=== PATIENT | male | born 1950 | race Caucasian/White ===

== ENCOUNTER 2019-11-02 14:58 | Emergency (ER) | payer MEDICARE, OTHER ==
[~2019-11-02] VITALS: Ht 195.6 cm; Wt 90.7 kg
[2019-11-02 15:04] VITALS: BP 128/80
--- NOTE | 2019-11-02 15:04 | NUR ---
ED Nurse Note: pt brought in LOS am[facility] from [facility] for j tube malfunction. PT also has a G tube, but G tube is patient.
--- NOTE | 2019-11-02 15:22 | NUR ---
ED Nurse Note: ermd at bedside assessing j tube and g tube at this time.
--- NOTE | 2019-11-02 15:46 | NUR ---
ED Nurse Note: g tube placed by ERMD at bedside.
--- NOTE | 2019-11-02 15:49 | Emergency Room Report ---
History of Present Illness General Chief Complaint: Malfunctioning Gastric Tube Source: Patient Present Illness HPI Patient presents with reports of malfunctioning feeding tube upon evaluation and the patient's J-tube does not function appropriately And is not able to be flushed patient himself is on tracheostomy however he is not Ventilator dependent however the patient is nonverbal History of present illness does remain limited there was no reports of vomiting or diarrhea no reports of any fevers Patient relies on the feeding tube for medications and feeding Allergies: Coded Allergies: No Known Allergies (Unverified , 11/02/19) COVID-19 Screening Contact w/high risk pt: No Recent Travel to affected area: No Experienced COVID-19 symptoms?: No COVID-19 symptoms experienced: Cough Patient History Limited by: medical condition Past Medical History: see triage record Reviewed Nursing Documentation: PMH: Agreed; PSxH: Agreed Nursing Documentation-PMH Past Medical History: No History, Except For Hx Hypertension: Yes - a flutter History Of Psychiatric Problem: Yes - anxiety Hx Seizures: Yes Review of Systems All Other Systems: limited - Other than the ones mentioned in the history of present illness all others are reviewed however they do stay limited due to the patient's mental status Physical Exam Vital Signs Date Time Temp Pulse Resp B/P (MAP) Pulse Ox O2 Delivery O2 Flow Rate FiO2 11/02/19 14:58 97.2 89 18 130/80 (97) 97 T-piece 5.0 Sp02 EP Interpretation: reviewed, normal General Appearance: no apparent distress Head: normocephalic, atraumatic Eyes: bilateral eye PERRL ENT: EOM grossly intact Neck: supple, other - Tracheostomy in place no crepitus Respiratory: lungs clear, no respiratory distress, no retraction Cardiovascular #1: regular rate, rhythm Gastrointestinal: non tender, soft, other - JG tube in place Musculoskeletal: other - Chronically debilitated moves upper extremity minimally Neurologic: responsive - Sickle stimuli patient has eyes open Skin: other - No obvious erythema around the feeding tube site Lymphatic: no adenopathy Medical Decision Making Diagnostic Impression: Primary Impression: Malfunction of gastrostomy tube Additional Impression: g tube placement ER Course The JG tube was evaluated the jejunal aspect does not appear to flush The tube does not show any signs of erythema or decay Case was discussed with the patient's Primary physician who is accepting of a new G-tube being placed For the patient to be able to have appropriate care at nursing facility At this time there are no outpatient OR cases being performed And no inpatient capacity at inpatient hospital status with full capacity and significant covid-19 admissions Therefore in the usual manner balloon was deflated from the existing catheter Feeding tube removed area cleansed and prepped A 22 Yemeni G-tube was placed through the stoma without any resistance Balloon inflated and a imaging is obtained for positioning confirmation Patient tolerated procedure well and is transferred back to nursing facility Other X-Ray Diagnostic Results Other X-Ray Diagnostic Results : X-Ray ordered: kub # of Views/Limited Vs Complete: 1 View Indication: Other - tube placement EP Interpretation: Yes Interpretation: no soft tissue swelling, nonspecific bowel gas, other - No signs of extravasation Impression: Other - No signs of extravasation Electronically Signed by: Marline Woodson DO Last Vital Signs Date Time Temp Pulse Resp B/P (MAP) Pulse Ox O2 Delivery O2 Flow Rate FiO2 11/02/19 15:04 97.5 84 18 128/80 98 T-piece 5.0 Status: improved Disposition: SNF Condition: Improved Referrals: Nikita Devlin MD (PCP) Patient Instructions: Gastrostomy Tube Home Guide, Adult Additional Instructions: Please contact primary physician for further orders upon arrival Marline Woodson DO Nov 02, 2019 15:49
--- NOTE | 2019-11-02 16:03 | NUR ---
ED Nurse Note: g tube placement confirmation x ray taken at bedside.
--- NOTE | 2019-11-02 16:55 | Diagnostic Imaging Report ---
Indication: Status post gastrostomy placement Technique: Supine view of the abdomen after injection of water-soluble contrast into gastrostomy Comparison: none Findings: Contrast opacifies the stomach. No contrast extravasation is demonstrated. The bowel gas pattern is unremarkable. An inferior vena cava filter is also noted Impression: Satisfactory position of gastrostomy tube Inferior vena cava filter incidentally noted
[2019-11-02 17:13] VITALS: BP 132/72
--- NOTE | 2019-11-02 17:13 | NUR ---
ED Nurse Note: pt in bed awake, alert, no acute distress is noted. VSS as docuented. pt is currently waiting for transportation to go back to [facility].
--- NOTE | 2019-11-02 18:27 | NUR ---
ED Nurse Note: Pt on bed, awake and alert on stable condition. NAD.
--- NOTE | 2019-11-02 18:50 | NUR ---
ER DISCHARGE NOTE: pt was piced up by [facility] ambulance. pt was then transported to [facility] via [facility] in stable condition. Report given to ambulance personnel.
[2019-11-02 18:52] VITALS: BP 128/76
== END 2019-11-02 18:50 ==
LOC: EDBD 14:58 → EMR 15:22
DX: K94.23 Gastrostomy malfunction (principal); R05 Cough; G40.909 Epilepsy, unspecified, not intractable, without status epilepticus; F41.9 Anxiety disorder, unspecified
CPT/HCPCS: 74018; 99283

== ENCOUNTER 2020-07-13 23:43 | Inpatient (IN) | payer MEDICARE, OTHER ==
[~2020-07-13] VITALS: Ht 162.6 cm; Wt 77.6 kg
--- NOTE | 2020-07-13 23:45 | NUR ---
ED Nurse Note: brought in by ambulance fernandod ra 42 from home c/o respiratory distress. presents with trach shiley 4 uncuffed. per ems, unable to suction trach. rhonchi noted. patient recently dc from snf to home 2 days ago; diagnosed with pna. changed into gown; attached to monitor. pt obtunded; opens eyes spontaneously; unable to track movements; unresponsive to pain. tachycardic 140s; temp 99.3 febrile. rt at bedside; suctioned secretions; spo2 94%. all safety measures met.
--- NOTE | 2020-07-13 23:59 | Emergency Room Report ---
History of Present Illness General Chief Complaint: Dyspnea/Respdistress Source: Medical Record, EMS Present Illness HPI This is a 69-year-old male who has a history of CVA. He is contracted with tracheostomy and a feeding tube. He presents with chief complaint respiratory distress. Patient was recently in a assisted and was taken out by his 2 days ago. According to EMS, she called 911 because he had a hard time suctioning him and his oxygenation was dropping. Unable to get any other history from this patient because of his condition and nonverbal status. No reported fever chills but no reported nausea vomiting or diarrhea. Allergies: Coded Allergies: No Known Allergies (Unverified , 11/02/19) COVID-19 Screening Contact w/high risk pt: No Recent Travel to affected area: No Experienced COVID-19 symptoms?: Yes COVID-19 symptoms experienced: Cough COVID-19 Testing performed DREDGEMASTER: No Patient History Past Medical History: see triage record, old chart reviewed, HTN, AFib, CVA/TIA Past Surgical History: other Pertinent Family History: none Social History: Denies: smoking Immunizations: other Reviewed Nursing Documentation: PMH: Agreed; PSxH: Agreed Nursing Documentation-PMH Hx Hypertension: Yes - a flutter Hx Gastrointestinal Problems: Yes - gerd Hx Seizures: Yes Review of Systems Respiratory: Reports: shortness of breath All Other Systems: limited - Secondary to nonverbal status and medical condition Physical Exam Vital Signs Date Time Temp Pulse Resp B/P (MAP) Pulse Ox O2 Delivery O2 Flow Rate FiO2 07/13/20 23:47 99.3 140 30 140/90 (107) 93 Trach Collar Vitals with hypoxia Sp02 EP Interpretation: reviewed, abnormal General Appearance: alert, mild distress, Chronically Ill Head: normocephalic, atraumatic Eyes: bilateral eye PERRL, bilateral eye EOMI ENT: hearing grossly normal, normal pharynx Neck: no meningismus, tracheotomy - Copious amount of secretion at trach site Respiratory: chest non-tender, rhonchi Cardiovascular #1: regular rate, rhythm, no murmur Gastrointestinal: normal bowel sounds, non tender, no mass, no organomegaly, no bruit, non-distended Musculoskeletal: other - Contracted Neurologic: other Psychiatric: other Medical Decision Making Diagnostic Impression: Primary Impression: HCAP (healthcare-associated pneumonia) Additional Impressions: Acute respiratory failure with hypoxia Pleural effusion, left UTI (urinary tract infection) Qualified Codes: N30.00 - Acute cystitis without hematuria Anemia Qualified Codes: D64.9 - Anemia, unspecified ER Course This patient presents with acute respiratory failure with hypoxia. Chest x-ray show left lower lobe infiltrate and effusion. Covid is negative. Antibiotics given. Will admit for further work-up. I contacted Dr. Devlin for admission. EKG Diagnostic Results Troponin ordered: Yes Rate: tachycardiac Rhythm: NSR ST Segments: other - NSST changes Rhythm Strip Diag. Results Rate: 100 Rhythm: NSR, no PVC's, no ectopy Chest X-Ray Diagnostic Results Chest X-Ray Diagnostic Results : Chest X-Ray Ordered: Yes # of Views/Limited/Complete: 1 View Indication: Shortness of Breath EP Interpretation: Yes Interpretation: no pneumothorax, other - RLL infiltrate and effusion Impression: Other - LLL infiltrate Electronically Signed by: Dylan Farooq MD Last Vital Signs Date Time Temp Pulse Resp B/P (MAP) Pulse Ox O2 Delivery O2 Flow Rate FiO2 07/13/20 23:47 99.3 140 30 140/90 (107) 93 Trach Collar Status: improved Disposition: ADMITTED INPATIENT Condition: Serious Dylan Farooq MD Jul 13, 2020 23:59
[2020-07-14] VITALS (9 sets, daily range): BP systolic 103–140; BP diastolic 50–90
[2020-07-14] MEDS ORDERED: Albuterol ud Inhalation HHN PRN
--- NOTE | 2020-07-14 | NUR ---
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 valles inserted per ermd. blood, initial lactic, blood cultures, urine, mrsa vre cre covid swab collected; sent down to lab. gt present; flushed and patent. skin alterations noted to sacral and bilateral lower legs; wound photo taken and uploaded.
[2020-07-14] MEDS ORDERED: Cefepime HCl 1 GM in D5W 55 ML IVPB ONE (00:15)
[2020-07-14 00:28] LABS: BASOPHILS % (AUTO) 0.7 % (0.0-2.0); EOSINOPHILS % (AUTO) 3.7 % (0.0-3.0); HEMATOCRIT 24.2 % (42.0-52.0); LYMPHOCYTES % (AUTO) 20.6 % (20.0-45.0); MEAN CORPUSCULAR VOLUME 81 FL (80-99); MONOCYTES % (AUTO) 6.8 % (1.0-10.0); NEUTROPHILS % (AUTO) 68.2 % (45.0-75.0); PLATELET COUNT 464 K/UL (150-450); RED BLOOD COUNT 2.98 M/UL (4.70-6.10); RED CELL DISTRIBUTION WIDTH 20.3 % (11.6-14.8); WHITE BLOOD COUNT 7.5 K/UL (4.8-10.8)
[2020-07-14] MEDS ORDERED: CHILDREN'S160 MG/56 GT ×2 (00:35→00:36)
[2020-07-14] MEDS ORDERED: URECHOLINE25 MG GT (00:38)
[2020-07-14] MEDS ORDERED: ATORVASTATIN CA80 MG GT (00:39)
[2020-07-14] MEDS ORDERED: BISACODYL5 MG GT (00:39)
[2020-07-14] MEDS ORDERED: ERTAPENEM1 GM IJ (00:40)
[2020-07-14 00:49] LABS: ANION GAP 3 mmol/L (5-15); BLOOD UREA NITROGEN 23 mg/dL (7-18); CALCIUM 8.6 MG/DL (8.5-10.1); CARBON DIOXIDE 33 MMOL/L (21-32); CHLORIDE 115 MMOL/L (98-107); CREATININE 1.1 MG/DL (0.55-1.30); POTASSIUM 4.3 MMOL/L (3.5-5.1); SODIUM 151 MMOL/L (136-145)
[2020-07-14 00:54] LABS: APPEARANCE,URINE SLIGHTLY CLOUDY; BILIRUBIN, URINE NEGATIVE (NEGATIVE); GLUCOSE, URINE (UA) NEGATIVE (NEGATIVE); KETONES,URINE NEGATIVE (NEGATIVE); LEUKOCYTE ESTERASE ,URINE 3+ (NEGATIVE); NITRITE,URINE NEGATIVE (NEGATIVE); PH,URINE 7 (4.5-8.0); PROTEIN,URINE 2+ (NEGATIVE); UROBILINOGEN,URINE NORMAL MG/DL (0.0-1.0)
--- NOTE | 2020-07-14 00:54 | Diagnostic Imaging Report ---
EXAM: XR Chest, 1 View CLINICAL HISTORY: SOB TECHNIQUE: Frontal view of the chest. COMPARISON: No relevant prior studies available. FINDINGS: Lungs: Hazy left lung attenuation could be due to consolidation, pulmonary edema; correlate with presentation. Retrocardiac atelectasis without or with consolidation. Pleural space: Small-moderate left pleural effusion with passive atelectasis. No pneumothorax. Heart: Unremarkable. No cardiomegaly. Mediastinum: Unremarkable. Bones/joints: No acute abnormality Tubes, lines and devices: Tracheostomy. Right upper extremity PICC tip in the mid SVC. IMPRESSION: 1. Tracheostomy. 2. Right upper extremity PICC tip in the mid SVC. 3. Small-moderate left pleural effusion with passive atelectasis. 4. Hazy left lung attenuation could be due to consolidation, pulmonary edema; correlate with presentation. 5. Retrocardiac atelectasis without or with consolidation. 6. Recommend CT chest with IV contrast to further characterize these findings.
[2020-07-14 00:55] LABS: INR 1.2 (0.9-1.1)
[2020-07-14 01:01] LABS: COLOR,URINE YELLOW
[2020-07-14 01:04] LABS: ALANINE AMINOTRANSFERASE 22 U/L (12-78); ALBUMIN 1.3 G/DL (3.4-5.0); ALBUMIN/GLOBULIN RATIO 0.2 (1.0-2.7); ALKALINE PHOSPHATASE 120 U/L (46-116); ASPARTATE AMINO TRANSFERASE 22 U/L (15-37); BILIRUBIN,TOTAL 0.2 MG/DL (0.2-1.0); CKMB 3.5 NG/ML (0.0-3.6); CREATINE KINASE 252 U/L (26-308); FERRITIN 601 NG/ML (8-388); LACTATE DEHYDROGENASE 122 U/L (81-234)
[2020-07-14] MEDS ORDERED: FAMOTIDINE20 MG GT (01:09)
[2020-07-14] MEDS ORDERED: FERROUS SU220 MG/53 GT (01:11)
[2020-07-14] MEDS ORDERED: ATROPINE SU1 MG/1 M1 SL (01:13)
[2020-07-14] MEDS ORDERED: FLEET ENEMA133 ML RECTAL (01:13)
[2020-07-14] MEDS ORDERED: MILK OF MA2400 MG/10 GT (01:18)
[2020-07-14] MEDS ORDERED: ACIDOPHILUS1 EAC6 GT (01:18)
[2020-07-14] MEDS ORDERED: METOPROLOL TART25 MG GT (01:18)
[2020-07-14] MEDS ORDERED: LEVETIRACETAM500 MG GT (01:18)
[2020-07-14] MEDS ORDERED: PROCHLORPERAZINE5 MG GT (01:21)
[2020-07-14] MEDS ORDERED: TERAZOSIN HCL1 MG GT (01:22)
[2020-07-14] MEDS ORDERED: POLYETHYLENE GL17 GM GT (01:22)
[2020-07-14] MEDS ORDERED: VITAMIN D325 MC1 GT (01:24)
[2020-07-14] MEDS ORDERED: ASCORBIC ACID500 MG GT (01:24)
[2020-07-14] MEDS ORDERED: ZINC SULFATE220 M1 GT (01:25)
[2020-07-14] MEDS ORDERED: Acetaminophen 650mg/20.3ml ONE (01:31)
[2020-07-14] MEDS ORDERED: Acetaminophen 650mg/20.3ml GT ONE (01:45)
[2020-07-14] MEDS ORDERED: Acetaminophen 650 MG SUPP RECTAL PRN ×2 (03:45→13:30)
--- NOTE | 2020-07-14 04:00 | NUR ---
ED Nurse Note: am labs collected; sent down to lab.
[2020-07-14 04:57] LABS: HEMATOCRIT 21.8 % (42.0-52.0); HEMOGLOBIN 7.1 G/DL (14.2-18.0); MEAN CORPUSCULAR VOLUME 81 FL (80-99); PLATELET COUNT 349 K/UL (150-450); RED BLOOD COUNT 2.68 M/UL (4.70-6.10); RED CELL DISTRIBUTION WIDTH 21.3 % (11.6-14.8); WHITE BLOOD COUNT 6.6 K/UL (4.8-10.8)
[2020-07-14 05:10] LABS: ANION GAP 1 mmol/L (5-15); BLOOD UREA NITROGEN 22 mg/dL (7-18); CALCIUM 7.9 MG/DL (8.5-10.1); CARBON DIOXIDE 33 MMOL/L (21-32); CHLORIDE 117 MMOL/L (98-107); CREATININE 1.1 MG/DL (0.55-1.30); POTASSIUM 4.1 MMOL/L (3.5-5.1); SODIUM 151 MMOL/L (136-145)
--- NOTE | 2020-07-14 07:01 | NUR ---
HAND-OFF: Report given to maryjane mcdowell. endorsed pending admission .
--- NOTE | 2020-07-14 07:02 | NUR ---
ED Nurse Note: Received report from Chirag Ramirez RN. Patient resting with eyes close, VSS at this time, all pictures for preassure unlcers were downloaded in to the computer.
--- NOTE | 2020-07-14 09:40 | NUR ---
ED Nurse Note: patient was transfered to room 01
--- NOTE | 2020-07-14 12:57 | History & Physical ---
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 Chief complaint was complaint respiratory distress, had difficulty suctioning patient. No reported fever chills but no reported nausea vomiting or diarrhea. Unable to get any other history - nonverbal status. Admitted with Pneumonia and small left pleural effusion, Covid 19 negative. 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 Past Surgical History: Craniotomy, Tracheostomy, G tube Pertinent Family History: NC Social History: NC All Other Systems: limited Objective Physical Exam Vital Signs Noted Date Time Temp Pulse Resp B/P (MAP) Pulse Ox O2 Delivery O2 Flow Rate FiO2 07/13/20 23:47 99.3 140 30 140/90 (107) 93 Trach Collar General Appearance: alert, mild distress, Chronically Ill Head: normocephalic, atraumatic Eyes: bilateral eye PERRL, bilateral eye EOMI ENT: hearing grossly normal, normal pharynx Neck: no meningismus, tracheotomy - Copious amount of secretion at trach site Respiratory: chest non-tender, rhonchi Cardiovascular: regular rate, rhythm, HS1, HS2 normal,no murmur Gastrointestinal: normal bowel sounds, non tender, no mass, no organomegaly, no bruit, non-distended Musculoskeletal: other - Contracted Neurologic: no focal signs noted,no seizures Medical Decision Making Impression: Healthcare-associated pneumonia Acute respiratory failure with hypoxia Tracheostomy status Pleural effusion, left-recurrent Urinary tract infection Anemia S/p previous Craniotomy, RCA occlusion, 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
--- NOTE | 2020-07-14 13:07 | NUR ---
ED Nurse Note: Patient resting with eyes close, VSS at this time, NAD noted
--- NOTE | 2020-07-14 15:00 | Consultation ---
DATE OF CONSULTATION: 07/14/2020 INFECTIOUS DISEASE CONSULTATION REFERRING PHYSICIAN: Dylan Augustine MD REASON FOR CONSULTATION: Pneumonia. HISTORY OF PRESENTING ILLNESS: This is a 69-year-old gentleman with history of hypertension, atrial fibrillation, CVA, who comes in with respiratory distress. He was found to have a pneumonia. His COVID-19 test is negative and an infectious disease consultation has been obtained for antibiotics. PAST MEDICAL HISTORY: 1. History of hypertension. 2. Atrial fibrillation. 3. CVA. 4. TIA. 5. GERD. SOCIAL HISTORY: Unknown. FAMILY HISTORY: Unknown. REVIEW OF SYSTEMS: Unable to obtain currently. MEDICATIONS: As an inpatient, he is on Tylenol and albuterol. ALLERGIES: No known drug allergies. PHYSICAL EXAMINATION: VITAL SIGNS: Temperature of 98.9, T-max of 99.3, pulse of 107, respiratory rate 28, blood pressure 105/51, O2 saturation of 99% on FiO2 of 40%. Examination deferred due to possibility of COVID-19. LABORATORY DATA: White count 6.6, hemoglobin 7.7, hematocrit 21.8, MCV 81, platelet count 349. Sodium 151, potassium 4.1, chloride 117, bicarb 33, BUN 22, creatinine 1.1, glucose 122, calcium 7.9. Total bilirubin 0.2, AST 22, ALT 22, alkaline phosphatase 120, LDH 122. CK 252, CK-MB 3.5. Troponin 0.052. C-reactive protein 17.5. Beta-natriuretic peptide 2727. Total protein 7.2, albumin 1.3. Lipase of 115. UA showing evl-gvxzaxcp-wp-count white cells. COVID-19 rapid test is negative. Chest x-ray showing small moderate left-sided pleural effusion with passive atelectasis with consolidation, retrocardiac atelectasis. ASSESSMENT: This is a 69-year-old gentleman with history of hypertension, atrial fibrillation, CVA, who comes in with respiratory distress and is found to have: 1. Possible aspiration pneumonia. His COVID-19 test is negative. 2. Urinary tract infection. 3. Hypertension. 4. Atrial fibrillation. PLAN: 1. Continue cefepime. 2. We will follow up cultures and adjust antibiotics accordingly. I would like to thank Dr. Dylan Augustine for this consultation. Kristie Reina M.D. DR: CORBY JOB#: [id number] CC: Dylan Augustine M.D.; [address] [place], [place] [address]; [place] [address]
--- NOTE | 2020-07-14 15:04 | NUR ---
PATIENTS DAUGHTER ANDREAS CALLED WANTED TO BE CALLED WHEN PATIENT GOES TO THE FLOOR TL#
[2020-07-14] MEDS: D5 1/2NS 1,000 ML IV SCH (17:29)
--- NOTE | 2020-07-14 19:18 | NUR ---
HAND-OFF: Report given to SELIN Grace.
--- NOTE | 2020-07-14 19:19 | NUR ---
ED Nurse Note: Patient awake on bed. RT at bedside for routine rounds. No signs of SOB/ noted
[2020-07-14] MEDS: Albuterol/Ipratropium 3ml neb HHN SCH (19:36)
[2020-07-14] MEDS: Atorvastatin 80mg tab ORAL SCH (21:08)
[2020-07-14] MEDS: Cefepime HCl 1 GM in D5W 55 ML IVPB SCH (21:09)
[2020-07-14] MEDS: Heparin 5000 units/ml inj SUBQ SCH (21:11)
[2020-07-14] MEDS: Amiodarone 200mg tab GT SCH (21:33)
[2020-07-14] MEDS: Doxycycline Hyclate 100 MG in D5W 110 ML IV SCH (21:47)
--- NOTE | 2020-07-14 23:10 | NUR ---
ED Nurse Note: Patient transferred to [facility]
[2020-07-15] MEDS: Albuterol/Ipratropium 3ml neb HHN SCH ×4 (00:49→20:14)
--- NOTE | 2020-07-15 02:36 | NUR ---
ED Nurse Note: Patient asleep on bed. No s/sx resp distress noted
[2020-07-15 02:37] VITALS: BP 124/68
[2020-07-15 05:49] VITALS: BP 131/72
--- NOTE | 2020-07-15 05:49 | NUR ---
ED Nurse Note: Admit labs sent
[2020-07-15 06:01] LABS: BASOPHILS % (AUTO) 0.8 % (0.0-2.0); EOSINOPHILS % (AUTO) 4.1 % (0.0-3.0); HEMATOCRIT 27.2 % (42.0-52.0); HEMOGLOBIN 8.4 G/DL (14.2-18.0); LYMPHOCYTES % (AUTO) 16.7 % (20.0-45.0); MEAN CORPUSCULAR VOLUME 85 FL (80-99); MONOCYTES % (AUTO) 6.6 % (1.0-10.0); NEUTROPHILS % (AUTO) 71.8 % (45.0-75.0); PLATELET COUNT 298 K/UL (150-450); RED BLOOD COUNT 3.19 M/UL (4.70-6.10); RED CELL DISTRIBUTION WIDTH 20.1 % (11.6-14.8); WHITE BLOOD COUNT 5.2 K/UL (4.8-10.8)
[2020-07-15 06:35] LABS: ALANINE AMINOTRANSFERASE 16 U/L (12-78); ALBUMIN 1.1 G/DL (3.4-5.0); ALBUMIN/GLOBULIN RATIO 0.2 (1.0-2.7); ALKALINE PHOSPHATASE 80 U/L (46-116); ANION GAP 3 mmol/L (5-15); ASPARTATE AMINO TRANSFERASE 14 U/L (15-37); BILIRUBIN,DIRECT 0.1 MG/DL (0.0-0.3); BILIRUBIN,TOTAL 0.3 MG/DL (0.2-1.0); BLOOD UREA NITROGEN 19 mg/dL (7-18); CARBON DIOXIDE 31 MMOL/L (21-32); CHLORIDE 117 MMOL/L (98-107); CREATININE 0.9 MG/DL (0.55-1.30); PHOSPHORUS 3.4 MG/DL (2.5-4.9); POTASSIUM 3.8 MMOL/L (3.5-5.1); SODIUM 151 MMOL/L (136-145)
--- NOTE | 2020-07-15 06:47 | NUR ---
Note yun in EDM - 07/15/20 at 0648 by [email or web address] ED Nurse Note: Patient transferred to bed 8. Breakfast served.
--- NOTE | 2020-07-15 07:05 | NUR ---
ED Nurse Note: received report from july briggs.
[2020-07-15 07:06] VITALS: BP 132/67
[2020-07-15] MEDS: Heparin 5000 units/ml inj SUBQ SCH (08:20)
[2020-07-15] MEDS: Doxycycline Hyclate 100 MG in D5W 110 ML IV SCH ×2 (08:21→23:12)
[2020-07-15] MEDS: Amiodarone 200mg tab GT SCH ×2 (08:21→21:42)
[2020-07-15] MEDS: Cefepime HCl 1 GM in D5W 55 ML IVPB SCH ×2 (08:22→21:44)
[2020-07-15] MEDS: Carvedilol 6.25mg Tab ORAL SCH ×2 (08:22→21:00)
[2020-07-15 09:28] VITALS: BP 110/56
--- NOTE | 2020-07-15 10:18 | NUR ---
ED Nurse Note: report given to july wilcox on tele unit.
--- NOTE | 2020-07-15 10:20 | NUR ---
ED Nurse Note: patient admitted to tele unit for HCAP. report given to july wilcox. vss at time of discharge, nad noted, on o2 via t-piece 10l with o2 sat at 100%. d51/2 ns running at 50ml/hr.
--- NOTE | 2020-07-15 12:27 | Infectious Diseases Prog Note ---
Assessment/Plan Assessment/Plan A: 1. Possible aspiration pneumonia. COVID19 test is negative. 2. Urinary tract infection. 3. Hypertension. 4. Atrial fibrillation. 5. anemia 6. S/p tracheostomy 7. s/p GT 8. Left pleural effusion PLAN: 1. Continue cefepime & Doxycycline 2. We will follow up cultures . Subjective ROS Limited/Unobtainable: Yes Constitutional: Denies: fever Allergies: Coded Allergies: No Known Allergies (Unverified , 11/02/19) Objective Last 24 Hour Vital Signs Date Time Temp Pulse Resp B/P (MAP) Pulse Ox O2 Delivery O2 Flow Rate FiO2 07/15/20 11:36 95 18 98 T-Piece 8.0 35 07/15/20 11:35 98 T-Piece 8.0 35 07/15/20 10:19 98.9 90 19 110/56 100 10.0 60 07/15/20 09:28 98.9 90 19 110/56 100 10.0 60 07/15/20 08:38 109 15 100 07/15/20 08:37 105 18 100 Cool Aerosol 10.0 60 07/15/20 08:22 102 124/62 07/15/20 08:11 105 18 Trach Collar 10.0 60 07/15/20 07:06 98.9 101 19 132/67 100 T-piece 10.0 35 07/15/20 05:49 98.9 104 20 131/72 100 10.0 35 07/15/20 02:37 98.9 105 20 124/68 100 10.0 35 07/15/20 00:48 84 18 100 T-Piece 10.0 35 81 17 100 07/15/20 00:47 100 T-Piece 10.0 35 07/14/20 23:20 98.9 101 21 131/70 100 10.0 35 07/14/20 19:47 98.9 110 20 129/66 100 10.0 35 07/14/20 19:36 89 20 100 T-Piece 10.0 35 88 22 100 07/14/20 17:10 98.9 102 28 126/65 99 10.0 40 07/14/20 13:07 98.9 100 28 121/61 99 10.0 40 07/14/20 13:00 100 Cool Aerosol 10.0 40 Height (Feet): 5 Height (Inches): 5.00 Weight (Pounds): 150 HEENT: status post trach Respiratory/Chest: lungs clear, other - on T bar Cardiovascular: normal rate, other - PICC line Abdomen: soft, non tender, other - GT feeding Extremities: no edema Skin: ulcers Neurologic/Psychiatric: aphasia, other - opens eyes Microbiology Date/Time Source Procedure Growth Status 07/14/20 00:00 Rectum Received 07/14/20 00:00 Blood Blood Culture - Preliminary NO GROWTH AFTER 24 HOURS Resulted 07/14/20 00:00 Blood Blood Culture - Preliminary NO GROWTH AFTER 24 HOURS Resulted 07/13/20 23:59 Nasopharynx SARS-CoV-2 RdRp Gene Assay - Final Complete 07/13/20 23:45 Urine,Clean Catch Urine Culture - Preliminary NO GROWTH Resulted Laboratory Tests Test 07/15/20 05:30 White Blood Count 5.2 K/UL (4.8-10.8) Red Blood Count 3.19 M/UL (4.70-6.10) L Hemoglobin 8.4 G/DL (14.2-18.0) L Hematocrit 27.2 % (42.0-52.0) L Mean Corpuscular Volume 85 FL (80-99) Mean Corpuscular Hemoglobin 26.4 PG (27.0-31.0) L Mean Corpuscular Hemoglobin Concent 30.9 G/DL (32.0-36.0) L Red Cell Distribution Width 20.1 % (11.6-14.8) H Platelet Count 298 K/UL (150-450) Mean Platelet Volume 5.8 FL (6.5-10.1) L Neutrophils (%) (Auto) 71.8 % (45.0-75.0) Lymphocytes (%) (Auto) 16.7 % (20.0-45.0) L Monocytes (%) (Auto) 6.6 % (1.0-10.0) Eosinophils (%) (Auto) 4.1 % (0.0-3.0) H Basophils (%) (Auto) 0.8 % (0.0-2.0) Sodium Level 151 MMOL/L (136-145) H Potassium Level 3.8 MMOL/L (3.5-5.1) Chloride Level 117 MMOL/L (98-107) H Carbon Dioxide Level 31 MMOL/L (21-32) Anion Gap 3 mmol/L (5-15) L Blood Urea Nitrogen 19 mg/dL (7-18) H Creatinine 0.9 MG/DL (0.55-1.30) Estimat Glomerular Filtration Rate > 60 mL/min (>60) Glucose Level 98 MG/DL (74-106) Calcium Level 8.0 MG/DL (8.5-10.1) L Phosphorus Level 3.4 MG/DL (2.5-4.9) Total Bilirubin 0.3 MG/DL (0.2-1.0) Direct Bilirubin 0.1 MG/DL (0.0-0.3) Aspartate Amino Transf (AST/SGOT) 14 U/L (15-37) L Alanine Aminotransferase (ALT/SGPT) 16 U/L (12-78) Alkaline Phosphatase 80 U/L (46-116) Troponin I 0.032 ng/mL (0.000-0.056) Total Protein 6.2 G/DL (6.4-8.2) L Albumin 1.1 G/DL (3.4-5.0) L Globulin 5.1 g/dL Albumin/Globulin Ratio 0.2 (1.0-2.7) L Thyroid Stimulating Hormone (TSH) 3.318 uiU/mL (0.358-3.740) Current Medications Medications (Trade) Dose Ordered Sig/Clive Route PRN Reason Start Time Stop Time Status Last Admin Dose Admin Acetaminophen (Tylenol) 650 mg Q4H PRN RECTAL Temp >100.5 07/14/20 13:30 08/13/20 13:29 Albuterol Sulfate (Proventil) 2.5 mg Q15MIN PRN HHN Shortness of Breath 07/14/20 00:00 07/14/20 00:03 Albuterol/ Ipratropium (Albuterol/ Ipratropium) 3 ml Q6HRT HHN 07/14/20 19:00 07/19/20 18:59 07/15/20 08:07 Amiodarone HCl (Cordarone) 200 mg Q12HR GT 07/14/20 21:00 10/12/20 20:59 07/15/20 08:21 Atorvastatin Calcium (Lipitor) 80 mg QHS ORAL 07/14/20 21:00 10/12/20 20:59 07/14/20 21:08 Carvedilol (Coreg) 6.25 mg EVERY 12 HOURS ORAL 07/15/20 09:00 08/14/20 08:59 07/15/20 08:22 Cefepime HCl 1 gm/ Dextrose 55 ml @ 110 mls/hr Q12HR IVPB 07/14/20 21:00 07/21/20 20:59 07/15/20 08:22 Dextrose/Sodium Chloride 1,000 ml @ 50 mls/hr Q20H IV 07/14/20 17:30 08/13/20 17:29 07/14/20 17:29 Doxycycline Hyclate 100 mg/ Dextrose 110 ml @ 110 mls/hr Q12HR IV 07/15/20 21:00 07/22/20 20:59 Famotidine (Pepcid I.v.) 20 mg Q12HR IVP 07/14/20 21:00 08/13/20 20:59 07/15/20 08:21 Finasteride (Proscar) 5 mg DAILY ORAL 07/15/20 09:00 10/13/20 08:59 07/15/20 08:21 Heparin Sodium (Porcine) (Heparin 5000 units/ml) 5,000 units EVERY 12 HOURS SUBQ 07/14/20 21:00 08/28/20 20:59 07/15/20 08:20 Levetiracetam (Keppra) 1,000 mg Q12HR ORAL 07/14/20 21:00 08/13/20 20:59 07/15/20 08:21 Steve Nelson MD Jul 15, 2020 12:27
[2020-07-15] MEDS: D5 1/2NS 1,000 ML IV SCH (13:30)
[2020-07-15] MEDS ORDERED: DULCOLAX10 MG RC (14:58)
[2020-07-15] MEDS ORDERED: ELIQUIS5 MG ORAL (14:58)
[2020-07-15] MEDS ORDERED: LEVETIRACE500 MG/51 GT (14:58)
[2020-07-15] MEDS ORDERED: VITAMIN C500 MG/11 PO (14:58)
[2020-07-15] MEDS ORDERED: ACIDOPHILUS1 EAC4 GT (14:58)
[2020-07-15] MEDS ORDERED: ATROPINE SULFAT15 ML SL (14:58)
[2020-07-15] MEDS ORDERED: COMPAZINE10 MG GT (14:58)
[2020-07-15] MEDS ORDERED: PROSCAR5 MG ORAL (14:58)
[2020-07-15 16:00] VITALS: BP 124/63
--- NOTE | 2020-07-15 17:53 | Consultation ---
History of Present Illness General Date patient seen: Jul 14, 2020 Chief Complaint: Dyspnea/Respdistress Reason for Consultation: ams Present Illness HPI Pt well nown to me, was being monitored at home for seizures. called my office that pt become SOB. history of CVA. He is contracted with tracheostomy and a feeding tube. He presents with chief complaint respiratory distress. Patient was recently in a group home and was taken out by his 2 days ago. According to EMS, she called 911 because he had a hard time suctioning him and his oxygenation was dropping. Unable to get any other history from this patient because of his co ndition and nonverbal status. No reported fever chills but no reported nausea vomiting or diarrhea. Allergies: Coded Allergies: No Known Allergies (Unverified , 11/02/19) Medication History Scheduled Acetaminophen Children's* (Tylenol Children's *), 20 ML GT Q4H, (Reported) Apixaban (Eliquis*), 5 MG ORAL BID, (Reported) Atorvastatin Calcium* (Lipitor*), 80 MG GT BEDTIME, (Reported) Bethanechol Chl (Bethanechol Chloride), 50 MG GT FOUR TIMES A DAY, (Reported) Cholecalciferol (Vitamin D3) (Vitamin D3*), 2,000 UNIT GT DAILY, (Reported) Famotidine* (Pepcid 20mg tablet*), 40 MG GT DAILY, (Reported) Finasteride* (Proscar*), 5 MG ORAL DAILY, (Reported) Levetiracetam (Levetiracetam), 10 ML GT BID, (Reported) Magnesium Hydroxide* (Milk Of Magnesia*), 30 ML GT DAILY, (Reported) Metoprolol Tartrate* (Metoprolol Tartrate*), 12.5 MG GT EVERY 12 HOURS, (Reported) Na Phos,M-B/Na Phos,Di-Ba* (Fleet Enema*), 133 ML RECTAL DAILY, (Reported) Terazosin Hcl* (Hytrin*), 2 MG GT BEDTIME, (Reported) Vit C/Ascorbate Ca/Ascorb Sod (Vitamin C 500 Mg/15 Ml Liquid), 500 MG PO DAILY, (Reported) Zinc Sulfate (Zinc Sulfate*), 220 MG GT DAILY, (Reported) Scheduled PRN Bisacodyl (Dulcolax), 10 MG RC DAILY PRN for CONSTIPATION, (Reported) Polyethylene Glycol 3350* (Polyethylene Glycol 3350*), 17 GM GT BEDTIME PRN for Constipation, (Reported) Prochlorperazine (Compazine*), 10 MG GT Q6H PRN for N/V, (Reported) Miscellaneous Medications Atropine Sulfate (Atropine Sulfate), 2 DROP SL, (Reported) Ferrous Sulfate (Ferrous Sulfate), 7.5 ML GT, (Reported) Lactobacillus Acidophilus (Acidophilus), 1 EACH GT, (Reported) Discontinued Medications Acetaminophen Children's* (Tylenol Children's *), 20 ML GT Q4H, (Reported) Discontinued Reason: Therapy completed Ascorbic Acid* (Ascorbic Acid*), 500 MG GT DAILY, (Reported) Discontinued Reason: Prescription changed Atropine Sulfate (Atropine Sulfate), 1 MG SL, (Reported) Discontinued Reason: Prescription changed Bisacodyl* (Dulcolax*), 10 MG GT DAILY, (Reported) Discontinued Reason: Prescription changed Ertapenem Sodium (Ertapenem), 1 GM IJ, (Reported) Discontinued Reason: Therapy completed Levetiracetam* (Levetiracetam*), 10 ML GT TWICE A DAY, (Reported) Discontinued Reason: Prescription changed Prochlorperazine Maleate* (Compazine*), 10 MG GT Q6H, (Reported) Discontinued Reason: Prescription changed Patient History Healthcare decision maker Resuscitation status Advanced Directive on File Physical Exam General Appearance: lethargic Lines, tubes and drains: peripheral HEENT: atraumatic Neck: supple Abdomen: soft Skin Exam: normal pigmentation Musculoskeletal: no effusion Last 24 Hour Vital Signs Date Time Temp Pulse Resp B/P (MAP) Pulse Ox O2 Delivery O2 Flow Rate FiO2 07/15/20 16:00 98.3 85 22 124/63 (83) 98 07/15/20 16:00 104 07/15/20 15:13 T-piece 10.0 07/15/20 13:47 96 18 98 T-Piece 8.0 35 95 17 96 07/15/20 11:36 95 18 98 T-Piece 8.0 35 07/15/20 11:35 98 T-Piece 8.0 35 07/15/20 10:19 98.9 90 19 110/56 100 10.0 60 07/15/20 09:28 98.9 90 19 110/56 100 10.0 60 07/15/20 08:38 109 15 100 07/15/20 08:37 105 18 100 Cool Aerosol 10.0 60 07/15/20 08:22 102 124/62 07/15/20 08:11 105 18 Trach Collar 10.0 60 07/15/20 07:06 98.9 101 19 132/67 100 T-piece 10.0 35 07/15/20 05:49 98.9 104 20 131/72 100 10.0 35 07/15/20 02:37 98.9 105 20 124/68 100 10.0 35 07/15/20 00:48 84 18 100 T-Piece 10.0 35 81 17 100 07/15/20 00:47 100 T-Piece 10.0 35 07/14/20 23:20 98.9 101 21 131/70 100 10.0 35 07/14/20 19:47 98.9 110 20 129/66 100 10.0 35 07/14/20 19:36 89 20 100 T-Piece 10.0 35 88 22 100 Intake and Output 07/14/20 07/15/20 19:00 07:00 Intake Total 700 ml Output Total 950 ml Balance -250 ml Intake Free Water 100 ml IV Total 600 ml Output Urine Total 950 ml Laboratory Tests Test 07/15/20 05:30 White Blood Count 5.2 K/UL (4.8-10.8) Red Blood Count 3.19 M/UL (4.70-6.10) L Hemoglobin 8.4 G/DL (14.2-18.0) L Hematocrit 27.2 % (42.0-52.0) L Mean Corpuscular Volume 85 FL (80-99) Mean Corpuscular Hemoglobin 26.4 PG (27.0-31.0) L Mean Corpuscular Hemoglobin Concent 30.9 G/DL (32.0-36.0) L Red Cell Distribution Width 20.1 % (11.6-14.8) H Platelet Count 298 K/UL (150-450) Mean Platelet Volume 5.8 FL (6.5-10.1) L Neutrophils (%) (Auto) 71.8 % (45.0-75.0) Lymphocytes (%) (Auto) 16.7 % (20.0-45.0) L Monocytes (%) (Auto) 6.6 % (1.0-10.0) Eosinophils (%) (Auto) 4.1 % (0.0-3.0) H Basophils (%) (Auto) 0.8 % (0.0-2.0) Sodium Level 151 MMOL/L (136-145) H Potassium Level 3.8 MMOL/L (3.5-5.1) Chloride Level 117 MMOL/L (98-107) H Carbon Dioxide Level 31 MMOL/L (21-32) Anion Gap 3 mmol/L (5-15) L Blood Urea Nitrogen 19 mg/dL (7-18) H Creatinine 0.9 MG/DL (0.55-1.30) Estimat Glomerular Filtration Rate > 60 mL/min (>60) Glucose Level 98 MG/DL (74-106) Calcium Level 8.0 MG/DL (8.5-10.1) L Phosphorus Level 3.4 MG/DL (2.5-4.9) Total Bilirubin 0.3 MG/DL (0.2-1.0) Direct Bilirubin 0.1 MG/DL (0.0-0.3) Aspartate Amino Transf (AST/SGOT) 14 U/L (15-37) L Alanine Aminotransferase (ALT/SGPT) 16 U/L (12-78) Alkaline Phosphatase 80 U/L (46-116) Troponin I 0.032 ng/mL (0.000-0.056) Total Protein 6.2 G/DL (6.4-8.2) L Albumin 1.1 G/DL (3.4-5.0) L Globulin 5.1 g/dL Albumin/Globulin Ratio 0.2 (1.0-2.7) L Thyroid Stimulating Hormone (TSH) 3.318 uiU/mL (0.358-3.740) Height (Feet): 5 Height (Inches): 5.00 Weight (Pounds): 150 Medications Current Medications Medications (Trade) Dose Ordered Sig/Clive Route PRN Reason Start Time Stop Time Status Last Admin Dose Admin Acetaminophen (Tylenol) 650 mg Q4H PRN RECTAL Temp >100.5 07/14/20 13:30 08/13/20 13:29 Albuterol/ Ipratropium (Albuterol/ Ipratropium) 3 ml Q6HRT HHN 12/28/20 19:00 07/19/20 18:59 07/15/20 13:00 Amiodarone HCl (Cordarone) 200 mg Q12HR GT 07/14/20 21:00 10/12/20 20:59 07/15/20 08:21 Atorvastatin Calcium (Lipitor) 80 mg QHS ORAL 07/14/20 21:00 10/12/20 20:59 07/14/20 21:08 Carvedilol (Coreg) 6.25 mg EVERY 12 HOURS ORAL 07/15/20 09:00 08/14/20 08:59 07/15/20 08:22 Cefepime HCl 1 gm/ Dextrose 55 ml @ 110 mls/hr Q12HR IVPB 07/14/20 21:00 07/21/20 20:59 07/15/20 08:22 Dextrose/Sodium Chloride 1,000 ml @ 50 mls/hr Q20H IV 07/14/20 17:30 08/13/20 17:29 07/14/20 17:29 Doxycycline Hyclate 100 mg/ Dextrose 110 ml @ 110 mls/hr Q12HR IV 07/15/20 21:00 07/22/20 20:59 Famotidine (Pepcid I.v.) 20 mg Q12HR IVP 07/14/20 21:00 08/13/20 20:59 07/15/20 08:21 Finasteride (Proscar) 5 mg DAILY ORAL 07/15/20 09:00 10/13/20 08:59 07/15/20 08:21 Heparin Sodium (Porcine) (Heparin 5000 units/ml) 5,000 units EVERY 12 HOURS SUBQ 07/14/20 21:00 08/28/20 20:59 07/15/20 08:20 Levetiracetam (Keppra) 1,000 mg Q12HR ORAL 07/14/20 21:00 08/13/20 20:59 07/15/20 08:21 Objective Narrative Head: normocophalic Neck: no rigidity EENT: benign Neurologic Exam Objective lethargic, pupils reactive not following withdraws to pain Assessment/Plan Problem List: (1) Malfunction of gastrostomy tube ICD Codes: K94.23 - Gastrostomy malfunction SNOMED: 845877950 (2) Anemia ICD Codes: D64.9 - Anemia, unspecified SNOMED: 198192682, 428135342 Qualifiers: Qualified Codes: D64.9 - Anemia, unspecified (3) Pleural effusion, left ICD Codes: J90 - Pleural effusion, not elsewhere classified SNOMED: 61087821, 343844847 (4) Acute respiratory failure with hypoxia ICD Codes: J96.01 - Acute respiratory failure with hypoxia SNOMED: 19954545, 862286994 (5) HCAP (healthcare-associated pneumonia) ICD Codes: J18.9 - Pneumonia, unspecified organism SNOMED: 875700377, 323977479 (6) UTI (urinary tract infection) ICD Codes: N39.0 - Urinary tract infection, site not specified SNOMED: 00049624, 260225146 Qualifiers: Qualified Codes: N30.00 - Acute cystitis without hematuria Assessment/Plan: (1) Malfunction of gastrostomy tube (2) Anemia (3) Pleural effusion, left (4) Acute respiratory failure with hypoxia (5) HCAP (healthcare-associated pneumonia) (6) UTI (urinary tract infection) Recurrent sepsis Possible aspiration Encephalopathy, acute on chronic rule out seizures map > 65 ro covid cont atb fu cultures no need for AED now Gerson Singh MD Jul 15, 2020 17:53
--- NOTE | 2020-07-15 18:12 | Pulmonology Progress Note ---
Subjective ROS Limited/Unobtainable: Yes Constitutional: Denies: fever Allergies: Coded Allergies: No Known Allergies (Unverified , 11/02/19) Objective Last 24 Hour Vital Signs Date Time Temp Pulse Resp B/P (MAP) Pulse Ox O2 Delivery O2 Flow Rate FiO2 07/15/20 16:00 98.3 85 22 124/63 (83) 98 07/15/20 16:00 104 07/15/20 15:13 T-piece 10.0 07/15/20 13:47 96 18 98 T-Piece 8.0 35 95 17 96 07/15/20 11:36 95 18 98 T-Piece 8.0 35 07/15/20 11:35 98 T-Piece 8.0 35 07/15/20 10:19 98.9 90 19 110/56 100 10.0 60 07/15/20 09:28 98.9 90 19 110/56 100 10.0 60 07/15/20 08:38 109 15 100 07/15/20 08:37 105 18 100 Cool Aerosol 10.0 60 07/15/20 08:22 102 124/62 07/15/20 08:11 105 18 Trach Collar 10.0 60 07/15/20 07:06 98.9 101 19 132/67 100 T-piece 10.0 35 07/15/20 05:49 98.9 104 20 131/72 100 10.0 35 07/15/20 02:37 98.9 105 20 124/68 100 10.0 35 07/15/20 00:48 84 18 100 T-Piece 10.0 35 81 17 100 07/15/20 00:47 100 T-Piece 10.0 35 07/14/20 23:20 98.9 101 21 131/70 100 10.0 35 07/14/20 19:47 98.9 110 20 129/66 100 10.0 35 07/14/20 19:36 89 20 100 T-Piece 10.0 35 88 22 100 Intake and Output 07/14/20 07/15/20 19:00 07:00 Intake Total 700 ml Output Total 950 ml Balance -250 ml Intake Free Water 100 ml IV Total 600 ml Output Urine Total 950 ml Microbiology Date/Time Source Procedure Growth Status 07/14/20 00:00 Rectum Received 07/14/20 00:00 Blood Blood Culture - Preliminary Resulted 07/14/20 00:00 Blood Blood Culture - Preliminary Resulted 07/13/20 23:59 Nasopharynx SARS-CoV-2 RdRp Gene Assay - Final Complete 07/13/20 23:45 Urine,Clean Catch Urine Culture - Preliminary NO GROWTH Resulted Laboratory Tests 07/15/20 05:30: White Blood Count 5.2, Red Blood Count 3.19L, Hemoglobin 8.4L, Hematocrit 27.2L, Mean Corpuscular Volume 85, Mean Corpuscular Hemoglobin 26.4L, Mean Corpuscular Hemoglobin Concent 30.9L, Red Cell Distribution Width 20.1H, Platelet Count 298, Mean Platelet Volume 5.8L, Neutrophils (%) (Auto) 71.8, Lymphocytes (%) (Auto) 16.7L, Monocytes (%) (Auto) 6.6, Eosinophils (%) (Auto) 4.1H, Basophils (%) (Auto) 0.8, Sodium Level 151H, Potassium Level 3.8, Chloride Level 117H, Carbon Dioxide Level 31, Anion Gap 3L, Blood Urea Nitrogen 19H, Creatinine 0.9, Estimat Glomerular Filtration Rate > 60, Glucose Level 98, Calcium Level 8.0L, Phosphorus Level 3.4, Total Bilirubin 0.3, Direct Bilirubin 0.1, Aspartate Amino Transf (AST/SGOT) 14L, Alanine Aminotransferase (ALT/SGPT) 16, Alkaline Phosphatase 80, Troponin I 0.032, Total Protein 6.2L, Albumin 1.1L, Globulin 5.1, Albumin/Globulin Ratio 0.2L, Thyroid Stimulating Hormone (TSH) 3.318 Current Medications Medications (Trade) Dose Ordered Sig/Clive Route PRN Reason Start Time Stop Time Status Last Admin Dose Admin Acetaminophen (Tylenol) 650 mg Q4H PRN RECTAL Temp >100.5 07/14/20 13:30 08/13/20 13:29 Albuterol/ Ipratropium (Albuterol/ Ipratropium) 3 ml Q6HRT HHN 07/14/20 19:00 07/19/20 18:59 07/15/20 13:00 Amiodarone HCl (Cordarone) 200 mg Q12HR GT 07/14/20 21:00 10/12/20 20:59 07/15/20 08:21 Atorvastatin Calcium (Lipitor) 80 mg QHS ORAL 07/14/20 21:00 10/12/20 20:59 07/14/20 21:08 Carvedilol (Coreg) 6.25 mg EVERY 12 HOURS ORAL 07/15/20 09:00 08/14/20 08:59 07/15/20 08:22 Cefepime HCl 1 gm/ Dextrose 55 ml @ 110 mls/hr Q12HR IVPB 07/14/20 21:00 07/21/20 20:59 07/15/20 08:22 Dextrose/Sodium Chloride 1,000 ml @ 75 mls/hr [id number] IV 07/14/20 17:30 08/13/20 17:29 07/14/20 17:29 Doxycycline Hyclate 100 mg/ Dextrose 110 ml @ 110 mls/hr Q12HR IV 07/15/20 21:00 07/22/20 20:59 Famotidine (Pepcid I.v.) 20 mg Q12HR IVP 07/14/20 21:00 08/13/20 20:59 07/15/20 08:21 Finasteride (Proscar) 5 mg DAILY ORAL 07/15/20 09:00 10/13/20 08:59 07/15/20 08:21 Heparin Sodium (Porcine) (Heparin 5000 units/ml) 5,000 units EVERY 12 HOURS SUBQ 07/14/20 21:00 08/28/20 20:59 07/15/20 08:20 Levetiracetam (Keppra) 1,000 mg Q12HR ORAL 07/14/20 21:00 08/13/20 20:59 07/15/20 08:21 Assessment/Plan Assessment/Plan Pulmonary Progress Note Subjective HPI: Patient is a 69 year old man, Tracheostomy status, s/p previous Craniotomy, RCA occlusion, CLINICAL EDITOR shunt, has Seizure history, GERD, GJ tube, h/o Hypertension, Atrial fibrillation,previous anemia, previous DVT and Pulmonary Embolism, recurrent left Pleural effusion. Chief complaint was complaint respiratory distr ess, had difficulty suctioning patient. No reported fever chills but no reported nausea vomiting or diarrhea. Nonverbal status. Admitted with Pneumonia and small left pleural effusion, Covid 19 negative. Allergies: No Known Allergies Medications: Noted Past Medical History: Tracheostomy status, s/p previous Craniotomy, RCA occlusion, CLINICAL EDITOR shunt, has Seizure history, GERD, GJ tube, h/o Hypertension, Atrial fibrillation,previous anemia, previous DVT and Pulmonary Embolism, recurrent left Pleural effusion. Past Surgical History: Craniotomy, Tracheostomy, G tube Pertinent Family History: NC Social History: NC All Other Systems: limited Objective Physical Exam Vital Signs Noted General Appearance: alert, mild distress, Chronically Ill Head: normocephalic, atraumatic Eyes: bilateral eye PERRL, bilateral eye EOMI ENT: hearing grossly normal, normal pharynx Neck: no meningismus, tracheotomy - Copious amount of secretion at trach site Respiratory: chest non-tender, rhonchi Cardiovascular: regular rate, rhythm, HS1, HS2 normal,no murmur Gastrointestinal: normal bowel sounds, non tender, no mass, no organomegaly, no bruit, non-distended Musculoskeletal: other - Contracted Neurologic: no focal signs noted,no seizures Medical Decision Making Impression: Healthcare-associated pneumonia Acute respiratory failure with hypoxia Tracheostomy status Pleural effusion, left-recurrent Urinary tract infection Anemia S/p previous Craniotomy, RCA occlusion, CLINICAL EDITOR shunt Seizure history GERD, dysphagia s/p GJ tube h/o Hypertension h/o Atrial fibrillation Previous DVT and Pulmonary Embolism, Plan IV Antibiotics IVF PRN J tube feeds O2 PRN HHN ID Consultation Neurology following Cardiology Consultation 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
[2020-07-15] MEDS: Eliquis 5mg tablet GT SCH (18:31)
--- NOTE | 2020-07-15 19:30 | NUR ---
NURSE NOTES: Received report from SELIN Junior; pt awake, non-verbal; noted asleep in room, opens eyes spontaneously; on tracheostomy 10L FiO2 35%, in no acute distress; MRSA, VRE, CRE swabs still pending; NPO on GT feeding Jevity 1.2 with goal of 60cc/hr; currently @ 40cc/hr; tolerating well without residual; with Right upper arm PICC line single lumen; with dressing intact and aptent infusing D51/2 ns @ 50CC/HR; WITH MULTIPLE SKIN PRESSURE ULCERS; WITH DRESSING INTACT; on turning and repositioning q 2 hrs; aspiration and seizure precautions with both upper side rails padded; no episode of seizures at this time; also with f/c 16 fr PLACED ON 07/14, INTACT AND PATENT DRAINING CKLEAR YELLOW URINE; will continue to monitor.
--- NOTE | 2020-07-15 19:31 | NUR ---
NURSE HAND-OFF REPORT: Important Events on Shift:[New admission, ] Patient Status: [Full code] Diet: [Jevity 1.2 @ 40cc/hr] Pending Orders: [] Pending Results/Labs:[] Pending MD notification:[] Latest Vital Signs: Temperature 98.3 , Pulse 104 , B/P 124 /63 , Respiratory Rate 22 , O2 SAT 98 , Trach Collar, O2 Flow Rate 10.0 . Vital Sign Comment: [] EKG Rhythm: Sinus Tachycardia Rhythm change?: N MD Notified?: - MD Response: Latest Ramirez Fall Score: 50 Fall Risk: High Risk Safety Measures: Call light , Bed Alarm Zone 2, Side Rails Side Rails x3, Bed position Low and Locked. Fall Precautions: Yellow Socks Yellow Gown Patient Fall Education Report given to [SELIN Squires].
--- NOTE | 2020-07-15 19:32 | NUR ---
NURSE NOTES: Patient came with Brain wave monitor from [facility]. Dr. Lang called and asked for patient to be disconnected and to give monitor to Yemi durability technician. Yemi came and picked up monitor.
[2020-07-15 20:00] VITALS: BP 107/60
[2020-07-15] MEDS: Atorvastatin 80mg tab ORAL SCH (21:42)
--- NOTE | 2020-07-15 23:37 | Cardiology Progress Note ---
Subjective DATE OF SERVICE: Jul 15, 2020 Withdrawn and poorly responsive Monitor: Sinus arrhythmia with PAC's and paroxysms of AFib. Troponins now normalized. Objective Last 24 Hour Vital Signs Date Time Temp Pulse Resp B/P (MAP) Pulse Ox O2 Delivery O2 Flow Rate FiO2 07/15/20 21:00 107 107/60 07/15/20 20:14 100 T-Piece 8.0 35 07/15/20 20:14 89 18 100 T-Piece 8.0 35 88 18 100 07/15/20 16:00 98.3 85 22 124/63 (83) 98 07/15/20 16:00 104 07/15/20 15:13 T-piece 10.0 07/15/20 13:47 96 18 98 T-Piece 8.0 35 95 17 96 07/15/20 11:36 95 18 98 T-Piece 8.0 35 07/15/20 11:35 98 T-Piece 8.0 35 07/15/20 10:19 98.9 90 19 110/56 100 10.0 60 07/15/20 09:28 98.9 90 19 110/56 100 10.0 60 07/15/20 08:38 109 15 100 07/15/20 08:37 105 18 100 Cool Aerosol 10.0 60 07/15/20 08:22 102 124/62 07/15/20 08:11 105 18 Trach Collar 10.0 60 07/15/20 07:06 98.9 101 19 132/67 100 T-piece 10.0 35 07/15/20 05:49 98.9 104 20 131/72 100 10.0 35 07/15/20 02:37 98.9 105 20 124/68 100 10.0 35 07/15/20 00:48 84 18 100 T-Piece 10.0 35 81 17 100 07/15/20 00:47 100 T-Piece 10.0 35 ROS: unchanged from 07/14/20 HEENT: Thick Trach secretions RHYTHM: NSR, ST, PACs, Afib LUNGS: bilateral rhonchi CARDIAC: normal S1 and S2, rapid rate, arrhythmia ABDOMEN: normal bowel sounds, soft, G-Tube intact EXTREMITIES: normal range of motion, non-tender, trace edema, other - withdrawn Laboratory Tests Test 07/15/20 05:30 White Blood Count 5.2 K/UL (4.8-10.8) Red Blood Count 3.19 M/UL (4.70-6.10) L Hemoglobin 8.4 G/DL (14.2-18.0) L Hematocrit 27.2 % (42.0-52.0) L Mean Corpuscular Volume 85 FL (80-99) Mean Corpuscular Hemoglobin 26.4 PG (27.0-31.0) L Mean Corpuscular Hemoglobin Concent 30.9 G/DL (32.0-36.0) L Red Cell Distribution Width 20.1 % (11.6-14.8) H Platelet Count 298 K/UL (150-450) Mean Platelet Volume 5.8 FL (6.5-10.1) L Neutrophils (%) (Auto) 71.8 % (45.0-75.0) Lymphocytes (%) (Auto) 16.7 % (20.0-45.0) L Monocytes (%) (Auto) 6.6 % (1.0-10.0) Eosinophils (%) (Auto) 4.1 % (0.0-3.0) H Basophils (%) (Auto) 0.8 % (0.0-2.0) Sodium Level 151 MMOL/L (136-145) H Potassium Level 3.8 MMOL/L (3.5-5.1) Chloride Level 117 MMOL/L (98-107) H Carbon Dioxide Level 31 MMOL/L (21-32) Anion Gap 3 mmol/L (5-15) L Blood Urea Nitrogen 19 mg/dL (7-18) H Creatinine 0.9 MG/DL (0.55-1.30) Estimat Glomerular Filtration Rate > 60 mL/min (>60) Glucose Level 98 MG/DL (74-106) Calcium Level 8.0 MG/DL (8.5-10.1) L Phosphorus Level 3.4 MG/DL (2.5-4.9) Total Bilirubin 0.3 MG/DL (0.2-1.0) Direct Bilirubin 0.1 MG/DL (0.0-0.3) Aspartate Amino Transf (AST/SGOT) 14 U/L (15-37) L Alanine Aminotransferase (ALT/SGPT) 16 U/L (12-78) Alkaline Phosphatase 80 U/L (46-116) Troponin I 0.032 ng/mL (0.000-0.056) Total Protein 6.2 G/DL (6.4-8.2) L Albumin 1.1 G/DL (3.4-5.0) L Globulin 5.1 g/dL Albumin/Globulin Ratio 0.2 (1.0-2.7) L Thyroid Stimulating Hormone (TSH) 3.318 uiU/mL (0.358-3.740) Microbiology Date/Time Source Procedure Growth Status 07/14/20 00:00 Rectum Received 07/14/20 00:00 Blood Blood Culture - Preliminary Resulted 07/14/20 00:00 Blood Blood Culture - Preliminary Resulted 07/13/20 23:59 Nasopharynx SARS-CoV-2 RdRp Gene Assay - Final Complete 07/13/20 23:45 Urine,Clean Catch Urine Culture - Preliminary NO GROWTH Resulted Assessment/Plan Assessment/Plan Healthcare associated PNA Paroxysmal atrial fibrillation Paroxysmal atrial ectopy 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 Dyslipidemia on high dose statinDehydration/hypernatremia Severe protein-caorie malnutrition Abx Resp support Cardiac monitoring Continue full anticoagulation Check lipid panel; reassess statin dose Amiodarone at loading dose; check TSH. Dylan Mak MD Jul 15, 2020 23:37
[2020-07-16] VITALS: BP 107/61
[2020-07-16] MEDS: Albuterol/Ipratropium 3ml neb HHN SCH ×4 (01:28→19:40)
[2020-07-16 04:00] VITALS: BP 122/62
--- NOTE | 2020-07-16 05:04 | Cardiology Progress Note ---
Subjective DATE OF SERVICE: Jul 16, 2020 Withdrawn but alert with spontaneous eye movements. Monitor: Sinus arrhythmia with PAC's and paroxysms of AFib. Troponins now normalized Objective Last 24 Hour Vital Signs Date Time Temp Pulse Resp B/P (MAP) Pulse Ox O2 Delivery O2 Flow Rate FiO2 07/16/20 01:28 100 T-Piece 8.0 35 07/16/20 01:28 95 18 100 T-Piece 8.0 35 97 18 100 07/16/20 00:00 99.0 110 22 107/61 (76) 93 07/16/20 00:00 104 07/15/20 21:00 107 107/60 07/15/20 21:00 Trach Collar 10.0 07/15/20 20:14 100 T-Piece 8.0 35 07/15/20 20:14 89 18 100 T-Piece 8.0 35 88 18 100 07/15/20 20:00 107 07/15/20 20:00 98.7 107 20 107/60 (76) 97 07/15/20 16:00 98.3 85 22 124/63 (83) 98 07/15/20 16:00 104 07/15/20 15:13 T-piece 10.0 07/15/20 13:47 96 18 98 T-Piece 8.0 35 95 17 96 07/15/20 11:36 95 18 98 T-Piece 8.0 35 07/15/20 11:35 98 T-Piece 8.0 35 07/15/20 10:19 98.9 90 19 110/56 100 10.0 60 07/15/20 09:28 98.9 90 19 110/56 100 10.0 60 07/15/20 08:38 109 15 100 07/15/20 08:37 105 18 100 Cool Aerosol 10.0 60 07/15/20 08:22 102 124/62 07/15/20 08:11 105 18 Trach Collar 10.0 60 07/15/20 07:06 98.9 101 19 132/67 100 T-piece 10.0 35 07/15/20 05:49 98.9 104 20 131/72 100 10.0 35 ROS: unchanged from 07/14/20 HEENT: Thick Trach secretions RHYTHM: NSR, ST, PACs, Afib LUNGS: bilateral rhonchi CARDIAC: normal S1 and S2, rapid rate, arrhythmia ABDOMEN: normal bowel sounds, soft, G-Tube intact EXTREMITIES: normal range of motion, non-tender, trace edema, other - withdrawn Laboratory Tests Test 07/15/20 05:30 White Blood Count 5.2 K/UL (4.8-10.8) Red Blood Count 3.19 M/UL (4.70-6.10) L Hemoglobin 8.4 G/DL (14.2-18.0) L Hematocrit 27.2 % (42.0-52.0) L Mean Corpuscular Volume 85 FL (80-99) Mean Corpuscular Hemoglobin 26.4 PG (27.0-31.0) L Mean Corpuscular Hemoglobin Concent 30.9 G/DL (32.0-36.0) L Red Cell Distribution Width 20.1 % (11.6-14.8) H Platelet Count 298 K/UL (150-450) Mean Platelet Volume 5.8 FL (6.5-10.1) L Neutrophils (%) (Auto) 71.8 % (45.0-75.0) Lymphocytes (%) (Auto) 16.7 % (20.0-45.0) L Monocytes (%) (Auto) 6.6 % (1.0-10.0) Eosinophils (%) (Auto) 4.1 % (0.0-3.0) H Basophils (%) (Auto) 0.8 % (0.0-2.0) Sodium Level 151 MMOL/L (136-145) H Potassium Level 3.8 MMOL/L (3.5-5.1) Chloride Level 117 MMOL/L (98-107) H Carbon Dioxide Level 31 MMOL/L (21-32) Anion Gap 3 mmol/L (5-15) L Blood Urea Nitrogen 19 mg/dL (7-18) H Creatinine 0.9 MG/DL (0.55-1.30) Estimat Glomerular Filtration Rate > 60 mL/min (>60) Glucose Level 98 MG/DL (74-106) Calcium Level 8.0 MG/DL (8.5-10.1) L Phosphorus Level 3.4 MG/DL (2.5-4.9) Total Bilirubin 0.3 MG/DL (0.2-1.0) Direct Bilirubin 0.1 MG/DL (0.0-0.3) Aspartate Amino Transf (AST/SGOT) 14 U/L (15-37) L Alanine Aminotransferase (ALT/SGPT) 16 U/L (12-78) Alkaline Phosphatase 80 U/L (46-116) Troponin I 0.032 ng/mL (0.000-0.056) Total Protein 6.2 G/DL (6.4-8.2) L Albumin 1.1 G/DL (3.4-5.0) L Globulin 5.1 g/dL Albumin/Globulin Ratio 0.2 (1.0-2.7) L Thyroid Stimulating Hormone (TSH) 3.318 uiU/mL (0.358-3.740) Microbiology Date/Time Source Procedure Growth Status 07/14/20 00:00 Rectum Received 07/14/20 00:00 Blood Blood Culture - Preliminary Resulted 07/14/20 00:00 Blood Blood Culture - Preliminary Resulted 07/13/20 23:59 Nasopharynx SARS-CoV-2 RdRp Gene Assay - Final Complete 07/13/20 23:45 Urine,Clean Catch Urine Culture - Preliminary NO GROWTH Resulted Assessment/Plan Assessment/Plan Healthcare associated PNA Paroxysmal atrial fibrillation Paroxysmal atrial ectopy Hx ICB with craniotomy and 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 Dyslipidemia on high dose statinDehydration/hypernatremia Severe protein-caorie malnutrition Abx Resp support Cardiac monitoring Continue full anticoagulation Await lipid panel; reassess statin dose Amiodarone at loading dose; check TSH. Dylan Mak MD Jul 16, 2020 05:04
[2020-07-16] MEDS: D5 1/2NS 1,000 ML IV SCH ×2 (05:12→18:20)
--- NOTE | 2020-07-16 07:15 | NUR ---
NURSE HAND-OFF REPORT: Important Events on Shift: Multiple pressure ulcer sites, dressing changed, Jevity 1.2 @ goal rate 60cc/hr Patient Status: AOX0, nonverbal Diet: NPO, Jevity 1.2 @ 60cc/hr Pending Orders: N Pending Results/Labs: AM labs Pending MD notification: N Latest Vital Signs: Temperature 98.6 , Pulse 99 , B/P 122 /62 , Respiratory Rate 20 , O2 SAT 100 , Trach Collar, O2 Flow Rate 8.0 . Vital Sign Comment: stable EKG Rhythm: Sinus Rhythm Rhythm change?: N MD Notified?: - MD Response: Latest Ramirez Fall Score: 50 Fall Risk: High Risk Safety Measures: Call light Within Reach, Bed Alarm Zone 1, Side Rails Side Rails x3, Bed position Low and Locked. Fall Precautions: Yellow Socks Yellow Gown Patient Fall Education Report given to SELIN Koch.
--- NOTE | 2020-07-16 07:59 | Consultation ---
DATE OF CONSULTATION: 07/14/2020 CARDIOLOGY CONSULTATION CONSULTING PHYSICIAN: Dylan Mak MD REQUESTING PHYSICIAN: Nikita Devlin MD REASON FOR CONSULTATION: Elevated troponin level and atrial arrhythmias. 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 He has a tracheostomy as well. He presented to the emergency room with congestion and severe increasing secretions. COVID-19 swab was negative. The patient was noted to have signs of an acute healthcare-associated pneumonia. Cardiology consultation is requested to address his elevated troponin level and irregular heartbeats. PAST MEDICAL HISTORY: Respiratory failure, tracheostomy, history of craniotomy, chronic encephalopathy, history of CVA, history of DVT and pulmonary embolus on chronic anticoagulation, seizure disorder, gastroesophageal reflux disease, GJ tube for dysphagia, history of hypertension, paroxysmal atrial fibrillation, and anemia. ALLERGIES: None. MEDICATIONS: Reviewed. SOCIAL HISTORY: Not obtainable at this time. REVIEW OF SYSTEMS: Cannot be obtained. Twenty minutes' time was spent reviewing available records, prior hospitalizations, and [facility] chart. PHYSICAL EXAMINATION: VITAL SIGNS: Temperature 99.3, blood pressure 140/90, heart rate 140, respiratory rate 30, oxygen saturation is 93% on trach collar. GENERAL: Ill-appearing, noncommunicative. NECK: Thick trach secretions. LUNGS: Bilateral rhonchi. CARDIAC: Regular rhythm. Rapid rate. Normal S1, S2 with ectopic beats. No murmur appreciated. ABDOMEN: Soft. GJ tube intact. EXTREMITIES: With contractures and trace edema. LABORATORY DATA: EKG, sinus tachycardia, atrial ectopy, nonspecific ST-T wave changes. Chest x-ray with bilateral infiltrates. Labs, white count 6.6, hemoglobin 7.1. Sodium 151, potassium 4.1, bicarb 33, BUN 22, creatinine 1.1. Initial troponin level was 0.052 with natriuretic peptide of 2700. IMPRESSION: Healthcare-associated pneumonia, history of DVT and pulmonary embolus on full anticoagulation, no signs of acute myocardial infarction, chronic diastolic congestive heart failure, chronic encephalopathy, paroxysmal atrial fibrillation on amiodarone, paroxysmal atrial ectopy, respiratory failure with trach, dehydration, hypernatremia, and hypovolemia. PLAN: Panculture. Empiric antimicrobials. Respiratory hygiene. Hypotonic IV fluids. Monitor and replace potassium and magnesium as needed. Continue full anticoagulation. Continue amiodarone at loading dose. We will need to review from old records when it was started and adjust dose accordingly. Consideration for calcium-ezekiel will be made for additional arrhythmia suppression if needed. We will follow. Dylan Mak M.D. DR: Nando JOB#: [id number] CC:
[2020-07-16 08:00] VITALS: BP 116/80
[2020-07-16 08:02] LABS: BASOPHILS % (AUTO) 0.7 % (0.0-2.0); HEMATOCRIT 25.1 % (42.0-52.0); MEAN CORPUSCULAR VOLUME 82 FL (80-99); MONOCYTES % (AUTO) 5.5 % (1.0-10.0); NEUTROPHILS % (AUTO) 67.8 % (45.0-75.0); PLATELET COUNT 397 K/UL (150-450); RED BLOOD COUNT 3.07 M/UL (4.70-6.10); RED CELL DISTRIBUTION WIDTH 20.2 % (11.6-14.8); WHITE BLOOD COUNT 7.1 K/UL (4.8-10.8)
[2020-07-16 08:15] LABS: ANION GAP 6 mmol/L (5-15); BLOOD UREA NITROGEN 20 mg/dL (7-18); CALCIUM 8.5 MG/DL (8.5-10.1); CARBON DIOXIDE 28 MMOL/L (21-32); CHLORIDE 114 MMOL/L (98-107); CREATININE 1.1 MG/DL (0.55-1.30); POTASSIUM 4.1 MMOL/L (3.5-5.1); SODIUM 148 MMOL/L (136-145)
--- NOTE | 2020-07-16 08:17 | NUR ---
NURSE NOTES: Received report from SELIN Squires. Patient in semi-Barba's position, trach collar in place 10 liters at 35%, eyes open, non-verbal, bed in lowest position, side rails up x 2, padded side rails, wheels locked, call light within reach, in no apparent distress.
[2020-07-16 08:33] LABS: CREATINE KINASE 110 U/L (26-308)
[2020-07-16 08:43] LABS: CHOLESTEROL 78 MG/DL (< 200); HDL CHOLESTEROL 32 MG/DL (40-60); TRIGLYCERIDES 62 MG/DL (30-150)
--- NOTE | 2020-07-16 08:50 | Neurology Progress Note ---
Interim History Interim History ROS Limited/Unobtainable: Yes Interim History remains with oxygen gaze preference to left contracted eeg pending Objective Physical Exam Last Vital Signs Date Time Temp Pulse Resp B/P (MAP) Pulse Ox O2 Delivery O2 Flow Rate FiO2 07/16/20 07:41 100 T-Piece 8.0 35 07/16/20 07:41 92 18 92 18 07/16/20 04:00 98.6 122/62 (82) Laboratory Tests Test 07/16/20 07:53 White Blood Count 7.1 K/UL (4.8-10.8) Red Blood Count 3.07 M/UL (4.70-6.10) L Hemoglobin 8.0 G/DL (14.2-18.0) L Hematocrit 25.1 % (42.0-52.0) L Mean Corpuscular Volume 82 FL (80-99) Mean Corpuscular Hemoglobin 25.9 PG (27.0-31.0) L Mean Corpuscular Hemoglobin Concent 31.6 G/DL (32.0-36.0) L Red Cell Distribution Width 20.2 % (11.6-14.8) H Platelet Count 397 K/UL (150-450) Mean Platelet Volume 5.9 FL (6.5-10.1) L Neutrophils (%) (Auto) 67.8 % (45.0-75.0) Lymphocytes (%) (Auto) 21.0 % (20.0-45.0) Monocytes (%) (Auto) 5.5 % (1.0-10.0) Eosinophils (%) (Auto) 5.0 % (0.0-3.0) H Basophils (%) (Auto) 0.7 % (0.0-2.0) Sodium Level 148 MMOL/L (136-145) H Potassium Level 4.1 MMOL/L (3.5-5.1) Chloride Level 114 MMOL/L (98-107) H Carbon Dioxide Level 28 MMOL/L (21-32) Anion Gap 6 mmol/L (5-15) Blood Urea Nitrogen 20 mg/dL (7-18) H Creatinine 1.1 MG/DL (0.55-1.30) Estimat Glomerular Filtration Rate > 60 mL/min (>60) Glucose Level 130 MG/DL (74-106) H Calcium Level 8.5 MG/DL (8.5-10.1) Magnesium Level 2.0 MG/DL (1.8-2.4) Total Creatine Kinase 110 U/L (26-308) Pro-B-Type Natriuretic Peptide 2721 pg/mL (0-125) H Triglycerides Level 62 MG/DL (30-150) Cholesterol Level 78 MG/DL (< 200) LDL Cholesterol 36 mg/dL (<100) HDL Cholesterol 32 MG/DL (40-60) L Cholesterol/HDL Ratio 2.4 (3.3-4.4) L Thyroid Stimulating Hormone (TSH) 4.621 uiU/mL (0.358-3.740) Head: normocophalic Neck: no rigidity EENT: benign Neurologic Exam Objective lethargic, pupils reactive not following withdraws to pain Impression/Recommendations Problems: (1) Malfunction of gastrostomy tube (2) Anemia (3) Pleural effusion, left (4) Acute respiratory failure with hypoxia (5) HCAP (healthcare-associated pneumonia) (6) UTI (urinary tract infection) Diagnostic Impression Recurrent sepsis Possible aspiration Encephalopathy, acute on chronic rule out seizures map > 65 ro covid cont atb fu cultures no need for AED now Gerson Singh MD Jul 16, 2020 08:50
[2020-07-16] MEDS: Doxycycline Hyclate 100 MG in D5W 110 ML IV SCH (09:27)
[2020-07-16] MEDS: Cefepime HCl 1 GM in D5W 55 ML IVPB SCH ×2 (09:28→21:49)
[2020-07-16] MEDS: Amiodarone 200mg tab GT SCH ×2 (09:29→21:00)
[2020-07-16] MEDS: Eliquis 5mg tablet GT SCH ×2 (09:29→18:20)
[2020-07-16] MEDS: Carvedilol 6.25mg Tab ORAL SCH ×2 (09:29→21:00)
--- NOTE | 2020-07-16 10:45 | NUR ---
RD ASSESSMENT & RECOMMENDATIONS SEE CARE ACTIVITY FOR COMPLETE ASSESSMENT DAILY ESTIMATED NEEDS: Needs based on Wounds, pulmonary/ 74.5kg 25-30 kcals/kg 9600-0083 total kcals 1.5-2 g protein/kg 111-149 g total protein 25-30 mL/kg 6768-8949 total fluid mLs NUTRITION DIAGNOSIS: * Swallowing difficulty R/T dysphagia, h/o craniotomy, respiratory failure as evidenced by pt on T-collar, GJ tube dependent. * Increased kcal/prot/micronutrients needs R/T wound healing as evidenced by pt admitted w/ multiple advanced wounds at sacrum, BL heels, Lt leg, pending evaluation. CURRENT TF:Jevity 1.2 @ 60ml/hr x 24 hrs ENTERAL NUTRITION RECOMMENDATIONS: Jevity 1.2 @ 65ml/hr x 24 hrs + Prosource 1pkt TID to provide 1560ml, 1872kcal, 86g+ 33g prot, 1259ml free water * Increase goal rate to 65ml/hr x 24 hrs to better meet est needs * Add Prosource 1pkt TID to meet increased protein needs (33g additional protein) * HOB over 30 degrees/ water flush 150ml q 6hrs without IVF ADDITIONAL RECOMMENDATIONS: * Calibrated bedscale wt * Wound Care: add Vit C 500mg BID, ZnSO4 220mg QD x 10 days Stevie BID * Monitor BGs, need for carb controlled TF * Monitor lytes, replete as needed
--- NOTE | 2020-07-16 11:26 | Infectious Diseases Prog Note ---
Assessment/Plan Assessment/Plan antibiotics : cefepime, doxycycline A 1. aspiration pneumonia. COVID19 test is negative. 2. gram positive line sepsis 3. Hypertension. 4. Atrial fibrillation. 5. anemia 6. respiratory failure S/p tracheostomy 7. Left pleural effusion P 1. continue cefepime 2. start iv vancomycin 3. d/c doxycycline 4. will follow up cultures Subjective ROS Limited/Unobtainable: Yes Allergies: Coded Allergies: No Known Allergies (Unverified , 11/02/19) Objective Last 24 Hour Vital Signs Date Time Temp Pulse Resp B/P (MAP) Pulse Ox O2 Delivery O2 Flow Rate FiO2 07/16/20 09:29 112 116/80 07/16/20 08:00 107 07/16/20 08:00 97.8 112 20 116/80 (92) 95 07/16/20 07:41 100 T-Piece 8.0 35 07/16/20 07:41 92 18 100 T-Piece 8.0 35 92 18 99 07/16/20 04:00 99 07/16/20 04:00 98.6 100 20 122/62 (82) 98 07/16/20 01:28 100 T-Piece 8.0 35 07/16/20 01:28 95 18 100 T-Piece 8.0 35 97 18 100 07/16/20 00:00 99.0 110 22 107/61 (76) 93 07/16/20 00:00 104 07/15/20 21:00 107 107/60 07/15/20 21:00 Trach Collar 10.0 07/15/20 20:14 100 T-Piece 8.0 35 07/15/20 20:14 89 18 100 T-Piece 8.0 35 88 18 100 07/15/20 20:00 107 07/15/20 20:00 98.7 107 20 107/60 (76) 97 07/15/20 16:00 98.3 85 22 124/63 (83) 98 07/15/20 16:00 104 07/15/20 15:13 T-piece 10.0 07/15/20 13:47 96 18 98 T-Piece 8.0 35 95 17 96 07/15/20 11:36 95 18 98 T-Piece 8.0 35 07/15/20 11:35 98 T-Piece 8.0 35 Height (Feet): 5 Height (Inches): 5.00 Weight (Pounds): 150 HEENT: status post trach Respiratory/Chest: lungs clear Cardiovascular: normal rate, regular rhythm, no gallop/murmur Abdomen: soft, non tender, other - GT Extremities: no edema Microbiology Date/Time Source Procedure Growth Status 07/14/20 00:00 Rectum - Final NO CARBAPENEM-RESISTANT ENTEROBACTERI... Complete 07/14/20 00:00 Rectum Received 07/14/20 00:00 Blood Blood Culture - Preliminary Resulted 07/14/20 00:00 Blood Blood Culture - Preliminary Resulted 07/13/20 23:59 Nasopharynx SARS-CoV-2 RdRp Gene Assay - Final Complete 07/13/20 23:45 Urine,Clean Catch Urine Culture - Preliminary NO GROWTH Resulted Laboratory Tests Test 07/16/20 07:53 White Blood Count 7.1 K/UL (4.8-10.8) Red Blood Count 3.07 M/UL (4.70-6.10) L Hemoglobin 8.0 G/DL (14.2-18.0) L Hematocrit 25.1 % (42.0-52.0) L Mean Corpuscular Volume 82 FL (80-99) Mean Corpuscular Hemoglobin 25.9 PG (27.0-31.0) L Mean Corpuscular Hemoglobin Concent 31.6 G/DL (32.0-36.0) L Red Cell Distribution Width 20.2 % (11.6-14.8) H Platelet Count 397 K/UL (150-450) Mean Platelet Volume 5.9 FL (6.5-10.1) L Neutrophils (%) (Auto) 67.8 % (45.0-75.0) Lymphocytes (%) (Auto) 21.0 % (20.0-45.0) Monocytes (%) (Auto) 5.5 % (1.0-10.0) Eosinophils (%) (Auto) 5.0 % (0.0-3.0) H Basophils (%) (Auto) 0.7 % (0.0-2.0) Sodium Level 148 MMOL/L (136-145) H Potassium Level 4.1 MMOL/L (3.5-5.1) Chloride Level 114 MMOL/L (98-107) H Carbon Dioxide Level 28 MMOL/L (21-32) Anion Gap 6 mmol/L (5-15) Blood Urea Nitrogen 20 mg/dL (7-18) H Creatinine 1.1 MG/DL (0.55-1.30) Estimat Glomerular Filtration Rate > 60 mL/min (>60) Glucose Level 130 MG/DL (74-106) H Calcium Level 8.5 MG/DL (8.5-10.1) Magnesium Level 2.0 MG/DL (1.8-2.4) Total Creatine Kinase 110 U/L (26-308) Pro-B-Type Natriuretic Peptide 2721 pg/mL (0-125) H Triglycerides Level 62 MG/DL (30-150) Cholesterol Level 78 MG/DL (< 200) LDL Cholesterol 36 mg/dL (<100) HDL Cholesterol 32 MG/DL (40-60) L Cholesterol/HDL Ratio 2.4 (3.3-4.4) L Thyroid Stimulating Hormone (TSH) 4.621 uiU/mL (0.358-3.740) Current Medications Medications (Trade) Dose Ordered Sig/Clive Route PRN Reason Start Time Stop Time Status Last Admin Dose Admin Acetaminophen (Tylenol) 650 mg Q4H PRN RECTAL Temp >100.5 07/14/20 13:30 08/13/20 13:29 Albuterol/ Ipratropium (Albuterol/ Ipratropium) 3 ml Q6HRT HHN 07/14/20 19:00 07/19/20 18:59 07/16/20 07:40 Amiodarone HCl (Cordarone) 200 mg Q12HR GT 07/14/20 21:00 10/12/20 20:59 07/16/20 09:29 Apixaban (Eliquis) 5 mg BID GT 07/15/20 18:15 10/13/20 18:14 07/16/20 09:29 Atorvastatin Calcium (Lipitor) 80 mg QHS ORAL 07/14/20 21:00 10/12/20 20:59 07/15/20 21:42 Carvedilol (Coreg) 6.25 mg EVERY 12 HOURS ORAL 07/15/20 09:00 08/14/20 08:59 07/16/20 09:29 Cefepime HCl 1 gm/ Dextrose 55 ml @ 110 mls/hr Q12HR IVPB 07/14/20 21:00 07/21/20 20:59 07/16/20 09:28 Dextrose/Sodium Chloride 1,000 ml @ 75 mls/hr [id number] IV 07/14/20 17:30 08/13/20 17:29 07/16/20 05:12 Doxycycline Hyclate 100 mg/ Dextrose 110 ml @ 110 mls/hr Q12HR IV 07/15/20 21:00 07/22/20 20:59 07/16/20 09:27 Famotidine (Pepcid I.v.) 20 mg Q12HR IVP 07/14/20 21:00 08/13/20 20:59 07/16/20 09:29 Finasteride (Proscar) 5 mg DAILY ORAL 07/15/20 09:00 10/13/20 08:59 07/16/20 09:29 Levetiracetam (Keppra) 1,000 mg Q12HR ORAL 07/14/20 21:00 08/13/20 20:59 07/16/20 09:29 Sodium Hypochlorite (Dakin's Half Strength) 1 applic DAILY TOPIC 07/16/20 11:15 08/15/20 11:14 Kristie Jensen MD Jul 16, 2020 11:26
[2020-07-16 12:00] VITALS: BP 114/69
[2020-07-16] MEDS: Dakin's 0.25% (Half Strength) 16oz TOPIC SCH (13:00)
--- NOTE | 2020-07-16 15:49 | NUR ---
CASE MANAGEMENT:REVIEW BIBA FROM HOME CC: SOB PMH: TRACH/GTUBE DEPENDENT SI: PNA. ANEMIA. UTI 99.3 140 30 140/90 93% ON TRACH COLLAR 10L/40% FIO2 H/H-8.0/24.2 NA+151 GLUCOSE+125 BNP+2727 D-DIMER+338 IS: ALBUTEROL HHN Q15MIN IV CEFEPIME IV LEVAQUIN URINE AND BLOOD CX CXR : TO TELEMETRY
[2020-07-16 16:00] VITALS: BP 103/66
[2020-07-16] MEDS: Vancomycin 750 MG in NS 275 ML IVPB SCH (16:31)
--- NOTE | 2020-07-16 17:29 | NUR ---
NURSE NOTES:WOUND CARE NOTES:Pt presented on admission with PV shunt,Tracheostomy, Contractures and multiple Pressure Injuries.Skin assessed under tracheal collar. Skin is erythematous but without any open wounds. GT site is red and excoriated.Scattered senile purpuras bilat upper extremities. Full thickness Sacral Pressure Injury(L)11.8cm x (W)8cm. Base of wound is 75% mixed necrosis and slough,20% antonio. Bone is palpable at base. Edges are macerated. Mild odor noted. Small amt brown exudate noted. Periwound is indurated and maroon with additional erythema and scattered Partial thickness shearing. Full Thickness Pressure Injury L trochanteric with undermined borders.(L)5cm x (W)7cm x (D)2.6cm, undermining clockwise 11-2 by 4.2cm @11o'clock. Base of wound is 75%% mixed necrosis and slough,25% antonio. Wound has appearance of two wounds secondary necrotic bridge.In addition, periwound at clockwise 10-2o'clock the base is necrotic and fluctuant with marginal erythema. Small amt malodorous haemopurulent exudate noted. Full thickness Pressure Injury L Ischium(L)3.5cm x (W)2.0cm. Base of wound is 80% slough,20% antonio. Surrounding necrotic borders that are fluctuant.Small amt sanguineous exudate. Mild odor noted. Full thickness Pressure Injury lateral L Tibia to L lateral Malleolus(L)24.5cm x (W)3.5cm. Base of wound is antonio with scattered necrosis and slough, tendon exposure. Semi-detached borders that indurated and macerated with an area of soft necrosis at proximal borders of wound. Small amt haemopurulent exudate noted. No odor noted. Full thickness Pressure Injury L Heel(L)10.3cm x (W)7.5cm. Base of wound is 60% necrotic,10% slough,30% antonio. Bone is palpable. Borders are indurated with a portion of borders rolled giving heel a shaved appearance. Moderate amt haemopurulent exudate. Mild odor noted.Periwound is purpuric and fluctuant. Full thickness Pressure Injury medial/lateral L foot(L)3.5cm x (W)3.5cm x (D)0.3cm. Base of wound is antonio. Borders and periwound are purpuric and fluctuant.Small amt sanguineous exudate noted. Unstageable Pressure Injury Distal/Lateral L foot(L)2.7cm x (W)4.3cm. Base of wound is 80% soft necrosis,20% antonio. Edges are adherent to base of wound. Periwound is purpuric and fluctuant. Full thickness Pressure Injury R heel Plantar(L)8.5cm x (W)9cm. Base of pressure with scattered necrosis and slough,otherwise base of wound is antonio. Edges are macerated with surrounding necrosis. Small amt seropurulent exudate noted.Mild odor noted. Stable dry eschar dorsal R foot1.5cm x (W)1cm. Edges are adherent to base of wound. No erythema,induration or fluctuance periwound. Stable dry eschar distal/lateral R foot (L)0.8cm x (W)0.8cm. NO erythema,induration or fluctuance periwound. R foot is edematous. Tx.Plan: Cleanse Sacral wound with Dakin's Kristel 0.25%. Apply Dakin's moistened kerlix to wound. Apply Triad periwound. Cover with Optifoam drsg. Change Daily and prn. Cleanse L trochanteric Wound with Dakin's Kristel 0.25%. Loosely pack with Dakin's moistened Kerlix, Apply Moisture Barrier Periwound. Cover with Optifoam drsg Daily and prn. Cleanse R Ischial wound with Dakin's Kristel 0.25%. Apply Dakin's moistened gauze to wound. Apply Moisture Barrier Paste periwound. Cover with Optifoam drsg Daily and prn. Cleanse wounds Lateral R lower extremity, R Heel and Lateral R foot with Dakin's Kristel 0.25%. Place Dakin's Moistened gauze to wounds. Apply Triad Paste along edges of wound. Cover wounds with ABD Pads. Wrap with Kerlix from Base of toes. Cleanse wound R heel with Dakin's Kristel 0.25%. Apply Dakin's moistened Gauze to wound. Apply Triad Periwound. Cover with ABD PAd and wrap with Kerlix. Swab dry Eschar dorsal and Lateral aspect of R foot .Cover with Abd Pads and Wrap with Kerlix Daily and prn. Wash GT site with Soap and water. Apply Triad Paste Daily and prn(Leave Open to Air) Reposition at least every 2hours or as tolerated. Place Pillow Between Knees. Off-Load Heels with Pillow. APM/TERRIE Mattress overlay.
--- NOTE | 2020-07-16 17:32 | Consultation ---
History of Present Illness General Reason for Hospitalization: Dyspnea/Respdistress Present Illness HPI 69-year-old male who has a history of CVA that is contracted with tracheostomy and a feeding tube who presents to [facility] with chief complaint respiratory distress. Patient was recently in a half-way and was taken out by his 2 days ago. According to EMS, she called 911 because he had a hard time suctioning him and his oxygenation was dropping. Unable to get any other history from this patient because of his condition and nonverbal status. No reported fever chills but no reported nausea vomiting or diarrhea. on admission noted to have abnormal labs, respiratory decline, and decubitus ulcers. surgery called to evaluate and assist with care Allergies: Coded Allergies: No Known Allergies (Unverified , 11/02/19) COVID-19 Screening Contact w/high risk pt: No Recent Travel to affected area: No Experienced COVID-19 symptoms?: Yes Coronavirus symptoms experienc: Shortness of Breath Medication History Scheduled Acetaminophen Children's* (Tylenol Children's *), 20 ML GT Q4H, (Reported) Apixaban (Eliquis*), 5 MG ORAL BID, (Reported) Atorvastatin Calcium* (Lipitor*), 80 MG GT BEDTIME, (Reported) Bethanechol Chl (Bethanechol Chloride), 50 MG GT FOUR TIMES A DAY, (Reported) Cholecalciferol (Vitamin D3) (Vitamin D3*), 2,000 UNIT GT DAILY, (Reported) Famotidine* (Pepcid 20mg tablet*), 40 MG GT DAILY, (Reported) Finasteride* (Proscar*), 5 MG ORAL DAILY, (Reported) Levetiracetam (Levetiracetam), 10 ML GT BID, (Reported) Magnesium Hydroxide* (Milk Of Magnesia*), 30 ML GT DAILY, (Reported) Metoprolol Tartrate* (Metoprolol Tartrate*), 12.5 MG GT EVERY 12 HOURS, (Reported) Na Phos,M-B/Na Phos,Di-Ba* (Fleet Enema*), 133 ML RECTAL DAILY, (Reported) Terazosin Hcl* (Hytrin*), 2 MG GT BEDTIME, (Reported) Vit C/Ascorbate Ca/Ascorb Sod (Vitamin C 500 Mg/15 Ml Liquid), 500 MG PO DAILY, (Reported) Zinc Sulfate (Zinc Sulfate*), 220 MG GT DAILY, (Reported) Scheduled PRN Bisacodyl (Dulcolax), 10 MG RC DAILY PRN for CONSTIPATION, (Reported) Polyethylene Glycol 3350* (Polyethylene Glycol 3350*), 17 GM GT BEDTIME PRN for Constipation, (Reported) Prochlorperazine (Compazine*), 10 MG GT Q6H PRN for N/V, (Reported) Miscellaneous Medications Atropine Sulfate (Atropine Sulfate), 2 DROP SL, (Reported) Ferrous Sulfate (Ferrous Sulfate), 7.5 ML GT, (Reported) Lactobacillus Acidophilus (Acidophilus), 1 EACH GT, (Reported) Discontinued Medications Acetaminophen Children's* (Tylenol Children's *), 20 ML GT Q4H, (Reported) Discontinued Reason: Therapy completed Ascorbic Acid* (Ascorbic Acid*), 500 MG GT DAILY, (Reported) Discontinued Reason: Prescription changed Atropine Sulfate (Atropine Sulfate), 1 MG SL, (Reported) Discontinued Reason: Prescription changed Bisacodyl* (Dulcolax*), 10 MG GT DAILY, (Reported) Discontinued Reason: Prescription changed Ertapenem Sodium (Ertapenem), 1 GM IJ, (Reported) Discontinued Reason: Therapy completed Levetiracetam* (Levetiracetam*), 10 ML GT TWICE A DAY, (Reported) Discontinued Reason: Prescription changed Prochlorperazine Maleate* (Compazine*), 10 MG GT Q6H, (Reported) Discontinued Reason: Prescription changed Patient History Limited by: age, medical condition History Provided By: Patient, Medical Record, PMD Healthcare decision maker Resuscitation status Advanced Directive on File Past Medical/Surgical History Past Medical/Surgical History: (1) Anemia (2) UTI (urinary tract infection) (3) Pleural effusion, left (4) Malfunction of gastrostomy tube (5) Acute respiratory failure with hypoxia (6) HCAP (healthcare-associated pneumonia) Review of Systems Review of Symptoms General ROS: no weight loss or fever Psychological ROS: no depression or mood changes, no memory loss Ophthalmic ROS: no visual changes or eye irritation ENT ROS: no nasal congestion, hearing loss, dizziness Allergy and Immunology ROS: no allergic symptoms or urticaria Hematological and Lymphatic ROS: no swollen glands, unusual bleeding or bruising Endocrine ROS: no polyuria, polydipsia, weight changes, temperature intolerance Respiratory ROS: no cough, shortness of breath, or wheezing Cardiovascular ROS: no chest pain or dyspnea on exertion Gastrointestinal ROS: denies abdominal pain, bright red blood in stool. Musculoskeletal ROS: no myalgias or arthralgias Neurological ROS: no TIA or stroke symptoms Dermatological ROS: no new or changing skin lesions, rashes or pruritis Physical Exam Physical Exam General appearance: alert, cooperative, no distress, appears stated age Head: Normocephalic, without obvious abnormality, atraumatic Eyes: conjunctivae/corneas clear. PERRL, EOM's intact. Fundi benign Throat: Lips, mucosa, and tongue normal. Teeth and gums normal Neck: supple, symmetrical, trachea midline, no adenopathy, thyroid: not enlarged, symmetric, no tenderness/mass/nodules, no carotid bruit and no JVD trach Lungs: clear to auscultation bilaterally Heart: regular rate and rhythm, S1, S2 normal, no murmur, click, rub or gallop Abdomen: soft, non-tender. Bowel sounds normal. No masses, no organomegaly peg Extremities: extremities normal, atraumatic, no cyanosis or edema Pulses: 2+ and symmetric Skin: Skin see below Neurologic: Grossly normal Last 24 Hour Vital Signs Date Time Temp Pulse Resp B/P (MAP) Pulse Ox O2 Delivery O2 Flow Rate FiO2 07/16/20 13:55 94 18 100 T-Piece 8.0 35 95 18 100 07/16/20 13:55 100 T-Piece 8.0 35 07/16/20 12:00 93 07/16/20 12:00 99.6 96 20 114/69 (84) 100 07/16/20 09:29 112 116/80 07/16/20 09:00 Trach Collar 10.0 07/16/20 08:00 107 07/16/20 08:00 97.8 112 20 116/80 (92) 95 07/16/20 07:41 100 T-Piece 8.0 35 07/16/20 07:41 92 18 100 T-Piece 8.0 35 92 18 99 07/16/20 04:00 99 07/16/20 04:00 98.6 100 20 122/62 (82) 98 07/16/20 01:28 100 T-Piece 8.0 35 07/16/20 01:28 95 18 100 T-Piece 8.0 35 97 18 100 07/16/20 00:00 99.0 110 22 107/61 (76) 93 07/16/20 00:00 104 07/15/20 21:00 107 107/60 07/15/20 21:00 Trach Collar 10.0 07/15/20 20:14 100 T-Piece 8.0 35 07/15/20 20:14 89 18 100 T-Piece 8.0 35 88 18 100 07/15/20 20:00 107 07/15/20 20:00 98.7 107 20 107/60 (76) 97 Intake and Output 07/15/20 07/16/20 18:59 06:59 Intake Total 35 ml 60 ml Output Total 200 ml 900 ml Balance -165 ml -840 ml Tube Feeding 35 ml 60 ml Output Urine Total 200 ml 900 ml Laboratory Tests Test 07/16/20 07:53 White Blood Count 7.1 K/UL (4.8-10.8) Red Blood Count 3.07 M/UL (4.70-6.10) L Hemoglobin 8.0 G/DL (14.2-18.0) L Hematocrit 25.1 % (42.0-52.0) L Mean Corpuscular Volume 82 FL (80-99) Mean Corpuscular Hemoglobin 25.9 PG (27.0-31.0) L Mean Corpuscular Hemoglobin Concent 31.6 G/DL (32.0-36.0) L Red Cell Distribution Width 20.2 % (11.6-14.8) H Platelet Count 397 K/UL (150-450) Mean Platelet Volume 5.9 FL (6.5-10.1) L Neutrophils (%) (Auto) 67.8 % (45.0-75.0) Lymphocytes (%) (Auto) 21.0 % (20.0-45.0) Monocytes (%) (Auto) 5.5 % (1.0-10.0) Eosinophils (%) (Auto) 5.0 % (0.0-3.0) H Basophils (%) (Auto) 0.7 % (0.0-2.0) Sodium Level 148 MMOL/L (136-145) H Potassium Level 4.1 MMOL/L (3.5-5.1) Chloride Level 114 MMOL/L (98-107) H Carbon Dioxide Level 28 MMOL/L (21-32) Anion Gap 6 mmol/L (5-15) Blood Urea Nitrogen 20 mg/dL (7-18) H Creatinine 1.1 MG/DL (0.55-1.30) Estimat Glomerular Filtration Rate > 60 mL/min (>60) Glucose Level 130 MG/DL (74-106) H Calcium Level 8.5 MG/DL (8.5-10.1) Magnesium Level 2.0 MG/DL (1.8-2.4) Total Creatine Kinase 110 U/L (26-308) Pro-B-Type Natriuretic Peptide 2721 pg/mL (0-125) H Triglycerides Level 62 MG/DL (30-150) Cholesterol Level 78 MG/DL (< 200) LDL Cholesterol 36 mg/dL (<100) HDL Cholesterol 32 MG/DL (40-60) L Cholesterol/HDL Ratio 2.4 (3.3-4.4) L Thyroid Stimulating Hormone (TSH) 4.621 uiU/mL (0.358-3.740) Height (Feet): 5 Height (Inches): 5.00 Weight (Pounds): 150 Medications Current Medications Medications (Trade) Dose Ordered Sig/Clive Route PRN Reason Start Time Stop Time Status Last Admin Dose Admin Acetaminophen (Tylenol) 650 mg Q4H PRN RECTAL Temp >100.5 07/14/20 13:30 08/13/20 13:29 Albuterol/ Ipratropium (Albuterol/ Ipratropium) 3 ml Q6HRT HHN 07/14/20 19:00 07/19/20 18:59 07/16/20 13:55 Amiodarone HCl (Cordarone) 200 mg Q12HR GT 07/14/20 21:00 10/12/20 20:59 07/16/20 09:29 Apixaban (Eliquis) 5 mg BID GT 07/15/20 18:15 10/13/20 18:14 07/16/20 09:29 Atorvastatin Calcium (Lipitor) 80 mg QHS ORAL 07/14/20 21:00 10/12/20 20:59 07/15/20 21:42 Carvedilol (Coreg) 6.25 mg EVERY 12 HOURS ORAL 07/15/20 09:00 08/14/20 08:59 07/16/20 09:29 Cefepime HCl 1 gm/ Dextrose 55 ml @ 110 mls/hr Q12HR IVPB 07/14/20 21:00 07/21/20 20:59 07/16/20 09:28 Dextrose/Sodium Chloride 1,000 ml @ 75 mls/hr [id number] IV 07/14/20 17:30 08/13/20 17:29 07/16/20 05:12 Famotidine (Pepcid) 20 mg Q12HR GT 07/16/20 21:00 10/14/20 20:59 Finasteride (Proscar) 5 mg DAILY ORAL 07/15/20 09:00 10/13/20 08:59 07/16/20 09:29 Levetiracetam (Keppra) 1,000 mg Q12HR ORAL 07/14/20 21:00 08/13/20 20:59 07/16/20 09:29 Sodium Hypochlorite (Dakin's Half Strength) 1 applic DAILY TOPIC 07/16/20 13:00 08/15/20 12:59 07/16/20 13:00 Vancomycin HCl (Vanco pharmacy to dose) 1 ea DAILY PRN MISC Per rx protocol 07/16/20 11:30 08/15/20 11:29 Vancomycin HCl 750 mg/Sodium Chloride 275 ml @ 183.333 mls/hr Q12HR@0200,1400 IVPB 07/16/20 14:00 07/21/20 13:59 07/16/20 16:31 Assessment/Plan Problem List: (1) Decubitus skin ulcer Assessment & Plan: 69M presented on admission with Left leg Stage 4, Bilateral heel stage 4, Sacrum stage 4. care plan initiated. trach and peg care nutritional optimization dressings as directed will follow with recs ICD Codes: L89.90 - Pressure ulcer of unspecified site, unspecified stage SNOMED: 956558387 (2) Anemia ICD Codes: D64.9 - Anemia, unspecified SNOMED: 373017641, 385445592 Qualifiers: Qualified Codes: D64.9 - Anemia, unspecified (3) UTI (urinary tract infection) ICD Codes: N39.0 - Urinary tract infection, site not specified SNOMED: 98897098, 487331538 Qualifiers: Qualified Codes: N30.00 - Acute cystitis without hematuria (4) Pleural effusion, left Assessment & Plan: Lungs: Hazy left lung attenuation could be due to consolidation, pulmonary edema; correlate with presentation. Retrocardiac atelectasis without or with consolidation. Pleural space: Small-moderate left pleural effusion with passive atelectasis. No pneumothorax. Heart: Unremarkable. No cardiomegaly. Mediastinum: Unremarkable. Bones/joints: No acute abnormality Tubes, lines and devices: Tracheostomy. Right upper extremity PICC tip in the mid SVC. IMPRESSION: 1. Tracheostomy. 2. Right upper extremity PICC tip in the mid SVC. 3. Small-moderate left pleural effusion with passive atelectasis. 4. Hazy left lung attenuation could be due to consolidation, pulmonary edema; correlate with presentation. 5. Retrocardiac atelectasis without or with consolidation. 6. Recommend CT chest with IV contrast to further characterize these findings. ICD Codes: J90 - Pleural effusion, not elsewhere classified SNOMED: 48607174, 405241246 (5) Malfunction of gastrostomy tube Assessment & Plan: DAILY ESTIMATED NEEDS: Needs based on Wounds, pulmonary/ 74.5kg 25-30 kcals/kg 9948-1652 total kcals 1.5-2 g protein/kg 111-149 g total protein 25-30 mL/kg 2483-2296 total fluid mLs NUTRITION DIAGNOSIS: * Swallowing difficulty R/T dysphagia, h/o craniotomy, respiratory failure as evidenced by pt on T-collar, GJ tube dependent. * Increased kcal/prot/micronutrients needs R/T wound healing as evidenced by pt admitted w/ multiple advanced wounds at sacrum, BL heels, Lt leg, pending evaluation. CURRENT TF:Jevity 1.2 @ 60ml/hr x 24 hrs ENTERAL NUTRITION RECOMMENDATIONS: Jevity 1.2 @ 65ml/hr x 24 hrs + Prosource 1pkt TID to provide 1560ml, 1872kcal, 86g+ 33g prot, 1259ml free water * Increase goal rate to 65ml/hr x 24 hrs to better meet est needs * Add Prosource 1pkt TID to meet increased protein needs (33g additional protein) * HOB over 30 degrees/ water flush 150ml q 6hrs without IVF ADDITIONAL RECOMMENDATIONS: * Calibrated bedscale wt * Wound Care: add Vit C 500mg BID, ZnSO4 220mg QD x 10 days Stevie BID * Monitor BGs, need for carb controlled TF * Monitor lytes, replete as needed ICD Codes: K94.23 - Gastrostomy malfunction SNOMED: 166003578 (6) Acute respiratory failure with hypoxia ICD Codes: J96.01 - Acute respiratory failure with hypoxia SNOMED: 76410343, 363545430 (7) HCAP (healthcare-associated pneumonia) ICD Codes: J18.9 - Pneumonia, unspecified organism SNOMED: 572313395, 988003513 Deny Westfall Jul 16, 2020 17:32
--- NOTE | 2020-07-16 18:17 | Pulmonology Progress Note ---
Subjective ROS Limited/Unobtainable: Yes Constitutional: Denies: fever Allergies: Coded Allergies: No Known Allergies (Unverified , 11/02/19) Objective Last 24 Hour Vital Signs Date Time Temp Pulse Resp B/P (MAP) Pulse Ox O2 Delivery O2 Flow Rate FiO2 07/16/20 13:55 94 18 100 T-Piece 8.0 35 95 18 100 07/16/20 13:55 100 T-Piece 8.0 35 07/16/20 12:00 93 07/16/20 12:00 99.6 96 20 114/69 (84) 100 07/16/20 09:29 112 116/80 07/16/20 09:00 Trach Collar 10.0 07/16/20 08:00 107 07/16/20 08:00 97.8 112 20 116/80 (92) 95 07/16/20 07:41 100 T-Piece 8.0 35 07/16/20 07:41 92 18 100 T-Piece 8.0 35 92 18 99 07/16/20 04:00 99 07/16/20 04:00 98.6 100 20 122/62 (82) 98 07/16/20 01:28 100 T-Piece 8.0 35 07/16/20 01:28 95 18 100 T-Piece 8.0 35 97 18 100 07/16/20 00:00 99.0 110 22 107/61 (76) 93 07/16/20 00:00 104 07/15/20 21:00 107 107/60 07/15/20 21:00 Trach Collar 10.0 07/15/20 20:14 100 T-Piece 8.0 35 07/15/20 20:14 89 18 100 T-Piece 8.0 35 88 18 100 07/15/20 20:00 107 07/15/20 20:00 98.7 107 20 107/60 (76) 97 Intake and Output 07/15/20 07/16/20 19:00 07:00 Intake Total 35 ml 60 ml Output Total 200 ml 900 ml Balance -165 ml -840 ml Tube Feeding 35 ml 60 ml Output Urine Total 200 ml 900 ml Microbiology Date/Time Source Procedure Growth Status 07/14/20 00:00 Rectum - Final NO CARBAPENEM-RESISTANT ENTEROBACTERI... Complete 07/14/20 00:00 Rectum VRE Culture - Final Enterococcus Faecium - Vre Complete 07/14/20 00:00 Blood Blood Culture - Preliminary Resulted 07/14/20 00:00 Blood Blood Culture - Preliminary Resulted 07/13/20 23:59 Nasopharynx SARS-CoV-2 RdRp Gene Assay - Final Complete 07/13/20 23:45 Urine,Clean Catch Urine Culture - Preliminary NO GROWTH Resulted Laboratory Tests 07/16/20 07:53: White Blood Count 7.1, Red Blood Count 3.07L, Hemoglobin 8.0L, Hematocrit 25.1L, Mean Corpuscular Volume 82, Mean Corpuscular Hemoglobin 25.9L, Mean Corpuscular Hemoglobin Concent 31.6L, Red Cell Distribution Width 20.2H, Platelet Count 397, Mean Platelet Volume 5.9L, Neutrophils (%) (Auto) 67.8, Lymphocytes (%) (Auto) 21.0, Monocytes (%) (Auto) 5.5, Eosinophils (%) (Auto) 5.0H, Basophils (%) (Auto) 0.7, Sodium Level 148H, Potassium Level 4.1, Chloride Level 114H, Carbon Dioxide Level 28, Anion Gap 6, Blood Urea Nitrogen 20H, Creatinine 1.1, Estimat Glomerular Filtration Rate > 60, Glucose Level 130H, Calcium Level 8.5, Magnesium Level 2.0, Total Creatine Kinase 110, Pro-B-Type Natriuretic Peptide 2721H, Triglycerides Level 62, Cholesterol Level 78, LDL Cholesterol 36, HDL C holesterol 32L, Cholesterol/HDL Ratio 2.4L, Thyroid Stimulating Hormone (TSH) 4.621H Current Medications Medications (Trade) Dose Ordered Sig/Clive Route PRN Reason Start Time Stop Time Status Last Admin Dose Admin Acetaminophen (Tylenol) 650 mg Q4H PRN RECTAL Temp >100.5 07/14/20 13:30 08/13/20 13:29 Albuterol/ Ipratropium (Albuterol/ Ipratropium) 3 ml Q6HRT HHN 07/14/20 19:00 07/19/20 18:59 07/16/20 13:55 Amiodarone HCl (Cordarone) 200 mg Q12HR GT 07/14/20 21:00 10/12/20 20:59 07/16/20 09:29 Apixaban (Eliquis) 5 mg BID GT 07/15/20 18:15 10/13/20 18:14 07/16/20 09:29 Ascorbic Acid (Vitamin C) 250 mg TWICE A DAY GT 07/16/20 18:00 08/15/20 17:59 Atorvastatin Calcium (Lipitor) 80 mg QHS ORAL 07/14/20 21:00 10/12/20 20:59 07/15/20 21:42 Carvedilol (Coreg) 6.25 mg EVERY 12 HOURS ORAL 07/15/20 09:00 08/14/20 08:59 07/16/20 09:29 Cefepime HCl 1 gm/ Dextrose 55 ml @ 110 mls/hr Q12HR IVPB 07/14/20 21:00 07/21/20 20:59 07/16/20 09:28 Dextrose/Sodium Chloride 1,000 ml @ 75 mls/hr [id number] IV 07/14/20 17:30 08/13/20 17:29 07/16/20 05:12 Famotidine (Pepcid) 20 mg Q12HR GT 07/16/20 21:00 10/14/20 20:59 Finasteride (Proscar) 5 mg DAILY ORAL 07/15/20 09:00 10/13/20 08:59 07/16/20 09:29 Levetiracetam (Keppra) 1,000 mg Q12HR ORAL 07/14/20 21:00 08/13/20 20:59 07/16/20 09:29 Multivitamins (Multivitamins) 1 tab DAILY GT 07/17/20 09:00 08/16/20 08:59 Sodium Hypochlorite (Dakin's Half Strength) 1 applic DAILY TOPIC 07/16/20 13:00 08/15/20 12:59 07/16/20 13:00 Vancomycin HCl (Vanco pharmacy to dose) 1 ea DAILY PRN MISC Per rx protocol 07/16/20 11:30 08/15/20 11:29 Vancomycin HCl 750 mg/Sodium Chloride 275 ml @ 183.333 mls/hr Q12HR@0200,1400 IVPB 07/16/20 14:00 07/21/20 13:59 07/16/20 16:31 Zinc Sulfate (Zinc Sulfate) 220 mg DAILY GT 07/17/20 09:00 07/27/20 08:59 Assessment/Plan Assessment/Plan Pulmonary Progress Note Subjective HPI: Patient is a 69 year old man, Tracheostomy status, s/p previous Craniotomy, RCA occlusion, SPINNER HYDRAULIC shunt, has Seizure history, GERD, GJ tube, h/o Hypertension, Atrial fibrillation,previous anemia, previous DVT and Pulmonary Embolism, recurrent left Pleural effusion. Chief complaint was complaint respiratory distress, had difficulty suctioning patient. No reported fever chills but no reported nausea vomiting or diarrhea. Nonverbal status. Admitted with Pneumonia and small left pleural effusion, Covid 19 negative. Allergies: No Known Allergies Medications: Noted Past Medical History: Tracheostomy status, s/p previous Craniotomy, RCA occlusion, SPINNER HYDRAULIC shunt, has Seizure history, GERD, GJ tube, h/o Hypertension, Atrial fibrillation,previous anemia, previous DVT and Pulmonary Embolism, recurrent left Pleural effusion. Past Surgical History: Craniotomy, Tracheostomy, G tube Pertinent Family History: NC Social History: NC All Other Systems: limited Objective Physical Exam Vital Signs Noted General Appearance: alert, mild distress, Chronically Ill Head: normocephalic, atraumatic Eyes: bilateral eye PERRL, bilateral eye EOMI ENT: hearing grossly normal, normal pharynx Neck: no meningismus, tracheotomy - Copious amount of secretion at trach site Respiratory: chest non-tender, rhonchi Cardiovascular: regular rate, rhythm, HS1, HS2 normal,no murmur Gastrointestinal: normal bowel sounds, non tender, no mass, no organomegaly, no bruit, non-distended Musculoskeletal: other - Contracted,decubitus LE ulcers Neurologic: no focal signs noted,no seizures Medical Decision Making Impression: Healthcare-associated pneumonia Acute respiratory failure with hypoxia Tracheostomy status Pleural effusion, left-recurrent Decubitus ulcers Urinary tract infection Anemia S/p previous Craniotomy, RCA occlusion, SPINNER HYDRAULIC shunt Seizure history GERD, dysphagia s/p GJ tube h/o Hypertension h/o Atrial fibrillation Previous DVT and Pulmonary Embolism, Plan IV Antibiotics IVF PRN J tube feeds O2 PRN HHN Wound care nurse Surgery consultation ID Consultation Neurology following Cardiology Consultation [employer] Medications Monitor labs PPX Laboratory:noted EKG: Rate: tachycardiac Rhythm: NSR ST Segments: other - NSST changes Chest X-Ray: no pneumothorax, other - RLL infiltrate,small L effusion, LLL infiltrate Dylan Augustine MD Jul 16, 2020 18:17
[2020-07-16] MEDS: Ascorbic Acid 500mg tab GT SCH (18:20)
--- NOTE | 2020-07-16 19:29 | NUR ---
NURSE HAND-OFF REPORT: Important Events on Shift: Patient tolerating G-tube feeding. Patient Status: Stable, Full Code Diet: Jevity 1.2@60 cc/hour. Pending Orders: N/A Pending Results/Labs:am labs. Pending MD notification:N/A Latest Vital Signs: Temperature 100.1 , Pulse 94 , B/P 103 /66 , Respiratory Rate 20 , O2 SAT 99 , Trach Collar, O2 Flow Rate 8.0 . Vital Sign Comment: N/A EKG Rhythm: Sinus Rhythm Rhythm change?: N MD Notified?: - MD Response: Latest Ramirez Fall Score: 50 Fall Risk: High Risk Safety Measures: Call light Within Reach, Bed Alarm Zone 1, Side Rails Side Rails x3, Bed position Low and Locked. Fall Precautions: Yellow Socks Yellow Gown Patient Fall Education Report given to Tavia Ramos RN.
--- NOTE | 2020-07-16 19:30 | NUR ---
NURSE NOTES: Received report from August RN; pt non-verbal AOX0, on Trach collar piece @ 10L FiO2 35%, in no acute distress; noted asleep; On GT feeding Jevity 1.2 ton @ 60cc/hr infusing and pt tolerating well; HOB elevated >30 degrees as aspiration precaution; Also remains with PICC line on R upper arm single lumen intact with dressing and infusing D5 1/2 ns @ 75cc/hr, with multiple pressure injuries; dressing on affected sites noted dry and intact also with rectal tube and pressure relieving mattress in place for wound mgmt; will continue to monitor.
[2020-07-16 20:00] VITALS: BP 95/65
[2020-07-16] MEDS: Atorvastatin 80mg tab ORAL SCH (21:49)
[2020-07-17] VITALS (7 sets, daily range): BP systolic 106–135; BP diastolic 55–83
[2020-07-17] MEDS: Albuterol/Ipratropium 3ml neb HHN SCH ×4 (01:01→19:29)
[2020-07-17] MEDS: Vancomycin 750 MG in NS 275 ML IVPB SCH ×2 (02:19→14:04)
--- NOTE | 2020-07-17 07:10 | NUR ---
NURSE HAND-OFF REPORT: Important Events on Shift: EEG done at bedside, result in chart Patient Status: AOX0, non-verbal Diet: Jevity 1.2 ton @ 60cc/hr Pending Orders: N Pending Results/Labs: am labs Pending MD notification: N Latest Vital Signs: Temperature 99.1 , Pulse 100 , B/P 114 /55 , Respiratory Rate 20 , O2 SAT 95 , Trach Collar, O2 Flow Rate 8.0 . Vital Sign Comment: stable EKG Rhythm: Sinus Rhythm Rhythm change?: N MD Notified?: - MD Response: Latest Ramirez Fall Score: 50 Fall Risk: High Risk Safety Measures: Call light Within Reach, Bed Alarm Zone 1, Side Rails Side Rails x3, Bed position Low and Locked. Fall Precautions: Yellow Socks Yellow Gown Patient Fall Education Report given to SELIN Kohc.
--- NOTE | 2020-07-17 07:30 | NUR ---
NURSE NOTES: Received report from Tavia Ramos RN. Patient awake, eyes open, HOB at 45 degrees, G-tube in place, [place] catheter in place, rectal tube in place, soft care mattress in place, side rails up X 3, bed in lowest position, call light within reach, trach in place, in no apparent distress.
[2020-07-17 07:59] LABS: HEMATOCRIT 25.9 % (42.0-52.0); HEMOGLOBIN 7.4 G/DL (14.2-18.0); MEAN CORPUSCULAR VOLUME 90 FL (80-99); PLATELET COUNT 314 K/UL (150-450); RED BLOOD COUNT 2.87 M/UL (4.70-6.10); RED CELL DISTRIBUTION WIDTH 19.3 % (11.6-14.8); WHITE BLOOD COUNT 6.1 K/UL (4.8-10.8)
[2020-07-17 08:03] LABS: ANION GAP 5 mmol/L (5-15); BLOOD UREA NITROGEN 20 mg/dL (7-18); CALCIUM 8.2 MG/DL (8.5-10.1); CARBON DIOXIDE 28 MMOL/L (21-32); CHLORIDE 114 MMOL/L (98-107); CREATININE 1.1 MG/DL (0.55-1.30); POTASSIUM 4.2 MMOL/L (3.5-5.1); SODIUM 147 MMOL/L (136-145)
[2020-07-17] MEDS: Ascorbic Acid 500mg tab GT SCH ×2 (08:28→17:58)
[2020-07-17] MEDS: Carvedilol 6.25mg Tab ORAL SCH ×2 (08:29→21:27)
[2020-07-17] MEDS: Zinc Sulfate 220mg GT SCH (08:29)
[2020-07-17] MEDS: Eliquis 5mg tablet GT SCH ×2 (08:30→17:58)
[2020-07-17] MEDS: Amiodarone 200mg tab GT SCH ×2 (08:30→21:26)
[2020-07-17] MEDS: D5 1/2NS 1,000 ML IV SCH ×2 (08:31→21:29)
[2020-07-17] MEDS: Cefepime HCl 1 GM in D5W 55 ML IVPB SCH ×2 (08:45→21:27)
--- NOTE | 2020-07-17 10:00 | Electroencephalogram ---
DATE OF PROCEDURE: 07/16/2020 EEG REPORT HISTORY: This EEG was performed on a 69-year-old gentleman with a history of multiple medical problems including cerebrovascular disease with a prior stroke, respiratory failure, urinary tract infection and sepsis. The patient also carries a prior history of seizures. The purpose of this EEG was to evaluate the patient for the degree and type of cerebral dysfunction and to exclude ongoing ictal or interictal phenomena. TECHNICAL NOTE: This EEG was performed on a [employer] Acquisition Unit with electrodes placed on the scalp according to the International 10-20 system. [id number] and [id number] montages were used. The EEG was technically satisfactory and was performed while the patient was in a poorly responsive state. OBSERVATIONS: In the poorly responsive state, the background activity consisted of 5-6 Hz theta and 1.5-2 Hz delta activity. Throughout the tracing, left greater than right frontotemporal polymorphic delta activity was also seen. In addition, interspersed triphasic waveforms with an anterior to posterior gradient were also noted. No epileptiform discharges were seen. IMPRESSION: This is an abnormal EEG characterized by: 1. Slowing of the background in the 5-6 Hz theta and 1.5-2 Hz delta range. 2. The presence of left greater than right frontotemporal polymorphic delta activity. 3. The presence of triphasic waveforms with an anterior to posterior gradient. COMMENT: This study is consistent with: 1. An encephalopathy of a moderately severe degree. 2. Left greater than right frontotemporal focal dysfunction. 3. A toxic metabolic component to the encephalopathy as evidenced by the triphasic waveforms. Clinical correlation is recommended. Eligio Emdonds M.D., M.S.P.H. Clinical Neurophysiologist DR: PASQUALE JOB#: [id number] JULIANE
--- NOTE | 2020-07-17 11:28 | Pulmonology Progress Note ---
Subjective ROS Limited/Unobtainable: Yes Constitutional: Denies: fever Allergies: Coded Allergies: No Known Allergies (Unverified , 11/02/19) Subjective CARE NOTED nonverbal on oxygen Objective Last 24 Hour Vital Signs Date Time Temp Pulse Resp B/P (MAP) Pulse Ox O2 Delivery O2 Flow Rate FiO2 07/17/20 08:29 102 132/83 07/17/20 08:00 99.3 102 20 132/83 (99) 95 07/17/20 07:26 95 T-Piece 8.0 35 07/17/20 07:25 98 18 97 T-Piece 8.0 35 96 18 95 07/17/20 06:00 99.1 100 20 114/55 (74) 95 07/17/20 04:00 100 07/17/20 04:00 99.1 100 20 114/55 (74) 95 07/17/20 01:01 102 18 97 T-Piece 8.0 35 100 18 95 07/17/20 01:01 95 T-Piece 8.0 35 07/17/20 00:00 97 07/17/20 00:00 99.6 107 20 106/55 (72) 96 07/16/20 21:00 106 95/65 07/16/20 21:00 Trach Collar 10.0 07/16/20 20:00 99.8 106 20 95/65 (75) 94 07/16/20 20:00 100 07/16/20 19:47 94 T-Piece 8.0 35 07/16/20 19:41 108 18 97 T-Piece 8.0 35 102 18 94 07/16/20 16:00 100.1 102 20 103/66 (78) 99 07/16/20 16:00 94 07/16/20 13:55 94 18 100 T-Piece 8.0 35 95 18 100 07/16/20 13:55 100 T-Piece 8.0 35 07/16/20 12:00 93 07/16/20 12:00 99.6 96 20 114/69 (84) 100 Intake and Output 07/16/20 07/17/20 19:00 07:00 Intake Total 1890 ml 60 ml Output Total 500 ml 1700 ml Balance 1390 ml -1640 ml IV Total 1230 ml Tube Feeding 660 ml 60 ml Output Urine Total 500 ml 1700 ml # Voids 1 # Bowel Movements 1 Objective WDWN NAD chronically ill moderate breath sounds bilaterally without rhonchi or wheeze [id number] NABS nontender GT no CCE nonfocal poorly responsive Laboratory Tests 07/17/20 06:50: White Blood Count 6.1, Red Blood Count 2.87L, Hemoglobin 7.4L, Hematocrit 25.9L, Mean Corpuscular Volume 90#, Mean Corpuscular Hemoglobin 25.9L, Mean Corpuscular Hemoglobin Concent 28.7L, Red Cell Distribution Width 19.3H, Platelet Count 314, Mean Platelet Volume 5.8L, Neutrophils (%) (Auto) , Lymphocytes (%) (Auto) , Monocytes (%) (Auto) , Eosinophils (%) (Auto) , Basophils (%) (Auto) , Differential Total Cells Counted 100, Neutrophils % (Manual) 72, Lymphocytes % (Manual) 14L, Monocytes % (Manual) 5, Eosinophils % (Manual) 9H, Basophils % (Manual) 0, Band Neutrophils 0, Platelet Estimate Adequate, Platelet Morphology Normal, Hypochromasia 1+, Anisocytosis 2+, Ovalocytes Occasional, Sodium Level 147H, Potassium Level 4.2, Chloride Level 114H, Carbon Dioxide Level 28, Anion Gap 5, Blood Urea Nitrogen 20H, Creatinine 1.1, Estimat Glomerular Filtration Rate > 60, Glucose Level 144H, Calcium Level 8.2L Current Medications Medications (Trade) Dose Ordered Sig/Clive Route PRN Reason Start Time Stop Time Status Last Admin Dose Admin Acetaminophen (Tylenol) 650 mg Q4H PRN RECTAL Temp >100.5 07/14/20 13:30 08/13/20 13:29 Albuterol/ Ipratropium (Albuterol/ Ipratropium) 3 ml Q6HRT N 07/14/20 19:00 07/19/20 18:59 07/17/20 07:25 Amiodarone HCl (Cordarone) 200 mg Q12HR GT 07/14/20 21:00 10/12/20 20:59 07/17/20 08:30 Apixaban (Eliquis) 5 mg BID GT 07/15/20 18:15 10/13/20 18:14 07/17/20 08:30 Ascorbic Acid (Vitamin C) 250 mg TWICE A DAY GT 07/16/20 18:00 08/15/20 17:59 07/17/20 08:28 Atorvastatin Calcium (Lipitor) 80 mg QHS ORAL 07/14/20 21:00 10/12/20 20:59 07/16/20 21:49 Carvedilol (Coreg) 6.25 mg EVERY 12 HOURS ORAL 07/15/20 09:00 08/14/20 08:59 07/17/20 08:29 Cefepime HCl 1 gm/ Dextrose 55 ml @ 110 mls/hr Q12HR IVPB 07/14/20 21:00 07/21/20 20:59 07/17/20 08:45 Chlorhexidine Gluconate (Jennifer-Hex 2%) 1 applic DAILY@2000 TOPIC 07/17/20 20:00 10/15/20 19:59 Dextrose/Sodium Chloride 1,000 ml @ 75 mls/hr [id number] IV 07/14/20 17:30 08/13/20 17:29 07/17/20 08:31 Famotidine (Pepcid) 20 mg Q12HR GT 07/16/20 21:00 10/14/20 20:59 07/17/20 08:29 Finasteride (Proscar) 5 mg DAILY ORAL 07/15/20 09:00 10/13/20 08:59 07/17/20 08:29 Levetiracetam (Keppra) 1,000 mg Q12HR ORAL 07/14/20 21:00 08/13/20 20:59 07/17/20 08:29 Multivitamins (Multivitamins) 1 tab DAILY GT 07/17/20 09:00 08/16/20 08:59 07/17/20 08:28 Sodium Hypochlorite (Dakin's Half Strength) 1 applic DAILY TOPIC 07/16/20 13:00 08/15/20 12:59 07/16/20 13:00 Vancomycin HCl (Vanco pharmacy to dose) 1 ea DAILY PRN MISC Per rx protocol 07/16/20 11:30 08/15/20 11:29 Vancomycin HCl 750 mg/Sodium Chloride 275 ml @ 183.333 mls/hr Q12HR@0200,1400 IVPB 07/16/20 14:00 07/21/20 13:59 07/17/20 02:19 Zinc Sulfate (Zinc Sulfate) 220 mg DAILY GT 07/17/20 09:00 07/27/20 08:59 07/17/20 08:29 Assessment/Plan Assessment/Plan Impression: Healthcare-associated pneumonia Acute respiratory failure with hypoxia Tracheostomy status Pleural effusion, left-recurrent Decubitus ulcers Urinary tract infection Anemia S/p previous Craniotomy, RCA occlusion, [employer]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
[2020-07-17] MEDS: Dakin's 0.25% (Half Strength) 16oz TOPIC SCH (11:30)
--- NOTE | 2020-07-17 13:53 | Surgery Progress Note ---
Surgery Progress Note Subjective Additional Comments no acute events labs noted exam stable no n/v Objective Last 24 Hour Vital Signs Date Time Temp Pulse Resp B/P (MAP) Pulse Ox O2 Delivery O2 Flow Rate FiO2 07/17/20 08:29 102 132/83 07/17/20 08:00 99.3 102 20 132/83 (99) 95 07/17/20 08:00 104 07/17/20 07:26 95 T-Piece 8.0 35 07/17/20 07:25 98 18 97 T-Piece 8.0 35 96 18 95 07/17/20 06:00 99.1 100 20 114/55 (74) 95 07/17/20 04:00 100 07/17/20 04:00 99.1 100 20 114/55 (74) 95 07/17/20 01:01 102 18 97 T-Piece 8.0 35 100 18 95 07/17/20 01:01 95 T-Piece 8.0 35 07/17/20 00:00 97 07/17/20 00:00 99.6 107 20 106/55 (72) 96 07/16/20 21:00 106 95/65 07/16/20 21:00 Trach Collar 10.0 07/16/20 20:00 99.8 106 20 95/65 (75) 94 07/16/20 20:00 100 07/16/20 19:47 94 T-Piece 8.0 35 07/16/20 19:41 108 18 97 T-Piece 8.0 35 102 18 94 07/16/20 16:00 100.1 102 20 103/66 (78) 99 07/16/20 16:00 94 07/16/20 13:55 94 18 100 T-Piece 8.0 35 95 18 100 07/16/20 13:55 100 T-Piece 8.0 35 I&O Intake and Output 07/16/20 07/17/20 19:00 07:00 Intake Total 1890 ml 60 ml Output Total 500 ml 1700 ml Balance 1390 ml -1640 ml IV Total 1230 ml Tube Feeding 660 ml 60 ml Output Urine Total 500 ml 1700 ml # Voids 1 # Bowel Movements 1 Dressing: saturated Cardiovascular: RSR Respiratory: decreased breath sounds Abdomen: soft, non-tender, present bowel sounds, non-distended Extremities: no tenderness, no cyanosis Laboratory Tests Test 07/17/20 06:50 White Blood Count 6.1 K/UL (4.8-10.8) Red Blood Count 2.87 M/UL (4.70-6.10) L Hemoglobin 7.4 G/DL (14.2-18.0) L Hematocrit 25.9 % (42.0-52.0) L Mean Corpuscular Volume 90 FL (80-99) # Mean Corpuscular Hemoglobin 25.9 PG (27.0-31.0) L Mean Corpuscular Hemoglobin Concent 28.7 G/DL (32.0-36.0) L Red Cell Distribution Width 19.3 % (11.6-14.8) H Platelet Count 314 K/UL (150-450) Mean Platelet Volume 5.8 FL (6.5-10.1) L Neutrophils (%) (Auto) % (45.0-75.0) Lymphocytes (%) (Auto) % (20.0-45.0) Monocytes (%) (Auto) % (1.0-10.0) Eosinophils (%) (Auto) % (0.0-3.0) Basophils (%) (Auto) % (0.0-2.0) Differential Total Cells Counted 100 Neutrophils % (Manual) 72 % (45-75) Lymphocytes % (Manual) 14 % (20-45) L Monocytes % (Manual) 5 % (1-10) Eosinophils % (Manual) 9 % (0-3) H Basophils % (Manual) 0 % (0-2) Band Neutrophils 0 % (0-8) Platelet Estimate Adequate Platelet Morphology Normal Hypochromasia 1+ Anisocytosis 2+ Ovalocytes Occasional Sodium Level 147 MMOL/L (136-145) H Potassium Level 4.2 MMOL/L (3.5-5.1) Chloride Level 114 MMOL/L (98-107) H Carbon Dioxide Level 28 MMOL/L (21-32) Anion Gap 5 mmol/L (5-15) Blood Urea Nitrogen 20 mg/dL (7-18) H Creatinine 1.1 MG/DL (0.55-1.30) Estimat Glomerular Filtration Rate > 60 mL/min (>60) Glucose Level 144 MG/DL (74-106) H Calcium Level 8.2 MG/DL (8.5-10.1) L Plan Problems: (1) Decubitus skin ulcer Assessment & Plan: Pt presented on admission with PV shunt,Tracheostomy, Contractures and multiple Pressure Injuries.Skin assessed under tracheal collar. Skin is erythematous but without any open wounds. GT site is red and excoriated.Scattered senile purpuras bilat upper extremities. Full thickness Sacral Pressure Injury(L)11.8cm x (W)8cm. Base of wound is 75% mixed necrosis and slough,20% antonio. Bone is palpable at base. Edges are macerated. Mild odor noted. Small amt brown exudate noted. Periwound is boni rated and maroon with additional erythema and scattered Partial thickness shearing. Full Thickness Pressure Injury L trochanteric with undermined borders.(L)5cm x (W)7cm x (D)2.6cm, undermining clockwise 11-2 by 4.2cm @11o'clock. Base of wound is 75%% mixed necrosis and slough,25% antonio. Wound has appearance of two wounds secondary necrotic bridge.In addition, periwound at clockwise 10-2o'clock the base is necrotic and fluctuant with marginal erythema. Small amt malodorous haemopurulent exudate noted. Full thickness Pressure Injury L Ischium(L)3.5cm x (W)2.0cm. Base of wound is 80% slough,20% antonio. Surrounding necrotic borders that are fluctuant.Small amt sanguineous exudate. Mild odor noted. Full thickness Pressure Injury lateral L Tibia to L lateral Malleolus(L)24.5cm x (W)3.5cm. Base of wound is antonio with scattered necrosis and slough, tendon exposure. Semi-detached borders that indurated and macerated with an area of soft necrosis at proximal borders of wound. Small amt haemopurulent exudate noted. No odor noted. Full thickness Pressure Injury L Heel(L)10.3cm x (W)7.5cm. Base of wound is 60% necrotic,10% slough,30% antonio. Bone is palpable. Borders are indurated with a portion of borders rolled giving heel a shaved appearance. Moderate amt haemopurulent exudate. Mild odor noted.Periwound is purpuric and fluctuant. Full thickness Pressure Injury medial/lateral L foot(L)3.5cm x (W)3.5cm x (D)0.3cm. Base of wound is antonio. Borders and periwound are purpuric and fluctuant.Small amt sanguineous exudate noted. Unstageable Pressure Injury Distal/Lateral L foot(L)2.7cm x (W)4.3cm. Base of wound is 80% soft necrosis,20% antonio. Edges are adherent to base of wound. Periwound is purpuric and fluctuant. Full thickness Pressure Injury R heel Plantar(L)8.5cm x (W)9cm. Base of pressure with scattered necrosis and slough,otherwise base of wound is antonio. Edges are macerated with surrounding necrosis. Small amt seropurulent exudate noted.Mild odor noted. Stable dry eschar dorsal R foot1.5cm x (W)1cm. Edges are adherent to base of wound. No erythema,induration or fluctuance periwound. Stable dry eschar distal/lateral R foot (L)0.8cm x (W)0.8cm. NO erythema,induration or fluctuance periwound. R foot is edematous. Tx.Plan: Cleanse Sacral wound with Dakin's Kristel 0.25%. Apply Dakin's moistened kerlix to wound. Apply Triad periwound. Cover with Optifoam drsg. Change Daily and prn. Cleanse L trochanteric Wound with Dakin's Kristel 0.25%. Loosely pack with Dakin's moistened Kerlix, Apply Moisture Barrier Periwound. Cover with Optifoam drsg Daily and prn. Cleanse R Ischial wound with Dakin's Kirstel 0.25%. Apply Dakin's moistened gauze to wound. Apply Moisture Barrier Paste periwound. Cover with Optifoam drsg Daily and prn. Cleanse wounds Lateral R lower extremity, R Heel and Lateral R foot with Dakin's Kristel 0.25%. Place Dakin's Moistened gauze to wounds. Apply Triad Paste along edges of wound. Cover wounds with ABD Pads. Wrap with Kerlix from Base of toes. Cleanse wound R heel with Dakin's Kristel 0.25%. Apply Dakin's moistened Gauze to wound. Apply Triad Periwound. Cover with ABD PAd and wrap with Kerlix. Swab dry Eschar dorsal and Lateral aspect of R foot .Cover with Abd Pads and Wrap with Kerlix Daily and prn. Wash GT site with Soap and water. Apply Triad Paste Daily and prn (Leave Open to Air) Reposition at least every 2hours or as tolerated. Place Pillow Between Knees. Off-Load Heels with Pillow. APM/TERRIE Mattress overlay. (2) Anemia (3) UTI (urinary tract infection) (4) Pleural effusion, left Assessment & Plan: Lungs: Hazy left lung attenuation could be due to consolidation, pulmonary edema; correlate with presentation. Retrocardiac atelectasis without or with consolidation. Pleural space: Small-moderate left pleural effusion with passive atelectasis. No pneumothorax. Heart: Unremarkable. No cardiomegaly. Mediastinum: Unremarkable. Bones/joints: No acute abnormality Tubes, lines and devices: Tracheostomy. Right upper extremity PICC tip in the mid SVC. IMPRESSION: 1. Tracheostomy. 2. Right upper extremity PICC tip in the mid SVC. 3. Small-moderate left pleural effusion with passive atelectasis. 4. Hazy left lung attenuation could be due to consolidation, pulmonary edema; correlate with presentation. 5. Retrocardiac atelectasis without or with consolidation. 6. Recommend CT chest with IV contrast to further characterize these findings. (5) Malfunction of gastrostomy tube Assessment & Plan: DAILY ESTIMATED NEEDS: Needs based on Wounds, pulmonary/ 74.5kg 25-30 kcals/kg 6705-0254 total kcals 1.5-2 g protein/kg 111-149 g total protein 25-30 mL/kg 0354-7777 total fluid mLs NUTRITION DIAGNOSIS: * Swallowing difficulty R/T dysphagia, h/o craniotomy, respiratory failure as evidenced by pt on T-collar, GJ tube dependent. * Increased kcal/prot/micronutrients needs R/T wound healing as evidenced by pt admitted w/ multiple advanced wounds at sacrum, BL heels, Lt leg, pending evaluation. CURRENT TF:Jevity 1.2 @ 60ml/hr x 24 hrs ENTERAL NUTRITION RECOMMENDATIONS: Jevity 1.2 @ 65ml/hr x 24 hrs + Prosource 1pkt TID to provide 1560ml, 1872kcal, 86g+ 33g prot, 1259ml free water * Increase goal rate to 65ml/hr x 24 hrs to better meet est needs * Add Prosource 1pkt TID to meet increased protein needs (33g additional protein) * HOB over 30 degrees/ water flush 150ml q 6hrs without IVF ADDITIONAL RECOMMENDATIONS: * Calibrated bedscale wt * Wound Care: add Vit C 500mg BID, ZnSO4 220mg QD x 10 days Stevie BID * Monitor BGs, need for carb controlled TF * Monitor lytes, replete as needed (6) Acute respiratory failure with hypoxia (7) HCAP (healthcare-associated pneumonia) Deny Westfall Jul 17, 2020 13:53
--- NOTE | 2020-07-17 15:45 | General Progress Note ---
Subjective ROS Limited/Unobtainable: No Constitutional: Reports: malaise, weakness HEENT: Reports: no symptoms Cardiovascular: Reports: no symptoms Respiratory: Reports: shortness of breath Gastrointestinal/Abdominal: Reports: no symptoms Genitourinary: Reports: no symptoms Neurologic/Psychiatric: Reports: no symptoms Endocrine: Reports: no symptoms Hematologic/Lymphatic: Reports: no symptoms Allergies: Coded Allergies: No Known Allergies (Unverified , 11/02/19) All Systems: reviewed and negative except above Subjective no events. admitted with pna and sepsis. on the vent. confused. Objective Last 24 Hour Vital Signs Date Time Temp Pulse Resp B/P (MAP) Pulse Ox O2 Delivery O2 Flow Rate FiO2 07/17/20 13:10 99 18 100 T-Piece 8.0 35 98 18 98 07/17/20 13:10 98 T-Piece 8.0 35 07/17/20 12:00 92 07/17/20 08:29 102 132/83 07/17/20 08:00 99.3 102 20 132/83 (99) 95 07/17/20 08:00 104 07/17/20 07:26 95 T-Piece 8.0 35 07/17/20 07:25 98 18 97 T-Piece 8.0 35 96 18 95 07/17/20 06:00 99.1 100 20 114/55 (74) 95 07/17/20 04:00 100 07/17/20 04:00 99.1 100 20 114/55 (74) 95 07/17/20 01:01 102 18 97 T-Piece 8.0 35 100 18 95 07/17/20 01:01 95 T-Piece 8.0 35 07/17/20 00:00 97 07/17/20 00:00 99.6 107 20 106/55 (72) 96 07/16/20 21:00 106 95/65 07/16/20 21:00 Trach Collar 10.0 07/16/20 20:00 99.8 106 20 95/65 (75) 94 07/16/20 20:00 100 07/16/20 19:47 94 T-Piece 8.0 35 07/16/20 19:41 108 18 97 T-Piece 8.0 35 102 18 94 07/16/20 16:00 100.1 102 20 103/66 (78) 99 07/16/20 16:00 94 Intake and Output 07/16/20 07/17/20 18:59 06:59 Intake Total 1950 ml 60 ml Output Total 500 ml 1700 ml Balance 1450 ml -1640 ml IV Total 1230 ml Tube Feeding 720 ml 60 ml Output Urine Total 500 ml 1700 ml # Voids 1 # Bowel Movements 1 Laboratory Tests 07/17/20 06:50: White Blood Count 6.1, Red Blood Count 2.87L, Hemoglobin 7.4L, Hematocrit 25.9L, Mean Corpuscular Volume 90#, Mean Corpuscular Hemoglobin 25.9L, Mean Corpuscular Hemoglobin Concent 28.7L, Red Cell Distribution Width 19.3H, Platelet Count 314, Mean Platelet Volume 5.8L, Neutrophils (%) (Auto) , Lymphocytes (%) (Auto) , Monocytes (%) (Auto) , Eosinophils (%) (Auto) , Basophils (%) (Auto) , Differential Total Cells Counted 100, Neutrophils % (Manual) 72, Lymphocytes % (Manual) 14L, Monocytes % (Manual) 5, Eosinophils % (Manual) 9H, Basophils % (Manual) 0, Band Neutrophils 0, Platelet Estimate Adequate, Platelet Morphology Normal, Hypochromasia 1+, Anisocytosis 2+, Ovalocytes Occasional, Sodium Level 147H, Potassium Level 4.2, Chloride Level 114H, Carbon Dioxide Level 28, Anion Gap 5, Blood Urea Nitrogen 20H, Creatinine 1.1, Estimat Glomerular Filtration Rate > 60, Glucose Level 144H, Calcium Level 8.2L Height (Feet): 5 Height (Inches): 5.00 Weight (Pounds): 150 General Appearance: WD/WN, alert Neck: supple Cardiovascular: regular rhythm Respiratory/Chest: chest wall non-tender, lungs clear, normal breath sounds, no respiratory distress, no accessory muscle use Abdomen: normal bowel sounds, non tender, soft, no organomegaly, no mass Edema: no edema noted Arm (L), no edema noted Arm (R) Neurologic: alert Assessment/Plan Problem List: (1) Anemia ICD Codes: D64.9 - Anemia, unspecified SNOMED: 867747164, 570584330 Qualifiers: Qualified Codes: D64.9 - Anemia, unspecified (2) Pleural effusion, left ICD Codes: J90 - Pleural effusion, not elsewhere classified SNOMED: 73123022, 557166169 (3) Malfunction of gastrostomy tube ICD Codes: K94.23 - Gastrostomy malfunction SNOMED: 867763187 (4) Acute respiratory failure with hypoxia ICD Codes: J96.01 - Acute respiratory failure with hypoxia SNOMED: 63093209, 533210833 (5) HCAP (healthcare-associated pneumonia) ICD Codes: J18.9 - Pneumonia, unspecified organism SNOMED: 496905862, 078070770 Status: stable, progressing Assessment/Plan: iv abx follow up cultures monitor cxr vent support resp rx tube feeds skin care turn q2 dvt/stress ulcer prophylaxis Angel Jaramillo MD Jul 17, 2020 15:45
--- NOTE | 2020-07-17 16:09 | Infectious Diseases Prog Note ---
Assessment/Plan Assessment/Plan A: 1. Possible aspiration pneumonia. COVID19 test is negative. 2. Urinary tract infection. 3. Hypertension. 4. Atrial fibrillation. 5. anemia 6. S/p tracheostomy 7. s/p GT 8. Left pleural effusion 9. Bacteremia with Staph epidermidis 10. ? PICC line infection PLAN: 1. Continue cefepime & Vancomycin 2. Consider PICC line change Subjective ROS Limited/Unobtainable: Yes Allergies: Coded Allergies: No Known Allergies (Unverified , 11/02/19) Objective Last 24 Hour Vital Signs Date Time Temp Pulse Resp B/P (MAP) Pulse Ox O2 Delivery O2 Flow Rate FiO2 07/17/20 13:10 99 18 100 T-Piece 8.0 35 98 18 98 07/17/20 13:10 98 T-Piece 8.0 35 07/17/20 12:00 92 07/17/20 08:29 102 132/83 07/17/20 08:00 99.3 102 20 132/83 (99) 95 07/17/20 08:00 104 07/17/20 07:26 95 T-Piece 8.0 35 07/17/20 07:25 98 18 97 T-Piece 8.0 35 96 18 95 07/17/20 06:00 99.1 100 20 114/55 (74) 95 07/17/20 04:00 100 07/17/20 04:00 99.1 100 20 114/55 (74) 95 07/17/20 01:01 102 18 97 T-Piece 8.0 35 100 18 95 07/17/20 01:01 95 T-Piece 8.0 35 07/17/20 00:00 97 07/17/20 00:00 99.6 107 20 106/55 (72) 96 07/16/20 21:00 106 95/65 07/16/20 21:00 Trach Collar 10.0 07/16/20 20:00 99.8 106 20 95/65 (75) 94 07/16/20 20:00 100 07/16/20 19:47 94 T-Piece 8.0 35 07/16/20 19:41 108 18 97 T-Piece 8.0 35 102 18 94 Height (Feet): 5 Height (Inches): 5.00 Weight (Pounds): 150 HEENT: mucous membranes moist, status post trach Respiratory/Chest: lungs clear, other - on T bar Cardiovascular: normal rate, other - R arm PICC line Abdomen: soft, non tender, other - GT feeding Extremities: no edema Skin: ulcers Laboratory Tests Test 07/17/20 06:50 White Blood Count 6.1 K/UL (4.8-10.8) Red Blood Count 2.87 M/UL (4.70-6.10) L Hemoglobin 7.4 G/DL (14.2-18.0) L Hematocrit 25.9 % (42.0-52.0) L Mean Corpuscular Volume 90 FL (80-99) # Mean Corpuscular Hemoglobin 25.9 PG (27.0-31.0) L Mean Corpuscular Hemoglobin Concent 28.7 G/DL (32.0-36.0) L Red Cell Distribution Width 19.3 % (11.6-14.8) H Platelet Count 314 K/UL (150-450) Mean Platelet Volume 5.8 FL (6.5-10.1) L Neutrophils (%) (Auto) % (45.0-75.0) Lymphocytes (%) (Auto) % (20.0-45.0) Monocytes (%) (Auto) % (1.0-10.0) Eosinophils (%) (Auto) % (0.0-3.0) Basophils (%) (Auto) % (0.0-2.0) Differential Total Cells Counted 100 Neutrophils % (Manual) 72 % (45-75) Lymphocytes % (Manual) 14 % (20-45) L Monocytes % (Manual) 5 % (1-10) Eosinophils % (Manual) 9 % (0-3) H Basophils % (Manual) 0 % (0-2) Band Neutrophils 0 % (0-8) Platelet Estimate Adequate Platelet Morphology Normal Hypochromasia 1+ Anisocytosis 2+ Ovalocytes Occasional Sodium Level 147 MMOL/L (136-145) H Potassium Level 4.2 MMOL/L (3.5-5.1) Chloride Level 114 MMOL/L (98-107) H Carbon Dioxide Level 28 MMOL/L (21-32) Anion Gap 5 mmol/L (5-15) Blood Urea Nitrogen 20 mg/dL (7-18) H Creatinine 1.1 MG/DL (0.55-1.30) Estimat Glomerular Filtration Rate > 60 mL/min (>60) Glucose Level 144 MG/DL (74-106) H Calcium Level 8.2 MG/DL (8.5-10.1) L Current Medications Medications (Trade) Dose Ordered Sig/Clive Route PRN Reason Start Time Stop Time Status Last Admin Dose Admin Acetaminophen (Tylenol) 650 mg Q4H PRN RECTAL Temp >100.5 07/14/20 13:30 08/13/20 13:29 Albuterol/ Ipratropium (Albuterol/ Ipratropium) 3 ml Q6HRT HHN 07/14/20 19:00 07/19/20 18:59 07/17/20 13:00 Amiodarone HCl (Cordarone) 200 mg Q12HR GT 07/14/20 21:00 10/12/20 20:59 07/17/20 08:30 Apixaban (Eliquis) 5 mg BID GT 07/15/20 18:15 10/13/20 18:14 07/17/20 08:30 Ascorbic Acid (Vitamin C) 250 mg TWICE A DAY GT 07/16/20 18:00 08/15/20 17:59 07/17/20 08:28 Atorvastatin Calcium (Lipitor) 80 mg QHS ORAL 07/14/20 21:00 10/12/20 20:59 07/16/20 21:49 Carvedilol (Coreg) 6.25 mg EVERY 12 HOURS ORAL 07/15/20 09:00 08/14/20 08:59 07/17/20 08:29 Cefepime HCl 1 gm/ Dextrose 55 ml @ 110 mls/hr Q12HR IVPB 07/14/20 21:00 07/21/20 20:59 07/17/20 08:45 Chlorhexidine Gluconate (Jennifer-Hex 2%) 1 applic DAILY@2000 TOPIC 07/17/20 20:00 10/15/20 19:59 Dextrose/Sodium Chloride 1,000 ml @ 75 mls/hr [id number] IV 07/14/20 17:30 08/13/20 17:29 07/17/20 08:31 Famotidine (Pepcid) 20 mg Q12HR GT 07/16/20 21:00 10/14/20 20:59 07/17/20 08:29 Finasteride (Proscar) 5 mg DAILY ORAL 07/15/20 09:00 10/13/20 08:59 07/17/20 08:29 Levetiracetam (Keppra) 1,000 mg Q12HR ORAL 07/14/20 21:00 08/13/20 20:59 07/17/20 08:29 Multivitamins (Multivitamins) 1 tab DAILY GT 07/17/20 09:00 08/16/20 08:59 07/17/20 08:28 Sodium Hypochlorite (Dakin's Half Strength) 1 applic DAILY TOPIC 07/16/20 13:00 08/15/20 12:59 07/17/20 11:30 Vancomycin HCl (Vanco pharmacy to dose) 1 ea DAILY PRN MISC Per rx protocol 07/16/20 11:30 08/15/20 11:29 Vancomycin HCl 750 mg/Sodium Chloride 275 ml @ 183.333 mls/hr Q12HR@0200,1400 IVPB 07/16/20 14:00 07/21/20 13:59 07/17/20 14:04 Zinc Sulfate (Zinc Sulfate) 220 mg DAILY GT 07/17/20 09:00 07/27/20 08:59 07/17/20 08:29 Steve Nelson MD Jul 17, 2020 16:09
--- NOTE | 2020-07-17 16:59 | Consultation ---
DATE OF CONSULTATION: 07/17/2020 NEPHROLOGY CONSULTATION CONSULTING PHYSICIAN: Benjamin Quintero MD. ATTENDING PHYSICIAN: Nikita Devlin MD. REASON FOR CONSULTATION: Elevated BUN and creatinine. HISTORY OF PRESENT ILLNESS: This is a 69-year-old male admitted with non-COVID pneumonia. I am asked to see the patient for elevation of BUN and creatinine. PAST MEDICAL HISTORY: 1. Ventilator-dependent respiratory failure, status post tracheostomy. 2. Status post craniotomy. 3. Ischemic heart disease, status post RCA occlusion. 4. Status post ventricular peritoneal shunt. 5. Seizure disorder. 6. Gastroesophageal reflux disease. 7. Status post gastrojejunostomy tube. 8. Hypertensive cardiovascular disease. 9. Atrial fibrillation. 10. History of DVT. 11. History of pulmonary embolism. MEDICATIONS: IV cefepime, IV fluids D5 half NS, IV vancomycin, Tylenol as needed, amiodarone, Eliquis, vitamin C, atorvastatin, Coreg, DuoNeb inhalation, famotidine, Proscar, Keppra via G tube, multivitamins, and zinc sulfate. ALLERGIES: No known drug allergies. FAMILY HISTORY: Unable to obtain due to mental status. SOCIAL HISTORY: Unable to obtain due to mental status. REVIEW OF SYSTEMS: Unable to obtain due to mental status. PHYSICAL EXAMINATION: GENERAL: This is an elderly male, who is in no acute distress. VITAL SIGNS: Blood pressure 100/50, pulse 90 and irregular, respirations 18, and temperature 99.3, axillary. HEENT: The head is normocephalic and atraumatic. Pupils are equal, round, and reactive to light. NECK: He has a tracheostomy and he is currently on T tube. LUNGS: Bilateral rhonchi. HEART: Irregularly irregular. ABDOMEN: Soft and nontender. He has a G-tube. Bowel sounds were diminished. EXTREMITIES: The ankles are bilaterally dressed. No clubbing or cyanosis. NEUROLOGIC: The patient is obtunded. There were no gross focal findings. LABORATORY DATA: CBC, white count 6100, hematocrit 25.9, and platelet count 314,000. Chemistry, sodium 147, potassium 4.2, BUN 20, and creatinine 1.1. ASSESSMENT AND PLAN: 1. Volume depletion, resolving. 2. Hypernatremia, resolving. 3. Ventilator-dependent respiratory failure, status post tracheostomy. 4. Status post craniotomy. 5. Ischemic heart disease, status post RCA occlusion. 6. Status post ventricular peritoneal shunt. 7. Seizure disorder. 8. Gastroesophageal reflux disease. 9. Status post gastrojejunostomy tube. 10. Hypertensive cardiovascular disease. 11. Atrial fibrillation. 12. History of DVT. 13. History of pulmonary embolism. Thank you, Dr. Devlin, for letting me participate in the care of this complex patient. Benjamin Quintero M.D. DR: TABITHA JOB#: [id number] CC: JULIANE
--- NOTE | 2020-07-17 19:47 | NUR ---
NURSE HAND-OFF REPORT: Important Events on Shift: Patient is tolerating G-tube feeding well. Dr. Steve Nelson plan of care is to continue Vanco and cefepin, consider PICC change. Monitor labs. Patient Status: Alert and oriented x zero. Diet: Jevity 1.2@60cc/hour, no residual, tolerating weel. Pending Orders: am labs Pending Results/Labs:Vanco trough at 0100 on 07/18/20, CBC CMP at 0440 on 07/18/20. Pending MD notification:N/A Latest Vital Signs: Temperature 100.0 , Pulse 99 , B/P 131 /72 , Respiratory Rate 20 , O2 SAT 100 , Trach Collar, O2 Flow Rate 8.0 . Vital Sign Comment: N/A EKG Rhythm: Sinus Rhythm Rhythm change?: N MD Notified?: - MD Response: Latest Ramirez Fall Score: 50 Fall Risk: High Risk Safety Measures: Call light Within Reach, Bed Alarm Zone 1, Side Rails Side Rails x3, Bed position Low and Locked. Fall Precautions: Yellow Socks Yellow Gown Patient Fall Education Report given to Brant Chauhan RN.
--- NOTE | 2020-07-17 20:21 | Neurology Progress Note ---
Interim History Interim History ROS Limited/Unobtainable: Yes Interim History remains somnolent, opening eyes to voice Objective Physical Exam Last Vital Signs Date Time Temp Pulse Resp B/P (MAP) Pulse Ox O2 Delivery O2 Flow Rate FiO2 07/17/20 19:35 100 T-Piece 8.0 35 07/17/20 19:35 112 18 107 18 07/17/20 16:00 100.0 131/72 (91) Laboratory Tests Test 07/17/20 06:50 White Blood Count 6.1 K/UL (4.8-10.8) Red Blood Count 2.87 M/UL (4.70-6.10) L Hemoglobin 7.4 G/DL (14.2-18.0) L Hematocrit 25.9 % (42.0-52.0) L Mean Corpuscular Volume 90 FL (80-99) # Mean Corpuscular Hemoglobin 25.9 PG (27.0-31.0) L Mean Corpuscular Hemoglobin Concent 28.7 G/DL (32.0-36.0) L Red Cell Distribution Width 19.3 % (11.6-14.8) H Platelet Count 314 K/UL (150-450) Mean Platelet Volume 5.8 FL (6.5-10.1) L Neutrophils (%) (Auto) % (45.0-75.0) Lymphocytes (%) (Auto) % (20.0-45.0) Monocytes (%) (Auto) % (1.0-10.0) Eosinophils (%) (Auto) % (0.0-3.0) Basophils (%) (Auto) % (0.0-2.0) Differential Total Cells Counted 100 Neutrophils % (Manual) 72 % (45-75) Lymphocytes % (Manual) 14 % (20-45) L Monocytes % (Manual) 5 % (1-10) Eosinophils % (Manual) 9 % (0-3) H Basophils % (Manual) 0 % (0-2) Band Neutrophils 0 % (0-8) Platelet Estimate Adequate Platelet Morphology Normal Hypochromasia 1+ Anisocytosis 2+ Ovalocytes Occasional Sodium Level 147 MMOL/L (136-145) H Potassium Level 4.2 MMOL/L (3.5-5.1) Chloride Level 114 MMOL/L (98-107) H Carbon Dioxide Level 28 MMOL/L (21-32) Anion Gap 5 mmol/L (5-15) Blood Urea Nitrogen 20 mg/dL (7-18) H Creatinine 1.1 MG/DL (0.55-1.30) Estimat Glomerular Filtration Rate > 60 mL/min (>60) Glucose Level 144 MG/DL (74-106) H Calcium Level 8.2 MG/DL (8.5-10.1) L Head: normocophalic Neck: no rigidity EENT: benign Neurologic Exam Objective lethargic, pupils reactive not following withdraws to pain Impression/Recommendations Problems: (1) Malfunction of gastrostomy tube (2) Anemia (3) Pleural effusion, left (4) Acute respiratory failure with hypoxia (5) HCAP (healthcare-associated pneumonia) (6) UTI (urinary tract infection) Status: stable, progressing Diagnostic Impression Recurrent sepsis Possible aspiration Encephalopathy, acute on chronic rule out seizures map > 65 ro covid cont atb fu cultures no need for AED now Gerson Singh MD Jul 17, 2020 20:21
[2020-07-17] MEDS: Atorvastatin 80mg tab ORAL SCH (21:25)
[2020-07-17] MEDS: Dyna-Hex 2% Top Sol 2oz TOPIC SCH (21:25)
--- NOTE | 2020-07-17 23:34 | NUR ---
NURSE NOTES: Pt received from SELIN Koch. Pt is resting comfortably in bed and shows no signs of pain. Pt is A/Ox0 and nonverbal; pt is bedbound and requires turning q2hr. Pt is on cardiac monitoring SR and asymptomatic. Pt has Trach collar running 10LPM 35%SPO2 and sating well; breathing is unlabored. Pt has KIZZY PICC line running D51/2NS 75 ml/hr. Bed is locked and in lowest position with call light within reach. Will continue to monitor.
[2020-07-18] VITALS: BP 115/62
[2020-07-18] MEDS: Vancomycin 750 MG in NS 275 ML IVPB SCH ×2 (02:00→14:46)
[2020-07-18] MEDS: Albuterol/Ipratropium 3ml neb HHN SCH ×4 (02:02→19:38)
[2020-07-18 04:00] VITALS: BP 116/55
[2020-07-18 04:46] LABS: HEMATOCRIT 19.1 % (42.0-52.0); MEAN CORPUSCULAR VOLUME 85 FL (80-99); PLATELET COUNT 269 K/UL (150-450); RED BLOOD COUNT 2.24 M/UL (4.70-6.10); RED CELL DISTRIBUTION WIDTH 20.2 % (11.6-14.8); WHITE BLOOD COUNT 6.3 K/UL (4.8-10.8)
[2020-07-18 05:04] LABS: HEMOGLOBIN 5.9 G/DL (14.2-18.0)
[2020-07-18 05:07] LABS: ALANINE AMINOTRANSFERASE 16 U/L (12-78); ALBUMIN 0.9 G/DL (3.4-5.0); ALBUMIN/GLOBULIN RATIO 0.2 (1.0-2.7); ALKALINE PHOSPHATASE 91 U/L (46-116); ASPARTATE AMINO TRANSFERASE 16 U/L (15-37); BILIRUBIN,TOTAL 0.3 MG/DL (0.2-1.0); BLOOD UREA NITROGEN 21 mg/dL (7-18); CALCIUM 7.8 MG/DL (8.5-10.1); CARBON DIOXIDE 29 MMOL/L (21-32)
--- NOTE | 2020-07-18 05:20 | NUR ---
NURSE NOTES: Received critical lab value alert of Hemoglobin 5.9. Notified Dr. Devlin and Dr. Augustine over phone message and awaiting reply for further orders. Pt has peripheral pulses x4 and saturating well on room air. Will continue to monitor.
--- NOTE | 2020-07-18 06:36 | NUR ---
NURSE HAND-OFF REPORT: Important Events on Shift:Pt has critical value Hgb 5.9; notified MD Dr Devlin and received order for 2 units PRBC Patient Status: Low hemoglobin with peripheral pulsesx4 Diet: Jevity 60ml/hr Pending Orders: 2 units PRBCs Pending Results/Labs:Hgb 5.9 Pending MD notification: Latest Vital Signs: Temperature 99.8 , Pulse 100 , B/P 116 /55 , Respiratory Rate 20 , O2 SAT 95 , Trach Collar, O2 Flow Rate 8.0 . Vital Sign Comment: VSS EKG Rhythm: Sinus Tachycardia Rhythm change?: N MD Notified?: - MD Response: Latest Ramirez Fall Score: 50 Fall Risk: High Risk Safety Measures: Call light Within Reach, Bed Alarm Zone 1, Side Rails Side Rails x3, Bed position Low and Locked. Fall Precautions: Yellow Socks Yellow Gown Patient Fall Education Report given to SELIN Koch.
[2020-07-18 08:00] VITALS: BP 104/59
--- NOTE | 2020-07-18 08:01 | NUR ---
NURSE NOTES: Received report from Brant Chauhan RN. Patient sitting HOB at 45 degrees, sleeping, respirations at 18 breaths per minute, trach in place, [place] Cather in place, SCD's in place, Soft care mattress in place, bed in lowest position, wheels locked, side rails up x 2, padded side rails, in no apparent distress.
[2020-07-18 09:00] LABS: CHLORIDE 112 MMOL/L (98-107); SODIUM 145 MMOL/L (136-145)
[2020-07-18] MEDS: Carvedilol 6.25mg Tab ORAL SCH ×2 (09:00→20:49)
[2020-07-18] MEDS: Ascorbic Acid 500mg tab GT SCH ×2 (09:13→18:16)
[2020-07-18] MEDS: Amiodarone 200mg tab GT SCH ×2 (09:13→20:49)
[2020-07-18] MEDS: Eliquis 5mg tablet GT SCH (09:14)
[2020-07-18] MEDS: Zinc Sulfate 220mg GT SCH (09:14)
[2020-07-18] MEDS: Cefepime HCl 1 GM in D5W 55 ML IVPB SCH ×2 (09:14→20:50)
[2020-07-18] MEDS: D5 1/2NS 1,000 ML IV SCH ×2 (09:36→22:54)
[2020-07-18] MEDS: Dakin's 0.25% (Half Strength) 16oz TOPIC SCH (09:42)
--- NOTE | 2020-07-18 10:45 | Pulmonology Progress Note ---
Subjective ROS Limited/Unobtainable: Yes Constitutional: Denies: fever Allergies: Coded Allergies: No Known Allergies (Unverified , 11/02/19) All Systems: reviewed and negative except above Subjective CARE NOTED nonverbal on oxygen noted fevers to 104 anemic Objective Last 24 Hour Vital Signs Date Time Temp Pulse Resp B/P (MAP) Pulse Ox O2 Delivery O2 Flow Rate FiO2 07/18/20 09:00 96 104/59 07/18/20 08:45 100 T-Piece 8.0 35 07/18/20 08:45 96 18 95 T-Piece 8.0 35 85 20 100 07/18/20 08:00 95 07/18/20 08:00 101.7 93 20 104/59 (74) 96 07/18/20 04:00 99.8 98 20 116/55 (75) 95 07/18/20 04:00 100 07/18/20 02:05 110 18 100 T-Piece 8.0 35 105 18 98 07/18/20 02:04 99 T-Piece 8.0 35 07/18/20 00:00 99.5 96 24 115/62 (79) 96 07/18/20 00:00 98 07/17/20 21:27 110 135/65 07/17/20 21:00 Trach Collar 10.0 07/17/20 20:00 99.8 110 28 135/65 (88) 96 07/17/20 20:00 106 07/17/20 19:35 100 T-Piece 8.0 35 07/17/20 19:35 112 18 100 T-Piece 8.0 35 107 18 98 07/17/20 16:00 99 07/17/20 16:00 100.0 97 20 131/72 (91) 94 07/17/20 13:10 99 18 100 T-Piece 8.0 35 98 18 98 07/17/20 13:10 98 T-Piece 8.0 35 07/17/20 12:00 92 07/17/20 12:00 99.5 92 20 131/72 (91) 94 Intake and Output 07/17/20 07/18/20 19:00 07:00 Intake Total 1890 ml 60 ml Output Total 1300 ml 800 ml Balance 590 ml -740 ml IV Total 1230 ml Tube Feeding 660 ml 60 ml Output Urine Total 1300 ml 800 ml Objective WDWN NAD chronically ill moderate breath sounds bilaterally without rhonchi or wheeze [id number] NABS nontender GT no CCE nonfocal poorly responsive Laboratory Tests 07/18/20 00:50: Vancomycin Level Trough 17.3H 07/18/20 04:00: White Blood Count 6.3, Red Blood Count 2.24L, Hemoglobin 5.9*L, Hematocrit 19.1L , Mean Corpuscular Volume 85, Mean Corpuscular Hemoglobin 26.2L, Mean Corpuscular Hemoglobin Concent 30.6L, Red Cell Distribution Width 20.2H, Platelet Count 269, Mean Platelet Volume 5.9L, Neutrophils (%) (Auto) , Lymphocytes (%) (Auto) , Monocytes (%) (Auto) , Eosinophils (%) (Auto) , Basophils (%) (Auto) , Neutrophils % (Manual) [Pending], Lymphocytes % (Manual) [Pending], Platelet Estimate [Pending], Platelet Morphology [Pending], Sodium Level 145, Potassium Level 4.0, Chloride Level 112H, Carbon Dioxide Level 29, Blood Urea Nitrogen 21H, Creatinine 1.0, Estimat Glomerular Filtration Rate > 60, Glucose Level 139H, Calcium Level 7.8L, Total Bilirubin 0.3, Aspartate Amino Transf (AST/SGOT) 16, Alanine Aminotransferase (ALT/SGPT) 16, Alkaline Phosphatase 91, Total Protein 5.6L, Albumin 0.9L, Globulin 4.7, Albumin/Globulin Ratio 0.2L Current Medications Medications (Trade) Dose Ordered Sig/Clive Route PRN Reason Start Time Stop Time Status Last Admin Dose Admin Acetaminophen (Tylenol) 650 mg Q4H PRN GT Temp >100.5 07/18/20 09:30 08/17/20 09:29 Acetaminophen (Tylenol) 650 mg Q4H PRN RECTAL Temp >100.5 07/14/20 13:30 08/13/20 13:29 Albuterol/ Ipratropium (Albuterol/ Ipratropium) 3 ml Q6HRT HHN 07/14/20 19:00 07/19/20 18:59 07/18/20 08:45 Amiodarone HCl (Cordarone) 200 mg Q12HR GT 07/14/20 21:00 10/12/20 20:59 07/18/20 09:13 Apixaban (Eliquis) 5 mg BID GT 07/15/20 18:15 10/13/20 18:14 07/18/20 09:14 Ascorbic Acid (Vitamin C) 250 mg TWICE A DAY GT 07/16/20 18:00 08/15/20 17:59 07/18/20 09:13 Atorvastatin Calcium (Lipitor) 80 mg QHS ORAL 07/14/20 21:00 10/12/20 20:59 07/17/20 21:25 Carvedilol (Coreg) 6.25 mg EVERY 12 HOURS ORAL 07/15/20 09:00 08/14/20 08:59 07/17/20 21:27 Cefepime HCl 1 gm/ Dextrose 55 ml @ 110 mls/hr Q12HR IVPB 07/14/20 21:00 07/21/20 20:59 07/18/20 09:14 Chlorhexidine Gluconate (Jennifer-Hex 2%) 1 applic DAILY@2000 TOPIC 07/17/20 20:00 10/15/20 19:59 07/17/20 21:25 Dextrose/Sodium Chloride 1,000 ml @ 75 mls/hr [id number] IV 07/14/20 17:30 08/13/20 17:29 07/18/20 09:36 Famotidine (Pepcid) 20 mg Q12HR GT 07/16/20 21:00 10/14/20 20:59 07/18/20 09:13 Finasteride (Proscar) 5 mg DAILY ORAL 07/15/20 09:00 10/13/20 08:59 07/18/20 09:14 Levetiracetam (Keppra) 1,000 mg Q12HR ORAL 07/14/20 21:00 08/13/20 20:59 07/18/20 09:13 Multivitamins (Multivitamins) 1 tab DAILY GT 07/17/20 09:00 08/16/20 08:59 07/18/20 09:21 Sodium Hypochlorite (Dakin's Half Strength) 1 applic DAILY TOPIC 07/16/20 13:00 08/15/20 12:59 07/18/20 09:42 Vancomycin HCl (Vanco pharmacy to dose) 1 ea DAILY PRN MISC Per rx protocol 07/16/20 11:30 08/15/20 11:29 Vancomycin HCl 750 mg/Sodium Chloride 275 ml @ 183.333 mls/hr Q12HR@0200,1400 IVPB 07/16/20 14:00 07/21/20 13:59 07/18/20 02:00 Zinc Sulfate (Zinc Sulfate) 220 mg DAILY GT 07/17/20 09:00 07/27/20 08:59 07/18/20 09:14 Assessment/Plan Assessment/Plan Impression: Healthcare-associated pneumonia Acute respiratory failure with hypoxia Tracheostomy status Pleural effusion, left-recurrent Decubitus ulcers Urinary tract infection Anemia S/p previous Craniotomy, RCA occlusion, [employer] shunt Seizure history GERD, dysphagia s/p GJ tube h/o Hypertension h/o Atrial fibrillation Previous DVT and Pulmonary Embolism, Plan IV Antibiotics monitor for change transfuse ID to comment on ongoing fevers J tube feeds as tolerated O2 - needs noted 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
[2020-07-18 12:00] VITALS: BP 116/58
--- NOTE | 2020-07-18 12:17 | General Progress Note ---
Subjective ROS Limited/Unobtainable: No Constitutional: Reports: fever HEENT: Reports: no symptoms Cardiovascular: Reports: no symptoms Respiratory: Reports: shortness of breath, sputum Gastrointestinal/Abdominal: Reports: difficulty swallowing Genitourinary: Reports: no symptoms Neurologic/Psychiatric: Reports: no symptoms Endocrine: Reports: no symptoms Hematologic/Lymphatic: Reports: anemia Allergies: Coded Allergies: No Known Allergies (Unverified , 11/02/19) All Systems: reviewed and negative except above Subjective poorly responsive. on trach collar. no bleeding. decreased h/h. +fevers. cultures noted. Objective Last 24 Hour Vital Signs Date Time Temp Pulse Resp B/P (MAP) Pulse Ox O2 Delivery O2 Flow Rate FiO2 07/18/20 09:00 96 104/59 07/18/20 08:45 100 T-Piece 8.0 35 07/18/20 08:45 96 18 95 T-Piece 8.0 35 85 20 100 07/18/20 08:00 95 07/18/20 08:00 101.7 93 20 104/59 (74) 96 07/18/20 04:00 99.8 98 20 116/55 (75) 95 07/18/20 04:00 100 07/18/20 02:05 110 18 100 T-Piece 8.0 35 105 18 98 07/18/20 02:04 99 T-Piece 8.0 35 07/18/20 00:00 99.5 96 24 115/62 (79) 96 07/18/20 00:00 98 07/17/20 21:27 110 135/65 07/17/20 21:00 Trach Collar 10.0 07/17/20 20:00 99.8 110 28 135/65 (88) 96 07/17/20 20:00 106 07/17/20 19:35 100 T-Piece 8.0 35 07/17/20 19:35 112 18 100 T-Piece 8.0 35 107 18 98 07/17/20 16:00 99 07/17/20 16:00 100.0 97 20 131/72 (91) 94 07/17/20 13:10 99 18 100 T-Piece 8.0 35 98 18 98 07/17/20 13:10 98 T-Piece 8.0 35 Intake and Output 07/17/20 07/18/20 19:00 07:00 Intake Total 1890 ml 60 ml Output Total 1300 ml 800 ml Balance 590 ml -740 ml IV Total 1230 ml Tube Feeding 660 ml 60 ml Output Urine Total 1300 ml 800 ml Laboratory Tests 07/18/20 00:50: Vancomycin Level Trough 17.3H 07/18/20 04:00: White Blood Count 6.3, Red Blood Count 2.24L, Hemoglobin 5.9*L, Hematocrit 19.1L , Mean Corpuscular Volume 85, Mean Corpuscular Hemoglobin 26.2L, Mean Corpuscular Hemoglobin Concent 30.6L, Red Cell Distribution Width 20.2H, Platelet Count 269, Mean Platelet Volume 5.9L, Neutrophils (%) (Auto) , Lymphocytes (%) (Auto) , Monocytes (%) (Auto) , Eosinophils (%) (Auto) , Basophils (%) (Auto) , Differential Total Cells Counted 100, Neutrophils % (Manual) 81H, Lymphocytes % (Manual) 11L, Monocytes % (Manual) 7, Eosinophils % (Manual) 1, Basophils % (Manual) 0, Band Neutrophils 0, Platelet Estimate Adequate, Platelet Morphology Normal, Hypochromasia 1+, Anisocytosis 3+, Ovalocytes Occasional, Sodium Level 145, Potassium Level 4.0, Chloride Level 112H, Carbon Dioxide Level 29, Blood Urea Nitrogen 21H, Creatinine 1.0, Estimat Glomerular Filtration Rate > 60, Glucose Level 139H, Calcium Level 7.8L, Total Bilirubin 0.3, Aspartate Amino Transf (AST/SGOT) 16, Alanine Aminotransferase (ALT/SGPT) 16, Alkaline Phosphatase 91, Total Protein 5.6L, Albumin 0.9L, Globulin 4.7, Albumin/Globulin Ratio 0.2L Height (Feet): 5 Height (Inches): 5.00 Weight (Pounds): 150 General Appearance: WD/WN, confused EENT: normal ENT inspection Neck: normal alignment Cardiovascular: normal rate, regular rhythm Respiratory/Chest: rhonchi - bilaterally Abdomen: normal bowel sounds, non tender, soft, no organomegaly Edema: no edema noted Leg (L), no edema noted Leg (R) Neurologic: disoriented, aphasia Skin: normal pigmentation Assessment/Plan Problem List: (1) Anemia ICD Codes: D64.9 - Anemia, unspecified SNOMED: 278882936, 870167532 Qualifiers: Qualified Codes: D64.9 - Anemia, unspecified (2) Pleural effusion, left ICD Codes: J90 - Pleural effusion, not elsewhere classified SNOMED: 48646143, 516486087 (3) Malfunction of gastrostomy tube ICD Codes: K94.23 - Gastrostomy malfunction SNOMED: 047225427 (4) Acute respiratory failure with hypoxia ICD Codes: J96.01 - Acute respiratory failure with hypoxia SNOMED: 63370285, 760766377 (5) HCAP (healthcare-associated pneumonia) ICD Codes: J18.9 - Pneumonia, unspecified organism SNOMED: 879351731, 006537393 Status: stable, progressing Assessment/Plan: iv abx follow up cultures monitor cxr trach care transfuse monitor for bleeding resp rx tube feeds skin care turn q2 dvt/stress ulcer prophylaxis Angel Jaramillo MD Jul 18, 2020 12:17
--- NOTE | 2020-07-18 13:11 | NUR ---
CASE MANAGEMENT: REVIEW 07/18/2020 SI: PNA. ANEMIA. UTI VS: T 101.7 HR 93 RR 20 B/P 104/59 SATS 96% ON 10L/TPIECE FIO2 35 LABS: HGB 5.9 HCT 19.1 CL 112 BUN 21 GLU 139 CA 7.8 IS: D5NS @ 75 mL/HR COREG PO Q12H ELIQUIS GT BID PROSCAR PO QD CEFEPIME IV Q12H AMIODARONE GT Q12H KEPPRA PO Q12H VANCO IV Q12H LIPITOR PO QHS : TO TELEMETRY
--- NOTE | 2020-07-18 13:18 | Surgery Progress Note ---
Surgery Progress Note Subjective Additional Comments anemia h/h low 2 prbc today no n/v otherwise comfortable Objective Last 24 Hour Vital Signs Date Time Temp Pulse Resp B/P (MAP) Pulse Ox O2 Delivery O2 Flow Rate FiO2 07/18/20 12:00 99.9 103 18 116/58 (77) 96 07/18/20 09:00 96 104/59 07/18/20 09:00 Trach Collar 10.0 07/18/20 08:45 100 T-Piece 8.0 35 07/18/20 08:45 96 18 95 T-Piece 8.0 35 85 20 100 07/18/20 08:00 95 07/18/20 08:00 101.7 93 20 104/59 (74) 96 07/18/20 04:00 99.8 98 20 116/55 (75) 95 07/18/20 04:00 100 07/18/20 02:05 110 18 100 T-Piece 8.0 35 105 18 98 07/18/20 02:04 99 T-Piece 8.0 35 07/18/20 00:00 99.5 96 24 115/62 (79) 96 07/18/20 00:00 98 07/17/20 21:27 110 135/65 07/17/20 21:00 Trach Collar 10.0 07/17/20 20:00 99.8 110 28 135/65 (88) 96 07/17/20 20:00 106 07/17/20 19:35 100 T-Piece 8.0 35 07/17/20 19:35 112 18 100 T-Piece 8.0 35 107 18 98 07/17/20 16:00 99 07/17/20 16:00 100.0 97 20 131/72 (91) 94 I&O Intake and Output 07/17/20 07/18/20 19:00 07:00 Intake Total 1890 ml 60 ml Output Total 1300 ml 800 ml Balance 590 ml -740 ml IV Total 1230 ml Tube Feeding 660 ml 60 ml Output Urine Total 1300 ml 800 ml Dressing: saturated Wound: other Cardiovascular: RSR Respiratory: decreased breath sounds Abdomen: soft, non-tender, present bowel sounds, non-distended Extremities: no edema, no tenderness, no cyanosis, pulses, other Laboratory Tests Test 07/18/20 00:50 07/18/20 04:00 Vancomycin Level Trough 17.3 ug/mL (5.0-12.0) H White Blood Count 6.3 K/UL (4.8-10.8) Red Blood Count 2.24 M/UL (4.70-6.10) L Hemoglobin 5.9 G/DL (14.2-18.0) *L Hematocrit 19.1 % (42.0-52.0) L Mean Corpuscular Volume 85 FL (80-99) Mean Corpuscular Hemoglobin 26.2 PG (27.0-31.0) L Mean Corpuscular Hemoglobin Concent 30.6 G/DL (32.0-36.0) L Red Cell Distribution Width 20.2 % (11.6-14.8) H Platelet Count 269 K/UL (150-450) Mean Platelet Volume 5.9 FL (6.5-10.1) L Neutrophils (%) (Auto) % (45.0-75.0) Lymphocytes (%) (Auto) % (20.0-45.0) Monocytes (%) (Auto) % (1.0-10.0) Eosinophils (%) (Auto) % (0.0-3.0) Basophils (%) (Auto) % (0.0-2.0) Differential Total Cells Counted 100 Neutrophils % (Manual) 81 % (45-75) H Lymphocytes % (Manual) 11 % (20-45) L Monocytes % (Manual) 7 % (1-10) Eosinophils % (Manual) 1 % (0-3) Basophils % (Manual) 0 % (0-2) Band Neutrophils 0 % (0-8) Platelet Estimate Adequate Platelet Morphology Normal Hypochromasia 1+ Anisocytosis 3+ Ovalocytes Occasional Sodium Level 145 MMOL/L (136-145) Potassium Level 4.0 MMOL/L (3.5-5.1) Chloride Level 112 MMOL/L (98-107) H Carbon Dioxide Level 29 MMOL/L (21-32) Blood Urea Nitrogen 21 mg/dL (7-18) H Creatinine 1.0 MG/DL (0.55-1.30) Estimat Glomerular Filtration Rate > 60 mL/min (>60) Glucose Level 139 MG/DL (74-106) H Calcium Level 7.8 MG/DL (8.5-10.1) L Total Bilirubin 0.3 MG/DL (0.2-1.0) Aspartate Amino Transf (AST/SGOT) 16 U/L (15-37) Alanine Aminotransferase (ALT/SGPT) 16 U/L (12-78) Alkaline Phosphatase 91 U/L (46-116) Total Protein 5.6 G/DL (6.4-8.2) L Albumin 0.9 G/DL (3.4-5.0) L Globulin 4.7 g/dL Albumin/Globulin Ratio 0.2 (1.0-2.7) L Plan Problems: (1) Decubitus skin ulcer Assessment & Plan: Pt presented on admission with PV shunt,Tracheostomy, Contractures and multiple Pressure Injuries.Skin assessed under tracheal collar. Skin is erythematous but without any open wounds. GT site is red and excoriated.Scattered senile purpuras bilat upper extremities. Full thickness Sacral Pressure Injury(L)11.8cm x (W)8cm. Base of wound is 75% mixed necrosis and slough,20% antonio. Bone is palpable at base. Edges are macerated. Mild odor noted. Small amt brown exudate noted. Periwound is indurated and maroon with additional erythema and scattered Partial thickness shearing. Full Thickness Pressure Injury L trochanteric with undermined borders.(L)5cm x (W)7cm x (D)2.6cm, undermining clockwise 11-2 by 4.2cm @11o'clock. Base of wound is 75%% mixed necrosis and slough,25% antonio. Wound has appearance of two wounds secondary necrotic bridge.In addition, periwound at clockwise 10-2o'clock the base is necrotic and fluctuant with marginal erythema. Small amt malodorous haemopurulent exudate noted. Full thickness Pressure Injury L Ischium(L)3.5cm x (W)2.0cm. Base of wound is 80% slough,20% antonio. Surrounding necrotic borders that are fluctuant.Small amt sanguineous exudate. Mild odor noted. Full thickness Pressure Injury lateral L Tibia to L lateral Malleolus(L)24.5cm x (W)3.5cm. Base of wound is antonio with scattered necrosis and slough, tendon exposure. Semi-detached borders that indurated and macerated with an area of soft necrosis at proximal borders of wound. Small amt haemopurulent exudate noted. No odor noted. Full thickness Pressure Injury L Heel(L)10.3cm x (W)7.5cm. Base of wound is 60% necrotic,10% slough,30% antonio. Bone is palpable. Borders are indurated with a portion of borders rolled giving heel a shaved appearance. Moderate amt haemopurulent exudate. Mild odor noted.Periwound is purpuric and fluctuant. Full thickness Pressure Injury medial/lateral L foot(L)3.5cm x (W)3.5cm x (D)0.3cm. Base of wound is antonio. Borders and periwound are purpuric and fluctuant.Small amt sanguineous exudate noted. Unstageable Pressure Injury Distal/Lateral L foot(L)2.7cm x (W)4.3cm. Base of wound is 80% soft necrosis,20% antonio. Edges are adherent to base of wound. Periwound is purpuric and fluctuant. Full thickness Pressure Injury R heel Plantar(L)8.5cm x (W)9cm. Base of pressure with scattered necrosis and slough,otherwise base of wound is antonio. Edges are macerated with surrounding necrosis. Small amt seropurulent exudate noted.Mild odor noted. Stable dry eschar dorsal R foot1.5cm x (W)1cm. Edges are adherent to base of wo und. No erythema,induration or fluctuance periwound. Stable dry eschar distal/lateral R foot (L)0.8cm x (W)0.8cm. NO erythema,in duration or fluctuance periwound. R foot is edematous. Tx.Plan: Cleanse Sacral wound with Dakin's Kristel 0.25%. Apply Dakin's moistened kerlix to wound. Apply Triad periwound. Cover with Optifoam drsg. Change Daily and prn. Cleanse L trochanteric Wound with Dakin's Kristel 0.25%. Loosely pack with Dakin's moistened Kerlix, Apply Moisture Barrier Periwound. Cover with Optifoam drsg Daily and prn. Cleanse R Ischial wound with Dakin's Kristel 0.25%. Apply Dakin's moiste patrick gauze to wound. Apply Moisture Barrier Paste periwound. Cover with Optifoam drsg Daily and prn. Cleanse wounds Lateral R lower extremity, R Heel and Lateral R foot with Dakin's Kristel 0.25%. Place Dakin's Moistened gauze to wounds. Apply Triad Paste along edges of wound. Cover wounds with ABD Pads. Wrap with Kerlix from Base of toes. Cleanse wound R heel with Dakin's Kristel 0.25%. Apply Dakin's moistened Gauze to wound. Apply Triad Periwound. Cover with ABD PAd and wrap with Kerlix. Swab dry Eschar dorsal and Lateral aspect of R foot .Cover with Abd Pads and Wrap with Kerlix Daily and prn. Wash GT site with Soap and water. Apply Triad Paste Daily and prn(Leave Open to Air) Reposition at least every 2hours or as tolerated. Place Pillow Between Knees. Off-Load Heels with Pillow. APM/TERRIE Mattress overlay. (2) Anemia Assessment & Plan: trend h/h prbc prn (3) UTI (urinary tract infection) (4) Pleural effusion, left Assessment & Plan: Lungs: Hazy left lung attenuation could be due to consolidation, pulmonary edema; correlate with presentation. Retrocardiac atelectasis without or with consolidation. Pleural space: Small-moderate left pleural effusion with passive atelectasis. No pneumothorax. Heart: Unremarkable. No cardiomegaly. Mediastinum: Unremarkable. Bones/joints: No acute abnormality Tubes, lines and devices: Tracheostomy. Right upper extremity PICC tip in the mid SVC. IMPRESSION: 1. Tracheostomy. 2. Right upper extremity PICC tip in the mid SVC. 3. Small-moderate left pleural effusion with passive atelectasis. 4. Hazy left lung attenuation could be due to consolidation, pulmonary edema; correlate with presentation. 5. Retrocardiac atelectasis without or with consolidation. 6. Recommend CT chest with IV contrast to further characterize these findings. (5) Malfunction of gastrostomy tube Assessment & Plan: DAILY ESTIMATED NEEDS: Needs based on Wounds, pulmonary/ 74.5kg 25-30 kcals/kg 0419-9406 total kcals 1.5-2 g protein/kg 111-149 g total protein 25-30 mL/kg 2685-6125 total fluid mLs NUTRITION DIAGNOSIS: * Swallowing difficulty R/T dysphagia, h/o craniotomy, respiratory failure as evidenced by pt on T-collar, GJ tube dependent. * Increased kcal/prot/micronutrients needs R/T wound healing as evidenced by pt admitted w/ multiple advanced wounds at sacrum, BL heels, Lt leg, pending evaluation. CURRENT TF:Jevity 1.2 @ 60ml/hr x 24 hrs ENTERAL NUTRITION RECOMMENDATIONS: Jevity 1.2 @ 65ml/hr x 24 hrs + Prosource 1pkt TID to provide 1560ml, 1872kcal, 86g+ 33g prot, 1259ml free water * Increase goal rate to 65ml/hr x 24 hrs to better meet est needs * Add Prosource 1pkt TID to meet increased protein needs (33g additional protein) * HOB over 30 degrees/ water flush 150ml q 6hrs without IVF ADDITIONAL RECOMMENDATIONS: * Calibrated bedscale wt * Wound Care: add Vit C 500mg BID, ZnSO4 220mg QD x 10 days Stevie BID * Monitor BGs, need for carb controlled TF * Monitor lytes, replete as needed (6) Acute respiratory failure with hypoxia (7) HCAP (healthcare-associated pneumonia) Deny Westfall Jul 18, 2020 13:18
--- NOTE | 2020-07-18 13:20 | Nephrology Progress Note ---
Assessment/Plan Plan Low Hb -transfuse KESHIA -resolving Subjective Subjective Obtunded Objective Objective Last 24 Hour Vital Signs Date Time Temp Pulse Resp B/P (MAP) Pulse Ox O2 Delivery O2 Flow Rate FiO2 07/18/20 12:00 99.9 103 18 116/58 (77) 96 07/18/20 09:00 96 104/59 07/18/20 09:00 Trach Collar 10.0 07/18/20 08:45 100 T-Piece 8.0 35 07/18/20 08:45 96 18 95 T-Piece 8.0 35 85 20 100 07/18/20 08:00 95 07/18/20 08:00 101.7 93 20 104/59 (74) 96 07/18/20 04:00 99.8 98 20 116/55 (75) 95 07/18/20 04:00 100 07/18/20 02:05 110 18 100 T-Piece 8.0 35 105 18 98 07/18/20 02:04 99 T-Piece 8.0 35 07/18/20 00:00 99.5 96 24 115/62 (79) 96 07/18/20 00:00 98 07/17/20 21:27 110 135/65 07/17/20 21:00 Trach Collar 10.0 07/17/20 20:00 99.8 110 28 135/65 (88) 96 07/17/20 20:00 106 07/17/20 19:35 100 T-Piece 8.0 35 07/17/20 19:35 112 18 100 T-Piece 8.0 35 107 18 98 07/17/20 16:00 99 07/17/20 16:00 100.0 97 20 131/72 (91) 94 Intake and Output 07/17/20 07/18/20 19:00 07:00 Intake Total 1890 ml 60 ml Output Total 1300 ml 800 ml Balance 590 ml -740 ml IV Total 1230 ml Tube Feeding 660 ml 60 ml Output Urine Total 1300 ml 800 ml Laboratory Tests 07/18/20 00:50: Vancomycin Level Trough 17.3H 07/18/20 04:00: White Blood Count 6.3, Red Blood Count 2.24L, Hemoglobin 5.9*L, Hematocrit 19.1L , Mean Corpuscular Volume 85, Mean Corpuscular Hemoglobin 26.2L, Mean Corpuscula r Hemoglobin Concent 30.6L, Red Cell Distribution Width 20.2H, Platelet Count 269, Mean Platelet Volume 5.9L, Neutrophils (%) (Auto) , Lymphocytes (%) (Auto) , Monocytes (%) (Auto) , Eosinophils (%) (Auto) , Basophils (%) (Auto) , Differential Total Cells Counted 100, Neutrophils % (Manual) 81H, Lymphocytes % (Manual) 11L, Monocytes % (Manual) 7, Eosinophils % (Manual) 1, Basophils % (Manual) 0, Band Neutrophils 0, Platelet Estimate Adequate, Platelet Morphology Normal, Hypochromasia 1+, Anisocytosis 3+, Ovalocytes Occasional, Sodium Level 145, Potassium Level 4.0, Chloride Level 112H, Carbon Dioxide Level 29, Blood Urea Nitrogen 21H, Creatinine 1.0, Estimat Glomerular Filtration Rate > 60, Glucose Level 139H, Calcium Level 7.8L, Total Bilirubin 0.3, Aspartate Amino Transf (AST/SGOT) 16, Alanine Aminotransferase (ALT/SGPT) 16, Alkaline Phosphatase 91, Total Protein 5.6L, Albumin 0.9L, Globulin 4.7, Albumin/Globulin Ratio 0.2L Height (Feet): 5 Height (Inches): 5.00 Weight (Pounds): 150 Objective Trach clean CV RR Lungs B ronchi Abd SNT. BS + E contractures. Benjamin Quintero MD Jul 18, 2020 13:20
[2020-07-18] MEDS ORDERED: D5 1/2NS 1000ml IV ONE (15:54)
[2020-07-18] MEDS ORDERED: Tubing IV Secondary IV ONE (15:54)
[2020-07-18 16:00] VITALS: BP 129/81
--- NOTE | 2020-07-18 16:47 | Infectious Diseases Prog Note ---
Assessment/Plan Assessment/Plan antibiotics : vancomycin iv, cefepime A 1. aspiration pneumonia. COVID19 test is negative. 2. coag neg staph line sepsis 3. Hypertension. 4. Atrial fibrillation. 5. anemia 6. respiratory failure S/p tracheostomy 7. Left pleural effusion P 1. continue cefepime 5 more days 2. continue iv vancomycin 7 more days 3. consider line removal 4. will follow up cultures Subjective ROS Limited/Unobtainable: Yes Allergies: Coded Allergies: No Known Allergies (Unverified , 11/02/19) Objective Last 24 Hour Vital Signs Date Time Temp Pulse Resp B/P (MAP) Pulse Ox O2 Delivery O2 Flow Rate FiO2 07/18/20 13:49 99 T-Piece 8.0 35 07/18/20 13:49 97 18 99 T-Piece 8.0 35 89 18 95 07/18/20 12:00 98 07/18/20 12:00 99.9 103 18 116/58 (77) 96 07/18/20 09:00 96 104/59 07/18/20 09:00 Trach Collar 10.0 07/18/20 08:45 100 T-Piece 8.0 35 07/18/20 08:45 96 18 95 T-Piece 8.0 35 85 20 100 07/18/20 08:00 95 07/18/20 08:00 101.7 93 20 104/59 (74) 96 07/18/20 04:00 99.8 98 20 116/55 (75) 95 07/18/20 04:00 100 07/18/20 02:05 110 18 100 T-Piece 8.0 35 105 18 98 07/18/20 02:04 99 T-Piece 8.0 35 07/18/20 00:00 99.5 96 24 115/62 (79) 96 07/18/20 00:00 98 07/17/20 21:27 110 135/65 07/17/20 21:00 Trach Collar 10.0 07/17/20 20:00 99.8 110 28 135/65 (88) 96 07/17/20 20:00 106 07/17/20 19:35 100 T-Piece 8.0 35 07/17/20 19:35 112 18 100 T-Piece 8.0 35 107 18 98 Height (Feet): 5 Height (Inches): 5.00 Weight (Pounds): 150 HEENT: status post trach Respiratory/Chest: lungs clear Cardiovascular: normal rate, regular rhythm, no gallop/murmur Abdomen: soft, non tender, other - GT Extremities: no edema, other - right arm PICC Laboratory Tests Test 07/18/20 00:50 07/18/20 04:00 Vancomycin Level Trough 17.3 ug/mL (5.0-12.0) H White Blood Count 6.3 K/UL (4.8-10.8) Red Blood Count 2.24 M/UL (4.70-6.10) L Hemoglobin 5.9 G/DL (14.2-18.0) *L Hematocrit 19.1 % (42.0-52.0) L Mean Corpuscular Volume 85 FL (80-99) Mean Corpuscular Hemoglobin 26.2 PG (27.0-31.0) L Mean Corpuscular Hemoglobin Concent 30.6 G/DL (32.0-36.0) L Red Cell Distribution Width 20.2 % (11.6-14.8) H Platelet Count 269 K/UL (150-450) Mean Platelet Volume 5.9 FL (6.5-10.1) L Neutrophils (%) (Auto) % (45.0-75.0) Lymphocytes (%) (Auto) % (20.0-45.0) Monocytes (%) (Auto) % (1.0-10.0) Eosinophils (%) (Auto) % (0.0-3.0) Basophils (%) (Auto) % (0.0-2.0) Differential Total Cells Counted 100 Neutrophils % (Manual) 81 % (45-75) H Lymphocytes % (Manual) 11 % (20-45) L Monocytes % (Manual) 7 % (1-10) Eosinophils % (Manual) 1 % (0-3) Basophils % (Manual) 0 % (0-2) Band Neutrophils 0 % (0-8) Platelet Estimate Adequate Platelet Morphology Normal Hypochromasia 1+ Anisocytosis 3+ Ovalocytes Occasional Sodium Level 145 MMOL/L (136-145) Potassium Level 4.0 MMOL/L (3.5-5.1) Chloride Level 112 MMOL/L (98-107) H Carbon Dioxide Level 29 MMOL/L (21-32) Blood Urea Nitrogen 21 mg/dL (7-18) H Creatinine 1.0 MG/DL (0.55-1.30) Estimat Glomerular Filtration Rate > 60 mL/min (>60) Glucose Level 139 MG/DL (74-106) H Calcium Level 7.8 MG/DL (8.5-10.1) L Total Bilirubin 0.3 MG/DL (0.2-1.0) Aspartate Amino Transf (AST/SGOT) 16 U/L (15-37) Alanine Aminotransferase (ALT/SGPT) 16 U/L (12-78) Alkaline Phosphatase 91 U/L (46-116) Total Protein 5.6 G/DL (6.4-8.2) L Albumin 0.9 G/DL (3.4-5.0) L Globulin 4.7 g/dL Albumin/Globulin Ratio 0.2 (1.0-2.7) L Current Medications Medications (Trade) Dose Ordered Sig/Clive Route PRN Reason Start Time Stop Time Status Last Admin Dose Admin Acetaminophen (Tylenol) 650 mg Q4H PRN GT Temp >100.5 07/18/20 09:30 08/17/20 09:29 Acetaminophen (Tylenol) 650 mg Q4H PRN RECTAL Temp >100.5 07/14/20 13:30 08/13/20 13:29 Albuterol/ Ipratropium (Albuterol/ Ipratropium) 3 ml Q6HRT HHN 07/14/20 19:00 07/19/20 18:59 07/18/20 13:49 Amiodarone HCl (Cordarone) 200 mg Q12HR GT 07/14/20 21:00 10/12/20 20:59 07/18/20 09:13 Ascorbic Acid (Vitamin C) 250 mg TWICE A DAY GT 07/16/20 18:00 08/15/20 17:59 07/18/20 09:13 Atorvastatin Calcium (Lipitor) 80 mg QHS ORAL 07/14/20 21:00 10/12/20 20:59 07/17/20 21:25 Carvedilol (Coreg) 6.25 mg EVERY 12 HOURS ORAL 07/15/20 09:00 08/14/20 08:59 07/17/20 21:27 Cefepime HCl 1 gm/ Dextrose 55 ml @ 110 mls/hr Q12HR IVPB 07/14/20 21:00 07/21/20 20:59 07/18/20 09:14 Chlorhexidine Gluconate (Jennifer-Hex 2%) 1 applic DAILY@2000 TOPIC 07/17/20 20:00 10/15/20 19:59 07/17/20 21:25 Dextrose/Sodium Chloride 1,000 ml @ 75 mls/hr [id number] IV 07/14/20 17:30 08/13/20 17:29 07/18/20 09:36 Famotidine (Pepcid) 20 mg Q12HR GT 07/16/20 21:00 10/14/20 20:59 07/18/20 09:13 Finasteride (Proscar) 5 mg DAILY ORAL 07/15/20 09:00 10/13/20 08:59 07/18/20 09:14 Levetiracetam (Keppra) 1,000 mg Q12HR ORAL 07/14/20 21:00 08/13/20 20:59 07/18/20 09:13 Multivitamins (Multivitamins) 1 tab DAILY GT 07/17/20 09:00 08/16/20 08:59 07/18/20 09:21 Sodium Hypochlorite (Dakin's Half Strength) 1 applic DAILY TOPIC 07/16/20 13:00 08/15/20 12:59 07/18/20 09:42 Vancomycin HCl (Vanco pharmacy to dose) 1 ea DAILY PRN MISC Per rx protocol 07/16/20 11:30 08/15/20 11:29 Vancomycin HCl 750 mg/Sodium Chloride 275 ml @ 183.333 mls/hr Q12HR@0200,1400 IVPB 07/16/20 14:00 07/21/20 13:59 07/18/20 14:46 Zinc Sulfate (Zinc Sulfate) 220 mg DAILY GT 07/17/20 09:00 07/27/20 08:59 07/18/20 09:14 Kristie Reina MD Jul 18, 2020 16:47
[2020-07-18] MEDS: Acetaminophen 650mg/20.3ml GT PRN (18:16)
--- NOTE | 2020-07-18 19:42 | NUR ---
NURSE NOTES: Pt. received from SELIN Koch. PT. nonverbal at baseline, eye closed, breathing even and unlabored on trach collar 10L, no indication of respiratory distress, no indications of pain. Right upper arm PICC dressing CDI with D5 1/2 NS at 75cc running. Rectal tube noted, draining well. [place] intact and draining well. Bed low and locked, side rails x3 up, bed alarm active, and call light in reach.
--- NOTE | 2020-07-18 19:45 | NUR ---
NURSE HAND-OFF REPORT: Important Events on Shift: 2 units of PRBC's given. Eliquis held due to possible bleed per Dr. Tinsley. Telephone consent signed for Peripherally inserted central catheter in case PICC replacement needed, in front of chart. Patient Status: No acute distress Diet: Jevity 1.2@60cc/hour. Pending Orders: CBC, CMP, PT/T. Pending Results/Labs:am labs. Pending MD notification: N/A Latest Vital Signs: Temperature 99.8 , Pulse 101 , B/P 129 /81 , Respiratory Rate 20 , O2 SAT 100 , Trach Collar, O2 Flow Rate 8.0 . Vital Sign Comment: N/A EKG Rhythm: Sinus Tachycardia Rhythm change?: N MD Notified?: - MD Response: Latest Ramirez Fall Score: 50 Fall Risk: High Risk Safety Measures: Call light Within Reach, Bed Alarm Zone 1, Side Rails Side Rails x3, Bed position Low and Locked. Fall Precautions: Yellow Socks Yellow Gown Patient Fall Education Report given to Matthew Mcclendon RN.
[2020-07-18 20:00] VITALS: BP 124/61
--- NOTE | 2020-07-18 20:14 | Neurology Progress Note ---
Interim History Interim History ROS Limited/Unobtainable: Yes Interim History fevers earlier, more somnolent today Objective Physical Exam Last Vital Signs Date Time Temp Pulse Resp B/P (MAP) Pulse Ox O2 Delivery O2 Flow Rate FiO2 07/18/20 19:38 97 18 99 T-Piece 8.0 35 94 18 100 07/18/20 16:00 99.6 129/81 (97) Laboratory Tests Test 07/18/20 00:50 07/18/20 04:00 Vancomycin Level Trough 17.3 ug/mL (5.0-12.0) H White Blood Count 6.3 K/UL (4.8-10.8) Red Blood Count 2.24 M/UL (4.70-6.10) L Hemoglobin 5.9 G/DL (14.2-18.0) *L Hematocrit 19.1 % (42.0-52.0) L Mean Corpuscular Volume 85 FL (80-99) Mean Corpuscular Hemoglobin 26.2 PG (27.0-31.0) L Mean Corpuscular Hemoglobin Concent 30.6 G/DL (32.0-36.0) L Red Cell Distribution Width 20.2 % (11.6-14.8) H Platelet Count 269 K/UL (150-450) Mean Platelet Volume 5.9 FL (6.5-10.1) L Neutrophils (%) (Auto) % (45.0-75.0) Lymphocytes (%) (Auto) % (20.0-45.0) Monocytes (%) (Auto) % (1.0-10.0) Eosinophils (%) (Auto) % (0.0-3.0) Basophils (%) (Auto) % (0.0-2.0) Differential Total Cells Counted 100 Neutrophils % (Manual) 81 % (45-75) H Lymphocytes % (Manual) 11 % (20-45) L Monocytes % (Manual) 7 % (1-10) Eosinophils % (Manual) 1 % (0-3) Basophils % (Manual) 0 % (0-2) Band Neutrophils 0 % (0-8) Platelet Estimate Adequate Platelet Morphology Normal Hypochromasia 1+ Anisocytosis 3+ Ovalocytes Occasional Sodium Level 145 MMOL/L (136-145) Potassium Level 4.0 MMOL/L (3.5-5.1) Chloride Level 112 MMOL/L (98-107) H Carbon Dioxide Level 29 MMOL/L (21-32) Blood Urea Nitrogen 21 mg/dL (7-18) H Creatinine 1.0 MG/DL (0.55-1.30) Estimat Glomerular Filtration Rate > 60 mL/min (>60) Glucose Level 139 MG/DL (74-106) H Calcium Level 7.8 MG/DL (8.5-10.1) L Total Bilirubin 0.3 MG/DL (0.2-1.0) Aspartate Amino Transf (AST/SGOT) 16 U/L (15-37) Alanine Aminotransferase (ALT/SGPT) 16 U/L (12-78) Alkaline Phosphatase 91 U/L (46-116) Total Protein 5.6 G/DL (6.4-8.2) L Albumin 0.9 G/DL (3.4-5.0) L Globulin 4.7 g/dL Albumin/Globulin Ratio 0.2 (1.0-2.7) L Head: normocophalic Neck: no rigidity EENT: benign Neurologic Exam Objective lethargic, pupils reactive not following withdraws to pain Impression/Recommendations Problems: (1) Malfunction of gastrostomy tube (2) Anemia (3) Pleural effusion, left (4) Acute respiratory failure with hypoxia (5) HCAP (healthcare-associated pneumonia) (6) UTI (urinary tract infection) Status: stable, progressing Diagnostic Impression Recurrent sepsis Possible aspiration Encephalopathy, acute on chronic rule out seizures map > 65 ro covid cont atb fu cultures no need for AED now Gerson Singh MD Jul 18, 2020 20:14
[2020-07-18] MEDS: Dyna-Hex 2% Top Sol 2oz TOPIC SCH (20:48)
[2020-07-18] MEDS: Atorvastatin 80mg tab ORAL SCH (20:49)
[2020-07-19] VITALS: BP_SYST 100; BP_SYST 124; BP_DIAS 45; BP_DIAS 61
[2020-07-19] MEDS: Albuterol/Ipratropium 3ml neb HHN SCH ×3 (01:00→13:00)
--- NOTE | 2020-07-19 01:19 | NUR ---
NURSE NOTES: Pt. with episode of afib, now converted to sinus rhythm. Pt. not in distress, breathing via trach collar on 10L, satting 94%. BP 111/61. Sinus rhythm 88 bpm. Pt. with history of afib. Message left for Dr. Mak to notify and request orders. Charge nurse aware.
[2020-07-19] MEDS: Vancomycin 750 MG in NS 275 ML IVPB SCH ×2 (03:10→14:24)
[2020-07-19 04:00] VITALS: BP 108/59
[2020-07-19 05:57] LABS: BASOPHILS % (AUTO) 0.7 % (0.0-2.0); EOSINOPHILS % (AUTO) 6.9 % (0.0-3.0); HEMATOCRIT 27.3 % (42.0-52.0); HEMOGLOBIN 8.7 G/DL (14.2-18.0); LYMPHOCYTES % (AUTO) 13.1 % (20.0-45.0); MEAN CORPUSCULAR VOLUME 87 FL (80-99); MONOCYTES % (AUTO) 6.4 % (1.0-10.0); PLATELET COUNT 260 K/UL (150-450); RED BLOOD COUNT 3.12 M/UL (4.70-6.10); RED CELL DISTRIBUTION WIDTH 17.8 % (11.6-14.8)
[2020-07-19 06:01] LABS: INR 1.2 (0.9-1.1)
[2020-07-19 06:21] LABS: ALANINE AMINOTRANSFERASE 17 U/L (12-78); ALBUMIN/GLOBULIN RATIO 0.2 (1.0-2.7); ALKALINE PHOSPHATASE 111 U/L (46-116); ANION GAP 2 mmol/L (5-15); ASPARTATE AMINO TRANSFERASE 22 U/L (15-37); BILIRUBIN,TOTAL 0.4 MG/DL (0.2-1.0); BLOOD UREA NITROGEN 25 mg/dL (7-18); CALCIUM 8.4 MG/DL (8.5-10.1); CARBON DIOXIDE 30 MMOL/L (21-32); CHLORIDE 111 MMOL/L (98-107); POTASSIUM 4.4 MMOL/L (3.5-5.1); SODIUM 143 MMOL/L (136-145)
--- NOTE | 2020-07-19 07:18 | NUR ---
NURSE HAND-OFF REPORT: Important Events on Shift:[pt. 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 Vital Sign Comment: stable EKG Rhythm: Sinus Tachycardia Rhythm change?: Y Notified?: N -Dr. Aubree VALDEZ Response: Message left await call Latest Ramirez Fall Score: 50 Fall Risk: High Risk Safety Measures: Call light Within Reach, Bed Alarm Zone 1, Side Rails Side Rails x3, Bed position Low and Locked. Fall Precautions: Yellow Socks Yellow Gown Patient Fall Education Report given to SELIN Mancilla.
--- NOTE | 2020-07-19 07:20 | NUR ---
NURSE NOTES: Received patient in bed. Awake, nonverbal, aphasic. On T-piece with collar. GT flushed and running feeding as ordered. PICC in Right UA, infusing IVF as ordered. Bed low and locked, side rails up x2, call light within reach - unable to return demonstration.
[2020-07-19 08:00] VITALS: BP 154/82
[2020-07-19] MEDS: Ascorbic Acid 500mg tab GT SCH ×2 (08:23→17:37)
[2020-07-19] MEDS: Amiodarone 200mg tab GT SCH ×2 (08:23→20:52)
[2020-07-19] MEDS: Zinc Sulfate 220mg GT SCH (08:23)
[2020-07-19] MEDS: Cefepime HCl 1 GM in D5W 55 ML IVPB SCH ×2 (08:24→20:52)
[2020-07-19] MEDS: Dakin's 0.25% (Half Strength) 16oz TOPIC SCH (08:24)
[2020-07-19] MEDS: Carvedilol 6.25mg Tab ORAL SCH ×2 (08:27→20:51)
--- NOTE | 2020-07-19 08:45 | NUR ---
CASE MANAGEMENT: REVIEW 07/19/2020 SI: PNA. ANEMIA. UTI VS: T 98.4 HR 105 RR 24 B/P 108/59 SATS 93% ON 8L/TPIECE LABS: CL 111 BUN 25 GLU 134 CA 8.4 IS: D5NS @ 75 mL/HR COREG PO Q12H ELIQUIS GT BID PROSCAR PO QD CEFEPIME IV Q12H AMIODARONE GT Q12H KEPPRA PO Q12H VANCO IV Q12H LIPITOR PO QHS : TO TELEMETRY
--- NOTE | 2020-07-19 11:52 | General Progress Note ---
Subjective ROS Limited/Unobtainable: No Constitutional: Reports: malaise, weakness HEENT: Reports: no symptoms Cardiovascular: Reports: no symptoms Respiratory: Reports: cough, shortness of breath Gastrointestinal/Abdominal: Reports: difficulty swallowing Genitourinary: Reports: no symptoms Neurologic/Psychiatric: Reports: pre-existing deficit Endocrine: Reports: no symptoms Hematologic/Lymphatic: Reports: anemia Allergies: Coded Allergies: No Known Allergies (Unverified , 11/02/19) All Systems: reviewed and negative except above Subjective There have been no significant overnight events. Hemoglobin is improved after transfusion. Remains on trach collar. Poorly responsive. No reports of bleeding. Cultures reviewed. Remains on IV antibiotic therapy. Objective Last 24 Hour Vital Signs Date Time Temp Pulse Resp B/P (MAP) Pulse Ox O2 Delivery O2 Flow Rate FiO2 07/19/20 09:00 Trach Collar 10.0 07/19/20 08:27 99 141/71 07/19/20 08:00 98.7 107 26 154/82 (106) 92 07/19/20 08:00 96 07/19/20 04:00 98.4 105 24 108/59 (75) 93 07/19/20 04:00 105 07/19/20 00:24 100 T-Piece 8.0 35 07/19/20 00:00 98.1 85 22 100/45 (63) 95 07/19/20 00:00 88 07/18/20 21:00 Trach Collar 10.0 07/18/20 20:49 105 124/61 07/18/20 20:00 100.4 105 22 124/61 (82) 96 07/18/20 20:00 101 07/18/20 19:38 97 18 99 T-Piece 8.0 35 94 18 100 07/18/20 19:37 100 T-Piece 8.0 35 07/18/20 16:00 101 07/18/20 16:00 99.6 100 20 129/81 (97) 96 07/18/20 15:46 97.6 07/18/20 13:49 99 T-Piece 8.0 35 07/18/20 13:49 97 18 99 T-Piece 8.0 35 89 18 95 07/18/20 12:00 98 07/18/20 12:00 99.9 103 18 116/58 (77) 96 Intake and Output 07/18/20 07/19/20 19:00 07:00 Intake Total 2390 ml 660 ml Output Total 1000 ml 1300 ml Balance 1390 ml -640 ml IV Total 1230 ml Tube Feeding 660 ml 660 ml Blood Product 500 ml Output Urine Total 1000 ml 1300 ml # Voids 1 Laboratory Tests 07/19/20 04:00: White Blood Count 7.0, Red Blood Count 3.12L, Hemoglobin 8.7#L, Hematocrit 27.3#L, Mean Corpuscular Volume 87, Mean Corpuscular Hemoglobin 27.8, Mean Corpuscular Hemoglobin Concent 31.9L, Red Cell Distribution Width 17.8H, Platelet Count 260, Mean Platelet Volume 6.3L, Neutrophils (%) (Auto) 73.0, Lymphocytes (%) (Auto) 13.1L, Monocytes (%) (Auto) 6.4, Eosinophils (%) (Auto) 6.9H, Basophils (%) (Auto) 0.7, Prothrombin Time 13.4H, Prothromb Time International Ratio 1.2H, Activated Partial Thromboplast Time 30, Sodium Level 143, Potassium Level 4.4, Chloride Level 111H, Carbon Dioxide Level 30, Anion Gap 2L, Blood Urea Nitrogen 25H, Creatinine 1.0, Estimat Glomerular Filtration Rate > 60, Glucose Level 134H, Calcium Level 8.4L, Total Bilirubin 0.4, Aspartate Amino Transf (AST/SGOT) 22, Alanine Aminotransferase (ALT/SGPT) 17, Alkaline Phosphatase 111, Total Protein 6.0L, Albumin 1.0L, Globulin 5.0, Albumin/Globulin Ratio 0.2L Height (Feet): 5 Height (Inches): 5.00 Weight (Pounds): 150 Objective General Appearance: WD/WN, confused EENT: normal ENT inspection Neck: normal alignment Cardiovascular: normal rate, regular rhythm Respiratory/Chest: rhonchi - bilaterally Abdomen: normal bowel sounds, non tender, soft, no organomegaly Edema: no edema noted Leg (L), no edema noted Leg (R) Neurologic: disoriented, aphasia Skin: normal pigmentation Assessment/Plan Problem List: (1) Anemia ICD Codes: D64.9 - Anemia, unspecified SNOMED: 098341336, 164577637 Qualifiers: Qualified Codes: D64.9 - Anemia, unspecified (2) Pleural effusion, left ICD Codes: J90 - Pleural effusion, not elsewhere classified SNOMED: 46259790, 179340926 (3) Malfunction of gastrostomy tube ICD Codes: K94.23 - Gastrostomy malfunction SNOMED: 910211604 (4) Acute respiratory failure with hypoxia ICD Codes: J96.01 - Acute respiratory failure with hypoxia SNOMED: 62559326, 072042430 (5) HCAP (healthcare-associated pneumonia) ICD Codes: J18.9 - Pneumonia, unspecified organism SNOMED: 360598910, 793180715 Status: stable, progressing Assessment/Plan: Continue IV antibiotic therapy per ID recommendations. Follow-up cultures Continue suctioning breathing treatments Continue tube feeds Monitor H&H. Transfuse as needed DVT and stress ulcer prophylaxis Monitor on telemetry for recurrent atrial fibrillation. We will discuss with cards any additional treatment. Angel Jaramillo MD Jul 19, 2020 11:52
[2020-07-19 12:00] VITALS: BP 134/73
--- NOTE | 2020-07-19 12:11 | Nephrology Progress Note ---
Assessment/Plan Plan Low Hb -s/p transfusion. GI w/u. Leo dc'ed KESHIA -resolving Subjective Subjective Obtunded Objective Objective Last 24 Hour Vital Signs Date Time Temp Pulse Resp B/P (MAP) Pulse Ox O2 Delivery O2 Flow Rate FiO2 07/19/20 09:00 Trach Collar 10.0 07/19/20 08:27 99 141/71 07/19/20 08:00 98.7 107 26 154/82 (106) 92 07/19/20 08:00 96 07/19/20 04:00 98.4 105 24 108/59 (75) 93 07/19/20 04:00 105 07/19/20 00:24 100 T-Piece 8.0 35 07/19/20 00:00 98.1 85 22 100/45 (63) 95 07/19/20 00:00 88 07/18/20 21:00 Trach Collar 10.0 07/18/20 20:49 105 124/61 07/18/20 20:00 100.4 105 22 124/61 (82) 96 07/18/20 20:00 101 07/18/20 19:38 97 18 99 T-Piece 8.0 35 94 18 100 07/18/20 19:37 100 T-Piece 8.0 35 07/18/20 16:00 101 07/18/20 16:00 99.6 100 20 129/81 (97) 96 07/18/20 15:46 97.6 07/18/20 13:49 99 T-Piece 8.0 35 07/18/20 13:49 97 18 99 T-Piece 8.0 35 89 18 95 Intake and Output0 07/18/20 07/19/20 19:00 07:00 Intake Total 2390 ml 660 ml Output Total 1000 ml 1300 ml Balance 1390 ml -640 ml IV Total 1230 ml Tube Feeding 660 ml 660 ml Blood Product 500 ml Output Urine Total 1000 ml 1300 ml # Voids 1 Laboratory Tests 07/19/20 04:00: White Blood Count 7.0, Red Blood Count 3.12L, Hemoglobin 8.7#L, Hematocrit 27.3#L, Mean Corpuscular Volume 87, Mean Corpuscular Hemoglobin 27.8, Mean Corpuscular Hemoglobin Concent 31.9L, Red Cell Distribution Width 17.8H, Platelet Count 260, Mean Platelet Volume 6.3L, Neutrophils (%) (Auto) 73.0, Lymphocytes (%) (Auto) 13.1L, Monocytes (%) (Auto) 6.4, Eosinophils (%) (Auto) 6.9H, Basophils (%) (Auto) 0.7, Prothrombin Time 13.4H, Prothromb Time International Ratio 1.2H, Activated Partial Thromboplast Time 30, Sodium Level 143, Potassium Level 4.4, Chloride Level 111H, Carbon Dioxide Level 30, Anion Gap 2L, Blood Urea Nitrogen 25H, Creatinine 1.0, Estimat Glomerular Filtration Rate > 60, Glucose Level 134H, Calcium Level 8.4L, Total Bilirubin 0.4, Aspartate Amino Transf (AST/SGOT) 22, Alanine Aminotransferase (ALT/SGPT) 17, Alkaline Phosphatase 111, Total Protein 6.0L, Albumin 1.0L, Globulin 5.0, Albumin/Globulin Ratio 0.2L Height (Feet): 5 Height (Inches): 5.00 Weight (Pounds): 150 Objective Trach clean CV RR Lungs B ronchi Abd SNT. BS + E contractures. Benjamin Quintero MD Jul 19, 2020 12:11
[2020-07-19] MEDS: D5 1/2NS 1,000 ML IV SCH (12:14)
--- NOTE | 2020-07-19 12:57 | Infectious Diseases Prog Note ---
Assessment/Plan Assessment/Plan A: 1. Possible aspiration pneumonia. COVID19 test is negative. 2. Urinary tract infection. 3. Hypertension. 4. Atrial fibrillation. 5. anemia 6. S/p tracheostomy 7. s/p GT 8. Left pleural effusion 9. Bacteremia with Staph epidermidis 10. ? PICC line infection PLAN: 1. Continue cefepime X 4 days 2. Continue Vancomycin X 6 days 3. Consider PICC line change Subjective ROS Limited/Unobtainable: Yes Allergies: Coded Allergies: No Known Allergies (Unverified , 11/02/19) Objective Last 24 Hour Vital Signs Date Time Temp Pulse Resp B/P (MAP) Pulse Ox O2 Delivery O2 Flow Rate FiO2 07/19/20 12:00 93 07/19/20 09:00 Trach Collar 10.0 07/19/20 08:27 99 141/71 07/19/20 08:00 98.7 107 26 154/82 (106) 92 07/19/20 08:00 96 07/19/20 04:00 98.4 105 24 108/59 (75) 93 07/19/20 04:00 105 07/19/20 00:24 100 T-Piece 8.0 35 07/19/20 00:00 98.1 85 22 100/45 (63) 95 07/19/20 00:00 88 07/18/20 21:00 Trach Collar 10.0 07/18/20 20:49 105 124/61 07/18/20 20:00 100.4 105 22 124/61 (82) 96 07/18/20 20:00 101 07/18/20 19:38 97 18 99 T-Piece 8.0 35 94 18 100 07/18/20 19:37 100 T-Piece 8.0 35 07/18/20 16:00 101 07/18/20 16:00 99.6 100 20 129/81 (97) 96 07/18/20 15:46 97.6 07/18/20 13:49 99 T-Piece 8.0 35 07/18/20 13:49 97 18 99 T-Piece 8.0 35 89 18 95 Height (Feet): 5 Height (Inches): 5.00 Weight (Pounds): 150 HEENT: status post trach Respiratory/Chest: lungs clear, other - on Tbar Cardiovascular: normal rate, other - R arm PICC line Abdomen: soft, non tender, other - GT & rectal tube Extremities: no edema Neurologic/Psychiatric: aphasia Laboratory Tests Test 07/19/20 04:00 White Blood Count 7.0 K/UL (4.8-10.8) Red Blood Count 3.12 M/UL (4.70-6.10) L Hemoglobin 8.7 G/DL (14.2-18.0) #L Hematocrit 27.3 % (42.0-52.0) #L Mean Corpuscular Volume 87 FL (80-99) Mean Corpuscular Hemoglobin 27.8 PG (27.0-31.0) Mean Corpuscular Hemoglobin Concent 31.9 G/DL (32.0-36.0) L Red Cell Distribution Width 17.8 % (11.6-14.8) H Platelet Count 260 K/UL (150-450) Mean Platelet Volume 6.3 FL (6.5-10.1) L Neutrophils (%) (Auto) 73.0 % (45.0-75.0) Lymphocytes (%) (Auto) 13.1 % (20.0-45.0) L Monocytes (%) (Auto) 6.4 % (1.0-10.0) Eosinophils (%) (Auto) 6.9 % (0.0-3.0) H Basophils (%) (Auto) 0.7 % (0.0-2.0) Prothrombin Time 13.4 SEC (9.30-11.50) H Prothromb Time International Ratio 1.2 (0.9-1.1) H Activated Partial Thromboplast Time 30 SEC (23-33) Sodium Level 143 MMOL/L (136-145) Potassium Level 4.4 MMOL/L (3.5-5.1) Chloride Level 111 MMOL/L (98-107) H Carbon Dioxide Level 30 MMOL/L (21-32) Anion Gap 2 mmol/L (5-15) L Blood Urea Nitrogen 25 mg/dL (7-18) H Creatinine 1.0 MG/DL (0.55-1.30) Estimat Glomerular Filtration Rate > 60 mL/min (>60) Glucose Level 134 MG/DL (74-106) H Calcium Level 8.4 MG/DL (8.5-10.1) L Total Bilirubin 0.4 MG/DL (0.2-1.0) Aspartate Amino Transf (AST/SGOT) 22 U/L (15-37) Alanine Aminotransferase (ALT/SGPT) 17 U/L (12-78) Alkaline Phosphatase 111 U/L (46-116) Total Protein 6.0 G/DL (6.4-8.2) L Albumin 1.0 G/DL (3.4-5.0) L Globulin 5.0 g/dL Albumin/Globulin Ratio 0.2 (1.0-2.7) L Current Medications Medications (Trade) Dose Ordered Sig/Clive Route PRN Reason Start Time Stop Time Status Last Admin Dose Admin Acetaminophen (Tylenol) 650 mg Q4H PRN GT Temp >100.5 07/18/20 09:30 08/17/20 09:29 07/18/20 18:16 Acetaminophen (Tylenol) 650 mg Q4H PRN RECTAL Temp >100.5 07/14/20 13:30 08/13/20 13:29 Albuterol/ Ipratropium (Albuterol/ Ipratropium) 3 ml Q6HRT HHN 07/14/20 19:00 07/19/20 18:59 07/19/20 07:45 Amiodarone HCl (Cordarone) 200 mg Q12HR GT 07/14/20 21:00 10/12/20 20:59 07/19/20 08:23 Ascorbic Acid (Vitamin C) 250 mg TWICE A DAY GT 07/16/20 18:00 08/15/20 17:59 07/19/20 08:23 Atorvastatin Calcium (Lipitor) 80 mg QHS ORAL 07/14/20 21:00 10/12/20 20:59 07/18/20 20:49 Carvedilol (Coreg) 6.25 mg EVERY 12 HOURS ORAL 07/15/20 09:00 08/14/20 08:59 07/19/20 08:27 Cefepime HCl 1 gm/ Dextrose 55 ml @ 110 mls/hr Q12HR IVPB 07/14/20 21:00 07/21/20 20:59 07/19/20 08:24 Chlorhexidine Gluconate (Jennifer-Hex 2%) 1 applic DAILY@2000 TOPIC 07/17/20 20:00 10/15/20 19:59 07/18/20 20:48 Dextrose/Sodium Chloride 1,000 ml @ 75 mls/hr [id number] IV 07/14/20 17:30 08/13/20 17:29 07/19/20 12:14 Famotidine (Pepcid) 20 mg Q12HR GT 07/16/20 21:00 10/14/20 20:59 07/19/20 08:23 Finasteride (Proscar) 5 mg DAILY ORAL 07/15/20 09:00 10/13/20 08:59 07/19/20 08:23 Levetiracetam (Keppra) 1,000 mg Q12HR ORAL 07/14/20 21:00 08/13/20 20:59 07/19/20 08:23 Multivitamins (Multivitamins) 1 tab DAILY GT 07/17/20 09:00 08/16/20 08:59 07/19/20 08:23 Sodium Hypochlorite (Dakin's Half Strength) 1 applic DAILY TOPIC 07/16/20 13:00 08/15/20 12:59 07/19/20 08:24 Vancomycin HCl ([facility] pharmacy to dose) 1 ea DAILY PRN MISC Per rx protocol 07/16/20 11:30 08/15/20 11:29 Vancomycin HCl 750 mg/Sodium Chloride 275 ml @ 183.333 mls/hr Q12HR@0200,1400 IVPB 07/16/20 14:00 07/21/20 13:59 07/19/20 03:10 Zinc Sulfate (Zinc Sulfate) 220 mg DAILY GT 07/17/20 09:00 07/27/20 08:59 07/19/20 08:23 Steve Nelson MD Jul 19, 2020 12:57
--- NOTE | 2020-07-19 14:22 | Pulmonology Progress Note ---
Subjective ROS Limited/Unobtainable: Yes Constitutional: Denies: fever Allergies: Coded Allergies: No Known Allergies (Unverified , 11/02/19) All Systems: reviewed and negative except above Subjective CARE NOTED nonverbal on oxygen noted fevers anemic Objective Last 24 Hour Vital Signs Date Time Temp Pulse Resp B/P (MAP) Pulse Ox O2 Delivery O2 Flow Rate FiO2 07/19/20 12:00 98.9 98 24 134/73 (93) 96 07/19/20 12:00 93 07/19/20 09:00 Trach Collar 10.0 07/19/20 08:27 99 141/71 07/19/20 08:00 98.7 107 26 154/82 (106) 92 07/19/20 08:00 96 07/19/20 04:00 98.4 105 24 108/59 (75) 93 07/19/20 04:00 105 07/19/20 00:24 100 T-Piece 8.0 35 07/19/20 00:00 98.1 85 22 100/45 (63) 95 07/19/20 00:00 88 07/18/20 21:00 Trach Collar 10.0 07/18/20 20:49 105 124/61 07/18/20 20:00 100.4 105 22 124/61 (82) 96 07/18/20 20:00 101 07/18/20 19:38 97 18 99 T-Piece 8.0 35 94 18 100 07/18/20 19:37 100 T-Piece 8.0 35 07/18/20 16:00 101 07/18/20 16:00 99.6 100 20 129/81 (97) 96 07/18/20 15:46 97.6 Intake and Output 07/18/20 07/19/20 19:00 07:00 Intake Total 2390 ml 660 ml Output Total 1000 ml 1300 ml Balance 1390 ml -640 ml IV Total 1230 ml Tube Feeding 660 ml 660 ml Blood Product 500 ml Output Urine Total 1000 ml 1300 ml # Voids 1 Objective WDWN NAD chronically ill moderate breath sounds bilaterally without rhonchi or wheeze [id number] NABS nontender GT no CCE nonfocal poorly responsive Laboratory Tests 07/19/20 04:00: White Blood Count 7.0, Red Blood Count 3.12L, Hemoglobin 8.7#L, Hematocrit 27.3#L, Mean Corpuscular Volume 87, Mean Corpuscular Hemoglobin 27.8, Mean Corpuscular Hemoglobin Concent 31.9L, Red Cell Distribution Width 17.8H, Platelet Count 260, Mean Platelet Volume 6.3L, Neutrophils (%) (Auto) 73.0, Lymphocytes (%) (Auto) 13.1L, Monocytes (%) (Auto) 6.4, Eosinophils (%) (Auto) 6.9H, Basophils (%) (Auto) 0.7, Prothrombin Time 13.4H, Prothromb Time International Ratio 1.2H, Activated Partial Thromboplast Time 30, Sodium Level 143, Potassium Level 4.4, Chloride Level 111H, Carbon Dioxide Level 30, Anion Gap 2L, Blood Urea Nitrogen 25H, Creatinine 1.0, Estimat Glomerular Filtration Rate > 60, Glucose Level 134H, Calcium Level 8.4L, Total Bilirubin 0.4, Aspartate Amino Transf (AST/SGOT) 22, Alanine Aminotransferase (ALT/SGPT) 17, Alkaline Phosphatase 111, Total Protein 6.0L, Albumin 1.0L, Globulin 5.0, Albumin/Globulin Ratio 0.2L Current Medications Medications (Trade) Dose Ordered Sig/Clive Route PRN Reason Start Time Stop Time Status Last Admin Dose Admin Acetaminophen (Tylenol) 650 mg Q4H PRN GT Temp >100.5 07/18/20 09:30 08/17/20 09:29 07/18/20 18:16 Acetaminophen (Tylenol) 650 mg Q4H PRN RECTAL Temp >100.5 07/14/20 13:30 08/13/20 13:29 Albuterol/ Ipratropium (Albuterol/ Ipratropium) 3 ml Q6HRT HHN 07/14/20 19:00 07/19/20 18:59 07/19/20 07:45 Amiodarone HCl (Cordarone) 200 mg Q12HR GT 07/14/20 21:00 10/12/20 20:59 07/19/20 08:23 Ascorbic Acid (Vitamin C) 250 mg TWICE A DAY GT 07/16/20 18:00 08/15/20 17:59 07/19/20 08:23 Atorvastatin Calcium (Lipitor) 80 mg QHS ORAL 07/14/20 21:00 10/12/20 20:59 07/18/20 20:49 Carvedilol (Coreg) 6.25 mg EVERY 12 HOURS ORAL 07/15/20 09:00 08/14/20 08:59 07/19/20 08:27 Cefepime HCl 1 gm/ Dextrose 55 ml @ 110 mls/hr Q12HR IVPB 07/14/20 21:00 07/21/20 20:59 07/19/20 08:24 Chlorhexidine Gluconate (Jennifer-Hex 2%) 1 applic DAILY@1999 TOPIC 07/17/20 20:00 10/15/20 19:59 07/18/20 20:48 Dextrose/Sodium Chloride 1,000 ml @ 75 mls/hr [id number] IV 07/14/20 17:30 08/13/20 17:29 07/19/20 12:14 Famotidine (Pepcid) 20 mg Q12HR GT 07/16/20 21:00 10/14/20 20:59 07/19/20 08:23 Finasteride (Proscar) 5 mg DAILY ORAL 07/15/20 09:00 10/13/20 08:59 07/19/20 08:23 Levetiracetam (Keppra) 1,000 mg Q12HR ORAL 07/14/20 21:00 08/13/20 20:59 07/19/20 08:23 Multivitamins (Multivitamins) 1 tab DAILY GT 07/17/20 09:00 08/16/20 08:59 07/19/20 08:23 Sodium Hypochlorite (Dakin's Half Strength) 1 applic DAILY TOPIC 07/16/20 13:00 08/15/20 12:59 07/19/20 08:24 Vancomycin HCl ([facility] pharmacy to dose) 1 ea DAILY PRN MISC Per rx protocol 07/16/20 11:30 08/15/20 11:29 Vancomycin HCl 750 mg/Sodium Chloride 275 ml @ 183.333 mls/hr Q12HR@0200,1400 IVPB 07/16/20 14:00 07/21/20 13:59 07/19/20 03:10 Zinc Sulfate (Zinc Sulfate) 220 mg DAILY GT 07/17/20 09:00 07/27/20 08:59 07/19/20 08:23 Assessment/Plan Assessment/Plan Impression: Healthcare-associated pneumonia Acute respiratory failure with hypoxia Tracheostomy status Pleural effusion, left-recurrent Decubitus ulcers Urinary tract infection Anemia S/p previous Craniotomy, RCA occlusion, TILE SETTER shunt Seizure history GERD, dysphagia s/p GJ tube h/o Hypertension h/o Atrial fibrillation Previous DVT and Pulmonary Embolism, Plan IV Antibiotics monitor for change transfused ID to comment on ongoing fevers J tube feeds as tolerated O2 - needs noted HHN 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
--- NOTE | 2020-07-19 15:46 | Surgery Progress Note ---
Surgery Progress Note Subjective Additional Comments no active bleeding noted h/h better with prbc no n/v Objective Last 24 Hour Vital Signs Date Time Temp Pulse Resp B/P (MAP) Pulse Ox O2 Delivery O2 Flow Rate FiO2 07/19/20 12:00 98.9 98 24 134/73 (93) 96 07/19/20 12:00 93 07/19/20 09:00 Trach Collar 10.0 07/19/20 08:27 99 141/71 07/19/20 08:00 98.7 107 26 154/82 (106) 92 07/19/20 08:00 96 07/19/20 04:00 98.4 105 24 108/59 (75) 93 07/19/20 04:00 105 07/19/20 00:24 100 T-Piece 8.0 35 07/19/20 00:00 98.1 85 22 100/45 (63) 95 07/19/20 00:00 88 07/18/20 21:00 Trach Collar 10.0 07/18/20 20:49 105 124/61 07/18/20 20:00 100.4 105 22 124/61 (82) 96 07/18/20 20:00 101 07/18/20 19:38 97 18 99 T-Piece 8.0 35 94 18 100 07/18/20 19:37 100 T-Piece 8.0 35 07/18/20 16:00 101 07/18/20 16:00 99.6 100 20 129/81 (97) 96 07/18/20 15:46 97.6 I&O Intake and Output 07/18/20 07/19/20 19:00 07:00 Intake Total 2390 ml 660 ml Output Total 1000 ml 1300 ml Balance 1390 ml -640 ml IV Total 1230 ml Tube Feeding 660 ml 660 ml Blood Product 500 ml Output Urine Total 1000 ml 1300 ml # Voids 1 Dressing: saturated Cardiovascular: RSR Respiratory: decreased breath sounds Abdomen: soft, non-tender, present bowel sounds, non-distended Extremities: no tenderness, no cyanosis Laboratory Tests Test 07/19/20 04:00 White Blood Count 7.0 K/UL (4.8-10.8) Red Blood Count 3.12 M/UL (4.70-6.10) L Hemoglobin 8.7 G/DL (14.2-18.0) #L Hematocrit 27.3 % (42.0-52.0) #L Mean Corpuscular Volume 87 FL (80-99) Mean Corpuscular Hemoglobin 27.8 PG (27.0-31.0) Mean Corpuscular Hemoglobin Concent 31.9 G/DL (32.0-36.0) L Red Cell Distribution Width 17.8 % (11.6-14.8) H Platelet Count 260 K/UL (150-450) Mean Platelet Volume 6.3 FL (6.5-10.1) L Neutrophils (%) (Auto) 73.0 % (45.0-75.0) Lymphocytes (%) (Auto) 13.1 % (20.0-45.0) L Monocytes (%) (Auto) 6.4 % (1.0-10.0) Eosinophils (%) (Auto) 6.9 % (0.0-3.0) H Basophils (%) (Auto) 0.7 % (0.0-2.0) Prothrombin Time 13.4 SEC (9.30-11.50) H Prothromb Time International Ratio 1.2 (0.9-1.1) H Activated Partial Thromboplast Time 30 SEC (23-33) Sodium Level 143 MMOL/L (136-145) Potassium Level 4.4 MMOL/L (3.5-5.1) Chloride Level 111 MMOL/L (98-107) H Carbon Dioxide Level 30 MMOL/L (21-32) Anion Gap 2 mmol/L (5-15) L Blood Urea Nitrogen 25 mg/dL (7-18) H Creatinine 1.0 MG/DL (0.55-1.30) Estimat Glomerular Filtration Rate > 60 mL/min (>60) Glucose Level 134 MG/DL (74-106) H Calcium Level 8.4 MG/DL (8.5-10.1) L Total Bilirubin 0.4 MG/DL (0.2-1.0) Aspartate Amino Transf (AST/SGOT) 22 U/L (15-37) Alanine Aminotransferase (ALT/SGPT) 17 U/L (12-78) Alkaline Phosphatase 111 U/L (46-116) Total Protein 6.0 G/DL (6.4-8.2) L Albumin 1.0 G/DL (3.4-5.0) L Globulin 5.0 g/dL Albumin/Globulin Ratio 0.2 (1.0-2.7) L Plan Problems: (1) Decubitus skin ulcer Assessment & Plan: Pt presented on admission with PV shunt,Tracheostomy, Contractures and multiple Pressure Injuries.Skin assessed under tracheal collar. Skin is erythematous but without any open wounds. GT site is red and excoriated.Scattered senile purpuras bilat upper extremities. Full thickness Sacral Pressure Injury(L)11.8cm x (W)8cm. Base of wound is 75% mixed necrosis and slough,20% antonio. Bone is palpable at base. Edges are macerated. Mild odor noted. Small amt brown exudate noted. Periwound is indurated and maroon with additional erythema and scattered Partial thickness shearing. Full Thickness Pressure Injury L trochanteric with undermined borders.(L)5cm x (W)7cm x (D)2.6cm, undermining clockwise 11-2 by 4.2cm @11o'clock. Base of wound is 75%% mixed necrosis and slough,25% antnoio. Wound has appearance of two wounds secondary necrotic bridge.In addition, periwound at clockwise 10-2o'clock the base is necrotic and fluctuant with marginal erythema. Small amt malodorous murillo emopurulent exudate noted. Full thickness Pressure Injury L Ischium(L)3.5cm x (W)2.0cm. Base of wound is 80% slough,20% antonio. Surrounding necrotic borders that are fluctuant.Small amt sanguineous exudate. Mild odor noted. Full thickness Pressure Injury lateral L Tibia to L lateral Malleolus(L)24.5cm x (W)3.5cm. Base of wound is antonio with scattered necrosis and slough, tendon exp osure. Semi-detached borders that indurated and macerated with an area of soft necrosis at proximal borders of wound. Small amt haemopurulent exudate noted. No odor noted. Full thickness Pressure Injury L Heel(L)10.3cm x (W)7.5cm. Base of wound is 60% necrotic,10% slough,30% antonio. Bone is palpable. Borders are indurated with a portion of borders rolled giving heel a shaved appearance. Moderate amt haemopurulent exudate. Mild odor noted.Periwound is purpuric and fluctuant. Full thickness Pressure Injury medial/lateral L foot(L)3.5cm x (W)3.5cm x (D)0.3cm. Base of wound is antonio. Borders and periwound are purpuric and fluctuant.Small amt sanguineous exudate noted. Unstageable Pressure Injury Distal/Lateral L foot(L)2.7cm x (W)4.3cm. Base of wound is 80% soft necrosis,20% antonio. Edges are adherent to base of wound. Periwound is purpuric and fluctuant. Full thickness Pressure Injury R heel Plantar(L)8.5cm x (W)9cm. Base of pressure with scattered necrosis and slough,otherwise base of wound is antonio. Edges are macerated with surrounding necrosis. Small amt seropurulent exudate noted.Mild odor noted. Stable dry eschar dorsal R foot1.5cm x (W)1cm. Edges are adherent to base of wound. No erythema,induration or fluctuance periwound. Stable dry eschar distal/lateral R foot (L)0.8cm x (W)0.8cm. NO erythema,induration or fluctuance periwound. R foot is edematous. Tx.Plan: Cleanse Sacral wound with Dakin's Kristel 0.25%. Apply Dakin's moistened kerlix to wound. Apply Triad periwound. Cover with Optifoam drsg. Change Daily and prn. Cleanse L trochanteric Wound with Dakin's Kristel 0.25%. Loosely pack with Dakin's moistened Kerlix, Apply Moisture Barrier Periwound. Cover with Optifoam drsg Daily and prn. Cleanse R Ischial wound with Dakin's Kristel 0.25%. Apply Dakin's moistened gauze to wound. Apply Moisture Barrier Paste periwound. Cover with Optifoam drsg Daily and prn. Cleanse wounds Lateral R lower extremity, R Heel and Lateral R foot with Dakin's Kristel 0.25%. Place Dakin's Moistened gauze to wounds. Apply Triad Paste along edges of wound. Cover wounds with ABD Pads. Wrap with Kerlix from Base of toes. Cleanse wound R heel with Dakin's Kristel 0.25%. Apply Dakin's moistened Gauze to wound. Apply Triad Periwound. Cover with ABD PAd and wrap with Kerlix. Swab dry Eschar dorsal and Lateral aspect of R foot .Cover with Abd Pads and Wrap with Kerlix Daily and prn. Wash GT site with Soap and water. Apply Triad Paste Daily and prn(Leave Open to Air) Reposition at least every 2hours or as tolerated. Place Pillow Between Knees. Off-Load Heels with Pillow. APM/TERRIE Mattress overlay. (2) Anemia Assessment & Plan: trend h/h prbc prn (3) UTI (urinary tract infection) (4) Pleural effusion, left Assessment & Plan: Lungs: Hazy left lung attenuation could be due to consoli dation, pulmonary edema; correlate with presentation. Retrocardiac atelectasis without or with consolidation. Pleural space: Small-moderate left pleural effusion with passive atelectasis. No pneumothorax. Heart: Unremarkable. No cardiomegaly. Mediastinum: Unremarkable. Bones/joints: No acute abnormality Tubes, lines and devices: Tracheostomy. Right upper extremity PICC tip in the mid SVC. IMPRESSION: 1. Tracheostomy. 2. Right upper extremity PICC tip in the mid SVC. 3. Small-moderate left pleural effusion with passive atelectasis. 4. Hazy left lung attenuation could be due to consolidation, pulmonary edema; correlate with presentation. 5. Retrocardiac atelectasis without or with consolidation. 6. Recommend CT chest with IV contrast to further characterize these findings. (5) Malfunction of gastrostomy tube Assessment & Plan: DAILY ESTIMATED NEEDS: Needs based on Wounds, pulmonary/ 74.5kg 25-30 kcals/kg 3387-5304 total kcals 1.5-2 g protein/kg 111-149 g total protein 25-30 mL/kg 7018-0327 total fluid mLs NUTRITION DIAGNOSIS: * Swallowing difficulty R/T dysphagia, h/o craniotomy, respiratory failure as evidenced by pt on T-collar, GJ tube dependent. * Increased kcal/prot/micronutrients needs R/T wound healing as evidenced by pt admitted w/ multiple advanced wounds at sacrum, BL heels, Lt leg, pending evaluation. CURRENT TF:Jevity 1.2 @ 60ml/hr x 24 hrs ENTERAL NUTRITION RECOMMENDATIONS: Jevity 1.2 @ 65ml/hr x 24 hrs + Prosource 1pkt TID to provide 1560ml, 1872kcal, 86g+ 33g prot, 1259ml free water * Increase goal rate to 65ml/hr x 24 hrs to better meet est needs * Add Prosource 1pkt TID to meet increased protein needs (33g additional protein) * HOB over 30 degrees/ water flush 150ml q 6hrs without IVF ADDITIONAL RECOMMENDATIONS: * Calibrated bedscale wt * Wound Care: add Vit C 500mg BID, ZnSO4 220mg QD x 10 days Stevie BID * Monitor BGs, need for carb controlled TF * Monitor lytes, replete as needed (6) Acute respiratory failure with hypoxia (7) HCAP (healthcare-associated pneumonia) Deny Westfall Jul 19, 2020 15:46
[2020-07-19 16:00] VITALS: BP 132/71
--- NOTE | 2020-07-19 19:12 | NUR ---
NURSE HAND-OFF REPORT: Important Events on Shift:[wound care, suctioning] Patient Status: [FULL CODE/stable] Diet: [jevity 1.2 at 60 cc/hr] Pending Orders: [] Pending Results/Labs:[] Pending MD notification:[] Latest Vital Signs: Temperature 98.6 , Pulse 104 , B/P 132 /71 , Respiratory Rate 24 , O2 SAT 96 , Trach Collar, O2 Flow Rate 8.0 . Vital Sign Comment: [] EKG Rhythm: Sinus Rhythm Rhythm change?: N Notified?: N -Dr. Aubree VALDEZ Response: Message left await call Latest Ramirez Fall Score: 50 Fall Risk: High Risk Safety Measures: Call light Within Reach, Bed Alarm Zone 1, Side Rails Side Rails x3, Bed position Low and Locked. Fall Precautions: Yellow Socks Yellow Gown Patient Fall Education Report given to [Calletor RN].
--- NOTE | 2020-07-19 19:16 | NUR ---
NURSE NOTES: Patient received from Laurent SMALLWOOD. Patient A&Ox0 aphasic nonverbal. Right upper PICC Line patent and intact running D5 1/2NS @ 75mls/hr. No s/s of pain and distress. Patient on T-piece 10L @35% FiO2. Gtube patent and intact running Jevity 1.2 @ 60cc/hr continuous. [place] 16F draining well to gravity, patent and intact. Rectal tube in place. Bed in lowest position and locked. Bed alarm on. Seizure, fall and aspiration precautions in place.
[2020-07-19 20:00] VITALS: BP 156/82
--- NOTE | 2020-07-19 20:30 | Neurology Progress Note ---
Interim History Interim History ROS Limited/Unobtainable: Yes Interim History somnolent, open eyes, no new deficits, no seizures Objective Physical Exam Last Vital Signs Date Time Temp Pulse Resp B/P (MAP) Pulse Ox O2 Delivery O2 Flow Rate FiO2 07/19/20 19:28 96 T-Piece 8.0 35 07/19/20 19:24 100 18 101 18 07/19/20 16:00 98.6 132/71 (91) Laboratory Tests Test 07/19/20 04:00 White Blood Count 7.0 K/UL (4.8-10.8) Red Blood Count 3.12 M/UL (4.70-6.10) L Hemoglobin 8.7 G/DL (14.2-18.0) #L Hematocrit 27.3 % (42.0-52.0) #L Mean Corpuscular Volume 87 FL (80-99) Mean Corpuscular Hemoglobin 27.8 PG (27.0-31.0) Mean Corpuscular Hemoglobin Concent 31.9 G/DL (32.0-36.0) L Red Cell Distribution Width 17.8 % (11.6-14.8) H Platelet Count 260 K/UL (150-450) Mean Platelet Volume 6.3 FL (6.5-10.1) L Neutrophils (%) (Auto) 73.0 % (45.0-75.0) Lymphocytes (%) (Auto) 13.1 % (20.0-45.0) L Monocytes (%) (Auto) 6.4 % (1.0-10.0) Eosinophils (%) (Auto) 6.9 % (0.0-3.0) H Basophils (%) (Auto) 0.7 % (0.0-2.0) Prothrombin Time 13.4 SEC (9.30-11.50) H Prothromb Time International Ratio 1.2 (0.9-1.1) H Activated Partial Thromboplast Time 30 SEC (23-33) Sodium Level 143 MMOL/L (136-145) Potassium Level 4.4 MMOL/L (3.5-5.1) Chloride Level 111 MMOL/L (98-107) H Carbon Dioxide Level 30 MMOL/L (21-32) Anion Gap 2 mmol/L (5-15) L Blood Urea Nitrogen 25 mg/dL (7-18) H Creatinine 1.0 MG/DL (0.55-1.30) Estimat Glomerular Filtration Rate > 60 mL/min (>60) Glucose Level 134 MG/DL (74-106) H Calcium Level 8.4 MG/DL (8.5-10.1) L Total Bilirubin 0.4 MG/DL (0.2-1.0) Aspartate Amino Transf (AST/SGOT) 22 U/L (15-37) Alanine Aminotransferase (ALT/SGPT) 17 U/L (12-78) Alkaline Phosphatase 111 U/L (46-116) Total Protein 6.0 G/DL (6.4-8.2) L Albumin 1.0 G/DL (3.4-5.0) L Globulin 5.0 g/dL Albumin/Globulin Ratio 0.2 (1.0-2.7) L Head: normocophalic Neck: no rigidity EENT: benign Neurologic Exam Objective lethargic, pupils reactive not following withdraws to pain Impression/Recommendations Problems: (1) Malfunction of gastrostomy tube (2) Anemia (3) Pleural effusion, left (4) Acute respiratory failure with hypoxia (5) HCAP (healthcare-associated pneumonia) (6) UTI (urinary tract infection) Status: stable, progressing Diagnostic Impression Recurrent sepsis Possible aspiration Encephalopathy, acute on chronic rule out seizures map > 65 ro covid cont atb fu cultures no need for AED now Gerson Singh MD Jul 19, 2020 20:30
[2020-07-19] MEDS: Dyna-Hex 2% Top Sol 2oz TOPIC SCH (20:52)
[2020-07-19] MEDS: Atorvastatin 80mg tab ORAL SCH (20:52)
--- NOTE | 2020-07-19 20:53 | General Progress Note ---
Subjective Allergies: Coded Allergies: No Known Allergies (Unverified , 11/02/19) Objective Last 24 Hour Vital Signs Date Time Temp Pulse Resp B/P (MAP) Pulse Ox O2 Delivery O2 Flow Rate FiO2 07/19/20 19:28 96 T-Piece 8.0 35 07/19/20 19:24 100 18 100 T-Piece 8.0 35 101 18 96 07/19/20 16:00 99 07/19/20 16:00 98.6 104 24 132/71 (91) 96 07/19/20 13:00 100 T-Piece 8.0 35 07/19/20 12:00 98.9 98 24 134/73 (93) 96 07/19/20 12:00 93 07/19/20 09:00 Trach Collar 10.0 07/19/20 08:27 99 141/71 07/19/20 08:00 98.7 107 26 154/82 (106) 92 07/19/20 08:00 96 07/19/20 07:55 100 T-Piece 8.0 35 07/19/20 07:55 92 18 100 T-Piece 8.0 35 90 18 99 07/19/20 04:00 98.4 105 24 108/59 (75) 93 07/19/20 04:00 105 07/19/20 00:24 100 T-Piece 8.0 35 07/19/20 00:00 98.1 85 22 100/45 (63) 95 07/19/20 00:00 88 07/18/20 21:00 Trach Collar 10.0 07/18/20 20:49 105 124/61 Intake and Output 07/18/20 07/19/20 19:00 07:00 Intake Total 2390 ml 895 ml Output Total 1000 ml 1300 ml Balance 1390 ml -405 ml Intake Free Water 100 ml IV Total 1230 ml 75 ml Tube Feeding 660 ml 720 ml Blood Product 500 ml Output Urine Total 1000 ml 1300 ml # Voids 1 Laboratory Tests 07/19/20 04:00: White Blood Count 7.0, Red Blood Count 3.12L, Hemoglobin 8.7#L, Hematocrit 27.3#L, Mean Corpuscular Volume 87, Mean Corpuscular Hemoglobin 27.8, Mean Corpuscular Hemoglobin Concent 31.9L, Red Cell Distribution Width 17.8H, Platelet Count 260, Mean Platelet Volume 6.3L, Neutrophils (%) (Auto) 73.0, Lymphocytes (%) (Auto) 13.1L, Monocytes (%) (Auto) 6.4, Eosinophils (%) (Auto) 6.9H, Basophils (%) (Auto) 0.7, Prothrombin Time 13.4H, Prothromb Time International Ratio 1.2H, Activated Partial Thromboplast Time 30, Sodium Level 143, Potassium Level 4.4, Chloride Level 111H, Carbon Dioxide Level 30, Anion Gap 2L, Blood Urea Nitrogen 25H, Creatinine 1.0, Estimat Glomerular Filtration Rate > 60, Glucose Level 134H, Calcium Level 8.4L, Total Bilirubin 0.4, Aspartate Amino Transf (AST/SGOT) 22, Alanine Aminotransferase (ALT/SGPT) 17, Alkaline Phosphatase 111, Total Protein 6.0L, Albumin 1.0L, Globulin 5.0, Albumin/Globulin Ratio 0.2L Height (Feet): 5 Height (Inches): 5.00 Weight (Pounds): 150 Assessment/Plan Status: stable, progressing Assessment/Plan: GI CONSULT ATSP for UGIB Assessment - UGIB - resolved off of Eliquis - Anemia - h/o PUD - resp failure, s/p trach - dysphagia, s/p PEG - atrial fibrillation - h/o DVT Recommendations - hold anticoagulation - Continue TF - H2B BID - EGD Tuesday - d/w family Thank you Akiko Swartz MD Jul 19, 2020 20:53
--- NOTE | 2020-07-19 22:00 | NUR ---
NURSE NOTES: Patient is hard to suction, can't get suction all the way through. called RT to suction, Rt did lavage and suctioned patient still nothing much coming out. patient saturating at 98% but still congested, spoke to charge nurse. held fluids and feeding for now will resume in an hour. Will notify MD in AM.
[2020-07-20] VITALS: BP 119/75
--- NOTE | 2020-07-20 02:14 | Consultation ---
DATE OF CONSULTATION: 07/19/2020 GASTROLOGY CONSULTATION CHIEF COMPLAINT: I was asked to see this patient by Dr. Nikita Devlin for evaluation of gastrointestinal bleeding. HISTORY OF PRESENT ILLNESS: The patient is a 69-year-old unfortunate man with multiple medical problems including respiratory failure requiring tracheostomy, who is admitted to the hospital due to respiratory distress. The patient was COVID negative on admission. He is unable to provide any history and most of the information is only available from the chart. The patient has had a tracheostomy and a craniotomy, ventriculoperitoneal shunt and host of other medical problems, which are outlined below. He is on long-term anticoagulation with Eliquis due to his history of deep vein thrombosis and pulmonary embolism as well as atrial fibrillation. However, yesterday, he was noted to have melena and drop in hematocrit requiring a blood transfusion and therefore the Eliquis was held. Since then, his stools have become light brown. The patient's family states that he has had a history of peptic ulcer disease about a year ago. He had endoscopy and colonoscopy about a year ago at that time, which was notable for the ulceration. PAST MEDICAL HISTORY: Respiratory failure status post tracheostomy, status post craniotomy, right cerebral artery occlusion, ventriculoperitoneal shunt, seizure history, gastroesophageal reflux disease, status post gastrostomy tube and jejunostomy tube placement, history of hypertension, atrial fibrillation, previous anemia, previous deep vein thrombosis and pulmonary embolism, recurrent left pleural effusions, and status post gastrostomy tube placement. FAMILY HISTORY: Noncontributory. SOCIAL HISTORY: The patient has a and a niece who look after his affairs. The niece has [id number]. REVIEW OF SYSTEMS: Otherwise unobtainable. PHYSICAL EXAMINATION: GENERAL: Debilitated man seen in his room. HEENT: The patient's eyes were open, but he does not follow commands. NECK: Showed a tracheostomy with the G-tube. CHEST: Reveals scattered rhonchi. CARDIOVASCULAR: Revealed a regular rate. ABDOMEN: Soft with gastrostomy tube. EXTREMITIES: Revealed no edema. LABORATORY DATA: Noted. ASSESSMENT: This patient presents with gastrointestinal bleeding which appears to be upper as the stools were black and the bleeding has stopped since anticoagulation did help. The patient should undergo endoscopy in the next day or 2 to determine the source of bleeding and to determine the safety of resuming anticoagulation. Given the patient's history of ulcer disease and his overall poor health and long-term suppression regimen with either proton pump inhibitor or H2 ezekiel will be advisable. RECOMMENDATIONS: 1. Continue tube feeding. 2. IV fluids. 3. Acid blockade. 4. Hold anticoagulation. 5. Endoscopy. Thank you for asking me to participate in the care of this patient. Akiko Rai M.D. DR: CORRY JOB#: [id number] CC:
[2020-07-20] MEDS: D5 1/2NS 1,000 ML IV SCH ×2 (03:34→14:36)
[2020-07-20] MEDS: Vancomycin 750 MG in NS 275 ML IVPB SCH ×2 (03:34→14:19)
[2020-07-20 04:00] VITALS: BP 124/75
[2020-07-20 08:00] VITALS: BP 139/69
--- NOTE | 2020-07-20 08:14 | NUR ---
NURSE HAND-OFF REPORT: Important Events on Shift:[Unable to pass the whole suction catheter ithrough] Patient Status: [FC, A&o x0 aphasic] Diet: [Jevity 1.2 ] Pending Orders: [] Pending Results/Labs:[] Pending MD notification:[] Latest Vital Signs: Temperature 97.4 , Pulse 87 , B/P 124 /75 , Respiratory Rate 20 , O2 SAT 100 , Trach Collar, O2 Flow Rate 10.0 . Vital Sign Comment: [] EKG Rhythm: Sinus Rhythm Rhythm change?: N Notified?: N -Dr. Aubree VALDEZ Response: Message left await call Latest Ramirez Fall Score: 50 Fall Risk: High Risk Safety Measures: Call light Within Reach, Bed Alarm Zone 1, Side Rails Side Rails x3, Bed position Low and Locked. Fall Precautions: Yellow Socks Yellow Gown Patient Fall Education Report given to [Hali RN].
--- NOTE | 2020-07-20 08:15 | NUR ---
NURSE NOTES: Received patient in bed asleep, responds with grunting when being arounsed by shaking. With trache to O2 at 10L, no acute distress. PICC line intact and patent, no s/sx of infection. FC intact, draining yellow colored urine. Wound dressings intact. Gtube intact, feeding ongoing, no s/sx of aspiration. HOB elevated. Bed locked in low position. Call light within reach. Will continue plan of care.
[2020-07-20] MEDS: Dakin's 0.25% (Half Strength) 16oz TOPIC SCH (09:00)
--- NOTE | 2020-07-20 09:22 | Pulmonology Progress Note ---
Subjective ROS Limited/Unobtainable: Yes Constitutional: Denies: fever Allergies: Coded Allergies: No Known Allergies (Unverified , 11/02/19) All Systems: reviewed and negative except above Subjective CARE NOTED nonverbal on oxygen issues with suctioning anemic Objective Last 24 Hour Vital Signs Date Time Temp Pulse Resp B/P (MAP) Pulse Ox O2 Delivery O2 Flow Rate FiO2 07/20/20 04:00 97.4 80 20 124/75 (91) 100 07/20/20 04:00 87 07/20/20 00:00 97 07/20/20 00:00 98.0 86 20 119/75 (90) 100 07/19/20 21:00 Trach Collar 10.0 07/19/20 20:51 106 156/82 07/19/20 20:00 98.3 106 22 156/82 (106) 100 07/19/20 20:00 102 07/19/20 19:28 96 T-Piece 8.0 35 07/19/20 19:24 100 18 100 T-Piece 8.0 35 101 18 96 07/19/20 16:00 99 07/19/20 16:00 98.6 104 24 132/71 (91) 96 07/19/20 13:00 100 T-Piece 8.0 35 07/19/20 12:00 98.9 98 24 134/73 (93) 96 07/19/20 12:00 93 Intake and Output 07/19/20 07/20/20 19:00 07:00 Intake Total 1635 ml Output Total 1000 ml 1000 ml Balance 635 ml -1000 ml Intake Free Water 300 ml IV Total 675 ml Tube Feeding 660 ml Output Urine Total 700 ml 1000 ml Stool Total 300 ml # Voids 1 Objective WDWN NAD chronically ill moderate breath sounds bilaterally without rhonchi or wheeze [id number] NABS nontender GT no CCE nonfocal poorly responsive Laboratory Tests 07/20/20 08:27: Arterial Blood pH 7.459H, Arterial Blood Partial Pressure CO2 35.5, Arterial Blood Partial Pressure O2 , Arterial Blood HCO3 24.6, Arterial Blood Oxygen Saturation 91.9L, Arterial Blood Base Excess 1.0, Conner Test Positive Current Medications Medications (Trade) Dose Ordered Sig/Clive Route PRN Reason Start Time Stop Time Status Last Admin Dose Admin Acetaminophen (Tylenol) 650 mg Q4H PRN GT Temp >100.5 07/18/20 09:30 08/17/20 09:29 07/18/20 18:16 Acetaminophen (Tylenol) 650 mg Q4H PRN RECTAL Temp >100.5 07/14/20 13:30 08/13/20 13:29 Amiodarone HCl (Cordarone) 200 mg Q12HR GT 07/14/20 21:00 10/12/20 20:59 07/19/20 20:52 Ascorbic Acid (Vitamin C) 250 mg TWICE A DAY GT 07/16/20 18:00 08/15/20 17:59 07/19/20 17:37 Atorvastatin Calcium (Lipitor) 80 mg QHS ORAL 07/14/20 21:00 10/12/20 20:59 07/19/20 20:52 Carvedilol (Coreg) 6.25 mg EVERY 12 HOURS ORAL 07/15/20 09:00 08/14/20 08:59 07/19/20 20:51 Cefepime HCl 1 gm/ Dextrose 55 ml @ 110 mls/hr Q12HR IVPB 07/14/20 21:00 07/21/20 20:59 07/19/20 20:52 Chlorhexidine Gluconate (Jennifer-Hex 2%) 1 applic DAILY@2000 TOPIC 07/17/20 20:00 10/15/20 19:59 07/19/20 20:52 Dextrose/Sodium Chloride 1,000 ml @ 75 mls/hr [id number] IV 07/14/20 17:30 08/13/20 17:29 07/20/20 03:34 Famotidine (Pepcid) 20 mg Q12HR GT 07/16/20 21:00 10/14/20 20:59 07/19/20 20:51 Finasteride (Proscar) 5 mg DAILY ORAL 07/15/20 09:00 10/13/20 08:59 07/19/20 08:23 Levetiracetam (Keppra) 1,000 mg Q12HR ORAL 07/14/20 21:00 08/13/20 20:59 07/19/20 20:51 Multivitamins (Multivitamins) 1 tab DAILY GT 07/17/20 09:00 08/16/20 08:59 07/19/20 08:23 Sodium Hypochlorite (Dakin's Half Strength) 1 applic DAILY TOPIC 07/16/20 13:00 08/15/20 12:59 07/19/20 08:24 Vancomycin HCl (Vanco pharmacy to dose) 1 ea DAILY PRN MISC Per rx protocol 07/16/20 11:30 08/15/20 11:29 Vancomycin HCl 750 mg/Sodium Chloride 275 ml @ 183.333 mls/hr Q12HR@0200,1400 IVPB 07/16/20 14:00 07/21/20 13:59 07/20/20 03:34 Zinc Sulfate (Zinc Sulfate) 220 mg DAILY GT 07/17/20 09:00 07/27/20 08:59 07/19/20 08:23 Assessment/Plan Assessment/Plan Impression: Healthcare-associated pneumonia Acute respiratory failure with hypoxia Tracheostomy status Pleural effusion, left-recurrent Decubitus ulcers Urinary tract infection Anemia S/p previous Craniotomy, RCA occlusion, [employer]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
--- NOTE | 2020-07-20 10:08 | Diagnostic Imaging Report ---
EXAM: XR Chest, 1 View CLINICAL HISTORY: SOB TECHNIQUE: Frontal view of the chest. COMPARISON: Chest radiograph July 13, 2020. FINDINGS/IMPRESSION: Stable tracheostomy tube and right upper extremity PICC line. Complete opacification of the left hemithorax, consistent with large pleural effusion. This has increased from July 13, 2020. The right lung is clear. No pneumothorax. Cardiomegaly.
[2020-07-20] MEDS: Zinc Sulfate 220mg GT SCH (10:28)
[2020-07-20] MEDS: Ascorbic Acid 500mg tab GT SCH ×2 (10:28→18:31)
[2020-07-20] MEDS: Amiodarone 200mg tab GT SCH ×2 (10:28→20:58)
[2020-07-20] MEDS: Carvedilol 6.25mg Tab ORAL SCH ×2 (10:29→20:57)
[2020-07-20] MEDS: Cefepime HCl 1 GM in D5W 55 ML IVPB SCH ×2 (10:33→20:58)
--- NOTE | 2020-07-20 10:50 | General Progress Note ---
Subjective ROS Limited/Unobtainable: No Constitutional: Reports: malaise, weakness HEENT: Reports: no symptoms Cardiovascular: Reports: no symptoms Respiratory: Reports: cough, shortness of breath, sputum Gastrointestinal/Abdominal: Reports: difficulty swallowing Genitourinary: Reports: no symptoms Neurologic/Psychiatric: Reports: pre-existing deficit Endocrine: Reports: no symptoms Hematologic/Lymphatic: Reports: anemia Allergies: Coded Allergies: No Known Allergies (Unverified , 11/02/19) All Systems: reviewed and negative except above Subjective No significant overnight events. Remains on trach collar. Poorly responsive. No reports of bleeding. Cultures reviewed. On IV antibiotic therapy. Objective Last 24 Hour Vital Signs Date Time Temp Pulse Resp B/P (MAP) Pulse Ox O2 Delivery O2 Flow Rate FiO2 07/20/20 10:29 112 139/69 07/20/20 08:00 97.5 112 24 139/69 (92) 99 07/20/20 04:00 97.4 80 20 124/75 (91) 100 07/20/20 04:00 87 07/20/20 00:00 97 07/20/20 00:00 98.0 86 20 119/75 (90) 100 07/19/20 21:00 Trach Collar 10.0 07/19/20 20:51 106 156/82 07/19/20 20:00 98.3 106 22 156/82 (106) 100 07/19/20 20:00 102 07/19/20 19:28 96 T-Piece 8.0 35 07/19/20 19:24 100 18 100 T-Piece 8.0 35 101 18 96 07/19/20 16:00 99 07/19/20 16:00 98.6 104 24 132/71 (91) 96 07/19/20 13:00 100 T-Piece 8.0 35 07/19/20 12:00 98.9 98 24 134/73 (93) 96 07/19/20 12:00 93 Intake and Output 07/19/20 07/20/20 19:00 07:00 Intake Total 1635 ml Output Total 1000 ml 1000 ml Balance 635 ml -1000 ml Intake Free Water 300 ml IV Total 675 ml Tube Feeding 660 ml Output Urine Total 700 ml 1000 ml Stool Total 300 ml # Voids 1 Laboratory Tests 07/20/20 08:27: Arterial Blood pH 7.459H, Arterial Blood Partial Pressure CO2 35.5, Arterial Blood Partial Pressure O2 , Arterial Blood HCO3 24.6, Arterial Blood Oxygen Saturation 91.9L, Arterial Blood Base Excess 1.0, Conner Test Positive Height (Feet): 5 Height (Inches): 5.00 Weight (Pounds): 150 Objective General Appearance: WD/WN, confused EENT: normal ENT inspection Neck: normal alignment Cardiovascular: normal rate, regular rhythm Respiratory/Chest: rhonchi - bilaterally Abdomen: normal bowel sounds, non tender, soft, no organomegaly Edema: no edema noted Leg (L), no edema noted Leg (R) Neurologic: disoriented, aphasia Skin: normal pigmentation Assessment/Plan Problem List: (1) Anemia ICD Codes: D64.9 - Anemia, unspecified SNOMED: 229752473, 209015118 Qualifiers: Qualified Codes: D64.9 - Anemia, unspecified (2) Pleural effusion, left ICD Codes: J90 - Pleural effusion, not elsewhere classified SNOMED: 62549227, 436912227 (3) Malfunction of gastrostomy tube ICD Codes: K94.23 - Gastrostomy malfunction SNOMED: 403669243 (4) Acute respiratory failure with hypoxia ICD Codes: J96.01 - Acute respiratory failure with hypoxia SNOMED: 81253826, 200591109 (5) HCAP (healthcare-associated pneumonia) ICD Codes: J18.9 - Pneumonia, unspecified organism SNOMED: 325569494, 397455217 Status: stable, progressing Assessment/Plan: Continue IV antibiotic therapy per ID recommendations. Follow-up cultures Continue suctioning breathing treatments Continue tube feeds Monitor H&H. Transfuse as needed DVT and stress ulcer prophylaxis Monitor on telemetry for recurrent atrial fibrillation. We will discuss with cards any additional treatment. Angel Jaramillo MD Jul 20, 2020 10:50
[2020-07-20 12:00] VITALS: BP 108/62
[2020-07-20 13:04] LABS: BASOPHILS % (AUTO) 0.6 % (0.0-2.0); HEMATOCRIT 28.3 % (42.0-52.0); HEMOGLOBIN 8.9 G/DL (14.2-18.0); LYMPHOCYTES % (AUTO) 12.4 % (20.0-45.0); MEAN CORPUSCULAR VOLUME 87 FL (80-99); MONOCYTES % (AUTO) 8.1 % (1.0-10.0); PLATELET COUNT 251 K/UL (150-450); RED BLOOD COUNT 3.25 M/UL (4.70-6.10); RED CELL DISTRIBUTION WIDTH 18.5 % (11.6-14.8); WHITE BLOOD COUNT 6.6 K/UL (4.8-10.8)
--- NOTE | 2020-07-20 13:21 | Surgery Progress Note ---
Surgery Progress Note Subjective Additional Comments afebrile, HD stable, labs stable comfortable no complaints Objective Last 24 Hour Vital Signs Date Time Temp Pulse Resp B/P (MAP) Pulse Ox O2 Delivery O2 Flow Rate FiO2 07/20/20 10:29 112 139/69 07/20/20 08:00 97.5 112 24 139/69 (92) 99 07/20/20 04:00 97.4 80 20 124/75 (91) 100 07/20/20 04:00 87 07/20/20 00:00 97 07/20/20 00:00 98.0 86 20 119/75 (90) 100 07/19/20 21:00 Trach Collar 10.0 07/19/20 20:51 106 156/82 07/19/20 20:00 98.3 106 22 156/82 (106) 100 07/19/20 20:00 102 07/19/20 19:28 96 T-Piece 8.0 35 07/19/20 19:24 100 18 100 T-Piece 8.0 35 101 18 96 07/19/20 16:00 99 07/19/20 16:00 98.6 104 24 132/71 (91) 96 I&O Intake and Output 07/19/20 07/20/20 18:59 06:59 Intake Total 1870 ml Output Total 1000 ml 1000 ml Balance 870 ml -1000 ml Intake Free Water 400 ml IV Total 750 ml Tube Feeding 720 ml Output Urine Total 700 ml 1000 ml Stool Total 300 ml # Voids 1 Dressing: saturated Cardiovascular: RSR Respiratory: decreased breath sounds Abdomen: non-tender, present bowel sounds, non-distended Extremities: no tenderness, no cyanosis Laboratory Tests Test 07/20/20 08:27 07/20/20 12:25 Arterial Blood pH 7.459 (7.350-7.450) Arterial Blood Partial Pressure CO2 35.5 mmHg (35.0-45.0) Arterial Blood Partial Pressure O2 mmHg (75.0-100.0) Arterial Blood HCO3 24.6 mmol/L (22.0-26.0) Arterial Blood Oxygen Saturation 91.9 % (95-100) L Arterial Blood Base Excess 1.0 (-2-2) Conner Test Positive White Blood Count 6.6 K/UL (4.8-10.8) Red Blood Count 3.25 M/UL (4.70-6.10) L Hemoglobin 8.9 G/DL (14.2-18.0) L Hematocrit 28.3 % (42.0-52.0) L Mean Corpuscular Volume 87 FL (80-99) Mean Corpuscular Hemoglobin 27.5 PG (27.0-31.0) Mean Corpuscular Hemoglobin Concent 31.6 G/DL (32.0-36.0) L Red Cell Distribution Width 18.5 % (11.6-14.8) H Platelet Count 251 K/UL (150-450) Mean Platelet Volume 6.1 FL (6.5-10.1) L Neutrophils (%) (Auto) 75.0 % (45.0-75.0) Lymphocytes (%) (Auto) 12.4 % (20.0-45.0) L Monocytes (%) (Auto) 8.1 % (1.0-10.0) Eosinophils (%) (Auto) 4.0 % (0.0-3.0) H Basophils (%) (Auto) 0.6 % (0.0-2.0) Sodium Level Pending Potassium Level Pending Chloride Level Pending Carbon Dioxide Level Pending Blood Urea Nitrogen Pending Creatinine Pending Estimat Glomerular Filtration Rate Pending Glucose Level Pending Calcium Level Pending Plan Problems: (1) Decubitus skin ulcer Assessment & Plan: Pt presented on admission with PV shunt,Tracheostomy, Contractures and multiple Pressure Injuries.Skin assessed under tracheal collar. Skin is erythematous but without any open wounds. GT site is red and excoriated.Scattered senile purpuras bilat upper extremities. Full thickness Sacral Pressure Injury(L)11.8cm x (W)8cm. Base of wound is 75% mixed necrosis and slough,20% antonio. Bone is palpable at base. Edges are macerated. Mild odor noted. Small amt brown exudate noted. Periwound is indurated and maroon with additional erythema and scattered Partial thickness shearing. Full Thickness Pressure Injury L trochanteric with undermined borders.(L)5cm x (W)7cm x (D)2.6cm, undermining clockwise 11-2 by 4.2cm @11o'clock. Base of wound is 75%% mixed necrosis and slough,25% antonio. Wound has appearance of two wounds secondary necrotic bridge.In addition, periwound at clockwise 10-2o'clock the base is necrotic and fluctuant with marginal erythema. Small amt malodorous haemopurulent exudate noted. Full thickness Pressure Injury L Ischium(L)3.5cm x (W)2.0cm. Base of wound is 80% slough,20% antonio. Surrounding necrotic borders that are fluctuant.Small amt sanguineous exudate. Mild odor noted. Full thickness Pressure Injury lateral L Tibia to L lateral Malleolus(L)24.5cm x (W)3.5cm. Base of wound is antonio with scattered necrosis and slough, tendon exposure. Semi-detached borders that indurated and macerated with an area of soft necrosis at proximal borders of wound. Small amt haemopurulent exudate noted. No odor noted. Full thickness Pressure Injury L Heel(L)10.3cm x (W)7.5cm. Base of wound is 60% necrotic,10% slough,30% antonio. Bone is palpable. Borders are indurated with a portion of borders rolled giving heel a shaved appearance. Moderate amt haemopu rulent exudate. Mild odor noted.Periwound is purpuric and fluctuant. Full thickness Pressure Injury medial/lateral L foot(L)3.5cm x (W)3.5cm x (D)0.3cm. Base of wound is antonio. Borders and periwound are purpuric and fluctuant.Small amt sanguineous exudate noted. Unstageable Pressure Injury Distal/Lateral L foot(L)2.7cm x (W)4.3cm. Base of wound is 80% soft necrosis,20% antonio. Edges are adherent to base of wound. Periwound is purpuric and fluctuant. Full thickness Pressure Injury R heel Plantar(L)8.5cm x (W)9cm. Base of pressure with scattered necrosis and slough,otherwise base of wound is antonio. Edges are macerated with surrounding necrosis. Small amt seropurulent exudate noted.Mild odor noted. Stable dry eschar dorsal R foot1.5cm x (W)1cm. Edges are adherent to base of wound. No erythema,induration or fluctuance periwound. Stable dry eschar distal/lateral R foot (L)0.8cm x (W)0.8cm. NO erythema,induration or fluctuance periwound. R foot is edematous. Tx.Plan: Cleanse Sacral wound with Dakin's Kristel 0.25%. Apply Dakin's moistened kerlix to wound. Apply Triad periwound. Cover with Optifoam drsg. Change Daily and prn. Cleanse L trochanteric Wound with Dakin's Kristel 0.25%. Loosely pack with Dakin's moistened Kerlix, Apply Moisture Barrier Periwound. Cover with Optifoam drsg Daily and prn. Cleanse R Ischial wound with Dakin's Kristel 0.25%. Apply Dakin's moistened gauze to wound. Apply Moisture Barrier Paste periwound. Cover with Optifoam drsg Daily and prn. Cleanse wounds Lateral R lower extremity, R Heel and Lateral R foot with Dakin's Kristel 0.25%. Place Dakin's Moistened gauze to wounds. Apply Triad Paste along edges of wound. Cover wounds with ABD Pads. Wrap with Kerlix from Base of toes. Cleanse wound R heel with Dakin's Kristel 0.25%. Apply Dakin's moistened Gauze to wound. Apply Triad Periwound. Cover with ABD PAd and wrap with Kerlix. Swab dry Eschar dorsal and Lateral aspect of R foot .Cover with Abd Pads and Wrap with Kerlix Daily and prn. Wash GT site with Soap and water. Apply Triad Paste Daily and prn(Leave Open to Air) Reposition at least every 2hours or as tolerated. Place Pillow Between Knees. Off-Load Heels with Pillow. APM/TERRIE Mattress overlay. (2) Anemia Assessment & Plan: trend h/h prbc prn (3) UTI (urinary tract infection) (4) Pleural effusion, left Assessment & Plan: Lungs: Hazy left lung attenuation could be due to consolidation, pulmonary edema; correlate with presentation. Retrocardiac atelectasis without or with consolidation. Pleural space: Small-moderate left pleural effusion with passive atelectasis. No pneumothorax. Heart: Unremarkable. No cardiomegaly. Mediastinum: Unremarkable. Bones/joints: No acute abnormality Tubes, lines and devices: Tracheostomy. Right upper extremity PICC tip in the mid SVC. IMPRESSION: 1. Tracheostomy. 2. Right upper extremity PICC tip in the mid SVC. 3. Small-moderate left pleural effusion with passive atelectasis. 4. Hazy left lung attenuation could be due to consolidation, pulmonary edema; correlate with presentation. 5. Retrocardiac atelectasis without or with consolidation. 6. Recommend CT chest with IV contrast to further characterize these findings. (5) Malfunction of gastrostomy tube Assessment & Plan: DAILY ESTIMATED NEEDS: Needs based on Wounds, pulmonary/ 74.5kg 25-30 kcals/kg 4584-3784 total kcals 1.5-2 g protein/kg 111-149 g total protein 25-30 mL/kg 5740-5526 total fluid mLs NUTRITION DIAGNOSIS: * Swallowing difficulty R/T dysphagia, h/o craniotomy, respiratory failure as evidenced by pt on T-collar, GJ tube dependent. * Increased kcal/prot/micronutrients needs R/T wound healing as evidenced by pt admitted w/ multiple advanced wounds at sacrum, BL heels, Lt leg, pending evaluation. CURRENT TF:Jevity 1.2 @ 60ml/hr x 24 hrs ENTERAL NUTRITION RECOMMENDATIONS: Jevity 1.2 @ 65ml/hr x 24 hrs + Prosource 1pkt TID to provide 1560ml, 1872kcal, 86g+ 33g prot, 1259ml free water * Increase goal rate to 65ml/hr x 24 hrs to better meet est needs * Add Prosource 1pkt TID to meet increased protein needs (33g additional protein) * HOB over 30 degrees/ water flush 150ml q 6hrs without IVF ADDITIONAL RECOMMENDATIONS: * Calibrated bedscale wt * Wound Care: add Vit C 500mg BID, ZnSO4 220mg QD x 10 days Stevie BID * Monitor BGs, need for carb controlled TF * Monitor lytes, replete as needed (6) Acute respiratory failure with hypoxia (7) HCAP (healthcare-associated pneumonia) Deny Westfall Jul 20, 2020 13:21
[2020-07-20 13:23] LABS: ANION GAP 6 mmol/L (5-15); BLOOD UREA NITROGEN 26 mg/dL (7-18); CALCIUM 8.5 MG/DL (8.5-10.1); CARBON DIOXIDE 28 MMOL/L (21-32); CHLORIDE 108 MMOL/L (98-107); CREATININE 1.1 MG/DL (0.55-1.30); POTASSIUM 4.7 MMOL/L (3.5-5.1); SODIUM 142 MMOL/L (136-145)
--- NOTE | 2020-07-20 15:07 | General Progress Note ---
Subjective Allergies: Coded Allergies: No Known Allergies (Unverified , 11/02/19) Subjective Above noted no further bleeding overnight off of anticoagulation tolerating PO Objective Last 24 Hour Vital Signs Date Time Temp Pulse Resp B/P (MAP) Pulse Ox O2 Delivery O2 Flow Rate FiO2 07/20/20 12:00 92 07/20/20 10:29 112 139/69 07/20/20 08:00 97.5 112 24 139/69 (92) 99 07/20/20 08:00 103 07/20/20 04:00 97.4 80 20 124/75 (91) 100 07/20/20 04:00 87 07/20/20 00:00 97 07/20/20 00:00 98.0 86 20 119/75 (90) 100 07/19/20 21:00 Trach Collar 10.0 07/19/20 20:51 106 156/82 07/19/20 20:00 98.3 106 22 156/82 (106) 100 07/19/20 20:00 102 07/19/20 19:28 96 T-Piece 8.0 35 07/19/20 19:24 100 18 100 T-Piece 8.0 35 101 18 96 07/19/20 16:00 99 07/19/20 16:00 98.6 104 24 132/71 (91) 96 Intake and Output 07/19/20 07/20/20 19:00 07:00 Intake Total 1635 ml Output Total 1000 ml 1000 ml Balance 635 ml -1000 ml Intake Free Water 300 ml IV Total 675 ml Tube Feeding 660 ml Output Urine Total 700 ml 1000 ml Stool Total 300 ml # Voids 1 Laboratory Tests 07/20/20 08:27: Arterial Blood pH 7.459H, Arterial Blood Partial Pressure CO2 35.5, Arterial Blood Partial Pressure O2 , Arterial Blood HCO3 24.6, Arterial Blood Oxygen Saturation 91.9L, Arterial Blood Base Excess 1.0, Conner Test Positive 07/20/20 12:25: White Blood Count 6.6, Red Blood Count 3.25L, Hemoglobin 8.9L, Hematocrit 28.3L, Mean Corpuscular Volume 87, Mean Corpuscular Hemoglobin 27.5, Mean Corpuscular Hemoglobin Concent 31.6L, Red Cell Distribution Width 18.5H, Platelet Count 251, Mean Platelet Volume 6.1L, Neutrophils (%) (Auto) 75.0, Lymphocytes (%) (Auto) 12.4L, Monocytes (%) (Auto) 8.1, Eosinophils (%) (Auto) 4.0H, Basophils (%) (Auto) 0.6, Sodium Level 142, Potassium Level 4.7, Chloride Level 108H, Carbon Dioxide Level 28, Anion Gap 6, Blood Urea Nitrogen 26H, Creatinine 1.1, Estimat Glomerular Filtration Rate > 60, Glucose Level 138H, Calcium Level 8.5 Height (Feet): 5 Height (Inches): 5.00 Weight (Pounds): 150 Objective Eldely WM NCAT (+) trach , T tube Coarse BS RRR abd soft (+) GT ext ne edema Assessment/Plan Status: stable, progressing Assessment/Plan: Assessment - UGIB - resolved off of Eliquis - Anemia - h/o PUD - resp failure, s/p trach - dysphagia, s/p PEG - atrial fibrillation - h/o DVT Recommendations - hold anticoagulation - Continue TF - H2B BID - EGD Tuesday - d/w family Akiko Rai MD Jul 20, 2020 15:07
--- NOTE | 2020-07-20 15:50 | NUR ---
NURSE NOTES: Unable to get consent for EGD at this time, family not picking up RN's calls. Mailbox full. Will attempt later. Addendum: 07/20/20 at 1619 by Hali Dougherty RN NURSE NOTES: Consent for EGD obtained and secured in chart.
[2020-07-20 16:00] VITALS: BP 130/75
--- NOTE | 2020-07-20 16:37 | NUR ---
NURSE NOTES: RT Marin notified this afternoon that suction tubing collapsed and unable to suction, said will fix tubing. RN Marin also aware that trache suction unable to go all the way in, SELIN Funes to check.
--- NOTE | 2020-07-20 19:43 | NUR ---
NURSE HAND-OFF REPORT: Important Events on Shift: Patient Status: obtunded Diet: jevity 1.2 x 60cc/hr; NPO post midnight for EGD Pending Orders: Pending Results/Labs: Pending MD notification: Latest Vital Signs: Temperature 100.0 , Pulse 102 , B/P 130 /75 , Respiratory Rate 26 , O2 SAT 98 , Trach Collar, O2 Flow Rate 10.0 . Vital Sign Comment: EKG Rhythm: Sinus Rhythm Rhythm change?: N Notified?: N -Dr. Aubree VALDEZ Response: Message left await call Latest Ramirez Fall Score: 50 Fall Risk: High Risk Safety Measures: Call light Within Reach, Bed Alarm Zone 1, Side Rails Side Rails x3, Bed position Low and Locked. Fall Precautions: Yellow Socks Yellow Gown Patient Fall Education Report given to Azam SMALLWOOD.
--- NOTE | 2020-07-20 19:55 | NUR ---
NURSE NOTES: Received patient from SELIN Lal. AOx0, aphasic. On 10l oxygen, 35% FiO2, per trach collar, saturating well. With KIZZY PICC, IVF running at a prescribed rate. With rectal tube, patent and draining to gravity. GT feeding patent and draining, flushed. Noted to have an EGD procedure tomorrow; NPO after midnight. Bed in lowest position, brakes engaged and bed alarm on. Call light placed within reach. Will continue to monitor.
[2020-07-20 20:00] VITALS: BP 123/70
[2020-07-20] MEDS: Dyna-Hex 2% Top Sol 2oz TOPIC SCH (20:56)
[2020-07-20] MEDS: Atorvastatin 80mg tab ORAL SCH (20:57)
--- NOTE | 2020-07-20 23:20 | Neurology Progress Note ---
Interim History Interim History ROS Limited/Unobtainable: No Interim History non verbal, eyes open, no new deficits Objective Physical Exam Last Vital Signs Date Time Temp Pulse Resp B/P (MAP) Pulse Ox O2 Delivery O2 Flow Rate FiO2 07/20/20 21:00 Trach Collar 10.0 07/20/20 20:57 102 123/70 07/20/20 20:00 98.4 18 98 07/20/20 19:20 40 Laboratory Tests Test 07/20/20 08:27 07/20/20 12:25 Arterial Blood pH 7.459 (7.350-7.450) Arterial Blood Partial Pressure CO2 35.5 mmHg (35.0-45.0) Arterial Blood Partial Pressure O2 mmHg (75.0-100.0) Arterial Blood HCO3 24.6 mmol/L (22.0-26.0) Arterial Blood Oxygen Saturation 91.9 % (95-100) L Arterial Blood Base Excess 1.0 (-2-2) Conner Test Positive White Blood Count 6.6 K/UL (4.8-10.8) Red Blood Count 3.25 M/UL (4.70-6.10) L Hemoglobin 8.9 G/DL (14.2-18.0) L Hematocrit 28.3 % (42.0-52.0) L Mean Corpuscular Volume 87 FL (80-99) Mean Corpuscular Hemoglobin 27.5 PG (27.0-31.0) Mean Corpuscular Hemoglobin Concent 31.6 G/DL (32.0-36.0) L Red Cell Distribution Width 18.5 % (11.6-14.8) H Platelet Count 251 K/UL (150-450) Mean Platelet Volume 6.1 FL (6.5-10.1) L Neutrophils (%) (Auto) 75.0 % (45.0-75.0) Lymphocytes (%) (Auto) 12.4 % (20.0-45.0) L Monocytes (%) (Auto) 8.1 % (1.0-10.0) Eosinophils (%) (Auto) 4.0 % (0.0-3.0) H Basophils (%) (Auto) 0.6 % (0.0-2.0) Sodium Level 142 MMOL/L (136-145) Potassium Level 4.7 MMOL/L (3.5-5.1) Chloride Level 108 MMOL/L (98-107) H Carbon Dioxide Level 28 MMOL/L (21-32) Anion Gap 6 mmol/L (5-15) Blood Urea Nitrogen 26 mg/dL (7-18) H Creatinine 1.1 MG/DL (0.55-1.30) Estimat Glomerular Filtration Rate > 60 mL/min (>60) Glucose Level 138 MG/DL (74-106) H Calcium Level 8.5 MG/DL (8.5-10.1) Head: normocophalic Neck: no rigidity EENT: benign Neurologic Exam Objective lethargic, pupils reactive not following withdraws to pain Impression/Recommendations Problems: (1) Malfunction of gastrostomy tube (2) Anemia (3) Pleural effusion, left (4) Acute respiratory failure with hypoxia (5) HCAP (healthcare-associated pneumonia) (6) UTI (urinary tract infection) Status: stable, progressing Diagnostic Impression Recurrent sepsis Possible aspiration Encephalopathy, acute on chronic rule out seizures map > 65 ro covid cont atb fu cultures no need for AED now Gerson Singh MD Jul 20, 2020 23:20
[2020-07-21] VITALS (9 sets, daily range): BP systolic 113–137; BP diastolic 62–81
[2020-07-21] MEDS: Vancomycin 750 MG in NS 275 ML IVPB SCH ×2 (02:23→13:56)
--- NOTE | 2020-07-21 03:29 | NUR ---
NURSE NOTES: pt asleep. IVF running at a prescribed rate. tube feeding stopped for procedure this AM. Will continue to monitor. GI checklist accomplished.
[2020-07-21] MEDS: D5 1/2NS 1,000 ML IV SCH ×2 (04:22→17:27)
[2020-07-21] MEDS ORDERED: Atropine Inj 1mg/10ml Syr IVP PRN (07:15)
[2020-07-21] MEDS ORDERED: fentaNYL 100 mcg/2 mL IV PRN (07:15)
[2020-07-21] MEDS ORDERED: Midazolam 2mg/2ml Inj IVP PRN (07:15)
[2020-07-21] MEDS ORDERED: DiphenhydrAMINE 50mg/ml Inj IVP PRN (07:15)
--- NOTE | 2020-07-21 07:16 | Anethesia Preoperative Eval ---
Anesthesia Pre-op PMH/ROS General Date of Evaluation: Jul 21, 2020 Time of Evaluation: 07:10 Anesthesiologist: romy ASA Score: ASA 4 Mallampati Score Class I : Soft palate, uvula, fauces, pillars visible Class II: Soft palate, uvula, fauces visible Class III: Soft palate, base of uvula visible Class IV: Only hard plate visible Mallampati Classification: Class II Surgeon: scot Surgical Procedure: egd Anesthesia History: none Social History: smoking - nonsmoker Family History: no anesthesia problems Allergies: Coded Allergies: No Known Allergies (Unverified , 11/02/19) Medications: see eMAR Patient NPO?: Yes Past Medical History Cardiovascular: Reports: HTN, arrhythmia Pulmonary: Reports: other - pneumonia, pleural effusion, acute respiratory failure w/ hypoxia Gastrointestinal/Genitourinary: Reports: other - uti, g-tube malfunction, Neurologic/Psychiatric: Reports: CVA, other - seizure disorder Hematology/Immune: Reports: anemia, DVT Musculoskeletal/Integumentary: Reports: other - decubitus skin ulcer Anesthesia Pre-op Phys. Exam Physician Exam Last Vital Signs Date Time Temp Pulse Resp B/P (MAP) Pulse Ox O2 Delivery O2 Flow Rate FiO2 07/21/20 04:00 97.9 92 20 113/65 (81) 99 07/21/20 00:00 T-Piece 10.0 40 Constitutional: NAD Neurologic: other - obtunded Cardiovascular: other - irreg Respiratory: other - t-piece Gastrointestinal: other - g-tube Airway Exam Mallampati Score: Class II MO: limited Neck: tracheostomy TMD: 2fb ROM: limited Teeth: missing Anesthesia Pre-op A/P Labs Microbiology Date/Time Source Procedure Growth Status 07/14/20 00:00 Rectum - Final NO CARBAPENEM-RESISTANT ENTEROBACTERI... Complete 07/14/20 00:00 Nasal Nares MRSA Culture - Final NO METHICILLIN RESISTANT STAPH AUREUS... Complete 07/14/20 00:00 Blood Blood Culture - Final Staphylococcus Epidermidis Complete 07/13/20 23:45 Urine,Clean Catch Urine Culture - Final NO GROWTH AFTER 48 HOURS Complete Hematology Test 07/20/20 12:25 White Blood Count 6.6 K/UL (4.8-10.8) Red Blood Count 3.25 M/UL (4.70-6.10) L Hemoglobin 8.9 G/DL (14.2-18.0) L Hematocrit 28.3 % (42.0-52.0) L Mean Corpuscular Volume 87 FL (80-99) Mean Corpuscular Hemoglobin 27.5 PG (27.0-31.0) Mean Corpuscular Hemoglobin Concent 31.6 G/DL (32.0-36.0) L Red Cell Distribution Width 18.5 % (11.6-14.8) H Platelet Count 251 K/UL (150-450) Mean Platelet Volume 6.1 FL (6.5-10.1) L Neutrophils (%) (Auto) 75.0 % (45.0-75.0) Lymphocytes (%) (Auto) 12.4 % (20.0-45.0) L Monocytes (%) (Auto) 8.1 % (1.0-10.0) Eosinophils (%) (Auto) 4.0 % (0.0-3.0) H Basophils (%) (Auto) 0.6 % (0.0-2.0) Chemistry Test 07/20/20 12:25 Sodium Level 142 MMOL/L (136-145) Potassium Level 4.7 MMOL/L (3.5-5.1) Chloride Level 108 MMOL/L (98-107) H Carbon Dioxide Level 28 MMOL/L (21-32) Anion Gap 6 mmol/L (5-15) Blood Urea Nitrogen 26 mg/dL (7-18) H Creatinine 1.1 MG/DL (0.55-1.30) Estimat Glomerular Filtration Rate > 60 mL/min (>60) Glucose Level 138 MG/DL (74-106) H Calcium Level 8.5 MG/DL (8.5-10.1) Risk Assessment & Plan Assessment: asa4 Plan: mac Status Change Before Surgery: No Pre-Antibiotics Drug: Siena Pate MD Jul 21, 2020 07:16
--- NOTE | 2020-07-21 07:24 | NUR ---
NURSE HAND-OFF REPORT: Important Events on Shift:[Patient on NPO for EGD today.] Patient Status: [Full code] Diet: [Jevity 1.2 @60ml/hr] Pending Orders: [] Pending Results/Labs:[] Pending MD notification:[] Latest Vital Signs: Temperature 97.9 , Pulse 92 , B/P 113 /65 , Respiratory Rate 20 , O2 SAT 99 , Trach Collar, O2 Flow Rate 10.0 . Vital Sign Comment: [] EKG Rhythm: Sinus Rhythm Rhythm change?: N Notified?: N -Dr. Aubree VALDEZ Response: Message left await call Latest Ramirez Fall Score: 50 Fall Risk: High Risk Safety Measures: Call light Within Reach, Bed Alarm Zone 1, Side Rails Side Rails x3, Bed position Low and Locked. Fall Precautions: Yellow Socks Yellow Gown Patient Fall Education Report given to [SELIN Mancilla].
[2020-07-21] MEDS ORDERED: Lidocaine 1% MPF 10mg/ml 5ml ONE (07:50)
[2020-07-21] MEDS ORDERED: NS 275ml ONE ×2 (07:50→14:44)
[2020-07-21] MEDS ORDERED: NS 500ML IVPB ONE (08:10)
--- NOTE | 2020-07-21 08:15 | General Progress Note ---
Subjective Allergies: Coded Allergies: No Known Allergies (Unverified , 11/02/19) Subjective Above noted no further bleeding overnight NPO for EGD Objective Last 24 Hour Vital Signs Date Time Temp Pulse Resp B/P (MAP) Pulse Ox O2 Delivery O2 Flow Rate FiO2 07/21/20 04:00 97.9 92 20 113/65 (81) 99 07/21/20 04:00 89 07/21/20 00:00 96 T-Piece 10.0 40 07/21/20 00:00 89 07/21/20 00:00 98.1 94 20 116/62 (80) 100 07/20/20 21:00 Trach Collar 10.0 07/20/20 20:57 102 123/70 07/20/20 20:00 99 07/20/20 20:00 98.4 102 18 123/70 (87) 98 07/20/20 19:20 93 T-Piece 10.0 40 07/20/20 16:00 100.0 102 26 130/75 (93) 98 07/20/20 16:00 100 07/20/20 13:15 98 T-Piece 10.0 40 07/20/20 12:00 97.5 98 26 108/62 (77) 100 07/20/20 12:00 92 07/20/20 10:29 112 139/69 07/20/20 09:00 Trach Collar 10.0 Intake and Output 07/20/20 07/21/20 19:00 07:00 Intake Total 405 ml 600 ml Output Total 1000 ml 900 ml Balance -595 ml -300 ml IV Total 405 ml 600 ml Output Urine Total 1000 ml 900 ml # Voids 1 Laboratory Tests 07/20/20 08:27: Arterial Blood pH 7.459H, Arterial Blood Partial Pressure CO2 35.5, Arterial Blood Partial Pressure O2 , Arterial Blood HCO3 24.6, Arterial Blood Oxygen Saturation 91.9L, Arterial Blood Base Excess 1.0, Conner Test Positive 07/20/20 12:25: White Blood Count 6.6, Red Blood Count 3.25L, Hemoglobin 8.9L, Hematocrit 28.3L, Mean Corpuscular Volume 87, Mean Corpuscular Hemoglobin 27.5, Mean Corpuscular Hemoglobin Concent 31.6L, Red Cell Distribution Width 18.5H, Platelet Count 251, Mean Platelet Volume 6.1L, Neutrophils (%) (Auto) 75.0, Lymphocytes (%) (Auto) 12.4L, Monocytes (%) (Auto) 8.1, Eosinophils (%) (Auto) 4.0H, Basophils (%) (Auto) 0.6, Sodium Level 142, Potassium Level 4.7, Chloride Level 108H, Carbon Dioxide Level 28, Anion Gap 6, Blood Urea Nitrogen 26H, Creatinine 1.1, Estimat Glomerular Filtration Rate > 60, Glucose Level 138H, Calcium Level 8.5 Height (Feet): 5 Height (Inches): 4.00 Weight (Pounds): 171 Objective Eldely WM NCAT (+) trach , T tube Coarse BS RRR abd soft (+) GT ext no edema Assessment/Plan Status: stable, progressing Assessment/Plan: Assessment - UGIB - resolved off of Eliquis - Anemia - h/o PUD - resp failure, s/p trach - dysphagia, s/p PEG - atrial fibrillation - h/o DVT Recommendations - hold anticoagulation - H2B BID - EGD today POST PROCEDURE ADDENDUM EGD: - mild duodenitis - 7-8 mm pre-pyloric polypoid nodule with slight erosion at base - biopsied - GT in appropriate position - no large ulcer or active bleeding - OK to resume anticoagulation this PM - would continue H2B indefinitely Akiko Rai MD Jul 21, 2020 08:15
--- NOTE | 2020-07-21 08:16 | Pre-Procedure Note/Attestation ---
Pre-Procedure Note/Attestation Complete Prior to Procedure Planned Procedure: not applicable Procedure Narrative: egd Indications for Procedure Pre-Operative Diagnosis: ugib Attestation I attest that I discussed the nature of the procedure; its benefits; risks and complications; and alternatives (and the risks and benefits of such alternatives), prior to the procedure, with the patient (or the patient's legal credit representative). I attest that, if there was a reasonable possibility of needing a blood transfusion, the patient (or the patient's legal credit representative) was given the [facility] standardized written summary, pursuant to the Carlos Hernán Blood Safety Act ([place] Health and Safety Code # 1645, as amended). I attest that I re-evaluated the patient just prior to the surgery and that there has been no change in the patient's H&P, except as documented below: Akiko Rai MD Jul 21, 2020 08:15
--- NOTE | 2020-07-21 08:32 | Endoscopy Procedure Note ---
Endoscopy Procedure Note General Indication for Procedure: UGIB Procedures Performed: EGD Operative Findings/Diagnosis: duodenitis, gastric nodule with erosion Specimen: yes Pt Tolerated Procedure Well: Yes Estimated Blood Loss: none Anesthesia Anesthesiologist: saulo rolon Anesthesia: MAC Medications Medication Given: see anesthesia record Inserted Devices Implant(s) used?: No GI Core Measures 50 yrs or older w/o bx or poly: Not Applicable 10yrs. F/U recommended: Not Applicable If not recommended, why?: Akiko Rai MD Jul 21, 2020 08:32
--- NOTE | 2020-07-21 08:34 | Brief Operative Note ---
Immediate Post Operative Note Operative Note Chief Complaint: gib Pre-op Diagnosis: ugib Procedure: egd Post-op Diagnosis: duodenitis, antrum nodule Surgeon: scot Anesthesiologist: Garry Zaman Anesthesia: MAC Specimen: yes Complications: none Condition: stable Fluids: per anesthesia Estimated Blood Loss: none Drains: none Implant(s) used?: No Akiko Rai MD Jul 21, 2020 08:34
--- NOTE | 2020-07-21 08:41 | Endoscopy Procedure Note ---
Endoscopy Procedure Note General Indication for Procedure: ugib Procedures Performed: EGD Operative Findings/Diagnosis: duodenitis, antrum polyp Specimen: yes Pt Tolerated Procedure Well: Yes Estimated Blood Loss: none Anesthesia Anesthesiologist: Garry Zaman Anesthesia: MAC Medications Medication Given: see anesthesia record Inserted Devices Implant(s) used?: No GI Core Measures 50 yrs or older w/o bx or poly: Not Applicable 10yrs. F/U recommended: Not Applicable If not recommended, why?: Akiko Rai MD Jul 21, 2020 08:41
--- NOTE | 2020-07-21 08:43 | Brief Operative Note ---
Immediate Post Operative Note Operative Note Chief Complaint: UGIB Pre-op Diagnosis: ugib Procedure: egd Post-op Diagnosis: duodenitis, antrum nodule Post-op Diagnosis: same as pre-op Surgeon: scot Anesthesiologist: Garry Zaman Anesthesia: MAC Specimen: yes Complications: none Condition: stable Fluids: See anesthesia Estimated Blood Loss: none Drains: none Implant(s) used?: No Akiko Rai MD Jul 21, 2020 08:43
--- NOTE | 2020-07-21 08:52 | Immediate Post-Op Evaluation ---
Immediate Post-Op Evalulation Immediate Post-Op Evalulation Procedure: egd w/bx Date of Evaluation: Jul 21, 2020 Time of Evaluation: 08:49 IV Fluids: 200ml 0.9ns Blood Products: none Estimated Blood Loss: negligible Blood Pressure Systolic: 126 Blood Pressure Diastolic: 73 Pulse Rate: 99 Respiratory Rate: 20 O2 Sat by Pulse Oximetry: 99 Temperature (Fahrenheit): 97.7 Pain Score (1-10): 0 Nausea: No Vomiting: No Complications none Patient Status: awake, reacts, patent Hydration Status: adequate Drug: Siena Pate MD Jul 21, 2020 08:52
--- NOTE | 2020-07-21 08:54 | 48 Hour Post Anesthesia Eval ---
Post Anesthesia Evaluation Procedure: egd w/bx Date of Evaluation: Jul 21, 2020 Time of Evaluation: 08:51 Blood Pressure Systolic: 120 0: 71 Pulse Rate: 99 Respiratory Rate: 20 Temperature (Fahrenheit): 97.7 O2 Sat by Pulse Oximetry: 99 Airway: patent Nausea: No Vomiting: No Pain Intensity: 0 Hydration Status: adequate Cardiopulmonary Status: stable Mental Status/LOC: patient returned to baseline Post-Anesthesia Complications: none Follow-up care needed: N/A Siena Gomez MD Jul 21, 2020 08:54
[2020-07-21] MEDS: Amiodarone 200mg tab GT SCH ×2 (09:29→20:40)
[2020-07-21] MEDS: Zinc Sulfate 220mg GT SCH (09:29)
[2020-07-21] MEDS: Carvedilol 6.25mg Tab ORAL SCH ×2 (09:30→20:40)
[2020-07-21] MEDS: Ascorbic Acid 500mg tab GT SCH ×2 (09:30→17:28)
[2020-07-21] MEDS: Cefepime HCl 1 GM in D5W 55 ML IVPB SCH (09:30)
[2020-07-21] MEDS: Dakin's 0.25% (Half Strength) 16oz TOPIC SCH (09:34)
--- NOTE | 2020-07-21 10:00 | Procedure Note ---
DATE OF PROCEDURE: 07/21/2020 PROCEDURE: Upper gastrointestinal endoscopy with biopsy. SURGEON: Akiko Rai MD. ANESTHESIOLOGIST: Siena March MD PRE-ENDOSCOPIC DIAGNOSIS: Upper gastrointestinal bleeding. POST-ENDOSCOPIC DIAGNOSES: 1. Mild nonerosive duodenitis. 2. A 7 to 8 mm somewhat pedunculated polypoid nodule in the prepyloric region and antrum, status post biopsy. 3. Gastrostomy tube in good position. 4. No active bleeding or high risk ulcer seen. DESCRIPTION OF PROCEDURE: The procedure, its risks, indications, alternatives, and possible complications were explained to the patient's family and informed consent was obtained. A diagnostic upper endoscope was introduced through oropharynx and advanced to the duodenum. The endoscope was then gradually withdrawn and mucosa examined carefully. Examination of the upper gastrointestinal mucosa revealed above findings. Biopsy of prepyloric nodule was sent to pathology for review. Retroflex view of the stomach revealed no lesions. Endoscope was removed and patient was sent to recovery in good condition. COMPLICATIONS: None. RECOMMENDATIONS: 1. Followup biopsy results. 2. Resume anticoagulation. 3. Long-term acid suppression. Akiko Rai M.D. DR: Annalisa JOB#: [id number] CC:
--- NOTE | 2020-07-21 13:06 | Surgery Progress Note ---
Surgery Progress Note Subjective Additional Comments h/h stable trach repositioned no n/v effusion stable Objective Last 24 Hour Vital Signs Date Time Temp Pulse Resp B/P (MAP) Pulse Ox O2 Delivery O2 Flow Rate FiO2 07/21/20 09:30 94 117/70 07/21/20 09:00 97.4 98 26 137/74 97 Trach Collar 5 07/21/20 09:00 Trach Collar 10.0 07/21/20 08:54 99 20 99 07/21/20 08:52 99 20 99 07/21/20 08:50 99 28 131/81 96 Trach Collar 5 07/21/20 08:45 98 25 130/70 96 Trach Collar 5 07/21/20 08:37 97.7 99 20 125/74 97 Trach Collar 5 07/21/20 08:00 94 07/21/20 07:58 97 T-Piece 10.0 40 07/21/20 04:00 97.9 92 20 113/65 (81) 99 07/21/20 04:00 89 07/21/20 00:00 96 T-Piece 10.0 40 07/21/20 00:00 89 07/21/20 00:00 98.1 94 20 116/62 (80) 100 07/20/20 21:00 Trach Collar 10.0 07/20/20 20:57 102 123/70 07/20/20 20:00 99 07/20/20 20:00 98.4 102 18 123/70 (87) 98 07/20/20 19:20 93 T-Piece 10.0 40 07/20/20 16:00 100.0 102 26 130/75 (93) 98 07/20/20 16:00 100 07/20/20 13:15 98 T-Piece 10.0 40 I&O Intake and Output 07/20/20 07/21/20 19:00 07:00 Intake Total 405 ml 600 ml Output Total 1000 ml 900 ml Balance -595 ml -300 ml IV Total 405 ml 600 ml Output Urine Total 1000 ml 900 ml # Voids 1 Dressing: saturated Cardiovascular: RSR Respiratory: decreased breath sounds Abdomen: soft, non-tender, present bowel sounds Extremities: no tenderness, no cyanosis Plan Problems: (1) Decubitus skin ulcer Assessment & Plan: Pt presented on admission with PV shunt,Tracheostomy, Contractures and multiple Pressure Injuries.Skin assessed under tracheal collar. Skin is erythematous but without any open wounds. GT site is red and excoriated.Scattered senile purpuras bilat upper extremities. Full thickness Sacral Pressure Injury(L)11.8cm x (W)8cm. Base of wound is 75% mixed necrosis and slough,20% antonio. Bone is palpable at base. Edges are macerated. Mild odor noted. Small amt brown exudate noted. Periwound is indurated and maroon with additional erythema and scattered Partial thickness shearing. Full Thickness Pressure Injury L trochanteric with undermined borders.(L)5cm x (W)7cm x (D)2.6cm, undermining clockwise 11-2 by 4.2cm @11o'clock. Base of wound is 75%% mixed necrosis and slough,25% antonio. Wound has appearance of two wounds secondary necrotic bridge.In addition, periwound at clockwise 10-2o'clock the base is necrotic and fluctuant with marginal erythema. Small amt malodorous haemopurulent exudate noted. Full thickness Pressure Injury L Ischium(L)3.5cm x (W)2.0cm. Base of wound is 80% slough,20% antonio. Surrounding necrotic borders that are fluctuant.Small amt sanguineous exudate. Mild odor noted. Full thickness Pressure Injury lateral L Tibia to L lateral Malleolus(L)24.5cm x (W)3.5cm. Base of wound is antonio with scattered necrosis and slough, tendon exposure. Semi-detached borders that indurated and macerated with an area of soft necrosis at proximal borders of wound. Small amt haemopurulent exudate noted. No odor noted. Full thickness Pressure Injury L Heel(L)10.3cm x (W)7.5cm. Base of wound is 60% necrotic,10% slough,30% antonio. Bone is palpable. Borders are indurated with a portion of borders rolled giving heel a shaved appearance. Moderate amt haemopurulent exudate. Mild odor noted.Periwound is purpuric and fluctuant. Full thickness Pressure Injury medial/lateral L foot(L)3.5cm x (W)3.5cm x (D)0.3cm. Base of wound is antonio. Borders and periwound are purpuric and fluctuant.Small amt sanguineous exudate noted. Unstageable Pressure Injury Distal/Lateral L foot(L)2.7cm x (W)4.3cm. Base of wound is 80% soft necrosis,20% antonio. Edges are adherent to base of wound. Periwound is purpuric and fluctuant. Full thickness Pressure Injury R heel Plantar(L)8.5cm x (W)9cm. Base of pressure with scattered necrosis and slough,otherwise base of wound is antonio. Edges are macerated with surrounding necrosis. Small amt seropurulent exudate noted.Mild odor noted. Stable dry eschar dorsal R foot1.5cm x (W)1cm. Edges are adherent to base of wound. No erythema,induration or fluctuance periwound. Stable dry eschar distal/lateral R foot (L)0.8cm x (W)0.8cm. NO erythema,induration or fluctuance periwound. R foot is edematous. Tx.Plan: Cleanse Sacral wound with Dakin's Kristel 0.25%. Apply Dakin's moistened kerlix to wound. Apply Triad periwound. Cover with Optifoam drsg. Change Daily and prn. Cleanse L trochanteric Wound with Dakin's Kristel 0.25%. Loosely pack with Dakin's moistened Kerlix, Apply Moisture Barrier Periwound. Cover with Optifoam drsg Daily and prn. Cleanse R Ischial wound with Dakin's Kristel 0.25%. Apply Dakin's moistened gauze to wound. Apply Moisture Barrier Paste periwound. Cover with Optifoam drsg Daily and prn. Cleanse wounds Lateral R lower extremity, R Heel and Lateral R foot with Dakin's Kristel 0.25%. Place Dakin's Moistened gauze to wounds. Apply Triad Paste along edges of wound. Cover wounds with ABD Pads. Wrap with Kerlix from Base of toes. Cleanse wound R heel with Dakin's Kristel 0.25%. Apply Dakin's moistened Gauze to wound. Apply Triad Periwound. Cover with ABD PAd and wrap with Kerlix. Swab dry Eschar dorsal and Lateral aspect of R foot .Cover with Abd Pads and Wrap with Kerlix Daily and prn. Wash GT site with Soap and water. Apply Triad Paste Daily and prn(Leave Open to Air) Reposition at least every 2hours or as tolerated. Place Pillow Between Knees. Off-Load Heels with Pillow. APM/TERRIE Mattress overlay. (2) Anemia Assessment & Plan: trend h/h prbc prn (3) UTI (urinary tract infection) (4) Pleural effusion, left Assessment & Plan: Lungs: Hazy left lung attenuation could be due to consolidation, pulmonary edema; correlate with presentation. Retrocardiac atelectasis without or with consolidation. Pleural space: Small-moderate left pleural effusion with passive atelectasis. No pneumothorax. Heart: Unremarkable. No cardiomegaly. Mediastinum: Unremarkable. Bones/joints: No acute abnormality Tubes, lines and devices: Tracheostomy. Right upper extremity PICC tip in the mid SVC. IMPRESSION: 1. Tracheostomy. 2. Right upper extremity PICC tip in the mid SVC. 3. Small-moderate left pleural effusion with passive atelectasis. 4. Hazy left lung attenuation could be due to consolidation, pulmonary edema; correlate with presentation. 5. Retrocardiac atelectasis without or with consolidation. 6. Recommend CT chest with IV contrast to further characterize these findings. (5) Malfunction of gastrostomy tube Assessment & Plan: DAILY ESTIMATED NEEDS: Needs based on Wounds, pulmonary/ 74.5kg 25-30 kcals/kg 9894-2968 total kcals 1.5-2 g protein/kg 111-149 g total protein 25-30 mL/kg 8900-6681 total fluid mLs NUTRITION DIAGNOSIS: * Swallowing difficulty R/T dysphagia, h/o craniotomy, respiratory failure as evidenced by pt on T-collar, GJ tube dependent. * Increased kcal/prot/micronutrients needs R/T wound healing as evidenced by pt admitted w/ multiple advanced wounds at sacrum, BL heels, Lt leg, pending evaluation. CURRENT TF:Jevity 1.2 @ 60ml/hr x 24 hrs ENTERAL NUTRITION RECOMMENDATIONS: Jevity 1.2 @ 65ml/hr x 24 hrs + Prosource 1pkt TID to provide 1560ml, 1872kcal, 86g+ 33g prot, 1259ml free water * Increase goal rate to 65ml/hr x 24 hrs to better meet est needs * Add Prosource 1pkt TID to meet increased protein needs (33g additional protein) * HOB over 30 degrees/ water flush 150ml q 6hrs without IVF ADDITIONAL RECOMMENDATIONS: * Calibrated bedscale wt * Wound Care: add Vit C 500mg BID, ZnSO4 220mg QD x 10 days Stevie BID * Monitor BGs, need for carb controlled TF * Monitor lytes, replete as needed (6) Acute respiratory failure with hypoxia (7) HCAP (healthcare-associated pneumonia) Deny Westfall Jul 21, 2020 13:06
--- NOTE | 2020-07-21 13:08 | NUR ---
RD ASSESSMENT & RECOMMENDATIONS SEE CARE ACTIVITY FOR COMPLETE ASSESSMENT DAILY ESTIMATED NEEDS: Needs based on Wounds, pulmonary/ 74.5kg 25-30 kcals/kg 1382-1428 total kcals 1.5-2 g protein/kg 111-149 g total protein 25-30 mL/kg 5390-5718 total fluid mLs NUTRITION DIAGNOSIS: * Swallowing difficulty R/T dysphagia, h/o craniotomy, respiratory failure as evidenced by pt on T-collar, GJ tube dependent. * Increased kcal/prot/micronutrients needs R/T wound healing as evidenced by pt admitted w/ multiple advanced wounds at sacrum, BL heels, Lt leg, refer to full wound care eval. CURRENT TF:Jevity 1.2 @ 60ml/hr x 24 hrs-> now Glucerna 1.2 ENTERAL NUTRITION RECOMMENDATIONS: Jevity 1.2 @ 65ml/hr x 24 hrs + Prosource 1pkt TID to provide 1560ml, 1872kcal, 86g+ 33g prot, 1259ml free water * Increase goal rate to 65ml/hr x 24 hrs to better meet est needs * Add Prosource 1pkt TID to meet increased protein needs * HOB over 30 degrees/ water flush 150ml q 6hrs without IVF ADDITIONAL RECOMMENDATIONS: * Calibrated bedscale wt * Wound Care: add Vit C 500mg BID, ZnSO4 220mg QD x 10 days Stevie BID * Monitor BGs, need for carb controlled TF * Monitor lytes, replete as needed
--- NOTE | 2020-07-21 14:01 | General Progress Note ---
Subjective ROS Limited/Unobtainable: No Constitutional: Reports: malaise, weakness HEENT: Reports: no symptoms Cardiovascular: Reports: no symptoms Respiratory: Reports: cough, shortness of breath, sputum Gastrointestinal/Abdominal: Reports: difficulty swallowing Genitourinary: Reports: no symptoms Neurologic/Psychiatric: Reports: no symptoms Endocrine: Reports: no symptoms Hematologic/Lymphatic: Reports: anemia Allergies: Coded Allergies: No Known Allergies (Unverified , 11/02/19) All Systems: reviewed and negative except above Subjective No significant overnight events. Remains on trach collar. Poorly responsive. No reports of bleeding. Cultures reviewed. On IV antibiotic therapy. NPO for egd. Objective Last 24 Hour Vital Signs Date Time Temp Pulse Resp B/P (MAP) Pulse Ox O2 Delivery O2 Flow Rate FiO2 07/21/20 09:30 94 117/70 07/21/20 09:00 97.4 98 26 137/74 97 Trach Collar 5 07/21/20 09:00 Trach Collar 10.0 07/21/20 08:54 99 20 99 07/21/20 08:52 99 20 99 07/21/20 08:50 99 28 131/81 96 Trach Collar 5 07/21/20 08:45 98 25 130/70 96 Trach Collar 5 07/21/20 08:37 97.7 99 20 125/74 97 Trach Collar 5 07/21/20 08:00 94 07/21/20 07:58 97 T-Piece 10.0 40 07/21/20 04:00 97.9 92 20 113/65 (81) 99 07/21/20 04:00 89 07/21/20 00:00 96 T-Piece 10.0 40 07/21/20 00:00 89 07/21/20 00:00 98.1 94 20 116/62 (80) 100 07/20/20 21:00 Trach Collar 10.0 07/20/20 20:57 102 123/70 07/20/20 20:00 99 07/20/20 20:00 98.4 102 18 123/70 (87) 98 07/20/20 19:20 93 T-Piece 10.0 40 07/20/20 16:00 100.0 102 26 130/75 (93) 98 07/20/20 16:00 100 Intake and Output 1/3/21 1/4/21 19:00 07:00 Intake Total 405 ml 600 ml Output Total 1000 ml 900 ml Balance -595 ml -300 ml IV Total 405 ml 600 ml Output Urine Total 1000 ml 900 ml # Voids 1 Height (Feet): 5 Height (Inches): 4.00 Weight (Pounds): 171 Objective General Appearance: WD/WN, confused EENT: normal ENT inspection Neck: normal alignment Cardiovascular: normal rate, regular rhythm Respiratory/Chest: rhonchi - bilaterally Abdomen: normal bowel sounds, non tender, soft, no organomegaly Edema: no edema noted Leg (L), no edema noted Leg (R) Neurologic: disoriented, aphasia Skin: normal pigmentation Assessment/Plan Problem List: (1) Anemia ICD Codes: D64.9 - Anemia, unspecified SNOMED: 516028884, 858467009 Qualifiers: Qualified Codes: D64.9 - Anemia, unspecified (2) Pleural effusion, left ICD Codes: J90 - Pleural effusion, not elsewhere classified SNOMED: 82292136, 980986665 (3) Malfunction of gastrostomy tube ICD Codes: K94.23 - Gastrostomy malfunction SNOMED: 134774328 (4) Acute respiratory failure with hypoxia ICD Codes: J96.01 - Acute respiratory failure with hypoxia SNOMED: 51850823, 807547648 (5) HCAP (healthcare-associated pneumonia) ICD Codes: J18.9 - Pneumonia, unspecified organism SNOMED: 299196812, 054512249 Status: stable, progressing Assessment/Plan: Continue IV antibiotic therapy per ID recommendations. Follow-up cultures Continue suctioning breathing treatments Continue tube feeds Monitor H&H. Transfuse as needed EGD DVT and stress ulcer prophylaxis Monitor on telemetry for recurrent atrial fibrillation. We will discuss with cards any additional treatment. Angel Jaramillo MD Jul 21, 2020 14:01
[2020-07-21] MEDS ORDERED: D5 1/2NS 1000ml IV ONE (14:44)
--- NOTE | 2020-07-21 14:46 | NUR ---
CASE MANAGEMENT:REVIEW 07/21/20 SI: PNA. UTI. BACTEREMIA. UGIB 97.4 98 26 137/74 97% ON 10L VIA TRACH COLLAR IS: IV VANCOMYCIN Q12 IV CEFEPIME Q12 IVF@75/HR ZINC GT QD PEPCID GT Q12 COREG PO Q12 AMIODARONE GT Q12 KEPPRA PO Q12 : TELEMETRY STATUS DCP: FROM HOME PLAN: EGD TODAY
--- NOTE | 2020-07-21 16:15 | Infectious Diseases Prog Note ---
Assessment/Plan Assessment/Plan antibiotics : vancomycin iv, cefepime A 1. aspiration pneumonia. COVID19 test is negative. 2. coag neg staph line sepsis 3. Hypertension. 4. Atrial fibrillation. 5. anemia 6. respiratory failure S/p tracheostomy 7. Left pleural effusion P 1. continue cefepime 2 more days 2. continue iv vancomycin 4 more days 3. consider line removal 4. will follow up cultures Subjective ROS Limited/Unobtainable: Yes Allergies: Coded Allergies: No Known Allergies (Unverified , 11/02/19) Objective Last 24 Hour Vital Signs Date Time Temp Pulse Resp B/P (MAP) Pulse Ox O2 Delivery O2 Flow Rate FiO2 07/21/20 14:39 96 T-Piece 10.0 40 07/21/20 12:00 94 07/21/20 12:00 99.0 97 22 129/78 (95) 96 07/21/20 09:30 94 117/70 07/21/20 09:00 97.4 98 26 137/74 97 Trach Collar 5 07/21/20 09:00 Trach Collar 10.0 07/21/20 08:54 99 20 99 07/21/20 08:52 99 20 99 07/21/20 08:50 99 28 131/81 96 Trach Collar 5 07/21/20 08:45 98 25 130/70 96 Trach Collar 5 07/21/20 08:37 97.7 99 20 125/74 97 Trach Collar 5 07/21/20 08:00 94 07/21/20 07:58 97 T-Piece 10.0 40 07/21/20 04:00 97.9 92 20 113/65 (81) 99 07/21/20 04:00 89 07/21/20 00:00 96 T-Piece 10.0 40 07/21/20 00:00 89 07/21/20 00:00 98.1 94 20 116/62 (80) 100 07/20/20 21:00 Trach Collar 10.0 07/20/20 20:57 102 123/70 07/20/20 20:00 99 07/20/20 20:00 98.4 102 18 123/70 (87) 98 07/20/20 19:20 93 T-Piece 10.0 40 Height (Feet): 5 Height (Inches): 4.00 Weight (Pounds): 171 HEENT: status post trach Respiratory/Chest: lungs clear Cardiovascular: normal rate, regular rhythm, no gallop/murmur Abdomen: soft, non tender, other - GT Extremities: no edema Laboratory Tests Test 07/21/20 14:18 Vancomycin Level Trough 41.6 ug/mL (5.0-12.0) H Current Medications Medications (Trade) Dose Ordered Sig/Clive Route PRN Reason Start Time Stop Time Status Last Admin Dose Admin Acetaminophen (Tylenol) 650 mg Q4H PRN GT Temp >100.5 07/18/20 09:30 08/17/20 09:29 07/18/20 18:16 Acetaminophen (Tylenol) 650 mg Q4H PRN RECTAL Temp >100.5 07/14/20 13:30 08/13/20 13:29 Amiodarone HCl (Cordarone) 200 mg Q12HR GT 07/14/20 21:00 10/12/20 20:59 07/21/20 09:29 Ascorbic Acid (Vitamin C) 250 mg TWICE A DAY GT 07/16/20 18:00 08/15/20 17:59 07/21/20 09:30 Atorvastatin Calcium (Lipitor) 80 mg QHS ORAL 07/14/20 21:00 10/12/20 20:59 07/20/20 20:57 Carvedilol (Coreg) 6.25 mg EVERY 12 HOURS ORAL 07/15/20 09:00 08/14/20 08:59 07/21/20 09:30 Cefepime HCl 1 gm/ Dextrose 55 ml @ 110 mls/hr Q12HR IVPB 07/14/20 21:00 07/21/20 20:59 07/21/20 09:30 Chlorhexidine Gluconate (Jennifer-Hex 2%) 1 applic DAILY@2000 TOPIC 07/17/20 20:00 10/15/20 19:59 07/20/20 20:56 Dextrose/Sodium Chloride 1,000 ml @ 75 mls/hr [id number] IV 07/14/20 17:30 08/13/20 17:29 07/21/20 04:22 Famotidine (Pepcid) 20 mg Q12HR GT 07/16/20 21:00 10/14/20 20:59 07/21/20 09:29 Finasteride (Proscar) 5 mg DAILY ORAL 07/15/20 09:00 10/13/20 08:59 07/21/20 09:29 Levetiracetam (Keppra) 1,000 mg Q12HR ORAL 07/14/20 21:00 08/13/20 20:59 07/21/20 09:29 Multivitamins (Multivitamins) 1 tab DAILY GT 07/17/20 09:00 08/16/20 08:59 07/21/20 09:29 Sodium Hypochlorite (Dakin's Half Strength) 1 applic DAILY TOPIC 07/16/20 13:00 08/15/20 12:59 07/21/20 09:34 Vancomycin HCl (Vanco pharmacy to dose) 1 ea DAILY PRN MISC Per rx protocol 07/16/20 11:30 08/15/20 11:29 Vancomycin HCl 750 mg/Sodium Chloride 275 ml @ 183.333 mls/hr Q12HR@0200,1400 IVPB 07/16/20 14:00 07/23/20 23:59 07/21/20 13:56 Zinc Sulfate (Zinc Sulfate) 220 mg DAILY GT 07/17/20 09:00 07/27/20 08:59 07/21/20 09:29 Kristie Reina MD Jul 21, 2020 16:12
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
--- NOTE | 2020-07-21 19:17 | NUR ---
NURSE HAND-OFF REPORT: Important Events on Shift:[EGD with biopsy, wound care] Patient Status: [FULL CODE/stable] Diet: [jevity 1.2 ] Pending Orders: [] Pending Results/Labs:[] Pending MD notification:[] Latest Vital Signs: Temperature 99.4 , Pulse 95 , B/P 115 /69 , Respiratory Rate 20 , O2 SAT 95 , Trach Collar, O2 Flow Rate 10.0 . Vital Sign Comment: [] EKG Rhythm: Sinus Rhythm Rhythm change?: N MD Notified?: N -Dr. Aubree VALDEZ Response: Message left await call Latest Ramirez Fall Score: 50 Fall Risk: High Risk Safety Measures: Call light Within Reach, Bed Alarm Zone 1, Side Rails Side Rails x2, Bed position Low and Locked. Fall Precautions: Yellow Socks Yellow Gown Patient Fall Education Report given to [Hakan RN].
--- NOTE | 2020-07-21 19:38 | NUR ---
NURSE NOTES: Pt. received from SELIN Mancilla. Pt. aphasic, eyes open, breathing even and unlabored via trach collar 10L, RT at bedside, no indications of respiratory distress, no indications of pain. PICC right upper arm intact, with D5 1/2 NS at 75cc. [place] intact and draining well. Rectal tube intact, draining well. Gtube running glucerna 1.2 at 60cc running. Bed low and locked, side rails x3 up, upper rails padded, head of bed elevated, bed alarm active, and call light in reach.
[2020-07-21] MEDS: Dyna-Hex 2% Top Sol 2oz TOPIC SCH (20:40)
[2020-07-21] MEDS: Atorvastatin 80mg tab ORAL SCH (20:40)
--- NOTE | 2020-07-21 22:59 | Neurology Progress Note ---
Interim History Interim History ROS Limited/Unobtainable: Yes Interim History remains lethargic, quadriparetic Objective Physical Exam Last Vital Signs Date Time Temp Pulse Resp B/P (MAP) Pulse Ox O2 Delivery O2 Flow Rate FiO2 07/21/20 20:40 104 120/72 07/21/20 20:00 98.9 20 94 07/21/20 19:02 T-Piece 10.0 40 Laboratory Tests Test 07/21/20 14:18 Vancomycin Level Trough 41.6 ug/mL (5.0-12.0) H Head: normocophalic Neck: no rigidity EENT: benign Neurologic Exam Objective lethargic, pupils reactive not following withdraws to pain Impression/Recommendations Problems: (1) Malfunction of gastrostomy tube (2) Anemia (3) Pleural effusion, left (4) Acute respiratory failure with hypoxia (5) HCAP (healthcare-associated pneumonia) (6) UTI (urinary tract infection) Status: stable, progressing Diagnostic Impression Recurrent sepsis Possible aspiration Encephalopathy, acute on chronic rule out seizures map > 65 ro covid cont atb fu cultures no need for AED now Gerson Singh MD Jul 21, 2020 22:59
--- NOTE | 2020-07-21 23:55 | General Progress Note ---
Subjective Allergies: Coded Allergies: No Known Allergies (Unverified , 11/02/19) Subjective Above noted no further bleeding overnight NPO for EGD Objective Last 24 Hour Vital Signs Date Time Temp Pulse Resp B/P (MAP) Pulse Ox O2 Delivery O2 Flow Rate FiO2 07/21/20 21:00 Trach Collar 10.0 07/21/20 20:40 104 120/72 07/21/20 20:00 98.9 100 20 120/72 (88) 94 07/21/20 20:00 100 07/21/20 19:02 97 T-Piece 10.0 40 07/21/20 16:00 99.4 106 20 115/69 (84) 95 07/21/20 16:00 95 07/21/20 14:39 96 T-Piece 10.0 40 07/21/20 12:00 94 07/21/20 12:00 99.0 97 22 129/78 (95) 96 07/21/20 09:30 94 117/70 07/21/20 09:00 97.4 98 26 137/74 97 Trach Collar 5 07/21/20 09:00 Trach Collar 10.0 07/21/20 08:54 99 20 99 07/21/20 08:52 99 20 99 07/21/20 08:50 99 28 131/81 96 Trach Collar 5 07/21/20 08:45 98 25 130/70 96 Trach Collar 5 07/21/20 08:37 97.7 99 20 125/74 97 Trach Collar 5 07/21/20 08:00 94 07/21/20 07:58 97 T-Piece 10.0 40 07/21/20 04:00 97.9 92 20 113/65 (81) 99 07/21/20 04:00 89 07/21/20 00:00 96 T-Piece 10.0 40 07/21/20 00:00 89 07/21/20 00:00 98.1 94 20 116/62 (80) 100 Intake and Output 07/20/20 07/21/20 19:00 07:00 Intake Total 405 ml 675 ml Output Total 1000 ml 900 ml Balance -595 ml -225 ml IV Total 405 ml 675 ml Output Urine Total 1000 ml 900 ml # Voids 1 Laboratory Tests 07/21/20 14:18: Vancomycin Level Trough 41.6H Height (Feet): 5 Height (Inches): 4.00 Weight (Pounds): 171 Objective Eldely WM NCAT (+) trach , T tube Coarse BS RRR abd soft (+) GT ext no edema Assessment/Plan Status: stable, progressing Assessment/Plan: Assessment - UGIB - resolved off of Eliquis - Anemia - h/o PUD - resp failure, s/p trach - dysphagia, s/p PEG - atrial fibrillation - h/o DVT Recommendations - hold anticoagulation - H2B BID - EGD today POST PROCEDURE ADDENDUM EGD: - mild duodenitis - 7-8 mm pre-pyloric polypoid nodule with slight erosion at base - biopsied - GT in appropriate position - no large ulcer or active bleeding - OK to resume anticoagulation this PM - would continue H2B indefinitely Akiko Rai MD Jul 21, 2020 23:55
[2020-07-22] VITALS: BP 116/64
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
[2020-07-22 04:00] VITALS: BP 109/60
[2020-07-22 05:38] LABS: BASOPHILS % (AUTO) 0.6 % (0.0-2.0); EOSINOPHILS % (AUTO) 3.8 % (0.0-3.0); HEMATOCRIT 28.4 % (42.0-52.0); HEMOGLOBIN 8.3 G/DL (14.2-18.0); MEAN CORPUSCULAR VOLUME 88 FL (80-99); MONOCYTES % (AUTO) 7.8 % (1.0-10.0); NEUTROPHILS % (AUTO) 75.8 % (45.0-75.0); PLATELET COUNT 293 K/UL (150-450); RED BLOOD COUNT 3.23 M/UL (4.70-6.10); RED CELL DISTRIBUTION WIDTH 18.5 % (11.6-14.8); WHITE BLOOD COUNT 8.1 K/UL (4.8-10.8)
[2020-07-22 05:44] LABS: INR 1.1 (0.9-1.1)
[2020-07-22] MEDS: Acetaminophen 650mg/20.3ml GT PRN ×2 (05:48→20:40)
[2020-07-22 05:53] LABS: ALANINE AMINOTRANSFERASE 28 U/L (12-78); ALBUMIN 0.9 G/DL (3.4-5.0); ALBUMIN/GLOBULIN RATIO 0.2 (1.0-2.7); ALKALINE PHOSPHATASE 118 U/L (46-116); ANION GAP 7 mmol/L (5-15); ASPARTATE AMINO TRANSFERASE 31 U/L (15-37); BILIRUBIN,TOTAL 0.4 MG/DL (0.2-1.0); BLOOD UREA NITROGEN 29 mg/dL (7-18); CALCIUM 8.5 MG/DL (8.5-10.1); CARBON DIOXIDE 26 MMOL/L (21-32); CHLORIDE 109 MMOL/L (98-107); CREATININE 1.1 MG/DL (0.55-1.30); POTASSIUM 4.5 MMOL/L (3.5-5.1); SODIUM 141 MMOL/L (136-145)
[2020-07-22] MEDS: D5 1/2NS 1,000 ML IV SCH ×2 (07:32→20:37)
--- NOTE | 2020-07-22 07:54 | NUR ---
NURSE HAND-OFF REPORT: Important Events on Shift:[PICC dressing changed, right leg and sacral dressings changed, pt. with temperature 101.1 controlled with tylenol] Patient Status: stable Diet: glucerna 1.2 Pending Orders: na Pending Results/Labs:na Pending notification:na Latest Vital Signs: Temperature 98.8 , Pulse 102 , B/P 109 /60 , Respiratory Rate 20 , O2 SAT 95 , Trach Collar, O2 Flow Rate 8.0 . Vital Sign Comment: stable EKG Rhythm: Sinus Rhythm Rhythm change?: N Notified?: N -Dr. Aubree VALDEZ Response: Message left await call Latest Ramirez Fall Score: 50 Fall Risk: High Risk Safety Measures: Call light Within Reach, Bed Alarm Zone 1, Side Rails Side Rails x2, Bed position Low and Locked. Fall Precautions: Yellow Socks Yellow Gown Patient Fall Education Report given to SELIN Junior.
[2020-07-22 08:00] VITALS: BP 130/67
--- NOTE | 2020-07-22 08:19 | Pulmonology Progress Note ---
Subjective ROS Limited/Unobtainable: Yes Constitutional: Denies: fever Allergies: Coded Allergies: No Known Allergies (Unverified , 11/02/19) All Systems: reviewed and negative except above Subjective CARE NOTED nonverbal on oxygen fevers noted issues with suctioning overall stable anemic Objective Last 24 Hour Vital Signs Date Time Temp Pulse Resp B/P (MAP) Pulse Ox O2 Delivery O2 Flow Rate FiO2 07/22/20 06:45 95 T-Piece 8.0 35 07/22/20 06:18 98.8 07/22/20 04:00 101.1 102 20 109/60 (76) 96 07/22/20 04:00 90 07/22/20 00:00 99.2 92 18 116/64 (81) 95 07/22/20 00:00 92 07/21/20 21:00 Trach Collar 10.0 07/21/20 20:40 104 120/72 07/21/20 20:00 98.9 100 20 120/72 (88) 94 07/21/20 20:00 100 07/21/20 19:02 97 T-Piece 10.0 40 07/21/20 16:00 99.4 106 20 115/69 (84) 95 07/21/20 16:00 95 07/21/20 14:39 96 T-Piece 10.0 40 07/21/20 12:00 94 07/21/20 12:00 99.0 97 22 129/78 (95) 96 07/21/20 09:30 94 117/70 07/21/20 09:00 97.4 98 26 137/74 97 Trach Collar 5 07/21/20 09:00 Trach Collar 10.0 07/21/20 08:54 99 20 99 07/21/20 08:52 99 20 99 07/21/20 08:50 99 28 131/81 96 Trach Collar 5 07/21/20 08:45 98 25 130/70 96 Trach Collar 5 07/21/20 08:37 97.7 99 20 125/74 97 Trach Collar 5 Intake and Output 07/21/20 07/22/20 19:00 07:00 Intake Total 900 ml 825 ml Output Total 750 ml 1900 ml Balance 150 ml -1075 ml IV Total 900 ml 225 ml Tube Feeding 600 ml Output Urine Total 750 ml 900 ml Stool Total 1000 ml Estimated Blood Loss 0 ml Objective WDWN NAD chronically ill moderate breath sounds bilaterally without rhonchi or wheeze [id number] NABS nontender GT no CCE nonfocal poorly responsive Laboratory Tests 07/21/20 14:18: Vancomycin Level Trough 41.6H 07/22/20 00:57: Vancomycin Level Trough 33.8H 07/22/20 04:15: White Blood Count 8.1, Red Blood Count 3.23L, Hemoglobin 8.3L, Hematocrit 28.4L, Mean Corpuscular Volume 88, Mean Corpuscular Hemoglobin 25.8L, Mean Corpuscular Hemoglobin Concent 29.3L, Red Cell Distribution Width 18.5H, Platelet Count 293, Mean Platelet Volume 5.9L, Neutrophils (%) (Auto) 75.8H, Lymphocytes (%) (Auto) 12.0L, Monocytes (%) (Auto) 7.8, Eosinophils (%) (Auto) 3.8H, Basophils (%) (Auto) 0.6, Prothrombin Time 12.4H, Prothromb Time International Ratio 1.1, Activated Partial Thromboplast Time 30, Sodium Level 141, Potassium Level 4.5, Chloride Level 109H, Carbon Dioxide Level 26, Anion Gap 7, Blood Urea Nitrogen 29H, Creatinine 1.1, Estimat Glomerular Filtration Rate > 60, Glucose Level 117H , Calcium Level 8.5, Magnesium Level 1.8, Total Bilirubin 0.4, Aspartate Amino Transf (AST/SGOT) 31, Alanine Aminotransferase (ALT/SGPT) 28, Alkaline Phosphatase 118H, Pro-B-Type Natriuretic Peptide 4844H, Total Protein 6.2L, Albumin 0.9L, Globulin 5.3, Albumin/Globulin Ratio 0.2L Current Medications Medications (Trade) Dose Ordered Sig/Clive Route PRN Reason Start Time Stop Time Status Last Admin Dose Admin Acetaminophen (Tylenol) 650 mg Q4H PRN GT Temp >100.5 07/18/20 09:30 08/17/20 09:29 07/22/20 05:48 Acetaminophen (Tylenol) 650 mg Q4H PRN RECTAL Temp >100.5 07/14/20 13:30 08/13/20 13:29 Amiodarone HCl (Cordarone) 200 mg Q12HR GT 07/14/20 21:00 10/12/20 20:59 07/21/20 20:40 Ascorbic Acid (Vitamin C) 250 mg TWICE A DAY GT 07/16/20 18:00 08/15/20 17:59 07/21/20 17:28 Atorvastatin Calcium (Lipitor) 80 mg QHS ORAL 07/14/20 21:00 10/12/20 20:59 07/21/20 20:40 Carvedilol (Coreg) 6.25 mg EVERY 12 HOURS ORAL 07/15/20 09:00 08/14/20 08:59 07/21/20 20:40 Chlorhexidine Gluconate (Jennifer-Hex 2%) 1 applic DAILY@1999 TOPIC 07/17/20 20:00 10/15/20 19:59 07/21/20 20:40 Dextrose/Sodium Chloride 1,000 ml @ 75 mls/hr [id number] IV 07/14/20 17:30 08/13/20 17:29 07/22/20 07:32 Famotidine (Pepcid) 20 mg Q12HR GT 07/16/20 21:00 10/14/20 20:59 07/21/20 20:40 Finasteride (Proscar) 5 mg DAILY ORAL 07/15/20 09:00 10/13/20 08:59 07/21/20 09:29 Levetiracetam (Keppra) 1,000 mg Q12HR ORAL 07/14/20 21:00 08/13/20 20:59 07/21/20 20:40 Multivitamins (Multivitamins) 1 tab DAILY GT 07/17/20 09:00 08/16/20 08:59 07/21/20 09:29 Sodium Hypochlorite (Dakin's Half Strength) 1 applic DAILY TOPIC 07/16/20 13:00 08/15/20 12:59 07/21/20 09:34 Vancomycin HCl (Vanco pharmacy to dose) 1 ea DAILY PRN MISC Per rx protocol 07/16/20 11:30 08/15/20 11:29 Zinc Sulfate (Zinc Sulfate) 220 mg DAILY GT 07/17/20 09:00 07/27/20 08:59 07/21/20 09:29 Assessment/Plan Assessment/Plan Impression: Healthcare-associated pneumonia Acute respiratory failure with hypoxia Tracheostomy status Pleural effusion, left-recurrent Decubitus ulcers Urinary tract infection Anemia S/p previous Craniotomy, RCA occlusion, BOOM OPERATOR shunt Seizure history GERD, dysphagia s/p GJ tube h/o Hypertension h/o Atrial fibrillation Previous DVT and Pulmonary Embolism, Plan CXR and ABG IV Antibiotics IV hydration monitor for change ID follow up J tube feeds as tolerated per gi O2 - needs noted 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
[2020-07-22] MEDS: Amiodarone 200mg tab GT SCH ×2 (09:46→20:38)
[2020-07-22] MEDS: Ascorbic Acid 500mg tab GT SCH ×2 (09:46→17:58)
[2020-07-22] MEDS: Zinc Sulfate 220mg GT SCH (09:46)
[2020-07-22] MEDS: Carvedilol 6.25mg Tab ORAL SCH ×2 (09:47→20:38)
[2020-07-22 12:00] VITALS: BP 131/67
[2020-07-22] MEDS: Dakin's 0.25% (Half Strength) 16oz TOPIC SCH (12:30)
--- NOTE | 2020-07-22 12:38 | NUR ---
RADIOLOGY DEPT., CHEST X-RAY DONE.-P.DYE
--- NOTE | 2020-07-22 14:31 | Diagnostic Imaging Report ---
Indication: Cough Technique: One view of the chest Comparison: 07/20/2020 Findings: With the opacified left hemithorax is again demonstrated. There is some hazy infiltrate in the right midlung, right lung and pleural space otherwise clear. Right arm PICC, tracheostomy remain. Impression: Persistent complete opacification of the left hemithorax. This may indicate complete left lung atelectasis, left pleural effusion, combination of both
--- NOTE | 2020-07-22 14:53 | Surgery Progress Note ---
Surgery Progress Note Subjective Additional Comments h/h stable no n/v comfortable appearing trach okay Objective Last 24 Hour Vital Signs Date Time Temp Pulse Resp B/P (MAP) Pulse Ox O2 Delivery O2 Flow Rate FiO2 07/22/20 13:11 97 T-Piece 8.0 35 07/22/20 12:00 84 07/22/20 12:00 96.6 98 20 131/67 (88) 98 07/22/20 09:47 67 130/67 07/22/20 09:00 Trach Collar 10.0 07/22/20 08:00 98.1 104 20 130/67 (88) 98 07/22/20 08:00 104 07/22/20 06:45 95 T-Piece 8.0 35 07/22/20 06:18 98.8 07/22/20 04:00 101.1 102 20 109/60 (76) 96 07/22/20 04:00 90 07/22/20 00:00 99.2 92 18 116/64 (81) 95 07/22/20 00:00 92 07/21/20 21:00 Trach Collar 10.0 07/21/20 20:40 104 120/72 07/21/20 20:00 98.9 100 20 120/72 (88) 94 07/21/20 20:00 100 07/21/20 19:02 97 T-Piece 10.0 40 07/21/20 16:00 99.4 106 20 115/69 (84) 95 07/21/20 16:00 95 I&O Intake and Output 07/21/20 07/22/20 19:00 07:00 Intake Total 900 ml 825 ml Output Total 750 ml 1900 ml Balance 150 ml -1075 ml IV Total 900 ml 225 ml Tube Feeding 600 ml Output Urine Total 750 ml 900 ml Stool Total 1000 ml Estimated Blood Loss 0 ml Dressing: saturated Cardiovascular: RSR Respiratory: decreased breath sounds Abdomen: soft, non-tender, present bowel sounds Extremities: no tenderness, no cyanosis Laboratory Tests Test 07/22/20 00:57 07/22/20 04:15 Vancomycin Level Trough 33.8 ug/mL (5.0-12.0) H White Blood Count 8.1 K/UL (4.8-10.8) Red Blood Count 3.23 M/UL (4.70-6.10) L Hemoglobin 8.3 G/DL (14.2-18.0) L Hematocrit 28.4 % (42.0-52.0) L Mean Corpuscular Volume 88 FL (80-99) Mean Corpuscular Hemoglobin 25.8 PG (27.0-31.0) L Mean Corpuscular Hemoglobin Concent 29.3 G/DL (32.0-36.0) L Red Cell Distribution Width 18.5 % (11.6-14.8) H Platelet Count 293 K/UL (150-450) Mean Platelet Volume 5.9 FL (6.5-10.1) L Neutrophils (%) (Auto) 75.8 % (45.0-75.0) H Lymphocytes (%) (Auto) 12.0 % (20.0-45.0) L Monocytes (%) (Auto) 7.8 % (1.0-10.0) Eosinophils (%) (Auto) 3.8 % (0.0-3.0) H Basophils (%) (Auto) 0.6 % (0.0-2.0) Prothrombin Time 12.4 SEC (9.30-11.50) H Prothromb Time International Ratio 1.1 (0.9-1.1) Activated Partial Thromboplast Time 30 SEC (23-33) Sodium Level 141 MMOL/L (136-145) Potassium Level 4.5 MMOL/L (3.5-5.1) Chloride Level 109 MMOL/L (98-107) H Carbon Dioxide Level 26 MMOL/L (21-32) Anion Gap 7 mmol/L (5-15) Blood Urea Nitrogen 29 mg/dL (7-18) H Creatinine 1.1 MG/DL (0.55-1.30) Estimat Glomerular Filtration Rate > 60 mL/min (>60) Glucose Level 117 MG/DL (74-106) H Calcium Level 8.5 MG/DL (8.5-10.1) Magnesium Level 1.8 MG/DL (1.8-2.4) Total Bilirubin 0.4 MG/DL (0.2-1.0) Aspartate Amino Transf (AST/SGOT) 31 U/L (15-37) Alanine Aminotransferase (ALT/SGPT) 28 U/L (12-78) Alkaline Phosphatase 118 U/L (46-116) H Pro-B-Type Natriuretic Peptide 4844 pg/mL (0-125) H Total Protein 6.2 G/DL (6.4-8.2) L Albumin 0.9 G/DL (3.4-5.0) L Globulin 5.3 g/dL Albumin/Globulin Ratio 0.2 (1.0-2.7) L Plan Problems: (1) Decubitus skin ulcer Assessment & Plan: Pt presented on admission with PV shunt,Tracheostomy, Contractures and multiple Pressure Injuries.Skin assessed under tracheal collar. Skin is erythematous but without any open wounds. GT site is red and excoriated.Scattered senile purpuras bilat upper extremities. Full thickness Sacral Pressure Injury(L)11.8cm x (W)8cm. Base of wound is 75% mixed necrosis and slough,20% antonio. Bone is palpable at base. Edges are macerated. Mild odor noted. Small amt brown exudate noted. Periwound is indurated and maroon with additional erythema and scattered Partial thickness shearing. Full Thickness Pressure Injury L trochanteric with undermined borders.(L)5cm x (W)7cm x (D)2.6cm, undermining clockwise 11-2 by 4.2cm @11o'clock. Base of wound is 75%% mixed necrosis and slough,25% antonio. Wound has appearance of two wounds secondary necrotic bridge.In addition, periwound at clockwise 10-2o'clock the base is necrotic and fluctuant with marginal erythema. Small amt malodorous haemopurulent exudate noted. Full thickness Pressure Injury L Ischium(L)3.5cm x (W)2.0cm. Base of wound is 80% slough,20% antonio. Surrounding necrotic borders that are fluctuant.Small amt sanguineous exudate. Mild odor noted. Full thickness Pressure Injury lateral L Tibia to L lateral Malleolus(L)24.5cm x (W)3.5cm. Base of wound is antonio with scattered necrosis and slough, tendon exposure. Semi-detached borders that indurated and macerated with an area of soft necrosis at proximal borders of wound. Small amt haemopurulent exudate noted. No odor noted. Full thickness Pressure Injury L Heel(L)10.3cm x (W)7.5cm. Base of wound is 60% necrotic,10% slough,30% antonio. Bone is palpable. Borders are indurated with a portion of borders rolled giving heel a shaved appearance. Moderate amt haemopurulent exudate. Mild odor noted.Periwound is purpuric and fluctuant. Full thickness Pressure Injury medial/lateral L foot(L)3.5cm x (W)3.5cm x (D)0.3cm. Base of wound is antonio. Borders and periwound are purpuric and fluctuant.Small amt sanguineous exudate noted. Unstageable Pressure Injury Distal/Lateral L foot(L)2.7cm x (W)4.3cm. Base of wound is 80% soft necrosis,20% antonio. Edges are adherent to base of wound. Periwound is purpuric and fluctuant. Full thickness Pressure Injury R heel Plantar(L)8.5cm x (W)9cm. Base of pressure with scattered necrosis and slough,otherwise base of wound is antonio. Edges are macerated with surrounding necrosis. Small amt seropurulent exudate noted.Mild odor noted. Stable dry eschar dorsal R foot1.5cm x (W)1cm. Edges are adherent to base of wound. No erythema,induration or fluctuance periwound. Stable dry eschar distal/lateral R foot (L)0.8cm x (W)0.8cm. NO erythema,induration or fluctuance periwound. R foot is edematous. Tx.Plan: Cleanse Sacral wound with Dakin's Kristel 0.25%. Apply Dakin's moistened kerlix to wound. Apply Triad periwound. Cover with Optifoam drsg. Change Daily and prn. Cleanse L trochanteric Wound with Dakin's Kristel 0.25%. Loosely pack with Dakin's moistened Kerlix, Apply Moisture Barrier Periwound. Cover with Optifoam drsg Daily and prn. Cleanse R Ischial wound with Dakin's Kristel 0.25%. Apply Dakin's moistened gauze to wound. Apply Moisture Barrier Paste periwound. Cover with Optifoam drsg Daily and prn. Cleanse wounds Lateral R lower extremity, R Heel and Lateral R foot with Dakin's Kristel 0.25%. Place Dakin's Moistened gauze to wounds. Apply Triad Paste along edges of wound. Cover wounds with ABD Pads. Wrap with Kerlix from Base of toes. Cleanse wound R heel with Dakin's Kristel 0.25%. Apply Dakin's moistened Gauze to wound. Apply Triad Periwound. Cover with ABD PAd and wrap with Kerlix. Swab dry Eschar dorsal and Lateral aspect of R foot .Cover with Abd Pads and Wrap with Kerlix Daily and prn. Wash GT site with Soap and water. Apply Triad Paste Daily and prn(Leave Open to Air) Reposition at least every 2hours or as tolerated. Place Pillow Between Knees. Off-Load Heels with Pillow. APM/TERRIE Mattress overlay. (2) Anemia Assessment & Plan: trend h/h prbc prn (3) UTI (urinary tract infection) (4) Pleural effusion, left Assessment & Plan: Lungs: Hazy left lung attenuation could be due to consolidation, pulmonary edema; correlate with presentation. Retrocardiac atelectasis without or with consolidation. Pleural space: Small-moderate left pleural effusion with passive atelectasis. No pneumothorax. Heart: Unremarkable. No cardiomegaly. Mediastinum: Unremarkable. Bones/joints: No acute abnormality Tubes, lines and devices: Tracheostomy. Right upper extremity PICC tip in the mid SVC. IMPRESSION: 1. Tracheostomy. 2. Right upper extremity PICC tip in the mid SVC. 3. Small-moderate left pleural effusion with passive atelectasis. 4. Hazy left lung attenuation could be due to consolidation, pulmonary edema; correlate with presentation. 5. Retrocardiac atelectasis without or with consolidation. 6. Recommend CT chest with IV contrast to further characterize these findings. (5) Malfunction of gastrostomy tube Assessment & Plan: DAILY ESTIMATED NEEDS: Needs based on Wounds, pulmonary/ 74.5kg 25-30 kcals/kg 2924-0430 total kcals 1.5-2 g protein/kg 111-149 g total protein 25-30 mL/kg 3789-8138 total fluid mLs NUTRITION DIAGNOSIS: * Swallowing difficulty R/T dysphagia, h/o craniotomy, respiratory failure as evidenced by pt on T-collar, GJ tube dependent. * Increased kcal/prot/micronutrients needs R/T wound healing as evidenced by pt admitted w/ multiple advanced wounds at sacrum, BL heels, Lt leg, pending evaluation. CURRENT TF:Jevity 1.2 @ 60ml/hr x 24 hrs ENTERAL NUTRITION RECOMMENDATIONS: Jevity 1.2 @ 65ml/hr x 24 hrs + Prosource 1pkt TID to provide 1560ml, 1872kcal, 86g+ 33g prot, 1259ml free water * Increase goal rate to 65ml/hr x 24 hrs to better meet est needs * Add Prosource 1pkt TID to meet increased protein needs (33g additional protein) * HOB over 30 degrees/ water flush 150ml q 6hrs without IVF ADDITIONAL RECOMMENDATIONS: * Calibrated bedscale wt * Wound Care: add Vit C 500mg BID, ZnSO4 220mg QD x 10 days Stevie BID * Monitor BGs, need for carb controlled TF * Monitor lytes, replete as needed (6) Acute respiratory failure with hypoxia (7) HCAP (healthcare-associated pneumonia) Deny Westfall Jul 22, 2020 14:53
--- NOTE | 2020-07-22 15:45 | General Progress Note ---
Subjective ROS Limited/Unobtainable: No Constitutional: Reports: malaise, weakness HEENT: Reports: no symptoms Cardiovascular: Reports: no symptoms Respiratory: Reports: shortness of breath Gastrointestinal/Abdominal: Reports: no symptoms Genitourinary: Reports: no symptoms Neurologic/Psychiatric: Reports: pre-existing deficit Endocrine: Reports: no symptoms Hematologic/Lymphatic: Reports: anemia Allergies: Coded Allergies: No Known Allergies (Unverified , 11/02/19) All Systems: reviewed and negative except above Subjective No significant overnight events. Remains on trach collar. Poorly responsive. No reports of bleeding. Cultures reviewed. On IV antibiotic therapy. cxr with left sided opacification Objective Last 24 Hour Vital Signs Date Time Temp Pulse Resp B/P (MAP) Pulse Ox O2 Delivery O2 Flow Rate FiO2 07/22/20 13:11 97 T-Piece 8.0 35 07/22/20 12:00 84 07/22/20 12:00 96.6 98 20 131/67 (88) 98 07/22/20 09:47 67 130/67 07/22/20 09:00 Trach Collar 10.0 07/22/20 08:00 98.1 104 20 130/67 (88) 98 07/22/20 08:00 104 07/22/20 06:45 95 T-Piece 8.0 35 07/22/20 06:18 98.8 07/22/20 04:00 101.1 102 20 109/60 (76) 96 07/22/20 04:00 90 07/22/20 00:00 99.2 92 18 116/64 (81) 95 07/22/20 00:00 92 07/21/20 21:00 Trach Collar 10.0 07/21/20 20:40 104 120/72 07/21/20 20:00 98.9 100 20 120/72 (88) 94 07/21/20 20:00 100 07/21/20 19:02 97 T-Piece 10.0 40 07/21/20 16:00 99.4 106 20 115/69 (84) 95 07/21/20 16:00 95 Intake and Output 07/21/20 07/22/20 19:00 07:00 Intake Total 900 ml 825 ml Output Total 750 ml 1900 ml Balance 150 ml -1075 ml IV Total 900 ml 225 ml Tube Feeding 600 ml Output Urine Total 750 ml 900 ml Stool Total 1000 ml Estimated Blood Loss 0 ml Laboratory Tests 07/22/20 00:57: Vancomycin Level Trough 33.8H 07/22/20 04:15: White Blood Count 8.1, Red Blood Count 3.23L, Hemoglobin 8.3L, Hematocrit 28.4L, Mean Corpuscular Volume 88, Mean Corpuscular Hemoglobin 25.8L, Mean Corpuscular Hemoglobin Concent 29.3L, Red Cell Distribution Width 18.5H, Platelet Count 293, Mean Platelet Volume 5.9L, Neutrophils (%) (Auto) 75.8H, Lymphocytes (%) (Auto) 12.0L, Monocytes (%) (Auto) 7.8, Eosinophils (%) (Auto) 3.8H, Basophils (%) (Auto) 0.6, Prothrombin Time 12.4H, Prothromb Time International Ratio 1.1, Activated Partial Thromboplast Time 30, Sodium Level 141, Potassium Level 4.5, Chloride Level 109H, Carbon Dioxide Level 26, Anion Gap 7, Blood Urea Nitrogen 29H, Creatinine 1.1, Estimat Glomerular Filtration Rate > 60, Glucose Level 117H , Calcium Level 8.5, Magnesium Level 1.8, Total Bilirubin 0.4, Aspartate Amino Transf (AST/SGOT) 31, Alanine Aminotransferase (ALT/SGPT) 28, Alkaline Phosphatase 118H, Pro-B-Type Natriuretic Peptide 4844H, Total Protein 6.2L, Albumin 0.9L, Globulin 5.3, Albumin/Globulin Ratio 0.2L Height (Feet): 5 Height (Inches): 4.00 Weight (Pounds): 171 Objective General Appearance: WD/WN, confused EENT: normal ENT inspection Neck: normal alignment Cardiovascular: normal rate, regular rhythm Respiratory/Chest: rhonchi - bilaterally Abdomen: normal bowel sounds, non tender, soft, no organomegaly Edema: no edema noted Leg (L), no edema noted Leg (R) Neurologic: disoriented, aphasia Skin: normal pigmentation Assessment/Plan Problem List: (1) Anemia ICD Codes: D64.9 - Anemia, unspecified SNOMED: 307927920, 726937654 Qualifiers: Qualified Codes: D64.9 - Anemia, unspecified (2) Pleural effusion, left ICD Codes: J90 - Pleural effusion, not elsewhere classified SNOMED: 28525848, 519980034 (3) Malfunction of gastrostomy tube ICD Codes: K94.23 - Gastrostomy malfunction SNOMED: 103627177 (4) Acute respiratory failure with hypoxia ICD Codes: J96.01 - Acute respiratory failure with hypoxia SNOMED: 11592162, 154214357 (5) HCAP (healthcare-associated pneumonia) ICD Codes: J18.9 - Pneumonia, unspecified organism SNOMED: 536813361, 218398329 Status: stable, progressing Assessment/Plan: Continue IV antibiotic therapy per ID recommendations. Follow-up cultures Continue suctioning breathing treatments Continue tube feeds chest PT ?thoracentesis Monitor H&H. Transfuse as needed EGD DVT and stress ulcer prophylaxis Monitor on telemetry for recurrent atrial fibrillation. We will discuss with cards any additional treatment. Angel Jaramillo MD Jul 22, 2020 15:45
[2020-07-22 16:00] VITALS: BP 135/87
--- NOTE | 2020-07-22 18:21 | General Progress Note ---
Subjective Allergies: Coded Allergies: No Known Allergies (Unverified , 11/02/19) Subjective Above noted no further bleeding overnight stools medium brown Objective Last 24 Hour Vital Signs Date Time Temp Pulse Resp B/P (MAP) Pulse Ox O2 Delivery O2 Flow Rate FiO2 07/22/20 13:11 97 T-Piece 8.0 35 07/22/20 12:00 84 07/22/20 12:00 96.6 98 20 131/67 (88) 98 07/22/20 09:47 67 130/67 07/22/20 09:00 Trach Collar 10.0 07/22/20 08:00 98.1 104 20 130/67 (88) 98 07/22/20 08:00 104 07/22/20 06:45 95 T-Piece 8.0 35 07/22/20 06:18 98.8 07/22/20 04:00 101.1 102 20 109/60 (76) 96 07/22/20 04:00 90 07/22/20 00:00 99.2 92 18 116/64 (81) 95 07/22/20 00:00 92 07/21/20 21:00 Trach Collar 10.0 07/21/20 20:40 104 120/72 07/21/20 20:00 98.9 100 20 120/72 (88) 94 07/21/20 20:00 100 07/21/20 19:02 97 T-Piece 10.0 40 Intake and Output 07/21/20 07/22/20 19:00 07:00 Intake Total 900 ml 825 ml Output Total 750 ml 1900 ml Balance 150 ml -1075 ml IV Total 900 ml 225 ml Tube Feeding 600 ml Output Urine Total 750 ml 900 ml Stool Total 1000 ml Estimated Blood Loss 0 ml Laboratory Tests 07/22/20 00:57: Vancomycin Level Trough 33.8H 07/22/20 04:15: White Blood Count 8.1, Red Blood Count 3.23L, Hemoglobin 8.3L, Hematocrit 28.4L, Mean Corpuscular Volume 88, Mean Corpuscular Hemoglobin 25.8L, Mean Corpuscular Hemoglobin Concent 29.3L, Red Cell Distribution Width 18.5H, Platelet Count 293, Mean Platelet Volume 5.9L, Neutrophils (%) (Auto) 75.8H, Lymphocytes (%) (Auto) 12.0L, Monocytes (%) (Auto) 7.8, Eosinophils (%) (Auto) 3.8H, Basophils (%) (Auto) 0.6, Prothrombin Time 12.4H, Prothromb Time International Ratio 1.1, Activated Partial Thromboplast Time 30, Sodium Level 141, Potassium Level 4.5, Chloride Level 109H, Carbon Dioxide Level 26, Anion Gap 7, Blood Urea Nitrogen 29H, Creatinine 1.1, Estimat Glomerular Filtration Rate > 60, Glucose Level 117H , Calcium Level 8.5, Magnesium Level 1.8, Total Bilirubin 0.4, Aspartate Amino Transf (AST/SGOT) 31, Alanine Aminotransferase (ALT/SGPT) 28, Alkaline Phosphatase 118H, Pro-B-Type Natriuretic Peptide 4844H, Total Protein 6.2L, Albumin 0.9L, Globulin 5.3, Albumin/Globulin Ratio 0.2L 07/22/20 17:55: Random Vancomycin Level [Pending] Height (Feet): 5 Height (Inches): 4.00 Weight (Pounds): 171 Objective Eldely WM NCAT (+) trach , T tube Coarse BS RRR abd soft (+) GT ext no edema Assessment/Plan Status: stable, progressing Assessment/Plan: Assessment - UGIB - resolved - Anemia - h/o PUD - resp failure, s/p trach - dysphagia, s/p PEG - atrial fibrillation - h/o DVT - EGD: - mild duodenitis - 7-8 mm pre-pyloric polypoid nodule with slight erosion at base - biopsied - GT in appropriate position - no large ulcer or active bleeding Recommendations - resume anticoagulation - H2B BID indefinitely - TF - follow H&H - If recurrent bleeding --> colonoscopy Akiko Rai MD Jul 22, 2020 18:21
--- NOTE | 2020-07-22 18:59 | NUR ---
NURSE HAND-OFF REPORT: Important Events on Shift:[Wound care was done. ] Patient Status: [full code] Diet: [Glucerna 1.2] Pending Orders: [] Pending Results/Labs:[] Pending MD notification:[] Latest Vital Signs: Temperature 98.9 , Pulse 93 , B/P 135 /87 , Respiratory Rate 20 , O2 SAT 98 , Trach Collar, O2 Flow Rate 8.0 . Vital Sign Comment: [] EKG Rhythm: Sinus Rhythm Rhythm change?: N Notified?: N -Dr. Aubree VALDEZ Response: Message left await call Latest Ramirez Fall Score: 50 Fall Risk: High Risk Safety Measures: Call light Within Reach, Bed Alarm Zone 1, Side Rails Side Rails x2, Bed position Low and Locked. Fall Precautions: Yellow Socks Yellow Gown Patient Fall Education Report given to SELIN Castro[].
--- NOTE | 2020-07-22 19:07 | Diagnostic Imaging Report ---
Indication: Abnormal chest radiograph, shortness of breath Technique: Grayscale and duplex images of the bilateral hemithoraces Comparison: Reference made to chest radiograph of earlier the same day Findings: There is a massive left pleural effusion, corresponding to findings seen on prior chest radiograph. No pleural fluid seen on the right. Impression: Massive left pleural effusion
--- NOTE | 2020-07-22 19:08 | NUR ---
NURSE NOTES: Pt. received from SELIN Junior. Pt. nonverbal, awake, breathing even and unlabored via trach collar 10L, RT at bedside, no indications of respiratory distress, no indications of pain. PICC right upper arm intact, with D5 1/2 NS at 75cc. [place] intact, yellow urine draining well. Rectal tube intact, draining. Gtube running glucerna 1.2 at 60cc running. Bed low and locked, side rails x3 up, upper rails padded, head of bed elevated, bed alarm active, and call light in reach.
[2020-07-22 20:00] VITALS: BP 129/80
[2020-07-22] MEDS: Dyna-Hex 2% Top Sol 2oz TOPIC SCH (20:37)
[2020-07-22] MEDS: Atorvastatin 80mg tab ORAL SCH (20:37)
--- NOTE | 2020-07-22 21:44 | Neurology Progress Note ---
Interim History Interim History ROS Limited/Unobtainable: No Interim History remains in resp distress no seizures Objective Physical Exam Last Vital Signs Date Time Temp Pulse Resp B/P (MAP) Pulse Ox O2 Delivery O2 Flow Rate FiO2 07/22/20 20:38 103 129/80 07/22/20 19:47 96 T-Piece 8.0 35 07/22/20 16:00 98.9 20 Laboratory Tests Test 07/22/20 00:57 07/22/20 04:15 07/22/20 17:55 Vancomycin Level Trough 33.8 ug/mL (5.0-12.0) H White Blood Count 8.1 K/UL (4.8-10.8) Red Blood Count 3.23 M/UL (4.70-6.10) L Hemoglobin 8.3 G/DL (14.2-18.0) L Hematocrit 28.4 % (42.0-52.0) L Mean Corpuscular Volume 88 FL (80-99) Mean Corpuscular Hemoglobin 25.8 PG (27.0-31.0) L Mean Corpuscular Hemoglobin Concent 29.3 G/DL (32.0-36.0) L Red Cell Distribution Width 18.5 % (11.6-14.8) H Platelet Count 293 K/UL (150-450) Mean Platelet Volume 5.9 FL (6.5-10.1) L Neutrophils (%) (Auto) 75.8 % (45.0-75.0) H Lymphocytes (%) (Auto) 12.0 % (20.0-45.0) L Monocytes (%) (Auto) 7.8 % (1.0-10.0) Eosinophils (%) (Auto) 3.8 % (0.0-3.0) H Basophils (%) (Auto) 0.6 % (0.0-2.0) Prothrombin Time 12.4 SEC (9.30-11.50) H Prothromb Time International Ratio 1.1 (0.9-1.1) Activated Partial Thromboplast Time 30 SEC (23-33) Sodium Level 141 MMOL/L (136-145) Potassium Level 4.5 MMOL/L (3.5-5.1) Chloride Level 109 MMOL/L (98-107) H Carbon Dioxide Level 26 MMOL/L (21-32) Anion Gap 7 mmol/L (5-15) Blood Urea Nitrogen 29 mg/dL (7-18) H Creatinine 1.1 MG/DL (0.55-1.30) Estimat Glomerular Filtration Rate > 60 mL/min (>60) Glucose Level 117 MG/DL (74-106) H Calcium Level 8.5 MG/DL (8.5-10.1) Magnesium Level 1.8 MG/DL (1.8-2.4) Total Bilirubin 0.4 MG/DL (0.2-1.0) Aspartate Amino Transf (AST/SGOT) 31 U/L (15-37) Alanine Aminotransferase (ALT/SGPT) 28 U/L (12-78) Alkaline Phosphatase 118 U/L (46-116) H Pro-B-Type Natriuretic Peptide 4844 pg/mL (0-125) H Total Protein 6.2 G/DL (6.4-8.2) L Albumin 0.9 G/DL (3.4-5.0) L Globulin 5.3 g/dL Albumin/Globulin Ratio 0.2 (1.0-2.7) L Random Vancomycin Level 23.9 ug/mL Head: normocophalic Neck: no rigidity EENT: benign Neurologic Exam Objective lethargic, pupils reactive not following withdraws to pain Impression/Recommendations Problems: (1) Malfunction of gastrostomy tube (2) Anemia (3) Pleural effusion, left (4) Acute respiratory failure with hypoxia (5) HCAP (healthcare-associated pneumonia) (6) UTI (urinary tract infection) Status: stable, progressing Diagnostic Impression Recurrent sepsis Possible aspiration Encephalopathy, acute on chronic rule out seizures map > 65 ro covid cont atb fu cultures no need for AED now Gerson Singh MD Jul 22, 2020 21:43
[2020-07-23] VITALS: BP 110/75
--- NOTE | 2020-07-23 01:08 | Cardiology Progress Note ---
Subjective DATE OF SERVICE: Jul 22, 2020 Withdrawn but alert with spontaneous eye movements. Monitor: Sinus arrhythmia with PAC's and paroxysms of AFib. Troponins now normalized Objective Last 24 Hour Vital Signs Date Time Temp Pulse Resp B/P (MAP) Pulse Ox O2 Delivery O2 Flow Rate FiO2 07/22/20 21:10 99.4 07/22/20 21:00 Trach Collar 10.0 07/22/20 20:38 103 129/80 07/22/20 20:00 95 07/22/20 20:00 100.6 95 22 129/80 (96) 96 07/22/20 19:47 96 T-Piece 8.0 35 07/22/20 16:00 98.9 87 20 135/87 (103) 98 07/22/20 16:00 93 07/22/20 13:11 97 T-Piece 8.0 35 07/22/20 12:00 84 07/22/20 12:00 96.6 98 20 131/67 (88) 98 07/22/20 09:47 67 130/67 07/22/20 09:00 Trach Collar 10.0 07/22/20 08:00 98.1 104 20 130/67 (88) 98 07/22/20 08:00 104 07/22/20 06:45 95 T-Piece 8.0 35 07/22/20 06:18 98.8 07/22/20 04:00 101.1 102 20 109/60 (76) 96 07/22/20 04:00 90 ROS: unchanged from 07/14/20 HEENT: Thick Trach secretions RHYTHM: NSR, ST, PACs, Afib LUNGS: bilateral rhonchi CARDIAC: normal S1 and S2, rapid rate, arrhythmia ABDOMEN: normal bowel sounds, soft, G-Tube intact EXTREMITIES: normal range of motion, non-tender, trace edema, other - withdrawn Laboratory Tests Test 07/22/20 04:15 07/22/20 17:55 White Blood Count 8.1 K/UL (4.8-10.8) Red Blood Count 3.23 M/UL (4.70-6.10) L Hemoglobin 8.3 G/DL (14.2-18.0) L Hematocrit 28.4 % (42.0-52.0) L Mean Corpuscular Volume 88 FL (80-99) Mean Corpuscular Hemoglobin 25.8 PG (27.0-31.0) L Mean Corpuscular Hemoglobin Concent 29.3 G/DL (32.0-36.0) L Red Cell Distribution Width 18.5 % (11.6-14.8) H Platelet Count 293 K/UL (150-450) Mean Platelet Volume 5.9 FL (6.5-10.1) L Neutrophils (%) (Auto) 75.8 % (45.0-75.0) H Lymphocytes (%) (Auto) 12.0 % (20.0-45.0) L Monocytes (%) (Auto) 7.8 % (1.0-10.0) Eosinophils (%) (Auto) 3.8 % (0.0-3.0) H Basophils (%) (Auto) 0.6 % (0.0-2.0) Prothrombin Time 12.4 SEC (9.30-11.50) H Prothromb Time International Ratio 1.1 (0.9-1.1) Activated Partial Thromboplast Time 30 SEC (23-33) Sodium Level 141 MMOL/L (136-145) Potassium Level 4.5 MMOL/L (3.5-5.1) Chloride Level 109 MMOL/L (98-107) H Carbon Dioxide Level 26 MMOL/L (21-32) Anion Gap 7 mmol/L (5-15) Blood Urea Nitrogen 29 mg/dL (7-18) H Creatinine 1.1 MG/DL (0.55-1.30) Estimat Glomerular Filtration Rate > 60 mL/min (>60) Glucose Level 117 MG/DL (74-106) H Calcium Level 8.5 MG/DL (8.5-10.1) Magnesium Level 1.8 MG/DL (1.8-2.4) Total Bilirubin 0.4 MG/DL (0.2-1.0) Aspartate Amino Transf (AST/SGOT) 31 U/L (15-37) Alanine Aminotransferase (ALT/SGPT) 28 U/L (12-78) Alkaline Phosphatase 118 U/L (46-116) H Pro-B-Type Natriuretic Peptide 4844 pg/mL (0-125) H Total Protein 6.2 G/DL (6.4-8.2) L Albumin 0.9 G/DL (3.4-5.0) L Globulin 5.3 g/dL Albumin/Globulin Ratio 0.2 (1.0-2.7) L Random Vancomycin Level 23.9 ug/mL Assessment/Plan Assessment/Plan Healthcare associated PNA Paroxysmal atrial fibrillation Paroxysmal atrial ectopy Hx ICB with craniotomy and [employer]ILRO[employer] MECH[employer]IC shunt Ac/chronic encephalopathy Seizure disorder Troponin leak; no signs of acute CO Trach status Dysphagia with GJ-Tube 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 Dyslipidemia on high dose statin - now dose adjusted Dehydration/hypernatremia Severe protein-calorie malnutrition Left pleural effusion Abx Resp support Cardiac monitoring Continue full anticoagulation Statin dose adjusted Amiodarone at loading dose. Consider thorocentesis Dylan Mak MD Jul 23, 2020 01:08
--- NOTE | 2020-07-23 02:15 | Cardiology Report ---
APPROVED REPORT EKG Measurement Heart [id number] <Conclusion> Sinus tachycardia with premature atrial complexes in a pattern of bigeminy Otherwise normal ECG
[2020-07-23 04:00] VITALS: BP 127/68
--- NOTE | 2020-07-23 05:23 | NUR ---
NURSE NOTES: Sacral dressing changed, bilateral leg dressing CDI. No gastric residuals noted at this time.
--- NOTE | 2020-07-23 07:18 | NUR ---
NURSE HAND-OFF REPORT: Important Events on Shift:[low grade fever treated with tylenol, suction via trach collar, left ischium dressing cahnged] Patient Status: stable Diet: glucerna 1.2 at 60 Pending Orders: na Pending Results/Labs:na Pending MD notification:need anticoagulants Latest Vital Signs: Temperature 98.6 , Pulse 93 , B/P 127 /68 , Respiratory Rate 22 , O2 SAT 97 , Trach Collar, O2 Flow Rate 10.0 . Vital Sign Comment: stable EKG Rhythm: Sinus Rhythm Rhythm change?: N Notified?: N -Dr. Aubree VALDEZ Response: Message left await call Latest Ramirez Fall Score: 50 Fall Risk: High Risk Safety Measures: Call light Within Reach, Bed Alarm Zone 1, Side Rails Side Rails x2, Bed position Low and Locked. Fall Precautions: Yellow Socks Yellow Gown Patient Fall Education Report given to SELIN Lal.
[2020-07-23 07:50] LABS: HEMATOCRIT 24.9 % (42.0-52.0); HEMOGLOBIN 7.7 G/DL (14.2-18.0); MEAN CORPUSCULAR VOLUME 89 FL (80-99); PLATELET COUNT 283 K/UL (150-450); RED CELL DISTRIBUTION WIDTH 18.1 % (11.6-14.8); WHITE BLOOD COUNT 7.7 K/UL (4.8-10.8)
--- NOTE | 2020-07-23 07:52 | NUR ---
NURSE NOTES: Received patient in bed asleep. Trach intact, no SOB or acute distress. PICC line intact and patent. FC intact, draining yellow colored urine. Wound dressings intact. Gtube intact, feeding ongoing. HOB elevated. Bed locked in low position. Call light within reach. Will continue plan of care.
[2020-07-23 08:00] VITALS: BP 134/67
[2020-07-23 08:01] LABS: ALANINE AMINOTRANSFERASE 23 U/L (12-78); ALBUMIN 0.9 G/DL (3.4-5.0); ALBUMIN/GLOBULIN RATIO 0.2 (1.0-2.7); ALKALINE PHOSPHATASE 134 U/L (46-116); ANION GAP 4 mmol/L (5-15); ASPARTATE AMINO TRANSFERASE 22 U/L (15-37); BILIRUBIN,TOTAL 0.2 MG/DL (0.2-1.0); BLOOD UREA NITROGEN 28 mg/dL (7-18); CALCIUM 8.7 MG/DL (8.5-10.1); CARBON DIOXIDE 29 MMOL/L (21-32); CHLORIDE 108 MMOL/L (98-107); CREATININE 1.1 MG/DL (0.55-1.30); POTASSIUM 4.2 MMOL/L (3.5-5.1); SODIUM 141 MMOL/L (136-145)
[2020-07-23] MEDS: Carvedilol 6.25mg Tab ORAL SCH ×2 (09:12→22:27)
[2020-07-23] MEDS: Ascorbic Acid 500mg tab GT SCH ×2 (09:12→18:03)
[2020-07-23] MEDS: Zinc Sulfate 220mg GT SCH (09:13)
[2020-07-23] MEDS: Dakin's 0.25% (Half Strength) 16oz TOPIC SCH (09:13)
[2020-07-23] MEDS: Amiodarone 200mg tab GT SCH ×2 (09:13→22:22)
[2020-07-23] MEDS: D5 1/2NS 1,000 ML IV SCH (09:32)
--- NOTE | 2020-07-23 10:33 | General Progress Note ---
Subjective ROS Limited/Unobtainable: No Constitutional: Reports: malaise, weakness HEENT: Reports: no symptoms Cardiovascular: Reports: no symptoms Respiratory: Reports: cough, sputum Gastrointestinal/Abdominal: Reports: difficulty swallowing Genitourinary: Reports: no symptoms Neurologic/Psychiatric: Reports: pre-existing deficit Endocrine: Reports: no symptoms Hematologic/Lymphatic: Reports: anemia Allergies: Coded Allergies: No Known Allergies (Unverified , 11/02/19) All Systems: reviewed and negative except above Subjective no change. resting. poorly responsive. on iv abx. cxr with left sided white out. US chest with large pleural effusion. Objective Last 24 Hour Vital Signs Date Time Temp Pulse Resp B/P (MAP) Pulse Ox O2 Delivery O2 Flow Rate FiO2 07/23/20 09:12 104 134/67 07/23/20 09:00 Trach Collar 10.0 07/23/20 08:00 99.2 104 24 134/67 (89) 96 07/23/20 08:00 90 07/23/20 04:00 98.6 93 22 127/68 (87) 97 07/23/20 04:00 93 07/23/20 00:00 91 07/23/20 00:00 97.5 91 22 110/75 (87) 95 07/22/20 21:10 99.4 07/22/20 21:00 Trach Collar 10.0 07/22/20 20:38 103 129/80 07/22/20 20:00 95 07/22/20 20:00 100.6 95 22 129/80 (96) 96 07/22/20 19:47 96 T-Piece 8.0 35 07/22/20 16:00 98.9 87 20 135/87 (103) 98 07/22/20 16:00 93 07/22/20 13:11 97 T-Piece 8.0 35 07/22/20 12:00 84 07/22/20 12:00 96.6 98 20 131/67 (88) 98 Intake and Output 07/22/20 07/23/20 18:59 06:59 Intake Total 1585 ml Output Total 1200 ml 600 ml Balance -1200 ml 985 ml Intake Free Water 100 ml IV Total 825 ml Tube Feeding 660 ml Output Urine Total 1200 ml 600 ml # Voids 3 Laboratory Tests 07/22/20 17:55: Random Vancomycin Level 23.9 07/23/20 04:22: Random Vancomycin Level 23.2, White Blood Count 7.7, Red Blood Count 2.80L, Hemoglobin 7.7L, Hematocrit 24.9L, Mean Corpuscular Volume 89, Mean Corpuscular Hemoglobin 27.6, Mean Corpuscular Hemoglobin Concent 31.0L, Red Cell Distribution Width 18.1H, Platelet Count 283, Mean Platelet Volume 5.9L, Neutrophils (%) (Auto) , Lymphocytes (%) (Auto) , Monocytes (%) (Auto) , Eosinophils (%) (Auto) , Basophils (%) (Auto) , Neutrophils % (Manual) [Pending], Lymphocytes % (Manual) [Pending], Platelet Estimate [Pending], Platelet Morphology [Pending], Sodium Level 141, Potassium Level 4.2, Chloride Level 108H, Carbon Dioxide Level 29, Anion Gap 4L, Blood Urea Nitrogen 28H, Creatinine 1.1, Estimat Glomerular Filtration Rate > 60, Glucose Level 100, Calcium Level 8.7, Total Bilirubin 0.2, Aspartate Amino Transf (AST/SGOT) 22, Alanine Aminotransferase (ALT/SGPT) 23, Alkaline Phosphatase 134H, Total Protein 6.0L, Albumin 0.9L, Globulin 5.1, Albumin/Globulin Ratio 0.2L Height (Feet): 5 Height (Inches): 4.00 Weight (Pounds): 171 Objective General Appearance: WD/WN, confused EENT: normal ENT inspection Neck: normal alignment Cardiovascular: normal rate, regular rhythm Respiratory/Chest: rhonchi - bilaterally Abdomen: normal bowel sounds, non tender, soft, no organomegaly Edema: no edema noted Leg (L), no edema noted Leg (R) Neurologic: disoriented, aphasia Skin: normal pigmentation Assessment/Plan Problem List: (1) Anemia ICD Codes: D64.9 - Anemia, unspecified SNOMED: 767656115, 225603065 Qualifiers: Qualified Codes: D64.9 - Anemia, unspecified (2) Pleural effusion, left ICD Codes: J90 - Pleural effusion, not elsewhere classified SNOMED: 28637380, 506909063 (3) Malfunction of gastrostomy tube ICD Codes: K94.23 - Gastrostomy malfunction SNOMED: 281200502 (4) Acute respiratory failure with hypoxia ICD Codes: J96.01 - Acute respiratory failure with hypoxia SNOMED: 60111411, 839275038 (5) HCAP (healthcare-associated pneumonia) ICD Codes: J18.9 - Pneumonia, unspecified organism SNOMED: 575148673, 963227761 Status: stable, progressing Assessment/Plan: Continue IV antibiotic therapy per ID recommendations. Follow-up cultures Continue suctioning breathing treatments Continue tube feeds chest PT ?thoracentesis- defer to pulm Monitor H&H. Transfuse as needed EGD DVT and stress ulcer prophylaxis Monitor on telemetry for recurrent atrial fibrillation. We will discuss with cards any additional treatment. Angel Jaramillo MD Jul 23, 2020 10:33
--- NOTE | 2020-07-23 11:33 | NUR ---
NURSE NOTES: H &H 7.7 and 24.9, Dr Devlin made aware, left message, awaiting orders.
[2020-07-23 12:00] VITALS: BP_SYST 106; BP_SYST 108; BP_DIAS 53; BP_DIAS 61
--- NOTE | 2020-07-23 12:03 | Pulmonology Progress Note ---
Subjective ROS Limited/Unobtainable: Yes Constitutional: Denies: fever Allergies: Coded Allergies: No Known Allergies (Unverified , 11/02/19) All Systems: reviewed and negative except above Subjective CARE NOTED nonverbal on oxygen issues with suctioning overall stable anemia noted and needs transfusion Objective Last 24 Hour Vital Signs Date Time Temp Pulse Resp B/P (MAP) Pulse Ox O2 Delivery O2 Flow Rate FiO2 07/23/20 09:12 104 134/67 07/23/20 09:00 Trach Collar 10.0 07/23/20 08:00 99.2 104 24 134/67 (89) 96 07/23/20 08:00 90 07/23/20 04:00 98.6 93 22 127/68 (87) 97 07/23/20 04:00 93 07/23/20 00:00 91 07/23/20 00:00 97.5 91 22 110/75 (87) 95 07/22/20 21:10 99.4 07/22/20 21:00 Trach Collar 10.0 07/22/20 20:38 103 129/80 07/22/20 20:00 95 07/22/20 20:00 100.6 95 22 129/80 (96) 96 07/22/20 19:47 96 T-Piece 8.0 35 07/22/20 16:00 98.9 87 20 135/87 (103) 98 07/22/20 16:00 93 07/22/20 13:11 97 T-Piece 8.0 35 Intake and Output 07/22/20 07/23/20 19:00 07:00 Intake Total 75 ml 1510 ml Output Total 1200 ml 600 ml Balance -1125 ml 910 ml Intake Free Water 100 ml IV Total 75 ml 750 ml Tube Feeding 660 ml Output Urine Total 1200 ml 600 ml # Voids 3 Objective WDWN NAD chronically ill moderate breath sounds bilaterally without rhonchi or wheeze [id number] NABS nontender GT no CCE nonfocal poorly responsive Laboratory Tests 07/22/20 17:55: Random Vancomycin Level 23.9 07/23/20 04:22: Random Vancomycin Level 23.2, White Blood Count 7.7, Red Blood Count 2.80L, Hemoglobin 7.7L, Hematocrit 24.9L, Mean Corpuscular Volume 89, Mean Corpuscular Hemoglobin 27.6, Mean Corpuscular Hemoglobin Concent 31.0L, Red Cell Distribution Width 18.1H, Platelet Count 283, Mean Platelet Volume 5.9L, Neutrophils (%) (Auto) , Lymphocytes (%) (Auto) , Monocytes (%) (Auto) , Eosinophils (%) (Auto) , Basophils (%) (Auto) , Differential Total Cells Counted 100, Neutrophils % (Manual) 76H, Lymphocytes % (Manual) 16L, Monocytes % (Manual) 4, Eosinophils % (Manual) 4H, Basophils % (Manual) 0, Band Neutrophils 0, Platelet Estimate Adequate, Platelet Morphology Normal, Hypochromasia 1+, Anisocytosis 1+, Sodium Level 141, Potassium Level 4.2, Chloride Level 108H, Carbon Dioxide Level 29, Anion Gap 4L, Blood Urea Nitrogen 28H, Creatinine 1.1, Estimat Glomerular Filtration Rate > 60, Glucose Level 100, Calcium Level 8.7, Total Bilirubin 0.2, Aspartate Amino Transf (AST/SGOT) 22, Alanine Aminotransferase (ALT/SGPT) 23, Alkaline Phosphatase 134H, Total Protein 6.0L, Albumin 0.9L, Globulin 5.1, Albumin/Globulin Ratio 0.2L Current Medications Medications (Trade) Dose Ordered Sig/Clive Route PRN Reason Start Time Stop Time Status Last Admin Dose Admin Acetaminophen (Tylenol) 650 mg Q4H PRN GT Temp >100.5 07/18/20 09:30 08/17/20 09:29 07/22/20 20:40 Acetaminophen (Tylenol) 650 mg Q4H PRN RECTAL Temp >100.5 07/14/20 13:30 08/13/20 13:29 Amiodarone HCl (Cordarone) 200 mg Q12HR GT 07/14/20 21:00 10/12/20 20:59 07/23/20 09:13 Ascorbic Acid (Vitamin C) 250 mg TWICE A DAY GT 07/16/20 18:00 08/15/20 17:59 07/23/20 09:12 Atorvastatin Calcium (Lipitor) 80 mg QHS ORAL 07/14/20 21:00 10/12/20 20:59 07/22/20 20:37 Carvedilol (Coreg) 6.25 mg EVERY 12 HOURS ORAL 07/15/20 09:00 08/14/20 08:59 07/23/20 09:12 Chlorhexidine Gluconate (Jennifer-Hex 2%) 1 applic DAILY@1999 TOPIC 07/17/20 20:00 10/15/20 19:59 07/22/20 20:37 Dextrose/Sodium Chloride 1,000 ml @ 75 mls/hr [id number] IV 07/14/20 17:30 08/13/20 17:29 07/23/20 09:32 Famotidine (Pepcid) 20 mg Q12HR GT 07/16/20 21:00 10/14/20 20:59 07/23/20 09:13 Finasteride (Proscar) 5 mg DAILY ORAL 07/15/20 09:00 10/13/20 08:59 07/23/20 09:13 Levetiracetam (Keppra) 1,000 mg Q12HR ORAL 07/14/20 21:00 08/13/20 20:59 07/23/20 09:13 Multivitamins (Multivitamins) 1 tab DAILY GT 07/17/20 09:00 08/16/20 08:59 07/23/20 09:13 Sodium Hypochlorite (Dakin's Half Strength) 1 applic DAILY TOPIC 07/16/20 13:00 08/15/20 12:59 07/23/20 09:13 Vancomycin HCl ([facility] pharmacy to dose) 1 ea DAILY PRN MISC Per rx protocol 07/16/20 11:30 08/15/20 11:29 Zinc Sulfate (Zinc Sulfate) 220 mg DAILY GT 07/17/20 09:00 07/27/20 08:59 07/23/20 09:13 Assessment/Plan Assessment/Plan Impression: Healthcare-associated pneumonia Acute respiratory failure with hypoxia Tracheostomy status Pleural effusion, left-recurrent Decubitus ulcers Urinary tract infection Anemia S/p previous Craniotomy, RCA occlusion, [employer] shunt Seizure history GERD, dysphagia s/p GJ tube h/o Hypertension h/o Atrial fibrillation Previous DVT and Pulmonary Embolism, Plan IV Antibiotics repeat transfusion monitor for change ID follow up J tube feeds as tolerated per gi O2 - needs noted nebs as needed 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
--- NOTE | 2020-07-23 12:40 | Surgery Progress Note ---
Surgery Progress Note Subjective Additional Comments Patient seen and examined bedside. No acute events. Resting comfortably. Labs noted. Exam stable. No complaints at this time. Imaging reviewed micro revi ewed afebrile hemodynamic stable Objective Last 24 Hour Vital Signs Date Time Temp Pulse Resp B/P (MAP) Pulse Ox O2 Delivery O2 Flow Rate FiO2 07/23/20 09:12 104 134/67 07/23/20 09:00 Trach Collar 10.0 07/23/20 08:00 99.2 104 24 134/67 (89) 96 07/23/20 08:00 90 07/23/20 04:00 98.6 93 22 127/68 (87) 97 07/23/20 04:00 93 07/23/20 00:00 91 07/23/20 00:00 97.5 91 22 110/75 (87) 95 07/22/20 21:10 99.4 07/22/20 21:00 Trach Collar 10.0 07/22/20 20:38 103 129/80 07/22/20 20:00 95 07/22/20 20:00 100.6 95 22 129/80 (96) 96 07/22/20 19:47 96 T-Piece 8.0 35 07/22/20 16:00 98.9 87 20 135/87 (103) 98 07/22/20 16:00 93 07/22/20 13:11 97 T-Piece 8.0 35 I&O Intake and Output 07/22/20 07/23/20 19:00 07:00 Intake Total 75 ml 1510 ml Output Total 1200 ml 600 ml Balance -1125 ml 910 ml Intake Free Water 100 ml IV Total 75 ml 750 ml Tube Feeding 660 ml Output Urine Total 1200 ml 600 ml # Voids 3 Dressing: saturated Cardiovascular: RSR Respiratory: decreased breath sounds, other Abdomen: soft, non-tender, present bowel sounds Extremities: no edema, no tenderness, no cyanosis Laboratory Tests Test 07/22/20 17:55 07/23/20 04:22 Random Vancomycin Level 23.9 ug/mL 23.2 ug/mL White Blood Count 7.7 K/UL (4.8-10.8) Red Blood Count 2.80 M/UL (4.70-6.10) L Hemoglobin 7.7 G/DL (14.2-18.0) L Hematocrit 24.9 % (42.0-52.0) L Mean Corpuscular Volume 89 FL (80-99) Mean Corpuscular Hemoglobin 27.6 PG (27.0-31.0) Mean Corpuscular Hemoglobin Concent 31.0 G/DL (32.0-36.0) L Red Cell Distribution Width 18.1 % (11.6-14.8) H Platelet Count 283 K/UL (150-450) Mean Platelet Volume 5.9 FL (6.5-10.1) L Neutrophils (%) (Auto) % (45.0-75.0) Lymphocytes (%) (Auto) % (20.0-45.0) Monocytes (%) (Auto) % (1.0-10.0) Eosinophils (%) (Auto) % (0.0-3.0) Basophils (%) (Auto) % (0.0-2.0) Differential Total Cells Counted 100 Neutrophils % (Manual) 76 % (45-75) H Lymphocytes % (Manual) 16 % (20-45) L Monocytes % (Manual) 4 % (1-10) Eosinophils % (Manual) 4 % (0-3) H Basophils % (Manual) 0 % (0-2) Band Neutrophils 0 % (0-8) Platelet Estimate Adequate Platelet Morphology Normal Hypochromasia 1+ Anisocytosis 1+ Sodium Level 141 MMOL/L (136-145) Potassium Level 4.2 MMOL/L (3.5-5.1) Chloride Level 108 MMOL/L (98-107) H Carbon Dioxide Level 29 MMOL/L (21-32) Anion Gap 4 mmol/L (5-15) L Blood Urea Nitrogen 28 mg/dL (7-18) H Creatinine 1.1 MG/DL (0.55-1.30) Estimat Glomerular Filtration Rate > 60 mL/min (>60) Glucose Level 100 MG/DL (74-106) Calcium Level 8.7 MG/DL (8.5-10.1) Total Bilirubin 0.2 MG/DL (0.2-1.0) Aspartate Amino Transf (AST/SGOT) 22 U/L (15-37) Alanine Aminotransferase (ALT/SGPT) 23 U/L (12-78) Alkaline Phosphatase 134 U/L (46-116) H Total Protein 6.0 G/DL (6.4-8.2) L Albumin 0.9 G/DL (3.4-5.0) L Globulin 5.1 g/dL Albumin/Globulin Ratio 0.2 (1.0-2.7) L Plan Problems: (1) Decubitus skin ulcer Assessment & Plan: Pt presented on admission with PV shunt,Tracheostomy, Contractures and multiple Pressure Injuries.Skin assessed under tracheal collar. Skin is erythematous but without any open wounds. GT site is red and excoriated.Scattered senile purpuras bilat upper extremities. Full thickness Sacral Pressure Injury(L)11.8cm x (W)8cm. Base of wound is 75% mixed necrosis and slough,20% antonio. Bone is palpable at base. Edges are macerated. Mild odor noted. Small amt brown exudate noted. Periwound is indurated and maroon with additional erythema and scattered Partial thickness shearing. Full Thickness Pressure Injury L trochanteric with undermined borders.(L)5cm x (W)7cm x (D)2.6cm, undermining clockwise 11-2 by 4.2cm @11o'clock. Base of wound is 75%% mixed necrosis and slough,25% antonio. Wound has appearance of two wounds secondary necrotic bridge.In addition, periwound at clockwise 10-2o'clock the base is necrotic and fluctuant with marginal erythema. Small amt malodorous haemopurulent exudate noted. Full thickness Pressure Injury L Ischium(L)3.5cm x (W)2.0cm. Base of wound is 80% slough,20% antonio. Surrounding necrotic borders that are fluctuant.Small amt sanguineous exudate. Mild odor noted. Full thickness Pressure Injury lateral L Tibia to L lateral Malleolus(L)24.5cm x (W)3.5cm. Base of wound is antonio with scattered necrosis and slough, tendon exposure. Semi-detached borders that indurated and macerated with an area of soft necrosis at proximal borders of wound. Small amt haemopurulent exudate noted. No odor noted. Full thickness Pressure Injury L Heel(L)10.3cm x (W)7.5cm. Base of wound is 60% necrotic,10% slough,30% antonio. Bone is palpable. Borders are indurated with a portion of borders rolled giving heel a shaved appearance. Moderate amt haemopurulent exudate. Mild odor noted.Periwound is purpuric and fluctuant. Full thickness Pressure Injury medial/lateral L foot(L)3.5cm x (W)3.5cm x (D)0.3cm. Base of wound is antonio. Borders and periwound are purpuric and fluctuant.Small amt sanguineous exudate noted. Unstageable Pressure Injury Distal/Lateral L foot(L)2.7cm x (W)4.3cm. Base of wound is 80% soft necrosis,20% antonio. Edges are adherent to base of wound. Periwound is purpuric and fluctuant. Full thickness Pressure Injury R heel Plantar(L)8.5cm x (W)9cm. Base of pressure with scattered necrosis and slough,otherwise base of wound is antonio. Edges are macerated with surrounding necrosis. Small amt seropurulent exudate noted.Mild odor noted. Stable dry eschar dorsal R foot1.5cm x (W)1cm. Edges are adherent to base of wound. No erythema,induration or fluctuance periwound. Stable dry eschar distal/lateral R foot (L)0.8cm x (W)0.8cm. NO erythema,induration or fluctuance periwound. R foot is edematous. Tx.Plan: Cleanse Sacral wound with Dakin's Kristel 0.25%. Apply Dakin's moistened k erlix to wound. Apply Triad periwound. Cover with Optifoam drsg. Change Daily and prn. Cleanse L trochanteric Wound with Dakin's Kristel 0.25%. Loosely pack with Dakin's moistened Kerlix, Apply Moisture Barrier Periwound. Cover with Optifoam drsg Daily and prn. Cleanse R Ischial wound with Dakin's Kristel 0.25%. Apply Dakin's moistened gauze to wound. Apply Moisture Barrier Paste periwound. Cover with Optifoam drsg Daily and prn. Cleanse wounds Lateral R lower extremity, R Heel and Lateral R foot with Dakin's Kristel 0.25%. Place Dakin's Moistened gauze to wounds. Apply Triad Paste along edges of wound. Cover wounds with ABD Pads. Wrap with Kerlix from Base of toes. Cleanse wound R heel with Dakin's Kristel 0.25%. Apply Dakin's moistened Gauze to wound. Apply Triad Periwound. Cover with ABD PAd and wrap with Kerlix. Swab dry Eschar dorsal and Lateral aspect of R foot .Cover with Abd Pads and Wrap with Kerlix Daily and prn. Wash GT site with Soap and water. Apply Triad Paste Daily and prn(Leave Open to Air) Reposition at least every 2hours or as tolerated. Place Pillow Between Knees. Off-Load Heels with Pillow. APM/TERRIE Mattress overlay. (2) Anemia Assessment & Plan: trend h/h prbc prn (3) UTI (urinary tract infection) (4) Pleural effusion, left Assessment & Plan: Lungs: Hazy left lung attenuation could be due to consolidation, pulmonary edema; correlate with presentation. Retrocardiac atelectasis without or with consolidation. Pleural space: Small-moderate left pleural effusion with passive atelectasis. No pneumothorax. Heart: Unremarkable. No cardiomegaly. Mediastinum: Unremarkable. Bones/joints: No acute abnormality Tubes, lines and devices: Tracheostomy. Right upper extremity PICC tip in the mid SVC. IMPRESSION: 1. Tracheostomy. 2. Right upper extremity PICC tip in the mid SVC. 3. Small-moderate left pleural effusion with passive atelectasis. 4. Hazy left lung attenuation could be due to consolidation, pulmonary edema; correlate with presentation. 5. Retrocardiac atelectasis without or with consolidation. 6. Recommend CT chest with IV contrast to further characterize these findings. (5) Malfunction of gastrostomy tube Assessment & Plan: DAILY ESTIMATED NEEDS: Needs based on Wounds, pulmonary/ 74.5kg 25-30 kcals/kg 8673-4800 total kcals 1.5-2 g protein/kg 111-149 g total protein 25-30 mL/kg 1764-9217 total fluid mLs NUTRITION DIAGNOSIS: * Swallowing difficulty R/T dysphagia, h/o craniotomy, respiratory failure as evidenced by pt on T-collar, GJ tube dependent. * Increased kcal/prot/micronutrients needs R/T wound healing as evidenced by pt admitted w/ multiple advanced wounds at sacrum, BL heels, Lt leg, pending evaluation. CURRENT TF:Jevity 1.2 @ 60ml/hr x 24 hrs ENTERAL NUTRITION RECOMMENDATIONS: Jevity 1.2 @ 65ml/hr x 24 hrs + Prosource 1pkt TID to provide 1560ml, 1872kcal, 86g+ 33g prot, 1259ml free water * Increase goal rate to 65ml/hr x 24 hrs to better meet est needs * Add Prosource 1pkt TID to meet increased protein needs (33g additional protein) * HOB over 30 degrees/ water flush 150ml q 6hrs without IVF ADDITIONAL RECOMMENDATIONS: * Calibrated bedscale wt * Wound Care: add Vit C 500mg BID, ZnSO4 220mg QD x 10 days Stevie BID * Monitor BGs, need for carb controlled TF * Monitor lytes, replete as needed (6) Acute respiratory failure with hypoxia (7) HCAP (healthcare-associated pneumonia) Dney Westfall Jul 23, 2020 12:40
[2020-07-23] MEDS: Acetaminophen 650mg/20.3ml GT PRN (15:14)
--- NOTE | 2020-07-23 15:55 | NUR ---
NURSE NOTES: 1 unit PRBC transfusion started, monitoring for adverse reactions.
[2020-07-23 16:00] VITALS: BP 108/53
--- NOTE | 2020-07-23 16:00 | NUR ---
CASE MANAGEMENT:REVIEW 07/23/20 SI: PNA. UTI. BACTEREMIA. UGIB 99.2 104 24 134/67 97% ON 8L/35% VIA TRACH COLLAR H/H-7.7/24.9 IS: IVF@75/HR COREG GT Q12 KEPPRA GT Q12 AMIODARONE GT Q12 ZINC GT QD : TELEMETRY STATUS DCP: FROM HOME PLAN: TRANSFUSE PRBC'S PLAN: EGD TODAY
--- NOTE | 2020-07-23 16:28 | Infectious Diseases Prog Note ---
Assessment/Plan Assessment/Plan antibiotics : vancomycin iv, cefepime A 1. aspiration pneumonia. COVID19 test is negative. 2. coag neg staph line sepsis 3. Hypertension. 4. Atrial fibrillation. 5. anemia 6. respiratory failure S/p tracheostomy 7. Left pleural effusion P 1. d/c cefepime 2. continue iv vancomycin 2 more days 3. will follow up cultures Subjective ROS Limited/Unobtainable: Yes Allergies: Coded Allergies: No Known Allergies (Unverified , 11/02/19) Objective Last 24 Hour Vital Signs Date Time Temp Pulse Resp B/P (MAP) Pulse Ox O2 Delivery O2 Flow Rate FiO2 07/23/20 12:30 96 T-Piece 8.0 35 07/23/20 12:00 89 07/23/20 12:00 99.1 93 24 106/61 (76) 99 07/23/20 09:12 104 134/67 07/23/20 09:00 Trach Collar 10.0 07/23/20 08:40 97 T-Piece 8.0 35 07/23/20 08:00 99.2 104 24 134/67 (89) 96 07/23/20 08:00 90 07/23/20 04:00 98.6 93 22 127/68 (87) 97 07/23/20 04:00 93 07/23/20 00:00 91 07/23/20 00:00 97.5 91 22 110/75 (87) 95 07/22/20 21:10 99.4 07/22/20 21:00 Trach Collar 10.0 07/22/20 20:38 103 129/80 07/22/20 20:00 95 07/22/20 20:00 100.6 95 22 129/80 (96) 96 07/22/20 19:47 96 T-Piece 8.0 35 Height (Feet): 5 Height (Inches): 4.00 Weight (Pounds): 171 HEENT: status post trach Respiratory/Chest: rhonchi - bilaterally Cardiovascular: normal rate, regular rhythm, no gallop/murmur Abdomen: soft, non tender, other - GT Extremities: no edema Laboratory Tests Test 07/22/20 17:55 07/23/20 04:22 Random Vancomycin Level 23.9 ug/mL 23.2 ug/mL White Blood Count 7.7 K/UL (4.8-10.8) Red Blood Count 2.80 M/UL (4.70-6.10) L Hemoglobin 7.7 G/DL (14.2-18.0) L Hematocrit 24.9 % (42.0-52.0) L Mean Corpuscular Volume 89 FL (80-99) Mean Corpuscular Hemoglobin 27.6 PG (27.0-31.0) Mean Corpuscular Hemoglobin Concent 31.0 G/DL (32.0-36.0) L Red Cell Distribution Width 18.1 % (11.6-14.8) H Platelet Count 283 K/UL (150-450) Mean Platelet Volume 5.9 FL (6.5-10.1) L Neutrophils (%) (Auto) % (45.0-75.0) Lymphocytes (%) (Auto) % (20.0-45.0) Monocytes (%) (Auto) % (1.0-10.0) Eosinophils (%) (Auto) % (0.0-3.0) Basophils (%) (Auto) % (0.0-2.0) Differential Total Cells Counted 100 Neutrophils % (Manual) 76 % (45-75) H Lymphocytes % (Manual) 16 % (20-45) L Monocytes % (Manual) 4 % (1-10) Eosinophils % (Manual) 4 % (0-3) H Basophils % (Manual) 0 % (0-2) Band Neutrophils 0 % (0-8) Platelet Estimate Adequate Platelet Morphology Normal Hypochromasia 1+ Anisocytosis 1+ Sodium Level 141 MMOL/L (136-145) Potassium Level 4.2 MMOL/L (3.5-5.1) Chloride Level 108 MMOL/L (98-107) H Carbon Dioxide Level 29 MMOL/L (21-32) Anion Gap 4 mmol/L (5-15) L Blood Urea Nitrogen 28 mg/dL (7-18) H Creatinine 1.1 MG/DL (0.55-1.30) Estimat Glomerular Filtration Rate > 60 mL/min (>60) Glucose Level 100 MG/DL (74-106) Calcium Level 8.7 MG/DL (8.5-10.1) Total Bilirubin 0.2 MG/DL (0.2-1.0) Aspartate Amino Transf (AST/SGOT) 22 U/L (15-37) Alanine Aminotransferase (ALT/SGPT) 23 U/L (12-78) Alkaline Phosphatase 134 U/L (46-116) H Total Protein 6.0 G/DL (6.4-8.2) L Albumin 0.9 G/DL (3.4-5.0) L Globulin 5.1 g/dL Albumin/Globulin Ratio 0.2 (1.0-2.7) L Current Medications Medications (Trade) Dose Ordered Sig/Clive Route PRN Reason Start Time Stop Time Status Last Admin Dose Admin Acetaminophen (Tylenol) 650 mg Q4H PRN GT Temp >100.5 07/18/20 09:30 08/17/20 09:29 07/23/20 15:14 Acetaminophen (Tylenol) 650 mg Q4H PRN RECTAL Temp >100.5 07/14/20 13:30 08/13/20 13:29 Amiodarone HCl (Cordarone) 200 mg Q12HR GT 07/14/20 21:00 10/12/20 20:59 07/23/20 09:13 Ascorbic Acid (Vitamin C) 250 mg TWICE A DAY GT 07/16/20 18:00 08/15/20 17:59 07/23/20 09:12 Atorvastatin Calcium (Lipitor) 80 mg QHS ORAL 07/14/20 21:00 10/12/20 20:59 07/22/20 20:37 Carvedilol (Coreg) 6.25 mg EVERY 12 HOURS ORAL 07/15/20 09:00 08/14/20 08:59 07/23/20 09:12 Chlorhexidine Gluconate (Jennifer-Hex 2%) 1 applic DAILY@1999 TOPIC 07/17/20 20:00 10/15/20 19:59 07/22/20 20:37 Dextrose/Sodium Chloride 1,000 ml @ 75 mls/hr [id number] IV 07/14/20 17:30 08/13/20 17:29 07/23/20 09:32 Famotidine (Pepcid) 20 mg Q12HR GT 07/16/20 21:00 10/14/20 20:59 07/23/20 09:13 Finasteride (Proscar) 5 mg DAILY ORAL 07/15/20 09:00 10/13/20 08:59 07/23/20 09:13 Levetiracetam (Keppra) 1,000 mg Q12HR ORAL 07/14/20 21:00 08/13/20 20:59 07/23/20 09:13 Multivitamins (Multivitamins) 1 tab DAILY GT 07/17/20 09:00 08/16/20 08:59 07/23/20 09:13 Sodium Hypochlorite (Dakin's Half Strength) 1 applic DAILY TOPIC 07/16/20 13:00 08/15/20 12:59 07/23/20 09:13 Vancomycin HCl ([facility] pharmacy to dose) 1 ea DAILY PRN MISC Per rx protocol 07/16/20 11:30 08/15/20 11:29 Zinc Sulfate (Zinc Sulfate) 220 mg DAILY GT 07/17/20 09:00 07/27/20 08:59 07/23/20 09:13 Kristie Reina MD Jul 23, 2020 16:28
--- NOTE | 2020-07-23 18:45 | NUR ---
NURSE NOTES: BT ended. VS: 98F, 90 ID, 111/65 BP.
--- NOTE | 2020-07-23 19:53 | NUR ---
NURSE HAND-OFF REPORT: Important Events on Shift:post 1 unit PRBC Patient Status: obtunded Diet: glucerna 1.2 x 60 cc/hr Pending Orders: Pending Results/Labs: Pending MD notification: Latest Vital Signs: Temperature 99.4 , Pulse 89 , B/P 108 /53 , Respiratory Rate 20 , O2 SAT 100 , Trach Collar, O2 Flow Rate 8.0 . Vital Sign Comment: EKG Rhythm: Sinus Rhythm Rhythm change?: N Notified?: N -Dr. Aubree VALDEZ Response: Message left await call Latest Ramirez Fall Score: 50 Fall Risk: High Risk Safety Measures: Call light Within Reach, Bed Alarm Zone 1, Side Rails Side Rails x2, Bed position Low and Locked. Fall Precautions: Yellow Socks Yellow Gown Patient Fall Education Report given to Ronit SMALLWOOD.
--- NOTE | 2020-07-23 19:53 | NUR ---
NURSE HAND-OFF REPORT: Important Events on Shift: Post 1 Patient Status: [] Diet: [] Pending Orders: [] Pending Results/Labs:[] Pending MD notification:[] Latest Vital Signs: Temperature 99.4 , Pulse 89 , B/P 108 /53 , Respiratory Rate 20 , O2 SAT 100 , Trach Collar, O2 Flow Rate 8.0 . Vital Sign Comment: [] EKG Rhythm: Sinus Rhythm Rhythm change?: N MD Notified?: N -Dr. Aubree VALDEZ Response: Message left await call Latest Ramirez Fall Score: 50 Fall Risk: High Risk Safety Measures: Call light Within Reach, Bed Alarm Zone 1, Side Rails Side Rails x2, Bed position Low and Locked. Fall Precautions: Yellow Socks Yellow Gown Patient Fall Education Report given to [].
[2020-07-23 20:00] VITALS: BP_SYST 113; BP_SYST 96; BP_DIAS 63; BP_DIAS 64
--- NOTE | 2020-07-23 20:16 | NUR ---
NURSE NOTES: Report received from SELIN Lal. Patient alert oriented x0 responsive to tactile stimuli. HOB elevated for aspiration precaution. On GTube feeding Glucerna 1.2 60ml continuous. Call light in reach. Bed at lowest position locked with side rails up. Will continue with plan of care.
--- NOTE | 2020-07-23 21:49 | General Progress Note ---
Subjective Allergies: Coded Allergies: No Known Allergies (Unverified , 11/02/19) Subjective Above noted no further bleeding overnight stools brown Objective Last 24 Hour Vital Signs Date Time Temp Pulse Resp B/P (MAP) Pulse Ox O2 Delivery O2 Flow Rate FiO2 07/23/20 16:00 96 07/23/20 16:00 99.4 89 20 108/53 (71) 100 07/23/20 15:44 99.4 07/23/20 12:30 96 T-Piece 8.0 35 07/23/20 12:00 89 07/23/20 12:00 99.1 93 24 106/61 (76) 99 07/23/20 12:00 99.4 89 20 108/53 (71) 100 07/23/20 09:12 104 134/67 07/23/20 09:00 Trach Collar 10.0 07/23/20 08:40 97 T-Piece 8.0 35 07/23/20 08:00 99.2 104 24 134/67 (89) 96 07/23/20 08:00 90 07/23/20 04:00 98.6 93 22 127/68 (87) 97 07/23/20 04:00 93 07/23/20 00:00 91 07/23/20 00:00 97.5 91 22 110/75 (87) 95 Intake and Output 07/22/20 07/23/20 19:00 07:00 Intake Total 75 ml 1510 ml Output Total 1200 ml 600 ml Balance -1125 ml 910 ml Intake Free Water 100 ml IV Total 75 ml 750 ml Tube Feeding 660 ml Output Urine Total 1200 ml 600 ml # Voids 3 Laboratory Tests 07/23/20 04:22: White Blood Count 7.7, Red Blood Count 2.80L, Hemoglobin 7.7L, Hematocrit 24.9L, Mean Corpuscular Volume 89, Mean Corpuscular Hemoglobin 27.6, Mean Corpuscular Hemoglobin Concent 31.0L, Red Cell Distribution Width 18.1H, Platelet Count 283, Mean Platelet Volume 5.9L, Neutrophils (%) (Auto) , Lymphocytes (%) (Auto) , Monocytes (%) (Auto) , Eosinophils (%) (Auto) , Basophils (%) (Auto) , Differential Total Cells Counted 100, Neutrophils % (Manual) 76H, Lymphocytes % (Manual) 16L, Monocytes % (Manual) 4, Eosinophils % (Manual) 4H, Basophils % (Manual) 0, Band Neutrophils 0, Platelet Estimate Adequate, Platelet Morphology Normal, Hypochromasia 1+, Anisocytosis 1+, Sodium Level 141, Potassium Level 4.2, Chloride Level 108H, Carbon Dioxide Level 29, Anion Gap 4L, Blood Urea Nitrogen 28H, Creatinine 1.1, Estimat Glomerular Filtration Rate > 60, Glucose Level 100, Calcium Level 8.7, Total Bilirubin 0.2, Aspartate Amino Transf (AST/SGOT) 22, Alanine Aminotransferase (ALT/SGPT) 23, Alkaline Phosphatase 134H , Total Protein 6.0L, Albumin 0.9L, Globulin 5.1, Albumin/Globulin Ratio 0.2L, Random Vancomycin Level 23.2 Height (Feet): 5 Height (Inches): 4.00 Weight (Pounds): 171 Objective Eldely WM NCAT (+) trach , T tube Coarse BS RRR abd soft (+) GT ext no edema Assessment/Plan Status: stable, progressing Assessment/Plan: Assessment - UGIB - resolved - Anemia, s/p transfusion - h/o PUD - resp failure, s/p trach - dysphagia, s/p PEG - atrial fibrillation - h/o DVT - EGD: - mild duodenitis - 7-8 mm pre-pyloric polypoid nodule with slight erosion at base - biopsied - GT in appropriate position - no large ulcer or active bleeding Recommendations - resume anticoagulation - H2B BID indefinitely - TF - follow H&H - If recurrent bleeding --> colonoscopy Akiko Rai MD Jul 23, 2020 21:49
[2020-07-23] MEDS: Dyna-Hex 2% Top Sol 2oz TOPIC SCH (22:22)
[2020-07-23] MEDS: Atorvastatin 80mg tab ORAL SCH (22:28)
--- NOTE | 2020-07-23 23:18 | Neurology Progress Note ---
Interim History Interim History ROS Limited/Unobtainable: Yes Interim History remains in resp distress Objective Physical Exam Last Vital Signs Date Time Temp Pulse Resp B/P (MAP) Pulse Ox O2 Delivery O2 Flow Rate FiO2 07/23/20 22:27 65 122/78 07/23/20 19:36 98 T-Piece 8.0 35 07/23/20 16:00 99.4 20 Laboratory Tests Test 07/23/20 04:22 White Blood Count 7.7 K/UL (4.8-10.8) Red Blood Count 2.80 M/UL (4.70-6.10) L Hemoglobin 7.7 G/DL (14.2-18.0) L Hematocrit 24.9 % (42.0-52.0) L Mean Corpuscular Volume 89 FL (80-99) Mean Corpuscular Hemoglobin 27.6 PG (27.0-31.0) Mean Corpuscular Hemoglobin Concent 31.0 G/DL (32.0-36.0) L Red Cell Distribution Width 18.1 % (11.6-14.8) H Platelet Count 283 K/UL (150-450) Mean Platelet Volume 5.9 FL (6.5-10.1) L Neutrophils (%) (Auto) % (45.0-75.0) Lymphocytes (%) (Auto) % (20.0-45.0) Monocytes (%) (Auto) % (1.0-10.0) Eosinophils (%) (Auto) % (0.0-3.0) Basophils (%) (Auto) % (0.0-2.0) Differential Total Cells Counted 100 Neutrophils % (Manual) 76 % (45-75) H Lymphocytes % (Manual) 16 % (20-45) L Monocytes % (Manual) 4 % (1-10) Eosinophils % (Manual) 4 % (0-3) H Basophils % (Manual) 0 % (0-2) Band Neutrophils 0 % (0-8) Platelet Estimate Adequate Platelet Morphology Normal Hypochromasia 1+ Anisocytosis 1+ Sodium Level 141 MMOL/L (136-145) Potassium Level 4.2 MMOL/L (3.5-5.1) Chloride Level 108 MMOL/L (98-107) H Carbon Dioxide Level 29 MMOL/L (21-32) Anion Gap 4 mmol/L (5-15) L Blood Urea Nitrogen 28 mg/dL (7-18) H Creatinine 1.1 MG/DL (0.55-1.30) Estimat Glomerular Filtration Rate > 60 mL/min (>60) Glucose Level 100 MG/DL (74-106) Calcium Level 8.7 MG/DL (8.5-10.1) Total Bilirubin 0.2 MG/DL (0.2-1.0) Aspartate Amino Transf (AST/SGOT) 22 U/L (15-37) Alanine Aminotransferase (ALT/SGPT) 23 U/L (12-78) Alkaline Phosphatase 134 U/L (46-116) H Total Protein 6.0 G/DL (6.4-8.2) L Albumin 0.9 G/DL (3.4-5.0) L Globulin 5.1 g/dL Albumin/Globulin Ratio 0.2 (1.0-2.7) L Random Vancomycin Level 23.2 ug/mL Head: normocophalic Neck: no rigidity EENT: benign Neurologic Exam Objective lethargic, pupils reactive not following withdraws to pain Impression/Recommendations Problems: (1) Malfunction of gastrostomy tube (2) Anemia (3) Pleural effusion, left (4) Acute respiratory failure with hypoxia (5) HCAP (healthcare-associated pneumonia) (6) UTI (urinary tract infection) Status: stable, progressing Diagnostic Impression Recurrent sepsis Possible aspiration Encephalopathy, acute on chronic rule out seizures map > 65 ro covid cont atb fu cultures no need for AED now Gerson Singh MD Jul 23, 2020 23:18
[2020-07-24] VITALS: BP 128/69
[2020-07-24] MEDS: D5 1/2NS 1,000 ML IV SCH ×2 (00:35→12:28)
--- NOTE | 2020-07-24 01:22 | Cardiology Progress Note ---
Subjective DATE OF SERVICE: Jul 23, 2020 Withdrawn but alert with spontaneous eye movements. Monitor: Sinus arrhythmia with PAC's and paroxysms of AFib. Troponins now normalized Objective Last 24 Hour Vital Signs Date Time Temp Pulse Resp B/P (MAP) Pulse Ox O2 Delivery O2 Flow Rate FiO2 07/23/20 22:27 65 122/78 07/23/20 19:36 98 T-Piece 8.0 35 07/23/20 16:00 96 07/23/20 16:00 99.4 89 20 108/53 (71) 100 07/23/20 15:44 99.4 07/23/20 12:30 96 T-Piece 8.0 35 07/23/20 12:00 89 07/23/20 12:00 99.1 93 24 106/61 (76) 99 07/23/20 12:00 99.4 89 20 108/53 (71) 100 07/23/20 09:12 104 134/67 07/23/20 09:00 Trach Collar 10.0 07/23/20 08:40 97 T-Piece 8.0 35 07/23/20 08:00 99.2 104 24 134/67 (89) 96 07/23/20 08:00 90 07/23/20 04:00 98.6 93 22 127/68 (87) 97 07/23/20 04:00 93 ROS: unchanged from 07/14/20 HEENT: Thick Trach secretions RHYTHM: NSR, ST, PACs, Afib LUNGS: bilateral rhonchi CARDIAC: normal S1 and S2, rapid rate, arrhythmia ABDOMEN: normal bowel sounds, soft, G-Tube intact EXTREMITIES: normal range of motion, non-tender, trace edema, other - withdrawn Laboratory Tests Test 07/23/20 04:22 White Blood Count 7.7 K/UL (4.8-10.8) Red Blood Count 2.80 M/UL (4.70-6.10) L Hemoglobin 7.7 G/DL (14.2-18.0) L Hematocrit 24.9 % (42.0-52.0) L Mean Corpuscular Volume 89 FL (80-99) Mean Corpuscular Hemoglobin 27.6 PG (27.0-31.0) Mean Corpuscular Hemoglobin Concent 31.0 G/DL (32.0-36.0) L Red Cell Distribution Width 18.1 % (11.6-14.8) H Platelet Count 283 K/UL (150-450) Mean Platelet Volume 5.9 FL (6.5-10.1) L Neutrophils (%) (Auto) % (45.0-75.0) Lymphocytes (%) (Auto) % (20.0-45.0) Monocytes (%) (Auto) % (1.0-10.0) Eosinophils (%) (Auto) % (0.0-3.0) Basophils (%) (Auto) % (0.0-2.0) Differential Total Cells Counted 100 Neutrophils % (Manual) 76 % (45-75) H Lymphocytes % (Manual) 16 % (20-45) L Monocytes % (Manual) 4 % (1-10) Eosinophils % (Manual) 4 % (0-3) H Basophils % (Manual) 0 % (0-2) Band Neutrophils 0 % (0-8) Platelet Estimate Adequate Platelet Morphology Normal Hypochromasia 1+ Anisocytosis 1+ Sodium Level 141 MMOL/L (136-145) Potassium Level 4.2 MMOL/L (3.5-5.1) Chloride Level 108 MMOL/L (98-107) H Carbon Dioxide Level 29 MMOL/L (21-32) Anion Gap 4 mmol/L (5-15) L Blood Urea Nitrogen 28 mg/dL (7-18) H Creatinine 1.1 MG/DL (0.55-1.30) Estimat Glomerular Filtration Rate > 60 mL/min (>60) Glucose Level 100 MG/DL (74-106) Calcium Level 8.7 MG/DL (8.5-10.1) Total Bilirubin 0.2 MG/DL (0.2-1.0) Aspartate Amino Transf (AST/SGOT) 22 U/L (15-37) Alanine Aminotransferase (ALT/SGPT) 23 U/L (12-78) Alkaline Phosphatase 134 U/L (46-116) H Total Protein 6.0 G/DL (6.4-8.2) L Albumin 0.9 G/DL (3.4-5.0) L Globulin 5.1 g/dL Albumin/Globulin Ratio 0.2 (1.0-2.7) L Random Vancomycin Level 23.2 ug/mL Assessment/Plan Assessment/Plan Healthcare associated PNA Paroxysmal atrial fibrillation Paroxysmal atrial ectopy Hx 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 Dyslipidemia on high dose statin - dose adjusted Dehydration/hypernatremia Severe protein-calorie malnutrition Left pleural effusion Abx Resp support Cardiac monitoring Continue full anticoagulation Low dose statin Amiodarone at loading dose. Consider thorocentesis Dylan Mak MD Jul 24, 2020 01:22
[2020-07-24 04:00] VITALS: BP 114/65
[2020-07-24 07:15] LABS: BASOPHILS % (AUTO) 0.9 % (0.0-2.0); EOSINOPHILS % (AUTO) 4.4 % (0.0-3.0); HEMATOCRIT 27.7 % (42.0-52.0); HEMOGLOBIN 9.1 G/DL (14.2-18.0); LYMPHOCYTES % (AUTO) 11.5 % (20.0-45.0); MEAN CORPUSCULAR VOLUME 88 FL (80-99); MONOCYTES % (AUTO) 7.7 % (1.0-10.0); NEUTROPHILS % (AUTO) 75.4 % (45.0-75.0); PLATELET COUNT 274 K/UL (150-450); RED BLOOD COUNT 3.15 M/UL (4.70-6.10); RED CELL DISTRIBUTION WIDTH 17.9 % (11.6-14.8); WHITE BLOOD COUNT 7.7 K/UL (4.8-10.8)
[2020-07-24 07:34] LABS: ALANINE AMINOTRANSFERASE 23 U/L (12-78); ALBUMIN 0.9 G/DL (3.4-5.0); ALBUMIN/GLOBULIN RATIO 0.2 (1.0-2.7); ALKALINE PHOSPHATASE 167 U/L (46-116); ANION GAP 4 mmol/L (5-15); ASPARTATE AMINO TRANSFERASE 26 U/L (15-37); BILIRUBIN,TOTAL 0.3 MG/DL (0.2-1.0); BLOOD UREA NITROGEN 32 mg/dL (7-18); CALCIUM 8.6 MG/DL (8.5-10.1); CARBON DIOXIDE 28 MMOL/L (21-32); CHLORIDE 108 MMOL/L (98-107); CREATININE 1.1 MG/DL (0.55-1.30); POTASSIUM 4.5 MMOL/L (3.5-5.1); SODIUM 140 MMOL/L (136-145)
--- NOTE | 2020-07-24 07:59 | NUR ---
NURSE NOTES: Received report from Ronit Mo RN. Patient sitting HOB at 45 degrees, A&Ox0 (baseline), soft care mattress in place, [place] catheter in place, rectal tube in place, side rails up x 3, bed in lowest position, wheels locked, trach in place, oxygen at 10 L, G-tube in place running Glucerna 1.2@60cc/hour, side rails padded, in no apparent distress.
[2020-07-24 08:00] VITALS: BP 135/68
--- NOTE | 2020-07-24 08:23 | Pulmonology Progress Note ---
Subjective ROS Limited/Unobtainable: Yes Constitutional: Denies: fever Allergies: Coded Allergies: No Known Allergies (Unverified , 11/02/19) All Systems: reviewed and negative except above Subjective CARE NOTED nonverbal on oxygen no distress Objective Last 24 Hour Vital Signs Date Time Temp Pulse Resp B/P (MAP) Pulse Ox O2 Delivery O2 Flow Rate FiO2 07/24/20 07:10 95 T-Piece 8.0 35 07/24/20 04:00 90 07/24/20 04:00 98.7 93 16 114/65 (81) 95 07/24/20 01:31 97 T-Piece 8.0 35 07/24/20 00:00 86 07/24/20 00:00 98.0 88 22 128/69 (88) 98 07/23/20 22:27 65 122/78 07/23/20 21:00 Trach Collar 10.0 07/23/20 20:00 97.9 86 20 113/63 (80) 94 07/23/20 20:00 81 07/23/20 19:36 98 T-Piece 8.0 35 07/23/20 16:00 96 07/23/20 16:00 99.4 89 20 108/53 (71) 100 07/23/20 15:44 99.4 07/23/20 12:30 96 T-Piece 8.0 35 07/23/20 12:00 89 07/23/20 12:00 99.1 93 24 106/61 (76) 99 07/23/20 12:00 99.4 89 20 108/53 (71) 100 07/23/20 09:12 104 134/67 07/23/20 09:00 Trach Collar 10.0 07/23/20 08:40 97 T-Piece 8.0 35 Intake and Output 07/23/20 07/24/20 19:00 07:00 Output Total 2400 ml Balance -2400 ml Output Urine Total 1500 ml Stool Total 900 ml # Voids 1 1 # Bowel Movements 1 Objective WDWN NAD chronically ill moderate breath sounds bilaterally without rhonchi or wheeze [id number] NABS nontender GT no CCE nonfocal poorly responsive Laboratory Tests 07/24/20 05:00: White Blood Count 7.7, Red Blood Count 3.15L, Hemoglobin 9.1L, Hematocrit 27.7L, Mean Corpuscular Volume 88, Mean Corpuscular Hemoglobin 28.8, Mean Corpuscular Hemoglobin Concent 32.8, Red Cell Distribution Width 17.9H, Platelet Count 274, Mean Platelet Volume 5.8L, Neutrophils (%) (Auto) 75.4H, Lymphocytes (%) (Auto) 11.5L, Monocytes (%) (Auto) 7.7, Eosinophils (%) (Auto) 4.4H, Basophils (%) (Auto) 0.9, Sodium Level 140, Potassium Level 4.5, Chloride Level 108H, Carbon Dioxide Level 28, Anion Gap 4L, Blood Urea Nitrogen 32H, Creatinine 1.1, Estimat Glomerular Filtration Rate > 60, Glucose Level 105, Calcium Level 8.6, Total Bilirubin 0.3, Aspartate Amino Transf (AST/SGOT) 26, Alanine Aminotransferase (ALT/SGPT) 23, Alkaline Phosphatase 167H, Total Protein 6.2L, Albumin 0.9L, Antonia bulin 5.3, Albumin/Globulin Ratio 0.2L Current Medications Medications (Trade) Dose Ordered Sig/Clive Route PRN Reason Start Time Stop Time Status Last Admin Dose Admin Acetaminophen (Tylenol) 650 mg Q4H PRN GT Temp >100.5 07/18/20 09:30 08/17/20 09:29 07/23/20 15:14 Acetaminophen (Tylenol) 650 mg Q4H PRN RECTAL Temp >100.5 07/14/20 13:30 08/13/20 13:29 Amiodarone HCl (Cordarone) 200 mg Q12HR GT 07/14/20 21:00 10/12/20 20:59 07/23/20 22:22 Ascorbic Acid (Vitamin C) 250 mg TWICE A DAY GT 07/16/20 18:00 08/15/20 17:59 07/23/20 18:03 Atorvastatin Calcium (Lipitor) 80 mg QHS ORAL 07/14/20 21:00 10/12/20 20:59 07/23/20 22:28 Carvedilol (Coreg) 6.25 mg EVERY 12 HOURS ORAL 07/15/20 09:00 08/14/20 08:59 07/23/20 22:27 Chlorhexidine Gluconate (Jennifer-Hex 2%) 1 applic DAILY@1999 TOPIC 07/17/20 20:00 10/15/20 19:59 07/23/20 22:22 Dextrose/Sodium Chloride 1,000 ml @ 75 mls/hr [id number] IV 07/14/20 17:30 08/13/20 17:29 07/24/20 00:35 Famotidine (Pepcid) 20 mg Q12HR GT 07/16/20 21:00 10/14/20 20:59 07/23/20 22:28 Finasteride (Proscar) 5 mg DAILY ORAL 07/15/20 09:00 10/13/20 08:59 07/23/20 09:13 Levetiracetam (Keppra) 1,000 mg Q12HR ORAL 07/14/20 21:00 08/13/20 20:59 07/23/20 22:28 Multivitamins (Multivitamins) 1 tab DAILY GT 07/17/20 09:00 08/16/20 08:59 07/23/20 09:13 Sodium Hypochlorite (Dakin's Half Strength) 1 applic DAILY TOPIC 07/16/20 13:00 08/15/20 12:59 07/23/20 09:13 Vancomycin HCl ([facility] pharmacy to dose) 1 ea DAILY PRN MISC Per rx protocol 07/16/20 11:30 08/15/20 11:29 Zinc Sulfate (Zinc Sulfate) 220 mg DAILY GT 07/17/20 09:00 07/27/20 08:59 07/23/20 09:13 Assessment/Plan Assessment/Plan Impression: Healthcare-associated pneumonia Acute respiratory failure with hypoxia Tracheostomy status Pleural effusion, left-recurrent Decubitus ulcers Urinary tract infection Anemia S/p previous Craniotomy, 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 impression, plan, and exam edited and reviewed in detail care discussed with Nikita Arreola MD Jul 24, 2020 08:23
--- NOTE | 2020-07-24 09:02 | Neurology Progress Note ---
Interim History Interim History ROS Limited/Unobtainable: Yes Interim History remains lethargic, no seizures Objective Physical Exam Last Vital Signs Date Time Temp Pulse Resp B/P (MAP) Pulse Ox O2 Delivery O2 Flow Rate FiO2 07/24/20 07:10 95 T-Piece 8.0 35 07/24/20 04:00 90 07/24/20 04:00 98.7 16 114/65 (81) Laboratory Tests Test 07/24/20 05:00 White Blood Count 7.7 K/UL (4.8-10.8) Red Blood Count 3.15 M/UL (4.70-6.10) L Hemoglobin 9.1 G/DL (14.2-18.0) L Hematocrit 27.7 % (42.0-52.0) L Mean Corpuscular Volume 88 FL (80-99) Mean Corpuscular Hemoglobin 28.8 PG (27.0-31.0) Mean Corpuscular Hemoglobin Concent 32.8 G/DL (32.0-36.0) Red Cell Distribution Width 17.9 % (11.6-14.8) H Platelet Count 274 K/UL (150-450) Mean Platelet Volume 5.8 FL (6.5-10.1) L Neutrophils (%) (Auto) 75.4 % (45.0-75.0) H Lymphocytes (%) (Auto) 11.5 % (20.0-45.0) L Monocytes (%) (Auto) 7.7 % (1.0-10.0) Eosinophils (%) (Auto) 4.4 % (0.0-3.0) H Basophils (%) (Auto) 0.9 % (0.0-2.0) Sodium Level 140 MMOL/L (136-145) Potassium Level 4.5 MMOL/L (3.5-5.1) Chloride Level 108 MMOL/L (98-107) H Carbon Dioxide Level 28 MMOL/L (21-32) Anion Gap 4 mmol/L (5-15) L Blood Urea Nitrogen 32 mg/dL (7-18) H Creatinine 1.1 MG/DL (0.55-1.30) Estimat Glomerular Filtration Rate > 60 mL/min (>60) Glucose Level 105 MG/DL (74-106) Calcium Level 8.6 MG/DL (8.5-10.1) Total Bilirubin 0.3 MG/DL (0.2-1.0) Aspartate Amino Transf (AST/SGOT) 26 U/L (15-37) Alanine Aminotransferase (ALT/SGPT) 23 U/L (12-78) Alkaline Phosphatase 167 U/L (46-116) H Total Protein 6.2 G/DL (6.4-8.2) L Albumin 0.9 G/DL (3.4-5.0) L Globulin 5.3 g/dL Albumin/Globulin Ratio 0.2 (1.0-2.7) L Head: normocophalic Neck: no rigidity EENT: benign Neurologic Exam Objective lethargic, pupils reactive not following withdraws to pain Impression/Recommendations Problems: (1) Malfunction of gastrostomy tube (2) Anemia (3) Pleural effusion, left (4) Acute respiratory failure with hypoxia (5) HCAP (healthcare-associated pneumonia) (6) UTI (urinary tract infection) Status: stable, progressing Diagnostic Impression Recurrent sepsis Possible aspiration Encephalopathy, acute on chronic rule out seizures map > 65 ro covid cont atb fu cultures no need for AED now Gerson Singh MD Jul 24, 2020 09:02
--- NOTE | 2020-07-24 09:22 | NUR ---
RD ASSESSMENT & RECOMMENDATIONS SEE CARE ACTIVITY FOR COMPLETE ASSESSMENT DAILY ESTIMATED NEEDS: Needs based on Wounds, pulmonary/ 74.5kg 25-30 kcals/kg 3192-1596 total kcals 1.5-2 g protein/kg 111-149 g total protein 25-30 mL/kg 2249-5737 total fluid mLs NUTRITION DIAGNOSIS: * Swallowing difficulty R/T dysphagia, h/o craniotomy, respiratory failure as evidenced by pt on T-collar, GJ tube dependent. * Increased kcal/prot/micronutrients needs R/T wound healing as evidenced by pt admitted w/ multiple advanced wounds at sacrum, BL heels, Lt leg, pending evaluation. CURRENT TF:Jevity 1.2 @ 60ml/hr x 24 hrs-> now Glucerna 1.2 ENTERAL NUTRITION RECOMMENDATIONS: Jevity 1.2 @ 65ml/hr x 24 hrs + Prosource 1pkt TID to provide 1560ml, 1872kcal, 86g+ 33g prot, 1259ml free water * Increase goal rate to 65ml/hr x 24 hrs to better meet est needs * Add Prosource 1pkt TID to meet increased protein needs * HOB over 30 degrees/ water flush 150ml q 6hrs without IVF ADDITIONAL RECOMMENDATIONS: * Calibrated bedscale wt * Wound Care: add Vit C 500mg BID, ZnSO4 220mg QD x 10 days Stevie BID * Monitor BGs, need for carb controlled TF * Monitor lytes, replete as needed
[2020-07-24] MEDS: Zinc Sulfate 220mg GT SCH (09:57)
[2020-07-24] MEDS: Carvedilol 6.25mg Tab ORAL SCH ×2 (09:57→20:22)
[2020-07-24] MEDS: Ascorbic Acid 500mg tab GT SCH ×2 (09:57→18:50)
[2020-07-24] MEDS: Amiodarone 200mg tab GT SCH ×2 (09:58→18:49)
[2020-07-24] MEDS: Dakin's 0.25% (Half Strength) 16oz TOPIC SCH (09:58)
[2020-07-24] MEDS: Acetaminophen 650mg/20.3ml GT PRN (10:12)
--- NOTE | 2020-07-24 11:27 | Infectious Diseases Prog Note ---
Assessment/Plan Assessment/Plan A: 1. Possible aspiration pneumonia. COVID19 test is negative. 2. Urinary tract infection. 3. Hypertension. 4. Atrial fibrillation. 5. anemia 6. S/p tracheostomy 7. s/p GT 8. Left pleural effusion 9. Bacteremia with Staph epidermidis 10. ? PICC line infection 11. Left pleural effusion PLAN: 1. Continue Vancomycin X 1 day 3. Consider thoracentesis Subjective ROS Limited/Unobtainable: Yes Constitutional: Reports: fever, other - T=100.8 Allergies: Coded Allergies: No Known Allergies (Unverified , 11/02/19) Objective Last 24 Hour Vital Signs Date Time Temp Pulse Resp B/P (MAP) Pulse Ox O2 Delivery O2 Flow Rate FiO2 07/24/20 09:57 96 135/68 07/24/20 09:00 Trach Collar 10.0 07/24/20 08:00 96 07/24/20 08:00 100.8 96 20 135/68 (90) 95 07/24/20 07:10 95 T-Piece 8.0 35 07/24/20 04:00 90 07/24/20 04:00 98.7 93 16 114/65 (81) 95 07/24/20 01:31 97 T-Piece 8.0 35 07/24/20 00:00 86 07/24/20 00:00 98.0 88 22 128/69 (88) 98 07/23/20 22:27 65 122/78 07/23/20 21:00 Trach Collar 10.0 07/23/20 20:00 97.9 86 20 113/63 (80) 94 07/23/20 20:00 81 07/23/20 19:36 98 T-Piece 8.0 35 07/23/20 16:00 96 07/23/20 16:00 99.4 89 20 108/53 (71) 100 07/23/20 15:44 99.4 07/23/20 12:30 96 T-Piece 8.0 35 07/23/20 12:00 89 07/23/20 12:00 99.1 93 24 106/61 (76) 99 07/23/20 12:00 99.4 89 20 108/53 (71) 100 Height (Feet): 5 Height (Inches): 4.00 Weight (Pounds): 171 HEENT: status post trach Respiratory/Chest: rhonchi - bilaterally, other - on T bar Cardiovascular: normal rate Abdomen: soft, non tender, other - GT feeding Extremities: other - contracted legs Skin: ulcers, other - multiple pressure ulcers Neurologic/Psychiatric: aphasia Laboratory Tests Test 07/24/20 05:00 White Blood Count 7.7 K/UL (4.8-10.8) Red Blood Count 3.15 M/UL (4.70-6.10) L Hemoglobin 9.1 G/DL (14.2-18.0) L Hematocrit 27.7 % (42.0-52.0) L Mean Corpuscular Volume 88 FL (80-99) Mean Corpuscular Hemoglobin 28.8 PG (27.0-31.0) Mean Corpuscular Hemoglobin Concent 32.8 G/DL (32.0-36.0) Red Cell Distribution Width 17.9 % (11.6-14.8) H Platelet Count 274 K/UL (150-450) Mean Platelet Volume 5.8 FL (6.5-10.1) L Neutrophils (%) (Auto) 75.4 % (45.0-75.0) H Lymphocytes (%) (Auto) 11.5 % (20.0-45.0) L Monocytes (%) (Auto) 7.7 % (1.0-10.0) Eosinophils (%) (Auto) 4.4 % (0.0-3.0) H Basophils (%) (Auto) 0.9 % (0.0-2.0) Sodium Level 140 MMOL/L (136-145) Potassium Level 4.5 MMOL/L (3.5-5.1) Chloride Level 108 MMOL/L (98-107) H Carbon Dioxide Level 28 MMOL/L (21-32) Anion Gap 4 mmol/L (5-15) L Blood Urea Nitrogen 32 mg/dL (7-18) H Creatinine 1.1 MG/DL (0.55-1.30) Estimat Glomerular Filtration Rate > 60 mL/min (>60) Glucose Level 105 MG/DL (74-106) Calcium Level 8.6 MG/DL (8.5-10.1) Total Bilirubin 0.3 MG/DL (0.2-1.0) Aspartate Amino Transf (AST/SGOT) 26 U/L (15-37) Alanine Aminotransferase (ALT/SGPT) 23 U/L (12-78) Alkaline Phosphatase 167 U/L (46-116) H Total Protein 6.2 G/DL (6.4-8.2) L Albumin 0.9 G/DL (3.4-5.0) L Globulin 5.3 g/dL Albumin/Globulin Ratio 0.2 (1.0-2.7) L Current Medications Medications (Trade) Dose Ordered Sig/Clive Route PRN Reason Start Time Stop Time Status Last Admin Dose Admin Acetaminophen (Tylenol) 650 mg Q4H PRN GT Temp >100.5 07/18/20 09:30 08/17/20 09:29 07/24/20 10:12 Acetaminophen (Tylenol) 650 mg Q4H PRN RECTAL Temp >100.5 07/14/20 13:30 08/13/20 13:29 Amiodarone HCl (Cordarone) 200 mg Q12HR GT 07/14/20 21:00 10/12/20 20:59 07/24/20 09:58 Ascorbic Acid (Vitamin C) 250 mg TWICE A DAY GT 07/16/20 18:00 08/15/20 17:59 07/24/20 09:57 Atorvastatin Calcium (Lipitor) 80 mg QHS ORAL 07/14/20 21:00 10/12/20 20:59 07/23/20 22:28 Carvedilol (Coreg) 6.25 mg EVERY 12 HOURS ORAL 07/15/20 09:00 08/14/20 08:59 07/24/20 09:57 Chlorhexidine Gluconate (Jennifer-Hex 2%) 1 applic DAILY@1999 TOPIC 07/17/20 20:00 10/15/20 19:59 07/23/20 22:22 Dextrose/Sodium Chloride 1,000 ml @ 75 mls/hr [id number] IV 07/14/20 17:30 08/13/20 17:29 07/24/20 00:35 Famotidine (Pepcid) 20 mg Q12HR GT 07/16/20 21:00 10/14/20 20:59 07/24/20 09:57 Finasteride (Proscar) 5 mg DAILY ORAL 07/15/20 09:00 10/13/20 08:59 07/24/20 09:58 Levetiracetam (Keppra) 1,000 mg Q12HR ORAL 07/14/20 21:00 08/13/20 20:59 07/24/20 09:58 Multivitamins (Multivitamins) 1 tab DAILY GT 07/17/20 09:00 08/16/20 08:59 07/24/20 09:57 Sodium Hypochlorite (Dakin's Half Strength) 1 applic DAILY TOPIC 07/16/20 13:00 08/15/20 12:59 07/24/20 09:58 Vancomycin HCl ([facility] pharmacy to dose) 1 ea DAILY PRN MISC Per rx protocol 07/16/20 11:30 08/15/20 11:29 Zinc Sulfate (Zinc Sulfate) 220 mg DAILY GT 07/17/20 09:00 07/27/20 08:59 07/24/20 09:57 Steve Nelson MD Jul 24, 2020 11:26
--- NOTE | 2020-07-24 11:29 | Cardiology Progress Note ---
Subjective DATE OF SERVICE: Jul 24, 2020 Withdrawn but alert with spontaneous eye movements. Monitor: Sinus arrhythmia with PAC's and paroxysms of AFib. Troponins now normalized CXR with large left pleural eff'n Objective Last 24 Hour Vital Signs Date Time Temp Pulse Resp B/P (MAP) Pulse Ox O2 Delivery O2 Flow Rate FiO2 07/24/20 09:57 96 135/68 07/24/20 09:00 Trach Collar 10.0 07/24/20 08:00 96 07/24/20 08:00 100.8 96 20 135/68 (90) 95 07/24/20 07:10 95 T-Piece 8.0 35 07/24/20 04:00 90 07/24/20 04:00 98.7 93 16 114/65 (81) 95 07/24/20 01:31 97 T-Piece 8.0 35 07/24/20 00:00 86 07/24/20 00:00 98.0 88 22 128/69 (88) 98 07/23/20 22:27 65 122/78 07/23/20 21:00 Trach Collar 10.0 07/23/20 20:00 97.9 86 20 113/63 (80) 94 07/23/20 20:00 81 07/23/20 19:36 98 T-Piece 8.0 35 07/23/20 16:00 96 07/23/20 16:00 99.4 89 20 108/53 (71) 100 07/23/20 15:44 99.4 07/23/20 12:30 96 T-Piece 8.0 35 07/23/20 12:00 89 07/23/20 12:00 99.1 93 24 106/61 (76) 99 07/23/20 12:00 99.4 89 20 108/53 (71) 100 ROS: unchanged from 07/14/20 HEENT: Thick Trach secretions RHYTHM: NSR, ST, PACs, Afib LUNGS: bilateral rhonchi, other - decreased BS left base CARDIAC: normal S1 and S2, rapid rate, arrhythmia ABDOMEN: normal bowel sounds, soft, G-Tube intact EXTREMITIES: normal range of motion, non-tender, trace edema, other - withdrawn Laboratory Tests Test 07/24/20 05:00 White Blood Count 7.7 K/UL (4.8-10.8) Red Blood Count 3.15 M/UL (4.70-6.10) L Hemoglobin 9.1 G/DL (14.2-18.0) L Hematocrit 27.7 % (42.0-52.0) L Mean Corpuscular Volume 88 FL (80-99) Mean Corpuscular Hemoglobin 28.8 PG (27.0-31.0) Mean Corpuscular Hemoglobin Concent 32.8 G/DL (32.0-36.0) Red Cell Distribution Width 17.9 % (11.6-14.8) H Platelet Count 274 K/UL (150-450) Mean Platelet Volume 5.8 FL (6.5-10.1) L Neutrophils (%) (Auto) 75.4 % (45.0-75.0) H Lymphocytes (%) (Auto) 11.5 % (20.0-45.0) L Monocytes (%) (Auto) 7.7 % (1.0-10.0) Eosinophils (%) (Auto) 4.4 % (0.0-3.0) H Basophils (%) (Auto) 0.9 % (0.0-2.0) Sodium Level 140 MMOL/L (136-145) Potassium Level 4.5 MMOL/L (3.5-5.1) Chloride Level 108 MMOL/L (98-107) H Carbon Dioxide Level 28 MMOL/L (21-32) Anion Gap 4 mmol/L (5-15) L Blood Urea Nitrogen 32 mg/dL (7-18) H Creatinine 1.1 MG/DL (0.55-1.30) Estimat Glomerular Filtration Rate > 60 mL/min (>60) Glucose Level 105 MG/DL (74-106) Calcium Level 8.6 MG/DL (8.5-10.1) Total Bilirubin 0.3 MG/DL (0.2-1.0) Aspartate Amino Transf (AST/SGOT) 26 U/L (15-37) Alanine Aminotransferase (ALT/SGPT) 23 U/L (12-78) Alkaline Phosphatase 167 U/L (46-116) H Total Protein 6.2 G/DL (6.4-8.2) L Albumin 0.9 G/DL (3.4-5.0) L Globulin 5.3 g/dL Albumin/Globulin Ratio 0.2 (1.0-2.7) L Assessment/Plan Assessment/Plan Healthcare associated PNA Paroxysmal atrial fibrillation Paroxysmal atrial ectopy 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 Dyslipidemia on high dose statin - now dose adjusted Dehydration/hypernatremia Severe protein-calorie malnutrition Left pleural effusion Abx Resp support Cardiac monitoring Continue full anticoagulation Statin dose adjusted Amiodarone at decreased to maint dose. Consider thorocentesis Dylan Mak MD Jul 24, 2020 11:29
--- NOTE | 2020-07-24 11:56 | Surgery Progress Note ---
Surgery Progress Note Subjective Symptoms: improved, tolerating diet, passing flatus, BM, pain decreased Objective Last 24 Hour Vital Signs Date Time Temp Pulse Resp B/P (MAP) Pulse Ox O2 Delivery O2 Flow Rate FiO2 07/24/20 09:57 96 135/68 07/24/20 09:00 Trach Collar 10.0 07/24/20 08:00 96 07/24/20 08:00 100.8 96 20 135/68 (90) 95 07/24/20 07:10 95 T-Piece 8.0 35 07/24/20 04:00 90 07/24/20 04:00 98.7 93 16 114/65 (81) 95 07/24/20 01:31 97 T-Piece 8.0 35 07/24/20 00:00 86 07/24/20 00:00 98.0 88 22 128/69 (88) 98 07/23/20 22:27 65 122/78 07/23/20 21:00 Trach Collar 10.0 07/23/20 20:00 97.9 86 20 113/63 (80) 94 07/23/20 20:00 81 07/23/20 19:36 98 T-Piece 8.0 35 07/23/20 16:00 96 07/23/20 16:00 99.4 89 20 108/53 (71) 100 07/23/20 15:44 99.4 07/23/20 12:30 96 T-Piece 8.0 35 07/23/20 12:00 89 07/23/20 12:00 99.1 93 24 106/61 (76) 99 07/23/20 12:00 99.4 89 20 108/53 (71) 100 I&O Intake and Output 07/23/20 07/24/20 19:00 07:00 Output Total 2400 ml Balance -2400 ml Output Urine Total 1500 ml Stool Total 900 ml # Voids 1 1 # Bowel Movements 1 Dressing: saturated Cardiovascular: RSR Respiratory: decreased breath sounds Abdomen: soft, non-tender, present bowel sounds, non-distended Extremities: no edema, no tenderness, no cyanosis Laboratory Tests Test 07/24/20 05:00 White Blood Count 7.7 K/UL (4.8-10.8) Red Blood Count 3.15 M/UL (4.70-6.10) L Hemoglobin 9.1 G/DL (14.2-18.0) L Hematocrit 27.7 % (42.0-52.0) L Mean Corpuscular Volume 88 FL (80-99) Mean Corpuscular Hemoglobin 28.8 PG (27.0-31.0) Mean Corpuscular Hemoglobin Concent 32.8 G/DL (32.0-36.0) Red Cell Distribution Width 17.9 % (11.6-14.8) H Platelet Count 274 K/UL (150-450) Mean Platelet Volume 5.8 FL (6.5-10.1) L Neutrophils (%) (Auto) 75.4 % (45.0-75.0) H Lymphocytes (%) (Auto) 11.5 % (20.0-45.0) L Monocytes (%) (Auto) 7.7 % (1.0-10.0) Eosinophils (%) (Auto) 4.4 % (0.0-3.0) H Basophils (%) (Auto) 0.9 % (0.0-2.0) Sodium Level 140 MMOL/L (136-145) Potassium Level 4.5 MMOL/L (3.5-5.1) Chloride Level 108 MMOL/L (98-107) H Carbon Dioxide Level 28 MMOL/L (21-32) Anion Gap 4 mmol/L (5-15) L Blood Urea Nitrogen 32 mg/dL (7-18) H Creatinine 1.1 MG/DL (0.55-1.30) Estimat Glomerular Filtration Rate > 60 mL/min (>60) Glucose Level 105 MG/DL (74-106) Calcium Level 8.6 MG/DL (8.5-10.1) Total Bilirubin 0.3 MG/DL (0.2-1.0) Aspartate Amino Transf (AST/SGOT) 26 U/L (15-37) Alanine Aminotransferase (ALT/SGPT) 23 U/L (12-78) Alkaline Phosphatase 167 U/L (46-116) H Total Protein 6.2 G/DL (6.4-8.2) L Albumin 0.9 G/DL (3.4-5.0) L Globulin 5.3 g/dL Albumin/Globulin Ratio 0.2 (1.0-2.7) L Plan Problems: (1) Decubitus skin ulcer Assessment & Plan: Pt presented on admission with PV shunt,Tracheostomy, Contractures and multiple Pressure Injuries.Skin assessed under tracheal collar. Skin is erythematous but without any open wounds. GT site is red and excoriated.Scattered senile purpuras bilat upper extremities. Full thickness Sacral Pressure Injury(L)11.8cm x (W)8cm. Base of wound is 75% mixed necrosis and slough,20% antonio. Bone is palpable at base. Edges are macerated. Mild odor noted. Small amt brown exudate noted. Periwound is indurated and maroon with additional erythema and scattered Partial thickness shearing. Full Thickness Pressure Injury L trochanteric with undermined borders.(L)5cm x (W)7cm x (D)2.6cm, undermining clockwise 11-2 by 4.2cm @11o'clock. Base of wound is 75%% mixed necrosis and slough,25% antonio. Wound has appearance of two wounds secondary necrotic bridge.In addition, periwound at clockwise 10-2o'clock the base is necrotic and fluctuant with marginal erythema. Small amt malodorous haemopurulent exudate noted. Full thickness Pressure Injury L Ischium(L)3.5cm x (W)2.0cm. Base of wound is 80% slough,20% antonio. Surrounding necrotic borders that are fluctuant.Small amt sanguineous exudate. Mild odor noted. Full thickness Pressure Injury lateral L Tibia to L lateral Malleolus(L)24.5cm x (W)3.5cm. Base of wound is antonio with scattered necrosis and slough, tendon exposure. Semi-detached borders that indurated and macerated with an area of soft necrosis at proximal borders of wound. Small amt haemopurulent exudate noted. No odor noted. Full thickness Pressure Injury L Heel(L)10.3cm x (W)7.5cm. Base of wound is 60% necrotic,10% slough,30% antonio. Bone is palpable. Borders are indurated with a portion of borders rolled giving heel a shaved appearance. Moderate amt haemopurulent exudate. Mild odor noted.Periwound is purpuric and fluctuant. Full thickness Pressure Injury medial/lateral L foot(L)3.5cm x (W)3.5cm x (D) 0.3cm. Base of wound is antonio. Borders and periwound are purpuric and fluctuant.Small amt sanguineous exudate noted. Unstageable Pressure Injury Distal/Lateral L foot(L)2.7cm x (W)4.3cm. Base of wound is 80% soft necrosis,20% antonio. Edges are adherent to base of wound. Periwound is purpuric and fluctuant. Full thickness Pressure Injury R heel Plantar(L)8.5cm x (W)9cm. Base of pressure with scattered necrosis and slough,otherwise base of wound is antonio. Edges are macerated with surrounding necrosis. Small amt seropurulent exudate noted.Mild odor noted. Stable dry eschar dorsal R foot1.5cm x (W)1cm. Edges are adherent to base of wound. No erythema,induration or fluctuance periwound. Stable dry eschar distal/lateral R foot (L)0.8cm x (W)0.8cm. NO erythema,indur ation or fluctuance periwound. R foot is edematous. Tx.Plan: Cleanse Sacral wound with Dakin's Kristel 0.25%. Apply Dakin's moistened kerlix to wound. Apply Triad periwound. Cover with Optifoam drsg. Change Daily and prn. Cleanse L trochanteric Wound with Dakin's Kristel 0.25%. Loosely pack with Dakin's moistened Kerlix, Apply Moisture Barrier Periwound. Cover with Optifoam drsg Daily and prn. Cleanse R Ischial wound with Dakin's Kristel 0.25%. Apply Dakin's moistened gauze to wound. Apply Moisture Barrier Paste periwound. Cover with Optifoam drsg Daily and prn. Cleanse wounds Lateral R lower extremity, R Heel and Lateral R foot with Dakin's Kristel 0.25%. Place Dakin's Moistened gauze to wounds. Apply Triad Paste along edges of wound. Cover wounds with ABD Pads. Wrap with Kerlix from Base of toes. Cleanse wound R heel with Dakin's Kristel 0.25%. Apply Dakin's moistened Gauze to wound. Apply Triad Periwound. Cover with ABD PAd and wrap with Kerlix. Swab dry Eschar dorsal and Lateral aspect of R foot .Cover with Abd Pads and Wrap with Kerlix Daily and prn. Wash GT site with Soap and water. Apply Triad Paste Daily and prn(Leave Open to Air) Reposition at least every 2hours or as tolerated. Place Pillow Between Knees. Off-Load Heels with Pillow. APM/TERRIE Mattress overlay. (2) Anemia Assessment & Plan: trend h/h prbc prn (3) UTI (urinary tract infection) (4) Pleural effusion, left Assessment & Plan: Lungs: Hazy left lung attenuation could be due to consolidation, pulmonary edema; correlate with presentation. Retrocardiac atelectasis without or with consolidation. Pleural space: Small-moderate left pleural effusion with passive atelectasis. No pneumothorax. Heart: Unremarkable. No cardiomegaly. Mediastinum: Unremarkable. Bones/joints: No acute abnormality Tubes, lines and devices: Tracheostomy. Right upper extremity PICC tip in the mid SVC. IMPRESSION: 1. Tracheostomy. 2. Right upper extremity PICC tip in the mid SVC. 3. Small-moderate left pleural effusion with passive atelectasis. 4. Hazy left lung attenuation could be due to consolidation, pulmonary edema; correlate with presentation. 5. Retrocardiac atelectasis without or with consolidation. 6. Recommend CT chest with IV contrast to further characterize these findings. (5) Malfunction of gastrostomy tube Assessment & Plan: DAILY ESTIMATED NEEDS: Needs based on Wounds, pulmonary/ 74.5kg 25-30 kcals/kg 2432-2015 total kcals 1.5-2 g protein/kg 111-149 g total protein 25-30 mL/kg 6073-0223 total fluid mLs NUTRITION DIAGNOSIS: * Swallowing difficulty R/T dysphagia, h/o craniotomy, respiratory failure as evidenced by pt on T-collar, GJ tube dependent. * Increased kcal/prot/micronutrients needs R/T wound healing as evidenced by pt admitted w/ multiple advanced wounds at sacrum, BL heels, Lt leg, pending evaluation. CURRENT TF:Jevity 1.2 @ 60ml/hr x 24 hrs-> now Glucerna 1.2 ENTERAL NUTRITION RECOMMENDATIONS: Jevity 1.2 @ 65ml/hr x 24 hrs + Prosource 1pkt TID to provide 1560ml, 1872kcal, 86g+ 33g prot, 1259ml free water * Increase goal rate to 65ml/hr x 24 hrs to better meet est needs * Add Prosource 1pkt TID to meet increased protein needs * HOB over 30 degrees/ water flush 150ml q 6hrs without IVF ADDITIONAL RECOMMENDATIONS: * Calibrated bedscale wt * Wound Care: add Vit C 500mg BID, ZnSO4 220mg QD x 10 days Stevie BID * Monitor BGs, need for carb controlled TF * Monitor lytes, replete as needed (6) Acute respiratory failure with hypoxia (7) HCAP (healthcare-associated pneumonia) Deny Westfall Jul 24, 2020 11:56
[2020-07-24 12:00] VITALS: BP 119/59
--- NOTE | 2020-07-24 13:18 | General Progress Note ---
Subjective ROS Limited/Unobtainable: No Constitutional: Reports: fever, malaise, weakness HEENT: Reports: no symptoms Cardiovascular: Reports: no symptoms Respiratory: Reports: cough Gastrointestinal/Abdominal: Reports: no symptoms Genitourinary: Reports: no symptoms Neurologic/Psychiatric: Reports: pre-existing deficit Endocrine: Reports: no symptoms Hematologic/Lymphatic: Reports: no symptoms Allergies: Coded Allergies: No Known Allergies (Unverified , 11/02/19) All Systems: reviewed and negative except above Subjective no change. resting. poorly responsive. on iv abx. cxr with left sided white out. US chest with large pleural effusion. low grade fevers. on abx Objective Last 24 Hour Vital Signs Date Time Temp Pulse Resp B/P (MAP) Pulse Ox O2 Delivery O2 Flow Rate FiO2 07/24/20 13:16 97 T-Piece 8.0 35 07/24/20 12:00 100.6 94 18 119/59 (79) 97 07/24/20 12:00 90 07/24/20 10:42 97.5 07/24/20 09:57 96 135/68 07/24/20 09:00 Trach Collar 10.0 07/24/20 08:00 96 07/24/20 08:00 100.8 96 20 135/68 (90) 95 07/24/20 07:10 95 T-Piece 8.0 35 07/24/20 04:00 90 07/24/20 04:00 98.7 93 16 114/65 (81) 95 07/24/20 01:31 97 T-Piece 8.0 35 07/24/20 00:00 86 07/24/20 00:00 98.0 88 22 128/69 (88) 98 07/23/20 22:27 65 122/78 07/23/20 21:00 Trach Collar 10.0 07/23/20 20:00 97.9 86 20 113/63 (80) 94 07/23/20 20:00 81 07/23/20 19:36 98 T-Piece 8.0 35 07/23/20 16:00 96 07/23/20 16:00 99.4 89 20 108/53 (71) 100 07/23/20 15:44 99.4 Intake and Output 07/23/20 07/24/20 19:00 07:00 Intake Total 135 ml Output Total 2400 ml Balance -2265 ml IV Total 75 ml Tube Feeding 60 ml Output Urine Total 1500 ml Stool Total 900 ml # Voids 1 1 # Bowel Movements 1 Laboratory Tests 07/24/20 05:00: White Blood Count 7.7, Red Blood Count 3.15L, Hemoglobin 9.1L, Hematocrit 27.7L, Mean Corpuscular Volume 88, Mean Corpuscular Hemoglobin 28.8, Mean Corpuscular Hemoglobin Concent 32.8, Red Cell Distribution Width 17.9H, Platelet Count 274, Mean Platelet Volume 5.8L, Neutrophils (%) (Auto) 75.4H, Lymphocytes (%) (Auto) 11.5L, Monocytes (%) (Auto) 7.7, Eosinophils (%) (Auto) 4.4H, Basophils (%) (Auto) 0.9, Sodium Level 140, Potassium Level 4.5, Chloride Level 108H, Carbon Dioxide Level 28, Anion Gap 4L, Blood Urea Nitrogen 32H, Creatinine 1.1, Estimat Glomerular Filtration Rate > 60, Glucose Level 105, Calcium Level 8.6, Total Bilirubin 0.3, Aspartate Amino Transf (AST/SGOT) 26, Alanine Aminotransferase (ALT/SGPT) 23, Alkaline Phosphatase 167H, Total Protein 6.2L, Albumin 0.9L, Globulin 5.3, Albumin/Globulin Ratio 0.2L Height (Feet): 5 Height (Inches): 4.00 Weight (Pounds): 171 Objective General Appearance: WD/WN, confused EENT: normal ENT inspection Neck: normal alignment Cardiovascular: normal rate, regular rhythm Respiratory/Chest: rhonchi - bilaterally Abdomen: normal bowel sounds, non tender, soft, no organomegaly Edema: no edema noted Leg (L), no edema noted Leg (R) Neurologic: disoriented, aphasia Skin: normal pigmentation Assessment/Plan Problem List: (1) Anemia ICD Codes: D64.9 - Anemia, unspecified SNOMED: 878256805, 923445846 Qualifiers: Qualified Codes: D64.9 - Anemia, unspecified (2) Pleural effusion, left ICD Codes: J90 - Pleural effusion, not elsewhere classified SNOMED: 21369497, 300063223 (3) Malfunction of gastrostomy tube ICD Codes: K94.23 - Gastrostomy malfunction SNOMED: 247988056 (4) Acute respiratory failure with hypoxia ICD Codes: J96.01 - Acute respiratory failure with hypoxia SNOMED: 13604834, 816849330 (5) HCAP (healthcare-associated pneumonia) ICD Codes: J18.9 - Pneumonia, unspecified organism SNOMED: 596403925, [id number] Status: stable, progressing Assessment/Plan: Continue IV antibiotic per Follow-up cultures Continue suctioning breathing treatments Continue tube feeds chest PT ?thoracentesis- defer to pulm monitor for fever Monitor H&H. DVT and stress ulcer prophylaxis Monitor on telemetry for recurrent atrial fibrillation. Angel Jaramillo MD Jul 24, 2020 13:18
[2020-07-24 16:00] VITALS: BP 111/57
--- NOTE | 2020-07-24 16:13 | NUR ---
NURSE NOTES: Reported to Dr. Dylan Mak patient is in atrial fibrillation, heart rate 88-95. Received orders for 200mg. amiodarone g-tube, bid and one dose of 200mg. amiodarone, now.
[2020-07-24] MEDS ORDERED: Amiodarone 200mg tab GT SCH (16:17)
--- NOTE | 2020-07-24 18:54 | NUR ---
NURSE NOTES: Left message on voicemail of Dr. Dylan Mak reporting blood [id number]=848/97, [id number], patient is afebrile.
--- NOTE | 2020-07-24 19:19 | General Progress Note ---
Subjective Allergies: Coded Allergies: No Known Allergies (Unverified , 11/02/19) Subjective Above noted no further bleeding stools brown tolerating TF Objective Last 24 Hour Vital Signs Date Time Temp Pulse Resp B/P (MAP) Pulse Ox O2 Delivery O2 Flow Rate FiO2 07/24/20 16:00 98.1 88 20 111/57 (75) 96 07/24/20 16:00 96 07/24/20 13:16 97 T-Piece 8.0 35 07/24/20 12:00 100.6 94 18 119/59 (79) 97 07/24/20 12:00 90 07/24/20 10:42 97.5 07/24/20 09:57 96 135/68 07/24/20 09:00 Trach Collar 10.0 07/24/20 08:00 96 07/24/20 08:00 100.8 96 20 135/68 (90) 95 07/24/20 07:10 95 T-Piece 8.0 35 07/24/20 04:00 90 07/24/20 04:00 98.7 93 16 114/65 (81) 95 07/24/20 01:31 97 T-Piece 8.0 35 07/24/20 00:00 86 07/24/20 00:00 98.0 88 22 128/69 (88) 98 07/23/20 22:27 65 122/78 07/23/20 21:00 Trach Collar 10.0 07/23/20 20:00 97.9 86 20 113/63 (80) 94 07/23/20 20:00 81 07/23/20 19:36 98 T-Piece 8.0 35 Intake and Output 07/23/20 07/24/20 19:00 07:00 Intake Total 135 ml Output Total 2400 ml Balance -2265 ml IV Total 75 ml Tube Feeding 60 ml Output Urine Total 1500 ml Stool Total 900 ml # Voids 1 1 # Bowel Movements 1 Laboratory Tests 07/24/20 05:00: White Blood Count 7.7, Red Blood Count 3.15L, Hemoglobin 9.1L, Hematocrit 27.7L, Mean Corpuscular Volume 88, Mean Corpuscular Hemoglobin 28.8, Mean Corpuscular Hemoglobin Concent 32.8, Red Cell Distribution Width 17.9H, Platelet Count 274, Mean Platelet Volume 5.8L, Neutrophils (%) (Auto) 75.4H, Lymphocytes (%) (Auto) 11.5L, Monocytes (%) (Auto) 7.7, Eosinophils (%) (Auto) 4.4H, Basophils (%) (Auto) 0.9, Sodium Level 140, Potassium Level 4.5, Chloride Level 108H, Carbon Dioxide Level 28, Anion Gap 4L, Blood Urea Nitrogen 32H, Creatinine 1.1, Estimat Glomerular Filtration Rate > 60, Glucose Level 105, Calcium Level 8.6, Total Bilirubin 0.3, Aspartate Amino Transf (AST/SGOT) 26, Alanine Aminotransferase (ALT/SGPT) 23, Alkaline Phosphatase 167H, Total Protein 6.2L, Albumin 0.9L, Globulin 5.3, Albumin/Globulin Ratio 0.2L 07/24/20 18:15: Random Vancomycin Level 14.1 Height (Feet): 5 Height (Inches): 4.00 Weight (Pounds): 171 Objective Eldely WM NCAT (+) trach , T tube Coarse BS RRR abd soft (+) GT ext no edema Assessment/Plan Status: stable, progressing Assessment/Plan: Assessment - UGIB - resolved - Anemia, s/p transfusion - h/o PUD - resp failure, s/p trach - dysphagia, s/p PEG - atrial fibrillation - h/o DVT - EGD: - mild duodenitis - 7-8 mm pre-pyloric polypoid nodule with slight erosion at base - biopsied - GT in appropriate position - no large ulcer or active bleeding Recommendations - OK for anticoagulation - H2B BID indefinitely - TF - follow H&H - If recurrent bleeding --> colonoscopy Akiko Rai MD Jul 24, 2020 19:19
--- NOTE | 2020-07-24 19:38 | NUR ---
NURSE HAND-OFF REPORT: Important Events on Shift: Patient was sinus rhythm, then afib. Increased amiodarone to 200 mg. bid and a one time now dose of 200 mg. Amiodarone at 1600. Left message on voicemail of Dr. Dylan Mak reporting blood [id number], [id number]. Jewel Tien will provide 2100 Coreg dose now. Patient Status: In no apparent distress. Eyes are opening. Diet: Glucerna 1.2@60cc/hour. Pending Orders: am labs. Pending Results/Labs:am labs, CMP, Mg, ProBNP. Pending MD notification:N/A Latest Vital Signs: Temperature 97.7 , Pulse 116 , B/P 183/97 , Respiratory Rate 20 , O2 SAT 96 , Trach Collar, O2 Flow Rate 8.0 . Vital Sign Comment: Brant Tien will provide Coreg 2100 dose now. EKG Rhythm: Atrial Fibrillation Rhythm change?: Y Notified?: Y -Dr. Dylan Mak MD Response: Amiodarone 200 mg. G-tube bid, and one now dose provided at 1600 07/24/20. Latest Ramirez Fall Score: 50 Fall Risk: High Risk Safety Measures: Call light Within Reach, Bed Alarm Zone 1, Side Rails Side Rails x2, Bed position Low and Locked. Fall Precautions: Yellow Socks Yellow Gown Patient Fall Education Report given to Jewel Chauhan RN.
[2020-07-24 20:00] VITALS: BP 157/84
[2020-07-24] MEDS: Dyna-Hex 2% Top Sol 2oz TOPIC SCH (20:20)
[2020-07-24] MEDS ORDERED: Vancomycin 500mg/D5W 100ml IVPB SCH ×2 (21:00)
[2020-07-24] MEDS ORDERED: HydrALAZINE 25mg tab GT PRN (23:30)
[2020-07-25] VITALS: BP 131/72
[2020-07-25] MEDS: D5 1/2NS 1,000 ML IV SCH ×2 (01:43→15:09)
[2020-07-25 04:00] VITALS: BP 137/78
[2020-07-25 04:51] LABS: BASOPHILS % (AUTO) 0.5 % (0.0-2.0); EOSINOPHILS % (AUTO) 2.9 % (0.0-3.0); HEMATOCRIT 26.5 % (42.0-52.0); HEMOGLOBIN 8.7 G/DL (14.2-18.0); LYMPHOCYTES % (AUTO) 14.1 % (20.0-45.0); MEAN CORPUSCULAR VOLUME 88 FL (80-99); NEUTROPHILS % (AUTO) 75.5 % (45.0-75.0); PLATELET COUNT 301 K/UL (150-450); RED BLOOD COUNT 3.02 M/UL (4.70-6.10); RED CELL DISTRIBUTION WIDTH 17.9 % (11.6-14.8); WHITE BLOOD COUNT 6.9 K/UL (4.8-10.8)
[2020-07-25 05:25] LABS: ALANINE AMINOTRANSFERASE 24 U/L (12-78); ALBUMIN 0.9 G/DL (3.4-5.0); ALBUMIN/GLOBULIN RATIO 0.2 (1.0-2.7); ALKALINE PHOSPHATASE 161 U/L (46-116); ANION GAP 1 mmol/L (5-15); ASPARTATE AMINO TRANSFERASE 23 U/L (15-37); BILIRUBIN,TOTAL 0.2 MG/DL (0.2-1.0); BLOOD UREA NITROGEN 31 mg/dL (7-18); CALCIUM 8.3 MG/DL (8.5-10.1); CARBON DIOXIDE 31 MMOL/L (21-32); CHLORIDE 109 MMOL/L (98-107); CREATININE 1.1 MG/DL (0.55-1.30); POTASSIUM 4.4 MMOL/L (3.5-5.1); SODIUM 141 MMOL/L (136-145)
--- NOTE | 2020-07-25 06:54 | NUR ---
NURSE HAND-OFF REPORT: Important Events on Shift:Pt continued scheduled medications. Pt kept on 80%FiO2. Patient Status: Stable Diet: Glu 1.2 69 ml/hr Pending Orders: Pending Results/Labs:AM Labs Pending notification: Latest Vital Signs: Temperature 98.7 , Pulse 95 , B/P 137 /78 , Respiratory Rate 24 , O2 SAT 91 , Trach Collar, O2 Flow Rate 8.0 . Vital Sign Comment: VSS EKG Rhythm: Sinus Rhythm Rhythm change?: N Notified?: N -Dr. Aubree VALDEZ Response: Message left await call Latest Ramirez Fall Score: 50 Fall Risk: High Risk Safety Measures: Call light Within Reach, Bed Alarm Zone 1, Side Rails Side Rails x2, Bed position Low and Locked. Fall Precautions: Yellow Socks Yellow Gown Patient Fall Education Report given to SELIN Landaverde.
--- NOTE | 2020-07-25 07:15 | NUR ---
NURSE NOTES: Received patient report from SELIN Guo. Patient is AOxO. Patient with Trach @10L FiO2 80%. Breathing is even and unlabored with no signs of respiratory distress. No pain or discomfort noted at this time. Pt has GT Glucerna 1.2 60ml/hr no residual and flushing well. Pt has rectal tube draining well to gravity. Pt has valles catheter 16 fr patent and draining well to gravity. Pt has KIZZY PICC Line running D51/2NS 75ml/hr, patent and intact. Bed in lowest position, locked with side rails x2 up. Call light within reach.
[2020-07-25 08:00] VITALS: BP 119/83
[2020-07-25] MEDS: Ascorbic Acid 500mg tab GT SCH ×2 (08:33→18:04)
[2020-07-25] MEDS: Amiodarone 200mg tab GT SCH ×2 (08:33→18:04)
[2020-07-25] MEDS: Carvedilol 6.25mg Tab ORAL SCH ×2 (08:33→20:19)
[2020-07-25] MEDS: Zinc Sulfate 220mg GT SCH (08:33)
[2020-07-25] MEDS: Dakin's 0.25% (Half Strength) 16oz TOPIC SCH (08:34)
--- NOTE | 2020-07-25 08:45 | Pulmonology Progress Note ---
Subjective ROS Limited/Unobtainable: Yes Allergies: Coded Allergies: No Known Allergies (Unverified , 11/02/19) All Systems: reviewed and negative except above Subjective CARE NOTED nonverbal on oxygen no distress Objective Last 24 Hour Vital Signs Date Time Temp Pulse Resp B/P (MAP) Pulse Ox O2 Delivery O2 Flow Rate FiO2 07/25/20 08:33 93 135/80 07/25/20 04:00 98.7 99 24 137/78 (97) 91 07/25/20 04:00 95 07/25/20 01:24 96 T-Piece 8.0 35 07/25/20 00:00 94 07/25/20 00:00 99.3 95 24 131/72 (91) 94 07/24/20 21:00 Trach Collar 10.0 07/24/20 20:22 110 154/90 07/24/20 20:00 96 07/24/20 20:00 98.7 116 28 157/84 (108) 91 07/24/20 19:00 95 T-Piece 8.0 35 07/24/20 16:00 98.1 88 20 111/57 (75) 96 07/24/20 16:00 96 07/24/20 13:16 97 T-Piece 8.0 35 07/24/20 12:00 100.6 94 18 119/59 (79) 97 07/24/20 12:00 90 07/24/20 10:42 97.5 07/24/20 09:57 96 135/68 07/24/20 09:00 Trach Collar 10.0 Intake and Output 07/24/20 07/25/20 19:00 07:00 Intake Total 1485 ml Output Total 1200 ml 1700 ml Balance 285 ml -1700 ml IV Total 825 ml Tube Feeding 660 ml Output Urine Total 1200 ml 1400 ml Stool Total 300 ml # Voids 1 # Bowel Movements 1 Objective WDWN NAD awake chronically ill moderate breath sounds bilaterally without rhonchi or wheeze [id number] NABS nontender GT no CCE nonfocal weak wounds noted Laboratory Tests 07/24/20 18:15: Random Vancomycin Level 14.1 07/25/20 04:00: White Blood Count 6.9, Red Blood Count 3.02L, Hemoglobin 8.7L, Hematocrit 26.5L, Mean Corpuscular Volume 88, Mean Corpuscular Hemoglobin 29.0, Mean Corpuscular Hemoglobin Concent 33.0, Red Cell Distribution Width 17.9H, Platelet Count 301, Mean Platelet Volume 6.1L, Neutrophils (%) (Auto) 75.5H, Lymphocytes (%) (Auto) 14.1L, Monocytes (%) (Auto) 7.0, Eosinophils (%) (Auto) 2.9, Basophils (%) (Auto) 0.5, Sodium Level 141, Potassium Level 4.4, Chloride Level 109H, Carbon Dioxide Level 31, Anion Gap 1L, Blood Urea Nitrogen 31H, Creatinine 1.1, Estimat Glomerular Filtration Rate > 60, Glucose Level 115H, Calcium Level 8.3L, Magnesium Level 1.8, Total Bilirubin 0.2, Aspartate Amino Transf (AST/SGOT) 23, Alanine Aminotransferase (ALT/SGPT) 24, Alkaline Phosphatase 161H, Pro-B-Type Natriuretic Peptide 7308H, Total Protein 6.2L, Albumin 0.9L, Globulin 5.3, Albumin/Globulin Ratio 0.2L Current Medications Medications (Trade) Dose Ordered Sig/Clive Route PRN Reason Start Time Stop Time Status Last Admin Dose Admin Acetaminophen (Tylenol) 650 mg Q4H PRN GT Temp >100.5 07/18/20 09:30 08/17/20 09:29 07/24/20 10:12 Acetaminophen (Tylenol) 650 mg Q4H PRN RECTAL Temp >100.5 07/14/20 13:30 08/13/20 13:29 Amiodarone HCl (Cordarone) 200 mg BID GT 07/24/20 18:00 10/23/20 08:59 07/25/20 08:33 Ascorbic Acid (Vitamin C) 250 mg TWICE A DAY GT 07/16/20 18:00 08/15/20 17:59 07/25/20 08:33 Atorvastatin Calcium (Lipitor) 10 mg BEDTIME ORAL 07/24/20 21:00 10/22/20 20:59 07/24/20 20:20 Carvedilol (Coreg) 6.25 mg EVERY 12 HOURS ORAL 07/15/20 09:00 08/14/20 08:59 07/25/20 08:33 Chlorhexidine Gluconate (Jennifer-Hex 2%) 1 applic DAILY@1999 TOPIC 07/17/20 20:00 10/15/20 19:59 1/7/21 20:20 Dextrose/Sodium Chloride 1,000 ml @ 75 mls/hr [id number] IV 07/14/20 17:30 08/13/20 17:29 07/25/20 01:43 Famotidine (Pepcid) 20 mg Q12HR GT 07/16/20 21:00 10/14/20 20:59 07/25/20 08:33 Finasteride (Proscar) 5 mg DAILY ORAL 07/15/20 09:00 10/13/20 08:59 07/25/20 08:34 Hydralazine HCl (Apresoline) 25 mg Q6H PRN GT SBP above 150 07/24/20 23:30 10/22/20 23:29 Levetiracetam (Keppra) 1,000 mg Q12HR ORAL 07/14/20 21:00 08/13/20 20:59 07/25/20 08:33 Multivitamins (Multivitamins) 1 tab DAILY GT 07/17/20 09:00 08/16/20 08:59 07/25/20 08:33 Sodium Hypochlorite (Dakin's Half Strength) 1 applic DAILY TOPIC 07/16/20 13:00 08/15/20 12:59 07/25/20 08:34 Vancomycin HCl ([facility] pharmacy to dose) 1 ea DAILY PRN MISC Per rx protocol 07/16/20 11:30 08/15/20 11:29 Zinc Sulfate (Zinc Sulfate) 220 mg DAILY GT 07/17/20 09:00 07/27/20 08:59 07/25/20 08:33 Assessment/Plan Assessment/Plan Impression: Healthcare-associated pneumonia Acute respiratory failure with hypoxia Tracheostomy status Pleural effusion, left-recurrent Decubitus ulcers Urinary tract infection Anemia S/p previous Craniotomy, RCA occlusion, [employer] shunt Seizure history GERD, dysphagia s/p GJ tube h/o Hypertension h/o Atrial fibrillation Previous DVT and Pulmonary Embolism, Plan ID clearance monitor monitor for change J tube feeds O2 - needs noted nebs as needed 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
[2020-07-25] MEDS ORDERED: Amiodarone 200mg tab GT SCH (09:00)
--- NOTE | 2020-07-25 11:00 | Surgery Progress Note ---
Surgery Progress Note Subjective Additional Comments Patient seen and examined bedside. No acute events. Resting comfortably. Labs reviewed micro reviewed imaging reviewed. Afebrile hemodynamically stable at this time Objective Last 24 Hour Vital Signs Date Time Temp Pulse Resp B/P (MAP) Pulse Ox O2 Delivery O2 Flow Rate FiO2 07/25/20 09:00 Trach Collar 10.0 07/25/20 09:00 101 07/25/20 08:33 93 135/80 07/25/20 08:00 98.8 95 18 119/83 (95) 91 07/25/20 07:25 90 T-Piece 8.0 35 07/25/20 04:00 98.7 99 24 137/78 (97) 91 07/25/20 04:00 95 07/25/20 01:24 96 T-Piece 8.0 35 07/25/20 00:00 94 07/25/20 00:00 99.3 95 24 131/72 (91) 94 07/24/20 21:00 Trach Collar 10.0 07/24/20 20:22 110 154/90 07/24/20 20:00 96 07/24/20 20:00 98.7 116 28 157/84 (108) 91 07/24/20 19:00 95 T-Piece 8.0 35 07/24/20 16:00 98.1 88 20 111/57 (75) 96 07/24/20 16:00 96 07/24/20 13:16 97 T-Piece 8.0 35 07/24/20 12:00 100.6 94 18 119/59 (79) 97 07/24/20 12:00 90 I&O Intake and Output 07/24/20 07/25/20 19:00 07:00 Intake Total 1485 ml Output Total 1200 ml 1700 ml Balance 285 ml -1700 ml IV Total 825 ml Tube Feeding 660 ml Output Urine Total 1200 ml 1400 ml Stool Total 300 ml # Voids 1 # Bowel Movements 1 Dressing: saturated Cardiovascular: RSR Respiratory: decreased breath sounds Abdomen: soft, present bowel sounds, non-distended Extremities: edema, no tenderness, no cyanosis Laboratory Tests Test 07/24/20 18:15 07/25/20 04:00 Random Vancomycin Level 14.1 ug/mL White Blood Count 6.9 K/UL (4.8-10.8) Red Blood Count 3.02 M/UL (4.70-6.10) L Hemoglobin 8.7 G/DL (14.2-18.0) L Hematocrit 26.5 % (42.0-52.0) L Mean Corpuscular Volume 88 FL (80-99) Mean Corpuscular Hemoglobin 29.0 PG (27.0-31.0) Mean Corpuscular Hemoglobin Concent 33.0 G/DL (32.0-36.0) Red Cell Distribution Width 17.9 % (11.6-14.8) H Platelet Count 301 K/UL (150-450) Mean Platelet Volume 6.1 FL (6.5-10.1) L Neutrophils (%) (Auto) 75.5 % (45.0-75.0) H Lymphocytes (%) (Auto) 14.1 % (20.0-45.0) L Monocytes (%) (Auto) 7.0 % (1.0-10.0) Eosinophils (%) (Auto) 2.9 % (0.0-3.0) Basophils (%) (Auto) 0.5 % (0.0-2.0) Sodium Level 141 MMOL/L (136-145) Potassium Level 4.4 MMOL/L (3.5-5.1) Chloride Level 109 MMOL/L (98-107) H Carbon Dioxide Level 31 MMOL/L (21-32) Anion Gap 1 mmol/L (5-15) L Blood Urea Nitrogen 31 mg/dL (7-18) H Creatinine 1.1 MG/DL (0.55-1.30) Estimat Glomerular Filtration Rate > 60 mL/min (>60) Glucose Level 115 MG/DL (74-106) H Calcium Level 8.3 MG/DL (8.5-10.1) L Magnesium Level 1.8 MG/DL (1.8-2.4) Total Bilirubin 0.2 MG/DL (0.2-1.0) Aspartate Amino Transf (AST/SGOT) 23 U/L (15-37) Alanine Aminotransferase (ALT/SGPT) 24 U/L (12-78) Alkaline Phosphatase 161 U/L (46-116) H Pro-B-Type Natriuretic Peptide 7308 pg/mL (0-125) H Total Protein 6.2 G/DL (6.4-8.2) L Albumin 0.9 G/DL (3.4-5.0) L Globulin 5.3 g/dL Albumin/Globulin Ratio 0.2 (1.0-2.7) L Plan Problems: (1) Decubitus skin ulcer Assessment & Plan: Pt presented on admission with PV shunt,Tracheostomy, Contractures and multiple Pressure Injuries.Skin assessed under tracheal collar. Skin is erythematous but without any open wounds. GT site is red and excoriated.Scattered senile purpuras bilat upper extremities. Full thickness Sacral Pressure Injury(L)11.8cm x (W)8cm. Base of wound is 75% mixed necrosis and slough,20% antonio. Bone is palpable at base. Edges are macerated. Mild odor noted. Small amt brown exudate noted. Periwound is indurated and maroon with additional erythema and scattered Partial thickness shearing. Full Thickness Pressure Injury L trochanteric with undermined borders.(L)5cm x (W)7cm x (D)2.6cm, undermining clockwise 11-2 by 4.2cm @11o'clock. Base of wound is 75%% mixed necrosis and slough,25% antonio. Wound has appearance of two wounds secondary necrotic bridge.In addition, periwound at clockwise 10-2o'clock the base is necrotic and fluctuant with marginal erythema. Small amt malodorous haemopurulent exudate noted. Full thickness Pressure Injury L Ischium(L)3.5cm x (W)2.0cm. Base of wound is 80% slough,20% antonio. Surrounding necrotic borders that are fluctuant.Small amt sanguineous exudate. Mild odor noted. Full thickness Pressure Injury lateral L Tibia to L lateral Malleolus(L)24.5cm x (W)3.5cm. Base of wound is antonio with scattered necrosis and slough, tendon exposure. Semi-detached borders that indurated and macerated with an area of soft necrosis at proximal borders of wound. Small amt haemopurulent exudate noted. No odor noted. Full thickness Pressure Injury L Heel(L)10.3cm x (W)7.5cm. Base of wound is 60% necrotic,10% slough,30% antonio. Bone is palpable. Borders are indurated with a portion of borders rolled giving heel a shaved appearance. Moderate amt haemopurulent exudate. Mild odor noted.Periwound is purpuric and fluctuant. Full thickness Pressure Injury medial/lateral L foot(L)3.5cm x (W)3.5cm x (D)0.3cm. Base of wound is antonio. Borders and periwound are purpuric and fluctuant.Small amt sanguineous exudate noted. Unstageable Pressure Injury Distal/Lateral L foot(L)2.7cm x (W)4.3cm. Base of wound is 80% soft necrosis,20% antonio. Edges are adherent to base of wound. Periwound is purpuric and fluctuant. Full thickness Pressure Injury R heel Plantar(L)8.5cm x (W)9cm. Base of pressure with scattered necrosis and slough,otherwise base of wound is natonio. Edges are macerated with surrounding necrosis. Small amt seropurulent exudate noted.Mild odor noted. Stable dry eschar dorsal R foot1.5cm x (W)1cm. Edges are adherent to base of wound. No erythema,induration or fluctuance periwound. Stable dry eschar distal/lateral R foot (L)0.8cm x (W)0.8cm. NO erythema,induration or fluctuance periwound. R foot is edematous. Tx.Plan: Cleanse Sacral wound with Dakin's Kristel 0.25%. Apply Dakin's moistened kerlix to wound. Apply Triad periwound. Cover with Optifoam drsg. Change Daily and prn. Cleanse L trochanteric Wound with Dakin's Kristel 0.25%. Loosely pack with Dakin's moistened Kerlix, Apply Moisture Barrier Periwound. Cover with Optifoam drsg Daily and prn. Cleanse R Ischial wound with Dakin's Kristel 0.25%. Apply Dakin's moistened gauze to wound. Apply Moisture Barrier Paste periwound. Cover with Optifoam drsg Daily and prn. Cleanse wounds Lateral R lower extremity, R Heel and Lateral R foot with Dakin's Kristel 0.25%. Place Dakin's Moistened gauze to wounds. Apply Triad Paste along edges of wound. Cover wounds with ABD Pads. Wrap with Kerlix from Base of toes. Cleanse wound R heel with Dakin's Kristel 0.25%. Apply Dakin's moistened Gauze to wound. Apply Triad Periwound. Cover with ABD PAd and wrap with Kerlix. Swab dry Eschar dorsal and Lateral aspect of R foot .Cover with Abd Pads and Wrap with Kerlix Daily and prn. Wash GT site with Soap and water. Apply Triad Paste Daily and prn(Leave Open to Air) Reposition at least every 2hours or as tolerated. Place Pillow Between Knees. Off-Load Heels with Pillow. APM/TERRIE Mattress overlay. (2) Anemia Assessment & Plan: trend h/h prbc prn (3) UTI (urinary tract infection) (4) Pleural effusion, left Assessment & Plan: Lungs: Hazy left lung attenuation could be due to consolidation, pulmonary edema; correlate with presentation. Retrocardiac atelectasis without or with consolidation. Pleural space: Small-moderate left pleural effusion with passive atelectasis. No pneumothorax. Heart: Unremarkable. No cardiomegaly. Mediastinum: Unremarkable. Bones/joints: No acute abnormality Tubes, lines and devices: Tracheostomy. Right upper extremity PICC tip in the mid SVC. IMPRESSION: 1. Tracheostomy. 2. Right upper extremity PICC tip in the mid SVC. 3. Small-moderate left pleural effusion with passive atelectasis. 4. Hazy left lung attenuation could be due to consolidation, pulmonary edema; correlate with presentation. 5. Retrocardiac atelectasis without or with consolidation. 6. Recommend CT chest with IV contrast to further characterize these findings. (5) Malfunction of gastrostomy tube Assessment & Plan: DAILY ESTIMATED NEEDS: Needs based on Wounds, pulmonary/ 74.5kg 25-30 kcals/kg 6804-9120 total kcals 1.5-2 g protein/kg 111-149 g total protein 25-30 mL/kg 8496-1124 total fluid mLs NUTRITION DIAGNOSIS: * Swallowing difficulty R/T dysphagia, h/o craniotomy, respiratory failure as evidenced by pt on T-collar, GJ tube dependent. * Increased kcal/prot/micronutrients needs R/T wound healing as evidenced by pt admitted w/ multiple advanced wounds at sacrum, BL heels, Lt leg, pending evaluation. CURRENT TF:Jevity 1.2 @ 60ml/hr x 24 hrs-> now Glucerna 1.2 ENTERAL NUTRITION RECOMMENDATIONS: Jevity 1.2 @ 65ml/hr x 24 hrs + Prosource 1pkt TID to provide 1560ml, 1872kcal, 86g+ 33g prot, 1259ml free water * Increase goal rate to 65ml/hr x 24 hrs to better meet est needs * Add Prosource 1pkt TID to meet increased protein needs * HOB over 30 degrees/ water flush 150ml q 6hrs without IVF ADDITIONAL RECOMMENDATIONS: * Calibrated bedscale wt * Wound Care: add Vit C 500mg BID, ZnSO4 220mg QD x 10 days Stevie BID * Monitor BGs, need for carb controlled TF * Monitor lytes, replete as needed (6) Acute respiratory failure with hypoxia (7) HCAP (healthcare-associated pneumonia) Deny Westfall Jul 25, 2020 11:00
--- NOTE | 2020-07-25 11:42 | Infectious Diseases Prog Note ---
Assessment/Plan Assessment/Plan antibiotics : vancomycin iv A 1. aspiration pneumonia. COVID19 test is negative. 2. coag neg staph line sepsis 3. Hypertension. 4. Atrial fibrillation. 5. anemia 6. respiratory failure S/p tracheostomy 7. Left pleural effusion P 1. d/c iv vancomycin 2. will follow up cultures Subjective ROS Limited/Unobtainable: Yes Allergies: Coded Allergies: No Known Allergies (Unverified , 11/02/19) Objective Last 24 Hour Vital Signs Date Time Temp Pulse Resp B/P (MAP) Pulse Ox O2 Delivery O2 Flow Rate FiO2 07/25/20 09:00 Trach Collar 10.0 07/25/20 09:00 101 07/25/20 08:33 93 135/80 07/25/20 08:00 98.8 95 18 119/83 (95) 91 07/25/20 07:25 90 T-Piece 8.0 35 07/25/20 04:00 98.7 99 24 137/78 (97) 91 07/25/20 04:00 95 07/25/20 01:24 96 T-Piece 8.0 35 07/25/20 00:00 94 07/25/20 00:00 99.3 95 24 131/72 (91) 94 07/24/20 21:00 Trach Collar 10.0 07/24/20 20:22 110 154/90 07/24/20 20:00 96 07/24/20 20:00 98.7 116 28 157/84 (108) 91 07/24/20 19:00 95 T-Piece 8.0 35 07/24/20 16:00 98.1 88 20 111/57 (75) 96 07/24/20 16:00 96 07/24/20 13:16 97 T-Piece 8.0 35 07/24/20 12:00 100.6 94 18 119/59 (79) 97 07/24/20 12:00 90 Height (Feet): 5 Height (Inches): 4.00 Weight (Pounds): 171 HEENT: status post trach Respiratory/Chest: lungs clear Cardiovascular: normal rate, regular rhythm, no gallop/murmur Abdomen: soft, non tender, other - GT Extremities: no edema Laboratory Tests Test 07/24/20 18:15 07/25/20 04:00 Random Vancomycin Level 14.1 ug/mL White Blood Count 6.9 K/UL (4.8-10.8) Red Blood Count 3.02 M/UL (4.70-6.10) L Hemoglobin 8.7 G/DL (14.2-18.0) L Hematocrit 26.5 % (42.0-52.0) L Mean Corpuscular Volume 88 FL (80-99) Mean Corpuscular Hemoglobin 29.0 PG (27.0-31.0) Mean Corpuscular Hemoglobin Concent 33.0 G/DL (32.0-36.0) Red Cell Distribution Width 17.9 % (11.6-14.8) H Platelet Count 301 K/UL (150-450) Mean Platelet Volume 6.1 FL (6.5-10.1) L Neutrophils (%) (Auto) 75.5 % (45.0-75.0) H Lymphocytes (%) (Auto) 14.1 % (20.0-45.0) L Monocytes (%) (Auto) 7.0 % (1.0-10.0) Eosinophils (%) (Auto) 2.9 % (0.0-3.0) Basophils (%) (Auto) 0.5 % (0.0-2.0) Sodium Level 141 MMOL/L (136-145) Potassium Level 4.4 MMOL/L (3.5-5.1) Chloride Level 109 MMOL/L (98-107) H Carbon Dioxide Level 31 MMOL/L (21-32) Anion Gap 1 mmol/L (5-15) L Blood Urea Nitrogen 31 mg/dL (7-18) H Creatinine 1.1 MG/DL (0.55-1.30) Estimat Glomerular Filtration Rate > 60 mL/min (>60) Glucose Level 115 MG/DL (74-106) H Calcium Level 8.3 MG/DL (8.5-10.1) L Magnesium Level 1.8 MG/DL (1.8-2.4) Total Bilirubin 0.2 MG/DL (0.2-1.0) Aspartate Amino Transf (AST/SGOT) 23 U/L (15-37) Alanine Aminotransferase (ALT/SGPT) 24 U/L (12-78) Alkaline Phosphatase 161 U/L (46-116) H Pro-B-Type Natriuretic Peptide 7308 pg/mL (0-125) H Total Protein 6.2 G/DL (6.4-8.2) L Albumin 0.9 G/DL (3.4-5.0) L Globulin 5.3 g/dL Albumin/Globulin Ratio 0.2 (1.0-2.7) L Current Medications Medications (Trade) Dose Ordered Sig/Clive Route PRN Reason Start Time Stop Time Status Last Admin Dose Admin Acetaminophen (Tylenol) 650 mg Q4H PRN GT Temp >100.5 07/18/20 09:30 08/17/20 09:29 07/24/20 10:12 Acetaminophen (Tylenol) 650 mg Q4H PRN RECTAL Temp >100.5 07/14/20 13:30 08/13/20 13:29 Amiodarone HCl (Cordarone) 200 mg BID GT 07/24/20 18:00 10/23/20 08:59 07/25/20 08:33 Ascorbic Acid (Vitamin C) 250 mg TWICE A DAY GT 07/16/20 18:00 08/15/20 17:59 07/25/20 08:33 Atorvastatin Calcium (Lipitor) 10 mg BEDTIME ORAL 07/24/20 21:00 10/22/20 20:59 07/24/20 20:20 Carvedilol (Coreg) 6.25 mg EVERY 12 HOURS ORAL 07/15/20 09:00 08/14/20 08:59 07/25/20 08:33 Chlorhexidine Gluconate (Jennifer-Hex 2%) 1 applic DAILY@2000 TOPIC 07/17/20 20:00 10/15/20 19:59 07/24/20 20:20 Dextrose/Sodium Chloride 1,000 ml @ 75 mls/hr [id number] IV 07/14/20 17:30 08/13/20 17:29 07/25/20 01:43 Famotidine (Pepcid) 20 mg Q12HR GT 07/16/20 21:00 10/14/20 20:59 07/25/20 08:33 Finasteride (Proscar) 5 mg DAILY ORAL 07/15/20 09:00 10/13/20 08:59 07/25/20 08:34 Hydralazine HCl (Apresoline) 25 mg Q6H PRN GT SBP above 150 07/24/20 23:30 10/22/20 23:29 Levetiracetam (Keppra) 1,000 mg Q12HR ORAL 07/14/20 21:00 08/13/20 20:59 07/25/20 08:33 Multivitamins (Multivitamins) 1 tab DAILY GT 07/17/20 09:00 08/16/20 08:59 07/25/20 08:33 Sodium Hypochlorite (Dakin's Half Strength) 1 applic DAILY TOPIC 07/16/20 13:00 08/15/20 12:59 07/25/20 08:34 Vancomycin HCl ([facility] pharmacy to dose) 1 ea DAILY PRN MISC Per rx protocol 07/16/20 11:30 08/15/20 11:29 Zinc Sulfate (Zinc Sulfate) 220 mg DAILY GT 07/17/20 09:00 07/27/20 08:59 07/25/20 08:33 Kristie Reina MD Jul 25, 2020 11:42
[2020-07-25 12:00] VITALS: BP 150/85
[2020-07-25 16:00] VITALS: BP 151/84
--- NOTE | 2020-07-25 16:11 | NUR ---
CASE MANAGEMENT:REVIEW 07/25/20 SI: PNA. UTI. BACTEREMIA. UGIB 98.2 101 22 150/85 92% ON 10L/35% VIA TRACH COLLAR H/H-8.7/26.5 BUN+31 BNP+7308 IS: IVF@75/HR COREG GT Q12 KEPPRA GT Q12 AMIODARONE GT Q12 ZINC GT QD : TELEMETRY STATUS DCP: FROM HOME
--- NOTE | 2020-07-25 16:14 | NUR ---
DISCHARGE PLAN PATIENT'S DOES NOT SPEAK [place] FLUENTLY. SPOKE WITH COUSIN REBEKA T: [phone] PLAN IS FOR PATIENT TO RETURN HOME UPON DISCHARGE [facility] T: [phone] SUPPLIES BED AND MATTRESS [facility] T: [phone] PROVIDES FEEDING SUPPLIES
--- NOTE | 2020-07-25 18:24 | General Progress Note ---
Subjective ROS Limited/Unobtainable: Yes Constitutional: Reports: malaise, weakness HEENT: Reports: no symptoms Cardiovascular: Reports: no symptoms Respiratory: Reports: cough, shortness of breath, sputum Gastrointestinal/Abdominal: Reports: difficulty swallowing Genitourinary: Reports: no symptoms Neurologic/Psychiatric: Reports: pre-existing deficit, seizure Endocrine: Reports: no symptoms Hematologic/Lymphatic: Reports: no symptoms Allergies: Coded Allergies: No Known Allergies (Unverified , 11/02/19) All Systems: reviewed and negative except above Subjective no change. resting. poorly responsive. off abx. cxr with left sided white out. cxr reviewed. Objective Last 24 Hour Vital Signs Date Time Temp Pulse Resp B/P (MAP) Pulse Ox O2 Delivery O2 Flow Rate FiO2 07/25/20 16:00 98.6 99 24 151/84 (106) 92 07/25/20 16:00 104 07/25/20 13:55 90 T-Piece 10.0 60 07/25/20 12:00 92 07/25/20 12:00 98.1 96 22 150/85 (106) 92 07/25/20 09:00 Trach Collar 10.0 07/25/20 09:00 101 07/25/20 08:33 93 135/80 07/25/20 08:00 98.8 95 18 119/83 (95) 91 07/25/20 07:25 90 T-Piece 8.0 35 07/25/20 04:00 98.7 99 24 137/78 (97) 91 07/25/20 04:00 95 07/25/20 01:24 96 T-Piece 8.0 35 07/25/20 00:00 94 07/25/20 00:00 99.3 95 24 131/72 (91) 94 07/24/20 21:00 Trach Collar 10.0 07/24/20 20:22 110 154/90 07/24/20 20:00 96 07/24/20 20:00 98.7 116 28 157/84 (108) 91 07/24/20 19:00 95 T-Piece 8.0 35 Intake and Output 07/24/20 07/25/20 19:00 07:00 Intake Total 1485 ml Output Total 1200 ml 1700 ml Balance 285 ml -1700 ml IV Total 825 ml Tube Feeding 660 ml Output Urine Total 1200 ml 1400 ml Stool Total 300 ml # Voids 1 # Bowel Movements 1 Laboratory Tests 07/25/20 04:00: White Blood Count 6.9, Red Blood Count 3.02L, Hemoglobin 8.7L, Hematocrit 26.5L, Mean Corpuscular Volume 88, Mean Corpuscular Hemoglobin 29.0, Mean Corpuscular Hemoglobin Concent 33.0, Red Cell Distribution Width 17.9H, Platelet Count 301, Mean Platelet Volume 6.1L, Neutrophils (%) (Auto) 75.5H, Lymphocytes (%) (Auto) 14.1L, Monocytes (%) (Auto) 7.0, Eosinophils (%) (Auto) 2.9, Basophils (%) (Auto) 0.5, Sodium Level 141, Potassium Level 4.4, Chloride Level 109H, Carbon Dioxide Level 31, Anion Gap 1L, Blood Urea Nitrogen 31H, Creatinine 1.1, Estimat Glomerular Filtration Rate > 60, Glucose Level 115H, Calcium Level 8.3L, Magnesium Level 1.8, Total Bilirubin 0.2, Aspartate Amino Transf (AST/SGOT) 23, Alanine Aminotransferase (ALT/SGPT) 24, Alkaline Phosphatase 161H, Pro-B-Type Natriuretic Peptide 7308H, Total Protein 6.2L, Albumin 0.9L, Globulin 5.3, Albumin/Globulin Ratio 0.2L Height (Feet): 5 Height (Inches): 4.00 Weight (Pounds): 171 Objective General Appearance: WD/WN, confused EENT: normal ENT inspection Neck: normal alignment Cardiovascular: normal rate, regular rhythm Respiratory/Chest: rhonchi - bilaterally Abdomen: normal bowel sounds, non tender, soft, no organomegaly Edema: no edema noted Leg (L), no edema noted Leg (R) Neurologic: disoriented, aphasia Skin: normal pigmentation Assessment/Plan Problem List: (1) Anemia ICD Codes: D64.9 - Anemia, unspecified SNOMED: 446598654, 443961016 Qualifiers: Qualified Codes: D64.9 - Anemia, unspecified (2) Pleural effusion, left ICD Codes: J90 - Pleural effusion, not elsewhere classified SNOMED: 02094018, 021726364 (3) Malfunction of gastrostomy tube ICD Codes: K94.23 - Gastrostomy malfunction SNOMED: 515425237 (4) Acute respiratory failure with hypoxia ICD Codes: J96.01 - Acute respiratory failure with hypoxia SNOMED: 61034563, 998689543 (5) HCAP (healthcare-associated pneumonia) ICD Codes: J18.9 - Pneumonia, unspecified organism SNOMED: 184536719, 091192240 Status: stable, progressing Assessment/Plan: monitor off abx trach care resp rx Continue suctioning as needed Continue tube feeds chest PT monitor for fever Monitor H&H. DVT and stress ulcer prophylaxis Monitor on telemetry for recurrent atrial fibrillation. dc planning Angel Jaramillo MD Jul 25, 2020 18:24
--- NOTE | 2020-07-25 19:23 | NUR ---
NURSE HAND-OFF REPORT: Important Events on Shift:NA Patient Status: Stable Diet: Gtube Glucerna 1.2 Pending Orders: NA Pending Results/Labs:NA Pending notification:NA Latest Vital Signs: Temperature 98.6 , Pulse 99 , B/P 151 /84 , Respiratory Rate 24 , O2 SAT 92 , Trach Collar, O2 Flow Rate 10.0 . Vital Sign Comment: Stable EKG Rhythm: Sinus Tachycardia Rhythm change?: N MD Notified?: N -Dr. Aubree VALDEZ Response: Message left await call Latest Ramirez Fall Score: 50 Fall Risk: High Risk Safety Measures: Call light Within Reach, Bed Alarm Zone 1, Side Rails Side Rails x2, Bed position Low and Locked. Fall Precautions: Yellow Socks Yellow Gown Patient Fall Education Report given to SELIN Guo.
--- NOTE | 2020-07-25 19:25 | NUR ---
NURSE NOTES: Pt received from SELIN Landaverde. Pt is resting comfortably in bed and denies any pain. Pt has cardiac monitoring Afib afebrile and hypertensive; MD notified and made aware. Pt has Trach 10LPM breathing unlabored and asymptomatic. Pt has GT Glucerna 1.2 60ml/hr no residual and flushing well. Pt has rectal tube draining well to gravity. Pt has valles catheter 16 fr patent and draining well to gravity. Pt has KIZZY PICC Line running D51/2NS 75ml/hr patent with skin dry and intact. Bed is locked and in lowest position with call light within reach. Will continue to monitor.
[2020-07-25 20:00] VITALS: BP 177/100
[2020-07-25] MEDS: Dyna-Hex 2% Top Sol 2oz TOPIC SCH (20:17)
--- NOTE | 2020-07-25 21:08 | General Progress Note ---
Subjective Allergies: Coded Allergies: No Known Allergies (Unverified , 11/02/19) Subjective Above noted no further bleeding stools brown tolerating TF Objective Last 24 Hour Vital Signs Date Time Temp Pulse Resp B/P (MAP) Pulse Ox O2 Delivery O2 Flow Rate FiO2 07/25/20 20:19 94 171/94 07/25/20 19:50 91 T-Piece 10.0 60 07/25/20 16:00 98.6 99 24 151/84 (106) 92 07/25/20 16:00 104 07/25/20 13:55 90 T-Piece 10.0 60 07/25/20 12:00 92 07/25/20 12:00 98.1 96 22 150/85 (106) 92 07/25/20 09:00 Trach Collar 10.0 07/25/20 09:00 101 07/25/20 08:33 93 135/80 07/25/20 08:00 98.8 95 18 119/83 (95) 91 07/25/20 07:25 90 T-Piece 8.0 35 07/25/20 04:00 98.7 99 24 137/78 (97) 91 07/25/20 04:00 95 07/25/20 01:24 96 T-Piece 8.0 35 07/25/20 00:00 94 07/25/20 00:00 99.3 95 24 131/72 (91) 94 Intake and Output 07/24/20 07/25/20 19:00 07:00 Intake Total 1485 ml Output Total 1200 ml 1700 ml Balance 285 ml -1700 ml IV Total 825 ml Tube Feeding 660 ml Output Urine Total 1200 ml 1400 ml Stool Total 300 ml # Voids 1 # Bowel Movements 1 Laboratory Tests 07/25/20 04:00: White Blood Count 6.9, Red Blood Count 3.02L, Hemoglobin 8.7L, Hematocrit 26.5L, Mean Corpuscular Volume 88, Mean Corpuscular Hemoglobin 29.0, Mean Corpuscular Hemoglobin Concent 33.0, Red Cell Distribution Width 17.9H, Platelet Count 301, Mean Platelet Volume 6.1L, Neutrophils (%) (Auto) 75.5H, Lymphocytes (%) (Auto) 14.1L, Monocytes (%) (Auto) 7.0, Eosinophils (%) (Auto) 2.9, Basophils (%) (Auto) 0.5, Sodium Level 141, Potassium Level 4.4, Chloride Level 109H, Carbon Dioxide Level 31, Anion Gap 1L, Blood Urea Nitrogen 31H, Creatinine 1.1, Estimat Glomerular Filtration Rate > 60, Glucose Level 115H, Calcium Level 8.3L, Magnesium Level 1.8, Total Bilirubin 0.2, Aspartate Amino Transf (AST/SGOT) 23, Alanine Aminotransferase (ALT/SGPT) 24, Alkaline Phosphatase 161H, Pro-B-Type Natriuretic Peptide 7308H, Total Protein 6.2L, Albumin 0.9L, Globulin 5.3, Albumin/Globulin Ratio 0.2L 07/25/20 18:50: Random Vancomycin Level 14.0 Height (Feet): 5 Height (Inches): 4.00 Weight (Pounds): 171 Objective Eldely WM NCAT (+) trach , T tube Coarse BS RRR abd soft (+) GT ext no edema Assessment/Plan Status: stable, progressing Assessment/Plan: Assessment - UGIB - resolved - Anemia, s/p transfusion - h/o PUD - resp failure, s/p trach - dysphagia, s/p PEG - atrial fibrillation - h/o DVT - EGD: - mild duodenitis - 7-8 mm pre-pyloric polypoid nodule with slight erosion at base - biopsied - GT in appropriate position - no large ulcer or active bleeding Recommendations - OK for anticoagulation - H2B BID indefinitely - TF - follow H&H - If recurrent bleeding --> colonoscopy Akiko Rai MD Jul 25, 2020 21:08
--- NOTE | 2020-07-25 22:06 | Cardiology Progress Note ---
Subjective DATE OF SERVICE: Jul 25, 2020 Withdrawn but alert with spontaneous eye movements. Monitor: Sinus arrhythmia with PAC's and paroxysms of AFib/flutter. Troponins now normalized CXR with large left pleural eff'n Objective Last 24 Hour Vital Signs Date Time Temp Pulse Resp B/P (MAP) Pulse Ox O2 Delivery O2 Flow Rate FiO2 07/25/20 20:19 94 171/94 07/25/20 19:50 91 T-Piece 10.0 60 07/25/20 16:00 98.6 99 24 151/84 (106) 92 07/25/20 16:00 104 07/25/20 13:55 90 T-Piece 10.0 60 07/25/20 12:00 92 07/25/20 12:00 98.1 96 22 150/85 (106) 92 07/25/20 09:00 Trach Collar 10.0 07/25/20 09:00 101 07/25/20 08:33 93 135/80 07/25/20 08:00 98.8 95 18 119/83 (95) 91 07/25/20 07:25 90 T-Piece 8.0 35 07/25/20 04:00 98.7 99 24 137/78 (97) 91 07/25/20 04:00 95 07/25/20 01:24 96 T-Piece 8.0 35 07/25/20 00:00 94 07/25/20 00:00 99.3 95 24 131/72 (91) 94 ROS: unchanged from 07/14/20 HEENT: Thick Trach secretions RHYTHM: NSR, ST, PACs, Afib LUNGS: bilateral rhonchi, other - decreased BS left base CARDIAC: normal S1 and S2, rapid rate, arrhythmia ABDOMEN: normal bowel sounds, soft, G-Tube intact EXTREMITIES: normal range of motion, non-tender, trace edema, other - withdrawn Laboratory Tests Test 07/25/20 04:00 07/25/20 18:50 White Blood Count 6.9 K/UL (4.8-10.8) Red Blood Count 3.02 M/UL (4.70-6.10) L Hemoglobin 8.7 G/DL (14.2-18.0) L Hematocrit 26.5 % (42.0-52.0) L Mean Corpuscular Volume 88 FL (80-99) Mean Corpuscular Hemoglobin 29.0 PG (27.0-31.0) Mean Corpuscular Hemoglobin Concent 33.0 G/DL (32.0-36.0) Red Cell Distribution Width 17.9 % (11.6-14.8) H Platelet Count 301 K/UL (150-450) Mean Platelet Volume 6.1 FL (6.5-10.1) L Neutrophils (%) (Auto) 75.5 % (45.0-75.0) H Lymphocytes (%) (Auto) 14.1 % (20.0-45.0) L Monocytes (%) (Auto) 7.0 % (1.0-10.0) Eosinophils (%) (Auto) 2.9 % (0.0-3.0) Basophils (%) (Auto) 0.5 % (0.0-2.0) Sodium Level 141 MMOL/L (136-145) Potassium Level 4.4 MMOL/L (3.5-5.1) Chloride Level 109 MMOL/L (98-107) H Carbon Dioxide Level 31 MMOL/L (21-32) Anion Gap 1 mmol/L (5-15) L Blood Urea Nitrogen 31 mg/dL (7-18) H Creatinine 1.1 MG/DL (0.55-1.30) Estimat Glomerular Filtration Rate > 60 mL/min (>60) Glucose Level 115 MG/DL (74-106) H Calcium Level 8.3 MG/DL (8.5-10.1) L Magnesium Level 1.8 MG/DL (1.8-2.4) Total Bilirubin 0.2 MG/DL (0.2-1.0) Aspartate Amino Transf (AST/SGOT) 23 U/L (15-37) Alanine Aminotransferase (ALT/SGPT) 24 U/L (12-78) Alkaline Phosphatase 161 U/L (46-116) H Pro-B-Type Natriuretic Peptide 7308 pg/mL (0-125) H Total Protein 6.2 G/DL (6.4-8.2) L Albumin 0.9 G/DL (3.4-5.0) L Globulin 5.3 g/dL Albumin/Globulin Ratio 0.2 (1.0-2.7) L Random Vancomycin Level 14.0 ug/mL Assessment/Plan Assessment/Plan Healthcare associated PNA Paroxysmal atrial fibrillation/flutter Paroxysmal atrial ectopy 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 Dyslipidemia on high dose statin - now dose adjusted Dehydration/hypernatremia Severe protein-calorie malnutrition Possible left pleural effusion Add'l beta blockade added. Abx Resp support Cardiac monitoring Continue full anticoagulation Statin dose adjusted Amiodarone at loading dose again. Dylan Mak MD Jul 25, 2020 22:06
[2020-07-25] MEDS: Metoprolol Tartrate 50mg tab ORAL SCH (22:30)
[2020-07-26] VITALS: BP 160/91
[2020-07-26 04:00] VITALS: BP 159/96
[2020-07-26] MEDS: D5 1/2NS 1,000 ML IV SCH ×2 (04:23→17:43)
[2020-07-26 06:08] LABS: BASOPHILS % (AUTO) 0.5 % (0.0-2.0); EOSINOPHILS % (AUTO) 2.9 % (0.0-3.0); HEMATOCRIT 29.7 % (42.0-52.0); HEMOGLOBIN 9.5 G/DL (14.2-18.0); LYMPHOCYTES % (AUTO) 12.4 % (20.0-45.0); MEAN CORPUSCULAR VOLUME 89 FL (80-99); MONOCYTES % (AUTO) 6.4 % (1.0-10.0); NEUTROPHILS % (AUTO) 77.8 % (45.0-75.0); PLATELET COUNT 348 K/UL (150-450); RED BLOOD COUNT 3.34 M/UL (4.70-6.10); RED CELL DISTRIBUTION WIDTH 17.9 % (11.6-14.8); WHITE BLOOD COUNT 8.7 K/UL (4.8-10.8)
[2020-07-26 06:29] LABS: ALANINE AMINOTRANSFERASE 24 U/L (12-78); ALBUMIN 0.9 G/DL (3.4-5.0); ALBUMIN/GLOBULIN RATIO 0.2 (1.0-2.7); ALKALINE PHOSPHATASE 164 U/L (46-116); ANION GAP 3 mmol/L (5-15); ASPARTATE AMINO TRANSFERASE 18 U/L (15-37); BILIRUBIN,TOTAL 0.2 MG/DL (0.2-1.0); BLOOD UREA NITROGEN 30 mg/dL (7-18); CALCIUM 8.5 MG/DL (8.5-10.1); CARBON DIOXIDE 31 MMOL/L (21-32); CHLORIDE 110 MMOL/L (98-107); CREATININE 1.1 MG/DL (0.55-1.30); POTASSIUM 4.7 MMOL/L (3.5-5.1); SODIUM 144 MMOL/L (136-145)
--- NOTE | 2020-07-26 06:57 | General Progress Note ---
Subjective ROS Limited/Unobtainable: No Allergies: Coded Allergies: No Known Allergies (Unverified , 11/02/19) Objective Last 24 Hour Vital Signs Date Time Temp Pulse Resp B/P (MAP) Pulse Ox O2 Delivery O2 Flow Rate FiO2 07/26/20 05:22 159/96 07/26/20 04:00 98.9 109 24 159/96 (117) 92 07/26/20 04:00 105 07/26/20 01:14 94 T-Piece 10.0 60 07/26/20 00:00 99.3 90 22 160/91 (114) 95 07/26/20 00:00 92 07/25/20 22:30 102 157/94 07/25/20 21:00 Trach Collar 10.0 07/25/20 20:19 94 171/94 07/25/20 20:00 99.7 111 24 177/100 (125) 91 07/25/20 20:00 111 07/25/20 19:50 91 T-Piece 10.0 60 07/25/20 16:00 98.6 99 24 151/84 (106) 92 07/25/20 16:00 104 07/25/20 13:55 90 T-Piece 10.0 60 07/25/20 12:00 92 07/25/20 12:00 98.1 96 22 150/85 (106) 92 07/25/20 09:00 Trach Collar 10.0 07/25/20 09:00 101 07/25/20 08:33 93 135/80 07/25/20 08:00 98.8 95 18 119/83 (95) 91 07/25/20 07:25 90 T-Piece 8.0 35 Intake and Output 07/25/20 07/26/20 19:00 07:00 Output Total 1300 ml 1500 ml Balance -1300 ml -1500 ml Output Urine Total 1300 ml 1500 ml Laboratory Tests 07/25/20 18:50: Random Vancomycin Level 14.0 07/26/20 05:00: White Blood Count 8.7, Red Blood Count 3.34L, Hemoglobin 9.5L, Hematocrit 29.7L, Mean Corpuscular Volume 89, Mean Corpuscular Hemoglobin 28.3, Mean Corpuscular Hemoglobin Concent 31.8L, Red Cell Distribution Width 17.9H, Platelet Count 348, Mean Platelet Volume 5.5L, Neutrophils (%) (Auto) 77.8H, Lymphocytes (%) (Auto) 12.4L, Monocytes (%) (Auto) 6.4, Eosinophils (%) (Auto) 2.9, Basophils (%) (Auto) 0.5, Sodium Level 144, Potassium Level 4.7, Chloride Level 110H, Carbon Dioxide Level 31, Anion Gap 3L, Blood Urea Nitrogen 30H, Creatinine 1.1, Estimat Glomerular Filtration Rate > 60, Glucose Level 117H, Calcium Level 8.5, Total Bilirubin 0.2, Aspartate Amino Transf (AST/SGOT) 18, Alanine Aminotransferase (ALT/SGPT) 24, Alkaline Phosphatase 164H, Total Protein 6.6, Albumin 0.9L, Globulin 5.7, Albumin/Globulin Ratio 0.2L Height (Feet): 5 Height (Inches): 4.00 Weight (Pounds): 171 General Appearance: lethargic EENT: normal ENT inspection Neck: supple Cardiovascular: normal rate Respiratory/Chest: decreased breath sounds Abdomen: hypoactive bowel sounds Extremities: non-tender Assessment/Plan Status: stable, progressing Assessment/Plan: Assessment - UGIB - resolved - Anemia, s/p transfusion - h/o PUD - resp failure, s/p trach - dysphagia, s/p PEG - atrial fibrillation - h/o DVT - EGD: - mild duodenitis - 7-8 mm pre-pyloric polypoid nodule with slight erosion at base - biopsied - GT in appropriate position - no large ulcer or active bleeding Recommendations - OK for anticoagulation - H2B BID indefinitely - TF - follow H&H>>>stable - If recurrent bleeding --> colonoscopy Kevin Garcias MD Jul 26, 2020 06:57
[2020-07-26 08:00] VITALS: BP 163/85
--- NOTE | 2020-07-26 08:22 | NUR ---
NURSE NOTES: pt is in bed and asleep. pt is on monitoring and evaluation advisor and Trach 10L O2, showing no signs of cardiac or respiratory distress. GT tube feeding is running, bed is locked and in lowest position, call light is within reach.
[2020-07-26] MEDS: Amiodarone 200mg tab GT SCH ×2 (10:08→18:19)
[2020-07-26] MEDS: Zinc Sulfate 220mg GT SCH (10:09)
[2020-07-26] MEDS: Ascorbic Acid 500mg tab GT SCH ×2 (10:09→18:19)
[2020-07-26] MEDS: Metoprolol Tartrate 50mg tab ORAL SCH ×2 (10:10→20:39)
[2020-07-26] MEDS: Dakin's 0.25% (Half Strength) 16oz TOPIC SCH (10:29)
--- NOTE | 2020-07-26 11:54 | General Progress Note ---
Subjective ROS Limited/Unobtainable: No Constitutional: Reports: malaise, weakness HEENT: Reports: no symptoms Cardiovascular: Reports: no symptoms Respiratory: Reports: cough, shortness of breath Gastrointestinal/Abdominal: Reports: difficulty swallowing Genitourinary: Reports: no symptoms Neurologic/Psychiatric: Reports: pre-existing deficit, seizure Endocrine: Reports: no symptoms Hematologic/Lymphatic: Reports: anemia Allergies: Coded Allergies: No Known Allergies (Unverified , 11/02/19) All Systems: reviewed and negative except above Subjective status quo. no significant changes. remains on t-bar. tolerating tube feeds. no reports or bleedinh. h/h trending up. poorly responsive at baseline Objective Last 24 Hour Vital Signs Date Time Temp Pulse Resp B/P (MAP) Pulse Ox O2 Delivery O2 Flow Rate FiO2 07/26/20 10:10 112 163/85 07/26/20 07:53 93 T-Piece 10.0 60 07/26/20 05:22 159/96 07/26/20 04:00 98.9 109 24 159/96 (117) 92 07/26/20 04:00 105 07/26/20 01:14 94 T-Piece 10.0 60 07/26/20 00:00 99.3 90 22 160/91 (114) 95 07/26/20 00:00 92 07/25/20 22:30 102 157/94 07/25/20 21:00 Trach Collar 10.0 07/25/20 20:19 94 171/94 07/25/20 20:00 99.7 111 24 177/100 (125) 91 07/25/20 20:00 111 07/25/20 19:50 91 T-Piece 10.0 60 07/25/20 16:00 98.6 99 24 151/84 (106) 92 07/25/20 16:00 104 07/25/20 13:55 90 T-Piece 10.0 60 07/25/20 12:00 92 07/25/20 12:00 98.1 96 22 150/85 (106) 92 Intake and Output 07/25/20 07/26/20 19:00 07:00 Output Total 1300 ml 1500 ml Balance -1300 ml -1500 ml Output Urine Total 1300 ml 1500 ml Laboratory Tests 07/25/20 18:50: Random Vancomycin Level 14.0 07/26/20 05:00: White Blood Count 8.7, Red Blood Count 3.34L, Hemoglobin 9.5L, Hematocrit 29.7L, Mean Corpuscular Volume 89, Mean Corpuscular Hemoglobin 28.3, Mean Corpuscular Hemoglobin Concent 31.8L, Red Cell Distribution Width 17.9H, Platelet Count 348, Mean Platelet Volume 5.5L, Neutrophils (%) (Auto) 77.8H, Lymphocytes (%) (Auto) 12.4L, Monocytes (%) (Auto) 6.4, Eosinophils (%) (Auto) 2.9, Basophils (%) (Auto) 0.5, Sodium Level 144, Potassium Level 4.7, Chloride Level 110H, Carbon Dioxide Level 31, Anion Gap 3L, Blood Urea Nitrogen 30H, Creatinine 1.1, Estimat Glomerular Filtration Rate > 60, Glucose Level 117H, Calcium Level 8.5, Total Bilirubin 0.2, Aspartate Amino Transf (AST/SGOT) 18, Alanine Aminotransferase (ALT/SGPT) 24, Alkaline Phosphatase 164H, Total Protein 6.6, Albumin 0.9L, Globulin 5.7, Albumin/Globulin Ratio 0.2L Height (Feet): 5 Height (Inches): 4.00 Weight (Pounds): 171 Objective General Appearance: WD/WN, confused EENT: normal ENT inspection Neck: normal alignment Cardiovascular: normal rate, regular rhythm Respiratory/Chest: rhonchi - bilaterally Abdomen: normal bowel sounds, non tender, soft, no organomegaly Edema: no edema noted Leg (L), no edema noted Leg (R) Neurologic: disoriented, aphasia Skin: normal pigmentation Assessment/Plan Problem List: (1) Anemia ICD Codes: D64.9 - Anemia, unspecified SNOMED: 988951442, 996207973 Qualifiers: Qualified Codes: D64.9 - Anemia, unspecified (2) Pleural effusion, left ICD Codes: J90 - Pleural effusion, not elsewhere classified SNOMED: 04270020, 254619164 (3) Malfunction of gastrostomy tube ICD Codes: K94.23 - Gastrostomy malfunction SNOMED: 010465109 (4) Acute respiratory failure with hypoxia ICD Codes: J96.01 - Acute respiratory failure with hypoxia SNOMED: 70163467, 839898380 (5) HCAP (healthcare-associated pneumonia) ICD Codes: J18.9 - Pneumonia, unspecified organism SNOMED: 113438131, 952000924 Status: stable, progressing Assessment/Plan: monitor off abx trach care resp rx Continue suctioning as needed Continue tube feeds chest PT monitor for fever Monitor H&H. DVT and stress ulcer prophylaxis Monitor on telemetry for recurrent atrial fibrillation. rate control per cards dc planning Angel Jaramillo MD Jul 26, 2020 11:54
[2020-07-26 12:00] VITALS: BP 137/81
--- NOTE | 2020-07-26 12:02 | Surgery Progress Note ---
Surgery Progress Note Subjective Symptoms: improved, tolerating diet, passing flatus Objective Last 24 Hour Vital Signs Date Time Temp Pulse Resp B/P (MAP) Pulse Ox O2 Delivery O2 Flow Rate FiO2 07/26/20 10:10 112 163/85 07/26/20 07:53 93 T-Piece 10.0 60 07/26/20 05:22 159/96 07/26/20 04:00 98.9 109 24 159/96 (117) 92 07/26/20 04:00 105 07/26/20 01:14 94 T-Piece 10.0 60 07/26/20 00:00 99.3 90 22 160/91 (114) 95 07/26/20 00:00 92 07/25/20 22:30 102 157/94 07/25/20 21:00 Trach Collar 10.0 07/25/20 20:19 94 171/94 07/25/20 20:00 99.7 111 24 177/100 (125) 91 07/25/20 20:00 111 07/25/20 19:50 91 T-Piece 10.0 60 07/25/20 16:00 98.6 99 24 151/84 (106) 92 07/25/20 16:00 104 07/25/20 13:55 90 T-Piece 10.0 60 I&O Intake and Output 07/25/20 07/26/20 19:00 07:00 Output Total 1300 ml 1500 ml Balance -1300 ml -1500 ml Output Urine Total 1300 ml 1500 ml Dressing: saturated Cardiovascular: RSR Respiratory: decreased breath sounds Abdomen: non-tender, present bowel sounds, non-distended Extremities: no tenderness, no cyanosis Laboratory Tests Test 07/25/20 18:50 07/26/20 05:00 Random Vancomycin Level 14.0 ug/mL White Blood Count 8.7 K/UL (4.8-10.8) Red Blood Count 3.34 M/UL (4.70-6.10) L Hemoglobin 9.5 G/DL (14.2-18.0) L Hematocrit 29.7 % (42.0-52.0) L Mean Corpuscular Volume 89 FL (80-99) Mean Corpuscular Hemoglobin 28.3 PG (27.0-31.0) Mean Corpuscular Hemoglobin Concent 31.8 G/DL (32.0-36.0) L Red Cell Distribution Width 17.9 % (11.6-14.8) H Platelet Count 348 K/UL (150-450) Mean Platelet Volume 5.5 FL (6.5-10.1) L Neutrophils (%) (Auto) 77.8 % (45.0-75.0) H Lymphocytes (%) (Auto) 12.4 % (20.0-45.0) L Monocytes (%) (Auto) 6.4 % (1.0-10.0) Eosinophils (%) (Auto) 2.9 % (0.0-3.0) Basophils (%) (Auto) 0.5 % (0.0-2.0) Sodium Level 144 MMOL/L (136-145) Potassium Level 4.7 MMOL/L (3.5-5.1) Chloride Level 110 MMOL/L (98-107) H Carbon Dioxide Level 31 MMOL/L (21-32) Anion Gap 3 mmol/L (5-15) L Blood Urea Nitrogen 30 mg/dL (7-18) H Creatinine 1.1 MG/DL (0.55-1.30) Estimat Glomerular Filtration Rate > 60 mL/min (>60) Glucose Level 117 MG/DL (74-106) H Calcium Level 8.5 MG/DL (8.5-10.1) Total Bilirubin 0.2 MG/DL (0.2-1.0) Aspartate Amino Transf (AST/SGOT) 18 U/L (15-37) Alanine Aminotransferase (ALT/SGPT) 24 U/L (12-78) Alkaline Phosphatase 164 U/L (46-116) H Total Protein 6.6 G/DL (6.4-8.2) Albumin 0.9 G/DL (3.4-5.0) L Globulin 5.7 g/dL Albumin/Globulin Ratio 0.2 (1.0-2.7) L Plan Problems: (1) Decubitus skin ulcer Assessment & Plan: Pt presented on admission with PV shunt,Tracheostomy, Contractures and multiple Pressure Injuries.Skin assessed under tracheal collar. Skin is erythematous but without any open wounds. GT site is red and excoriated.Scattered senile purpuras bilat upper extremities. Full thickness Sacral Pressure Injury(L)11.8cm x (W)8cm. Base of wound is 75% mixed necrosis and slough,20% antonio. Bone is palpable at base. Edges are macerated. Mild odor noted. Small amt brown exudate noted. Periwound is indurated and maroon with additional erythema and scattered Partial thickness shearing. Full Thickness Pressure Injury L trochanteric with undermined borders.(L)5cm x (W)7cm x (D)2.6cm, undermining clockwise 11-2 by 4.2cm @11o'clock. Base of wound is 75%% mixed necrosis and slough,25% antonio. Wound has appearance of two wounds secondary necrotic bridge.In addition, periwound at clockwise 10-2o'clock the base is necrotic and fluctuant with marginal erythema. Small amt malodorous haemopurulent exudate noted. Full thickness Pressure Injury L Ischium(L)3.5cm x (W)2.0cm. Base of wound is 80% slough,20% antonio. Surrounding necrotic borders that are fluctuant.Small amt sanguineous exudate. Mild odor noted. Full thickness Pressure Injury lateral L Tibia to L lateral Malleolus(L)24.5cm x (W)3.5cm. Base of wound is antonio with scattered necrosis and slough, tendon exposure. Semi-detached borders that indurated and macerated with an area of soft necrosis at proximal borders of wound. Small amt haemopurulent exudate noted. No odor noted. Full thickness Pressure Injury L Heel(L)10.3cm x (W)7.5cm. Base of wound is 60% necrotic,10% slough,30% antonio. Bone is palpable. Borders are indurated with a portion of borders rolled giving heel a shaved appearance. Moderate amt haemopurulent exudate. Mild odor noted.Periwound is purpuric and fluctuant. Full thickness Pressure Injury medial/lateral L foot(L)3.5cm x (W)3.5cm x (D)0.3 cm. Base of wound is antonio. Borders and periwound are purpuric and fluctuant.Small amt sanguineous exudate noted. Unstageable Pressure Injury Distal/Lateral L foot(L)2.7cm x (W)4.3cm. Base of wound is 80% soft necrosis,20% antonio. Edges are adherent to base of wound. Periwound is purpuric and fluctuant. Full thickness Pressure Injury R heel Plantar(L)8.5cm x (W)9cm. Base of pressure with scattered necrosis and slough,otherwise base of wound is antonio. Edges are macerated with surrounding necrosis. Small amt seropurulent exudate noted.Mild odor noted. Stable dry eschar dorsal R foot1.5cm x (W)1cm. Edges are adherent to base of wound. No erythema,induration or fluctuance periwound. Stable dry eschar distal/lateral R foot (L)0.8cm x (W)0.8cm. NO erythema,induration or fluctuance periwound. R foot is edematous. Tx.Plan: Cleanse Sacral wound with Dakin's Kristel 0.25%. Apply Dakin's moistened kerlix to wound. Apply Triad periwound. Cover with Optifoam drsg. Change Daily and prn. Cleanse L trochanteric Wound with Dakin's Kristel 0.25%. Loosely pack with Dakin's moistened Kerlix, Apply Moisture Barrier Periwound. Cover with Optifoam drsg Daily and prn. Cleanse R Ischial wound with Dakin's Kristel 0.25%. Apply Dakin's moistened gauze to wound. Apply Moisture Barrier Paste periwound. Cover with Optifoam drsg Daily and prn. Cleanse wounds Lateral R lower extremity, R Heel and Lateral R foot with Dakin's Kristel 0.25%. Place Dakin's Moistened gauze to wounds. Apply Triad Paste along edges of wound. Cover wounds with ABD Pads. Wrap with Kerlix from Base of toes. Cleanse wound R heel with Dakin's Kristel 0.25%. Apply Dakin's moistened Gauze to wound. Apply Triad Periwound. Cover with ABD PAd and wrap with Kerlix. Swab dry Eschar dorsal and Lateral aspect of R foot .Cover with Abd Pads and Wrap with Kerlix Daily and prn. Wash GT site with Soap and water. Apply Triad Paste Daily and prn(Leave Open to Air) Reposition at least every 2hours or as tolerated. Place Pillow Between Knees. Off-Load Heels with Pillow. APM/TERRIE Mattress overlay. (2) Anemia Assessment & Plan: trend h/h prbc prn (3) UTI (urinary tract infection) (4) Pleural effusion, left Assessment & Plan: Lungs: Hazy left lung attenuation could be due to consolidation, pulmonary edema; correlate with presentation. Retrocardiac atelectasis without or with consolidation. Pleural space: Small-moderate left pleural effusion with passive atelectasis. No pneumothorax. Heart: Unremarkable. No cardiomegaly. Mediastinum: Unremarkable. Bones/joints: No acute abnormality Tubes, lines and devices: Tracheostomy. Right upper extremity PICC tip in the mid SVC. IMPRESSION: 1. Tracheostomy. 2. Right upper extremity PICC tip in the mid SVC. 3. Small-moderate left pleural effusion with passive atelectasis. 4. Hazy left lung attenuation could be due to consolidation, pulmonary edema; correlate with presentation. 5. Retrocardiac atelectasis without or with consolidation. 6. Recommend CT chest with IV contrast to further characterize these findings. (5) Malfunction of gastrostomy tube Assessment & Plan: DAILY ESTIMATED NEEDS: Needs based on Wounds, pulmonary/ 74.5kg 25-30 kcals/kg 5156-9151 total kcals 1.5-2 g protein/kg 111-149 g total protein 25-30 mL/kg 0812-5550 total fluid mLs NUTRITION DIAGNOSIS: * Swallowing difficulty R/T dysphagia, h/o craniotomy, respiratory failure as evidenced by pt on T-collar, GJ tube dependent. * Increased kcal/prot/micronutrients needs R/T wound healing as evidenced by pt admitted w/ multiple advanced wounds at sacrum, BL heels, Lt leg, pending evaluation. CURRENT TF:Jevity 1.2 @ 60ml/hr x 24 hrs-> now Glucerna 1.2 ENTERAL NUTRITION RECOMMENDATIONS: Jevity 1.2 @ 65ml/hr x 24 hrs + Prosource 1pkt TID to provide 1560ml, 1872kcal, 86g+ 33g prot, 1259ml free water * Increase goal rate to 65ml/hr x 24 hrs to better meet est needs * Add Prosource 1pkt TID to meet increased protein needs * HOB over 30 degrees/ water flush 150ml q 6hrs without IVF ADDITIONAL RECOMMENDATIONS: * Calibrated bedscale wt * Wound Care: add Vit C 500mg BID, ZnSO4 220mg QD x 10 days Stevie BID * Monitor BGs, need for carb controlled TF * Monitor lytes, replete as needed (6) Acute respiratory failure with hypoxia (7) HCAP (healthcare-associated pneumonia) Deny Westfall Jul 26, 2020 12:02
--- NOTE | 2020-07-26 12:43 | Infectious Diseases Prog Note ---
Assessment/Plan Assessment/Plan A: 1. Possible aspiration pneumonia. COVID19 test is negative. 2. Urinary tract infection. 3. Hypertension. 4. Atrial fibrillation. 5. anemia 6. S/p tracheostomy 7. s/p GT 8. Left pleural effusion 9. Bacteremia with Staph epidermidis 10. ? PICC line infection 11. Left pleural effusion PLAN: 1. Observe off antibiotic 2. Consider thoracentesis 3. Remove PICC line before discharge Subjective ROS Limited/Unobtainable: Yes Allergies: Coded Allergies: No Known Allergies (Unverified , 11/02/19) Objective Last 24 Hour Vital Signs Date Time Temp Pulse Resp B/P (MAP) Pulse Ox O2 Delivery O2 Flow Rate FiO2 07/26/20 10:10 112 163/85 07/26/20 07:53 93 T-Piece 10.0 60 07/26/20 05:22 159/96 07/26/20 04:00 98.9 109 24 159/96 (117) 92 07/26/20 04:00 105 07/26/20 01:14 94 T-Piece 10.0 60 07/26/20 00:00 99.3 90 22 160/91 (114) 95 07/26/20 00:00 92 07/25/20 22:30 102 157/94 07/25/20 21:00 Trach Collar 10.0 07/25/20 20:19 94 171/94 07/25/20 20:00 99.7 111 24 177/100 (125) 91 07/25/20 20:00 111 07/25/20 19:50 91 T-Piece 10.0 60 07/25/20 16:00 98.6 99 24 151/84 (106) 92 07/25/20 16:00 104 07/25/20 13:55 90 T-Piece 10.0 60 Height (Feet): 5 Height (Inches): 4.00 Weight (Pounds): 171 HEENT: status post trach Respiratory/Chest: other - coarse sounds on T bar Cardiovascular: tachycardia, other - R arm PICC line Abdomen: soft, non tender, other - GT feeding Extremities: other - R arm edema Neurologic/Psychiatric: unresponsiveness, aphasia Laboratory Tests Test 07/25/20 18:50 07/26/20 05:00 Random Vancomycin Level 14.0 ug/mL White Blood Count 8.7 K/UL (4.8-10.8) Red Blood Count 3.34 M/UL (4.70-6.10) L Hemoglobin 9.5 G/DL (14.2-18.0) L Hematocrit 29.7 % (42.0-52.0) L Mean Corpuscular Volume 89 FL (80-99) Mean Corpuscular Hemoglobin 28.3 PG (27.0-31.0) Mean Corpuscular Hemoglobin Concent 31.8 G/DL (32.0-36.0) L Red Cell Distribution Width 17.9 % (11.6-14.8) H Platelet Count 348 K/UL (150-450) Mean Platelet Volume 5.5 FL (6.5-10.1) L Neutrophils (%) (Auto) 77.8 % (45.0-75.0) H Lymphocytes (%) (Auto) 12.4 % (20.0-45.0) L Monocytes (%) (Auto) 6.4 % (1.0-10.0) Eosinophils (%) (Auto) 2.9 % (0.0-3.0) Basophils (%) (Auto) 0.5 % (0.0-2.0) Sodium Level 144 MMOL/L (136-145) Potassium Level 4.7 MMOL/L (3.5-5.1) Chloride Level 110 MMOL/L (98-107) H Carbon Dioxide Level 31 MMOL/L (21-32) Anion Gap 3 mmol/L (5-15) L Blood Urea Nitrogen 30 mg/dL (7-18) H Creatinine 1.1 MG/DL (0.55-1.30) Estimat Glomerular Filtration Rate > 60 mL/min (>60) Glucose Level 117 MG/DL (74-106) H Calcium Level 8.5 MG/DL (8.5-10.1) Total Bilirubin 0.2 MG/DL (0.2-1.0) Aspartate Amino Transf (AST/SGOT) 18 U/L (15-37) Alanine Aminotransferase (ALT/SGPT) 24 U/L (12-78) Alkaline Phosphatase 164 U/L (46-116) H Total Protein 6.6 G/DL (6.4-8.2) Albumin 0.9 G/DL (3.4-5.0) L Globulin 5.7 g/dL Albumin/Globulin Ratio 0.2 (1.0-2.7) L Current Medications Medications (Trade) Dose Ordered Sig/Clvie Route PRN Reason Start Time Stop Time Status Last Admin Dose Admin Acetaminophen (Tylenol) 650 mg Q4H PRN GT Temp >100.5 07/18/20 09:30 08/17/20 09:29 07/24/20 10:12 Acetaminophen (Tylenol) 650 mg Q4H PRN RECTAL Temp >100.5 07/14/20 13:30 08/13/20 13:29 Amiodarone HCl (Cordarone) 200 mg BID GT 07/24/20 18:00 10/23/20 08:59 07/26/20 10:08 Ascorbic Acid (Vitamin C) 250 mg TWICE A DAY GT 07/16/20 18:00 08/15/20 17:59 07/26/20 10:09 Atorvastatin Calcium (Lipitor) 10 mg BEDTIME ORAL 07/24/20 21:00 10/22/20 20:59 07/25/20 20:18 Chlorhexidine Gluconate (Jennifer-Hex 2%) 1 applic DAILY@2000 TOPIC 07/17/20 20:00 10/15/20 19:59 07/25/20 20:17 Dextrose/Sodium Chloride 1,000 ml @ 75 mls/hr [id number] IV 07/14/20 17:30 08/13/20 17:29 07/26/20 04:23 Famotidine (Pepcid) 20 mg Q12HR GT 07/16/20 21:00 10/14/20 20:59 07/26/20 10:09 Finasteride (Proscar) 5 mg DAILY ORAL 07/15/20 09:00 10/13/20 08:59 07/26/20 10:10 Hydralazine HCl (Apresoline) 25 mg Q6H PRN GT SBP above 150 07/24/20 23:30 10/22/20 23:29 07/26/20 05:22 Levetiracetam (Keppra) 1,000 mg Q12HR ORAL 07/14/20 21:00 08/13/20 20:59 07/26/20 10:09 Metoprolol Tartrate (Lopressor) 50 mg Q12HR ORAL 07/25/20 22:15 4/8/21 22:14 07/26/20 10:10 Multivitamins (Multivitamins) 1 tab DAILY GT 07/17/20 09:00 08/16/20 08:59 07/26/20 10:09 Sodium Hypochlorite (Dakin's Half Strength) 1 applic DAILY TOPIC 07/16/20 13:00 08/15/20 12:59 07/26/20 10:29 Zinc Sulfate (Zinc Sulfate) 220 mg DAILY GT 07/17/20 09:00 07/27/20 08:59 07/26/20 10:09 Steve Nelson MD Jul 26, 2020 12:43
--- NOTE | 2020-07-26 12:47 | Pulmonology Progress Note ---
Subjective ROS Limited/Unobtainable: Yes Allergies: Coded Allergies: No Known Allergies (Unverified , 11/02/19) All Systems: reviewed and negative except above Objective Last 24 Hour Vital Signs Date Time Temp Pulse Resp B/P (MAP) Pulse Ox O2 Delivery O2 Flow Rate FiO2 07/26/20 10:10 112 163/85 07/26/20 07:53 93 T-Piece 10.0 60 07/26/20 05:22 159/96 07/26/20 04:00 98.9 109 24 159/96 (117) 92 07/26/20 04:00 105 07/26/20 01:14 94 T-Piece 10.0 60 07/26/20 00:00 99.3 90 22 160/91 (114) 95 07/26/20 00:00 92 07/25/20 22:30 102 157/94 07/25/20 21:00 Trach Collar 10.0 07/25/20 20:19 94 171/94 07/25/20 20:00 99.7 111 24 177/100 (125) 91 07/25/20 20:00 111 07/25/20 19:50 91 T-Piece 10.0 60 07/25/20 16:00 98.6 99 24 151/84 (106) 92 07/25/20 16:00 104 07/25/20 13:55 90 T-Piece 10.0 60 Intake and Output 07/25/20 07/26/20 19:00 07:00 Output Total 1300 ml 1500 ml Balance -1300 ml -1500 ml Output Urine Total 1300 ml 1500 ml Laboratory Tests 07/25/20 18:50: Random Vancomycin Level 14.0 07/26/20 05:00: White Blood Count 8.7, Red Blood Count 3.34L, Hemoglobin 9.5L, Hematocrit 29.7L, Mean Corpuscular Volume 89, Mean Corpuscular Hemoglobin 28.3, Mean Corpuscular Hemoglobin Concent 31.8L, Red Cell Distribution Width 17.9H, Platelet Count 348, Mean Platelet Volume 5.5L, Neutrophils (%) (Auto) 77.8H, Lymphocytes (%) (Auto) 12.4L, Monocytes (%) (Auto) 6.4, Eosinophils (%) (Auto) 2.9, Basophils (%) (Auto) 0.5, Sodium Level 144, Potassium Level 4.7, Chloride Level 110H, Carbon Dioxide Level 31, Anion Gap 3L, Blood Urea Nitrogen 30H, Creatinine 1.1, Estimat Glomerular Filtration Rate > 60, Glucose Level 117H, Calcium Level 8.5, Total Bilirubin 0.2, Aspartate Amino Transf (AST/SGOT) 18, Alanine Aminotransferase (ALT/SGPT) 24, Alkaline Phosphatase 164H, Total Protein 6.6, Albumin 0.9L, Globulin 5.7, Albumin/Globulin Ratio 0.2L Current Medications Medications (Trade) Dose Ordered Sig/Clive Route PRN Reason Start Time Stop Time Status Last Admin Dose Admin Acetaminophen (Tylenol) 650 mg Q4H PRN GT Temp >100.5 07/18/20 09:30 08/17/20 09:29 07/24/20 10:12 Acetaminophen (Tylenol) 650 mg Q4H PRN RECTAL Temp >100.5 07/14/20 13:30 08/13/20 13:29 Amiodarone HCl (Cordarone) 200 mg BID GT 07/24/20 18:00 10/23/20 08:59 07/26/20 10:08 Ascorbic Acid (Vitamin C) 250 mg TWICE A DAY GT 07/16/20 18:00 08/15/20 17:59 07/26/20 10:09 Atorvastatin Calcium (Lipitor) 10 mg BEDTIME ORAL 07/24/20 21:00 10/22/20 20:59 07/25/20 20:18 Chlorhexidine Gluconate (Jennifer-Hex 2%) 1 applic DAILY@2000 TOPIC 07/17/20 20:00 10/15/20 19:59 07/25/20 20:17 Dextrose/Sodium Chloride 1,000 ml @ 75 mls/hr [id number] IV 07/14/20 17:30 08/13/20 17:29 07/26/20 04:23 Famotidine (Pepcid) 20 mg Q12HR GT 07/16/20 21:00 10/14/20 20:59 07/26/20 10:09 Finasteride (Proscar) 5 mg DAILY ORAL 07/15/20 09:00 10/13/20 08:59 07/26/20 10:10 Hydralazine HCl (Apresoline) 25 mg Q6H PRN GT SBP above 150 07/24/20 23:30 10/22/20 23:29 07/26/20 05:22 Levetiracetam (Keppra) 1,000 mg Q12HR ORAL 07/14/20 21:00 08/13/20 20:59 07/26/20 10:09 Metoprolol Tartrate (Lopressor) 50 mg Q12HR ORAL 07/25/20 22:15 10/23/20 22:14 07/26/20 10:10 Multivitamins (Multivitamins) 1 tab DAILY GT 07/17/20 09:00 08/16/20 08:59 07/26/20 10:09 Sodium Hypochlorite (Dakin's Half Strength) 1 applic DAILY TOPIC 07/16/20 13:00 08/15/20 12:59 07/26/20 10:29 Zinc Sulfate (Zinc Sulfate) 220 mg DAILY GT 07/17/20 09:00 07/27/20 08:59 07/26/20 10:09 Assessment/Plan Assessment/Plan Pulmonary Progress Note Subjective HPI: Patient is a 69 year old man, Tracheostomy status, s/p previous Craniotomy, RCA occlusion, [employer] shunt, has Seizure history, GERD, GJ tube, h/o Hypertension, Atrial fibrillation,previous anemia, previous DVT and Pulmonary Embolism, recurrent left Pleural effusion. Chief complaint was complaint respiratory distress, had difficulty suctioning patient. No reported fever chills but no reported nausea vomiting or diarrhea. Nonverbal status. On AB/ID,[id number] 60% FIO2 Admitted with Pneumonia and small left pleural effusion, Covid 19 negative. Allergies: No Known Allergies Medications: Noted Past Medical History: Tracheostomy status, s/p previous Craniotomy, RCA occlusion, [employer] shunt, has Seizure history, GERD, GJ tube, h/o Hypertension, Atrial fibrillation,previous anemia, previous DVT and Pulmonary Embolism, recurrent left Pleural effusion. Past Surgical History: Craniotomy, Tracheostomy, G tube Pertinent Family History: NC Social History: NC All Other Systems: limited Objective Physical Exam Vital Signs Noted General Appearance: alert, mild distress, Chronically Ill Head: normocephalic, atraumatic Eyes: bilateral eye PERRL, bilateral eye EOMI ENT: hearing grossly normal, normal pharynx Neck: no meningismus, tracheotomy - Copious amount of secretion at trach site Respiratory: chest non-tender, rhonchi Cardiovascular: regular rate, rhythm, HS1, HS2 normal,no murmur Gastrointestinal: normal bowel sounds, non tender, no mass, no organomegaly, no bruit, non-distended Musculoskeletal: other - Contracted,decubitus LE ulcers Neurologic: no focal signs noted,no seizures Medical Decision Making Impression: Healthcare-associated pneumonia Acute respiratory failure with hypoxia Tracheostomy status Pleural effusion, left-recurrent Decubitus ulcers Urinary tract infection Anemia S/p previous Craniotomy, RCA occlusion, [employer] shunt Seizure history GERD, dysphagia s/p GJ tube h/o Hypertension h/o Atrial fibrillation Previous DVT and Pulmonary Embolism, Plan IV Antibiotics/ID J tube feeds O2 vis TC HHN Wound care nurse Surgery consultation ID Consultation Neurology following Cardiology Consultation KEY HOLDER Medications Monitor labs PPX Laboratory:noted EKG: Rate: tachycardiac Rhythm: NSR ST Segments: other - NSST changes Chest X-Ray: no pneumothorax, other - RLL infiltrate,small L effusion, LLL infiltrate Dylan Augustine MD Jul 26, 2020 12:47
--- NOTE | 2020-07-26 13:44 | NUR ---
NURSE NOTES:WOUND CARE FOLLOW-UP NOTES:Pt presented on admission with Multiple Pressure Injuries.Loose dry scab noted to L earlobe(L)1cm x (W)1.5cm. no erythema or fluctuance periwound. Peristomal Gt site previously documented as excoriated is resolving.Peristomal site is more pink with less erythema noted. Full Thickness Sacral Pressure Injury (L)8.5cm x (W)8cm. Wound is smaller in size. Base of wound is 95% necrotic,5% antonio.Bone is palpable at base of wound Edges are macerated. Wound is malodorous. Periwound is indurated and maroon in colour. Partial thickness wounds previously documented have resolved. Full Thickness Pressure Injury L trochanteric with overlapping necrotic Bridge giving wound appearance of two wounds (L)4.5cm x (W)7 x (D)2.6cm,Undermining clockwise 9-3 by 3.5cm@12o'clock. Base of wound is 75% necrotic,25% antonio.Bone is palpable at base. Small amt malodorous brown exudate.Marginal erythema along borders and periwound. Full Thickness Pressure Injury L Ischium(L)3cm x(W) 2cm. Base of wound is 75% dyeedf07% antonio . BOne is palpable at base of wound.Soft necrosis along borders and periwound. Full thickness Pressure Injury Lateral L tibia to Lateral Malleolus(L)25cm x (W)3.5cmx (D)1cm.Scattered areas of necrosis within base of wound. Tendon exposure noted . Semidetached borders that indurated and macerated. Mild odor noted.Smal amt seropurulent exudate. Full Thickness Pressure Injury L Heel(L)8.5cmcm x(W)8cm.Base of wound is 60%mixed necrosis and slough. 40% antonio. Borders are indurated,(+) Epibole along portion of edges. Heel has shaved appearance.Mild odor noted. Full Thickness Pressure Injury Medial/Lateral L foot(L)3cm x (W)1.8cmBase of wound is 50% necrotic,50% mixed slough and erythema. Mild odor noted. Small amt seropurulent exudate noted. Periwound is maroon and fluctuant. Unstageable Pressure Injury Distal/Lateral L foot (L)2cm x (W)3.7cm. Edges are adherent to base of wound. No erythema or fluctuance periwound. Unstageable Pressure Injury Medial L malleolus(L)1cm x (W)0.8cm. Base of wound is 80% necrotic,20% antonio. Marginal erythema along borders.NO odor or exudate noted. Full Thickness Pressure Injury R heel and plantar.(L)12cm x (W)12cm. Base of wound is 75% necrotic,25% antonio.Wound is malodorous. Mixed necrosis with maceration along borders. Periwound is maroon and fluctuant. Stable dry eschar dorsal R foot (L)0.5cm x (W)1cm. Stable dry eschar distal/lateral R foot(L)0.6cm x (W)0.8cm. Wound Tx orders are effectivwe and continued as ordered. All wound prevention protocols continued as care-planned.
[2020-07-26 16:00] VITALS: BP 133/77
[2020-07-26] MEDS: Acetaminophen 650mg/20.3ml GT PRN (16:56)
--- NOTE | 2020-07-26 18:09 | Cardiology Progress Note ---
Subjective DATE OF SERVICE: Jul 26, 2020 Withdrawn but alert with spontaneous eye movements. Monitor: Sinus arrhythmia with PAC's. No new paroxysms of AFib/flutter. Troponins now normalized CXR with large left pleural eff'n Objective Last 24 Hour Vital Signs Date Time Temp Pulse Resp B/P (MAP) Pulse Ox O2 Delivery O2 Flow Rate FiO2 07/26/20 17:26 100.4 07/26/20 16:00 99.4 107 21 133/77 (95) 94 07/26/20 13:23 94 T-Piece 10.0 60 07/26/20 12:00 98.8 99 19 137/81 (99) 93 07/26/20 10:10 112 163/85 07/26/20 08:00 98.4 112 20 163/85 (111) 91 07/26/20 07:53 93 T-Piece 10.0 60 07/26/20 05:22 159/96 07/26/20 04:00 98.9 109 24 159/96 (117) 92 07/26/20 04:00 105 07/26/20 01:14 94 T-Piece 10.0 60 07/26/20 00:00 99.3 90 22 160/91 (114) 95 07/26/20 00:00 92 07/25/20 22:30 102 157/94 07/25/20 21:00 Trach Collar 10.0 07/25/20 20:19 94 171/94 07/25/20 20:00 99.7 111 24 177/100 (125) 91 07/25/20 20:00 111 07/25/20 19:50 91 T-Piece 10.0 60 ROS: unchanged from 07/14/20 HEENT: Thick Trach secretions RHYTHM: NSR, ST, PACs, Afib LUNGS: bilateral rhonchi, other - decreased BS left base CARDIAC: normal S1 and S2, rapid rate, arrhythmia ABDOMEN: normal bowel sounds, soft, G-Tube intact EXTREMITIES: normal range of motion, non-tender, trace edema, other - withdrawn Laboratory Tests Test 07/25/20 18:50 07/26/20 05:00 Random Vancomycin Level 14.0 ug/mL White Blood Count 8.7 K/UL (4.8-10.8) Red Blood Count 3.34 M/UL (4.70-6.10) L Hemoglobin 9.5 G/DL (14.2-18.0) L Hematocrit 29.7 % (42.0-52.0) L Mean Corpuscular Volume 89 FL (80-99) Mean Corpuscular Hemoglobin 28.3 PG (27.0-31.0) Mean Corpuscular Hemoglobin Concent 31.8 G/DL (32.0-36.0) L Red Cell Distribution Width 17.9 % (11.6-14.8) H Platelet Count 348 K/UL (150-450) Mean Platelet Volume 5.5 FL (6.5-10.1) L Neutrophils (%) (Auto) 77.8 % (45.0-75.0) H Lymphocytes (%) (Auto) 12.4 % (20.0-45.0) L Monocytes (%) (Auto) 6.4 % (1.0-10.0) Eosinophils (%) (Auto) 2.9 % (0.0-3.0) Basophils (%) (Auto) 0.5 % (0.0-2.0) Sodium Level 144 MMOL/L (136-145) Potassium Level 4.7 MMOL/L (3.5-5.1) Chloride Level 110 MMOL/L (98-107) H Carbon Dioxide Level 31 MMOL/L (21-32) Anion Gap 3 mmol/L (5-15) L Blood Urea Nitrogen 30 mg/dL (7-18) H Creatinine 1.1 MG/DL (0.55-1.30) Estimat Glomerular Filtration Rate > 60 mL/min (>60) Glucose Level 117 MG/DL (74-106) H Calcium Level 8.5 MG/DL (8.5-10.1) Total Bilirubin 0.2 MG/DL (0.2-1.0) Aspartate Amino Transf (AST/SGOT) 18 U/L (15-37) Alanine Aminotransferase (ALT/SGPT) 24 U/L (12-78) Alkaline Phosphatase 164 U/L (46-116) H Total Protein 6.6 G/DL (6.4-8.2) Albumin 0.9 G/DL (3.4-5.0) L Globulin 5.7 g/dL Albumin/Globulin Ratio 0.2 (1.0-2.7) L Assessment/Plan Assessment/Plan Healthcare associated PNA Paroxysmal atrial fibrillation/flutter Paroxysmal atrial ectopy Hx ICB with craniotomy and SAP [employer]EL[employer] shunt Ac/chronic encephalopathy Seizure disorder Troponin leak; no signs of acute PR Trach status Dysphagia with GJ-Tube 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 Dyslipidemia on high dose statin - now dose adjusted Dehydration/hypernatremia Severe protein-calorie malnutrition Possible left pleural effusion Add'l beta blockade added. Abx Resp support Cardiac monitoring Continue full anticoagulation Statin dose adjusted Amiodarone at loading dose again. Dylan Mak MD Jul 26, 2020 18:09
--- NOTE | 2020-07-26 19:39 | NUR ---
NURSE NOTES: Pt. received from SELIN Nieto. Pt. nonverbal, sleeping, breathing even and unlabored via trach collar RT, no indications of respiratory distress, no indications of pain. PICC right upper arm intact, with D5 1/2 NS at 75cc. [place] with yellow urine draining well. Rectal tube intact, draining. Gtube with glucerna 1.2 at 60cc running. Bed low and locked, side rails x3 up, upper rails padded, head of bed elevated, bed alarm active, and call light in reach. Endorsed pt with low grade fever, will follow up.
--- NOTE | 2020-07-26 19:44 | NUR ---
NURSE HAND-OFF REPORT: Important Events on Shift:[] pt had a low grade fever of 100.4. cool measures placed and PRN acetaminophen. Patient Status: [] full code Diet: [] GT glucerna 1.2 Pending Orders: [] Pending Results/Labs:[] Pending MD notification:[] Latest Vital Signs: Temperature 100.4 , Pulse 106 , B/P 133 /77 , Respiratory Rate 21 , O2 SAT 94 , Trach Collar, O2 Flow Rate 10.0 . Vital Sign Comment: [] EKG Rhythm: Sinus Tachycardia Rhythm change?: N Notified?: N -Dr. Aubree VALDEZ Response: Message left await call Latest Ramirez Fall Score: 50 Fall Risk: High Risk Safety Measures: Call light Within Reach, Bed Alarm Zone 1, Side Rails Side Rails x2, Bed position Low and Locked. Fall Precautions: Yellow Socks Yellow Gown Patient Fall Education Report given to [].Matthew SMALLWOOD
[2020-07-26 20:00] VITALS: BP 123/68
[2020-07-26] MEDS: Dyna-Hex 2% Top Sol 2oz TOPIC SCH (20:38)
--- NOTE | 2020-07-26 23:43 | NUR ---
NURSE NOTES: Wound dressings changed and wound pictures taken.
[2020-07-27] VITALS: BP 125/87
[2020-07-27 04:00] VITALS: BP 126/70
[2020-07-27] MEDS: D5 1/2NS 1,000 ML IV SCH (06:00)
--- NOTE | 2020-07-27 06:26 | General Progress Note ---
Subjective ROS Limited/Unobtainable: No Allergies: Coded Allergies: No Known Allergies (Unverified , 11/02/19) Objective Last 24 Hour Vital Signs Date Time Temp Pulse Resp B/P (MAP) Pulse Ox O2 Delivery O2 Flow Rate FiO2 07/27/20 04:00 98.4 98 20 126/70 (88) 97 07/27/20 04:00 98 07/27/20 00:50 95 T-Piece 10.0 60 07/27/20 00:00 98.6 96 20 125/87 (100) 98 07/27/20 00:00 96 07/26/20 21:00 Trach Collar 10.0 07/26/20 20:39 105 123/68 07/26/20 20:00 99.9 105 22 123/68 (86) 90 07/26/20 20:00 104 07/26/20 19:38 94 T-Piece 10.0 60 07/26/20 17:26 100.4 07/26/20 16:00 99.4 107 21 133/77 (95) 94 07/26/20 16:00 106 07/26/20 13:23 94 T-Piece 10.0 60 07/26/20 12:00 98.8 99 19 137/81 (99) 93 07/26/20 12:00 99 07/26/20 10:10 112 163/85 07/26/20 09:00 Trach Collar 10.0 07/26/20 08:00 106 07/26/20 08:00 98.4 112 20 163/85 (111) 91 07/26/20 07:53 93 T-Piece 10.0 60 Intake and Output 07/26/20 07/27/20 19:00 07:00 Intake Total 660 ml 750 ml Output Total 1100 ml 750 ml Balance -440 ml 0 ml IV Total 750 ml Tube Feeding 660 ml Output Urine Total 1100 ml 750 ml # Voids 1 Height (Feet): 5 Height (Inches): 4.00 Weight (Pounds): 171 General Appearance: no apparent distress EENT: normal ENT inspection Neck: supple Cardiovascular: normal rate Respiratory/Chest: decreased breath sounds Abdomen: normal bowel sounds, non tender, soft Extremities: non-tender Assessment/Plan Status: stable, progressing Assessment/Plan: Assessment - UGIB - resolved - Anemia, s/p transfusion - h/o PUD - resp failure, s/p trach - dysphagia, s/p PEG - atrial fibrillation - h/o DVT - EGD: - mild duodenitis - 7-8 mm pre-pyloric polypoid nodule with slight erosion at base - biopsied - GT in appropriate position - no large ulcer or active bleeding Recommendations - OK for anticoagulation - H2B BID indefinitely - TF - follow H&H>>>stable - If recurrent bleeding --> colonoscopy Kevin Garcias MD Jul 27, 2020 06:26
--- NOTE | 2020-07-27 07:10 | NUR ---
NURSE HAND-OFF REPORT: Important Events on Shift:[wound care provided, wound pictures taken. satting well on trach collar. tolerating gtube feedings] Patient Status: stable Diet: glucerna 1.2 Pending Orders: na Pending Results/Labs:na Pending MD notification:follow up with primary for anticoagulants Latest Vital Signs: Temperature 98.4 , Pulse 98 , B/P 126 /70 , Respiratory Rate 20 , O2 SAT 97 , Trach Collar, O2 Flow Rate 10.0 . Vital Sign Comment: stable EKG Rhythm: Sinus Rhythm Rhythm change?: N Notified?: N -Dr. Aubree VALDEZ Response: Message left await call Latest Ramirez Fall Score: 50 Fall Risk: High Risk Safety Measures: Call light Within Reach, Bed Alarm Zone 1, Side Rails Side Rails x2, Bed position Low and Locked. Fall Precautions: Yellow Socks Yellow Gown Patient Fall Education Report given to SELIN Nieto.
--- NOTE | 2020-07-27 07:37 | NUR ---
NURSE NOTES: pt is in bed and asleep. GT tube is running, no residual noted. IV is patent running fluids, no signs of phlebitis or infiltration. Pt is on trach oxygen, 10 L. pt is on ekg monitor, showing no signs of cardiac distress. folet catheter and rectal tube is draining.
[2020-07-27 08:00] VITALS: BP 146/87
[2020-07-27] MEDS: Amiodarone 200mg tab GT SCH ×2 (10:10→17:46)
[2020-07-27] MEDS: Ascorbic Acid 500mg tab GT SCH ×2 (10:11→17:46)
[2020-07-27] MEDS: Zinc Sulfate 220mg GT SCH (10:12)
[2020-07-27] MEDS: Metoprolol Tartrate 50mg tab ORAL SCH ×2 (10:13→20:39)
[2020-07-27] MEDS: Dakin's 0.25% (Half Strength) 16oz TOPIC SCH (10:16)
[2020-07-27 12:00] VITALS: BP 140/93
--- NOTE | 2020-07-27 12:14 | General Progress Note ---
Subjective ROS Limited/Unobtainable: No Constitutional: Reports: malaise, weakness HEENT: Reports: no symptoms Cardiovascular: Reports: no symptoms Respiratory: Reports: shortness of breath, sputum Gastrointestinal/Abdominal: Reports: difficulty swallowing Genitourinary: Reports: no symptoms Neurologic/Psychiatric: Reports: paresthesia, pre-existing deficit Endocrine: Reports: no symptoms Hematologic/Lymphatic: Reports: no symptoms Allergies: Coded Allergies: No Known Allergies (Unverified , 11/02/19) All Systems: reviewed and negative except above Subjective status quo. no significant change. remains on t-bar. tolerating tube feeds. no vomiting. +bowel movements. no reports or bleeding. h/h trending up. poorly responsive at baseline Objective Last 24 Hour Vital Signs Date Time Temp Pulse Resp B/P (MAP) Pulse Ox O2 Delivery O2 Flow Rate FiO2 07/27/20 10:13 67 146/87 07/27/20 08:00 98 07/27/20 08:00 98.6 67 20 146/87 (106) 97 07/27/20 07:52 96 T-Piece 10.0 60 07/27/20 04:00 98.4 98 20 126/70 (88) 97 07/27/20 04:00 98 07/27/20 00:50 95 T-Piece 10.0 60 07/27/20 00:00 98.6 96 20 125/87 (100) 98 07/27/20 00:00 96 07/26/20 21:00 Trach Collar 10.0 07/26/20 20:39 105 123/68 07/26/20 20:00 99.9 105 22 123/68 (86) 90 07/26/20 20:00 104 07/26/20 19:38 94 T-Piece 10.0 60 07/26/20 17:26 100.4 07/26/20 16:00 99.4 107 21 133/77 (95) 94 07/26/20 16:00 106 07/26/20 13:23 94 T-Piece 10.0 60 Intake and Output 07/26/20 07/27/20 19:00 07:00 Intake Total 660 ml 1510 ml Output Total 1100 ml 750 ml Balance -440 ml 760 ml Intake Free Water 100 ml IV Total 750 ml Tube Feeding 660 ml 660 ml Output Urine Total 1100 ml 750 ml # Voids 1 Height (Feet): 5 Height (Inches): 4.00 Weight (Pounds): 171 Objective General Appearance: WD/WN, confused EENT: normal ENT inspection Neck: normal alignment Cardiovascular: normal rate, regular rhythm Respiratory/Chest: rhonchi - bilaterally Abdomen: normal bowel sounds, non tender, soft, no organomegaly Edema: no edema noted Leg (L), no edema noted Leg (R) Neurologic: disoriented, aphasia Skin: normal pigmentation Assessment/Plan Problem List: (1) Anemia ICD Codes: D64.9 - Anemia, unspecified SNOMED: 446565520, 180091357 Qualifiers: Qualified Codes: D64.9 - Anemia, unspecified (2) Pleural effusion, left ICD Codes: J90 - Pleural effusion, not elsewhere classified SNOMED: 35429172, 755977485 (3) Malfunction of gastrostomy tube ICD Codes: K94.23 - Gastrostomy malfunction SNOMED: 168001407 (4) Acute respiratory failure with hypoxia ICD Codes: J96.01 - Acute respiratory failure with hypoxia SNOMED: 33010108, 134599764 (5) HCAP (healthcare-associated pneumonia) ICD Codes: J18.9 - Pneumonia, unspecified organism SNOMED: 030296838, 264623536 Status: stable, progressing Assessment/Plan: monitor off abx trach care resp rx Continue suctioning as needed Continue tube feeds chest PT monitor for fever Monitor H&H. DVT and stress ulcer prophylaxis Monitor on telemetry for recurrent atrial fibrillation. rate control per cards dc ivf resume eliquis monitor for bleeding dc planning Angel Jaramillo MD Jul 27, 2020 12:14
--- NOTE | 2020-07-27 13:42 | Surgery Progress Note ---
Surgery Progress Note Subjective Additional Comments pt is in bed and asleep. GT tube is running, no residual noted. Pt is on trach oxygen, 10 L Objective Last 24 Hour Vital Signs Date Time Temp Pulse Resp B/P (MAP) Pulse Ox O2 Delivery O2 Flow Rate FiO2 07/27/20 10:13 67 146/87 07/27/20 08:00 98 07/27/20 08:00 98.6 67 20 146/87 (106) 97 07/27/20 07:52 96 T-Piece 10.0 60 07/27/20 04:00 98.4 98 20 126/70 (88) 97 07/27/20 04:00 98 07/27/20 00:50 95 T-Piece 10.0 60 07/27/20 00:00 98.6 96 20 125/87 (100) 98 07/27/20 00:00 96 07/26/20 21:00 Trach Collar 10.0 07/26/20 20:39 105 123/68 07/26/20 20:00 99.9 105 22 123/68 (86) 90 07/26/20 20:00 104 07/26/20 19:38 94 T-Piece 10.0 60 07/26/20 17:26 100.4 07/26/20 16:00 99.4 107 21 133/77 (95) 94 07/26/20 16:00 106 I&O Intake and Output 07/26/20 07/27/20 19:00 07:00 Intake Total 660 ml 1510 ml Output Total 1100 ml 750 ml Balance -440 ml 760 ml Intake Free Water 100 ml IV Total 750 ml Tube Feeding 660 ml 660 ml Output Urine Total 1100 ml 750 ml # Voids 1 Dressing: saturated Cardiovascular: RSR Respiratory: decreased breath sounds Abdomen: soft, non-tender, present bowel sounds Extremities: no edema, no tenderness, no cyanosis Plan Problems: (1) Decubitus skin ulcer Assessment & Plan: Pt presented on admission with PV shunt,Tracheostomy, Contractures and multiple Pressure Injuries.Skin assessed under tracheal collar. Skin is erythematous but without any open wounds. GT site is red and excoriated.Scattered senile purpuras bilat upper extremities. Full thickness Sacral Pressure Injury(L)11.8cm x (W)8cm. Base of wound is 75% mixed necrosis and slough,20% antonio. Bone is palpable at base. Edges are macerated. Mild odor noted. Small amt brown exudate noted. Periwound is indur ated and maroon with additional erythema and scattered Partial thickness shearing. Full Thickness Pressure Injury L trochanteric with undermined borders.(L)5cm x (W)7cm x (D)2.6cm, undermining clockwise 11-2 by 4.2cm @11o'clock. Base of wound is 75%% mixed necrosis and slough,25% antonio. Wound has appearance of two wounds secondary necrotic bridge.In addition, periwound at clockwise 10-2o'clock the base is necrotic and fluctuant with marginal erythema. Small amt malodorous haemopurulent exudate noted. Full thickness Pressure Injury L Ischium(L)3.5cm x (W)2.0cm. Base of wound is 80% slough,20% antonio. Surrounding necrotic borders that are fluctuant.Small amt sanguineous exudate. Mild odor noted. Full thickness Pressure Injury lateral L Tibia to L lateral Malleolus(L)24.5cm x (W)3.5cm. Base of wound is antonio with scattered necrosis and slough, tendon exposure. Semi-detached borders that indurated and macerated with an area of soft necrosis at proximal borders of wound. Small amt haemopurulent exudate noted. No odor noted. Full thickness Pressure Injury L Heel(L)10.3cm x (W)7.5cm. Base of wound is 60% necrotic,10% slough,30% antonio. Bone is palpable. Borders are indurated with a portion of borders rolled giving heel a shaved appearance. Moderate amt haemopurulent exudate. Mild odor noted.Periwound is purpuric and fluctuant. Full thickness Pressure Injury medial/lateral L foot(L)3.5cm x (W)3.5cm x (D)0.3cm. Base of wound is antonio. Borders and periwound are purpuric and fluctuant.Small amt sanguineous exudate noted. Unstageable Pressure Injury Distal/Lateral L foot(L)2.7cm x (W)4.3cm. Base of wound is 80% soft necrosis,20% antonio. Edges are adherent to base of wound. Periwound is purpuric and fluctuant. Full thickness Pressure Injury R heel Plantar(L)8.5cm x (W)9cm. Base of pressure with scattered necrosis and slough,otherwise base of wound is antonio. Edges are macerated with surrounding necrosis. Small amt seropurulent exudate noted.Mild odor noted. Stable dry eschar dorsal R foot1.5cm x (W)1cm. Edges are adherent to base of wound. No erythema,induration or fluctuance periwound. Stable dry eschar distal/lateral R foot (L)0.8cm x (W)0.8cm. NO e rythema,induration or fluctuance periwound. R foot is edematous. Tx.Plan: Cleanse Sacral wound with Dakin's Kristel 0.25%. Apply Dakin's moistened kerlix to wound. Apply Triad periwound. Cover with Optifoam drsg. Change Daily and prn. Cleanse L trochanteric Wound with Dakin's Kristel 0.25%. Loosely pack with Dakin's moistened Kerlix, Apply Moisture Barrier Periwound. Cover with Optifoam drsg Daily and prn. Cleanse R Ischial wound with Dakin's Kristel 0.25%. Apply Dakin's moistened gauze to wound. Apply Moisture Barrier Paste periwound. Cover with Optifoam drsg Daily and prn. Cleanse wounds Lateral R lower extremity, R Heel and Lateral R foot with Dakin's Kristel 0.25%. Place Dakin's Moistened gauze to wounds. Apply Triad Paste along edges of wound. Cover wounds with ABD Pads. Wrap with Kerlix from Base of toes. Cleanse wound R heel with Dakin's Kristel 0.25%. Apply Dakin's moistened Gauze to wound. Apply Triad Periwound. Cover with ABD PAd and wrap with Kerlix. Swab dry Eschar dorsal and Lateral aspect of R foot .Cover with Abd Pads and Wrap with Kerlix Daily and prn. Wash GT site with Soap and water. Apply Triad Paste Daily and prn( Leave Open to Air) Reposition at least every 2hours or as tolerated. Place Pillow Between Knees. Off-Load Heels with Pillow. APM/TERRIE Mattress overlay. (2) Anemia Assessment & Plan: trend h/h prbc prn (3) UTI (urinary tract infection) (4) Pleural effusion, left Assessment & Plan: Lungs: Hazy left lung attenuation could be due to consolidation, pulmonary edema; correlate with presentation. Retrocardiac atelectasis without or with consolidation. Pleural space: Small-moderate left pleural effusion with passive atelectasis. No pneumothorax. Heart: Unremarkable. No cardiomegaly. Mediastinum: Unremarkable. Bones/joints: No acute abnormality Tubes, lines and devices: Tracheostomy. Right upper extremity PICC tip in the mid SVC. IMPRESSION: 1. Tracheostomy. 2. Right upper extremity PICC tip in the mid SVC. 3. Small-moderate left pleural effusion with passive atelectasis. 4. Hazy left lung attenuation could be due to consolidation, pulmonary edema; correlate with presentation. 5. Retrocardiac atelectasis without or with consolidation. 6. Recommend CT chest with IV contrast to further characterize these findings. (5) Malfunction of gastrostomy tube Assessment & Plan: DAILY ESTIMATED NEEDS: Needs based on Wounds, pulmonary/ 74.5kg 25-30 kcals/kg 7173-0134 total kcals 1.5-2 g protein/kg 111-149 g total protein 25-30 mL/kg 0236-0960 total fluid mLs NUTRITION DIAGNOSIS: * Swallowing difficulty R/T dysphagia, h/o craniotomy, respiratory failure as evidenced by pt on T-collar, GJ tube dependent. * Increased kcal/prot/micronutrients needs R/T wound healing as evidenced by pt admitted w/ multiple advanced wounds at sacrum, BL heels, Lt leg, pending evaluation. CURRENT TF:Jevity 1.2 @ 60ml/hr x 24 hrs-> now Glucerna 1.2 ENTERAL NUTRITION RECOMMENDATIONS: Jevity 1.2 @ 65ml/hr x 24 hrs + Prosource 1pkt TID to provide 1560ml, 1872kcal, 86g+ 33g prot, 1259ml free water * Increase goal rate to 65ml/hr x 24 hrs to better meet est needs * Add Prosource 1pkt TID to meet increased protein needs * HOB over 30 degrees/ water flush 150ml q 6hrs without IVF ADDITIONAL RECOMMENDATIONS: * Calibrated bedscale wt * Wound Care: add Vit C 500mg BID, ZnSO4 220mg QD x 10 days Stevie BID * Monitor BGs, need for carb controlled TF * Monitor lytes, replete as needed (6) Acute respiratory failure with hypoxia (7) HCAP (healthcare-associated pneumonia) eDny Westfall Jul 27, 2020 13:42
[2020-07-27 16:00] VITALS: BP 141/61
--- NOTE | 2020-07-27 16:17 | Pulmonology Progress Note ---
Subjective ROS Limited/Unobtainable: Yes Allergies: Coded Allergies: No Known Allergies (Unverified , 11/02/19) All Systems: reviewed and negative except above Objective Last 24 Hour Vital Signs Date Time Temp Pulse Resp B/P (MAP) Pulse Ox O2 Delivery O2 Flow Rate FiO2 07/27/20 13:54 95 T-Piece 10.0 60 07/27/20 12:00 88 07/27/20 10:13 67 146/87 07/27/20 08:00 98 07/27/20 08:00 98.6 67 20 146/87 (106) 97 07/27/20 07:52 96 T-Piece 10.0 60 07/27/20 04:00 98.4 98 20 126/70 (88) 97 07/27/20 04:00 98 07/27/20 00:50 95 T-Piece 10.0 60 07/27/20 00:00 98.6 96 20 125/87 (100) 98 07/27/20 00:00 96 07/26/20 21:00 Trach Collar 10.0 07/26/20 20:39 105 123/68 07/26/20 20:00 99.9 105 22 123/68 (86) 90 07/26/20 20:00 104 07/26/20 19:38 94 T-Piece 10.0 60 07/26/20 17:26 100.4 Intake and Output 07/26/20 07/27/20 19:00 07:00 Intake Total 660 ml 1510 ml Output Total 1100 ml 750 ml Balance -440 ml 760 ml Intake Free Water 100 ml IV Total 750 ml Tube Feeding 660 ml 660 ml Output Urine Total 1100 ml 750 ml # Voids 1 Current Medications Medications (Trade) Dose Ordered Sig/Clive Route PRN Reason Start Time Stop Time Status Last Admin Dose Admin Acetaminophen (Tylenol) 650 mg Q4H PRN GT Temp >100.5 07/18/20 09:30 08/17/20 09:29 07/26/20 16:56 Acetaminophen (Tylenol) 650 mg Q4H PRN RECTAL Temp >100.5 07/14/20 13:30 08/13/20 13:29 Amiodarone HCl (Cordarone) 200 mg BID GT 07/24/20 18:00 10/23/20 08:59 07/27/20 10:10 Apixaban (Eliquis) 2.5 mg BID ORAL 07/27/20 18:00 10/25/20 17:59 Ascorbic Acid (Vitamin C) 250 mg TWICE A DAY GT 07/16/20 18:00 08/15/20 17:59 07/27/20 10:11 Atorvastatin Calcium (Lipitor) 10 mg BEDTIME ORAL 07/24/20 21:00 10/22/20 20:59 07/26/20 20:38 Chlorhexidine Gluconate (Jennifer-Hex 2%) 1 applic DAILY@1999 TOPIC 07/17/20 20:00 10/15/20 19:59 07/26/20 20:38 Famotidine (Pepcid) 20 mg Q12HR GT 07/16/20 21:00 10/14/20 20:59 07/27/20 10:15 Finasteride (Proscar) 5 mg DAILY ORAL 07/15/20 09:00 10/13/20 08:59 07/27/20 10:12 Hydralazine HCl (Apresoline) 25 mg Q6H PRN GT SBP above 150 07/24/20 23:30 10/22/20 23:29 07/26/20 05:22 Levetiracetam (Keppra) 1,000 mg Q12HR ORAL 07/14/20 21:00 08/13/20 20:59 07/27/20 10:12 Metoprolol Tartrate (Lopressor) 50 mg Q12HR ORAL 07/25/20 22:15 10/23/20 22:14 07/27/20 10:13 Multivitamins (Multivitamins) 1 tab DAILY GT 07/17/20 09:00 08/16/20 08:59 07/27/20 10:14 Sodium Hypochlorite (Dakin's Half Strength) 1 applic DAILY TOPIC 07/16/20 13:00 08/15/20 12:59 07/27/20 10:16 Zinc Sulfate (Zinc Sulfate) 220 mg DAILY GT 07/27/20 09:00 10/25/20 08:59 07/27/20 10:12 Assessment/Plan Assessment/Plan Pulmonary Progress Note Subjective HPI: Patient is a 69 year old man, Tracheostomy status, s/p previous Craniotomy, RCA occlusion, LENS CEMENTER shunt, has Seizure history, GERD, GJ tube, h/o Hypertension, Atrial fibrillation,previous anemia, previous DVT and Pulmonary Embolism, recurrent left Pleural effusion. Chief complaint was complaint respiratory distress, had difficulty suctioning patient. No reported fever chills but no reported nausea vomiting or diarrhea. Nonverbal status. On AB/ID,stable O2on 60% FIO2 TC Admitted with Pneumonia and small left pleural effusion, Covid 19 negative. Allergies: No Known Allergies Medications: Noted Past Medical History: Tracheostomy status, s/p previous Craniotomy, RCA occlusion, LENS CEMENTER shunt, has Seizure history, GERD, GJ tube, h/o Hypertension, Atrial fibrillation,previous anemia, previous DVT and Pulmonary Embolism, recurrent left Pleural effusion. Past Surgical History: Craniotomy, Tracheostomy, G tube Pertinent Family History: NC Social History: NC All Other Systems: limited Objective Physical Exam Vital Signs Noted General Appearance: alert, mild distress, Chronically Ill Head: normocephalic, atraumatic Eyes: bilateral eye PERRL, bilateral eye EOMI ENT: hearing grossly normal, normal pharynx Neck: no meningismus, tracheotomy - Copious amount of secretion at trach site Respiratory: chest non-tender, occasional rhonchi Cardiovascular: regular rate, rhythm, HS1, HS2 normal,no murmur Gastrointestinal: normal bowel sounds, non tender, no mass, no organomegaly, no bruit, non-distended Musculoskeletal: other - Contracted,decubitus LE ulcers Neurologic: no focal signs noted,no seizures Medical Decision Making Impression: Healthcare-associated pneumonia Acute respiratory failure with hypoxia Tracheostomy status Pleural effusion, left-recurrent Decubitus ulcers Urinary tract infection Anemia S/p previous Craniotomy, RCA occlusion, LENS CEMENTER shunt Seizure history GERD, dysphagia s/p GJ tube h/o Hypertension h/o Atrial fibrillation Previous DVT and Pulmonary Embolism, Plan IV Antibiotics/ID J tube feeds O2 vis TC HHN Rate control Wound care nurse Surgery consultation ID Consultation Neurology following Cardiology following [facility] Medications Monitor labs PPX Laboratory:noted EKG: Rate: tachycardiac Rhythm: NSR ST Segments: other - NSST changes Chest X-Ray: no pneumothorax, other - RLL infiltrate,small L effusion, LLL infiltrate Dylan Augustine MD Jul 27, 2020 16:17
[2020-07-27] MEDS: Eliquis 2.5mg tablet ORAL SCH (17:46)
--- NOTE | 2020-07-27 19:14 | NUR ---
NURSE NOTES: Pt. received from SELIN Nieto. Pt. asleep, breathing even and unlabored on trach collar at 10L O2, no indications of respiratory distress, no indications of pain. PICC right upper arm dressing CDI, saline locked. [place] intact and patent, draining yellow urine well. Rectal tube intact and collecting well. Gtube with glucerna 1.2 running well. Bed low and locked, side rails x3 up, bed alarm active, and call light in reach.
--- NOTE | 2020-07-27 19:39 | NUR ---
NURSE HAND-OFF REPORT: Important Events on Shift:[] pt is on eliquis Patient Status: [] full code Diet: [] GT gluecerna 1.2 Pending Orders: [] Pending Results/Labs:[] Pending MD notification:[] Latest Vital Signs: Temperature 98.8 , Pulse 96 , B/P 141 /61 , Respiratory Rate 20 , O2 SAT 97 , Trach Collar, O2 Flow Rate 10.0 . Vital Sign Comment: [] EKG Rhythm: Sinus Rhythm Rhythm change?: N Notified?: N -Dr. Aubree VALDEZ Response: Message left await call Latest Ramirez Fall Score: 50 Fall Risk: High Risk Safety Measures: Call light Within Reach, Bed Alarm Zone 1, Side Rails Side Rails x2, Bed position Low and Locked. Fall Precautions: Yellow Socks Yellow Gown Patient Fall Education Report given to []. Matthew SMALLWOOD
[2020-07-27 20:00] VITALS: BP 145/76
[2020-07-27] MEDS: Dyna-Hex 2% Top Sol 2oz TOPIC SCH (20:38)
[2020-07-28] VITALS: BP 116/82
--- NOTE | 2020-07-28 00:45 | Cardiology Progress Note ---
Subjective DATE OF SERVICE: Jul 27, 2020 Withdrawn but alert with spontaneous eye movements. BP parameters increasing. Monitor: Sinus arrhythmia with PAC's. No new paroxysms of AFib/flutter. Troponins now normalized CXR with large left pleural eff'n Objective Last 24 Hour Vital Signs Date Time Temp Pulse Resp B/P (MAP) Pulse Ox O2 Delivery O2 Flow Rate FiO2 07/27/20 21:00 Trach Collar 10.0 07/27/20 20:39 100 145/76 07/27/20 20:00 98.9 104 20 145/76 (99) 98 07/27/20 20:00 104 07/27/20 19:45 97 T-Piece 10.0 60 07/27/20 16:00 98.8 80 20 141/61 (87) 97 07/27/20 16:00 96 07/27/20 13:54 95 T-Piece 10.0 60 07/27/20 12:00 96.7 71 19 140/93 (109) 96 07/27/20 12:00 88 07/27/20 10:13 67 146/87 07/27/20 09:00 Trach Collar 10.0 07/27/20 08:00 98 07/27/20 08:00 98.6 67 20 146/87 (106) 97 07/27/20 07:52 96 T-Piece 10.0 60 07/27/20 04:00 98.4 98 20 126/70 (88) 97 07/27/20 04:00 98 07/27/20 00:50 95 T-Piece 10.0 60 ROS: unchanged from 07/14/20 HEENT: Thick Trach secretions RHYTHM: NSR, ST, PACs, Afib LUNGS: bilateral rhonchi, other - decreased BS left base CARDIAC: normal S1 and S2, rapid rate, arrhythmia ABDOMEN: normal bowel sounds, soft, G-Tube intact EXTREMITIES: normal range of motion, non-tender, trace edema, other - withdrawn Assessment/Plan Assessment/Plan Healthcare associated PNA Paroxysmal atrial fibrillation/flutter Paroxysmal atrial ectopy 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 Dyslipidemia on high dose statin - now dose adjusted Dehydration/hypernatremia Severe protein-calorie malnutrition Possible left pleural effusion Titrate beta blockade dose. Abx Resp support Cardiac monitoring Continue full anticoagulation Statin dose adjusted Amiodarone at loading dose again. Dylan Mak MD Jul 28, 2020 00:45
[2020-07-28 04:00] VITALS: BP 131/76
--- NOTE | 2020-07-28 06:49 | NUR ---
NURSE HAND-OFF REPORT: Important Events on Shift:[sacral dressings changed, satting well on trach collar, suctioning performed PRN] Patient Status: sleeping Diet: glucerna 1.2 Pending Orders: na Pending Results/Labs:na Pending notification:na Latest Vital Signs: Temperature 99.1 , Pulse 98 , B/P 131 /76 , Respiratory Rate 20 , O2 SAT 97 , Trach Collar, O2 Flow Rate 10.0 . Vital Sign Comment: stable EKG Rhythm: Sinus Rhythm Rhythm change?: N Notified?: N -Dr. Aubree VALDEZ Response: Message left await call Latest Ramirez Fall Score: 50 Fall Risk: High Risk Safety Measures: Call light Within Reach, Bed Alarm Zone 1, Side Rails Side Rails x2, Bed position Low and Locked. Fall Precautions: Yellow Socks Yellow Gown Patient Fall Education Report given to .
--- NOTE | 2020-07-28 07:20 | NUR ---
HAND-OFF: Report given to SELIN Nieto.
--- NOTE | 2020-07-28 07:51 | NUR ---
NURSE NOTES: pt is on trach 10L 60% FiO2, pt is aslee Addendum: 07/28/20 at 0754 by Gerson Renee RN pt is on trach 10L 60% FiO2, pt is asleep, GT tube is running 60 ml/hr, pt is on tobacco classer. no signs of respiratory or cardiac distress noted. valles catheter and rectal tube draining. PICC is patent, no signs of phlebitis, swelling.
[2020-07-28 08:00] VITALS: BP 146/77
--- NOTE | 2020-07-28 08:28 | Pulmonology Progress Note ---
Subjective ROS Limited/Unobtainable: Yes Allergies: Coded Allergies: No Known Allergies (Unverified , 11/02/19) All Systems: reviewed and negative except above Subjective CARE NOTED nonverbal on oxygen no distress trach collar Objective Last 24 Hour Vital Signs Date Time Temp Pulse Resp B/P (MAP) Pulse Ox O2 Delivery O2 Flow Rate FiO2 07/28/20 04:00 95 07/28/20 04:00 99.1 98 20 131/76 (94) 97 07/28/20 01:00 98 T-Piece 10.0 60 07/28/20 00:00 99.8 93 20 116/82 (93) 96 07/28/20 00:00 93 07/27/20 21:00 Trach Collar 10.0 07/27/20 20:39 100 145/76 07/27/20 20:00 98.9 104 20 145/76 (99) 98 07/27/20 20:00 104 07/27/20 19:45 97 T-Piece 10.0 60 07/27/20 16:00 98.8 80 20 141/61 (87) 97 07/27/20 16:00 96 07/27/20 13:54 95 T-Piece 10.0 60 07/27/20 12:00 96.7 71 19 140/93 (109) 96 07/27/20 12:00 88 07/27/20 10:13 67 146/87 07/27/20 09:00 Trach Collar 10.0 Intake and Output 07/27/20 07/28/20 19:00 07:00 Intake Total 660 ml 810 ml Output Total 1100 ml 800 ml Balance -440 ml 10 ml Intake Free Water 150 ml Tube Feeding 660 ml 660 ml Output Urine Total 1100 ml 800 ml Objective WDWN NAD awake chronically ill moderate breath sounds bilaterally without rhonchi or wheeze [id number] NABS nontender GT no CCE nonfocal weak wounds noted Current Medications Medications (Trade) Dose Ordered Sig/Clive Route PRN Reason Start Time Stop Time Status Last Admin Dose Admin Acetaminophen (Tylenol) 650 mg Q4H PRN GT Temp >100.5 07/18/20 09:30 08/17/20 09:29 07/26/20 16:56 Acetaminophen (Tylenol) 650 mg Q4H PRN RECTAL Temp >100.5 07/14/20 13:30 08/13/20 13:29 Amiodarone HCl (Cordarone) 200 mg BID GT 07/24/20 18:00 10/23/20 08:59 07/27/20 17:46 Apixaban (Eliquis) 2.5 mg BID ORAL 07/27/20 18:00 10/25/20 17:59 07/27/20 17:46 Ascorbic Acid (Vitamin C) 250 mg TWICE A DAY GT 07/16/20 18:00 08/15/20 17:59 07/27/20 17:46 Atorvastatin Calcium (Lipitor) 10 mg BEDTIME ORAL 07/24/20 21:00 10/22/20 20:59 07/27/20 20:38 Chlorhexidine Gluconate (Jennifer-Hex 2%) 1 applic DAILY@1999 TOPIC 07/17/20 20:00 10/15/20 19:59 07/27/20 20:38 Famotidine (Pepcid) 20 mg Q12HR GT 07/16/20 21:00 10/14/20 20:59 07/27/20 20:38 Finasteride (Proscar) 5 mg DAILY ORAL 07/15/20 09:00 10/13/20 08:59 07/27/20 10:12 Hydralazine HCl (Apresoline) 25 mg Q6H PRN GT SBP above 150 07/24/20 23:30 10/22/20 23:29 07/26/20 05:22 Levetiracetam (Keppra) 1,000 mg Q12HR ORAL 07/14/20 21:00 08/13/20 20:59 07/27/20 20:38 Metoprolol Tartrate (Lopressor) 50 mg Q12HR ORAL 07/25/20 22:15 10/23/20 22:14 07/27/20 20:39 Multivitamins (Multivitamins) 1 tab DAILY GT 07/17/20 09:00 08/16/20 08:59 07/27/20 10:14 Sodium Hypochlorite (Dakin's Half Strength) 1 applic DAILY TOPIC 07/16/20 13:00 08/15/20 12:59 07/27/20 10:16 Zinc Sulfate (Zinc Sulfate) 220 mg DAILY GT 07/27/20 09:00 10/25/20 08:59 07/27/20 10:12 Assessment/Plan Assessment/Plan Impression: Healthcare-associated pneumonia Acute respiratory failure with hypoxia Tracheostomy status Pleural effusion, left-recurrent Decubitus ulcers Urinary tract infection Anemia S/p previous Craniotomy, RCA occlusion, 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
[2020-07-28] MEDS: Amiodarone 200mg tab GT SCH ×2 (08:53→18:16)
[2020-07-28] MEDS: Metoprolol Tartrate 50mg tab ORAL SCH ×2 (08:53→20:57)
[2020-07-28] MEDS: Ascorbic Acid 500mg tab GT SCH ×2 (08:54→18:16)
[2020-07-28] MEDS: Eliquis 2.5mg tablet ORAL SCH ×2 (08:54→18:16)
[2020-07-28] MEDS: Zinc Sulfate 220mg GT SCH (08:54)
[2020-07-28] MEDS: Dakin's 0.25% (Half Strength) 16oz TOPIC SCH (09:10)
--- NOTE | 2020-07-28 11:32 | Infectious Diseases Prog Note ---
Assessment/Plan Assessment/Plan antibiotics : none A 1. aspiration pneumonia. COVID19 test is negative. 2. coag neg staph line sepsis s/p rx 3. Hypertension. 4. Atrial fibrillation. 5. anemia 6. respiratory failure S/p tracheostomy 7. Left pleural effusion P 1. observe off antibiotics 2. will follow up cultures Subjective ROS Limited/Unobtainable: Yes Allergies: Coded Allergies: No Known Allergies (Unverified , 11/02/19) Objective Last 24 Hour Vital Signs Date Time Temp Pulse Resp B/P (MAP) Pulse Ox O2 Delivery O2 Flow Rate FiO2 07/28/20 08:53 104 146/77 07/28/20 04:00 95 07/28/20 04:00 99.1 98 20 131/76 (94) 97 07/28/20 01:00 98 T-Piece 10.0 60 07/28/20 00:00 99.8 93 20 116/82 (93) 96 07/28/20 00:00 93 07/27/20 21:00 Trach Collar 10.0 07/27/20 20:39 100 145/76 07/27/20 20:00 98.9 104 20 145/76 (99) 98 07/27/20 20:00 104 07/27/20 19:45 97 T-Piece 10.0 60 07/27/20 16:00 98.8 80 20 141/61 (87) 97 07/27/20 16:00 96 07/27/20 13:54 95 T-Piece 10.0 60 07/27/20 12:00 96.7 71 19 140/93 (109) 96 07/27/20 12:00 88 Height (Feet): 5 Height (Inches): 4.00 Weight (Pounds): 171 HEENT: status post trach Respiratory/Chest: lungs clear Cardiovascular: normal rate, regular rhythm, no gallop/murmur Abdomen: soft, non tender, other - GT Extremities: no edema Current Medications Medications (Trade) Dose Ordered Sig/Clive Route PRN Reason Start Time Stop Time Status Last Admin Dose Admin Acetaminophen (Tylenol) 650 mg Q4H PRN GT Temp >100.5 07/18/20 09:30 08/17/20 09:29 07/26/20 16:56 Acetaminophen (Tylenol) 650 mg Q4H PRN RECTAL Temp >100.5 07/14/20 13:30 08/13/20 13:29 Amiodarone HCl (Cordarone) 200 mg BID GT 07/24/20 18:00 10/23/20 08:59 07/28/20 08:53 Apixaban (Eliquis) 2.5 mg BID ORAL 07/27/20 18:00 10/25/20 17:59 07/28/20 08:54 Ascorbic Acid (Vitamin C) 250 mg TWICE A DAY GT 07/16/20 18:00 08/15/20 17:59 07/28/20 08:54 Atorvastatin Calcium (Lipitor) 10 mg BEDTIME ORAL 07/24/20 21:00 10/22/20 20:59 07/27/20 20:38 Chlorhexidine Gluconate (Jennifer-Hex 2%) 1 applic DAILY@1999 TOPIC 07/17/20 20:00 10/15/20 19:59 07/27/20 20:38 Famotidine (Pepcid) 20 mg Q12HR GT 07/16/20 21:00 10/14/20 20:59 07/28/20 08:54 Finasteride (Proscar) 5 mg DAILY ORAL 07/15/20 09:00 10/13/20 08:59 07/28/20 08:54 Hydralazine HCl (Apresoline) 25 mg Q6H PRN GT SBP above 150 07/24/20 23:30 10/22/20 23:29 07/26/20 05:22 Levetiracetam (Keppra) 1,000 mg Q12HR ORAL 07/14/20 21:00 08/13/20 20:59 07/28/20 08:54 Metoprolol Tartrate (Lopressor) 50 mg Q12HR ORAL 07/25/20 22:15 10/23/20 22:14 07/28/20 08:53 Multivitamins (Multivitamins) 1 tab DAILY GT 07/17/20 09:00 08/16/20 08:59 07/28/20 08:54 Sodium Hypochlorite (Dakin's Half Strength) 1 applic DAILY TOPIC 07/16/20 13:00 08/15/20 12:59 07/28/20 09:10 Zinc Sulfate (Zinc Sulfate) 220 mg DAILY GT 07/27/20 09:00 10/25/20 08:59 07/28/20 08:54 Kristie Reina MD Jul 28, 2020 11:31
[2020-07-28 12:00] VITALS: BP 135/72
[2020-07-28 12:11] LABS: BASOPHILS % (AUTO) 0.4 % (0.0-2.0); EOSINOPHILS % (AUTO) 4.3 % (0.0-3.0); HEMATOCRIT 28.2 % (42.0-52.0); HEMOGLOBIN 8.6 G/DL (14.2-18.0); LYMPHOCYTES % (AUTO) 13.5 % (20.0-45.0); MEAN CORPUSCULAR VOLUME 93 FL (80-99); NEUTROPHILS % (AUTO) 74.8 % (45.0-75.0); PLATELET COUNT 346 K/UL (150-450); RED BLOOD COUNT 3.04 M/UL (4.70-6.10); RED CELL DISTRIBUTION WIDTH 17.4 % (11.6-14.8); WHITE BLOOD COUNT 8.2 K/UL (4.8-10.8)
[2020-07-28 12:14] LABS: ANION GAP 3 mmol/L (5-15); BLOOD UREA NITROGEN 33 mg/dL (7-18); CALCIUM 8.3 MG/DL (8.5-10.1); CARBON DIOXIDE 32 MMOL/L (21-32); CHLORIDE 111 MMOL/L (98-107); POTASSIUM 5.2 MMOL/L (3.5-5.1); SODIUM 146 MMOL/L (136-145)
--- NOTE | 2020-07-28 12:44 | NUR ---
RD ASSESSMENT & RECOMMENDATIONS SEE CARE ACTIVITY FOR COMPLETE ASSESSMENT DAILY ESTIMATED NEEDS: Needs based on Wounds, pulmonary/ 74.5kg 25-30 kcals/kg 2516-5936 total kcals 1.5-2 g protein/kg 111-149 g total protein 25-30 mL/kg 0705-3310 total fluid mLs NUTRITION DIAGNOSIS: * Swallowing difficulty R/T dysphagia, h/o craniotomy, respiratory failure as evidenced by pt on T-collar, GJ tube dependent. * Increased kcal/prot/micronutrients needs R/T wound healing as evidenced by pt admitted w/ multiple advanced wounds including full thickness wound x 7 and unstageable wounds x 2, refer to WC eval. CURRENT TF:Jevity 1.2 @ 60ml/hr x 24 hrs-> now Glucerna 1.2 ENTERAL NUTRITION RECOMMENDATIONS: Glucerna 1.2 @ 65ml/hr x 24 hrs + Prosource 1pkt TID to provide 1560ml, 1872kcal, 94g+ 33g prot, 1259ml free water * Increase goal rate to 65ml/hr x 24 hrs to better meet est needs * Add Prosource 1pkt TID to meet increased protein needs * HOB over 30 degrees/ water flush 150ml q 6hrs without IVF ADDITIONAL RECOMMENDATIONS: * Calibrated bedscale wt * Wound Care: Con't Vit C 500mg BID, ZnSO4 220mg QD x 10 days add Stevie BID * Monitor BGs, need for carb controlled TF -> now on Glucerna 1.2 * Monitor lytes, replete as needed
[2020-07-28] MEDS ORDERED: D5 1/2NS 1000ml IV ONE (13:41)
--- NOTE | 2020-07-28 13:43 | NUR ---
CASE MANAGEMENT:REVIEW SI;PNA. UTI. BACTEREMIA. UGIB. 99.2 104 20 146/77 96% 10L TRACH COLLAR FIO2 60% H/H 8.6/28.2 NA 146 K+ 5.2 BUN 33 IS;ELIQUIS PO BID LOPRESSOR GT Q12 AMIODARONE GT BID PEPCID GT Q12 KEPPRA GT Q12 TELE STATUS DCP;FROM HOME PLAN; TAPER O2 DC PLAN HOME WITH HOME HEALTH
[2020-07-28 16:00] VITALS: BP 132/69
--- NOTE | 2020-07-28 18:53 | General Progress Note ---
Subjective ROS Limited/Unobtainable: No Constitutional: Reports: malaise, weakness Allergies: Coded Allergies: No Known Allergies (Unverified , 11/02/19) All Systems: reviewed and negative except above Subjective status quo. no significant change. remains on t-bar. tolerating tube feeds. no vomiting. +bowel movements. no reports or bleeding. Na and K slightly higher today Objective Last 24 Hour Vital Signs Date Time Temp Pulse Resp B/P (MAP) Pulse Ox O2 Delivery O2 Flow Rate FiO2 07/28/20 16:00 91 07/28/20 16:00 98.4 97 24 132/69 (90) 97 07/28/20 13:55 96 T-Piece 10.0 60 07/28/20 12:00 98.2 98 28 135/72 (93) 96 07/28/20 12:00 90 07/28/20 09:00 Trach Collar 10.0 07/28/20 08:53 104 146/77 07/28/20 08:20 98 T-Piece 10.0 60 07/28/20 08:00 96.6 104 30 146/77 (100) 96 07/28/20 08:00 102 07/28/20 04:00 95 07/28/20 04:00 99.1 98 20 131/76 (94) 97 07/28/20 01:00 98 T-Piece 10.0 60 07/28/20 00:00 99.8 93 20 116/82 (93) 96 07/28/20 00:00 93 07/27/20 21:00 Trach Collar 10.0 07/27/20 20:39 100 145/76 07/27/20 20:00 98.9 104 20 145/76 (99) 98 07/27/20 20:00 104 07/27/20 19:45 97 T-Piece 10.0 60 Intake and Output 07/27/20 07/28/20 19:00 07:00 Intake Total 660 ml 810 ml Output Total 1100 ml 800 ml Balance -440 ml 10 ml Intake Free Water 150 ml Tube Feeding 660 ml 660 ml Output Urine Total 1100 ml 800 ml Laboratory Tests 07/28/20 11:35: White Blood Count 8.2, Red Blood Count 3.04L, Hemoglobin 8.6L, Hematocrit 28.2L, Mean Corpuscular Volume 93, Mean Corpuscular Hemoglobin 28.3, Mean Corpuscular Hemoglobin Concent 30.6L, Red Cell Distribution Width 17.4H, Platelet Count 346, Mean Platelet Volume 5.4L, Neutrophils (%) (Auto) 74.8, Lymphocytes (%) (Auto) 13.5L, Monocytes (%) (Auto) 7.0, Eosinophils (%) (Auto) 4.3H, Basophils (%) ( Auto) 0.4, Sodium Level 146H, Potassium Level 5.2H, Chloride Level 111H, Carbon Dioxide Level 32, Anion Gap 3L, Blood Urea Nitrogen 33H, Creatinine 1.0, Estimat Glomerular Filtration Rate > 60, Glucose Level 112H, Calcium Level 8.3L Height (Feet): 5 Height (Inches): 4.00 Weight (Pounds): 171 Objective General Appearance: WD/WN, confused EENT: normal ENT inspection Neck: normal alignment Cardiovascular: normal rate, regular rhythm Respiratory/Chest: rhonchi - bilaterally Abdomen: normal bowel sounds, non tender, soft, no organomegaly Edema: no edema noted Leg (L), no edema noted Leg (R) Neurologic: disoriented, aphasia Skin: normal pigmentation Assessment/Plan Problem List: (1) Anemia ICD Codes: D64.9 - Anemia, unspecified SNOMED: 817375841, 903883517 Qualifiers: Qualified Codes: D64.9 - Anemia, unspecified (2) Pleural effusion, left ICD Codes: J90 - Pleural effusion, not elsewhere classified SNOMED: 58226393, 845576913 (3) Malfunction of gastrostomy tube ICD Codes: K94.23 - Gastrostomy malfunction SNOMED: 587175950 (4) Acute respiratory failure with hypoxia ICD Codes: J96.01 - Acute respiratory failure with hypoxia SNOMED: 33875494, 801343404 (5) HCAP (healthcare-associated pneumonia) ICD Codes: J18.9 - Pneumonia, unspecified organism SNOMED: 445043034, 426876743 Status: stable, progressing Assessment/Plan: monitor off abx trach care resp rx Continue suctioning as needed Continue tube feeds chest PT monitor for fever Monitor H&H. DVT and stress ulcer prophylaxis Monitor on telemetry for recurrent atrial fibrillation. rate control per cards dc ivf resume eliquis monitor for bleeding repeat lytes/k tomorrow dc planning Angel Jaramillo MD Jul 28, 2020 18:53
--- NOTE | 2020-07-28 18:56 | Surgery Progress Note ---
Surgery Progress Note Subjective Additional Comments comfortable appearing no n/v no acute events Objective Last 24 Hour Vital Signs Date Time Temp Pulse Resp B/P (MAP) Pulse Ox O2 Delivery O2 Flow Rate FiO2 07/28/20 16:00 91 07/28/20 16:00 98.4 97 24 132/69 (90) 97 07/28/20 13:55 96 T-Piece 10.0 60 07/28/20 12:00 98.2 98 28 135/72 (93) 96 07/28/20 12:00 90 07/28/20 09:00 Trach Collar 10.0 07/28/20 08:53 104 146/77 07/28/20 08:20 98 T-Piece 10.0 60 07/28/20 08:00 96.6 104 30 146/77 (100) 96 07/28/20 08:00 102 07/28/20 04:00 95 07/28/20 04:00 99.1 98 20 131/76 (94) 97 07/28/20 01:00 98 T-Piece 10.0 60 07/28/20 00:00 99.8 93 20 116/82 (93) 96 07/28/20 00:00 93 07/27/20 21:00 Trach Collar 10.0 07/27/20 20:39 100 145/76 07/27/20 20:00 98.9 104 20 145/76 (99) 98 07/27/20 20:00 104 07/27/20 19:45 97 T-Piece 10.0 60 I&O Intake and Output 07/27/20 07/28/20 19:00 07:00 Intake Total 660 ml 810 ml Output Total 1100 ml 800 ml Balance -440 ml 10 ml Intake Free Water 150 ml Tube Feeding 660 ml 660 ml Output Urine Total 1100 ml 800 ml Dressing: saturated Cardiovascular: RSR Respiratory: decreased breath sounds Abdomen: soft, non-tender, present bowel sounds, non-distended Extremities: no edema, no tenderness, no cyanosis Laboratory Tests Test 07/28/20 11:35 White Blood Count 8.2 K/UL (4.8-10.8) Red Blood Count 3.04 M/UL (4.70-6.10) L Hemoglobin 8.6 G/DL (14.2-18.0) L Hematocrit 28.2 % (42.0-52.0) L Mean Corpuscular Volume 93 FL (80-99) Mean Corpuscular Hemoglobin 28.3 PG (27.0-31.0) Mean Corpuscular Hemoglobin Concent 30.6 G/DL (32.0-36.0) L Red Cell Distribution Width 17.4 % (11.6-14.8) H Platelet Count 346 K/UL (150-450) Mean Platelet Volume 5.4 FL (6.5-10.1) L Neutrophils (%) (Auto) 74.8 % (45.0-75.0) Lymphocytes (%) (Auto) 13.5 % (20.0-45.0) L Monocytes (%) (Auto) 7.0 % (1.0-10.0) Eosinophils (%) (Auto) 4.3 % (0.0-3.0) H Basophils (%) (Auto) 0.4 % (0.0-2.0) Sodium Level 146 MMOL/L (136-145) H Potassium Level 5.2 MMOL/L (3.5-5.1) H Chloride Level 111 MMOL/L (98-107) H Carbon Dioxide Level 32 MMOL/L (21-32) Anion Gap 3 mmol/L (5-15) L Blood Urea Nitrogen 33 mg/dL (7-18) H Creatinine 1.0 MG/DL (0.55-1.30) Estimat Glomerular Filtration Rate > 60 mL/min (>60) Glucose Level 112 MG/DL (74-106) H Calcium Level 8.3 MG/DL (8.5-10.1) L Plan Problems: (1) Decubitus skin ulcer Assessment & Plan: Pt presented on admission with PV shunt,Tracheostomy, Con tractures and multiple Pressure Injuries.Skin assessed under tracheal collar. Skin is erythematous but without any open wounds. GT site is red and excoriated.Scattered senile purpuras bilat upper extremities. Full thickness Sacral Pressure Injury(L)11.8cm x (W)8cm. Base of wound is 75% mixed necrosis and slough,20% antonio. Bone is palpable at base. Edges are macerated. Mild odor noted. Small amt brown exudate noted. Periwound is indurated and maroon with additional erythema and scattered Partial thickness sh earing. Full Thickness Pressure Injury L trochanteric with undermined borders.(L)5cm x (W)7cm x (D)2.6cm, undermining clockwise 11-2 by 4.2cm @11o'clock. Base of wound is 75%% mixed necrosis and slough,25% antonio. Wound has appearance of two wounds secondary necrotic bridge.In addition, periwound at clockwise 10-2o'clock the base is necrotic and fluctuant with marginal erythema. Small amt malodorous haemopurulent exudate noted. Full thickness Pressure Injury L Ischium(L)3.5cm x (W)2.0cm. Base of wound is 8 0% slough,20% antonio. Surrounding necrotic borders that are fluctuant.Small amt sanguineous exudate. Mild odor noted. Full thickness Pressure Injury lateral L Tibia to L lateral Malleolus(L)24.5cm x (W)3.5cm. Base of wound is antonio with scattered necrosis and slough, tendon exposure. Semi-detached borders that indurated and macerated with an area of soft necrosis at proximal borders of wound. Small amt haemopurulent exudate noted. No odor noted. Full thickness Pressure Injury L Heel(L)10.3cm x (W)7.5cm. Base of wound is 60% necrotic,10% slough,30% antonio. Bone is palpable. Borders are indurated with a portion of borders rolled giving heel a shaved appearance. Moderate amt haemopurulent exudate. Mild odor noted.Periwound is purpuric and fluctuant. Full thickness Pressure Injury medial/lateral L foot(L)3.5cm x (W)3.5cm x (D)0.3cm. Base of wound is antonio. Borders and periwound are purpuric and fluctuant.Small amt sanguineous exudate noted. Unstageable Pressure Injury Distal/Lateral L foot(L)2.7cm x (W)4.3cm. Base of wound is 80% soft necrosis,20% antonio. Edges are adherent to base of wound. Periwound is purpuric and fluctuant. Full thickness Pressure Injury R heel Plantar(L)8.5cm x (W)9cm. Base of pressure with scattered necrosis and slough,otherwise base of wound is antonio. Edges are macerated with surrounding necrosis. Small amt seropurulent exudate noted.Mild odor noted. Stable dry eschar dorsal R foot1.5cm x (W)1cm. Edges are adherent to base of wound. No erythema,induration or fluctuance periwound. Stable dry eschar distal/lateral R foot (L)0.8cm x (W)0.8cm. NO erythema,induration or fluctuance periwound. R foot is edematous. Tx.Plan: Cleanse Sacral wound with Dakin's Kristel 0.25%. Apply Dakin's moistened kerlix to wound. Apply Triad periwound. Cover with Optifoam drsg. Change Daily and prn. Cleanse L trochanteric Wound with Dakin's Kristel 0.25%. Loosely pack with Dakin's moistened Kerlix, Apply Moisture Barrier Periwound. Cover with Optifoam drsg Daily and prn. Cleanse R Ischial wound with Dakin's Kristel 0.25%. Apply Dakin's moistened gauze to wound. Apply Moisture Barrier Paste periwound. Cover with Optifoam drsg Daily and prn. Cleanse wounds Lateral R lower extremity, R Heel and Lateral R foot with Dakin's Kristel 0.25%. Place Dakin's Moistened gauze to wounds. Apply Triad Paste along edges of wound. Cover wounds with ABD Pads. Wrap with Kerlix from Base of toes. Cleanse wound R heel with Dakin's Kristel 0.25%. Apply Dakin's moistened Gauze to wound. Apply Triad Periwound. Cover with ABD PAd and wrap with Kerlix. Swab dry Eschar dorsal and Lateral aspect of R foot .Cover with Abd Pads and Wrap with Kerlix Daily and prn. Wash GT site with Soap and water. Apply Triad Paste Daily and prn(Leave Open to Air) Reposition at least every 2hours or as tolerated. Place Pillow Between Knees. Off-Load Heels with Pillow. APM/TERRIE Mattress overlay. (2) Anemia Assessment & Plan: trend h/h prbc prn (3) UTI (urinary tract infection) (4) Pleural effusion, left Assessment & Plan: Lungs: Hazy left lung attenuation could be due to consolidation, pulmonary edema; correlate with presentation. Retrocardiac atelectasis without or with consolidation. Pleural space: Small-moderate left pleural effusion with passive atelectasis. No pneumothorax. Heart: Unremarkable. No cardiomegaly. Mediastinum: Unremarkable. Bones/joints: No acute abnormality Tubes, lines and devices: Tracheostomy. Right upper extremity PICC tip in the mid SVC. IMPRESSION: 1. Tracheostomy. 2. Right upper extremity PICC tip in the mid SVC. 3. Small-moderate left pleural effusion with passive atelectasis. 4. Hazy left lung attenuation could be due to consolidation, pulmonary edema; correlate with presentation. 5. Retrocardiac atelectasis without or with consolidation. 6. Recommend CT chest with IV contrast to further characterize these findings. (5) Malfunction of gastrostomy tube Assessment & Plan: DAILY ESTIMATED NEEDS: Needs based on Wounds, pulmonary/ 74.5kg 25-30 kcals/kg 5315-6831 total kcals 1.5-2 g protein/kg 111-149 g total protein 25-30 mL/kg 2452-9804 total fluid mLs NUTRITION DIAGNOSIS: * Swallowing difficulty R/T dysphagia, h/o craniotomy, respiratory failure as evidenced by pt on T-collar, GJ tube dependent. * Increased kcal/prot/micronutrients needs R/T wound healing as evidenced by pt admitted w/ multiple advanced wounds including full thickness wound x 7 and unstageable wounds x 2, refer to eval. CURRENT TF:Jevity 1.2 @ 60ml/hr x 24 hrs-> now Glucerna 1.2 ENTERAL NUTRITION RECOMMENDATIONS: Glucerna 1.2 @ 65ml/hr x 24 hrs + Prosource 1pkt TID to provide 1560ml, 1872kca l, 94g+ 33g prot, 1259ml free water * Increase goal rate to 65ml/hr x 24 hrs to better meet est needs * Add Prosource 1pkt TID to meet increased protein needs * HOB over 30 degrees/ water flush 150ml q 6hrs without IVF ADDITIONAL RECOMMENDATIONS: * Calibrated bedscale wt * Wound Care: Con't Vit C 500mg BID, ZnSO4 220mg QD x 10 days add Stevie BID * Monitor BGs, need for carb controlled TF -> now on Glucerna 1.2 * Monitor lytes, replete as needed (6) Acute respiratory failure with hypoxia (7) HCAP (healthcare-associated pneumonia) Deny Westfall Jul 28, 2020 18:56
[2020-07-28 20:00] VITALS: BP 154/80
--- NOTE | 2020-07-28 20:05 | NUR ---
NURSE HAND-OFF REPORT: Important Events on Shift:[] n/a Patient Status: [] Diet: [] Pending Orders: [] Pending Results/Labs:[] Pending MD notification:[] Latest Vital Signs: Temperature 98.4 , Pulse 91 , B/P 132 /69 , Respiratory Rate 24 , O2 SAT 97 , Trach Collar, O2 Flow Rate 10.0 . Vital Sign Comment: [] EKG Rhythm: Sinus Rhythm Rhythm change?: N MD Notified?: N -Dr. Aubree VALDEZ Response: Message left await call Latest Ramirez Fall Score: 50 Fall Risk: High Risk Safety Measures: Call light Within Reach, Bed Alarm Zone 1, Side Rails Side Rails x2, Bed position Low and Locked. Fall Precautions: Yellow Socks Yellow Gown Patient Fall Education Report given to [].Aditya SMALLWOOD
--- NOTE | 2020-07-28 20:06 | NUR ---
NURSE NOTES: Pt received from SELIN Nieto. Pt is resting comfortably in bed and denies any pain. Pt has cardiac monitoring Afib afebrile and hypertensive; MD notified and made aware. Pt has Trach 10LPM breathing unlabored and asymptomatic. Pt has GT Glucerna 1.2 60ml/hr no residual and flushing well. Pt has rectal tube draining well to gravity. Pt has valles catheter 16 fr patent and draining well to gravity. Pt has KIZZY PICC Line SL patent with skin dry and intact. Bed is locked and in lowest position with call light within reach. Will continue to monitor.
[2020-07-28] MEDS: Dyna-Hex 2% Top Sol 2oz TOPIC SCH (20:57)
--- NOTE | 2020-07-28 21:29 | General Progress Note ---
Subjective Allergies: Coded Allergies: No Known Allergies (Unverified , 11/02/19) Subjective Above noted no further bleeding stools brown tolerating TF Objective Last 24 Hour Vital Signs Date Time Temp Pulse Resp B/P (MAP) Pulse Ox O2 Delivery O2 Flow Rate FiO2 07/28/20 20:57 88 133/88 07/28/20 16:00 91 07/28/20 16:00 98.4 97 24 132/69 (90) 97 07/28/20 13:55 96 T-Piece 10.0 60 07/28/20 12:00 98.2 98 28 135/72 (93) 96 07/28/20 12:00 90 07/28/20 09:00 Trach Collar 10.0 07/28/20 08:53 104 146/77 07/28/20 08:20 98 T-Piece 10.0 60 07/28/20 08:00 96.6 104 30 146/77 (100) 96 07/28/20 08:00 102 07/28/20 04:00 95 07/28/20 04:00 99.1 98 20 131/76 (94) 97 07/28/20 01:00 98 T-Piece 10.0 60 07/28/20 00:00 99.8 93 20 116/82 (93) 96 07/28/20 00:00 93 Intake and Output 07/27/20 07/28/20 19:00 07:00 Intake Total 660 ml 810 ml Output Total 1100 ml 800 ml Balance -440 ml 10 ml Intake Free Water 150 ml Tube Feeding 660 ml 660 ml Output Urine Total 1100 ml 800 ml Laboratory Tests 07/28/20 11:35: White Blood Count 8.2, Red Blood Count 3.04L, Hemoglobin 8.6L, Hematocrit 28.2L, Mean Corpuscular Volume 93, Mean Corpuscular Hemoglobin 28.3, Mean Corpuscular Hemoglobin Concent 30.6L, Red Cell Distribution Width 17.4H, Platelet Count 346, Mean Platelet Volume 5.4L, Neutrophils (%) (Auto) 74.8, Lymphocytes (%) (Auto) 13.5L, Monocytes (%) (Auto) 7.0, Eosinophils (%) (Auto) 4.3H, Basophils (%) (Auto) 0.4, Sodium Level 146H, Potassium Level 5.2H, Chloride Level 111H, Carbon Dioxide Level 32, Anion Gap 3L, Blood Urea Nitrogen 33H, Creatinine 1.0, Estimat Glomerular Filtration Rate > 60, Glucose Level 112H, Calcium Level 8.3L Height (Feet): 5 Height (Inches): 4.00 Weight (Pounds): 171 Objective Eldely WM NCAT (+) trach , T tube Coarse BS RRR abd soft (+) GT ext no edema Assessment/Plan Status: stable, progressing Assessment/Plan: Assessment - UGIB - resolved - Anemia, s/p transfusion - h/o PUD - resp failure, s/p trach - dysphagia, s/p PEG - atrial fibrillation - h/o DVT - EGD: - mild duodenitis - 7-8 mm pre-pyloric polypoid nodule with slight erosion at base - biopsied - GT in appropriate position - no large ulcer or active bleeding Recommendations - OK for anticoagulation - H2B BID indefinitely - TF - follow H&H - If recurrent bleeding --> colonoscopy Akiko Rai MD Jul 28, 2020 21:29
--- NOTE | 2020-07-28 22:06 | Cardiology Progress Note ---
Subjective DATE OF SERVICE: Jul 28, 2020 Withdrawn but alert with spontaneous eye movements. BP parameters stabilized. Monitor: Sinus arrhythmia with PAC's. No new paroxysms of AFib/flutter. Troponins now normalized Objective Last 24 Hour Vital Signs Date Time Temp Pulse Resp B/P (MAP) Pulse Ox O2 Delivery O2 Flow Rate FiO2 07/28/20 21:05 97 T-Piece 10.0 60 07/28/20 20:57 88 133/88 07/28/20 16:00 91 07/28/20 16:00 98.4 97 24 132/69 (90) 97 07/28/20 13:55 96 T-Piece 10.0 60 07/28/20 12:00 98.2 98 28 135/72 (93) 96 07/28/20 12:00 90 07/28/20 09:00 Trach Collar 10.0 07/28/20 08:53 104 146/77 07/28/20 08:20 98 T-Piece 10.0 60 07/28/20 08:00 96.6 104 30 146/77 (100) 96 07/28/20 08:00 102 07/28/20 04:00 95 07/28/20 04:00 99.1 98 20 131/76 (94) 97 07/28/20 01:00 98 T-Piece 10.0 60 07/28/20 00:00 99.8 93 20 116/82 (93) 96 07/28/20 00:00 93 ROS: unchanged from 07/14/20 HEENT: Thick Trach secretions RHYTHM: NSR, ST, PACs, Afib LUNGS: bilateral rhonchi, other - decreased BS left base CARDIAC: normal S1 and S2, rapid rate, arrhythmia ABDOMEN: normal bowel sounds, soft, G-Tube intact EXTREMITIES: normal range of motion, non-tender, trace edema, other - withdrawn Laboratory Tests Test 07/28/20 11:35 White Blood Count 8.2 K/UL (4.8-10.8) Red Blood Count 3.04 M/UL (4.70-6.10) L Hemoglobin 8.6 G/DL (14.2-18.0) L Hematocrit 28.2 % (42.0-52.0) L Mean Corpuscular Volume 93 FL (80-99) Mean Corpuscular Hemoglobin 28.3 PG (27.0-31.0) Mean Corpuscular Hemoglobin Concent 30.6 G/DL (32.0-36.0) L Red Cell Distribution Width 17.4 % (11.6-14.8) H Platelet Count 346 K/UL (150-450) Mean Platelet Volume 5.4 FL (6.5-10.1) L Neutrophils (%) (Auto) 74.8 % (45.0-75.0) Lymphocytes (%) (Auto) 13.5 % (20.0-45.0) L Monocytes (%) (Auto) 7.0 % (1.0-10.0) Eosinophils (%) (Auto) 4.3 % (0.0-3.0) H Basophils (%) (Auto) 0.4 % (0.0-2.0) Sodium Level 146 MMOL/L (136-145) H Potassium Level 5.2 MMOL/L (3.5-5.1) H Chloride Level 111 MMOL/L (98-107) H Carbon Dioxide Level 32 MMOL/L (21-32) Anion Gap 3 mmol/L (5-15) L Blood Urea Nitrogen 33 mg/dL (7-18) H Creatinine 1.0 MG/DL (0.55-1.30) Estimat Glomerular Filtration Rate > 60 mL/min (>60) Glucose Level 112 MG/DL (74-106) H Calcium Level 8.3 MG/DL (8.5-10.1) L Assessment/Plan Assessment/Plan Healthcare associated PNA Paroxysmal atrial fibrillation/flutter Paroxysmal atrial ectopy 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 Dyslipidemia on high dose statin - now dose adjusted Dehydration/hypernatremia Severe protein-calorie malnutrition Titrate beta blockade dose. Abx Resp support Cardiac monitoring Continue full anticoagulation Statin dose adjusted Amiodarone at loading dose for now Dylan Mak MD Jul 28, 2020 22:06
[2020-07-29] VITALS: BP 137/73
[2020-07-29 04:00] VITALS: BP 130/62
[2020-07-29 05:30] LABS: BASOPHILS % (AUTO) 0.6 % (0.0-2.0); EOSINOPHILS % (AUTO) 4.2 % (0.0-3.0); HEMATOCRIT 27.9 % (42.0-52.0); HEMOGLOBIN 9.1 G/DL (14.2-18.0); LYMPHOCYTES % (AUTO) 16.1 % (20.0-45.0); MEAN CORPUSCULAR VOLUME 88 FL (80-99); MONOCYTES % (AUTO) 7.2 % (1.0-10.0); NEUTROPHILS % (AUTO) 71.9 % (45.0-75.0); PLATELET COUNT 381 K/UL (150-450); RED BLOOD COUNT 3.16 M/UL (4.70-6.10); RED CELL DISTRIBUTION WIDTH 18.1 % (11.6-14.8); WHITE BLOOD COUNT 8.2 K/UL (4.8-10.8)
[2020-07-29 06:05] LABS: ALANINE AMINOTRANSFERASE 21 U/L (12-78); ALBUMIN/GLOBULIN RATIO 0.2 (1.0-2.7); ALKALINE PHOSPHATASE 140 U/L (46-116); ANION GAP 0 mmol/L (5-15); ASPARTATE AMINO TRANSFERASE 19 U/L (15-37); BILIRUBIN,TOTAL 0.3 MG/DL (0.2-1.0); BLOOD UREA NITROGEN 33 mg/dL (7-18); CALCIUM 7.9 MG/DL (8.5-10.1); CARBON DIOXIDE 35 MMOL/L (21-32); CHLORIDE 111 MMOL/L (98-107); POTASSIUM 5.2 MMOL/L (3.5-5.1); SODIUM 146 MMOL/L (136-145)
--- NOTE | 2020-07-29 06:38 | NUR ---
NURSE HAND-OFF REPORT: Important Events on Shift:Pt continued scheduled medications. Pt kept on 60%FiO2. Patient Status: Stable Diet: Glu 1.2 60 ml/hr Pending Orders: Pending Results/Labs:AM Labs Pending notification: Latest Vital Signs: Temperature 98.7 , Pulse 95 , B/P 137 /78 , Respiratory Rate 24 , O2 SAT 91 , Trach Collar, O2 Flow Rate 10.0 . Vital Sign Comment: VSS EKG Rhythm: Sinus Rhythm Rhythm change?: N Notified?: N -Dr. Aubree VALDEZ Response: Message left await call Latest Ramirez Fall Score: 50 Fall Risk: High Risk Safety Measures: Call light Within Reach, Bed Alarm Zone 1, Side Rails Side Rails x2, Bed position Low and Locked. Fall Precautions: Yellow Socks Yellow Gown Patient Fall Education Report given to SELIN Noonan.
--- NOTE | 2020-07-29 07:52 | NUR ---
NURSE NOTES: Received report from Brant/RN. Pt in bed, sleeping, in semi fowlers position. Pt has trach collar on 10L 60% FiO2, no distress or SOB noted. PICC line on right UA single lumen, patent and clean. Bed in the lowest position and locked, call light within reach, encouraged to use when needed. Side rails up X3. Will continue plan of care.
[2020-07-29 08:41] VITALS: BP 133/66
[2020-07-29] MEDS: Ascorbic Acid 500mg tab GT SCH ×2 (08:57→17:37)
[2020-07-29] MEDS: Zinc Sulfate 220mg GT SCH (08:57)
[2020-07-29] MEDS: Dakin's 0.25% (Half Strength) 16oz TOPIC SCH (08:58)
[2020-07-29] MEDS: Metoprolol Tartrate 50mg tab ORAL SCH ×2 (08:58→20:05)
[2020-07-29] MEDS: Amiodarone 200mg tab GT SCH ×2 (08:58→17:37)
[2020-07-29] MEDS: Eliquis 2.5mg tablet ORAL SCH ×2 (08:58→17:37)
--- NOTE | 2020-07-29 09:51 | Cardiology Progress Note ---
Subjective DATE OF SERVICE: Jul 29, 2020 Withdrawn but alert with spontaneous eye movements. BP parameters stabilized. Monitor: Sinus arrhythmia with PAC's. No new paroxysms of AFib/flutter. Troponins now normalized Na levels increasing. Objective Last 24 Hour Vital Signs Date Time Temp Pulse Resp B/P (MAP) Pulse Ox O2 Delivery O2 Flow Rate FiO2 07/29/20 08:58 94 133/66 07/29/20 08:41 96.8 94 20 133/66 (88) 98 07/29/20 06:48 96 T-Piece 10.0 60 07/29/20 04:00 97.9 61 24 130/62 (84) 99 07/29/20 03:27 94 07/29/20 00:58 98 T-Piece 10.0 60 07/29/20 00:00 98.2 96 28 137/73 (94) 95 07/29/20 00:00 91 07/28/20 21:05 97 T-Piece 10.0 60 07/28/20 21:00 Trach Collar 10.0 07/28/20 20:57 88 133/88 07/28/20 20:00 99.1 112 22 154/80 (104) 94 07/28/20 20:00 101 07/28/20 16:00 91 07/28/20 16:00 98.4 97 24 132/69 (90) 97 07/28/20 13:55 96 T-Piece 10.0 60 07/28/20 12:00 98.2 98 28 135/72 (93) 96 07/28/20 12:00 90 ROS: unchanged from 07/14/20 HEENT: Thick Trach secretions RHYTHM: NSR, ST, PACs, Afib LUNGS: bilateral rhonchi, other - decreased BS left base CARDIAC: normal S1 and S2, rapid rate, arrhythmia ABDOMEN: normal bowel sounds, soft, G-Tube intact EXTREMITIES: normal range of motion, non-tender, trace edema, other - withdrawn Laboratory Tests Test 07/28/20 11:35 07/29/20 04:00 White Blood Count 8.2 K/UL (4.8-10.8) 8.2 K/UL (4.8-10.8) Red Blood Count 3.04 M/UL (4.70-6.10) L 3.16 M/UL (4.70-6.10) L Hemoglobin 8.6 G/DL (14.2-18.0) L 9.1 G/DL (14.2-18.0) L Hematocrit 28.2 % (42.0-52.0) L 27.9 % (42.0-52.0) L Mean Corpuscular Volume 93 FL (80-99) 88 FL (80-99) Mean Corpuscular Hemoglobin 28.3 PG (27.0-31.0) 28.7 PG (27.0-31.0) Mean Corpuscular Hemoglobin Concent 30.6 G/DL (32.0-36.0) L 32.4 G/DL (32.0-36.0) Red Cell Distribution Width 17.4 % (11.6-14.8) H 18.1 % (11.6-14.8) H Platelet Count 346 K/UL (150-450) 381 K/UL (150-450) Mean Platelet Volume 5.4 FL (6.5-10.1) L 5.4 FL (6.5-10.1) L Neutrophils (%) (Auto) 74.8 % (45.0-75.0) 71.9 % (45.0-75.0) Lymphocytes (%) (Auto) 13.5 % (20.0-45.0) L 16.1 % (20.0-45.0) L Monocytes (%) (Auto) 7.0 % (1.0-10.0) 7.2 % (1.0-10.0) Eosinophils (%) (Auto) 4.3 % (0.0-3.0) H 4.2 % (0.0-3.0) H Basophils (%) (Auto) 0.4 % (0.0-2.0) 0.6 % (0.0-2.0) Sodium Level 146 MMOL/L (136-145) H 146 MMOL/L (136-145) H Potassium Level 5.2 MMOL/L (3.5-5.1) H 5.2 MMOL/L (3.5-5.1) H Chloride Level 111 MMOL/L (98-107) H 111 MMOL/L (98-107) H Carbon Dioxide Level 32 MMOL/L (21-32) 35 MMOL/L (21-32) H Anion Gap 3 mmol/L (5-15) L 0 mmol/L (5-15) L Blood Urea Nitrogen 33 mg/dL (7-18) H 33 mg/dL (7-18) H Creatinine 1.0 MG/DL (0.55-1.30) 1.0 MG/DL (0.55-1.30) Estimat Glomerular Filtration Rate > 60 mL/min (>60) > 60 mL/min (>60) Glucose Level 112 MG/DL (74-106) H 98 MG/DL (74-106) Calcium Level 8.3 MG/DL (8.5-10.1) L 7.9 MG/DL (8.5-10.1) L Total Bilirubin 0.3 MG/DL (0.2-1.0) Aspartate Amino Transf (AST/SGOT) 19 U/L (15-37) Alanine Aminotransferase (ALT/SGPT) 21 U/L (12-78) Alkaline Phosphatase 140 U/L (46-116) H Total Protein 6.9 G/DL (6.4-8.2) Albumin 1.0 G/DL (3.4-5.0) L Globulin 5.9 g/dL Albumin/Globulin Ratio 0.2 (1.0-2.7) L Assessment/Plan Assessment/Plan Healthcare associated PNA Paroxysmal atrial fibrillation/flutter Paroxysmal atrial ectopy 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 Dyslipidemia on high dose statin - now dose adjusted Dehydration/hypernatremia Severe protein-calorie malnutrition Titrate beta blockade dose. Abx Resp support Cardiac monitoring Continue full anticoagulation Statin dose adjusted Amiodarone at maintenance dose now Free water replacement ordered. Dylan Mka MD Jul 29, 2020 09:51
[2020-07-29 12:00] VITALS: BP 126/69
[2020-07-29] MEDS: Acetaminophen 650mg/20.3ml GT PRN (15:35)
--- NOTE | 2020-07-29 15:58 | General Progress Note ---
Subjective ROS Limited/Unobtainable: Yes Constitutional: Reports: no symptoms HEENT: Reports: no symptoms Cardiovascular: Reports: no symptoms Respiratory: Reports: shortness of breath, sputum Gastrointestinal/Abdominal: Reports: difficulty swallowing Genitourinary: Reports: no symptoms Neurologic/Psychiatric: Reports: pre-existing deficit, seizure Endocrine: Reports: no symptoms Hematologic/Lymphatic: Reports: anemia Allergies: Coded Allergies: No Known Allergies (Unverified , 11/02/19) All Systems: reviewed and negative except above Subjective no events. on t-bar. Na trending up. no fevers or chills. nonverbal. does not follow commands.confused Objective Last 24 Hour Vital Signs Date Time Temp Pulse Resp B/P (MAP) Pulse Ox O2 Delivery O2 Flow Rate FiO2 07/29/20 13:00 97 T-Piece 10.0 60 07/29/20 12:00 99.9 90 20 126/69 (88) 97 07/29/20 12:00 100 07/29/20 09:00 Trach Collar 10.0 07/29/20 08:58 94 133/66 07/29/20 08:41 96.8 94 20 133/66 (88) 98 07/29/20 08:00 98 07/29/20 06:48 96 T-Piece 10.0 60 07/29/20 04:00 97.9 61 24 130/62 (84) 99 07/29/20 03:27 94 07/29/20 00:58 98 T-Piece 10.0 60 07/29/20 00:00 98.2 96 28 137/73 (94) 95 07/29/20 00:00 91 07/28/20 21:05 97 T-Piece 10.0 60 07/28/20 21:00 Trach Collar 10.0 07/28/20 20:57 88 133/88 07/28/20 20:00 99.1 112 22 154/80 (104) 94 07/28/20 20:00 101 07/28/20 16:00 91 07/28/20 16:00 98.4 97 24 132/69 (90) 97 Intake and Output 07/28/20 07/29/20 19:00 07:00 Output Total 1125 ml 1200 ml Balance -1125 ml -1200 ml Output Urine Total 1125 ml 1200 ml Laboratory Tests 07/29/20 04:00: White Blood Count 8.2, Red Blood Count 3.16L, Hemoglobin 9.1L, Hematocrit 27.9L, Mean Corpuscular Volume 88, Mean Corpuscular Hemoglobin 28.7, Mean Corpuscular Hemoglobin Concent 32.4, Red Cell Distribution Width 18.1H, Platelet Count 381, Mean Platelet Volume 5.4L, Neutrophils (%) (Auto) 71.9, Lymphocytes (%) (Auto) 16.1L, Monocytes (%) (Auto) 7.2, Eosinophils (%) (Auto) 4.2H, Basophils (%) (Auto) 0.6, Sodium Level 146H, Potassium Level 5.2H, Chloride Level 111H, Carbon Dioxide Level 35H, Anion Gap 0L, Blood Urea Nitrogen 33H, Creatinine 1.0, Estimat Glomerular Filtration Rate > 60, Glucose Level 98, Calcium Level 7.9L, Total Bilirubin 0.3, Aspartate Amino Transf (AST/SGOT) 19, Alanine Aminotransferase (ALT/SGPT) 21, Alkaline Phosphatase 140H, Total Protein 6.9, Albumin 1.0L, Globulin 5.9, Albumin/Globulin Ratio 0.2L Height (Feet): 5 Height (Inches): 4.00 Weight (Pounds): 171 Objective General Appearance: WD/WN, confused EENT: normal ENT inspection Neck: normal alignment Cardiovascular: normal rate, regular rhythm Respiratory/Chest: rhonchi - bilaterally Abdomen: normal bowel sounds, non tender, soft, no organomegaly Edema: no edema noted Leg (L), no edema noted Leg (R) Neurologic: disoriented, aphasia Skin: normal pigmentation Assessment/Plan Problem List: (1) Anemia ICD Codes: D64.9 - Anemia, unspecified SNOMED: 057678634, 890889852 Qualifiers: Qualified Codes: D64.9 - Anemia, unspecified (2) Pleural effusion, left ICD Codes: J90 - Pleural effusion, not elsewhere classified SNOMED: 72554712, 427619242 (3) Malfunction of gastrostomy tube ICD Codes: K94.23 - Gastrostomy malfunction SNOMED: 708174585 (4) Acute respiratory failure with hypoxia ICD Codes: J96.01 - Acute respiratory failure with hypoxia SNOMED: 35707515, 813252419 (5) HCAP (healthcare-associated pneumonia) ICD Codes: J18.9 - Pneumonia, unspecified organism SNOMED: 509076939, 099291726 Status: stable, progressing Assessment/Plan: monitor off abx trach care resp rx Continue suctioning as needed Continue tube feeds chest PT monitor for fever Monitor H&H. DVT and stress ulcer prophylaxis Monitor on telemetry for recurrent atrial fibrillation. rate control per cards eliquis monitor for bleeding repeat lytes/k tomorrow dc planning Angel Jaramillo MD Jul 29, 2020 15:58
[2020-07-29 16:00] VITALS: BP 149/72
--- NOTE | 2020-07-29 16:50 | Pulmonology Progress Note ---
Subjective ROS Limited/Unobtainable: Yes Allergies: Coded Allergies: No Known Allergies (Unverified , 11/02/19) All Systems: reviewed and negative except above Subjective CARE NOTED nonverbal on oxygen no distress trach collar Objective Last 24 Hour Vital Signs Date Time Temp Pulse Resp B/P (MAP) Pulse Ox O2 Delivery O2 Flow Rate FiO2 07/29/20 16:05 100.4 07/29/20 13:00 97 T-Piece 10.0 60 07/29/20 12:00 99.9 90 20 126/69 (88) 97 07/29/20 12:00 100 07/29/20 09:00 Trach Collar 10.0 07/29/20 08:58 94 133/66 07/29/20 08:41 96.8 94 20 133/66 (88) 98 07/29/20 08:00 98 07/29/20 06:48 96 T-Piece 10.0 60 07/29/20 04:00 97.9 61 24 130/62 (84) 99 07/29/20 03:27 94 07/29/20 00:58 98 T-Piece 10.0 60 07/29/20 00:00 98.2 96 28 137/73 (94) 95 07/29/20 00:00 91 07/28/20 21:05 97 T-Piece 10.0 60 07/28/20 21:00 Trach Collar 10.0 07/28/20 20:57 88 133/88 07/28/20 20:00 99.1 112 22 154/80 (104) 94 07/28/20 20:00 101 Intake and Output 07/28/20 07/29/20 19:00 07:00 Output Total 1125 ml 1200 ml Balance -1125 ml -1200 ml Output Urine Total 1125 ml 1200 ml Objective WDWN NAD awake chronically ill moderate breath sounds bilaterally without rhonchi or wheeze [id number] NABS nontender GT no CCE nonfocal weak wounds noted Laboratory Tests 07/29/20 04:00: White Blood Count 8.2, Red Blood Count 3.16L, Hemoglobin 9.1L, Hematocrit 27.9L, Mean Corpuscular Volume 88, Mean Corpuscular Hemoglobin 28.7, Mean Corpuscular Hemoglobin Concent 32.4, Red Cell Distribution Width 18.1H, Platelet Count 381, Mean Platelet Volume 5.4L, Neutrophils (%) (Auto) 71.9, Lymphocytes (%) (Auto) 16.1L, Monocytes (%) (Auto) 7.2, Eosinophils (%) (Auto) 4.2H, Basophils (%) (Auto) 0.6, Sodium Level 146H, Potassium Level 5.2H, Chloride Level 111H, Carbon Dioxide Level 35H, Anion Gap 0L, Blood Urea Nitrogen 33H, Creatinine 1.0, Estimat Glomerular Filtration Rate > 60, Glucose Level 98, Calcium Level 7.9L, Total Bilirubin 0.3, Aspartate Amino Transf (AST/SGOT) 19, Alanine Aminotransferase (ALT/SGPT) 21, Alkaline Phosphatase 140H, Total Protein 6.9, Albumin 1.0L, Globulin 5.9, Albumin/Globulin Ratio 0.2L Current Medications Medications (Trade) Dose Ordered Sig/Clive Route PRN Reason Start Time Stop Time Status Last Admin Dose Admin Acetaminophen (Tylenol) 650 mg Q4H PRN GT Temp >100.5 07/18/20 09:30 08/17/20 09:29 07/29/20 15:35 Acetaminophen (Tylenol) 650 mg Q4H PRN RECTAL Temp >100.5 07/14/20 13:30 08/13/20 13:29 Amiodarone HCl (Cordarone) 200 mg BID GT 07/24/20 18:00 10/23/20 08:59 07/29/20 08:58 Apixaban (Eliquis) 2.5 mg BID ORAL 07/27/20 18:00 10/25/20 17:59 07/29/20 08:58 Ascorbic Acid (Vitamin C) 250 mg TWICE A DAY GT 07/16/20 18:00 08/15/20 17:59 07/29/20 08:57 Atorvastatin Calcium (Lipitor) 10 mg BEDTIME ORAL 07/24/20 21:00 10/22/20 20:59 07/28/20 20:57 Chlorhexidine Gluconate (Jennifer-Hex 2%) 1 applic DAILY@1999 TOPIC 07/17/20 20:00 10/15/20 19:59 07/28/20 20:57 Famotidine (Pepcid) 20 mg Q12HR GT 07/16/20 21:00 10/14/20 20:59 07/29/20 08:57 Finasteride (Proscar) 5 mg DAILY ORAL 07/15/20 09:00 10/13/20 08:59 07/29/20 08:57 Hydralazine HCl (Apresoline) 25 mg Q6H PRN GT SBP above 150 07/24/20 23:30 10/22/20 23:29 07/26/20 05:22 Levetiracetam (Keppra) 1,000 mg Q12HR ORAL 07/14/20 21:00 08/13/20 20:59 07/29/20 08:57 Metoprolol Tartrate (Lopressor) 50 mg Q12HR ORAL 07/25/20 22:15 10/23/20 22:14 07/29/20 08:58 Multivitamins (Multivitamins) 1 tab DAILY GT 07/17/20 09:00 08/16/20 08:59 07/29/20 08:58 Sodium Hypochlorite (Dakin's Half Strength) 1 applic DAILY TOPIC 07/16/20 13:00 08/15/20 12:59 07/29/20 08:58 Zinc Sulfate (Zinc Sulfate) 220 mg DAILY GT 07/27/20 09:00 10/25/20 08:59 07/29/20 08:57 Assessment/Plan Assessment/Plan Impression: Healthcare-associated pneumonia Acute respiratory failure with hypoxia Tracheostomy status Pleural effusion, left-recurrent Decubitus ulcers Urinary tract infection Anemia S/p previous Craniotomy, RCA occlusion, [employer] shunt Seizure history GERD, dysphagia s/p GJ tube h/o Hypertension h/o Atrial fibrillation Previous DVT and Pulmonary Embolism, Plan ID noted/ low grade fevers events reviewed monitor HH monitor for change J tube feeds O2 - taper; still high nebs as needed 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
--- NOTE | 2020-07-29 18:09 | General Progress Note ---
Subjective Allergies: Coded Allergies: No Known Allergies (Unverified , 11/02/19) Subjective Above noted no further bleeding stools brown tolerating TF Objective Last 24 Hour Vital Signs Date Time Temp Pulse Resp B/P (MAP) Pulse Ox O2 Delivery O2 Flow Rate FiO2 07/29/20 17:53 97.9 98 07/29/20 16:05 100.4 07/29/20 16:00 100.5 118 24 149/72 (97) 96 07/29/20 16:00 118 07/29/20 13:00 97 T-Piece 10.0 60 07/29/20 12:00 99.9 90 20 126/69 (88) 97 07/29/20 12:00 100 07/29/20 09:00 Trach Collar 10.0 07/29/20 08:58 94 133/66 07/29/20 08:41 96.8 94 20 133/66 (88) 98 07/29/20 08:00 98 07/29/20 06:48 96 T-Piece 10.0 60 07/29/20 04:00 97.9 61 24 130/62 (84) 99 07/29/20 03:27 94 07/29/20 00:58 98 T-Piece 10.0 60 07/29/20 00:00 98.2 96 28 137/73 (94) 95 07/29/20 00:00 91 07/28/20 21:05 97 T-Piece 10.0 60 07/28/20 21:00 Trach Collar 10.0 07/28/20 20:57 88 133/88 07/28/20 20:00 99.1 112 22 154/80 (104) 94 07/28/20 20:00 101 Intake and Output 07/28/20 07/29/20 19:00 07:00 Output Total 1125 ml 1200 ml Balance -1125 ml -1200 ml Output Urine Total 1125 ml 1200 ml Laboratory Tests 07/29/20 04:00: White Blood Count 8.2, Red Blood Count 3.16L, Hemoglobin 9.1L, Hematocrit 27.9L, Mean Corpuscular Volume 88, Mean Corpuscular Hemoglobin 28.7, Mean Corpuscular Hemoglobin Concent 32.4, Red Cell Distribution Width 18.1H, Platelet Count 381, Mean Platelet Volume 5.4L, Neutrophils (%) (Auto) 71.9, Lymphocytes (%) (Auto) 16.1L, Monocytes (%) (Auto) 7.2, Eosinophils (%) (Auto) 4.2H, Basophils (%) (Auto) 0.6, Sodium Level 146H, Potassium Level 5.2H, Chloride Level 111H, Carbon Dioxide Level 35H, Anion Gap 0L, Blood Urea Nitrogen 33H, Creatinine 1.0, Estimat Glomerular Filtration Rate > 60, Glucose Level 98, Calcium Level 7.9L, Total Bilirubin 0.3, Aspartate Amino Transf (AST/SGOT) 19, Alanine Aminotransferase (ALT/SGPT) 21, Alkaline Phosphatase 140H, Total Protein 6.9, Albumin 1.0L, Globulin 5.9, Albumin/Globulin Ratio 0.2L Height (Feet): 5 Height (Inches): 4.00 Weight (Pounds): 171 Objective Eldely WM NCAT (+) trach , T tube Coarse BS RRR abd soft (+) GT ext no edema Assessment/Plan Status: stable, progressing Assessment/Plan: Assessment - UGIB - resolved - Anemia, s/p transfusion - h/o PUD - resp failure, s/p trach - dysphagia, s/p PEG - atrial fibrillation - h/o DVT - EGD: - mild duodenitis - 7-8 mm pre-pyloric polypoid nodule with slight erosion at base - biopsied - GT in appropriate position - no large ulcer or active bleeding Recommendations - anticoagulation - H2B BID indefinitely - TF - follow H&H - If recurrent bleeding --> colonoscopy Akiko Rai MD Jul 29, 2020 18:09
--- NOTE | 2020-07-29 19:04 | NUR ---
NURSE HAND-OFF REPORT: Important Events on Shift:Pt had fever 100.5 today, Tylenol given and cooling measures done. Patient Status: stable Diet: Glucerna 1.2 @ 60ml/hr Pending Orders: Pending Results/Labs: Pending MD notification: Latest Vital Signs: Temperature 97.9 , Pulse 98 , B/P 149 /72 , Respiratory Rate 24 , O2 SAT 96 , Trach Collar, O2 Flow Rate 10.0 . Vital Sign Comment: Stable EKG Rhythm: Sinus Rhythm Rhythm change?: N Notified?: N -Dr. Aubree VALDEZ Response: Message left await call Latest Ramirez Fall Score: 50 Fall Risk: High Risk Safety Measures: Call light Within Reach, Bed Alarm Zone 1, Side Rails Side Rails x2, Bed position Low and Locked. Fall Precautions: Yellow Socks Yellow Gown Patient Fall Education Report given to Brant/RN.
--- NOTE | 2020-07-29 19:36 | NUR ---
NURSE NOTES: Pt received from SELIN Noonan. Pt is resting comfortably in bed and shows no sign of pain. Pt has cardiac monitoring Afib afebrile and hypertensive; MD notified and made aware. Pt has Trach 10LPM breathing unlabored and asymptomatic. Pt has GT Glucerna 1.2 60ml/hr no residual and flushing well. Pt has rectal tube draining well to gravity. Pt has [place] catheter 16 fr patent and draining well to gravity. Pt has KIZZY PICC Line SL patent with skin dry and intact. Wound dressings are dry and intact. Bed is locked and in lowest position with call light within reach. Will continue to monitor.
[2020-07-29 20:00] VITALS: BP 129/60
[2020-07-29] MEDS: Dyna-Hex 2% Top Sol 2oz TOPIC SCH (20:04)
--- NOTE | 2020-07-29 20:49 | Surgery Progress Note ---
Surgery Progress Note Subjective Additional Comments no acute events Objective Last 24 Hour Vital Signs Date Time Temp Pulse Resp B/P (MAP) Pulse Ox O2 Delivery O2 Flow Rate FiO2 07/29/20 20:05 88 134/76 07/29/20 17:53 97.9 98 07/29/20 16:05 100.4 07/29/20 16:00 100.5 118 24 149/72 (97) 96 07/29/20 16:00 118 07/29/20 13:00 97 T-Piece 10.0 60 07/29/20 12:00 99.9 90 20 126/69 (88) 97 07/29/20 12:00 100 07/29/20 09:00 Trach Collar 10.0 07/29/20 08:58 94 133/66 07/29/20 08:41 96.8 94 20 133/66 (88) 98 07/29/20 08:00 98 07/29/20 06:48 96 T-Piece 10.0 60 07/29/20 04:00 97.9 61 24 130/62 (84) 99 07/29/20 03:27 94 07/29/20 00:58 98 T-Piece 10.0 60 07/29/20 00:00 98.2 96 28 137/73 (94) 95 07/29/20 00:00 91 07/28/20 21:05 97 T-Piece 10.0 60 07/28/20 21:00 Trach Collar 10.0 07/28/20 20:57 88 133/88 I&O Intake and Output 07/28/20 07/29/20 19:00 07:00 Output Total 1125 ml 1200 ml Balance -1125 ml -1200 ml Output Urine Total 1125 ml 1200 ml Dressing: saturated Cardiovascular: RSR Respiratory: decreased breath sounds Abdomen: soft, non-tender, present bowel sounds Extremities: no edema, no tenderness, no cyanosis Laboratory Tests Test 07/29/20 04:00 White Blood Count 8.2 K/UL (4.8-10.8) Red Blood Count 3.16 M/UL (4.70-6.10) L Hemoglobin 9.1 G/DL (14.2-18.0) L Hematocrit 27.9 % (42.0-52.0) L Mean Corpuscular Volume 88 FL (80-99) Mean Corpuscular Hemoglobin 28.7 PG (27.0-31.0) Mean Corpuscular Hemoglobin Concent 32.4 G/DL (32.0-36.0) Red Cell Distribution Width 18.1 % (11.6-14.8) H Platelet Count 381 K/UL (150-450) Mean Platelet Volume 5.4 FL (6.5-10.1) L Neutrophils (%) (Auto) 71.9 % (45.0-75.0) Lymphocytes (%) (Auto) 16.1 % (20.0-45.0) L Monocytes (%) (Auto) 7.2 % (1.0-10.0) Eosinophils (%) (Auto) 4.2 % (0.0-3.0) H Basophils (%) (Auto) 0.6 % (0.0-2.0) Sodium Level 146 MMOL/L (136-145) H Potassium Level 5.2 MMOL/L (3.5-5.1) H Chloride Level 111 MMOL/L (98-107) H Carbon Dioxide Level 35 MMOL/L (21-32) H Anion Gap 0 mmol/L (5-15) L Blood Urea Nitrogen 33 mg/dL (7-18) H Creatinine 1.0 MG/DL (0.55-1.30) Estimat Glomerular Filtration Rate > 60 mL/min (>60) Glucose Level 98 MG/DL (74-106) Calcium Level 7.9 MG/DL (8.5-10.1) L Total Bilirubin 0.3 MG/DL (0.2-1.0) Aspartate Amino Transf (AST/SGOT) 19 U/L (15-37) Alanine Aminotransferase (ALT/SGPT) 21 U/L (12-78) Alkaline Phosphatase 140 U/L (46-116) H Total Protein 6.9 G/DL (6.4-8.2) Albumin 1.0 G/DL (3.4-5.0) L Globulin 5.9 g/dL Albumin/Globulin Ratio 0.2 (1.0-2.7) L Plan Problems: (1) Decubitus skin ulcer Assessment & Plan: Pt presented on admission with PV shunt,Tracheostomy, Contractures and multiple Pressure Injuries.Skin assessed under tracheal collar. Skin is erythematous but without any open wounds. GT site is red and excoriated.Scattered senile purpuras bilat upper extremities. Full thickness Sacral Pressure Injury(L)11.8cm x (W)8cm. Base of wound is 75% mixed necrosis and slough,20% antonio. Bone is palpable at base. Edges are macerated. Mild odor noted. Small amt brown exudate noted. Periwound is indurated and maroon with additional erythema and scattered Partial thickness shearing. Full Thickness Pressure Injury L trochanteric with undermined borders.(L)5cm x (W)7cm x (D)2.6cm, undermining clockwise 11-2 by 4.2cm @11o'clock. Base of wound is 75%% mixed necrosis and slough,25% antonio. Wound has appearance of two wounds secondary necrotic bridge.In addition, periwound at clockwise 10-2o'clock the base is necrotic and fluctuant with marginal erythema. Small amt malodorous haemopurulent exudate noted. Full thickness Pressure Injury L Ischium(L)3.5cm x (W)2.0cm. Base of wound is 80% slough,20% antonio. Surrounding necrotic borders that are fluctuant.Small amt sanguineous exudate. Mild odor noted. Full thickness Pressure Injury lateral L Tibia to L lateral Malleolus(L)24.5cm x (W)3.5cm. Base of wound is antonio with scattered necrosis and slough, tendon exposure. Semi-detached borders that indurated and macerated with an area of soft necrosis at proximal borders of wound. Small amt haemopurulent exudate n oted. No odor noted. Full thickness Pressure Injury L Heel(L)10.3cm x (W)7.5cm. Base of wound is 60% necrotic,10% slough,30% antonio. Bone is palpable. Borders are indurated with a portion of borders rolled giving heel a shaved appearance. Moderate amt haem opurulent exudate. Mild odor noted.Periwound is purpuric and fluctuant. Full thickness Pressure Injury medial/lateral L foot(L)3.5cm x (W)3.5cm x (D)0.3cm. Base of wound is antonio. Borders and periwound are purpuric and fluctuant.Small amt sanguineous exudate noted. Unstageable Pressure Injury Distal/Lateral L foot(L)2.7cm x (W)4.3cm. Base of wound is 80% soft necrosis,20% antonio. Edges are adherent to base of wound. Periwound is purpuric and fluctuant. Full thickness Pressure Injury R heel Plantar(L)8.5cm x (W)9cm. Base of pressure with scattered necrosis and slough,otherwise base of wound is antonio. Edges are macerated with surrounding necrosis. Small amt seropurulent exudate noted.Mild odor noted. Stable dry eschar dorsal R foot1.5cm x (W)1cm. Edges are adherent to base of wound. No erythema,induration or fluctuance periwound. Stable dry eschar distal/lateral R foot (L)0.8cm x (W)0.8cm. NO erythema,induration or fluctuance periwound. R foot is edematous. Tx.Plan: Cleanse Sacral wound with Dakin's Kristel 0.25%. Apply Dakin's moistened kerlix to wound. Apply Triad periwound. Cover with Optifoam drsg. Change Daily and prn. Cleanse L trochanteric Wound with Dakin's Kristel 0.25%. Loosely pack with Dakin's moistened Kerlix, Apply Moisture Barrier Periwound. Cover with Optifoam drsg Daily and prn. Cleanse R Ischial wound with Dakin's Kristel 0.25%. Apply Dakin's moistened gauze to wound. Apply Moisture Barrier Paste periwound. Cover with Optifoam drsg Daily and prn. Cleanse wounds Lateral R lower extremity, R Heel and Lateral R foot with Dakin's Kristel 0.25%. Place Dakin's Moistened gauze to wounds. Apply Triad Paste along edges of wound. Cover wounds with ABD Pads. Wrap with Kerlix from Base of toes. Cleanse wound R heel with Dakin's Kristel 0.25%. Apply Dakin's moistened Gauze to wound. Apply Triad Periwound. Cover with ABD PAd and wrap with Kerlix. Swab dry Eschar dorsal and Lateral aspect of R foot .Cover with Abd Pads and Wrap with Kerlix Daily and prn. Wash GT site with Soap and water. Apply Triad Paste Daily and prn(Leave Open to Air) Reposition at least every 2hours or as tolerated. Place Pillow Between Knees. Off-Load Heels with Pillow. APM/TERRIE Mattress overlay. (2) Anemia Assessment & Plan: trend h/h prbc prn (3) UTI (urinary tract infection) (4) Pleural effusion, left Assessment & Plan: Lungs: Hazy left lung attenuation could be due to consolidation, pulmonary edema; correlate with presentation. Retrocardiac atelectasis without or with consolidation. Pleural space: Small-moderate left pleural effusion with passive atelectasis. No pneumothorax. Heart: Unremarkable. No cardiomegaly. Mediastinum: Unremarkable. Bones/joints: No acute abnormality Tubes, lines and devices: Tracheostomy. Right upper extremity PICC tip in the mid SVC. IMPRESSION: 1. Tracheostomy. 2. Right upper extremity PICC tip in the mid SVC. 3. Small-moderate left pleural effusion with passive atelectasis. 4. Hazy left lung attenuation could be due to consolidation, pulmonary edema; correlate with presentation. 5. Retrocardiac atelectasis without or with consolidation. 6. Recommend CT chest with IV contrast to further characterize these findings. (5) Malfunction of gastrostomy tube Assessment & Plan: DAILY ESTIMATED NEEDS: Needs based on Wounds, pulmonary/ 74.5kg 25-30 kcals/kg 3618-5475 total kcals 1.5-2 g protein/kg 111-149 g total protein 25-30 mL/kg 7113-3907 total fluid mLs NUTRITION DIAGNOSIS: * Swallowing difficulty R/T dysphagia, h/o craniotomy, respiratory failure as evidenced by pt on T-collar, GJ tube dependent. * Increased kcal/prot/micronutrients needs R/T wound healing as evidenced by pt admitted w/ multiple advanced wounds including full thickness wound x 7 and unstageable wounds x 2, refer to WC evarsenio. CURRENT TF:Jevity 1.2 @ 60ml/hr x 24 hrs-> now Glucerna 1.2 ENTERAL NUTRITION RECOMMENDATIONS: Glucerna 1.2 @ 65ml/hr x 24 hrs + Prosource 1pkt TID to provide 1560ml, 1872kcal, 94g+ 33g prot, 1259ml free water * Increase goal rate to 65ml/hr x 24 hrs to better meet est needs * Add Prosource 1pkt TID to meet increased protein needs * HOB over 30 degrees/ water flush 150ml q 6hrs without IVF ADDITIONAL RECOMMENDATIONS: * Calibrated bedscale wt * Wound Care: Con't Vit C 500mg BID, ZnSO4 220mg QD x 10 days add Stevie BID * Monitor BGs, need for carb controlled TF -> now on Glucerna 1.2 * Monitor lytes, replete as needed (6) Acute respiratory failure with hypoxia (7) HCAP (healthcare-associated pneumonia) Deny Westfall Jul 29, 2020 20:49
[2020-07-30] VITALS: BP 146/75
--- NOTE | 2020-07-30 01:49 | Cardiology Progress Note ---
Subjective DATE OF SERVICE: Jul 30, 2020 Withdrawn but alert with spontaneous eye movements. BP parameters stabilized. Monitor: Sinus arrhythmia with PAC's. No new paroxysms of AFib/flutter. Troponins now normalized Na levels increasing. Objective Last 24 Hour Vital Signs Date Time Temp Pulse Resp B/P (MAP) Pulse Ox O2 Delivery O2 Flow Rate FiO2 07/29/20 20:05 88 134/76 07/29/20 19:00 97 T-Piece 10.0 60 07/29/20 17:53 97.9 98 07/29/20 16:05 100.4 07/29/20 16:00 100.5 118 24 149/72 (97) 96 07/29/20 16:00 118 07/29/20 13:00 97 T-Piece 10.0 60 07/29/20 12:00 99.9 90 20 126/69 (88) 97 07/29/20 12:00 100 07/29/20 09:00 Trach Collar 10.0 07/29/20 08:58 94 133/66 07/29/20 08:41 96.8 94 20 133/66 (88) 98 07/29/20 08:00 98 07/29/20 06:48 96 T-Piece 10.0 60 07/29/20 04:00 97.9 61 24 130/62 (84) 99 07/29/20 03:27 94 ROS: unchanged from 07/14/20 HEENT: Thick Trach secretions RHYTHM: NSR, ST, PACs, Afib LUNGS: bilateral rhonchi, other - decreased BS left base CARDIAC: normal S1 and S2, rapid rate, arrhythmia ABDOMEN: normal bowel sounds, soft, G-Tube intact EXTREMITIES: normal range of motion, non-tender, trace edema, other - withdrawn Laboratory Tests Test 07/29/20 04:00 White Blood Count 8.2 K/UL (4.8-10.8) Red Blood Count 3.16 M/UL (4.70-6.10) L Hemoglobin 9.1 G/DL (14.2-18.0) L Hematocrit 27.9 % (42.0-52.0) L Mean Corpuscular Volume 88 FL (80-99) Mean Corpuscular Hemoglobin 28.7 PG (27.0-31.0) Mean Corpuscular Hemoglobin Concent 32.4 G/DL (32.0-36.0) Red Cell Distribution Width 18.1 % (11.6-14.8) H Platelet Count 381 K/UL (150-450) Mean Platelet Volume 5.4 FL (6.5-10.1) L Neutrophils (%) (Auto) 71.9 % (45.0-75.0) Lymphocytes (%) (Auto) 16.1 % (20.0-45.0) L Monocytes (%) (Auto) 7.2 % (1.0-10.0) Eosinophils (%) (Auto) 4.2 % (0.0-3.0) H Basophils (%) (Auto) 0.6 % (0.0-2.0) Sodium Level 146 MMOL/L (136-145) H Potassium Level 5.2 MMOL/L (3.5-5.1) H Chloride Level 111 MMOL/L (98-107) H Carbon Dioxide Level 35 MMOL/L (21-32) H Anion Gap 0 mmol/L (5-15) L Blood Urea Nitrogen 33 mg/dL (7-18) H Creatinine 1.0 MG/DL (0.55-1.30) Estimat Glomerular Filtration Rate > 60 mL/min (>60) Glucose Level 98 MG/DL (74-106) Calcium Level 7.9 MG/DL (8.5-10.1) L Total Bilirubin 0.3 MG/DL (0.2-1.0) Aspartate Amino Transf (AST/SGOT) 19 U/L (15-37) Alanine Aminotransferase (ALT/SGPT) 21 U/L (12-78) Alkaline Phosphatase 140 U/L (46-116) H Total Protein 6.9 G/DL (6.4-8.2) Albumin 1.0 G/DL (3.4-5.0) L Globulin 5.9 g/dL Albumin/Globulin Ratio 0.2 (1.0-2.7) L Assessment/Plan Assessment/Plan Healthcare associated PNA Paroxysmal atrial fibrillation/flutter Paroxysmal atrial ectopy 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 Dyslipidemia on high dose statin - now dose adjusted Dehydration/hypernatremia Severe protein-calorie malnutrition Titrate beta blockade dose. Abx Resp support Cardiac monitoring Continue full anticoagulation Statin dose adjusted Amiodarone at maintenance dose now Free water replacement ordered; await follow up lab studies. Dylan Mak MD Jul 30, 2020 01:48
[2020-07-30 04:00] VITALS: BP 133/68
[2020-07-30 05:59] LABS: BASOPHILS % (AUTO) 0.5 % (0.0-2.0); HEMATOCRIT 27.1 % (42.0-52.0); HEMOGLOBIN 8.4 G/DL (14.2-18.0); LYMPHOCYTES % (AUTO) 16.8 % (20.0-45.0); MEAN CORPUSCULAR VOLUME 90 FL (80-99); MONOCYTES % (AUTO) 9.5 % (1.0-10.0); NEUTROPHILS % (AUTO) 70.2 % (45.0-75.0); PLATELET COUNT 382 K/UL (150-450); RED BLOOD COUNT 3.03 M/UL (4.70-6.10); WHITE BLOOD COUNT 7.8 K/UL (4.8-10.8)
[2020-07-30 06:37] LABS: ALANINE AMINOTRANSFERASE 22 U/L (12-78); ALBUMIN 0.9 G/DL (3.4-5.0); ALBUMIN/GLOBULIN RATIO 0.2 (1.0-2.7); ALKALINE PHOSPHATASE 137 U/L (46-116); ANION GAP 2 mmol/L (5-15); ASPARTATE AMINO TRANSFERASE 20 U/L (15-37); BILIRUBIN,TOTAL 0.2 MG/DL (0.2-1.0); BLOOD UREA NITROGEN 35 mg/dL (7-18); CALCIUM 8.5 MG/DL (8.5-10.1); CARBON DIOXIDE 35 MMOL/L (21-32); CHLORIDE 112 MMOL/L (98-107); POTASSIUM 4.9 MMOL/L (3.5-5.1); SODIUM 149 MMOL/L (136-145)
--- NOTE | 2020-07-30 07:37 | NUR ---
NURSE NOTES: Received report from Brant/RN. Pt in bed, sleeping, in semi fowlers position. Pt has trach collar on 10L 60% FiO2, no distress or SOB noted. PICC line on right UA single lumen, running D5 W @ 100ml/hr. Bed in the lowest position and locked, call light within reach, encouraged to use when needed. Side rails up X3. Will continue plan of care.
[2020-07-30 08:00] VITALS: BP 123/80
[2020-07-30] MEDS: Ascorbic Acid 500mg tab GT SCH ×2 (09:01→17:34)
[2020-07-30] MEDS: Eliquis 2.5mg tablet ORAL SCH ×2 (09:01→17:34)
[2020-07-30] MEDS: Zinc Sulfate 220mg GT SCH (09:01)
[2020-07-30] MEDS: Metoprolol Tartrate 50mg tab ORAL SCH ×2 (09:01→21:42)
[2020-07-30] MEDS: Dakin's 0.25% (Half Strength) 16oz TOPIC SCH (09:02)
--- NOTE | 2020-07-30 10:02 | Infectious Diseases Prog Note ---
Assessment/Plan Assessment/Plan antibiotics : none A 1. aspiration pneumonia. COVID19 test is negative. 2. coag neg staph line sepsis s/p rx 3. Hypertension. 4. Atrial fibrillation. 5. anemia 6. respiratory failure S/p tracheostomy 7. Left pleural effusion P 1. observe off antibiotics 2. will follow up cultures Subjective ROS Limited/Unobtainable: Yes Allergies: Coded Allergies: No Known Allergies (Unverified , 11/02/19) Objective Last 24 Hour Vital Signs Date Time Temp Pulse Resp B/P (MAP) Pulse Ox O2 Delivery O2 Flow Rate FiO2 07/30/20 09:01 96 123/80 07/30/20 08:00 96.7 96 20 123/80 (94) 95 07/30/20 07:10 95 T-Piece 10.0 60 07/30/20 04:00 93 07/30/20 04:00 98.5 93 24 133/68 (89) 94 07/30/20 01:00 98 T-Piece 10.0 60 07/30/20 00:00 99.5 107 20 146/75 (98) 97 07/30/20 00:00 106 07/29/20 21:00 Trach Collar 10.0 07/29/20 20:05 88 134/76 07/29/20 20:00 98.2 95 24 129/60 (83) 94 07/29/20 20:00 95 07/29/20 19:00 97 T-Piece 10.0 60 07/29/20 17:53 97.9 98 07/29/20 16:05 100.4 07/29/20 16:00 100.5 118 24 149/72 (97) 96 07/29/20 16:00 118 07/29/20 13:00 97 T-Piece 10.0 60 07/29/20 12:00 99.9 90 20 126/69 (88) 97 07/29/20 12:00 100 Height (Feet): 5 Height (Inches): 4.00 Weight (Pounds): 171 HEENT: status post trach Respiratory/Chest: lungs clear Cardiovascular: normal rate, regular rhythm, no gallop/murmur Abdomen: soft, non tender, other - GT Extremities: no edema Laboratory Tests Test 07/30/20 04:20 White Blood Count 7.8 K/UL (4.8-10.8) Red Blood Count 3.03 M/UL (4.70-6.10) L Hemoglobin 8.4 G/DL (14.2-18.0) L Hematocrit 27.1 % (42.0-52.0) L Mean Corpuscular Volume 90 FL (80-99) Mean Corpuscular Hemoglobin 27.6 PG (27.0-31.0) Mean Corpuscular Hemoglobin Concent 30.8 G/DL (32.0-36.0) L Red Cell Distribution Width 17.0 % (11.6-14.8) H Platelet Count 382 K/UL (150-450) Mean Platelet Volume 5.6 FL (6.5-10.1) L Neutrophils (%) (Auto) 70.2 % (45.0-75.0) Lymphocytes (%) (Auto) 16.8 % (20.0-45.0) L Monocytes (%) (Auto) 9.5 % (1.0-10.0) Eosinophils (%) (Auto) 3.0 % (0.0-3.0) Basophils (%) (Auto) 0.5 % (0.0-2.0) Sodium Level 149 MMOL/L (136-145) H Potassium Level 4.9 MMOL/L (3.5-5.1) Chloride Level 112 MMOL/L (98-107) H Carbon Dioxide Level 35 MMOL/L (21-32) H Anion Gap 2 mmol/L (5-15) L Blood Urea Nitrogen 35 mg/dL (7-18) H Creatinine 1.0 MG/DL (0.55-1.30) Estimat Glomerular Filtration Rate > 60 mL/min (>60) Glucose Level 116 MG/DL (74-106) H Calcium Level 8.5 MG/DL (8.5-10.1) Total Bilirubin 0.2 MG/DL (0.2-1.0) Aspartate Amino Transf (AST/SGOT) 20 U/L (15-37) Alanine Aminotransferase (ALT/SGPT) 22 U/L (12-78) Alkaline Phosphatase 137 U/L (46-116) H Total Protein 6.8 G/DL (6.4-8.2) Albumin 0.9 G/DL (3.4-5.0) L Globulin 5.9 g/dL Albumin/Globulin Ratio 0.2 (1.0-2.7) L Current Medications Medications (Trade) Dose Ordered Sig/Clive Route PRN Reason Start Time Stop Time Status Last Admin Dose Admin Acetaminophen (Tylenol) 650 mg Q4H PRN GT Temp >100.5 07/18/20 09:30 08/17/20 09:29 07/29/20 15:35 Acetaminophen (Tylenol) 650 mg Q4H PRN RECTAL Temp >100.5 07/14/20 13:30 08/13/20 13:29 Amiodarone HCl (Cordarone) 200 mg DAILY@1800 GT 07/30/20 18:00 10/28/20 17:59 Apixaban (Eliquis) 2.5 mg BID ORAL 07/27/20 18:00 10/25/20 17:59 07/30/20 09:01 Ascorbic Acid (Vitamin C) 250 mg TWICE A DAY GT 07/16/20 18:00 08/15/20 17:59 07/30/20 09:01 Atorvastatin Calcium (Lipitor) 10 mg BEDTIME ORAL 07/24/20 21:00 10/22/20 20:59 07/29/20 20:05 Chlorhexidine Gluconate (Jennifer-Hex 2%) 1 applic DAILY@2000 TOPIC 07/17/20 20:00 10/15/20 19:59 07/29/20 20:04 Famotidine (Pepcid) 20 mg Q12HR GT 07/16/20 21:00 10/14/20 20:59 07/30/20 09:01 Finasteride (Proscar) 5 mg DAILY ORAL 07/15/20 09:00 10/13/20 08:59 07/30/20 09:00 Hydralazine HCl (Apresoline) 25 mg Q6H PRN GT SBP above 150 07/24/20 23:30 10/22/20 23:29 07/26/20 05:22 Levetiracetam (Keppra) 1,000 mg Q12HR ORAL 07/14/20 21:00 08/13/20 20:59 07/30/20 09:01 Metoprolol Tartrate (Lopressor) 50 mg Q12HR ORAL 07/25/20 22:15 10/23/20 22:14 07/30/20 09:01 Multivitamins (Multivitamins) 1 tab DAILY GT 07/17/20 09:00 08/16/20 08:59 07/30/20 09:01 Sodium Hypochlorite (Dakin's Half Strength) 1 applic DAILY TOPIC 07/16/20 13:00 08/15/20 12:59 07/30/20 09:02 Zinc Sulfate (Zinc Sulfate) 220 mg DAILY GT 07/27/20 09:00 10/25/20 08:59 07/30/20 09:01 Kristie Reina MD Jul 30, 2020 10:01
--- NOTE | 2020-07-30 10:22 | Pulmonology Progress Note ---
Subjective ROS Limited/Unobtainable: Yes Allergies: Coded Allergies: No Known Allergies (Unverified , 11/02/19) All Systems: reviewed and negative except above Subjective CARE NOTED nonverbal on oxygen no distress trach collar Objective Last 24 Hour Vital Signs Date Time Temp Pulse Resp B/P (MAP) Pulse Ox O2 Delivery O2 Flow Rate FiO2 07/30/20 09:01 96 123/80 07/30/20 08:00 96.7 96 20 123/80 (94) 95 07/30/20 07:10 95 T-Piece 10.0 60 07/30/20 04:00 93 07/30/20 04:00 98.5 93 24 133/68 (89) 94 07/30/20 01:00 98 T-Piece 10.0 60 07/30/20 00:00 99.5 107 20 146/75 (98) 97 07/30/20 00:00 106 07/29/20 21:00 Trach Collar 10.0 07/29/20 20:05 88 134/76 07/29/20 20:00 98.2 95 24 129/60 (83) 94 07/29/20 20:00 95 07/29/20 19:00 97 T-Piece 10.0 60 07/29/20 17:53 97.9 98 07/29/20 16:05 100.4 07/29/20 16:00 100.5 118 24 149/72 (97) 96 07/29/20 16:00 118 07/29/20 13:00 97 T-Piece 10.0 60 07/29/20 12:00 99.9 90 20 126/69 (88) 97 07/29/20 12:00 100 Intake and Output 07/29/20 07/30/20 19:00 07:00 Output Total 800 ml 1100 ml Balance -800 ml -1100 ml Output Urine Total 800 ml 1100 ml # Voids 1 Objective WDWN NAD awake chronically ill moderate breath sounds bilaterally without rhonchi or wheeze [id number] NABS nontender GT no CCE nonfocal weak wounds noted Laboratory Tests 07/30/20 04:20: White Blood Count 7.8, Red Blood Count 3.03L, Hemoglobin 8.4L, Hematocrit 27.1L, Mean Corpuscular Volume 90, Mean Corpuscular Hemoglobin 27.6, Mean Corpuscular Hemoglobin Concent 30.8L, Red Cell Distribution Width 17.0H, Platelet Count 382, Mean Platelet Volume 5.6L, Neutrophils (%) (Auto) 70.2, Lymphocytes (%) (Auto) 16.8L, Monocytes (%) (Auto) 9.5, Eosinophils (%) (Auto) 3.0, Basophils (%) (Auto) 0.5, Sodium Level 149H, Potassium Level 4.9, Chloride Level 112H, Carbon Dioxide Level 35H, Anion Gap 2L, Blood Urea Nitrogen 35H, Creatinine 1.0, Estimat Glomerular Filtration Rate > 60, Glucose Level 116H, Calcium Level 8.5, Total Bilirubin 0.2, Aspartate Amino Transf (AST/SGOT) 20, Alanine Aminotransferase (ALT/SGPT) 22, Alkaline Phosphatase 137H, Total Protein 6.8, Albumin 0.9L, Globulin 5.9, Albumin/Globulin Ratio 0.2L Current Medications Medications (Trade) Dose Ordered Sig/Clive Route PRN Reason Start Time Stop Time Status Last Admin Dose Admin Acetaminophen (Tylenol) 650 mg Q4H PRN GT Temp >100.5 07/18/20 09:30 08/17/20 09:29 07/29/20 15:35 Acetaminophen (Tylenol) 650 mg Q4H PRN RECTAL Temp >100.5 07/14/20 13:30 08/13/20 13:29 Amiodarone HCl (Cordarone) 200 mg DAILY@1800 GT 07/30/20 18:00 10/28/20 17:59 Apixaban (Eliquis) 2.5 mg BID ORAL 07/27/20 18:00 10/25/20 17:59 07/30/20 09:01 Ascorbic Acid (Vitamin C) 250 mg TWICE A DAY GT 07/16/20 18:00 08/15/20 17:59 07/30/20 09:01 Atorvastatin Calcium (Lipitor) 10 mg BEDTIME ORAL 07/24/20 21:00 10/22/20 20:59 07/29/20 20:05 Chlorhexidine Gluconate (Jennifer-Hex 2%) 1 applic DAILY@2000 TOPIC 07/17/20 20:00 10/15/20 19:59 07/29/20 20:04 Famotidine (Pepcid) 20 mg Q12HR GT 07/16/20 21:00 10/14/20 20:59 07/30/20 09:01 Finasteride (Proscar) 5 mg DAILY ORAL 07/15/20 09:00 10/13/20 08:59 07/30/20 09:00 Hydralazine HCl (Apresoline) 25 mg Q6H PRN GT SBP above 150 07/24/20 23:30 10/22/20 23:29 07/26/20 05:22 Levetiracetam (Keppra) 1,000 mg Q12HR ORAL 07/14/20 21:00 08/13/20 20:59 07/30/20 09:01 Metoprolol Tartrate (Lopressor) 50 mg Q12HR ORAL 07/25/20 22:15 10/23/20 22:14 07/30/20 09:01 Multivitamins (Multivitamins) 1 tab DAILY GT 07/17/20 09:00 08/16/20 08:59 07/30/20 09:01 Sodium Hypochlorite (Dakin's Half Strength) 1 applic DAILY TOPIC 07/16/20 13:00 08/15/20 12:59 07/30/20 09:02 Zinc Sulfate (Zinc Sulfate) 220 mg DAILY GT 07/27/20 09:00 10/25/20 08:59 07/30/20 09:01 Assessment/Plan Assessment/Plan Impression: Healthcare-associated pneumonia Acute respiratory failure with hypoxia Tracheostomy status Pleural effusion, left-recurrent Decubitus ulcers Urinary tract infection Anemia S/p previous Craniotomy, RCA occlusion, CONFIGURATION DEVELOPER shunt Seizure history GERD, dysphagia s/p GJ tube h/o Hypertension h/o Atrial fibrillation Previous DVT and Pulmonary Embolism, Plan ID noted/ monitor for change events reviewed monitor HH for change J tube feeds O2 - taper; still high nebs as needed 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
--- NOTE | 2020-07-30 11:46 | NUR ---
CASE MANAGEMENT:REVIEW 07/30/20 SI: PNA. UTI. BACTEREMIA. UGIB 96.7 103 20 123/80 95% ON 10L/60% VIA TRACH COLLAR H/H-8.4/27.1 BUN+35 IS: IVF@75/HR COREG GT Q12 KEPPRA GT Q12 AMIODARONE GT Q12 ZINC GT QD : TELEMETRY STATUS DCP: FROM HOME PLAN: WEAN OXYGEN TO LEVEL OF APPROPRIATENESS FOR HOME
[2020-07-30 12:00] VITALS: BP 146/84
--- NOTE | 2020-07-30 15:41 | General Progress Note ---
Subjective ROS Limited/Unobtainable: No Constitutional: Reports: malaise, weakness HEENT: Reports: no symptoms Cardiovascular: Reports: no symptoms Respiratory: Reports: cough Gastrointestinal/Abdominal: Reports: no symptoms Genitourinary: Reports: no symptoms Neurologic/Psychiatric: Reports: pre-existing deficit Endocrine: Reports: no symptoms Hematologic/Lymphatic: Reports: anemia Allergies: Coded Allergies: No Known Allergies (Unverified , 11/02/19) All Systems: reviewed and negative except above Subjective no events. on t-bar. Na trending up. no fevers or chills. nonverbal. does not follow commands.confused labs reviewed- Na level trending up Objective Last 24 Hour Vital Signs Date Time Temp Pulse Resp B/P (MAP) Pulse Ox O2 Delivery O2 Flow Rate FiO2 07/30/20 12:00 97.7 105 20 146/84 (104) 90 07/30/20 12:00 109 07/30/20 09:01 96 123/80 07/30/20 09:00 Trach Collar 10.0 07/30/20 08:00 103 07/30/20 08:00 96.7 96 20 123/80 (94) 95 07/30/20 07:10 95 T-Piece 10.0 60 07/30/20 04:00 93 07/30/20 04:00 98.5 93 24 133/68 (89) 94 07/30/20 01:00 98 T-Piece 10.0 60 07/30/20 00:00 99.5 107 20 146/75 (98) 97 07/30/20 00:00 106 07/29/20 21:00 Trach Collar 10.0 07/29/20 20:05 88 134/76 07/29/20 20:00 98.2 95 24 129/60 (83) 94 07/29/20 20:00 95 07/29/20 19:00 97 T-Piece 10.0 60 07/29/20 17:53 97.9 98 07/29/20 16:05 100.4 07/29/20 16:00 100.5 118 24 149/72 (97) 96 07/29/20 16:00 118 Intake and Output 07/29/20 07/30/20 19:00 07:00 Output Total 800 ml 1100 ml Balance -800 ml -1100 ml Output Urine Total 800 ml 1100 ml # Voids 1 Laboratory Tests 07/30/20 04:20: White Blood Count 7.8, Red Blood Count 3.03L, Hemoglobin 8.4L, Hematocrit 27.1L, Mean Corpuscular Volume 90, Mean Corpuscular Hemoglobin 27.6, Mean Corpuscular Hemoglobin Concent 30.8L, Red Cell Distribution Width 17.0H, Platelet Count 382, Mean Platelet Volume 5.6L, Neutrophils (%) (Auto) 70.2, Lymphocytes (%) (Auto) 16.8L, Monocytes (%) (Auto) 9.5, Eosinophils (%) (Auto) 3.0, Basophils (%) (Auto) 0.5, Sodium Level 149H, Potassium Level 4.9, Chloride Level 112H, Carbon Dioxide Level 35H, Anion Gap 2L, Blood Urea Nitrogen 35H, Creatinine 1.0, Estimat Glomerular Filtration Rate > 60, Glucose Level 116H, Calcium Level 8.5, Total Bilirubin 0.2, Aspartate Amino Transf (AST/SGOT) 20, Alanine Aminotransferase (ALT/SGPT) 22, Alkaline Phosphatase 137H, Total Protein 6.8, Albumin 0.9L, Globulin 5.9, Albumin/Globulin Ratio 0.2L Height (Feet): 5 Height (Inches): 4.00 Weight (Pounds): 171 Objective General Appearance: WD/WN, confused EENT: normal ENT inspection Neck: normal alignment Cardiovascular: normal rate, regular rhythm Respiratory/Chest: rhonchi - bilaterally Abdomen: normal bowel sounds, non tender, soft, no organomegaly Edema: no edema noted Leg (L), no edema noted Leg (R) Neurologic: disoriented, aphasia Skin: normal pigmentation Assessment/Plan Problem List: (1) Anemia ICD Codes: D64.9 - Anemia, unspecified SNOMED: 996381333, [id number] Qualifiers: Qualified Codes: D64.9 - Anemia, unspecified (2) Pleural effusion, left ICD Codes: J90 - Pleural effusion, not elsewhere classified SNOMED: 86878383, 361096865 (3) Malfunction of gastrostomy tube ICD Codes: K94.23 - Gastrostomy malfunction SNOMED: 107550870 (4) Acute respiratory failure with hypoxia ICD Codes: J96.01 - Acute respiratory failure with hypoxia SNOMED: 13850720, 279515494 (5) HCAP (healthcare-associated pneumonia) ICD Codes: J18.9 - Pneumonia, unspecified organism SNOMED: 537081128, 110470203 Status: stable, progressing Assessment/Plan: monitor off abx trach care resp rx Continue suctioning as needed Continue tube feeds chest PT monitor for fever Monitor H&H. DVT and stress ulcer prophylaxis Monitor on telemetry for recurrent atrial fibrillation. rate control per cards eliquis monitor for bleeding increase water flushes dc planning Angel Jaramillo MD Jul 30, 2020 15:41
[2020-07-30] MEDS: Acetaminophen 650mg/20.3ml GT PRN (15:58)
[2020-07-30 16:00] VITALS: BP 123/68
--- NOTE | 2020-07-30 16:50 | Surgery Progress Note ---
Surgery Progress Note Subjective Additional Comments no acute events ill appearing Objective Last 24 Hour Vital Signs Date Time Temp Pulse Resp B/P (MAP) Pulse Ox O2 Delivery O2 Flow Rate FiO2 07/30/20 13:00 92 T-Piece 10.0 60 07/30/20 12:00 97.7 105 20 146/84 (104) 90 07/30/20 12:00 109 07/30/20 09:01 96 123/80 07/30/20 09:00 Trach Collar 10.0 07/30/20 08:00 103 07/30/20 08:00 96.7 96 20 123/80 (94) 95 07/30/20 07:10 95 T-Piece 10.0 60 07/30/20 04:00 93 07/30/20 04:00 98.5 93 24 133/68 (89) 94 07/30/20 01:00 98 T-Piece 10.0 60 07/30/20 00:00 99.5 107 20 146/75 (98) 97 07/30/20 00:00 106 07/29/20 21:00 Trach Collar 10.0 07/29/20 20:05 88 134/76 07/29/20 20:00 98.2 95 24 129/60 (83) 94 07/29/20 20:00 95 07/29/20 19:00 97 T-Piece 10.0 60 07/29/20 17:53 97.9 98 I&O Intake and Output 07/29/20 07/30/20 19:00 07:00 Output Total 800 ml 1100 ml Balance -800 ml -1100 ml Output Urine Total 800 ml 1100 ml # Voids 1 Dressing: saturated Cardiovascular: RSR Respiratory: decreased breath sounds Abdomen: flat, non-tender, present bowel sounds, non-distended Extremities: no edema, no tenderness, no cyanosis Laboratory Tests Test 07/30/20 04:20 White Blood Count 7.8 K/UL (4.8-10.8) Red Blood Count 3.03 M/UL (4.70-6.10) L Hemoglobin 8.4 G/DL (14.2-18.0) L Hematocrit 27.1 % (42.0-52.0) L Mean Corpuscular Volume 90 FL (80-99) Mean Corpuscular Hemoglobin 27.6 PG (27.0-31.0) Mean Corpuscular Hemoglobin Concent 30.8 G/DL (32.0-36.0) L Red Cell Distribution Width 17.0 % (11.6-14.8) H Platelet Count 382 K/UL (150-450) Mean Platelet Volume 5.6 FL (6.5-10.1) L Neutrophils (%) (Auto) 70.2 % (45.0-75.0) Lymphocytes (%) (Auto) 16.8 % (20.0-45.0) L Monocytes (%) (Auto) 9.5 % (1.0-10.0) Eosinophils (%) (Auto) 3.0 % (0.0-3.0) Basophils (%) (Auto) 0.5 % (0.0-2.0) Sodium Level 149 MMOL/L (136-145) H Potassium Level 4.9 MMOL/L (3.5-5.1) Chloride Level 112 MMOL/L (98-107) H Carbon Dioxide Level 35 MMOL/L (21-32) H Anion Gap 2 mmol/L (5-15) L Blood Urea Nitrogen 35 mg/dL (7-18) H Creatinine 1.0 MG/DL (0.55-1.30) Estimat Glomerular Filtration Rate > 60 mL/min (>60) Glucose Level 116 MG/DL (74-106) H Calcium Level 8.5 MG/DL (8.5-10.1) Total Bilirubin 0.2 MG/DL (0.2-1.0) Aspartate Amino Transf (AST/SGOT) 20 U/L (15-37) Alanine Aminotransferase (ALT/SGPT) 22 U/L (12-78) Alkaline Phosphatase 137 U/L (46-116) H Total Protein 6.8 G/DL (6.4-8.2) Albumin 0.9 G/DL (3.4-5.0) L Globulin 5.9 g/dL Albumin/Globulin Ratio 0.2 (1.0-2.7) L Plan Problems: (1) Decubitus skin ulcer Assessment & Plan: Pt presented on admission with PV shunt,Tracheostomy, Contractures and multiple Pressure Injuries.Skin assessed under tracheal collar. Skin is erythematous but without any open wounds. GT site is red and excoriated.Scattered senile purpuras bilat upper extremities. Full thickness Sacral Pressure Injury(L)11.8cm x (W)8cm. Base of wound is 75% mixed necrosis and slough,20% antonio. Bone is palpable at base. Edges are macerated. Mild odor noted. Small amt brown exudate noted. Periwound is indurated and maroon with additional erythema and scattered Partial thickness shearing. Full Thickness Pressure Injury L trochanteric with undermined borders.(L)5cm x (W)7cm x (D)2.6cm, undermining clockwise 11-2 by 4.2cm @11o'clock. Base of wound is 75%% mixed necrosis and slough,25% antonio. Wound has appearance of two wounds secondary necrotic bridge.In addition, periwound at clockwise 10-2o'clock the base is necrotic and fluctuant with marginal erythema. Small amt malodorous haemopurulent exudate noted. Full thickness Pressure Injury L Ischium(L)3.5cm x (W)2.0cm. Base of wound is 80% slough,20% antonio. Surrounding necrotic borders that are fluctuant.Small amt sanguineous exudate. Mild odor noted. Full thickness Pressure Injury lateral L Tibia to L lateral Malleolus(L)24.5cm x (W)3.5cm. Base of wound is antonio with scattered necrosis and slough, tendon exposure. Semi-detached borders that indurated and macerated with an area of soft necrosis at proximal borders of wound. Small amt haemopurulent exudate noted. No odor noted. Full thickness Pressure Injury L Heel(L)10.3cm x (W)7.5cm. Base of wound is 60% necrotic,10% slough,30% antonio. Bone is palpable. Borders are indurated with a portion of borders rolled giving heel a shaved appearance. Moderate amt haemopurulent exudate. Mild odor noted.Periwound is purpuric and fluctuant. Full thickness Pressure Injury medial/lateral L foot(L)3.5cm x (W)3.5cm x (D)0 .3cm. Base of wound is antonio. Borders and periwound are purpuric and fluctuant.Small amt sanguineous exudate noted. Unstageable Pressure Injury Distal/Lateral L foot(L)2.7cm x (W)4.3cm. Base of wound is 80% soft necrosis,20% antonio. Edges are adherent to base of wound. Periwound is purpuric and fluctuant. Full thickness Pressure Injury R heel Plantar(L)8.5cm x (W)9cm. Base of pressure with scattered necrosis and slough,otherwise base of wound is antonio. Edges are macerated with surrounding necrosis. Small amt seropurulent exudate noted.Mild odor noted. Stable dry eschar dorsal R foot1.5cm x (W)1cm. Edges are adherent to base of wound. No erythema,induration or fluctuance periwound. Stable dry eschar distal/lateral R foot (L)0.8cm x (W)0.8cm. NO erythema,indura tion or fluctuance periwound. R foot is edematous. Tx.Plan: Cleanse Sacral wound with Dakin's Kristel 0.25%. Apply Dakin's moistened kerlix to wound. Apply Triad periwound. Cover with Optifoam drsg. Change Daily and prn. Cleanse L trochanteric Wound with Dakin's Kristel 0.25%. Loosely pack with Dakin's moistened Kerlix, Apply Moisture Barrier Periwound. Cover with Optifoam drsg Daily and prn. Cleanse R Ischial wound with Dakin's Kristel 0.25%. Apply Dakin's moistened gauze to wound. Apply Moisture Barrier Paste periwound. Cover with Optifoam drsg Daily and prn. Cleanse wounds Lateral R lower extremity, R Heel and Lateral R foot with Dakin's Kristel 0.25%. Place Dakin's Moistened gauze to wounds. Apply Triad Paste along edges of wound. Cover wounds with ABD Pads. Wrap with Kerlix from Base of toes. Cleanse wound R heel with Dakin's Kritsel 0.25%. Apply Dakin's moistened Gauze to wound. Apply Triad Periwound. Cover with ABD PAd and wrap with Kerlix. Swab dry Eschar dorsal and Lateral aspect of R foot .Cover with Abd Pads and Wrap with Kerlix Daily and prn. Wash GT site with Soap and water. Apply Triad Paste Daily and prn(Leave Open to Air) Reposition at least every 2hours or as tolerated. Place Pillow Between Knees. Off-Load Heels with Pillow. APM/TERRIE Mattress overlay. (2) Anemia Assessment & Plan: trend h/h prbc prn (3) UTI (urinary tract infection) (4) Pleural effusion, left Assessment & Plan: Lungs: Hazy left lung attenuation could be due to consolidation, pulmonary edema; correlate with presentation. Retrocardiac atelectasis without or with consolidation. Pleural space: Small-moderate left pleural effusion with passive atelectasis. No pneumothorax. Heart: Unremarkable. No cardiomegaly. Mediastinum: Unremarkable. Bones/joints: No acute abnormality Tubes, lines and devices: Tracheostomy. Right upper extremity PICC tip in the mid SVC. IMPRESSION: 1. Tracheostomy. 2. Right upper extremity PICC tip in the mid SVC. 3. Small-moderate left pleural effusion with passive atelectasis. 4. Hazy left lung attenuation could be due to consolidation, pulmonary edema; correlate with presentation. 5. Retrocardiac atelectasis without or with consolidation. 6. Recommend CT chest with IV contrast to further characterize these findings. (5) Malfunction of gastrostomy tube Assessment & Plan: DAILY ESTIMATED NEEDS: Needs based on Wounds, pulmonary/ 74.5kg 25-30 kcals/kg 4094-7167 total kcals 1.5-2 g protein/kg 111-149 g total protein 25-30 mL/kg 2789-1858 total fluid mLs NUTRITION DIAGNOSIS: * Swallowing difficulty R/T dysphagia, h/o craniotomy, respiratory failure as evidenced by pt on T-collar, GJ tube dependent. * Increased kcal/prot/micronutrients needs R/T wound healing as evidenced by pt admitted w/ multiple advanced wounds including full thickness wound x 7 and unstageable wounds x 2, refer to WC eval. CURRENT TF:Jevity 1.2 @ 60ml/hr x 24 hrs-> now Glucerna 1.2 ENTERAL NUTRITION RECOMMENDATIONS: Glucerna 1.2 @ 65ml/hr x 24 hrs + Prosource 1pkt TID to provide 1560ml, 1872kcal, 94g+ 33g prot, 1259ml free water * Increase goal rate to 65ml/hr x 24 hrs to better meet est needs * Add Prosource 1pkt TID to meet increased protein needs * HOB over 30 degrees/ water flush 150ml q 6hrs without IVF ADDITIONAL RECOMMENDATIONS: * Calibrated bedscale wt * Wound Care: Con't Vit C 500mg BID, ZnSO4 220mg QD x 10 days add Stevie BID * Monitor BGs, need for carb controlled TF -> now on Glucerna 1.2 * Monitor lytes, replete as needed (6) Acute respiratory failure with hypoxia (7) HCAP (healthcare-associated pneumonia) Deny Westfall Jul 30, 2020 16:50
[2020-07-30] MEDS: Amiodarone 200mg tab GT SCH (17:34)
--- NOTE | 2020-07-30 19:41 | NUR ---
NURSE HAND-OFF REPORT: Important Events on Shift:Pt had fever 101.7, Tylenol given and cooling measures taken. Latest temperature 98.1 Patient Status: Stable Diet: Glucerna 1.2 @ 60 ml/hr Pending Orders: Pending Results/Labs: Pending MD notification: Latest Vital Signs: Temperature 98.1 , Pulse 128 , B/P 123 /68 , Respiratory Rate 24 , O2 SAT 95 , Trach Collar, O2 Flow Rate 10.0 . Vital Sign Comment: Stable EKG Rhythm: Sinus Tachycardia Rhythm change?: N Notified?: N -Dr. Aubree VALDEZ Response: Message left await call Latest Ramirez Fall Score: 50 Fall Risk: High Risk Safety Measures: Call light Within Reach, Bed Alarm Zone 1, Side Rails Side Rails x2, Bed position Low and Locked. Fall Precautions: Yellow Socks Yellow Gown Patient Fall Education Report given to Matthew/RN.
--- NOTE | 2020-07-30 19:41 | NUR ---
NURSE NOTES: Pt. received from SELIN Noonan. Pt. asleep, breathing even and unlabored via trach collar at 10L, no indications of respiratory distress, no indications of pain. PICC KIZZY intact and patent, will change dressing tonight. Wound dressings CDI. [place] intact and draining yellow urine well. Rectal tube intact. Gtube running glucerna 1.2 at 60cc. Bed low and locked, side rails x3 up, bed alarm active, and call light in reach.
[2020-07-30 20:00] VITALS: BP 127/71
[2020-07-30] MEDS: Dyna-Hex 2% Top Sol 2oz TOPIC SCH (20:12)
--- NOTE | 2020-07-30 20:45 | NUR ---
NURSE NOTES: PICC dressing changed, dressing dated.
--- NOTE | 2020-07-30 20:46 | General Progress Note ---
Subjective Allergies: Coded Allergies: No Known Allergies (Unverified , 11/02/19) Subjective Above noted non communicative stools brown tolerating TF Objective Last 24 Hour Vital Signs Date Time Temp Pulse Resp B/P (MAP) Pulse Ox O2 Delivery O2 Flow Rate FiO2 07/30/20 19:53 92 T-Piece 10.0 40 07/30/20 17:30 98.1 07/30/20 16:28 98.1 07/30/20 16:00 128 07/30/20 16:00 101.7 116 24 123/68 (86) 95 07/30/20 13:00 92 T-Piece 10.0 60 07/30/20 12:00 97.7 105 20 146/84 (104) 90 07/30/20 12:00 109 07/30/20 09:01 96 123/80 07/30/20 09:00 Trach Collar 10.0 07/30/20 08:00 103 07/30/20 08:00 96.7 96 20 123/80 (94) 95 07/30/20 07:10 95 T-Piece 10.0 60 07/30/20 04:00 93 07/30/20 04:00 98.5 93 24 133/68 (89) 94 07/30/20 01:00 98 T-Piece 10.0 60 07/30/20 00:00 99.5 107 20 146/75 (98) 97 07/30/20 00:00 106 07/29/20 21:00 Trach Collar 10.0 Intake and Output 07/29/20 07/30/20 19:00 07:00 Output Total 800 ml 1100 ml Balance -800 ml -1100 ml Output Urine Total 800 ml 1100 ml # Voids 1 Laboratory Tests 07/30/20 04:20: White Blood Count 7.8, Red Blood Count 3.03L, Hemoglobin 8.4L, Hematocrit 27.1L, Mean Corpuscular Volume 90, Mean Corpuscular Hemoglobin 27.6, Mean Corpuscular Hemoglobin Concent 30.8L, Red Cell Distribution Width 17.0H, Platelet Count 382, Mean Platelet Volume 5.6L, Neutrophils (%) (Auto) 70.2, Lymphocytes (%) (Auto) 16.8L, Monocytes (%) (Auto) 9.5, Eosinophils (%) (Auto) 3.0, Basophils (%) (Auto) 0.5, Sodium Level 149H, Potassium Level 4.9, Chloride Level 112H, Carbon Dioxide Level 35H, Anion Gap 2L, Blood Urea Nitrogen 35H, Creatinine 1.0, Estimat Glomerular Filtration Rate > 60, Glucose Level 116H, Calcium Level 8.5, Total Bilirubin 0.2, Aspartate Amino Transf (AST/SGOT) 20, Alanine Aminotransferase (ALT/SGPT) 22, Alkaline Phosphatase 137H, Total Protein 6.8, Albumin 0.9L, Globulin 5.9, Albumin/Globulin Ratio 0.2L Height (Feet): 5 Height (Inches): 4.00 Weight (Pounds): 171 Objective Eldely WM NCAT (+) trach , T tube Coarse BS RRR abd soft (+) GT ext no edema Assessment/Plan Status: stable, progressing Assessment/Plan: Assessment - UGIB - resolved - Anemia, s/p transfusion - h/o PUD - resp failure, s/p trach - dysphagia, s/p PEG - atrial fibrillation - h/o DVT - hypernatremia Recommendations - anticoagulation - H2B BID indefinitely - TF -- increase free water - follow H&H - If recurrent bleeding --> colonoscopy Akiko Rai MD Jul 30, 2020 20:46
[2020-07-31] VITALS: BP 136/74
[2020-07-31 04:00] VITALS: BP 129/71
--- NOTE | 2020-07-31 05:00 | NUR ---
NURSE NOTES: Sacral and left buttocks wound dressings changed. Dressings were saturated, bleeding. Will notify Dr. Jaramillo.
[2020-07-31 06:35] LABS: ANION GAP 2 mmol/L (5-15); BLOOD UREA NITROGEN 35 mg/dL (7-18); CALCIUM 8.7 MG/DL (8.5-10.1); CARBON DIOXIDE 35 MMOL/L (21-32); CHLORIDE 110 MMOL/L (98-107); CREATININE 1.1 MG/DL (0.55-1.30); POTASSIUM 4.7 MMOL/L (3.5-5.1); SODIUM 147 MMOL/L (136-145)
--- NOTE | 2020-07-31 07:09 | NUR ---
NURSE HAND-OFF REPORT: Important Events on Shift:[pt. afebrile overnight, sacral wound dressings saturated overnight and changed as ordered, PICC dressing changed 07/30, suctioning performed PRN and pt. tolerated well, feedings given as ordered and flushed with water as ordered] Patient Status: stable, at baseline Diet: glucerna 1.2 at 60cc, flush with 100cc q4 hr Pending Orders: na Pending Results/Labs:na Pending MD notification: notified Dr. Jaramillo of saturated wound dressings and temperature yesterday day shift Latest Vital Signs: Temperature 98.4 , Pulse 95 , B/P 129 /71 , Respiratory Rate 24 , O2 SAT 98 , Trach Collar, O2 Flow Rate 10.0 . Vital Sign Comment: stable EKG Rhythm: Sinus Rhythm Rhythm change?: N Notified?: MD Response: Latest Ramirez Fall Score: 50 Fall Risk: High Risk Safety Measures: Call light Within Reach, Bed Alarm Zone 1, Side Rails Side Rails x2, Bed position Low and Locked. Fall Precautions: Yellow Socks Yellow Gown Patient Fall Education Report given to .
--- NOTE | 2020-07-31 07:42 | NUR ---
HAND-OFF: Report given to SELIN Nieto.
[2020-07-31 08:00] VITALS: BP 137/87
--- NOTE | 2020-07-31 08:17 | NUR ---
NURSE NOTES: pt is in bed and asleep. PICC is patent, no signs of phlebitis noted. dressing was changed 07/30, GT is running at 60 ml, no residual noted. rectal tube and valles draining. pt is on Trach 10L 60% FiO2. no signs of respiratory or cardiac distress noted. bed is locked and in lowest position, call light is within reach.
[2020-07-31] MEDS: Zinc Sulfate 220mg GT SCH (10:03)
[2020-07-31] MEDS: Metoprolol Tartrate 50mg tab ORAL SCH ×2 (10:03→20:29)
[2020-07-31] MEDS: Ascorbic Acid 500mg tab GT SCH ×2 (10:04→17:58)
[2020-07-31] MEDS: Dakin's 0.25% (Half Strength) 16oz TOPIC SCH (10:04)
--- NOTE | 2020-07-31 11:36 | General Progress Note ---
Subjective ROS Limited/Unobtainable: No Constitutional: Reports: malaise, weakness HEENT: Reports: no symptoms Cardiovascular: Reports: no symptoms Respiratory: Reports: cough, shortness of breath Gastrointestinal/Abdominal: Reports: difficulty swallowing Genitourinary: Reports: no symptoms Neurologic/Psychiatric: Reports: pre-existing deficit Endocrine: Reports: no symptoms Hematologic/Lymphatic: Reports: anemia Allergies: Coded Allergies: No Known Allergies (Unverified , 11/02/19) All Systems: reviewed and negative except above Subjective bleeding from wounds. recently re-started on eliquis. on t-bar. Na trending up. no fevers or chills. nonverbal. does not follow commands.confused labs reviewed- Na level trending up Objective Last 24 Hour Vital Signs Date Time Temp Pulse Resp B/P (MAP) Pulse Ox O2 Delivery O2 Flow Rate FiO2 07/31/20 10:03 97 137/87 07/31/20 07:45 92 T-Piece 10.0 40 07/31/20 04:00 95 07/31/20 04:00 98.4 97 24 129/71 (90) 98 07/31/20 01:00 92 T-Piece 10.0 40 07/31/20 00:00 97.7 89 26 136/74 (94) 98 07/31/20 00:00 89 07/30/20 21:42 95 138/75 07/30/20 21:00 Trach Collar 10.0 07/30/20 20:00 98.1 96 24 127/71 (89) 93 07/30/20 20:00 95 07/30/20 19:53 92 T-Piece 10.0 40 07/30/20 17:30 98.1 07/30/20 16:28 98.1 07/30/20 16:00 128 07/30/20 16:00 101.7 116 24 123/68 (86) 95 07/30/20 13:00 92 T-Piece 10.0 60 07/30/20 12:00 97.7 105 20 146/84 (104) 90 07/30/20 12:00 109 Intake and Output 07/30/20 07/31/20 19:00 07:00 Intake Total 960 ml Output Total 200 ml 1100 ml Balance -200 ml -140 ml Intake Free Water 300 ml Tube Feeding 660 ml Output Urine Total 200 ml 900 ml Stool Total 200 ml # Voids 1 1 # Bowel Movements 1 Laboratory Tests 07/31/20 03:15: Sodium Level 147H, Potassium Level 4.7, Chloride Level 110H, Carbon Dioxide Level 35H, Anion Gap 2L, Blood Urea Nitrogen 35H, Creatinine 1.1, Estimat Glomerular Filtration Rate > 60, Glucose Level 104, Calcium Level 8.7 Height (Feet): 5 Height (Inches): 4.00 Weight (Pounds): 171 Objective General Appearance: WD/WN, confused EENT: normal ENT inspection Neck: normal alignment Cardiovascular: normal rate, regular rhythm Respiratory/Chest: rhonchi - bilaterally Abdomen: normal bowel sounds, non tender, soft, no organomegaly Edema: no edema noted Leg (L), no edema noted Leg (R) Neurologic: disoriented, aphasia Skin: normal pigmentation Assessment/Plan Problem List: (1) Anemia ICD Codes: D64.9 - Anemia, unspecified SNOMED: 483299198, 492227452 Qualifiers: Qualified Codes: D64.9 - Anemia, unspecified (2) Pleural effusion, left ICD Codes: J90 - Pleural effusion, not elsewhere classified SNOMED: 96042185, 108939128 (3) Malfunction of gastrostomy tube ICD Codes: K94.23 - Gastrostomy malfunction SNOMED: 473093020 (4) Acute respiratory failure with hypoxia ICD Codes: J96.01 - Acute respiratory failure with hypoxia SNOMED: 24710667, 685667051 (5) HCAP (healthcare-associated pneumonia) ICD Codes: J18.9 - Pneumonia, unspecified organism SNOMED: 240371304, 996791228 Status: stable, progressing Assessment/Plan: monitor off abx trach care resp rx Continue suctioning as needed Continue tube feeds chest PT monitor for fever DVT and stress ulcer prophylaxis Monitor on telemetry for recurrent atrial fibrillation. rate control per cards dc eliquis due to bleeding from wounds monitor for bleeding increase water flushes dc planning Angel Jaramillo MD Jul 31, 2020 11:36
[2020-07-31 12:00] VITALS: BP 117/62
--- NOTE | 2020-07-31 12:20 | Surgery Progress Note ---
Surgery Progress Note Subjective Additional Comments labs improving looks more comfortable today no n/v tolerating on t piece Objective Last 24 Hour Vital Signs Date Time Temp Pulse Resp B/P (MAP) Pulse Ox O2 Delivery O2 Flow Rate FiO2 07/31/20 10:03 97 137/87 07/31/20 07:45 92 T-Piece 10.0 40 07/31/20 04:00 95 07/31/20 04:00 98.4 97 24 129/71 (90) 98 07/31/20 01:00 92 T-Piece 10.0 40 07/31/20 00:00 97.7 89 26 136/74 (94) 98 07/31/20 00:00 89 07/30/20 21:42 95 138/75 07/30/20 21:00 Trach Collar 10.0 07/30/20 20:00 98.1 96 24 127/71 (89) 93 07/30/20 20:00 95 07/30/20 19:53 92 T-Piece 10.0 40 07/30/20 17:30 98.1 07/30/20 16:28 98.1 07/30/20 16:00 128 07/30/20 16:00 101.7 116 24 123/68 (86) 95 07/30/20 13:00 92 T-Piece 10.0 60 I&O Intake and Output 07/30/20 07/31/20 19:00 07:00 Intake Total 960 ml Output Total 200 ml 1100 ml Balance -200 ml -140 ml Intake Free Water 300 ml Tube Feeding 660 ml Output Urine Total 200 ml 900 ml Stool Total 200 ml # Voids 1 1 # Bowel Movements 1 Dressing: saturated Cardiovascular: RSR Respiratory: decreased breath sounds Abdomen: soft, non-tender, present bowel sounds Extremities: no tenderness, no cyanosis Laboratory Tests Test 07/31/20 03:15 Sodium Level 147 MMOL/L (136-145) H Potassium Level 4.7 MMOL/L (3.5-5.1) Chloride Level 110 MMOL/L (98-107) H Carbon Dioxide Level 35 MMOL/L (21-32) H Anion Gap 2 mmol/L (5-15) L Blood Urea Nitrogen 35 mg/dL (7-18) H Creatinine 1.1 MG/DL (0.55-1.30) Estimat Glomerular Filtration Rate > 60 mL/min (>60) Glucose Level 104 MG/DL (74-106) Calcium Level 8.7 MG/DL (8.5-10.1) Plan Problems: (1) Decubitus skin ulcer Assessment & Plan: Pt presented on admission with PV shunt,Tracheostomy, Contractures and multiple Pressure Injuries.Skin assessed under tracheal collar. Skin is erythematous but without any open wounds. GT site is red and excoriated.Scattered senile purpuras bilat upper extremities. Full thickness Sacral Pressure Injury(L)11.8cm x (W)8cm. Base of wound is 75% mixed necrosis and slough,20% antonio. Bone is palpable at base. Edges are macerated. Mild odor noted. Small amt brown exudate noted. Periwound is indurated and maroon with additional erythema and scattered Partial thickness shearing. Full Thickness Pressure Injury L trochanteric with undermined borders.(L)5cm x (W)7cm x (D)2.6cm, undermining clockwise 11-2 by 4.2cm @11o'clock. Base of wound is 75%% mixed necrosis and slough,25% antonio. Wound has appearance of two wounds secondary necrotic bridge.In addition, periwound at clockwise 10-2o'clock the base is necrotic and fluctuant with marginal erythema. Small amt malodorous haemopurulent exudate noted. Full thickness Pressure Injury L Ischium(L)3.5cm x (W)2.0cm. Base of wound is 80% slough,20% antonio. Surrounding necrotic borders that are fluctuant.Small amt sanguineous exudate. Mild odor noted. Full thickness Pressure Injury lateral L Tibia to L lateral Malleolus(L)24.5cm x (W)3.5cm. Base of wound is antonio with scattered necrosis and slough, tendon exposure. Semi-detached borders that indurated and macerated with an area of soft necrosis at proximal borders of wound. Small amt haemopurulent exudate noted. No odor noted. Full thickness Pressure Injury L Heel(L)10.3cm x (W)7.5cm. Base of wound is 60% necrotic,10% slough,30% antonio. Bone is palpable. Borders are indurated with a portion of borders rolled giving heel a shaved appearance. Moderate amt haemopurulent exudate. Mild odor noted.Periwound is purpuric and fluctuant. Full thickness Pressure Injury medial/lateral L foot(L)3.5cm x (W)3.5cm x (D)0.3cm. Base of wound is antonio. Borders and periwound are purpuric and fluctuant.Small amt sanguineous exudate noted. Unstageable Pressure Injury Distal/Lateral L foot(L)2.7cm x (W)4.3cm. Base of wound is 80% soft necrosis,20% antonio. Edges are adherent to base of wound. Periwound is purpuric and fluctuant. Full thickness Pressure Injury R heel Plantar(L)8.5cm x (W)9cm. Base of pressure with scattered necrosis and slough,otherwise base of wound is antonio. Edges are macerated with surrounding necrosis. Small amt seropurulent exudate noted.Mild odor noted. Stable dry eschar dorsal R foot1.5cm x (W)1cm. Edges are adherent to base of wound. No erythema,induration or fluctuance periwound. Stable dry eschar distal/lateral R foot (L)0.8cm x (W)0.8cm. NO erythema,induration or fluctuance periwound. R foot is edematous. Tx.Plan: Cleanse Sacral wound with Dakin's Kristel 0.25%. Apply Dakin's moistened kerlix to wound. Apply Triad periwound. Cover with Optifoam drsg. Change Daily and prn. Cleanse L trochanteric Wound with Dakin's Kristel 0.25%. Loosely pack with Dakin's moistened Kerlix, Apply Moisture Barrier Periwound. Cover with Optifoam drsg Daily and prn. Cleanse R Ischial wound with Dakin's Kristel 0.25%. Apply Dakin's moistened gauze to wound. Apply Moisture Barrier Paste periwound. Cover with Optifoam drsg Daily and prn. Cleanse wounds Lateral R lower extremity, R Heel and Lateral R foot with Dakin's Kristel 0.25%. Place Dakin's Moistened gauze to wounds. Apply Triad Paste along edges of wound. Cover wounds with ABD Pads. Wrap with Kerlix from Base of toes. Cleanse wound R heel with Dakin's Kristel 0.25%. Apply Dakin's moistened Gauze to wound. Apply Triad Periwound. Cover with ABD PAd and wrap with Kerlix. Swab dry Eschar dorsal and Lateral aspect of R foot .Cover with Abd Pads and Wrap with Kerlix Daily and prn. Wash GT site with Soap and water. Apply Triad Paste Daily and prn(Leave Open to Air) Reposition at least every 2hours or as tolerated. Place Pillow Between Knees. Off-Load Heels with Pillow. APM/TERRIE Mattress overlay. (2) Anemia Assessment & Plan: trend h/h prbc prn (3) UTI (urinary tract infection) (4) Pleural effusion, left Assessment & Plan: Lungs: Hazy left lung attenuation could be due to consolidation, pulmonary edema; correlate with presentation. Retrocardiac atelectasis without or with consolidation. Pleural space: Small-moderate left pleural effusion with passive atelectasis. No pneumothorax. Heart: Unremarkable. No cardiomegaly. Mediastinum: Unremarkable. Bones/joints: No acute abnormality Tubes, lines and devices: Tracheostomy. Right upper extremity PICC tip in the mid SVC. IMPRESSION: 1. Tracheostomy. 2. Right upper extremity PICC tip in the mid SVC. 3. Small-moderate left pleural effusion with passive atelectasis. 4. Hazy left lung attenuation could be due to consolidation, pulmonary edema; correlate with presentation. 5. Retrocardiac atelectasis without or with consolidation. 6. Recommend CT chest with IV contrast to further characterize these findings. (5) Malfunction of gastrostomy tube Assessment & Plan: DAILY ESTIMATED NEEDS: Needs based on Wounds, pulmonary/ 74.5kg 25-30 kcals/kg 7855-3573 total kcals 1.5-2 g protein/kg 111-149 g total protein 25-30 mL/kg 1960-2528 total fluid mLs NUTRITION DIAGNOSIS: * Swallowing difficulty R/T dysphagia, h/o craniotomy, respiratory failure as evidenced by pt on T-collar, GJ tube dependent. * Increased kcal/prot/micronutrients needs R/T wound healing as evidenced by pt admitted w/ multiple advanced wounds including full thickness wound x 7 and unstageable wounds x 2, refer to WC eval. CURRENT TF:Jevity 1.2 @ 60ml/hr x 24 hrs-> now Glucerna 1.2 ENTERAL NUTRITION RECOMMENDATIONS: Glucerna 1.2 @ 65ml/hr x 24 hrs + Prosource 1pkt TID to provide 1560ml, 1872kcal, 94g+ 33g prot, 1259ml free water * Increase goal rate to 65ml/hr x 24 hrs to better meet est needs * Add Prosource 1pkt TID to meet increased protein needs * HOB over 30 degrees/ water flush 150ml q 6hrs without IVF ADDITIONAL RECOMMENDATIONS: * Calibrated bedscale wt * Wound Care: Con't Vit C 500mg BID, ZnSO4 220mg QD x 10 days add Stevie BID * Monitor BGs, need for carb controlled TF -> now on Glucerna 1.2 * Monitor lytes, replete as needed (6) Acute respiratory failure with hypoxia (7) HCAP (healthcare-associated pneumonia) Deny Westfall Jul 31, 2020 12:20
[2020-07-31 16:00] VITALS: BP 118/81
--- NOTE | 2020-07-31 16:05 | Pulmonology Progress Note ---
Subjective ROS Limited/Unobtainable: No Allergies: Coded Allergies: No Known Allergies (Unverified , 11/02/19) All Systems: reviewed and negative except above Subjective CARE NOTED nonverbal on oxygen no distress trach collar Objective Last 24 Hour Vital Signs Date Time Temp Pulse Resp B/P (MAP) Pulse Ox O2 Delivery O2 Flow Rate FiO2 07/31/20 13:20 93 T-Piece 10.0 40 07/31/20 10:03 97 137/87 07/31/20 07:45 92 T-Piece 10.0 40 07/31/20 04:00 95 07/31/20 04:00 98.4 97 24 129/71 (90) 98 07/31/20 01:00 92 T-Piece 10.0 40 07/31/20 00:00 97.7 89 26 136/74 (94) 98 07/31/20 00:00 89 07/30/20 21:42 95 138/75 07/30/20 21:00 Trach Collar 10.0 07/30/20 20:00 98.1 96 24 127/71 (89) 93 07/30/20 20:00 95 07/30/20 19:53 92 T-Piece 10.0 40 07/30/20 17:30 98.1 07/30/20 16:28 98.1 Intake and Output 07/30/20 07/31/20 19:00 07:00 Intake Total 960 ml Output Total 200 ml 1100 ml Balance -200 ml -140 ml Intake Free Water 300 ml Tube Feeding 660 ml Output Urine Total 200 ml 900 ml Stool Total 200 ml # Voids 1 1 # Bowel Movements 1 Objective WDWN NAD awake chronically ill moderate breath sounds bilaterally without rhonchi or wheeze [id number] NABS nontender GT no CCE nonfocal weak wounds noted Laboratory Tests 07/31/20 03:15: Sodium Level 147H, Potassium Level 4.7, Chloride Level 110H, Carbon Dioxide Level 35H, Anion Gap 2L, Blood Urea Nitrogen 35H, Creatinine 1.1, Estimat Glomerular Filtration Rate > 60, Glucose Level 104, Calcium Level 8.7 Current Medications Medications (Trade) Dose Ordered Sig/Clive Route PRN Reason Start Time Stop Time Status Last Admin Dose Admin Acetaminophen (Tylenol) 650 mg Q4H PRN GT Temp >100.5 07/18/20 09:30 08/17/20 09:29 07/30/20 15:58 Acetaminophen (Tylenol) 650 mg Q4H PRN RECTAL Temp >100.5 07/14/20 13:30 08/13/20 13:29 Amiodarone HCl (Cordarone) 200 mg DAILY@1800 GT 07/30/20 18:00 10/28/20 17:59 07/30/20 17:34 Ascorbic Acid (Vitamin C) 250 mg TWICE A DAY GT 07/16/20 18:00 08/15/20 17:59 07/31/20 10:04 Atorvastatin Calcium (Lipitor) 10 mg BEDTIME ORAL 07/24/20 21:00 10/22/20 20:59 07/30/20 20:12 Chlorhexidine Gluconate (Jennifer-Hex 2%) 1 applic DAILY@2000 TOPIC 07/17/20 20:00 10/15/20 19:59 07/30/20 20:12 Famotidine (Pepcid) 20 mg Q12HR GT 07/16/20 21:00 10/14/20 20:59 07/31/20 10:03 Finasteride (Proscar) 5 mg DAILY ORAL 07/15/20 09:00 10/13/20 08:59 07/31/20 10:03 Hydralazine HCl (Apresoline) 25 mg Q6H PRN GT SBP above 150 07/24/20 23:30 10/22/20 23:29 07/26/20 05:22 Levetiracetam (Keppra) 1,000 mg Q12HR ORAL 07/14/20 21:00 08/13/20 20:59 07/31/20 10:03 Metoprolol Tartrate (Lopressor) 50 mg Q12HR ORAL 07/25/20 22:15 10/23/20 22:14 07/31/20 10:03 Multivitamins (Multivitamins) 1 tab DAILY GT 07/17/20 09:00 08/16/20 08:59 07/31/20 10:03 Sodium Hypochlorite (Dakin's Half Strength) 1 applic DAILY TOPIC 07/16/20 13:00 08/15/20 12:59 07/31/20 10:04 Zinc Sulfate (Zinc Sulfate) 220 mg DAILY GT 07/27/20 09:00 10/25/20 08:59 1/14/21 10:03 Assessment/Plan Assessment/Plan Impression: Healthcare-associated pneumonia Acute respiratory failure with hypoxia Tracheostomy status Pleural effusion, left-recurrent Decubitus ulcers Urinary tract infection Anemia S/p previous Craniotomy, RCA occlusion, 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
[2020-07-31] MEDS ORDERED: Tubing IV Secondary IV ONE (17:53)
[2020-07-31] MEDS ORDERED: NS 500ML ONE (17:53)
[2020-07-31] MEDS: Amiodarone 200mg tab GT SCH (17:58)
--- NOTE | 2020-07-31 19:02 | NUR ---
NURSE NOTES: Pt. received from Gerson SMALLWOOD. Pt. asleep, breathing even and unlabored via trach collar at 10L, no indications of SOB, no indications of pain at this time. PICC KIZZY intact and patent, dressing CDI. [place] intact and draining yellow urine well. Rectal tube intact to drainage bag. Gtube running glucerna 1.2 at 60cc. Bed low and locked, head of bed elevated and padded, side rails x3 up, bed alarm active, and call light in reach.
--- NOTE | 2020-07-31 19:38 | NUR ---
NURSE HAND-OFF REPORT: Important Events on Shift:[] antonia HONG Patient Status: [] full code Diet: [] GT tube glucerna 1.2 Pending Orders: [] Pending Results/Labs:[] Pending MD notification:[] Latest Vital Signs: Temperature 96.8 , Pulse 59 , B/P 118 /81 , Respiratory Rate 18 , O2 SAT 94 , Trach Collar, O2 Flow Rate 10.0 . Vital Sign Comment: [] EKG Rhythm: Sinus Rhythm Rhythm change?: N Notified?: N -Dr. Aubree VALDEZ Response: Message left await call Latest Ramirez Fall Score: 50 Fall Risk: High Risk Safety Measures: Call light Within Reach, Bed Alarm Zone 1, Side Rails Side Rails x2, Bed position Low and Locked. Fall Precautions: Yellow Socks Yellow Gown Patient Fall Education Report given to []Kate Christine RN
[2020-07-31 20:00] VITALS: BP 113/68
[2020-07-31] MEDS: Dyna-Hex 2% Top Sol 2oz TOPIC SCH (20:28)
[2020-07-31] MEDS: Acetaminophen 650mg/20.3ml GT PRN (20:50)
--- NOTE | 2020-07-31 22:43 | General Progress Note ---
Subjective Allergies: Coded Allergies: No Known Allergies (Unverified , 11/02/19) Subjective Above noted non communicative stools brown tolerating TF Objective Last 24 Hour Vital Signs Date Time Temp Pulse Resp B/P (MAP) Pulse Ox O2 Delivery O2 Flow Rate FiO2 07/31/20 21:20 99.1 07/31/20 21:00 Trach Collar 10.0 07/31/20 20:29 111 113/68 07/31/20 16:00 96.8 59 18 118/81 (93) 94 07/31/20 16:00 112 07/31/20 13:20 93 T-Piece 10.0 40 07/31/20 12:00 92 07/31/20 12:00 97.8 98 19 117/62 (80) 91 07/31/20 10:03 97 137/87 07/31/20 09:00 Trach Collar 10.0 07/31/20 08:00 98.6 97 20 137/87 (104) 92 07/31/20 08:00 107 07/31/20 07:45 92 T-Piece 10.0 40 07/31/20 04:00 95 07/31/20 04:00 98.4 97 24 129/71 (90) 98 07/31/20 01:00 92 T-Piece 10.0 40 07/31/20 00:00 97.7 89 26 136/74 (94) 98 07/31/20 00:00 89 Intake and Output 07/30/20 07/31/20 19:00 07:00 Intake Total 960 ml Output Total 200 ml 1100 ml Balance -200 ml -140 ml Intake Free Water 300 ml Tube Feeding 660 ml Output Urine Total 200 ml 900 ml Stool Total 200 ml # Voids 1 1 # Bowel Movements 1 Laboratory Tests 07/31/20 03:15: Sodium Level 147H, Potassium Level 4.7, Chloride Level 110H, Carbon Dioxide Level 35H, Anion Gap 2L, Blood Urea Nitrogen 35H, Creatinine 1.1, Estimat Glomerular Filtration Rate > 60, Glucose Level 104, Calcium Level 8.7 Height (Feet): 5 Height (Inches): 4.00 Weight (Pounds): 171 Objective Eldely WM NCAT (+) trach , T tube Coarse BS RRR abd soft (+) GT ext no edema Assessment/Plan Status: stable, progressing Assessment/Plan: Assessment - UGIB - resolved - Anemia, s/p transfusion - h/o PUD - resp failure, s/p trach - dysphagia, s/p PEG - atrial fibrillation - h/o DVT - hypernatremia Recommendations - anticoagulation - H2B BID indefinitely - TF -- increase free water - follow H&H Akiko Rai MD Jul 31, 2020 22:43
[2020-08-01] VITALS: BP 110/58
[2020-08-01 04:00] VITALS: BP 94/56
--- NOTE | 2020-08-01 04:34 | NUR ---
NURSE NOTES: Dressings changed on bilateral legs, sacral, and buttocks. Dressings saturated, bleeding noted.
[2020-08-01 05:54] LABS: ANION GAP 1 mmol/L (5-15); BLOOD UREA NITROGEN 35 mg/dL (7-18); CALCIUM 8.6 MG/DL (8.5-10.1); CARBON DIOXIDE 36 MMOL/L (21-32); CHLORIDE 112 MMOL/L (98-107); CREATININE 1.2 MG/DL (0.55-1.30); POTASSIUM 4.5 MMOL/L (3.5-5.1); SODIUM 149 MMOL/L (136-145)
--- NOTE | 2020-08-01 06:32 | NUR ---
NURSE HAND-OFF REPORT: Important Events on Shift:[febrile at start of shift, now resolved. Gtube with free water flush as ordered, no residuals; leg, heels, sacral, and buttocks dressings changed; PRN suctioning performed.] Patient Status: stable Diet: glucerna 1.2 60cc with water flush 100cc q 4hr Pending Orders: na Pending Results/Labs:na Pending MD notification: na Latest Vital Signs: Temperature 99.1 , Pulse 92 , B/P 94 /56 , Respiratory Rate 18 , O2 SAT 96 , Trach Collar, O2 Flow Rate 10.0 . Vital Sign Comment: [] EKG Rhythm: Sinus Rhythm Rhythm change?: N MD Notified?: MD Response: l Latest Ramirez Fall Score: 50 Fall Risk: High Risk Safety Measures: Call light Within Reach, Bed Alarm Zone 1, Side Rails Side Rails x2, Bed position Low and Locked. Fall Precautions: Yellow Socks Yellow Gown Patient Fall Education Report given to [].
--- NOTE | 2020-08-01 07:15 | NUR ---
HAND-OFF: Report given to SELIN Cook.
--- NOTE | 2020-08-01 07:17 | NUR ---
NURSE NOTES: Report received from Matthew SMALLWOOD. Patient seen on rounds, GCS 4 (E2, V1, M1), FLACC 0, on trache collar at 10lpm with no signs of acute distress, noted thick, copious whitish green secretions. PICC on right upper arm patent and intact. Gtube patent and infusing Glucerna 1.2@ 60ml/hr, no residuals reported, HOB at 45 degrees. [place] cath secured and draining. Nurse reports wound dressings were changed last night, will reassess today. Bed low and locked, siderails up x2 and padded, zone alarms on 1. Will continue with plan of care.
[2020-08-01 08:00] VITALS: BP 118/75
[2020-08-01] MEDS: Zinc Sulfate 220mg GT SCH (08:43)
[2020-08-01] MEDS: Ascorbic Acid 500mg tab GT SCH ×2 (08:43→17:11)
[2020-08-01] MEDS: Dakin's 0.25% (Half Strength) 16oz TOPIC SCH (09:00)
[2020-08-01] MEDS: Metoprolol Tartrate 50mg tab ORAL SCH ×2 (09:00→21:20)
--- NOTE | 2020-08-01 09:12 | NUR ---
RD ASSESSMENT & RECOMMENDATIONS SEE CARE ACTIVITY FOR COMPLETE ASSESSMENT DAILY ESTIMATED NEEDS: Needs based on Wounds, pulmonary/ 74.5kg 25-30 kcals/kg 5760-9003 total kcals 1.5-2 g protein/kg 111-149 g total protein 25-30 mL/kg 8798-0610 total fluid mLs NUTRITION DIAGNOSIS: * Swallowing difficulty R/T dysphagia, h/o craniotomy, respiratory failure as evidenced by pt on T-collar, GJ tube dependent. * Increased kcal/prot/micronutrients needs R/T wound healing as evidenced by pt admitted w/ multiple advanced wounds including full thickness wound x 7 and unstageable wounds x 2, refer to WC eval. CURRENT TF:Jevity 1.2 @ 60ml/hr x 24 hrs-> now Glucerna 1.2 ENTERAL NUTRITION RECOMMENDATIONS: Glucerna 1.2 @ 65ml/hr x 24 hrs + Prosource 1pkt TID to provide 1560ml, 1872kcal, 94g+ 33g prot, 1259ml free water * Increase goal rate to 65ml/hr x 24 hrs to better meet est needs * Add Prosource 1pkt TID to meet increased protein needs * HOB over 30 degrees/ water flush 180ml q 6hrs without IVF ADDITIONAL RECOMMENDATIONS: * Calibrated bedscale wt * Wound Care: Con't Vit C 500mg BID, ZnSO4 220mg QD x 10 days add Stevie BID * Monitor BGs, need for carb controlled TF -> now on Glucerna 1.2 * Monitor lytes, replete as needed
--- NOTE | 2020-08-01 10:15 | NUR ---
CASE MANAGEMENT:REVIEW 08/01/20 SI: PNA. UTI. BACTEREMIA. UGIB 99.2 92 18 94/56 96% ON 10L/40% VIA TRACH COLLAR NA+149 CO2+36 BUN+35 IS: IVF@75/HR COREG GT Q12 LOPRESSOR GT Q12 KEPPRA GT Q12 AMIODARONE GT Q12 ZINC GT QD : TELEMETRY STATUS DCP: FROM HOME PLAN: WEAN OXYGEN TO LEVEL OF APPROPRIATENESS FOR HOME
--- NOTE | 2020-08-01 10:56 | Pulmonology Progress Note ---
Subjective ROS Limited/Unobtainable: Yes Allergies: Coded Allergies: No Known Allergies (Unverified , 11/02/19) All Systems: reviewed and negative except above Subjective CARE NOTED nonverbal on oxygen no distress trach collar Objective Last 24 Hour Vital Signs Date Time Temp Pulse Resp B/P (MAP) Pulse Ox O2 Delivery O2 Flow Rate FiO2 08/01/20 04:00 99.1 92 18 94/56 (69) 96 08/01/20 04:00 92 08/01/20 01:19 93 T-Piece 10.0 40 08/01/20 00:00 99.2 88 18 110/58 (75) 96 08/01/20 00:00 88 07/31/20 21:20 99.1 07/31/20 21:00 Trach Collar 10.0 07/31/20 20:29 111 113/68 07/31/20 20:16 94 T-Piece 10.0 40 07/31/20 20:00 100.4 113 20 113/68 (83) 94 07/31/20 20:00 113 07/31/20 16:00 96.8 59 18 118/81 (93) 94 07/31/20 16:00 112 07/31/20 13:20 93 T-Piece 10.0 40 07/31/20 12:00 92 07/31/20 12:00 97.8 98 19 117/62 (80) 91 Intake and Output 07/31/20 08/01/20 19:00 07:00 Intake Total 960 ml Output Total 140 ml 600 ml Balance -140 ml 360 ml Intake Free Water 300 ml Tube Feeding 660 ml Output Urine Total 140 ml 600 ml # Voids 3 1 Objective WDWN NAD awake chronically ill moderate breath sounds bilaterally without rhonchi or wheeze [id number] NABS nontender GT no CCE nonfocal weak wounds noted Laboratory Tests 08/01/20 03:30: Sodium Level 149H, Potassium Level 4.5, Chloride Level 112H, Carbon Dioxide Level 36H, Anion Gap 1L, Blood Urea Nitrogen 35H, Creatinine 1.2, Estimat Glomerular Filtration Rate > 60, Glucose Level 108H, Calcium Level 8.6 Current Medications Medications (Trade) Dose Ordered Sig/Clive Route PRN Reason Start Time Stop Time Status Last Admin Dose Admin Acetaminophen (Tylenol) 650 mg Q4H PRN GT Temp >100.5 07/18/20 09:30 08/17/20 09:29 07/31/20 20:50 Acetaminophen (Tylenol) 650 mg Q4H PRN RECTAL Temp >100.5 07/14/20 13:30 08/13/20 13:29 Amiodarone HCl (Cordarone) 200 mg DAILY@1800 GT 07/30/20 18:00 10/28/20 17:59 07/31/20 17:58 Ascorbic Acid (Vitamin C) 250 mg TWICE A DAY GT 07/16/20 18:00 08/15/20 17:59 08/01/20 08:43 Atorvastatin Calcium (Lipitor) 10 mg BEDTIME ORAL 07/24/20 21:00 10/22/20 20:59 07/31/20 20:29 Chlorhexidine Gluconate (Jennifer-Hex 2%) 1 applic DAILY@2000 TOPIC 07/17/20 20:00 10/15/20 19:59 07/31/20 20:28 Famotidine (Pepcid) 20 mg Q12HR GT 07/16/20 21:00 10/14/20 20:59 08/01/20 08:43 Finasteride (Proscar) 5 mg DAILY ORAL 07/15/20 09:00 10/13/20 08:59 08/01/20 08:43 Hydralazine HCl (Apresoline) 25 mg Q6H PRN GT SBP above 150 07/24/20 23:30 10/22/20 23:29 07/26/20 05:22 Levetiracetam (Keppra) 1,000 mg Q12HR ORAL 07/14/20 21:00 08/13/20 20:59 08/01/20 08:42 Metoprolol Tartrate (Lopressor) 50 mg Q12HR ORAL 07/25/20 22:15 10/23/20 22:14 07/31/20 20:29 Multivitamins (Multivitamins) 1 tab DAILY GT 07/17/20 09:00 08/16/20 08:59 08/01/20 08:44 Sodium Hypochlorite (Dakin's Half Strength) 1 applic DAILY TOPIC 07/16/20 13:00 08/15/20 12:59 07/31/20 10:04 Zinc Sulfate (Zinc Sulfate) 220 mg DAILY GT 07/27/20 09:00 10/25/20 08:59 08/01/20 08:43 Assessment/Plan Assessment/Plan Impression: Healthcare-associated pneumonia Acute respiratory failure with hypoxia Tracheostomy status Pleural effusion, left-recurrent Decubitus ulcers Urinary tract infection Anemia S/p previous Craniotomy, RCA occlusion, DRUG AND ALCOHOL TREATMENT SPECIALIST shunt Seizure history GERD, dysphagia s/p GJ tube h/o Hypertension h/o Atrial fibrillation Previous DVT and Pulmonary Embolism, Plan ID clearance events reviewed monitor HH for change J tube feeds O2 - taper; still high nebs as needed Wound care nurse Surgery for wounds Cardiology follow up 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
--- NOTE | 2020-08-01 11:05 | Infectious Diseases Prog Note ---
Assessment/Plan Assessment/Plan antibiotics : none A 1. aspiration pneumonia. COVID19 test is negative. 2. coag neg staph line sepsis s/p rx 3. Hypertension. 4. Atrial fibrillation. 5. anemia 6. respiratory failure S/p tracheostomy 7. Left pleural effusion P 1. observe off antibiotics 2. will follow up cultures Subjective ROS Limited/Unobtainable: Yes Allergies: Coded Allergies: No Known Allergies (Unverified , 11/02/19) Objective Last 24 Hour Vital Signs Date Time Temp Pulse Resp B/P (MAP) Pulse Ox O2 Delivery O2 Flow Rate FiO2 08/01/20 09:00 104 118/75 08/01/20 04:00 99.1 92 18 94/56 (69) 96 08/01/20 04:00 92 08/01/20 01:19 93 T-Piece 10.0 40 08/01/20 00:00 99.2 88 18 110/58 (75) 96 08/01/20 00:00 88 07/31/20 21:20 99.1 07/31/20 21:00 Trach Collar 10.0 07/31/20 20:29 111 113/68 07/31/20 20:16 94 T-Piece 10.0 40 07/31/20 20:00 100.4 113 20 113/68 (83) 94 07/31/20 20:00 113 07/31/20 16:00 96.8 59 18 118/81 (93) 94 07/31/20 16:00 112 07/31/20 13:20 93 T-Piece 10.0 40 07/31/20 12:00 92 07/31/20 12:00 97.8 98 19 117/62 (80) 91 Height (Feet): 5 Height (Inches): 4.00 Weight (Pounds): 171 HEENT: status post trach Respiratory/Chest: lungs clear Cardiovascular: normal rate, regular rhythm, no gallop/murmur Abdomen: soft, non tender, other - GT Extremities: no edema Laboratory Tests Test 08/01/20 03:30 Sodium Level 149 MMOL/L (136-145) H Potassium Level 4.5 MMOL/L (3.5-5.1) Chloride Level 112 MMOL/L (98-107) H Carbon Dioxide Level 36 MMOL/L (21-32) H Anion Gap 1 mmol/L (5-15) L Blood Urea Nitrogen 35 mg/dL (7-18) H Creatinine 1.2 MG/DL (0.55-1.30) Estimat Glomerular Filtration Rate > 60 mL/min (>60) Glucose Level 108 MG/DL (74-106) H Calcium Level 8.6 MG/DL (8.5-10.1) Current Medications Medications (Trade) Dose Ordered Sig/Clive Route PRN Reason Start Time Stop Time Status Last Admin Dose Admin Acetaminophen (Tylenol) 650 mg Q4H PRN GT Temp >100.5 07/18/20 09:30 08/17/20 09:29 07/31/20 20:50 Acetaminophen (Tylenol) 650 mg Q4H PRN RECTAL Temp >100.5 07/14/20 13:30 08/13/20 13:29 Amiodarone HCl (Cordarone) 200 mg DAILY@1800 GT 07/30/20 18:00 10/28/20 17:59 07/31/20 17:58 Ascorbic Acid (Vitamin C) 250 mg TWICE A DAY GT 07/16/20 18:00 08/15/20 17:59 08/01/20 08:43 Atorvastatin Calcium (Lipitor) 10 mg BEDTIME ORAL 07/24/20 21:00 10/22/20 20:59 07/31/20 20:29 Chlorhexidine Gluconate (Jennifer-Hex 2%) 1 applic DAILY@2000 TOPIC 07/17/20 20:00 10/15/20 19:59 07/31/20 20:28 Famotidine (Pepcid) 20 mg Q12HR GT 07/16/20 21:00 10/14/20 20:59 08/01/20 08:43 Finasteride (Proscar) 5 mg DAILY ORAL 07/15/20 09:00 10/13/20 08:59 08/01/20 08:43 Hydralazine HCl (Apresoline) 25 mg Q6H PRN GT SBP above 150 07/24/20 23:30 10/22/20 23:29 07/26/20 05:22 Levetiracetam (Keppra) 1,000 mg Q12HR ORAL 07/14/20 21:00 08/13/20 20:59 08/01/20 08:42 Metoprolol Tartrate (Lopressor) 50 mg Q12HR ORAL 07/25/20 22:15 10/23/20 22:14 08/01/20 09:00 Multivitamins (Multivitamins) 1 tab DAILY GT 07/17/20 09:00 08/16/20 08:59 08/01/20 08:44 Sodium Hypochlorite (Dakin's Half Strength) 1 applic DAILY TOPIC 07/16/20 13:00 08/15/20 12:59 08/01/20 09:00 Zinc Sulfate (Zinc Sulfate) 220 mg DAILY GT 07/27/20 09:00 10/25/20 08:59 08/01/20 08:43 Kristie Reina MD Aug 01, 2020 11:05
[2020-08-01 12:00] VITALS: BP 133/73
--- NOTE | 2020-08-01 14:41 | General Progress Note ---
Subjective ROS Limited/Unobtainable: No Constitutional: Reports: malaise, weakness HEENT: Reports: no symptoms Cardiovascular: Reports: no symptoms Respiratory: Reports: cough, shortness of breath Gastrointestinal/Abdominal: Reports: difficulty swallowing Genitourinary: Reports: no symptoms Neurologic/Psychiatric: Reports: pre-existing deficit Endocrine: Reports: no symptoms Hematologic/Lymphatic: Reports: no symptoms Allergies: Coded Allergies: No Known Allergies (Unverified , 11/02/19) All Systems: reviewed and negative except above Subjective no events. w/o complaints. stable on o2. awake but nonverbal and confused. tolerating feeds. no bleeding. labs reviewed Objective Last 24 Hour Vital Signs Date Time Temp Pulse Resp B/P (MAP) Pulse Ox O2 Delivery O2 Flow Rate FiO2 08/01/20 12:18 94 T-Piece 10.0 40 08/01/20 12:00 98.7 110 20 133/73 (93) 97 08/01/20 12:00 98 08/01/20 09:00 Trach Collar 10.0 08/01/20 09:00 104 118/75 08/01/20 08:00 98.3 104 26 118/75 (89) 98 08/01/20 08:00 80 08/01/20 07:35 96 T-Piece 10.0 40 08/01/20 04:00 99.1 92 18 94/56 (69) 96 08/01/20 04:00 92 08/01/20 01:19 93 T-Piece 10.0 40 08/01/20 00:00 99.2 88 18 110/58 (75) 96 08/01/20 00:00 88 07/31/20 21:20 99.1 07/31/20 21:00 Trach Collar 10.0 07/31/20 20:29 111 113/68 07/31/20 20:16 94 T-Piece 10.0 40 07/31/20 20:00 100.4 113 20 113/68 (83) 94 07/31/20 20:00 113 07/31/20 16:00 96.8 59 18 118/81 (93) 94 07/31/20 16:00 112 Intake and Output 07/31/20 08/01/20 19:00 07:00 Intake Total 960 ml Output Total 140 ml 600 ml Balance -140 ml 360 ml Intake Free Water 300 ml Tube Feeding 660 ml Output Urine Total 140 ml 600 ml # Voids 3 1 Laboratory Tests 08/01/20 03:30: Sodium Level 149H, Potassium Level 4.5, Chloride Level 112H, Carbon Dioxide Level 36H, Anion Gap 1L, Blood Urea Nitrogen 35H, Creatinine 1.2, Estimat Glomerular Filtration Rate > 60, Glucose Level 108H, Calcium Level 8.6 Height (Feet): 5 Height (Inches): 4.00 Weight (Pounds): 171 Objective General Appearance: WD/WN, confused EENT: normal ENT inspection Neck: normal alignment Cardiovascular: normal rate, regular rhythm Respiratory/Chest: rhonchi - bilaterally Abdomen: normal bowel sounds, non tender, soft, no organomegaly Edema: no edema noted Leg (L), no edema noted Leg (R) Neurologic: disoriented, aphasia Skin: normal pigmentation Assessment/Plan Problem List: (1) Anemia ICD Codes: D64.9 - Anemia, unspecified SNOMED: 030796949, 957576581 Qualifiers: Qualified Codes: D64.9 - Anemia, unspecified (2) Pleural effusion, left ICD Codes: J90 - Pleural effusion, not elsewhere classified SNOMED: 69626491, 810986937 (3) Malfunction of gastrostomy tube ICD Codes: K94.23 - Gastrostomy malfunction SNOMED: 600801585 (4) Acute respiratory failure with hypoxia ICD Codes: J96.01 - Acute respiratory failure with hypoxia SNOMED: 32518637, 068778295 (5) HCAP (healthcare-associated pneumonia) ICD Codes: J18.9 - Pneumonia, unspecified organism SNOMED: 426713121, 542091288 Status: stable, progressing Assessment/Plan: monitor off abx trach care resp rx Continue suctioning as needed Continue tube feeds chest PT monitor for fever DVT and stress ulcer prophylaxis Monitor on telemetry for recurrent atrial fibrillation. rate control per cards dc eliquis due to bleeding from wounds monitor for bleeding increase water flushes dc planning Angel Jaramillo MD Aug 01, 2020 14:41
[2020-08-01 16:00] VITALS: BP 114/64
--- NOTE | 2020-08-01 16:41 | Surgery Progress Note ---
Surgery Progress Note Subjective Additional Comments no acute events Objective Last 24 Hour Vital Signs Date Time Temp Pulse Resp B/P (MAP) Pulse Ox O2 Delivery O2 Flow Rate FiO2 08/01/20 12:18 94 T-Piece 10.0 40 08/01/20 12:00 98.7 110 20 133/73 (93) 97 08/01/20 12:00 98 08/01/20 09:00 Trach Collar 10.0 08/01/20 09:00 104 118/75 08/01/20 08:00 98.3 104 26 118/75 (89) 98 08/01/20 08:00 80 08/01/20 07:35 96 T-Piece 10.0 40 08/01/20 04:00 99.1 92 18 94/56 (69) 96 08/01/20 04:00 92 08/01/20 01:19 93 T-Piece 10.0 40 08/01/20 00:00 99.2 88 18 110/58 (75) 96 08/01/20 00:00 88 07/31/20 21:20 99.1 07/31/20 21:00 Trach Collar 10.0 07/31/20 20:29 111 113/68 07/31/20 20:16 94 T-Piece 10.0 40 07/31/20 20:00 100.4 113 20 113/68 (83) 94 07/31/20 20:00 113 I&O Intake and Output 07/31/20 08/01/20 18:59 06:59 Intake Total 960 ml Output Total 140 ml 600 ml Balance -140 ml 360 ml Intake Free Water 300 ml Tube Feeding 660 ml Output Urine Total 140 ml 600 ml # Voids 3 1 Dressing: saturated Cardiovascular: RSR Respiratory: decreased breath sounds Abdomen: non-tender, present bowel sounds, non-distended Extremities: no tenderness, no cyanosis Laboratory Tests Test 08/01/20 03:30 Sodium Level 149 MMOL/L (136-145) H Potassium Level 4.5 MMOL/L (3.5-5.1) Chloride Level 112 MMOL/L (98-107) H Carbon Dioxide Level 36 MMOL/L (21-32) H Anion Gap 1 mmol/L (5-15) L Blood Urea Nitrogen 35 mg/dL (7-18) H Creatinine 1.2 MG/DL (0.55-1.30) Estimat Glomerular Filtration Rate > 60 mL/min (>60) Glucose Level 108 MG/DL (74-106) H Calcium Level 8.6 MG/DL (8.5-10.1) Plan Problems: (1) Decubitus skin ulcer Assessment & Plan: Pt presented on admission with PV shunt,Tracheostomy, Contractures and multiple Pressure Injuries.Skin assessed under tracheal collar. Skin is erythematous but without any open wounds. GT site is red and excoriated.Scattered senile purpuras bilat upper extremities. Full thickness Sacral Pressure Injury(L)11.8cm x (W)8cm. Base of wound is 75% mixed necrosis and slough,20% antonio. Bone is palpable at base. Edges are macerated. Mild odor noted. Small amt brown exudate noted. Periwound is indurated and maroon with additional erythema and scattered Partial thickness shearing. Full Thickness Pressure Injury L trochanteric with undermined borders.(L)5cm x (W)7cm x (D)2.6cm, undermining clockwise 11-2 by 4.2cm @11o'clock. Base of wound is 75%% mixed necrosis and slough,25% antonio. Wound has appearance of two wounds secondary necrotic bridge.In addition, periwound at clockwise 10-2o'clock the base is necrotic and fluctuant with marginal erythema. Small amt malodorous haemopurulent exudate noted. Full thickness Pressure Injury L Ischium(L)3.5cm x (W)2.0cm. Base of wound is 80% slough,20% antonio. Surrounding necrotic borders that are fluctuant.Small amt sanguineous exudate. Mild odor noted. Full thickness Pressure Injury lateral L Tibia to L lateral Malleolus(L)24.5cm x (W)3.5cm. Base of wound is antonio with scattered necrosis and slough, tendon exposure. Semi-detached borders that indurated and macerated with an area of soft necrosis at proximal borders of wound. Small amt haemopurulent exudate noted. No odor noted. Full thickness Pressure Injury L Heel(L)10.3cm x (W)7.5cm. Base of wound is 60% necrotic,10% slough,30% antonio. Bone is palpable. Borders are indurated with a portion of borders rolled giving heel a shaved appearance. Moderate amt haemopurulent exudate. Mild odor noted.Periwound is purpuric and fluctuant. Full thickness Pressure Injury medial/lateral L foot(L)3.5cm x (W)3.5cm x (D)0.3cm. Base of wound is antonio. Borders and periwound are purpuric and fluctuant.Small amt sanguineous exudate noted. Unstageable Pressure Injury Distal/Lateral L foot(L)2.7cm x (W)4.3cm. Base of wound is 80% soft necrosis,20% antonio. Edges are adherent to base of wound. Periwound is purpuric and fluctuant. Full thickness Pressure Injury R heel Plantar(L)8.5cm x (W)9cm. Base of pressure with scattered necrosis and slough,otherwise base of wound is antonio. Edges are macerated with surrounding necrosis. Small amt seropurulent exudate noted.Mild odor noted. Stable dry eschar dorsal R foot1.5cm x (W)1cm. Edges are adherent to base of wound. No erythema,induration or fluctuance periwound. Stable dry eschar distal/lateral R foot (L)0.8cm x (W)0.8cm. NO erythema,induration or fluctuance periwound. R foot is edematous. Tx.Plan: Cleanse Sacral wound with Dakin's Kristel 0.25%. Apply Dakin's moistened kerlix to wound. Apply Triad periwound. Cover with Optifoam drsg. Change Daily and prn. Cleanse L trochanteric Wound with Dakin's Kristel 0.25%. Loosely pack with Dakin's moistened Kerlix, Apply Moisture Barrier Periwound. Cover with Optifoam drsg Daily and prn. Cleanse R Ischial wound with Dakin's Kristel 0.25%. Apply Dakin's moistened gauze to wound. Apply Moisture Barrier Paste periwound. Cover with Optifoam drsg Daily and prn. Cleanse wounds Lateral R lower extremity, R Heel and Lateral R foot with Dakin's Kristel 0.25%. Place Dakin's Moistened gauze to wounds. Apply Triad Paste along edges of wound. Cover wounds with ABD Pads. Wrap with Kerlix from Base of toes. Cleanse wound R heel with Dakin's Kristel 0.25%. Apply Dakin's moistened Gauze to wound. Apply Triad Periwound. Cover with ABD PAd and wrap with Kerlix. Swab dry Eschar dorsal and Lateral aspect of R foot .Cover with Abd Pads and Wrap with Kerlix Daily and prn. Wash GT site with Soap and water. Apply Triad Paste Daily and prn(Leave Open to Air) Reposition at least every 2hours or as tolerated. Place Pillow Between Knees. Off-Load Heels with Pillow. APM/TERRIE Mattress overlay. (2) Anemia Assessment & Plan: trend h/h prbc prn (3) UTI (urinary tract infection) (4) Pleural effusion, left Assessment & Plan: Lungs: Hazy left lung attenuation could be due to consolidation, pulmonary edema; correlate with presentation. Retrocardiac atelectasis without or with consolidation. Pleural space: Small-moderate left pleural effusion with passive atelectasis. No pneumothorax. Heart: Unremarkable. No cardiomegaly. Mediastinum: Unremarkable. Bones/joints: No acute abnormality Tubes, lines and devices: Tracheostomy. Right upper extremity PICC tip in the mid SVC. IMPRESSION: 1. Tracheostomy. 2. Right upper extremity PICC tip in the mid SVC. 3. Small-moderate left pleural effusion with passive atelectasis. 4. Hazy left lung attenuation could be due to consolidation, pulmonary edema; correlate with presentation. 5. Retrocardiac atelectasis without or with consolidation. 6. Recommend CT chest with IV contrast to further characterize these findings. (5) Malfunction of gastrostomy tube Assessment & Plan: DAILY ESTIMATED NEEDS: Needs based on Wounds, pulmonary/ 74.5kg 25-30 kcals/kg 3461-2967 total kcals 1.5-2 g protein/kg 111-149 g total protein 25-30 mL/kg 5280-2533 total fluid mLs NUTRITION DIAGNOSIS: * Swallowing difficulty R/T dysphagia, h/o craniotomy, respiratory failure as evidenced by pt on T-collar, GJ tube dependent. * Increased kcal/prot/micronutrients needs R/T wound healing as evidenced by pt admitted w/ multiple advanced wounds including full thickness wound x 7 and unstageable wounds x 2, refer to WC eval. CURRENT TF:Jevity 1.2 @ 60ml/hr x 24 hrs-> now Glucerna 1.2 ENTERAL NUTRITION RECOMMENDATIONS: Glucerna 1.2 @ 65ml/hr x 24 hrs + Prosource 1pkt TID to provide 1560ml, 1872kcal, 94g+ 33g prot, 1259ml free water * Increase goal rate to 65ml/hr x 24 hrs to better meet est needs * Add Prosource 1pkt TID to meet increased protein needs * HOB over 30 degrees/ water flush 150ml q 6hrs without IVF ADDITIONAL RECOMMENDATIONS: * Calibrated bedscale wt * Wound Care: Con't Vit C 500mg BID, ZnSO4 220mg QD x 10 days add Stevie BID * Monitor BGs, need for carb controlled TF -> now on Glucerna 1.2 * Monitor lytes, replete as needed (6) Acute respiratory failure with hypoxia (7) HCAP (healthcare-associated pneumonia) Deny Westfall Aug 01, 2020 16:41
[2020-08-01] MEDS: Amiodarone 200mg tab GT SCH (17:11)
--- NOTE | 2020-08-01 19:42 | NUR ---
NURSE HAND-OFF REPORT: Important Events on Shift: Wound dressings changed, feeding tolerated, still on tpiece 10lpm Patient Status: Stable Diet: GTF Pending Orders: N Pending Results/Labs: N Pending MD notification: N Latest Vital Signs: Temperature 98.8 , Pulse 137 , B/P 114 /64 , Respiratory Rate 21 , O2 SAT 98 , Trach Collar, O2 Flow Rate 10.0 . Vital Sign Comment: EKG Rhythm: Atrial Flutter Rhythm change?: N MD Notified?: N -Dr. Aubree VALDEZ Response: Message left await call Latest Ramirez Fall Score: 50 Fall Risk: High Risk Safety Measures: Call light Within Reach, Bed Alarm Zone 1, Side Rails Side Rails x2, Bed position Low and Locked. Fall Precautions: Yellow Socks Yellow Gown Patient Fall Education Report given to Charmaine/Sandi SMALLWOOD.
[2020-08-01 20:00] VITALS: BP 130/71
--- NOTE | 2020-08-01 20:32 | NUR ---
NURSE NOTES: Received patient report from SELIN Cook. Patient is AO x 0 asleep. Patient shows no signs of distress or pain at the time. Patient is on trach collar on 10L O2 with no signs of respiratory distress. Picc line is intact and patent. There are no signs of erythema, infiltration, or bleeding. G tube feeding running Glucerna 1.2 @ 60 cc/hr. There was no residual noted, patent and flushed. Bed is in the lowest position, call light is within reach, side rails up x3 and padded. Will continue plan of care.
[2020-08-01] MEDS: Dyna-Hex 2% Top Sol 2oz TOPIC SCH (21:17)
--- NOTE | 2020-08-01 22:00 | General Progress Note ---
Subjective Allergies: Coded Allergies: No Known Allergies (Unverified , 11/02/19) Subjective Above noted non communicative stools brown tolerating TF Objective Last 24 Hour Vital Signs Date Time Temp Pulse Resp B/P (MAP) Pulse Ox O2 Delivery O2 Flow Rate FiO2 08/01/20 21:20 104 130/71 08/01/20 20:00 98.8 104 22 130/71 (90) 96 08/01/20 16:00 137 08/01/20 16:00 98.8 107 21 114/64 (81) 98 08/01/20 12:18 94 T-Piece 10.0 40 08/01/20 12:00 98.7 110 20 133/73 (93) 97 08/01/20 12:00 98 08/01/20 09:00 Trach Collar 10.0 08/01/20 09:00 104 118/75 08/01/20 08:00 98.3 104 26 118/75 (89) 98 08/01/20 08:00 80 08/01/20 07:35 96 T-Piece 10.0 40 08/01/20 04:00 99.1 92 18 94/56 (69) 96 08/01/20 04:00 92 08/01/20 01:19 93 T-Piece 10.0 40 08/01/20 00:00 99.2 88 18 110/58 (75) 96 08/01/20 00:00 88 Intake and Output 07/31/20 08/01/20 19:00 07:00 Intake Total 960 ml Output Total 140 ml 600 ml Balance -140 ml 360 ml Intake Free Water 300 ml Tube Feeding 660 ml Output Urine Total 140 ml 600 ml # Voids 3 1 Laboratory Tests 08/01/20 03:30: Sodium Level 149H, Potassium Level 4.5, Chloride Level 112H, Carbon Dioxide Level 36H, Anion Gap 1L, Blood Urea Nitrogen 35H, Creatinine 1.2, Estimat Glomerular Filtration Rate > 60, Glucose Level 108H, Calcium Level 8.6 Height (Feet): 5 Height (Inches): 4.00 Weight (Pounds): 171 Objective Eldely WM NCAT (+) trach , T tube Coarse BS RRR abd soft (+) GT ext no edema Assessment/Plan Status: stable, progressing Assessment/Plan: Assessment - UGIB - resolved - Anemia, s/p transfusion - h/o PUD - resp failure, s/p trach - dysphagia, s/p PEG - atrial fibrillation - h/o DVT - hypernatremia Recommendations - anticoagulation - H2B BID indefinitely - TF -- increase free water - follow H&H Akiko Rai MD Aug 01, 2020 22:00
[2020-08-02] VITALS: BP 135/72
[2020-08-02 04:00] VITALS: BP 110/68
--- NOTE | 2020-08-02 07:15 | NUR ---
NURSE HAND-OFF REPORT: Important Events on Shift:[NA] Patient Status: [Full code] Diet: [Glucerna 1.2] Pending Orders: [] Pending Results/Labs:[] Pending MD notification:[] Latest Vital Signs: Temperature 97.6 , Pulse 110 , B/P 110 /68 , Respiratory Rate 20 , O2 SAT 94 , Trach Collar, O2 Flow Rate 10.0 . Vital Sign Comment: [] EKG Rhythm: Sinus Tachycardia Rhythm change?: N MD Notified?: N -Dr. Aubree VALDEZ Response: Message left await call Latest Ramirez Fall Score: 50 Fall Risk: High Risk Safety Measures: Call light Within Reach, Bed Alarm Zone 1, Side Rails Side Rails x2, Bed position Low and Locked. Fall Precautions: Yellow Socks Yellow Gown Patient Fall Education Report given to [SELIN Cook].
--- NOTE | 2020-08-02 07:48 | NUR ---
NURSE NOTES: Report received from Sandi SMALLWOOD. Patient seen on rounds, GCS 4 (E2, V1, M1), FLACC 0, on trache collar at 10lpm with no signs of acute distress, noted moderate, thick whitish secretions. PICC on right upper arm patent and intact. Gtube patent and infusing Glucerna 1.2@ 60ml/hr, no residuals reported, HOB at 45 degrees. [place] cath secured and draining. Rectal tube intact and draining. Nurse reports wound dressings were changed last night, will reassess today. Bed low and locked, siderails up x2 and padded, zone alarms on 1. Will continue with plan of care.
[2020-08-02 08:00] VITALS: BP 140/82
[2020-08-02] MEDS: Metoprolol Tartrate 50mg tab ORAL SCH ×2 (08:48→21:15)
[2020-08-02] MEDS: Zinc Sulfate 220mg GT SCH (08:49)
[2020-08-02] MEDS: Ascorbic Acid 500mg tab GT SCH ×2 (08:49→17:06)
[2020-08-02] MEDS: Dakin's 0.25% (Half Strength) 16oz TOPIC SCH (08:57)
--- NOTE | 2020-08-02 11:45 | Surgery Progress Note ---
Surgery Progress Note Subjective Additional Comments stable Objective Last 24 Hour Vital Signs Date Time Temp Pulse Resp B/P (MAP) Pulse Ox O2 Delivery O2 Flow Rate FiO2 08/02/20 09:00 Trach Collar 10.0 08/02/20 08:48 125 140/82 08/02/20 08:00 123 08/02/20 08:00 97.7 125 26 140/82 (101) 92 08/02/20 07:10 94 T-Piece 10.0 40 08/02/20 04:00 97.6 111 20 110/68 (82) 94 08/02/20 04:00 110 08/02/20 01:26 94 T-Piece 10.0 40 08/02/20 00:00 107 08/02/20 00:00 99.1 108 22 135/72 (93) 96 08/01/20 21:20 104 130/71 08/01/20 21:00 Trach Collar 10.0 08/01/20 20:17 96 T-Piece 10.0 40 08/01/20 20:00 98.8 104 22 130/71 (90) 96 08/01/20 20:00 97 08/01/20 16:00 137 08/01/20 16:00 98.8 107 21 114/64 (81) 98 08/01/20 12:18 94 T-Piece 10.0 40 08/01/20 12:00 98.7 110 20 133/73 (93) 97 08/01/20 12:00 98 I&O Intake and Output 08/01/20 08/02/20 19:00 07:00 Intake Total 960 ml Output Total 700 ml 2200 ml Balance -700 ml -1240 ml Intake Free Water 300 ml Tube Feeding 660 ml Output Urine Total 700 ml 2200 ml # Voids 1 Dressing: saturated Cardiovascular: RSR Respiratory: decreased breath sounds Abdomen: non-tender, present bowel sounds Extremities: no tenderness, no cyanosis Plan Problems: (1) Decubitus skin ulcer Assessment & Plan: Pt presented on admission with PV shunt,Tracheostomy, Contractures and multiple Pressure Injuries.Skin assessed under tracheal collar. Skin is erythematous but without any open wounds. GT site is red and excoriated.Scattered senile purpuras bilat upper extremities. Full thickness Sacral Pressure Injury(L)11.8cm x (W)8cm. Base of wound is 75% mixed necrosis and slough,20% antonio. Bone is palpable at base. Edges are macerated. Mild odor noted. Small amt brown exudate noted. Periwound is in durated and maroon with additional erythema and scattered Partial thickness shearing. Full Thickness Pressure Injury L trochanteric with undermined borders.(L)5cm x (W)7cm x (D)2.6cm, undermining clockwise 11-2 by 4.2cm @11o'clock. Base of wound is 75%% mixed necrosis and slough,25% antonio. Wound has appearance of two wounds secondary necrotic bridge.In addition, periwound at clockwise 10-2o'clock the base is necrotic and fluctuant with marginal erythema. Small amt malodorous haemopurulent exudate noted. Full thickness Pressure Injury L Ischium(L)3.5cm x (W)2.0cm. Base of wound is 80% slough,20% antonio. Surrounding necrotic borders that are fluctuant.Small amt sanguineous exudate. Mild odor noted. Full thickness Pressure Injury lateral L Tibia to L lateral Malleolus(L)24.5cm x (W)3.5cm. Base of wound is antonio with scattered necrosis and slough, tendon exposure. Semi-detached borders that indurated and macerated with an area of soft necrosis at proximal borders of wound. Small amt haemopurulent exudate noted. No odor noted. Full thickness Pressure Injury L Heel(L)10.3cm x (W)7.5cm. Base of wound is 60% necrotic,10% slough,30% antonio. Bone is palpable. Borders are indurated with a portion of borders rolled giving heel a shaved appearance. Moderate amt haemopurulent exudate. Mild odor noted.Periwound is purpuric and fluctuant. Full thickness Pressure Injury medial/lateral L foot(L)3.5cm x (W)3.5cm x (D)0.3cm. Base of wound is antonio. Borders and periwound are purpuric and fluctuant.Small amt sanguineous exudate noted. Unstageable Pressure Injury Distal/Lateral L foot(L)2.7cm x (W)4.3cm. Base of wound is 80% soft necrosis,20% antonio. Edges are adherent to base of wound. Periwound is purpuric and fluctuant. Full thickness Pressure Injury R heel Plantar(L)8.5cm x (W)9cm. Base of pressure with scattered necrosis and slough,otherwise base of wound is antonio. Edges are macerated with surrounding necrosis. Small amt seropurulent exudate noted.Mild odor noted. Stable dry eschar dorsal R foot1.5cm x (W)1cm. Edges are adherent to base of wound. No erythema,induration or fluctuance periwound. Stable dry eschar distal/lateral R foot (L)0.8cm x (W)0.8cm. NO erythema,induration or fluctuance periwound. R foot is edematous. Tx.Plan: Cleanse Sacral wound with Dakin's Kristel 0.25%. Apply Dakin's moistened kerlix to wound. Apply Triad periwound. Cover with Optifoam drsg. Change Daily and prn. Cleanse L trochanteric Wound with Dakin's Kristel 0.25%. Loosely pack with Dakin's moistened Kerlix, Apply Moisture Barrier Periwound. Cover with Optifoam drsg Daily and prn. Cleanse R Ischial wound with Dakin's Kristel 0.25%. Apply Dakin's moistened gauze to wound. Apply Moisture Barrier Paste periwound. Cover with Optifoam drsg Daily and prn. Cleanse wounds Lateral R lower extremity, R Heel and Lateral R foot with Dakin's Kristel 0.25%. Place Dakin's Moistened gauze to wounds. Apply Triad Paste along edges of wound. Cover wounds with ABD Pads. Wrap with Kerlix from Base of toes. Cleanse wound R heel with Dakin's Kristel 0.25%. Apply Dakin's moistened Gauze to wound. Apply Triad Periwound. Cover with ABD PAd and wrap with Kerlix. Swab dry Eschar dorsal and Lateral aspect of R foot .Cover with Abd Pads and Wrap with Kerlix Daily and prn. Wash GT site with Soap and water. Apply Triad Paste Daily and p rn(Leave Open to Air) Reposition at least every 2hours or as tolerated. Place Pillow Between Knees. Off-Load Heels with Pillow. APM/TERRIE Mattress overlay. (2) Anemia Assessment & Plan: trend h/h prbc prn (3) UTI (urinary tract infection) (4) Pleural effusion, left Assessment & Plan: Lungs: Hazy left lung attenuation could be due to consolidation, pulmonary edema; correlate with presentation. Retrocardiac atelectasis without or with consolidation. Pleural space: Small-moderate left pleural effusion with passive atelectasis. No pneumothorax. Heart: Unremarkable. No cardiomegaly. Mediastinum: Unremarkable. Bones/joints: No acute abnormality Tubes, lines and devices: Tracheostomy. Right upper extremity PICC tip in the mid SVC. IMPRESSION: 1. Tracheostomy. 2. Right upper extremity PICC tip in the mid SVC. 3. Small-moderate left pleural effusion with passive atelectasis. 4. Hazy left lung attenuation could be due to consolidation, pulmonary edema; correlate with presentation. 5. Retrocardiac atelectasis without or with consolidation. 6. Recommend CT chest with IV contrast to further characterize these findings. (5) Malfunction of gastrostomy tube Assessment & Plan: DAILY ESTIMATED NEEDS: Needs based on Wounds, pulmonary/ 74.5kg 25-30 kcals/kg 2761-6933 total kcals 1.5-2 g protein/kg 111-149 g total protein 25-30 mL/kg 7286-7448 total fluid mLs NUTRITION DIAGNOSIS: * Swallowing difficulty R/T dysphagia, h/o craniotomy, respiratory failure as evidenced by pt on T-collar, GJ tube dependent. * Increased kcal/prot/micronutrients needs R/T wound healing as evidenced by pt admitted w/ multiple advanced wounds including full thickness wound x 7 and unstageable wounds x 2, refer to WC eval. CURRENT TF:Jevity 1.2 @ 60ml/hr x 24 hrs-> now Glucerna 1.2 ENTERAL NUTRITION RECOMMENDATIONS: Glucerna 1.2 @ 65ml/hr x 24 hrs + Prosource 1pkt TID to provide 1560ml, 1872kcal, 94g+ 33g prot, 1259ml free water * Increase goal rate to 65ml/hr x 24 hrs to better meet est needs * Add Prosource 1pkt TID to meet increased protein needs * HOB over 30 degrees/ water flush 150ml q 6hrs without IVF ADDITIONAL RECOMMENDATIONS: * Calibrated bedscale wt * Wound Care: Con't Vit C 500mg BID, ZnSO4 220mg QD x 10 days add Stevie BID * Monitor BGs, need for carb controlled TF -> now on Glucerna 1.2 * Monitor lytes, replete as needed (6) Acute respiratory failure with hypoxia (7) HCAP (healthcare-associated pneumonia) Deny Westfall Aug 02, 2020 11:45
[2020-08-02 12:00] VITALS: BP 136/80
--- NOTE | 2020-08-02 14:22 | General Progress Note ---
Subjective ROS Limited/Unobtainable: Yes Constitutional: Reports: malaise, weakness HEENT: Reports: no symptoms Cardiovascular: Reports: no symptoms Respiratory: Reports: shortness of breath, sputum Gastrointestinal/Abdominal: Reports: difficulty swallowing Genitourinary: Reports: no symptoms Neurologic/Psychiatric: Reports: pre-existing deficit Endocrine: Reports: no symptoms Hematologic/Lymphatic: Reports: anemia Allergies: Coded Allergies: No Known Allergies (Unverified , 11/02/19) All Systems: reviewed and negative except above Subjective stable on trach collar. nonverbal. weak and lethargic. nonverbal. tolerating feeds. labs noted. Na up. no bleeding form wounds. eliquis dcd several days ago Objective Last 24 Hour Vital Signs Date Time Temp Pulse Resp B/P (MAP) Pulse Ox O2 Delivery O2 Flow Rate FiO2 08/02/20 12:00 98.2 104 24 136/80 (98) 95 08/02/20 12:00 102 08/02/20 09:00 Trach Collar 10.0 08/02/20 08:48 125 140/82 08/02/20 08:00 123 08/02/20 08:00 97.7 125 26 140/82 (101) 92 08/02/20 07:10 94 T-Piece 10.0 40 08/02/20 04:00 97.6 111 20 110/68 (82) 94 08/02/20 04:00 110 08/02/20 01:26 94 T-Piece 10.0 40 08/02/20 00:00 107 08/02/20 00:00 99.1 108 22 135/72 (93) 96 08/01/20 21:20 104 130/71 08/01/20 21:00 Trach Collar 10.0 08/01/20 20:17 96 T-Piece 10.0 40 08/01/20 20:00 98.8 104 22 130/71 (90) 96 08/01/20 20:00 97 08/01/20 16:00 137 08/01/20 16:00 98.8 107 21 114/64 (81) 98 Intake and Output 08/01/20 08/02/20 19:00 07:00 Intake Total 960 ml Output Total 700 ml 2200 ml Balance -700 ml -1240 ml Intake Free Water 300 ml Tube Feeding 660 ml Output Urine Total 700 ml 2200 ml # Voids 1 Height (Feet): 5 Height (Inches): 4.00 Weight (Pounds): 171 Objective General Appearance: WD/WN, confused EENT: normal ENT inspection Neck: normal alignment Cardiovascular: normal rate, regular rhythm Respiratory/Chest: rhonchi - bilaterally Abdomen: normal bowel sounds, non tender, soft, no organomegaly Edema: no edema noted Leg (L), no edema noted Leg (R) Neurologic: disoriented, aphasia Skin: normal pigmentation Assessment/Plan Problem List: (1) Anemia ICD Codes: D64.9 - Anemia, unspecified SNOMED: 096074283, 715763157 Qualifiers: Qualified Codes: D64.9 - Anemia, unspecified (2) Pleural effusion, left ICD Codes: J90 - Pleural effusion, not elsewhere classified SNOMED: 90217472, 748506390 (3) Malfunction of gastrostomy tube ICD Codes: K94.23 - Gastrostomy malfunction SNOMED: 300541578 (4) Acute respiratory failure with hypoxia ICD Codes: J96.01 - Acute respiratory failure with hypoxia SNOMED: 39044139, 252228494 (5) HCAP (healthcare-associated pneumonia) ICD Codes: J18.9 - Pneumonia, unspecified organism SNOMED: 974611137, 950837026 Status: stable, progressing Assessment/Plan: monitor off abx trach care resp rx Continue suctioning as needed Continue tube feeds monitor for fever DVT and stress ulcer prophylaxis Monitor on telemetry for recurrent atrial fibrillation. rate control per cards dc eliquis due to bleeding from wounds monitor for bleeding increase water flushes monitor lytes/sodium level dc planning Angel Jaramillo MD Aug 02, 2020 14:22
--- NOTE | 2020-08-02 15:28 | Pulmonology Progress Note ---
Subjective ROS Limited/Unobtainable: Yes Allergies: Coded Allergies: No Known Allergies (Unverified , 11/02/19) All Systems: reviewed and negative except above Subjective CARE NOTED nonverbal on oxygen no distress trach collar Objective Last 24 Hour Vital Signs Date Time Temp Pulse Resp B/P (MAP) Pulse Ox O2 Delivery O2 Flow Rate FiO2 08/02/20 12:00 98.2 104 24 136/80 (98) 95 08/02/20 12:00 102 08/02/20 09:00 Trach Collar 10.0 08/02/20 08:48 125 140/82 08/02/20 08:00 123 08/02/20 08:00 97.7 125 26 140/82 (101) 92 08/02/20 07:10 94 T-Piece 10.0 40 08/02/20 04:00 97.6 111 20 110/68 (82) 94 08/02/20 04:00 110 08/02/20 01:26 94 T-Piece 10.0 40 08/02/20 00:00 107 08/02/20 00:00 99.1 108 22 135/72 (93) 96 08/01/20 21:20 104 130/71 08/01/20 21:00 Trach Collar 10.0 08/01/20 20:17 96 T-Piece 10.0 40 08/01/20 20:00 98.8 104 22 130/71 (90) 96 08/01/20 20:00 97 08/01/20 16:00 137 08/01/20 16:00 98.8 107 21 114/64 (81) 98 Intake and Output 08/01/20 08/02/20 19:00 07:00 Intake Total 960 ml Output Total 700 ml 2200 ml Balance -700 ml -1240 ml Intake Free Water 300 ml Tube Feeding 660 ml Output Urine Total 700 ml 2200 ml # Voids 1 Objective WDWN NAD awake chronically ill moderate breath sounds bilaterally without rhonchi or wheeze [id number] NABS nontender GT no CCE nonfocal weak wounds noted Current Medications Medications (Trade) Dose Ordered Sig/Clive Route PRN Reason Start Time Stop Time Status Last Admin Dose Admin Acetaminophen (Tylenol) 650 mg Q4H PRN GT Temp >100.5 07/18/20 09:30 08/17/20 09:29 07/31/20 20:50 Acetaminophen (Tylenol) 650 mg Q4H PRN RECTAL Temp >100.5 07/14/20 13:30 08/13/20 13:29 Amiodarone HCl (Cordarone) 200 mg DAILY@1800 GT 07/30/20 18:00 10/28/20 17:59 08/01/20 17:11 Ascorbic Acid (Vitamin C) 250 mg TWICE A DAY GT 07/16/20 18:00 08/15/20 17:59 08/02/20 08:49 Atorvastatin Calcium (Lipitor) 10 mg BEDTIME ORAL 07/24/20 21:00 10/22/20 20:59 08/01/20 21:17 Chlorhexidine Gluconate (Jennifer-Hex 2%) 1 applic DAILY@2000 TOPIC 07/17/20 20:00 10/15/20 19:59 08/01/20 21:17 Famotidine (Pepcid) 20 mg Q12HR GT 07/16/20 21:00 10/14/20 20:59 08/02/20 08:48 Finasteride (Proscar) 5 mg DAILY ORAL 07/15/20 09:00 10/13/20 08:59 08/02/20 08:49 Hydralazine HCl (Apresoline) 25 mg Q6H PRN GT SBP above 150 07/24/20 23:30 10/22/20 23:29 07/26/20 05:22 Levetiracetam (Keppra) 1,000 mg Q12HR ORAL 07/14/20 21:00 08/13/20 20:59 08/02/20 08:48 Metoprolol Tartrate (Lopressor) 50 mg Q12HR ORAL 07/25/20 22:15 10/23/20 22:14 08/02/20 08:48 Multivitamins (Multivitamins) 1 tab DAILY GT 07/17/20 09:00 08/16/20 08:59 08/02/20 08:49 Sodium Hypochlorite (Dakin's Half Strength) 1 applic DAILY TOPIC 07/16/20 13:00 08/15/20 12:59 08/02/20 08:57 Zinc Sulfate (Zinc Sulfate) 220 mg DAILY GT 07/27/20 09:00 10/25/20 08:59 08/02/20 08:49 Assessment/Plan Assessment/Plan Impression: Healthcare-associated pneumonia Acute respiratory failure with hypoxia Tracheostomy status Pleural effusion, left-recurrent Decubitus ulcers Urinary tract infection Anemia S/p previous Craniotomy, RCA occlusion, [employer] shunt Seizure history GERD, dysphagia s/p GJ tube h/o Hypertension h/o Atrial fibrillation Previous DVT and Pulmonary Embolism, Plan ID reviewed events reviewed monitor HH for change J tube feeds O2 - taper; as able nebs as needed Wound care Cardiology follow up [employer] Medications dc planning - awaiting CM and discussed impression, plan, and exam edited and reviewed in detail care discussed with Nikita Arreola MD Aug 02, 2020 15:28
[2020-08-02 16:00] VITALS: BP 128/68
[2020-08-02] MEDS: Amiodarone 200mg tab GT SCH (17:07)
--- NOTE | 2020-08-02 19:12 | NUR ---
NURSE HAND-OFF REPORT: Important Events on Shift: No acute events, still on Tpiece at 10lpm with no acute distress, wound dressings changed Patient Status: Stable Diet: GTF Pending Orders: N Pending Results/Labs:N Pending MD notification:N Latest Vital Signs: Temperature 99.3 , Pulse 113 , B/P 128 /68 , Respiratory Rate 26 , O2 SAT 93 , Trach Collar, O2 Flow Rate 10.0 . Vital Sign Comment: EKG Rhythm: Sinus Tachycardia Rhythm change?: N Notified?: N -Dr. Aubree VALDEZ Response: Message left await call Latest Ramirez Fall Score: 50 Fall Risk: High Risk Safety Measures: Call light Within Reach, Bed Alarm Zone 1, Side Rails Side Rails x2, Bed position Low and Locked. Fall Precautions: Yellow Socks Yellow Gown Patient Fall Education Report given to Sandi SMALLWOOD.
--- NOTE | 2020-08-02 19:47 | General Progress Note ---
Subjective Allergies: Coded Allergies: No Known Allergies (Unverified , 11/02/19) Subjective Above noted non communicative stools brown tolerating TF Objective Last 24 Hour Vital Signs Date Time Temp Pulse Resp B/P (MAP) Pulse Ox O2 Delivery O2 Flow Rate FiO2 08/02/20 16:00 99.3 107 26 128/68 (88) 93 08/02/20 16:00 113 08/02/20 12:50 92 T-Piece 10.0 40 08/02/20 12:00 98.2 104 24 136/80 (98) 95 08/02/20 12:00 102 08/02/20 09:00 Trach Collar 10.0 08/02/20 08:48 125 140/82 08/02/20 08:00 123 08/02/20 08:00 97.7 125 26 140/82 (101) 92 08/02/20 07:10 94 T-Piece 10.0 40 08/02/20 04:00 97.6 111 20 110/68 (82) 94 08/02/20 04:00 110 08/02/20 01:26 94 T-Piece 10.0 40 08/02/20 00:00 107 08/02/20 00:00 99.1 108 22 135/72 (93) 96 08/01/20 21:20 104 130/71 08/01/20 21:00 Trach Collar 10.0 08/01/20 20:17 96 T-Piece 10.0 40 08/01/20 20:00 98.8 104 22 130/71 (90) 96 08/01/20 20:00 97 Intake and Output 0 08/01/20 08/02/20 19:00 07:00 Intake Total 960 ml Output Total 700 ml 2200 ml Balance -700 ml -1240 ml Intake Free Water 300 ml Tube Feeding 660 ml Output Urine Total 700 ml 2200 ml # Voids 1 Height (Feet): 5 Height (Inches): 4.00 Weight (Pounds): 171 Objective Eldely WM NCAT (+) trach , T tube Coarse BS RRR abd soft (+) GT ext no edema Assessment/Plan Status: stable, progressing Assessment/Plan: Assessment - UGIB - resolved - Anemia, s/p transfusion - h/o PUD - resp failure, s/p trach - dysphagia, s/p PEG - atrial fibrillation - h/o DVT - hypernatremia Recommendations - anticoagulation - H2B BID indefinitely - TF -- increase free water - follow H&H Akiko Rai MD Aug 02, 2020 19:47
[2020-08-02 20:00] VITALS: BP 125/70
--- NOTE | 2020-08-02 20:00 | NUR ---
NURSE NOTES: Received patient report from SELIN Lara. Patient is AO x0 awake but nonverbal. Patient shows no signs of distress or pain at the time. Patient is on T piece running 10L of oxygen. Patient shows no signs of respiratory distress. G tube feeding running Glucerna 1.2 @ 60 CC/ HR. There was no residual noted. G tube patent and flushed. PICC line patent and flushed as well. There are no signs of erythema, infiltration, or bleeding. Bed is in the lowest position, call light is within reach, side rails up x3 and patent. Will continue to monitor.
[2020-08-02] MEDS: Acetaminophen 650mg/20.3ml GT PRN (21:15)
[2020-08-02] MEDS: Dyna-Hex 2% Top Sol 2oz TOPIC SCH (21:22)
[2020-08-03] VITALS: BP 117/64
[2020-08-03 04:00] VITALS: BP 109/67
--- NOTE | 2020-08-03 07:12 | NUR ---
NURSE HAND-OFF REPORT: Important Events on Shift:[Dressings changed, pictures taken and uploaded] Patient Status: [Full code] Diet: [Glucerna 1.2] Pending Orders: [] Pending Results/Labs:[] Pending MD notification:[] Latest Vital Signs: Temperature 98.1 , Pulse 97 , B/P 109 /67 , Respiratory Rate 28 , O2 SAT 96 , Trach Collar, O2 Flow Rate 10.0 . Vital Sign Comment: [] EKG Rhythm: Sinus Rhythm Rhythm change?: N MD Notified?: N -Dr. Aubree VALDEZ Response: Message left await call Latest Ramirez Fall Score: 50 Fall Risk: High Risk Safety Measures: Call light Within Reach, Bed Alarm Zone 1, Side Rails Side Rails x2, Bed position Low and Locked. Fall Precautions: Yellow Socks Yellow Gown Patient Fall Education Report given to [SELIN Joseph].
--- NOTE | 2020-08-03 07:33 | NUR ---
NURSE NOTES: Received Pt from SELIN Junior. Pt is stable, no s/s or complaint of distress at this time. Pt is AOx0, nonverbal. Pt is on p200 mattress. unstageable DTI noted on sacral, L trocanter, and BLE. Pt has a KIZZY PICC. Pt bed low and locked, call light in reach and bed alarm on.
[2020-08-03 08:00] VITALS: BP 133/77
[2020-08-03] MEDS: Ascorbic Acid 500mg tab GT SCH ×2 (09:07→16:59)
[2020-08-03] MEDS: Zinc Sulfate 220mg GT SCH (09:07)
[2020-08-03] MEDS: Dakin's 0.25% (Half Strength) 16oz TOPIC SCH (09:08)
[2020-08-03] MEDS: Metoprolol Tartrate 50mg tab ORAL SCH ×2 (09:08→20:33)
--- NOTE | 2020-08-03 09:16 | General Progress Note ---
Subjective ROS Limited/Unobtainable: No Constitutional: Reports: malaise, weakness HEENT: Reports: no symptoms Cardiovascular: Reports: no symptoms Respiratory: Reports: cough, shortness of breath Gastrointestinal/Abdominal: Reports: no symptoms Genitourinary: Reports: no symptoms Neurologic/Psychiatric: Reports: pre-existing deficit Endocrine: Reports: no symptoms Hematologic/Lymphatic: Reports: anemia Allergies: Coded Allergies: No Known Allergies (Unverified , 11/02/19) All Systems: reviewed and negative except above Subjective no changes, stable on trach collar. nonverbal. weak and lethargic. nonverbal. tolerating feeds. labs noted. no bleeding. eliquis dcd several days ago due to bleeding from wounds Objective Last 24 Hour Vital Signs Date Time Temp Pulse Resp B/P (MAP) Pulse Ox O2 Delivery O2 Flow Rate FiO2 08/03/20 09:08 104 133/77 08/03/20 04:00 98.1 101 28 109/67 (81) 96 08/03/20 04:00 97 08/03/20 03:43 95 T-Piece 10.0 40 08/03/20 00:00 99.3 97 26 117/64 (81) 94 08/03/20 00:00 91 08/02/20 21:45 98.9 08/02/20 21:15 108 125/70 08/02/20 21:00 Trach Collar 10.0 08/02/20 20:00 112 08/02/20 20:00 100.8 108 28 125/70 (88) 94 08/02/20 19:41 94 T-Piece 10.0 40 08/02/20 16:00 99.3 107 26 128/68 (88) 93 08/02/20 16:00 113 08/02/20 12:50 92 T-Piece 10.0 40 08/02/20 12:00 98.2 104 24 136/80 (98) 95 08/02/20 12:00 102 Intake and Output 08/02/20 08/03/20 19:00 07:00 Output Total 700 ml 1000 ml Balance -700 ml -1000 ml Output Urine Total 700 ml 1000 ml # Voids 1 # Bowel Movements 1 Height (Feet): 5 Height (Inches): 4.00 Weight (Pounds): 171 Objective General Appearance: WD/WN, confused EENT: normal ENT inspection Neck: normal alignment Cardiovascular: normal rate, regular rhythm Respiratory/Chest: rhonchi - bilaterally Abdomen: normal bowel sounds, non tender, soft, no organomegaly Edema: no edema noted Leg (L), no edema noted Leg (R) Neurologic: disoriented, aphasia Skin: normal pigmentation Assessment/Plan Problem List: (1) Anemia ICD Codes: D64.9 - Anemia, unspecified SNOMED: 311800385, 207543771 Qualifiers: Qualified Codes: D64.9 - Anemia, unspecified (2) Pleural effusion, left ICD Codes: J90 - Pleural effusion, not elsewhere classified SNOMED: 38719916, 953281688 (3) Malfunction of gastrostomy tube ICD Codes: K94.23 - Gastrostomy malfunction SNOMED: 959538383 (4) Acute respiratory failure with hypoxia ICD Codes: J96.01 - Acute respiratory failure with hypoxia SNOMED: 25278437, 648202324 (5) HCAP (healthcare-associated pneumonia) ICD Codes: J18.9 - Pneumonia, unspecified organism SNOMED: 920955630, 971265058 Status: stable, progressing Assessment/Plan: monitor off abx trach care resp rx Continue suctioning as needed Continue tube feeds monitor for fever DVT and stress ulcer prophylaxis Monitor on telemetry for recurrent atrial fibrillation. rate control per cards dc eliquis due to bleeding from wounds monitor for bleeding increase water flushes monitor lytes/sodium level dc planning Angel Jaramillo MD Aug 03, 2020 09:16
--- NOTE | 2020-08-03 10:00 | NUR ---
NURSE NOTES: Wound care done according to wound specialists instruction/note w/ SELIN Reyes.
[2020-08-03 12:00] VITALS: BP 133/72
--- NOTE | 2020-08-03 13:28 | Pulmonology Progress Note ---
Subjective ROS Limited/Unobtainable: Yes Allergies: Coded Allergies: No Known Allergies (Unverified , 11/02/19) All Systems: reviewed and negative except above Subjective CARE NOTED nonverbal on oxygen no distress trach collar Objective Last 24 Hour Vital Signs Date Time Temp Pulse Resp B/P (MAP) Pulse Ox O2 Delivery O2 Flow Rate FiO2 08/03/20 12:00 98.1 102 26 133/72 (92) 96 08/03/20 12:00 105 08/03/20 09:08 104 133/77 08/03/20 09:00 Trach Collar 10.0 08/03/20 08:00 109 08/03/20 08:00 96.1 66 18 133/77 (95) 100 08/03/20 07:11 94 T-Piece 10.0 40 08/03/20 04:00 98.1 101 28 109/67 (81) 96 08/03/20 04:00 97 08/03/20 03:43 95 T-Piece 10.0 40 08/03/20 00:00 99.3 97 26 117/64 (81) 94 08/03/20 00:00 91 08/02/20 21:45 98.9 08/02/20 21:15 108 125/70 08/02/20 21:00 Trach Collar 10.0 08/02/20 20:00 112 08/02/20 20:00 100.8 108 28 125/70 (88) 94 08/02/20 19:41 94 T-Piece 10.0 40 08/02/20 16:00 99.3 107 26 128/68 (88) 93 08/02/20 16:00 113 Intake and Output 08/02/20 08/03/20 19:00 07:00 Output Total 700 ml 1000 ml Balance -700 ml -1000 ml Output Urine Total 700 ml 1000 ml # Voids 1 # Bowel Movements 1 Objective WDWN NAD awake chronically ill moderate breath sounds bilaterally without rhonchi or wheeze [id number] NABS nontender GT no CCE nonfocal weak wounds noted Current Medications Medications (Trade) Dose Ordered Sig/Clive Route PRN Reason Start Time Stop Time Status Last Admin Dose Admin Acetaminophen (Tylenol) 650 mg Q4H PRN GT Temp >100.5 07/18/20 09:30 08/17/20 09:29 08/02/20 21:15 Acetaminophen (Tylenol) 650 mg Q4H PRN RECTAL Temp >100.5 07/14/20 13:30 08/13/20 13:29 Amiodarone HCl (Cordarone) 200 mg DAILY@1800 GT 07/30/20 18:00 10/28/20 17:59 08/02/20 17:07 Ascorbic Acid (Vitamin C) 250 mg TWICE A DAY GT 07/16/20 18:00 08/15/20 17:59 08/03/20 09:07 Atorvastatin Calcium (Lipitor) 10 mg BEDTIME ORAL 07/24/20 21:00 10/22/20 20:59 08/02/20 21:15 Chlorhexidine Gluconate (Jennifer-Hex 2%) 1 applic DAILY@2000 TOPIC 07/17/20 20:00 10/15/20 19:59 08/02/20 21:22 Famotidine (Pepcid) 20 mg Q12HR GT 07/16/20 21:00 10/14/20 20:59 08/03/20 09:07 Finasteride (Proscar) 5 mg DAILY ORAL 07/15/20 09:00 10/13/20 08:59 08/03/20 09:07 Hydralazine HCl (Apresoline) 25 mg Q6H PRN GT SBP above 150 07/24/20 23:30 10/22/20 23:29 07/26/20 05:22 Levetiracetam (Keppra) 1,000 mg Q12HR ORAL 07/14/20 21:00 08/13/20 20:59 08/03/20 09:07 Metoprolol Tartrate (Lopressor) 50 mg Q12HR ORAL 07/25/20 22:15 10/23/20 22:14 08/03/20 09:08 Multivitamins (Multivitamins) 1 tab DAILY GT 07/17/20 09:00 08/16/20 08:59 08/03/20 09:07 Sodium Hypochlorite (Dakin's Half Strength) 1 applic DAILY TOPIC 07/16/20 13:00 08/15/20 12:59 08/03/20 09:08 Zinc Sulfate (Zinc Sulfate) 220 mg DAILY GT 07/27/20 09:00 10/25/20 08:59 08/03/20 09:07 Assessment/Plan Assessment/Plan Impression: Healthcare-associated pneumonia Acute respiratory failure with hypoxia Tracheostomy status Pleural effusion, left-recurrent Decubitus ulcers Urinary tract infection Anemia S/p previous Craniotomy, RCA occlusion, SHRUB GROWER shunt Seizure history GERD, dysphagia s/p GJ tube h/o Hypertension h/o Atrial fibrillation Previous DVT and Pulmonary Embolism, Plan ID reviewed events reviewed monitor HH for change J tube feeds O2 - taper; as able nebs as needed Wound care Cardiology follow up [employer] Medications dc planning - awaiting CM and discussed impression, plan, and exam edited and reviewed in detail care discussed with Nikita Arreola MD Aug 03, 2020 13:28
--- NOTE | 2020-08-03 13:41 | Surgery Progress Note ---
Surgery Progress Note Subjective Symptoms: improved, tolerating diet, passing flatus, BM Objective Last 24 Hour Vital Signs Date Time Temp Pulse Resp B/P (MAP) Pulse Ox O2 Delivery O2 Flow Rate FiO2 08/03/20 12:00 98.1 102 26 133/72 (92) 96 08/03/20 12:00 105 08/03/20 09:08 104 133/77 08/03/20 09:00 Trach Collar 10.0 08/03/20 08:00 109 08/03/20 08:00 96.1 66 18 133/77 (95) 100 08/03/20 07:11 94 T-Piece 10.0 40 08/03/20 04:00 98.1 101 28 109/67 (81) 96 08/03/20 04:00 97 08/03/20 03:43 95 T-Piece 10.0 40 08/03/20 00:00 99.3 97 26 117/64 (81) 94 08/03/20 00:00 91 08/02/20 21:45 98.9 08/02/20 21:15 108 125/70 08/02/20 21:00 Trach Collar 10.0 08/02/20 20:00 112 08/02/20 20:00 100.8 108 28 125/70 (88) 94 08/02/20 19:41 94 T-Piece 10.0 40 08/02/20 16:00 99.3 107 26 128/68 (88) 93 08/02/20 16:00 113 I&O Intake and Output 08/02/20 08/03/20 19:00 07:00 Output Total 700 ml 1000 ml Balance -700 ml -1000 ml Output Urine Total 700 ml 1000 ml # Voids 1 # Bowel Movements 1 Dressing: saturated Cardiovascular: RSR Respiratory: decreased breath sounds Abdomen: soft, flat, non-tender, present bowel sounds, non-distended Extremities: no edema, no tenderness, no cyanosis Plan Problems: (1) Decubitus skin ulcer Assessment & Plan: Pt presented on admission with PV shunt,Tracheostomy, Contractures and multiple Pressure Injuries.Skin assessed under tracheal collar. Skin is erythematous but without any open wounds. GT site is red and excoriated.Scattered senile purpuras bilat upper extremities. Full thickness Sacral Pressure Injury(L)11.8cm x (W)8cm. Base of wound is 75% mixed necrosis and slough,20% antonio. Bone is palpable at base. Edges are macerated. Mild odor noted. Small amt brown exudate noted. Periwound is indurated and maroon with additional erythema and scattered Partial thickness shearing. Full Thickness Pressure Injury L trochanteric with undermined borders.(L)5cm x (W)7cm x (D)2.6cm, undermining clockwise 11-2 by 4.2cm @11o'clock. Base of wound is 75%% mixed necrosis and slough,25% antonio. Wound has appearance of two wounds secondary necrotic bridge.In addition, periwound at clockwise 10-2o'clock the base is necrotic and fluctuant with marginal erythema. Small amt malodorous haemopurulent exudate noted. Full thickness Pressure Injury L Ischium(L)3.5cm x (W)2.0cm. Base of wound is 80% slough,20% antonio. Surrounding necrotic borders that are fluctuant.Small amt sanguineous exudate. Mild odor noted. Full thickness Pressure Injury lateral L Tibia to L lateral Malleolus(L)24.5cm x (W)3.5cm. Base of wound is antonio with scattered necrosis and slough, tendon exposure. Semi-detached borders that indurated and macerated with an area of soft necrosis at proximal borders of wound. Small amt haemopurulent exudate no linda. No odor noted. Full thickness Pressure Injury L Heel(L)10.3cm x (W)7.5cm. Base of wound is 60% necrotic,10% slough,30% antonio. Bone is palpable. Borders are indurated with a portion of borders rolled giving heel a shaved appearance. Moderate amt haemo purulent exudate. Mild odor noted.Periwound is purpuric and fluctuant. Full thickness Pressure Injury medial/lateral L foot(L)3.5cm x (W)3.5cm x (D)0.3cm. Base of wound is antonio. Borders and periwound are purpuric and fluctuant.Small amt sanguineous exudate noted. Unstageable Pressure Injury Distal/Lateral L foot(L)2.7cm x (W)4.3cm. Base of wound is 80% soft necrosis,20% antonio. Edges are adherent to base of wound. Periwound is purpuric and fluctuant. Full thickness Pressure Injury R heel Plantar(L)8.5cm x (W)9cm. Base of pressure with scattered necrosis and slough,otherwise base of wound is antonio. Edges are macerated with surrounding necrosis. Small amt seropurulent exudate noted.Mild odor noted. Stable dry eschar dorsal R foot1.5cm x (W)1cm. Edges are adherent to base of wound. No erythema,induration or fluctuance periwound. Stable dry eschar distal/lateral R foot (L)0.8cm x (W)0.8cm. NO erythema,induration or fluctuance periwound. R foot is edematous. Tx.Plan: Cleanse Sacral wound with Dakin's Kristel 0.25%. Apply Dakin's moistened kerlix to wound. Apply Triad periwound. Cover with Optifoam drsg. Change Daily and prn. Cleanse L trochanteric Wound with Dakin's Kristel 0.25%. Loosely pack with Dakin's moistened Kerlix, Apply Moisture Barrier Periwound. Cover with Optifoam drsg Daily and prn. Cleanse R Ischial wound with Dakin's Kristel 0.25%. Apply Dakin's moistened gauze to wound. Apply Moisture Barrier Paste periwound. Cover with Optifoam drsg Daily and prn. Cleanse wounds Lateral R lower extremity, R Heel and Lateral R foot with Dakin's Kristel 0.25%. Place Dakin's Moistened gauze to wounds. Apply Triad Paste along edges of wound. Cover wounds with ABD Pads. Wrap with Kerlix from Base of toes. Cleanse wound R heel with Dakin's Kristel 0.25%. Apply Dakin's moistened Gauze to wound. Apply Triad Periwound. Cover with ABD PAd and wrap with Kerlix. Swab dry Eschar dorsal and Lateral aspect of R foot .Cover with Abd Pads and Wrap with Kerlix Daily and prn. Wash GT site with Soap and water. Apply Triad Paste Daily and prn(Leave Open to Air) Reposition at least every 2hours or as tolerated. Place Pillow Between Knees. Off-Load Heels with Pillow. APM/TERRIE Mattress overlay. (2) Anemia Assessment & Plan: trend h/h prbc prn (3) UTI (urinary tract infection) (4) Pleural effusion, left Assessment & Plan: Lungs: Hazy left lung attenuation could be due to consolidation, pulmonary edema; correlate with presentation. Retrocardiac atelectasis without or with consolidation. Pleural space: Small-moderate left pleural effusion with passive atelectasis. No pneumothorax. Heart: Unremarkable. No cardiomegaly. Mediastinum: Unremarkable. Bones/joints: No acute abnormality Tubes, lines and devices: Tracheostomy. Right upper extremity PICC tip in the mid SVC. IMPRESSION: 1. Tracheostomy. 2. Right upper extremity PICC tip in the mid SVC. 3. Small-moderate left pleural effusion with passive atelectasis. 4. Hazy left lung attenuation could be due to consolidation, pulmonary edema; correlate with presentation. 5. Retrocardiac atelectasis without or with consolidation. 6. Recommend CT chest with IV contrast to further characterize these findings. (5) Malfunction of gastrostomy tube Assessment & Plan: DAILY ESTIMATED NEEDS: Needs based on Wounds, pulmonary/ 74.5kg 25-30 kcals/kg 1315-2702 total kcals 1.5-2 g protein/kg 111-149 g total protein 25-30 mL/kg 0626-0776 total fluid mLs NUTRITION DIAGNOSIS: * Swallowing difficulty R/T dysphagia, h/o craniotomy, respiratory failure as evidenced by pt on T-collar, GJ tube dependent. * Increased kcal/prot/micronutrients needs R/T wound healing as evidenced by pt admitted w/ multiple advanced wounds including full thickness wound x 7 and unstageable wounds x 2, refer to WC eval. CURRENT TF:Jevity 1.2 @ 60ml/hr x 24 hrs-> now Glucerna 1.2 ENTERAL NUTRITION RECOMMENDATIONS: Glucerna 1.2 @ 65ml/hr x 24 hrs + Prosource 1pkt TID to provide 1560ml, 1872kcal, 94g+ 33g prot, 1259ml free water * Increase goal rate to 65ml/hr x 24 hrs to better meet est needs * Add Prosource 1pkt TID to meet increased protein needs * HOB over 30 degrees/ water flush 150ml q 6hrs without IVF ADDITIONAL RECOMMENDATIONS: * Calibrated bedscale wt * Wound Care: Con't Vit C 500mg BID, ZnSO4 220mg QD x 10 days add Stevie BID * Monitor BGs, need for carb controlled TF -> now on Glucerna 1.2 * Monitor lytes, replete as needed (6) Acute respiratory failure with hypoxia (7) HCAP (healthcare-associated pneumonia) Deny Westfall Aug 03, 2020 13:41
[2020-08-03] MEDS: Acetaminophen 650mg/20.3ml GT PRN (15:57)
[2020-08-03 16:00] VITALS: BP 137/66
--- NOTE | 2020-08-03 16:21 | NUR ---
NURSE NOTES: Called Diamante, RT to suction Pt.
--- NOTE | 2020-08-03 16:54 | NUR ---
NURSE HAND-OFF REPORT: Important Events on Shift: fever 102.4 relieved by tylenol. wound care. Patient Status: fc,s table Diet: glucerna 1.2 at 60cc Pending Orders: Pending Results/Labs: Pending MD notification: Latest Vital Signs: Temperature 99.0 , Pulse 117 , B/P 137 /66 , Respiratory Rate 30 , O2 SAT 93 , Trach Collar, O2 Flow Rate 10.0 . Vital Sign Comment: EKG Rhythm: Sinus Tachycardia Rhythm change?: N Notified?: N -Dr. Aubree VALDEZ Response: Message left await call Latest Ramirez Fall Score: 50 Fall Risk: High Risk Safety Measures: Call light Within Reach, Bed Alarm Zone 1, Side Rails Side Rails x2, Bed position Low and Locked. Fall Precautions: Yellow Socks Yellow Gown Patient Fall Education Report to be given. Addendum: 08/03/20 at 1927 by Opal Connolly RN RN Pt stable and report given to SELIN Du
[2020-08-03] MEDS: Amiodarone 200mg tab GT SCH (16:59)
--- NOTE | 2020-08-03 17:38 | Neurology Progress Note ---
Interim History Interim History ROS Limited/Unobtainable: Yes Interim History somnolent no new deficits Objective Physical Exam Last Vital Signs Date Time Temp Pulse Resp B/P (MAP) Pulse Ox O2 Delivery O2 Flow Rate FiO2 08/03/20 16:27 99.0 08/03/20 16:00 120 30 137/66 (89) 93 08/03/20 13:02 T-Piece 10.0 40 Head: normocophalic Neck: no rigidity EENT: benign Neurologic Exam Objective lethargic, pupils reactive not following withdraws to pain Impression/Recommendations Problems: (1) Malfunction of gastrostomy tube (2) Anemia (3) Pleural effusion, left (4) Acute respiratory failure with hypoxia (5) HCAP (healthcare-associated pneumonia) (6) UTI (urinary tract infection) Status: stable, progressing Diagnostic Impression Recurrent sepsis Possible aspiration Encephalopathy, acute on chronic rule out seizures map > 65 ro covid cont atb fu cultures no need for AED now Gerson Singh MD Aug 03, 2020 17:38
--- NOTE | 2020-08-03 17:58 | General Progress Note ---
Subjective Allergies: Coded Allergies: No Known Allergies (Unverified , 11/02/19) Subjective Above noted non communicative stools brown tolerating TF Objective Last 24 Hour Vital Signs Date Time Temp Pulse Resp B/P (MAP) Pulse Ox O2 Delivery O2 Flow Rate FiO2 08/03/20 16:27 99.0 08/03/20 16:00 102.4 120 30 137/66 (89) 93 08/03/20 16:00 117 08/03/20 13:02 96 T-Piece 10.0 40 08/03/20 12:00 98.1 102 26 133/72 (92) 96 08/03/20 12:00 105 08/03/20 09:08 104 133/77 08/03/20 09:00 Trach Collar 10.0 08/03/20 08:00 109 08/03/20 08:00 96.1 66 18 133/77 (95) 100 08/03/20 07:11 94 T-Piece 10.0 40 08/03/20 04:00 98.1 101 28 109/67 (81) 96 08/03/20 04:00 97 08/03/20 03:43 95 T-Piece 10.0 40 08/03/20 00:00 99.3 97 26 117/64 (81) 94 08/03/20 00:00 91 08/02/20 21:45 98.9 08/02/20 21:15 108 125/70 08/02/20 21:00 Trach Collar 10.0 08/02/20 20:00 112 08/02/20 20:00 100.8 108 28 125/70 (88) 94 08/02/20 19:41 94 T-Piece 10.0 40 Intake and Output 08/02/20 08/03/20 19:00 07:00 Output Total 700 ml 1000 ml Balance -700 ml -1000 ml Output Urine Total 700 ml 1000 ml # Voids 1 # Bowel Movements 1 Height (Feet): 5 Height (Inches): 4.00 Weight (Pounds): 171 Objective Eldely WM NCAT (+) trach , T tube Coarse BS RRR abd soft (+) GT ext no edema Assessment/Plan Status: stable, progressing Assessment/Plan: Assessment - UGIB - resolved - Anemia, s/p transfusion - h/o PUD - resp failure, s/p trach - dysphagia, s/p PEG - atrial fibrillation - h/o DVT - hypernatremia Recommendations - anticoagulation - H2B BID indefinitely - TF -- increase free water - re check BMP in am - follow H&H Akiko Rai MD Aug 03, 2020 17:58
--- NOTE | 2020-08-03 19:15 | NUR ---
NURSE NOTES: Pt is stable, no s/sX or complaint nor distress at this time. Pt is AOx0, nonverbal. FLACC score 0. Pt is on P200 mattress. Multiple wounds noted to sacral, trochanter, bilaty lower extremities stage 3, L trochanter, and BLE. Pt has a KIZZY PICC. Pt bed is in low and locked position, side rails padded for seizure precautions, call light in reach and bed alarm on.
[2020-08-03 20:00] VITALS: BP 120/66
[2020-08-03] MEDS: Dyna-Hex 2% Top Sol 2oz TOPIC SCH (20:32)
[2020-08-04] VITALS: BP 122/70
--- NOTE | 2020-08-04 03:43 | NUR ---
NURSE NOTES: All wound care performed, on day shift will need to replace rectal tube as stool inside rectal tube is formed and stool comes out the side, additionally dressings were changed but we did not have dakins to soak gauze, had to clean with betadine, pack with saline, covered with abd pads
--- NOTE | 2020-08-04 03:53 | NUR ---
NURSE HAND-OFF REPORT: Important Events on Shift: All wound care performed, on day shift will need to replace rectal tube as stool inside rectal tube is formed and stool comes out the side, additionally dressings were changed but we did not have dakins to soak gauze, had to clean with betadine, pack with saline, covered with abd pads Patient Status: [stable, O2 continuous monitoring] Diet: [Glucerna 1.2 at 60 ml/h] Pending Orders: [cbc cmp] Pending Results/Labs:[cbc cmp] Latest Vital Signs: Temperature 98.4 , Pulse 87 , B/P 122 /70 , Respiratory Rate 29 , O2 SAT 99 , Trach Collar, O2 Flow Rate 10.0 . Vital Sign Comment: [] EKG Rhythm: Sinus Tachycardia Report given to [SELIN Fowler].
[2020-08-04 04:00] VITALS: BP 108/60
[2020-08-04 05:48] LABS: BASOPHILS % (AUTO) 0.6 % (0.0-2.0); EOSINOPHILS % (AUTO) 3.4 % (0.0-3.0); HEMATOCRIT 27.2 % (42.0-52.0); HEMOGLOBIN 8.2 G/DL (14.2-18.0); LYMPHOCYTES % (AUTO) 12.4 % (20.0-45.0); MEAN CORPUSCULAR VOLUME 91 FL (80-99); NEUTROPHILS % (AUTO) 76.6 % (45.0-75.0); PLATELET COUNT 369 K/UL (150-450); RED CELL DISTRIBUTION WIDTH 16.9 % (11.6-14.8); WHITE BLOOD COUNT 8.9 K/UL (4.8-10.8)
[2020-08-04 06:33] LABS: ALANINE AMINOTRANSFERASE 25 U/L (12-78); ALBUMIN/GLOBULIN RATIO 0.2 (1.0-2.7); ALKALINE PHOSPHATASE 121 U/L (46-116); ANION GAP 2 mmol/L (5-15); ASPARTATE AMINO TRANSFERASE 23 U/L (15-37); BILIRUBIN,TOTAL 0.1 MG/DL (0.2-1.0); BLOOD UREA NITROGEN 39 mg/dL (7-18); CALCIUM 8.8 MG/DL (8.5-10.1); CARBON DIOXIDE 36 MMOL/L (21-32); CHLORIDE 115 MMOL/L (98-107); CREATININE 1.2 MG/DL (0.55-1.30); POTASSIUM 4.8 MMOL/L (3.5-5.1); SODIUM 153 MMOL/L (136-145)
--- NOTE | 2020-08-04 07:56 | NUR ---
NURSE HAND-OFF REPORT: Important Events on Shift:[RECEIVED REPORT FROM [facility] AT 4:30 AM ] Patient Status: [STABLE/ FULL CODE] Diet: [GLUCERNA 1.2 @ 60CC/HR] Pending Orders: [] Pending Results/Labs:[] Pending MD notification:[] Latest Vital Signs: Temperature 99.3 , Pulse 107 , B/P 108 /60 , Respiratory Rate 24 , O2 SAT 95 , Trach Collar, O2 Flow Rate 10.0 . Vital Sign Comment: [] EKG Rhythm: Sinus Rhythm Rhythm change?: N Notified?: N -Dr. Aubree VALDEZ Response: Message left await call Latest Ramirez Fall Score: 50 Fall Risk: High Risk Safety Measures: Call light Within Reach, Bed Alarm Zone 1, Side Rails Side Rails x2, Bed position Low and Locked. Fall Precautions: Yellow Socks Yellow Gown Patient Fall Education Report given to [SELIN MARC].
[2020-08-04 08:00] VITALS: BP 123/64
--- NOTE | 2020-08-04 08:50 | NUR ---
NURSE NOTES: pt in bed resting, pt was just suctioned. Pt on vent. o2 sat 94-95. pt is on Gtube feeding, gtube patent. 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 Bed is locked and in lowest position, call light within reach. will continue to monitor pt.
--- NOTE | 2020-08-04 10:23 | NUR ---
CASE MANAGEMENT:REVIEW 08/04/20 SI: PNA. UTI. BACTEREMIA. UGIB 99.3 107 24 108/60 95% ON 10L/60% VIA TRACH COLLAR H/H-8.2/27.2 NA+153 CO2+36 BUN+39 GLUCOSE+116 IS: AMIODARONE GT QD ZINC GT QD LOPRESSOR GT Q12 LIPITOR GT QHS PEPCID GT Q12 KEPPRA GT Q12 : TELEMETRY STATUS DCP: FROM HOME PLAN: WEAN OXYGEN TO LEVEL OF APPROPRIATENESS FOR HOME
[2020-08-04] MEDS: Ascorbic Acid 500mg tab GT SCH ×2 (10:35→18:30)
[2020-08-04] MEDS: Metoprolol Tartrate 50mg tab ORAL SCH ×2 (10:36→21:09)
[2020-08-04] MEDS: Zinc Sulfate 220mg GT SCH (10:37)
--- NOTE | 2020-08-04 11:00 | Infectious Diseases Prog Note ---
Assessment/Plan Assessment/Plan antibiotics : none A 1. aspiration pneumonia. COVID19 test is negative. 2. coag neg staph line sepsis s/p rx 3. Hypertension. 4. Atrial fibrillation. 5. anemia 6. respiratory failure S/p tracheostomy 7. Left pleural effusion P 1. observe off antibiotics 2. will follow up cultures Subjective ROS Limited/Unobtainable: Yes Allergies: Coded Allergies: No Known Allergies (Unverified , 11/02/19) Objective Last 24 Hour Vital Signs Date Time Temp Pulse Resp B/P (MAP) Pulse Ox O2 Delivery O2 Flow Rate FiO2 08/04/20 10:36 110 123/64 08/04/20 07:36 95 T-Piece 10.0 60 08/04/20 04:00 99.3 106 24 108/60 (76) 98 08/04/20 04:00 107 08/04/20 01:00 91 T-Piece 10.0 60 08/04/20 00:00 97 08/04/20 00:00 98.4 87 29 122/70 (87) 95 08/03/20 21:00 Trach Collar 10.0 08/03/20 20:33 117 137/66 08/03/20 20:00 97.9 104 28 120/66 (84) 94 08/03/20 20:00 101 08/03/20 19:08 94 T-Piece 10.0 40 08/03/20 16:27 99.0 08/03/20 16:00 102.4 120 30 137/66 (89) 93 08/03/20 16:00 117 08/03/20 13:02 96 T-Piece 10.0 40 08/03/20 12:00 98.1 102 26 133/72 (92) 96 08/03/20 12:00 105 Height (Feet): 5 Height (Inches): 4.00 Weight (Pounds): 171 HEENT: status post trach Respiratory/Chest: lungs clear Cardiovascular: normal rate, regular rhythm, no gallop/murmur Abdomen: soft, non tender, other - GT Extremities: no edema Laboratory Tests Test 08/04/20 05:00 White Blood Count 8.9 K/UL (4.8-10.8) Red Blood Count 3.00 M/UL (4.70-6.10) L Hemoglobin 8.2 G/DL (14.2-18.0) L Hematocrit 27.2 % (42.0-52.0) L Mean Corpuscular Volume 91 FL (80-99) Mean Corpuscular Hemoglobin 27.3 PG (27.0-31.0) Mean Corpuscular Hemoglobin Concent 30.1 G/DL (32.0-36.0) L Red Cell Distribution Width 16.9 % (11.6-14.8) H Platelet Count 369 K/UL (150-450) Mean Platelet Volume 5.8 FL (6.5-10.1) L Neutrophils (%) (Auto) 76.6 % (45.0-75.0) H Lymphocytes (%) (Auto) 12.4 % (20.0-45.0) L Monocytes (%) (Auto) 7.0 % (1.0-10.0) Eosinophils (%) (Auto) 3.4 % (0.0-3.0) H Basophils (%) (Auto) 0.6 % (0.0-2.0) Sodium Level 153 MMOL/L (136-145) H Potassium Level 4.8 MMOL/L (3.5-5.1) Chloride Level 115 MMOL/L (98-107) H Carbon Dioxide Level 36 MMOL/L (21-32) H Anion Gap 2 mmol/L (5-15) L Blood Urea Nitrogen 39 mg/dL (7-18) H Creatinine 1.2 MG/DL (0.55-1.30) Estimat Glomerular Filtration Rate > 60 mL/min (>60) Glucose Level 116 MG/DL (74-106) H Calcium Level 8.8 MG/DL (8.5-10.1) Total Bilirubin 0.1 MG/DL (0.2-1.0) L Aspartate Amino Transf (AST/SGOT) 23 U/L (15-37) Alanine Aminotransferase (ALT/SGPT) 25 U/L (12-78) Alkaline Phosphatase 121 U/L (46-116) H Total Protein 7.1 G/DL (6.4-8.2) Albumin 1.0 G/DL (3.4-5.0) L Globulin 6.1 g/dL Albumin/Globulin Ratio 0.2 (1.0-2.7) L Current Medications Medications (Trade) Dose Ordered Sig/Clive Route PRN Reason Start Time Stop Time Status Last Admin Dose Admin Acetaminophen (Tylenol) 650 mg Q4H PRN GT Temp >100.5 07/18/20 09:30 08/17/20 09:29 08/03/20 15:57 Acetaminophen (Tylenol) 650 mg Q4H PRN RECTAL Temp >100.5 07/14/20 13:30 08/13/20 13:29 Amiodarone HCl (Cordarone) 200 mg DAILY@1800 GT 07/30/20 18:00 10/28/20 17:59 08/03/20 16:59 Ascorbic Acid (Vitamin C) 250 mg TWICE A DAY GT 07/16/20 18:00 08/15/20 17:59 08/04/20 10:35 Atorvastatin Calcium (Lipitor) 10 mg BEDTIME ORAL 07/24/20 21:00 10/22/20 20:59 08/03/20 20:33 Chlorhexidine Gluconate (Jennifer-Hex 2%) 1 applic DAILY@2000 TOPIC 07/17/20 20:00 10/15/20 19:59 08/03/20 20:32 Famotidine (Pepcid) 20 mg Q12HR GT 07/16/20 21:00 10/14/20 20:59 08/04/20 10:36 Finasteride (Proscar) 5 mg DAILY ORAL 07/15/20 09:00 10/13/20 08:59 08/04/20 10:35 Hydralazine HCl (Apresoline) 25 mg Q6H PRN GT SBP above 150 07/24/20 23:30 10/22/20 23:29 07/26/20 05:22 Levetiracetam (Keppra) 1,000 mg Q12HR ORAL 07/14/20 21:00 08/13/20 20:59 08/04/20 10:37 Metoprolol Tartrate (Lopressor) 50 mg Q12HR ORAL 07/25/20 22:15 10/23/20 22:14 08/04/20 10:36 Multivitamins (Multivitamins) 1 tab DAILY GT 07/17/20 09:00 08/16/20 08:59 08/04/20 10:37 Sodium Hypochlorite (Dakin's Half Strength) 1 applic DAILY TOPIC 07/16/20 13:00 08/15/20 12:59 08/03/20 09:08 Zinc Sulfate (Zinc Sulfate) 220 mg DAILY GT 07/27/20 09:00 10/25/20 08:59 08/04/20 10:37 Kristie Reina MD Aug 04, 2020 11:00
--- NOTE | 2020-08-04 11:18 | General Progress Note ---
Subjective ROS Limited/Unobtainable: No Constitutional: Reports: malaise, weakness HEENT: Reports: no symptoms Cardiovascular: Reports: no symptoms Respiratory: Reports: shortness of breath, sputum Gastrointestinal/Abdominal: Reports: difficulty swallowing Genitourinary: Reports: no symptoms Neurologic/Psychiatric: Reports: pre-existing deficit Endocrine: Reports: no symptoms Hematologic/Lymphatic: Reports: anemia Allergies: Coded Allergies: No Known Allergies (Unverified , 11/02/19) All Systems: reviewed and negative except above Subjective no changes, stable on trach collar. nonverbal. weak and lethargic. nonverbal. tolerating feeds. labs noted. no bleeding. Na trending up Objective Last 24 Hour Vital Signs Date Time Temp Pulse Resp B/P (MAP) Pulse Ox O2 Delivery O2 Flow Rate FiO2 08/04/20 10:36 110 123/64 08/04/20 07:36 95 T-Piece 10.0 60 08/04/20 04:00 99.3 106 24 108/60 (76) 98 08/04/20 04:00 107 08/04/20 01:00 91 T-Piece 10.0 60 08/04/20 00:00 97 08/04/20 00:00 98.4 87 29 122/70 (87) 95 08/03/20 21:00 Trach Collar 10.0 08/03/20 20:33 117 137/66 08/03/20 20:00 97.9 104 28 120/66 (84) 94 08/03/20 20:00 101 08/03/20 19:08 94 T-Piece 10.0 40 08/03/20 16:27 99.0 08/03/20 16:00 102.4 120 30 137/66 (89) 93 08/03/20 16:00 117 08/03/20 13:02 96 T-Piece 10.0 40 08/03/20 12:00 98.1 102 26 133/72 (92) 96 08/03/20 12:00 105 Intake and Output 08/03/20 08/04/20 19:00 07:00 Intake Total 180 ml Output Total 800 ml 1200 ml Balance -800 ml -1020 ml Tube Feeding 180 ml Output Urine Total 800 ml 900 ml Stool Total 300 ml Laboratory Tests 08/04/20 05:00: White Blood Count 8.9, Red Blood Count 3.00L, Hemoglobin 8.2L, Hematocrit 27.2L, Mean Corpuscular Volume 91, Mean Corpuscular Hemoglobin 27.3, Mean Corpuscular Hemoglobin Concent 30.1L, Red Cell Distribution Width 16.9H, Platelet Count 369, Mean Platelet Volume 5.8L, Neutrophils (%) (Auto) 76.6H, Lymphocytes (%) (Auto) 12.4L, Monocytes (%) (Auto) 7.0, Eosinophils (%) (Auto) 3.4H, Basophils (%) (Auto) 0.6, Sodium Level 153H, Potassium Level 4.8, Chloride Level 115H, Carbon Dioxide Level 36H, Anion Gap 2L, Blood Urea Nitrogen 39H, Creatinine 1.2, Estimat Glomerular Filtration Rate > 60, Glucose Level 116H, Calcium Level 8.8, Total Bilirubin 0.1L, Aspartate Amino Transf (AST/SGOT) 23, Alanine Aminotransferase (ALT/SGPT) 25, Alkaline Phosphatase 121H, Total Protein 7.1, Albumin 1.0L, Globulin 6.1, Albumin/Globulin Ratio 0.2L Height (Feet): 5 Height (Inches): 4.00 Weight (Pounds): 171 Objective General Appearance: WD/WN, confused EENT: normal ENT inspection Neck: normal alignment Cardiovascular: normal rate, regular rhythm Respiratory/Chest: rhonchi - bilaterally Abdomen: normal bowel sounds, non tender, soft, no organomegaly Edema: no edema noted Leg (L), no edema noted Leg (R) Neurologic: disoriented, aphasia Skin: normal pigmentation Assessment/Plan Problem List: (1) Anemia ICD Codes: D64.9 - Anemia, unspecified SNOMED: 648567596, 160616116 Qualifiers: Qualified Codes: D64.9 - Anemia, unspecified (2) Pleural effusion, left ICD Codes: J90 - Pleural effusion, not elsewhere classified SNOMED: 17103661, 092116863 (3) Malfunction of gastrostomy tube ICD Codes: K94.23 - Gastrostomy malfunction SNOMED: 417189270 (4) Acute respiratory failure with hypoxia ICD Codes: J96.01 - Acute respiratory failure with hypoxia SNOMED: 14036646, 821609640 (5) HCAP (healthcare-associated pneumonia) ICD Codes: J18.9 - Pneumonia, unspecified organism SNOMED: 718299320, 155037301 Status: stable, progressing Assessment/Plan: monitor off abx trach care resp rx Continue suctioning as needed Continue tube feeds monitor for fever DVT and stress ulcer prophylaxis Monitor on telemetry for recurrent atrial fibrillation. rate control per cards monitor for bleeding add hypotonic ivf monitor lytes/sodium level dc planning Angel Jaramillo MD Aug 04, 2020 11:18
[2020-08-04 12:00] VITALS: BP 114/61
--- NOTE | 2020-08-04 12:04 | Surgery Progress Note ---
Surgery Progress Note Subjective Additional Comments stable comfortable o2 stable no n/v Objective Last 24 Hour Vital Signs Date Time Temp Pulse Resp B/P (MAP) Pulse Ox O2 Delivery O2 Flow Rate FiO2 08/04/20 11:45 96 T-Piece 10.0 60 08/04/20 10:36 110 123/64 08/04/20 07:36 95 T-Piece 10.0 60 08/04/20 04:00 99.3 106 24 108/60 (76) 98 08/04/20 04:00 107 08/04/20 01:00 91 T-Piece 10.0 60 08/04/20 00:00 97 08/04/20 00:00 98.4 87 29 122/70 (87) 95 08/03/20 21:00 Trach Collar 10.0 08/03/20 20:33 117 137/66 08/03/20 20:00 97.9 104 28 120/66 (84) 94 08/03/20 20:00 101 08/03/20 19:08 94 T-Piece 10.0 40 08/03/20 16:27 99.0 08/03/20 16:00 102.4 120 30 137/66 (89) 93 08/03/20 16:00 117 08/03/20 13:02 96 T-Piece 10.0 40 I&O Intake and Output 08/03/20 08/04/20 19:00 07:00 Intake Total 180 ml Output Total 800 ml 1200 ml Balance -800 ml -1020 ml Tube Feeding 180 ml Output Urine Total 800 ml 900 ml Stool Total 300 ml Dressing: saturated Cardiovascular: RSR Respiratory: decreased breath sounds Abdomen: soft, non-tender, present bowel sounds Extremities: no edema, no tenderness, no cyanosis Laboratory Tests Test 08/04/20 05:00 White Blood Count 8.9 K/UL (4.8-10.8) Red Blood Count 3.00 M/UL (4.70-6.10) L Hemoglobin 8.2 G/DL (14.2-18.0) L Hematocrit 27.2 % (42.0-52.0) L Mean Corpuscular Volume 91 FL (80-99) Mean Corpuscular Hemoglobin 27.3 PG (27.0-31.0) Mean Corpuscular Hemoglobin Concent 30.1 G/DL (32.0-36.0) L Red Cell Distribution Width 16.9 % (11.6-14.8) H Platelet Count 369 K/UL (150-450) Mean Platelet Volume 5.8 FL (6.5-10.1) L Neutrophils (%) (Auto) 76.6 % (45.0-75.0) H Lymphocytes (%) (Auto) 12.4 % (20.0-45.0) L Monocytes (%) (Auto) 7.0 % (1.0-10.0) Eosinophils (%) (Auto) 3.4 % (0.0-3.0) H Basophils (%) (Auto) 0.6 % (0.0-2.0) Sodium Level 153 MMOL/L (136-145) H Potassium Level 4.8 MMOL/L (3.5-5.1) Chloride Level 115 MMOL/L (98-107) H Carbon Dioxide Level 36 MMOL/L (21-32) H Anion Gap 2 mmol/L (5-15) L Blood Urea Nitrogen 39 mg/dL (7-18) H Creatinine 1.2 MG/DL (0.55-1.30) Estimat Glomerular Filtration Rate > 60 mL/min (>60) Glucose Level 116 MG/DL (74-106) H Calcium Level 8.8 MG/DL (8.5-10.1) Total Bilirubin 0.1 MG/DL (0.2-1.0) L Aspartate Amino Transf (AST/SGOT) 23 U/L (15-37) Alanine Aminotransferase (ALT/SGPT) 25 U/L (12-78) Alkaline Phosphatase 121 U/L (46-116) H Total Protein 7.1 G/DL (6.4-8.2) Albumin 1.0 G/DL (3.4-5.0) L Globulin 6.1 g/dL Albumin/Globulin Ratio 0.2 (1.0-2.7) L Plan Problems: (1) Decubitus skin ulcer Assessment & Plan: Pt presented on admission with PV shunt,Tracheostomy, Contractures and multiple Pressure Injuries.Skin assessed under tracheal collar. Skin is erythematous but without any open wounds. GT site is red and excoriated.Scattered senile purpuras bilat upper extremities. Full thickness Sacral Pressure Injury(L)11.8cm x (W)8cm. Base of wound is 75% mixed necrosis and slough,20% antonio. Bone is palpable at base. Edges are macerated. Mild odor noted. Small amt brown exudate noted. Periwound is indurated and maroon with additional erythema and scattered Partial thickness shearing. Full Thickness Pressure Injury L trochanteric with undermined borders.(L)5cm x (W)7cm x (D)2.6cm, undermining clockwise 11-2 by 4.2cm @11o'clock. Base of wound is 75%% mixed necrosis and slough,25% antonio. Wound has appearance of two wounds secondary necrotic bridge.In addition, periwound at clockwise 10-2o'clock the base is necrotic and fluctuant with marginal erythema. Small amt malodorous haemopurulent exudate noted. Full thickness Pressure Injury L Ischium(L)3.5cm x (W)2.0cm. Base of wound is 80% slough,20% antonio. Surrounding necrotic borders that are fluctuant.Small amt sanguineous exudate. Mild odor noted. Full thickness Pressure Injury lateral L Tibia to L lateral Malleolus(L)24.5cm x (W)3.5cm. Base of wound is antonio with scattered necrosis and slough, tendon exposure. Semi-detached borders that indurated and macerated with an area of soft necrosis at proximal borders of wound. Small amt haemopurulent exudate noted. No odor noted. Full thickness Pressure Injury L Heel(L)10.3cm x (W)7.5cm. Base of wound is 60% necrotic,10% slough,30% antonio. Bone is palpable. Borders are indurated with a portion of borders rolled giving heel a shaved appearance. Moderate amt haemopurulent exudate. Mild odor noted.Periwound is purpuric and fluctuant. Full thickness Pressure Injury medial/lateral L foot(L)3.5cm x (W)3.5cm x (D)0.3cm. Base of wound is antonio. Borders and periwound are purpuric and fluctuant.Small amt sanguineous exudate noted. Unstageable Pressure Injury Distal/Lateral L foot(L)2.7cm x (W)4.3cm. Base of wound is 80% soft necrosis,20% antonio. Edges are adherent to base of wound. Elvia wound is purpuric and fluctuant. Full thickness Pressure Injury R heel Plantar(L)8.5cm x (W)9cm. Base of pressure with scattered necrosis and slough,otherwise base of wound is antonio. Edges are macerated with surrounding necrosis. Small amt seropurulent exudate noted.Mild odor noted. Stable dry eschar dorsal R foot1.5cm x (W)1cm. Edges are adherent to base of wound. No erythema,induration or fluctuance periwound. Stable dry eschar distal/lateral R foot (L)0.8cm x (W)0.8cm. NO erythema,induration or fluctuance periwound. R foot is edematous. Tx.Plan: Cleanse Sacral wound with Dakin's Kristel 0.25%. Apply Dakin's moistened kerlix to wound. Apply Triad periwound. Cover with Optifoam drsg. Change Daily and prn. Cleanse L trochanteric Wound with Dakin's Kristel 0.25%. Loosely pack with Dakin's moistened Kerlix, Apply Moisture Barrier Periwound. Cover with Optifoam drsg Daily and prn. Cleanse R Ischial wound with Dakin's Kristel 0.25%. Apply Dakin's moistened gauze to wound. Apply Moisture Barrier Paste periwound. Cover with Optifoam drsg Daily and prn. Cleanse wounds Lateral R lower extremity, R Heel and Lateral R foot with Dakin's Kristel 0.25%. Place Dakin's Moistened gauze to wounds. Apply Triad Paste along edges of wound. Cover wounds with ABD Pads. Wrap with Kerlix from Base of toes. Cleanse wound R heel with Dakin's Kristel 0.25%. Apply Dakin's moistened Gauze to wound. Apply Triad Periwound. Cover with ABD PAd and wrap with Kerlix. Swab dry Eschar dorsal and Lateral aspect of R foot .Cover with Abd Pads and Wrap with Kerlix Daily and prn. Wash GT site with Soap and water. Apply Triad Paste Daily and prn(Leave Open to Air) Reposition at least every 2hours or as tolerated. Place Pillow Between Knees. Off-Load Heels with Pillow. APM/TERRIE Mattress overlay. (2) Anemia Assessment & Plan: trend h/h prbc prn (3) UTI (urinary tract infection) (4) Pleural effusion, left Assessment & Plan: Lungs: Hazy left lung attenuation could be due to consolidation, pulmonary edema; correlate with presentation. Retrocardiac atelectasis without or with consolidation. Pleural space: Small-moderate left pleural effusion with passive atelectasis. No pneumothorax. Heart: Unremarkable. No cardiomegaly. Mediastinum: Unremarkable. Bones/joints: No acute abnormality Tubes, lines and devices: Tracheostomy. Right upper extremity PICC tip in the mid SVC. IMPRESSION: 1. Tracheostomy. 2. Right upper extremity PICC tip in the mid SVC. 3. Small-moderate left pleural effusion with passive atelectasis. 4. Hazy left lung attenuation could be due to consolidation, pulmonary edema; correlate with presentation. 5. Retrocardiac atelectasis without or with consolidation. 6. Recommend CT chest with IV contrast to further characterize these findings. (5) Malfunction of gastrostomy tube Assessment & Plan: DAILY ESTIMATED NEEDS: Needs based on Wounds, pulmonary/ 74.5kg 25-30 kcals/kg 1219-6693 total kcals 1.5-2 g protein/kg 111-149 g total protein 25-30 mL/kg 0761-1926 total fluid mLs NUTRITION DIAGNOSIS: * Swallowing difficulty R/T dysphagia, h/o craniotomy, respiratory failure as evidenced by pt on T-collar, GJ tube dependent. * Increased kcal/prot/micronutrients needs R/T wound healing as evidenced by pt admitted w/ multiple advanced wounds including full thickness wound x 7 and unstageable wounds x 2, refer to WC eval. CURRENT TF:Jevity 1.2 @ 60ml/hr x 24 hrs-> now Glucerna 1.2 ENTERAL NUTRITION RECOMMENDATIONS: Glucerna 1.2 @ 65ml/hr x 24 hrs + Prosource 1pkt TID to provide 1560ml, 1872kcal, 94g+ 33g prot, 1259ml free water * Increase goal rate to 65ml/hr x 24 hrs to better meet est needs * Add Prosource 1pkt TID to meet increased protein needs * HOB over 30 degrees/ water flush 150ml q 6hrs without IVF ADDITIONAL RECOMMENDATIONS: * Calibrated bedscale wt * Wound Care: Con't Vit C 500mg BID, ZnSO4 220mg QD x 10 days add Stevie BID * Monitor BGs, need for carb controlled TF -> now on Glucerna 1.2 * Monitor lytes, replete as needed (6) Acute respiratory failure with hypoxia (7) HCAP (healthcare-associated pneumonia) Deny Westfall Aug 04, 2020 12:04
--- NOTE | 2020-08-04 13:48 | Pulmonology Progress Note ---
Subjective ROS Limited/Unobtainable: Yes Allergies: Coded Allergies: No Known Allergies (Unverified , 11/02/19) All Systems: reviewed and negative except above Subjective CARE NOTED nonverbal on oxygen no distress trach collar elevated sodium Objective Last 24 Hour Vital Signs Date Time Temp Pulse Resp B/P (MAP) Pulse Ox O2 Delivery O2 Flow Rate FiO2 08/04/20 11:45 96 T-Piece 10.0 60 08/04/20 10:36 110 123/64 08/04/20 07:36 95 T-Piece 10.0 60 08/04/20 04:00 99.3 106 24 108/60 (76) 98 08/04/20 04:00 107 08/04/20 01:00 91 T-Piece 10.0 60 08/04/20 00:00 97 08/04/20 00:00 98.4 87 29 122/70 (87) 95 08/03/20 21:00 Trach Collar 10.0 08/03/20 20:33 117 137/66 08/03/20 20:00 97.9 104 28 120/66 (84) 94 08/03/20 20:00 101 08/03/20 19:08 94 T-Piece 10.0 40 08/03/20 16:27 99.0 08/03/20 16:00 102.4 120 30 137/66 (89) 93 08/03/20 16:00 117 Intake and Output 08/03/20 08/04/20 19:00 07:00 Intake Total 180 ml Output Total 800 ml 1200 ml Balance -800 ml -1020 ml Tube Feeding 180 ml Output Urine Total 800 ml 900 ml Stool Total 300 ml Objective WDWN NAD awake chronically ill moderate breath sounds bilaterally without rhonchi or wheeze [id number] NABS nontender GT no CCE nonfocal weak wounds noted Laboratory Tests 08/04/20 05:00: White Blood Count 8.9, Red Blood Count 3.00L, Hemoglobin 8.2L, Hematocrit 27.2L, Mean Corpuscular Volume 91, Mean Corpuscular Hemoglobin 27.3, Mean Corpuscular Hemoglobin Concent 30.1L, Red Cell Distribution Width 16.9H, Platelet Count 369, Mean Platelet Volume 5.8L, Neutrophils (%) (Auto) 76.6H, Lymphocytes (%) (Auto) 12.4L, Monocytes (%) (Auto) 7.0, Eosinophils (%) (Auto) 3.4H, Basophils (%) (Auto) 0.6, Sodium Level 153H, Potassium Level 4.8, Chloride Level 115H, Carbon Dioxide Level 36H, Anion Gap 2L, Blood Urea Nitrogen 39H, Creatinine 1.2, Estim at Glomerular Filtration Rate > 60, Glucose Level 116H, Calcium Level 8.8, Total Bilirubin 0.1L, Aspartate Amino Transf (AST/SGOT) 23, Alanine Aminotransferase (ALT/SGPT) 25, Alkaline Phosphatase 121H, Total Protein 7.1, Albumin 1.0L, Globulin 6.1, Albumin/Globulin Ratio 0.2L Current Medications Medications (Trade) Dose Ordered Sig/Clive Route PRN Reason Start Time Stop Time Status Last Admin Dose Admin Acetaminophen (Tylenol) 650 mg Q4H PRN GT Temp >100.5 07/18/20 09:30 08/17/20 09:29 08/03/20 15:57 Acetaminophen (Tylenol) 650 mg Q4H PRN RECTAL Temp >100.5 07/14/20 13:30 08/13/20 13:29 Amiodarone HCl (Cordarone) 200 mg DAILY@1800 GT 07/30/20 18:00 10/28/20 17:59 08/03/20 16:59 Ascorbic Acid (Vitamin C) 250 mg TWICE A DAY GT 07/16/20 18:00 08/15/20 17:59 08/04/20 10:35 Atorvastatin Calcium (Lipitor) 10 mg BEDTIME ORAL 07/24/20 21:00 10/22/20 20:59 08/03/20 20:33 Chlorhexidine Gluconate (Jennifer-Hex 2%) 1 applic DAILY@2000 TOPIC 07/17/20 20:00 10/15/20 19:59 08/03/20 20:32 Dextrose 1,000 ml @ 75 mls/hr [id number] IV 08/04/20 11:30 09/03/20 11:29 Famotidine (Pepcid) 20 mg Q12HR GT 07/16/20 21:00 10/14/20 20:59 08/04/20 10:36 Finasteride (Proscar) 5 mg DAILY ORAL 07/15/20 09:00 10/13/20 08:59 08/04/20 10:35 Hydralazine HCl (Apresoline) 25 mg Q6H PRN GT SBP above 150 07/24/20 23:30 10/22/20 23:29 07/26/20 05:22 Levetiracetam (Keppra) 1,000 mg Q12HR ORAL 07/14/20 21:00 08/13/20 20:59 08/04/20 10:37 Metoprolol Tartrate (Lopressor) 50 mg Q12HR ORAL 07/25/20 22:15 10/23/20 22:14 08/04/20 10:36 Multivitamins (Multivitamins) 1 tab DAILY GT 07/17/20 09:00 08/16/20 08:59 08/04/20 10:37 Sodium Hypochlorite (Dakin's Half Strength) 1 applic DAILY TOPIC 07/16/20 13:00 08/15/20 12:59 08/03/20 09:08 Zinc Sulfate (Zinc Sulfate) 220 mg DAILY GT 07/27/20 09:00 10/25/20 08:59 08/04/20 10:37 Assessment/Plan Assessment/Plan Impression: Healthcare-associated pneumonia Acute respiratory failure with hypoxia Tracheostomy status Pleural effusion, left-recurrent Decubitus ulcers Urinary tract infection Anemia S/p previous Craniotomy, RCA occlusion, [employer] shunt Seizure history GERD, dysphagia s/p GJ tube h/o Hypertension h/o Atrial fibrillation Previous DVT and Pulmonary Embolism, hypernatremia Plan hypotonic fluids monitor lytes events reviewed monitor HH for change J tube feeds O2 - taper; as able nebs as needed Wound care Cardiology follow up P[employer] SPOT Medications dc planning - awaiting CM and discussed impression, plan, and exam edited and reviewed in detail care discussed with Nikita Arreola MD Aug 04, 2020 13:48
[2020-08-04 16:00] VITALS: BP 119/66
--- NOTE | 2020-08-04 17:17 | Neurology Progress Note ---
Interim History Interim History ROS Limited/Unobtainable: Yes Interim History remains lethargic, no new deficits Objective Physical Exam Last Vital Signs Date Time Temp Pulse Resp B/P (MAP) Pulse Ox O2 Delivery O2 Flow Rate FiO2 08/04/20 11:45 96 T-Piece 10.0 60 08/04/20 10:36 110 123/64 08/04/20 04:00 99.3 24 Laboratory Tests Test 08/04/20 05:00 White Blood Count 8.9 K/UL (4.8-10.8) Red Blood Count 3.00 M/UL (4.70-6.10) L Hemoglobin 8.2 G/DL (14.2-18.0) L Hematocrit 27.2 % (42.0-52.0) L Mean Corpuscular Volume 91 FL (80-99) Mean Corpuscular Hemoglobin 27.3 PG (27.0-31.0) Mean Corpuscular Hemoglobin Concent 30.1 G/DL (32.0-36.0) L Red Cell Distribution Width 16.9 % (11.6-14.8) H Platelet Count 369 K/UL (150-450) Mean Platelet Volume 5.8 FL (6.5-10.1) L Neutrophils (%) (Auto) 76.6 % (45.0-75.0) H Lymphocytes (%) (Auto) 12.4 % (20.0-45.0) L Monocytes (%) (Auto) 7.0 % (1.0-10.0) Eosinophils (%) (Auto) 3.4 % (0.0-3.0) H Basophils (%) (Auto) 0.6 % (0.0-2.0) Sodium Level 153 MMOL/L (136-145) H Potassium Level 4.8 MMOL/L (3.5-5.1) Chloride Level 115 MMOL/L (98-107) H Carbon Dioxide Level 36 MMOL/L (21-32) H Anion Gap 2 mmol/L (5-15) L Blood Urea Nitrogen 39 mg/dL (7-18) H Creatinine 1.2 MG/DL (0.55-1.30) Estimat Glomerular Filtration Rate > 60 mL/min (>60) Glucose Level 116 MG/DL (74-106) H Calcium Level 8.8 MG/DL (8.5-10.1) Total Bilirubin 0.1 MG/DL (0.2-1.0) L Aspartate Amino Transf (AST/SGOT) 23 U/L (15-37) Alanine Aminotransferase (ALT/SGPT) 25 U/L (12-78) Alkaline Phosphatase 121 U/L (46-116) H Total Protein 7.1 G/DL (6.4-8.2) Albumin 1.0 G/DL (3.4-5.0) L Globulin 6.1 g/dL Albumin/Globulin Ratio 0.2 (1.0-2.7) L Head: normocophalic Neck: no rigidity EENT: benign Neurologic Exam Objective lethargic, pupils reactive not following withdraws to pain Impression/Recommendations Problems: (1) Malfunction of gastrostomy tube (2) Anemia (3) Pleural effusion, left (4) Acute respiratory failure with hypoxia (5) HCAP (healthcare-associated pneumonia) (6) UTI (urinary tract infection) Status: stable, progressing Diagnostic Impression Recurrent sepsis Possible aspiration Encephalopathy, acute on chronic rule out seizures map > 65 ro covid cont atb fu cultures no need for AED now Gerson Singh MD Aug 04, 2020 17:17
[2020-08-04] MEDS: Dakin's 0.25% (Half Strength) 16oz TOPIC SCH (18:29)
[2020-08-04] MEDS: Amiodarone 200mg tab GT SCH (18:30)
--- NOTE | 2020-08-04 19:43 | General Progress Note ---
Subjective Allergies: Coded Allergies: No Known Allergies (Unverified , 11/02/19) Subjective Above noted non communicative stools brown tolerating TF Objective Last 24 Hour Vital Signs Date Time Temp Pulse Resp B/P (MAP) Pulse Ox O2 Delivery O2 Flow Rate FiO2 08/04/20 11:45 96 T-Piece 10.0 60 08/04/20 10:36 110 123/64 08/04/20 09:00 Trach Collar 10.0 08/04/20 07:36 95 T-Piece 10.0 60 08/04/20 04:00 99.3 106 24 108/60 (76) 98 08/04/20 04:00 107 08/04/20 01:00 91 T-Piece 10.0 60 08/04/20 00:00 97 08/04/20 00:00 98.4 87 29 122/70 (87) 95 08/03/20 21:00 Trach Collar 10.0 08/03/20 20:33 117 137/66 08/03/20 20:00 97.9 104 28 120/66 (84) 94 08/03/20 20:00 101 Intake and Output 08/03/20 08/04/20 19:00 07:00 Intake Total 180 ml Output Total 800 ml 1200 ml Balance -800 ml -1020 ml Tube Feeding 180 ml Output Urine Total 800 ml 900 ml Stool Total 300 ml Laboratory Tests 08/04/20 05:00: White Blood Count 8.9, Red Blood Count 3.00L, Hemoglobin 8.2L, Hematocrit 27.2L, Mean Corpuscular Volume 91, Mean Corpuscular Hemoglobin 27.3, Mean Corpuscular Hemoglobin Concent 30.1L, Red Cell Distribution Width 16.9H, Platelet Count 369, Mean Platelet Volume 5.8L, Neutrophils (%) (Auto) 76.6H, Lymphocytes (%) (Auto) 12.4L, Monocytes (%) (Auto) 7.0, Eosinophils (%) (Auto) 3.4H, Basophils (%) (Auto) 0.6, Sodium Level 153H, Potassium Level 4.8, Chloride Level 115H, Carbon Dioxide Level 36H, Anion Gap 2L, Blood Urea Nitrogen 39H, Creatinine 1.2, Estimat Glomerular Filtration Rate > 60, Glucose Level 116H, Calcium Level 8.8, Total Bilirubin 0.1L, Aspartate Amino Transf (AST/SGOT) 23, Alanine Aminotransferase (ALT/SGPT) 25, Alkaline Phosphatase 121H, Total Protein 7.1, Albumin 1.0L, Globulin 6.1, Albumin/Globulin Ratio 0.2L Height (Feet): 5 Height (Inches): 4.00 Weight (Pounds): 171 Objective Eldely WM NCAT (+) trach , T tube Coarse BS RRR abd soft (+) GT ext no edema Assessment/Plan Status: stable, progressing Assessment/Plan: Assessment - UGIB - resolved - Anemia, s/p transfusion - h/o PUD - resp failure, s/p trach - dysphagia, s/p PEG - atrial fibrillation - h/o DVT - hypernatremia Recommendations - anticoagulation - H2B BID indefinitely - TF -- increase free water - re check BMP in am - follow H&H Akiko Rai MD Aug 04, 2020 19:43
--- NOTE | 2020-08-04 19:45 | NUR ---
NURSE NOTES: Received pt and report from SELIN Gloria. Observed pt resting in bed with both eyes closed; arousable to shaking. Pt is A/Ox0, obtunded. color television console monitor is in placed; pt is NSR. Pt has an KIZZY PICC line; intact, asymptomatic and patent; running D5W @75ml/hr. Pt has a trach in placed; Shiley 4, 10LPM O2, FiO2 40%; sating at 98%. No acute respiratory distress noted. Pt has a G-tube; running Glucerna 1.2 @ 60cc/hr, continuous. Pt has a [place] in placed for urinary retention draining by gravity; yellow and slightly cloudy. Pt has a rectal tube in placed, flowing by gravity due to multiple wounds. Bed is in the lowest position and locked. Call light and bedside table is within reach. Sz precaution noted; side rails padded, oxygen applied, and suction at bedside. No signs/symptoms of acute distress noted. Will continue plan of care.
[2020-08-04 20:00] VITALS: BP 116/64
--- NOTE | 2020-08-04 20:22 | NUR ---
NURSE HAND-OFF REPORT: Important Events on Shift:[]wound dressing on bilateral legs done, pt stable on, trach. Patient Status: []full code Diet: []gtube feeding 60ml/hr flush 100ml q 4hrs Pending Orders: [] Pending Results/Labs:[] Pending MD notification:[] Latest Vital Signs: Temperature 98.1 , Pulse 108 , B/P 119 /66 , Respiratory Rate 24 , O2 SAT 98 , Trach Collar, O2 Flow Rate 10.0 . Vital Sign Comment: [] EKG Rhythm: Sinus Tachycardia Rhythm change?: N MD Notified?: N -Dr. Aubree VALDEZ Response: Message left await call Latest Ramirez Fall Score: 50 Fall Risk: High Risk Safety Measures: Call light Within Reach, Bed Alarm Zone 1, Side Rails Side Rails x2, Bed position Low and Locked. Fall Precautions: y Yellow Socks y Yellow Gown y Patient Fall Education y Report given to [].lizette/RN
[2020-08-04] MEDS: Dyna-Hex 2% Top Sol 2oz TOPIC SCH (20:53)
[2020-08-05] VITALS: BP 123/71
--- NOTE | 2020-08-05 01:13 | Cardiology Progress Note ---
Subjective DATE OF SERVICE: Aug 04, 2020 Withdrawn but alert with spontaneous eye movements. BP parameters stabilized. Monitor: Sinus arrhythmia with PAC's; paroxysms of AFib/flutter persist. Na levels increasing. Objective Last 24 Hour Vital Signs Date Time Temp Pulse Resp B/P (MAP) Pulse Ox O2 Delivery O2 Flow Rate FiO2 08/05/20 00:00 95 08/04/20 21:09 98 116/64 08/04/20 21:00 94 T-Piece 12.0 50 08/04/20 20:00 100 08/04/20 16:00 108 08/04/20 16:00 98.1 107 24 119/66 (83) 98 08/04/20 12:00 100 08/04/20 12:00 98.7 102 26 114/61 (78) 98 08/04/20 11:45 96 T-Piece 10.0 60 08/04/20 10:36 110 123/64 08/04/20 09:00 Trach Collar 10.0 08/04/20 08:00 111 08/04/20 08:00 99.0 110 24 123/64 (83) 97 08/04/20 07:36 95 T-Piece 10.0 60 08/04/20 04:00 99.3 106 24 108/60 (76) 98 08/04/20 04:00 107 ROS: unchanged from 07/14/20 HEENT: Thick Trach secretions RHYTHM: NSR, ST, PACs, Afib LUNGS: bilateral rhonchi, other - decreased BS left base CARDIAC: normal S1 and S2, rapid rate, arrhythmia ABDOMEN: normal bowel sounds, soft, G-Tube intact EXTREMITIES: normal range of motion, non-tender, trace edema, other - withdrawn Laboratory Tests Test 08/04/20 05:00 White Blood Count 8.9 K/UL (4.8-10.8) Red Blood Count 3.00 M/UL (4.70-6.10) L Hemoglobin 8.2 G/DL (14.2-18.0) L Hematocrit 27.2 % (42.0-52.0) L Mean Corpuscular Volume 91 FL (80-99) Mean Corpuscular Hemoglobin 27.3 PG (27.0-31.0) Mean Corpuscular Hemoglobin Concent 30.1 G/DL (32.0-36.0) L Red Cell Distribution Width 16.9 % (11.6-14.8) H Platelet Count 369 K/UL (150-450) Mean Platelet Volume 5.8 FL (6.5-10.1) L Neutrophils (%) (Auto) 76.6 % (45.0-75.0) H Lymphocytes (%) (Auto) 12.4 % (20.0-45.0) L Monocytes (%) (Auto) 7.0 % (1.0-10.0) Eosinophils (%) (Auto) 3.4 % (0.0-3.0) H Basophils (%) (Auto) 0.6 % (0.0-2.0) Sodium Level 153 MMOL/L (136-145) H Potassium Level 4.8 MMOL/L (3.5-5.1) Chloride Level 115 MMOL/L (98-107) H Carbon Dioxide Level 36 MMOL/L (21-32) H Anion Gap 2 mmol/L (5-15) L Blood Urea Nitrogen 39 mg/dL (7-18) H Creatinine 1.2 MG/DL (0.55-1.30) Estimat Glomerular Filtration Rate > 60 mL/min (>60) Glucose Level 116 MG/DL (74-106) H Calcium Level 8.8 MG/DL (8.5-10.1) Total Bilirubin 0.1 MG/DL (0.2-1.0) L Aspartate Amino Transf (AST/SGOT) 23 U/L (15-37) Alanine Aminotransferase (ALT/SGPT) 25 U/L (12-78) Alkaline Phosphatase 121 U/L (46-116) H Total Protein 7.1 G/DL (6.4-8.2) Albumin 1.0 G/DL (3.4-5.0) L Globulin 6.1 g/dL Albumin/Globulin Ratio 0.2 (1.0-2.7) L Assessment/Plan Assessment/Plan Healthcare associated PNA Paroxysmal atrial fibrillation/flutter Paroxysmal atrial ectopy 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 Dyslipidemia on high dose statin - now dose adjusted Dehydration/hypernatremia Severe protein-calorie malnutrition Titrate beta blockade dose. Abx Resp support Cardiac monitoring Continue full anticoagulation Statin dose adjusted Amiodarone at maintenance dose now Free water replacement continues; await follow up lab studies. Dylan Mak MD Aug 05, 2020 01:13
--- NOTE | 2020-08-05 02:24 | NUR ---
NURSE NOTES: Observed pt asleep in bed. No signs/symptoms of acute distress noted. Will continue plan of care.
[2020-08-05 04:00] VITALS: BP 119/67
--- NOTE | 2020-08-05 07:26 | NUR ---
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 Wound care completed. No signs/symptoms of CP or acute respiratory distress. Patient Status: Stable Diet: Glucerna 1.2 @ 60ml/hr Pending Orders: N Pending Results/Labs: AM Labs Pending MD notification: N Latest Vital Signs: Temperature 99.3 , Pulse 95 , B/P 119 /67 , Respiratory Rate 21 , O2 SAT 94 , Trach Collar, O2 Flow Rate 12.0 . EKG Rhythm: Sinus Rhythm Rhythm change?: N Latest Ramirez Fall Score: 50 Fall Risk: High Risk Safety Measures: Call light Within Reach, Bed Alarm Zone 1, Side Rails Side Rails x2, Bed position Low and Locked. Fall Precautions: Yellow Socks Yellow Gown Report given to SELIN Gloria.
--- NOTE | 2020-08-05 07:57 | NUR ---
NURSE NOTES: pt opens eyes and is non verbal. 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 Pt has trach, and was just suctioned. Gtube intact and patent, no residual. pt on groundwater monitoring technician no sings of cardiac or respiratory distress at this time. Bed is locked and in lowest position call light within reach. Will continue to monitor
[2020-08-05 08:00] VITALS: BP 116/61
--- NOTE | 2020-08-05 08:05 | Surgery Progress Note ---
Surgery Progress Note Subjective Additional Comments low grade fevers labs pending no n/v comfortable appearing on supplemental o2 Objective Last 24 Hour Vital Signs Date Time Temp Pulse Resp B/P (MAP) Pulse Ox O2 Delivery O2 Flow Rate FiO2 08/05/20 07:05 93 T-Piece 12.0 50 08/05/20 04:00 99.3 95 21 119/67 (84) 94 08/05/20 04:00 95 08/05/20 01:20 93 T-Piece 12.0 50 08/05/20 00:00 95 08/05/20 00:00 99.9 95 22 123/71 (88) 96 08/04/20 21:09 98 116/64 08/04/20 21:00 94 T-Piece 12.0 50 08/04/20 21:00 Trach Collar 10.0 08/04/20 20:00 100.0 100 22 116/64 (81) 98 08/04/20 20:00 100 08/04/20 16:00 108 08/04/20 16:00 98.1 107 24 119/66 (83) 98 08/04/20 12:00 100 08/04/20 12:00 98.7 102 26 114/61 (78) 98 08/04/20 11:45 96 T-Piece 10.0 60 08/04/20 10:36 110 123/64 08/04/20 09:00 Trach Collar 10.0 I&O Intake and Output 08/04/20 08/05/20 19:00 07:00 Intake Total 60 ml 825 ml Output Total 650 ml 600 ml Balance -590 ml 225 ml IV Total 825 ml Tube Feeding 60 ml Output Urine Total 650 ml 600 ml Dressing: saturated Cardiovascular: RSR Respiratory: decreased breath sounds Abdomen: soft, non-tender, present bowel sounds, non-distended Extremities: no edema, no tenderness, no cyanosis Laboratory Tests Test 08/05/20 07:33 Sodium Level Pending Potassium Level Pending Chloride Level Pending Carbon Dioxide Level Pending Blood Urea Nitrogen Pending Creatinine Pending Estimat Glomerular Filtration Rate Pending Glucose Level Pending Calcium Level Pending Plan Problems: (1) Decubitus skin ulcer Assessment & Plan: Pt presented on admission with PV shunt,Tracheostomy, Contractures and multiple Pressure Injuries.Skin assessed under tracheal collar. Skin is erythematous but without any open wounds. GT site is red and excoriated.Scattered senile purpuras bilat upper extremities. Full thickness Sacral Pressure Injury(L)11.8cm x (W)8cm. Base of wound is 75% mixed necrosis and slough,20% antonio. Bone is palpable at base. Edges are macerated. Mild odor noted. Small amt brown exudate noted. Periwound is indurated and maroon with additional erythema and scattered Partial thickness shearing. Full Thickness Pressure Injury L trochanteric with undermined borders.(L)5cm x (W)7cm x (D)2.6cm, undermining clockwise 11-2 by 4.2cm @11o'clock. Base of wound is 75%% mixed necrosis and slough,25% antonio. Wound has appearance of two wounds secondary necrotic bridge.In addition, periwound at clockwise 10-2o'clock the base is necrotic and fluctuant with marginal erythema. Small amt malodorous haemopurulent exudate noted. Full thickness Pressure Injury L Ischium(L)3.5cm x (W)2.0cm. Base of wound is 80% slough,20% antonio. Surrounding necrotic borders that are fluctuant.Small amt sanguineous exudate. Mild odor noted. Full thickness Pressure Injury lateral L Tibia to L lateral Malleolus(L)24.5cm x (W)3.5cm. Base of wound is antonio with scattered necrosis and slough, tendon exposure. Semi-detached borders that indurated and macerated with an area of soft necrosis at proximal borders of wound. Small amt haemopurulent exudate noted. No odor noted. Full thickness Pressure Injury L Heel(L)10.3cm x (W)7.5cm. Base of wound is 60% necrotic,10% slough,30% antonio. Bone is palpable. Borders are indurated with a po rtion of borders rolled giving heel a shaved appearance. Moderate amt haemopurulent exudate. Mild odor noted.Periwound is purpuric and fluctuant. Full thickness Pressure Injury medial/lateral L foot(L)3.5cm x (W)3.5cm x (D)0.3cm. Base of wound is antonio. Borders and periwound are purpuric and fluctuant.Small amt sanguineous exudate noted. Unstageable Pressure Injury Distal/Lateral L foot(L)2.7cm x (W)4.3cm. Base of wound is 80% soft necrosis,20% antonio. Edges are adherent to base of wound. Periwound is purpuric and fluctuant. Full thickness Pressure Injury R heel Plantar(L)8.5cm x (W)9cm. Base of pressure with scattered necrosis and slough,otherwise base of wound is antonio. Edges are macerated with surrounding necrosis. Small amt seropurulent exudate noted.Mild odor noted. Stable dry eschar dorsal R foot1.5cm x (W)1cm. Edges are adherent to base of wound. No erythema,induration or fluctuance periwound. Stable dry eschar distal/lateral R foot (L)0.8cm x (W)0.8cm. NO erythema,induration or fluctuance periwound. R foot is edematous. Tx.Plan: Cleanse Sacral wound with Dakin's Kristel 0.25%. Apply Dakin's moistened kerlix to wound. Apply Triad periwound. Cover with Optifoam drsg. Change Daily and prn. Cleanse L trochanteric Wound with Dakin's Kristel 0.25%. Loosely pack with Dakin's moistened Kerlix, Apply Moisture Barrier Periwound. Cover with Optifoam drsg Daily and prn. Cleanse R Ischial wound with Dakin's Kristel 0.25%. Apply Dakin's moistened gauze to wound. Apply Moisture Barrier Paste periwound. Cover with Optifoam drsg Daily and prn. Cleanse wounds Lateral R lower extremity, R Heel and Lateral R foot with Dakin's Kristel 0.25%. Place Dakin's Moistened gauze to wounds. Apply Triad Paste along edges of wound. Cover wounds with ABD Pads. Wrap with Kerlix from Base of toes. Cleanse wound R heel with Dakin's Kristel 0.25%. Apply Dakin's moistened Gauze to wound. Apply Triad Periwound. Cover with ABD PAd and wrap with Kerlix. Swab dry Eschar dorsal and Lateral aspect of R foot .Cover with Abd Pads and Wrap with Kerlix Daily and prn. Wash GT site with Soap and water. Apply Triad Paste Daily and prn(Leave Open to Air) Reposition at least every 2hours or as tolerated. Place Pillow Between Knees. Off-Load Heels with Pillow. APM/TERRIE Mattress overlay. (2) Anemia Assessment & Plan: trend h/h prbc prn (3) UTI (urinary tract infection) (4) Pleural effusion, left Assessment & Plan: Lungs: Hazy left lung attenuation could be due to consolidation, pulmonary edema; correlate with presentation. Retrocardiac atelectasis without or with consolidation. Pleural space: Small-moderate left pleural effusion with passive atelectasis. No pneumothorax. Heart: Unremarkable. No cardiomegaly. Mediastinum: Unremarkable. Bones/joints: No acute abnormality Tubes, lines and devices: Tracheostomy. Right upper extremity PICC tip in the mid SVC. IMPRESSION: 1. Tracheostomy. 2. Right upper extremity PICC tip in the mid SVC. 3. Small-moderate left pleural effusion with passive atelectasis. 4. Hazy left lung attenuation could be due to consolidation, pulmonary edema; correlate with presentation. 5. Retrocardiac atelectasis without or with consolidation. 6. Recommend CT chest with IV contrast to further characterize these findings. (5) Malfunction of gastrostomy tube Assessment & Plan: DAILY ESTIMATED NEEDS: Needs based on Wounds, pulmonary/ 74.5kg 25-30 kcals/kg 6818-6457 total kcals 1.5-2 g protein/kg 111-149 g total protein 25-30 mL/kg 7452-8805 total fluid mLs NUTRITION DIAGNOSIS: * Swallowing difficulty R/T dysphagia, h/o craniotomy, respiratory failure as evidenced by pt on T-collar, GJ tube dependent. * Increased kcal/prot/micronutrients needs R/T wound healing as evidenced by pt admitted w/ multiple advanced wounds including full thickness wound x 7 and unstageable wounds x 2, refer to WC eval. CURRENT TF:Jevity 1.2 @ 60ml/hr x 24 hrs-> now Glucerna 1.2 ENTERAL NUTRITION RECOMMENDATIONS: Glucerna 1.2 @ 65ml/hr x 24 hrs + Prosource 1pkt TID to provide 1560ml, 1872kcal, 94g+ 33g prot, 1259ml free water * Increase goal rate to 65ml/hr x 24 hrs to better meet est needs * Add Prosource 1pkt TID to meet increased protein needs * HOB over 30 degrees/ water flush 150ml q 6hrs without IVF ADDITIONAL RECOMMENDATIONS: * Calibrated bedscale wt * Wound Care: Con't Vit C 500mg BID, ZnSO4 220mg QD x 10 days add Stevie BID * Monitor BGs, need for carb controlled TF -> now on Glucerna 1.2 * Monitor lytes, replete as needed (6) Acute respiratory failure with hypoxia (7) HCAP (healthcare-associated pneumonia) Deny Westfall Aug 05, 2020 08:05
--- NOTE | 2020-08-05 08:49 | General Progress Note ---
Subjective ROS Limited/Unobtainable: No Constitutional: Reports: malaise, weakness HEENT: Reports: no symptoms Cardiovascular: Reports: no symptoms Respiratory: Reports: cough, shortness of breath, sputum Gastrointestinal/Abdominal: Reports: difficulty swallowing Genitourinary: Reports: no symptoms Neurologic/Psychiatric: Reports: pre-existing deficit Endocrine: Reports: no symptoms Hematologic/Lymphatic: Reports: anemia Allergies: Coded Allergies: No Known Allergies (Unverified , 11/02/19) All Systems: reviewed and negative except above Subjective no changes, stable on trach collar. nonverbal. weak and lethargic. nonverbal. tolerating feeds. labs pending. low grade temps noted. minimal congestion. on hypotonic ivf. Objective Last 24 Hour Vital Signs Date Time Temp Pulse Resp B/P (MAP) Pulse Ox O2 Delivery O2 Flow Rate FiO2 08/05/20 07:05 93 T-Piece 12.0 50 08/05/20 04:00 99.3 95 21 119/67 (84) 94 08/05/20 04:00 95 08/05/20 01:20 93 T-Piece 12.0 50 08/05/20 00:00 95 08/05/20 00:00 99.9 95 22 123/71 (88) 96 08/04/20 21:09 98 116/64 08/04/20 21:00 94 T-Piece 12.0 50 08/04/20 21:00 Trach Collar 10.0 08/04/20 20:00 100.0 100 22 116/64 (81) 98 08/04/20 20:00 100 08/04/20 16:00 108 08/04/20 16:00 98.1 107 24 119/66 (83) 98 08/04/20 12:00 100 08/04/20 12:00 98.7 102 26 114/61 (78) 98 08/04/20 11:45 96 T-Piece 10.0 60 08/04/20 10:36 110 123/64 08/04/20 09:00 Trach Collar 10.0 Intake and Output 08/04/20 08/05/20 19:00 07:00 Intake Total 60 ml 825 ml Output Total 650 ml 600 ml Balance -590 ml 225 ml IV Total 825 ml Tube Feeding 60 ml Output Urine Total 650 ml 600 ml Laboratory Tests 08/05/20 07:33: Sodium Level [Pending], Potassium Level [Pending], Chloride Level [Pending], Carbon Dioxide Level [Pending], Blood Urea Nitrogen [Pending], Creatinine [Pending], Estimat Glomerular Filtration Rate [Pending], Glucose Level [Pending], Calcium Level [Pending] Height (Feet): 5 Height (Inches): 4.00 Weight (Pounds): 171 Objective General Appearance: WD/WN, confused EENT: normal ENT inspection Neck: normal alignment Cardiovascular: normal rate, regular rhythm Respiratory/Chest: rhonchi - bilaterally Abdomen: normal bowel sounds, non tender, soft, no organomegaly Edema: no edema noted Leg (L), no edema noted Leg (R) Neurologic: disoriented, aphasia Skin: normal pigmentation Assessment/Plan Problem List: (1) Anemia ICD Codes: D64.9 - Anemia, unspecified SNOMED: 817013327, 632288104 Qualifiers: Qualified Codes: D64.9 - Anemia, unspecified (2) Pleural effusion, left ICD Codes: J90 - Pleural effusion, not elsewhere classified SNOMED: 65575361, 519025708 (3) Malfunction of gastrostomy tube ICD Codes: K94.23 - Gastrostomy malfunction SNOMED: 368831119 (4) Acute respiratory failure with hypoxia ICD Codes: J96.01 - Acute respiratory failure with hypoxia SNOMED: 76428482, 346093504 (5) HCAP (healthcare-associated pneumonia) ICD Codes: J18.9 - Pneumonia, unspecified organism SNOMED: 014657408, 033012620 Status: stable, progressing Assessment/Plan: monitor off abx monitor for fevers trach care resp rx Continue suctioning as needed Continue tube feeds monitor for fever DVT and stress ulcer prophylaxis Monitor on telemetry for recurrent atrial fibrillation. rate control per cards monitor for bleeding cont hypotonic ivf monitor lytes/sodium level dc planning Angel Jaramillo MD Aug 05, 2020 08:49
[2020-08-05 08:50] LABS: ANION GAP 0 mmol/L (5-15); BLOOD UREA NITROGEN 41 mg/dL (7-18); CALCIUM 8.6 MG/DL (8.5-10.1); CARBON DIOXIDE 36 MMOL/L (21-32); CHLORIDE 110 MMOL/L (98-107); CREATININE 1.1 MG/DL (0.55-1.30); POTASSIUM 4.9 MMOL/L (3.5-5.1); SODIUM 146 MMOL/L (136-145)
[2020-08-05] MEDS: Ascorbic Acid 500mg tab GT SCH ×2 (09:39→18:20)
[2020-08-05] MEDS: Metoprolol Tartrate 50mg tab ORAL SCH ×2 (09:40→20:53)
[2020-08-05] MEDS: Zinc Sulfate 220mg GT SCH (09:40)
[2020-08-05] MEDS: Dakin's 0.25% (Half Strength) 16oz TOPIC SCH (09:41)
--- NOTE | 2020-08-05 10:38 | Pulmonology Progress Note ---
Subjective ROS Limited/Unobtainable: Yes Allergies: Coded Allergies: No Known Allergies (Unverified , 11/02/19) All Systems: reviewed and negative except above Subjective CARE NOTED nonverbal on oxygen and still high needs no distress trach collar elevated sodium reviewed Objective Last 24 Hour Vital Signs Date Time Temp Pulse Resp B/P (MAP) Pulse Ox O2 Delivery O2 Flow Rate FiO2 08/05/20 09:40 108 116/61 08/05/20 07:05 93 T-Piece 12.0 50 08/05/20 04:00 99.3 95 21 119/67 (84) 94 08/05/20 04:00 95 08/05/20 01:20 93 T-Piece 12.0 50 08/05/20 00:00 95 08/05/20 00:00 99.9 95 22 123/71 (88) 96 08/04/20 21:09 98 116/64 08/04/20 21:00 94 T-Piece 12.0 50 08/04/20 21:00 Trach Collar 10.0 08/04/20 20:00 100.0 100 22 116/64 (81) 98 08/04/20 20:00 100 08/04/20 16:00 108 08/04/20 16:00 98.1 107 24 119/66 (83) 98 08/04/20 12:00 100 08/04/20 12:00 98.7 102 26 114/61 (78) 98 08/04/20 11:45 96 T-Piece 10.0 60 08/04/20 10:36 110 123/64 Intake and Output 08/04/20 08/05/20 19:00 07:00 Intake Total 60 ml 825 ml Output Total 650 ml 600 ml Balance -590 ml 225 ml IV Total 825 ml Tube Feeding 60 ml Output Urine Total 650 ml 600 ml Objective WDWN NAD awake chronically ill moderate breath sounds bilaterally without rhonchi or wheeze [id number] NABS nontender GT no CCE nonfocal weak wounds noted Laboratory Tests 08/05/20 07:33: Sodium Level 146H, Potassium Level 4.9, Chloride Level 110H, Carbon Dioxide Level 36H, Anion Gap 0L, Blood Urea Nitrogen 41H, Creatinine 1.1, Estimat Gl omerular Filtration Rate > 60, Glucose Level 121H, Calcium Level 8.6 Current Medications Medications (Trade) Dose Ordered Sig/Clive Route PRN Reason Start Time Stop Time Status Last Admin Dose Admin Acetaminophen (Tylenol) 650 mg Q4H PRN GT Temp >100.5 07/18/20 09:30 08/17/20 09:29 08/03/20 15:57 Acetaminophen (Tylenol) 650 mg Q4H PRN RECTAL Temp >100.5 07/14/20 13:30 08/13/20 13:29 Amiodarone HCl (Cordarone) 200 mg DAILY@1800 GT 07/30/20 18:00 10/28/20 17:59 08/04/20 18:30 Ascorbic Acid (Vitamin C) 250 mg TWICE A DAY GT 07/16/20 18:00 08/15/20 17:59 08/05/20 09:39 Atorvastatin Calcium (Lipitor) 10 mg BEDTIME ORAL 08/05/20 21:00 10/22/20 20:59 Chlorhexidine Gluconate (Jennifer-Hex 2%) 1 applic DAILY@2000 TOPIC 07/17/20 20:00 10/15/20 19:59 08/04/20 20:53 Dextrose 1,000 ml @ 75 mls/hr [id number] IV 08/04/20 11:30 09/03/20 11:29 08/05/20 00:58 Famotidine (Pepcid) 20 mg Q12HR GT 07/16/20 21:00 10/14/20 20:59 08/05/20 09:41 Finasteride (Proscar) 5 mg DAILY ORAL 07/15/20 09:00 10/13/20 08:59 08/05/20 09:41 Hydralazine HCl (Apresoline) 25 mg Q6H PRN GT SBP above 150 07/24/20 23:30 10/22/20 23:29 07/26/20 05:22 Levetiracetam (Keppra) 1,000 mg Q12HR ORAL 07/14/20 21:00 08/13/20 20:59 08/05/20 09:39 Metoprolol Tartrate (Lopressor) 50 mg Q12HR ORAL 07/25/20 22:15 10/23/20 22:14 08/05/20 09:40 Multivitamins (Multivitamins) 1 tab DAILY GT 07/17/20 09:00 08/16/20 08:59 08/05/20 09:40 Sodium Hypochlorite (Dakin's Half Strength) 1 applic DAILY TOPIC 07/16/20 13:00 08/15/20 12:59 08/05/20 09:41 Zinc Sulfate (Zinc Sulfate) 220 mg DAILY GT 07/27/20 09:00 10/25/20 08:59 08/05/20 09:40 Assessment/Plan Assessment/Plan Impression: Healthcare-associated pneumonia Acute respiratory failure with hypoxia Tracheostomy status Pleural effusion, left-recurrent Decubitus ulcers Urinary tract infection Anemia S/p previous Craniotomy, RCA occlusion, WOMEN DESIGNER shunt Seizure history GERD, dysphagia s/p GJ tube h/o Hypertension h/o Atrial fibrillation Previous DVT and Pulmonary Embolism, hypernatremia Plan hypotonic fluids monitor lytes events reviewed monitor HH for change J tube feeds O2 - taper; as able still on 50% nebs as needed Wound care Cardiology follow up [facility] [place] Medications dc planning - awaiting CM and discussed impression, plan, and exam edited and reviewed in detail care discussed with Nikita Arreola MD Aug 05, 2020 10:38
--- NOTE | 2020-08-05 10:56 | NUR ---
RD ASSESSMENT & RECOMMENDATIONS SEE CARE ACTIVITY FOR COMPLETE ASSESSMENT DAILY ESTIMATED NEEDS: Needs based on Wounds, pulmonary/ 74.5kg 25-30 kcals/kg 2895-0192 total kcals 1.5-2 g protein/kg 111-149 g total protein 25-30 mL/kg 1861-3888 total fluid mLs NUTRITION DIAGNOSIS: * Swallowing difficulty R/T dysphagia, h/o craniotomy, respiratory failure as evidenced by pt on T-collar, GJ tube dependent. * Increased kcal/prot/micronutrients needs R/T wound healing as evidenced by pt admitted w/ multiple advanced wounds including full thickness wound x 7 and unstageable wounds x 2, refer to WC eval. CURRENT TF:Jevity 1.2 @ 60ml/hr x 24 hrs-> now Glucerna 1.2 ENTERAL NUTRITION RECOMMENDATIONS: Glucerna 1.2 @ 65ml/hr x 24 hrs + Prosource 1pkt TID to provide 1560ml, 1872kcal, 94g+ 33g prot, 1259ml free water * Increase goal rate to 65ml/hr x 24 hrs to better meet est needs * Add Prosource 1pkt TID to meet increased protein needs * HOB over 30 degrees/ water flush 180ml q 6hrs without IVF ADDITIONAL RECOMMENDATIONS: * Calibrated bedscale wt * Wound Care: Con't Vit C 500mg BID, ZnSO4 220mg QD x 10 days add Stevie BID * Monitor BGs, need for carb controlled TF -> now on Glucerna 1.2 rec accuchecks * Monitor lytes, replete as needed
[2020-08-05 12:00] VITALS: BP 124/66
[2020-08-05] MEDS: Acetaminophen 650mg/20.3ml GT PRN (13:22)
[2020-08-05 16:00] VITALS: BP 119/87
[2020-08-05] MEDS: Amiodarone 200mg tab GT SCH (18:20)
--- NOTE | 2020-08-05 19:30 | NUR ---
NURSE NOTES: Received pt and report from SELIN Gloria. Observed pt resting in bed with both eyes closed; arousable to voice and light shaking. Pt is A/Ox0, nonverbal. Upper and lower extremities contracted. monitor worker is in placed; pt is NSR. Pt has an KIZZY PICC line; intact, asymptomatic and patent; running D5W @75ml/hr. Pt has a trach in placed; Shiley 4, 10LPM O2, FiO2 40%; sating at 94%. No acute respiratory distress noted. Pt has a G-tube; running Glucerna 1.2 @ 60cc/hr, continuous. No residual noted. Pt has a [place] in placed for urinary retention draining by gravity; yellow and slightly cloudy. Pt has a rectal tube in placed, flowing by gravity due to multiple wounds. Bed is in the lowest position and locked. Call light and bedside table is within reach. Sz precaution noted; side rails padded, oxygen applied, and suction at bedside. No signs/symptoms of acute distress noted. Will continue plan of care.
--- NOTE | 2020-08-05 19:34 | NUR ---
NURSE HAND-OFF REPORT: Important Events on Shift:[]bilateral extremities wound care done. Gtube patent no residual , suction trach often Patient Status: [] full code Diet: []REnal Pending Orders: [] Pending Results/Labs:[] Pending MD notification:[] Latest Vital Signs: Temperature 96.7 , Pulse 94 , B/P 119 /87 , Respiratory Rate 20 , O2 SAT 93 , Trach Collar, O2 Flow Rate 12.0 . Vital Sign Comment: [] EKG Rhythm: Sinus Rhythm Rhythm change?: N MD Notified?: N -Dr. Aubree VALDEZ Response: Message left await call Latest Ramirez Fall Score: 50 Fall Risk: High Risk Safety Measures: Call light Within Reach, Bed Alarm Zone 1, Side Rails Side Rails x2, Bed position Low and Locked. Fall Precautions: y Yellow Socks y Yellow Gown y Report given to [].Kerrie/RN
[2020-08-05 20:00] VITALS: BP 112/62
[2020-08-05] MEDS: Dyna-Hex 2% Top Sol 2oz TOPIC SCH (20:24)
[2020-08-05] MEDS: Atorvastatin 20mg tab ORAL SCH (20:52)
--- NOTE | 2020-08-05 22:26 | General Progress Note ---
Subjective Allergies: Coded Allergies: No Known Allergies (Unverified , 11/02/19) Subjective Above noted non communicative stools brown, rectal tube tolerating TF Objective Last 24 Hour Vital Signs Date Time Temp Pulse Resp B/P (MAP) Pulse Ox O2 Delivery O2 Flow Rate FiO2 08/05/20 20:53 103 111/62 08/05/20 20:00 98 08/05/20 19:16 93 T-Piece 12.0 50 08/05/20 16:00 91 08/05/20 16:00 96.7 94 20 119/87 (98) 94 08/05/20 13:52 98.8 08/05/20 13:30 92 T-Piece 12.0 50 08/05/20 12:00 98.8 91 22 124/66 (85) 92 08/05/20 12:00 95 08/05/20 09:40 108 116/61 08/05/20 09:00 Trach Collar 10.0 08/05/20 08:00 97.7 108 22 116/61 (79) 94 08/05/20 08:00 105 08/05/20 07:05 93 T-Piece 12.0 50 08/05/20 04:00 99.3 95 21 119/67 (84) 94 08/05/20 04:00 95 08/05/20 01:20 93 T-Piece 12.0 50 08/05/20 00:00 95 08/05/20 00:00 99.9 95 22 123/71 (88) 96 Intake and Output 08/04/20 08/05/20 19:00 07:00 Intake Total 60 ml 825 ml Output Total 650 ml 600 ml Balance -590 ml 225 ml IV Total 825 ml Tube Feeding 60 ml Output Urine Total 650 ml 600 ml Laboratory Tests 08/05/20 07:33: Sodium Level 146H, Potassium Level 4.9, Chloride Level 110H, Carbon Dioxide Level 36H, Anion Gap 0L, Blood Urea Nitrogen 41H, Creatinine 1.1, Estimat Glomerular Filtration Rate > 60, Glucose Level 121H, Calcium Level 8.6 Height (Feet): 5 Height (Inches): 4.00 Weight (Pounds): 171 Objective Eldely WM NCAT (+) trach , T tube Coarse BS RRR abd soft (+) GT ext no edema Assessment/Plan Status: stable, progressing Assessment/Plan: Assessment - UGIB - resolved - Anemia, s/p transfusion - h/o PUD - resp failure, s/p trach - dysphagia, s/p PEG - atrial fibrillation - h/o DVT - hypernatremia Recommendations - anticoagulation - H2B BID indefinitely - TF -- increase free water - follow H&H Akiko Rai MD Aug 05, 2020 22:25
--- NOTE | 2020-08-05 22:39 | Neurology Progress Note ---
Interim History Interim History ROS Limited/Unobtainable: Yes Interim History no seizures remains lethargic Objective Physical Exam Last Vital Signs Date Time Temp Pulse Resp B/P (MAP) Pulse Ox O2 Delivery O2 Flow Rate FiO2 08/05/20 20:53 103 111/62 08/05/20 19:16 93 T-Piece 12.0 50 08/05/20 16:00 96.7 20 Laboratory Tests Test 08/05/20 07:33 Sodium Level 146 MMOL/L (136-145) H Potassium Level 4.9 MMOL/L (3.5-5.1) Chloride Level 110 MMOL/L (98-107) H Carbon Dioxide Level 36 MMOL/L (21-32) H Anion Gap 0 mmol/L (5-15) L Blood Urea Nitrogen 41 mg/dL (7-18) H Creatinine 1.1 MG/DL (0.55-1.30) Estimat Glomerular Filtration Rate > 60 mL/min (>60) Glucose Level 121 MG/DL (74-106) H Calcium Level 8.6 MG/DL (8.5-10.1) Head: normocophalic Neck: no rigidity EENT: benign Neurologic Exam Objective lethargic, pupils reactive not following withdraws to pain Impression/Recommendations Problems: (1) Malfunction of gastrostomy tube (2) Anemia (3) Pleural effusion, left (4) Acute respiratory failure with hypoxia (5) HCAP (healthcare-associated pneumonia) (6) UTI (urinary tract infection) Status: stable, progressing Diagnostic Impression Recurrent sepsis Possible aspiration Encephalopathy, acute on chronic rule out seizures map > 65 ro covid cont atb fu cultures no need for AED now Gerson Singh MD Aug 05, 2020 22:39
[2020-08-06] VITALS: BP 113/60
--- NOTE | 2020-08-06 00:41 | Cardiology Progress Note ---
Subjective DATE OF SERVICE: Aug 05, 2020 Withdrawn but alert with spontaneous eye movements. BP parameters stabilized. Monitor: Sinus arrhythmia with PAC's; paroxysms of AFib/flutter persist. Na levels elevated, but improved. Objective Last 24 Hour Vital Signs Date Time Temp Pulse Resp B/P (MAP) Pulse Ox O2 Delivery O2 Flow Rate FiO2 08/06/20 00:00 92 08/06/20 00:00 98.6 98 20 113/60 (77) 92 08/05/20 21:00 Trach Collar 10.0 08/05/20 20:53 103 111/62 08/05/20 20:00 98 08/05/20 20:00 98.3 102 21 112/62 (79) 94 08/05/20 19:16 93 T-Piece 12.0 50 08/05/20 16:00 91 08/05/20 16:00 96.7 94 20 119/87 (98) 94 08/05/20 13:52 98.8 08/05/20 13:30 92 T-Piece 12.0 50 08/05/20 12:00 98.8 91 22 124/66 (85) 92 08/05/20 12:00 95 08/05/20 09:40 108 116/61 08/05/20 09:00 Trach Collar 10.0 08/05/20 08:00 97.7 108 22 116/61 (79) 94 08/05/20 08:00 105 08/05/20 07:05 93 T-Piece 12.0 50 08/05/20 04:00 99.3 95 21 119/67 (84) 94 08/05/20 04:00 95 08/05/20 01:20 93 T-Piece 12.0 50 ROS: unchanged from 07/14/20 HEENT: Thick Trach secretions RHYTHM: NSR, ST, PACs, Afib LUNGS: bilateral rhonchi, other - decreased BS left base CARDIAC: normal S1 and S2, rapid rate, arrhythmia ABDOMEN: normal bowel sounds, soft, G-Tube intact EXTREMITIES: normal range of motion, non-tender, trace edema, other - withdrawn Laboratory Tests Test 08/05/20 07:33 Sodium Level 146 MMOL/L (136-145) H Potassium Level 4.9 MMOL/L (3.5-5.1) Chloride Level 110 MMOL/L (98-107) H Carbon Dioxide Level 36 MMOL/L (21-32) H Anion Gap 0 mmol/L (5-15) L Blood Urea Nitrogen 41 mg/dL (7-18) H Creatinine 1.1 MG/DL (0.55-1.30) Estimat Glomerular Filtration Rate > 60 mL/min (>60) Glucose Level 121 MG/DL (74-106) H Calcium Level 8.6 MG/DL (8.5-10.1) Assessment/Plan Assessment/Plan Healthcare associated PNA Paroxysmal atrial fibrillation/flutter Paroxysmal atrial ectopy Hx ICB with craniotomy and PYROTECHNICIAN shunt Ac/chronic encephalopathy Seizure disorder Troponin leak; no signs of acute AK Trach status Dysphagia with GJ-Tube 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 Dyslipidemia on high dose statin - now dose adjusted Dehydration/hypernatremia Severe protein-calorie malnutrition Titrate beta blockade dose. Abx Resp support Cardiac monitoring Continue full anticoagulation Statin dose adjusted Amiodarone at maintenance dose now Free water replacement continues. Dylna Mak MD Aug 06, 2020 00:41
--- NOTE | 2020-08-06 02:13 | NUR ---
NURSE NOTES: Observed pt resting in bed with both eyes closed. Pt is arousable to voice and light shaking. Tracheal suctioning completed; moderate white/clear sputum. No signs/symptoms of acute distress noted. Will continue plan of care.
[2020-08-06 04:00] VITALS: BP 114/64
--- NOTE | 2020-08-06 04:11 | NUR ---
NURSE NOTES: Bed bath and wound care completed. Tracheal suctioned; moderate white/clear sputum. No respiratory distress noted.
--- NOTE | 2020-08-06 06:15 | NUR ---
NURSE NOTES: Pt desaturated to 85%. RT, [place], increased settings to 12LPM, FiO2 50%. Pt is now sating at 94%. Will monitor pt closely.
--- NOTE | 2020-08-06 06:52 | NUR ---
NURSE NOTES: Dr. Jaramillo made aware of new oxygen settings and that pt is now PUI. No new orders at this time.
[2020-08-06 06:58] LABS: ANION GAP 3 mmol/L (5-15); BLOOD UREA NITROGEN 38 mg/dL (7-18); CALCIUM 8.6 MG/DL (8.5-10.1); CARBON DIOXIDE 35 MMOL/L (21-32); CHLORIDE 105 MMOL/L (98-107); CREATININE 1.1 MG/DL (0.55-1.30); POTASSIUM 4.8 MMOL/L (3.5-5.1); SODIUM 142 MMOL/L (136-145)
[2020-08-06 07:26] LABS: HEMATOCRIT 24.4 % (42.0-52.0); HEMOGLOBIN 7.5 G/DL (14.2-18.0); MEAN CORPUSCULAR VOLUME 89 FL (80-99); PLATELET COUNT 348 K/UL (150-450); RED BLOOD COUNT 2.75 M/UL (4.70-6.10); RED CELL DISTRIBUTION WIDTH 16.5 % (11.6-14.8); WHITE BLOOD COUNT 7.9 K/UL (4.8-10.8)
--- NOTE | 2020-08-06 07:37 | NUR ---
NURSE HAND-OFF REPORT: Important Events on Shift: Oxygen increased to 12LPM, FiO2 50%; sating at 94%. Patient Status: On-going Diet: Glucerna 1.2 @ 60ml/hr Pending Orders: N Pending Results/Labs: AM Labs Pending MD notification: N Latest Vital Signs: Temperature 98.3 , Pulse 104 , B/P 114 /64 , Respiratory Rate 22 , O2 SAT 92 , Trach Collar, O2 Flow Rate 12.0 . EKG Rhythm: Sinus Rhythm Rhythm change?: N Latest Ramirez Fall Score: 50 Fall Risk: High Risk Safety Measures: Call light Within Reach, Bed Alarm Zone 1, Side Rails Side Rails x2, Bed position Low and Locked. Fall Precautions: Yellow Socks Yellow Gown Report given to SELIN Cook.
[2020-08-06 08:00] VITALS: BP 133/73
--- NOTE | 2020-08-06 08:21 | NUR ---
NURSE NOTES: Report received from Kerrie RN. Patient seen on rounds, GCS 4 (E2, V1, M1), FLACC 0, on trache collar at 12lpm with no signs of acute distress, noted thick, copious whitish green secretions. Nurse reports pt had episode of desats last night despite suctioning and O2 requirements were increased. PICC on right upper arm patent and intact infusing D5W at 75ml/hr. Gtube patent and infusing Glucerna 1.2@ 60ml/hr, no residuals reported, HOB at 45 degrees. [place] cath secured and draining. Nurse reports wound dressings were changed last night, will reassess today. Bed low and locked, siderails up x2 and padded, zone alarms on 1. Will continue with plan of care.
--- NOTE | 2020-08-06 08:23 | NUR ---
NURSE NOTES: Dr. Devlin notified of CBC results, Hgb 7.5, Hct 24.4. Awaiting response.
[2020-08-06] MEDS: Zinc Sulfate 220mg GT SCH (09:55)
[2020-08-06] MEDS: Metoprolol Tartrate 50mg tab ORAL SCH ×2 (09:56→20:56)
[2020-08-06] MEDS: Ascorbic Acid 500mg tab GT SCH ×2 (09:56→18:19)
[2020-08-06] MEDS: Dakin's 0.25% (Half Strength) 16oz TOPIC SCH (10:02)
--- NOTE | 2020-08-06 10:56 | Infectious Diseases Prog Note ---
Assessment/Plan Assessment/Plan antibiotics : none A 1. aspiration pneumonia. COVID19 test is negative. 2. coag neg staph line sepsis s/p rx 3. Hypertension. 4. Atrial fibrillation. 5. anemia 6. respiratory failure S/p tracheostomy 7. Left pleural effusion P 1. observe off antibiotics 2. will follow up cultures 3. will sign off Thank you Subjective ROS Limited/Unobtainable: Yes Allergies: Coded Allergies: No Known Allergies (Unverified , 11/02/19) Objective Last 24 Hour Vital Signs Date Time Temp Pulse Resp B/P (MAP) Pulse Ox O2 Delivery O2 Flow Rate FiO2 08/06/20 09:56 110 133/73 08/06/20 09:00 Trach Collar 12.0 08/06/20 08:00 100 08/06/20 07:30 92 T-Piece 12.0 50 08/06/20 04:00 95 08/06/20 04:00 98.3 104 22 114/64 (81) 92 08/06/20 01:10 93 T-Piece 12.0 50 08/06/20 00:00 92 08/06/20 00:00 98.6 98 20 113/60 (77) 92 08/05/20 21:00 Trach Collar 10.0 08/05/20 20:53 103 111/62 08/05/20 20:00 98 08/05/20 20:00 98.3 102 21 112/62 (79) 94 08/05/20 19:16 93 T-Piece 12.0 50 08/05/20 16:00 91 08/05/20 16:00 96.7 94 20 119/87 (98) 94 08/05/20 13:52 98.8 08/05/20 13:30 92 T-Piece 12.0 50 08/05/20 12:00 98.8 91 22 124/66 (85) 92 08/05/20 12:00 95 Height (Feet): 5 Height (Inches): 4.00 Weight (Pounds): 171 HEENT: status post trach Respiratory/Chest: lungs clear Cardiovascular: normal rate, regular rhythm, no gallop/murmur Abdomen: soft, non tender, other - GT Extremities: no edema Laboratory Tests Test 08/06/20 06:40 White Blood Count 7.9 K/UL (4.8-10.8) Red Blood Count 2.75 M/UL (4.70-6.10) L Hemoglobin 7.5 G/DL (14.2-18.0) L Hematocrit 24.4 % (42.0-52.0) L Mean Corpuscular Volume 89 FL (80-99) Mean Corpuscular Hemoglobin 27.4 PG (27.0-31.0) Mean Corpuscular Hemoglobin Concent 30.9 G/DL (32.0-36.0) L Red Cell Distribution Width 16.5 % (11.6-14.8) H Platelet Count 348 K/UL (150-450) Mean Platelet Volume 6.0 FL (6.5-10.1) L Neutrophils (%) (Auto) % (45.0-75.0) Lymphocytes (%) (Auto) % (20.0-45.0) Monocytes (%) (Auto) % (1.0-10.0) Eosinophils (%) (Auto) % (0.0-3.0) Basophils (%) (Auto) % (0.0-2.0) Differential Total Cells Counted 100 Neutrophils % (Manual) 74 % (45-75) Lymphocytes % (Manual) 14 % (20-45) L Monocytes % (Manual) 10 % (1-10) Eosinophils % (Manual) 2 % (0-3) Basophils % (Manual) 0 % (0-2) Band Neutrophils 0 % (0-8) Platelet Estimate Adequate Platelet Morphology Normal Hypochromasia 1+ Anisocytosis 1+ Sodium Level 142 MMOL/L (136-145) Potassium Level 4.8 MMOL/L (3.5-5.1) Chloride Level 105 MMOL/L (98-107) Carbon Dioxide Level 35 MMOL/L (21-32) H Anion Gap 3 mmol/L (5-15) L Blood Urea Nitrogen 38 mg/dL (7-18) H Creatinine 1.1 MG/DL (0.55-1.30) Estimat Glomerular Filtration Rate > 60 mL/min (>60) Glucose Level 123 MG/DL (74-106) H Calcium Level 8.6 MG/DL (8.5-10.1) Magnesium Level 2.4 MG/DL (1.8-2.4) Pro-B-Type Natriuretic Peptide 3515 pg/mL (0-125) H Current Medications Medications (Trade) Dose Ordered Sig/Clive Route PRN Reason Start Time Stop Time Status Last Admin Dose Admin Acetaminophen (Tylenol) 650 mg Q4H PRN GT Temp >100.5 07/18/20 09:30 08/17/20 09:29 08/05/20 13:22 Acetaminophen (Tylenol) 650 mg Q4H PRN RECTAL Temp >100.5 07/14/20 13:30 08/13/20 13:29 Amiodarone HCl (Cordarone) 200 mg DAILY@1800 GT 07/30/20 18:00 10/28/20 17:59 08/05/20 18:20 Ascorbic Acid (Vitamin C) 250 mg TWICE A DAY GT 07/16/20 18:00 08/15/20 17:59 08/06/20 09:56 Atorvastatin Calcium (Lipitor) 10 mg BEDTIME ORAL 08/05/20 21:00 10/22/20 20:59 08/05/20 20:52 Chlorhexidine Gluconate (Jennifer-Hex 2%) 1 applic DAILY@2000 TOPIC 07/17/20 20:00 10/15/20 19:59 08/05/20 20:24 Dextrose 1,000 ml @ 75 mls/hr [id number] IV 08/04/20 11:30 09/03/20 11:29 08/06/20 03:01 Famotidine (Pepcid) 20 mg Q12HR GT 07/16/20 21:00 10/14/20 20:59 08/06/20 09:56 Finasteride (Proscar) 5 mg DAILY ORAL 07/15/20 09:00 10/13/20 08:59 08/06/20 09:56 Hydralazine HCl (Apresoline) 25 mg Q6H PRN GT SBP above 150 07/24/20 23:30 10/22/20 23:29 07/26/20 05:22 Levetiracetam (Keppra) 1,000 mg Q12HR ORAL 07/14/20 21:00 08/13/20 20:59 08/06/20 09:55 Metoprolol Tartrate (Lopressor) 50 mg Q12HR ORAL 07/25/20 22:15 10/23/20 22:14 08/06/20 09:56 Multivitamins (Multivitamins) 1 tab DAILY GT 07/17/20 09:00 08/16/20 08:59 08/06/20 09:56 Sodium Hypochlorite (Dakin's Half Strength) 1 applic DAILY TOPIC 07/16/20 13:00 08/15/20 12:59 08/06/20 10:02 Zinc Sulfate (Zinc Sulfate) 220 mg DAILY GT 07/27/20 09:00 10/25/20 08:59 08/06/20 09:55 Kristie Reina MD Aug 06, 2020 10:56
[2020-08-06 12:00] VITALS: BP 124/58
--- NOTE | 2020-08-06 12:29 | Surgery Progress Note ---
Surgery Progress Note Subjective Additional Comments no acute events comfortable stable no n/v Objective Last 24 Hour Vital Signs Date Time Temp Pulse Resp B/P (MAP) Pulse Ox O2 Delivery O2 Flow Rate FiO2 08/06/20 09:56 110 133/73 08/06/20 09:00 Trach Collar 12.0 08/06/20 08:00 97.0 110 20 133/73 (93) 91 08/06/20 08:00 100 08/06/20 07:30 92 T-Piece 12.0 50 08/06/20 04:00 95 08/06/20 04:00 98.3 104 22 114/64 (81) 92 08/06/20 01:10 93 T-Piece 12.0 50 08/06/20 00:00 92 08/06/20 00:00 98.6 98 20 113/60 (77) 92 08/05/20 21:00 Trach Collar 10.0 08/05/20 20:53 103 111/62 08/05/20 20:00 98 08/05/20 20:00 98.3 102 21 112/62 (79) 94 08/05/20 19:16 93 T-Piece 12.0 50 08/05/20 16:00 91 08/05/20 16:00 96.7 94 20 119/87 (98) 94 08/05/20 13:52 98.8 08/05/20 13:30 92 T-Piece 12.0 50 I&O Intake and Output 08/05/20 08/06/20 19:00 07:00 Intake Total 60 ml 1185 ml Output Total 400 ml 300 ml Balance -340 ml 885 ml Intake Free Water 300 ml IV Total 825 ml Tube Feeding 60 ml 60 ml Output Urine Total 400 ml 300 ml # Bowel Movements 100 Dressing: saturated Cardiovascular: RSR Respiratory: decreased breath sounds Abdomen: soft, non-tender, present bowel sounds Extremities: no tenderness, no cyanosis Laboratory Tests Test 08/06/20 06:40 White Blood Count 7.9 K/UL (4.8-10.8) Red Blood Count 2.75 M/UL (4.70-6.10) L Hemoglobin 7.5 G/DL (14.2-18.0) L Hematocrit 24.4 % (42.0-52.0) L Mean Corpuscular Volume 89 FL (80-99) Mean Corpuscular Hemoglobin 27.4 PG (27.0-31.0) Mean Corpuscular Hemoglobin Concent 30.9 G/DL (32.0-36.0) L Red Cell Distribution Width 16.5 % (11.6-14.8) H Platelet Count 348 K/UL (150-450) Mean Platelet Volume 6.0 FL (6.5-10.1) L Neutrophils (%) (Auto) % (45.0-75.0) Lymphocytes (%) (Auto) % (20.0-45.0) Monocytes (%) (Auto) % (1.0-10.0) Eosinophils (%) (Auto) % (0.0-3.0) Basophils (%) (Auto) % (0.0-2.0) Differential Total Cells Counted 100 Neutrophils % (Manual) 74 % (45-75) Lymphocytes % (Manual) 14 % (20-45) L Monocytes % (Manual) 10 % (1-10) Eosinophils % (Manual) 2 % (0-3) Basophils % (Manual) 0 % (0-2) Band Neutrophils 0 % (0-8) Platelet Estimate Adequate Platelet Morphology Normal Hypochromasia 1+ Anisocytosis 1+ Sodium Level 142 MMOL/L (136-145) Potassium Level 4.8 MMOL/L (3.5-5.1) Chloride Level 105 MMOL/L (98-107) Carbon Dioxide Level 35 MMOL/L (21-32) H Anion Gap 3 mmol/L (5-15) L Blood Urea Nitrogen 38 mg/dL (7-18) H Creatinine 1.1 MG/DL (0.55-1.30) Estimat Glomerular Filtration Rate > 60 mL/min (>60) Glucose Level 123 MG/DL (74-106) H Calcium Level 8.6 MG/DL (8.5-10.1) Magnesium Level 2.4 MG/DL (1.8-2.4) Pro-B-Type Natriuretic Peptide 3515 pg/mL (0-125) H Plan Problems: (1) Decubitus skin ulcer Assessment & Plan: Pt presented on admission with PV shunt,Tracheostomy, Contractures and multiple Pressure Injuries.Skin assessed under tracheal collar. Skin is erythematous but without any open wounds. GT site is red and excoriated.Scattered senile purpuras bilat upper extremities. Full thickness Sacral Pressure Injury(L)11.8cm x (W)8cm. Base of wound is 75% mixed necrosis and slough,20% antonio. Bone is palpable at base. Edges are macerat ed. Mild odor noted. Small amt brown exudate noted. Periwound is indurated and maroon with additional erythema and scattered Partial thickness shearing. Full Thickness Pressure Injury L trochanteric with undermined borders.(L)5cm x (W)7cm x (D)2.6cm, undermining clockwise 11-2 by 4.2cm @11o'clock. Base of wound is 75%% mixed necrosis and slough,25% antonio. Wound has appearance of two wounds secondary necrotic bridge.In addition, periwound at clockwise 10-2o'clock the base is necrotic and fluctuant with marginal erythema. Small amt malodorous haemopurulent exudate noted. Full thickness Pressure Injury L Ischium(L)3.5cm x (W)2.0cm. Base of wound is 80% slough,20% antonio. Surrounding necrotic borders that are fluctuant.Small amt sanguineous exudate. Mild odor noted. Full thickness Pressure Injury lateral L Tibia to L lateral Malleolus(L)24.5cm x (W)3.5cm. Base of wound is antonio with scattered necrosis and slough, tendon exposure. Semi-detached borders that indurated and macerated with an area of soft necrosis at proximal borders of wound. Small amt haemopurulent exudate noted. No odor noted. Full thickness Pressure Injury L Heel(L)10.3cm x (W)7.5cm. Base of wound is 60% necrotic,10% slough,30% antonio. Bone is palpable. Borders are indurated with a portion of borders rolled giving heel a shaved appearance. Moderate amt haemopurulent exudate. Mild odor noted.Periwound is purpuric and fluctuant. Full thickness Pressure Injury medial/lateral L foot(L)3.5cm x (W)3.5cm x (D)0.3cm. Base of wound is antonio. Borders and periwound are purpuric and fluctuant.Small amt sanguineous exudate noted. Unstageable Pressure Injury Distal/Lateral L foot(L)2.7cm x (W)4.3cm. Base of wound is 80% soft necrosis,20% antonio. Edges are adherent to base of wound. Periwound is purpuric and fluctuant. Full thickness Pressure Injury R heel Plantar(L)8.5cm x (W)9cm. Base of pressure with scattered necrosis and slough,otherwise base of wound is antonio. Edges are macerated with surrounding necrosis. Small amt seropurulent exudate noted.Mild odor noted. Stable dry eschar dorsal R foot1.5cm x (W)1cm. Edges are adherent to base of wound. No erythema,induration or fluctuance periwound. Stable dry eschar distal/lateral R foot (L)0.8cm x (W)0.8cm. NO erythema,induration or fluctuance periwound. R foot is edematous. Tx.Plan: Cleanse Sacral wound with Dakin's Kristel 0.25%. Apply Dakin's moistened kerlix to wound. Apply Triad periwound. Cover with Optifoam drsg. Change Daily and prn. Cleanse L trochanteric Wound with Dakin's Kristel 0.25%. Loosely pack with Dakin's moistened Kerlix, Apply Moisture Barrier Periwound. Cover with Optifoam drsg Daily and prn. Cleanse R Ischial wound with Dakin's Kristel 0.25%. Apply Dakin's moistened gauze to wound. Apply Moisture Barrier Paste periwound. Cover with Optifoam drsg Daily and prn. Cleanse wounds Lateral R lower extremity, R Heel and Lateral R foot with Dakin's Kristel 0.25%. Place Dakin's Moistened gauze to wounds. Apply Triad Paste along edges of wound. Cover wounds with ABD Pads. Wrap with Kerlix from Base of toes. Cleanse wound R heel with Dakin's Kristel 0.25%. Apply Dakin's moistened Gauze to wound. Apply Triad Periwound. Cover with ABD PAd and wrap with Kerlix. Swab dry Eschar dorsal and Lateral aspect of R foot .Cover with Abd Pads and Wrap with Kerlix Daily and prn. Wash GT site with Soap and water. Apply Triad Paste Daily and prn(Leave Open to Air) Reposition at least every 2hours or as tolerated. Place Pillow Between Knees. Off-Load Heels with Pillow. APM/TERRIE Mattress overlay. (2) Anemia Assessment & Plan: trend h/h prbc prn (3) UTI (urinary tract infection) (4) Pleural effusion, left Assessment & Plan: Lungs: Hazy left lung attenuation could be due to consolidation, pulmonary edema; correlate with presentation. Retrocardiac atelectasis without or with consolidation. Pleural space: Small-moderate left pleural effusion with passive atelectasis. No pneumothorax. Heart: Unremarkable. No cardiomegaly. Mediastinum: Unremarkable. Bones/joints: No acute abnormality Tubes, lines and devices: Tracheostomy. Right upper extremity PICC tip in the mid SVC. IMPRESSION: 1. Tracheostomy. 2. Right upper extremity PICC tip in the mid SVC. 3. Small-moderate left pleural effusion with passive atelectasis. 4. Hazy left lung attenuation could be due to consolidation, pulmonary edema; correlate with presentation. 5. Retrocardiac atelectasis without or with consolidation. 6. Recommend CT chest with IV contrast to further characterize these findings. (5) Malfunction of gastrostomy tube Assessment & Plan: DAILY ESTIMATED NEEDS: Needs based on Wounds, pulmonary/ 74.5kg 25-30 kcals/kg [id number] total kcals 1.5-2 g protein/kg 111-149 g total protein 25-30 mL/kg [id number] total fluid mLs NUTRITION DIAGNOSIS: * Swallowing difficulty R/T dysphagia, h/o craniotomy, respiratory failure as evidenced by pt on T-collar, GJ tube dependent. * Increased kcal/prot/micronutrients needs R/T wound healing as evidenced by pt admitted w/ multiple advanced wounds including full thickness wound x 7 and unstageable wounds x 2, refer to WC eval. CURRENT TF:Jevity 1.2 @ 60ml/hr x 24 hrs-> now Glucerna 1.2 ENTERAL NUTRITION RECOMMENDATIONS: Glucerna 1.2 @ 65ml/hr x 24 hrs + Prosource 1pkt TID to provide 1560ml, 1872kcal, 94g+ 33g prot, 1259ml free water * Increase goal rate to 65ml/hr x 24 hrs to better meet est needs * Add Prosource 1pkt TID to meet increased protein needs * HOB over 30 degrees/ water flush 150ml q 6hrs without IVF ADDITIONAL RECOMMENDATIONS: * Calibrated bedscale wt * Wound Care: Con't Vit C 500mg BID, ZnSO4 220mg QD x 10 days add Stevie BID * Monitor BGs, need for carb controlled TF -> now on Glucerna 1.2 * Monitor lytes, replete as needed (6) Acute respiratory failure with hypoxia (7) HCAP (healthcare-associated pneumonia) Deny Westfall Aug 06, 2020 12:29
--- NOTE | 2020-08-06 13:27 | NUR ---
NURSE NOTES: Blood transfusion started at 1:27pm. Will monitor for adverse reactions.
--- NOTE | 2020-08-06 15:01 | NUR ---
CASE MANAGEMENT:REVIEW 08/06/20 SI: PNA. UTI. BACTEREMIA. UGIB 99.3 110 18 124/58 94% ON 12L/50% VIA TRACH COLLAR H/H-7.5/24.4 CO2+35 BUN+38 IS: TRANSFUSE 1 UNIT PRBC'S IVF@75/HR AMIODARONE GT QD ZINC GT QD LOPRESSOR GT Q12 LIPITOR GT QHS PEPCID GT Q12 KEPPRA GT Q12 : TELEMETRY STATUS DCP: FROM HOME PLAN: WEAN OXYGEN TO LEVEL OF APPROPRIATENESS FOR HOME NOVEL COVID RESULTS PENDING
[2020-08-06 16:00] VITALS: BP 129/62
--- NOTE | 2020-08-06 16:51 | Pulmonology Progress Note ---
Subjective ROS Limited/Unobtainable: Yes Allergies: Coded Allergies: No Known Allergies (Unverified , 11/02/19) All Systems: reviewed and negative except above Subjective CARE NOTED nonverbal on oxygen no distress trach collar Objective Last 24 Hour Vital Signs Date Time Temp Pulse Resp B/P (MAP) Pulse Ox O2 Delivery O2 Flow Rate FiO2 08/06/20 13:05 94 T-Piece 12.0 50 08/06/20 12:00 94 08/06/20 12:00 97.5 94 18 124/58 (80) 90 08/06/20 09:56 110 133/73 08/06/20 09:00 Trach Collar 12.0 08/06/20 08:00 97.0 110 20 133/73 (93) 91 08/06/20 08:00 100 08/06/20 07:30 92 T-Piece 12.0 50 08/06/20 04:00 95 08/06/20 04:00 98.3 104 22 114/64 (81) 92 08/06/20 01:10 93 T-Piece 12.0 50 08/06/20 00:00 92 08/06/20 00:00 98.6 98 20 113/60 (77) 92 08/05/20 21:00 Trach Collar 10.0 08/05/20 20:53 103 111/62 08/05/20 20:00 98 08/05/20 20:00 98.3 102 21 112/62 (79) 94 08/05/20 19:16 93 T-Piece 12.0 50 Intake and Output 08/05/20 08/06/20 19:00 07:00 Intake Total 60 ml 1185 ml Output Total 400 ml 300 ml Balance -340 ml 885 ml Intake Free Water 300 ml IV Total 825 ml Tube Feeding 60 ml 60 ml Output Urine Total 400 ml 300 ml # Bowel Movements 100 Objective WDWN NAD awake chronically ill moderate breath sounds bilaterally without rhonchi or wheeze [id number] NABS nontender GT no CCE nonfocal weak wounds noted Laboratory Tests 08/06/20 06:40: White Blood Count 7.9, Red Blood Count 2.75L, Hemoglobin 7.5L, Hematocrit 24.4L, Mean Corpuscular Volume 89, Mean Corpuscular Hemoglobin 27.4, Mean Corpuscular Hemoglobin Concent 30.9L, Red Cell Distribution Width 16.5H, Platelet Count 348, Mean Platelet Volume 6.0L, Neutrophils (%) (Auto) , Lymphocytes (%) (Auto) , Monocytes (%) (Auto) , Eosinophils (%) (Auto) , Basophils (%) (Auto) , Differential Total Cells Counted 100, Neutrophils % (Manual) 74, Lymphocytes % (Manual) 14L, Monocytes % (Manual) 10, Eosinophils % (Manual) 2, Basophils % (Manual) 0, Band Neutrophils 0, Platelet Estimate Adequate, Platelet Morphology Normal, Hypochromasia 1+, Anisocytosis 1+, Sodium Level 142, Potassium Level 4.8, Chloride Level 105, Carbon Dioxide Level 35H, Anion Gap 3L, Blood Urea Nitrogen 38H, Creatinine 1.1, Estimat Glomerular Filtration Rate > 60, Glucose Level 123H, Calcium Level 8.6, Magnesium Level 2.4, Pro-B-Type Natriuretic Peptide 3515H Current Medications Medications (Trade) Dose Ordered Sig/Clive Route PRN Reason Start Time Stop Time Status Last Admin Dose Admin Acetaminophen (Tylenol) 650 mg Q4H PRN GT Temp >100.5 07/18/20 09:30 08/17/20 09:29 08/05/20 13:22 Acetaminophen (Tylenol) 650 mg Q4H PRN RECTAL Temp >100.5 07/14/20 13:30 08/13/20 13:29 Amiodarone HCl (Cordarone) 200 mg DAILY@1800 GT 07/30/20 18:00 10/28/20 17:59 08/05/20 18:20 Ascorbic Acid (Vitamin C) 250 mg TWICE A DAY GT 07/16/20 18:00 08/15/20 17:59 08/06/20 09:56 Atorvastatin Calcium (Lipitor) 10 mg BEDTIME ORAL 08/05/20 21:00 10/22/20 20:59 08/05/20 20:52 Chlorhexidine Gluconate (Jennifer-Hex 2%) 1 applic DAILY@2000 TOPIC 07/17/20 20:00 10/15/20 19:59 08/05/20 20:24 Dextrose 1,000 ml @ 75 mls/hr [id number] IV 08/04/20 11:30 09/03/20 11:29 08/06/20 03:01 Famotidine (Pepcid) 20 mg Q12HR GT 07/16/20 21:00 10/14/20 20:59 08/06/20 09:56 Finasteride (Proscar) 5 mg DAILY ORAL 07/15/20 09:00 10/13/20 08:59 08/06/20 09:56 Hydralazine HCl (Apresoline) 25 mg Q6H PRN GT SBP above 150 07/24/20 23:30 10/22/20 23:29 07/26/20 05:22 Levetiracetam (Keppra) 1,000 mg Q12HR ORAL 07/14/20 21:00 08/13/20 20:59 08/06/20 09:55 Metoprolol Tartrate (Lopressor) 50 mg Q12HR ORAL 07/25/20 22:15 10/23/20 22:14 08/06/20 09:56 Multivitamins (Multivitamins) 1 tab DAILY GT 07/17/20 09:00 08/16/20 08:59 08/06/20 09:56 Sodium Hypochlorite (Dakin's Half Strength) 1 applic DAILY TOPIC 07/16/20 13:00 08/15/20 12:59 08/06/20 10:02 Zinc Sulfate (Zinc Sulfate) 220 mg DAILY GT 07/27/20 09:00 10/25/20 08:59 08/06/20 09:55 Assessment/Plan Assessment/Plan Impression: Healthcare-associated pneumonia Acute respiratory failure with hypoxia Tracheostomy status Pleural effusion, left-recurrent Decubitus ulcers Urinary tract infection Anemia S/p previous Craniotomy, RCA occlusion, [employer]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
--- NOTE | 2020-08-06 17:16 | General Progress Note ---
Subjective ROS Limited/Unobtainable: No Constitutional: Reports: malaise, weakness HEENT: Reports: no symptoms Cardiovascular: Reports: no symptoms Respiratory: Reports: cough, shortness of breath Gastrointestinal/Abdominal: Reports: difficulty swallowing Genitourinary: Reports: no symptoms Neurologic/Psychiatric: Reports: pre-existing deficit Endocrine: Reports: no symptoms Hematologic/Lymphatic: Reports: anemia Allergies: Coded Allergies: No Known Allergies (Unverified , 11/02/19) All Systems: reviewed and negative except above Subjective no changes, stable on trach collar. nonverbal. weak and lethargic. nonverbal. tolerating feeds. labs pending. low grade temps noted. minimal congestion. on hypotonic ivf. covid pcr ordered by pulm + transfusion Objective Last 24 Hour Vital Signs Date Time Temp Pulse Resp B/P (MAP) Pulse Ox O2 Delivery O2 Flow Rate FiO2 08/06/20 13:05 94 T-Piece 12.0 50 08/06/20 12:00 94 08/06/20 12:00 97.5 94 18 124/58 (80) 90 08/06/20 09:56 110 133/73 08/06/20 09:00 Trach Collar 12.0 08/06/20 08:00 97.0 110 20 133/73 (93) 91 08/06/20 08:00 100 08/06/20 07:30 92 T-Piece 12.0 50 08/06/20 04:00 95 08/06/20 04:00 98.3 104 22 114/64 (81) 92 08/06/20 01:10 93 T-Piece 12.0 50 08/06/20 00:00 92 08/06/20 00:00 98.6 98 20 113/60 (77) 92 08/05/20 21:00 Trach Collar 10.0 08/05/20 20:53 103 111/62 08/05/20 20:00 98 08/05/20 20:00 98.3 102 21 112/62 (79) 94 08/05/20 19:16 93 T-Piece 12.0 50 Intake and Output 08/05/20 08/06/20 19:00 07:00 Intake Total 60 ml 1185 ml Output Total 400 ml 300 ml Balance -340 ml 885 ml Intake Free Water 300 ml IV Total 825 ml Tube Feeding 60 ml 60 ml Output Urine Total 400 ml 300 ml # Bowel Movements 100 Laboratory Tests 08/06/20 06:40: White Blood Count 7.9, Red Blood Count 2.75L, Hemoglobin 7.5L, Hematocrit 24.4L, Mean Corpuscular Volume 89, Mean Corpuscular Hemoglobin 27.4, Mean Corpuscular Hemoglobin Concent 30.9L, Red Cell Distribution Width 16.5H, Platelet Count 348, Mean Platelet Volume 6.0L, Neutrophils (%) (Auto) , Lymphocytes (%) (Auto) , Monocytes (%) (Auto) , Eosinophils (%) (Auto) , Basophils (%) (Auto) , Differential Total Cells Counted 100, Neutrophils % (Manual) 74, Lymphocytes % (Manual) 14L, Monocytes % (Manual) 10, Eosinophils % (Manual) 2, Basophils % (Manual) 0, Band Neutrophils 0, Platelet Estimate Adequate, Platelet Morphology Normal, Hypochromasia 1+, Anisocytosis 1+, Sodium Level 142, Potassium Level 4.8, Chloride Level 105, Carbon Dioxide Level 35H, Anion Gap 3L, Blood Urea Nitrogen 38H, Creatinine 1.1, Estimat Glomerular Filtration Rate > 60, Glucose Level 123H, Calcium Level 8.6, Magnesium Level 2.4, Pro-B-Type Natriuretic Peptide 3515H Height (Feet): 5 Height (Inches): 4.00 Weight (Pounds): 171 Objective General Appearance: WD/WN, confused EENT: normal ENT inspection Neck: normal alignment Cardiovascular: normal rate, regular rhythm Respiratory/Chest: rhonchi - bilaterally Abdomen: normal bowel sounds, non tender, soft, no organomegaly Edema: no edema noted Leg (L), no edema noted Leg (R) Neurologic: disoriented, aphasia Skin: normal pigmentation Assessment/Plan Problem List: (1) Anemia ICD Codes: D64.9 - Anemia, unspecified SNOMED: 483375645, 816746585 Qualifiers: Qualified Codes: D64.9 - Anemia, unspecified (2) Pleural effusion, left ICD Codes: J90 - Pleural effusion, not elsewhere classified SNOMED: 03001318, 512798681 (3) Malfunction of gastrostomy tube ICD Codes: K94.23 - Gastrostomy malfunction SNOMED: 545351000 (4) Acute respiratory failure with hypoxia ICD Codes: J96.01 - Acute respiratory failure with hypoxia SNOMED: 21008298, 708668831 (5) HCAP (healthcare-associated pneumonia) ICD Codes: J18.9 - Pneumonia, unspecified organism SNOMED: 691140487, 062827356 Status: stable, progressing Assessment/Plan: monitor off abx monitor for fevers trach care resp rx Continue suctioning as needed Continue tube feeds monitor for fever DVT and stress ulcer prophylaxis Monitor on telemetry for recurrent atrial fibrillation. rate control per cards monitor for bleeding cont hypotonic ivf monitor lytes/sodium level follow up covid pcr dc planning Angel Jaramillo MD Aug 06, 2020 17:16
[2020-08-06] MEDS: Amiodarone 200mg tab GT SCH (18:19)
--- NOTE | 2020-08-06 19:30 | NUR ---
NURSE NOTES: Patient received from Joyce SMALLWOOD. Patient responds to tactile stimuli, opens eye spontaneously. No s/s of pain ano no s/s of distress. PICC line patent and intact running D5 water @ 75cc/hr. On t-piece 12L FiO2 50% saturating at 90-91%. [place] catheter patent and draining well to gravity. Rectal tube in place and draining well. Noted for skin issues. Bed in lowest position and locked. Bed alarm on. Side rails padded.
--- NOTE | 2020-08-06 19:35 | NUR ---
NURSE HAND-OFF REPORT: Important Events on Shift: S/P 1 unit PRBC for low H&H, wound dressing changed Patient Status: Guarded Diet: GT feeding Pending Orders: N Pending Results/Labs:N Pending notification:N Latest Vital Signs: Temperature 97.9 , Pulse 108 , B/P 129 /62 , Respiratory Rate 18 , O2 SAT 90 , Trach Collar, O2 Flow Rate 12.0 . Vital Sign Comment: EKG Rhythm: Sinus Rhythm Rhythm change?: N MD Notified?: N -Dr. Aubree VALDEZ Response: Message left await call Latest Ramirez Fall Score: 50 Fall Risk: High Risk Safety Measures: Call light Within Reach, Bed Alarm Zone 1, Side Rails Side Rails x2, Bed position Low and Locked. Fall Precautions: Yellow Socks Yellow Gown Report given to Eloy SMALLWOOD.
[2020-08-06 20:00] VITALS: BP 104/54
--- NOTE | 2020-08-06 20:40 | General Progress Note ---
Subjective Cardiovascular: Denies: irregular heart rate Allergies: Coded Allergies: No Known Allergies (Unverified , 11/02/19) Subjective Above noted non communicative stools brown, rectal tube tolerating TF In isolation now Objective Last 24 Hour Vital Signs Date Time Temp Pulse Resp B/P (MAP) Pulse Ox O2 Delivery O2 Flow Rate FiO2 08/06/20 19:46 94 T-Piece 12.0 50 08/06/20 16:00 108 08/06/20 16:00 97.9 110 18 129/62 (84) 90 08/06/20 13:05 94 T-Piece 12.0 50 08/06/20 12:00 94 08/06/20 12:00 97.5 94 18 124/58 (80) 90 08/06/20 09:56 110 133/73 08/06/20 09:00 Trach Collar 12.0 08/06/20 08:00 97.0 110 20 133/73 (93) 91 08/06/20 08:00 100 08/06/20 07:30 92 T-Piece 12.0 50 08/06/20 04:00 95 08/06/20 04:00 98.3 104 22 114/64 (81) 92 08/06/20 01:10 93 T-Piece 12.0 50 08/06/20 00:00 92 08/06/20 00:00 98.6 98 20 113/60 (77) 92 08/05/20 21:00 Trach Collar 10.0 08/05/20 20:53 103 111/62 Intake and Output 08/05/20 08/06/20 19:00 07:00 Intake Total 60 ml 1185 ml Output Total 400 ml 300 ml Balance -340 ml 885 ml Intake Free Water 300 ml IV Total 825 ml Tube Feeding 60 ml 60 ml Output Urine Total 400 ml 300 ml # Bowel Movements 100 Laboratory Tests 08/06/20 06:40: White Blood Count 7.9, Red Blood Count 2.75L, Hemoglobin 7.5L, Hematocrit 24.4L, Mean Corpuscular Volume 89, Mean Corpuscular Hemoglobin 27.4, Mean Corpuscular Hemoglobin Concent 30.9L, Red Cell Distribution Width 16.5H, Platelet Count 348, Mean Platelet Volume 6.0L, Neutrophils (%) (Auto) , Lymphocytes (%) (Auto) , Monocytes (%) (Auto) , Eosinophils (%) (Auto) , Basophils (%) (Auto) , Differential Total Cells Counted 100, Neutrophils % (Manual) 74, Lymphocytes % (Manual) 14L, Monocytes % (Manual) 10, Eosinophils % (Manual) 2, Basophils % (Manual) 0, Band Neutrophils 0, Platelet Estimate Adequate, Platelet Morphology Normal, Hypochromasia 1+, Anisocytosis 1+, Sodium Level 142, Potassium Level 4.8, Chloride Level 105, Carbon Dioxide Level 35H, Anion Gap 3L, Blood Urea Nitrogen 38H, Creatinine 1.1, Estimat Glomerular Filtration Rate > 60, Glucose Level 123H, Calcium Level 8.6, Magnesium Level 2.4, Pro-B-Type Natriuretic Peptide 3515H Height (Feet): 5 Height (Inches): 4.00 Weight (Pounds): 171 Objective Eldely WM NCAT (+) trach , T tube Coarse BS RRR abd soft (+) GT ext no edema Assessment/Plan Status: stable, progressing Assessment/Plan: Assessment - UGIB - resolved - Anemia, s/p transfusion - h/o PUD - resp failure, s/p trach - dysphagia, s/p PEG - atrial fibrillation - h/o DVT - hypernatremia Recommendations - anticoagulation - H2B BID indefinitely - TF -- increase free water - follow H&H Akiko Rai MD Aug 06, 2020 20:40
[2020-08-06] MEDS: Dyna-Hex 2% Top Sol 2oz TOPIC SCH (20:55)
[2020-08-06] MEDS: Atorvastatin 20mg tab ORAL SCH (20:56)
--- NOTE | 2020-08-06 21:55 | Neurology Progress Note ---
Interim History Interim History ROS Limited/Unobtainable: No Interim History no seizures, remains somnolent Objective Physical Exam Last Vital Signs Date Time Temp Pulse Resp B/P (MAP) Pulse Ox O2 Delivery O2 Flow Rate FiO2 08/06/20 20:56 101 104/54 08/06/20 19:46 94 T-Piece 12.0 50 08/06/20 16:00 97.9 18 Laboratory Tests Test 08/06/20 06:40 White Blood Count 7.9 K/UL (4.8-10.8) Red Blood Count 2.75 M/UL (4.70-6.10) L Hemoglobin 7.5 G/DL (14.2-18.0) L Hematocrit 24.4 % (42.0-52.0) L Mean Corpuscular Volume 89 FL (80-99) Mean Corpuscular Hemoglobin 27.4 PG (27.0-31.0) Mean Corpuscular Hemoglobin Concent 30.9 G/DL (32.0-36.0) L Red Cell Distribution Width 16.5 % (11.6-14.8) H Platelet Count 348 K/UL (150-450) Mean Platelet Volume 6.0 FL (6.5-10.1) L Neutrophils (%) (Auto) % (45.0-75.0) Lymphocytes (%) (Auto) % (20.0-45.0) Monocytes (%) (Auto) % (1.0-10.0) Eosinophils (%) (Auto) % (0.0-3.0) Basophils (%) (Auto) % (0.0-2.0) Differential Total Cells Counted 100 Neutrophils % (Manual) 74 % (45-75) Lymphocytes % (Manual) 14 % (20-45) L Monocytes % (Manual) 10 % (1-10) Eosinophils % (Manual) 2 % (0-3) Basophils % (Manual) 0 % (0-2) Band Neutrophils 0 % (0-8) Platelet Estimate Adequate Platelet Morphology Normal Hypochromasia 1+ Anisocytosis 1+ Sodium Level 142 MMOL/L (136-145) Potassium Level 4.8 MMOL/L (3.5-5.1) Chloride Level 105 MMOL/L (98-107) Carbon Dioxide Level 35 MMOL/L (21-32) H Anion Gap 3 mmol/L (5-15) L Blood Urea Nitrogen 38 mg/dL (7-18) H Creatinine 1.1 MG/DL (0.55-1.30) Estimat Glomerular Filtration Rate > 60 mL/min (>60) Glucose Level 123 MG/DL (74-106) H Calcium Level 8.6 MG/DL (8.5-10.1) Magnesium Level 2.4 MG/DL (1.8-2.4) Pro-B-Type Natriuretic Peptide 3515 pg/mL (0-125) H Head: normocophalic Neck: no rigidity EENT: benign Neurologic Exam Objective lethargic, pupils reactive not following withdraws to pain Impression/Recommendations Problems: (1) Malfunction of gastrostomy tube (2) Anemia (3) Pleural effusion, left (4) Acute respiratory failure with hypoxia (5) HCAP (healthcare-associated pneumonia) (6) UTI (urinary tract infection) Status: stable, progressing Diagnostic Impression Recurrent sepsis Possible aspiration Encephalopathy, acute on chronic rule out seizures map > 65 ro covid cont atb fu cultures no need for AED now Gerson Singh MD Aug 06, 2020 21:55
[2020-08-07] VITALS: BP 99/57
--- NOTE | 2020-08-07 01:57 | Cardiology Progress Note ---
Subjective DATE OF SERVICE: Aug 06, 2019 Withdrawn but alert with spontaneous eye movements. BP parameters stabilized. Monitor: Sinus arrhythmia with PAC's; paroxysms of AFib/flutter persist. Na levels have normalized; BNP now above 3000. Objective Last 24 Hour Vital Signs Date Time Temp Pulse Resp B/P (MAP) Pulse Ox O2 Delivery O2 Flow Rate FiO2 08/07/20 00:00 98.5 91 22 99/57 (71) 94 08/07/20 00:00 95 08/06/20 21:00 Trach Collar 12.0 08/06/20 20:56 101 104/54 08/06/20 20:00 98.9 101 24 104/54 (71) 97 08/06/20 20:00 99 08/06/20 19:46 94 T-Piece 12.0 50 08/06/20 16:00 108 08/06/20 16:00 97.9 110 18 129/62 (84) 90 08/06/20 13:05 94 T-Piece 12.0 50 08/06/20 12:00 94 08/06/20 12:00 97.5 94 18 124/58 (80) 90 08/06/20 09:56 110 133/73 08/06/20 09:00 Trach Collar 12.0 08/06/20 08:00 97.0 110 20 133/73 (93) 91 08/06/20 08:00 100 08/06/20 07:30 92 T-Piece 12.0 50 08/06/20 04:00 95 08/06/20 04:00 98.3 104 22 114/64 (81) 92 ROS: unchanged from 07/14/20 HEENT: Thick Trach secretions RHYTHM: NSR, ST, PACs, Afib LUNGS: bilateral rhonchi, other - decreased BS left base CARDIAC: normal S1 and S2, rapid rate, arrhythmia ABDOMEN: normal bowel sounds, soft, G-Tube intact EXTREMITIES: normal range of motion, non-tender, trace edema, other - withdrawn Laboratory Tests Test 08/06/20 06:40 White Blood Count 7.9 K/UL (4.8-10.8) Red Blood Count 2.75 M/UL (4.70-6.10) L Hemoglobin 7.5 G/DL (14.2-18.0) L Hematocrit 24.4 % (42.0-52.0) L Mean Corpuscular Volume 89 FL (80-99) Mean Corpuscular Hemoglobin 27.4 PG (27.0-31.0) Mean Corpuscular Hemoglobin Concent 30.9 G/DL (32.0-36.0) L Red Cell Distribution Width 16.5 % (11.6-14.8) H Platelet Count 348 K/UL (150-450) Mean Platelet Volume 6.0 FL (6.5-10.1) L Neutrophils (%) (Auto) % (45.0-75.0) Lymphocytes (%) (Auto) % (20.0-45.0) Monocytes (%) (Auto) % (1.0-10.0) Eosinophils (%) (Auto) % (0.0-3.0) Basophils (%) (Auto) % (0.0-2.0) Differential Total Cells Counted 100 Neutrophils % (Manual) 74 % (45-75) Lymphocytes % (Manual) 14 % (20-45) L Monocytes % (Manual) 10 % (1-10) Eosinophils % (Manual) 2 % (0-3) Basophils % (Manual) 0 % (0-2) Band Neutrophils 0 % (0-8) Platelet Estimate Adequate Platelet Morphology Normal Hypochromasia 1+ Anisocytosis 1+ Sodium Level 142 MMOL/L (136-145) Potassium Level 4.8 MMOL/L (3.5-5.1) Chloride Level 105 MMOL/L (98-107) Carbon Dioxide Level 35 MMOL/L (21-32) H Anion Gap 3 mmol/L (5-15) L Blood Urea Nitrogen 38 mg/dL (7-18) H Creatinine 1.1 MG/DL (0.55-1.30) Estimat Glomerular Filtration Rate > 60 mL/min (>60) Glucose Level 123 MG/DL (74-106) H Calcium Level 8.6 MG/DL (8.5-10.1) Magnesium Level 2.4 MG/DL (1.8-2.4) Pro-B-Type Natriuretic Peptide 3515 pg/mL (0-125) H Assessment/Plan Assessment/Plan Healthcare associated PNA Paroxysmal atrial fibrillation/flutter Paroxysmal atrial ectopy 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 Dyslipidemia on high dose statin - now dose adjusted Dehydration/hypernatremia Severe protein-calorie malnutrition Maintain current beta blockade dose. Abx Resp support Cardiac monitoring Continue full anticoagulation Statin dose adjusted Amiodarone at maintenance dose now Free water replacement as needed; off IVF for now. Dylan Mak MD Aug 07, 2020 01:57
[2020-08-07 04:00] VITALS: BP 101/53
--- NOTE | 2020-08-07 04:00 | NUR ---
NURSE NOTES: Wound care done
--- NOTE | 2020-08-07 06:27 | NUR ---
NURSE HAND-OFF REPORT: Important Events on Shift:[none] Patient Status: [A&O 0, FC] Diet: [Glucerna 1.2 @ 60cc/hr flush 100q4] Pending Orders: [] Pending Results/Labs:[] Pending MD notification:[] Latest Vital Signs: Temperature 98.9 , Pulse 99 , B/P 101 /53 , Respiratory Rate 20 , O2 SAT 94 , Trach Collar, O2 Flow Rate 12.0 . Vital Sign Comment: [] EKG Rhythm: Sinus Rhythm Rhythm change?: N Notified?: N -Dr. Aubree VALDEZ Response: Message left await call Latest Ramirez Fall Score: 50 Fall Risk: High Risk Safety Measures: Call light Within Reach, Bed Alarm Zone 1, Side Rails Side Rails x2, Bed position Low and Locked. Fall Precautions: Yellow Socks Yellow Gown Report given to []. Addendum: 08/07/20 at 0702 by Eloy Gerard RN Report given to Joyce
--- NOTE | 2020-08-07 07:22 | NUR ---
NURSE NOTES: Report received from Eloy SMALLWOOD. Patient seen on rounds, GCS 4 (E2, V1, M1), FLACC 0, on trache collar at 12lpm with no signs of acute distress, noted thick, copious whitish secretions. PICC on right upper arm patent and intact with no signs of infiltration. Gtube patent and infusing Glucerna 1.2@ 60ml/hr, no residuals reported, HOB at 45 degrees. [place] cath secured and draining. Rectal tube in place. Nurse reports wound dressings were changed last night, will reassess today. Bed low and locked, siderails up x2 and padded, zone alarms on 1. Will continue with plan of care.
[2020-08-07 08:00] VITALS: BP 125/75
[2020-08-07] MEDS: Zinc Sulfate 220mg GT SCH (08:10)
[2020-08-07] MEDS: Ascorbic Acid 500mg tab GT SCH ×2 (08:10→17:07)
[2020-08-07] MEDS: Metoprolol Tartrate 50mg tab ORAL SCH ×2 (08:21→20:30)
[2020-08-07] MEDS: Dakin's 0.25% (Half Strength) 16oz TOPIC SCH (08:22)
--- NOTE | 2020-08-07 08:33 | General Progress Note ---
Subjective ROS Limited/Unobtainable: No Constitutional: Reports: malaise, weakness HEENT: Reports: no symptoms Cardiovascular: Reports: no symptoms Respiratory: Reports: cough, shortness of breath Gastrointestinal/Abdominal: Reports: no symptoms Genitourinary: Reports: no symptoms Neurologic/Psychiatric: Reports: no symptoms Endocrine: Reports: no symptoms Hematologic/Lymphatic: Reports: no symptoms Allergies: Coded Allergies: No Known Allergies (Unverified , 11/02/19) All Systems: reviewed and negative except above Subjective no events. no real change. thick secretions. on 15 L via t bar. opens eyes but is nonverbal. does not follow commands. s/p 1 unit prbcs. no bleeding. Off AC due to recurrent bleeding from wounds. Objective Last 24 Hour Vital Signs Date Time Temp Pulse Resp B/P (MAP) Pulse Ox O2 Delivery O2 Flow Rate FiO2 08/07/20 08:21 102 112/67 08/07/20 04:00 98.9 99 20 101/53 (69) 94 08/07/20 03:49 99 08/07/20 03:00 95 T-Piece 12.0 50 08/07/20 00:00 98.5 91 22 99/57 (71) 94 08/07/20 00:00 95 08/06/20 21:00 Trach Collar 12.0 08/06/20 20:56 101 104/54 08/06/20 20:00 98.9 101 24 104/54 (71) 97 08/06/20 20:00 99 08/06/20 19:46 94 T-Piece 12.0 50 08/06/20 16:00 108 08/06/20 16:00 97.9 110 18 129/62 (84) 90 08/06/20 13:05 94 T-Piece 12.0 50 08/06/20 12:00 94 08/06/20 12:00 97.5 94 18 124/58 (80) 90 08/06/20 09:56 110 133/73 08/06/20 09:00 Trach Collar 12.0 Intake and Output 08/06/20 08/07/20 19:00 07:00 Intake Total 360 ml Output Total 1200 ml 1000 ml Balance -1200 ml -640 ml Intake Free Water 300 ml Tube Feeding 60 ml Output Urine Total 1200 ml 1000 ml Height (Feet): 5 Height (Inches): 4.00 Weight (Pounds): 171 Objective General Appearance: WD/WN, confused EENT: normal ENT inspection Neck: normal alignment Cardiovascular: normal rate, regular rhythm Respiratory/Chest: rhonchi - bilaterally Abdomen: normal bowel sounds, non tender, soft, no organomegaly Edema: no edema noted Leg (L), no edema noted Leg (R) Neurologic: disoriented, aphasia Skin: normal pigmentation Assessment/Plan Problem List: (1) Anemia ICD Codes: D64.9 - Anemia, unspecified SNOMED: 707577202, 964776018 Qualifiers: Qualified Codes: D50.0 - Iron deficiency anemia secondary to blood loss (chronic) (2) Pleural effusion, left ICD Codes: J90 - Pleural effusion, not elsewhere classified SNOMED: 96812929, 029884474 (3) Malfunction of gastrostomy tube ICD Codes: K94.23 - Gastrostomy malfunction SNOMED: 997155798 (4) Acute respiratory failure with hypoxia ICD Codes: J96.01 - Acute respiratory failure with hypoxia SNOMED: 24149661, 079499050 (5) HCAP (healthcare-associated pneumonia) ICD Codes: J18.9 - Pneumonia, unspecified organism SNOMED: 761394136, 851398271 Status: stable, progressing Assessment/Plan: monitor off abx per id follow covid pcr monitor for fevers trach care resp rx Continue suctioning as needed Continue tube feeds monitor for fever DVT and stress ulcer prophylaxis Monitor on telemetry for recurrent atrial fibrillation. rate control per cards monitor for bleeding. off AC due to bleeding from wounds check labs today ivf as needed dc planning Angel Jaramillo MD Aug 07, 2020 08:33
[2020-08-07 09:47] LABS: BASOPHILS % (AUTO) 0.5 % (0.0-2.0); EOSINOPHILS % (AUTO) 3.7 % (0.0-3.0); HEMATOCRIT 26.6 % (42.0-52.0); HEMOGLOBIN 8.3 G/DL (14.2-18.0); LYMPHOCYTES % (AUTO) 14.3 % (20.0-45.0); MEAN CORPUSCULAR VOLUME 87 FL (80-99); MONOCYTES % (AUTO) 8.2 % (1.0-10.0); NEUTROPHILS % (AUTO) 73.3 % (45.0-75.0); PLATELET COUNT 337 K/UL (150-450); RED BLOOD COUNT 3.05 M/UL (4.70-6.10); RED CELL DISTRIBUTION WIDTH 16.1 % (11.6-14.8); WHITE BLOOD COUNT 9.2 K/UL (4.8-10.8)
--- NOTE | 2020-08-07 09:56 | Pulmonology Progress Note ---
Subjective ROS Limited/Unobtainable: Yes Allergies: Coded Allergies: No Known Allergies (Unverified , 11/02/19) All Systems: reviewed and negative except above Subjective CARE NOTED nonverbal on oxygen no distress trach collar Objective Last 24 Hour Vital Signs Date Time Temp Pulse Resp B/P (MAP) Pulse Ox O2 Delivery O2 Flow Rate FiO2 08/07/20 08:21 102 112/67 08/07/20 04:00 98.9 99 20 101/53 (69) 94 08/07/20 03:49 99 08/07/20 03:00 95 T-Piece 12.0 50 08/07/20 00:00 98.5 91 22 99/57 (71) 94 08/07/20 00:00 95 08/06/20 21:00 Trach Collar 12.0 08/06/20 20:56 101 104/54 08/06/20 20:00 98.9 101 24 104/54 (71) 97 08/06/20 20:00 99 08/06/20 19:46 94 T-Piece 12.0 50 08/06/20 16:00 108 08/06/20 16:00 97.9 110 18 129/62 (84) 90 08/06/20 13:05 94 T-Piece 12.0 50 08/06/20 12:00 94 08/06/20 12:00 97.5 94 18 124/58 (80) 90 08/06/20 09:56 110 133/73 Intake and Output 08/06/20 08/07/20 19:00 07:00 Intake Total 360 ml Output Total 1200 ml 1000 ml Balance -1200 ml -640 ml Intake Free Water 300 ml Tube Feeding 60 ml Output Urine Total 1200 ml 1000 ml Objective WDWN NAD awake chronically ill moderate breath sounds bilaterally without rhonchi or wheeze [id number] NABS nontender GT no CCE nonfocal weak wounds noted Laboratory Tests 08/07/20 09:32: White Blood Count 9.2, Red Blood Count 3.05L, Hemoglobin 8.3L, Hematocrit 26.6L, Mean Corpuscular Volume 87, Mean Corpuscular Hemoglobin 27.2, Mean Corpuscular Hemoglobin Concent 31.1L, Red Cell Distribution Width 16.1H, Platelet Count 337, Mean Platelet Volume 6.1L, Neutrophils (%) (Auto) 73.3, Lymphocytes (%) (Auto) 14.3L, Monocytes (%) (Auto) 8.2, Eosinophils (%) (Auto) 3.7H, Basophils (%) (Auto) 0.5, Sodium Level [Pending], Potassium Level [Pending], Chloride Level [Pending], Carbon Dioxide Level [Pending], Blood Urea Nitrogen [Pending], Creatinine [Pending], Estimat Glomerular Filtration Rate [Pending], Glucose Level [Pending], Calcium Level [Pending], Total Bilirubin [Pending], Aspartate Amino Transf (AST/SGOT) [Pending], Alanine Aminotransferase (ALT/SGPT) [Pending], Alkaline Phosphatase [Pending], Total Protein [Pending], Albumin [Pending], Globulin [Pending] Current Medications Medications (Trade) Dose Ordered Sig/Clive Route PRN Reason Start Time Stop Time Status Last Admin Dose Admin Acetaminophen (Tylenol) 650 mg Q4H PRN GT Temp >100.5 07/18/20 09:30 08/17/20 09:29 08/05/20 13:22 Acetaminophen (Tylenol) 650 mg Q4H PRN RECTAL Temp >100.5 07/14/20 13:30 08/13/20 13:29 Amiodarone HCl (Cordarone) 200 mg DAILY@1800 GT 07/30/20 18:00 10/28/20 17:59 08/06/20 18:19 Ascorbic Acid (Vitamin C) 250 mg TWICE A DAY GT 07/16/20 18:00 08/15/20 17:59 08/07/20 08:10 Atorvastatin Calcium (Lipitor) 10 mg BEDTIME ORAL 08/05/20 21:00 10/22/20 20:59 08/06/20 20:56 Chlorhexidine Gluconate (Jennifer-Hex 2%) 1 applic DAILY@2000 TOPIC 07/17/20 20:00 10/15/20 19:59 08/06/20 20:55 Famotidine (Pepcid) 20 mg Q12HR GT 07/16/20 21:00 10/14/20 20:59 08/07/20 08:09 Finasteride (Proscar) 5 mg DAILY ORAL 07/15/20 09:00 10/13/20 08:59 08/07/20 08:10 Hydralazine HCl (Apresoline) 25 mg Q6H PRN GT SBP above 150 07/24/20 23:30 10/22/20 23:29 07/26/20 05:22 Levetiracetam (Keppra) 1,000 mg Q12HR ORAL 07/14/20 21:00 08/13/20 20:59 08/07/20 08:10 Metoprolol Tartrate (Lopressor) 50 mg Q12HR ORAL 07/25/20 22:15 10/23/20 22:14 08/07/20 08:21 Multivitamins (Multivitamins) 1 tab DAILY GT 07/17/20 09:00 08/16/20 08:59 08/07/20 08:10 Sodium Hypochlorite (Dakin's Half Strength) 1 applic DAILY TOPIC 07/16/20 13:00 08/15/20 12:59 08/07/20 08:22 Zinc Sulfate (Zinc Sulfate) 220 mg DAILY GT 07/27/20 09:00 10/25/20 08:59 08/07/20 08:10 Assessment/Plan Assessment/Plan Impression: Healthcare-associated pneumonia Acute respiratory failure with hypoxia Tracheostomy status Pleural effusion, left-recurrent Decubitus ulcers Urinary tract infection Anemia S/p previous Craniotomy, RCA occlusion, [employer]IL[employer]ER shunt Seizure history GERD, dysphagia s/p GJ tube h/o Hypertension h/o Atrial fibrillation Previous DVT and Pulmonary Embolism, hypernatremia Plan events reviewed monitor HH for change J tube feeds O2 - taper; as able still on 50% nebs as needed Wound care 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
[2020-08-07 10:08] LABS: ALANINE AMINOTRANSFERASE 29 U/L (12-78); ALBUMIN/GLOBULIN RATIO 0.2 (1.0-2.7); ALKALINE PHOSPHATASE 121 U/L (46-116); ANION GAP 2 mmol/L (5-15); ASPARTATE AMINO TRANSFERASE 24 U/L (15-37); BILIRUBIN,TOTAL 0.3 MG/DL (0.2-1.0); BLOOD UREA NITROGEN 36 mg/dL (7-18); CALCIUM 8.3 MG/DL (8.5-10.1); CARBON DIOXIDE 33 MMOL/L (21-32); CHLORIDE 104 MMOL/L (98-107); CREATININE 1.1 MG/DL (0.55-1.30); POTASSIUM 4.8 MMOL/L (3.5-5.1); SODIUM 139 MMOL/L (136-145)
[2020-08-07 12:00] VITALS: BP 104/61
[2020-08-07 16:00] VITALS: BP 105/61
--- NOTE | 2020-08-07 16:00 | NUR ---
NURSE NOTES:WOUND CARE FOLLOW-UP NOTES:Pt presented on admission with [employer]ER shunt ,tracheostomy, Gt, Contractures and Multiple Pressure Injuries. L earlobe resolving skin is erythematous but dry. Peristomal Gt site is erythematous and excoriated.Moisture Barrier Paste applied to affected area. Full Thickness Sacral Pressure Injury (L)10cm x (W)7.6cm x (D)1.7cm,undermining clockwise 9-12 by 1.1cm @10 o'clock. Base of wound is 60% fibrinous slough,40%beefy granulation. Bone exposure at base of wound. Detached edges with scattered slough along edges. Small amt serosanguineous exudate noted. Mild odor noted. Non-Blanchable erythema without induration periwound. Full Thickness Pressure Injury L trochanteric(L)5.5cm x (W)6cm, Undermining 7-2 by 3.8cm @12 o'clock. Base of wound is 80% pink and moist,20% loose fibrinous slough. Edges are pink and detached. Small amt serous exudate noted. No odor noted. Non-Blanchable erythema without induration periwound. Full Thickness Pressure Injury L Ischium(L)3cm x (W)1cm. Base of wound is 60% granular, 40% slough. Bone is palpable at base of wound. Edges are adherent to base of wound. Small amt. serous exudate noted. Non-Blanchable erythema without induration/fluctuance periwound. Base of scrotum is pink, moist and denuded. Full thickness Pressure Injury Lateral L Tibia to L lateral malleolus(L)23.2cm x (W)3.5cm. Base of wound is pink proximally, otherwise antonio and moist.Tendon and bone exposure. Moderate amt sanguineous exudate noted. NO odor noted. NO erythema induration or fluctuance periwound. Full thickness Ulcer L Heel and plantar aspect of heel(L) 9.5cm x (W)8cm. Base of wound is 60% necrotic ,40% antonio with scattered slough along borders. Epibole 50% borders,50% flat and adherent to base of wound. Moderate amt sanguineous exudate. Periwound without erythema,induration or fluctuance. Full Thickness Pressure Injury Medial/Lateral L Foot(L)2.5cm x (W)1.4cm. Base of wound is 60% slough,40% granular. Edges are flat and adherent to base of wound. No additional skin breakdown periwound. Unstageable Pressure Injury distal/Lateral L Foot(L) 1.6cm x (W)1.7cm. Stable dry eschar noted. Unstageable Pressure Injury Medial L malleolus(L)1.6cm x (W)1cm.. Base of wound is 100% necrotic but dry. Marginal erythema along borders. Periwound without erythema or induration. Full thickness Ulcer dorso/medial L foot(L)1.5cm x (W)1cm. Base of wound is 100% beefy granulation. Small amt sanguineous exudate. No evidence of further skin breakdown periwound. Full Thickness Pressure Injury R Heel (L)11cm x (W010cm x (D01.2cm. Base of wound is 40% necrotic ,60% beefy granulation. Scattered slough along borders. Epibole 40% borders,60% borders are macerated. Periwound is fluctuant.No odor noted. Small amt serous exudate noted. Unstageable Pressure Injury distal/lateral R foot(L)0.6cm x (W)0.6cm. Stable dry eschar noted. Tx.Plan: Cleanse wounds Sacrum,L trochanter, L ischium with Dakin's 0.25% justina. Loosely pack each wound with Dakin's moist Kerlix.Apply Triad Paste along edges of each wound. Cover each wound with Optifoam drsg Daily and prn. Cleanse wound R heel with Dakin's 0.25% Justina. Loosely pack with Dakin's moistened Kerlix. Apply Triad periwound. Cover with ABD and wrap with Kerlix Daily and prn. Apply Betadine justina to distal/lateral R foot. Cover with Optifoam drsg. Change every 3 days and prn. Cleanse L Heel,L Foot wounds with Dakin's 0.25% justina. Cover with Abd Pads ,Wrap with Kerlix Daily and prn. Apply Cavilon Skin Barrier to R and L earlobes. Cover each ear with Optifoam drsgs. Change every 7 days and prn. Wash GT site with tepid water and soap. Pat dry. Apply Triad to peristomal area Daily and prn. Reposition at least every 2hours or as tolerated. Place Pillow between knees. Off-load heels with Pillow. APM/TERRIE Mattress Overlay.
[2020-08-07] MEDS: Amiodarone 200mg tab GT SCH (17:07)
--- NOTE | 2020-08-07 17:58 | Surgery Progress Note ---
Surgery Progress Note Subjective Additional Comments bleeding from wounds noted will plan new tx dressing plan Objective Last 24 Hour Vital Signs Date Time Temp Pulse Resp B/P (MAP) Pulse Ox O2 Delivery O2 Flow Rate FiO2 08/07/20 16:00 100 08/07/20 16:00 97.9 104 18 105/61 (76) 92 08/07/20 12:00 98.8 98 17 104/61 (75) 95 08/07/20 12:00 98 08/07/20 09:00 Trach Collar 12.0 08/07/20 08:21 102 112/67 08/07/20 08:00 98.9 102 20 125/75 (92) 93 08/07/20 08:00 104 08/07/20 04:00 98.9 99 20 101/53 (69) 94 08/07/20 03:49 99 08/07/20 03:00 95 T-Piece 12.0 50 08/07/20 00:00 98.5 91 22 99/57 (71) 94 08/07/20 00:00 95 08/06/20 21:00 Trach Collar 12.0 08/06/20 20:56 101 104/54 08/06/20 20:00 98.9 101 24 104/54 (71) 97 08/06/20 20:00 99 08/06/20 19:46 94 T-Piece 12.0 50 I&O Intake and Output 08/06/20 08/07/20 19:00 07:00 Intake Total 420 ml Output Total 1200 ml 1000 ml Balance -1200 ml -580 ml Intake Free Water 300 ml Tube Feeding 120 ml Output Urine Total 1200 ml 1000 ml Dressing: saturated Cardiovascular: RSR Respiratory: decreased breath sounds Abdomen: soft, non-tender, present bowel sounds Extremities: edema, no cyanosis, pulses, other Laboratory Tests Test 08/07/20 09:32 White Blood Count 9.2 K/UL (4.8-10.8) Red Blood Count 3.05 M/UL (4.70-6.10) L Hemoglobin 8.3 G/DL (14.2-18.0) L Hematocrit 26.6 % (42.0-52.0) L Mean Corpuscular Volume 87 FL (80-99) Mean Corpuscular Hemoglobin 27.2 PG (27.0-31.0) Mean Corpuscular Hemoglobin Concent 31.1 G/DL (32.0-36.0) L Red Cell Distribution Width 16.1 % (11.6-14.8) H Platelet Count 337 K/UL (150-450) Mean Platelet Volume 6.1 FL (6.5-10.1) L Neutrophils (%) (Auto) 73.3 % (45.0-75.0) Lymphocytes (%) (Auto) 14.3 % (20.0-45.0) L Monocytes (%) (Auto) 8.2 % (1.0-10.0) Eosinophils (%) (Auto) 3.7 % (0.0-3.0) H Basophils (%) (Auto) 0.5 % (0.0-2.0) Sodium Level 139 MMOL/L (136-145) Potassium Level 4.8 MMOL/L (3.5-5.1) Chloride Level 104 MMOL/L (98-107) Carbon Dioxide Level 33 MMOL/L (21-32) H Anion Gap 2 mmol/L (5-15) L Blood Urea Nitrogen 36 mg/dL (7-18) H Creatinine 1.1 MG/DL (0.55-1.30) Estimat Glomerular Filtration Rate > 60 mL/min (>60) Glucose Level 112 MG/DL (74-106) H Calcium Level 8.3 MG/DL (8.5-10.1) L Total Bilirubin 0.3 MG/DL (0.2-1.0) Aspartate Amino Transf (AST/SGOT) 24 U/L (15-37) Alanine Aminotransferase (ALT/SGPT) 29 U/L (12-78) Alkaline Phosphatase 121 U/L (46-116) H Total Protein 6.9 G/DL (6.4-8.2) Albumin 1.0 G/DL (3.4-5.0) L Globulin 5.9 g/dL Albumin/Globulin Ratio 0.2 (1.0-2.7) L Plan Problems: (1) Decubitus skin ulcer Assessment & Plan: Pt presented on admission with PV shunt,Tracheostomy, Contractures and multiple Pressure Injuries.Skin assessed under tracheal collar. Skin is erythematous but without any open wounds. GT site is red and excoriated.Scattered senile purpuras bilat upper extremities. Full thickness Sacral Pressure Injury(L)11.8cm x (W)8cm. Base of wound is 75% mixed necrosis and slough,20% antonio. Bone is palpable at base. Edges are macerated. Mild odor noted. Small amt brown exudate noted. Periwound is indurated and maroon with additional erythema and scattered Partial thickness shearing. Full Thickness Pressure Injury L trochanteric with undermined borders.(L)5cm x (W)7cm x (D)2.6cm, undermining clockwise 11-2 by 4.2cm @11o'clock. Base of wound is 75%% mixed necrosis and slough,25% antonio. Wound has appearance of two wounds secondary necrotic bridge.In addition, periwound at clockwise 10-2o'clock the base is necrotic and fluctuant with marginal erythema. Small amt malodorous haemopurulent exudate noted. Full thickness Pressure Injury L Ischium(L)3.5cm x (W)2.0cm. Base of wound is 80% slough,20% antonio. Surrounding necrotic borders that are fluctuant.Small amt sanguineous exudate. Mild odor noted. Full thickness Pressure Injury lateral L Tibia to L lateral Malleolus(L)24.5cm x (W)3.5cm. Base of wound is antonio with scattered necrosis and slough, tendon exposure. Semi-detached borders that indurated and macerated with an area of soft necrosis at proximal borders of wound. Small amt haemopurulent exudate noted. No odor noted. Full thickness Pressure Injury L Heel(L)10.3cm x (W)7.5cm. Base of wound is 60% necrotic,10% slough,30% antonio. Bone is palpable. Borders are indurated with a portion of borders rolled giving heel a shaved appearance. Moderate amt haemopurulent exudate. Mild odor noted.Periwound is purpuric and fluctuant. Full thickness Pressure Injury medial/lateral L foot(L)3.5cm x (W)3.5cm x (D)0.3cm. Base of wound is antonio. Borders and periwound are purpuric and fluctuant.Small amt sanguineous exudate noted. Unstageable Pressure Injury Distal/Lateral L foot(L)2.7cm x (W)4.3cm. Base of wound is 80% soft necrosis,20% antonio. Edges are adherent to base of wound. Periwound is purpuric and fluctuant. Full thickness Pressure Injury R heel Plantar(L)8.5cm x (W)9cm. Base of pressure with scattered necrosis and slough,otherwise base of wound is antonio. Edges are macerated with surrounding necrosis. Small amt seropurulent exudate noted.Mild odor noted. Stable dry eschar dorsal R foot1.5cm x (W)1cm. Edges are adherent to base of wound. No erythema,induration or fluctuance periwound. Stable dry eschar distal/lateral R foot (L)0.8cm x (W)0.8cm. NO erythema,induration or fluctuance periwound. R foot is edematous. Tx.Plan: Cleanse Sacral wound with Dakin's Kristel 0.25%. Apply Dakin's moistened kerlix to wound. Apply Triad periwound. Cover with Optifoam drsg. Change Daily and prn. Cleanse L trochanteric Wound with Dakin's Kristel 0.25%. Loosely pack with Dakin's moistened Kerlix, Apply Moisture Barrier Periwound. Cover with Optifoam drsg Daily and prn. Cleanse R Ischial wound with Dakin's Kristel 0.25%. Apply Dakin's moistened gauze to wound. Apply Moisture Barrier Paste periwound. Cover with Optifoam drsg Daily and prn. Cleanse wounds Lateral R lower extremity, R Heel and Lateral R foot with Dakin's Kristel 0.25%. Place Dakin's Moistened gauze to wounds. Apply Triad Paste along edges of wound. Cover wounds with ABD Pads. Wrap with Kerlix from Base of toes. Cleanse wound R heel with Dakin's Kristel 0.25%. Apply Dakin's moistened Gauze to wound. Apply Triad Periwound. Cover with ABD PAd and wrap with Kerlix. Swab dry Eschar dorsal and Lateral aspect of R foot .Cover with Abd Pads and Wrap with Kerlix Daily and prn. Wash GT site with Soap and water. Apply Triad Paste Daily and prn(Leave Open to Air) Reposition at least every 2hours or as tolerated. Place Pillow Between Knees. Off-Load Heels with Pillow. APM/TERRIE Mattress overlay. (2) Anemia Assessment & Plan: trend h/h prbc prn (3) UTI (urinary tract infection) (4) Pleural effusion, left Assessment & Plan: Lungs: Hazy left lung attenuation could be due to consolidation, pulmonary edema; correlate with presentation. Retrocardiac atelectasis without or with consolidation. Pleural space: Small-moderate left pleural effusion with passive atelectasis. No pneumothorax. Heart: Unremarkable. No cardiomegaly. Mediastinum: Unremarkable. Bones/joints: No acute abnormality Tubes, lines and devices: Tracheostomy. Right upper extremity PICC tip in the mid SVC. IMPRESSION: 1. Tracheostomy. 2. Right upper extremity PICC tip in the mid SVC. 3. Small-moderate left pleural effusion with passive atelectasis. 4. Hazy left lung attenuation could be due to consolidation, pulmonary edema; correlate with presentation. 5. Retrocardiac atelectasis without or with consolidation. 6. Recommend CT chest with IV contrast to further characterize these findings. (5) Malfunction of gastrostomy tube Assessment & Plan: DAILY ESTIMATED NEEDS: Needs based on Wounds, pulmonary/ 74.5kg 25-30 kcals/kg 7799-2794 total kcals 1.5-2 g protein/kg 111-149 g total protein 25-30 mL/kg 8990-9834 total fluid mLs NUTRITION DIAGNOSIS: * Swallowing difficulty R/T dysphagia, h/o craniotomy, respiratory failure as evidenced by pt on T-collar, GJ tube dependent. * Increased kcal/prot/micronutrients needs R/T wound healing as evidenced by pt admitted w/ multiple advanced wounds including full thickness wound x 7 and unstageable wounds x 2, refer to WC eval. CURRENT TF:Jevity 1.2 @ 60ml/hr x 24 hrs-> now Glucerna 1.2 ENTERAL NUTRITION RECOMMENDATIONS: Glucerna 1.2 @ 65ml/hr x 24 hrs + Prosource 1pkt TID to provide 1560ml, 1872kcal, 94g+ 33g prot, 1259ml free water * Increase goal rate to 65ml/hr x 24 hrs to better meet est needs * Add Prosource 1pkt TID to meet increased protein needs * HOB over 30 degrees/ water flush 150ml q 6hrs without IVF ADDITIONAL RECOMMENDATIONS: * Calibrated bedscale wt * Wound Care: Con't Vit C 500mg BID, ZnSO4 220mg QD x 10 days add Stevie BID * Monitor BGs, need for carb controlled TF -> now on Glucerna 1.2 * Monitor lytes, replete as needed (6) Acute respiratory failure with hypoxia (7) HCAP (healthcare-associated pneumonia) Deny Westfall Aug 07, 2020 17:58
--- NOTE | 2020-08-07 19:09 | NUR ---
NURSE HAND-OFF REPORT: Important Events on Shift: Assisted wound care team with dressing changes; rectal tube irrigated, pt suctioned, repeat CBC done and results relayed to Dr. Devlin with no new orders Patient Status: Full code Diet: GT feeding Pending Orders: N Pending Results/Labs: N Pending notification: N Latest Vital Signs: Temperature 97.9 , Pulse 100 , B/P 105 /61 , Respiratory Rate 18 , O2 SAT 92 , Trach Collar, O2 Flow Rate 12.0 . Vital Sign Comment: EKG Rhythm: Sinus Rhythm Rhythm change?: N Notified?: N -Dr. Aubree VALDEZ Response: Message left await call Latest Ramirez Fall Score: 50 Fall Risk: High Risk Safety Measures: Call light Within Reach, Bed Alarm Zone 1, Side Rails Side Rails x2, Bed position Low and Locked. Fall Precautions: Yellow Socks Yellow Gown Report given to Eloy SMALLWOOD.
[2020-08-07 20:00] VITALS: BP 114/68
[2020-08-07] MEDS: Atorvastatin 20mg tab ORAL SCH (20:30)
[2020-08-07] MEDS: Dyna-Hex 2% Top Sol 2oz TOPIC SCH (20:31)
--- NOTE | 2020-08-07 22:27 | Neurology Progress Note ---
Interim History Interim History ROS Limited/Unobtainable: Yes Interim History no new deficits Objective Physical Exam Last Vital Signs Date Time Temp Pulse Resp B/P (MAP) Pulse Ox O2 Delivery O2 Flow Rate FiO2 08/07/20 21:00 Trach Collar 12.0 08/07/20 20:30 108 114/68 08/07/20 20:05 94 50 08/07/20 20:00 98.3 28 Laboratory Tests Test 08/07/20 09:32 White Blood Count 9.2 K/UL (4.8-10.8) Red Blood Count 3.05 M/UL (4.70-6.10) L Hemoglobin 8.3 G/DL (14.2-18.0) L Hematocrit 26.6 % (42.0-52.0) L Mean Corpuscular Volume 87 FL (80-99) Mean Corpuscular Hemoglobin 27.2 PG (27.0-31.0) Mean Corpuscular Hemoglobin Concent 31.1 G/DL (32.0-36.0) L Red Cell Distribution Width 16.1 % (11.6-14.8) H Platelet Count 337 K/UL (150-450) Mean Platelet Volume 6.1 FL (6.5-10.1) L Neutrophils (%) (Auto) 73.3 % (45.0-75.0) Lymphocytes (%) (Auto) 14.3 % (20.0-45.0) L Monocytes (%) (Auto) 8.2 % (1.0-10.0) Eosinophils (%) (Auto) 3.7 % (0.0-3.0) H Basophils (%) (Auto) 0.5 % (0.0-2.0) Sodium Level 139 MMOL/L (136-145) Potassium Level 4.8 MMOL/L (3.5-5.1) Chloride Level 104 MMOL/L (98-107) Carbon Dioxide Level 33 MMOL/L (21-32) H Anion Gap 2 mmol/L (5-15) L Blood Urea Nitrogen 36 mg/dL (7-18) H Creatinine 1.1 MG/DL (0.55-1.30) Estimat Glomerular Filtration Rate > 60 mL/min (>60) Glucose Level 112 MG/DL (74-106) H Calcium Level 8.3 MG/DL (8.5-10.1) L Total Bilirubin 0.3 MG/DL (0.2-1.0) Aspartate Amino Transf (AST/SGOT) 24 U/L (15-37) Alanine Aminotransferase (ALT/SGPT) 29 U/L (12-78) Alkaline Phosphatase 121 U/L (46-116) H Total Protein 6.9 G/DL (6.4-8.2) Albumin 1.0 G/DL (3.4-5.0) L Globulin 5.9 g/dL Albumin/Globulin Ratio 0.2 (1.0-2.7) L Head: normocophalic Neck: no rigidity EENT: benign Neurologic Exam Objective lethargic, pupils reactive not following withdraws to pain Impression/Recommendations Problems: (1) Malfunction of gastrostomy tube (2) Anemia (3) Pleural effusion, left (4) Acute respiratory failure with hypoxia (5) HCAP (healthcare-associated pneumonia) (6) UTI (urinary tract infection) Status: stable, progressing Diagnostic Impression Recurrent sepsis Possible aspiration Encephalopathy, acute on chronic rule out seizures map > 65 ro covid cont atb fu cultures no need for AED now Gerson Singh MD Aug 07, 2020 22:27
--- NOTE | 2020-08-07 23:01 | NUR ---
NURSE NOTES: Patient received from Joyce. Patient responds to tactile stimuli, opens eye spontaneously but does not track. On T-piece at 12L with Fio2 @ 50% saturation WNL. No s/s of pain and or distress. Gtube patent and intact running Glucerna 1.2 @ 60cc with flushing of 100cc q4. Skin issues noted on sacrum, trochanter, Both lower extremities, and both foot. PICC Line Single lumen on the right upper arm patent and intact SL. Bed in lowest position and locked. P200 mattress in place. Addendum: 08/07/20 at 2301 by Eloy Gerard RN Wrong time 1929
--- NOTE | 2020-08-07 23:05 | General Progress Note ---
Subjective Allergies: Coded Allergies: No Known Allergies (Unverified , 11/02/19) Subjective Above noted non communicative stools brown, rectal tube tolerating TF Objective Last 24 Hour Vital Signs Date Time Temp Pulse Resp B/P (MAP) Pulse Ox O2 Delivery O2 Flow Rate FiO2 08/07/20 21:00 Trach Collar 12.0 08/07/20 20:30 108 114/68 08/07/20 20:05 94 T-Piece 12.0 50 08/07/20 20:00 103 08/07/20 20:00 98.3 103 28 114/68 (83) 90 08/07/20 16:00 100 08/07/20 16:00 97.9 104 18 105/61 (76) 92 08/07/20 12:00 98.8 98 17 104/61 (75) 95 08/07/20 12:00 98 08/07/20 09:00 Trach Collar 12.0 08/07/20 08:21 102 112/67 08/07/20 08:00 98.9 102 20 125/75 (92) 93 08/07/20 08:00 104 08/07/20 04:00 98.9 99 20 101/53 (69) 94 08/07/20 03:49 99 08/07/20 03:00 95 T-Piece 12.0 50 08/07/20 00:00 98.5 91 22 99/57 (71) 94 08/07/20 00:00 95 Intake and Output 08/06/20 08/07/20 19:00 07:00 Intake Total 420 ml Output Total 1200 ml 1000 ml Balance -1200 ml -580 ml Intake Free Water 300 ml Tube Feeding 120 ml Output Urine Total 1200 ml 1000 ml Laboratory Tests 08/07/20 09:32: White Blood Count 9.2, Red Blood Count 3.05L, Hemoglobin 8.3L, Hematocrit 26.6L, Mean Corpuscular Volume 87, Mean Corpuscular Hemoglobin 27.2, Mean Corpuscular Hemoglobin Concent 31.1L, Red Cell Distribution Width 16.1H, Platelet Count 337, Mean Platelet Volume 6.1L, Neutrophils (%) (Auto) 73.3, Lymphocytes (%) (Auto) 14.3L, Monocytes (%) (Auto) 8.2, Eosinophils (%) (Auto) 3.7H, Basophils (%) (Auto) 0.5, Sodium Level 139, Potassium Level 4.8, Chloride Level 104, Carbon Dioxide Level 33H, Anion Gap 2L, Blood Urea Nitrogen 36H, Creatinine 1.1, Estimat Glomerular Filtration Rate > 60, Glucose Level 112H, Calcium Level 8.3L, Total Bilirubin 0.3, Aspartate Amino Transf (AST/SGOT) 24, Alanine Aminotransferase (ALT/SGPT) 29, Alkaline Phosphatase 121H, Total Protein 6.9, Albumin 1.0L, Globulin 5.9, Albumin/Globulin Ratio 0.2L Height (Feet): 5 Height (Inches): 4.00 Weight (Pounds): 171 Objective Eldely WM NCAT (+) trach , T tube Coarse BS RRR abd soft (+) GT ext no edema Assessment/Plan Status: stable, progressing Assessment/Plan: Assessment - UGIB - resolved - Anemia, s/p transfusion - h/o PUD - resp failure, s/p trach - dysphagia, s/p PEG - atrial fibrillation - h/o DVT - hypernatremia Recommendations - anticoagulation - H2B BID indefinitely - TF - free water - follow H&H Akiko Rai MD Aug 07, 2020 23:05
[2020-08-08] VITALS: BP 100/58
--- NOTE | 2020-08-08 02:22 | Cardiology Progress Note ---
Subjective DATE OF SERVICE: Aug 07, 2020 Withdrawn and not following commands. BP parameters stabilized. Monitor: Sinus arrhythmia with PAC's; paroxysms of AFib/flutter persist. Off anticoagulation due to bleeding from wounds; s/p PPRBC tx. Objective Last 24 Hour Vital Signs Date Time Temp Pulse Resp B/P (MAP) Pulse Ox O2 Delivery O2 Flow Rate FiO2 08/08/20 00:00 87 08/08/20 00:00 98.9 89 28 100/58 (72) 94 08/07/20 21:00 Trach Collar 12.0 08/07/20 20:30 108 114/68 08/07/20 20:05 94 T-Piece 12.0 50 08/07/20 20:00 103 08/07/20 20:00 98.3 103 28 114/68 (83) 90 08/07/20 16:00 100 08/07/20 16:00 97.9 104 18 105/61 (76) 92 08/07/20 12:00 98.8 98 17 104/61 (75) 95 08/07/20 12:00 98 08/07/20 09:00 Trach Collar 12.0 08/07/20 08:21 102 112/67 08/07/20 08:00 98.9 102 20 125/75 (92) 93 08/07/20 08:00 104 08/07/20 04:00 98.9 99 20 101/53 (69) 94 08/07/20 03:49 99 08/07/20 03:00 95 T-Piece 12.0 50 ROS: unchanged from 07/14/20 HEENT: Thick Trach secretions RHYTHM: NSR, ST, PACs, Afib LUNGS: bilateral rhonchi, other - decreased BS left base CARDIAC: normal S1 and S2, rapid rate, arrhythmia ABDOMEN: normal bowel sounds, soft, G-Tube intact EXTREMITIES: normal range of motion, non-tender, trace edema, other - withdrawn Laboratory Tests Test 08/07/20 09:32 White Blood Count 9.2 K/UL (4.8-10.8) Red Blood Count 3.05 M/UL (4.70-6.10) L Hemoglobin 8.3 G/DL (14.2-18.0) L Hematocrit 26.6 % (42.0-52.0) L Mean Corpuscular Volume 87 FL (80-99) Mean Corpuscular Hemoglobin 27.2 PG (27.0-31.0) Mean Corpuscular Hemoglobin Concent 31.1 G/DL (32.0-36.0) L Red Cell Distribution Width 16.1 % (11.6-14.8) H Platelet Count 337 K/UL (150-450) Mean Platelet Volume 6.1 FL (6.5-10.1) L Neutrophils (%) (Auto) 73.3 % (45.0-75.0) Lymphocytes (%) (Auto) 14.3 % (20.0-45.0) L Monocytes (%) (Auto) 8.2 % (1.0-10.0) Eosinophils (%) (Auto) 3.7 % (0.0-3.0) H Basophils (%) (Auto) 0.5 % (0.0-2.0) Sodium Level 139 MMOL/L (136-145) Potassium Level 4.8 MMOL/L (3.5-5.1) Chloride Level 104 MMOL/L (98-107) Carbon Dioxide Level 33 MMOL/L (21-32) H Anion Gap 2 mmol/L (5-15) L Blood Urea Nitrogen 36 mg/dL (7-18) H Creatinine 1.1 MG/DL (0.55-1.30) Estimat Glomerular Filtration Rate > 60 mL/min (>60) Glucose Level 112 MG/DL (74-106) H Calcium Level 8.3 MG/DL (8.5-10.1) L Total Bilirubin 0.3 MG/DL (0.2-1.0) Aspartate Amino Transf (AST/SGOT) 24 U/L (15-37) Alanine Aminotransferase (ALT/SGPT) 29 U/L (12-78) Alkaline Phosphatase 121 U/L (46-116) H Total Protein 6.9 G/DL (6.4-8.2) Albumin 1.0 G/DL (3.4-5.0) L Globulin 5.9 g/dL Albumin/Globulin Ratio 0.2 (1.0-2.7) L Assessment/Plan Assessment/Plan Healthcare associated PNA Paroxysmal atrial fibrillation/flutter Paroxysmal atrial ectopy Hx ICB with craniotomy and TRA[employer]EL [employer]ENT shunt Ac/chronic encephalopathy Seizure disorder Troponin leak; no signs of acute [place] Trach status Dysphagia with GJ-Tube 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 Dyslipidemia on high dose statin - now dose adjusted Dehydration/hypernatremia Severe protein-calorie malnutrition Multiple wounds Anemia - s/p tx Maintain current beta blockade dose. Abx Resp support Cardiac monitoring Statin dose adjusted Amiodarone at maintenance dose now Free water replacement as needed; off IVF for now. Dylan Mak MD Aug 08, 2020 02:22
[2020-08-08 04:00] VITALS: BP 97/54
--- NOTE | 2020-08-08 07:00 | NUR ---
NURSE HAND-OFF REPORT: Important Events on Shift: maintain spo2 93-95%. Sore dressing change as ordered. Patient Status: [stable] Diet: [G-tube feeding-Glucerna 1.2 60ml/hr] Pending Orders: [] Pending Results/Labs:[] Pending MD notification:[] Latest Vital Signs: Temperature 97.6 , Pulse 106 , B/P 97 /54 , Respiratory Rate 24 , O2 SAT 94 , Trach Collar, O2 Flow Rate 12.0 . Vital Sign Comment: [] EKG Rhythm: Sinus Tachycardia Rhythm change?: N MD Notified?: N -Dr. Aubree VALDEZ Response: Message left await call Latest Ramirez Fall Score: 50 Fall Risk: High Risk Safety Measures: Call light Within Reach, Bed Alarm Zone 1, Side Rails Side Rails x2, Bed position Low and Locked. Fall Precautions: Yellow Socks Yellow Gown Report given to SELIN Nolen.
--- NOTE | 2020-08-08 07:27 | NUR ---
NURSE NOTES: Report received from Eloy SMALLWOOD. Patient seen on rounds, GCS 4 (E2, V1, M1), FLACC 0, on trache collar at 12lpm with no signs of acute distress, noted thick, copious whitish secretions. Sats fluctuate between 92-96%. PICC on right upper arm patent and intact with no signs of infiltration. Gtube patent and infusing Glucerna 1.2@ 60ml/hr, no residuals reported, HOB at 45 degrees. [place] cath secured and draining. Rectal tube in place. Nurse reports wound dressings were changed last night, will reassess today. Bed low and locked, siderails up x2 and padded, zone alarms on 1. Will continue with plan of care.
[2020-08-08 08:00] VITALS: BP 116/66
--- NOTE | 2020-08-08 08:29 | Pulmonology Progress Note ---
Subjective ROS Limited/Unobtainable: Yes Allergies: Coded Allergies: No Known Allergies (Unverified , 11/02/19) All Systems: reviewed and negative except above Subjective CARE NOTED nonverbal on oxygen no distress trach collar Objective Last 24 Hour Vital Signs Date Time Temp Pulse Resp B/P (MAP) Pulse Ox O2 Delivery O2 Flow Rate FiO2 08/08/20 04:00 97.6 106 24 97/54 (68) 94 08/08/20 04:00 106 08/08/20 01:15 95 T-Piece 12.0 50 08/08/20 00:00 87 08/08/20 00:00 98.9 89 28 100/58 (72) 94 08/07/20 21:00 Trach Collar 12.0 08/07/20 20:30 108 114/68 08/07/20 20:05 94 T-Piece 12.0 50 08/07/20 20:00 103 08/07/20 20:00 98.3 103 28 114/68 (83) 90 08/07/20 16:00 100 08/07/20 16:00 97.9 104 18 105/61 (76) 92 08/07/20 12:00 98.8 98 17 104/61 (75) 95 08/07/20 12:00 98 08/07/20 09:00 Trach Collar 12.0 Intake and Output 08/07/20 08/08/20 19:00 07:00 Intake Total 860 ml Output Total 1400 ml 1400 ml Balance -540 ml -1400 ml Intake Free Water 200 ml Tube Feeding 660 ml Output Urine Total 1400 ml 600 ml Stool Total 800 ml # Voids 1 # Bowel Movements 1 Objective WDWN NAD awake chronically ill moderate breath sounds bilaterally without rhonchi or wheeze [id number] NABS nontender GT no CCE nonfocal weak wounds noted Laboratory Tests 08/07/20 09:32: White Blood Count 9.2, Red Blood Count 3.05L, Hemoglobin 8.3L, Hematocrit 26.6L, Mean Corpuscular Volume 87, Mean Corpuscular Hemoglobin 27.2, Mean Corpuscular Hemoglobin Concent 31.1L, Red Cell Distribution Width 16.1H, Platelet Count 337, Mean Platelet Volume 6.1L, Neutrophils (%) (Auto) 73.3, Lymphocytes (%) (Auto) 14.3L, Monocytes (%) (Auto) 8.2, Eosinophils (%) (Auto) 3.7H, Basophils (%) (Auto) 0.5, Sodium Level 139, Potassium Level 4.8, Chloride Level 104, Carbon Dioxide Level 33H, Anion Gap 2L, Blood Urea Nitrogen 36H, Creatinine 1.1, Estimat Glomerular Filtration Rate > 60, Glucose Level 112H, Calcium Level 8.3L, Total Bilirubin 0.3, Aspartate Amino Transf (AST/SGOT) 24, Alanine Aminotransferase (ALT/SGPT) 29, Alkaline Phosphatase 121H, Total Protein 6.9, Albumin 1.0L, Globulin 5.9, Albumin/Globulin Ratio 0.2L Current Medications Medications (Trade) Dose Ordered Sig/Clive Route PRN Reason Start Time Stop Time Status Last Admin Dose Admin Acetaminophen (Tylenol) 650 mg Q4H PRN GT Temp >100.5 07/18/20 09:30 08/17/20 09:29 08/05/20 13:22 Acetaminophen (Tylenol) 650 mg Q4H PRN RECTAL Temp >100.5 07/14/20 13:30 08/13/20 13:29 Amiodarone HCl (Cordarone) 200 mg DAILY@1800 GT 07/30/20 18:00 10/28/20 17:59 08/07/20 17:07 Ascorbic Acid (Vitamin C) 250 mg TWICE A DAY GT 07/16/20 18:00 08/15/20 17:59 08/07/20 17:07 Atorvastatin Calcium (Lipitor) 10 mg BEDTIME ORAL 08/05/20 21:00 10/22/20 20:59 08/07/20 20:30 Chlorhexidine Gluconate (Jennifer-Hex 2%) 1 applic DAILY@2000 TOPIC 07/17/20 20:00 10/15/20 19:59 08/07/20 20:31 Famotidine (Pepcid) 20 mg Q12HR GT 07/16/20 21:00 10/14/20 20:59 08/07/20 20:30 Finasteride (Proscar) 5 mg DAILY ORAL 07/15/20 09:00 10/13/20 08:59 08/07/20 08:10 Hydralazine HCl (Apresoline) 25 mg Q6H PRN GT SBP above 150 07/24/20 23:30 10/22/20 23:29 1/9/21 05:22 Levetiracetam (Keppra) 1,000 mg Q12HR ORAL 07/14/20 21:00 08/13/20 20:59 08/07/20 20:29 Metoprolol Tartrate (Lopressor) 50 mg Q12HR ORAL 07/25/20 22:15 10/23/20 22:14 08/07/20 20:30 Multivitamins (Multivitamins) 1 tab DAILY GT 07/17/20 09:00 08/16/20 08:59 08/07/20 08:10 Sodium Hypochlorite (Dakin's Half Strength) 1 applic DAILY TOPIC 07/16/20 13:00 08/15/20 12:59 08/07/20 08:22 Zinc Sulfate (Zinc Sulfate) 220 mg DAILY GT 07/27/20 09:00 10/25/20 08:59 08/07/20 08:10 Assessment/Plan Assessment/Plan Impression: Healthcare-associated pneumonia Acute respiratory failure with hypoxia Tracheostomy status Pleural effusion, left-recurrent Decubitus ulcers Urinary tract infection Anemia S/p previous Craniotomy, RCA occlusion, CONTRACT CONSULTANT shunt Seizure history GERD, dysphagia s/p GJ tube h/o Hypertension h/o Atrial fibrillation Previous DVT and Pulmonary Embolism, hypernatremia Plan events reviewed monitor HH for change J tube feeds O2 - taper; as able still on 50% nebs as needed Wound care Cardiology follow up TOOL LIAISON Medications dc planning - awaiting CM and discussed impression, plan, and exam edited and reviewed in detail care discussed with Nikita Arreola MD Aug 08, 2020 08:29
[2020-08-08] MEDS: Zinc Sulfate 220mg GT SCH (08:36)
[2020-08-08] MEDS: Ascorbic Acid 500mg tab GT SCH ×2 (08:36→17:49)
[2020-08-08] MEDS: Metoprolol Tartrate 50mg tab ORAL SCH ×2 (08:38→20:39)
[2020-08-08] MEDS: Dakin's 0.25% (Half Strength) 16oz TOPIC SCH (09:00)
--- NOTE | 2020-08-08 09:22 | NUR ---
CASE MANAGEMENT:REVIEW 08/08/20 SI: PNA. UTI. BACTEREMIA. UGIB COPIOUS AMOUNTS OF SECRETIONS 97.6 113 24 97/54 94% ON T-PIECE 12L/50% FIO2 IS: AMIODARONE GT QD ZINC GT QD LOPRESSOR GT Q12 VT C GT BID KEPPRA GT Q12 : TELEMETRY STATUS DCP: FROM HOME PLAN: WEAN OXYGEN TO LEVEL OF APPROPRIATENESS FOR HOME NOVEL COVID RESULTS PENDING
--- NOTE | 2020-08-08 10:31 | Surgery Progress Note ---
Surgery Progress Note Subjective Additional Comments no bleeding today resting comfortable' eye open Objective Last 24 Hour Vital Signs Date Time Temp Pulse Resp B/P (MAP) Pulse Ox O2 Delivery O2 Flow Rate FiO2 08/08/20 09:00 Trach Collar 12.0 08/08/20 08:38 113 116/66 08/08/20 08:00 98.8 113 24 116/66 (83) 96 08/08/20 08:00 114 08/08/20 07:58 95 T-Piece 12.0 50 08/08/20 04:00 97.6 106 24 97/54 (68) 94 08/08/20 04:00 106 08/08/20 01:15 95 T-Piece 12.0 50 08/08/20 00:00 87 08/08/20 00:00 98.9 89 28 100/58 (72) 94 08/07/20 21:00 Trach Collar 12.0 08/07/20 20:30 108 114/68 08/07/20 20:05 94 T-Piece 12.0 50 08/07/20 20:00 103 08/07/20 20:00 98.3 103 28 114/68 (83) 90 08/07/20 16:00 100 08/07/20 16:00 97.9 104 18 105/61 (76) 92 08/07/20 12:00 98.8 98 17 104/61 (75) 95 08/07/20 12:00 98 I&O Intake and Output 08/07/20 08/08/20 19:00 07:00 Intake Total 860 ml Output Total 1400 ml 1400 ml Balance -540 ml -1400 ml Intake Free Water 200 ml Tube Feeding 660 ml Output Urine Total 1400 ml 600 ml Stool Total 800 ml # Voids 1 # Bowel Movements 1 Dressing: saturated Cardiovascular: RSR Respiratory: decreased breath sounds Abdomen: soft, flat, non-tender, non-distended Extremities: edema, no tenderness, no cyanosis, pulses, other Plan Problems: (1) Decubitus skin ulcer Assessment & Plan: Pt presented on admission with PV shunt,Tracheostomy, Contractures and multiple Pressure Injuries.Skin assessed under tracheal collar. Skin is erythematous but without any open wounds. GT site is red and excoriated.Scattered senile purpuras bilat upper extremities. Full thickness Sacral Pressure Injury(L)11.8cm x (W)8cm. Base of wound is 75% mixed necrosis and slough,20% antonio. Bone is palpable at base. Edges are mac erated. Mild odor noted. Small amt brown exudate noted. Periwound is indurated and maroon with additional erythema and scattered Partial thickness shearing. Full Thickness Pressure Injury L trochanteric with undermined borders.(L)5cm x (W)7cm x (D)2.6cm, undermining clockwise 11-2 by 4.2cm @11o'clock. Base of wound is 75%% mixed necrosis and slough,25% antonio. Wound has appearance of two wounds secondary necrotic bridge.In addition, periwound at clockwise 10-2o'clock the base is necrotic and fluctuant with marginal erythema. Small amt malodorous haemopurulent exudate noted. Full thickness Pressure Injury L Ischium(L)3.5cm x (W)2.0cm. Base of wound is 80% slough,20% antonio. Surrounding necrotic borders that are fluctuant.Small amt sanguineous exudate. Mild odor noted. Full thickness Pressure Injury lateral L Tibia to L lateral Malleolus(L)24.5cm x (W)3.5cm. Base of wound is antonio with scattered necrosis and slough, tendon exposure. Semi-detached borders that indurated and macerated with an area of soft necrosis at proximal borders of wound. Small amt haemopurulent exudate noted. No odor noted. Full thickness Pressure Injury L Heel(L)10.3cm x (W)7.5cm. Base of wound is 60% necrotic,10% slough,30% natonio. Bone is palpable. Borders are indurated with a portion of borders rolled giving heel a shaved appearance. Moderate amt haemopurulent exudate. Mild odor noted.Periwound is purpuric and fluctuant. Full thickness Pressure Injury medial/lateral L foot(L)3.5cm x (W)3.5cm x (D)0.3cm. Base of wound is antonio. Borders and periwound are purpuric and fluctuant.Small amt sanguineous exudate noted. Unstageable Pressure Injury Distal/Lateral L foot(L)2.7cm x (W)4.3cm. Base of wound is 80% soft necrosis,20% antonio. Edges are adherent to base of wound. Periwound is purpuric and fluctuant. Full thickness Pressure Injury R heel Plantar(L)8.5cm x (W)9cm. Base of pressure with scattered necrosis and slough,otherwise base of wound is antonio. Edges are macerated with surrounding necrosis. Small amt seropurulent exudate noted.Mild odor noted. Stable dry eschar dorsal R foot1.5cm x (W)1cm. Edges are adherent to base of wound. No erythema,induration or fluctuance periwound. Stable dry eschar distal/lateral R foot (L)0.8cm x (W)0.8cm. NO erythema,induration or fluctuance periwound. R foot is edematous. Tx.Plan: Cleanse Sacral wound with Dakin's Kristel 0.25%. Apply Dakin's moistened kerlix to wound. Apply Triad periwound. Cover with Optifoam drsg. Change Daily and prn. Cleanse L trochanteric Wound with Dakin's Kristel 0.25%. Loosely pack with Dakin's moistened Kerlix, Apply Moisture Barrier Periwound. Cover with Optifoam drsg Daily and prn. Cleanse R Ischial wound with Dakin's Kristel 0.25%. Apply Dakin's moistened gauze to wound. Apply Moisture Barrier Paste periwound. Cover with Optifoam drsg Daily and prn. Cleanse wounds Lateral R lower extremity, R Heel and Lateral R foot with Dakin's Kristel 0.25%. Place Dakin's Moistened gauze to wounds. Apply Triad Paste along edges of wound. Cover wounds with ABD Pads. Wrap with Kerlix from Base of toes. Cleanse wound R heel with Dakin's Kristel 0.25%. Apply Dakin's moistened Gauze to wound. Apply Triad Periwound. Cover with ABD PAd and wrap with Kerlix. Swab dry Eschar dorsal and Lateral aspect of R foot .Cover with Abd Pads and Wrap with Kerlix Daily and prn. Wash GT site with Soap and water. Apply Triad Paste Daily and prn(Leave Open to Air) Reposition at least every 2hours or as tolerated. Place Pillow Between Knees. Off-Load Heels with Pillow. APM/TERRIE Mattress overlay. (2) Anemia Assessment & Plan: trend h/h prbc prn (3) UTI (urinary tract infection) (4) Pleural effusion, left Assessment & Plan: Lungs: Hazy left lung attenuation could be due to consolidation, pulmonary edema; correlate with presentation. Retrocardiac atelectasis without or with consolidation. Pleural space: Small-moderate left pleural effusion with passive atelectasis. No pneumothorax. Heart: Unremarkable. No cardiomegaly. Mediastinum: Unremarkable. Bones/joints: No acute abnormality Tubes, lines and devices: Tracheostomy. Right upper extremity PICC tip in the mid SVC. IMPRESSION: 1. Tracheostomy. 2. Right upper extremity PICC tip in the mid SVC. 3. Small-moderate left pleural effusion with passive atelectasis. 4. Hazy left lung attenuation could be due to consolidation, pulmonary edema; correlate with presentation. 5. Retrocardiac atelectasis without or with consolidation. 6. Recommend CT chest with IV contrast to further characterize these findings. (5) Malfunction of gastrostomy tube Assessment & Plan: DAILY ESTIMATED NEEDS: Needs based on Wounds, pulmonary/ 74.5kg 25-30 kcals/kg 8586-8396 total kcals 1.5-2 g protein/kg 111-149 g total protein 25-30 mL/kg 9709-5471 total fluid mLs NUTRITION DIAGNOSIS: * Swallowing difficulty R/T dysphagia, h/o craniotomy, respiratory failure as evidenced by pt on T-collar, GJ tube dependent. * Increased kcal/prot/micronutrients needs R/T wound healing as evidenced by pt admitted w/ multiple advanced wounds including full thickness wound x 7 and unstageable wounds x 2, refer to WC eval. CURRENT TF:Jevity 1.2 @ 60ml/hr x 24 hrs-> now Glucerna 1.2 ENTERAL NUTRITION RECOMMENDATIONS: Glucerna 1.2 @ 65ml/hr x 24 hrs + Prosource 1pkt TID to provide 1560ml, 1872kcal, 94g+ 33g prot, 1259ml free water * Increase goal rate to 65ml/hr x 24 hrs to better meet est needs * Add Prosource 1pkt TID to meet increased protein needs * HOB over 30 degrees/ water flush 150ml q 6hrs without IVF ADDITIONAL RECOMMENDATIONS: * Calibrated bedscale wt * Wound Care: Con't Vit C 500mg BID, ZnSO4 220mg QD x 10 days add Stevie BID * Monitor BGs, need for carb controlled TF -> now on Glucerna 1.2 * Monitor lytes, replete as needed (6) Acute respiratory failure with hypoxia (7) HCAP (healthcare-associated pneumonia) Deny Westfall Aug 08, 2020 10:31
--- NOTE | 2020-08-08 10:59 | NUR ---
NURSE NOTES: Negative covid PCR results relayed to Dr. Devlin and Dr. Nelson. Received orders to D/C isolation precautions, noted and carried out.
[2020-08-08 12:00] VITALS: BP 124/61
--- NOTE | 2020-08-08 12:23 | General Progress Note ---
Subjective ROS Limited/Unobtainable: Yes Constitutional: Reports: malaise, weakness HEENT: Reports: no symptoms Cardiovascular: Reports: no symptoms Respiratory: Reports: cough, shortness of breath, sputum Gastrointestinal/Abdominal: Reports: no symptoms Genitourinary: Reports: no symptoms Neurologic/Psychiatric: Reports: pre-existing deficit Endocrine: Reports: no symptoms Hematologic/Lymphatic: Reports: anemia Allergies: Coded Allergies: No Known Allergies (Unverified , 11/02/19) All Systems: reviewed and negative except above Subjective no events. no real change. thick secretions. on 12 L trach collar. opens eyes but is nonverbal. does not follow commands. no bleeding. Off AC due to recurrent bleeding from wounds. Objective Last 24 Hour Vital Signs Date Time Temp Pulse Resp B/P (MAP) Pulse Ox O2 Delivery O2 Flow Rate FiO2 08/08/20 12:00 98.6 98 24 124/61 (82) 96 08/08/20 12:00 97 08/08/20 09:00 Trach Collar 12.0 08/08/20 08:38 113 116/66 08/08/20 08:00 98.8 113 24 116/66 (83) 96 08/08/20 08:00 114 08/08/20 07:58 95 T-Piece 12.0 50 08/08/20 04:00 97.6 106 24 97/54 (68) 94 08/08/20 04:00 106 08/08/20 01:15 95 T-Piece 12.0 50 08/08/20 00:00 87 08/08/20 00:00 98.9 89 28 100/58 (72) 94 08/07/20 21:00 Trach Collar 12.0 08/07/20 20:30 108 114/68 08/07/20 20:05 94 T-Piece 12.0 50 08/07/20 20:00 103 08/07/20 20:00 98.3 103 28 114/68 (83) 90 08/07/20 16:00 100 08/07/20 16:00 97.9 104 18 105/61 (76) 92 Intake and Output 08/07/20 08/08/20 19:00 07:00 Intake Total 860 ml Output Total 1400 ml 1400 ml Balance -540 ml -1400 ml Intake Free Water 200 ml Tube Feeding 660 ml Output Urine Total 1400 ml 600 ml Stool Total 800 ml # Voids 1 # Bowel Movements 1 Height (Feet): 5 Height (Inches): 4.00 Weight (Pounds): 171 Objective General Appearance: WD/WN, confused EENT: normal ENT inspection Neck: normal alignment Cardiovascular: normal rate, regular rhythm Respiratory/Chest: rhonchi - bilaterally Abdomen: normal bowel sounds, non tender, soft, no organomegaly Edema: no edema noted Leg (L), no edema noted Leg (R) Neurologic: disoriented, aphasia Skin: normal pigmentation Assessment/Plan Problem List: (1) Anemia ICD Codes: D64.9 - Anemia, unspecified SNOMED: 837507916, 723145177 Qualifiers: Qualified Codes: D50.0 - Iron deficiency anemia secondary to blood loss (chronic) (2) Pleural effusion, left ICD Codes: J90 - Pleural effusion, not elsewhere classified SNOMED: 64050687, 340113495 (3) Malfunction of gastrostomy tube ICD Codes: K94.23 - Gastrostomy malfunction SNOMED: 706047777 (4) Acute respiratory failure with hypoxia ICD Codes: J96.01 - Acute respiratory failure with hypoxia SNOMED: 02834220, 804298231 (5) HCAP (healthcare-associated pneumonia) ICD Codes: J18.9 - Pneumonia, unspecified organism SNOMED: 151907533, 518270560 Status: stable, progressing Assessment/Plan: monitor off abx per id follow covid pcr monitor for fevers trach care resp rx Continue suctioning as needed Continue tube feeds monitor for fever DVT and stress ulcer prophylaxis Monitor on telemetry for recurrent atrial fibrillation. rate control per cards monitor for bleeding. off AC due to bleeding from wounds check labs today ivf as needed dc planning Angel Jaramillo MD Aug 08, 2020 12:23
--- NOTE | 2020-08-08 13:47 | NUR ---
NURSE NOTES: Spoke with RT. Attempted to wean O2 to 10lpm FiO2 40%, suctioning done. Pt noted desats 89%. O2 increased back to 12lpm.
[2020-08-08 16:00] VITALS: BP 145/74
--- NOTE | 2020-08-08 16:35 | NUR ---
NURSE NOTES:WOUND CARE FOLLOW-UP NOTES: Loose non-viable tissue of R Heel removed by . Scattered slough at base of wound. Wound is malodorous. Cleansed with Dakin's 0.25% justina. Dakin's moistened gauze applied . Triad Paste applied along borders. Covered with ABD pad and wrapped with Kerlix. Wound Lateral L Tibia re-evaluated . Base of wound is moist,granular, small area of bone and tendon exposure. noted. Small amt sanguineous exudate noted. No odor noted . Edges are adherent to base of wound. No evidence of additional skin breakdown periwound . New Tx orders received from for Promogran. Tx amended and applied as per Md's orders. Tx.Plan:Cleanse Lateral L Tibia with Saline. Apply Promogran to wound. Cover with ABD Pad. Wrap with Kerlix. Change every Jth-Quo-Cmdxoh. Continue All other wound care orders as per Md's orders.
[2020-08-08] MEDS: Amiodarone 200mg tab GT SCH (17:48)
--- NOTE | 2020-08-08 19:18 | General Progress Note ---
Subjective Allergies: Coded Allergies: No Known Allergies (Unverified , 11/02/19) Subjective Above noted non communicative stools brown, rectal tube tolerating TF COVID (-) Objective Last 24 Hour Vital Signs Date Time Temp Pulse Resp B/P (MAP) Pulse Ox O2 Delivery O2 Flow Rate FiO2 08/08/20 19:11 95 T-Piece 12.0 50 08/08/20 16:00 116 08/08/20 16:00 99.6 109 24 145/74 (97) 93 08/08/20 13:40 92 T-Piece 12.0 50 08/08/20 12:00 98.6 98 24 124/61 (82) 96 08/08/20 12:00 97 08/08/20 09:00 Trach Collar 12.0 08/08/20 08:38 113 116/66 08/08/20 08:00 98.8 113 24 116/66 (83) 96 08/08/20 08:00 114 08/08/20 07:58 95 T-Piece 12.0 50 08/08/20 04:00 97.6 106 24 97/54 (68) 94 08/08/20 04:00 106 08/08/20 01:15 95 T-Piece 12.0 50 08/08/20 00:00 87 08/08/20 00:00 98.9 89 28 100/58 (72) 94 08/07/20 21:00 Trach Collar 12.0 08/07/20 20:30 108 114/68 08/07/20 20:05 94 T-Piece 12.0 50 08/07/20 20:00 103 08/07/20 20:00 98.3 103 28 114/68 (83) 90 Intake and Output 08/07/20 08/08/20 19:00 07:00 Intake Total 860 ml 60 ml Output Total 1400 ml 1400 ml Balance -540 ml -1340 ml Intake Free Water 200 ml Tube Feeding 660 ml 60 ml Output Urine Total 1400 ml 600 ml Stool Total 800 ml # Voids 1 # Bowel Movements 1 Height (Feet): 5 Height (Inches): 4.00 Weight (Pounds): 171 Objective Eldely WM NCAT (+) trach , T tube Coarse BS RRR abd soft (+) GT ext no edema Assessment/Plan Status: stable, progressing Assessment/Plan: Assessment - UGIB - resolved - Anemia, s/p transfusion - h/o PUD - resp failure, s/p trach - dysphagia, s/p PEG - atrial fibrillation - h/o DVT - hypernatremia Recommendations - anticoagulation - H2B BID indefinitely - TF - free water - follow H&H Akiko Rai MD Aug 08, 2020 19:18
--- NOTE | 2020-08-08 19:25 | NUR ---
NURSE HAND-OFF REPORT: Important Events on Shift: Assisted wound nurse with wound dressing changes, endorsed to NOC shift not to remove dressing over left posterior/lateral foot, but may change dressing over left heel; Wound nurse will change left posterior/lateral foot dressing herself; pt unable to tolerate O2 weaning today, still at 12 lpm Patient Status: Full code Diet: GT feeding Pending Orders: N Pending Results/Labs: Labs in AM Pending MD notification: N Latest Vital Signs: Temperature 99.6 , Pulse 116 , B/P 145 /74 , Respiratory Rate 24 , O2 SAT 95 , Trach Collar, O2 Flow Rate 12.0 . Vital Sign Comment: EKG Rhythm: Sinus Tachycardia Rhythm change?: N Notified?: N -Dr. Aubree VALDEZ Response: Message left await call Latest Ramirez Fall Score: 50 Fall Risk: High Risk Safety Measures: Call light Within Reach, Bed Alarm Zone 1, Side Rails Side Rails x2, Bed position Low and Locked. Fall Precautions: Yellow Socks Yellow Gown Report given to Shirlene SMALLWOOD.
--- NOTE | 2020-08-08 19:50 | NUR ---
NURSE NOTES: Received patient in bed, non verbal, tracks with eyes, spontaneous eye opening noted, patient is on trach 12 liters Fio2 is 50 %, on tube feeding Glucerna 1.2 at 60 cc/hr, with flush 100 cc every 4 hours. Patient has [place] cath 16 Fr, secured, draining well. Rectal tube in place, flush PRN. PICC line is to right upper arm, single lumen,dressing is clean dry and intact, patient is bedbound, total care, seizure precautions, side rails are padded. Call light is within reach, bed is lowered, locked, alarm is on, will continue to monitor for comfort and safety.
[2020-08-08] MEDS: Dyna-Hex 2% Top Sol 2oz TOPIC SCH (20:00)
[2020-08-08 20:24] VITALS: BP 104/61
[2020-08-08] MEDS: Atorvastatin 20mg tab ORAL SCH (20:39)
--- NOTE | 2020-08-08 21:01 | Neurology Progress Note ---
Interim History Interim History ROS Limited/Unobtainable: Yes Interim History lethargic Objective Physical Exam Last Vital Signs Date Time Temp Pulse Resp B/P (MAP) Pulse Ox O2 Delivery O2 Flow Rate FiO2 08/08/20 20:39 114 110/78 08/08/20 20:24 99.0 20 93 08/08/20 19:11 T-Piece 12.0 50 Head: normocophalic Neck: no rigidity EENT: benign Neurologic Exam Objective lethargic, pupils reactive not following withdraws to pain Impression/Recommendations Problems: (1) Malfunction of gastrostomy tube (2) Anemia (3) Pleural effusion, left (4) Acute respiratory failure with hypoxia (5) HCAP (healthcare-associated pneumonia) (6) UTI (urinary tract infection) Status: stable, progressing Diagnostic Impression Recurrent sepsis Possible aspiration Encephalopathy, acute on chronic rule out seizures map > 65 ro covid cont atb fu cultures no need for AED now Gerson Singh MD Aug 08, 2020 21:01
--- NOTE | 2020-08-08 21:32 | Cardiology Progress Note ---
Subjective DATE OF SERVICE: Aug 08, 2020 Withdrawn and not following commands. No new bleeding; remains off anticoagulation. BP parameters stabilized. Monitor: Sinus arrhythmia with PAC's; paroxysms of AFib/flutter persist. Objective Last 24 Hour Vital Signs Date Time Temp Pulse Resp B/P (MAP) Pulse Ox O2 Delivery O2 Flow Rate FiO2 08/08/20 21:25 Trach Collar 12.0 08/08/20 20:39 114 110/78 08/08/20 20:24 99.0 114 20 104/61 (75) 93 08/08/20 19:11 95 T-Piece 12.0 50 08/08/20 16:00 116 08/08/20 16:00 99.6 109 24 145/74 (97) 93 08/08/20 13:40 92 T-Piece 12.0 50 08/08/20 12:00 98.6 98 24 124/61 (82) 96 08/08/20 12:00 97 08/08/20 09:00 Trach Collar 12.0 08/08/20 08:38 113 116/66 08/08/20 08:00 98.8 113 24 116/66 (83) 96 08/08/20 08:00 114 08/08/20 07:58 95 T-Piece 12.0 50 08/08/20 04:00 97.6 106 24 97/54 (68) 94 08/08/20 04:00 106 08/08/20 01:15 95 T-Piece 12.0 50 08/08/20 00:00 87 08/08/20 00:00 98.9 89 28 100/58 (72) 94 ROS: unchanged from 07/14/20 HEENT: Thick Trach secretions RHYTHM: NSR, ST, PACs, Afib LUNGS: bilateral rhonchi, other - decreased BS left base CARDIAC: normal S1 and S2, rapid rate, arrhythmia ABDOMEN: normal bowel sounds, soft, G-Tube intact EXTREMITIES: normal range of motion, non-tender, trace edema, other - withdrawn Assessment/Plan Assessment/Plan Healthcare associated PNA Paroxysmal atrial fibrillation/flutter Paroxysmal atrial ectopy Hx ICB with craniotomy and MEDICAL ASSISTANT PRN shunt Ac/chronic encephalopathy Seizure disorder Troponin leak; no signs of acute CO Trach status Dysphagia with GJ-Tube 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 Dyslipidemia on high dose statin - now dose adjusted Dehydration/hypernatremia Severe protein-calorie malnutrition Multiple wounds Anemia - s/p tx Maintain current beta blockade dose. Abx Resp support Cardiac monitoring Statin dose adjusted Amiodarone at maintenance dose now Free water replacement as needed; off IVF for now. Hold anticoagulation due to bleeding risk Dylan Mak MD Aug 08, 2020 21:32
[2020-08-09] VITALS: BP 119/65
[2020-08-09 04:00] VITALS: BP 111/76
--- NOTE | 2020-08-09 07:29 | NUR ---
NURSE HAND-OFF REPORT: Important Events on Shift: uneventful, sinus tachy, per wound care nurse do not touch dressing on the left posterior leg. Patient Status: full code Diet:Glucerna 1.2 at 60 cc hr, flush 100 cc Pending Orders: Pending Results/Labs: Pending MD notification: Latest Vital Signs: Temperature 98.8 , Pulse 111 , B/P 111 /76 , Respiratory Rate 22 , O2 SAT 94 , Trach Collar, O2 Flow Rate 12.0 . Vital Sign Comment: EKG Rhythm: Sinus Tachycardia Rhythm change?: N Notified?: N -Dr. Aubree VALDEZ Response: Message left await call Latest Ramirez Fall Score: 50 Fall Risk: High Risk Safety Measures: Call light Within Reach, Bed Alarm Zone 1, Side Rails Side Rails x2, Bed position Low and Locked. Fall Precautions: Yellow Socks Yellow Gown Report given to Tye SMALLWOOD
--- NOTE | 2020-08-09 07:30 | NUR ---
NURSE NOTES: Receive a report from SELIN Garber.
--- NOTE | 2020-08-09 07:45 | NUR ---
NURSE NOTES: Pt is asleep but aroused by shaking, non-verbal d/t trach. On O2 12L via trach, Fio2 50%. No distress noted. G-tube feeding as ordered. Kept head elevated. On TERRIE mattress with pressure injuries- sacrum, left trochanter and bilateral L/E. Kept dressing intact. Noted body contracture and support with pillows. Yellow urine is patent via valles catheter. Rectal tube is inserted stated. PICC one lumen is patent on KIZZY. Dressing kept intact. Call light within reach. Will continue to monitor.
[2020-08-09 08:00] VITALS: BP 106/64
[2020-08-09 08:35] LABS: BASOPHILS % (AUTO) 0.9 % (0.0-2.0); EOSINOPHILS % (AUTO) 1.4 % (0.0-3.0); HEMATOCRIT 27.7 % (42.0-52.0); HEMOGLOBIN 8.4 G/DL (14.2-18.0); LYMPHOCYTES % (AUTO) 13.3 % (20.0-45.0); MEAN CORPUSCULAR VOLUME 89 FL (80-99); MONOCYTES % (AUTO) 9.5 % (1.0-10.0); NEUTROPHILS % (AUTO) 74.9 % (45.0-75.0); PLATELET COUNT 376 K/UL (150-450); RED BLOOD COUNT 3.12 M/UL (4.70-6.10); RED CELL DISTRIBUTION WIDTH 16.3 % (11.6-14.8); WHITE BLOOD COUNT 8.5 K/UL (4.8-10.8)
--- NOTE | 2020-08-09 08:55 | NUR ---
RD ASSESSMENT & RECOMMENDATIONS SEE CARE ACTIVITY FOR COMPLETE ASSESSMENT DAILY ESTIMATED NEEDS: Needs based on Wounds, pulmonary/ 74.5kg 25-30 kcals/kg 8656-2747 total kcals 1.5-2 g protein/kg 111-149 g total protein 25-30 mL/kg 4817-1549 total fluid mLs NUTRITION DIAGNOSIS: * Swallowing difficulty R/T dysphagia, h/o craniotomy, respiratory failure as evidenced by pt on T-collar, GJ tube dependent. * Increased kcal/prot/micronutrients needs R/T wound healing as evidenced by pt admitted w/ multiple advanced wounds including full thickness wound x 7 and unstageable wounds x 2, refer to WC eval. CURRENT TF:Jevity 1.2 @ 60ml/hr x 24 hrs-> now Glucerna 1.2 ENTERAL NUTRITION RECOMMENDATIONS: Glucenra 1.2 @ 65ml/hr x 24 hrs + Prosource 1pkt TID to provide 1560ml, 1872kcal, 94g+ 33g prot, 1259ml free water * Increase goal rate to 65ml/hr x 24 hrs to better meet est needs * Add Prosource 1pkt TID to meet increased protein needs * HOB over 30 degrees/ water flush 180ml q 6hrs without IVF ADDITIONAL RECOMMENDATIONS: * Calibrated bedscale wt * Wound Care: Con't Vit C 500mg BID, ZnSO4 220mg QD x 10 days add Stevie BID * Montior BGs, need for carb controlled TF -> now on Glucerna 1.2 * Monitor lytes, replete as needed
[2020-08-09] MEDS: Dakin's 0.25% (Half Strength) 16oz TOPIC SCH (09:00)
--- NOTE | 2020-08-09 09:08 | General Progress Note ---
Subjective ROS Limited/Unobtainable: No Constitutional: Reports: malaise, weakness HEENT: Reports: no symptoms Cardiovascular: Reports: no symptoms Respiratory: Reports: shortness of breath, sputum Gastrointestinal/Abdominal: Reports: difficulty swallowing Genitourinary: Reports: no symptoms Neurologic/Psychiatric: Reports: pre-existing deficit Endocrine: Reports: no symptoms Hematologic/Lymphatic: Reports: anemia Allergies: Coded Allergies: No Known Allergies (Unverified , 11/02/19) All Systems: reviewed and negative except above Subjective no events. no real change. thick secretions. on 12 L trach collar. opens eyes but is nonverbal. does not follow commands. no bleeding. Off AC due to recurrent bleeding from wounds. covid PCR negative Objective Last 24 Hour Vital Signs Date Time Temp Pulse Resp B/P (MAP) Pulse Ox O2 Delivery O2 Flow Rate FiO2 08/09/20 08:00 99.5 110 22 106/64 (78) 94 124 08/09/20 08:00 125 08/09/20 04:00 98.8 109 22 111/76 (88) 94 109 08/09/20 04:00 111 08/09/20 01:09 95 T-Piece 12.0 50 08/09/20 00:00 102 08/09/20 00:00 99.0 110 22 119/65 (83) 94 110 08/08/20 21:25 Trach Collar 12.0 08/08/20 20:39 114 110/78 08/08/20 20:24 99.0 114 20 104/61 (75) 93 08/08/20 20:00 107 08/08/20 19:11 95 T-Piece 12.0 50 08/08/20 16:00 116 08/08/20 16:00 99.6 109 24 145/74 (97) 93 08/08/20 13:40 92 T-Piece 12.0 50 08/08/20 12:00 98.6 98 24 124/61 (82) 96 08/08/20 12:00 97 Intake and Output 08/08/20 08/09/20 19:00 07:00 Intake Total 1020 ml 400 ml Output Total 1300 ml Balance 1020 ml -900 ml Intake Free Water 300 ml 100 ml Tube Feeding 720 ml 300 ml Output Urine Total 800 ml Stool Total 500 ml # Voids 1 # Bowel Movements 1 Laboratory Tests 08/09/20 07:13: White Blood Count 8.5, Red Blood Count 3.12L, Hemoglobin 8.4L, Hematocrit 27.7L, Mean Corpuscular Volume 89, Mean Corpuscular Hemoglobin 27.0, Mean Corpuscular Hemoglobin Concent 30.3L, Red Cell Distribution Width 16.3H, Platelet Count 376, Mean Platelet Volume 6.2L, Neutrophils (%) (Auto) 74.9, Lymphocytes (%) (Auto) 13.3L, Monocytes (%) (Auto) 9.5, Eosinophils (%) (Auto) 1.4, Basophils (%) (Auto) 0.9, Sodium Level [Pending], Potassium Level [Pending], Chloride Level [Pending], Carbon Dioxide Level [Pending], Blood Urea Nitrogen [Pending], Creatinine [Pending], Estimat Glomerular Filtration Rate [Pending], Glucose Level [Pending], Calcium Level [Pending], Total Bilirubin [Pending], Aspartate Amino Transf (AST/SGOT) [Pending], Alanine Aminotransferase (ALT/SGPT) [Pending], Alkaline Phosphatase [Pending], Total Protein [Pending], Albumin [Pending], Globulin [Pending] Height (Feet): 5 Height (Inches): 4.00 Weight (Pounds): 171 Objective General Appearance: WD/WN, confused EENT: normal ENT inspection Neck: normal alignment Cardiovascular: normal rate, regular rhythm Respiratory/Chest: rhonchi - bilaterally Abdomen: normal bowel sounds, non tender, soft, no organomegaly Edema: no edema noted Leg (L), no edema noted Leg (R) Neurologic: disoriented, aphasia Skin: normal pigmentation Assessment/Plan Problem List: (1) Anemia ICD Codes: D64.9 - Anemia, unspecified SNOMED: 178090464, 721878135 Qualifiers: Qualified Codes: D50.0 - Iron deficiency anemia secondary to blood loss (chronic) (2) Pleural effusion, left ICD Codes: J90 - Pleural effusion, not elsewhere classified SNOMED: 63908302, 141350420 (3) Malfunction of gastrostomy tube ICD Codes: K94.23 - Gastrostomy malfunction SNOMED: 614084667 (4) Acute respiratory failure with hypoxia ICD Codes: J96.01 - Acute respiratory failure with hypoxia SNOMED: 32293113, 231099775 (5) HCAP (healthcare-associated pneumonia) ICD Codes: J18.9 - Pneumonia, unspecified organism SNOMED: 686212148, 888731534 Status: stable, progressing Assessment/Plan: monitor off abx per id follow covid pcr monitor for fevers trach care resp rx Continue suctioning as needed Continue tube feeds monitor for fever DVT and stress ulcer prophylaxis Monitor on telemetry for recurrent atrial fibrillation. rate control per cards monitor for bleeding. off AC due to bleeding from wounds follow up labs ivf as needed dc planning Angel Jaramillo MD Aug 09, 2020 09:08
[2020-08-09 09:15] LABS: ALANINE AMINOTRANSFERASE 25 U/L (12-78); ALBUMIN/GLOBULIN RATIO 0.2 (1.0-2.7); ALKALINE PHOSPHATASE 110 U/L (46-116); ANION GAP 4 mmol/L (5-15); ASPARTATE AMINO TRANSFERASE 24 U/L (15-37); BILIRUBIN,TOTAL 0.2 MG/DL (0.2-1.0); BLOOD UREA NITROGEN 38 mg/dL (7-18); CALCIUM 9.1 MG/DL (8.5-10.1); CARBON DIOXIDE 33 MMOL/L (21-32); CHLORIDE 108 MMOL/L (98-107); CREATININE 1.1 MG/DL (0.55-1.30); POTASSIUM 4.6 MMOL/L (3.5-5.1); SODIUM 144 MMOL/L (136-145)
[2020-08-09] MEDS: Zinc Sulfate 220mg GT SCH (09:44)
[2020-08-09] MEDS: Ascorbic Acid 500mg tab GT SCH ×2 (09:45→17:38)
[2020-08-09] MEDS: Metoprolol Tartrate 50mg tab ORAL SCH ×2 (09:45→21:11)
--- NOTE | 2020-08-09 10:10 | General Progress Note ---
Subjective ROS Limited/Unobtainable: No Allergies: Coded Allergies: No Known Allergies (Unverified , 11/02/19) Objective Last 24 Hour Vital Signs Date Time Temp Pulse Resp B/P (MAP) Pulse Ox O2 Delivery O2 Flow Rate FiO2 08/09/20 09:45 125 106/64 08/09/20 08:00 99.5 110 22 106/64 (78) 94 124 08/09/20 08:00 125 08/09/20 04:00 98.8 109 22 111/76 (88) 94 109 08/09/20 04:00 111 08/09/20 01:09 95 T-Piece 12.0 50 08/09/20 00:00 102 08/09/20 00:00 99.0 110 22 119/65 (83) 94 110 08/08/20 21:25 Trach Collar 12.0 08/08/20 20:39 114 110/78 08/08/20 20:24 99.0 114 20 104/61 (75) 93 08/08/20 20:00 107 08/08/20 19:11 95 T-Piece 12.0 50 08/08/20 16:00 116 08/08/20 16:00 99.6 109 24 145/74 (97) 93 08/08/20 13:40 92 T-Piece 12.0 50 08/08/20 12:00 98.6 98 24 124/61 (82) 96 08/08/20 12:00 97 Intake and Output 08/08/20 08/09/20 19:00 07:00 Intake Total 1020 ml 400 ml Output Total 1300 ml Balance 1020 ml -900 ml Intake Free Water 300 ml 100 ml Tube Feeding 720 ml 300 ml Output Urine Total 800 ml Stool Total 500 ml # Voids 1 # Bowel Movements 1 Laboratory Tests 08/09/20 07:13: White Blood Count 8.5, Red Blood Count 3.12L, Hemoglobin 8.4L, Hematocrit 27.7L, Mean Corpuscular Volume 89, Mean Corpuscular Hemoglobin 27.0, Mean Corpuscular Hemoglobin Concent 30.3L, Red Cell Distribution Width 16.3H, Platelet Count 376, Mean Platelet Volume 6.2L, Neutrophils (%) (Auto) 74.9, Lymphocytes (%) (Auto) 13.3L, Monocytes (%) (Auto) 9.5, Eosinophils (%) (Auto) 1.4, Basophils (%) (Auto) 0.9, Sodium Level 144, Potassium Level 4.6, Chloride Level 108H, Carbon Dioxide Level 33H, Anion Gap 4L, Blood Urea Nitrogen 38H, Creatinine 1.1, Estimat Glomerular Filtration Rate > 60, Glucose Level 114H, Calcium Level 9.1, Total Bilirubin 0.2, Aspartate Amino Transf (AST/SGOT) 24, Alanine Aminotransferase (ALT/SGPT) 25, Alkaline Phosphatase 110, Total Protein 7.2, Albumin 1.0L, Globulin 6.2, Albumin/Globulin Ratio 0.2L Height (Feet): 5 Height (Inches): 4.00 Weight (Pounds): 171 General Appearance: no apparent distress EENT: PERRL/EOMI Neck: supple Cardiovascular: normal rate Respiratory/Chest: decreased breath sounds Abdomen: normal bowel sounds, non tender, soft Extremities: non-tender Assessment/Plan Status: stable, progressing Assessment/Plan: Assessment - UGIB - resolved - Anemia, s/p transfusion - h/o PUD - resp failure, s/p trach - dysphagia, s/p PEG - atrial fibrillation - h/o DVT - hypernatremia Recommendations - anticoagulation - H2B BID indefinitely - TF - free water - follow H&H Kevni Garcias MD Aug 09, 2020 10:10
[2020-08-09 12:00] VITALS: BP 102/63
--- NOTE | 2020-08-09 12:30 | NUR ---
NURSE NOTES: Seen by WOC nurse and got a report for left leg dressing not to be changed until Tuesday. WOCN will follow up on Tuesday and will endorse next shift accordingly.
--- NOTE | 2020-08-09 15:15 | Pulmonology Progress Note ---
Subjective ROS Limited/Unobtainable: Yes Allergies: Coded Allergies: No Known Allergies (Unverified , 11/02/19) All Systems: reviewed and negative except above Objective Last 24 Hour Vital Signs Date Time Temp Pulse Resp B/P (MAP) Pulse Ox O2 Delivery O2 Flow Rate FiO2 08/09/20 12:00 97.5 92 22 102/63 (76) 96 124 08/09/20 12:00 92 08/09/20 09:45 125 106/64 08/09/20 09:00 Trach Collar 12.0 08/09/20 08:00 99.5 110 22 106/64 (78) 94 124 08/09/20 08:00 125 08/09/20 07:05 94 T-Piece 12.0 50 08/09/20 04:00 98.8 109 22 111/76 (88) 94 109 08/09/20 04:00 111 08/09/20 01:09 95 T-Piece 12.0 50 08/09/20 00:00 102 08/09/20 00:00 99.0 110 22 119/65 (83) 94 110 08/08/20 21:25 Trach Collar 12.0 08/08/20 20:39 114 110/78 08/08/20 20:24 99.0 114 20 104/61 (75) 93 08/08/20 20:00 107 08/08/20 19:11 95 T-Piece 12.0 50 08/08/20 16:00 116 08/08/20 16:00 99.6 109 24 145/74 (97) 93 Intake and Output 08/08/20 08/09/20 19:00 07:00 Intake Total 1020 ml 400 ml Output Total 1300 ml Balance 1020 ml -900 ml Intake Free Water 300 ml 100 ml Tube Feeding 720 ml 300 ml Output Urine Total 800 ml Stool Total 500 ml # Voids 1 # Bowel Movements 1 Laboratory Tests 08/09/20 07:13: White Blood Count 8.5, Red Blood Count 3.12L, Hemoglobin 8.4L, Hematocrit 27.7L, Mean Corpuscular Volume 89, Mean Corpuscular Hemoglobin 27.0, Mean Corpuscular Hemoglobin Concent 30.3L, Red Cell Distribution Width 16.3H, Platelet Count 376, Mean Platelet Volume 6.2L, Neutrophils (%) (Auto) 74.9, Lymphocytes (%) (Auto) 13.3L, Monocytes (%) (Auto) 9.5, Eosinophils (%) (Auto) 1.4, Basophils (%) (Auto) 0.9, Sodium Level 144, Potassium Level 4.6, Chloride Level 108H, Carbon Dioxide Level 33H, Anion Gap 4L, Blood Urea Nitrogen 38H, Creatinine 1.1, Estimat Glomerular Filtration Rate > 60, Glucose Level 114H, Calcium Level 9.1, Total Bilirubin 0.2, Aspartate Amino Transf (AST/SGOT) 24, Alanine Aminotransferase (ALT/SGPT) 25, Alkaline Phosphatase 110, Total Protein 7.2, Albumin 1.0L, Globulin 6.2, Albumin/Globulin Ratio 0.2L Current Medications Medications (Trade) Dose Ordered Sig/Clive Route PRN Reason Start Time Stop Time Status Last Admin Dose Admin Acetaminophen (Tylenol) 650 mg Q4H PRN GT Temp >100.5 07/18/20 09:30 08/17/20 09:29 08/05/20 13:22 Acetaminophen (Tylenol) 650 mg Q4H PRN RECTAL Temp >100.5 07/14/20 13:30 08/13/20 13:29 Amiodarone HCl (Cordarone) 200 mg DAILY@1800 GT 07/30/20 18:00 10/28/20 17:59 08/08/20 17:48 Ascorbic Acid (Vitamin C) 250 mg TWICE A DAY GT 07/16/20 18:00 08/15/20 17:59 08/09/20 09:45 Atorvastatin Calcium (Lipitor) 10 mg BEDTIME ORAL 08/05/20 21:00 10/22/20 20:59 08/08/20 20:39 Chlorhexidine Gluconate (Jennifer-Hex 2%) 1 applic DAILY@2000 TOPIC 07/17/20 20:00 10/15/20 19:59 08/08/20 20:00 Famotidine (Pepcid) 20 mg Q12HR GT 07/16/20 21:00 10/14/20 20:59 08/09/20 09:45 Finasteride (Proscar) 5 mg DAILY ORAL 07/15/20 09:00 10/13/20 08:59 08/09/20 09:46 Hydralazine HCl (Apresoline) 25 mg Q6H PRN GT SBP above 150 07/24/20 23:30 10/22/20 23:29 07/26/20 05:22 Levetiracetam (Keppra) 1,000 mg Q12HR ORAL 07/14/20 21:00 08/13/20 20:59 08/09/20 09:48 Metoprolol Tartrate (Lopressor) 50 mg Q12HR ORAL 07/25/20 22:15 10/23/20 22:14 08/09/20 09:45 Multivitamins (Multivitamins) 1 tab DAILY GT 07/17/20 09:00 08/16/20 08:59 08/09/20 09:46 Sodium Hypochlorite (Dakin's Half Strength) 1 applic DAILY TOPIC 07/16/20 13:00 08/15/20 12:59 08/09/20 09:00 Zinc Sulfate (Zinc Sulfate) 220 mg DAILY GT 07/27/20 09:00 10/25/20 08:59 08/09/20 09:44 Assessment/Plan Assessment/Plan Pulmonary Progress Note Subjective HPI: Patient is a 69 year old man, Tracheostomy status, s/p previous Craniotomy, RCA occlusion, [employer] shunt, has Seizure history, GERD, GJ tube, h/o Hypertension, Atrial fibrillation,previous anemia, previous DVT and Pulmonary Embolism, recurrent left Pleural effusion. Chief complaint was complaint respiratory distress, had difficulty suctioning patient. No reported fever chills but no reported nausea vomiting or diarrhea. Nonverbal status. Stable on TC Admitted with Pneumonia and small left pleural effusion, Covid 19 negative. 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 Past Surgical History: Craniotomy, Tracheostomy, G tube Pertinent Family History: NC Social History: NC All Other Systems: limited Objective Physical Exam Vital Signs Noted General Appearance: alert, mild distress, Chronically Ill Head: normocephalic, atraumatic Eyes: bilateral eye PERRL, bilateral eye EOMI ENT: hearing grossly normal, normal pharynx Neck: no meningismus, tracheotomy Respiratory: chest non-tender, CTAB Cardiovascular: regular rate, rhythm, HS1, HS2 normal,no murmur Gastrointestinal: normal bowel sounds, non tender, no mass, no organomegaly, no bruit, non-distended Musculoskeletal: other - Contracted,decubitus LE dressings Neurologic: no focal signs noted,no seizures Assessment/Plan Impression: Healthcare-associated pneumonia Acute respiratory failure with hypoxia Tracheostomy status Pleural effusion, left-recurrent Decubitus ulcers Urinary tract infection Anemia S/p previous Craniotomy, RCA occlusion, [employer]ELOPER shunt Seizure history GERD, dysphagia s/p GJ tube h/o Hypertension h/o Atrial fibrillation Previous DVT and Pulmonary Embolism, hypernatremia Plan events reviewed monitor HH for change J tube feeds O2 - taper; as able still on 50% nebs as needed Wound care Cardiology follow up [employer] Medications dc planning - awaiting CM and discussed impression, plan, and exam edited and reviewed in detail care discussed with Dylan Hebert MD Aug 09, 2020 15:15
[2020-08-09 16:00] VITALS: BP 110/63
--- NOTE | 2020-08-09 16:48 | Surgery Progress Note ---
Surgery Progress Note Subjective Symptoms: improved Objective Last 24 Hour Vital Signs Date Time Temp Pulse Resp B/P (MAP) Pulse Ox O2 Delivery O2 Flow Rate FiO2 08/09/20 13:59 92 T-Piece 12.0 50 08/09/20 12:00 97.5 92 22 102/63 (76) 96 124 08/09/20 12:00 92 08/09/20 09:45 125 106/64 08/09/20 09:00 Trach Collar 12.0 08/09/20 08:00 99.5 110 22 106/64 (78) 94 124 08/09/20 08:00 125 08/09/20 07:05 94 T-Piece 12.0 50 08/09/20 04:00 98.8 109 22 111/76 (88) 94 109 08/09/20 04:00 111 08/09/20 01:09 95 T-Piece 12.0 50 08/09/20 00:00 102 08/09/20 00:00 99.0 110 22 119/65 (83) 94 110 08/08/20 21:25 Trach Collar 12.0 08/08/20 20:39 114 110/78 08/08/20 20:24 99.0 114 20 104/61 (75) 93 08/08/20 20:00 107 08/08/20 19:11 95 T-Piece 12.0 50 I&O Intake and Output 08/08/20 08/09/20 19:00 07:00 Intake Total 1020 ml 400 ml Output Total 1300 ml Balance 1020 ml -900 ml Intake Free Water 300 ml 100 ml Tube Feeding 720 ml 300 ml Output Urine Total 800 ml Stool Total 500 ml # Voids 1 # Bowel Movements 1 Dressing: saturated Cardiovascular: RSR Respiratory: decreased breath sounds Abdomen: soft, flat, scaphoid, non-tender, absent bowel sounds, non-distended Extremities: other Laboratory Tests Test 08/09/20 07:13 White Blood Count 8.5 K/UL (4.8-10.8) Red Blood Count 3.12 M/UL (4.70-6.10) L Hemoglobin 8.4 G/DL (14.2-18.0) L Hematocrit 27.7 % (42.0-52.0) L Mean Corpuscular Volume 89 FL (80-99) Mean Corpuscular Hemoglobin 27.0 PG (27.0-31.0) Mean Corpuscular Hemoglobin Concent 30.3 G/DL (32.0-36.0) L Red Cell Distribution Width 16.3 % (11.6-14.8) H Platelet Count 376 K/UL (150-450) Mean Platelet Volume 6.2 FL (6.5-10.1) L Neutrophils (%) (Auto) 74.9 % (45.0-75.0) Lymphocytes (%) (Auto) 13.3 % (20.0-45.0) L Monocytes (%) (Auto) 9.5 % (1.0-10.0) Eosinophils (%) (Auto) 1.4 % (0.0-3.0) Basophils (%) (Auto) 0.9 % (0.0-2.0) Sodium Level 144 MMOL/L (136-145) Potassium Level 4.6 MMOL/L (3.5-5.1) Chloride Level 108 MMOL/L (98-107) H Carbon Dioxide Level 33 MMOL/L (21-32) H Anion Gap 4 mmol/L (5-15) L Blood Urea Nitrogen 38 mg/dL (7-18) H Creatinine 1.1 MG/DL (0.55-1.30) Estimat Glomerular Filtration Rate > 60 mL/min (>60) Glucose Level 114 MG/DL (74-106) H Calcium Level 9.1 MG/DL (8.5-10.1) Total Bilirubin 0.2 MG/DL (0.2-1.0) Aspartate Amino Transf (AST/SGOT) 24 U/L (15-37) Alanine Aminotransferase (ALT/SGPT) 25 U/L (12-78) Alkaline Phosphatase 110 U/L (46-116) Total Protein 7.2 G/DL (6.4-8.2) Albumin 1.0 G/DL (3.4-5.0) L Globulin 6.2 g/dL Albumin/Globulin Ratio 0.2 (1.0-2.7) L Plan Problems: (1) Decubitus skin ulcer Assessment & Plan: Pt presented on admission with PV shunt,Tracheostomy, Contractures and multiple Pressure Injuries.Skin assessed under tracheal collar. Skin is erythematous but without any open wounds. GT site is red and excoriated.Scattered senile purpuras bilat upper extremities. Full thickness Sacral Pressure Injury(L)11.8cm x (W)8cm. Base of wound is 75% mixed necrosis and slough,20% antonio. Bone is palpable at base. Edges are macerated. Mild odor noted. Small amt brown exudate noted. Periwound is indurated and maroon with additional erythema and scattered Partial thickness shearing. Full Thickness Pressure Injury L trochanteric with undermined borders.(L)5cm x (W)7cm x (D)2.6cm, undermining clockwise 11-2 by 4.2cm @11o'clock. Base of wound is 75%% mixed necrosis and slough,25% antonio. Wound has appearance of two wounds secondary necrotic bridge.In addition, periwound at clockwise 10-2o'clock the base is necrotic and fluctuant with marginal erythema. Small amt malodorous haemopurulent exudate noted. Full thickness Pressure Injury L Ischium(L)3.5cm x (W)2.0cm. Base of wound is 80% slough,20% antonio. Surrounding necrotic borders that are fluctuant.Small amt sanguineous exudate. Mild odor noted. Full thickness Pressure Injury lateral L Tibia to L lateral Malleolus(L)24.5cm x (W)3.5cm. Base of wound is antonio with scattered necrosis and slough, tendon exposure. Semi-detached borders that indurated and macerated with an area of so ft necrosis at proximal borders of wound. Small amt haemopurulent exudate noted. No odor noted. Full thickness Pressure Injury L Heel(L)10.3cm x (W)7.5cm. Base of wound is 60% necrotic,10% slough,30% antonio. Bone is palpable. Borders are indurated with a portion of borders rolled giving heel a shaved appearance. Moderate amt haemopurulent exudate. Mild odor noted.Periwound is purpuric and fluctuant. Full thickness Pressure Injury medial/lateral L foot(L)3.5cm x (W)3.5cm x (D)0.3cm. Base of wound is antonio. Borders and periwound are purpuric and fluctuant.Small amt sanguineous exudate noted. Unstageable Pressure Injury Distal/Lateral L foot(L)2.7cm x (W)4.3cm. Base of wound is 80% soft necrosis,20% antonio. Edges are adherent to base of wound. Periwound is purpuric and fluctuant. Full thickness Pressure Injury R heel Plantar(L)8.5cm x (W)9cm. Base of pressure with scattered necrosis and slough,otherwise base of wound is antonio. Edges are macerated with surrounding necrosis. Small amt seropurulent exudate noted.Mild odor noted. Stable dry eschar dorsal R foot1.5cm x (W)1cm. Edges are adherent to base of wound. No erythema,induration or fluctuance periwound. Stable dry eschar distal/lateral R foot (L)0.8cm x (W)0.8cm. NO erythema,induration or fluctuance periwound. R foot is edematous. Tx.Plan: Cleanse Sacral wound with Dakin's Kristel 0.25%. Apply Dakin's moistened kerlix to wound. Apply Triad periwound. Cover with Optifoam drsg. Change Daily and prn. Cleanse L trochanteric Wound with Dakin's Kristel 0.25%. Loosely pack with Dakin's moistened Kerlix, Apply Moisture Barrier Periwound. Cover with Optifoam drsg Daily and prn. Cleanse R Ischial wound with Dakin's Kristel 0.25%. Apply Dakin's moistened gauze to wound. Apply Moisture Barrier Paste periwound. Cover with Optifoam drsg Daily and prn. Cleanse wounds Lateral R lower extremity, R Heel and Lateral R foot with Dakin's Kristel 0.25%. Place Dakin's Moistened gauze to wounds. Apply Triad Paste along edges of wound. Cover wounds with ABD Pads. Wrap with Kerlix from Base of toes. Cleanse wound R heel with Dakin's Kristel 0.25%. Apply Dakin's moistened Gauze to wound. Apply Triad Periwound. Cover with ABD PAd and wrap with Kerlix. Swab dry Eschar dorsal and Lateral aspect of R foot .Cover with Abd Pads and Wrap with Kerlix Daily and prn. Wash GT site with Soap and water. Apply Triad Paste Daily and prn(Leave Open to Air) Reposition at least every 2hours or as tolerated. Place Pillow Between Knees. Off-Load Heels with Pillow. APM/TERRIE Mattress overlay. Loose non-viable tissue of R Heel removed by . Scattered slough at base of wound. Wound is malodorous. Cleansed with Dakin's 0.25% kristel. Dakin's moistened gauze applied . Triad Paste applied along borders. Covered with ABD pad and wrapped with Kerlix. Wound Lateral L Tibia re-evaluated . Base of wound is moist,granular, small area of bone and tendon exposure. noted. Small amt sanguineous exudate noted. No odor noted . Edges are adherent to base of wound. No evidence of additional skin breakdown periwound . New Tx orders received from for Promogran. Tx amended and applied as per Md's orders. Tx.Plan:Cleanse Lateral L Tibia with Saline. Apply Promogran to wound. Cover with ABD Pad. Wrap with Kerlix. Change every Oxq-Iae-Fjfxnc. (2) Anemia Assessment & Plan: trend h/h prbc prn (3) UTI (urinary tract infection) (4) Pleural effusion, left Assessment & Plan: Lungs: Hazy left lung attenuation could be due to consolidation, pulmonary edema; correlate with presentation. Retrocardiac atelectasis without or with consolidation. Pleural space: Small-moderate left pleural effusion with passive atelectasis. No pneumothorax. Heart: Unremarkable. No cardiomegaly. Mediastinum: Unremarkable. Bones/joints: No acute abnormality Tubes, lines and devices: Tracheostomy. Right upper extremity PICC tip in the mid SVC. IMPRESSION: 1. Tracheostomy. 2. Right upper extremity PICC tip in the mid SVC. 3. Small-moderate left pleural effusion with passive atelectasis. 4. Hazy left lung attenuation could be due to consolidation, pulmonary edema; correlate with presentation. 5. Retrocardiac atelectasis without or with consolidation. 6. Recommend CT chest with IV contrast to further characterize these findings. (5) Malfunction of gastrostomy tube Assessment & Plan: DAILY ESTIMATED NEEDS: Needs based on Wounds, pulmonary/ 74.5kg 25-30 kcals/kg 8723-1506 total kcals 1.5-2 g protein/kg 111-149 g total protein 25-30 mL/kg 1594-4545 total fluid mLs NUTRITION DIAGNOSIS: * Swallowing difficulty R/T dysphagia, h/o craniotomy, respiratory failure as evidenced by pt on T-collar, GJ tube dependent. * Increased kcal/prot/micronutrients needs R/T wound healing as evidenced by pt admitted w/ multiple advanced wounds including full thickness wound x 7 and unstageable wounds x 2, refer to eval. CURRENT TF:Jevity 1.2 @ 60ml/hr x 24 hrs-> now Glucerna 1.2 ENTERAL NUTRITION RECOMMENDATIONS: Glucerna 1.2 @ 65ml/hr x 24 hrs + Prosource 1pkt TID to provide 1560ml, 1872kcal, 94g+ 33g prot, 1259ml free water * Increase goal rate to 65ml/hr x 24 hrs to better meet est needs * Add Prosource 1pkt TID to meet increased protein needs * HOB over 30 degrees/ water flush 150ml q 6hrs without IVF ADDITIONAL RECOMMENDATIONS: * Calibrated bedscale wt * Wound Care: Con't Vit C 500mg BID, ZnSO4 220mg QD x 10 days add Stevie BID * Monitor BGs, need for carb controlled TF -> now on Glucerna 1.2 * Monitor lytes, replete as needed (6) Acute respiratory failure with hypoxia (7) HCAP (healthcare-associated pneumonia) Deny Westfall Aug 09, 2020 16:48
[2020-08-09] MEDS: Amiodarone 200mg tab GT SCH (17:38)
--- NOTE | 2020-08-09 18:52 | Neurology Progress Note ---
Interim History Interim History ROS Limited/Unobtainable: Yes Interim History no seizures, remains lethargic Objective Physical Exam Last Vital Signs Date Time Temp Pulse Resp B/P (MAP) Pulse Ox O2 Delivery O2 Flow Rate FiO2 08/09/20 16:00 102 08/09/20 16:00 98.6 22 110/63 (79) 94 08/09/20 13:59 T-Piece 12.0 50 Laboratory Tests Test 08/09/20 07:13 White Blood Count 8.5 K/UL (4.8-10.8) Red Blood Count 3.12 M/UL (4.70-6.10) L Hemoglobin 8.4 G/DL (14.2-18.0) L Hematocrit 27.7 % (42.0-52.0) L Mean Corpuscular Volume 89 FL (80-99) Mean Corpuscular Hemoglobin 27.0 PG (27.0-31.0) Mean Corpuscular Hemoglobin Concent 30.3 G/DL (32.0-36.0) L Red Cell Distribution Width 16.3 % (11.6-14.8) H Platelet Count 376 K/UL (150-450) Mean Platelet Volume 6.2 FL (6.5-10.1) L Neutrophils (%) (Auto) 74.9 % (45.0-75.0) Lymphocytes (%) (Auto) 13.3 % (20.0-45.0) L Monocytes (%) (Auto) 9.5 % (1.0-10.0) Eosinophils (%) (Auto) 1.4 % (0.0-3.0) Basophils (%) (Auto) 0.9 % (0.0-2.0) Sodium Level 144 MMOL/L (136-145) Potassium Level 4.6 MMOL/L (3.5-5.1) Chloride Level 108 MMOL/L (98-107) H Carbon Dioxide Level 33 MMOL/L (21-32) H Anion Gap 4 mmol/L (5-15) L Blood Urea Nitrogen 38 mg/dL (7-18) H Creatinine 1.1 MG/DL (0.55-1.30) Estimat Glomerular Filtration Rate > 60 mL/min (>60) Glucose Level 114 MG/DL (74-106) H Calcium Level 9.1 MG/DL (8.5-10.1) Total Bilirubin 0.2 MG/DL (0.2-1.0) Aspartate Amino Transf (AST/SGOT) 24 U/L (15-37) Alanine Aminotransferase (ALT/SGPT) 25 U/L (12-78) Alkaline Phosphatase 110 U/L (46-116) Total Protein 7.2 G/DL (6.4-8.2) Albumin 1.0 G/DL (3.4-5.0) L Globulin 6.2 g/dL Albumin/Globulin Ratio 0.2 (1.0-2.7) L Head: normocophalic Neck: no rigidity EENT: benign Neurologic Exam Objective lethargic, pupils reactive not following withdraws to pain Impression/Recommendations Problems: (1) Malfunction of gastrostomy tube (2) Anemia (3) Pleural effusion, left (4) Acute respiratory failure with hypoxia (5) HCAP (healthcare-associated pneumonia) (6) UTI (urinary tract infection) Status: stable, progressing Diagnostic Impression Recurrent sepsis Possible aspiration Encephalopathy, acute on chronic rule out seizures map > 65 ro covid cont atb fu cultures no need for AED now Gerson Singh MD Aug 09, 2020 18:52
--- NOTE | 2020-08-09 18:55 | NUR ---
NURSE HAND-OFF REPORT: Important Events on Shift: No acute distress noted. Patient Status: [stable] Diet: [Tube feeding- Glucerna 1.2 60ml/hr] Pending Orders: [] Pending Results/Labs:[] Pending MD notification:[] Latest Vital Signs: Temperature 98.6 , Pulse 102 , B/P 110 /63 , Respiratory Rate 22 , O2 SAT 94 , Trach Collar, O2 Flow Rate 12.0 . Vital Sign Comment: [] EKG Rhythm: Sinus Tachycardia Rhythm change?: N Notified?: N -Dr. Aubree VALDEZ Response: Message left await call Latest Ramirez Fall Score: 50 Fall Risk: High Risk Safety Measures: Call light Within Reach, Bed Alarm Zone 1, Side Rails Side Rails x2, Bed position Low and Locked. Fall Precautions: Patient Fall Education
--- NOTE | 2020-08-09 19:30 | NUR ---
HAND-OFF: Report given to SELIN Aceves. Round is made.
--- NOTE | 2020-08-09 19:35 | NUR ---
NURSE NOTES: Patient received from SELIN Covarrubias. Patient is currently sleeping at bedside. Patient has a trach collar at 12 L with an FiO2 of 50%, no signs of respiratory distress noted. Patient has a GT with gulcerna 1.2 running at 60 ml/hr. Patient has a rectal tube, patent and draining. Patient has a 16 ar[place] [address] catheter, patent and draining. Patient is noted to have multiple skin issues and is covered with dressing. Patient has a PICC line on his right upper arm, patent and flushed. Bed is in the lowest position and locked, call light within reach. Will continue to monitor.
[2020-08-09 20:00] VITALS: BP 118/69
[2020-08-09] MEDS: Atorvastatin 20mg tab ORAL SCH (21:10)
[2020-08-09] MEDS: Dyna-Hex 2% Top Sol 2oz TOPIC SCH (21:10)
[2020-08-10] VITALS: BP 104/61
--- NOTE | 2020-08-10 02:02 | Cardiology Progress Note ---
Subjective DATE OF SERVICE: Aug 09, 2020 Withdrawn and not following commands. No new bleeding; remains off anticoagulation. BP parameters stabilized. Monitor: Sinus arrhythmia with PAC's; rare paroxysms of AFib/flutter persist. Objective Last 24 Hour Vital Signs Date Time Temp Pulse Resp B/P (MAP) Pulse Ox O2 Delivery O2 Flow Rate FiO2 08/10/20 01:30 97 T-Piece 12.0 50 08/10/20 00:00 91 08/10/20 00:00 98.9 98 20 104/61 (75) 98 90 08/09/20 21:11 97 118/69 08/09/20 21:00 Trach Collar 12.0 08/09/20 20:00 98.9 97 20 118/69 (85) 98 97 08/09/20 20:00 97 08/09/20 19:50 96 T-Piece 12.0 50 08/09/20 16:00 102 08/09/20 16:00 98.6 102 22 110/63 (79) 94 103 08/09/20 13:59 92 T-Piece 12.0 50 08/09/20 12:00 97.5 92 22 102/63 (76) 96 124 08/09/20 12:00 92 08/09/20 09:45 125 106/64 08/09/20 09:00 Trach Collar 12.0 08/09/20 08:00 99.5 110 22 106/64 (78) 94 124 08/09/20 08:00 125 08/09/20 07:05 94 T-Piece 12.0 50 08/09/20 04:00 98.8 109 22 111/76 (88) 94 109 08/09/20 04:00 111 ROS: unchanged from 07/14/20 HEENT: Thick Trach secretions RHYTHM: NSR, ST, PACs, Afib LUNGS: bilateral rhonchi, other - decreased BS left base CARDIAC: normal S1 and S2, rapid rate, arrhythmia ABDOMEN: normal bowel sounds, soft, G-Tube intact EXTREMITIES: normal range of motion, non-tender, trace edema, other - withdrawn Laboratory Tests Test 08/09/20 07:13 White Blood Count 8.5 K/UL (4.8-10.8) Red Blood Count 3.12 M/UL (4.70-6.10) L Hemoglobin 8.4 G/DL (14.2-18.0) L Hematocrit 27.7 % (42.0-52.0) L Mean Corpuscular Volume 89 FL (80-99) Mean Corpuscular Hemoglobin 27.0 PG (27.0-31.0) Mean Corpuscular Hemoglobin Concent 30.3 G/DL (32.0-36.0) L Red Cell Distribution Width 16.3 % (11.6-14.8) H Platelet Count 376 K/UL (150-450) Mean Platelet Volume 6.2 FL (6.5-10.1) L Neutrophils (%) (Auto) 74.9 % (45.0-75.0) Lymphocytes (%) (Auto) 13.3 % (20.0-45.0) L Monocytes (%) (Auto) 9.5 % (1.0-10.0) Eosinophils (%) (Auto) 1.4 % (0.0-3.0) Basophils (%) (Auto) 0.9 % (0.0-2.0) Sodium Level 144 MMOL/L (136-145) Potassium Level 4.6 MMOL/L (3.5-5.1) Chloride Level 108 MMOL/L (98-107) H Carbon Dioxide Level 33 MMOL/L (21-32) H Anion Gap 4 mmol/L (5-15) L Blood Urea Nitrogen 38 mg/dL (7-18) H Creatinine 1.1 MG/DL (0.55-1.30) Estimat Glomerular Filtration Rate > 60 mL/min (>60) Glucose Level 114 MG/DL (74-106) H Calcium Level 9.1 MG/DL (8.5-10.1) Total Bilirubin 0.2 MG/DL (0.2-1.0) Aspartate Amino Transf (AST/SGOT) 24 U/L (15-37) Alanine Aminotransferase (ALT/SGPT) 25 U/L (12-78) Alkaline Phosphatase 110 U/L (46-116) Total Protein 7.2 G/DL (6.4-8.2) Albumin 1.0 G/DL (3.4-5.0) L Globulin 6.2 g/dL Albumin/Globulin Ratio 0.2 (1.0-2.7) L Assessment/Plan Assessment/Plan Healthcare associated PNA Paroxysmal atrial fibrillation/flutter Paroxysmal atrial ectopy 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 Dyslipidemia on high dose statin - now dose adjusted Dehydration/hypernatremia Severe protein-calorie malnutrition Multiple wounds Anemia - s/p tx Maintain current beta blockade dose. Abx Resp support Cardiac monitoring Statin dose adjusted Amiodarone at maintenance dose now Free water replacement as needed; off IVF for now. Hold anticoagulation due to bleeding risk Dylan Mak MD Aug 10, 2020 02:02
[2020-08-10 04:00] VITALS: BP 108/64
--- NOTE | 2020-08-10 07:10 | NUR ---
NURSE NOTES: Received patient report from SELNI Aceves. Patient is AO x1, in bed asleep at this time. Patient is on Trach 12L with FiO2 50% Satting at 92%. No pain or discomfort noted at this time. Patient has a GT with gulcerna 1.2 running at 60 ml/hr, patent and intact. Patient has a 16 malag[place] valles catheter, patent and draining.Patient has a PICC line on his right upper arm, patent and flushed. Bed is in the lowest position and locked with side rails x2 up. Call light within reach.
--- NOTE | 2020-08-10 07:20 | NUR ---
NURSE HAND-OFF REPORT: Important Events on Shift:[Patient's wound dressing has been changed. Wound photo has been taken.] Patient Status: [Stable] Diet: [Glucerna 1.2 at 60 ml/hr] Pending Orders: [] Pending Results/Labs:[] Pending MD notification:[] Latest Vital Signs: Temperature 98.5 , Pulse 91 , B/P 108 /64 , Respiratory Rate 20 , O2 SAT 98 , Trach Collar, O2 Flow Rate 12.0 . Vital Sign Comment: [] EKG Rhythm: Sinus Tachycardia Rhythm change?: Y Notified?: N -Dr. Aubree VALDEZ Response: Message left await call Latest Ramirez Fall Score: 50 Fall Risk: High Risk Safety Measures: Call light Within Reach, Bed Alarm Zone 1, Side Rails Side Rails x2, Bed position Low and Locked. Fall Precautions: Patient Fall Education Report given to [SELIN Landaverde].
[2020-08-10 08:00] VITALS: BP 127/73
[2020-08-10] MEDS: Metoprolol Tartrate 50mg tab ORAL SCH ×3 (08:57→21:53)
[2020-08-10] MEDS: Ascorbic Acid 500mg tab GT SCH ×2 (08:57→17:15)
[2020-08-10] MEDS: Zinc Sulfate 220mg GT SCH (08:57)
[2020-08-10] MEDS: Dakin's 0.25% (Half Strength) 16oz TOPIC SCH (09:10)
--- NOTE | 2020-08-10 10:28 | General Progress Note ---
Subjective ROS Limited/Unobtainable: No Allergies: Coded Allergies: No Known Allergies (Unverified , 11/02/19) Objective Last 24 Hour Vital Signs Date Time Temp Pulse Resp B/P (MAP) Pulse Ox O2 Delivery O2 Flow Rate FiO2 08/10/20 09:00 Trach Collar 12.0 08/10/20 08:57 107 127/73 08/10/20 08:00 99.1 107 22 127/73 (91) 93 08/10/20 08:00 106 08/10/20 04:00 98.5 91 20 108/64 (79) 98 08/10/20 04:00 105 08/10/20 01:30 97 T-Piece 12.0 50 08/10/20 00:00 91 08/10/20 00:00 98.5 90 20 104/61 (75) 98 08/09/20 21:11 97 118/69 08/09/20 21:00 Trach Collar 12.0 08/09/20 20:00 98.9 97 20 118/69 (85) 98 97 08/09/20 20:00 97 08/09/20 19:50 96 T-Piece 12.0 50 08/09/20 16:00 102 08/09/20 16:00 98.6 102 22 110/63 (79) 94 103 08/09/20 13:59 92 T-Piece 12.0 50 08/09/20 12:00 97.5 92 22 102/63 (76) 96 124 08/09/20 12:00 92 Intake and Output 08/09/20 08/10/20 19:00 07:00 Intake Total 60 ml 860 ml Output Total 500 ml 400 ml Balance -440 ml 460 ml Intake Free Water 200 ml Tube Feeding 60 ml 660 ml Output Urine Total 500 ml 400 ml # Voids 1 # Bowel Movements 2 Height (Feet): 5 Height (Inches): 4.00 Weight (Pounds): 171 General Appearance: no apparent distress EENT: normal ENT inspection Neck: supple Cardiovascular: normal rate Respiratory/Chest: decreased breath sounds Abdomen: normal bowel sounds, non tender, soft Extremities: non-tender Assessment/Plan Status: stable, progressing Assessment/Plan: Assessment - UGIB - resolved - Anemia, s/p transfusion - h/o PUD - resp failure, s/p trach - dysphagia, s/p PEG - atrial fibrillation - h/o DVT - hypernatremia Recommendations - anticoagulation - H2B BID indefinitely - TF - free water - follow H&H Kevin Garcias MD Aug 10, 2020 10:28
--- NOTE | 2020-08-10 10:45 | Surgery Progress Note ---
Surgery Progress Note Subjective Additional Comments no acute events Objective Last 24 Hour Vital Signs Date Time Temp Pulse Resp B/P (MAP) Pulse Ox O2 Delivery O2 Flow Rate FiO2 08/10/20 09:00 Trach Collar 12.0 08/10/20 08:57 107 127/73 08/10/20 08:00 99.1 107 22 127/73 (91) 93 08/10/20 08:00 106 08/10/20 04:00 98.5 91 20 108/64 (79) 98 08/10/20 04:00 105 08/10/20 01:30 97 T-Piece 12.0 50 08/10/20 00:00 91 08/10/20 00:00 98.5 90 20 104/61 (75) 98 08/09/20 21:11 97 118/69 08/09/20 21:00 Trach Collar 12.0 08/09/20 20:00 98.9 97 20 118/69 (85) 98 97 08/09/20 20:00 97 08/09/20 19:50 96 T-Piece 12.0 50 08/09/20 16:00 102 08/09/20 16:00 98.6 102 22 110/63 (79) 94 103 08/09/20 13:59 92 T-Piece 12.0 50 08/09/20 12:00 97.5 92 22 102/63 (76) 96 124 08/09/20 12:00 92 I&O Intake and Output 08/09/20 08/10/20 19:00 07:00 Intake Total 60 ml 860 ml Output Total 500 ml 400 ml Balance -440 ml 460 ml Intake Free Water 200 ml Tube Feeding 60 ml 660 ml Output Urine Total 500 ml 400 ml # Voids 1 # Bowel Movements 2 Dressing: saturated Cardiovascular: RSR Respiratory: decreased breath sounds Abdomen: soft, non-tender, present bowel sounds Extremities: edema, no tenderness, no cyanosis, other Plan Problems: (1) Decubitus skin ulcer Assessment & Plan: Pt presented on admission with PV shunt,Tracheostomy, Con tractures and multiple Pressure Injuries.Skin assessed under tracheal collar. Skin is erythematous but without any open wounds. GT site is red and excoriated.Scattered senile purpuras bilat upper extremities. Full thickness Sacral Pressure Injury(L)11.8cm x (W)8cm. Base of wound is 75% mixed necrosis and slough,20% antonio. Bone is palpable at base. Edges are macerated. Mild odor noted. Small amt brown exudate noted. Periwound is indurated and maroon with additional erythema and scattered Partial thickness sh earing. Full Thickness Pressure Injury L trochanteric with undermined borders.(L)5cm x (W)7cm x (D)2.6cm, undermining clockwise 11-2 by 4.2cm @11o'clock. Base of wound is 75%% mixed necrosis and slough,25% antonio. Wound has appearance of two wounds secondary necrotic bridge.In addition, periwound at clockwise 10-2o'clock the base is necrotic and fluctuant with marginal erythema. Small amt malodorous haemopurulent exudate noted. Full thickness Pressure Injury L Ischium(L)3.5cm x (W)2.0cm. Base of wound is 8 0% slough,20% antonio. Surrounding necrotic borders that are fluctuant.Small amt sanguineous exudate. Mild odor noted. Full thickness Pressure Injury lateral L Tibia to L lateral Malleolus(L)24.5cm x (W)3.5cm. Base of wound is antonio with scattered necrosis and slough, tendon exposure. Semi-detached borders that indurated and macerated with an area of soft necrosis at proximal borders of wound. Small amt haemopurulent exudate noted. No odor noted. Full thickness Pressure Injury L Heel(L)10.3cm x (W)7.5cm. Base of wound is 60% necrotic,10% slough,30% antonio. Bone is palpable. Borders are indurated with a portion of borders rolled giving heel a shaved appearance. Moderate amt haemopurulent exudate. Mild odor noted.Periwound is purpuric and fluctuant. Full thickness Pressure Injury medial/lateral L foot(L)3.5cm x (W)3.5cm x (D)0.3cm. Base of wound is antonio. Borders and periwound are purpuric and fluctuant.Small amt sanguineous exudate noted. Unstageable Pressure Injury Distal/Lateral L foot(L)2.7cm x (W)4.3cm. Base of wound is 80% soft necrosis,20% antonio. Edges are adherent to base of wound. Periwound is purpuric and fluctuant. Full thickness Pressure Injury R heel Plantar(L)8.5cm x (W)9cm. Base of pressure with scattered necrosis and slough,otherwise base of wound is antonio. Edges are macerated with surrounding necrosis. Small amt seropurulent exudate noted.Mild odor noted. Stable dry eschar dorsal R foot1.5cm x (W)1cm. Edges are adherent to base of wound. No erythema,induration or fluctuance periwound. Stable dry eschar distal/lateral R foot (L)0.8cm x (W)0.8cm. NO erythema,induration or fluctuance periwound. R foot is edematous. Tx.Plan: Cleanse Sacral wound with Dakin's Kristel 0.25%. Apply Dakin's moistened kerlix to wound. Apply Triad periwound. Cover with Optifoam drsg. Change Daily and prn. Cleanse L trochanteric Wound with Dakin's Kristel 0.25%. Loosely pack with Dakin's moistened Kerlix, Apply Moisture Barrier Periwound. Cover with Optifoam drsg Daily and prn. Cleanse R Ischial wound with Dakin's Kristel 0.25%. Apply Dakin's moistened gauze to wound. Apply Moisture Barrier Paste periwound. Cover with Optifoam drsg Daily and prn. Cleanse wounds Lateral R lower extremity, R Heel and Lateral R foot with Dakin's Kristel 0.25%. Place Dakin's Moistened gauze to wounds. Apply Triad Paste along edges of wound. Cover wounds with ABD Pads. Wrap with Kerlix from Base of toes. Cleanse wound R heel with Dakin's Kristel 0.25%. Apply Dakin's moistened Gauze to wound. Apply Triad Periwound. Cover with ABD PAd and wrap with Kerlix. Swab dry Eschar dorsal and Lateral aspect of R foot .Cover with Abd Pads and Wrap with Kerlix Daily and prn. Wash GT site with Soap and water. Apply Triad Paste Daily and prn(Leave Open to Air) Reposition at least every 2hours or as tolerated. Place Pillow Between Knees. Off-Load Heels with Pillow. APM/TERRIE Mattress overlay. Loose non-viable tissue of R Heel removed by . Scattered slough at base of wound. Wound is malodorous. Cleansed with Dakin's 0.25% kristel. Dakin's moistened gauze applied . Triad Paste applied along borders. Covered with ABD pad and wrapped with Kerlix. Wound Lateral L Tibia re-evaluated . Base of wound is moist,granular, small area of bone and tendon exposure. noted. Small amt sanguineous exudate noted. No odor noted . Edges are adherent to base of wound. No evidence of additional skin breakdown periwound . New Tx orders received from for Promogran. Tx amended and applied as per Md's orders. Tx.Plan:Cleanse Lateral L Tibia with Saline. Apply Promogran to wound. Cover with ABD Pad. Wrap with Kerlix. Change every Lyi-Kxw-Ulfeit. (2) Anemia Assessment & Plan: trend h/h prbc prn (3) UTI (urinary tract infection) (4) Pleural effusion, left Assessment & Plan: Lungs: Hazy left lung attenuation could be due to consolidation, pulmonary edema; correlate with presentation. Retrocardiac atelectasis without or with consolidation. Pleural space: Small-moderate left pleural effusion with passive atelectasis. No pneumothorax. Heart: Unremarkable. No cardiomegaly. Mediastinum: Unremarkable. Bones/joints: No acute abnormality Tubes, lines and devices: Tracheostomy. Right upper extremity PICC tip in the mid SVC. IMPRESSION: 1. Tracheostomy. 2. Right upper extremity PICC tip in the mid SVC. 3. Small-moderate left pleural effusion with passive atelectasis. 4. Hazy left lung attenuation could be due to consolidation, pulmonary edema; correlate with presentation. 5. Retrocardiac atelectasis without or with consolidation. 6. Recommend CT chest with IV contrast to further characterize these findings. (5) Malfunction of gastrostomy tube Assessment & Plan: DAILY ESTIMATED NEEDS: Needs based on Wounds, pulmonary/ 74.5kg 25-30 kcals/kg 2891-0896 total kcals 1.5-2 g protein/kg 111-149 g total protein 25-30 mL/kg 5875-5843 total fluid mLs NUTRITION DIAGNOSIS: * Swallowing difficulty R/T dysphagia, h/o craniotomy, respiratory failure as evidenced by pt on T-collar, GJ tube dependent. * Increased kcal/prot/micronutrients needs R/T wound healing as evidenced by pt admitted w/ multiple advanced wounds including full thickness wound x 7 and unstageable wounds x 2, refer to WC eval. CURRENT TF:Jevity 1.2 @ 60ml/hr x 24 hrs-> now Glucerna 1.2 ENTERAL NUTRITION RECOMMENDATIONS: Glucerna 1.2 @ 65ml/hr x 24 hrs + Prosource 1pkt TID to provide 1560ml, 18 72kcal, 94g+ 33g prot, 1259ml free water * Increase goal rate to 65ml/hr x 24 hrs to better meet est needs * Add Prosource 1pkt TID to meet increased protein needs * HOB over 30 degrees/ water flush 150ml q 6hrs without IVF ADDITIONAL RECOMMENDATIONS: * Calibrated bedscale wt * Wound Care: Con't Vit C 500mg BID, ZnSO4 220mg QD x 10 days add Stevie BID * Monitor BGs, need for carb controlled TF -> now on Glucerna 1.2 * Monitor lytes, replete as needed (6) Acute respiratory failure with hypoxia (7) HCAP (healthcare-associated pneumonia) Deny Westfall Aug 10, 2020 10:45
--- NOTE | 2020-08-10 11:42 | General Progress Note ---
Subjective ROS Limited/Unobtainable: No Constitutional: Reports: malaise, weakness HEENT: Reports: no symptoms Cardiovascular: Reports: no symptoms Respiratory: Reports: shortness of breath, sputum Gastrointestinal/Abdominal: Reports: difficulty swallowing Genitourinary: Reports: no symptoms Neurologic/Psychiatric: Reports: pre-existing deficit Endocrine: Reports: no symptoms Hematologic/Lymphatic: Reports: anemia Allergies: Coded Allergies: No Known Allergies (Unverified , 11/02/19) All Systems: reviewed and negative except above Subjective No significant events. Awake but nonverbal. Confused. Tolerating tube feeds. No reports of bleeding. Labs noted. On trach collar at 12 L. Objective Last 24 Hour Vital Signs Date Time Temp Pulse Resp B/P (MAP) Pulse Ox O2 Delivery O2 Flow Rate FiO2 08/10/20 09:00 Trach Collar 12.0 08/10/20 08:57 107 127/73 08/10/20 08:00 99.1 107 22 127/73 (91) 93 08/10/20 08:00 106 08/10/20 04:00 98.5 91 20 108/64 (79) 98 08/10/20 04:00 105 08/10/20 01:30 97 T-Piece 12.0 50 08/10/20 00:00 91 08/10/20 00:00 98.5 90 20 104/61 (75) 98 08/09/20 21:11 97 118/69 08/09/20 21:00 Trach Collar 12.0 08/09/20 20:00 98.9 97 20 118/69 (85) 98 97 08/09/20 20:00 97 08/09/20 19:50 96 T-Piece 12.0 50 08/09/20 16:00 102 08/09/20 16:00 98.6 102 22 110/63 (79) 94 103 08/09/20 13:59 92 T-Piece 12.0 50 08/09/20 12:00 97.5 92 22 102/63 (76) 96 124 08/09/20 12:00 92 Intake and Output 08/09/20 08/10/20 19:00 07:00 Intake Total 60 ml 860 ml Output Total 500 ml 400 ml Balance -440 ml 460 ml Intake Free Water 200 ml Tube Feeding 60 ml 660 ml Output Urine Total 500 ml 400 ml # Voids 1 # Bowel Movements 2 Height (Feet): 5 Height (Inches): 4.00 Weight (Pounds): 171 Objective General Appearance: WD/WN, confused EENT: normal ENT inspection Neck: normal alignment Cardiovascular: normal rate, regular rhythm Respiratory/Chest: rhonchi - bilaterally Abdomen: normal bowel sounds, non tender, soft, no organomegaly Edema: no edema noted Leg (L), no edema noted Leg (R) Neurologic: disoriented, aphasia Skin: normal pigmentation Assessment/Plan Problem List: (1) Anemia ICD Codes: D64.9 - Anemia, unspecified SNOMED: 719640446, 702184248 Qualifiers: Qualified Codes: D50.0 - Iron deficiency anemia secondary to blood loss (chronic) (2) Pleural effusion, left ICD Codes: J90 - Pleural effusion, not elsewhere classified SNOMED: 14062711, 517474983 (3) Malfunction of gastrostomy tube ICD Codes: K94.23 - Gastrostomy malfunction SNOMED: 257068746 (4) Acute respiratory failure with hypoxia ICD Codes: J96.01 - Acute respiratory failure with hypoxia SNOMED: 79215476, 281714889 (5) HCAP (healthcare-associated pneumonia) ICD Codes: J18.9 - Pneumonia, unspecified organism SNOMED: 568637864, 724906203 Status: stable, progressing Assessment/Plan: Continue trach collar. Oxygen as needed Keep sats greater than 92% Pulmonary toilet suctioning G-tube feeds Monitor residuals Cautious resumption of anticoagulation-cleared by GI Continue H2 ezekiel Monitor lites IV fluids as needed Turn every 2 hours Poor long-term prognosis for meaningful recovery Angel Jaramillo MD Aug 10, 2020 11:42
[2020-08-10 12:00] VITALS: BP 113/68
--- NOTE | 2020-08-10 15:03 | Pulmonology Progress Note ---
Subjective ROS Limited/Unobtainable: No Allergies: Coded Allergies: No Known Allergies (Unverified , 11/02/19) All Systems: reviewed and negative except above Objective Last 24 Hour Vital Signs Date Time Temp Pulse Resp B/P (MAP) Pulse Ox O2 Delivery O2 Flow Rate FiO2 08/10/20 12:00 99.5 98 20 113/68 (83) 94 08/10/20 12:00 99 08/10/20 09:00 Trach Collar 12.0 08/10/20 08:57 107 127/73 08/10/20 08:00 99.1 107 22 127/73 (91) 93 08/10/20 08:00 106 08/10/20 04:00 98.5 91 20 108/64 (79) 98 08/10/20 04:00 105 08/10/20 01:30 97 T-Piece 12.0 50 08/10/20 00:00 91 08/10/20 00:00 98.5 90 20 104/61 (75) 98 08/09/20 21:11 97 118/69 08/09/20 21:00 Trach Collar 12.0 08/09/20 20:00 98.9 97 20 118/69 (85) 98 97 08/09/20 20:00 97 08/09/20 19:50 96 T-Piece 12.0 50 08/09/20 16:00 102 08/09/20 16:00 98.6 102 22 110/63 (79) 94 103 Intake and Output 08/09/20 08/10/20 19:00 07:00 Intake Total 60 ml 860 ml Output Total 500 ml 400 ml Balance -440 ml 460 ml Intake Free Water 200 ml Tube Feeding 60 ml 660 ml Output Urine Total 500 ml 400 ml # Voids 1 # Bowel Movements 2 Current Medications Medications (Trade) Dose Ordered Sig/Clive Route PRN Reason Start Time Stop Time Status Last Admin Dose Admin Acetaminophen (Tylenol) 650 mg Q4H PRN GT Temp >100.5 07/18/20 09:30 08/17/20 09:29 08/05/20 13:22 Acetaminophen (Tylenol) 650 mg Q4H PRN RECTAL Temp >100.5 07/14/20 13:30 08/13/20 13:29 Amiodarone HCl (Cordarone) 200 mg DAILY@1800 GT 07/30/20 18:00 10/28/20 17:59 08/09/20 17:38 Ascorbic Acid (Vitamin C) 250 mg TWICE A DAY GT 07/16/20 18:00 08/15/20 17:59 08/10/20 08:57 Atorvastatin Calcium (Lipitor) 10 mg BEDTIME ORAL 08/05/20 21:00 10/22/20 20:59 08/09/20 21:10 Chlorhexidine Gluconate (Jennifer-Hex 2%) 1 applic DAILY@2000 TOPIC 07/17/20 20:00 10/15/20 19:59 08/09/20 21:10 Famotidine (Pepcid) 20 mg Q12HR GT 07/16/20 21:00 10/14/20 20:59 08/10/20 08:57 Finasteride (Proscar) 5 mg DAILY ORAL 07/15/20 09:00 10/13/20 08:59 08/10/20 08:57 Hydralazine HCl (Apresoline) 25 mg Q6H PRN GT SBP above 150 07/24/20 23:30 10/22/20 23:29 07/26/20 05:22 Levetiracetam (Keppra) 1,000 mg Q12HR ORAL 07/14/20 21:00 08/13/20 20:59 08/10/20 09:10 Metoprolol Tartrate (Lopressor) 50 mg Q12HR ORAL 07/25/20 22:15 10/23/20 22:14 08/10/20 08:57 Multivitamins (Multivitamins) 1 tab DAILY GT 07/17/20 09:00 08/16/20 08:59 08/10/20 08:57 Sodium Hypochlorite (Dakin's Half Strength) 1 applic DAILY TOPIC 07/16/20 13:00 08/15/20 12:59 08/10/20 09:10 Zinc Sulfate (Zinc Sulfate) 220 mg DAILY GT 07/27/20 09:00 10/25/20 08:59 08/10/20 08:57 Assessment/Plan Assessment/Plan Pulmonary Progress Note Subjective HPI: Patient is a 69 year old man, Tracheostomy status, s/p previous Craniotomy, RCA occlusion, GENERAL PEDIATRICIAN shunt, has Seizure history, GERD, GJ tube, h/o Hypertension, Atrial fibrillation,previous anemia, previous DVT and Pulmonary Embolism, recurrent left Pleural effusion. Chief complaint was complaint respiratory distress, had difficulty suctioning patient. No reported fever chills but no reported nausea vomiting or diarrhea. Nonverbal status. Stable on TC Admitted with Pneumonia and small left pleural effusion, Covid 19 negative. Allergies: No Known Allergies Medications: Noted Past Medical History: Tracheostomy status, s/p previous Craniotomy, RCA occlusion, GENERAL PEDIATRICIAN shunt, has Seizure history, GERD, GJ tube, h/o Hypertension, Atrial fibrillation,previous anemia, previous DVT and Pulmonary Embolism, recurrent left Pleural effusion. Past Surgical History: Craniotomy, Tracheostomy, G tube Pertinent Family History: NC Social History: NC All Other Systems: limited Objective Physical Exam Vital Signs Noted General Appearance: alert, mild distress, Chronically Ill Head: normocephalic, atraumatic Eyes: bilateral eye PERRL, bilateral eye EOMI ENT: hearing grossly normal, normal pharynx Neck: no meningismus, tracheotomy Respiratory: chest non-tender, CTAB Cardiovascular: regular rate, rhythm, HS1, HS2 normal,no murmur Gastrointestinal: normal bowel sounds, non tender, no mass, no organomegaly, no bruit, non-distended Musculoskeletal: other - Contracted,decubitus LE dressings Neurologic: no focal signs noted,no seizures Assessment/Plan Impression: Healthcare-associated pneumonia Acute respiratory failure with hypoxia Tracheostomy status Pleural effusion, left-recurrent Decubitus ulcers Urinary tract infection Anemia S/p previous Craniotomy, RCA occlusion, GENERAL PEDIATRICIAN shunt Seizure history GERD, dysphagia s/p GJ tube h/o Hypertension h/o Atrial fibrillation Previous DVT and Pulmonary Embolism, hypernatremia Plan events reviewed monitor HH for change J tube feeds O2 - taper; as able still on 50% nebs as needed Wound care Cardiology follow up [employer] Medications dc planning - awaiting CM and discussed impression, plan, and exam edited and reviewed in detail care discussed with Dylan Hebert MD Aug 10, 2020 15:03
[2020-08-10 16:00] VITALS: BP 108/62
--- NOTE | 2020-08-10 16:40 | Cardiology Progress Note ---
Subjective DATE OF SERVICE: Aug 10, 2020 Withdrawn and non-verbal No new bleeding; remains off anticoagulation. BP parameters stabilized. Monitor: AFib/flutter persisting with increased ventricular rates now. Objective Last 24 Hour Vital Signs Date Time Temp Pulse Resp B/P (MAP) Pulse Ox O2 Delivery O2 Flow Rate FiO2 08/10/20 16:00 99.3 104 20 108/62 (77) 93 08/10/20 12:00 99.5 98 20 113/68 (83) 94 08/10/20 12:00 99 08/10/20 09:00 Trach Collar 12.0 08/10/20 08:57 107 127/73 08/10/20 08:00 99.1 107 22 127/73 (91) 93 08/10/20 08:00 106 08/10/20 04:00 98.5 91 20 108/64 (79) 98 08/10/20 04:00 105 08/10/20 01:30 97 T-Piece 12.0 50 08/10/20 00:00 91 08/10/20 00:00 98.5 90 20 104/61 (75) 98 08/09/20 21:11 97 118/69 08/09/20 21:00 Trach Collar 12.0 08/09/20 20:00 98.9 97 20 118/69 (85) 98 97 08/09/20 20:00 97 08/09/20 19:50 96 T-Piece 12.0 50 ROS: unchanged from 07/14/20 HEENT: Thick Trach secretions RHYTHM: NSR, ST, PACs, Afib LUNGS: bilateral rhonchi, other - decreased BS left base CARDIAC: normal S1 and S2, rapid rate, arrhythmia ABDOMEN: normal bowel sounds, soft, G-Tube intact EXTREMITIES: normal range of motion, non-tender, trace edema, other - withdrawn Assessment/Plan Assessment/Plan Healthcare associated PNA Paroxysmal atrial fibrillation/flutter Paroxysmal atrial ectopy Hx ICB with craniotomy and [employer]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 Dyslipidemia on high dose statin - now dose adjusted Dehydration/hypernatremia Severe protein-calorie malnutrition Multiple wounds Anemia - s/p tx Advance current beta blockade dose. Abx Resp support Cardiac monitoring Statin dose adjusted Amiodarone at increased dose again to maintain sinus rhythm. Free water replacement as needed; off IVF for now. Hold anticoagulation due to bleeding risk Dylan Mak MD Aug 10, 2020 16:40
[2020-08-10] MEDS: Amiodarone 200mg tab GT SCH (17:15)
--- NOTE | 2020-08-10 17:47 | Neurology Progress Note ---
Interim History Interim History ROS Limited/Unobtainable: No Interim History no seizures, no new deficits Objective Physical Exam Last Vital Signs Date Time Temp Pulse Resp B/P (MAP) Pulse Ox O2 Delivery O2 Flow Rate FiO2 08/10/20 17:15 105 108/62 08/10/20 16:00 99.3 20 93 08/10/20 13:58 T-Piece 12.0 50 Head: normocophalic Neck: no rigidity EENT: benign Neurologic Exam Objective lethargic, pupils reactive not following withdraws to pain Impression/Recommendations Problems: (1) Malfunction of gastrostomy tube (2) Anemia (3) Pleural effusion, left (4) Acute respiratory failure with hypoxia (5) HCAP (healthcare-associated pneumonia) (6) UTI (urinary tract infection) Status: stable, progressing Diagnostic Impression Recurrent sepsis Possible aspiration Encephalopathy, acute on chronic rule out seizures map > 65 ro covid cont atb fu cultures no need for AED now Gerson Singh MD Aug 10, 2020 17:47
--- NOTE | 2020-08-10 19:15 | NUR ---
NURSE HAND-OFF REPORT: Important Events on Shift:NA Patient Status: Stable Diet: gtube Glucerna 1.2 @ 60 Pending Orders: NA Pending Results/Labs:NA Pending notification:NA Latest Vital Signs: Temperature 99.3 , Pulse 105 , B/P 108 /62 , Respiratory Rate 20 , O2 SAT 93 , Trach Collar, O2 Flow Rate 12.0 . Vital Sign Comment: Stable EKG Rhythm: Sinus Tachycardia Rhythm change?: N MD Notified?: N -Dr. Aubree VALDEZ Response: Message left await call Latest Ramirez Fall Score: 50 Fall Risk: High Risk Safety Measures: Call light Within Reach, Bed Alarm Zone 1, Side Rails Side Rails x2, Bed position Low and Locked. Fall Precautions: Patient Fall Education Report given to SELIN Dennis.
--- NOTE | 2020-08-10 19:20 | NUR ---
NURSE NOTES: Patient received in from Floyd SMALLWOOD. Patient in bed high fowlers. Patient was sleeping, non verbal, tracks with eyes, spontaneous eye opening noted, patient is on trach 12 liters Fio2 is 50 %, on tube feeding Glucerna 1.2 at 60 cc/hr, with flush 100 cc every 4 hours, No residual at this time. Patient has [place] cath 16 Fr, secured, draining well to gravity. Rectal tube in place, drain well to gravity, flush PRN. PICC line is to right upper arm, single lumen,dressing is clean dry and intact, patient is bedbound, total care, seizure precautions, side rails are padded. Patient on P-200 for wound management. Call light is within reach, bed is lowered, locked, alarm is on, will continue to monitor for comfort and safety.
[2020-08-10 20:00] VITALS: BP 100/60
[2020-08-10] MEDS: Dyna-Hex 2% Top Sol 2oz TOPIC SCH (20:41)
[2020-08-10] MEDS: Atorvastatin 20mg tab ORAL SCH (20:42)
--- NOTE | 2020-08-10 21:54 | NUR ---
NURSE NOTES: Help patient Lopressor due to patient low BP of 101/63. Also the order is to give Q8hr and patient received the medication at 17:15. this dose is to close to last dose. Will continue to monitor patient BP and HR as the HR is 101 at this time via 5lead cardia monitor.
[2020-08-11] VITALS: BP 110/67
--- NOTE | 2020-08-11 02:00 | NUR ---
NURSE NOTES: Wound care performed on sacral and ischium tuberosity. Left lower leg dressing noted not to be touched. Patient right lower intact. G-tub running Glucerna 1.2 running 60ml/hr no residual at this time. Rectal tube in place BM is thick and has a hard time going through the rectal tube but is till draining.
[2020-08-11 04:00] VITALS: BP 118/66
[2020-08-11 04:17] LABS: BASOPHILS % (AUTO) 0.6 % (0.0-2.0); HEMATOCRIT 26.2 % (42.0-52.0); LYMPHOCYTES % (AUTO) 13.1 % (20.0-45.0); MEAN CORPUSCULAR VOLUME 89 FL (80-99); MONOCYTES % (AUTO) 7.4 % (1.0-10.0); NEUTROPHILS % (AUTO) 76.9 % (45.0-75.0); PLATELET COUNT 412 K/UL (150-450); RED BLOOD COUNT 2.95 M/UL (4.70-6.10); WHITE BLOOD COUNT 10.4 K/UL (4.8-10.8)
[2020-08-11 05:30] LABS: ALANINE AMINOTRANSFERASE 22 U/L (12-78); ALBUMIN/GLOBULIN RATIO 0.2 (1.0-2.7); ALKALINE PHOSPHATASE 131 U/L (46-116); ANION GAP 2 mmol/L (5-15); ASPARTATE AMINO TRANSFERASE 21 U/L (15-37); BILIRUBIN,TOTAL 0.2 MG/DL (0.2-1.0); BLOOD UREA NITROGEN 38 mg/dL (7-18); CALCIUM 8.8 MG/DL (8.5-10.1); CARBON DIOXIDE 36 MMOL/L (21-32); CHLORIDE 107 MMOL/L (98-107); CREATININE 1.2 MG/DL (0.55-1.30); POTASSIUM 5.2 MMOL/L (3.5-5.1); SODIUM 145 MMOL/L (136-145)
[2020-08-11] MEDS: Metoprolol Tartrate 50mg tab ORAL SCH ×3 (06:44→23:03)
--- NOTE | 2020-08-11 06:52 | NUR ---
NURSE HAND-OFF REPORT: Important Events on Shift:Wound care performed on sacral and ischium tuberosity. Left lower leg dressing noted not to be touched. Patient right lower intact. G-tub running Glucerna 1.2 running 60ml/hr no residual at this time. Rectal tube in place BM is thick and has a hard time going through the rectal tube but is till draining. Fc draining well to gravity with cloudy yellow urine noted. Patient Status: hr elevated 113 Diet: G-tub running Glucerna 1.2 Pending Orders: Pending Results/Labs: MD notification: Spoke with Dr. Jaramillo about Lopressor this morning and Dr. Jaramillo said to give Lopressor 50mcg is SBP was over 100 Latest Vital Signs: Temperature 99.1 , Pulse 113 , B/P 118 /66 , Respiratory Rate 20 , O2 SAT 94 , Trach Collar, O2 Flow Rate 12.0 . Vital Sign Comment: EKG Rhythm: Sinus Tachycardia Rhythm change?: N MD Notified?: N -Dr. Aubree VALDEZ Response: Message left await call Latest Ramirez Fall Score: 50 Fall Risk: High Risk Safety Measures: Call light Within Reach, Bed Alarm Zone 1, Side Rails Side Rails x2, Bed position Low and Locked. Fall Precautions: Patient Fall Education Report given to Gabriel SMALLWOOD. Addendum: 08/11/20 at 0758 by Jeannie Ward RN report given to August SMALLWOOD
--- NOTE | 2020-08-11 07:54 | NUR ---
CASE MANAGEMENT:REVIEW 08/11/20 SI: PNA. UTI. BACTEREMIA. UGIB 99.1 113 20 118/66 94% ON T-PIECE 12L/50% FIO2 H/H-8.0/26.2 K+5.2 CO2+36 BUN+38 BNP+4034 IS: AMIODARONE GT QD ZINC GT QD LOPRESSOR GT Q12 LIPITOR GT QHS VT C GT BID KEPPRA GT Q12 : TELEMETRY STATUS DCP: FROM HOME PLAN: WEAN OXYGEN TO LEVEL OF APPROPRIATENESS FOR HOME NOVEL COVID NEGATIVE CXR PENDING
[2020-08-11 08:00] VITALS: BP 112/61
--- NOTE | 2020-08-11 08:18 | NUR ---
NURSE NOTES: Received report from Jeannie Ward. Patient sitting up in bed, awake and alert, trach collar in place, rectal tube in place, soft care mattress in place, [place] catheter in place, G-tube in place, side rails up x 3, bed in lowest position, wheels locked, call light within reach, in no apparent distress.
[2020-08-11] MEDS: Ascorbic Acid 500mg tab GT SCH ×2 (08:38→18:36)
[2020-08-11] MEDS: Zinc Sulfate 220mg GT SCH (08:38)
[2020-08-11] MEDS: Dakin's 0.25% (Half Strength) 16oz TOPIC SCH (09:03)
[2020-08-11 12:00] VITALS: BP 115/67
--- NOTE | 2020-08-11 14:38 | Diagnostic Imaging Report ---
EXAM: XR Chest, 1 View CLINICAL HISTORY: ABN CHST TECHNIQUE: Frontal view of the chest. COMPARISON: Chest x-ray 07/22/20 FINDINGS: Lungs: Near complete opacification of left hemithorax similar to prior study. There is an area of lucency seen within the mid left lung, new since prior study. Right lung clear. Pleural space: Unremarkable. No pneumothorax. Heart: Unremarkable. No cardiomegaly. Mediastinum: Unremarkable. Bones/joints: Unremarkable. Tubes, lines and devices: Stable tracheostomy tube. Stable right PICC line. IMPRESSION: Near complete opacification of left hemithorax similar to prior study. There is an area of lucency seen within the mid left lung, new since prior study, may be focal expanded lung. Right lung clear.
[2020-08-11 16:00] VITALS: BP 122/68
--- NOTE | 2020-08-11 16:30 | General Progress Note ---
Subjective ROS Limited/Unobtainable: No Constitutional: Reports: malaise, weakness HEENT: Reports: no symptoms Cardiovascular: Reports: no symptoms Respiratory: Reports: cough, shortness of breath, sputum Gastrointestinal/Abdominal: Reports: difficulty swallowing Genitourinary: Reports: no symptoms Neurologic/Psychiatric: Reports: pre-existing deficit Endocrine: Reports: no symptoms Hematologic/Lymphatic: Reports: anemia Allergies: Coded Allergies: No Known Allergies (Unverified , 11/02/19) All Systems: reviewed and negative except above Subjective No significant events. Awake but nonverbal. Confused. Tolerating tube feeds. No reports of bleeding. Labs noted. On trach collar at 12 L. Objective Last 24 Hour Vital Signs Date Time Temp Pulse Resp B/P (MAP) Pulse Ox O2 Delivery O2 Flow Rate FiO2 08/11/20 16:00 91 08/11/20 14:33 98 115/67 08/11/20 13:42 98 08/11/20 12:36 98 T-Piece 12.0 50 08/11/20 12:00 99.1 103 24 115/67 (83) 98 08/11/20 09:00 Trach Collar 12.0 08/11/20 08:03 95 T-Piece 12.0 50 08/11/20 08:00 90 08/11/20 08:00 100.0 91 24 112/61 (78) 98 08/11/20 06:44 113 118/66 08/11/20 04:00 106 08/11/20 04:00 99.1 105 20 118/66 (83) 94 08/11/20 00:45 95 T-Piece 12.0 50 08/11/20 00:00 98.9 104 20 110/67 (81) 94 08/10/20 23:27 107 08/10/20 21:53 101 101/63 08/10/20 21:00 Trach Collar 12.0 08/10/20 20:00 94 08/10/20 20:00 98.6 96 20 100/60 (73) 96 08/10/20 19:50 94 T-Piece 12.0 50 08/10/20 17:15 105 108/62 Intake and Output 08/10/20 08/11/20 19:00 07:00 Intake Total 1020 ml 660 ml Output Total 700 ml Balance 320 ml 660 ml Intake Free Water 300 ml Tube Feeding 720 ml 660 ml Output Urine Total 700 ml Laboratory Tests 08/11/20 04:00: White Blood Count 10.4, Red Blood Count 2.95L, Hemoglobin 8.0L, Hematocrit 26.2L , Mean Corpuscular Volume 89, Mean Corpuscular Hemoglobin 27.2, Mean Corpuscular Hemoglobin Concent 30.6L, Red Cell Distribution Width 16.0H, Platelet Count 412, Mean Platelet Volume 6.0L, Neutrophils (%) (Auto) 76.9H, Lymphocytes (%) (Auto) 13.1L, Monocytes (%) (Auto) 7.4, Eosinophils (%) (Auto) 2.0, Basophils (%) (Auto) 0.6, Sodium Level 145, Potassium Level 5.2H, Chloride Level 107, Carbon Dioxide Level 36H, Anion Gap 2L, Blood Urea Nitrogen 38H, Creatinine 1.2, Estimat Glomerular Filtration Rate > 60, Glucose Level 131H, Calcium Level 8.8, Magnesium Level 2.4, Total Bilirubin 0.2, Aspartate Amino Transf (AST/SGOT) 21, Alanine Aminotransferase (ALT/SGPT) 22, Alkaline Phosphatase 131H, Pro-B-Type Natriuretic Peptide 4034H, Total Protein 7.1, Albumin 1.0L, Globulin 6.1, Albumin/Globulin Ratio 0.2L Height (Feet): 5 Height (Inches): 4.00 Weight (Pounds): 171 Objective General Appearance: WD/WN, confused EENT: normal ENT inspection Neck: normal alignment Cardiovascular: normal rate, regular rhythm Respiratory/Chest: rhonchi - bilaterally Abdomen: normal bowel sounds, non tender, soft, no organomegaly Edema: no edema noted Leg (L), no edema noted Leg (R) Neurologic: disoriented, aphasia Skin: normal pigmentation Assessment/Plan Problem List: (1) Anemia ICD Codes: D64.9 - Anemia, unspecified SNOMED: 824944603, 836479642 Qualifiers: Qualified Codes: D50.0 - Iron deficiency anemia secondary to blood loss (chronic) (2) Pleural effusion, left ICD Codes: J90 - Pleural effusion, not elsewhere classified SNOMED: 09537483, 104601759 (3) Malfunction of gastrostomy tube ICD Codes: K94.23 - Gastrostomy malfunction SNOMED: 986286385 (4) Acute respiratory failure with hypoxia ICD Codes: J96.01 - Acute respiratory failure with hypoxia SNOMED: 47744050, 980627402 (5) HCAP (healthcare-associated pneumonia) ICD Codes: J18.9 - Pneumonia, unspecified organism SNOMED: 341090868, 525018681 Status: stable, progressing Assessment/Plan: Continue trach collar. Oxygen as needed Keep sats greater than 92% Pulmonary toilet suctioning G-tube feeds Monitor residuals Cautious resumption of anticoagulation-cleared by GI Continue H2 ezekiel Monitor lites IV fluids as needed Turn every 2 hours Poor long-term prognosis for meaningful recovery Angel Jaramillo MD Aug 11, 2020 16:30
--- NOTE | 2020-08-11 16:43 | Pulmonology Progress Note ---
Subjective ROS Limited/Unobtainable: No Allergies: Coded Allergies: No Known Allergies (Unverified , 11/02/19) All Systems: reviewed and negative except above Subjective CARE NOTED nonverbal on oxygen no distress trach collar imaging noted Objective Last 24 Hour Vital Signs Date Time Temp Pulse Resp B/P (MAP) Pulse Ox O2 Delivery O2 Flow Rate FiO2 08/11/20 16:00 91 08/11/20 14:33 98 115/67 08/11/20 13:42 98 08/11/20 12:36 98 T-Piece 12.0 50 08/11/20 12:00 99.1 103 24 115/67 (83) 98 08/11/20 09:00 Trach Collar 12.0 08/11/20 08:03 95 T-Piece 12.0 50 08/11/20 08:00 90 08/11/20 08:00 100.0 91 24 112/61 (78) 98 08/11/20 06:44 113 118/66 08/11/20 04:00 106 08/11/20 04:00 99.1 105 20 118/66 (83) 94 08/11/20 00:45 95 T-Piece 12.0 50 08/11/20 00:00 98.9 104 20 110/67 (81) 94 08/10/20 23:27 107 08/10/20 21:53 101 101/63 08/10/20 21:00 Trach Collar 12.0 08/10/20 20:00 94 08/10/20 20:00 98.6 96 20 100/60 (73) 96 08/10/20 19:50 94 T-Piece 12.0 50 08/10/20 17:15 105 108/62 Intake and Output 08/10/20 08/11/20 19:00 07:00 Intake Total 1020 ml 660 ml Output Total 700 ml Balance 320 ml 660 ml Intake Free Water 300 ml Tube Feeding 720 ml 660 ml Output Urine Total 700 ml Objective WDWN NAD awake chronically ill moderate breath sounds bilaterally with reduced left [id number] NABS nontender GT no CCE nonfocal weak wounds noted Laboratory Tests 08/11/20 04:00: White Blood Count 10.4, Red Blood Count 2.95L, Hemoglobin 8.0L, Hematocrit 26.2L , Mean Corpuscular Volume 89, Mean Corpuscular Hemoglobin 27.2, Mean Corpuscular Hemoglobin Concent 30.6L, Red Cell Distribution Width 16.0H, Platelet Count 412, Mean Platelet Volume 6.0L, Neutrophils (%) (Auto) 76.9H, Lymphocytes (%) (Auto) 13.1L, Monocytes (%) (Auto) 7.4, Eosinophils (%) (Auto) 2.0, Basophils (%) (Auto) 0.6, Sodium Level 145, Potassium Level 5.2H, Chloride Level 107, Carbon Dioxide Level 36H, Anion Gap 2L, Blood Urea Nitrogen 38H, Creatinine 1.2, Estimat Glomerular Filtration Rate > 60, Glucose Level 131H, Calcium Level 8.8, Magnesium Level 2.4, Total Bilirubin 0.2, Aspartate Amino Transf (AST/SGOT) 21, Alanine Aminotransferase (ALT/SGPT) 22, Alkaline Phosphatase 131H, Pro-B-Type Natriuretic Peptide 4034H, Total Protein 7.1, Albumin 1.0L, Globulin 6.1, Albumin/Globulin Ratio 0.2L Current Medications Medications (Trade) Dose Ordered Sig/Clive Route PRN Reason Start Time Stop Time Status Last Admin Dose Admin Acetaminophen (Tylenol) 650 mg Q4H PRN GT Temp >100.5 07/18/20 09:30 08/17/20 09:29 08/05/20 13:22 Acetaminophen (Tylenol) 650 mg Q4H PRN RECTAL Temp >100.5 07/14/20 13:30 08/13/20 13:29 Amiodarone HCl (Cordarone) 400 mg DAILY@1800 GT 08/10/20 18:00 10/28/20 17:59 08/10/20 17:15 Ascorbic Acid (Vitamin C) 250 mg TWICE A DAY GT 07/16/20 18:00 08/15/20 17:59 08/11/20 08:38 Atorvastatin Calcium (Lipitor) 10 mg BEDTIME ORAL 08/05/20 21:00 10/22/20 20:59 08/10/20 20:42 Chlorhexidine Gluconate (Jennifer-Hex 2%) 1 applic DAILY@2000 TOPIC 07/17/20 20:00 10/15/20 19:59 08/10/20 20:41 Famotidine (Pepcid) 20 mg Q12HR GT 07/16/20 21:00 10/14/20 20:59 08/11/20 08:38 Finasteride (Proscar) 5 mg DAILY ORAL 07/15/20 09:00 10/13/20 08:59 08/11/20 08:38 Hydralazine HCl (Apresoline) 25 mg Q6H PRN GT SBP above 150 07/24/20 23:30 10/22/20 23:29 07/26/20 05:22 Levetiracetam (Keppra) 1,000 mg Q12HR ORAL 07/14/20 21:00 08/13/20 20:59 08/11/20 11:50 Metoprolol Tartrate (Lopressor) 50 mg Q8HR ORAL 08/10/20 16:45 10/23/20 22:14 08/11/20 14:33 Multivitamins (Multivitamins) 1 tab DAILY GT 07/17/20 09:00 08/16/20 08:59 08/11/20 08:38 Sodium Hypochlorite (Dakin's Half Strength) 1 applic DAILY TOPIC 07/16/20 13:00 08/15/20 12:59 08/11/20 09:03 Zinc Sulfate (Zinc Sulfate) 220 mg DAILY GT 07/27/20 09:00 10/25/20 08:59 08/11/20 08:38 Assessment/Plan Assessment/Plan Impression: Healthcare-associated pneumonia Acute respiratory failure with hypoxia Tracheostomy status Pleural effusion, left-recurrent Decubitus ulcers Urinary tract infection Anemia S/p previous Craniotomy, RCA occlusion, [employer] shunt Seizure history GERD, dysphagia s/p GJ tube h/o Hypertension h/o Atrial fibrillation Previous DVT and Pulmonary Embolism, hypernatremia Plan repeat tap of fluid events reviewed monitor HH for change J tube feeds monitor oxygen needs nebs as needed Wound care Cardiology follow up [employer] Medications dc planning -if able; not safe at home but adamant impression, plan, and exam edited and reviewed in detail care discussed with Nikita Arreola MD Aug 11, 2020 16:43
--- NOTE | 2020-08-11 17:45 | NUR ---
NURSE NOTES:WOUND CARE FOLLOW-UP NOTES: Pt seen for drsg change to Lateral L Leg. Wound lateral L Tibia is moist and antonio.Tendon and bone exposure less visible. Moderate amt sanguineous exudate noted. Edges are flat and adherent to base of wound. No odor noted. Wound cleansed with Saline,Promogran applied to base of wound and lightly moistened with Saline,covered with ABD Pad then wrapped with Kerlix drsg. R and L Heel wounds are malodorous. Loose non-viable tissue of L Heel removed by . Scattered fibrinous slough at base of wound. L Heel is 75$% granular. R Heel wound is 80% mixed granulation and scattered slough ,20% necrotic. Wound is malodorous. Full thickness pressure injury medial/lateral R foot with 100% soft necrosis. Wound is malodorous. Non-viable tissue removed by . Wound is now 100% antonio with small amt sanguineous exudate. Tx for Dakins continued as ordered to both heels.
--- NOTE | 2020-08-11 18:02 | NUR ---
NURSE NOTES: Wound care on bilateral lower extremities and sacral, buttocks completed by Tyra Madsen, and myself.
[2020-08-11] MEDS: Amiodarone 200mg tab GT SCH (18:36)
--- NOTE | 2020-08-11 19:45 | NUR ---
NURSE NOTES: Received patient from SELIN Koch. AOx0, aphasic. On 12lpm per trach collar, saturating well. suctioning as needed for optimal ventilation. PICC line on right upper arm. On GT feeding, patent and running at a prescribed rate. wound care done as ordered. Bed in lowest position, brakes engaged and bed alarm on. Call light placed within reach. Will continue to monitor.
--- NOTE | 2020-08-11 19:50 | NUR ---
NURSE HAND-OFF REPORT: Important Events on Shift: Wound care completed. Ultrasound thoracentesis ordered, will be performed on Tuesday. I left message on voicemail of Dr. Benjamin Quintero reporting potassium=5.2 and hemoglobin=8.0. Patient Status: In no apparent distress. Diet: Jevity 1.2@60cc/hour, H2O flush 100ccQshift. Pending Orders: ultrasound thoracentesis. Pending Results/Labs:N/A Pending MD notification:N/A Latest Vital Signs: Temperature 98.7 , Pulse 92 , B/P 122 /68 , Respiratory Rate 24 , O2 SAT 94 , Trach Collar, O2 Flow Rate 12.0 . Vital Sign Comment: Trach collar requires frequent suctioning. EKG Rhythm: Sinus Rhythm Rhythm change?: N Notified?: N -Dr. Aubree VALDEZ Response: Message left await call Latest Ramirez Fall Score: 50 Fall Risk: High Risk Safety Measures: Call light Within Reach, Bed Alarm Zone 1, Side Rails Side Rails x2, Bed position Low and Locked. Fall Precautions: Patient Fall Education Report given to Azam Marsh RN.
--- NOTE | 2020-08-11 19:59 | General Progress Note ---
Subjective Allergies: Coded Allergies: No Known Allergies (Unverified , 11/02/19) Subjective Above noted non communicative stools brown, rectal tube- still liq tolerating TF Objective Last 24 Hour Vital Signs Date Time Temp Pulse Resp B/P (MAP) Pulse Ox O2 Delivery O2 Flow Rate FiO2 08/11/20 16:00 91 08/11/20 16:00 98.7 92 24 122/68 (86) 94 08/11/20 14:33 98 115/67 08/11/20 13:42 98 08/11/20 12:36 98 T-Piece 12.0 50 08/11/20 12:00 99.1 103 24 115/67 (83) 98 08/11/20 09:00 Trach Collar 12.0 08/11/20 08:03 95 T-Piece 12.0 50 08/11/20 08:00 90 08/11/20 08:00 100.0 91 24 112/61 (78) 98 08/11/20 06:44 113 118/66 08/11/20 04:00 106 08/11/20 04:00 99.1 105 20 118/66 (83) 94 08/11/20 00:45 95 T-Piece 12.0 50 08/11/20 00:00 98.9 104 20 110/67 (81) 94 08/10/20 23:27 107 08/10/20 21:53 101 101/63 08/10/20 21:00 Trach Collar 12.0 08/10/20 20:00 94 08/10/20 20:00 98.6 96 20 100/60 (73) 96 Intake and Output 08/10/20 08/11/20 19:00 07:00 Intake Total 1020 ml 660 ml Output Total 700 ml Balance 320 ml 660 ml Intake Free Water 300 ml Tube Feeding 720 ml 660 ml Output Urine Total 700 ml Laboratory Tests 08/11/20 04:00: White Blood Count 10.4, Red Blood Count 2.95L, Hemoglobin 8.0L, Hematocrit 26.2L , Mean Corpuscular Volume 89, Mean Corpuscular Hemoglobin 27.2, Mean Corpuscular Hemoglobin Concent 30.6L, Red Cell Distribution Width 16.0H, Platelet Count 412, Mean Platelet Volume 6.0L, Neutrophils (%) (Auto) 76.9H, Lymphocytes (%) (Auto) 13.1L, Monocytes (%) (Auto) 7.4, Eosinophils (%) (Auto) 2.0, Basophils (%) (Auto) 0.6, Sodium Level 145, Potassium Level 5.2H, Chloride Level 107, Carbon Dioxide Level 36H, Anion Gap 2L, Blood Urea Nitrogen 38H, Creatinine 1.2, Estimat Glomerular Filtration Rate > 60, Glucose Level 131H, Calcium Level 8.8, Magnesium Level 2.4, Total Bilirubin 0.2, Aspartate Amino Transf (AST/SGOT) 21, Alanine Aminotransferase (ALT/SGPT) 22, Alkaline Phosphatase 131H, Pro-B-Type Natriuretic Peptide 4034H, Total Protein 7.1, Albumin 1.0L, Globulin 6.1, Albumin/Globulin Ratio 0.2L Height (Feet): 5 Height (Inches): 4.00 Weight (Pounds): 171 Objective Eldely WM NCAT (+) trach , T tube Coarse BS RRR abd soft (+) GT ext no edema Assessment/Plan Status: stable, progressing Assessment/Plan: Assessment - UGIB - resolved - Anemia, s/p transfusion - h/o PUD - resp failure, s/p trach - dysphagia, s/p PEG - atrial fibrillation - h/o DVT - hypernatremia - liq stools, ? TF related Recommendations - anticoagulation - H2B BID indefinitely - TF- change to vital AF - free water - follow H&H Akiko Rai MD Aug 11, 2020 19:59
[2020-08-11 20:00] VITALS: BP 103/62
[2020-08-11] MEDS: Dyna-Hex 2% Top Sol 2oz TOPIC SCH (20:42)
[2020-08-11] MEDS: Atorvastatin 20mg tab ORAL SCH (20:43)
--- NOTE | 2020-08-11 22:25 | Neurology Progress Note ---
Interim History Interim History ROS Limited/Unobtainable: No Interim History no new deficits Objective Physical Exam Last Vital Signs Date Time Temp Pulse Resp B/P (MAP) Pulse Ox O2 Delivery O2 Flow Rate FiO2 08/11/20 21:00 Trach Collar 12.0 08/11/20 20:00 108 08/11/20 20:00 99.8 24 103/62 (76) 98 08/11/20 12:36 50 Laboratory Tests Test 08/11/20 04:00 White Blood Count 10.4 K/UL (4.8-10.8) Red Blood Count 2.95 M/UL (4.70-6.10) L Hemoglobin 8.0 G/DL (14.2-18.0) L Hematocrit 26.2 % (42.0-52.0) L Mean Corpuscular Volume 89 FL (80-99) Mean Corpuscular Hemoglobin 27.2 PG (27.0-31.0) Mean Corpuscular Hemoglobin Concent 30.6 G/DL (32.0-36.0) L Red Cell Distribution Width 16.0 % (11.6-14.8) H Platelet Count 412 K/UL (150-450) Mean Platelet Volume 6.0 FL (6.5-10.1) L Neutrophils (%) (Auto) 76.9 % (45.0-75.0) H Lymphocytes (%) (Auto) 13.1 % (20.0-45.0) L Monocytes (%) (Auto) 7.4 % (1.0-10.0) Eosinophils (%) (Auto) 2.0 % (0.0-3.0) Basophils (%) (Auto) 0.6 % (0.0-2.0) Sodium Level 145 MMOL/L (136-145) Potassium Level 5.2 MMOL/L (3.5-5.1) H Chloride Level 107 MMOL/L (98-107) Carbon Dioxide Level 36 MMOL/L (21-32) H Anion Gap 2 mmol/L (5-15) L Blood Urea Nitrogen 38 mg/dL (7-18) H Creatinine 1.2 MG/DL (0.55-1.30) Estimat Glomerular Filtration Rate > 60 mL/min (>60) Glucose Level 131 MG/DL (74-106) H Calcium Level 8.8 MG/DL (8.5-10.1) Magnesium Level 2.4 MG/DL (1.8-2.4) Total Bilirubin 0.2 MG/DL (0.2-1.0) Aspartate Amino Transf (AST/SGOT) 21 U/L (15-37) Alanine Aminotransferase (ALT/SGPT) 22 U/L (12-78) Alkaline Phosphatase 131 U/L (46-116) H Pro-B-Type Natriuretic Peptide 4034 pg/mL (0-125) H Total Protein 7.1 G/DL (6.4-8.2) Albumin 1.0 G/DL (3.4-5.0) L Globulin 6.1 g/dL Albumin/Globulin Ratio 0.2 (1.0-2.7) L Head: normocophalic Neck: no rigidity EENT: benign Neurologic Exam Objective lethargic, pupils reactive not following withdraws to pain Impression/Recommendations Problems: (1) Malfunction of gastrostomy tube (2) Anemia (3) Pleural effusion, left (4) Acute respiratory failure with hypoxia (5) HCAP (healthcare-associated pneumonia) (6) UTI (urinary tract infection) Status: stable, progressing Diagnostic Impression Recurrent sepsis Possible aspiration Encephalopathy, acute on chronic rule out seizures map > 65 ro covid cont atb fu cultures no need for AED now Gerson Singh MD Aug 11, 2020 22:25
[2020-08-12] VITALS: BP 100/62
--- NOTE | 2020-08-12 01:06 | Cardiology Progress Note ---
Subjective DATE OF SERVICE: Aug 11, 2020 Withdrawn and non-verbal No new bleeding; resuming anticoagulation now with GI clearance. BP parameters stabilized. Monitor: AFib/flutter persisting with increased ventricular rates now. Objective Last 24 Hour Vital Signs Date Time Temp Pulse Resp B/P (MAP) Pulse Ox O2 Delivery O2 Flow Rate FiO2 08/12/20 00:00 110 08/12/20 00:00 99.8 108 24 100/62 (75) 94 08/11/20 23:03 113 111/59 08/11/20 21:00 Trach Collar 12.0 08/11/20 20:00 108 08/11/20 20:00 108 08/11/20 20:00 99.8 109 24 103/62 (76) 98 08/11/20 19:54 96 T-Piece 12.0 50 08/11/20 16:00 91 08/11/20 16:00 98.7 92 24 122/68 (86) 94 08/11/20 14:33 98 115/67 08/11/20 13:42 98 08/11/20 12:36 98 T-Piece 12.0 50 08/11/20 12:00 99.1 103 24 115/67 (83) 98 08/11/20 09:00 Trach Collar 12.0 08/11/20 08:03 95 T-Piece 12.0 50 08/11/20 08:00 90 08/11/20 08:00 100.0 91 24 112/61 (78) 98 08/11/20 06:44 113 118/66 08/11/20 04:00 106 08/11/20 04:00 99.1 105 20 118/66 (83) 94 ROS: unchanged from 07/14/20 HEENT: Thick Trach secretions RHYTHM: NSR, ST, PACs, Afib LUNGS: bilateral rhonchi, other - decreased BS left base CARDIAC: normal S1 and S2, rapid rate, arrhythmia ABDOMEN: normal bowel sounds, soft, G-Tube intact EXTREMITIES: normal range of motion, non-tender, trace edema, other - withdrawn Laboratory Tests Test 08/11/20 04:00 White Blood Count 10.4 K/UL (4.8-10.8) Red Blood Count 2.95 M/UL (4.70-6.10) L Hemoglobin 8.0 G/DL (14.2-18.0) L Hematocrit 26.2 % (42.0-52.0) L Mean Corpuscular Volume 89 FL (80-99) Mean Corpuscular Hemoglobin 27.2 PG (27.0-31.0) Mean Corpuscular Hemoglobin Concent 30.6 G/DL (32.0-36.0) L Red Cell Distribution Width 16.0 % (11.6-14.8) H Platelet Count 412 K/UL (150-450) Mean Platelet Volume 6.0 FL (6.5-10.1) L Neutrophils (%) (Auto) 76.9 % (45.0-75.0) H Lymphocytes (%) (Auto) 13.1 % (20.0-45.0) L Monocytes (%) (Auto) 7.4 % (1.0-10.0) Eosinophils (%) (Auto) 2.0 % (0.0-3.0) Basophils (%) (Auto) 0.6 % (0.0-2.0) Sodium Level 145 MMOL/L (136-145) Potassium Level 5.2 MMOL/L (3.5-5.1) H Chloride Level 107 MMOL/L (98-107) Carbon Dioxide Level 36 MMOL/L (21-32) H Anion Gap 2 mmol/L (5-15) L Blood Urea Nitrogen 38 mg/dL (7-18) H Creatinine 1.2 MG/DL (0.55-1.30) Estimat Glomerular Filtration Rate > 60 mL/min (>60) Glucose Level 131 MG/DL (74-106) H Calcium Level 8.8 MG/DL (8.5-10.1) Magnesium Level 2.4 MG/DL (1.8-2.4) Total Bilirubin 0.2 MG/DL (0.2-1.0) Aspartate Amino Transf (AST/SGOT) 21 U/L (15-37) Alanine Aminotransferase (ALT/SGPT) 22 U/L (12-78) Alkaline Phosphatase 131 U/L (46-116) H Pro-B-Type Natriuretic Peptide 4034 pg/mL (0-125) H Total Protein 7.1 G/DL (6.4-8.2) Albumin 1.0 G/DL (3.4-5.0) L Globulin 6.1 g/dL Albumin/Globulin Ratio 0.2 (1.0-2.7) L Assessment/Plan Assessment/Plan Healthcare associated PNA Paroxysmal atrial fibrillation/flutter Paroxysmal atrial ectopy 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 Dyslipidemia on high dose statin - now dose adjusted Dehydration/hypernatremia Severe protein-calorie malnutrition Multiple wounds Anemia - s/p tx Advance current beta blockade dose. Abx Resp support Cardiac monitoring Statin dose adjusted Amiodarone at increased dose again to maintain sinus rhythm. Free water replacement as needed; off IVF for now. Resume anticoagulation with caution due to bleeding risk Dylan Mak MD Aug 12, 2020 01:06
--- NOTE | 2020-08-12 03:09 | NUR ---
NURSE NOTES: Patient asleep in bed. Suctioned for optimal oxygenation. Not in acute distress. Feeding running at a prescribed rate. Will continue to monitor.
[2020-08-12 04:00] VITALS: BP 100/60
[2020-08-12] MEDS: Metoprolol Tartrate 50mg tab ORAL SCH ×3 (05:03→22:00)
--- NOTE | 2020-08-12 06:38 | NUR ---
NURSE NOTES: Held patient's lopressor for 06:00 due to BP 100/60. Dr. Ella fishman.
--- NOTE | 2020-08-12 07:26 | NUR ---
NURSE HAND-OFF REPORT: Important Events on Shift:[Frequent suctioning to increase oxygen saturation; feeding changed to vital AF @60; informed Dr. Jaramillo about holding 06:00 metoprolol.] Patient Status: [Full code] Diet: [Tube Feeding - vital AF @60] Pending Orders: [] Pending Results/Labs:[] Pending MD notification:[] Latest Vital Signs: Temperature 98.2 , Pulse 90 , B/P 100 /60 , Respiratory Rate 24 , O2 SAT 94 , Trach Collar, O2 Flow Rate 10.0 . Vital Sign Comment: [] EKG Rhythm: Sinus Rhythm Rhythm change?: N Notified?: N -Dr. Aubree VALDEZ Response: Message left await call Latest Ramirez Fall Score: 50 Fall Risk: High Risk Safety Measures: Call light Within Reach, Bed Alarm Zone 1, Side Rails Side Rails x2, Bed position Low and Locked. Fall Precautions: Patient Fall Education Report given to [SELIN Alston].
--- NOTE | 2020-08-12 07:27 | NUR ---
NURSE NOTES: Received report from Azam/RN, Observed patient asleep, Lying semi-johnston's, resting comfortably. On Trach collar 12L, FiO2 50% no acute distress/SOB noted. Right upper Arm PICC line patent and intact. Bed in low position and locked, Call light within reach. Will continue plan of care.
[2020-08-12 08:00] VITALS: BP 124/62
--- NOTE | 2020-08-12 08:39 | Pulmonology Progress Note ---
Subjective ROS Limited/Unobtainable: Yes Allergies: Coded Allergies: No Known Allergies (Unverified , 11/02/19) All Systems: reviewed and negative except above Subjective CARE NOTED nonverbal on oxygen no distress at present; meds renewed trach collar imaging noted Objective Last 24 Hour Vital Signs Date Time Temp Pulse Resp B/P (MAP) Pulse Ox O2 Delivery O2 Flow Rate FiO2 08/12/20 08:00 98.6 103 24 124/62 (82) 96 08/12/20 05:03 90 100/60 08/12/20 04:00 98.2 90 24 100/60 (73) 94 08/12/20 03:30 90 08/12/20 01:08 97 T-Piece 10.0 35 08/12/20 00:00 110 08/12/20 00:00 99.8 108 24 100/62 (75) 94 08/11/20 23:03 113 111/59 08/11/20 21:00 Trach Collar 12.0 08/11/20 20:00 108 08/11/20 20:00 108 08/11/20 20:00 99.8 109 24 103/62 (76) 98 08/11/20 19:54 96 T-Piece 12.0 50 08/11/20 16:00 91 08/11/20 16:00 98.7 92 24 122/68 (86) 94 08/11/20 14:33 98 115/67 08/11/20 13:42 98 08/11/20 12:36 98 T-Piece 12.0 50 08/11/20 12:00 99.1 103 24 115/67 (83) 98 08/11/20 09:00 Trach Collar 12.0 Intake and Output 08/11/20 08/12/20 19:00 07:00 Intake Total 660 ml 60 ml Output Total 1200 ml Balance 660 ml -1140 ml Tube Feeding 660 ml 60 ml Output Urine Total 800 ml Stool Total 400 ml Objective WDWN NAD awake chronically ill moderate breath sounds bilaterally with reduced left [id number] NABS nontender GT no CCE nonfocal weak wounds noted Current Medications Medications (Trade) Dose Ordered Sig/Clive Route PRN Reason Start Time Stop Time Status Last Admin Dose Admin Acetaminophen (Tylenol) 650 mg Q4H PRN GT Temp >100.5 07/18/20 09:30 08/17/20 09:29 08/05/20 13:22 Acetaminophen (Tylenol) 650 mg Q4H PRN RECTAL Temp >100.5 07/14/20 13:30 08/13/20 13:29 Amiodarone HCl (Cordarone) 400 mg DAILY@1800 GT 08/10/20 18:00 10/28/20 17:59 08/11/20 18:36 Ascorbic Acid (Vitamin C) 250 mg TWICE A DAY GT 07/16/20 18:00 08/15/20 17:59 08/11/20 18:36 Atorvastatin Calcium (Lipitor) 10 mg BEDTIME ORAL 08/05/20 21:00 10/22/20 20:59 08/11/20 20:43 Chlorhexidine Gluconate (Jennifer-Hex 2%) 1 applic DAILY@2000 TOPIC 07/17/20 20:00 10/15/20 19:59 08/11/20 20:42 Famotidine (Pepcid) 20 mg Q12HR GT 07/16/20 21:00 10/14/20 20:59 08/11/20 20:42 Finasteride (Proscar) 5 mg DAILY ORAL 07/15/20 09:00 10/13/20 08:59 08/11/20 08:38 Hydralazine HCl (Apresoline) 25 mg Q6H PRN GT SBP above 150 07/24/20 23:30 10/22/20 23:29 07/26/20 05:22 Levetiracetam (Keppra) 1,000 mg Q12HR ORAL 07/14/20 21:00 08/13/20 20:59 08/11/20 20:42 Metoprolol Tartrate (Lopressor) 50 mg Q8HR ORAL 08/10/20 16:45 10/23/20 22:14 08/11/20 23:03 Multivitamins (Multivitamins) 1 tab DAILY GT 07/17/20 09:00 08/16/20 08:59 08/11/20 08:38 Sodium Hypochlorite (Dakin's Half Strength) 1 applic DAILY TOPIC 07/16/20 13:00 08/15/20 12:59 08/11/20 09:03 Zinc Sulfate (Zinc Sulfate) 220 mg DAILY GT 07/27/20 09:00 10/25/20 08:59 08/11/20 08:38 Assessment/Plan Assessment/Plan Impression: Healthcare-associated pneumonia Acute respiratory failure with hypoxia Tracheostomy status Pleural effusion, left-recurrent Decubitus ulcers Urinary tract infection Anemia S/p previous Craniotomy, RCA occlusion, DRAG CAR RACER shunt Seizure history GERD, dysphagia s/p GJ tube h/o Hypertension h/o Atrial fibrillation Previous DVT and Pulmonary Embolism, hypernatremia Plan repeat tap of fluid ordered events reviewed monitor HH for change J tube feeds monitor oxygen needs nebs as needed Wound care 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
[2020-08-12] MEDS: Ascorbic Acid 500mg tab GT SCH ×2 (09:01→18:12)
[2020-08-12] MEDS: Zinc Sulfate 220mg GT SCH (09:01)
[2020-08-12] MEDS: Dakin's 0.25% (Half Strength) 16oz TOPIC SCH (09:02)
[2020-08-12] MEDS ORDERED: Acetaminophen 650 MG SUPP RECTAL PRN (10:00)
--- NOTE | 2020-08-12 10:32 | Surgery Progress Note ---
Surgery Progress Note Subjective Additional Comments no acute events comfortable dressings fell off and changed again Objective Last 24 Hour Vital Signs Date Time Temp Pulse Resp B/P (MAP) Pulse Ox O2 Delivery O2 Flow Rate FiO2 08/12/20 09:00 Trach Collar 12.0 08/12/20 08:00 98.6 103 24 124/62 (82) 96 08/12/20 08:00 94 08/12/20 07:30 93 T-Piece 10.0 35 08/12/20 05:03 90 100/60 08/12/20 04:00 98.2 90 24 100/60 (73) 94 08/12/20 03:30 90 08/12/20 01:08 97 T-Piece 10.0 35 08/12/20 00:00 110 08/12/20 00:00 99.8 108 24 100/62 (75) 94 08/11/20 23:03 113 111/59 08/11/20 21:00 Trach Collar 12.0 08/11/20 20:00 108 08/11/20 20:00 108 08/11/20 20:00 99.8 109 24 103/62 (76) 98 08/11/20 19:54 96 T-Piece 12.0 50 08/11/20 16:00 91 08/11/20 16:00 98.7 92 24 122/68 (86) 94 08/11/20 14:33 98 115/67 08/11/20 13:42 98 08/11/20 12:36 98 T-Piece 12.0 50 08/11/20 12:00 99.1 103 24 115/67 (83) 98 I&O Intake and Output 08/11/20 08/12/20 19:00 07:00 Intake Total 660 ml 60 ml Output Total 1200 ml Balance 660 ml -1140 ml Tube Feeding 660 ml 60 ml Output Urine Total 800 ml Stool Total 400 ml Dressing: saturated Cardiovascular: RSR Respiratory: decreased breath sounds Abdomen: soft, non-tender, present bowel sounds Extremities: edema, no cyanosis, pulses, other Plan Problems: (1) Decubitus skin ulcer Assessment & Plan: Pt presented on admission with PV shunt,Tracheostomy, Contractures and multiple Pressure Injuries.Skin assessed under tracheal collar. Skin is erythematous but without any open wounds. GT site is red and excoriated.Scattered senile purpuras bilat upper extremities. Full thickness Sacral Pressure Injury(L)11.8cm x (W)8cm. Base of wound is 75% mixed necrosis and slough,20% antonio. Bone is palpable at base. Edges are macerated. Mild odor noted. Small amt brown exudate noted. Periwound is indurated and maroon with additional erythema and scattered Partial thickness shearing. Full Thickness Pressure Injury L trochanteric with undermined borders.(L)5cm x (W)7cm x (D)2.6cm, undermining clockwise 11-2 by 4.2cm @11o'clock. Base of wound is 75%% mixed necrosis and slough,25% antonio. Wound has appearance of two wounds secondary necrotic bridge.In addition, periwound at clockwise 10-2o'clock the base is necrotic and fluctuant with marginal erythema. Small amt malodorous haemopurulent exudate noted. Full thickness Pressure Injury L Ischium(L)3.5cm x (W)2.0cm. Base of wound is 80% slough,20% antonio. Surrounding necrotic borders that are fluctuant.Small amt sanguineous exudate. Mild odor noted. Full thickness Pressure Injury lateral L Tibia to L lateral Malleolus(L)24.5cm x (W)3.5cm. Base of wound is antonio with scattered necrosis and slough, tendon exposure. Semi-detached borders that indurated and macerated with an area of soft necrosis at proximal borders of wound. Small amt haemopurulent exudate noted. No odor noted. Full thickness Pressure Injury L Heel(L)10.3cm x (W)7.5cm. Base of wound is 60% necrotic,10% slough,30% antonio. Bone is palpable. Borders are indurated with a portion of borders rolled giving heel a shaved appearance. Moderate amt haemopurulent exudate. Mild odor noted.Periwound is purpuric and fluctuant. Full thickness Pressure Injury medial/lateral L foot(L)3.5cm x (W)3.5cm x (D)0.3cm. Base of wound is antonio. Borders and periwound are purpuric and fluctuant.Small amt sanguineous exudate noted. Unstageable Pressure Injury Distal/Lateral L foot(L)2.7cm x (W)4.3cm. Base of wound is 80% soft necrosis,20% antonio. Edges are adherent to base of wound. Periwound is purpuric and fluctuant. Full thickness Pressure Injury R heel Plantar(L)8.5cm x (W)9cm. Base of pressure with scattered necrosis and slough,otherwise base of wound is antonio. Edges are macerated with surrounding necrosis. Small amt seropurulent exudate noted.Mild odor noted. Stable dry eschar dorsal R foot1.5cm x (W)1cm. Edges are adherent to base of wound. No erythema,induration or fluctuance periwound. Stable dry eschar distal/lateral R foot (L)0.8cm x (W)0.8cm. NO erythema,induration or fluctuance periwound. R foot is edematous. Tx.Plan: Cleanse Sacral wound with Dakin's Kristel 0.25%. Apply Dakin's moistened kerlix to wound. Apply Triad periwound. Cover with Optifoam drsg. Change Daily and prn. Cleanse L trochanteric Wound with Dakin's Kristel 0.25%. Loosely pack with Dakin's moistened Kerlix, Apply Moisture Barrier Periwound. Cover with Optifoam drsg Daily and prn. Cleanse R Ischial wound with Dakin's Kristel 0.25%. Apply Dakin's moistened gauze to wound. Apply Moisture Barrier Paste periwound. Cover with Optifoam drsg Daily and prn. Cleanse wounds Lateral R lower extremity, R Heel and Lateral R foot with Dakin's Kristel 0.25%. Place Dakin's Moistened gauze to wounds. Apply Triad Paste along edges of wound. Cover wounds with ABD Pads. Wrap with Kerlix from Base of toes. Cleanse wound R heel with Dakin's Kristel 0.25%. Apply Dakin's moistened Gauze to wound. Apply Triad Periwound. Cover with ABD PAd and wrap with Kerlix. Swab dry Eschar dorsal and Lateral aspect of R foot .Cover with Abd Pads and Wrap with Kerlix Daily and prn. Wash GT site with Soap and water. Apply Triad Paste Daily and prn(Leave Open to Air) Reposition at least every 2hours or as tolerated. Place Pillow Between Knees. Off-Load Heels with Pillow. APM/TERRIE Mattress overlay. Loose non-viable tissue of R Heel removed by . Scattered slough at b ase of wound. Wound is malodorous. Cleansed with Dakin's 0.25% kristel. Dakin's moistened gauze applied . Triad Paste applied along borders. Covered with ABD pad and wrapped with Kerlix. Wound Lateral L Tibia re-evaluated . Base of wound is moist,granular, small area of bone and tendon exposure. noted. Small amt sanguineous exudate noted. No odor noted . Edges are adherent to base of wound. No evidence of additional skin breakdown periwound . New Tx orders received from for Promogran. Tx amended and applied as per Md's orders. Tx.Plan:Cleanse Lateral L Tibia with Saline. Apply Promogran to wound. Cover with ABD Pad. Wrap with Kerlix. Change every [id number]. (2) Anemia Assessment & Plan: trend h/h prbc prn (3) UTI (urinary tract infection) (4) Pleural effusion, left Assessment & Plan: Lungs: Hazy left lung attenuation could be due to consolidation, pulmonary edema; correlate with presentation. Retrocardiac atelectasis without or with consolidation. Pleural space: Small-moderate left pleural effusion with passive atelectasis. No pneumothorax. Heart: Unremarkable. No cardiomegaly. Mediastinum: Unremarkable. Bones/joints: No acute abnormality Tubes, lines and devices: Tracheostomy. Right upper extremity PICC tip in the mid SVC. IMPRESSION: 1. Tracheostomy. 2. Right upper extremity PICC tip in the mid SVC. 3. Small-moderate left pleural effusion with passive atelectasis. 4. Hazy left lung attenuation could be due to consolidation, pulmonary edema; correlate with presentation. 5. Retrocardiac atelectasis without or with consolidation. 6. Recommend CT chest with IV contrast to further characterize these findings. (5) Malfunction of gastrostomy tube Assessment & Plan: DAILY ESTIMATED NEEDS: Needs based on Wounds, pulmonary/ 74.5kg 25-30 kcals/kg 5135-1434 total kcals 1.5-2 g protein/kg 111-149 g total protein 25-30 mL/kg 4085-3348 total fluid mLs NUTRITION DIAGNOSIS: * Swallowing difficulty R/T dysphagia, h/o craniotomy, respiratory failure as evidenced by pt on T-collar, GJ tube dependent. * Increased kcal/prot/micronutrients needs R/T wound healing as evidenced by pt admitted w/ multiple advanced wounds including full thickness wound x 7 and unstageable wounds x 2, refer to WC eval. CURRENT TF:Jevity 1.2 @ 60ml/hr x 24 hrs-> now Glucerna 1.2 ENTERAL NUTRITION RECOMMENDATIONS: Glucerna 1.2 @ 65ml/hr x 24 hrs + Prosource 1pkt TID to provide 1560ml, 1872kcal, 94g+ 33g prot, 1259ml free water * Increase goal rate to 65ml/hr x 24 hrs to better meet est needs * Add Prosource 1pkt TID to meet increased protein needs * HOB over 30 degrees/ water flush 150ml q 6hrs without IVF ADDITIONAL RECOMMENDATIONS: * Calibrated bedscale wt * Wound Care: Con't Vit C 500mg BID, ZnSO4 220mg QD x 10 days add Stevie BID * Monitor BGs, need for carb controlled TF -> now on Glucerna 1.2 * Monitor lytes, replete as needed (6) Acute respiratory failure with hypoxia (7) HCAP (healthcare-associated pneumonia) Additional Comments of note, on 08/11 patient was seen and examined but unfortunately was unable to write note for log in issues Deny Westfall Aug 12, 2020 10:32
--- NOTE | 2020-08-12 11:00 | NUR ---
NURSE NOTES: Patient distated to 89%, Suctioned and oral care given. No distress at this time.
[2020-08-12 12:00] VITALS: BP 105/55
[2020-08-12 16:00] VITALS: BP 127/74
--- NOTE | 2020-08-12 16:02 | NUR ---
CASE MANAGEMENT: REVIEW SI: PNA. UTI. BACTEREMIA. UGIB. PLEURAL EFFUSION THORACENTESIS 08/11 T 99.0 HR 125 RR 26 SAT 94% TRACH COLLAR FLOW RATE 12.0 IS: AMIODARONE GT QD ZINC GT QD LOPRESSOR GT Q12 LIPITOR GT QHS VIT C GT BID KEPPRA GT Q12 : TELEMETRY STATUS DCP: FROM HOME
[2020-08-12] MEDS: Acetaminophen 650mg/20.3ml GT PRN (16:22)
--- NOTE | 2020-08-12 16:30 | NUR ---
NURSE NOTES: Rectal tube removed, No BM at this time. Wound care done and changed the bed and changed to new gown. No distress noted. Will continue to monitor
--- NOTE | 2020-08-12 17:22 | General Progress Note ---
Subjective ROS Limited/Unobtainable: Yes Constitutional: Reports: weakness HEENT: Reports: no symptoms Cardiovascular: Reports: no symptoms Respiratory: Reports: cough, shortness of breath, sputum Gastrointestinal/Abdominal: Reports: difficulty swallowing Genitourinary: Reports: no symptoms Neurologic/Psychiatric: Reports: pre-existing deficit Endocrine: Reports: no symptoms Hematologic/Lymphatic: Reports: no symptoms Allergies: Coded Allergies: No Known Allergies (Unverified , 11/02/19) All Systems: reviewed and negative except above Subjective No significant events. Awake but nonverbal. Confused. Tolerating tube feeds. No reports of bleeding. Labs noted. On trach collar at 12 L. Objective Last 24 Hour Vital Signs Date Time Temp Pulse Resp B/P (MAP) Pulse Ox O2 Delivery O2 Flow Rate FiO2 08/12/20 16:00 121 08/12/20 13:51 117 105/55 08/12/20 13:00 93 T-Piece 10.0 35 08/12/20 12:00 117 08/12/20 12:00 99.0 125 26 105/55 (72) 94 08/12/20 09:00 Trach Collar 12.0 08/12/20 08:00 98.6 103 24 124/62 (82) 96 08/12/20 08:00 94 08/12/20 07:30 93 T-Piece 10.0 35 08/12/20 05:03 90 100/60 08/12/20 04:00 98.2 90 24 100/60 (73) 94 08/12/20 03:30 90 08/12/20 01:08 97 T-Piece 10.0 35 08/12/20 00:00 110 08/12/20 00:00 99.8 108 24 100/62 (75) 94 08/11/20 23:03 113 111/59 08/11/20 21:00 Trach Collar 12.0 08/11/20 20:00 108 08/11/20 20:00 108 08/11/20 20:00 99.8 109 24 103/62 (76) 98 08/11/20 19:54 96 T-Piece 12.0 50 Intake and Output 08/11/20 08/12/20 19:00 07:00 Intake Total 660 ml 60 ml Output Total 1200 ml Balance 660 ml -1140 ml Tube Feeding 660 ml 60 ml Output Urine Total 800 ml Stool Total 400 ml Height (Feet): 5 Height (Inches): 4.00 Weight (Pounds): 171 Objective General Appearance: WD/WN, confused EENT: normal ENT inspection Neck: normal alignment Cardiovascular: normal rate, regular rhythm Respiratory/Chest: rhonchi - bilaterally Abdomen: normal bowel sounds, non tender, soft, no organomegaly Edema: no edema noted Leg (L), no edema noted Leg (R) Neurologic: disoriented, aphasia Skin: normal pigmentation Assessment/Plan Problem List: (1) Anemia ICD Codes: D64.9 - Anemia, unspecified SNOMED: 423103471, 379230809 Qualifiers: Qualified Codes: D50.0 - Iron deficiency anemia secondary to blood loss (chronic) (2) Pleural effusion, left ICD Codes: J90 - Pleural effusion, not elsewhere classified SNOMED: 02741943, 291429316 (3) Malfunction of gastrostomy tube ICD Codes: K94.23 - Gastrostomy malfunction SNOMED: 087299876 (4) Acute respiratory failure with hypoxia ICD Codes: J96.01 - Acute respiratory failure with hypoxia SNOMED: 42848824, 159781998 (5) HCAP (healthcare-associated pneumonia) ICD Codes: J18.9 - Pneumonia, unspecified organism SNOMED: 583321212, 317061024 Status: stable, progressing Assessment/Plan: Continue trach collar. Oxygen as needed Keep sats greater than 92% Pulmonary toilet suctioning G-tube feeds Monitor residuals Cautious resumption of anticoagulation-cleared by GI Continue H2 ezekiel Monitor lites IV fluids as needed Turn every 2 hours Poor long-term prognosis for meaningful recovery Angel Jaramillo MD Aug 12, 2020 17:22
[2020-08-12] MEDS: Amiodarone 200mg tab GT SCH (18:12)
--- NOTE | 2020-08-12 19:05 | NUR ---
NURSE HAND-OFF REPORT: Important Events on Shift:Rectal tube removed Patient Status: Stable Diet: tube feeding Pending Orders: Thoracentesis Pending Results/Labs:Morning labs Pending MD notification:n/a Latest Vital Signs: Temperature 98.6 , Pulse 112 , B/P 127 /74 , Respiratory Rate 26 , O2 SAT 92 , Trach Collar, O2 Flow Rate 10.0 . Vital Sign Comment: stable EKG Rhythm: Sinus Tachycardia Rhythm change?: N MD Notified?: N -Dr. Aubree VALDEZ Response: Message left await call Latest Ramirez Fall Score: 50 Fall Risk: High Risk Safety Measures: Call light Within Reach, Bed Alarm Zone 1, Side Rails Side Rails x2, Bed position Low and Locked. Fall Precautions: Patient Fall Education Report given to Azam/SELIN.
--- NOTE | 2020-08-12 19:10 | NUR ---
NURSE NOTES: Patient received from SELIN Alston. AAOx0, aphasic. PICC line flushed and port changed. On 12lpm oxygen per trach collar, saturating >90%. Frequent suctioning needed to maintain optimal oxygenation. On GT feeding, running at a prescribed rate. Wound care noted as ordered. Bed in lowest position, brakes engaged and bed alarm on. Call light placed within reach. Will continue to monitor
[2020-08-12 20:00] VITALS: BP 101/61
[2020-08-12] MEDS: Atorvastatin 20mg tab ORAL SCH (21:23)
[2020-08-12] MEDS: Dyna-Hex 2% Top Sol 2oz TOPIC SCH (21:23)
--- NOTE | 2020-08-12 22:11 | General Progress Note ---
Subjective Allergies: Coded Allergies: No Known Allergies (Unverified , 11/02/19) Subjective Above noted non communicative stools appear thicker orders given to d/c rectal tube tolerating TF Objective Last 24 Hour Vital Signs Date Time Temp Pulse Resp B/P (MAP) Pulse Ox O2 Delivery O2 Flow Rate FiO2 08/12/20 22:00 97 101/61 08/12/20 16:52 98.6 08/12/20 16:00 121 08/12/20 16:00 98.6 112 26 127/74 (91) 92 08/12/20 13:51 117 105/55 08/12/20 13:00 93 T-Piece 10.0 35 08/12/20 12:00 117 08/12/20 12:00 99.0 125 26 105/55 (72) 94 08/12/20 09:00 Trach Collar 12.0 08/12/20 08:00 98.6 103 24 124/62 (82) 96 08/12/20 08:00 94 08/12/20 07:30 93 T-Piece 10.0 35 08/12/20 05:03 90 100/60 08/12/20 04:00 98.2 90 24 100/60 (73) 94 08/12/20 03:30 90 08/12/20 01:08 97 T-Piece 10.0 35 08/12/20 00:00 110 08/12/20 00:00 99.8 108 24 100/62 (75) 94 08/11/20 23:03 113 111/59 Intake and Output 08/11/20 08/12/20 19:00 07:00 Intake Total 660 ml 120 ml Output Total 1200 ml Balance 660 ml -1080 ml Tube Feeding 660 ml 120 ml Output Urine Total 800 ml Stool Total 400 ml Height (Feet): 5 Height (Inches): 4.00 Weight (Pounds): 171 Objective Eldely WM NCAT (+) trach , T tube Coarse BS RRR abd soft (+) GT ext no edema Assessment/Plan Status: stable, progressing Assessment/Plan: Assessment - UGIB - resolved - Anemia, s/p transfusion - h/o PUD - resp failure, s/p trach - dysphagia, s/p PEG - atrial fibrillation - h/o DVT - hypernatremia - lose stools - improved Recommendations - anticoagulation - H2B BID indefinitely - vital AF - free water - follow H&H - d/c rectal tube Akiko Rai MD Aug 12, 2020 22:11
[2020-08-13] VITALS: BP 93/64
--- NOTE | 2020-08-13 01:04 | Cardiology Progress Note ---
Subjective DATE OF SERVICE: Aug 12, 2020 Withdrawn and non-verbal No new bleeding; back on anticoagulation now following GI clearance. BP parameters stabilized. Monitor: AFib/flutter persisting with increased ventricular rates now. Objective Last 24 Hour Vital Signs Date Time Temp Pulse Resp B/P (MAP) Pulse Ox O2 Delivery O2 Flow Rate FiO2 08/13/20 00:00 98.3 109 24 93/64 (74) 95 08/13/20 00:00 114 08/12/20 23:45 95 T-Piece 10.0 35 08/12/20 22:00 97 101/61 08/12/20 21:00 Trach Collar 12.0 08/12/20 20:00 101 08/12/20 20:00 98.1 109 24 101/61 (74) 91 08/12/20 16:52 98.6 08/12/20 16:00 121 08/12/20 16:00 98.6 112 26 127/74 (91) 92 08/12/20 13:51 117 105/55 08/12/20 13:00 93 T-Piece 10.0 35 08/12/20 12:00 117 08/12/20 12:00 99.0 125 26 105/55 (72) 94 08/12/20 09:00 Trach Collar 12.0 08/12/20 08:00 98.6 103 24 124/62 (82) 96 08/12/20 08:00 94 08/12/20 07:30 93 T-Piece 10.0 35 08/12/20 05:03 90 100/60 08/12/20 04:00 98.2 90 24 100/60 (73) 94 08/12/20 03:30 90 08/12/20 01:08 97 T-Piece 10.0 35 ROS: unchanged from 07/14/20 HEENT: Thick Trach secretions RHYTHM: NSR, ST, PACs, Afib LUNGS: bilateral rhonchi, other - decreased BS left base CARDIAC: normal S1 and S2, rapid rate, arrhythmia ABDOMEN: normal bowel sounds, soft, G-Tube intact EXTREMITIES: normal range of motion, non-tender, trace edema, other - withdrawn Assessment/Plan Assessment/Plan Healthcare associated PNA Paroxysmal atrial fibrillation/flutter Paroxysmal atrial ectopy 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 Dyslipidemia on high dose statin - now dose adjusted Dehydration/hypernatremia Severe protein-calorie malnutrition Multiple wounds Anemia - s/p tx Advance current beta blockade dose further. Abx Resp support Cardiac monitoring Statin dose adjusted Amiodarone at increased dose again to maintain sinus rhythm. Free water replacement as needed; off IVF for now. Resume anticoagulation with caution due to bleeding risk Dylan Mak MD Aug 13, 2020 01:04
[2020-08-13 04:00] VITALS: BP 102/61
--- NOTE | 2020-08-13 07:01 | NUR ---
NURSE HAND-OFF REPORT: Important Events on Shift:[Pt asleep. Suctioned frequently] Patient Status: [full code] Diet: [tube feeding: vital af 1.2 @60] Pending Orders: [] Pending Results/Labs:[US thoracentesis today] Pending MD notification:[] Latest Vital Signs: Temperature 98.6 , Pulse 104 , B/P 102 /61 , Respiratory Rate 28 , O2 SAT 95 , Trach Collar, O2 Flow Rate 10.0 . Vital Sign Comment: [] EKG Rhythm: Sinus Tachycardia Rhythm change?: N MD Notified?: N -Dr. Aubree VALDEZ Response: Message left await call Latest Ramirez Fall Score: 50 Fall Risk: High Risk Safety Measures: Call light Within Reach, Bed Alarm Zone 1, Side Rails Side Rails x2, Bed position Low and Locked. Fall Precautions: Patient Fall Education Report given to [SELIN Alston].
--- NOTE | 2020-08-13 07:05 | NUR ---
NURSE NOTES: Received report from Azam/RN, Observed patient asleep, Lying semi-johnston's, resting comfortably. On Trach collar 12L, FiO2 50%, no acute distress/SOB noted. Right upper Arm PICC line patent and intact running TKO. Vital A.F running at 60cc/hr. [place] draining well to gravity. Bed in low position and locked, Call light within reach. Will continue plan of care.
[2020-08-13 07:11] LABS: HEMATOCRIT 25.5 % (42.0-52.0); HEMOGLOBIN 7.9 G/DL (14.2-18.0); MEAN CORPUSCULAR VOLUME 89 FL (80-99); PLATELET COUNT 462 K/UL (150-450); RED BLOOD COUNT 2.86 M/UL (4.70-6.10); WHITE BLOOD COUNT 8.9 K/UL (4.8-10.8)
[2020-08-13 07:26] LABS: ANION GAP 2 mmol/L (5-15); BLOOD UREA NITROGEN 44 mg/dL (7-18); CALCIUM 8.4 MG/DL (8.5-10.1); CARBON DIOXIDE 34 MMOL/L (21-32); CHLORIDE 110 MMOL/L (98-107); POTASSIUM 4.8 MMOL/L (3.5-5.1); SODIUM 146 MMOL/L (136-145)
[2020-08-13 07:31] LABS: INR 1.1 (0.9-1.1)
[2020-08-13 08:00] VITALS: BP 102/58
[2020-08-13] MEDS: Ascorbic Acid 500mg tab GT SCH ×2 (08:35→17:36)
[2020-08-13] MEDS: Zinc Sulfate 220mg GT SCH (08:36)
[2020-08-13] MEDS: Metoprolol Tartrate 100mg tab ORAL SCH ×2 (08:36→20:39)
[2020-08-13] MEDS: Dakin's 0.25% (Half Strength) 16oz TOPIC SCH (08:37)
[2020-08-13 12:00] VITALS: BP 100/52
--- NOTE | 2020-08-13 12:30 | NUR ---
NURSE NOTES: Blood transfusion started, Pre and post Vital sign taken, WNL. Will continue to monitor.
--- NOTE | 2020-08-13 12:35 | Pre-Procedure Note/Attestation ---
Pre-Procedure Note/Attestation Complete Prior to Procedure Planned Procedure: left Procedure Narrative: Thoracentesis Indications for Procedure Pre-Operative Diagnosis: pleural effusion Attestation I attest that I discussed the nature of the procedure; its benefits; risks and complications; and alternatives (and the risks and benefits of such alternatives), prior to the procedure, with the patient (or the patient's legal group sales representative). I attest that, if there was a reasonable possibility of needing a blood turner sfusion, the patient (or the patient's legal group sales representative) was given the [facility] standardized written summary, pursuant to the Carlos Hernán Blood Safety Act ([place] Health and Safety Code # 1645, as amended). I attest that I re-evaluated the patient just prior to the surgery and that there has been no change in the patient's H&P, except as documented below: Discussed by phone with pt's. daughter Carole Leavikdarya Marty Nelson MD Aug 13, 2020 12:35
--- NOTE | 2020-08-13 13:22 | NUR ---
RD ASSESSMENT & RECOMMENDATIONS SEE CARE ACTIVITY FOR COMPLETE ASSESSMENT DAILY ESTIMATED NEEDS: Needs based on Wounds, pulmonary/ 74.5kg 25-30 kcals/kg 4404-5153 total kcals 1.5-2 g protein/kg 111-149 g total protein 25-30 mL/kg 4277-8006 total fluid mLs NUTRITION DIAGNOSIS: * Swallowing difficulty R/T dysphagia, h/o craniotomy, respiratory failure as evidenced by pt on T-collar, GJ tube dependent. * Increased kcal/prot/micronutrients needs R/T wound healing as evidenced by pt admitted w/ multiple advanced wounds including full thickness wound x 7 and unstageable wounds x 2, refer to WC eval. CURRENT TF:Jevity 1.2 @ 60ml/hr x 24 hrs-> now Glucerna 1.2 -> now Vital AF 1.2 ENTERAL NUTRITION RECOMMENDATIONS: Vital AF 1.2 @ 65ml/hr x 24 hrs to provide 1560ml, 1872kcal, 117g prot, 1265ml free water * Increase goal rate to 65ml/hr x 24 hrs to better meet est needs * HOB over 30 degrees/ water flush 180ml q 6hrs without IVF ADDITIONAL RECOMMENDATIONS: * Calibrated bedscale wt * Wound Care: Con't Vit C 500mg BID, ZnSO4 220mg QD x 10 days add Stevie BID * Monitor lytes, replete as needed * Increase water flushes: elev Na and BUN .
--- NOTE | 2020-08-13 14:31 | Brief Operative Note ---
Immediate Post Operative Note Operative Note Pre-op Diagnosis: pleural effusion Procedure: thoracentesis Surgeon: kristel Edmonds Anesthesia: local Specimen: none Complications: none Fluids: none Estimated Blood Loss: none Implant(s) used?: No Marty Edmonds MD Aug 13, 2020 14:31
--- NOTE | 2020-08-13 15:04 | NUR ---
RADIOLOGY DEPT., CHEST POST THORA HAS BEEN COMPLETED.-P.DYE
--- NOTE | 2020-08-13 15:22 | Diagnostic Imaging Report ---
Indication: Cough, status post thoracentesis Technique: One view of the chest Comparison: 08/10/2020 Findings: Interim decreased size of previously demonstrated left pleural effusion. Partial reexpansion of the left lung. Considerable opacity of the left lung base, may reflect residual pleural fluid or atelectatic lung. No pneumothorax Inspiration is suboptimal. There is crowding of the bronchovascular markings on the right Tracheostomy and left-sided ventriculoperitoneal shunt tubing again demonstrated, as well as right arm PICC. Impression: Decreased left pleural effusion and partial reexpansion of the left lung, status post left thoracentesis. No radiographically evident complication Other findings as noted
--- NOTE | 2020-08-13 15:23 | Diagnostic Imaging Report ---
Indications: Pleural effusion Technique: Ultrasound used to localize optimal puncture site. Sterile prepping and draping left chest. Local anesthesia with 1% lidocaine. Under real-time ultrasound guidance, puncture pleural space using thoracentesis needle. Stylet removed. Catheter placed to vacuum bottle suction. Total 1700 milliliters of fluid aspirated. Patient tolerated procedure well, without immediate complication. Findings: Followup sonography demonstrates small amount of residual pleural fluid. Impression: Successful ultrasound-guided thoracentesis, yielding 1700 milliliters of fluid
[2020-08-13 16:00] VITALS: BP 103/55
--- NOTE | 2020-08-13 16:24 | General Progress Note ---
Subjective ROS Limited/Unobtainable: No Constitutional: Reports: malaise, weakness HEENT: Reports: no symptoms Cardiovascular: Reports: no symptoms Respiratory: Reports: cough, shortness of breath, sputum Gastrointestinal/Abdominal: Reports: difficulty swallowing Genitourinary: Reports: no symptoms Neurologic/Psychiatric: Reports: pre-existing deficit Endocrine: Reports: no symptoms Hematologic/Lymphatic: Reports: anemia Allergies: Coded Allergies: No Known Allergies (Unverified , 11/02/19) Subjective No overnight events. Stable on trach collar. Awake but nonverbal and poorly responsive. Does not track or follow commands. Tolerating G-tube feeds. Labs reviewed. Objective Last 24 Hour Vital Signs Date Time Temp Pulse Resp B/P (MAP) Pulse Ox O2 Delivery O2 Flow Rate FiO2 08/13/20 16:00 97.7 100 24 103/55 (71) 93 08/13/20 12:00 93 08/13/20 12:00 97.9 92 22 100/52 (68) 96 08/13/20 09:00 Trach Collar 12.0 08/13/20 08:36 114 102/58 08/13/20 08:00 109 08/13/20 08:00 98.6 114 22 102/58 (73) 95 08/13/20 04:00 104 08/13/20 04:00 98.6 110 28 102/61 (75) 95 08/13/20 00:00 98.3 109 24 93/64 (74) 95 08/13/20 00:00 114 08/12/20 23:45 95 T-Piece 10.0 35 08/12/20 22:00 97 101/61 08/12/20 21:00 Trach Collar 12.0 08/12/20 20:00 101 08/12/20 20:00 98.1 109 24 101/61 (74) 91 08/12/20 16:52 98.6 Intake and Output 08/12/20 08/13/20 19:00 07:00 Intake Total 1120 ml 660 ml Output Total 950 ml 600 ml Balance 170 ml 60 ml Intake Free Water 400 ml Tube Feeding 720 ml 660 ml Output Urine Total 950 ml 600 ml Laboratory Tests 08/13/20 06:30: White Blood Count 8.9, Red Blood Count 2.86L, Hemoglobin 7.9L, Hematocrit 25.5L, Mean Corpuscular Volume 89, Mean Corpuscular Hemoglobin 27.6, Mean Corpuscular Hemoglobin Concent 31.0L, Red Cell Distribution Width 16.0H, Platelet Count 462H , Mean Platelet Volume 5.9L, Neutrophils (%) (Auto) , Lymphocytes (%) (Auto) , Monocytes (%) (Auto) , Eosinophils (%) (Auto) , Basophils (%) (Auto) , Differential Total Cells Counted 100, Neutrophils % (Manual) 84H, Lymphocytes % (Manual) 13L, Monocytes % (Manual) 1, Eosinophils % (Manual) 2, Basophils % (Manual) 0, Band Neutrophils 0, Platelet Estimate Adequate, Platelet Morphology Normal, Hypochromasia 1+, Anisocytosis 1+, Prothrombin Time 11.6H, Prothromb Time International Ratio 1.1, Activated Partial Thromboplast Time 25, Sodium Level 146H, Potassium Level 4.8, Chloride Level 110H, Carbon Dioxide Level 34H, Anion Gap 2L, Blood Urea Nitrogen 44H, Creatinine 1.0, Estimat Glomerular Filtration Rate > 60, Glucose Level 100, Calcium Level 8.4L, Pro-B-Type Natriuretic Peptide 3093H Height (Feet): 5 Height (Inches): 4.00 Weight (Pounds): 171 Objective General Appearance: WD/WN, confused EENT: normal ENT inspection Neck: normal alignment Cardiovascular: normal rate, regular rhythm Respiratory/Chest: rhonchi - bilaterally Abdomen: normal bowel sounds, non tender, soft, no organomegaly Edema: no edema noted Leg (L), no edema noted Leg (R) Neurologic: disoriented, aphasia Skin: normal pigmentation Assessment/Plan Problem List: (1) Anemia ICD Codes: D64.9 - Anemia, unspecified SNOMED: 583699784, 226495036 Qualifiers: Qualified Codes: D50.0 - Iron deficiency anemia secondary to blood loss (chronic) (2) Pleural effusion, left ICD Codes: J90 - Pleural effusion, not elsewhere classified SNOMED: 69147696, 278693492 (3) Malfunction of gastrostomy tube ICD Codes: K94.23 - Gastrostomy malfunction SNOMED: 283281487 (4) Acute respiratory failure with hypoxia ICD Codes: J96.01 - Acute respiratory failure with hypoxia SNOMED: 05534852, 821048789 (5) HCAP (healthcare-associated pneumonia) ICD Codes: J18.9 - Pneumonia, unspecified organism SNOMED: 465130546, 008414437 Status: stable, progressing Assessment/Plan: Continue trach collar. Oxygen as needed Keep sats greater than 92% Pulmonary toilet suctioning G-tube feeds Monitor residuals Cautious resumption of anticoagulation-cleared by GI Continue H2 ezekiel Monitor lites IV fluids as needed Turn every 2 hours Poor long-term prognosis for meaningful recovery Angel Jaramillo MD Aug 13, 2020 16:24
--- NOTE | 2020-08-13 16:37 | Surgery Progress Note ---
Surgery Progress Note Subjective Additional Comments s/p thora 1700 cc out improved Objective Last 24 Hour Vital Signs Date Time Temp Pulse Resp B/P (MAP) Pulse Ox O2 Delivery O2 Flow Rate FiO2 08/13/20 16:00 97.7 100 24 103/55 (71) 93 08/13/20 12:00 93 08/13/20 12:00 97.9 92 22 100/52 (68) 96 08/13/20 09:00 Trach Collar 12.0 08/13/20 08:36 114 102/58 08/13/20 08:00 109 08/13/20 08:00 98.6 114 22 102/58 (73) 95 08/13/20 04:00 104 08/13/20 04:00 98.6 110 28 102/61 (75) 95 08/13/20 00:00 98.3 109 24 93/64 (74) 95 08/13/20 00:00 114 08/12/20 23:45 95 T-Piece 10.0 35 08/12/20 22:00 97 101/61 08/12/20 21:00 Trach Collar 12.0 08/12/20 20:00 101 08/12/20 20:00 98.1 109 24 101/61 (74) 91 08/12/20 16:52 98.6 I&O Intake and Output 08/12/20 08/13/20 19:00 07:00 Intake Total 1120 ml 660 ml Output Total 950 ml 600 ml Balance 170 ml 60 ml Intake Free Water 400 ml Tube Feeding 720 ml 660 ml Output Urine Total 950 ml 600 ml Dressing: dry Cardiovascular: RSR Respiratory: clear, decreased breath sounds Abdomen: soft, non-tender, present bowel sounds Extremities: no tenderness, no cyanosis, other Laboratory Tests Test 08/13/20 06:30 White Blood Count 8.9 K/UL (4.8-10.8) Red Blood Count 2.86 M/UL (4.70-6.10) L Hemoglobin 7.9 G/DL (14.2-18.0) L Hematocrit 25.5 % (42.0-52.0) L Mean Corpuscular Volume 89 FL (80-99) Mean Corpuscular Hemoglobin 27.6 PG (27.0-31.0) Mean Corpuscular Hemoglobin Concent 31.0 G/DL (32.0-36.0) L Red Cell Distribution Width 16.0 % (11.6-14.8) H Platelet Count 462 K/UL (150-450) H Mean Platelet Volume 5.9 FL (6.5-10.1) L Neutrophils (%) (Auto) % (45.0-75.0) Lymphocytes (%) (Auto) % (20.0-45.0) Monocytes (%) (Auto) % (1.0-10.0) Eosinophils (%) (Auto) % (0.0-3.0) Basophils (%) (Auto) % (0.0-2.0) Differential Total Cells Counted 100 Neutrophils % (Manual) 84 % (45-75) H Lymphocytes % (Manual) 13 % (20-45) L Monocytes % (Manual) 1 % (1-10) Eosinophils % (Manual) 2 % (0-3) Basophils % (Manual) 0 % (0-2) Band Neutrophils 0 % (0-8) Platelet Estimate Adequate Platelet Morphology Normal Hypochromasia 1+ Anisocytosis 1+ Prothrombin Time 11.6 SEC (9.30-11.50) H Prothromb Time International Ratio 1.1 (0.9-1.1) Activated Partial Thromboplast Time 25 SEC (23-33) Sodium Level 146 MMOL/L (136-145) H Potassium Level 4.8 MMOL/L (3.5-5.1) Chloride Level 110 MMOL/L (98-107) H Carbon Dioxide Level 34 MMOL/L (21-32) H Anion Gap 2 mmol/L (5-15) L Blood Urea Nitrogen 44 mg/dL (7-18) H Creatinine 1.0 MG/DL (0.55-1.30) Estimat Glomerular Filtration Rate > 60 mL/min (>60) Glucose Level 100 MG/DL (74-106) Calcium Level 8.4 MG/DL (8.5-10.1) L Pro-B-Type Natriuretic Peptide 3093 pg/mL (0-125) H Plan Problems: (1) Decubitus skin ulcer Assessment & Plan: Pt presented on admission with PV shunt,Tracheostomy, Contractures and multiple Pressure Injuries.Skin assessed under tracheal collar. Skin is erythematous but without any open wounds. GT site is red and excoriated.Scattered senile purpuras bilat upper extremities. Full thickness Sacral Pressure Injury(L)11.8cm x (W)8cm. Base of wound is 75% mixed necrosis and slough,20% antonio. Bone is palpable at base. Edges are macerated. Mild odor noted. Small amt brown exudate noted. Periwound is indurated and maroon with additional erythema and scattered Partial thickness shearing. Full Thickness Pressure Injury L trochanteric with undermined borders.(L)5cm x (W)7cm x (D)2.6cm, undermining clockwise 11-2 by 4.2cm @11o'clock. Base of wound is 75%% mixed necrosis and slough,25% antonio. Wound has appearance of two wounds secondary necrotic bridge.In addition, periwound at clockwise 10-2o'clock the base is necrotic and fluctuant with marginal erythema. Small amt malodorous haemopurulent exudate noted. Full thickness Pressure Injury L Ischium(L)3.5cm x (W)2.0cm. Base of wound is 80% slough,20% antonio. Surrounding necrotic borders that are fluctuant.Small amt sanguineous exudate. Mild odor noted. Full thickness Pressure Injury lateral L Tibia to L lateral Malleolus(L)24.5cm x (W)3.5cm. Base of wound is antonio with scattered necrosis and slough, tendon exposure. Semi-detached borders that indurated and macerated with an area of soft necrosis at proximal borders of wound. Small amt haemopurulent exudate noted. No odor noted. Full thickness Pressure Injury L Heel(L)10.3cm x (W)7.5cm. Base of wound is 60% necrotic,10% slough,30% antonio. Bone is palpable. Borders are indurated with a portion of borders rolled giving heel a shaved appearance. Moderate amt haemopurulent exudate. Mild odor noted.Periwound is purpuric and fluctuant. Full thickness Pressure Injury medial/lateral L foot(L)3.5cm x (W)3.5cm x (D)0.3cm. Base of wound is antonio. Borders and periwound are purpuric and fluctuant.Small amt sanguineous exudate noted. Unstageable Pressure Injury Distal/Lateral L foot(L)2.7cm x (W)4.3cm. Base of wound is 80% soft necrosis,20% antonio. Edges are adherent to base of wound. Periwound is purpuric and fluctuant. Full thickness Pressure Injury R heel Plantar(L)8.5cm x (W)9cm. Base of pressure with scattered necrosis and slough,otherwise base of wound is antonio. Edges are macerated with surrounding necrosis. Small amt seropurulent exudate noted.Mild odor noted. Stable dry eschar dorsal R foot1.5cm x (W)1cm. Edges are adherent to base of wound. No erythema,induration or fluctuance periwound. Stable dry eschar distal/lateral R foot (L)0.8cm x (W)0.8cm. NO erythema,induration or fluctuance periwound. R foot is edematous. Tx.Plan: Cleanse Sacral wound with Dakin's Kristel 0.25%. Apply Dakin's moistened kerlix to wound. Apply Triad periwound. Cover with Optifoam drsg. Change Daily and prn. Cleanse L trochanteric Wound with Dakin's Kristel 0.25%. Loosely pack with Dakin's moistened Kerlix, Apply Moisture Barrier Periwound. Cover with Optifoam drsg Daily and prn. Cleanse R Ischial wound with Dakin's Kristel 0.25%. Apply Dakin's moistened gauze to wound. Apply Moisture Barrier Paste periwound. Cover with Optifoam drsg Daily and prn. Cleanse wounds Lateral R lower extremity, R Heel and Lateral R foot with Dakin's Kristel 0.25%. Place Dakin's Moistened gauze to wounds. Apply Triad Paste along edges of wound. Cover wounds with ABD Pads. Wrap with Kerlix from Base of toes. Cleanse wound R heel with Dakin's Kristel 0.25%. Apply Dakin's moistened Gauze to wound. Apply Triad Periwound. Cover with ABD PAd and wrap with Kerlix. Swab dry Eschar dorsal and Lateral aspect of R foot .Cover with Abd Pads and Wrap with Kerlix Daily and prn. Wash GT site with Soap and water. Apply Triad Paste Daily and prn(Leave Open to Air) Reposition at least every 2hours or as tolerated. Place Pillow Between Knees. Off-Load Heels with Pillow. APM/TERRIE Mattress overlay. Loose non-viable tissue of R Heel removed by . Scattered slough at base of wound. Wound is malodorous. Cleansed with Dakin's 0.25% kristel. Dakin's moistened gauze applied . Triad Paste applied along borders. Covered with ABD pad and wrapped with Kerlix. Wound Lateral L Tibia re-evaluated . Base of wound is moist,granular, small area of bone and tendon exposure. noted. Small amt sanguineous exudate noted. No odor noted . Edges are adherent to base of wound. No evidence of additional skin breakdown periwound . New Tx orders received from for Promogran. Tx amended and applied as per Md's orders. Tx.Plan:Cleanse Lateral L Tibia with Saline. Apply Promogran to wound. Cover with ABD Pad. Wrap with Kerlix. Change every Srg-Ika-Wxtyew. (2) Anemia Assessment & Plan: trend h/h prbc prn (3) UTI (urinary tract infection) (4) Pleural effusion, left Assessment & Plan: Ultrasound used to localize optimal puncture site. Sterile prepping and draping left chest. Local anesthesia with 1% lidocaine. Under real-time ultrasound guidance, puncture pleural space using thoracentesis needle. Stylet removed. Catheter placed to vacuum bottle suction. Total 1700 milliliters of fluid aspirated. Patient tolerated procedure well, without immediate complication. Findings: Followup sonography demonstrates small amount of residual pleural fluid. Impression: Successful ultrasound-guided thoracentesis, yielding 1700 milliliters of fluid Lungs: Hazy left lung attenuation could be due to consolidation, pulmonary edema; correlate with presentation. Retrocardiac atelectasis without or with consolidation. Pleural space: Small-moderate left pleural effusion with passive atelectasis. No pneumothorax. Heart: Unremarkable. No cardiomegaly. Mediastinum: Unremarkable. Bones/joints: No acute abnormality Tubes, lines and devices: Tracheostomy. Right upper extremity PICC tip in the mid SVC. IMPRESSION: 1. Tracheostomy. 2. Right upper extremity PICC tip in the mid SVC. 3. Small-moderate left pleural effusion with passive atelectasis. 4. Hazy left lung attenuation could be due to consolidation, pulmonary edema; correlate with presentation. 5. Retrocardiac atelectasis without or with consolidation. 6. Recommend CT chest with IV contrast to further characterize these findings. (5) Malfunction of gastrostomy tube Assessment & Plan: DAILY ESTIMATED NEEDS: Needs based on Wounds, pulmonary/ 74.5kg 25-30 kcals/kg 7538-1238 total kcals 1.5-2 g protein/kg 111-149 g total protein 25-30 mL/kg 6803-5176 total fluid mLs NUTRITION DIAGNOSIS: * Swallowing difficulty R/T dysphagia, h/o craniotomy, respiratory failure as evidenced by pt on T-collar, GJ tube dependent. * Increased kcal/prot/micronutrients needs R/T wound healing as evidenced by pt admitted w/ multiple advanced wounds including full thickness wound x 7 and unstageable wounds x 2, refer to WC eval. CURRENT TF:Jevity 1.2 @ 60ml/hr x 24 hrs-> now Glucerna 1.2 ENTERAL NUTRITION RECOMMENDATIONS: Glucerna 1.2 @ 65ml/hr x 24 hrs + Prosource 1pkt TID to provide 1560ml, 1872kcal, 94g+ 33g prot, 1259ml free water * Increase goal rate to 65ml/hr x 24 hrs to better meet est needs * Add Prosource 1pkt TID to meet increased protein needs * HOB over 30 degrees/ water flush 150ml q 6hrs without IVF ADDITIONAL RECOMMENDATIONS: * Calibrated bedscale wt * Wound Care: Con't Vit C 500mg BID, ZnSO4 220mg QD x 10 days add Stevie BID * Monitor BGs, need for carb controlled TF -> now on Glucerna 1.2 * Monitor lytes, replete as needed (6) Acute respiratory failure with hypoxia (7) HCAP (healthcare-associated pneumonia) Deny Westfall Aug 13, 2020 16:37
[2020-08-13] MEDS: Amiodarone 200mg tab GT SCH (17:36)
--- NOTE | 2020-08-13 17:47 | Pulmonology Progress Note ---
Subjective ROS Limited/Unobtainable: Yes Allergies: Coded Allergies: No Known Allergies (Unverified , 11/02/19) All Systems: reviewed and negative except above Subjective CARE NOTED nonverbal on oxygen no distress at present; meds renewed trach collar imaging noted and underwent repeat tap Objective Last 24 Hour Vital Signs Date Time Temp Pulse Resp B/P (MAP) Pulse Ox O2 Delivery O2 Flow Rate FiO2 08/13/20 16:00 97.7 100 24 103/55 (71) 93 08/13/20 16:00 100 08/13/20 13:00 95 T-Piece 8.0 35 08/13/20 12:00 93 08/13/20 12:00 97.9 92 22 100/52 (68) 96 08/13/20 09:00 Trach Collar 12.0 08/13/20 08:36 114 102/58 08/13/20 08:00 109 08/13/20 08:00 98.6 114 22 102/58 (73) 95 08/13/20 07:00 94 T-Piece 10.0 35 08/13/20 04:00 104 08/13/20 04:00 98.6 110 28 102/61 (75) 95 08/13/20 00:00 98.3 109 24 93/64 (74) 95 08/13/20 00:00 114 08/12/20 23:45 95 T-Piece 10.0 35 08/12/20 22:00 97 101/61 08/12/20 21:00 Trach Collar 12.0 08/12/20 20:00 101 08/12/20 20:00 98.1 109 24 101/61 (74) 91 Intake and Output 08/12/20 08/13/20 19:00 07:00 Intake Total 1120 ml 660 ml Output Total 950 ml 600 ml Balance 170 ml 60 ml Intake Free Water 400 ml Tube Feeding 720 ml 660 ml Output Urine Total 950 ml 600 ml Objective WDWN NAD awake chronically ill moderate breath sounds bilaterally and now symmetric [id number] NABS nontender GT no CCE nonfocal weak wounds noted Laboratory Tests 08/13/20 06:30: White Blood Count 8.9, Red Blood Count 2.86L, Hemoglobin 7.9L, Hematocrit 25.5L, Mean Corpuscular Volume 89, Mean Corpuscular Hemoglobin 27.6, Mean Corpuscular Hemoglobin Concent 31.0L, Red Cell Distribution Width 16.0H, Platelet Count 462H , Mean Platelet Volume 5.9L, Neutrophils (%) (Auto) , Lymphocytes (%) (Auto) , Monocytes (%) (Auto) , Eosinophils (%) (Auto) , Basophils (%) (Auto) , Differential Total Cells Counted 100, Neutrophils % (Manual) 84H, Lymphocytes % (Manual) 13L, Monocytes % (Manual) 1, Eosinophils % (Manual) 2, Basophils % (Manual) 0, Band Neutrophils 0, Platelet Estimate Adequate, Platelet Morphology Normal, Hypochromasia 1+, Anisocytosis 1+, Prothrombin Time 11.6H, Prothromb Time International Ratio 1.1, Activated Partial Thromboplast Time 25, Sodium Level 146H, Potassium Level 4.8, Chloride Level 110H, Carbon Dioxide Level 34H, Anion Gap 2L, Blood Urea Nitrogen 44H, Creatinine 1.0, Estimat Glomerular Filtration Rate > 60, Glucose Level 100, Calcium Level 8.4L, Pro-B-Type Natriuretic Peptide 3093H Current Medications Medications (Trade) Dose Ordered Sig/Clive Route PRN Reason Start Time Stop Time Status Last Admin Dose Admin Acetaminophen (Tylenol) 650 mg Q4H PRN GT Temp >100.5 07/18/20 09:30 08/17/20 09:29 08/12/20 16:22 Acetaminophen (Tylenol) 650 mg Q4H PRN RECTAL Temp >100.5 08/12/20 10:00 09/11/20 09:59 Amiodarone HCl (Cordarone) 400 mg DAILY@1800 GT 08/10/20 18:00 10/28/20 17:59 08/13/20 17:36 Ascorbic Acid (Vitamin C) 250 mg TWICE A DAY GT 07/16/20 18:00 08/15/20 17:59 08/13/20 17:36 Atorvastatin Calcium (Lipitor) 10 mg BEDTIME ORAL 08/05/20 21:00 10/22/20 20:59 08/12/20 21:23 Chlorhexidine Gluconate (Jennifer-Hex 2%) 1 applic DAILY@2000 TOPIC 07/17/20 20:00 10/15/20 19:59 08/12/20 21:23 Famotidine (Pepcid) 20 mg Q12HR GT 07/16/20 21:00 10/14/20 20:59 08/13/20 08:35 Finasteride (Proscar) 5 mg DAILY ORAL 07/15/20 09:00 10/13/20 08:59 08/13/20 08:36 Hydralazine HCl (Apresoline) 25 mg Q6H PRN GT SBP above 150 07/24/20 23:30 10/22/20 23:29 07/26/20 05:22 Levetiracetam (Keppra) 1,000 mg Q12HR ORAL 08/12/20 21:00 09/11/20 20:59 08/13/20 08:36 Metoprolol Tartrate (Lopressor) 100 mg Q12HR ORAL 08/13/20 09:00 11/11/20 08:59 08/13/20 08:36 Multivitamins (Multivitamins) 1 tab DAILY GT 07/17/20 09:00 08/16/20 08:59 08/13/20 08:36 Sodium Hypochlorite (Dakin's Half Strength) 1 applic DAILY TOPIC 07/16/20 13:00 08/15/20 12:59 08/13/20 08:37 Zinc Sulfate (Zinc Sulfate) 220 mg DAILY GT 07/27/20 09:00 10/25/20 08:59 08/13/20 08:36 Assessment/Plan Assessment/Plan Impression: Healthcare-associated pneumonia Acute respiratory failure with hypoxia Tracheostomy status Pleural effusion, left-recurrent s/p tap Decubitus ulcers Urinary tract infection Anemia S/p previous Craniotomy, RCA occlusion, MAMMOGRAPHY TECH shunt Seizure history GERD, dysphagia s/p GJ tube h/o Hypertension h/o Atrial fibrillation Previous DVT and Pulmonary Embolism, hypernatremia Plan repeat tap completed events reviewed monitor HH for change J tube feeds monitor oxygen needs nebs as needed Wound care Cardiology follow up [employer] Medications dc planning -if able; not safe at home but adamant orders reviewed impression, plan, and exam edited and reviewed in detail care discussed with Nikita Arreola MD Aug 13, 2020 17:47
--- NOTE | 2020-08-13 18:18 | NUR ---
NURSE NOTES:WOUND CARE FOLLOW-UP NOTES:Pt seen for wound care LLE. Sacral wound is granular. Edges are adherent to base of wound. Small amt non-odorous serous exudate. Full thickness Pressure Injury L trochanteric is granular , Undermined borders with a black tunneled area noted within base of wound at approx 4-5 o'clock. Small amt seropurulent exudate noted. Mild odor noted. Full thickness ischial wound resolving. Base of wound is granular. edges are adherent to base of wound. Periwound is denuded and erythematous. No changes in skin temp noted . NO exudate noted. Wounds bilat lower extremities are grossly malodorous. Full thickness wound Lateral L tibia with moist,oink . Edges are adhrent to base of wound . Moderate amt sanguineous exudate noted during drsg change. Wound cleansed with Dakins', then rinsed with Saline. Promogran Matrix drsg applied and moistened with Saline. Cavilon Skin BArrier applied along borders of wound,covered with ABD PAd and wrapped with Kerlix.Wounds both feet washed were first washed with soap and water, Then Cleansed with Dakin's Kristel , Dakin's moistened Gauze applied to each wound. Preventive steps taken to protect borders of each wound by applying a Moisture Barrier Paste along borders of each individual wound.Small amt Haemopurulent Exudate noted from R Heel wound. Tx continued as ordered. All wound prevention protocols continued as care-planned.
--- NOTE | 2020-08-13 19:13 | NUR ---
NURSE HAND-OFF REPORT: Important Events on Shift:Thoracentesis Patient Status: Stable Diet: Tube feeding Pending Orders: N/A Pending Results/Labs:N/A Pending MD notification:N/A Latest Vital Signs: Temperature 97.7 , Pulse 100 , B/P 103 /55 , Respiratory Rate 24 , O2 SAT 93 , Trach Collar, O2 Flow Rate 8.0 . Vital Sign Comment: stable EKG Rhythm: Sinus Rhythm Rhythm change?: N MD Notified?: N -Dr. Aubree VALDEZ Response: Message left await call Latest Ramirez Fall Score: 50 Fall Risk: High Risk Safety Measures: Call light Within Reach, Bed Alarm Zone 1, Side Rails Side Rails x2, Bed position Low and Locked. Fall Precautions: Patient Fall Education Report given to Gho/RN.
--- NOTE | 2020-08-13 19:20 | NUR ---
NURSE NOTES: Receive a report from SELIN Alston. Round is made. Noted spontaneous eye opening without acute distress. On trach with O2 12L and spo2 continuous monitoring. G-tube feeding as ordered. Kept head-up elevation. Concentrated urine is patent via valles catheter. On TERRIE mattress with q2hr position change. Intact dressing on pressure injuries. PICC on KIZZY intact and patent. Call light within reach. Will continue to monitor.
[2020-08-13 20:00] VITALS: BP 129/50
[2020-08-13] MEDS: Dyna-Hex 2% Top Sol 2oz TOPIC SCH (20:39)
[2020-08-13] MEDS: Atorvastatin 20mg tab ORAL SCH (20:40)
--- NOTE | 2020-08-13 22:12 | General Progress Note ---
Subjective Allergies: Coded Allergies: No Known Allergies (Unverified , 11/02/19) Subjective Above noted non communicative (+) BM tolerating TF Objective Last 24 Hour Vital Signs Date Time Temp Pulse Resp B/P (MAP) Pulse Ox O2 Delivery O2 Flow Rate FiO2 08/13/20 20:39 106 129/50 08/13/20 20:00 106 08/13/20 20:00 98.1 106 24 129/50 (76) 94 08/13/20 19:47 93 T-Piece 8.0 35 08/13/20 16:00 97.7 100 24 103/55 (71) 93 08/13/20 16:00 100 08/13/20 13:00 95 T-Piece 8.0 35 08/13/20 12:00 93 08/13/20 12:00 97.9 92 22 100/52 (68) 96 08/13/20 09:00 Trach Collar 12.0 08/13/20 08:36 114 102/58 08/13/20 08:00 109 08/13/20 08:00 98.6 114 22 102/58 (73) 95 08/13/20 07:00 94 T-Piece 10.0 35 08/13/20 04:00 104 08/13/20 04:00 98.6 110 28 102/61 (75) 95 08/13/20 00:00 98.3 109 24 93/64 (74) 95 08/13/20 00:00 114 08/12/20 23:45 95 T-Piece 10.0 35 Intake and Output 08/12/20 08/13/20 19:00 07:00 Intake Total 1120 ml 720 ml Output Total 950 ml 600 ml Balance 170 ml 120 ml Intake Free Water 400 ml Tube Feeding 720 ml 720 ml Output Urine Total 950 ml 600 ml Laboratory Tests 08/13/20 06:30: White Blood Count 8.9, Red Blood Count 2.86L, Hemoglobin 7.9L, Hematocrit 25.5L, Mean Corpuscular Volume 89, Mean Corpuscular Hemoglobin 27.6, Mean Corpuscular Hemoglobin Concent 31.0L, Red Cell Distribution Width 16.0H, Platelet Count 462H , Mean Platelet Volume 5.9L, Neutrophils (%) (Auto) , Lymphocytes (%) (Auto) , Monocytes (%) (Auto) , Eosinophils (%) (Auto) , Basophils (%) (Auto) , D ifferential Total Cells Counted 100, Neutrophils % (Manual) 84H, Lymphocytes % (Manual) 13L, Monocytes % (Manual) 1, Eosinophils % (Manual) 2, Basophils % (Manual) 0, Band Neutrophils 0, Platelet Estimate Adequate, Platelet Morphology Normal, Hypochromasia 1+, Anisocytosis 1+, Prothrombin Time 11.6H, Prothromb Time International Ratio 1.1, Activated Partial Thromboplast Time 25, Sodium Level 146H, Potassium Level 4.8, Chloride Level 110H, Carbon Dioxide Level 34H, Anion Gap 2L, Blood Urea Nitrogen 44H, Creatinine 1.0, Estimat Glomerular Filtration Rate > 60, Glucose Level 100, Calcium Level 8.4L, Pro-B-Type Natriuretic Peptide 3093H Height (Feet): 5 Height (Inches): 4.00 Weight (Pounds): 171 Objective Eldely WM NCAT (+) trach , T tube Coarse BS RRR abd soft (+) GT ext no edema Assessment/Plan Status: stable, progressing Assessment/Plan: Assessment - UGIB - resolved - Anemia, s/p transfusion - h/o PUD - resp failure, s/p trach - dysphagia, s/p PEG - atrial fibrillation - h/o DVT - hypernatremia - loose BM - improved Recommendations - anticoagulation - H2B BID indefinitely - vital AF - free water - follow H&H - monitor BM Akiko Rai MD Aug 13, 2020 22:12
--- NOTE | 2020-08-13 23:41 | Cardiology Progress Note ---
Subjective DATE OF SERVICE: Aug 13, 2020 s/p 1700cc thorocentesis today. No new bleeding; back on anticoagulation now following GI clearance. BP parameters stabilized. Monitor: AFib/flutter persisting with increased ventricular rates now. Objective Last 24 Hour Vital Signs Date Time Temp Pulse Resp B/P (MAP) Pulse Ox O2 Delivery O2 Flow Rate FiO2 08/13/20 22:35 Trach Collar 12.0 08/13/20 20:39 106 129/50 08/13/20 20:00 106 08/13/20 20:00 98.1 106 24 129/50 (76) 94 08/13/20 19:47 93 T-Piece 8.0 35 08/13/20 16:00 97.7 100 24 103/55 (71) 93 08/13/20 16:00 100 08/13/20 13:00 95 T-Piece 8.0 35 08/13/20 12:00 93 08/13/20 12:00 97.9 92 22 100/52 (68) 96 08/13/20 09:00 Trach Collar 12.0 08/13/20 08:36 114 102/58 08/13/20 08:00 109 08/13/20 08:00 98.6 114 22 102/58 (73) 95 08/13/20 07:00 94 T-Piece 10.0 35 08/13/20 04:00 104 08/13/20 04:00 98.6 110 28 102/61 (75) 95 08/13/20 00:00 98.3 109 24 93/64 (74) 95 08/13/20 00:00 114 08/12/20 23:45 95 T-Piece 10.0 35 ROS: unchanged from 07/14/20 HEENT: Thick Trach secretions RHYTHM: NSR, ST, PACs, Afib LUNGS: bilateral rhonchi CARDIAC: normal S1 and S2, rapid rate, arrhythmia ABDOMEN: normal bowel sounds, soft, G-Tube intact EXTREMITIES: normal range of motion, non-tender, trace edema, other - withdrawn Laboratory Tests Test 08/13/20 06:30 White Blood Count 8.9 K/UL (4.8-10.8) Red Blood Count 2.86 M/UL (4.70-6.10) L Hemoglobin 7.9 G/DL (14.2-18.0) L Hematocrit 25.5 % (42.0-52.0) L Mean Corpuscular Volume 89 FL (80-99) Mean Corpuscular Hemoglobin 27.6 PG (27.0-31.0) Mean Corpuscular Hemoglobin Concent 31.0 G/DL (32.0-36.0) L Red Cell Distribution Width 16.0 % (11.6-14.8) H Platelet Count 462 K/UL (150-450) H Mean Platelet Volume 5.9 FL (6.5-10.1) L Neutrophils (%) (Auto) % (45.0-75.0) Lymphocytes (%) (Auto) % (20.0-45.0) Monocytes (%) (Auto) % (1.0-10.0) Eosinophils (%) (Auto) % (0.0-3.0) Basophils (%) (Auto) % (0.0-2.0) Differential Total Cells Counted 100 Neutrophils % (Manual) 84 % (45-75) H Lymphocytes % (Manual) 13 % (20-45) L Monocytes % (Manual) 1 % (1-10) Eosinophils % (Manual) 2 % (0-3) Basophils % (Manual) 0 % (0-2) Band Neutrophils 0 % (0-8) Platelet Estimate Adequate Platelet Morphology Normal Hypochromasia 1+ Anisocytosis 1+ Prothrombin Time 11.6 SEC (9.30-11.50) H Prothromb Time International Ratio 1.1 (0.9-1.1) Activated Partial Thromboplast Time 25 SEC (23-33) Sodium Level 146 MMOL/L (136-145) H Potassium Level 4.8 MMOL/L (3.5-5.1) Chloride Level 110 MMOL/L (98-107) H Carbon Dioxide Level 34 MMOL/L (21-32) H Anion Gap 2 mmol/L (5-15) L Blood Urea Nitrogen 44 mg/dL (7-18) H Creatinine 1.0 MG/DL (0.55-1.30) Estimat Glomerular Filtration Rate > 60 mL/min (>60) Glucose Level 100 MG/DL (74-106) Calcium Level 8.4 MG/DL (8.5-10.1) L Pro-B-Type Natriuretic Peptide 3093 pg/mL (0-125) H Assessment/Plan Assessment/Plan Healthcare associated PNA Paroxysmal atrial fibrillation/flutter Paroxysmal atrial ectopy Hx ICB with craniotomy 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 Dyslipidemia on high dose statin - now dose adjusted Dehydration/hypernatremia Severe protein-calorie malnutrition Multiple wounds Anemia - s/p tx Pleural effusion - s/p left thorocentesis Titrate beta blockade dose further. Abx Resp support Cardiac monitoring Statin dose adjusted Amiodarone at increased dose again to maintain sinus rhythm. Free water replacement as needed; off IVF for now. Continue anticoagulation with caution due to bleeding risk Dylan Mak MD Aug 13, 2020 23:41
[2020-08-14] VITALS: BP 112/56
--- NOTE | 2020-08-14 02:00 | NUR ---
NURSE NOTES: Had loose BM. Done sore dressing change as ordered. Kept dry and intact. Will continue to monitor.
[2020-08-14 04:00] VITALS: BP 98/48
[2020-08-14] MEDS: Acetaminophen 650mg/20.3ml GT PRN (04:14)
--- NOTE | 2020-08-14 05:30 | NUR ---
NURSE NOTES: BT dropped as 98.6 after Tylenol 650mg via g-tube.
[2020-08-14 06:52] LABS: ALANINE AMINOTRANSFERASE 44 U/L (12-78); ALBUMIN 0.9 G/DL (3.4-5.0); ALBUMIN/GLOBULIN RATIO 0.2 (1.0-2.7); ALKALINE PHOSPHATASE 113 U/L (46-116); ANION GAP 5 mmol/L (5-15); ASPARTATE AMINO TRANSFERASE 45 U/L (15-37); BILIRUBIN,TOTAL 0.2 MG/DL (0.2-1.0); BLOOD UREA NITROGEN 47 mg/dL (7-18); CALCIUM 8.8 MG/DL (8.5-10.1); CARBON DIOXIDE 30 MMOL/L (21-32); CHLORIDE 110 MMOL/L (98-107); POTASSIUM 4.2 MMOL/L (3.5-5.1); SODIUM 145 MMOL/L (136-145)
--- NOTE | 2020-08-14 07:00 | NUR ---
NURSE NOTES: Update to Dr. Jaramillo for atrial trigeminy on rhythm strip overnight and returned to sinus rhythm.
--- NOTE | 2020-08-14 07:20 | NUR ---
NURSE HAND-OFF REPORT: Important Events on Shift: One time given Tylenol for elevated temperature], Ooe time loose BM. Patient Status: [stable] Diet: [g-tube feeding as ordered] Pending Orders: [] Pending Results/Labs:[] Pending MD notification:[] Latest Vital Signs: Temperature 98.6 , Pulse 104 , B/P 98 /48 , Respiratory Rate 20 , O2 SAT 94 , Trach Collar, O2 Flow Rate 6.0 . Vital Sign Comment: [] EKG Rhythm: Sinus Tachycardia--Sinus rhythm Rhythm change?: N Notified?: N -Dr. Aubree VALDEZ Response: Message left await call Latest Ramirez Fall Score: 70 Fall Risk: High Risk Safety Measures: Call light Within Reach, Bed Alarm Zone 1, Side Rails Side Rails x3, Bed position Low and Locked. Fall Precautions: Patient Fall Education Report given to SELIN Eduardo. Round is made.
--- NOTE | 2020-08-14 07:37 | NUR ---
NURSE NOTES: Report received from Zachary RN. Pt received awake, alert and oriented x 0, no SOB, bed in lowest position with break engaged and alarm on, no s//sx of discomfort at this time, GT intact and in place running Vital AF at 60 tolerating well, valles catheter intact, cardiac specialist in place, trach collar in place, wound dressings in place and intact, will continue to monitor for change and proceed with plan of care, call light within reach
[2020-08-14 08:00] VITALS: BP 101/68
--- NOTE | 2020-08-14 08:44 | Pulmonology Progress Note ---
Subjective ROS Limited/Unobtainable: Yes Allergies: Coded Allergies: No Known Allergies (Unverified , 11/02/19) All Systems: reviewed and negative except above Subjective CARE NOTED nonverbal on oxygen no distress at present; meds renewed trach collar imaging noted and underwent repeat tap Objective Last 24 Hour Vital Signs Date Time Temp Pulse Resp B/P (MAP) Pulse Ox O2 Delivery O2 Flow Rate FiO2 08/14/20 08:00 97.7 97 24 101/68 (79) 98 08/14/20 06:00 98.6 08/14/20 04:00 100.4 104 20 98/48 (65) 94 08/14/20 04:00 102 08/14/20 01:15 96 T-Piece 6.0 40 08/14/20 00:00 100.0 96 24 112/56 (74) 92 08/14/20 00:00 96 08/13/20 22:35 Trach Collar 12.0 08/13/20 20:39 106 129/50 08/13/20 20:00 106 08/13/20 20:00 98.1 106 24 129/50 (76) 94 08/13/20 19:47 93 T-Piece 8.0 35 08/13/20 16:00 97.7 100 24 103/55 (71) 93 08/13/20 16:00 100 08/13/20 13:00 95 T-Piece 8.0 35 08/13/20 12:00 93 08/13/20 12:00 97.9 92 22 100/52 (68) 96 08/13/20 09:00 Trach Collar 12.0 Intake and Output 08/13/20 08/14/20 19:00 07:00 Intake Total 1210 ml 460 ml Output Total 500 ml 800 ml Balance 710 ml -340 ml Intake Free Water 300 ml 400 ml Tube Feeding 660 ml 60 ml Blood Product 250 ml Output Urine Total 500 ml 800 ml # Bowel Movements 1 1 Objective WDWN NAD awake chronically ill moderate breath sounds bilaterally and now symmetric [id number] NABS nontender GT no CCE nonfocal weak wounds noted Laboratory Tests 08/14/20 05:50: Sodium Level 145, Potassium Level 4.2, Chloride Level 110H, Carbon Dioxide Level 30, Anion Gap 5, Blood Urea Nitrogen 47H, Creatinine 1.0, Estimat Glomerular Filtration Rate > 60, Glucose Level 146H, Calcium Level 8.8, Total Bilirubin 0.2, Aspartate Amino Transf (AST/SGOT) 45H, Alanine Aminotransferase (ALT/SGPT) 44, Alkaline Phosphatase 113, Total Protein 6.7, Albumin 0.9L, Globulin 5.8, Albumin/Globulin Ratio 0.2L Current Medications Medications (Trade) Dose Ordered Sig/Clive Route PRN Reason Start Time Stop Time Status Last Admin Dose Admin Acetaminophen (Tylenol) 650 mg Q4H PRN GT Temp >100.5 07/18/20 09:30 08/17/20 09:29 08/14/20 04:14 Acetaminophen (Tylenol) 650 mg Q4H PRN RECTAL Temp >100.5 08/12/20 10:00 09/11/20 09:59 Amiodarone HCl (Cordarone) 400 mg DAILY@1800 GT 08/10/20 18:00 10/28/20 17:59 08/13/20 17:36 Ascorbic Acid (Vitamin C) 250 mg TWICE A DAY GT 07/16/20 18:00 08/15/20 17:59 08/13/20 17:36 Atorvastatin Calcium (Lipitor) 10 mg BEDTIME ORAL 08/05/20 21:00 10/22/20 20:59 08/13/20 20:40 Chlorhexidine Gluconate (Jennifer-Hex 2%) 1 applic DAILY@2000 TOPIC 07/17/20 20:00 10/15/20 19:59 08/13/20 20:39 Famotidine (Pepcid) 20 mg Q12HR GT 07/16/20 21:00 10/14/20 20:59 08/13/20 20:40 Finasteride (Proscar) 5 mg DAILY ORAL 07/15/20 09:00 10/13/20 08:59 08/13/20 08:36 Hydralazine HCl (Apresoline) 25 mg Q6H PRN GT SBP above 150 07/24/20 23:30 10/22/20 23:29 07/26/20 05:22 Levetiracetam (Keppra) 1,000 mg Q12HR ORAL 08/12/20 21:00 09/11/20 20:59 08/13/20 20:40 Metoprolol Tartrate (Lopressor) 100 mg Q12HR ORAL 08/13/20 09:00 11/11/20 08:59 08/13/20 20:39 Multivitamins (Multivitamins) 1 tab DAILY GT 07/17/20 09:00 08/16/20 08:59 08/13/20 08:36 Sodium Hypochlorite (Dakin's Half Strength) 1 applic DAILY TOPIC 07/16/20 13:00 08/15/20 12:59 08/13/20 08:37 Zinc Sulfate (Zinc Sulfate) 220 mg DAILY GT 07/27/20 09:00 10/25/20 08:59 08/13/20 08:36 Assessment/Plan Assessment/Plan Impression: Healthcare-associated pneumonia Acute respiratory failure with hypoxia Tracheostomy status Pleural effusion, left-recurrent s/p tap Decubitus ulcers Urinary tract infection Anemia S/p previous Craniotomy, RCA occlusion, 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
[2020-08-14] MEDS: Dakin's 0.25% (Half Strength) 16oz TOPIC SCH (08:47)
[2020-08-14] MEDS: Metoprolol Tartrate 100mg tab ORAL SCH ×2 (08:47→20:38)
[2020-08-14] MEDS: Zinc Sulfate 220mg GT SCH (08:47)
[2020-08-14] MEDS: Ascorbic Acid 500mg tab GT SCH ×2 (08:47→17:04)
[2020-08-14 09:02] LABS: BASOPHILS % (AUTO) 0.7 % (0.0-2.0); HEMATOCRIT 29.2 % (42.0-52.0); LYMPHOCYTES % (AUTO) 16.9 % (20.0-45.0); MEAN CORPUSCULAR VOLUME 89 FL (80-99); MONOCYTES % (AUTO) 8.5 % (1.0-10.0); NEUTROPHILS % (AUTO) 71.1 % (45.0-75.0); PLATELET COUNT 453 K/UL (150-450); RED CELL DISTRIBUTION WIDTH 15.7 % (11.6-14.8); WHITE BLOOD COUNT 8.2 K/UL (4.8-10.8)
--- NOTE | 2020-08-14 09:58 | General Progress Note ---
Subjective Allergies: Coded Allergies: No Known Allergies (Unverified , 11/02/19) Subjective Above noted non communicative D/W RN (+) BM - soft tolerating TF Objective Last 24 Hour Vital Signs Date Time Temp Pulse Resp B/P (MAP) Pulse Ox O2 Delivery O2 Flow Rate FiO2 08/14/20 09:00 Trach Collar 12.0 08/14/20 08:47 97 101/68 08/14/20 08:00 96 08/14/20 08:00 97.7 97 24 101/68 (79) 98 08/14/20 07:30 97 T-Piece 6.0 40 08/14/20 06:00 98.6 08/14/20 04:00 100.4 104 20 98/48 (65) 94 08/14/20 04:00 102 08/14/20 01:15 96 T-Piece 6.0 40 08/14/20 00:00 100.0 96 24 112/56 (74) 92 08/14/20 00:00 96 08/13/20 22:35 Trach Collar 12.0 08/13/20 20:39 106 129/50 08/13/20 20:00 106 08/13/20 20:00 98.1 106 24 129/50 (76) 94 08/13/20 19:47 93 T-Piece 8.0 35 08/13/20 16:00 97.7 100 24 103/55 (71) 93 08/13/20 16:00 100 08/13/20 13:00 95 T-Piece 8.0 35 08/13/20 12:00 93 08/13/20 12:00 97.9 92 22 100/52 (68) 96 Intake and Output 08/13/20 08/14/20 19:00 07:00 Intake Total 1210 ml 460 ml Output Total 500 ml 800 ml Balance 710 ml -340 ml Intake Free Water 300 ml 400 ml Tube Feeding 660 ml 60 ml Blood Product 250 ml Output Urine Total 500 ml 800 ml # Bowel Movements 1 1 Laboratory Tests 08/14/20 05:50: Sodium Level 145, Potassium Level 4.2, Chloride Level 110H, Carbon Dioxide Level 30, Anion Gap 5, Blood Urea Nitrogen 47H, Creatinine 1.0, Estimat Glomerular Filtration Rate > 60, Glucose Level 146H, Calcium Level 8.8, Total Bilirubin 0.2, Aspartate Amino Transf (AST/SGOT) 45H, Alanine Aminotransferase (ALT/SGPT) 44, Alkaline Phosphatase 113, Total Protein 6.7, Albumin 0.9L, Globulin 5.8, Albumin/Globulin Ratio 0.2L 08/14/20 08:30: White Blood Count 8.2, Red Blood Count 3.30L, Hemoglobin 9.0L, Hematocrit 29.2L, Mean Corpuscular Volume 89, Mean Corpuscular Hemoglobin 27.3, Mean Corpuscular Hemoglobin Concent 30.8L, Red Cell Distribution Width 15.7H, Platelet Count 453H , Mean Platelet Volume 5.9L, Neutrophils (%) (Auto) 71.1, Lymphocytes (%) (Auto) 16.9L, Monocytes (%) (Auto) 8.5, Eosinophils (%) (Auto) 3.0, Basophils (%) (Auto) 0.7 Height (Feet): 5 Height (Inches): 4.00 Weight (Pounds): 171 Objective Eldely WM NCAT (+) trach , T tube Coarse BS RRR abd soft (+) GT ext no edema Assessment/Plan Status: stable, progressing Assessment/Plan: Assessment - UGIB - resolved - Anemia, s/p transfusion - h/o PUD - resp failure, s/p trach - dysphagia, s/p PEG - atrial fibrillation - h/o DVT - hypernatremia - loose BM - improved Recommendations - anticoagulation - H2B BID indefinitely - vital AF - free water - follow H&H - monitor BM Akiko Rai MD Aug 14, 2020 09:58
--- NOTE | 2020-08-14 11:00 | Diagnostic Imaging Report ---
Procedure: XRAY Chest 1v Reason for study: Reason For Exam: SOB Comparison films: 08/13/2020. FINDINGS: Right PICC line and tracheostomy remain in place. Bilateral hazy infiltrates and left retrocardiac opacity are unchanged. Cardiac silhouette partially obscured. There may be underlying left effusion. The bony thorax appear unremarkable. IMPRESSION: NO SIGNIFICANT CHANGE COMPARED TO PREVIOUS EXAM.
--- NOTE | 2020-08-14 11:31 | NUR ---
RADIOLOGY DEPT., CHEST X-RAY DONE.-P.DYE
--- NOTE | 2020-08-14 11:41 | NUR ---
ETHNOGRAPHER NOTES SPOKE WITH PT'S DAUGHTER REBEKA MADE AWARE OF POSSIBLE DC TOMORROW. VERIFIED DME COMPANY FOR OXYGEN AND HH. PT CURRENTLY HAS OXYGEN AT HOME. PT CURRENTLY ON SERVICES WITH [facility] FOR HH.REFERRAL FAXED TO [facility] FOR CONTINUED CARE. [facility] [phone]
[2020-08-14 12:00] VITALS: BP 103/89
--- NOTE | 2020-08-14 14:32 | Surgery Progress Note ---
Surgery Progress Note Subjective Additional Comments non verbal dressings saturated and changed d/c planning with o2 labs noted path from vianca garcia Objective Last 24 Hour Vital Signs Date Time Temp Pulse Resp B/P (MAP) Pulse Ox O2 Delivery O2 Flow Rate FiO2 08/14/20 12:00 89 08/14/20 12:00 97.7 86 23 103/89 (94) 96 08/14/20 09:00 Trach Collar 12.0 08/14/20 08:47 97 101/68 08/14/20 08:00 96 08/14/20 08:00 97.7 97 24 101/68 (79) 98 08/14/20 07:30 97 T-Piece 6.0 40 08/14/20 06:00 98.6 08/14/20 04:00 100.4 104 20 98/48 (65) 94 08/14/20 04:00 102 08/14/20 01:15 96 T-Piece 6.0 40 08/14/20 00:00 100.0 96 24 112/56 (74) 92 08/14/20 00:00 96 08/13/20 22:35 Trach Collar 12.0 08/13/20 20:39 106 129/50 08/13/20 20:00 106 08/13/20 20:00 98.1 106 24 129/50 (76) 94 08/13/20 19:47 93 T-Piece 8.0 35 08/13/20 16:00 97.7 100 24 103/55 (71) 93 08/13/20 16:00 100 I&O Intake and Output 08/13/20 08/14/20 19:00 07:00 Intake Total 1210 ml 460 ml Output Total 500 ml 800 ml Balance 710 ml -340 ml Intake Free Water 300 ml 400 ml Tube Feeding 660 ml 60 ml Blood Product 250 ml Output Urine Total 500 ml 800 ml # Bowel Movements 1 1 Dressing: saturated Cardiovascular: RSR Respiratory: decreased breath sounds Abdomen: soft, flat, non-tender, present bowel sounds Extremities: no edema, no tenderness, other Laboratory Tests Test 08/14/20 05:50 08/14/20 08:30 Sodium Level 145 MMOL/L (136-145) Potassium Level 4.2 MMOL/L (3.5-5.1) Chloride Level 110 MMOL/L (98-107) H Carbon Dioxide Level 30 MMOL/L (21-32) Anion Gap 5 mmol/L (5-15) Blood Urea Nitrogen 47 mg/dL (7-18) H Creatinine 1.0 MG/DL (0.55-1.30) Estimat Glomerular Filtration Rate > 60 mL/min (>60) Glucose Level 146 MG/DL (74-106) H Calcium Level 8.8 MG/DL (8.5-10.1) Total Bilirubin 0.2 MG/DL (0.2-1.0) Aspartate Amino Transf (AST/SGOT) 45 U/L (15-37) H Alanine Aminotransferase (ALT/SGPT) 44 U/L (12-78) Alkaline Phosphatase 113 U/L (46-116) Total Protein 6.7 G/DL (6.4-8.2) Albumin 0.9 G/DL (3.4-5.0) L Globulin 5.8 g/dL Albumin/Globulin Ratio 0.2 (1.0-2.7) L White Blood Count 8.2 K/UL (4.8-10.8) Red Blood Count 3.30 M/UL (4.70-6.10) L Hemoglobin 9.0 G/DL (14.2-18.0) L Hematocrit 29.2 % (42.0-52.0) L Mean Corpuscular Volume 89 FL (80-99) Mean Corpuscular Hemoglobin 27.3 PG (27.0-31.0) Mean Corpuscular Hemoglobin Concent 30.8 G/DL (32.0-36.0) L Red Cell Distribution Width 15.7 % (11.6-14.8) H Platelet Count 453 K/UL (150-450) H Mean Platelet Volume 5.9 FL (6.5-10.1) L Neutrophils (%) (Auto) 71.1 % (45.0-75.0) Lymphocytes (%) (Auto) 16.9 % (20.0-45.0) L Monocytes (%) (Auto) 8.5 % (1.0-10.0) Eosinophils (%) (Auto) 3.0 % (0.0-3.0) Basophils (%) (Auto) 0.7 % (0.0-2.0) Plan Problems: (1) Decubitus skin ulcer Assessment & Plan: Pt presented on admission with PV shunt,Tracheostomy, Contractures and multiple Pressure Injuries.Skin assessed under tracheal collar. Skin is erythematous but without any open wounds. GT site is red and excoriated.Scattered senile purpuras bilat upper extremities. Full thickness Sacral Pressure Injury(L)11.8cm x (W)8cm. Base of wound is 75% mixed necrosis and slough,20% antonio. Bone is palpable at base. Edges are macerated. Mild odor noted. Small amt brown exudate noted. Periwound is i ndurated and maroon with additional erythema and scattered Partial thickness shearing. Full Thickness Pressure Injury L trochanteric with undermined borders.(L)5cm x (W)7cm x (D)2.6cm, undermining clockwise 11-2 by 4.2cm @11o'clock. Base of wound is 75%% mixed necrosis and slough,25% antonio. Wound has appearance of two wounds secondary necrotic bridge.In addition, periwound at clockwise 10-2o'clock the base is necrotic and fluctuant with marginal erythema. Small amt malodorous haemopurulent exudate noted. Full thickness Pressure Injury L Ischium(L)3.5cm x (W)2.0cm. Base of wound is 80% slough,20% antonio. Surrounding necrotic borders that are fluctuant.Small amt sanguineous exudate. Mild odor noted. Full thickness Pressure Injury lateral L Tibia to L lateral Malleolus(L)24.5cm x (W)3.5cm. Base of wound is antonio with scattered necrosis and slough, tendon exposure. Semi-detached borders that indurated and macerated with an area of soft necrosis at proximal borders of wound. Small amt haemopurulent exudate noted. No odor noted. Full thickness Pressure Injury L Heel(L)10.3cm x (W)7.5cm. Base of wound is 60% necrotic,10% slough,30% antonio. Bone is palpable. Borders are indurated with a portion of borders rolled giving heel a shaved appearance. Moderate amt haemopur ulent exudate. Mild odor noted.Periwound is purpuric and fluctuant. Full thickness Pressure Injury medial/lateral L foot(L)3.5cm x (W)3.5cm x (D)0.3cm. Base of wound is antonio. Borders and periwound are purpuric and fluctuant.Small amt sanguineous exudate noted. Unstageable Pressure Injury Distal/Lateral L foot(L)2.7cm x (W)4.3cm. Base of wound is 80% soft necrosis,20% antonio. Edges are adherent to base of wound. Periwound is purpuric and fluctuant. Full thickness Pressure Injury R heel Plantar(L)8.5cm x (W)9cm. Base of pressure with scattered necrosis and slough,otherwise base of wound is antonio. Edges are macerated with surrounding necrosis. Small amt seropurulent exudate noted.Mild odor noted. Stable dry eschar dorsal R foot1.5cm x (W)1cm. Edges are adherent to base of wound. No erythema,induration or fluctuance periwound. Stable dry eschar distal/lateral R foot (L)0.8cm x (W)0.8cm. NO erythema,induration or fluctuance periwound. R foot is edematous. Tx.Plan: Cleanse Sacral wound with Dakin's Kristel 0.25%. Apply Dakin's moistened kerlix to wound. Apply Triad periwound. Cover with Optifoam drsg. Change Daily and prn. Cleanse L trochanteric Wound with Dakin's Kristel 0.25%. Loosely pack with Dakin's moistened Kerlix, Apply Moisture Barrier Periwound. Cover with Optifoam drsg Daily and prn. Cleanse R Ischial wound with Dakin's Kristel 0.25%. Apply Dakin's moistened gauze to wound. Apply Moisture Barrier Paste periwound. Cover with Optifoam drsg Daily and prn. Cleanse wounds Lateral R lower extremity, R Heel and Lateral R foot with Dakin's Kristel 0.25%. Place Dakin's Moistened gauze to wounds. Apply Triad Paste along edges of wound. Cover wounds with ABD Pads. Wrap with Kerlix from Base of toes. Cleanse wound R heel with Dakin's Kristel 0.25%. Apply Dakin's moistened Gauze to wound. Apply Triad Periwound. Cover with ABD PAd and wrap with Kerlix. Swab dry Eschar dorsal and Lateral aspect of R foot .Cover with Abd Pads and Wrap with Kerlix Daily and prn. Wash GT site with Soap and water. Apply Triad Paste Daily and prn(Leave Open to Air) Reposition at least every 2hours or as tolerated. Place Pillow Between Knees. Off-Load Heels with Pillow. APM/TERRIE Mattress overlay. Loose non-viable tissue of R Heel removed by . Scattered slough at base of wound. Wound is malodorous. Cleansed with Dakin's 0.25% kristel. Dakin's moistened gauze applied . Triad Paste applied along borders. Covered with ABD pad and wrapped with Kerlix. Wound Lateral L Tibia re-evaluated . Base of wound is moist,granular, small area of bone and tendon exposure. noted. Small amt sanguineous exudate noted. No odor noted . Edges are adherent to base of wound. No evidence of additional skin breakdown periwound . New Tx orders received from for Promogran. Tx amended and applied as per Md's orders. Tx.Plan:Cleanse Lateral L Tibia with Saline. Apply Promogran to wound. Cover with ABD Pad. Wrap with Kerlix. Change every Pec-Efo-Vercaz. (2) Anemia Assessment & Plan: trend h/h prbc prn (3) UTI (urinary tract infection) (4) Pleural effusion, left Assessment & Plan: Ultrasound used to localize optimal puncture site. Sterile prepping and draping left chest. Local anesthesia with 1% lidocaine. Under real-time ultrasound guidance, puncture pleural space using thoracentesis needle. Stylet removed. Catheter placed to vacuum bottle suction. Total 1700 milliliters of fluid aspirated. Patient tolerated procedure well, without immediate complication. Findings: Followup sonography demonstrates small amount of residual pleural fluid. Impression: Successful ultrasound-guided thoracentesis, yielding 1700 milliliters of fluid Lungs: Hazy left lung attenuation could be due to consolidation, pulmonary edema; correlate with presentation. Retrocardiac atelectasis without or with consolidation. Pleural space: Small-moderate left pleural effusion with passive atelectasis. No pneumothorax. Heart: Unremarkable. No cardiomegaly. Mediastinum: Unremarkable. Bones/joints: No acute abnormality Tubes, lines and devices: Tracheostomy. Right upper extremity PICC tip in the mid SVC. IMPRESSION: 1. Tracheostomy. 2. Right upper extremity PICC tip in the mid SVC. 3. Small-moderate left pleural effusion with passive atelectasis. 4. Hazy left lung attenuation could be due to consolidation, pulmonary edema; correlate with presentation. 5. Retrocardiac atelectasis without or with consolidation. 6. Recommend CT chest with IV contrast to further characterize these findings. (5) Malfunction of gastrostomy tube Assessment & Plan: DAILY ESTIMATED NEEDS: Needs based on Wounds, pulmonary/ 74.5kg 25-30 kcals/kg 0707-8780 total kcals 1.5-2 g protein/kg 111-149 g total protein 25-30 mL/kg 5953-2657 total fluid mLs NUTRITION DIAGNOSIS: * Swallowing difficulty R/T dysphagia, h/o craniotomy, respiratory failure as evidenced by pt on T-collar, GJ tube dependent. * Increased kcal/prot/micronutrients needs R/T wound healing as evidenced by pt admitted w/ multiple advanced wounds including full thickness wound x 7 and unstageable wounds x 2, refer to eval. CURRENT TF:Jevity 1.2 @ 60ml/hr x 24 hrs-> now Glucerna 1.2 ENTERAL NUTRITION RECOMMENDATIONS: Glucerna 1.2 @ 65ml/hr x 24 hrs + Prosource 1pkt TID to provide 1560ml, 187 2kcal, 94g+ 33g prot, 1259ml free water * Increase goal rate to 65ml/hr x 24 hrs to better meet est needs * Add Prosource 1pkt TID to meet increased protein needs * HOB over 30 degrees/ water flush 150ml q 6hrs without IVF ADDITIONAL RECOMMENDATIONS: * Calibrated bedscale wt * Wound Care: Con't Vit C 500mg BID, ZnSO4 220mg QD x 10 days add Stevie BID * Monitor BGs, need for carb controlled TF -> now on Glucerna 1.2 * Monitor lytes, replete as needed (6) Acute respiratory failure with hypoxia (7) HCAP (healthcare-associated pneumonia) Deny Westfall Aug 14, 2020 14:32
--- NOTE | 2020-08-14 15:51 | General Progress Note ---
Subjective ROS Limited/Unobtainable: No Constitutional: Reports: malaise, weakness HEENT: Reports: no symptoms Cardiovascular: Reports: no symptoms Respiratory: Reports: shortness of breath, sputum Gastrointestinal/Abdominal: Reports: difficulty swallowing Genitourinary: Reports: no symptoms Neurologic/Psychiatric: Reports: pre-existing deficit Endocrine: Reports: no symptoms Hematologic/Lymphatic: Reports: anemia Allergies: Coded Allergies: No Known Allergies (Unverified , 11/02/19) All Systems: reviewed and negative except above Subjective No overnight events. Stable on trach collar. Awake but nonverbal and poorly responsive. Does not track or follow commands. Tolerating G-tube feeds. Labs reviewed. h/h stable. no reports of bleeding. cxr with tejal infiltrates- no change Objective Last 24 Hour Vital Signs Date Time Temp Pulse Resp B/P (MAP) Pulse Ox O2 Delivery O2 Flow Rate FiO2 08/14/20 12:00 89 08/14/20 12:00 97.7 86 23 103/89 (94) 96 08/14/20 09:00 Trach Collar 12.0 08/14/20 08:47 97 101/68 08/14/20 08:00 96 08/14/20 08:00 97.7 97 24 101/68 (79) 98 08/14/20 07:30 97 T-Piece 6.0 40 08/14/20 06:00 98.6 08/14/20 04:00 100.4 104 20 98/48 (65) 94 08/14/20 04:00 102 08/14/20 01:15 96 T-Piece 6.0 40 08/14/20 00:00 100.0 96 24 112/56 (74) 92 08/14/20 00:00 96 08/13/20 22:35 Trach Collar 12.0 08/13/20 20:39 106 129/50 08/13/20 20:00 106 08/13/20 20:00 98.1 106 24 129/50 (76) 94 08/13/20 19:47 93 T-Piece 8.0 35 08/13/20 16:00 97.7 100 24 103/55 (71) 93 08/13/20 16:00 100 Intake and Output 08/13/20 08/14/20 19:00 07:00 Intake Total 1210 ml 460 ml Output Total 500 ml 800 ml Balance 710 ml -340 ml Intake Free Water 300 ml 400 ml Tube Feeding 660 ml 60 ml Blood Product 250 ml Output Urine Total 500 ml 800 ml # Bowel Movements 1 1 Laboratory Tests 08/14/20 05:50: Sodium Level 145, Potassium Level 4.2, Chloride Level 110H, Carbon Dioxide Level 30, Anion Gap 5, Blood Urea Nitrogen 47H, Creatinine 1.0, Estimat Glomerular Filtration Rate > 60, Glucose Level 146H, Calcium Level 8.8, Total Bilirubin 0 .2, Aspartate Amino Transf (AST/SGOT) 45H, Alanine Aminotransferase (ALT/SGPT) 44, Alkaline Phosphatase 113, Total Protein 6.7, Albumin 0.9L, Globulin 5.8, Albumin/Globulin Ratio 0.2L 08/14/20 08:30: White Blood Count 8.2, Red Blood Count 3.30L, Hemoglobin 9.0L, Hematocrit 29.2L, Mean Corpuscular Volume 89, Mean Corpuscular Hemoglobin 27.3, Mean Corpuscular Hemoglobin Concent 30.8L, Red Cell Distribution Width 15.7H, Platelet Count 453H , Mean Platelet Volume 5.9L, Neutrophils (%) (Auto) 71.1, Lymphocytes (%) (Auto) 16.9L, Monocytes (%) (Auto) 8.5, Eosinophils (%) (Auto) 3.0, Basophils (%) (Auto) 0.7 Height (Feet): 5 Height (Inches): 4.00 Weight (Pounds): 171 Objective General Appearance: WD/WN, confused EENT: normal ENT inspection Neck: normal alignment Cardiovascular: normal rate, regular rhythm Respiratory/Chest: rhonchi - bilaterally Abdomen: normal bowel sounds, non tender, soft, no organomegaly Edema: no edema noted Leg (L), no edema noted Leg (R) Neurologic: disoriented, aphasia Skin: normal pigmentation Assessment/Plan Problem List: (1) Anemia ICD Codes: D64.9 - Anemia, unspecified SNOMED: 353046657, 031554464 Qualifiers: Qualified Codes: D50.0 - Iron deficiency anemia secondary to blood loss (chronic) (2) Pleural effusion, left ICD Codes: J90 - Pleural effusion, not elsewhere classified SNOMED: 69363314, 262250332 (3) Malfunction of gastrostomy tube ICD Codes: K94.23 - Gastrostomy malfunction SNOMED: 737028426 (4) Acute respiratory failure with hypoxia ICD Codes: J96.01 - Acute respiratory failure with hypoxia SNOMED: 50573726, 839121005 (5) HCAP (healthcare-associated pneumonia) ICD Codes: J18.9 - Pneumonia, unspecified organism SNOMED: 604011676, 763800674 Status: stable, progressing Assessment/Plan: Continue trach collar. Oxygen as needed Keep sats greater than 92% Pulmonary toilet suctioning G-tube feeds Monitor residuals Cautious resumption of anticoagulation-cleared by GI Continue H2 ezekiel Monitor lites IV fluids as needed Turn every 2 hours Poor long-term prognosis for meaningful recovery wants pt to go home refusing subacute Angel Jaramillo MD Aug 14, 2020 15:51
[2020-08-14 16:00] VITALS: BP 103/89
[2020-08-14] MEDS: Amiodarone 200mg tab GT SCH (17:04)
--- NOTE | 2020-08-14 19:20 | NUR ---
NURSE HAND-OFF REPORT: Important Events on Shift:[wound care, monitoring labs and VS] Patient Status: [stable] Diet: [Vital AF at 60] Pending Orders: [] Pending Results/Labs:[] Pending MD notification:[] Latest Vital Signs: Temperature 96.7 , Pulse 108 , B/P 103 /89 , Respiratory Rate 23 , O2 SAT 97 , Trach Collar, O2 Flow Rate 6.0 . Vital Sign Comment: [] EKG Rhythm: Sinus Tachycardia Rhythm change?: N Notified?: N -Dr. Aubree VALDEZ Response: Message left await call Latest Ramirez Fall Score: 70 Fall Risk: High Risk Safety Measures: Call light Within Reach, Bed Alarm Zone 1, Side Rails Side Rails x3, Bed position Low and Locked. Fall Precautions: Patient Fall Education Report given to [SELIN Mercer].
[2020-08-14 20:00] VITALS: BP 119/61
[2020-08-14] MEDS: Dyna-Hex 2% Top Sol 2oz TOPIC SCH (20:35)
[2020-08-14] MEDS: Atorvastatin 20mg tab ORAL SCH (20:35)
--- NOTE | 2020-08-14 21:56 | NUR ---
NURSE NOTES: Pt received from SELIN Eduardo. Pt is resting comfortably in bed and denies any pain. Pt has cardiac monitoring ST and asymptomatic. Pt has Trach 10LPM breathing unlabored and asymptomatic. Pt has GT Vital AF 1.2 60ml/hr no residual and flushing well. Pt has valles catheter 16 fr patent and draining well to gravity. Pt has KIZZY PICC Line SL patent with skin dry and intact. Bed is locked and in lowest position with call light within reach. Will continue to monitor.
[2020-08-15] VITALS: BP 105/60
[2020-08-15 04:00] VITALS: BP 101/61
--- NOTE | 2020-08-15 04:01 | Cardiology Progress Note ---
Subjective DATE OF SERVICE: Aug 14, 2020 s/p 1700cc thorocentesis yesterday. No new bleeding, since back on anticoagulation now following GI clearance. BP parameters stabilized. Monitor: AFib/flutter persisting with increased ventricular rates now. Objective Last 24 Hour Vital Signs Date Time Temp Pulse Resp B/P (MAP) Pulse Ox O2 Delivery O2 Flow Rate FiO2 08/15/20 01:08 97 T-Piece 10.0 35 08/14/20 21:00 Trach Collar 12.0 08/14/20 20:38 116 119/61 08/14/20 20:00 99.1 116 22 119/61 (80) 97 08/14/20 19:35 96 T-Piece 10.0 35 08/14/20 16:00 96.7 81 23 103/89 (94) 97 08/14/20 16:00 108 08/14/20 15:05 96 T-Piece 6.0 40 08/14/20 13:00 98 T-Piece 6.0 40 08/14/20 12:00 89 08/14/20 12:00 97.7 86 23 103/89 (94) 96 08/14/20 09:00 Trach Collar 12.0 08/14/20 08:47 97 101/68 08/14/20 08:00 96 08/14/20 08:00 97.7 97 24 101/68 (79) 98 08/14/20 07:30 97 T-Piece 6.0 40 08/14/20 06:00 98.6 ROS: unchanged from 07/14/20 HEENT: Thick Trach secretions RHYTHM: NSR, ST, PACs, Afib LUNGS: bilateral rhonchi CARDIAC: normal S1 and S2, rapid rate, arrhythmia ABDOMEN: normal bowel sounds, soft, G-Tube intact EXTREMITIES: normal range of motion, non-tender, trace edema, other - withdrawn Laboratory Tests Test 08/14/20 05:50 08/14/20 08:30 Sodium Level 145 MMOL/L (136-145) Potassium Level 4.2 MMOL/L (3.5-5.1) Chloride Level 110 MMOL/L (98-107) H Carbon Dioxide Level 30 MMOL/L (21-32) Anion Gap 5 mmol/L (5-15) Blood Urea Nitrogen 47 mg/dL (7-18) H Creatinine 1.0 MG/DL (0.55-1.30) Estimat Glomerular Filtration Rate > 60 mL/min (>60) Glucose Level 146 MG/DL (74-106) H Calcium Level 8.8 MG/DL (8.5-10.1) Total Bilirubin 0.2 MG/DL (0.2-1.0) Aspartate Amino Transf (AST/SGOT) 45 U/L (15-37) H Alanine Aminotransferase (ALT/SGPT) 44 U/L (12-78) Alkaline Phosphatase 113 U/L (46-116) Total Protein 6.7 G/DL (6.4-8.2) Albumin 0.9 G/DL (3.4-5.0) L Globulin 5.8 g/dL Albumin/Globulin Ratio 0.2 (1.0-2.7) L White Blood Count 8.2 K/UL (4.8-10.8) Red Blood Count 3.30 M/UL (4.70-6.10) L Hemoglobin 9.0 G/DL (14.2-18.0) L Hematocrit 29.2 % (42.0-52.0) L Mean Corpuscular Volume 89 FL (80-99) Mean Corpuscular Hemoglobin 27.3 PG (27.0-31.0) Mean Corpuscular Hemoglobin Concent 30.8 G/DL (32.0-36.0) L Red Cell Distribution Width 15.7 % (11.6-14.8) H Platelet Count 453 K/UL (150-450) H Mean Platelet Volume 5.9 FL (6.5-10.1) L Neutrophils (%) (Auto) 71.1 % (45.0-75.0) Lymphocytes (%) (Auto) 16.9 % (20.0-45.0) L Monocytes (%) (Auto) 8.5 % (1.0-10.0) Eosinophils (%) (Auto) 3.0 % (0.0-3.0) Basophils (%) (Auto) 0.7 % (0.0-2.0) Assessment/Plan Assessment/Plan Healthcare associated PNA Paroxysmal atrial fibrillation/flutter Paroxysmal atrial ectopy 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 Dyslipidemia on high dose statin - now dose adjusted Dehydration/hypernatremia Severe protein-calorie malnutrition Multiple wounds Anemia - s/p tx Pleural effusion - s/p left thorocentesis Titrate beta blockade dose further. Abx Resp support Cardiac monitoring Statin dose adjusted Amiodarone at increased dose again to maintain sinus rhythm. Free water replacement as needed; off IVF for now. Continue anticoagulation with caution due to bleeding risk Dylan Mak MD Aug 15, 2020 04:01
--- NOTE | 2020-08-15 07:16 | NUR ---
NURSE HAND-OFF REPORT: Important Events on Shift:Pt continued scheduled medications. Patient Status: Stable Diet: Vital AF 60 ml/hr Pending Orders: Pending Results/Labs: Pending MD notification: Latest Vital Signs: Temperature 97.5 , Pulse 107 , B/P 101 /61 , Respiratory Rate 20 , O2 SAT 97 , Trach Collar, O2 Flow Rate 10.0 . Vital Sign Comment: VSS EKG Rhythm: Sinus Tachycardia Rhythm change?: N MD Notified?: N -Dr. Aubree VALDEZ Response: Message left await call Latest Ramirez Fall Score: 70 Fall Risk: High Risk Safety Measures: Call light Within Reach, Bed Alarm Zone 1, Side Rails Side Rails x3, Bed position Low and Locked. Fall Precautions: Patient Fall Education Report given to SELIN Rios.
--- NOTE | 2020-08-15 07:41 | NUR ---
NURSE NOTES: Patient seen in bed in semifowlers position with no acute signs of distress. The patient has a trach collar with 10L and 35% FiO2 with oxygen saturation within normal limits. The patient has a Gtube that is patent and intact with Vital AF running at 60cc/hr which is the goal. The patient has a R UA PICC like that is running NS at TKO rate of 10cc/hr. The patients bed is in lowest position, locked, side rails x2 and call light within reach.
[2020-08-15 08:00] VITALS: BP 114/59
--- NOTE | 2020-08-15 08:39 | NUR ---
CASE MANAGEMENT: REVIEW 08/15/20 SI: PNA. UTI. BACTEREMIA.PLEURAL EFFUSION THORACENTESIS 08/13 ~ 1.7L REMOVED 97.5 107 20 101/61 SAT 94% TRACH COLLAR FLOW RATE 10L/35% H/H-9.0/29.2 BUN+47 IS: AMIODARONE GT QD ZINC GT QD LOPRESSOR GT Q12 LIPITOR GT QHS VIT C GT BID KEPPRA GT Q12 PEPCID GT QD : TELEMETRY STATUS DCP: FROM HOME
--- NOTE | 2020-08-15 09:06 | Pulmonology Progress Note ---
Subjective ROS Limited/Unobtainable: Yes Allergies: Coded Allergies: No Known Allergies (Unverified , 11/02/19) All Systems: reviewed and negative except above Subjective CARE NOTED nonverbal on oxygen no distress at present; meds renewed trach collar imaging noted and underwent repeat tap Objective Last 24 Hour Vital Signs Date Time Temp Pulse Resp B/P (MAP) Pulse Ox O2 Delivery O2 Flow Rate FiO2 08/15/20 04:00 101 08/15/20 04:00 97.5 107 20 101/61 (74) 97 08/15/20 01:08 97 T-Piece 10.0 35 08/15/20 00:00 98.7 96 20 105/60 (75) 97 08/15/20 00:00 90 08/14/20 21:00 Trach Collar 12.0 08/14/20 20:38 116 119/61 08/14/20 20:00 112 08/14/20 20:00 99.1 116 22 119/61 (80) 97 08/14/20 19:35 96 T-Piece 10.0 35 08/14/20 16:00 96.7 81 23 103/89 (94) 97 08/14/20 16:00 108 08/14/20 15:05 96 T-Piece 6.0 40 08/14/20 13:00 98 T-Piece 6.0 40 08/14/20 12:00 89 08/14/20 12:00 97.7 86 23 103/89 (94) 96 Intake and Output 08/14/20 08/15/20 19:00 07:00 Intake Total 740 ml 260 ml Output Total 700 ml Balance 740 ml -440 ml Intake Free Water 200 ml 200 ml Tube Feeding 540 ml 60 ml Output Urine Total 700 ml # Bowel Movements 2 1 Objective WDWN NAD awake chronically ill moderate breath sounds bilaterally and now symmetric [id number] NABS nontender GT no CCE nonfocal weak wounds noted Current Medications Medications (Trade) Dose Ordered Sig/Clive Route PRN Reason Start Time Stop Time Status Last Admin Dose Admin Acetaminophen (Tylenol) 650 mg Q4H PRN GT Temp >100.5 07/18/20 09:30 08/17/20 09:29 08/14/20 04:14 Acetaminophen (Tylenol) 650 mg Q4H PRN RECTAL Temp >100.5 08/12/20 10:00 09/11/20 09:59 Amiodarone HCl (Cordarone) 400 mg DAILY@1800 GT 08/10/20 18:00 10/28/20 17:59 08/14/20 17:04 Ascorbic Acid (Vitamin C) 250 mg TWICE A DAY GT 07/16/20 18:00 08/15/20 17:59 08/14/20 17:04 Atorvastatin Calcium (Lipitor) 10 mg BEDTIME ORAL 08/05/20 21:00 10/22/20 20:59 08/14/20 20:35 Chlorhexidine Gluconate (Jennifer-Hex 2%) 1 applic DAILY@2000 TOPIC 07/17/20 20:00 10/15/20 19:59 08/14/20 20:35 Famotidine (Pepcid) 20 mg Q12HR GT 07/16/20 21:00 10/14/20 20:59 08/14/20 20:35 Finasteride (Proscar) 5 mg DAILY ORAL 07/15/20 09:00 10/13/20 08:59 08/14/20 08:47 Hydralazine HCl (Apresoline) 25 mg Q6H PRN GT SBP above 150 07/24/20 23:30 10/22/20 23:29 07/26/20 05:22 Levetiracetam (Keppra) 1,000 mg Q12HR ORAL 08/12/20 21:00 09/11/20 20:59 08/14/20 20:35 Metoprolol Tartrate (Lopressor) 100 mg Q12HR ORAL 08/13/20 09:00 11/11/20 08:59 08/14/20 20:38 Multivitamins (Multivitamins) 1 tab DAILY GT 07/17/20 09:00 08/16/20 08:59 08/14/20 08:47 Sodium Hypochlorite (Dakin's Half Strength) 1 applic DAILY TOPIC 07/16/20 13:00 08/15/20 12:59 08/14/20 08:47 Zinc Sulfate (Zinc Sulfate) 220 mg DAILY GT 07/27/20 09:00 10/25/20 08:59 08/14/20 08:47 Assessment/Plan Assessment/Plan Impression: Healthcare-associated pneumonia Acute respiratory failure with hypoxia Tracheostomy status Pleural effusion, left-recurrent s/p tap Decubitus ulcers Urinary tract infection Anemia S/p previous Craniotomy, RCA occlusion, SWITCH MAKER shunt Seizure history GERD, dysphagia s/p GJ tube h/o Hypertension h/o Atrial fibrillation Previous DVT and Pulmonary Embolism, hypernatremia Plan monitor for change events reviewed monitor HH for change J tube feeds monitor oxygen needs nebs as needed Wound care 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
[2020-08-15] MEDS: Metoprolol Tartrate 100mg tab ORAL SCH ×2 (09:09→22:08)
[2020-08-15] MEDS: Ascorbic Acid 500mg tab GT SCH (09:09)
[2020-08-15] MEDS: Zinc Sulfate 220mg GT SCH (09:09)
[2020-08-15] MEDS: Dakin's 0.25% (Half Strength) 16oz TOPIC SCH ×2 (09:14→16:00)
[2020-08-15 12:00] VITALS: BP 118/95
--- NOTE | 2020-08-15 14:17 | Surgery Progress Note ---
Surgery Progress Note Subjective Additional Comments latesha cute events comfortable with trach collar no n/v Objective Last 24 Hour Vital Signs Date Time Temp Pulse Resp B/P (MAP) Pulse Ox O2 Delivery O2 Flow Rate FiO2 08/15/20 12:00 90 08/15/20 12:00 98.7 93 22 118/95 (103) 95 08/15/20 09:09 103 114/59 08/15/20 09:00 Trach Collar 12.0 08/15/20 08:00 107 08/15/20 08:00 98.6 81 18 114/59 (77) 96 08/15/20 04:00 101 08/15/20 04:00 97.5 107 20 101/61 (74) 97 08/15/20 01:08 97 T-Piece 10.0 35 08/15/20 00:00 98.7 96 20 105/60 (75) 97 08/15/20 00:00 90 08/14/20 21:00 Trach Collar 12.0 08/14/20 20:38 116 119/61 08/14/20 20:00 112 08/14/20 20:00 99.1 116 22 119/61 (80) 97 08/14/20 19:35 96 T-Piece 10.0 35 08/14/20 16:00 96.7 81 23 103/89 (94) 97 08/14/20 16:00 108 08/14/20 15:05 96 T-Piece 6.0 40 I&O Intake and Output 08/14/20 08/15/20 19:00 07:00 Intake Total 740 ml 260 ml Output Total 700 ml Balance 740 ml -440 ml Intake Free Water 200 ml 200 ml Tube Feeding 540 ml 60 ml Output Urine Total 700 ml # Bowel Movements 2 1 Dressing: saturated Cardiovascular: RSR Respiratory: decreased breath sounds Abdomen: soft, flat, non-tender, present bowel sounds Extremities: no cyanosis, pulses, other Plan Problems: (1) Decubitus skin ulcer Assessment & Plan: Pt presented on admission with PV shunt,Tracheostomy, Contractures and multiple Pressure Injuries.Skin assessed under tracheal collar. Skin is erythematous but without any open wounds. GT site is red and excoriated.Scattered senile purpuras bilat upper extremities. Full thickness Sacral Pressure Injury(L)11.8cm x (W)8cm. Base of wound is 75% mixed necrosis and slough,20% antonio. Bone is palpable at base. Edges are macerated. Mild odor noted. Small amt brown exudate noted. Periwound is indurated and maroon with additional erythema and scattered Partial thickness shearing. Full Thickness Pressure Injury L trochanteric with undermined borders.(L)5cm x (W)7cm x (D)2.6cm, undermining clockwise 11-2 by 4.2cm @11o'clock. Base of wound is 75%% mixed necrosis and slough,25% antonio. Wound has appearance of two wounds secondary necrotic bridge.In addition, periwound at clockwise 10-2o'clock the base is necrotic and fluctuant with marginal erythema. Small amt malodorous haemopurulent exudate noted. Full thickness Pressure Injury L Ischium(L)3.5cm x (W)2.0cm. Base of wound is 80% slough,20% antonio. Surrounding necrotic borders that are fluctuant.Small amt sanguineous exudate. Mild odor noted. Full thickness Pressure Injury lateral L Tibia to L lateral Malleolus(L)24.5cm x (W)3.5cm. Base of wound is antonio with scattered necrosis and slough, tendon exposure. Semi-detached borders that indurated and macerated with an area of soft necrosis at proximal borders of wound. Small amt haemopurulent exudate noted. No odor noted. Full thickness Pressure Injury L Heel(L)10.3cm x (W)7.5cm. Base of wound is 60% necrotic,10% slough,30% antonio. Bone is palpable. Borders are indurated with a portion of borders rolled giving heel a shaved appearance. Moderate amt haemopurulent exudate. Mild odor noted.Periwound is purpuric and fluctuant. Full thickness Pressure Injury medial/lateral L foot(L)3.5cm x (W)3.5cm x (D)0.3cm. Base of wound is antonio. Borders and periwound are purpuric and fluctuant.Small amt sanguineous exudate noted. Unstageable Pressure Injury Distal/Lateral L foot(L)2.7cm x (W)4.3cm. Base of wound is 80% soft necrosis,20% antonio. Edges are adherent to base of wound. Periwound is purpuric and fluctuant. Full thickness Pressure Injury R heel Plantar(L)8.5cm x (W)9cm. Base of pressure with scattered necrosis and slough,otherwise base of wound is antonio. Edges are macerated with surrounding necrosis. Small amt seropurulent exudate noted.Mild odor noted. Stable dry eschar dorsal R foot1.5cm x (W)1cm. Edges are adherent to base of wound. No erythema,induration or fluctuance periwound. Stable dry eschar distal/lateral R foot (L)0.8cm x (W)0.8cm. NO erythema,induration or fluctuance periwound. R foot is edematous. Tx.Plan: Cleanse Sacral wound with Dakin's Kristel 0.25%. Apply Dakin's moistened kerlix to wound. Apply Triad periwound. Cover with Optifoam drsg. Change Daily and prn. Cleanse L trochanteric Wound with Dakin's Kristel 0.25%. Loosely pack with Dakin's moistened Kerlix, Apply Moisture Barrier Periwound. Cover with Optifoam drsg Daily and prn. Cleanse R Ischial wound with Dakin's Kristel 0.25%. Apply Dakin's moistened gauze to wound. Apply Moisture Barrier Paste periwound. Cover with Optifoam drsg Daily and prn. Cleanse wounds Lateral R lower extremity, R Heel and Lateral R foot with Dakin's Kristel 0.25%. Place Dakin's Moistened gauze to wounds. Apply Triad Paste along edges of wound. Cover wounds with ABD Pads. Wrap with Kerlix from Base of toes. Cleanse wound R heel with Dakin's Kristel 0.25%. Apply Dakin's moistened Gauze to wound. Apply Triad Periwound. Cover with ABD PAd and wrap with Kerlix. Swab dry Eschar dorsal and Lateral aspect of R foot .Cover with Abd Pads and Wrap with Kerlix Daily and prn. Wash GT site with Soap and water. Apply Triad Paste Daily and prn(Leave Open to Air) Reposition at least every 2hours or as tolerated. Place Pillow Between Knees. Off-Load Heels with Pillow. APM/TERRIE Mattress overlay. Loose non-viable tissue of R Heel removed by . Scattered slough at base of wound. Wound is malodorous. Cleansed with Dakin's 0.25% kristel. Dakin's moistened gauze applied . Triad Paste applied along borders. Covered with ABD pad and wrapped with Kerlix. Wound Lateral L Tibia re-evaluated . Base of wound is moist,granular, small area of bone and tendon exposure. noted. Small amt sanguineous exudate noted. No odor noted . Edges are adherent to base of wound. No evidence of additional skin breakdown periwound . New Tx orders received from for Promogran. Tx amended and applied as per Md's orders. Tx.Plan:Cleanse Lateral L Tibia with Saline. Apply Promogran to wound. Cover with ABD Pad. Wrap with Kerlix. Change every [id number]. (2) Anemia Assessment & Plan: trend h/h prbc prn (3) UTI (urinary tract infection) (4) Pleural effusion, left Assessment & Plan: Ultrasound used to localize optimal puncture site. Sterile prepping and draping left chest. Local anesthesia with 1% lidocaine. Under real-time ultrasound guidance, puncture pleural space using thoracentesis needle. Stylet removed. Catheter placed to vacuum bottle suction. Total 1700 milliliters of fluid aspirated. Patient tolerated procedure well, without immediate complication. Findings: Followup sonography demonstrates small amount of residual pleural fluid. Impression: Successful ultrasound-guided thoracentesis, yielding 1700 milliliters of fluid Lungs: Hazy left lung attenuation could be due to consolidation, pulmonary edema; correlate with presentation. Retrocardiac atelectasis without or with consolidation. Pleural space: Small-moderate left pleural effusion with passive atelectasis. No pneumothorax. Heart: Unremarkable. No cardiomegaly. Mediastinum: Unremarkable. Bones/joints: No acute abnormality Tubes, lines and devices: Tracheostomy. Right upper extremity PICC tip in the mid SVC. IMPRESSION: 1. Tracheostomy. 2. Right upper extremity PICC tip in the mid SVC. 3. Small-moderate left pleural effusion with passive atelectasis. 4. Hazy left lung attenuation could be due to consolidation, pulmonary edema; correlate with presentation. 5. Retrocardiac atelectasis without or with consolidation. 6. Recommend CT chest with IV contrast to further characterize these findings. (5) Malfunction of gastrostomy tube Assessment & Plan: DAILY ESTIMATED NEEDS: Needs based on Wounds, pulmonary/ 74.5kg 25-30 kcals/kg 1652-3001 total kcals 1.5-2 g protein/kg 111-149 g total protein 25-30 mL/kg 5599-2532 total fluid mLs NUTRITION DIAGNOSIS: * Swallowing difficulty R/T dysphagia, h/o craniotomy, respiratory failure as evidenced by pt on T-collar, GJ tube dependent. * Increased kcal/prot/micronutrients needs R/T wound healing as evidenced by pt admitted w/ multiple advanced wounds including full thickness wound x 7 and unstageable wounds x 2, refer to eval. CURRENT TF:Jevity 1.2 @ 60ml/hr x 24 hrs-> now Glucerna 1.2 ENTERAL NUTRITION RECOMMENDATIONS: Glucerna 1.2 @ 65ml/hr x 24 hrs + Prosource 1pkt TID to provide 1560ml, 1872kcal, 94g+ 33g prot, 1259ml free water * Increase goal rate to 65ml/hr x 24 hrs to better meet est needs * Add Prosource 1pkt TID to meet increased protein needs * HOB over 30 degrees/ water flush 150ml q 6hrs without IVF ADDITIONAL RECOMMENDATIONS: * Calibrated bedscale wt * Wound Care: Con't Vit C 500mg BID, ZnSO4 220mg QD x 10 days add Stevie BID * Monitor BGs, need for carb controlled TF -> now on Glucerna 1.2 * Monitor lytes, replete as needed (6) Acute respiratory failure with hypoxia (7) HCAP (healthcare-associated pneumonia) Deny Westfall Aug 15, 2020 14:17
[2020-08-15 16:00] VITALS: BP 127/81
--- NOTE | 2020-08-15 16:59 | NUR ---
BOX TOE BUFFER NOTES SPOKE WITH [facility] FROM [facility] , PT ACCEPTED. FISH WILL SEND NURSE OUT ONCE PT GETS HOME TODAY. SPOKE WITH PT'S DAUGHTER REBEKA AWARE OF DC PLANS AND IS AGREEMENT WITH [facility] AT THIS TIME. [place] ADDRESS [id number] [facility] [id number] [place] [id number] Addendum: 08/15/20 at 1702 by KEISHA HERNANDEZ RN CM [place] T. [phone] FISH Addendum: 08/15/20 at 1740 by KEISHA HERNANDEZ RN CM SPOKE WITH FISH FROM [facility] SHE WILL MEET THE PT AT HIS HOUSE AT 1900, SPOKE WITH REBEKA MADE AWARE OF THE TIME THE PT WILL DC.
--- NOTE | 2020-08-15 17:25 | NUR ---
*-*DISCHARGE PLANNING*-* PATIENT HAS BEEN REFERRED TO: [facility] P: [phone]
--- NOTE | 2020-08-15 17:33 | General Progress Note ---
Subjective ROS Limited/Unobtainable: Yes Constitutional: Reports: malaise, weakness HEENT: Reports: no symptoms Cardiovascular: Reports: no symptoms Respiratory: Reports: cough Gastrointestinal/Abdominal: Reports: difficulty swallowing Genitourinary: Reports: no symptoms Neurologic/Psychiatric: Reports: pre-existing deficit Endocrine: Reports: no symptoms Hematologic/Lymphatic: Reports: anemia Allergies: Coded Allergies: No Known Allergies (Unverified , 11/02/19) All Systems: reviewed and negative except above Subjective No overnight events. Stable on trach collar. Awake but nonverbal and poorly responsive. Does not track or follow commands. Tolerating G-tube feeds. Labs reviewed. h/h stable. no reports of bleeding. cxr with tejal infiltrates- no change Objective Last 24 Hour Vital Signs Date Time Temp Pulse Resp B/P (MAP) Pulse Ox O2 Delivery O2 Flow Rate FiO2 08/15/20 16:00 98.6 67 21 127/81 (96) 94 08/15/20 16:00 97 08/15/20 13:00 95 T-Piece 10.0 35 08/15/20 12:00 90 08/15/20 12:00 98.7 93 22 118/95 (103) 95 08/15/20 09:09 103 114/59 08/15/20 09:00 Trach Collar 12.0 08/15/20 08:00 107 08/15/20 08:00 98.6 81 18 114/59 (77) 96 08/15/20 07:40 96 T-Piece 10.0 35 08/15/20 04:00 101 08/15/20 04:00 97.5 107 20 101/61 (74) 97 08/15/20 01:08 97 T-Piece 10.0 35 08/15/20 00:00 98.7 96 20 105/60 (75) 97 08/15/20 00:00 90 08/14/20 21:00 Trach Collar 12.0 08/14/20 20:38 116 119/61 08/14/20 20:00 112 08/14/20 20:00 99.1 116 22 119/61 (80) 97 08/14/20 19:35 96 T-Piece 10.0 35 Intake and Output 08/14/20 08/15/20 19:00 07:00 Intake Total 740 ml 260 ml Output Total 700 ml Balance 740 ml -440 ml Intake Free Water 200 ml 200 ml Tube Feeding 540 ml 60 ml Output Urine Total 700 ml # Bowel Movements 2 1 Height (Feet): 5 Height (Inches): 4.00 Weight (Pounds): 171 Objective General Appearance: WD/WN, confused EENT: normal ENT inspection Neck: normal alignment Cardiovascular: normal rate, regular rhythm Respiratory/Chest: rhonchi - bilaterally Abdomen: normal bowel sounds, non tender, soft, no organomegaly Edema: no edema noted Leg (L), no edema noted Leg (R) Neurologic: disoriented, aphasia Skin: normal pigmentation Assessment/Plan Problem List: (1) Anemia ICD Codes: D64.9 - Anemia, unspecified SNOMED: 807804737, 554765764 Qualifiers: Qualified Codes: D50.0 - Iron deficiency anemia secondary to blood loss (chronic) (2) Pleural effusion, left ICD Codes: J90 - Pleural effusion, not elsewhere classified SNOMED: 76109801, 604956651 (3) Malfunction of gastrostomy tube ICD Codes: K94.23 - Gastrostomy malfunction SNOMED: 930820062 (4) Acute respiratory failure with hypoxia ICD Codes: J96.01 - Acute respiratory failure with hypoxia SNOMED: 64794360, 808075458 (5) HCAP (healthcare-associated pneumonia) ICD Codes: J18.9 - Pneumonia, unspecified organism SNOMED: 818569284, 005142165 Status: stable, progressing Assessment/Plan: Continue trach collar. Oxygen as needed Keep sats greater than 92% Pulmonary toilet suctioning G-tube feeds Monitor residuals Cautious resumption of anticoagulation-cleared by GI Continue H2 ezekiel Monitor lites IV fluids as needed Turn every 2 hours Poor long-term prognosis for meaningful recovery wants pt to go home refusing subacute Angel Jaramillo MD Aug 15, 2020 17:32
[2020-08-15] MEDS: Amiodarone 200mg tab GT SCH (18:36)
--- NOTE | 2020-08-15 19:01 | NUR ---
NURSE HAND-OFF REPORT: Important Events on Shift:[D/C home with HH] Patient Status: [Full code] Diet: [Vital AF 60cc/hr] Pending Orders: [N/A] Pending Results/Labs:[N/A] Pending MD notification:[N/A] Latest Vital Signs: Temperature 98.6 , Pulse 97 , B/P 127 /81 , Respiratory Rate 21 , O2 SAT 94 , Trach Collar, O2 Flow Rate 10.0 . Vital Sign Comment: [] EKG Rhythm: Sinus Rhythm Rhythm change?: N Notified?: N -Dr. Aubree VALDEZ Response: Message left await call Latest Ramirez Fall Score: 70 Fall Risk: High Risk Safety Measures: Call light Within Reach, Bed Alarm Zone 1, Side Rails Side Rails x3, Bed position Low and Locked. Fall Precautions: Patient Fall Education Report given to [SELIN العلي].
[2020-08-15 20:00] VITALS: BP 99/69
--- NOTE | 2020-08-15 21:24 | General Progress Note ---
Subjective Allergies: Coded Allergies: No Known Allergies (Unverified , 11/02/19) Subjective Above noted non communicative tolerating TF Objective Last 24 Hour Vital Signs Date Time Temp Pulse Resp B/P (MAP) Pulse Ox O2 Delivery O2 Flow Rate FiO2 08/15/20 19:07 93 T-Piece 10.0 35 08/15/20 16:00 98.6 67 21 127/81 (96) 94 08/15/20 16:00 97 08/15/20 13:00 95 T-Piece 10.0 35 08/15/20 12:00 90 08/15/20 12:00 98.7 93 22 118/95 (103) 95 08/15/20 09:09 103 114/59 08/15/20 09:00 Trach Collar 12.0 08/15/20 08:00 107 08/15/20 08:00 98.6 81 18 114/59 (77) 96 08/15/20 07:40 96 T-Piece 10.0 35 08/15/20 04:00 101 08/15/20 04:00 97.5 107 20 101/61 (74) 97 08/15/20 01:08 97 T-Piece 10.0 35 08/15/20 00:00 98.7 96 20 105/60 (75) 97 08/15/20 00:00 90 Intake and Output 08/14/20 08/15/20 19:00 07:00 Intake Total 740 ml 260 ml Output Total 700 ml Balance 740 ml -440 ml Intake Free Water 200 ml 200 ml Tube Feeding 540 ml 60 ml Output Urine Total 700 ml # Bowel Movements 2 1 Height (Feet): 5 Height (Inches): 4.00 Weight (Pounds): 171 Objective Eldely WM NCAT (+) trach , T tube Coarse BS RRR abd soft (+) GT ext no edema Assessment/Plan Status: stable, progressing Assessment/Plan: Assessment - UGIB - resolved - Anemia, s/p transfusion - h/o PUD - resp failure, s/p trach - dysphagia, s/p PEG - atrial fibrillation - h/o DVT - hypernatremia - loose BM - improved Recommendations - anticoagulation - H2B BID indefinitely - vital AF - free water - follow H&H - monitor BM Akiko Rai MD Aug 15, 2020 21:24
[2020-08-15] MEDS: Atorvastatin 20mg tab ORAL SCH (21:59)
[2020-08-15] MEDS: Dyna-Hex 2% Top Sol 2oz TOPIC SCH (21:59)
--- NOTE | 2020-08-15 23:03 | NUR ---
NURSE NOTES: Patient left for a home discharge. Once patient was home, they saw that the tank that they had at home was not going to support the patient. As soon as they connected him he began to desaturate according to EMS. Patient was brought back to hospital and all orders remained the same. Dr. Devlin was notified and he acknowledged the message but no new orders were given.
[2020-08-16] VITALS: BP 95/55
[2020-08-16] MEDS: Acetaminophen 650mg/20.3ml GT PRN (01:33)
--- NOTE | 2020-08-16 02:03 | Cardiology Progress Note ---
Subjective DATE OF SERVICE: Aug 15, 2020 s/p 1700cc thorocentesis 08/13/20. No new bleeding; back on anticoagulation now following GI clearance. BP parameters stabilized. Monitor: AFib/flutter persisting with increased ventricular rates now. Objective Last 24 Hour Vital Signs Date Time Temp Pulse Resp B/P (MAP) Pulse Ox O2 Delivery O2 Flow Rate FiO2 08/16/20 00:00 91 08/16/20 00:00 99.0 98 17 95/55 (68) 98 08/15/20 22:08 125 99/66 08/15/20 21:00 Trach Collar 12.0 08/15/20 20:00 99.0 125 22 99/69 (79) 97 08/15/20 19:07 93 T-Piece 10.0 35 08/15/20 16:00 98.6 67 21 127/81 (96) 94 08/15/20 16:00 97 08/15/20 13:00 95 T-Piece 10.0 35 08/15/20 12:00 90 08/15/20 12:00 98.7 93 22 118/95 (103) 95 08/15/20 09:09 103 114/59 08/15/20 09:00 Trach Collar 12.0 08/15/20 08:00 107 08/15/20 08:00 98.6 81 18 114/59 (77) 96 08/15/20 07:40 96 T-Piece 10.0 35 08/15/20 04:00 101 08/15/20 04:00 97.5 107 20 101/61 (74) 97 ROS: unchanged from 07/14/20 HEENT: Thick Trach secretions RHYTHM: NSR, ST, PACs, Afib LUNGS: bilateral rhonchi CARDIAC: normal S1 and S2, rapid rate, arrhythmia ABDOMEN: normal bowel sounds, soft, G-Tube intact EXTREMITIES: normal range of motion, non-tender, trace edema, other - withdrawn Assessment/Plan Assessment/Plan Healthcare associated PNA Paroxysmal atrial fibrillation/flutter Paroxysmal atrial ectopy Hx ICB with craniotomy and [employer] ARCHITECT shunt Ac/chronic encephalopathy Seizure disorder Troponin leak; no signs of acute CA Trach status Dysphagia with GJ-Tube 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 Dyslipidemia on high dose statin - now dose adjusted Dehydration/hypernatremia Severe protein-calorie malnutrition Multiple wounds Anemia - s/p tx Pleural effusion - s/p left thorocentesis Titrate beta blockade dose as tolerated. Abx Resp support Cardiac monitoring Statin dose adjusted Amiodarone at increased dose again to maintain sinus rhythm. Free water replacement as needed; off IVF for now. Continue anticoagulation with caution due to bleeding risk Dylan Mak MD Aug 16, 2020 02:03
[2020-08-16 04:00] VITALS: BP 100/56
--- NOTE | 2020-08-16 07:30 | NUR ---
NURSE NOTES: Received report from Sandi/RN, Observed patient asleep, Lying semi-johnston's, resting comfortably. On Trach collar 6L, FiO2 40%,no acute distress/SOB noted. Right upper Arm PICC line patent and intact. Vital A.F running at 40cc/hr at this time, goal is 60cc/hr. [place] draining well to gravity. Bed in low position and locked, Call light within reach. Will continue plan of care.
--- NOTE | 2020-08-16 07:32 | NUR ---
NURSE HAND-OFF REPORT: Important Events on Shift:Patient was discharged home but brought back due to inadequate oxygen tank. Dr. Devlin aware.] Patient Status: [full code] Diet: [Vital AF @ 60cc/hr] Pending Orders: [] Pending Results/Labs:[] Pending MD notification:[] Latest Vital Signs: Temperature 99.6 , Pulse 101 , B/P 100 /56 , Respiratory Rate 17 , O2 SAT 93 , Trach Collar, O2 Flow Rate 12.0 . Vital Sign Comment: [] EKG Rhythm: Sinus Tachycardia Rhythm change?: N MD Notified?: N -Dr. Aubree VALDEZ Response: Message left await call Latest Ramirez Fall Score: 70 Fall Risk: High Risk Safety Measures: Call light Within Reach, Bed Alarm Zone 1, Side Rails Side Rails x3, Bed position Low and Locked. Fall Precautions: Patient Fall Education Report given to [SELIN Alston].
[2020-08-16 08:00] VITALS: BP 99/59
--- NOTE | 2020-08-16 08:43 | NUR ---
RD ASSESSMENT & RECOMMENDATIONS SEE CARE ACTIVITY FOR COMPLETE ASSESSMENT DAILY ESTIMATED NEEDS: Needs based on Wounds, pulmonary/ 74.5kg 25-30 kcals/kg 3023-0421 total kcals 1.5-2 g protein/kg 111-149 g total protein 25-30 mL/kg 9811-4221 total fluid mLs NUTRITION DIAGNOSIS: * Swallowing difficulty R/T dysphagia, h/o craniotomy, respiratory failure as evidenced by pt on T-collar, GJ tube dependent. * Increased kcal/prot/micronutrients needs R/T wound healing as evidenced by pt admitted w/ multiple advanced wounds including full thickness wound x 7 and unstageable wounds x 2, refer to WC eval. CURRENT TF:Jevity 1.2 @ 60ml/hr x 24 hrs-> now Glucerna 1.2 -> now Vital AF 1.2 ENTERAL NUTRITION RECOMMENDATIONS: Vital AF 1.2 @ 65ml/hr x 24 hrs to provide 1560ml, 1872kcal, 117g prot, 1265ml free water * If pt is to remains on Vital AF, increase goal rate to 65ml/hr x 24 hrs to better meet est needs * HOB over 30 degrees/ water flush 180ml q 6hrs without IVF ------ elemental TF formula of Vital AF not indicated, consider changing TF to Glucerna 1.2 @ 65ml/hr x 24 hrs + Prosource 1pkt TID to provide 1560ml, 1872kcal, 94g+ 33g prot, 1259ml free water ADDITIONAL RECOMMENDATIONS: * Calibrated bedscale wt * Wound Care: Con't Vit C 500mg BID, ZnSO4 220mg QD x 10 days add Stevie BID * Monitor lytes, replete as needed * Increase water flushes: elev Na-> now wnl and elev BUN * Monitor BGs, need for hypoglycemics
[2020-08-16] MEDS: Metoprolol Tartrate 100mg tab ORAL SCH ×2 (09:00→21:25)
--- NOTE | 2020-08-16 09:22 | Pulmonology Progress Note ---
Subjective ROS Limited/Unobtainable: Yes Allergies: Coded Allergies: No Known Allergies (Unverified , 11/02/19) All Systems: reviewed and negative except above Subjective CARE NOTED nonverbal on oxygen trach collar patient discharged and returned due to low oxygen Objective Last 24 Hour Vital Signs Date Time Temp Pulse Resp B/P (MAP) Pulse Ox O2 Delivery O2 Flow Rate FiO2 08/16/20 08:00 99.7 90 16 99/59 (72) 99 08/16/20 04:00 101 08/16/20 04:00 99.6 114 17 100/56 (71) 93 08/16/20 02:03 99.9 08/16/20 01:00 98 T-Piece 12.0 40 08/16/20 00:00 91 08/16/20 00:00 99.0 98 17 95/55 (68) 98 08/15/20 22:08 125 99/66 08/15/20 21:00 Trach Collar 12.0 08/15/20 20:00 99.0 125 22 99/69 (79) 97 08/15/20 19:07 93 T-Piece 10.0 35 08/15/20 16:00 98.6 67 21 127/81 (96) 94 08/15/20 16:00 97 08/15/20 13:00 95 T-Piece 10.0 35 08/15/20 12:00 90 08/15/20 12:00 98.7 93 22 118/95 (103) 95 Intake and Output 08/15/20 08/16/20 19:00 07:00 Intake Total 220 ml 450 ml Output Total 650 ml 300 ml Balance -430 ml 150 ml Intake Free Water 100 ml 50 ml Tube Feeding 120 ml 400 ml Output Urine Total 650 ml 300 ml Objective WDWN NAD awake chronically ill moderate breath sounds bilaterally and now symmetric [id number] NABS nontender GT no CCE nonfocal weak wounds noted Current Medications Medications (Trade) Dose Ordered Sig/Clive Route PRN Reason Start Time Stop Time Status Last Admin Dose Admin Acetaminophen (Tylenol) 650 mg Q4H PRN GT Temp >100.5 07/18/20 09:30 08/17/20 09:29 08/16/20 01:33 Acetaminophen (Tylenol) 650 mg Q4H PRN RECTAL Temp >100.5 08/12/20 10:00 09/11/20 09:59 Amiodarone HCl (Cordarone) 400 mg DAILY@1800 GT 08/10/20 18:00 10/28/20 17:59 08/15/20 18:36 Atorvastatin Calcium (Lipitor) 10 mg BEDTIME ORAL 08/05/20 21:00 10/22/20 20:59 08/15/20 21:59 Chlorhexidine Gluconate (Jennifer-Hex 2%) 1 applic DAILY@2000 TOPIC 07/17/20 20:00 10/15/20 19:59 08/15/20 21:59 Famotidine (Pepcid) 20 mg Q12HR GT 07/16/20 21:00 10/14/20 20:59 08/15/20 21:59 Finasteride (Proscar) 5 mg DAILY ORAL 07/15/20 09:00 10/13/20 08:59 08/15/20 09:11 Hydralazine HCl (Apresoline) 25 mg Q6H PRN GT SBP above 150 07/24/20 23:30 10/22/20 23:29 07/26/20 05:22 Levetiracetam (Keppra) 1,000 mg Q12HR ORAL 08/12/20 21:00 09/11/20 20:59 08/15/20 21:59 Metoprolol Tartrate (Lopressor) 100 mg Q12HR ORAL 08/13/20 09:00 11/11/20 08:59 08/15/20 22:08 Sodium Hypochlorite (Dakin's Half Strength) 1 applic DAILY TOPIC 08/15/20 16:00 09/14/20 15:59 08/15/20 16:00 Zinc Sulfate (Zinc Sulfate) 220 mg DAILY GT 07/27/20 09:00 10/25/20 08:59 08/15/20 09:09 Assessment/Plan Assessment/Plan Impression: Healthcare-associated pneumonia Acute respiratory failure with hypoxia Tracheostomy status Pleural effusion, left-recurrent s/p tap Decubitus ulcers Urinary tract infection Anemia S/p previous Craniotomy, RCA occlusion, 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
[2020-08-16] MEDS: Dakin's 0.25% (Half Strength) 16oz TOPIC SCH (09:23)
[2020-08-16] MEDS: Zinc Sulfate 220mg GT SCH (09:23)
--- NOTE | 2020-08-16 10:11 | General Progress Note ---
Subjective ROS Limited/Unobtainable: No Constitutional: Reports: malaise, weakness HEENT: Reports: no symptoms Cardiovascular: Reports: no symptoms Respiratory: Reports: cough, shortness of breath, sputum Gastrointestinal/Abdominal: Reports: difficulty swallowing Genitourinary: Reports: no symptoms Neurologic/Psychiatric: Reports: pre-existing deficit Endocrine: Reports: no symptoms Hematologic/Lymphatic: Reports: no symptoms Allergies: Coded Allergies: No Known Allergies (Unverified , 11/02/19) All Systems: reviewed and negative except above Subjective No overnight events. Stable on trach collar. Awake but nonverbal and poorly responsive. Does not track or follow commands. Tolerating G-tube feeds. Labs reviewed. h/h stable. no reports of bleeding. cxr with tejal infiltrates- no change Objective Last 24 Hour Vital Signs Date Time Temp Pulse Resp B/P (MAP) Pulse Ox O2 Delivery O2 Flow Rate FiO2 08/16/20 09:00 90 99/59 08/16/20 09:00 Trach Collar 12.0 08/16/20 08:00 99.7 90 16 99/59 (72) 99 08/16/20 08:00 91 08/16/20 04:00 101 08/16/20 04:00 99.6 114 17 100/56 (71) 93 08/16/20 02:03 99.9 08/16/20 01:00 98 T-Piece 12.0 40 08/16/20 00:00 91 08/16/20 00:00 99.0 98 17 95/55 (68) 98 08/15/20 22:08 125 99/66 08/15/20 21:00 Trach Collar 12.0 08/15/20 20:00 99.0 125 22 99/69 (79) 97 08/15/20 19:07 93 T-Piece 10.0 35 08/15/20 16:00 98.6 67 21 127/81 (96) 94 08/15/20 16:00 97 08/15/20 13:00 95 T-Piece 10.0 35 08/15/20 12:00 90 08/15/20 12:00 98.7 93 22 118/95 (103) 95 Intake and Output 08/15/20 08/16/20 19:00 07:00 Intake Total 220 ml 450 ml Output Total 650 ml 300 ml Balance -430 ml 150 ml Intake Free Water 100 ml 50 ml Tube Feeding 120 ml 400 ml Output Urine Total 650 ml 300 ml Height (Feet): 5 Height (Inches): 4.00 Weight (Pounds): 171 Objective General Appearance: WD/WN, confused EENT: normal ENT inspection Neck: normal alignment Cardiovascular: normal rate, regular rhythm Respiratory/Chest: rhonchi - bilaterally Abdomen: normal bowel sounds, non tender, soft, no organomegaly Edema: no edema noted Leg (L), no edema noted Leg (R) Neurologic: disoriented, aphasia Skin: normal pigmentation Assessment/Plan Problem List: (1) Anemia ICD Codes: D64.9 - Anemia, unspecified SNOMED: 413276603, 294312649 Qualifiers: Qualified Codes: D50.0 - Iron deficiency anemia secondary to blood loss (chronic) (2) Pleural effusion, left ICD Codes: J90 - Pleural effusion, not elsewhere classified SNOMED: 52951667, 414790641 (3) Malfunction of gastrostomy tube ICD Codes: K94.23 - Gastrostomy malfunction SNOMED: 077561054 (4) Acute respiratory failure with hypoxia ICD Codes: J96.01 - Acute respiratory failure with hypoxia SNOMED: 24821757, 272666522 (5) HCAP (healthcare-associated pneumonia) ICD Codes: J18.9 - Pneumonia, unspecified organism SNOMED: 955500555, 139618241 Status: stable, progressing Assessment/Plan: Continue trach collar. Oxygen as needed Keep sats greater than 92% Pulmonary toilet suctioning G-tube feeds Monitor residuals Cautious resumption of anticoagulation-cleared by GI Continue H2 ezekiel Monitor lites IV fluids as needed Turn every 2 hours Poor long-term prognosis for meaningful recovery wants pt to go home refusing subacute Angel Jaramillo MD Aug 16, 2020 10:11
[2020-08-16 12:00] VITALS: BP 96/62
--- NOTE | 2020-08-16 12:04 | Surgery Progress Note ---
Surgery Progress Note Subjective Additional Comments no acute events Objective Last 24 Hour Vital Signs Date Time Temp Pulse Resp B/P (MAP) Pulse Ox O2 Delivery O2 Flow Rate FiO2 08/16/20 09:00 90 99/59 08/16/20 09:00 Trach Collar 12.0 08/16/20 08:00 99.7 90 16 99/59 (72) 99 08/16/20 08:00 91 08/16/20 04:00 101 08/16/20 04:00 99.6 114 17 100/56 (71) 93 08/16/20 02:03 99.9 08/16/20 01:00 98 T-Piece 12.0 40 08/16/20 00:00 91 08/16/20 00:00 99.0 98 17 95/55 (68) 98 08/15/20 22:08 125 99/66 08/15/20 21:00 Trach Collar 12.0 08/15/20 20:00 99.0 125 22 99/69 (79) 97 08/15/20 19:07 93 T-Piece 10.0 35 08/15/20 16:00 98.6 67 21 127/81 (96) 94 08/15/20 16:00 97 08/15/20 13:00 95 T-Piece 10.0 35 I&O Intake and Output 08/15/20 08/16/20 19:00 07:00 Intake Total 220 ml 450 ml Output Total 650 ml 300 ml Balance -430 ml 150 ml Intake Free Water 100 ml 50 ml Tube Feeding 120 ml 400 ml Output Urine Total 650 ml 300 ml Dressing: saturated Cardiovascular: RSR Respiratory: decreased breath sounds Abdomen: soft, flat, non-tender, present bowel sounds Extremities: edema, no cyanosis, pulses, other Plan Problems: (1) Decubitus skin ulcer Assessment & Plan: Pt presented on admission with PV shunt,Tracheostomy, Contractures and multiple Pressure Injuries.Skin assessed under tracheal collar. Skin is erythematous but without any open wounds. GT site is red and excoriated.Scattered senile purpuras bilat upper extremities. Full thickness Sacral Pressure Injury(L)11.8cm x (W)8cm. Base of wound is 75% mixed necrosis and slough,20% antonio. Bone is palpable at base. Edges are macerated. Mild odor noted. Small amt brown exudate noted. Periwound is indurated and maroon with additional erythema and scattered Partial thickness shearing. Full Thickness Pressure Injury L trochanteric with undermined borders.(L)5cm x (W)7cm x (D)2.6cm, undermining clockwise 11-2 by 4.2cm @11o'clock. Base of wound is 75%% mixed necrosis and slough,25% antonio. Wound has appearance of two wounds secondary necrotic bridge.In addition, periwound at clockwise 10-2o'clock the base is necrotic and fluctuant with marginal erythema. Small amt malodorous haemopurulent exudate noted. Full thickness Pressure Injury L Ischium(L)3.5cm x (W)2.0cm. Base of wound is 80% slough,20% antonio. Surrounding necrotic borders that are fluctuant.Small amt sanguineous exudate. Mild odor noted. Full thickness Pressure Injury lateral L Tibia to L lateral Malleolus(L)24.5cm x (W)3.5cm. Base of wound is antonio with scattered necrosis and slough, tendon exposure. Semi-detached borders that indurated and macerated with an area of soft necrosis at proximal borders of wound. Small amt haemopurulent exudate noted. No odor noted. Full thickness Pressure Injury L Heel(L)10.3cm x (W)7.5cm. Base of wound is 60% necrotic,10% slough,30% antonio. Bone is palpable. Borders are indurated with a portion of borders rolled giving heel a shaved appearance. Moderate amt haemopurulent exudate. Mild odor noted.Periwound is purpuric and fluctuant. Full thickness Pressure Injury medial/lateral L foot(L)3.5cm x (W)3.5cm x (D)0.3cm. Base of wound is antonio. Borders and periwound are purpuric and fluctuant.Small amt sanguineous exudate noted. Unstageable Pressure Injury Distal/Lateral L foot(L)2.7cm x (W)4.3cm. Base of wound is 80% soft necrosis,20% antonio. Edges are adherent to base of wound. Periwound is purpuric and fluctuant. Full thickness Pressure Injury R heel Plantar(L)8.5cm x (W)9cm. Base of pressure with scattered necrosis and slough,otherwise base of wound is antonio. Edges are macerated with surrounding necrosis. Small amt seropurulent exudate noted.Mild odor noted. Stable dry eschar dorsal R foot1.5cm x (W)1cm. Edges are adherent to base of wound. No erythema,induration or fluctuance periwound. Stable dry eschar distal/lateral R foot (L)0.8cm x (W)0.8cm. NO erythema,induration or fluctuance periwound. R foot is edematous. Tx.Plan: Cleanse Sacral wound with Dakin's Kristel 0.25%. Apply Dakin's moistened kerlix to wound. Apply Triad periwound. Cover with Optifoam drsg. Change Daily and prn. Cleanse L trochanteric Wound with Dakin's Kristel 0.25%. Loosely pack with Dakin's moistened Kerlix, Apply Moisture Barrier Periwound. Cover with Optifoam drsg Daily and prn. Cleanse R Ischial wound with Dakin's Kristel 0.25%. Apply Dakin's moistened gauze to wound. Apply Moisture Barrier Paste periwound. Cover with Optifoam drsg Daily and prn. Cleanse wounds Lateral R lower extremity, R Heel and Lateral R foot with Dakin's Kristel 0.25%. Place Dakin's Moistened gauze to wounds. Apply Triad Paste along edges of wound. Cover wounds with ABD Pads. Wrap with Kerlix from Base of toes. Cleanse wound R heel with Dakin's Kristel 0.25%. Apply Dakin's moistened Gauze to wound. Apply Triad Periwound. Cover with ABD PAd and wrap with Kerlix. Swab dry Eschar dorsal and Lateral aspect of R foot .Cover with Abd Pads and Wrap with Kerlix Daily and prn. Wash GT site with Soap and water. Apply Triad Paste Daily and prn(Leave Open to Air) Reposition at least every 2hours or as tolerated. Place Pillow Between Knees. Off-Load Heels with Pillow. APM/TERRIE Mattress overlay. Loose non-viable tissue of R Heel removed by . Scattered slough at base of wound. Wound is malodorous. Cleansed with Dakin's 0.25% kristel. Dakin's moistened gauze applied . Triad Paste applied along borders. Covered with ABD pad and wrapped with Kerlix. Wound Lateral L Tibia re-evaluated . Base of wound is moist,granular, small area of bone and tendon exposure. noted. Small amt sanguineous exudate noted. No odor noted . Edges are adherent to base of wound. No evidence of additional skin breakdown periwound . New Tx orders received from for Promogran. Tx amended and applied as per Md's orders. Tx.Plan:Cleanse Lateral L Tibia with Saline. Apply Promogran to wound. Cover with ABD Pad. Wrap with Kerlix. Change every [id number]-[id number]. (2) Anemia Assessment & Plan: trend h/h prbc prn (3) UTI (urinary tract infection) (4) Pleural effusion, left Assessment & Plan: Ultrasound used to localize optimal puncture site. Sterile prepping and draping left chest. Local anesthesia with 1% lidocaine. Under real-time ultrasound guidance, puncture pleural space using thoracentesis needle. Stylet removed. Catheter placed to vacuum bottle suction. Total 1700 milliliters of fluid aspirated. Patient tolerated procedure well, without immediate complication. Findings: Followup sonography demonstrates small amount of residual pleural fluid. Impression: Successful ultrasound-guided thoracentesis, yielding 1700 milliliters of fluid Lungs: Hazy left lung attenuation could be due to consolidation, pulmonary edema; correlate with presentation. Retrocardiac atelectasis without or with consolidation. Pleural space: Small-moderate left pleural effusion with passive atelectasis. No pneumothorax. Heart: Unremarkable. No cardiomegaly. Mediastinum: Unremarkable. Bones/joints: No acute abnormality Tubes, lines and devices: Tracheostomy. Right upper extremity PICC tip in the mid SVC. IMPRESSION: 1. Tracheostomy. 2. Right upper extremity PICC tip in the mid SVC. 3. Small-moderate left pleural effusion with passive atelectasis. 4. Hazy left lung attenuation could be due to consolidation, pulmonary edema; correlate with presentation. 5. Retrocardiac atelectasis without or with consolidation. 6. Recommend CT chest with IV contrast to further characterize these findings. (5) Malfunction of gastrostomy tube Assessment & Plan: DAILY ESTIMATED NEEDS: Needs based on Wounds, pulmonary/ 74.5kg 25-30 kcals/kg 2054-6825 total kcals 1.5-2 g protein/kg 111-149 g total protein 25-30 mL/kg 3144-9467 total fluid mLs NUTRITION DIAGNOSIS: * Swallowing difficulty R/T dysphagia, h/o craniotomy, respiratory failure as evidenced by pt on T-collar, GJ tube dependent. * Increased kcal/prot/micronutrients needs R/T wound healing as evidenced by pt admitted w/ multiple advanced wounds including full thickness wound x 7 and unstageable wounds x 2, refer to WC eval. CURRENT TF:Jevity 1.2 @ 60ml/hr x 24 hrs-> now Glucerna 1.2 ENTERAL NUTRITION RECOMMENDATIONS: Glucerna 1.2 @ 65ml/hr x 24 hrs + Prosource 1pkt TID to provide 1560ml, 1872kcal, 94g+ 33g prot, 1259ml free water * Increase goal rate to 65ml/hr x 24 hrs to better meet est needs * Add Prosource 1pkt TID to meet increased protein needs * HOB over 30 degrees/ water flush 150ml q 6hrs without IVF ADDITIONAL RECOMMENDATIONS: * Calibrated bedscale wt * Wound Care: Con't Vit C 500mg BID, ZnSO4 220mg QD x 10 days add Stevie BID * Monitor BGs, need for carb controlled TF -> now on Glucerna 1.2 * Monitor lytes, replete as needed (6) Acute respiratory failure with hypoxia (7) HCAP (healthcare-associated pneumonia) Deny Westfall Aug 16, 2020 12:04
--- NOTE | 2020-08-16 14:34 | NUR ---
NURSE NOTES:WOUND CARE NOTES:Pt was discharged 08/15/20 and readmitted same day. 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 Small amt exudate that is of Sanguineous mixed with Formula noted from GT. Mild excoriation noted to Peristomal GT site. Full Thickness Sacral Pressure Injury (L)10.5cm x (W)8.3cm x (D)1.5cm, Undermining clockwise 9-2 by 1.3cm @10'oclock. Base of wound is 90% granular 10% necrotic. NO odor noted. Small amt serosanguineous exudate noted.Periwound is erythematous and indurated. No changes in skin temp noted. Full Thickness Pressure Injury Outer L Lower Quadrant of Buttocks.(L)5.5cm x (W)7cm x (D)1.5cm, Undermining clockwise 9-3 by 4.5cm @12o'clock, Tunneled area within base of wound by 5.5cm @ 1-2o'clock. Base of wound is 85% % moist and pink ,15% necrotic at base at undermined area of wound. Bone exposure noted. Small amt serosanguineous exudate noted. Periwound is erythematous and indurated. No odor noted. Full thickness Pressure Injury L Ischium(L)2cm x (W)0.9cm x (D)0.3cm. Base of wound is moist, and pink. Edges are adherent to base of wound. Periwound is maroon and indurated. NO changes in skin temp periwound. NO odor noted. Non-Blanchable erythema without induration noted to R Hip /R trochanteric.. Full Thickness Pressure Injury lateral L Tibia(L)21.5cm x (W)3.5cm x (D)0.2cm. Base of wound is 95% granular,5% necrosis along borders. Edges are adherent to base of wound . Moderate amt sanguineous exudate noted. No odor noted.Periwound skin colour is darker than is normal tone but without erythema or induration. Full thickness Pressure Injury L Heel extending into Plantar aspect of heel(L)8.7cm x (W)6.5cm x(D)0.6cm.Base of wound is 60% beefy granulation,40% necrotic. Bone is palpable. (+) Epibole at proximal borders of wound in close proximity with achilles. Small amt haemopurulent exudate noted. Wound is malodorous. Periwound is dusky and indurated. Full Thickness Pressure Injury Lateral L Foot (L)1.9cm x (W)3.4cm x (D)0.3cm, undermining clockwise 9-3 by 0.2cm @9o'clock. Base of wound is 10% necrotic 90% antonio. Wound is malodorous. Edges are macerate with scattered areas of necrosis along edges. Small amt haemopurulent exudate noted.Periwound is fluctuant and dusky. Full Thickness Pressure Injury distal/lateral L foot(L)1.3cm x (W)3.7cm x (D)0.2cm. Base of wound is 80% soft necrosis,20% moist and pink. edges are macerated. Wound is malodorous. Small amt brown exudate noted . Periwound is dusky and fluctuant. Unstageable Pressure injury dorsal L foot (L)1cm x (W)0.9cm. Base of wound is 100% necrotic. Edges are erythematous and macerated. Periwound without erythema,induration or fluctuance. Full thickness Pressure Injury R Heel including plantar aspect of heel (L)8.7cm x (W)6.5cm x (D)0.6cm. Base of wound is 60% beefy granulation,40% necrotic. Bone exposure at base of wound. Moderate amt haemopurulent exudate. Wound is malodorous. Proximal edges of wound within close proximity with achilles is rolled. Edges are otherwise macerated. Periwound is fluctuant and dusky. Full Thickness Pressure Injury distal/lateral R foot (L)0.5cm x (W)0.6cm. Base of wound is 100% fibrinous slough. Erythematous borders. Periwound without induration or fluctuance. Small amt serous exudate noted. Tx.Plan: Wash GT site with Soap and Water. Pat dry. Apply Moisture Barrier Paste around Gt Daily. Leave open to Air. Cleanse Sacral wound, L buttocks, and L Ischia wounds with Dakin's 0.25% Kristel. Loosely pack wounds with Dakin's moistened Kerlix.Apply Triad Paste periwound. Cover with Optifoam drsgs Daily and prn. Cleanse wound Lateral L Tibia with Dakin's o.25% Kristel. Rinse with Saline. Apply Promogran moistened with Saline. Apply Moisture Barrier Paste along borders. Cover with ABD Pads. Wrap with Kerlix every Mon-Wed-Fri (NOTE: Wound Nurse to Aplpy Promogran) Cleanse wounds L Foot with Dakin's 0.25% Kristel. Apply Dakin's moistened Gauze to each wound. Apply Triad Paste along Borders of each wound. Cover with ABD Pads and wrap with Kerlix Daily and prn. Cleanse R Heel wound with Dakin's 0.25% Kristel. Apply Dakin's Moistened Gauze to wound. Apply Triad Paste Periwound. Cover with ABD Pad. Wrap with Kerlix Daily and prn. Reposition at least every 2hours or as tolerated. Place Pillow Between Knees. Off-load heels with 2 Pillows. APM/TERRIE Mattress overlay.
--- NOTE | 2020-08-16 15:55 | Cardiology Progress Note ---
Subjective DATE OF SERVICE: Aug 16, 2020 s/p 1700cc thorocentesis. No new bleeding, since back on anticoagulation now following GI clearance. BP parameters stabilized. Monitor: AFib/flutter persisting with increased ventricular rates now. Objective Last 24 Hour Vital Signs Date Time Temp Pulse Resp B/P (MAP) Pulse Ox O2 Delivery O2 Flow Rate FiO2 08/16/20 12:00 98.4 115 16 96/62 (73) 99 08/16/20 12:00 109 08/16/20 09:00 90 99/59 08/16/20 09:00 Trach Collar 12.0 08/16/20 08:00 99.7 90 16 99/59 (72) 99 08/16/20 08:00 91 08/16/20 04:00 101 08/16/20 04:00 99.6 114 17 100/56 (71) 93 08/16/20 02:03 99.9 08/16/20 01:00 98 T-Piece 12.0 40 08/16/20 00:00 91 08/16/20 00:00 99.0 98 17 95/55 (68) 98 08/15/20 22:08 125 99/66 08/15/20 21:00 Trach Collar 12.0 08/15/20 20:00 99.0 125 22 99/69 (79) 97 08/15/20 19:07 93 T-Piece 10.0 35 08/15/20 16:00 98.6 67 21 127/81 (96) 94 08/15/20 16:00 97 ROS: unchanged from 07/14/20 HEENT: Thick Trach secretions RHYTHM: NSR, ST, PACs, Afib LUNGS: bilateral rhonchi CARDIAC: normal S1 and S2, rapid rate, arrhythmia ABDOMEN: normal bowel sounds, soft, G-Tube intact EXTREMITIES: normal range of motion, non-tender, trace edema, other - withdrawn Assessment/Plan Assessment/Plan Healthcare associated PNA Paroxysmal atrial fibrillation/flutter Paroxysmal atrial ectopy Hx ICB with craniotomy and CORPORATE LAWYER shunt Ac/chronic encephalopathy Seizure disorder Troponin leak; no signs of acute IN Trach status Dysphagia with GJ-Tube 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 Dyslipidemia on high dose statin - now dose adjusted Dehydration/hypernatremia Severe protein-calorie malnutrition Multiple wounds Anemia - s/p tx Pleural effusion - s/p left thorocentesis Titrate beta blockade dose as tolerated. Abx Resp support Cardiac monitoring Statin dose adjusted Amiodarone at increased dose again to maintain sinus rhythm. Free water replacement as needed; off IVF for now. Continue anticoagulation with caution due to bleeding risk Awaiting SNF dispo Dylan Mak MD Aug 16, 2020 15:55
[2020-08-16 16:00] VITALS: BP 88/56
--- NOTE | 2020-08-16 16:30 | NUR ---
NURSE NOTES: Patient BP is low 88/56, Dr. Devlin aware, No new order at this time.
[2020-08-16] MEDS: Amiodarone 200mg tab GT SCH (17:32)
--- NOTE | 2020-08-16 19:15 | NUR ---
NURSE HAND-OFF REPORT: Important Events on Shift:Wound care done Patient Status: Full code Diet: tube feeding Pending Orders: N/A Pending Results/Labs:N/A Pending MD notification:N/A Latest Vital Signs: Temperature 99.0 , Pulse 115 , B/P 88 /56 , Respiratory Rate 15 , O2 SAT 95 , Trach Collar, O2 Flow Rate 12.0 . Vital Sign Comment: Stable EKG Rhythm: Sinus Tachycardia Rhythm change?: N MD Notified?: N -Dr. Aubree VALDEZ Response: Message left await call Latest Ramirez Fall Score: 70 Fall Risk: High Risk Safety Measures: Call light Within Reach, Bed Alarm Zone 1, Side Rails Side Rails x3, Bed position Low and Locked. Fall Precautions: Patient Fall Education Report given to Gho/RN.
--- NOTE | 2020-08-16 19:30 | NUR ---
NURSE NOTES: Receive a report from SELIN Alston. Round is made. Eyes are closed but opening eyes by shaking. No acute distress noted. Spo2 89-91% with grunting sound. Done suction via trach. On O2 6L, Fio2 40%. On G-tube feeding as ordered. Kept head elevated. Yellow with clots urine is patent via valles catheter. Pressure injuries dressing kept intact. On TERRIE mattress. PICC on KIZZY one lumen. Call light within reach. Will continue to monitor.
--- NOTE | 2020-08-16 19:38 | General Progress Note ---
Subjective Allergies: Coded Allergies: No Known Allergies (Unverified , 11/02/19) Subjective Above noted non communicative tolerating TF Objective Last 24 Hour Vital Signs Date Time Temp Pulse Resp B/P (MAP) Pulse Ox O2 Delivery O2 Flow Rate FiO2 08/16/20 19:30 95 T-Piece 10.0 35 08/16/20 16:00 115 08/16/20 16:00 99.0 129 15 88/56 (67) 95 08/16/20 13:00 94 T-Piece 12.0 40 08/16/20 12:00 98.4 115 16 96/62 (73) 99 08/16/20 12:00 109 08/16/20 09:00 90 99/59 08/16/20 09:00 Trach Collar 12.0 08/16/20 08:00 99.7 90 16 99/59 (72) 99 08/16/20 08:00 91 08/16/20 07:05 96 T-Piece 12.0 40 08/16/20 04:00 101 08/16/20 04:00 99.6 114 17 100/56 (71) 93 08/16/20 02:03 99.9 08/16/20 01:00 98 T-Piece 12.0 40 08/16/20 00:00 91 08/16/20 00:00 99.0 98 17 95/55 (68) 98 08/15/20 22:08 125 99/66 08/15/20 21:00 Trach Collar 12.0 08/15/20 20:00 99.0 125 22 99/69 (79) 97 Intake and Output 08/15/20 08/16/20 19:00 07:00 Intake Total 220 ml 490 ml Output Total 650 ml 300 ml Balance -430 ml 190 ml Intake Free Water 100 ml 50 ml Tube Feeding 120 ml 440 ml Output Urine Total 650 ml 300 ml Height (Feet): 5 Height (Inches): 4.00 Weight (Pounds): 171 Objective Eldely WM NCAT (+) trach , T tube Coarse BS RRR abd soft (+) GT ext no edema Assessment/Plan Status: stable, progressing Assessment/Plan: Assessment - UGIB - resolved - Anemia, s/p transfusion - h/o PUD - resp failure, s/p trach - dysphagia, s/p PEG - atrial fibrillation - h/o DVT - hypernatremia - loose BM - improved Recommendations - anticoagulation - H2B BID indefinitely - vital AF - free water - follow H&H - monitor BM Akiko Rai MD Aug 16, 2020 19:38
[2020-08-16 20:00] VITALS: BP 107/56
[2020-08-16] MEDS: Dyna-Hex 2% Top Sol 2oz TOPIC SCH (21:24)
[2020-08-16] MEDS: Atorvastatin 20mg tab ORAL SCH (21:25)
[2020-08-17] VITALS: BP 95/58
[2020-08-17] MEDS: Acetaminophen 650mg/20.3ml GT PRN (00:52)
[2020-08-17 04:00] VITALS: BP 85/50
--- NOTE | 2020-08-17 06:37 | NUR ---
NURSE HAND-OFF REPORT: Important Events on Shift: Elevated temperature-given Tylenol x1. Spo2 remains above 93% with O2 10L, Fio2 35% via trach. Patient Status: [stable] Diet: [G-tube feeding] Pending Orders: [] Pending Results/Labs:[] Pending MD notification:[] Latest Vital Signs: Temperature 99.4 , Pulse 109 , B/P 85 /50 , Respiratory Rate 20 , O2 SAT 93 , Trach Collar, O2 Flow Rate 10.0 . Vital Sign Comment: [] EKG Rhythm: Sinus Tachycardia Rhythm change?: N Notified?: N -Dr. Aubree VALDEZ Response: Message left await call Latest Ramirez Fall Score: 70 Fall Risk: High Risk Safety Measures: Call light Within Reach, Bed Alarm Zone 1, Side Rails Side Rails x3, Bed position Low and Locked. Fall Precautions: Patient Fall Education
--- NOTE | 2020-08-17 07:15 | NUR ---
NURSE NOTES: Given report from SELIN Alsotn. Round is made.
--- NOTE | 2020-08-17 07:16 | NUR ---
NURSE NOTES: Received report from Gho/RN, Observed patient asleep, Lying semi-johnston's, resting comfortably. On Trach collar 10L, FiO2 35%, no acute distress/SOB noted. Right upper Arm PICC line patent and intact. Vital A.F running at 60cc/hr. On air mattress for wound management. [place] draining well to gravity. Bed in low position and locked, Call light within reach. Will continue plan of care.
[2020-08-17 08:00] VITALS: BP 94/51
[2020-08-17] MEDS: Metoprolol Tartrate 100mg tab ORAL SCH ×2 (08:37→21:00)
[2020-08-17] MEDS: Zinc Sulfate 220mg GT SCH (08:37)
[2020-08-17] MEDS: Dakin's 0.25% (Half Strength) 16oz TOPIC SCH (08:38)
--- NOTE | 2020-08-17 08:50 | Pulmonology Progress Note ---
Subjective ROS Limited/Unobtainable: Yes Allergies: Coded Allergies: No Known Allergies (Unverified , 11/02/19) All Systems: reviewed and negative except above Subjective CARE NOTED nonverbal on oxygen at 35% trach collar patient discharged and returned due to low oxygen appears better today Objective Last 24 Hour Vital Signs Date Time Temp Pulse Resp B/P (MAP) Pulse Ox O2 Delivery O2 Flow Rate FiO2 08/17/20 08:37 104 94/51 08/17/20 08:00 98.2 104 24 94/51 (65) 95 08/17/20 07:05 97 T-Piece 10.0 35 08/17/20 04:00 99.4 109 20 85/50 (62) 93 08/17/20 04:00 109 08/17/20 02:00 98.6 08/17/20 02:00 98.6 08/17/20 00:29 96 T-Piece 10.0 35 08/17/20 00:00 101.4 107 20 95/58 (70) 92 08/17/20 00:00 107 08/16/20 21:25 119 107/56 08/16/20 21:00 Trach Collar 6.0 08/16/20 20:00 99.1 119 20 107/56 (73) 98 08/16/20 20:00 116 08/16/20 19:30 95 T-Piece 10.0 35 08/16/20 16:00 115 08/16/20 16:00 99.0 129 15 88/56 (67) 95 08/16/20 13:00 94 T-Piece 12.0 40 08/16/20 12:00 98.4 115 16 96/62 (73) 99 08/16/20 12:00 109 08/16/20 09:00 90 99/59 08/16/20 09:00 Trach Collar 12.0 Intake and Output 08/16/20 08/17/20 19:00 07:00 Intake Total 840 ml 560 ml Output Total 450 ml 350 ml Balance 390 ml 210 ml Intake Free Water 300 ml 500 ml Tube Feeding 540 ml 60 ml Output Urine Total 450 ml 350 ml Objective WDWN NAD awake chronically ill moderate breath sounds bilaterally and now symmetric [id number] NABS nontender GT no CCE nonfocal weak wounds noted Current Medications Medications (Trade) Dose Ordered Sig/Clive Route PRN Reason Start Time Stop Time Status Last Admin Dose Admin Acetaminophen (Tylenol) 650 mg Q4H PRN GT Temp >100.5 07/18/20 09:30 08/17/20 09:29 08/17/20 00:52 Acetaminophen (Tylenol) 650 mg Q4H PRN RECTAL Temp >100.5 08/12/20 10:00 09/11/20 09:59 Amiodarone HCl (Cordarone) 400 mg DAILY@1800 GT 08/10/20 18:00 10/28/20 17:59 08/16/20 17:32 Atorvastatin Calcium (Lipitor) 10 mg BEDTIME ORAL 08/05/20 21:00 10/22/20 20:59 08/16/20 21:25 Chlorhexidine Gluconate (Jennifer-Hex 2%) 1 applic DAILY@2000 TOPIC 07/17/20 20:00 10/15/20 19:59 08/16/20 21:24 Famotidine (Pepcid) 20 mg Q12HR GT 07/16/20 21:00 10/14/20 20:59 08/17/20 08:37 Finasteride (Proscar) 5 mg DAILY ORAL 07/15/20 09:00 10/13/20 08:59 08/17/20 08:37 Hydralazine HCl (Apresoline) 25 mg Q6H PRN GT SBP above 150 07/24/20 23:30 10/22/20 23:29 07/26/20 05:22 Levetiracetam (Keppra) 1,000 mg Q12HR ORAL 08/12/20 21:00 09/11/20 20:59 08/17/20 08:37 Metoprolol Tartrate (Lopressor) 100 mg Q12HR ORAL 08/13/20 09:00 11/11/20 08:59 08/16/20 21:25 Sodium Hypochlorite (Dakin's Half Strength) 1 applic DAILY TOPIC 08/15/20 16:00 09/14/20 15:59 08/17/20 08:38 Zinc Sulfate (Zinc Sulfate) 220 mg DAILY GT 07/27/20 09:00 10/25/20 08:59 08/17/20 08:37 Assessment/Plan Assessment/Plan Impression: Healthcare-associated pneumonia Acute respiratory failure with hypoxia Tracheostomy status Pleural effusion, left-recurrent s/p tap Decubitus ulcers Urinary tract infection Anemia S/p previous Craniotomy, RCA occlusion, TECHNICAL SUPPORT INTERN shunt Seizure history GERD, dysphagia s/p GJ tube h/o Hypertension h/o Atrial fibrillation Previous DVT and Pulmonary Embolism, hypernatremia Plan monitor for change events reviewed monitor HH for change J tube feeds monitor oxygen needs nebs as needed Wound care 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
[2020-08-17 12:00] VITALS: BP 98/48
--- NOTE | 2020-08-17 12:06 | Surgery Progress Note ---
Surgery Progress Note Subjective Additional Comments d/c but returned because desaturation on collar 35% o2 now Objective Last 24 Hour Vital Signs Date Time Temp Pulse Resp B/P (MAP) Pulse Ox O2 Delivery O2 Flow Rate FiO2 08/17/20 09:00 Trach Collar 6.0 08/17/20 08:37 104 94/51 08/17/20 08:00 98.2 104 24 94/51 (65) 95 08/17/20 08:00 105 08/17/20 07:05 97 T-Piece 10.0 35 08/17/20 04:00 99.4 109 20 85/50 (62) 93 08/17/20 04:00 109 08/17/20 02:00 98.6 08/17/20 02:00 98.6 08/17/20 00:29 96 T-Piece 10.0 35 08/17/20 00:00 101.4 107 20 95/58 (70) 92 08/17/20 00:00 107 08/16/20 21:25 119 107/56 08/16/20 21:00 Trach Collar 6.0 08/16/20 20:00 99.1 119 20 107/56 (73) 98 08/16/20 20:00 116 08/16/20 19:30 95 T-Piece 10.0 35 08/16/20 16:00 115 08/16/20 16:00 99.0 129 15 88/56 (67) 95 08/16/20 13:00 94 T-Piece 12.0 40 I&O Intake and Output 08/16/20 08/17/20 18:59 06:59 Intake Total 880 ml 560 ml Output Total 450 ml 350 ml Balance 430 ml 210 ml Intake Free Water 300 ml 500 ml Tube Feeding 580 ml 60 ml Output Urine Total 450 ml 350 ml Dressing: saturated Cardiovascular: RSR Respiratory: decreased breath sounds Abdomen: soft, non-tender, present bowel sounds Extremities: other Plan Problems: (1) Decubitus skin ulcer Assessment & Plan: Pt was discharged 08/15/20 and readmitted same day. 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 Small amt exudate that is of Sanguineous mixed with Formula noted from GT. Mild excoriation noted to Peristomal GT site. Full Thickness Sacral Pressure Injury (L)10.5cm x (W)8.3cm x (D)1.5cm, Undermining clockwise 9-2 by 1.3cm @10'oclock. Base of wound is 90% granular 10% necrotic. NO odor noted. Small amt serosanguineous exudate noted.Periwound is erythematous and indurated. No changes in skin temp noted. Full Thickness Pressure Injury Outer L Lower Quadrant of Buttocks.(L)5.5cm x (W)7cm x (D)1.5cm, Undermining clockwise 9-3 by 4.5cm @12o'clock, Tunneled area within base of wound by 5.5cm @ 1-2o'clock. Base of wound is 85% % moist and pink ,15% necrotic at base at undermined area of wound. Bone exposure noted. Small amt serosanguineous exudate noted. Periwound is erythematous and indurated. No odor noted. Full thickness Pressure Injury L Ischium(L)2cm x (W)0.9cm x (D)0.3cm. Base of wound is moist, and pink. Edges are adherent to base of wound. Periwound is maroon and indurated. NO changes in skin temp periwound. NO odor noted. Non-Blanchable erythema without induration noted to R Hip /R trochanteric.. Full Thickness Pressure Injury lateral L Tibia(L)21.5cm x (W)3.5cm x (D)0.2cm. Base of wound is 95% granular,5% necrosis along borders. Edges are adherent to base of wound . Moderate amt sanguineous exudate noted. No odor noted.Periwound skin colour is darker than is normal tone but without erythema or induration. Full thickness Pressure Injury L Heel extending into Plantar aspect of heel(L)8.7cm x (W)6.5cm x(D)0.6cm.Base of wound is 60% beefy granulation,40% necrotic. Bone is palpable. (+) Epibole at proximal borders of wound in close proximity with achilles. Small amt haemopurulent exudate noted. Wound is mal odorous. Periwound is dusky and indurated. Full Thickness Pressure Injury Lateral L Foot (L)1.9cm x (W)3.4cm x (D)0.3cm, undermining clockwise 9-3 by 0.2cm @9o'clock. Base of wound is 10% necrotic 90% antonio. Wound is malodorous. Edges are macerate with scattered areas of necrosis along edges. Small amt haemopurulent exudate noted.Periwound is fluctuant and dusky. Full Thickness Pressure Injury distal/lateral L foot(L)1.3cm x (W)3.7cm x (D)0.2cm. Base of wound is 80% soft necrosis,20% moist and pink. edges are macerated. Wound is malodorous. Small amt brown exudate noted . Periwound is dusky and fluctuant. Unstageable Pressure injury dorsal L foot (L)1cm x (W)0.9cm. Base of wound is 100% necrotic. Edges are erythematous and macerated. Periwound without erythe ma,induration or fluctuance. Full thickness Pressure Injury R Heel including plantar aspect of heel (L)8.7cm x (W)6.5cm x (D)0.6cm. Base of wound is 60% beefy granulation,40% necrotic. Bone exposure at base of wound. Moderate amt haemopurulent exudate. Wound is malodorous. Proximal edges of wound within close proximity with achilles is rolled. Edges are otherwise macerated. Periwound is fluctuant and dusky. Full Thickness Pressure Injury distal/lateral R foot (L)0.5cm x (W)0.6cm. Base of wound is 100% fibrinous slough. Erythematous borders. Periwound without induration or fluctuance. Small amt serous exudate noted. Tx.Plan: Wash GT site with Soap and Water. Pat dry. Apply Moisture Barrier Paste around Gt Daily. Leave open to Air. Cleanse Sacral wound, L buttocks, and L Ischia wounds with Dakin's 0.25% Kristel. Loosely pack wounds with Dakin's moistened Kerlix.Apply Triad Paste periwound. Cover with Optifoam drsgs Daily and prn. Cleanse wound Lateral L Tibia with Dakin's o.25% Kristel. Rinse with Saline. Apply Promogran moistened with Saline. Apply Moisture Barrier Paste along borders. Cover with ABD Pads. Wrap with Kerlix every Mon-Wed-Fri (NOTE: Wound Nurse to Fatou Buckley) Cleanse wounds L Foot with Dakin's 0.25% Kristel. Apply Dakin's moistened Gauze to each wound. Apply Triad Paste along Borders of each wound. Cover with ABD Pads and wrap with Kerlix Daily and prn. Cleanse R Heel wound with Dakin's 0.25% Kristel. Apply Dakin's Moistened Gauze to wound. Apply Triad Paste Periwound. Cover with ABD Pad. Wrap with Kerlix Daily and prn. Reposition at least every 2hours or as tolerated. Place Pillow Between Knees. Off-load heels with 2 Pillows. APM/TERRIE Mattress overlay. (2) Anemia Assessment & Plan: trend h/h prbc prn (3) UTI (urinary tract infection) (4) Pleural effusion, left Assessment & Plan: Ultrasound used to localize optimal puncture site. Sterile prepping and draping left chest. Local anesthesia with 1% lidocaine. Under real-time ultrasound guidance, puncture pleural space using thoracentesis needle. Stylet removed. Catheter placed to vacuum bottle suction. Total 1700 milliliters of fluid aspirated. Patient tolerated procedure well, without immediate complication. Findings: Followup sonography demonstrates small amount of residual pleural fluid. Impression: Successful ultrasound-guided thoracentesis, yielding 1700 milliliters of fluid Lungs: Hazy left lung attenuation could be due to consolidation, pulmonary edema; correlate with presentation. Retrocardiac atelectasis without or with consolidation. Pleural space: Small-moderate left pleural effusion with passive atelectasis. No pneumothorax. Heart: Unremarkable. No cardiomegaly. Mediastinum: Unremarkable. Bones/joints: No acute abnormality Tubes, lines and devices: Tracheostomy. Right upper extremity PICC tip in the mid SVC. IMPRESSION: 1. Tracheostomy. 2. Right upper extremity PICC tip in the mid SVC. 3. Small-moderate left pleural effusion with passive atelectasis. 4. Hazy left lung attenuation could be due to consolidation, pulmonary edema; correlate with presentation. 5. Retrocardiac atelectasis without or with consolidation. 6. Recommend CT chest with IV contrast to further characterize these findings. (5) Malfunction of gastrostomy tube Assessment & Plan: DAILY ESTIMATED NEEDS: Needs based on Wounds, pulmonary/ 74.5kg 25-30 kcals/kg 1711-8943 total kcals 1.5-2 g protein/kg 111-149 g total protein 25-30 mL/kg 9383-1849 total fluid mLs NUTRITION DIAGNOSIS: * Swallowing difficulty R/T dysphagia, h/o craniotomy, respiratory failure as evidenced by pt on T-collar, GJ tube dependent. * Increased kcal/prot/micronutrients needs R/T wound healing as evidenced by pt admitted w/ multiple advanced wounds including full thickness wound x 7 and unstageable wounds x 2, refer to WC eval. CURRENT TF:Jevity 1.2 @ 60ml/hr x 24 hrs-> now Glucerna 1.2 ENTERAL NUTRITION RECOMMENDATIONS: Glucerna 1.2 @ 65ml/hr x 24 hrs + Prosource 1pkt TID to provide 1560ml, 1872kcal, 94g+ 33g prot, 1259ml free water * Increase goal rate to 65ml/hr x 24 hrs to better meet est needs * Add Prosource 1pkt TID to meet increased protein needs * HOB over 30 degrees/ water flush 150ml q 6hrs without IVF ADDITIONAL RECOMMENDATIONS: * Calibrated bedscale wt * Wound Care: Con't Vit C 500mg BID, ZnSO4 220mg QD x 10 days add Stevie BID * Monitor BGs, need for carb controlled TF -> now on Glucerna 1.2 * Monitor lytes, replete as needed (6) Acute respiratory failure with hypoxia (7) HCAP (healthcare-associated pneumonia) Deny Westfall Aug 17, 2020 12:06
--- NOTE | 2020-08-17 12:10 | NUR ---
NURSE NOTES: Patient had BM, cleaned and changed to new gown. wound care done
--- NOTE | 2020-08-17 15:05 | General Progress Note ---
Subjective Allergies: Coded Allergies: No Known Allergies (Unverified , 11/02/19) Subjective discharged and re admitted appears comfortable wounds noted Objective Last 24 Hour Vital Signs Date Time Temp Pulse Resp B/P (MAP) Pulse Ox O2 Delivery O2 Flow Rate FiO2 08/17/20 12:00 98.7 138 26 98/48 (65) 95 08/17/20 12:00 116 08/17/20 09:00 Trach Collar 6.0 08/17/20 08:37 104 94/51 08/17/20 08:00 98.2 104 24 94/51 (65) 95 08/17/20 08:00 105 08/17/20 07:05 97 T-Piece 10.0 35 08/17/20 04:00 99.4 109 20 85/50 (62) 93 08/17/20 04:00 109 08/17/20 02:00 98.6 08/17/20 02:00 98.6 08/17/20 00:29 96 T-Piece 10.0 35 08/17/20 00:00 101.4 107 20 95/58 (70) 92 08/17/20 00:00 107 08/16/20 21:25 119 107/56 08/16/20 21:00 Trach Collar 6.0 08/16/20 20:00 99.1 119 20 107/56 (73) 98 08/16/20 20:00 116 08/16/20 19:30 95 T-Piece 10.0 35 08/16/20 16:00 115 08/16/20 16:00 99.0 129 15 88/56 (67) 95 Intake and Output 08/16/20 08/17/20 19:00 07:00 Intake Total 840 ml 560 ml Output Total 450 ml 350 ml Balance 390 ml 210 ml Intake Free Water 300 ml 500 ml Tube Feeding 540 ml 60 ml Output Urine Total 450 ml 350 ml Height (Feet): 5 Height (Inches): 4.00 Weight (Pounds): 171 Objective Eldely WM NCAT (+) trach , T tube Coarse BS RRR abd soft (+) GT ext no edema Assessment/Plan Status: stable, progressing Assessment/Plan: Assessment - UGIB - resolved - Anemia, s/p transfusion - h/o PUD - resp failure, s/p trach - dysphagia, s/p PEG - atrial fibrillation - h/o DVT - hypernatremia - loose BM - decubitus ulcers Recommendations - anticoagulation - H2B BID indefinitely - vital AF - increase rate - protein supplements - increase to TID - Add MVI - Add Vitamin C - D/c Zinc - has had over 20 days - free water - follow H&H - monitor BM Akiko Rai MD Aug 17, 2020 15:05
[2020-08-17 16:00] VITALS: BP 108/56
--- NOTE | 2020-08-17 16:36 | General Progress Note ---
Subjective ROS Limited/Unobtainable: Yes Constitutional: Reports: malaise, weakness HEENT: Reports: no symptoms Cardiovascular: Reports: no symptoms Respiratory: Reports: cough, shortness of breath, sputum Gastrointestinal/Abdominal: Reports: difficulty swallowing Genitourinary: Reports: no symptoms Neurologic/Psychiatric: Reports: pre-existing deficit Endocrine: Reports: no symptoms Hematologic/Lymphatic: Reports: anemia Allergies: Coded Allergies: No Known Allergies (Unverified , 11/02/19) All Systems: reviewed and negative except above Subjective stable. no events. awake and alert. confused. on trach collar. increased HR. on tube feeds. no distress, Objective Last 24 Hour Vital Signs Date Time Temp Pulse Resp B/P (MAP) Pulse Ox O2 Delivery O2 Flow Rate FiO2 08/17/20 12:00 98.7 138 26 98/48 (65) 95 08/17/20 12:00 116 08/17/20 09:00 Trach Collar 6.0 08/17/20 08:37 104 94/51 08/17/20 08:00 98.2 104 24 94/51 (65) 95 08/17/20 08:00 105 08/17/20 07:05 97 T-Piece 10.0 35 08/17/20 04:00 99.4 109 20 85/50 (62) 93 08/17/20 04:00 109 08/17/20 02:00 98.6 08/17/20 02:00 98.6 08/17/20 00:29 96 T-Piece 10.0 35 08/17/20 00:00 101.4 107 20 95/58 (70) 92 08/17/20 00:00 107 08/16/20 21:25 119 107/56 08/16/20 21:00 Trach Collar 6.0 08/16/20 20:00 99.1 119 20 107/56 (73) 98 08/16/20 20:00 116 08/16/20 19:30 95 T-Piece 10.0 35 Intake and Output 08/16/20 08/17/20 19:00 07:00 Intake Total 840 ml 620 ml Output Total 450 ml 350 ml Balance 390 ml 270 ml Intake Free Water 300 ml 500 ml Tube Feeding 540 ml 120 ml Output Urine Total 450 ml 350 ml Height (Feet): 5 Height (Inches): 4.00 Weight (Pounds): 171 Objective General Appearance: WD/WN, confused EENT: normal ENT inspection Neck: normal alignment Cardiovascular: normal rate, regular rhythm Respiratory/Chest: rhonchi - bilaterally Abdomen: normal bowel sounds, non tender, soft, no organomegaly Edema: no edema noted Leg (L), no edema noted Leg (R) Neurologic: disoriented, aphasia Skin: normal pigmentation Assessment/Plan Problem List: (1) Anemia ICD Codes: D64.9 - Anemia, unspecified SNOMED: 079953532, 503021840 Qualifiers: Qualified Codes: D50.0 - Iron deficiency anemia secondary to blood loss (chronic) (2) Pleural effusion, left ICD Codes: J90 - Pleural effusion, not elsewhere classified SNOMED: 47333962, 251131016 (3) Malfunction of gastrostomy tube ICD Codes: K94.23 - Gastrostomy malfunction SNOMED: 139029031 (4) Acute respiratory failure with hypoxia ICD Codes: J96.01 - Acute respiratory failure with hypoxia SNOMED: 19774324, 512185846 (5) HCAP (healthcare-associated pneumonia) ICD Codes: J18.9 - Pneumonia, unspecified organism SNOMED: 812889329, 720956910 Status: stable, progressing Assessment/Plan: Continue trach collar. Oxygen as needed Keep sats greater than 92% Pulmonary toilet suctioning G-tube feeds Monitor residuals monitor for bleeding on AC Continue H2 ezekiel Monitor labs IV fluids as needed Turn every 2 hours Poor long-term prognosis for meaningful recovery wants pt to go home refusing subacute Angel Jaramillo MD Aug 17, 2020 16:36
[2020-08-17] MEDS: Ascorbic Acid 500mg tab ORAL SCH (16:53)
[2020-08-17] MEDS: Amiodarone 200mg tab GT SCH (17:19)
--- NOTE | 2020-08-17 19:07 | Cardiology Progress Note ---
Subjective DATE OF SERVICE: Aug 17, 2020 s/p 1700cc thorocentesis. No new bleeding, since back on anticoagulation now following GI clearance. BP parameters stabilized. Monitor: AFib/flutter persisting still with increased ventricular rates now. Objective Last 24 Hour Vital Signs Date Time Temp Pulse Resp B/P (MAP) Pulse Ox O2 Delivery O2 Flow Rate FiO2 08/17/20 16:00 120 08/17/20 16:00 99.9 118 26 108/56 (73) 97 08/17/20 13:00 96 T-Piece 10.0 35 08/17/20 12:00 98.7 138 26 98/48 (65) 95 08/17/20 12:00 116 08/17/20 09:00 Trach Collar 6.0 08/17/20 08:37 104 94/51 08/17/20 08:00 98.2 104 24 94/51 (65) 95 08/17/20 08:00 105 08/17/20 07:05 97 T-Piece 10.0 35 08/17/20 04:00 99.4 109 20 85/50 (62) 93 08/17/20 04:00 109 08/17/20 02:00 98.6 08/17/20 02:00 98.6 08/17/20 00:29 96 T-Piece 10.0 35 08/17/20 00:00 101.4 107 20 95/58 (70) 92 08/17/20 00:00 107 08/16/20 21:25 119 107/56 08/16/20 21:00 Trach Collar 6.0 08/16/20 20:00 99.1 119 20 107/56 (73) 98 08/16/20 20:00 116 08/16/20 19:30 95 T-Piece 10.0 35 ROS: unchanged from 07/14/20 HEENT: Thick Trach secretions RHYTHM: NSR, ST, PACs, Afib LUNGS: bilateral rhonchi CARDIAC: normal S1 and S2, rapid rate, arrhythmia ABDOMEN: normal bowel sounds, soft, G-Tube intact EXTREMITIES: normal range of motion, non-tender, trace edema, other - withdrawn Assessment/Plan Assessment/Plan Healthcare associated PNA Paroxysmal atrial fibrillation/flutter Paroxysmal atrial ectopy Hx ICB with craniotomy and FIRE CONTROL ASSISTANT shunt Ac/chronic encephalopathy Seizure disorder Troponin leak; no signs of acute DE Trach status Dysphagia with GJ-Tube 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 Dyslipidemia on high dose statin - now dose adjusted Dehydration/hypernatremia Severe protein-calorie malnutrition Multiple wounds Anemia - s/p tx Pleural effusion - s/p left thorocentesis Titrate beta blockade dose as tolerated by BP; may have to digitalize. Abx Resp support Cardiac monitoring Statin dose adjusted Amiodarone at increased dose to maintain sinus rhythm. Free water replacement as needed; off IVF for now. DIuresis added Continue anticoagulation with caution due to bleeding risk Awaiting SNF dispo Dylan Mak MD Aug 17, 2020 19:07
--- NOTE | 2020-08-17 19:15 | NUR ---
NURSE HAND-OFF REPORT: Important Events on Shift:Wound care done Patient Status: full code Diet: tube feeding Pending Orders: N/A Pending Results/Labs:Morning labs Pending MD notification:N/A Latest Vital Signs: Temperature 99.9 , Pulse 120 , B/P 108 /56 , Respiratory Rate 26 , O2 SAT 97 , Trach Collar, O2 Flow Rate 10.0 . Vital Sign Comment: Stable EKG Rhythm: Sinus Tachycardia Rhythm change?: N MD Notified?: N -Dr. Aubree VALDEZ Response: Message left await call Latest Ramirez Fall Score: 70 Fall Risk: High Risk Safety Measures: Call light Within Reach, Bed Alarm Zone 1, Side Rails Side Rails x3, Bed position Low and Locked. Fall Precautions: Patient Fall Education Report given to Gho/RN.
--- NOTE | 2020-08-17 19:20 | NUR ---
NURSE NOTES: Receive a report from SELIN Alston. Round is made. Non-verbal d/t trach. Intact eye contacts. Noted severe body rigidity. On TERRIE mattress and position change q2hrs for pressure injuries. Spo2 remains above 94% with O2 10L Fio2 35%. On frequent trach suction and coming out moderate amount of whitish secretion. PICC on KIZZY. Site is intact. Yellow with sediment mixed urine is patent via foely catheter. Call light within reach. Will continue to monitor.
[2020-08-17] MEDS: Dyna-Hex 2% Top Sol 2oz TOPIC SCH (19:42)
[2020-08-17 20:00] VITALS: BP 96/57
--- NOTE | 2020-08-17 20:45 | NUR ---
NURSE NOTES: Notify Dr. Devlin for elevated temperature as 100.1. Receive orders of blood culturesx2, urine culture, sputum culture, Chest x-ray. Order noted and carried out. Will continue to monitor.
[2020-08-17] MEDS: Atorvastatin 20mg tab ORAL SCH (21:01)
--- NOTE | 2020-08-17 21:21 | Diagnostic Imaging Report ---
EXAM: XR Chest, 1 View CLINICAL HISTORY: SOB TECHNIQUE: Frontal view of the chest. COMPARISON: 08/14/2020 IMPRESSION: Large left pleural effusion. Vascular congestion in the left lung again seen. Right central line unchanged.
--- NOTE | 2020-08-17 21:50 | NUR ---
NURSE NOTES: Done tests including Chest X-ray. Pt had BM-loose brown moderate amount. Kept dry and clean. Change wound dressing as ordered.
[2020-08-18] VITALS: BP 93/51
[2020-08-18 04:00] VITALS: BP 90/52
[2020-08-18 07:01] LABS: BASOPHILS % (AUTO) 0.8 % (0.0-2.0); EOSINOPHILS % (AUTO) 2.3 % (0.0-3.0); HEMOGLOBIN 8.5 G/DL (14.2-18.0); MEAN CORPUSCULAR VOLUME 90 FL (80-99); MONOCYTES % (AUTO) 7.4 % (1.0-10.0); NEUTROPHILS % (AUTO) 76.6 % (45.0-75.0); PLATELET COUNT 366 K/UL (150-450); RED BLOOD COUNT 3.11 M/UL (4.70-6.10); WHITE BLOOD COUNT 7.6 K/UL (4.8-10.8)
--- NOTE | 2020-08-18 07:20 | NUR ---
NURSE HAND-OFF REPORT: Important Events on Shift: Elevated temperature--cultures done. Dressing done. BMx2 Patient Status: [stable] Diet: [G-tube feeding] Pending Orders: [] Pending Results/Labs:[] Pending MD notification:[] Latest Vital Signs: Temperature 98.7 , Pulse 109 , B/P 90 /52 , Respiratory Rate 16 , O2 SAT 96 , Trach Collar, O2 Flow Rate 8.0 . Vital Sign Comment: [] EKG Rhythm: Sinus Tachycardia Rhythm change?: N Notified?: N -Dr. Aubree VALDEZ Response: Message left await call Latest Ramirez Fall Score: 70 Fall Risk: High Risk Safety Measures: Call light Within Reach, Bed Alarm Zone 1, Side Rails Side Rails x3, Bed position Low and Locked. Fall Precautions: Patient Fall Education Report given to SELIN Joseph. Round is made.
[2020-08-18 07:51] LABS: ALANINE AMINOTRANSFERASE 218 U/L (12-78); ALBUMIN 0.9 G/DL (3.4-5.0); ALBUMIN/GLOBULIN RATIO 0.1 (1.0-2.7); ALKALINE PHOSPHATASE 173 U/L (46-116); ANION GAP 8 mmol/L (5-15); ASPARTATE AMINO TRANSFERASE 150 U/L (15-37); BILIRUBIN,TOTAL 0.4 MG/DL (0.2-1.0); BLOOD UREA NITROGEN 72 mg/dL (7-18); CALCIUM 8.4 MG/DL (8.5-10.1); CARBON DIOXIDE 28 MMOL/L (21-32); CHLORIDE 113 MMOL/L (98-107); CREATININE 1.2 MG/DL (0.55-1.30); POTASSIUM 3.7 MMOL/L (3.5-5.1); SODIUM 149 MMOL/L (136-145)
--- NOTE | 2020-08-18 07:53 | NUR ---
NURSE NOTES: Received report from SELIN Fermin. Pt is resting in bed, sleeping. pt AOx0, unable to respond. no s/s or complaint of distress at this time. RT is bedside w/ Pt at this time. pt wounds noted, multiple unchangeable. Gtube running vital AF 1.2 cont at 70cc. valles draining to gravity, yellow w. some sediment. KIZZY central line running TKO fluids at 20cc, asymptomatic and intact. Pt on p200 mattress. pt bed low and locked, call light in reach and bed alarm on.
[2020-08-18 08:00] VITALS: BP 97/50
--- NOTE | 2020-08-18 08:19 | Pulmonology Progress Note ---
Subjective ROS Limited/Unobtainable: Yes Allergies: Coded Allergies: No Known Allergies (Unverified , 11/02/19) All Systems: reviewed and negative except above Subjective CARE NOTED nonverbal on oxygen at 35% trach collar fevers noted recurrent effusion Objective Last 24 Hour Vital Signs Date Time Temp Pulse Resp B/P (MAP) Pulse Ox O2 Delivery O2 Flow Rate FiO2 08/18/20 07:55 98 T-Piece 8.0 30 08/18/20 07:55 109 16 96 T-Piece 8.0 30 08/18/20 04:00 123 08/18/20 04:00 98.7 119 20 90/52 (65) 96 08/18/20 01:05 97 T-Piece 8.0 35 08/18/20 00:00 113 08/18/20 00:00 98.5 113 20 93/51 (65) 97 08/17/20 21:00 Trach Collar 10.0 08/17/20 21:00 110 96/57 08/17/20 20:00 121 08/17/20 20:00 100.1 110 24 96/57 (70) 96 08/17/20 19:57 96 T-Piece 10.0 35 08/17/20 16:00 120 08/17/20 16:00 99.9 118 26 108/56 (73) 97 08/17/20 13:00 96 T-Piece 10.0 35 08/17/20 12:00 98.7 138 26 98/48 (65) 95 08/17/20 12:00 116 08/17/20 09:00 Trach Collar 6.0 08/17/20 08:37 104 94/51 Intake and Output 08/17/20 08/18/20 19:00 07:00 Intake Total 1040 ml 820 ml Output Total 450 ml Balance 590 ml 820 ml Intake Free Water 300 ml 750 ml Tube Feeding 740 ml 70 ml Output Urine Total 450 ml # Voids 1 # Bowel Movements 1 1 Objective WDWN NAD awake chronically ill moderate breath sounds bilaterally and reduced left [id number] NABS nontender GT no CCE nonfocal weak wounds noted Laboratory Tests 08/18/20 06:15: White Blood Count 7.6, Red Blood Count 3.11L, Hemoglobin 8.5L, Hematocrit 28.0L, Mean Corpuscular Volume 90, Mean Corpuscular Hemoglobin 27.4, Mean Corpuscular Hemoglobin Concent 30.4L, Red Cell Distribution Width 16.0H, Platelet Count 366, Mean Platelet Volume 5.9L, Neutrophils (%) (Auto) 76.6H, Lymphocytes (%) (Auto) 13.0L, Monocytes (%) (Auto) 7.4, Eosinophils (%) (Auto) 2.3, Basophils (%) (Auto) 0.8, Erythrocyte Sedimentation Rate [Pending], Sodium Level 149H, Potassium Level 3.7, Chloride Level 113H, Carbon Dioxide Level 28, Anion Gap 8, Blood Urea Nitrogen 72H, Creatinine 1.2, Estimat Glomerular Filtration Rate > 60, Glucose Level 177H, Calcium Level 8.4L, Magnesium Level 2.1, Total Bilirubin 0.4, Aspartate Amino Transf (AST/SGOT) 150H, Alanine Aminotransferase (ALT/SGPT) 218H, Alkaline Phosphatase 173H, C-Reactive Protein, Quantitative 2 5.5H, Pro-B-Type Natriuretic Peptide 4899H, Total Protein 7.1, Albumin 0.9L, Globulin 6.2, Albumin/Globulin Ratio 0.1L Current Medications Medications (Trade) Dose Ordered Sig/Clive Route PRN Reason Start Time Stop Time Status Last Admin Dose Admin Acetaminophen (Tylenol) 650 mg Q4H PRN RECTAL Temp >100.5 08/12/20 10:00 09/11/20 09:59 Amiodarone HCl (Cordarone) 400 mg DAILY@1800 GT 08/10/20 18:00 10/28/20 17:59 08/17/20 17:19 Ascorbic Acid (Vitamin C) 500 mg DAILY ORAL 08/17/20 16:00 09/16/20 15:59 08/17/20 16:53 Atorvastatin Calcium (Lipitor) 10 mg BEDTIME ORAL 08/05/20 21:00 10/22/20 20:59 08/17/20 21:01 Chlorhexidine Gluconate (Jenniefr-Hex 2%) 1 applic DAILY@2000 TOPIC 07/17/20 20:00 10/15/20 19:59 08/17/20 19:42 Famotidine (Pepcid) 20 mg Q12HR GT 07/16/20 21:00 10/14/20 20:59 08/17/20 21:00 Finasteride (Proscar) 5 mg DAILY ORAL 07/15/20 09:00 10/13/20 08:59 08/17/20 08:37 Hydralazine HCl (Apresoline) 25 mg Q6H PRN GT SBP above 150 07/24/20 23:30 10/22/20 23:29 07/26/20 05:22 Levetiracetam (Keppra) 1,000 mg Q12HR ORAL 08/12/20 21:00 09/11/20 20:59 08/17/20 21:01 Metoprolol Tartrate (Lopressor) 100 mg Q12HR ORAL 08/13/20 09:00 11/11/20 08:59 08/16/20 21:25 Multivitamins (Multivitamins) 1 tab DAILY ORAL 08/17/20 16:00 09/16/20 15:59 08/17/20 16:52 Multivitamins (Multivitamins) 1 tab DAILY ORAL 08/17/20 16:00 09/16/20 15:59 08/17/20 16:53 Sodium Hypochlorite (Dakin's Half Strength) 1 applic DAILY TOPIC 08/15/20 16:00 09/14/20 15:59 08/17/20 08:38 Assessment/Plan Assessment/Plan Impression: Healthcare-associated pneumonia Acute respiratory failure with hypoxia Tracheostomy status Pleural effusion, left-recurrent s/p tap Decubitus ulcers Urinary tract infection Anemia S/p previous Craniotomy, RCA occlusion, 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
[2020-08-18] MEDS: Metoprolol Tartrate 100mg tab ORAL SCH ×2 (09:00→20:55)
--- NOTE | 2020-08-18 09:00 | NUR ---
NURSE NOTES: Called for thoracentesis consent x2, voicemail left. awaiting call back.
[2020-08-18] MEDS: Ascorbic Acid 500mg tab ORAL SCH (09:16)
[2020-08-18] MEDS: Dakin's 0.25% (Half Strength) 16oz TOPIC SCH (09:17)
--- NOTE | 2020-08-18 11:32 | NUR ---
CASE MANAGEMENT: REVIEW 08/18/20 SI: PNA. UTI. BACTEREMIA.PLEURAL EFFUSION THORACENTESIS 08/13 ~ 1.7L REMOVED 98.4 117 20 97/50 SAT 95% TRACH COLLAR FLOW RATE 10L/30% H/H-8.5/28.0 ESR+124 BUN+72 AST/ALT+150/218 CRP+25.5 IS: AMIODARONE GT QD ZINC GT QD LOPRESSOR GT Q12 LIPITOR GT QHS VIT C GT BID KEPPRA GT Q12 PEPCID GT QD : TELEMETRY STATUS DCP: FROM HOME
[2020-08-18 11:56] VITALS: BP 99/54
[2020-08-18] MEDS: Dakin's 0.125% Soln (Quarter Strength) 16oz TOPIC SCH (12:15)
--- NOTE | 2020-08-18 12:55 | Surgery Progress Note ---
Surgery Progress Note Subjective Additional Comments recurrent right pleural effusion no n/v pending consent for thora lft's trending up Objective Last 24 Hour Vital Signs Date Time Temp Pulse Resp B/P (MAP) Pulse Ox O2 Delivery O2 Flow Rate FiO2 08/18/20 12:00 105 08/18/20 11:56 97.9 110 26 99/54 (69) 96 08/18/20 09:00 117 97/50 08/18/20 09:00 Trach Collar 10.0 08/18/20 08:00 106 08/18/20 08:00 98.4 117 20 97/50 (66) 95 08/18/20 07:55 98 T-Piece 8.0 30 08/18/20 07:55 109 16 96 T-Piece 8.0 30 08/18/20 04:00 123 08/18/20 04:00 98.7 119 20 90/52 (65) 96 08/18/20 01:05 97 T-Piece 8.0 35 08/18/20 00:00 113 08/18/20 00:00 98.5 113 20 93/51 (65) 97 08/17/20 21:00 Trach Collar 10.0 08/17/20 21:00 110 96/57 08/17/20 20:00 121 08/17/20 20:00 100.1 110 24 96/57 (70) 96 08/17/20 19:57 96 T-Piece 10.0 35 08/17/20 16:00 120 08/17/20 16:00 99.9 118 26 108/56 (73) 97 08/17/20 13:00 96 T-Piece 10.0 35 I&O Intake and Output 08/17/20 08/18/20 19:00 07:00 Intake Total 1040 ml 820 ml Output Total 450 ml Balance 590 ml 820 ml Intake Free Water 300 ml 750 ml Tube Feeding 740 ml 70 ml Output Urine Total 450 ml # Voids 1 # Bowel Movements 1 1 Dressing: saturated Cardiovascular: RSR Respiratory: decreased breath sounds Abdomen: soft, non-tender, present bowel sounds Extremities: no edema, no tenderness, no cyanosis, other Laboratory Tests Test 08/18/20 06:15 White Blood Count 7.6 K/UL (4.8-10.8) Red Blood Count 3.11 M/UL (4.70-6.10) L Hemoglobin 8.5 G/DL (14.2-18.0) L Hematocrit 28.0 % (42.0-52.0) L Mean Corpuscular Volume 90 FL (80-99) Mean Corpuscular Hemoglobin 27.4 PG (27.0-31.0) Mean Corpuscular Hemoglobin Concent 30.4 G/DL (32.0-36.0) L Red Cell Distribution Width 16.0 % (11.6-14.8) H Platelet Count 366 K/UL (150-450) Mean Platelet Volume 5.9 FL (6.5-10.1) L Neutrophils (%) (Auto) 76.6 % (45.0-75.0) H Lymphocytes (%) (Auto) 13.0 % (20.0-45.0) L Monocytes (%) (Auto) 7.4 % (1.0-10.0) Eosinophils (%) (Auto) 2.3 % (0.0-3.0) Basophils (%) (Auto) 0.8 % (0.0-2.0) Erythrocyte Sedimentation Rate 124 MM/HR (0-20) H Sodium Level 149 MMOL/L (136-145) H Potassium Level 3.7 MMOL/L (3.5-5.1) Chloride Level 113 MMOL/L (98-107) H Carbon Dioxide Level 28 MMOL/L (21-32) Anion Gap 8 mmol/L (5-15) Blood Urea Nitrogen 72 mg/dL (7-18) H Creatinine 1.2 MG/DL (0.55-1.30) Estimat Glomerular Filtration Rate > 60 mL/min (>60) Glucose Level 177 MG/DL (74-106) H Calcium Level 8.4 MG/DL (8.5-10.1) L Magnesium Level 2.1 MG/DL (1.8-2.4) Total Bilirubin 0.4 MG/DL (0.2-1.0) Aspartate Amino Transf (AST/SGOT) 150 U/L (15-37) H Alanine Aminotransferase (ALT/SGPT) 218 U/L (12-78) H Alkaline Phosphatase 173 U/L (46-116) H C-Reactive Protein, Quantitative 25.5 mg/dL (0.00-0.90) H Pro-B-Type Natriuretic Peptide 4899 pg/mL (0-125) H Total Protein 7.1 G/DL (6.4-8.2) Albumin 0.9 G/DL (3.4-5.0) L Globulin 6.2 g/dL Albumin/Globulin Ratio 0.1 (1.0-2.7) L Plan Problems: (1) Decubitus skin ulcer Assessment & Plan: Pt was discharged 08/15/20 and readmitted same day. 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 Small amt exudate that is of Sanguineous mixed with Formula noted from GT. Mild excoriation noted to Peristomal GT site. Full Thickness Sacral Pressure Injury (L)10.5cm x (W)8.3cm x (D)1.5cm, Undermining clockwise 9-2 by 1.3cm @10'oclock. Base of wound is 90% granular 10% necrotic. NO odor noted. Small amt serosanguineous exudate noted.Periwound is erythematous and indurated. No changes in skin temp noted. Full Thickness Pressure Injury Outer L Lower Quadrant of Buttocks.(L)5.5cm x (W)7cm x (D)1.5cm, Undermining clockwise 9-3 by 4.5cm @12o'clock, Tunneled area within base of wound by 5.5cm @ 1-2o'clock. Base of wound is 85% % moist and pink ,15% necrotic at base at undermined area of wound. Bone exposure noted. Small amt serosanguineous exudate noted. Periwound is erythematous and indurated. No odor noted. Full thickness Pressure Injury L Ischium(L)2cm x (W)0.9cm x (D)0.3cm. Base of wound is moist, and pink. Edges are adherent to base of wound. Periwound is maroon and indurated. NO changes in skin temp periwound. NO odor noted. Non-Blanchable erythema without induration noted to R Hip /R trochanteric.. Full Thickness Pressure Injury lateral L Tibia(L)21.5cm x (W)3.5cm x (D)0.2cm. Base of wound is 95% granular,5% necrosis along borders. Edges are adherent to base of wound . Moderate amt sanguineous exudate noted. No odor noted.Periwound skin colour is darker than is normal tone but without erythema or induration. Full thickness Pressure Injury L Heel extending into Plantar aspect of heel(L)8.7cm x (W)6.5cm x(D)0.6cm.Base of wound is 60% beefy granulation,40% necrotic. Bone is palpable. (+) Epibole at proximal borders of wound in close proximity with achilles. Small amt haemopurulent exudate noted. Wound is malodorous. Periwound is dusky and indurated. Full Thickness Pressure Injury Lateral L Foot (L)1.9cm x (W)3.4cm x (D)0.3cm, undermining clockwise 9-3 by 0.2cm @9o'clock. Base of wound is 10% necrotic 90% antonio. Wound is malodorous. Edges are macerate with scattered areas of necrosis along edges. Small amt haemopurulent exudate noted.Periwound is fluctuant and dusky. Full Thickness Pressure Injury distal/lateral L foot(L)1.3cm x (W)3.7cm x (D)0.2cm. Base of wound is 80% soft necrosis,20% moist and pink. edges are macerated. Wound is malodorous. Small amt brown exudate noted . Periwound is dusky and fluctuant. Unstageable Pressure injury dorsal L foot (L)1cm x (W)0.9cm. Base of wound is 100% necrotic. Edges are erythematous and macerated. Periwound without erythema,induration or fluctuance. Full thickness Pressure Injury R Heel including plantar aspect of heel (L)8.7cm x (W)6.5cm x (D)0.6cm. Base of wound is 60% beefy granulation,40% necrotic. Bone exposure at base of wound. Moderate amt haemopurulent exudate. Wound is malodorous. Proximal edges of wound within close proximity with achilles is rolled. Edges are otherwise macerated. Periwound is fluctuant and dusky. Full Thickness Pressure Injury distal/lateral R foot (L)0.5cm x (W)0.6cm. Base of wound is 100% fibrinous slough. Erythematous borders. Periwound without induration or fluctuance. Small amt serous exudate noted. Tx.Plan: Wash GT site with Soap and Water. Pat dry. Apply Moisture Barrier Paste around Gt Daily. Leave open to Air. Cleanse Sacral wound, L buttocks, and L Ischia wounds with Dakin's 0.25% Kristel. Loosely pack wounds with Dakin's moistened Kerlix.Apply Triad Paste periwound. Cover with Optifoam drsgs Daily and prn. Cleanse wound Lateral L Tibia with Dakin's o.25% Kristel. Rinse with Saline. Apply Promogran moistened with Saline. Apply Moisture Barrier Paste along borders. Cover with ABD Pads. Wrap with Kerlix every Mon-Wed-Fri (NOTE: Wound Nurse to Aplpy Promogran) Cleanse wounds L Foot with Dakin's 0.25% Kristel. Apply Dakin's moistened Gauze to each wound. Apply Triad Paste along Borders of each wound. Cover with ABD Pads and wrap with Kerlix Daily and prn. Cleanse R Heel wound with Dakin's 0.25% Kristel. Apply Dakin's Moistened Gauze to wound. Apply Triad Paste Periwound. Cover with ABD Pad. Wrap with Kerlix Daily and prn. Reposition at least every 2hours or as tolerated. Place Pillow Between Knees. Off-load heels with 2 Pillows. APM/TERRIE Mattress overlay. (2) Anemia Assessment & Plan: trend h/h prbc prn (3) UTI (urinary tract infection) (4) Pleural effusion, left Assessment & Plan: Ultrasound used to localize optimal puncture site. Sterile prepping and draping left chest. Local anesthesia with 1% lidocaine. Under real-time ultrasound guidance, puncture pleural space using thoracentesis needle. Stylet removed. Catheter placed to vacuum bottle suction. Total 1700 milliliters of fluid aspirated. Patient tolerated procedure well, without immediate complication. Findings: Followup sonography demonstrates small amount of residual pleural fluid. Impression: Successful ultrasound-guided thoracentesis, yielding 1700 milliliters of fluid Lungs: Hazy left lung attenuation could be due to consolidation, pulmonary edema; correlate with presentation. Retrocardiac atelectasis without or with consolidation. Pleural space: Small-moderate left pleural effusion with passive atelectasis. No pneumothorax. Heart: Unremarkable. No cardiomegaly. Mediastinum: Unremarkable. Bones/joints: No acute abnormality Tubes, lines and devices: Tracheostomy. Right upper extremity PICC tip in the mid SVC. IMPRESSION: 1. Tracheostomy. 2. Right upper extremity PICC tip in the mid SVC. 3. Small-moderate left pleural effusion with passive atelectasis. 4. Hazy left lung attenuation could be due to consolidation, pulmonary edema; correlate with presentation. 5. Retrocardiac atelectasis without or with consolidation. 6. Recommend CT chest with IV contrast to further characterize these findings. plan repeat thora (5) Malfunction of gastrostomy tube Assessment & Plan: DAILY ESTIMATED NEEDS: Needs based on Wounds, pulmonary/ 74.5kg 25-30 kcals/kg 9301-1542 total kcals 1.5-2 g protein/kg 111-149 g total protein 25-30 mL/kg 2272-0363 total fluid mLs NUTRITION DIAGNOSIS: * Swallowing difficulty R/T dysphagia, h/o craniotomy, respiratory failure as evidenced by pt on T-collar, GJ tube dependent. * Increased kcal/prot/micronutrients needs R/T wound healing as evidenced by pt admitted w/ multiple advanced wounds including full thickness wound x 7 and unstageable wounds x 2, refer to eval. CURRENT TF:Jevity 1.2 @ 60ml/hr x 24 hrs-> now Glucerna 1.2 ENTERAL NUTRITION RECOMMENDATIONS: Glucerna 1.2 @ 65ml/hr x 24 hrs + Prosource 1pkt TID to provide 1560ml, 1872kcal, 94g+ 33g prot, 1259ml free water * Increase goal rate to 65ml/hr x 24 hrs to better meet est needs * Add Prosource 1pkt TID to meet increased protein needs * HOB over 30 degrees/ water flush 150ml q 6hrs without IVF ADDITIONAL RECOMMENDATIONS: * Calibrated bedscale wt * Wound Care: Con't Vit C 500mg BID, ZnSO4 220mg QD x 10 days add Stevie BID * Monitor BGs, need for carb controlled TF -> now on Glucerna 1.2 * Monitor lytes, replete as needed (6) Acute respiratory failure with hypoxia (7) HCAP (healthcare-associated pneumonia) Deny Westfall Aug 18, 2020 12:55
--- NOTE | 2020-08-18 15:10 | NUR ---
NURSE NOTES: Notified Dr Devlin pt blood culture gram - rods
--- NOTE | 2020-08-18 15:42 | Pre-Procedure Note/Attestation ---
Pre-Procedure Note/Attestation Complete Prior to Procedure Planned Procedure: left Procedure Narrative: thoracentesis Indications for Procedure Pre-Operative Diagnosis: pleural effusion Attestation I attest that I discussed the nature of the procedure; its benefits; risks and complications; and alternatives (and the risks and benefits of such alternatives), prior to the procedure, with the patient (or the patient's legal quality audit representative). I attest that, if there was a reasonable possibility of needing a blood turner sfusion, the patient (or the patient's legal quality audit representative) was given the [facility] standardized written summary, pursuant to the Carlos Hernán Blood Safety Act ([place] Health and Safety Code # 1645, as amended). I attest that I re-evaluated the patient just prior to the surgery and that there has been no change in the patient's H&P, except as documented below: Discussed by phone with pt's. daughter Marty Nelson MD Aug 18, 2020 15:42
--- NOTE | 2020-08-18 15:43 | Diagnostic Imaging Report ---
Indication: Status post thoracentesis, history of shortness of breath Technique: One view of the chest Comparison: 08/17/2020 Findings: Interim marked improvement of previously demonstrated left pleural effusion, with only minimal residual, marked improvement of aeration of the left lung. There is still some residual left costophrenic angle blunting as well as some left basilar parenchymal opacity. No pneumothorax. Right lung pleural space remain clear. Tracheostomy, ventriculoperitoneal shunt tubing, right arm PICC remain.. Impression: Markedly improved left pleural effusion, status post thoracentesis. No radiographically evident complication Other findings as noted
--- NOTE | 2020-08-18 15:43 | Brief Operative Note ---
Immediate Post Operative Note Operative Note Pre-op Diagnosis: pleural effusion Procedure: thoracentesis Post-op Diagnosis: same as pre-op Surgeon: Jeremías Edmonds Anesthesia: local Specimen: none Complications: none Fluids: none Implant(s) used?: No Marty Edmonds MD Aug 18, 2020 15:43
[2020-08-18 15:53] VITALS: BP 98/56
--- NOTE | 2020-08-18 16:09 | Diagnostic Imaging Report ---
Indications: Pleural effusion Technique: Ultrasound used to localize optimal puncture site. Sterile prepping and draping left chest. Local anesthesia with 1% lidocaine. Under real-time ultrasound guidance, puncture pleural space using thoracentesis needle. Stylet removed. Catheter placed to vacuum bottle suction. Total 1200 milliliters of fluid aspirated. Patient tolerated procedure well, without immediate complication. Findings: Followup sonography demonstrates resolution of most of the pleural fluid Impression: Successful ultrasound-guided thoracentesis, yielding 1200 milliliters of fluid
--- NOTE | 2020-08-18 16:36 | NUR ---
NURSE NOTES:WOUND CARE FOLLOW-UP NOTES: Assistance provided with wound care. Sacral wound,L Buttocks, L Ischial wounds cleansed with Dakin's and each wound loosely packed with Dakin's moistened Kerlix.Moisture Barrier Paste applied to borders of each wound and each wound covered with Optifoam drsgs. Perianal area noted to be red and excoriated. Moisture Barrier Paste applied to affected area. Drsgs to L tibia, L Heel and R Heel noted to be saturated and malodorous. Both lower ext washed with Chlorhexidine soap prior to providing wound care.Base of wound lateral L Tibia beefy red. Edges are adherent with an area of 5% necrosis distally. Small amt sanguineous exudate No erythema or changes in skin temp periwound. Wound Later L Tibia cleansed with Saline. Promogran applied to base of wound.Moisture Barrier Paste applied along borders. Covered with ABD pad. Wrapped with Kerlix. R and L Heel wounds cleansed Dakin's 0.25% justina. Dakin's moistened gauze applied to each wound Moisture Barrier Paste applied to borders of each wound and each wound covered with Abd Pads and each heel wrapped with Kerlix drsgs. Skin under tracheal collar assessed and no evidence of skin breakdown noted. Peristomal Gt site is resolving, Skin is moist but pink.No new skin concerns noted.
[2020-08-18] MEDS: Amiodarone 200mg tab GT SCH (17:10)
[2020-08-18] MEDS: Piperacillin/Tazobactam 3.375 GM in NS 110 ML IVPB SCH (17:11)
--- NOTE | 2020-08-18 18:04 | NUR ---
NURSE HAND-OFF REPORT: Important Events on Shift: blood culture gram negative- deandre and marcelino aware// thoracentesis removed 1.2L// wound care done w/ eysha// Patient Status: fc/ stable Diet: vital AF at 70cc, flush 100 q4 Pending Orders: Pending Results/Labs: Pending MD notification: Latest Vital Signs: Temperature 98.0 , Pulse 111 , B/P 98 /56 , Respiratory Rate 22 , O2 SAT 96 , Trach Collar, O2 Flow Rate 10.0 . Vital Sign Comment: EKG Rhythm: Sinus Tachycardia Rhythm change?: N MD Notified?: N -Dr. Aubree VALDEZ Response: Message left await call Latest Ramirez Fall Score: 70 Fall Risk: High Risk Safety Measures: Call light Within Reach, Bed Alarm Zone 1, Side Rails Side Rails x3, Bed position Low and Locked. Fall Precautions: Patient Fall Education Report to be given, pt is stable. Addendum: 08/18/20 at 1920 by Opal Connolly RN RN Pt is stable, report given to SELIN Lyons.
--- NOTE | 2020-08-18 19:25 | NUR ---
NURSE NOTES: Patient received from Opal Connolly RN. Patient resting with eyes closed, A&O x0. Patient nonverbal. No s/s of pain and distress. On T-piece @ 10L and Fio2 of 35% saturating at 96-99%. Gtube patent and intact running Vital AF 1.2 @ 70cc/hr. [place] catheter patent and intact draining well to gravity. IV site patent and intact running TKO. Skin issues noted, Wound care done today. Bed in lowest position and locked. Bed alarm on.
[2020-08-18 20:00] VITALS: BP 104/56
[2020-08-18] MEDS: Atorvastatin 20mg tab ORAL SCH (20:53)
[2020-08-18] MEDS: Dyna-Hex 2% Top Sol 2oz TOPIC SCH (20:56)
[2020-08-18] MEDS: Acetaminophen 650mg/20.3ml GT PRN (21:36)
--- NOTE | 2020-08-18 22:54 | Cardiology Progress Note ---
Subjective DATE OF SERVICE: Aug 18, 2020 s/p 1700cc thorocentesis last week, and 1200cc L thorocentesis today. No new bleeding, since back on anticoagulation now following GI clearance. BP parameters stabilized. Monitor: AFib/flutter persisting still with increased ventricular rates now. Objective Last 24 Hour Vital Signs Date Time Temp Pulse Resp B/P (MAP) Pulse Ox O2 Delivery O2 Flow Rate FiO2 08/18/20 22:06 98.1 08/18/20 20:55 109 104/56 08/18/20 19:04 96 T-Piece 10.0 35 08/18/20 19:04 99 16 96 T-Piece 8.0 30 08/18/20 16:00 111 08/18/20 15:53 98.0 113 22 98/56 (70) 96 08/18/20 13:47 98 T-Piece 10.0 35 08/18/20 12:00 105 08/18/20 11:56 97.9 110 26 99/54 (69) 96 08/18/20 09:00 117 97/50 08/18/20 09:00 Trach Collar 10.0 08/18/20 08:00 106 08/18/20 08:00 98.4 117 20 97/50 (66) 95 08/18/20 07:55 98 T-Piece 8.0 30 08/18/20 07:55 109 16 96 T-Piece 8.0 30 08/18/20 04:00 123 08/18/20 04:00 98.7 119 20 90/52 (65) 96 08/18/20 01:05 97 T-Piece 8.0 35 08/18/20 00:00 113 08/18/20 00:00 98.5 113 20 93/51 (65) 97 ROS: unchanged from 07/14/20 HEENT: Thick Trach secretions RHYTHM: NSR, ST, PACs, Afib LUNGS: bilateral rhonchi CARDIAC: normal S1 and S2, rapid rate, arrhythmia ABDOMEN: normal bowel sounds, soft, G-Tube intact EXTREMITIES: normal range of motion, non-tender, trace edema, other - withdrawn Laboratory Tests Test 08/18/20 06:15 White Blood Count 7.6 K/UL (4.8-10.8) Red Blood Count 3.11 M/UL (4.70-6.10) L Hemoglobin 8.5 G/DL (14.2-18.0) L Hematocrit 28.0 % (42.0-52.0) L Mean Corpuscular Volume 90 FL (80-99) Mean Corpuscular Hemoglobin 27.4 PG (27.0-31.0) Mean Corpuscular Hemoglobin Concent 30.4 G/DL (32.0-36.0) L Red Cell Distribution Width 16.0 % (11.6-14.8) H Platelet Count 366 K/UL (150-450) Mean Platelet Volume 5.9 FL (6.5-10.1) L Neutrophils (%) (Auto) 76.6 % (45.0-75.0) H Lymphocytes (%) (Auto) 13.0 % (20.0-45.0) L Monocytes (%) (Auto) 7.4 % (1.0-10.0) Eosinophils (%) (Auto) 2.3 % (0.0-3.0) Basophils (%) (Auto) 0.8 % (0.0-2.0) Erythrocyte Sedimentation Rate 124 MM/HR (0-20) H Sodium Level 149 MMOL/L (136-145) H Potassium Level 3.7 MMOL/L (3.5-5.1) Chloride Level 113 MMOL/L (98-107) H Carbon Dioxide Level 28 MMOL/L (21-32) Anion Gap 8 mmol/L (5-15) Blood Urea Nitrogen 72 mg/dL (7-18) H Creatinine 1.2 MG/DL (0.55-1.30) Estimat Glomerular Filtration Rate > 60 mL/min (>60) Glucose Level 177 MG/DL (74-106) H Calcium Level 8.4 MG/DL (8.5-10.1) L Magnesium Level 2.1 MG/DL (1.8-2.4) Total Bilirubin 0.4 MG/DL (0.2-1.0) Aspartate Amino Transf (AST/SGOT) 150 U/L (15-37) H Alanine Aminotransferase (ALT/SGPT) 218 U/L (12-78) H Alkaline Phosphatase 173 U/L (46-116) H C-Reactive Protein, Quantitative 25.5 mg/dL (0.00-0.90) H Pro-B-Type Natriuretic Peptide 4899 pg/mL (0-125) H Total Protein 7.1 G/DL (6.4-8.2) Albumin 0.9 G/DL (3.4-5.0) L Globulin 6.2 g/dL Albumin/Globulin Ratio 0.1 (1.0-2.7) L Microbiology Date/Time Source Procedure Growth Status 08/17/20 21:50 Blood Blood Culture - Preliminary Resulted 08/17/20 21:25 Blood Blood Culture - Preliminary Resulted Assessment/Plan Assessment/Plan Healthcare associated PNA Paroxysmal atrial fibrillation/flutter Paroxysmal atrial ectopy 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 Dyslipidemia on high dose statin - now dose adjusted Dehydration/hypernatremia Severe protein-calorie malnutrition Multiple wounds Anemia - s/p tx Pleural effusion - s/p left thorocentesis Titrate beta blockade dose as tolerated by BP; may have to digitalize. Abx Resp support Cardiac monitoring Statin dose adjusted Amiodarone at increased dose to maintain sinus rhythm. Free water replacement as needed; off IVF for now. Diuresis based on daily assessments of volume status. Continue anticoagulation with caution due to bleeding risk Awaiting SNF Dylan Sparks MD Aug 18, 2020 22:54
[2020-08-19] VITALS: BP 85/50
[2020-08-19] MEDS: Piperacillin/Tazobactam 3.375 GM in NS 110 ML IVPB SCH ×4 (01:22→22:14)
[2020-08-19 04:00] VITALS: BP 107/57
--- NOTE | 2020-08-19 06:49 | NUR ---
NURSE HAND-OFF REPORT: Important Events on Shift:[BP 85/50 Dr. Jaramillo Aware, Fever 100.[address] Dr[address] Devlin aware] Patient Status: [FC] Diet: [Vital AF 1.2 @ 70cc/hr continuous, flush 100cc q4] Pending Orders: [] Pending Results/Labs:[] Pending MD notification:[] Latest Vital Signs: Temperature 97.5 , Pulse 75 , B/P 107 /57 , Respiratory Rate 19 , O2 SAT 97 , Trach Collar, O2 Flow Rate 10.0 . Vital Sign Comment: [] EKG Rhythm: Sinus Rhythm Rhythm change?: N Notified?: N -Dr. Aubree VALDEZ Response: Message left await call Latest Ramirez Fall Score: 70 Fall Risk: High Risk Safety Measures: Call light Within Reach, Bed Alarm Zone 1, Side Rails Side Rails x3, Bed position Low and Locked. Fall Precautions: Patient Fall Education Report given to [].
--- NOTE | 2020-08-19 07:26 | NUR ---
NURSE NOTES: Report given to Italo SMALLWOOD
--- NOTE | 2020-08-19 07:56 | Pulmonology Progress Note ---
Subjective ROS Limited/Unobtainable: Yes Allergies: Coded Allergies: No Known Allergies (Unverified , 11/02/19) All Systems: reviewed and negative except above Subjective CARE NOTED nonverbal on oxygen at 35% bcx+ s/p tap Objective Last 24 Hour Vital Signs Date Time Temp Pulse Resp B/P (MAP) Pulse Ox O2 Delivery O2 Flow Rate FiO2 08/19/20 04:00 97.5 75 19 107/57 (74) 97 08/19/20 04:00 75 08/19/20 01:56 95 T-Piece 10.0 35 08/19/20 00:00 97.5 109 17 85/50 (62) 97 08/19/20 00:00 81 08/18/20 22:06 98.1 08/18/20 21:00 Trach Collar 10.0 08/18/20 20:55 109 104/56 08/18/20 20:30 98.1 08/18/20 20:00 100.6 109 18 104/56 (72) 97 08/18/20 19:04 96 T-Piece 10.0 35 08/18/20 19:04 99 16 96 T-Piece 8.0 30 08/18/20 16:00 111 08/18/20 15:53 98.0 113 22 98/56 (70) 96 08/18/20 13:47 98 T-Piece 10.0 35 08/18/20 12:00 105 08/18/20 11:56 97.9 110 26 99/54 (69) 96 08/18/20 09:00 117 97/50 08/18/20 09:00 Trach Collar 10.0 08/18/20 08:00 106 08/18/20 08:00 98.4 117 20 97/50 (66) 95 Intake and Output 08/18/20 08/19/20 19:00 07:00 Intake Total 1070 ml Output Total 3400 ml 600 ml Balance -2330 ml -600 ml Intake Free Water 300 ml Tube Feeding 770 ml Output Urine Total 1000 ml 600 ml Other 2400 ml # Bowel Movements 1 1 Objective WDWN NAD awake chronically ill moderate breath sounds bilaterally without rhonchi [id number] NABS nontender GT no CCE nonfocal weak wounds noted Microbiology Date/Time Source Procedure Growth Status 08/17/20 21:50 Sputum Induced Gram Stain - Final Resulted 08/17/20 21:50 Sputum Culture - Preliminary Gram Negative Bacillus 1 Resulted 08/17/20 21:50 Blood Blood Culture - Preliminary Resulted 08/17/20 21:25 Blood Blood Culture - Preliminary Resulted Current Medications Medications (Trade) Dose Ordered Sig/Clive Route PRN Reason Start Time Stop Time Status Last Admin Dose Admin Acetaminophen (Tylenol) 650 mg Q4H PRN GT Temp >100.5 08/18/20 21:15 09/17/20 21:14 08/18/20 21:36 Amiodarone HCl (Cordarone) 400 mg DAILY@1800 GT 08/10/20 18:00 10/28/20 17:59 08/18/20 17:10 Ascorbic Acid (Vitamin C) 500 mg DAILY ORAL 08/17/20 16:00 09/16/20 15:59 08/18/20 09:16 Atorvastatin Calcium (Lipitor) 10 mg BEDTIME ORAL 08/05/20 21:00 10/22/20 20:59 08/18/20 20:53 Chlorhexidine Gluconate (Jennifer-Hex 2%) 1 applic DAILY@2000 TOPIC 07/17/20 20:00 10/15/20 19:59 08/18/20 20:56 Famotidine (Pepcid) 20 mg Q12HR GT 07/16/20 21:00 10/14/20 20:59 08/18/20 20:54 Finasteride (Proscar) 5 mg DAILY ORAL 07/15/20 09:00 10/13/20 08:59 08/18/20 09:16 Hydralazine HCl (Apresoline) 25 mg Q6H PRN GT SBP above 150 07/24/20 23:30 10/22/20 23:29 07/26/20 05:22 Levetiracetam (Keppra) 1,000 mg Q12HR ORAL 08/12/20 21:00 09/11/20 20:59 08/18/20 20:54 Metoprolol Tartrate (Lopressor) 100 mg Q12HR ORAL 08/13/20 09:00 11/11/20 08:59 08/18/20 20:55 Multivitamins (Multivitamins) 1 tab DAILY ORAL 08/17/20 16:00 09/16/20 15:59 08/18/20 09:16 Piperacillin Sod/ Tazobactam Sod 3.375 gm/Sodium Chloride 110 ml @ 27.5 mls/hr EVERY 8 HOURS IVPB 08/18/20 17:00 08/23/20 16:59 08/19/20 05:51 Sodium Hypochlorite (Dakin's Half Strength) 1 applic DAILY TOPIC 08/15/20 16:00 09/14/20 15:59 08/18/20 09:17 Sodium Hypochlorite (Dakin's Quarter Strength) 1 applic DAILY TOPIC 08/18/20 12:15 08/19/20 12:14 08/18/20 12:15 Assessment/Plan Assessment/Plan Impression: Healthcare-associated pneumonia Acute respiratory failure with hypoxia Tracheostomy status Pleural effusion, left-recurrent s/p tap Decubitus ulcers Urinary tract infection Anemia S/p previous Craniotomy, RCA occlusion, 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
[2020-08-19 08:00] VITALS: BP 89/52
--- NOTE | 2020-08-19 08:00 | NUR ---
NURSE NOTES:Handoff received from SELIN Lyons. Patient received resting in bed, no acute signs of distress noted. Patient has trach collar connected to 10L with FI02 of 35% saturating at 98%. Patient is non-verbal but opens eyes to shaking. Patient has R Upper arm PICC running antibiotic. G tube is patent and running Vital A.F @70ML.HR. [place] is also patent and draining to gravity. Multiple skin issues noted. Patient is placed on Contact precautions for VRE, fall and aspiration precautions with bed in the low and locked position, call light at bedside, HOB elevated to 30' bed in the low and locked position, bed alarm on. multiple skin issues noted.
[2020-08-19] MEDS: Metoprolol Tartrate 100mg tab ORAL SCH ×2 (09:00→20:38)
[2020-08-19] MEDS: Ascorbic Acid 500mg tab ORAL SCH (09:15)
[2020-08-19] MEDS: Dakin's 0.125% Soln (Quarter Strength) 16oz TOPIC SCH (09:15)
[2020-08-19] MEDS: Dakin's 0.25% (Half Strength) 16oz TOPIC SCH ×2 (09:16→16:30)
--- NOTE | 2020-08-19 10:09 | NUR ---
RD ASSESSMENT & RECOMMENDATIONS SEE CARE ACTIVITY FOR COMPLETE ASSESSMENT DAILY ESTIMATED NEEDS: Needs based on Wounds, pulmonary/ 74.5kg 25-30 kcals/kg 5992-6577 total kcals 1.5-2 g protein/kg 111-149 g total protein 25-30 mL/kg 4507-2233 total fluid mLs NUTRITION DIAGNOSIS: * Swallowing difficulty R/T dysphagia, h/o craniotomy, respiratory failure as evidenced by pt on T-collar, GJ tube dependent. * Increased kcal/prot/micronutrients needs R/T wound healing as evidenced by pt admitted w/ multiple advanced wounds including full thickness wound x 7 and unstageable wounds x 2, refer to WC eval. CURRENT TF:Vital AF 1.2 @70ml/hr ENTERAL NUTRITION RECOMMENDATIONS: Vital AF 1.2 @ 65ml/hr x 24 hrs to provide 1560ml, 1872kcal, 117g prot, 1265ml free water * Rec goal rate to 65ml/hr x 24 hrs to better meet est needs * HOB over 30 degrees/ water flush 180ml q 6hrs without IVF ------ elemental TF formula of Vital AF not indicated, consider changing TF to Glucerna 1.2 @ 65ml/hr x 24 hrs + Prosource 1pkt TID to provide 1560ml, 1872kcal, 94g+ 33g prot, 1259ml free water ADDITIONAL RECOMMENDATIONS: * Calibrated bedscale wt * Wound Care: Con't Vit C 500mg BID, ZnSO4 220mg QD x 10 days add Stevie BID * Monitor lytes, replete as needed * Increase water flushes: elev Na-> now wnl and elev BUN * Monitor BGs, need for hypoglycemics
[2020-08-19 11:08] LABS: BASOPHILS % (AUTO) 0.5 % (0.0-2.0); EOSINOPHILS % (AUTO) 2.5 % (0.0-3.0); HEMATOCRIT 28.9 % (42.0-52.0); HEMOGLOBIN 8.4 G/DL (14.2-18.0); LYMPHOCYTES % (AUTO) 11.8 % (20.0-45.0); MEAN CORPUSCULAR VOLUME 92 FL (80-99); NEUTROPHILS % (AUTO) 80.3 % (45.0-75.0); PLATELET COUNT 379 K/UL (150-450); RED BLOOD COUNT 3.13 M/UL (4.70-6.10); RED CELL DISTRIBUTION WIDTH 15.6 % (11.6-14.8); WHITE BLOOD COUNT 8.3 K/UL (4.8-10.8)
[2020-08-19 11:18] LABS: ALANINE AMINOTRANSFERASE 167 U/L (12-78); ALBUMIN 0.9 G/DL (3.4-5.0); ALBUMIN/GLOBULIN RATIO 0.1 (1.0-2.7); ALKALINE PHOSPHATASE 154 U/L (46-116); AMYLASE 35 U/L (25-115); ASPARTATE AMINO TRANSFERASE 87 U/L (15-37); BILIRUBIN,TOTAL 0.3 MG/DL (0.2-1.0); CALCIUM 9.1 MG/DL (8.5-10.1); CARBON DIOXIDE 31 MMOL/L (21-32); CREATININE 1.2 MG/DL (0.55-1.30)
[2020-08-19 11:53] LABS: BLOOD UREA NITROGEN 74 mg/dL (7-18); CHLORIDE 117 MMOL/L (98-107); POTASSIUM 3.8 MMOL/L (3.5-5.1); SODIUM 153 MMOL/L (136-145)
[2020-08-19 12:00] VITALS: BP 105/56
--- NOTE | 2020-08-19 13:32 | Infectious Diseases Prog Note ---
Assessment/Plan Assessment/Plan A: 1. Gram negative pneumonia. 2. Gram negative sepsi 3. Hypertension. 4. Atrial fibrillation. 5. anemia 6. S/p tracheostomy 7. s/p GT 8. Left pleural effusion, s/p thoracentesis 9. Bacteremia with Staph epidermidis 10. ? PICC line infection PLAN: 1. Continue Zosyn 2. Change PICC line 3. Will f/u cultures Subjective ROS Limited/Unobtainable: Yes Allergies: Coded Allergies: No Known Allergies (Unverified , 11/02/19) Objective Last 24 Hour Vital Signs Date Time Temp Pulse Resp B/P (MAP) Pulse Ox O2 Delivery O2 Flow Rate FiO2 08/19/20 12:00 98.0 95 20 105/56 (72) 96 08/19/20 12:00 92 08/19/20 09:00 87 89/52 08/19/20 09:00 Trach Collar 10.0 08/19/20 08:00 97.3 87 20 89/52 (64) 99 08/19/20 08:00 79 08/19/20 04:00 97.5 75 19 107/57 (74) 97 08/19/20 04:00 75 08/19/20 01:56 95 T-Piece 10.0 35 08/19/20 00:00 97.5 109 17 85/50 (62) 97 08/19/20 00:00 81 08/18/20 22:06 98.1 08/18/20 21:00 Trach Collar 10.0 08/18/20 20:55 109 104/56 08/18/20 20:30 98.1 08/18/20 20:00 100.6 109 18 104/56 (72) 97 08/18/20 19:04 96 T-Piece 10.0 35 08/18/20 19:04 99 16 96 T-Piece 8.0 30 08/18/20 16:00 111 08/18/20 15:53 98.0 113 22 98/56 (70) 96 08/18/20 13:47 98 T-Piece 10.0 35 Height (Feet): 5 Height (Inches): 4.00 Weight (Pounds): 171 HEENT: mucous membranes moist Respiratory/Chest: lungs clear, other - on Tbar Cardiovascular: normal rate, other - R arm PICC line Abdomen: soft, non tender, other - GT feeding Extremities: no edema Neurologic/Psychiatric: other - opens eyes Musculoskeletal: atrophy Microbiology Date/Time Source Procedure Growth Status 08/17/20 21:50 Sputum Induced Gram Stain - Final Resulted 08/17/20 21:50 Sputum Culture - Preliminary Gram Negative Bacillus 1 Resulted 08/17/20 21:50 Blood Blood Culture - Preliminary Resulted 08/17/20 21:25 Blood Blood Culture - Preliminary Resulted Laboratory Tests Test 08/19/20 10:35 White Blood Count 8.3 K/UL (4.8-10.8) Red Blood Count 3.13 M/UL (4.70-6.10) L Hemoglobin 8.4 G/DL (14.2-18.0) L Hematocrit 28.9 % (42.0-52.0) L Mean Corpuscular Volume 92 FL (80-99) Mean Corpuscular Hemoglobin 26.9 PG (27.0-31.0) L Mean Corpuscular Hemoglobin Concent 29.2 G/DL (32.0-36.0) L Red Cell Distribution Width 15.6 % (11.6-14.8) H Platelet Count 379 K/UL (150-450) Mean Platelet Volume 5.9 FL (6.5-10.1) L Neutrophils (%) (Auto) 80.3 % (45.0-75.0) H Lymphocytes (%) (Auto) 11.8 % (20.0-45.0) L Monocytes (%) (Auto) 5.0 % (1.0-10.0) Eosinophils (%) (Auto) 2.5 % (0.0-3.0) Basophils (%) (Auto) 0.5 % (0.0-2.0) Sodium Level 153 MMOL/L (136-145) H Potassium Level 3.8 MMOL/L (3.5-5.1) Chloride Level 117 MMOL/L (98-107) H Carbon Dioxide Level 31 MMOL/L (21-32) Blood Urea Nitrogen 74 mg/dL (7-18) H Creatinine 1.2 MG/DL (0.55-1.30) Estimat Glomerular Filtration Rate > 60 mL/min (>60) Glucose Level 129 MG/DL (74-106) H Calcium Level 9.1 MG/DL (8.5-10.1) Total Bilirubin 0.3 MG/DL (0.2-1.0) Aspartate Amino Transf (AST/SGOT) 87 U/L (15-37) H Alanine Aminotransferase (ALT/SGPT) 167 U/L (12-78) H Alkaline Phosphatase 154 U/L (46-116) H Total Protein 7.0 G/DL (6.4-8.2) Albumin 0.9 G/DL (3.4-5.0) L Globulin 6.1 g/dL Albumin/Globulin Ratio 0.1 (1.0-2.7) L Amylase Level 35 U/L (25-115) Lipase 163 U/L (73-393) Current Medications Medications (Trade) Dose Ordered Sig/Clive Route PRN Reason Start Time Stop Time Status Last Admin Dose Admin Acetaminophen (Tylenol) 650 mg Q4H PRN GT Temp >100.5 08/18/20 21:15 09/17/20 21:14 08/18/20 21:36 Amiodarone HCl (Cordarone) 400 mg DAILY@1800 GT 08/10/20 18:00 10/28/20 17:59 08/18/20 17:10 Ascorbic Acid (Vitamin C) 500 mg DAILY ORAL 08/17/20 16:00 09/16/20 15:59 08/19/20 09:15 Atorvastatin Calcium (Lipitor) 10 mg BEDTIME ORAL 08/05/20 21:00 10/22/20 20:59 08/18/20 20:53 Chlorhexidine Gluconate (Jennifer-Hex 2%) 1 applic DAILY@2000 TOPIC 07/17/20 20:00 10/15/20 19:59 08/18/20 20:56 Famotidine (Pepcid) 20 mg Q12HR GT 07/16/20 21:00 10/14/20 20:59 08/19/20 09:15 Finasteride (Proscar) 5 mg DAILY ORAL 07/15/20 09:00 10/13/20 08:59 08/19/20 09:15 Hydralazine HCl (Apresoline) 25 mg Q6H PRN GT SBP above 150 07/24/20 23:30 10/22/20 23:29 07/26/20 05:22 Levetiracetam (Keppra) 1,000 mg Q12HR ORAL 08/12/20 21:00 09/11/20 20:59 08/19/20 09:15 Metoprolol Tartrate (Lopressor) 100 mg Q12HR ORAL 08/13/20 09:00 11/11/20 08:59 08/18/20 20:55 Multivitamins (Multivitamins) 1 tab DAILY ORAL 08/17/20 16:00 09/16/20 15:59 08/19/20 09:15 Piperacillin Sod/ Tazobactam Sod 3.375 gm/Sodium Chloride 110 ml @ 27.5 mls/hr EVERY 8 HOURS IVPB 08/18/20 17:00 08/23/20 16:59 08/19/20 05:51 Sodium Hypochlorite (Dakin's Half Strength) 1 applic DAILY TOPIC 08/15/20 16:00 09/14/20 15:59 08/19/20 09:16 Steve Nelson MD Aug 19, 2020 13:32
--- NOTE | 2020-08-19 14:14 | Surgery Progress Note ---
Surgery Progress Note Subjective Additional Comments lft's noted cxr no n/v pending Objective Last 24 Hour Vital Signs Date Time Temp Pulse Resp B/P (MAP) Pulse Ox O2 Delivery O2 Flow Rate FiO2 08/19/20 12:00 98.0 95 20 105/56 (72) 96 08/19/20 12:00 92 08/19/20 09:00 87 89/52 08/19/20 09:00 Trach Collar 10.0 08/19/20 08:00 97.3 87 20 89/52 (64) 99 08/19/20 08:00 79 08/19/20 04:00 97.5 75 19 107/57 (74) 97 08/19/20 04:00 75 08/19/20 01:56 95 T-Piece 10.0 35 08/19/20 00:00 97.5 109 17 85/50 (62) 97 08/19/20 00:00 81 08/18/20 22:06 98.1 08/18/20 21:00 Trach Collar 10.0 08/18/20 20:55 109 104/56 08/18/20 20:30 98.1 08/18/20 20:00 100.6 109 18 104/56 (72) 97 08/18/20 19:04 96 T-Piece 10.0 35 08/18/20 19:04 99 16 96 T-Piece 8.0 30 08/18/20 16:00 111 08/18/20 15:53 98.0 113 22 98/56 (70) 96 I&O Intake and Output 08/18/20 08/19/20 19:00 07:00 Intake Total 1070 ml Output Total 3400 ml 600 ml Balance -2330 ml -600 ml Intake Free Water 300 ml Tube Feeding 770 ml Output Urine Total 1000 ml 600 ml Other 2400 ml # Bowel Movements 1 1 Dressing: saturated Cardiovascular: RSR Respiratory: decreased breath sounds Abdomen: non-tender, present bowel sounds Extremities: no tenderness, no cyanosis Laboratory Tests Test 08/19/20 10:35 White Blood Count 8.3 K/UL (4.8-10.8) Red Blood Count 3.13 M/UL (4.70-6.10) L Hemoglobin 8.4 G/DL (14.2-18.0) L Hematocrit 28.9 % (42.0-52.0) L Mean Corpuscular Volume 92 FL (80-99) Mean Corpuscular Hemoglobin 26.9 PG (27.0-31.0) L Mean Corpuscular Hemoglobin Concent 29.2 G/DL (32.0-36.0) L Red Cell Distribution Width 15.6 % (11.6-14.8) H Platelet Count 379 K/UL (150-450) Mean Platelet Volume 5.9 FL (6.5-10.1) L Neutrophils (%) (Auto) 80.3 % (45.0-75.0) H Lymphocytes (%) (Auto) 11.8 % (20.0-45.0) L Monocytes (%) (Auto) 5.0 % (1.0-10.0) Eosinophils (%) (Auto) 2.5 % (0.0-3.0) Basophils (%) (Auto) 0.5 % (0.0-2.0) Sodium Level 153 MMOL/L (136-145) H Potassium Level 3.8 MMOL/L (3.5-5.1) Chloride Level 117 MMOL/L (98-107) H Carbon Dioxide Level 31 MMOL/L (21-32) Blood Urea Nitrogen 74 mg/dL (7-18) H Creatinine 1.2 MG/DL (0.55-1.30) Estimat Glomerular Filtration Rate > 60 mL/min (>60) Glucose Level 129 MG/DL (74-106) H Calcium Level 9.1 MG/DL (8.5-10.1) Total Bilirubin 0.3 MG/DL (0.2-1.0) Aspartate Amino Transf (AST/SGOT) 87 U/L (15-37) H Alanine Aminotransferase (ALT/SGPT) 167 U/L (12-78) H Alkaline Phosphatase 154 U/L (46-116) H Total Protein 7.0 G/DL (6.4-8.2) Albumin 0.9 G/DL (3.4-5.0) L Globulin 6.1 g/dL Albumin/Globulin Ratio 0.1 (1.0-2.7) L Amylase Level 35 U/L (25-115) Lipase 163 U/L (73-393) Plan Problems: (1) Decubitus skin ulcer Assessment & Plan: Pt was discharged 08/15/20 and readmitted same day. Pt presented with DIRECTOR OF GRANTS Shunt,Tracheostomy , GT and Multiple Pressure Injuries and con tractures. Small amt exudate that is of Sanguineous mixed with Formula noted from GT. Mild excoriation noted to Peristomal GT site. Full Thickness Sacral Pressure Injury (L)10.5cm x (W)8.3cm x (D)1.5cm, Undermining clockwise 9-2 by 1.3cm @10'oclock. Base of wound is 90% granular 10% necrotic. NO odor noted. Small amt serosanguineous exudate noted.Periwound is erythematous and indurated. No changes in skin temp noted. Full Thickness Pressure Injury Outer L Lower Quadrant of Buttocks.(L)5.5cm x (W)7cm x (D)1.5cm, Undermining clockwise 9-3 by 4.5cm @12o'clock, Tunneled area within base of wound by 5.5cm @ 1-2o'clock. Base of wound is 85% % moist and pink ,15% necrotic at base at undermined area of wound. Bone exposure noted. Small amt serosanguineous exudate noted. Periwound is erythematous and indurated. No odor noted. Full thickness Pressure Injury L Ischium(L)2cm x (W)0.9cm x (D)0.3cm. Base of wound is moist, and pink. Edges are adherent to base of wound. Periwound is maroon and indurated. NO changes in skin temp periwound. NO odor noted. Non-Blanchable erythema without induration noted to R Hip /R trochanteric.. Full Thickness Pressure Injury lateral L Tibia(L)21.5cm x (W)3.5cm x (D)0.2cm. Base of wound is 95% granular,5% necrosis along borders. Edges are adherent to base of wound . Moderate amt sanguineous exudate noted. No odor noted.Periwound skin colour is darker than is normal tone but without erythema or induration. Full thickness Pressure Injury L Heel extending into Plantar aspect of heel(L)8.7cm x (W)6.5cm x(D)0.6cm.Base of wound is 60% beefy granulation,40% necrotic. Bone is palpable. (+) Epibole at proximal borders of wound in close proximity with achilles. Small amt haemopurulent exudate noted. Wound is malodorous. Periwound is dusky and indurated. Full Thickness Pressure Injury Lateral L Foot (L)1.9cm x (W)3.4cm x (D)0.3cm, undermining clockwise 9-3 by 0.2cm @9o'clock. Base of wound is 10% necrotic 90% antonio. Wound is malodorous. Edges are macerate with scattered areas of necrosis along edges. Small amt haemopurulent exudate noted.Periwound is fluctuant and dusky. Full Thickness Pressure Injury distal/lateral L foot(L)1.3cm x (W)3.7cm x (D)0.2cm. Base of wound is 80% soft necrosis,20% moist and pink. edges are macerated. Wound is malodorous. Small amt brown exudate noted . Periwound is dusky and fluctuant. Unstageable Pressure injury dorsal L foot (L)1cm x (W)0.9cm. Base of wound is 100% necrotic. Edges are erythematous and macerated. Periwound without erythema,induration or fluctuance. Full thickness Pressure Injury R Heel including plantar aspect of heel (L)8.7cm x (W)6.5cm x (D)0.6cm. Base of wound is 60% beefy granulation,40% necrotic. Bone exposure at base of wound. Moderate amt haemopurulent exudate. Wound is malodorous. Proximal edges of wound within close proximity with achilles is rolled. Edges are otherwise macerated. Periwound is fluctuant and dusky. Full Thickness Pressure Injury distal/lateral R foot (L)0.5cm x (W)0.6cm. Base of wound is 100% fibrinous slough. Erythematous borders. Periwound without induration or fluctuance. Small amt serous exudate noted. Tx.Plan: Wash GT site with Soap and Water. Pat dry. Apply Moisture Barrier Paste around Gt Daily. Leave open to Air. Cleanse Sacral wound, L buttocks, and L Ischia wounds with Dakin's 0.25% Kristel. Loosely pack wounds with Dakin's moistened Kerlix.Apply Triad Paste periwound. Cover with Optifoam drsgs Daily and prn. Cleanse wound Lateral L Tibia with Dakin's o.25% Kristel. Rinse with Saline. Apply Promogran moistened with Saline. Apply Moisture Barrier Paste along borders. Cover with ABD Pads. Wrap with Kerlix every Mon-Wed-Fri (NOTE: Wound Nurse to Aplpy Promogran) Cleanse wounds L Foot with Dakin's 0.25% Kristel. Apply Dakin's moistened Gauze to each wound. Apply Triad Paste along Borders of each wound. Cover with ABD Pads and wrap with Kerlix Daily and prn. Cleanse R Heel wound with Dakin's 0.25% Kristel. Apply Dakin's Moistened Gauze to wound. Apply Triad Paste Periwound. Cover with ABD Pad. Wrap with Kerlix Daily and prn. Reposition at least every 2hours or as tolerated. Place Pillow Between Knees. Off-load heels with 2 Pillows. APM/TERRIE Mattress overlay. Sacral wound,L Buttocks, L Ischial wounds cleansed with Dakin's and each wound loosely packed with Dakin's moistened Kerlix.Moisture Barrier Paste applied to borders of each wound and each wound covered with Optifoam drsgs. Perianal area noted to be red and excoriated. Moisture Barrier Paste applied to affected area. Drsgs to L tibia, L Heel and R Heel noted to be saturated and malodorous. Both lower ext washed with Chlorhexidine soap prior to providing wound care.Base of wound lateral L Tibia beefy red. Edges are adherent with an area of 5% necrosis distally. Small amt sanguineous exudate No erythema or changes in skin temp periwound. Wound Later L Tibia cleansed with Saline. Promogran applied to base of wound.Moisture Barrier Paste applied along borders. Covered with ABD pad. Wrapped with Kerlix. R and L Heel wounds cleansed Dakin's 0.25% kristel. Dakin's moistened gauze applied to each wound Moisture Barrier Paste applied to borders of each wound and each wound covered with Abd Pads and each heel wrapped with Kerlix drsgs. Skin under tracheal collar assessed and no evidence of skin breakdown noted. Peristomal Gt site is resolving, Skin is moist but pink.No new skin concerns noted. (2) Anemia Assessment & Plan: trend h/h prbc prn (3) UTI (urinary tract infection) (4) Pleural effusion, left Assessment & Plan: Ultrasound used to localize optimal puncture site. Sterile prepping and draping left chest. Local anesthesia with 1% lidocaine. Under real-time ultrasound guidance, puncture pleural space using thoracentesis needle. Stylet removed. Catheter placed to vacuum bottle suction. Total 1700 milliliters of fluid aspirated. Patient tolerated procedure well, without immediate complication. Findings: Followup sonography demonstrates small amount of residual pleural fluid. Impression: Successful ultrasound-guided thoracentesis, yielding 1700 milliliters of fluid Lungs: Hazy left lung attenuation could be due to consolidation, pulmonary edema; correlate with presentation. Retrocardiac atelectasis without or with consolidation. Pleural space: Small-moderate left pleural effusion with passive atelectasis. No pneumothorax. Heart: Unremarkable. No cardiomegaly. Mediastinum: Unremarkable. Bones/joints: No acute abnormality Tubes, lines and devices: Tracheostomy. Right upper extremity PICC tip in the mid SVC. IMPRESSION: 1. Tracheostomy. 2. Right upper extremity PICC tip in the mid SVC. 3. Small-moderate left pleural effusion with passive atelectasis. 4. Hazy left lung attenuation could be due to consolidation, pulmonary edema; correlate with presentation. 5. Retrocardiac atelectasis without or with consolidation. 6. Recommend CT chest with IV contrast to further characterize these findings. plan repeat thora (5) Malfunction of gastrostomy tube Assessment & Plan: DAILY ESTIMATED NEEDS: Needs based on Wounds, pulmonary/ 74.5kg 25-30 kcals/kg 5127-8639 total kcals 1.5-2 g protein/kg 111-149 g total protein 25-30 mL/kg 8655-6168 total fluid mLs NUTRITION DIAGNOSIS: * Swallowing difficulty R/T dysphagia, h/o craniotomy, respiratory failure as evidenced by pt on T-collar, GJ tube dependent. * Increased kcal/prot/micronutrients needs R/T wound healing as evidenced by pt admitted w/ multiple advanced wounds including full thickness wound x 7 and unstageable wounds x 2, refer to WC eval. CURRENT TF:Jevity 1.2 @ 60ml/hr x 24 hrs-> now Glucerna 1.2 ENTERAL NUTRITION RECOMMENDATIONS: Glucerna 1.2 @ 65ml/hr x 24 hrs + Prosource 1pkt TID to provide 1560ml, 1872kcal, 94g+ 33g prot, 1259ml free water * Increase goal rate to 65ml/hr x 24 hrs to better meet est needs * Add Prosource 1pkt TID to meet increased protein needs * HOB over 30 degrees/ water flush 150ml q 6hrs without IVF ADDITIONAL RECOMMENDATIONS: * Calibrated bedscale wt * Wound Care: Con't Vit C 500mg BID, ZnSO4 220mg QD x 10 days add Stevie BID * Monitor BGs, need for carb controlled TF -> now on Glucerna 1.2 * Monitor lytes, replete as needed (6) Acute respiratory failure with hypoxia (7) HCAP (healthcare-associated pneumonia) Deny Westfall Aug 19, 2020 14:14
--- NOTE | 2020-08-19 15:07 | NUR ---
NURSE NOTES:Paged Dr Devlin to update on Sodium level of 153, awaiting response.
[2020-08-19 16:00] VITALS: BP 109/58
[2020-08-19] MEDS ORDERED: Dyna-Hex 2% Top Sol 2oz TOPIC SCH (16:30)
--- NOTE | 2020-08-19 17:10 | NUR ---
NURSE NOTES:bed bath given, new linens placed and wound care performed on all wounds with [facility] wound care nurse.
[2020-08-19] MEDS: Amiodarone 200mg tab GT SCH (18:30)
--- NOTE | 2020-08-19 19:20 | NUR ---
NURSE NOTES: pt report received from Italo Rodgers RN pt opens eyes neuro saunders, un able to follow commands. . pt is on monitoring manager showing NSR 79 HR, no signs symptoms of any abnormalities noted. pt is on trach color showing 97% O2. no signs symptoms of resp distress noted. pt bed is low, locked, armed, call light within reach, bed rails up times 3.
--- NOTE | 2020-08-19 19:42 | NUR ---
NURSE HAND-OFF REPORT: Important Events on Shift:Wounds redressed and cleaned. Patient Status: Stable Diet: Vital @70Ml/HR Pending Orders: Pending Results/Labs: Pending MD notification: Latest Vital Signs: Temperature 97.8 , Pulse 82 , B/P 109 /58 , Respiratory Rate 16 , O2 SAT 95 , Trach Collar, O2 Flow Rate 10.0 . Vital Sign Comment: EKG Rhythm: Sinus Rhythm Rhythm change?: N Notified?: N -Dr. Aubree VALDEZ Response: Message left await call Latest Ramirez Fall Score: 70 Fall Risk: High Risk Safety Measures: Call light Within Reach, Bed Alarm Zone 1, Side Rails Side Rails x3, Bed position Low and Locked. Fall Precautions: Patient Fall Education Report given to Liban Huerta RN.
[2020-08-19 20:00] VITALS: BP 111/56
[2020-08-19] MEDS: Dyna-Hex 2% Top Sol 2oz TOPIC SCH (20:37)
[2020-08-19] MEDS: Atorvastatin 20mg tab ORAL SCH (20:38)
--- NOTE | 2020-08-19 22:58 | General Progress Note ---
Subjective Allergies: Coded Allergies: No Known Allergies (Unverified , 11/02/19) Subjective more awake today appears comfortable tolerating TF Objective Last 24 Hour Vital Signs Date Time Temp Pulse Resp B/P (MAP) Pulse Ox O2 Delivery O2 Flow Rate FiO2 08/19/20 21:00 Trach Collar 10.0 08/19/20 20:38 95 111/56 08/19/20 20:00 93 08/19/20 20:00 98.2 94 20 111/56 (74) 97 08/19/20 19:18 82 16 95 T-Piece 10.0 35 08/19/20 19:18 95 T-Piece 10.0 35 08/19/20 16:00 97.8 107 20 109/58 (75) 96 08/19/20 16:00 99 08/19/20 13:18 98 T-Piece 10.0 35 08/19/20 12:00 98.0 95 20 105/56 (72) 96 08/19/20 12:00 92 08/19/20 09:00 87 89/52 08/19/20 09:00 Trach Collar 10.0 08/19/20 08:00 97.3 87 20 89/52 (64) 99 08/19/20 08:00 79 08/19/20 07:35 97 T-Piece 10.0 35 08/19/20 07:25 85 16 97 T-Piece 10.0 35 08/19/20 04:00 97.5 75 19 107/57 (74) 97 08/19/20 04:00 75 08/19/20 01:56 95 T-Piece 10.0 35 08/19/20 00:00 97.5 109 17 85/50 (62) 97 08/19/20 00:00 81 Intake and Output 08/18/20 08/19/20 19:00 07:00 Intake Total 1070 ml 70 ml Output Total 3400 ml 600 ml Balance -2330 ml -530 ml Intake Free Water 300 ml Tube Feeding 770 ml 70 ml Output Urine Total 1000 ml 600 ml Other 2400 ml # Bowel Movements 1 1 Laboratory Tests 08/19/20 10:35: White Blood Count 8.3, Red Blood Count 3.13L, Hemoglobin 8.4L, Hematocrit 28.9L, Mean Corpuscular Volume 92, Mean Corpuscular Hemoglobin 26.9L, Mean Corpuscular Hemoglobin Concent 29.2L, Red Cell Distribution Width 15.6H, Platelet Count 379, Mean Platelet Volume 5.9L, Neutrophils (%) (Auto) 80.3H, Lymphocytes (%) (Auto) 11.8L, Monocytes (%) (Auto) 5.0, Eosinophils (%) (Auto) 2.5, Basophils (%) (Auto) 0.5, Sodium Level 153H, Potassium Level 3.8, Chloride Level 117H, Carbon Dioxide Level 31, Blood Urea Nitrogen 74H, Creatinine 1.2, Estimat Glomerular Filtration Rate > 60, Glucose Level 129H, Calcium Level 9.1, Total Bilirubin 0.3, Aspartate Amino Transf (AST/SGOT) 87H, Alanine Aminotransferase (ALT/SGPT) 167H, Alkaline Phosphatase 154H, Total Protein 7.0, Albumin 0.9L, Globulin 6.1, Albumin/Globulin Ratio 0.1L, Amylase Level 35, Lipase 163 Height (Feet): 5 Height (Inches): 4.00 Weight (Pounds): 171 Objective Eldely WM NCAT (+) trach , T tube Coarse BS RRR abd soft (+) GT ext no edema Assessment/Plan Status: stable, progressing Assessment/Plan: Assessment - UGIB - resolved - Anemia, s/p transfusion - h/o PUD - resp failure, s/p trach - dysphagia, s/p PEG - atrial fibrillation - h/o DVT - hypernatremia - loose BM - decubitus ulcers Recommendations - anticoagulation - H2B BID indefinitely - vital AF - increase rate - protein supplements - increased to TID - Add MVI - Add Vitamin C - D/c Zinc - has had over 20 days - free water - follow H&H - monitor Akiko Yu MD Aug 19, 2020 22:58
[2020-08-20] VITALS: BP 93/47
--- NOTE | 2020-08-20 01:17 | Cardiology Progress Note ---
Subjective DATE OF SERVICE: Aug 19, 2020 s/p 1700cc thorocentesis last week, and 1200cc L thorocentesis yesterday. Now has positive blood, urine, and sputum cultures with gram negative pathogen. No new bleeding, since back on anticoagulation now following GI clearance. BP parameters stabilized. Monitor: AFib/flutter persisting still with increased ventricular rates now. Objective Last 24 Hour Vital Signs Date Time Temp Pulse Resp B/P (MAP) Pulse Ox O2 Delivery O2 Flow Rate FiO2 08/20/20 00:48 97 T-Piece 10.0 35 08/19/20 21:00 Trach Collar 10.0 08/19/20 20:38 95 111/56 08/19/20 20:00 93 08/19/20 20:00 98.2 94 20 111/56 (74) 97 08/19/20 19:18 82 16 95 T-Piece 10.0 35 08/19/20 19:18 95 T-Piece 10.0 35 08/19/20 16:00 97.8 107 20 109/58 (75) 96 08/19/20 16:00 99 08/19/20 13:18 98 T-Piece 10.0 35 08/19/20 12:00 98.0 95 20 105/56 (72) 96 08/19/20 12:00 92 08/19/20 09:00 87 89/52 08/19/20 09:00 Trach Collar 10.0 08/19/20 08:00 97.3 87 20 89/52 (64) 99 08/19/20 08:00 79 08/19/20 07:35 97 T-Piece 10.0 35 08/19/20 07:25 85 16 97 T-Piece 10.0 35 08/19/20 04:00 97.5 75 19 107/57 (74) 97 08/19/20 04:00 75 08/19/20 01:56 95 T-Piece 10.0 35 ROS: unchanged from 07/14/20 HEENT: Thick Trach secretions RHYTHM: NSR, ST, PACs, Afib LUNGS: bilateral rhonchi CARDIAC: normal S1 and S2, rapid rate, arrhythmia ABDOMEN: normal bowel sounds, soft, G-Tube intact EXTREMITIES: normal range of motion, non-tender, trace edema, other - withdrawn Laboratory Tests Test 08/19/20 10:35 White Blood Count 8.3 K/UL (4.8-10.8) Red Blood Count 3.13 M/UL (4.70-6.10) L Hemoglobin 8.4 G/DL (14.2-18.0) L Hematocrit 28.9 % (42.0-52.0) L Mean Corpuscular Volume 92 FL (80-99) Mean Corpuscular Hemoglobin 26.9 PG (27.0-31.0) L Mean Corpuscular Hemoglobin Concent 29.2 G/DL (32.0-36.0) L Red Cell Distribution Width 15.6 % (11.6-14.8) H Platelet Count 379 K/UL (150-450) Mean Platelet Volume 5.9 FL (6.5-10.1) L Neutrophils (%) (Auto) 80.3 % (45.0-75.0) H Lymphocytes (%) (Auto) 11.8 % (20.0-45.0) L Monocytes (%) (Auto) 5.0 % (1.0-10.0) Eosinophils (%) (Auto) 2.5 % (0.0-3.0) Basophils (%) (Auto) 0.5 % (0.0-2.0) Sodium Level 153 MMOL/L (136-145) H Potassium Level 3.8 MMOL/L (3.5-5.1) Chloride Level 117 MMOL/L (98-107) H Carbon Dioxide Level 31 MMOL/L (21-32) Blood Urea Nitrogen 74 mg/dL (7-18) H Creatinine 1.2 MG/DL (0.55-1.30) Estimat Glomerular Filtration Rate > 60 mL/min (>60) Glucose Level 129 MG/DL (74-106) H Calcium Level 9.1 MG/DL (8.5-10.1) Total Bilirubin 0.3 MG/DL (0.2-1.0) Aspartate Amino Transf (AST/SGOT) 87 U/L (15-37) H Alanine Aminotransferase (ALT/SGPT) 167 U/L (12-78) H Alkaline Phosphatase 154 U/L (46-116) H Total Protein 7.0 G/DL (6.4-8.2) Albumin 0.9 G/DL (3.4-5.0) L Globulin 6.1 g/dL Albumin/Globulin Ratio 0.1 (1.0-2.7) L Amylase Level 35 U/L (25-115) Lipase 163 U/L (73-393) Microbiology Date/Time Source Procedure Growth Status 08/17/20 21:50 Sputum Induced Gram Stain - Final Resulted 08/17/20 21:50 Sputum Culture - Preliminary Gram Negative Bacillus 1 Resulted 08/17/20 21:50 Blood Blood Culture - Preliminary Resulted 08/17/20 21:45 Indwelling Cath Urine Culture - Preliminary Gram Negative Jefry Resulted 08/17/20 21:25 Blood Blood Culture - Preliminary Gram Negative Jefry Resulted Assessment/Plan Assessment/Plan Healthcare associated PNA Gram negative bacteremia - UTI Paroxysmal atrial fibrillation/flutter Paroxysmal atrial ectopy 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 Dyslipidemia on high dose statin - now dose adjusted Dehydration/hypernatremia Severe protein-calorie malnutrition Multiple wounds Anemia - s/p tx Pleural effusion - s/p left thorocentesis Titrate beta blockade dose as tolerated by BP; may have to digitalize. Abx per ID; await final cultures Resp support Cardiac monitoring Statin dose adjusted Amiodarone at increased dose to maintain sinus rhythm. Free water replacement as needed; off IVF for now. Diuresis based on daily assessments of volume status. Continue anticoagulation with caution due to bleeding risk Awaiting SNF Dylan Sparks MD Aug 20, 2020 01:16
[2020-08-20 04:00] VITALS: BP 104/58
[2020-08-20] MEDS: Piperacillin/Tazobactam 3.375 GM in NS 110 ML IVPB SCH ×3 (06:01→22:23)
--- NOTE | 2020-08-20 07:10 | NUR ---
NURSE NOTES:Handoff received from Bradley Louie RN. Patient received resting in bed, no acute signs of distress noted. Patient has trach collar connected to 10L with FI02 of 35% saturating at 100%. Patient is non-verbal but opens eyes spontaneously. Patient has R Upper arm PICC running D5W. G tube is patent and running Vital A.F @70ML.HR. [place] is also patent and draining to gravity. Multiple skin issues noted. Patient is placed on Contact precautions for VRE, fall and aspiration precautions with bed in the low and locked position, call light at bedside, HOB elevated to 30' bed in the low and locked position, bed alarm on. will follow plan of care.
--- NOTE | 2020-08-20 07:20 | NUR ---
NURSE HAND-OFF REPORT: Important Events on Shift:[na] Patient Status: [unchanged] Diet: [per doctors order] Pending Orders: [na] Pending Results/Labs:[na] Pending MD notification:[na] Latest Vital Signs: Temperature 97.7 , Pulse 82 , B/P 104 /58 , Respiratory Rate 18 , O2 SAT 97 , Trach Collar, O2 Flow Rate 10.0 . Vital Sign Comment: [stable] EKG Rhythm: Sinus Rhythm Rhythm change?: N MD Notified?: N -Dr. Aubree VALDEZ Response: Message left await call Latest Ramirez Fall Score: 70 Fall Risk: High Risk Safety Measures: Call light Within Reach, Bed Alarm Zone 1, Side Rails Side Rails x3, Bed position Low and Locked. Fall Precautions: Patient Fall Education Report given to [Italo Rodgers RN].
[2020-08-20 07:38] LABS: ANION GAP 8 mmol/L (5-15); BLOOD UREA NITROGEN 69 mg/dL (7-18); CALCIUM 8.7 MG/DL (8.5-10.1); CARBON DIOXIDE 29 MMOL/L (21-32); CHLORIDE 115 MMOL/L (98-107); CREATININE 1.1 MG/DL (0.55-1.30); POTASSIUM 3.6 MMOL/L (3.5-5.1); SODIUM 152 MMOL/L (136-145)
[2020-08-20 08:00] VITALS: BP 109/63
[2020-08-20] MEDS: Ascorbic Acid 500mg tab ORAL SCH (08:19)
[2020-08-20] MEDS: Metoprolol Tartrate 100mg tab ORAL SCH ×2 (08:20→20:56)
[2020-08-20] MEDS: Dakin's 0.25% (Half Strength) 16oz TOPIC SCH (08:20)
--- NOTE | 2020-08-20 09:19 | NUR ---
*-*DISCHARGED PLANNING*-* PATIENT HAS BEEN REFERRED TO: [facility] P: [phone] S/W R[facility], CANNOT ACCOMMODATE PATIENT, OXYGEN IS TOO HIGH. [facility] P: [phone] S/W [facility], CANNOT ACCEPT ANY ADMISSIONS, FACILITY ON LOCK DOWN. [facility] P: [phone] S/W [facility], ADMISSIONS NOT AVAILABLE YET.
--- NOTE | 2020-08-20 10:07 | Pulmonology Progress Note ---
Subjective ROS Limited/Unobtainable: Yes Allergies: Coded Allergies: No Known Allergies (Unverified , 11/02/19) All Systems: reviewed and negative except above Subjective CARE NOTED nonverbal on oxygen at 35% bcx+ s/p tap Objective Last 24 Hour Vital Signs Date Time Temp Pulse Resp B/P (MAP) Pulse Ox O2 Delivery O2 Flow Rate FiO2 08/20/20 08:25 Trach Collar 10.0 08/20/20 08:20 74 109/63 08/20/20 08:00 96.8 74 21 109/63 (78) 98 08/20/20 07:54 77 16 99 T-Piece 10.0 35 08/20/20 07:54 98 T-Piece 10.0 35 08/20/20 04:00 77 08/20/20 04:00 97.7 82 18 104/58 (73) 97 08/20/20 00:48 97 T-Piece 10.0 35 08/20/20 00:00 75 08/20/20 00:00 97.5 78 16 93/47 (62) 97 08/19/20 21:00 Trach Collar 10.0 08/19/20 20:38 95 111/56 08/19/20 20:00 93 08/19/20 20:00 98.2 94 20 111/56 (74) 97 08/19/20 19:18 82 16 95 T-Piece 10.0 35 08/19/20 19:18 95 T-Piece 10.0 35 08/19/20 16:00 97.8 107 20 109/58 (75) 96 08/19/20 16:00 99 08/19/20 13:18 98 T-Piece 10.0 35 08/19/20 12:00 98.0 95 20 105/56 (72) 96 08/19/20 12:00 92 Intake and Output 08/19/20 08/20/20 19:00 07:00 Intake Total 1441.25 ml 1627.5 ml Balance 1441.25 ml 1627.5 ml Intake Free Water 320 ml 100 ml IV Total 281.25 ml 757.5 ml Tube Feeding 840 ml 770 ml Objective WDWN NAD awake chronically ill moderate breath sounds bilaterally without rhonchi [id number] NABS nontender GT no CCE nonfocal weak wounds noted Microbiology Date/Time Source Procedure Growth Status 08/17/20 21:50 Sputum Induced Gram Stain - Final Resulted 08/17/20 21:50 Sputum Culture - Preliminary Gram Negative Bacillus 1 Gram Negative Bacillus 2 Resulted 08/17/20 21:50 Blood Blood Culture - Preliminary Resulted 08/17/20 21:45 Indwelling Cath Urine Culture - Preliminary Gram Negative Jefry Resulted 08/17/20 21:25 Blood Blood Culture - Preliminary Gram Negative Jefry Resulted Laboratory Tests 08/19/20 10:35: White Blood Count 8.3, Red Blood Count 3.13L, Hemoglobin 8.4L, Hematocrit 28.9L, Mean Corpuscular Volume 92, Mean Corpuscular Hemoglobin 26.9L, Mean Corpuscular Hemoglobin Concent 29.2L, Red Cell Distribution Width 15.6H, Platelet Count 379, Mean Platelet Volume 5.9L, Neutrophils (%) (Auto) 80.3H, Lymphocytes (%) (Auto) 11.8L, Monocytes (%) (Auto) 5.0, Eosinophils (%) (Auto) 2.5, Basophils (%) (Auto) 0.5, Sodium Level 153H, Potassium Level 3.8, Chloride Level 117H, Carbon Dioxide Level 31, Blood Urea Nitrogen 74H, Creatinine 1.2, Estimat Glomerular Filtration Rate > 60, Glucose Level 129H, Calcium Level 9.1, Total Bilirubin 0.3, Aspartate Amino Transf (AST/SGOT) 87H, Alanine Aminotransferase (ALT/SGPT) 167H, Alkaline Phosphatase 154H, Total Protein 7.0, Albumin 0.9L, Globulin 6.1, Albumin/Globulin Ratio 0.1L, Amylase Level 35, Lipase 163 08/20/20 05:14: Sodium Level 152H, Potassium Level 3.6, Chloride Level 115H, Carbon Dioxide Level 29, Blood Urea Nitrogen 69H, Creatinine 1.1, Estimat Glomerular Filtration Rate > 60, Glucose Level 125H, Calcium Level 8.7, Anion Gap 8 Current Medications Medications (Trade) Dose Ordered Sig/Clive Route PRN Reason Start Time Stop Time Status Last Admin Dose Admin Acetaminophen (Tylenol) 650 mg Q4H PRN GT Temp >100.5 08/18/20 21:15 09/17/20 21:14 08/18/20 21:36 Amiodarone HCl (Cordarone) 400 mg DAILY@1800 GT 08/10/20 18:00 10/28/20 17:59 08/19/20 18:30 Ascorbic Acid (Vitamin C) 500 mg DAILY ORAL 08/17/20 16:00 09/16/20 15:59 08/20/20 08:19 Atorvastatin Calcium (Lipitor) 10 mg BEDTIME ORAL 08/05/20 21:00 10/22/20 20:59 08/19/20 20:38 Chlorhexidine Gluconate (Jennifer-Hex 2%) 1 applic DAILY@2000 TOPIC 07/17/20 20:00 10/15/20 19:59 08/19/20 20:37 Dextrose 1,000 ml @ 75 mls/hr [id number] IV 08/19/20 15:15 09/18/20 15:14 08/20/20 05:59 Famotidine (Pepcid) 20 mg Q12HR GT 07/16/20 21:00 10/14/20 20:59 08/20/20 08:20 Finasteride (Proscar) 5 mg DAILY ORAL 07/15/20 09:00 10/13/20 08:59 08/20/20 08:20 Hydralazine HCl (Apresoline) 25 mg Q6H PRN GT SBP above 150 07/24/20 23:30 10/22/20 23:29 07/26/20 05:22 Levetiracetam (Keppra) 1,000 mg Q12HR ORAL 08/12/20 21:00 09/11/20 20:59 08/20/20 08:23 Metoprolol Tartrate (Lopressor) 100 mg Q12HR ORAL 08/13/20 09:00 11/11/20 08:59 08/20/20 08:20 Multivitamins (Multivitamins) 1 tab DAILY ORAL 08/17/20 16:00 09/16/20 15:59 08/20/20 08:20 Piperacillin Sod/ Tazobactam Sod 3.375 gm/Sodium Chloride 110 ml @ 27.5 mls/hr EVERY 8 HOURS IVPB 08/18/20 17:00 08/23/20 16:59 08/20/20 06:01 Sodium Hypochlorite (Dakin's Half Strength) 1 applic DAILY TOPIC 08/19/20 16:30 09/18/20 16:29 2/3/21 08:20 Assessment/Plan Assessment/Plan Impression: Healthcare-associated pneumonia Acute respiratory failure with hypoxia Tracheostomy status Pleural effusion, left-recurrent s/p tap Decubitus ulcers Urinary tract infection Anemia S/p previous Craniotomy, RCA occlusion, 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
--- NOTE | 2020-08-20 10:45 | Infectious Diseases Prog Note ---
Assessment/Plan Assessment/Plan antibiotics : none A 1. gram negative pneumonia. COVID19 test is negative. 2. gram negative sepsis 3. gram negative UTI 4. Hypertension. 5. Atrial fibrillation 6. respiratory failure s/p tracheostomy 7. pleural effusion s/p thoracentesis P 1. continue zosyn 2. will follow up cultures Subjective ROS Limited/Unobtainable: Yes Allergies: Coded Allergies: No Known Allergies (Unverified , 11/02/19) Objective Last 24 Hour Vital Signs Date Time Temp Pulse Resp B/P (MAP) Pulse Ox O2 Delivery O2 Flow Rate FiO2 08/20/20 08:25 Trach Collar 10.0 08/20/20 08:20 74 109/63 08/20/20 08:00 96.8 74 21 109/63 (78) 98 08/20/20 08:00 78 08/20/20 07:54 77 16 99 T-Piece 10.0 35 08/20/20 07:54 98 T-Piece 10.0 35 08/20/20 04:00 77 08/20/20 04:00 97.7 82 18 104/58 (73) 97 08/20/20 00:48 97 T-Piece 10.0 35 08/20/20 00:00 75 08/20/20 00:00 97.5 78 16 93/47 (62) 97 08/19/20 21:00 Trach Collar 10.0 08/19/20 20:38 95 111/56 08/19/20 20:00 93 08/19/20 20:00 98.2 94 20 111/56 (74) 97 08/19/20 19:18 82 16 95 T-Piece 10.0 35 08/19/20 19:18 95 T-Piece 10.0 35 08/19/20 16:00 97.8 107 20 109/58 (75) 96 08/19/20 16:00 99 08/19/20 13:18 98 T-Piece 10.0 35 08/19/20 12:00 98.0 95 20 105/56 (72) 96 08/19/20 12:00 92 Height (Feet): 5 Height (Inches): 4.00 Weight (Pounds): 171 HEENT: status post trach Respiratory/Chest: rhonchi - bilaterally Cardiovascular: normal rate, regular rhythm, no gallop/murmur Abdomen: soft, non tender, other - GT Extremities: no edema Microbiology Date/Time Source Procedure Growth Status 08/17/20 21:50 Sputum Induced Gram Stain - Final Resulted 08/17/20 21:50 Sputum Culture - Preliminary Gram Negative Bacillus 1 Gram Negative Bacillus 2 Resulted 08/17/20 21:50 Blood Blood Culture - Preliminary Resulted 08/17/20 21:45 Indwelling Cath Urine Culture - Preliminary Gram Negative Jefry Resulted 08/17/20 21:25 Blood Blood Culture - Preliminary Gram Negative Jefry Resulted Laboratory Tests Test 08/20/20 05:14 Sodium Level 152 MMOL/L (136-145) H Potassium Level 3.6 MMOL/L (3.5-5.1) Chloride Level 115 MMOL/L (98-107) H Carbon Dioxide Level 29 MMOL/L (21-32) Anion Gap 8 mmol/L (5-15) Blood Urea Nitrogen 69 mg/dL (7-18) H Creatinine 1.1 MG/DL (0.55-1.30) Estimat Glomerular Filtration Rate > 60 mL/min (>60) Glucose Level 125 MG/DL (74-106) H Calcium Level 8.7 MG/DL (8.5-10.1) Current Medications Medications (Trade) Dose Ordered Sig/Clive Route PRN Reason Start Time Stop Time Status Last Admin Dose Admin Acetaminophen (Tylenol) 650 mg Q4H PRN GT Temp >100.5 08/18/20 21:15 09/17/20 21:14 08/18/20 21:36 Amiodarone HCl (Cordarone) 400 mg DAILY@1800 GT 08/10/20 18:00 10/28/20 17:59 08/19/20 18:30 Ascorbic Acid (Vitamin C) 500 mg DAILY ORAL 08/17/20 16:00 09/16/20 15:59 08/20/20 08:19 Atorvastatin Calcium (Lipitor) 10 mg BEDTIME ORAL 08/05/20 21:00 10/22/20 20:59 08/19/20 20:38 Chlorhexidine Gluconate (Jennifer-Hex 2%) 1 applic DAILY@2000 TOPIC 07/17/20 20:00 10/15/20 19:59 08/19/20 20:37 Dextrose 1,000 ml @ 75 mls/hr [id number] IV 08/19/20 15:15 09/18/20 15:14 08/20/20 05:59 Famotidine (Pepcid) 20 mg Q12HR GT 07/16/20 21:00 10/14/20 20:59 08/20/20 08:20 Finasteride (Proscar) 5 mg DAILY ORAL 07/15/20 09:00 10/13/20 08:59 08/20/20 08:20 Hydralazine HCl (Apresoline) 25 mg Q6H PRN GT SBP above 150 07/24/20 23:30 10/22/20 23:29 07/26/20 05:22 Levetiracetam (Keppra) 1,000 mg Q12HR ORAL 08/12/20 21:00 09/11/20 20:59 08/20/20 08:23 Metoprolol Tartrate (Lopressor) 100 mg Q12HR ORAL 08/13/20 09:00 11/11/20 08:59 08/20/20 08:20 Multivitamins (Multivitamins) 1 tab DAILY ORAL 08/17/20 16:00 09/16/20 15:59 08/20/20 08:20 Piperacillin Sod/ Tazobactam Sod 3.375 gm/Sodium Chloride 110 ml @ 27.5 mls/hr EVERY 8 HOURS IVPB 08/18/20 17:00 08/23/20 16:59 08/20/20 06:01 Sodium Hypochlorite (Dakin's Half Strength) 1 applic DAILY TOPIC 08/19/20 16:30 09/18/20 16:29 08/20/20 08:20 Kritsie Reina MD Aug 20, 2020 10:45
[2020-08-20 12:00] VITALS: BP 108/73
--- NOTE | 2020-08-20 12:51 | Surgery Progress Note ---
Surgery Progress Note Subjective Additional Comments dressings are going well wounds are actually showing good improvement no drainage min necrotic tissue remains Objective Last 24 Hour Vital Signs Date Time Temp Pulse Resp B/P (MAP) Pulse Ox O2 Delivery O2 Flow Rate FiO2 08/20/20 12:00 98.7 67 20 108/73 (85) 96 08/20/20 08:25 Trach Collar 10.0 08/20/20 08:20 74 109/63 08/20/20 08:00 96.8 74 21 109/63 (78) 98 08/20/20 08:00 78 08/20/20 07:54 77 16 99 T-Piece 10.0 35 08/20/20 07:54 98 T-Piece 10.0 35 08/20/20 04:00 77 08/20/20 04:00 97.7 82 18 104/58 (73) 97 08/20/20 00:48 97 T-Piece 10.0 35 08/20/20 00:00 75 08/20/20 00:00 97.5 78 16 93/47 (62) 97 08/19/20 21:00 Trach Collar 10.0 08/19/20 20:38 95 111/56 08/19/20 20:00 93 08/19/20 20:00 98.2 94 20 111/56 (74) 97 08/19/20 19:18 82 16 95 T-Piece 10.0 35 08/19/20 19:18 95 T-Piece 10.0 35 08/19/20 16:00 97.8 107 20 109/58 (75) 96 08/19/20 16:00 99 08/19/20 13:18 98 T-Piece 10.0 35 I&O Intake and Output 08/19/20 08/20/20 19:00 07:00 Intake Total 1441.25 ml 1627.5 ml Balance 1441.25 ml 1627.5 ml Intake Free Water 320 ml 100 ml IV Total 281.25 ml 757.5 ml Tube Feeding 840 ml 770 ml Dressing: saturated Cardiovascular: RSR Respiratory: decreased breath sounds Abdomen: soft, flat, non-tender, present bowel sounds Extremities: other Laboratory Tests Test 08/20/20 05:14 Sodium Level 152 MMOL/L (136-145) H Potassium Level 3.6 MMOL/L (3.5-5.1) Chloride Level 115 MMOL/L (98-107) H Carbon Dioxide Level 29 MMOL/L (21-32) Anion Gap 8 mmol/L (5-15) Blood Urea Nitrogen 69 mg/dL (7-18) H Creatinine 1.1 MG/DL (0.55-1.30) Estimat Glomerular Filtration Rate > 60 mL/min (>60) Glucose Level 125 MG/DL (74-106) H Calcium Level 8.7 MG/DL (8.5-10.1) Plan Problems: (1) Decubitus skin ulcer Assessment & Plan: Pt was discharged 08/15/20 and readmitted same day. 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 Small amt exudate that is of Sanguineous mixed with Formula noted from GT. Mild excoriation noted to Peristomal GT site. Full Thickness Sacral Pressure Injury (L)10.5cm x (W)8.3cm x (D)1.5cm, Undermining clockwise 9-2 by 1.3cm @10'oclock. Base of wound is 90% granular 10% necrotic. NO odor noted. Small amt serosanguineous exudate noted.Periwound is erythematous and indurated. No changes in skin temp noted. Full Thickness Pressure Injury Outer L Lower Quadrant of Buttocks.(L)5.5cm x (W)7cm x (D)1.5cm, Undermining clockwise 9-3 by 4.5cm @12o'clock, Tunneled area within base of wound by 5.5cm @ 1-2o'clock. Base of wound is 85% % moist and pink ,15% necrotic at base at undermined area of wound. Bone exposure noted. Small amt serosanguineous exudate noted. Periwound is erythematous and indurated. No odor noted. Full thickness Pressure Injury L Ischium(L)2cm x (W)0.9cm x (D)0.3cm. Base of wound is moist, and pink. Edges are adherent to base of wound. Periwound is maroon and indurated. NO changes in skin temp periwound. NO odor noted. Non-Blanchable erythema without induration noted to R Hip /R trochanteric.. Full Thickness Pressure Injury lateral L Tibia(L)21.5cm x (W)3.5cm x (D)0.2cm. Base of wound is 95% granular,5% necrosis along borders. Edges are adherent to base of wound . Moderate amt sanguineous exudate noted. No odor noted.Periwound skin colour is darker than is normal tone but without erythema or induration. Full thickness Pressure Injury L Heel extending into Plantar aspect of heel(L)8.7cm x (W)6.5cm x(D)0.6cm.Base of wound is 60% beefy granulation,40% necrotic. Bone is palpable. (+) Epibole at proximal borders of wound in close proximity with achilles. Small amt haemopurulent exudate noted. Wound is malodorous. Periwound is dusky and indurated. Full Thickness Pressure Injury Lateral L Foot (L)1.9cm x (W)3.4cm x (D)0.3cm, undermining clockwise 9-3 by 0.2cm @9o'clock. Base of wound is 10% necrotic 90% antonio. Wound is malodorous. Edges are macerate with scattered areas of necrosis along edges. Small amt haemopurulent exudate noted.Periwound is fluctuant and dusky. Full Thickness Pressure Injury distal/lateral L foot(L)1.3cm x (W)3.7cm x (D)0.2cm. Base of wound is 80% soft necrosis,20% moist and pink. edges are macerated. Wound is malodorous. Small amt brown exudate noted . Periwound is dusky and fluctuant. Unstageable Pressure injury dorsal L foot (L)1cm x (W)0.9cm. Base of wound is 100% necrotic. Edges are erythematous and macerated. Periwound without erythema,induration or fluctuance. Full thickness Pressure Injury R Heel including plantar aspect of heel (L)8.7cm x (W)6.5cm x (D)0.6cm. Base of wound is 60% beefy granulation,40% necrotic. Bone exposure at base of wound. Moderate amt haemopurulent exudate. Wound is malodorous. Proximal edges of wound within close proximity with achilles is rolled. Edges are otherwise macerated. Periwound is fluctuant and dusky. Full Thickness Pressure Injury distal/lateral R foot (L)0.5cm x (W)0.6cm. Base of wound is 100% fibrinous slough. Erythematous borders. Periwound without induration or fluctuance. Small amt serous exudate noted. Tx.Plan: Wash GT site with Soap and Water. Pat dry. Apply Moisture Barrier Paste around Gt Daily. Leave open to Air. Cleanse Sacral wound, L buttocks, and L Ischia wounds with Dakin's 0.25% Kristel. Loosely pack wounds with Dakin's moistened Kerlix.Apply Triad Paste periwound. Cover with Optifoam drsgs Daily and prn. Cleanse wound Lateral L Tibia with Dakin's o.25% Kristel. Rinse with Saline. Apply Promogran moistened with Saline. Apply Moisture Barrier Paste along borders. Cover with ABD Pads. Wrap with Kerlix every Mon-Wed-Fri (NOTE: Wound Nurse to Aplpy Promogran) Cleanse wounds L Foot with Dakin's 0.25% Kristel. Apply Dakin's moistened Gauze to each wound. Apply Triad Paste along Borders of each wound. Cover with ABD Pads and wrap with Kerlix Daily and prn. Cleanse R Heel wound with Dakin's 0.25% Kristel. Apply Dakin's Moistened Gauze to wound. Apply Triad Paste Periwound. Cover with ABD Pad. Wrap with Kerlix Daily and prn. Reposition at least every 2hours or as tolerated. Place Pillow Between Knees. Off-load heels with 2 Pillows. APM/TERRIE Mattress overlay. Sacral wound,L Buttocks, L Ischial wounds cleansed with Dakin's and each wound loosely packed with Dakin's moistened Kerlix.Moisture Barrier Paste applied to borders of each wound and each wound covered with Optifoam drsgs. Perianal area noted to be red and excoriated. Moisture Barrier Paste applied to affected area. Drsgs to L tibia, L Heel and R Heel noted to be saturated and malodorous. Both lower ext washed with Chlorhexidine soap prior to providing wound care.Base of wound lateral L Tibia beefy red. Edges are adherent with an area of 5% necrosis distally. Small amt sanguineous exudate No erythema or changes in skin temp periwound. Wound Later L Tibia cleansed with Saline. Promogran applied to base of wound.Moisture Barrier Paste applied along borders. Covered with ABD pad. Wra pped with Kerlix. R and L Heel wounds cleansed Dakin's 0.25% kristel. Dakin's moistened gauze applied to each wound Moisture Barrier Paste applied to borders of each wound and each wound covered with Abd Pads and each heel wrapped with Kerlix drsgs. Skin under tracheal collar assessed and no evidence of skin breakdown noted. Peristomal Gt site is resolving, Skin is moist but pink.No new skin concerns noted. (2) Anemia Assessment & Plan: trend h/h prbc prn (3) UTI (urinary tract infection) (4) Pleural effusion, left Assessment & Plan: Ultrasound used to localize optimal puncture site. Sterile prepping and draping left chest. Local anesthesia with 1% lidocaine. Under real-time ultrasound guidance, puncture pleural space using thoracentesis needle. Stylet removed. Catheter placed to vacuum bottle suction. Total 1700 milliliters of fluid aspirated. Patient tolerated procedure well, without immediate complication. Findings: Followup sonography demonstrates small amount of residual pleural fluid. Impression: Successful ultrasound-guided thoracentesis, yielding 1700 milliliters of fluid Lungs: Hazy left lung attenuation could be due to consolidation, pulmonary edema; correlate with presentation. Retrocardiac atelectasis without or with consolidation. Pleural space: Small-moderate left pleural effusion with passive atelectasis. No pneumothorax. Heart: Unremarkable. No cardiomegaly. Mediastinum: Unremarkable. Bones/joints: No acute abnormality Tubes, lines and devices: Tracheostomy. Right upper extremity PICC tip in the mid SVC. IMPRESSION: 1. Tracheostomy. 2. Right upper extremity PICC tip in the mid SVC. 3. Small-moderate left pleural effusion with passive atelectasis. 4. Hazy left lung attenuation could be due to consolidation, pulmonary edema; correlate with presentation. 5. Retrocardiac atelectasis without or with consolidation. 6. Recommend CT chest with IV contrast to further characterize these findings. plan repeat thora (5) Malfunction of gastrostomy tube Assessment & Plan: DAILY ESTIMATED NEEDS: Needs based on Wounds, pulmonary/ 74.5kg 25-30 kcals/kg 9876-8587 total kcals 1.5-2 g protein/kg 111-149 g total protein 25-30 mL/kg 8047-4380 total fluid mLs NUTRITION DIAGNOSIS: * Swallowing difficulty R/T dysphagia, h/o craniotomy, respiratory failure as evidenced by pt on T-collar, GJ tube dependent. * Increased kcal/prot/micronutrients needs R/T wound healing as evidenced by pt admitted w/ multiple advanced wounds including full thickness wound x 7 and unstageable wounds x 2, refer to WC eval. CURRENT TF:Jevity 1.2 @ 60ml/hr x 24 hrs-> now Glucerna 1.2 ENTERAL NUTRITION RECOMMENDATIONS: Glucerna 1.2 @ 65ml/hr x 24 hrs + Prosource 1pkt TID to provide 1560ml, 1872kcal, 94g+ 33g prot, 1259ml free water * Increase goal rate to 65ml/hr x 24 hrs to better meet est needs * Add Prosource 1pkt TID to meet increased protein needs * HOB over 30 degrees/ water flush 150ml q 6hrs without IVF ADDITIONAL RECOMMENDATIONS: * Calibrated bedscale wt * Wound Care: Con't Vit C 500mg BID, ZnSO4 220mg QD x 10 days add Stevie BID * Monitor BGs, need for carb controlled TF -> now on Glucerna 1.2 * Monitor lytes, replete as needed (6) Acute respiratory failure with hypoxia (7) HCAP (healthcare-associated pneumonia) Deny Westfall Aug 20, 2020 12:51
--- NOTE | 2020-08-20 13:15 | NUR ---
NURSE NOTES:Called and spoke to patient decision maker Carole Narendra to get consent for PICC line as previous consent is from last month. Carole consented to Peripherally inserted central catheter with no questions at this time. Consent verified with second RN Ralp via telephone consent.
[2020-08-20] MEDS ORDERED: Lidocaine 1% Plain 30 ml INJ PRN (13:32)
[2020-08-20] MEDS ORDERED: Heparin1,000 units/500ml Premix(Conc:2 units/ml) INJ PRN (13:33)
--- NOTE | 2020-08-20 14:38 | NUR ---
RADIOLOGY NOTE: LEFT UPPER EXTREMITY PICC LINE PLACEMENT BY DR. VICTORINO HIGGINS AT 1400 HRS. FA
--- NOTE | 2020-08-20 15:43 | Brief Operative Note ---
Immediate Post Operative Note Operative Note Pre-op Diagnosis: needs IV access Procedure: PICC Post-op Diagnosis: same as pre-op Surgeon: Jeremías Edmonds Specimen: none Complications: none Condition: unstable Fluids: none Implant(s) used?: No Marty Edmonds MD Aug 20, 2020 15:43
--- NOTE | 2020-08-20 15:50 | Diagnostic Imaging Report ---
Indications: Needs long-term IV access Technique: Ultrasound confirms patent compressible left basilic vein. Total sterile technique, including sterile probe cover and sterile gel, hat, mask, sterile gown, large sterile drape, and preparation with 2% chlorhexidine utilized. Local anesthesia with 1% lidocaine. Under real-time ultrasound guidance, puncture basilic vein using 21-gauge needle, documented and archived, passage 0.018 guidewire under direct fluoroscopy, which was used to determine appropriate catheter length, exchange for 4 Lao peel-away sheath. 4 Lao Bard dual-lumen power PICC cut to 42 cm. It was inserted through the peel-away sheath. Peel-away sheath and guidewire removed. Catheter fixed to the skin. Both catheter ports aspirated and flushed. Patient tolerated procedure well, without immediate complication. Digital radiograph documents satisfactory catheter tip position, at the cavoatrial junction. Total fluoroscopy time 35.5 seconds. Total dose area product [id number] Total number of images: 1 Impression: Successful placement of left arm PICC under sonographic and fluoroscopic guidance, as described above.
--- NOTE | 2020-08-20 15:53 | General Progress Note ---
Subjective ROS Limited/Unobtainable: Yes Constitutional: Reports: fever, malaise, weakness HEENT: Reports: no symptoms Cardiovascular: Reports: no symptoms Respiratory: Reports: cough, shortness of breath, sputum Gastrointestinal/Abdominal: Reports: difficulty swallowing Genitourinary: Reports: no symptoms Neurologic/Psychiatric: Reports: pre-existing deficit Endocrine: Reports: no symptoms Hematologic/Lymphatic: Reports: anemia Allergies: Coded Allergies: No Known Allergies (Unverified , 11/02/19) All Systems: reviewed and negative except above Subjective No overnight events. Intermittent fevers noted. On IV Zosyn for pneumonia and bacteremia. Tolerating tube feeds. Awake but poorly responsive. Does not follow commands. Objective Last 24 Hour Vital Signs Date Time Temp Pulse Resp B/P (MAP) Pulse Ox O2 Delivery O2 Flow Rate FiO2 08/20/20 13:50 97 T-Piece 10.0 35 08/20/20 12:00 98.7 67 20 108/73 (85) 96 08/20/20 12:00 79 08/20/20 08:25 Trach Collar 10.0 08/20/20 08:20 74 109/63 08/20/20 08:00 96.8 74 21 109/63 (78) 98 08/20/20 08:00 78 08/20/20 07:54 77 16 99 T-Piece 10.0 35 08/20/20 07:54 98 T-Piece 10.0 35 08/20/20 04:00 77 08/20/20 04:00 97.7 82 18 104/58 (73) 97 08/20/20 00:48 97 T-Piece 10.0 35 08/20/20 00:00 75 08/20/20 00:00 97.5 78 16 93/47 (62) 97 08/19/20 21:00 Trach Collar 10.0 08/19/20 20:38 95 111/56 08/19/20 20:00 93 08/19/20 20:00 98.2 94 20 111/56 (74) 97 08/19/20 19:18 82 16 95 T-Piece 10.0 35 08/19/20 19:18 95 T-Piece 10.0 35 08/19/20 16:00 97.8 107 20 109/58 (75) 96 08/19/20 16:00 99 Intake and Output 08/19/20 08/20/20 19:00 07:00 Intake Total 1441.25 ml 1627.5 ml Balance 1441.25 ml 1627.5 ml Intake Free Water 320 ml 100 ml IV Total 281.25 ml 757.5 ml Tube Feeding 840 ml 770 ml Laboratory Tests 08/20/20 05:14: Sodium Level 152H, Potassium Level 3.6, Chloride Level 115H, Carbon Dioxide Level 29, Anion Gap 8, Blood Urea Nitrogen 69H, Creatinine 1.1, Estimat Glomerular Filtration Rate > 60, Glucose Level 125H, Calcium Level 8.7 Height (Feet): 5 Height (Inches): 4.00 Weight (Pounds): 171 Objective General Appearance: WD/WN, confused EENT: normal ENT inspection Neck: normal alignment Cardiovascular: normal rate, regular rhythm Respiratory/Chest: rhonchi - bilaterally Abdomen: normal bowel sounds, non tender, soft, no organomegaly Edema: no edema noted Leg (L), no edema noted Leg (R) Neurologic: disoriented, aphasia Skin: normal pigmentation Assessment/Plan Problem List: (1) Anemia ICD Codes: D64.9 - Anemia, unspecified SNOMED: 926848440, 866825372 Qualifiers: Qualified Codes: D50.0 - Iron deficiency anemia secondary to blood loss (chronic) (2) Pleural effusion, left ICD Codes: J90 - Pleural effusion, not elsewhere classified SNOMED: 29846513, 171511015 (3) Malfunction of gastrostomy tube ICD Codes: K94.23 - Gastrostomy malfunction SNOMED: 388735066 (4) Acute respiratory failure with hypoxia ICD Codes: J96.01 - Acute respiratory failure with hypoxia SNOMED: 38900518, 494043085 (5) HCAP (healthcare-associated pneumonia) ICD Codes: J18.9 - Pneumonia, unspecified organism SNOMED: 587973073, 805133048 Status: stable, progressing Assessment/Plan: Continue trach collar. Oxygen as needed Keep sats greater than 92% Pulmonary toilet suctioning IV antibiotics per ID Follow-up cultures and adjust antibiotics ID appreciated G-tube feeds Monitor residuals monitor for bleeding on AC Continue H2 ezekiel Monitor labs IV fluids as needed Turn every 2 hours Poor long-term prognosis for meaningful recovery wants pt to go home refusing subacute Angel Jaramillo MD Aug 20, 2020 15:53
[2020-08-20 16:00] VITALS: BP 109/63
--- NOTE | 2020-08-20 16:26 | NUR ---
CASE MANAGEMENT: REVIEW 08/20/20 SI: PNA. UTI. BACTEREMIA.PLEURAL EFFUSION THORACENTESIS 08/13 ~ 1.7 L REMOVED 96.8 59 20 109/63 SAT 97% TRACH COLLAR FLOW RATE 10L/35% IS: IVF@75/HR IV ZOSYN Q8HRS AMIODARONE GT QD ZINC GT QD LOPRESSOR GT Q12 LIPITOR GT QHS VIT C GT BID KEPPRA GT Q12 PEPCID GT QD : TELEMETRY STATUS DCP: FROM HOME PLAN: NEEDS SNF PLACEMENT
[2020-08-20] MEDS: Amiodarone 200mg tab GT SCH (17:39)
--- NOTE | 2020-08-20 19:40 | NUR ---
NURSE HAND-OFF REPORT: Important Events on Shift:Patient refused blood draws. Patient Status: stable Diet: Cardiac Pending Orders: Pending Results/Labs: Pending MD notification: Latest Vital Signs: Temperature 96.8 , Pulse 82 , B/P 109 /63 , Respiratory Rate 16 , O2 SAT 98 , Trach Collar, O2 Flow Rate 10.0 . Vital Sign Comment: EKG Rhythm: Sinus Rhythm Rhythm change?: N MD Notified?: N -Dr. Aubree VALDEZ Response: Message left await call Latest Ramirez Fall Score: 70 Fall Risk: High Risk Safety Measures: Call light Within Reach, Bed Alarm Zone 1, Side Rails Side Rails x3, Bed position Low and Locked. Fall Precautions: Patient Fall Education Report given to .SELIN Holloway. Addendum: 08/20/20 at 1954 by Italo Rossi RN NURSE NOTES:wrong patient please ignore.
--- NOTE | 2020-08-20 19:49 | NUR ---
NURSE NOTES: Patient received in from Italo SMALLWOOD. Patient in bed high fowlers. Patient was sleeping, non verbal, tracks with eyes, spontaneous eye opening noted, patient is on trach 10 liters Fio2 is 35 %, on tube feeding Vital AF at 70 cc/hr, with flush 100 cc every 4 hours, No residual at this time. Patient has [place] cath 16 Fr, secured, draining well to gravity. PICC line is to left upper arm, dressing is clean dry and intact, patient is bedbound, total care, seizure precautions, side rails are padded. Patient on P-200 for wound management. Call light is within reach, bed is lowered, locked, alarm is on, will continue to monitor for comfort and safety.
--- NOTE | 2020-08-20 19:54 | NUR ---
NURSE HAND-OFF REPORT: Important Events on Shift:Left upper arm PICC placed today, R upper arm PICC removed today. Patient Status: stable Diet: Vital AF @70ML/HR Pending Orders: Pending Results/Labs: Pending MD notification Latest Vital Signs: Temperature 96.8 , Pulse 82 , B/P 109 /63 , Respiratory Rate 16 , O2 SAT 98 , Trach Collar, O2 Flow Rate 10.0 . Vital Sign Comment: EKG Rhythm: Sinus Rhythm Rhythm change?: N Notified?: N -Dr. Aubree VALDEZ Response: Message left await call Latest Ramirez Fall Score: 70 Fall Risk: High Risk Safety Measures: Call light Within Reach, Bed Alarm Zone 1, Side Rails Side Rails x3, Bed position Low and Locked. Fall Precautions: Patient Fall Education Report given to SELIN Dennis.
[2020-08-20 20:00] VITALS: BP 100/55
[2020-08-20] MEDS: Dyna-Hex 2% Top Sol 2oz TOPIC SCH (20:55)
[2020-08-20] MEDS: Atorvastatin 20mg tab ORAL SCH (20:56)
--- NOTE | 2020-08-20 21:21 | General Progress Note ---
Subjective Allergies: Coded Allergies: No Known Allergies (Unverified , 11/02/19) Subjective more awake today appears comfortable tolerating TF LFT noted elevated past few days Objective Last 24 Hour Vital Signs Date Time Temp Pulse Resp B/P (MAP) Pulse Ox O2 Delivery O2 Flow Rate FiO2 08/20/20 20:56 89 100/55 08/20/20 20:00 93 08/20/20 19:12 98 T-Piece 10.0 35 08/20/20 19:11 82 16 98 T-Piece 10.0 35 08/20/20 16:00 76 08/20/20 16:00 96.8 59 20 109/63 (78) 97 08/20/20 13:50 97 T-Piece 10.0 35 08/20/20 12:00 98.7 67 20 108/73 (85) 96 08/20/20 12:00 79 08/20/20 08:25 Trach Collar 10.0 08/20/20 08:20 74 109/63 08/20/20 08:00 96.8 74 21 109/63 (78) 98 08/20/20 08:00 78 08/20/20 07:54 77 16 99 T-Piece 10.0 35 08/20/20 07:54 98 T-Piece 10.0 35 08/20/20 04:00 77 08/20/20 04:00 97.7 82 18 104/58 (73) 97 08/20/20 00:48 97 T-Piece 10.0 35 08/20/20 00:00 75 08/20/20 00:00 97.5 78 16 93/47 (62) 97 Intake and Output 08/19/20 08/20/20 19:00 07:00 Intake Total 1441.25 ml 1772.5 ml Balance 1441.25 ml 1772.5 ml Intake Free Water 320 ml 100 ml IV Total 281.25 ml 832.5 ml Tube Feeding 840 ml 840 ml Laboratory Tests 08/20/20 05:14: Sodium Level 152H, Potassium Level 3.6, Chloride Level 115H, Carbon Dioxide Level 29, Anion Gap 8, Blood Urea Nitrogen 69H, Creatinine 1.1, Estimat Glomerular Filtration Rate > 60, Glucose Level 125H, Calcium Level 8.7 Height (Feet): 5 Height (Inches): 4.00 Weight (Pounds): 171 Objective Eldely WM NCAT (+) trach , T tube Coarse BS RRR abd soft (+) GT ext no edema Assessment/Plan Status: stable, progressing Assessment/Plan: Assessment - Abnormal LFT, ? etiology - ? meds (? Amio - more likely, ? Statin) - ? liver / gallbladder - ? rabdo - UGIB - resolved - Anemia, s/p transfusion - h/o PUD - resp failure, s/p trach - dysphagia, s/p PEG - atrial fibrillation - h/o DVT - hypernatremia - loose BM - decubitus ulcers Recommendations - follow LFT - check abd ultrasound - ? reduce Amio dose if possible - anticoagulation - H2B BID indefinitely - vital AF - protein supplements - increased to TID - Added MVI - Added Vitamin C - free water - follow H&H - monitor BM Akiko Rai MD Aug 20, 2020 21:21
--- NOTE | 2020-08-20 23:29 | Cardiology Progress Note ---
Subjective DATE OF SERVICE: Aug 20, 2020 New PICC line placed today without complications. s/p 1700cc thorocentesis last week, and 1200cc L thorocentesis yesterday. Now has positive blood, urine, and sputum cultures with multiple gram negative pathogen. No new bleeding, since back on anticoagulation now following GI clearance. BP parameters stabilized. Monitor: AFib/flutter persisting still with increased ventricular rates now. Objective Last 24 Hour Vital Signs Date Time Temp Pulse Resp B/P (MAP) Pulse Ox O2 Delivery O2 Flow Rate FiO2 08/20/20 21:00 Trach Collar 10.0 08/20/20 20:56 89 100/55 08/20/20 20:00 93 08/20/20 20:00 97.6 89 20 100/55 (70) 98 08/20/20 19:12 98 T-Piece 10.0 35 08/20/20 19:11 82 16 98 T-Piece 10.0 35 08/20/20 16:00 76 08/20/20 16:00 96.8 59 20 109/63 (78) 97 08/20/20 13:50 97 T-Piece 10.0 35 08/20/20 12:00 98.7 67 20 108/73 (85) 96 08/20/20 12:00 79 08/20/20 08:25 Trach Collar 10.0 08/20/20 08:20 74 109/63 08/20/20 08:00 96.8 74 21 109/63 (78) 98 08/20/20 08:00 78 08/20/20 07:54 77 16 99 T-Piece 10.0 35 08/20/20 07:54 98 T-Piece 10.0 35 08/20/20 04:00 77 08/20/20 04:00 97.7 82 18 104/58 (73) 97 08/20/20 00:48 97 T-Piece 10.0 35 08/20/20 00:00 75 08/20/20 00:00 97.5 78 16 93/47 (62) 97 ROS: unchanged from 07/14/20 HEENT: Thick Trach secretions RHYTHM: NSR, ST, PACs, Afib LUNGS: bilateral rhonchi CARDIAC: normal S1 and S2, rapid rate, arrhythmia ABDOMEN: normal bowel sounds, soft, G-Tube intact EXTREMITIES: normal range of motion, non-tender, trace edema, other - withdrawn Laboratory Tests Test 08/20/20 05:14 Sodium Level 152 MMOL/L (136-145) H Potassium Level 3.6 MMOL/L (3.5-5.1) Chloride Level 115 MMOL/L (98-107) H Carbon Dioxide Level 29 MMOL/L (21-32) Anion Gap 8 mmol/L (5-15) Blood Urea Nitrogen 69 mg/dL (7-18) H Creatinine 1.1 MG/DL (0.55-1.30) Estimat Glomerular Filtration Rate > 60 mL/min (>60) Glucose Level 125 MG/DL (74-106) H Calcium Level 8.7 MG/DL (8.5-10.1) Assessment/Plan Assessment/Plan Healthcare associated PNA Polymicrobial Gram negative bacteremia and sepsis - UTI Paroxysmal atrial fibrillation/flutter Paroxysmal atrial ectopy 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 Dyslipidemia on high dose statin - now dose adjusted Dehydration/hypernatremia Severe protein-calorie malnutrition Multiple wounds Anemia - s/p tx Pleural effusion - s/p left thorocentesis Titrate beta blockade dose as tolerated by BP; may have to digitalize. Abx per ID; await final cultures Resp support Cardiac monitoring Statin dose adjusted Amiodarone at increased dose to maintain sinus rhythm. Free water replacement as needed; off IVF for now. Diuresis based on daily assessments of volume status. Continue anticoagulation with caution due to bleeding risk Awaiting SNF Dylan Sparks MD Aug 20, 2020 23:28
[2020-08-21] VITALS: BP 100/56
--- NOTE | 2020-08-21 | NUR ---
NURSE NOTES: Turned off patient feeding, flushes with 60ml of water, and clamped feeding as patient has an order for a Abdominal ultrasound today.
[2020-08-21 04:00] VITALS: BP 103/59
[2020-08-21] MEDS: Piperacillin/Tazobactam 3.375 GM in NS 110 ML IVPB SCH (05:33)
--- NOTE | 2020-08-21 06:41 | NUR ---
NURSE HAND-OFF REPORT: Important Events on Shift: Patient is NPO (tube feeding held) due to Abd ultrasound. Patient Status: no acute Distress Diet: Vital AF At 70ml/hr with Q4hr 100ml Pending Orders: Pending Results/Labs: Pending MD notification: Latest Vital Signs: Temperature 97.4 , Pulse 90 , B/P 103 /59 , Respiratory Rate 17 , O2 SAT 96 , Trach Collar, O2 Flow Rate 10.0 . Vital Sign Comment: EKG Rhythm: Sinus Rhythm Rhythm change?: N Notified?: N -Dr. Aubree VALDEZ Response: Message left await call Latest Ramirez Fall Score: 70 Fall Risk: High Risk Safety Measures: Call light Within Reach, Bed Alarm Zone 1, Side Rails Side Rails x3, Bed position Low and Locked. Fall Precautions: Patient Fall Education Report to be given. Addendum: 08/21/20 at 0739 by Jeannie Ward RN report given to Georgie SMALLWOOD
[2020-08-21 07:02] LABS: BASOPHILS % (AUTO) 0.7 % (0.0-2.0); EOSINOPHILS % (AUTO) 3.1 % (0.0-3.0); HEMATOCRIT 26.5 % (42.0-52.0); LYMPHOCYTES % (AUTO) 18.4 % (20.0-45.0); MEAN CORPUSCULAR VOLUME 91 FL (80-99); MONOCYTES % (AUTO) 5.5 % (1.0-10.0); NEUTROPHILS % (AUTO) 72.3 % (45.0-75.0); PLATELET COUNT 358 K/UL (150-450); RED BLOOD COUNT 2.91 M/UL (4.70-6.10); RED CELL DISTRIBUTION WIDTH 15.8 % (11.6-14.8); WHITE BLOOD COUNT 8.4 K/UL (4.8-10.8)
[2020-08-21 07:14] LABS: ALANINE AMINOTRANSFERASE 131 U/L (12-78); ALBUMIN 0.9 G/DL (3.4-5.0); ALBUMIN/GLOBULIN RATIO 0.2 (1.0-2.7); ALKALINE PHOSPHATASE 135 U/L (46-116); ANION GAP 8 mmol/L (5-15); ASPARTATE AMINO TRANSFERASE 55 U/L (15-37); BILIRUBIN,TOTAL 0.4 MG/DL (0.2-1.0); BLOOD UREA NITROGEN 62 mg/dL (7-18); CALCIUM 8.4 MG/DL (8.5-10.1); CARBON DIOXIDE 28 MMOL/L (21-32); CHLORIDE 113 MMOL/L (98-107); CREATINE KINASE 15 U/L (26-308); POTASSIUM 3.6 MMOL/L (3.5-5.1); SODIUM 149 MMOL/L (136-145)
--- NOTE | 2020-08-21 07:30 | NUR ---
NURSE NOTES: Received pt from RN Jeannie, pt is awake and confused, pt has trach to tangela 10lit fio2 35%, pt has [place] cath in place is working well, pt has PICC REBECCA is running well, pt has g tube in place is patent and pt is NPO due to abd us, pt is on continues heart monitoring. all needs attended, bed is locked and is in the lowest position, call light within easy reach. will continue to monitor.
[2020-08-21 08:00] VITALS: BP 101/55
--- NOTE | 2020-08-21 08:04 | Surgery Progress Note ---
Surgery Progress Note Subjective Additional Comments no acute events Objective Last 24 Hour Vital Signs Date Time Temp Pulse Resp B/P (MAP) Pulse Ox O2 Delivery O2 Flow Rate FiO2 08/21/20 08:00 97.5 86 22 101/55 (70) 98 08/21/20 04:00 97.4 90 17 103/59 (74) 96 08/21/20 03:07 81 08/21/20 01:33 98 T-Piece 10.0 35 08/21/20 00:00 97.2 82 16 100/56 (71) 92 08/20/20 23:11 82 08/20/20 21:00 Trach Collar 10.0 08/20/20 20:56 89 100/55 08/20/20 20:00 93 08/20/20 20:00 97.6 89 20 100/55 (70) 98 08/20/20 19:12 98 T-Piece 10.0 35 08/20/20 19:11 82 16 98 T-Piece 10.0 35 08/20/20 16:00 76 08/20/20 16:00 96.8 59 20 109/63 (78) 97 08/20/20 13:50 97 T-Piece 10.0 35 08/20/20 12:00 98.7 67 20 108/73 (85) 96 08/20/20 12:00 79 08/20/20 08:25 Trach Collar 10.0 08/20/20 08:20 74 109/63 I&O Intake and Output 08/20/20 08/21/20 19:00 07:00 Intake Total 1775 ml 929.45 ml Output Total 900 ml Balance 1775 ml 29.45 ml Intake Free Water 180 ml 160 ml IV Total 825 ml 419.45 ml Tube Feeding 770 ml 350 ml Output Urine Total 900 ml Dressing: saturated Cardiovascular: RSR Respiratory: decreased breath sounds Abdomen: soft, non-tender, present bowel sounds Extremities: no cyanosis, other Laboratory Tests Test 08/21/20 05:16 White Blood Count 8.4 K/UL (4.8-10.8) Red Blood Count 2.91 M/UL (4.70-6.10) L Hemoglobin 8.0 G/DL (14.2-18.0) L Hematocrit 26.5 % (42.0-52.0) L Mean Corpuscular Volume 91 FL (80-99) Mean Corpuscular Hemoglobin 27.4 PG (27.0-31.0) Mean Corpuscular Hemoglobin Concent 30.1 G/DL (32.0-36.0) L Red Cell Distribution Width 15.8 % (11.6-14.8) H Platelet Count 358 K/UL (150-450) Mean Platelet Volume 5.8 FL (6.5-10.1) L Neutrophils (%) (Auto) 72.3 % (45.0-75.0) Lymphocytes (%) (Auto) 18.4 % (20.0-45.0) L Monocytes (%) (Auto) 5.5 % (1.0-10.0) Eosinophils (%) (Auto) 3.1 % (0.0-3.0) H Basophils (%) (Auto) 0.7 % (0.0-2.0) Sodium Level 149 MMOL/L (136-145) H Potassium Level 3.6 MMOL/L (3.5-5.1) Chloride Level 113 MMOL/L (98-107) H Carbon Dioxide Level 28 MMOL/L (21-32) Anion Gap 8 mmol/L (5-15) Blood Urea Nitrogen 62 mg/dL (7-18) H Creatinine 1.0 MG/DL (0.55-1.30) Estimat Glomerular Filtration Rate > 60 mL/min (>60) Glucose Level 125 MG/DL (74-106) H Calcium Level 8.4 MG/DL (8.5-10.1) L Total Bilirubin 0.4 MG/DL (0.2-1.0) Aspartate Amino Transf (AST/SGOT) 55 U/L (15-37) H Alanine Aminotransferase (ALT/SGPT) 131 U/L (12-78) H Alkaline Phosphatase 135 U/L (46-116) H Total Creatine Kinase 15 U/L (26-308) L Total Protein 6.8 G/DL (6.4-8.2) Albumin 0.9 G/DL (3.4-5.0) L Globulin 5.9 g/dL Albumin/Globulin Ratio 0.2 (1.0-2.7) L Plan Problems: (1) Decubitus skin ulcer Assessment & Plan: Pt was discharged 08/15/20 and readmitted same day. Pt presented with FLAT KNITTER Shunt,Tracheostomy , GT and Multiple Pressure Injuries and contractures. Small amt exudate that is of Sanguineous mixed with Formula noted from GT. Mild excoriation noted to Peristomal GT site. Full Thickness Sacral Pressure Injury (L)10.5cm x (W)8.3cm x (D)1.5cm, Undermining clockwise 9-2 by 1.3cm @10'oclock. Base of wound is 90% granular 10% necrotic. NO odor noted. Small amt serosanguineous exudate noted.Periwound is erythematous and indurated. No changes in skin temp noted. Full Thickness Pressure Injury Outer L Lower Quadrant of Buttocks.(L)5.5cm x (W)7cm x (D)1.5cm, Undermining clockwise 9-3 by 4.5cm @12o'clock, Tunneled area within base of wound by 5.5cm @ 1-2o'clock. Base of wound is 85% % moist and pink ,15% necrotic at base at undermined area of wound. Bone exposure noted. Small amt serosanguineous exudate noted. Periwound is erythematous and indurated. No odor noted. Full thickness Pressure Injury L Ischium(L)2cm x (W)0.9cm x (D)0.3cm. Base of wound is moist, and pink. Edges are adherent to base of wound. Periwound is maroon and indurated. NO changes in skin temp periwound. NO odor noted. Non-Blanchable erythema without induration noted to R Hip /R trochanteric.. Full Thickness Pressure Injury lateral L Tibia(L)21.5cm x (W)3.5cm x (D)0.2cm. Base of wound is 95% granular,5% necrosis along borders. Edges are adherent to base of wound . Moderate amt sanguineous exudate noted. No odor noted.Periwound skin colour is darker than is normal tone but without erythema or induration. Full thickness Pressure Injury L Heel extending into Plantar aspect of heel(L)8.7cm x (W)6.5cm x(D)0.6cm.Base of wound is 60% beefy granulation,40% necrotic. Bone is palpable. (+) Epibole at proximal borders of wound in close proximity with achilles. Small amt haemopurulent exudate noted. Wound is malodorous. Periwound is dusky and indurated. Full Thickness Pressure Injury Lateral L Foot (L)1.9cm x (W)3.4cm x (D)0.3cm, undermining clockwise 9-3 by 0.2cm @9o'clock. Base of wound is 10% necrotic 90% antonio. Wound is malodorous. Edges are macerate with scattered areas of necrosis along edges. Small amt haemopurulent exudate noted.Periwound is fluctuant and dusky. Full Thickness Pressure Injury distal/lateral L foot(L)1.3cm x (W)3.7cm x (D)0.2cm. Base of wound is 80% soft necrosis,20% moist and pink. edges are macerated. Wound is malodorous. Small amt brown exudate noted . Periwound is dusky and fluctuant. Unstageable Pressure injury dorsal L foot (L)1cm x (W)0.9cm. Base of wound is 100% necrotic. Edges are erythematous and macerated. Periwound without erythema,induration or fluctuance. Full thickness Pressure Injury R Heel including plantar aspect of heel (L)8.7cm x (W)6.5cm x (D)0.6cm. Base of wound is 60% beefy granulation,40% necrotic. Bone exposure at base of wound. Moderate amt haemopurulent exudate. Wound is malodorous. Proximal edges of wound within close proximity with achilles is rolled. Edges are otherwise macerated. Periwound is fluctuant and dusky. Full Thickness Pressure Injury distal/lateral R foot (L)0.5cm x (W)0.6cm. Base of wound is 100% fibrinous slough. Erythematous borders. Periwound without induration or fluctuance. Small amt serous exudate noted. Tx.Plan: Wash GT site with Soap and Water. Pat dry. Apply Moisture Barrier Paste around Gt Daily. Leave open to Air. Cleanse Sacral wound, L buttocks, and L Ischia wounds with Dakin's 0.25% Kristel. Loosely pack wounds with Dakin's moistened Kerlix.Apply Triad Paste periwound. Cover with Optifoam drsgs Daily and prn. Cleanse wound Lateral L Tibia with Dakin's o.25% Kristel. Rinse with Saline. Apply Promogran moistened with Saline. Apply Moisture Barrier Paste along borders. Cover with ABD Pads. Wrap with Kerlix every Mon-Wed-Fri (NOTE: Wound Nurse to Aplpy Promogran) Cleanse wounds L Foot with Dakin's 0.25% Kristel. Apply Dakin's moistened Gauze to each wound. Apply Triad Paste along Borders of each wound. Cover with ABD Pads and wrap with Kerlix Daily and prn. Cleanse R Heel wound with Dakin's 0.25% Kristel. Apply Dakin's Moistened Gauze to wound. Apply Triad Paste Periwound. Cover with ABD Pad. Wrap with Kerlix Daily and prn. Reposition at least every 2hours or as tolerated. Place Pillow Between Knees. Off-load heels with 2 Pillows. APM/TERRIE Mattress overlay. Sacral wound,L Buttocks, L Ischial wounds cleansed with Dakin's and each wound loosely packed with Dakin's moistened Kerlix.Moisture Barrier Paste applied to borders of each wound and each wound covered with Optifoam drsgs. Perianal area noted to be red and excoriated. Moisture Barrier Paste applied to affected area. Drsgs to L tibia, L Heel and R Heel noted to be saturated and malodorous. Both lower ext washed with Chlorhexidine soap prior to providing wound care.Base of wound lateral L Tibia beefy red. Edges are adherent with an area of 5% necrosis distally. Small amt sanguineous exudate No erythema or changes in skin temp periwound. Wound Later L Tibia cleansed with Saline. Promogran applied to base of wound.Moisture Barrier Paste applied along borders. Covered with ABD pad. Wrapped with Kerlix. R and L Heel wounds cleansed Dakin's 0.25% kristel. Dakin's moistened gauze applied to each wound Moisture Barrier Paste applied to borders of each wound and each wound covered with Abd Pads and each heel wrapped with Kerlix drsgs. Skin under tracheal collar assessed and no evidence of skin breakdown noted. Peristomal Gt site is resolving, Skin is moist but pink.No new skin concerns noted. (2) Anemia Assessment & Plan: trend h/h prbc prn (3) UTI (urinary tract infection) (4) Pleural effusion, left Assessment & Plan: Ultrasound used to localize optimal puncture site. Sterile prepping and draping left chest. Local anesthesia with 1% lidocaine. Under real-time ultrasound guidance, puncture pleural space using thoracentesis needle. Stylet removed. Catheter placed to vacuum bottle suction. Total 1700 milliliters of fluid aspirated. Patient tolerated procedure well, without immediate complication. Findings: Followup sonography demonstrates small amount of residual pleural fluid. Impression: Successful ultrasound-guided thoracentesis, yielding 1700 milliliters of fluid Lungs: Hazy left lung attenuation could be due to consolidation, pulmonary edema; correlate with presentation. Retrocardiac atelectasis without or with consolidation. Pleural space: Small-moderate left pleural effusion with passive atelectasis. No pneumothorax. Heart: Unremarkable. No cardiomegaly. Mediastinum: Unremarkable. Bones/joints: No acute abnormality Tubes, lines and devices: Tracheostomy. Right upper extremity PICC tip in the mid SVC. IMPRESSION: 1. Tracheostomy. 2. Right upper extremity PICC tip in the mid SVC. 3. Small-moderate left pleural effusion with passive atelectasis. 4. Hazy left lung attenuation could be due to consolidation, pulmonary edema; correlate with presentation. 5. Retrocardiac atelectasis without or with consolidation. 6. Recommend CT chest with IV contrast to further characterize these findings. plan repeat thora (5) Malfunction of gastrostomy tube Assessment & Plan: DAILY ESTIMATED NEEDS: Needs based on Wounds, pulmonary/ 74.5kg 25-30 kcals/kg 9617-9432 total kcals 1.5-2 g protein/kg 111-149 g total protein 25-30 mL/kg 5279-7248 total fluid mLs NUTRITION DIAGNOSIS: * Swallowing difficulty R/T dysphagia, h/o craniotomy, respiratory failure as evidenced by pt on T-collar, GJ tube dependent. * Increased kcal/prot/micronutrients needs R/T wound healing as evidenced by pt admitted w/ multiple advanced wounds including full thickness wound x 7 and unstageable wounds x 2, refer to WC eval. CURRENT TF:Jevity 1.2 @ 60ml/hr x 24 hrs-> now Glucerna 1.2 ENTERAL NUTRITION RECOMMENDATIONS: Glucerna 1.2 @ 65ml/hr x 24 hrs + Prosource 1pkt TID to provide 1560ml, 1872kcal, 94g+ 33g prot, 1259ml free water * Increase goal rate to 65ml/hr x 24 hrs to better meet est needs * Add Prosource 1pkt TID to meet increased protein needs * HOB over 30 degrees/ water flush 150ml q 6hrs without IVF ADDITIONAL RECOMMENDATIONS: * Calibrated bedscale wt * Wound Care: Con't Vit C 500mg BID, ZnSO4 220mg QD x 10 days add Stevie BID * Monitor BGs, need for carb controlled TF -> now on Glucerna 1.2 * Monitor lytes, replete as needed (6) Acute respiratory failure with hypoxia (7) HCAP (healthcare-associated pneumonia) Deny Westfall Aug 21, 2020 08:04
--- NOTE | 2020-08-21 08:38 | General Progress Note ---
Subjective ROS Limited/Unobtainable: No Constitutional: Reports: malaise, weakness HEENT: Reports: no symptoms Cardiovascular: Reports: no symptoms Respiratory: Reports: cough, shortness of breath, sputum Gastrointestinal/Abdominal: Reports: difficulty swallowing Genitourinary: Reports: no symptoms Neurologic/Psychiatric: Reports: pre-existing deficit Endocrine: Reports: no symptoms Hematologic/Lymphatic: Reports: anemia Allergies: Coded Allergies: No Known Allergies (Unverified , 11/02/19) All Systems: reviewed and negative except above Subjective no events. stable on tbar. awake but not verbal. does not follow commands. no fevers. on iv abx. on tube feeds Objective Last 24 Hour Vital Signs Date Time Temp Pulse Resp B/P (MAP) Pulse Ox O2 Delivery O2 Flow Rate FiO2 08/21/20 08:00 97.5 86 22 101/55 (70) 98 08/21/20 07:38 81 08/21/20 04:00 97.4 90 17 103/59 (74) 96 08/21/20 03:07 81 08/21/20 01:33 98 T-Piece 10.0 35 08/21/20 00:00 97.2 82 16 100/56 (71) 92 08/20/20 23:11 82 08/20/20 21:00 Trach Collar 10.0 08/20/20 20:56 89 100/55 08/20/20 20:00 93 08/20/20 20:00 97.6 89 20 100/55 (70) 98 08/20/20 19:12 98 T-Piece 10.0 35 08/20/20 19:11 82 16 98 T-Piece 10.0 35 08/20/20 16:00 76 08/20/20 16:00 96.8 59 20 109/63 (78) 97 08/20/20 13:50 97 T-Piece 10.0 35 08/20/20 12:00 98.7 67 20 108/73 (85) 96 08/20/20 12:00 79 Intake and Output 08/20/20 08/21/20 19:00 07:00 Intake Total 1775 ml 929.45 ml Output Total 900 ml Balance 1775 ml 29.45 ml Intake Free Water 180 ml 160 ml IV Total 825 ml 419.45 ml Tube Feeding 770 ml 350 ml Output Urine Total 900 ml Laboratory Tests 08/21/20 05:16: White Blood Count 8.4, Red Blood Count 2.91L, Hemoglobin 8.0L, Hematocrit 26.5L, Mean Corpuscular Volume 91, Mean Corpuscular Hemoglobin 27.4, Mean Corpuscular Hemoglobin Concent 30.1L, Red Cell Distribution Width 15.8H, Platelet Count 358, Mean Platelet Volume 5.8L, Neutrophils (%) (Auto) 72.3, Lymphocytes (%) (Auto) 18.4L, Monocytes (%) (Auto) 5.5, Eosinophils (%) (Auto) 3.1H, Basophils (%) (Auto) 0.7, Sodium Level 149H, Potassium Level 3.6, Chloride Level 113H, Carbon Dioxide Level 28, Anion Gap 8, Blood Urea Nitrogen 62H, Creatinine 1.0, Estimat Glomerular Filtration Rate > 60, Glucose Level 125H, Calcium Level 8.4L, Total Bilirubin 0.4, Aspartate Amino Transf (AST/SGOT) 55H, Alanine Aminotransferase ( ALT/SGPT) 131H, Alkaline Phosphatase 135H, Total Creatine Kinase 15L, Total Protein 6.8, Albumin 0.9L, Globulin 5.9, Albumin/Globulin Ratio 0.2L Height (Feet): 5 Height (Inches): 4.00 Weight (Pounds): 171 Objective General Appearance: WD/WN, confused EENT: normal ENT inspection Neck: normal alignment Cardiovascular: normal rate, regular rhythm Respiratory/Chest: rhonchi - bilaterally Abdomen: normal bowel sounds, non tender, soft, no organomegaly Edema: no edema noted Leg (L), no edema noted Leg (R) Neurologic: disoriented, aphasia Skin: normal pigmentation Assessment/Plan Problem List: (1) Anemia ICD Codes: D64.9 - Anemia, unspecified SNOMED: 416949975, 949454869 Qualifiers: Qualified Codes: D50.0 - Iron deficiency anemia secondary to blood loss (chronic) (2) Pleural effusion, left ICD Codes: J90 - Pleural effusion, not elsewhere classified SNOMED: 08417870, 516141454 (3) Malfunction of gastrostomy tube ICD Codes: K94.23 - Gastrostomy malfunction SNOMED: 544392424 (4) Acute respiratory failure with hypoxia ICD Codes: J96.01 - Acute respiratory failure with hypoxia SNOMED: 23932289, 276880355 (5) HCAP (healthcare-associated pneumonia) ICD Codes: J18.9 - Pneumonia, unspecified organism SNOMED: 236572360, 024386807 Status: stable, progressing Assessment/Plan: Continue trach collar. Oxygen as needed Keep sats greater than 92% Pulmonary toilet suctioning IV antibiotics per ID Follow-up cultures and adjust antibiotics ID appreciated G-tube feeds Monitor residuals monitor for bleeding on AC Continue H2 ezekiel Monitor labs IV fluids as needed Turn every 2 hours Poor long-term prognosis for meaningful recovery wants pt to go home refusing subacute Angel Jaramillo MD Aug 21, 2020 08:38
--- NOTE | 2020-08-21 09:05 | Pulmonology Progress Note ---
Subjective ROS Limited/Unobtainable: Yes Allergies: Coded Allergies: No Known Allergies (Unverified , 11/02/19) All Systems: reviewed and negative except above Subjective CARE NOTED nonverbal on oxygen at 35% bcx+ s/p tap Objective Last 24 Hour Vital Signs Date Time Temp Pulse Resp B/P (MAP) Pulse Ox O2 Delivery O2 Flow Rate FiO2 08/21/20 08:00 97.5 86 22 101/55 (70) 98 08/21/20 07:38 81 08/21/20 07:35 97 T-Piece 10.0 35 08/21/20 07:30 82 18 97 T-Piece 10.0 35 08/21/20 04:00 97.4 90 17 103/59 (74) 96 08/21/20 03:07 81 08/21/20 01:33 98 T-Piece 10.0 35 08/21/20 00:00 97.2 82 16 100/56 (71) 92 08/20/20 23:11 82 08/20/20 21:00 Trach Collar 10.0 08/20/20 20:56 89 100/55 08/20/20 20:00 93 08/20/20 20:00 97.6 89 20 100/55 (70) 98 08/20/20 19:12 98 T-Piece 10.0 35 08/20/20 19:11 82 16 98 T-Piece 10.0 35 08/20/20 16:00 76 08/20/20 16:00 96.8 59 20 109/63 (78) 97 08/20/20 13:50 97 T-Piece 10.0 35 08/20/20 12:00 98.7 67 20 108/73 (85) 96 08/20/20 12:00 79 Intake and Output 08/20/20 08/21/20 19:00 07:00 Intake Total 1775 ml 929.45 ml Output Total 900 ml Balance 1775 ml 29.45 ml Intake Free Water 180 ml 160 ml IV Total 825 ml 419.45 ml Tube Feeding 770 ml 350 ml Output Urine Total 900 ml Objective WDWN NAD awake chronically ill moderate breath sounds bilaterally without rhonchi [id number] NABS nontender GT no CCE nonfocal weak wounds noted Laboratory Tests 08/21/20 05:16: White Blood Count 8.4, Red Blood Count 2.91L, Hemoglobin 8.0L, Hematocrit 26.5L, Mean Corpuscular Volume 91, Mean Corpuscular Hemoglobin 27.4, Mean Corpuscular Hemoglobin Concent 30.1L, Red Cell Distribution Width 15.8H, Platelet Count 358, Mean Platelet Volume 5.8L, Neutrophils (%) (Auto) 72.3, Lymphocytes (%) (Auto) 18.4L, Monocytes (%) (Auto) 5.5, Eosinophils (%) (Auto) 3.1H, Basophils (%) (Auto) 0.7, Sodium Level 149H, Potassium Level 3.6, Chloride Level 113H, Carbon Dioxide Level 28, Anion Gap 8, Blood Urea Nitrogen 62H, Creatinine 1.0, Estimat Glomerular Filtration Rate > 60, Glucose Level 125H, Calcium Level 8.4L, Total Bilirubin 0.4, Aspartate Amino Transf (AST/SGOT) 55H, Alanine Aminotransferase (ALT/SGPT) 131H, Alkaline Phosphatase 135H, Total Creatine Kinase 15L, Total Protein 6.8, Albumin 0.9L, Globulin 5.9, Albumin/Globulin Ratio 0.2L Current Medications Medications (Trade) Dose Ordered Sig/Clive Route PRN Reason Start Time Stop Time Status Last Admin Dose Admin Acetaminophen (Tylenol) 650 mg Q4H PRN GT Temp >100.5 08/18/20 21:15 09/17/20 21:14 08/18/20 21:36 Amiodarone HCl (Cordarone) 400 mg DAILY@1800 GT 08/10/20 18:00 10/28/20 17:59 08/20/20 17:39 Ascorbic Acid (Vitamin C) 500 mg DAILY ORAL 08/17/20 16:00 09/16/20 15:59 08/20/20 08:19 Atorvastatin Calcium (Lipitor) 10 mg BEDTIME ORAL 08/05/20 21:00 10/22/20 20:59 08/20/20 20:56 Chlorhexidine Gluconate (Jennifer-Hex 2%) 1 applic DAILY@2000 TOPIC 07/17/20 20:00 10/15/20 19:59 08/20/20 20:55 Dextrose 1,000 ml @ 75 mls/hr [id number] IV 08/19/20 15:15 09/18/20 15:14 08/21/20 05:41 Famotidine (Pepcid) 20 mg Q12HR GT 07/16/20 21:00 10/14/20 20:59 08/20/20 20:56 Finasteride (Proscar) 5 mg DAILY ORAL 07/15/20 09:00 10/13/20 08:59 08/20/20 08:20 Hydralazine HCl (Apresoline) 25 mg Q6H PRN GT SBP above 150 07/24/20 23:30 10/22/20 23:29 07/26/20 05:22 Levetiracetam (Keppra) 1,000 mg Q12HR ORAL 08/12/20 21:00 09/11/20 20:59 08/20/20 20:56 Metoprolol Tartrate (Lopressor) 100 mg Q12HR ORAL 08/13/20 09:00 11/11/20 08:59 08/20/20 20:56 Multivitamins (Multivitamins) 1 tab DAILY ORAL 08/17/20 16:00 09/16/20 15:59 08/20/20 08:20 Piperacillin Sod/ Tazobactam Sod 3.375 gm/Sodium Chloride 110 ml @ 27.5 mls/hr EVERY 8 HOURS IVPB 08/18/20 17:00 08/23/20 16:59 08/21/20 05:33 Sodium Hypochlorite (Dakin's Half Strength) 1 applic DAILY TOPIC 08/19/20 16:30 09/18/20 16:29 08/20/20 08:20 Assessment/Plan Assessment/Plan Impression: Healthcare-associated pneumonia Acute respiratory failure with hypoxia Tracheostomy status Pleural effusion, left-recurrent s/p tap Decubitus ulcers Urinary tract infection Anemia S/p previous Craniotomy, RCA occlusion, CERTIFIED DENTAL ASSISTANT shunt Seizure history GERD, dysphagia s/p GJ tube h/o Hypertension h/o Atrial fibrillation Previous DVT and Pulmonary Embolism, hypernatremia Plan events reviewed on antibiotics ID noted CXR improved monitor HH for change J tube feeds monitor oxygen needs nebs as needed Wound care Cardiology follow up [employer] Medications dc planning again with and agrees to sNF orders reviewed impression, plan, and exam edited and reviewed in detail care discussed with Nikita Arreola MD Aug 21, 2020 09:05
[2020-08-21] MEDS: Ascorbic Acid 500mg tab ORAL SCH (09:29)
[2020-08-21] MEDS: Metoprolol Tartrate 100mg tab ORAL SCH ×2 (09:29→21:04)
[2020-08-21] MEDS: Dakin's 0.25% (Half Strength) 16oz TOPIC SCH (09:30)
--- NOTE | 2020-08-21 10:38 | Infectious Diseases Prog Note ---
Assessment/Plan Assessment/Plan A: 1. Pseudomonas & Proteus pneumonia. 2. Providencia & Proteus sepsis 3. Hypertension. 4. Atrial fibrillation. 5. anemia 6. S/p tracheostomy 7. s/p GT 8. Left pleural effusion, s/p thoracentesis 9. Bacteremia with Staph epidermidis 10. ? PICC line infection, line was changed 11. Psudomonas bacteriuria PLAN: 1. Change Zosyn to Meropenem 2. Will f/u cultures Subjective ROS Limited/Unobtainable: Yes Cardiovascular: Reports: other - PICC line was changed Allergies: Coded Allergies: No Known Allergies (Unverified , 11/02/19) Objective Last 24 Hour Vital Signs Date Time Temp Pulse Resp B/P (MAP) Pulse Ox O2 Delivery O2 Flow Rate FiO2 08/21/20 09:29 86 101/55 08/21/20 09:00 Trach Collar 10.0 08/21/20 08:00 97.5 86 22 101/55 (70) 98 08/21/20 07:38 81 08/21/20 07:35 97 T-Piece 10.0 35 08/21/20 07:30 82 18 97 T-Piece 10.0 35 08/21/20 04:00 97.4 90 17 103/59 (74) 96 08/21/20 03:07 81 08/21/20 01:33 98 T-Piece 10.0 35 08/21/20 00:00 97.2 82 16 100/56 (71) 92 08/20/20 23:11 82 08/20/20 21:00 Trach Collar 10.0 08/20/20 20:56 89 100/55 08/20/20 20:00 93 08/20/20 20:00 97.6 89 20 100/55 (70) 98 08/20/20 19:12 98 T-Piece 10.0 35 08/20/20 19:11 82 16 98 T-Piece 10.0 35 08/20/20 16:00 76 08/20/20 16:00 96.8 59 20 109/63 (78) 97 08/20/20 13:50 97 T-Piece 10.0 35 08/20/20 12:00 98.7 67 20 108/73 (85) 96 08/20/20 12:00 79 Height (Feet): 5 Height (Inches): 4.00 Weight (Pounds): 171 HEENT: status post trach Respiratory/Chest: rhonchi - bilaterally, other - on T bar Cardiovascular: normal rate, other - left arm PICC line Abdomen: soft, non tender, other - GT feeding Extremities: no edema Neurologic/Psychiatric: aphasia Musculoskeletal: atrophy Laboratory Tests Test 08/21/20 05:16 White Blood Count 8.4 K/UL (4.8-10.8) Red Blood Count 2.91 M/UL (4.70-6.10) L Hemoglobin 8.0 G/DL (14.2-18.0) L Hematocrit 26.5 % (42.0-52.0) L Mean Corpuscular Volume 91 FL (80-99) Mean Corpuscular Hemoglobin 27.4 PG (27.0-31.0) Mean Corpuscular Hemoglobin Concent 30.1 G/DL (32.0-36.0) L Red Cell Distribution Width 15.8 % (11.6-14.8) H Platelet Count 358 K/UL (150-450) Mean Platelet Volume 5.8 FL (6.5-10.1) L Neutrophils (%) (Auto) 72.3 % (45.0-75.0) Lymphocytes (%) (Auto) 18.4 % (20.0-45.0) L Monocytes (%) (Auto) 5.5 % (1.0-10.0) Eosinophils (%) (Auto) 3.1 % (0.0-3.0) H Basophils (%) (Auto) 0.7 % (0.0-2.0) Sodium Level 149 MMOL/L (136-145) H Potassium Level 3.6 MMOL/L (3.5-5.1) Chloride Level 113 MMOL/L (98-107) H Carbon Dioxide Level 28 MMOL/L (21-32) Anion Gap 8 mmol/L (5-15) Blood Urea Nitrogen 62 mg/dL (7-18) H Creatinine 1.0 MG/DL (0.55-1.30) Estimat Glomerular Filtration Rate > 60 mL/min (>60) Glucose Level 125 MG/DL (74-106) H Calcium Level 8.4 MG/DL (8.5-10.1) L Total Bilirubin 0.4 MG/DL (0.2-1.0) Aspartate Amino Transf (AST/SGOT) 55 U/L (15-37) H Alanine Aminotransferase (ALT/SGPT) 131 U/L (12-78) H Alkaline Phosphatase 135 U/L (46-116) H Total Creatine Kinase 15 U/L (26-308) L Total Protein 6.8 G/DL (6.4-8.2) Albumin 0.9 G/DL (3.4-5.0) L Globulin 5.9 g/dL Albumin/Globulin Ratio 0.2 (1.0-2.7) L Current Medications Medications (Trade) Dose Ordered Sig/Clive Route PRN Reason Start Time Stop Time Status Last Admin Dose Admin Acetaminophen (Tylenol) 650 mg Q4H PRN GT Temp >100.5 08/18/20 21:15 09/17/20 21:14 08/18/20 21:36 Amiodarone HCl (Cordarone) 400 mg DAILY@1800 GT 08/10/20 18:00 10/28/20 17:59 08/20/20 17:39 Ascorbic Acid (Vitamin C) 500 mg DAILY ORAL 08/17/20 16:00 09/16/20 15:59 08/21/20 09:29 Atorvastatin Calcium (Lipitor) 10 mg BEDTIME ORAL 08/05/20 21:00 10/22/20 20:59 08/20/20 20:56 Chlorhexidine Gluconate (Jennifer-Hex 2%) 1 applic DAILY@2000 TOPIC 07/17/20 20:00 10/15/20 19:59 08/20/20 20:55 Dextrose 1,000 ml @ 75 mls/hr [id number] IV 08/19/20 15:15 09/18/20 15:14 08/21/20 05:41 Famotidine (Pepcid) 20 mg Q12HR GT 07/16/20 21:00 10/14/20 20:59 08/21/20 09:29 Finasteride (Proscar) 5 mg DAILY ORAL 07/15/20 09:00 10/13/20 08:59 08/21/20 09:29 Hydralazine HCl (Apresoline) 25 mg Q6H PRN GT SBP above 150 07/24/20 23:30 10/22/20 23:29 07/26/20 05:22 Levetiracetam (Keppra) 1,000 mg Q12HR ORAL 08/12/20 21:00 09/11/20 20:59 08/21/20 09:30 Metoprolol Tartrate (Lopressor) 100 mg Q12HR ORAL 08/13/20 09:00 11/11/20 08:59 08/21/20 09:29 Multivitamins (Multivitamins) 1 tab DAILY ORAL 08/17/20 16:00 09/16/20 15:59 08/21/20 09:29 Piperacillin Sod/ Tazobactam Sod 3.375 gm/Sodium Chloride 110 ml @ 27.5 mls/hr EVERY 8 HOURS IVPB 08/18/20 17:00 08/23/20 16:59 08/21/20 05:33 Sodium Hypochlorite (Dakin's Half Strength) 1 applic DAILY TOPIC 08/19/20 16:30 09/18/20 16:29 08/21/20 09:30 Steve Nelson MD Aug 21, 2020 10:38
[2020-08-21 12:00] VITALS: BP 91/51
--- NOTE | 2020-08-21 13:12 | Diagnostic Imaging Report ---
EXAM: ULTRASOUND US ABD Complete CLINICAL HISTORY: Abdominal pain. COMPARISON: None TECHNIQUE: Ultrasound examination of the abdomen includes grayscale images, and color and spectral doppler analysis. FINDINGS: There is hepatosplenomegaly. No ductal dilatation or space occupying lesion demonstrated. The gallbladder is without sludge or stone. Common bile duct measures 3 mm. The pancreas is unremarkable to the extent visualized. The kidneys are normal in size, shape and axis. Aorta and cava are within normal limits. IMPRESSION: HEPATOSPLENOMEGALY. NO ACUTE DISEASE.
--- NOTE | 2020-08-21 14:19 | NUR ---
SUPERVISOR FERTILIZER NOTES PT WAS ACCEPTED AT [facility], PENDING COVID RESULTS. COVID ORDERED. WILL FOLLOW UP.
[2020-08-21] MEDS: Meropenem 1 GM in NS 55 ML IVPB SCH ×2 (14:40→22:32)
--- NOTE | 2020-08-21 15:42 | NUR ---
NURSE NOTES: covid swab done and sent to lab.
[2020-08-21 16:00] VITALS: BP 102/55
--- NOTE | 2020-08-21 16:30 | NUR ---
NURSE NOTE: Dr Rai is aware about residual 110cc, waiting to call back.
--- NOTE | 2020-08-21 17:00 | NUR ---
NURSE NOTES: wound treatment done as order and pt tolerated well. g tube dressing changed.
[2020-08-21] MEDS: Amiodarone 200mg tab GT SCH (18:13)
--- NOTE | 2020-08-21 18:37 | NUR ---
NURSE NOTES: gt feeding was off from 8am to 12 because of 20hrs feeding and stop at 1800 because of 110cc residual. Addendum: 08/21/20 at 1846 by Georgie Castillo RN ERROR WRONG PT.
--- NOTE | 2020-08-21 18:46 | NUR ---
NURSE NOTES: gt feeding was off from 8am to 10 because of Abd us and stop at 1800 because of 110cc residual.
--- NOTE | 2020-08-21 19:10 | NUR ---
NURSE NOTES: Received report from Mandie SMALLWOOD. Patient in bed in semi fowlers position. Sleeping but easy arousable with touch and voice , non verbal, tracks with eyes, spontaneous eye opening noted. On trach 10 liters ,on tube feeding Vital AF at 70 cc/hr but stop @1800 per am RN because of residual 110cc, with flush 100 cc every 4 hours, Gt is intact, patent and flushed well, noted of 20 cc residual. Patient has [place] cath 16 Fr,draining color light alec urine via gravity. PICC line is to left upper arm,intact, patent and flushed well, dressing is clean dry and intact. Safety measures in place, call light is within reach, bed is lowered, locked, alarm is on, will continue to monitor for comfort and safety.
--- NOTE | 2020-08-21 19:17 | NUR ---
NURSE HAND-OFF REPORT: Important Events on Shift:pt has 110cc g tube residual. Patient Status: Diet: Pending Orders: Pending Results/Labs: Pending MD notification: Latest Vital Signs: Temperature 97.8 , Pulse 79 , B/P 102 /55 , Respiratory Rate 22 , O2 SAT 93 , Trach Collar, O2 Flow Rate 10.0 . Vital Sign Comment: EKG Rhythm: Sinus Rhythm Rhythm change?: N MD Notified?: N -Dr. Aubree VALDEZ Response: Message left await call Latest Ramirez Fall Score: 70 Fall Risk: High Risk Safety Measures: Call light Within Reach, Bed Alarm Zone 1, Side Rails Side Rails x3, Bed position Low and Locked. Fall Precautions: Patient Fall Education Report given to . pt is awake and stable, no stress noted. endorsed plan of care. endorsed to monitor g tube residual and F/U with Dr Rai.
[2020-08-21 20:00] VITALS: BP 118/60
--- NOTE | 2020-08-21 20:00 | NUR ---
NURSE NOTES: Rechecked gtube, intact, patent and flushed well with residual of 20cc. Restarted feeding @30 cc/hr. Will increase it as tolerated.
[2020-08-21] MEDS: Dyna-Hex 2% Top Sol 2oz TOPIC SCH (20:33)
[2020-08-21] MEDS: Atorvastatin 20mg tab ORAL SCH (21:04)
--- NOTE | 2020-08-21 21:21 | NUR ---
NURSE NOTES: Removed medication for registered nurse, Levetiracetam 1000 mg.
--- NOTE | 2020-08-21 21:45 | General Progress Note ---
Subjective Allergies: Coded Allergies: No Known Allergies (Unverified , 11/02/19) Subjective NAD tolerating TF LFT improving abd U/S negative except for HSM Objective Last 24 Hour Vital Signs Date Time Temp Pulse Resp B/P (MAP) Pulse Ox O2 Delivery O2 Flow Rate FiO2 08/21/20 21:04 81 118/60 08/21/20 20:00 98.1 81 28 118/60 (79) 94 08/21/20 19:55 79 18 97 T-Piece 10.0 35 08/21/20 19:55 97 T-Piece 10.0 35 08/21/20 19:40 79 08/21/20 16:06 79 08/21/20 16:00 97.8 83 22 102/55 (71) 93 08/21/20 13:13 94 T-Piece 10.0 35 08/21/20 12:00 97.6 74 21 91/51 (64) 97 08/21/20 11:43 73 08/21/20 09:29 86 101/55 08/21/20 09:00 Trach Collar 10.0 08/21/20 08:00 97.5 86 22 101/55 (70) 98 08/21/20 07:38 81 08/21/20 07:35 97 T-Piece 10.0 35 08/21/20 07:30 82 18 97 T-Piece 10.0 35 08/21/20 04:00 97.4 90 17 103/59 (74) 96 08/21/20 03:07 81 08/21/20 01:33 98 T-Piece 10.0 35 08/21/20 00:00 97.2 82 16 100/56 (71) 92 08/20/20 23:11 82 Intake and Output 08/20/20 08/21/20 19:00 07:00 Intake Total 1775 ml 1004.45 ml Output Total 900 ml Balance 1775 ml 104.45 ml Intake Free Water 180 ml 160 ml IV Total 825 ml 494.45 ml Tube Feeding 770 ml 350 ml Output Urine Total 900 ml Laboratory Tests 08/21/20 05:16: White Blood Count 8.4, Red Blood Count 2.91L, Hemoglobin 8.0L, Hematocrit 26.5L, Mean Corpuscular Volume 91, Mean Corpuscular Hemoglobin 27.4, Mean Corpuscular Hemoglobin Concent 30.1L, Red Cell Distribution Width 15.8H, Platelet Count 358, Mean Platelet Volume 5.8L, Neutrophils (%) (Auto) 72.3, Lymphocytes (%) (Auto) 18.4L, Monocytes (%) (Auto) 5.5, Eosinophils (%) (Auto) 3.1H, Basophils (%) (Auto) 0.7, Sodium Level 149H, Potassium Level 3.6, Chloride Level 113H, Carbon Dioxide Level 28, Anion Gap 8, Blood Urea Nitrogen 62H, Creatinine 1.0, Estimat Glomerular Filtration Rate > 60, Glucose Level 125H, Calcium Level 8.4L, Total Bilirubin 0.4, Aspartate Amino Transf (AST/SGOT) 55H, Alanine Aminotransferase (ALT/SGPT) 131H, Alkaline Phosphatase 135H, Total Creatine Kinase 15L, Total Protein 6.8, Albumin 0.9L, Globulin 5.9, Albumin/Globulin Ratio 0.2L Height (Feet): 5 Height (Inches): 4.00 Weight (Pounds): 171 Objective Eldely WM NCAT (+) trach , T tube Coarse BS RRR abd soft (+) GT ext no edema Assessment/Plan Status: stable, progressing Assessment/Plan: Assessment - Abnormal LFT, ? etiology - ? meds (? Amio - more likely, ? Statin) - ? liver / gallbladder - ? rhabdo - ? infiltrative d/o (HSM) - UGIB - resolved - Anemia, s/p transfusion - h/o PUD - resp failure, s/p trach - dysphagia, s/p PEG - atrial fibrillation - h/o DVT - hypernatremia - loose BM - decubitus ulcers Recommendations - follow LFT - ? reduce Amio dose if possible - anticoagulation - H2B BID indefinitely - vital AF - protein supplements - TID - MVI - Vitamin C - free water - follow H&H - monitor BM Akiko Rai MD Aug 21, 2020 21:45
[2020-08-21] MEDS: Metoclopramide 10mg/2ml Inj IVP SCH (22:32)
[2020-08-22] VITALS: BP 104/56
--- NOTE | 2020-08-22 | NUR ---
NURSE NOTES: Rechecked gtube, intact, patent and flushed well , no residual noted. Increased feeding rate to 40 cc/hr.
[2020-08-22 04:00] VITALS: BP 110/68
--- NOTE | 2020-08-22 04:00 | NUR ---
NURSE NOTES: Rechecked gtube, intact, patent and flushed well, no residual noted. Increased feeding rate to 50cc/hr.Will continue to monitor
[2020-08-22] MEDS: Metoclopramide 10mg/2ml Inj IVP SCH ×4 (04:49→21:49)
[2020-08-22] MEDS: Meropenem 1 GM in NS 55 ML IVPB SCH ×3 (05:42→21:49)
[2020-08-22 06:21] LABS: ALANINE AMINOTRANSFERASE 92 U/L (12-78); ALBUMIN 0.9 G/DL (3.4-5.0); ALBUMIN/GLOBULIN RATIO 0.2 (1.0-2.7); ALKALINE PHOSPHATASE 115 U/L (46-116); ANION GAP 6 mmol/L (5-15); ASPARTATE AMINO TRANSFERASE 32 U/L (15-37); BILIRUBIN,TOTAL 0.4 MG/DL (0.2-1.0); BLOOD UREA NITROGEN 49 mg/dL (7-18); CALCIUM 8.1 MG/DL (8.5-10.1); CARBON DIOXIDE 28 MMOL/L (21-32); CHLORIDE 110 MMOL/L (98-107); POTASSIUM 3.5 MMOL/L (3.5-5.1); SODIUM 144 MMOL/L (136-145)
--- NOTE | 2020-08-22 06:46 | NUR ---
NURSE NOTES: Dr Jaramillo came by, updated the status of the pt. Informed about the gastric residual. No new order at this time.
--- NOTE | 2020-08-22 07:33 | NUR ---
NURSE HAND-OFF REPORT: Important Events on Shift: Monitor gastric residual Patient Status: Stable Diet: Vital Af 1.2 Pending Orders: Pending Results/Labs: Pending MD notification: Latest Vital Signs: Temperature 98.1 , Pulse 94 , B/P 110 /68 , Respiratory Rate 28 , O2 SAT 94 , Trach Collar, O2 Flow Rate 10.0 . Vital Sign Comment: Stable EKG Rhythm: Sinus Rhythm Rhythm change?: MD Notified?: MD Response: Latest Ramirez Fall Score: 70 Fall Risk: High Risk Safety Measures: Call light Within Reach, Bed Alarm Zone 1, Side Rails Side Rails x3, Bed position Low and Locked. Fall Precautions: Patient Fall Education Report given to Singh Arndt RN.
--- NOTE | 2020-08-22 07:33 | NUR ---
NURSE NOTES: Received hand-off report from SELIN Darby. Patient in stable condition, spO2 94% on trach 10L 35%, tolerating vital 1.2 AF 50mL well, HOB at 45 degrees, no aspiration noted, breathing unlabored. Bed in lowest and locked position, bed alarm on, call light within reach. patient monitor in place, two side rails up.
[2020-08-22 08:00] VITALS: BP 115/62
--- NOTE | 2020-08-22 08:19 | Pulmonology Progress Note ---
Subjective ROS Limited/Unobtainable: Yes Allergies: Coded Allergies: No Known Allergies (Unverified , 11/02/19) All Systems: reviewed and negative except above Subjective CARE NOTED nonverbal on oxygen at 35% bcx+ sputum + s/p tap Objective Last 24 Hour Vital Signs Date Time Temp Pulse Resp B/P (MAP) Pulse Ox O2 Delivery O2 Flow Rate FiO2 08/22/20 08:00 98.0 96 22 115/62 (79) 94 08/22/20 04:00 98.1 94 28 110/68 (82) 94 08/22/20 03:40 93 08/22/20 01:14 95 T-Piece 10.0 35 08/22/20 00:00 98.2 73 22 104/56 (72) 96 08/21/20 23:34 92 08/21/20 21:04 81 118/60 08/21/20 21:00 Trach Collar 10.0 08/21/20 20:00 98.1 81 28 118/60 (79) 94 08/21/20 19:55 79 18 97 T-Piece 10.0 35 08/21/20 19:55 97 T-Piece 10.0 35 08/21/20 19:40 79 08/21/20 16:06 79 08/21/20 16:00 97.8 83 22 102/55 (71) 93 08/21/20 13:13 94 T-Piece 10.0 35 08/21/20 12:00 97.6 74 21 91/51 (64) 97 08/21/20 11:43 73 08/21/20 09:29 86 101/55 08/21/20 09:00 Trach Collar 10.0 Intake and Output 08/21/20 08/22/20 19:00 07:00 Intake Total 1940 ml 1110 ml Output Total 1000 ml 600 ml Balance 940 ml 510 ml Intake Free Water 300 ml 250 ml IV Total 940 ml 430 ml Tube Feeding 700 ml 430 ml Output Urine Total 1000 ml 600 ml # Bowel Movements 2 1 Objective WDWN NAD awake chronically ill moderate breath sounds bilaterally without rhonchi [id number] NABS nontender GT no CCE nonfocal weak wounds noted Laboratory Tests 08/22/20 05:00: Sodium Level 144, Potassium Level 3.5, Chloride Level 110H, Carbon Dioxide Level 28, Anion Gap 6, Blood Urea Nitrogen 49H, Creatinine 1.0, Estimat Glomerular Filtration Rate > 60, Glucose Level 178H, Calcium Level 8.1L, Total Bilirubin 0.4, Aspartate Amino Transf (AST/SGOT) 32, Alanine Aminotransferase (ALT/SGPT) 92H, Alkaline Phosphatase 115, Total Protein 6.6, Albumin 0.9L, Globulin 5.7, Albumin/Globulin Ratio 0.2L Current Medications Medications (Trade) Dose Ordered Sig/Clive Route PRN Reason Start Time Stop Time Status Last Admin Dose Admin Acetaminophen (Tylenol) 650 mg Q4H PRN GT Temp >100.5 08/18/20 21:15 09/17/20 21:14 08/18/20 21:36 Amiodarone HCl (Cordarone) 400 mg DAILY@1800 GT 08/10/20 18:00 10/28/20 17:59 08/21/20 18:13 Ascorbic Acid (Vitamin C) 500 mg DAILY ORAL 08/17/20 16:00 09/16/20 15:59 08/21/20 09:29 Atorvastatin Calcium (Lipitor) 10 mg BEDTIME ORAL 08/05/20 21:00 10/22/20 20:59 08/21/20 21:04 Chlorhexidine Gluconate (Jennifer-Hex 2%) 1 applic DAILY@2000 TOPIC 07/17/20 20:00 10/15/20 19:59 08/21/20 20:33 Dextrose 1,000 ml @ 75 mls/hr [id number] IV 08/19/20 15:15 09/18/20 15:14 08/21/20 18:12 Famotidine (Pepcid) 20 mg Q12HR GT 07/16/20 21:00 10/14/20 20:59 08/21/20 21:04 Finasteride (Proscar) 5 mg DAILY ORAL 07/15/20 09:00 10/13/20 08:59 08/21/20 09:29 Hydralazine HCl (Apresoline) 25 mg Q6H PRN GT SBP above 150 07/24/20 23:30 10/22/20 23:29 07/26/20 05:22 Levetiracetam (Keppra) 1,000 mg Q12HR ORAL 08/12/20 21:00 09/11/20 20:59 08/21/20 21:22 Meropenem 1 gm/ Sodium Chloride 55 ml @ 110 mls/hr Q8HR IVPB 08/21/20 14:00 08/26/20 13:59 08/22/20 05:42 Metoclopramide HCl (Reglan) 5 mg Q6H IVP 08/21/20 22:00 09/20/20 21:59 08/22/20 04:49 Metoprolol Tartrate (Lopressor) 100 mg Q12HR ORAL 08/13/20 09:00 11/11/20 08:59 08/21/20 21:04 Multivitamins (Multivitamins) 1 tab DAILY ORAL 08/17/20 16:00 09/16/20 15:59 08/21/20 09:29 Sodium Hypochlorite (Dakin's Half Strength) 1 applic DAILY TOPIC 08/19/20 16:30 09/18/20 16:29 08/21/20 09:30 Assessment/Plan Assessment/Plan Impression: Healthcare-associated pneumonia Acute respiratory failure with hypoxia Tracheostomy status Pleural effusion, left-recurrent s/p tap Decubitus ulcers Urinary tract infection Anemia S/p previous Craniotomy, RCA occlusion, WASTE DISPOSAL LEAKAGE TESTER shunt Seizure history GERD, dysphagia s/p GJ tube h/o Hypertension h/o Atrial fibrillation Previous DVT and Pulmonary Embolism, hypernatremia bacteremia Plan events reviewed on antibiotics ID noted CXR improved monitor HH for change J tube feeds monitor oxygen needs nebs as needed Wound care Cardiology follow up 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
[2020-08-22] MEDS: Ascorbic Acid 500mg tab ORAL SCH (08:50)
[2020-08-22] MEDS: Metoprolol Tartrate 100mg tab ORAL SCH ×2 (08:51→21:42)
[2020-08-22] MEDS: Dakin's 0.25% (Half Strength) 16oz TOPIC SCH (08:55)
--- NOTE | 2020-08-22 10:40 | NUR ---
RD ASSESSMENT & RECOMMENDATIONS SEE CARE ACTIVITY FOR COMPLETE ASSESSMENT DAILY ESTIMATED NEEDS: Needs based on Wounds, pulmonary/ 74.5kg 25-30 kcals/kg 7327-3206 total kcals 1.5-2 g protein/kg 111-149 g total protein 25-30 mL/kg 4916-2738 total fluid mLs NUTRITION DIAGNOSIS: * Swallowing difficulty R/T dysphagia, h/o craniotomy, respiratory failure as evidenced by pt on T-collar, GJ tube dependent. * Increased kcal/prot/micronutrients needs R/T wound healing as evidenced by pt admitted w/ multiple advanced wounds including full thickness wound x 7 and unstageable wounds x 2, refer to WC eval. CURRENT TF:Vital AF 1.2 @70ml/hr ENTERAL NUTRITION RECOMMENDATIONS: Vital AF 1.2 @ 65ml/hr x 24 hrs to provide 1560ml, 1872kcal, 117g prot, 1265ml free water * Lower goal rate to 65ml/hr x 24 hrs: meets 100% est kcal/prot needs * HOB over 30 degrees/ water flush 180ml q 6hrs without IVF ------ elemental TF formula of Vital AF not indicated, consider changing TF to Glucerna 1.2 @ 65ml/hr x 24 hrs + Prosource 1pkt TID to provide 1560ml, 1872kcal, 94g+ 33g prot, 1259ml free water ADDITIONAL RECOMMENDATIONS: * Calibrated bedscale wt * Wound Care: Con't Vit C 500mg BID, ZnSO4 220mg QD x 10 days add Stevie BID * Monitor lytes, replete as needed * DC D5 for improved BG control increase H2O flushes instead (Na now wnl, BUN elev) * Consider NISS .
--- NOTE | 2020-08-22 11:08 | Infectious Diseases Prog Note ---
"Assessment/Plan Assessment/Plan antibiotics : meropenem A 1. pseudomonas | proteus pneumonia. COVID19 test is negative. 2. proteus | providencia sepsis 3. pseudomonas UTI 4. Hypertension. 5. Atrial fibrillation 6. respiratory failure s/p tracheostomy 7. pleural effusion s/p thoracentesis P 1. continue meropenem 2. start iv colistin 3. will follow up cultures Subjective ROS Limited/Unobtainable: Yes Allergies: Coded Allergies: No Known Allergies (Unverified , 11/02/19) Objective Last 24 Hour Vital Signs Date Time Temp Pulse Resp B/P (MAP) Pulse Ox O2 Delivery O2 Flow Rate FiO2 08/22/20 08:51 96 125/62 08/22/20 08:00 88 08/22/20 08:00 98.0 96 22 115/62 (79) 94 08/22/20 04:00 98.1 94 28 110/68 (82) 94 08/22/20 03:40 93 08/22/20 01:14 95 T-Piece 10.0 35 08/22/20 00:00 98.2 73 22 104/56 (72) 96 08/21/20 23:34 92 08/21/20 21:04 81 118/60 08/21/20 21:00 Trach Collar 10.0 08/21/20 20:00 98.1 81 28 118/60 (79) 94 08/21/20 19:55 79 18 97 T-Piece 10.0 35 08/21/20 19:55 97 T-Piece 10.0 35 08/21/20 19:40 79 08/21/20 16:06 79 08/21/20 16:00 97.8 83 22 102/55 (71) 93 08/21/20 13:13 94 T-Piece 10.0 35 08/21/20 12:00 97.6 74 21 91/51 (64) 97 08/21/20 11:43 73 Height (Feet): 5 Height (Inches): 4.00 Weight (Pounds): 171 HEENT: status post trach Respiratory/Chest: lungs clear Cardiovascular: normal rate, regular rhythm, no gallop/murmur Abdomen: soft, non tender, other - GT Extremities: no edema Laboratory Tests Test 08/22/20 05:00 Sodium Level 144 MMOL/L (136-145) Potassium Level 3.5 MMOL/L (3.5-5.1) Chloride Level 110 MMOL/L (98-107) H Carbon Dioxide Level 28 MMOL/L (21-32) Anion Gap 6 mmol/L (5-15) Blood Urea Nitrogen 49 mg/dL (7-18) H Creatinine 1.0 MG/DL (0.55-1.30) Estimat Glomerular Filtration Rate > 60 mL/min (>60) Glucose Level 178 MG/DL (74-106) H Calcium Level 8.1 MG/DL (8.5-10.1) L Total Bilirubin 0.4 MG/DL (0.2-1.0) Aspartate Amino Transf (AST/SGOT) 32 U/L (15-37) Alanine Aminotransferase (ALT/SGPT) 92 U/L (12-78) H Alkaline Phosphatase 115 U/L (46-116) Total Protein 6.6 G/DL (6.4-8.2) Albumin 0.9 G/DL (3.4-5.0) L Globulin 5.7 g/dL Albumin/Globulin Ratio 0.2 (1.0-2.7) L Current Medications Medications (Trade) Dose Ordered Sig/Clive Route PRN Reason Start Time Stop Time Status Last Admin Dose Admin Acetaminophen (Tylenol) 650 mg Q4H PRN GT Temp >100.5 08/18/20 21:15 09/17/20 21:14 08/18/20 21:36 Amiodarone HCl (Cordarone) 400 mg DAILY@1800 GT 08/10/20 18:00 10/28/20 17:59 08/21/20 18:13 Ascorbic Acid (Vitamin C) 500 mg DAILY ORAL 08/17/20 16:00 09/16/20 15:59 08/22/20 08:50 Atorvastatin Calcium (Lipitor) 10 mg BEDTIME ORAL 08/05/20 21:00 10/22/20 20:59 08/21/20 21:04 Chlorhexidine Gluconate (Jennifer-Hex 2%) 1 applic DAILY@2000 TOPIC 07/17/20 20:00 10/15/20 19:59 08/21/20 20:33 Dextrose 1,000 ml @ 75 mls/hr [id number] IV 08/19/20 15:15 09/18/20 15:14 08/22/20 08:51 Famotidine (Pepcid) 20 mg Q12HR GT 07/16/20 21:00 10/14/20 20:59 08/22/20 08:50 Finasteride (Proscar) 5 mg DAILY ORAL 07/15/20 09:00 10/13/20 08:59 08/22/20 08:50 Hydralazine HCl (Apresoline) 25 mg Q6H PRN GT SBP above 150 07/24/20 23:30 10/22/20 23:29 07/26/20 05:22 Levetiracetam (Keppra) 1,000 mg Q12HR ORAL 08/22/20 09:07 10/06/20 09:06 08/22/20 09:48 Meropenem 1 gm/ Sodium Chloride 55 ml @ 110 mls/hr Q8HR IVPB 08/21/20 14:00 08/26/20 13:59 08/22/20 05:42 Metoclopramide HCl (Reglan) 5 mg Q6H IVP 08/21/20 22:00 09/20/20 21:59 08/22/20 09:49 Metoprolol Tartrate (Lopressor) 100 mg Q12HR ORAL 08/13/20 09:00 11/11/20 08:59 08/22/20 08:51 Multivitamins (Multivitamins) 1 tab DAILY ORAL 08/17/20 16:00 09/16/20 15:59 08/22/20 08:51 Sodium Hypochlorite (Dakin's Half Strength) 1 applic DAILY TOPIC 08/19/20 16:30 09/18/20 16:29 08/22/20 08:55 Kristie Reina MD Aug 22, 2020 11:08"
[2020-08-22 12:00] VITALS: BP 120/70
--- NOTE | 2020-08-22 12:54 | General Progress Note ---
Subjective ROS Limited/Unobtainable: Yes Constitutional: Reports: malaise, weakness HEENT: Reports: no symptoms Cardiovascular: Reports: no symptoms Respiratory: Reports: cough, shortness of breath, sputum Gastrointestinal/Abdominal: Reports: difficulty swallowing Genitourinary: Reports: no symptoms Neurologic/Psychiatric: Reports: pre-existing deficit Endocrine: Reports: no symptoms Hematologic/Lymphatic: Reports: anemia Allergies: Coded Allergies: No Known Allergies (Unverified , 11/02/19) All Systems: reviewed and negative except above Subjective no events. stable. fevers better. on colistin now. cultures noted. awake but nonverbal. no distress. tolerating feeds. no bleeding. Objective Last 24 Hour Vital Signs Date Time Temp Pulse Resp B/P (MAP) Pulse Ox O2 Delivery O2 Flow Rate FiO2 08/22/20 09:00 Trach Collar 10.0 08/22/20 08:51 96 125/62 08/22/20 08:00 88 08/22/20 08:00 98.0 96 22 115/62 (79) 94 08/22/20 04:00 98.1 94 28 110/68 (82) 94 08/22/20 03:40 93 08/22/20 01:14 95 T-Piece 10.0 35 08/22/20 00:00 98.2 73 22 104/56 (72) 96 08/21/20 23:34 92 08/21/20 21:04 81 118/60 08/21/20 21:00 Trach Collar 10.0 08/21/20 20:00 98.1 81 28 118/60 (79) 94 08/21/20 19:55 79 18 97 T-Piece 10.0 35 08/21/20 19:55 97 T-Piece 10.0 35 08/21/20 19:40 79 08/21/20 16:06 79 08/21/20 16:00 97.8 83 22 102/55 (71) 93 08/21/20 13:13 94 T-Piece 10.0 35 Intake and Output 08/21/20 08/22/20 19:00 07:00 Intake Total 1940 ml 1110 ml Output Total 1000 ml 600 ml Balance 940 ml 510 ml Intake Free Water 300 ml 250 ml IV Total 940 ml 430 ml Tube Feeding 700 ml 430 ml Output Urine Total 1000 ml 600 ml # Bowel Movements 2 1 Laboratory Tests 08/22/20 05:00: Sodium Level 144, Potassium Level 3.5, Chloride Level 110H, Carbon Dioxide Level 28, Anion Gap 6, Blood Urea Nitrogen 49H, Creatinine 1.0, Estimat Glomerular Filtration Rate > 60, Glucose Level 178H, Calcium Level 8.1L, Total Bilirubin 0.4, Aspartate Amino Transf (AST/SGOT) 32, Alanine Aminotransferase (ALT/SGPT) 92H, Alkaline Phosphatase 115, Total Protein 6.6, Albumin 0.9L, Globulin 5.7, Albumin/Globulin Ratio 0.2L Height (Feet): 5 Height (Inches): 4.00 Weight (Pounds): 171 Objective General Appearance: WD/WN, confused EENT: normal ENT inspection Neck: normal alignment Cardiovascular: normal rate, regular rhythm Respiratory/Chest: rhonchi - bilaterally Abdomen: normal bowel sounds, non tender, soft, no organomegaly Edema: no edema noted Leg (L), no edema noted Leg (R) Neurologic: disoriented, aphasia Skin: normal pigmentation Assessment/Plan Problem List: (1) Anemia ICD Codes: D64.9 - Anemia, unspecified SNOMED: 825780339, 340770754 Qualifiers: Qualified Codes: D50.0 - Iron deficiency anemia secondary to blood loss (chronic) (2) Pleural effusion, left ICD Codes: J90 - Pleural effusion, not elsewhere classified SNOMED: 13512351, 610800369 (3) Malfunction of gastrostomy tube ICD Codes: K94.23 - Gastrostomy malfunction SNOMED: 458006961 (4) Acute respiratory failure with hypoxia ICD Codes: J96.01 - Acute respiratory failure with hypoxia SNOMED: 09718578, 120827002 (5) HCAP (healthcare-associated pneumonia) ICD Codes: J18.9 - Pneumonia, unspecified organism SNOMED: 778511231, 081838463 Status: stable, progressing Assessment/Plan: iv abx per id follow up cultures trach care resp rx/suctioning as needed tube feeds monitor residuals sz rx bp rx ?resume eliquis- has had problems with bleeding from wounds in the past monitor labs replace k- low Angel Jaramillo MD Aug 22, 2020 12:54
[2020-08-22] MEDS: Colistin 150mg vial IVP SCH ×2 (13:07→21:49)
--- NOTE | 2020-08-22 15:32 | NUR ---
*-*DISCHARGED PLANNING*-* PATIENT HAS BEEN ACCEPTED TO: [facility] P: [phone] ROOM# 24.A
[2020-08-22 16:00] VITALS: BP 117/69
--- NOTE | 2020-08-22 16:20 | NUR ---
NURSE NOTES: Dr. Reina made aware of PCR negative result and she explained that patient was started on Clonistine and is not yet cleared for discharge just yet. Relayed response to ALEXIA Pappas.
--- NOTE | 2020-08-22 16:58 | NUR ---
*-*DISCHARGED PLANNING*-* PATIENT HAS BEEN ACCEPTED TO: [facility] P: [phone] ROOM# 24.A ~~~~~~~~~~~PENDING DISCHARGE ORDER~~~~~~~~~~~~~~~~~
[2020-08-22] MEDS: Amiodarone 200mg tab GT SCH (17:13)
--- NOTE | 2020-08-22 18:45 | NUR ---
NURSE NOTES:WOUND CARE FOLLOW-UP NOTES:Pt presented on admission with Multiple Pressure Injuries, Contractures. Full thickness Sacral Pressure Injury(L)10.7cm x (W)9.4cm x (D)1.5cm, Undermining clockwise 10-1 by 1.3cm @10o'clock. Beefy red granulation at base of wound. 75% edges of wound are flat and adherent to base of wound. Small amt sanguineous exudate noted. No odor noted. Periwound is less erythematous in comparison to previous assessment. Full Thickness Pressure Injury outer LLQ Buttocks(L)4.2cm x (W)6.2cm x (D)2.3cm, Undermining clockwise 9-3 by 3.7cm @10o'clock.Base of wound is moist ,pink with bone exposure with tunneling uner exposed bone by 5.5cm@1-2o'clock. Small amt seropurulent exudate noted. Wound is malodorous. Non-blanchable erythema periwound. Full Thickness Pressure Injury L Ischium(L)2cm x (W)0.9cm x (D)0.1cm. Base of wound is moist and granular.Edges flat and adherent to base of wound. No odor or exudate noted. Non-blanchable erythema periwound. Non-R hip /R trochanteric erythema resolved. Full Thickness Pressure Injury Lateral L Tibia(L)24.5cm x (W)3.5cm.Beefy granulation at base of wound. Scattered small areas of necrosis along edges of wound. Moderate amt sanguineous exudate noted. No odor noted. No erythema or evidence of further skin breakdown periwound. Full thickness Pressure Injury L Heel extending well into plantar aspect(L)10.2cm x (W)7.3cm x (D)0.6cm. Base of wound is 60% antonio and moist ,40% fascia and bone exposure and loose fibrinous slough. (+) epibole at proximal borders of wound in close proximity to achilles. Moderate amt green exudate noted. Wound is malodorous. Full thickness wound lateral L foot. (L)2cm x (W)3.5cm. Base of wound is 100% soft necrosis with erythematous and macerated borders. Small amt green exudate. Wound is malodorous.Periwound ,including space between this wound and wound distal L foot is purple/red and fluctuant. Full thickness wound distal/lateral L foot (L)1.3cm x (W)4cm. Base of wound is 100% soft necrosis. Edges are macerated. Small amt green exudate. Wound is malodorous. Periwound is maroon and fluctuant. Unstageable Pressure Injury dorsal L foot (L)1cm x (W) 0.9cm.Base of wound is 100% necrotic. Edges are adherent but erythematous. Periwound is erythematous without induration or fluctuance. Full thickness Pressure Injury R Heel extending well into plantar aspect of heel(L)9.4cm x (W)12cm x (D)0.8cm. Base of wound is 40% antonio ,60% mixed necrosis,fibrinous slough. Fascia and bone exposure noted. (+) Epibole along proximal borders of wound. Edges are otherwise macerated. Moderate amt. green exudate noted. Periwound is fluctuant and pale. Unstageable Pressure Injury distal/lateral R foot (L)0.5cm x (W)0.6cm. Base of wound is necrotic but dry. Edges are adherent to base of wound. No erythema or fluctuance periwound. Wound Tx orders continued as ordered. All wound prevention protocols continued as care-planned.
--- NOTE | 2020-08-22 19:20 | NUR ---
NURSE HAND-OFF REPORT: Important Events on Shift: Wound care performed, discharge plan to Adali Jennings SR throughout shift, spO2 97%, breathing even and unlabored Patient Status: stable condition, full code Diet: vital AF 1.2 at 50mL, last checked residual 15mL at 18:30 Pending Orders: [] Pending Results/Labs:[] Pending MD notification:[] Latest Vital Signs: Temperature 98.2 , Pulse 91 , B/P 117 /69 , Respiratory Rate 18 , O2 SAT 98 , Trach Collar, O2 Flow Rate 10.0 . Vital Sign Comment: [] EKG Rhythm: Sinus Rhythm Rhythm change?: N Notified?: N -Dr. Aubree VALDEZ Response: Message left await call Latest Ramirez Fall Score: 70 Fall Risk: High Risk Safety Measures: Call light Within Reach, Bed Alarm Zone 1, Side Rails Side Rails x3, Bed position Low and Locked. Fall Precautions: Yellow Socks Patient Fall Education Report given to Eloy Gerard RN.
--- NOTE | 2020-08-22 19:36 | NUR ---
NURSE NOTES: Patient received from Mayra SMALLWOOD. Patient A&o xo, opens eye spontaneously. No s/s of pain and no respiratory distress noted. On T-piece @ 10L/min with Fio2 @ 35% saturating at 94-98%. Gtube patent and intact running Vital AF 1.2 @ 50cc/hr with a goal of 70cc/hr, will increase as tolerated. Flushing q4 with 100cc. [place] patent and intact draining well to gravity. Skin issues noted. PICC Line on Left upper arm, patent and intact running D5W @ 75cc/hr. Bed in lowest position and locked. Call light and bedside table within reach.
[2020-08-22 20:00] VITALS: BP 100/59
--- NOTE | 2020-08-22 20:57 | General Progress Note ---
Subjective Allergies: Coded Allergies: No Known Allergies (Unverified , 11/02/19) Subjective NAD tolerating TF no events overnight Objective Last 24 Hour Vital Signs Date Time Temp Pulse Resp B/P (MAP) Pulse Ox O2 Delivery O2 Flow Rate FiO2 08/22/20 19:05 91 18 98 T-Piece 10.0 35 08/22/20 19:05 98 T-Piece 10.0 35 08/22/20 16:00 98.2 79 20 117/69 (85) 100 08/22/20 16:00 79 08/22/20 13:00 98 T-Piece 10.0 35 08/22/20 13:00 86 18 98 T-Piece 10.0 35 08/22/20 12:00 81 08/22/20 12:00 98.1 96 22 120/70 (87) 96 08/22/20 09:00 Trach Collar 10.0 08/22/20 08:51 96 125/62 08/22/20 08:00 88 08/22/20 08:00 98.0 96 22 115/62 (79) 94 08/22/20 07:45 81 18 96 T-Piece 10.0 35 08/22/20 07:45 96 T-Piece 10.0 35 08/22/20 04:00 98.1 94 28 110/68 (82) 94 08/22/20 03:40 93 08/22/20 01:14 95 T-Piece 10.0 35 08/22/20 00:00 98.2 73 22 104/56 (72) 96 08/21/20 23:34 92 08/21/20 21:04 81 118/60 08/21/20 21:00 Trach Collar 10.0 Intake and Output 08/21/20 08/22/20 19:00 07:00 Intake Total 1940 ml 1110 ml Output Total 1000 ml 600 ml Balance 940 ml 510 ml Intake Free Water 300 ml 250 ml IV Total 940 ml 430 ml Tube Feeding 700 ml 430 ml Output Urine Total 1000 ml 600 ml # Bowel Movements 2 1 Laboratory Tests 08/22/20 05:00: Sodium Level 144, Potassium Level 3.5, Chloride Level 110H, Carbon Dioxide Level 28, Anion Gap 6, Blood Urea Nitrogen 49H, Creatinine 1.0, Estimat Glomerular Filtration Rate > 60, Glucose Level 178H, Calcium Level 8.1L, Total Bilirubin 0.4, Aspartate Amino Transf (AST/SGOT) 32, Alanine Aminotransferase (ALT/SGPT) 92H, Alkaline Phosphatase 115, Total Protein 6.6, Albumin 0.9L, Globulin 5.7, Albumin/Globulin Ratio 0.2L Height (Feet): 5 Height (Inches): 4.00 Weight (Pounds): 171 Objective Eldely WM NCAT (+) trach , T tube Coarse BS RRR abd soft (+) GT ext no edema Assessment/Plan Status: stable, progressing Assessment/Plan: Assessment - Abnormal LFT, ? etiology - resolving - ? meds (? Amio , ? Statin) - ? liver / gallbladder - ? rhabdo - ? infiltrative d/o ([facility]) - UGIB - resolved - Anemia, s/p transfusion - h/o PUD - resp failure, s/p trach - dysphagia, s/p PEG - atrial fibrillation - h/o DVT - hypernatremia - loose BM - decubitus ulcers Recommendations - follow LFT - will check Mon - anticoagulation - H2B BID indefinitely - vital AF - protein supplements - TID - MVI - Vitamin C - free water - follow H&H - monitor Akiko Yu MD Aug 22, 2020 20:57
[2020-08-22] MEDS: Atorvastatin 20mg tab ORAL SCH (21:41)
--- NOTE | 2020-08-22 21:46 | Cardiology Progress Note ---
Subjective DATE OF SERVICE: Aug 21, 2020 (late entry) PICC line access remains in place. s/p 1700cc thorocentesis last week, and 1200cc L thorocentesis 08/18. Now has positive blood, urine, and sputum cultures with multiple gram negative pathogen. No new bleeding, since back on anticoagulation now following GI clearance. BP parameters stabilized. Monitor: AFib/flutter persisting still with increased ventricular rates now. Objective Last 24 Hour Vital Signs Date Time Temp Pulse Resp B/P (MAP) Pulse Ox O2 Delivery O2 Flow Rate FiO2 08/22/20 19:05 91 18 98 T-Piece 10.0 35 08/22/20 19:05 98 T-Piece 10.0 35 08/22/20 16:00 98.2 79 20 117/69 (85) 100 08/22/20 16:00 79 08/22/20 13:00 98 T-Piece 10.0 35 08/22/20 13:00 86 18 98 T-Piece 10.0 35 08/22/20 12:00 81 08/22/20 12:00 98.1 96 22 120/70 (87) 96 08/22/20 09:00 Trach Collar 10.0 08/22/20 08:51 96 125/62 08/22/20 08:00 88 08/22/20 08:00 98.0 96 22 115/62 (79) 94 08/22/20 07:45 81 18 96 T-Piece 10.0 35 08/22/20 07:45 96 T-Piece 10.0 35 08/22/20 04:00 98.1 94 28 110/68 (82) 94 08/22/20 03:40 93 08/22/20 01:14 95 T-Piece 10.0 35 08/22/20 00:00 98.2 73 22 104/56 (72) 96 08/21/20 23:34 92 ROS: unchanged from 07/14/20 HEENT: Thick Trach secretions RHYTHM: NSR, ST, PACs, Afib LUNGS: bilateral rhonchi CARDIAC: normal S1 and S2, rapid rate, arrhythmia ABDOMEN: normal bowel sounds, soft, G-Tube intact EXTREMITIES: normal range of motion, non-tender, trace edema, other - withdrawn Laboratory Tests Test 08/22/20 05:00 Sodium Level 144 MMOL/L (136-145) Potassium Level 3.5 MMOL/L (3.5-5.1) Chloride Level 110 MMOL/L (98-107) H Carbon Dioxide Level 28 MMOL/L (21-32) Anion Gap 6 mmol/L (5-15) Blood Urea Nitrogen 49 mg/dL (7-18) H Creatinine 1.0 MG/DL (0.55-1.30) Estimat Glomerular Filtration Rate > 60 mL/min (>60) Glucose Level 178 MG/DL (74-106) H Calcium Level 8.1 MG/DL (8.5-10.1) L Total Bilirubin 0.4 MG/DL (0.2-1.0) Aspartate Amino Transf (AST/SGOT) 32 U/L (15-37) Alanine Aminotransferase (ALT/SGPT) 92 U/L (12-78) H Alkaline Phosphatase 115 U/L (46-116) Total Protein 6.6 G/DL (6.4-8.2) Albumin 0.9 G/DL (3.4-5.0) L Globulin 5.7 g/dL Albumin/Globulin Ratio 0.2 (1.0-2.7) L Microbiology Date/Time Source Procedure Growth Status 08/21/20 15:30 Nasopharynx Coronavirus COVID-19 PCR ([facility]) - Final Complete Assessment/Plan Assessment/Plan Healthcare associated PNA Polymicrobial Gram negative bacteremia and sepsis - UTI Paroxysmal atrial fibrillation/flutter Paroxysmal atrial ectopy 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 Dyslipidemia on high dose statin - now dose adjusted Dehydration/hypernatremia Severe protein-calorie malnutrition Multiple wounds Anemia - s/p tx Pleural effusion - s/p left thorocentesis Titrate beta blockade dose as tolerated by BP; may have to digitalize. Abx per ID; await final cultures Resp support Cardiac monitoring Statin dose adjusted Amiodarone at increased dose to maintain sinus rhythm. Free water replacement as needed; on IVF for now. Diuresis based on daily assessments of volume status. Continue anticoagulation with caution due to bleeding risk Awaiting [facility] Dylan Sparks MD Aug 22, 2020 21:46
--- NOTE | 2020-08-22 21:48 | Cardiology Progress Note ---
Subjective DATE OF SERVICE: Aug 22, 2020 PICC line access remains in place. s/p 1700cc thorocentesis last week, and 1200cc L thorocentesis 08/18. Now has positive blood, urine, and sputum cultures with multiple gram negative pathogen. No new bleeding, since back on anticoagulation now following GI clearance. BP parameters stabilized. Monitor: AFib/flutter persisting still with better ventricular rates now. Objective Last 24 Hour Vital Signs Date Time Temp Pulse Resp B/P (MAP) Pulse Ox O2 Delivery O2 Flow Rate FiO2 08/22/20 19:05 91 18 98 T-Piece 10.0 35 08/22/20 19:05 98 T-Piece 10.0 35 08/22/20 16:00 98.2 79 20 117/69 (85) 100 08/22/20 16:00 79 08/22/20 13:00 98 T-Piece 10.0 35 08/22/20 13:00 86 18 98 T-Piece 10.0 35 08/22/20 12:00 81 08/22/20 12:00 98.1 96 22 120/70 (87) 96 08/22/20 09:00 Trach Collar 10.0 08/22/20 08:51 96 125/62 08/22/20 08:00 88 08/22/20 08:00 98.0 96 22 115/62 (79) 94 08/22/20 07:45 81 18 96 T-Piece 10.0 35 08/22/20 07:45 96 T-Piece 10.0 35 08/22/20 04:00 98.1 94 28 110/68 (82) 94 08/22/20 03:40 93 08/22/20 01:14 95 T-Piece 10.0 35 08/22/20 00:00 98.2 73 22 104/56 (72) 96 08/21/20 23:34 92 ROS: unchanged from 07/14/20 HEENT: Thick Trach secretions RHYTHM: NSR, ST, PACs, Afib LUNGS: bilateral rhonchi CARDIAC: normal S1 and S2, rapid rate, arrhythmia ABDOMEN: normal bowel sounds, soft, G-Tube intact EXTREMITIES: normal range of motion, non-tender, trace edema, other - withdrawn Laboratory Tests Test 08/22/20 05:00 Sodium Level 144 MMOL/L (136-145) Potassium Level 3.5 MMOL/L (3.5-5.1) Chloride Level 110 MMOL/L (98-107) H Carbon Dioxide Level 28 MMOL/L (21-32) Anion Gap 6 mmol/L (5-15) Blood Urea Nitrogen 49 mg/dL (7-18) H Creatinine 1.0 MG/DL (0.55-1.30) Estimat Glomerular Filtration Rate > 60 mL/min (>60) Glucose Level 178 MG/DL (74-106) H Calcium Level 8.1 MG/DL (8.5-10.1) L Total Bilirubin 0.4 MG/DL (0.2-1.0) Aspartate Amino Transf (AST/SGOT) 32 U/L (15-37) Alanine Aminotransferase (ALT/SGPT) 92 U/L (12-78) H Alkaline Phosphatase 115 U/L (46-116) Total Protein 6.6 G/DL (6.4-8.2) Albumin 0.9 G/DL (3.4-5.0) L Globulin 5.7 g/dL Albumin/Globulin Ratio 0.2 (1.0-2.7) L Microbiology Date/Time Source Procedure Growth Status 08/21/20 15:30 Nasopharynx Coronavirus COVID-19 PCR ([facility]) - Final Complete Assessment/Plan Assessment/Plan Healthcare associated PNA Polymicrobial Gram negative bacteremia and sepsis - UTI Paroxysmal atrial fibrillation/flutter Paroxysmal atrial ectopy Hx ICB with craniotomy and [employer] 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 Dyslipidemia on high dose statin - now dose adjusted Dehydration/hypernatremia Severe protein-calorie malnutrition Multiple wounds Anemia - s/p tx Pleural effusion - s/p left thorocentesis Titrate beta blockade dose as tolerated by BP; may have to digitalize. Abx per ID Resp support Cardiac monitoring Statin dose adjusted Amiodarone at increased dose to maintain sinus rhythm. Free water replacement as needed; on IVF for now. Diuresis based on daily assessments of volume status. Continue anticoagulation with caution due to bleeding risk Awaiting [facility] Dyaln Sparks MD Aug 22, 2020 21:48
[2020-08-22] MEDS: Dyna-Hex 2% Top Sol 2oz TOPIC SCH (21:49)
--- NOTE | 2020-08-22 23:54 | NUR ---
NURSE NOTES: Residual of 30mls, will keep same rate of 50mls/hr for now. Will recheck residual again at a later time and will increase feeding as tolerated
[2020-08-23] VITALS: BP 92/51
--- NOTE | 2020-08-23 01:00 | NUR ---
NURSE NOTES: Patient tolerating feeding rate well. Increased to 60mls/hr. Will re check residuals later on this shift.
--- NOTE | 2020-08-23 02:30 | NUR ---
NURSE NOTES: Patient tolerating feeding well.
[2020-08-23 03:59] VITALS: BP 98/60
[2020-08-23] MEDS: Metoclopramide 10mg/2ml Inj IVP SCH ×4 (04:09→23:18)
[2020-08-23] MEDS: Meropenem 1 GM in NS 55 ML IVPB SCH ×3 (05:09→23:18)
--- NOTE | 2020-08-23 06:25 | NUR ---
NURSE HAND-OFF REPORT: Important Events on Shift:[Small palpable mass on RLQ] Patient Status: [FC, Alert and oriented x4,] Diet: [Renal Diet] Pending Orders: [] Pending Results/Labs:[] Pending MD notification:[] Latest Vital Signs: Temperature 98.6 , Pulse 83 , B/P 98 /60 , Respiratory Rate 24 , O2 SAT 96 , Trach Collar, O2 Flow Rate 10.0 . Vital Sign Comment: [] EKG Rhythm: Sinus Rhythm Rhythm change?: N MD Notified?: N -Dr. Aubree VALDEZ Response: Message left await call Latest Ramirez Fall Score: 70 Fall Risk: High Risk Safety Measures: Call light Within Reach, Bed Alarm Zone 1, Side Rails Side Rails x3, Bed position Low and Locked. Fall Precautions: Yellow Socks Patient Fall Education Report given to []. Addendum: 08/23/20 at 0626 by Eloy Gerard RN Wrong patient
--- NOTE | 2020-08-23 06:26 | NUR ---
NURSE HAND-OFF REPORT: Important Events on Shift:[Increased Feeding from 50cc/hr to 60cc/hr, tolerating feeding well. Wound care done on sacrum and Left ischium ] Patient Status: [FC,] Diet: [Vital AF 1.2 @ 70cc/hr, q4 100cc flushing] Pending Orders: [] Pending Results/Labs:[] Pending MD notification:[] Latest Vital Signs: Temperature 98.6 , Pulse 83 , B/P 98 /60 , Respiratory Rate 24 , O2 SAT 96 , Trach Collar, O2 Flow Rate 10.0 . Vital Sign Comment: [] EKG Rhythm: Sinus Rhythm Rhythm change?: N Notified?: N -Dr. Aubree VALDEZ Response: Message left await call Latest Ramirez Fall Score: 70 Fall Risk: High Risk Safety Measures: Call light Within Reach, Bed Alarm Zone 1, Side Rails Side Rails x3, Bed position Low and Locked. Fall Precautions: Yellow Socks Patient Fall Education Report given to [].
--- NOTE | 2020-08-23 07:28 | NUR ---
NURSE NOTES: Patient report given to Adalgisa SMALLWOOD
--- NOTE | 2020-08-23 07:35 | NUR ---
NURSE NOTES: Received report from SELIN Loyns. Pt is resting in bed, sleeping. pt AOx0, unable to respond. no s/s or complaint of distress at this time. pt wounds noted, multiple unchangeable. Gtube running vital AF 1.2 cont at 60 cc, goal of 70cc. valles draining to gravity, yellow.. REBECCA central line running fluids at 75cc, asymptomatic and intact. Pt on p200 mattress. pt bed low and locked, call light in reach and bed alarm on.
[2020-08-23 08:00] VITALS: BP 102/94
[2020-08-23] MEDS: Ascorbic Acid 500mg tab ORAL SCH (08:12)
[2020-08-23] MEDS: Colistin 150mg vial IVP SCH ×2 (08:13→23:17)
[2020-08-23] MEDS: Metoprolol Tartrate 100mg tab ORAL SCH ×2 (08:13→21:00)
--- NOTE | 2020-08-23 08:31 | General Progress Note ---
Subjective ROS Limited/Unobtainable: No Allergies: Coded Allergies: No Known Allergies (Unverified , 11/02/19) Objective Last 24 Hour Vital Signs Date Time Temp Pulse Resp B/P (MAP) Pulse Ox O2 Delivery O2 Flow Rate FiO2 08/23/20 08:13 80 102/94 08/23/20 04:00 83 08/23/20 03:59 98.6 84 24 98/60 (73) 96 08/23/20 01:13 98 T-Piece 10.0 35 08/23/20 00:00 98.2 74 24 92/51 (65) 98 08/23/20 00:00 75 08/22/20 21:42 95 104/59 08/22/20 21:00 Trach Collar 10.0 08/22/20 20:00 85 08/22/20 20:00 98.5 89 24 100/59 (73) 100 08/22/20 19:05 91 18 98 T-Piece 10.0 35 08/22/20 19:05 98 T-Piece 10.0 35 08/22/20 16:00 98.2 79 20 117/69 (85) 100 08/22/20 16:00 79 08/22/20 13:00 98 T-Piece 10.0 35 08/22/20 13:00 86 18 98 T-Piece 10.0 35 08/22/20 12:00 81 08/22/20 12:00 98.1 96 22 120/70 (87) 96 08/22/20 09:00 Trach Collar 10.0 08/22/20 08:51 96 125/62 Intake and Output 08/22/20 08/23/20 19:00 07:00 Output Total 500 ml 500 ml Balance -500 ml -500 ml Output Urine Total 500 ml 500 ml # Voids 1 # Bowel Movements 1 1 Height (Feet): 5 Height (Inches): 4.00 Weight (Pounds): 171 General Appearance: lethargic EENT: normal ENT inspection Neck: supple Cardiovascular: normal rate Respiratory/Chest: decreased breath sounds Abdomen: hypoactive bowel sounds Extremities: non-tender Assessment/Plan Status: stable, progressing Assessment/Plan: Assessment/Plan Status: stable, progressing Assessment/Plan: Assessment - Abnormal LFT, ? etiology - resolving - ? meds (? Amio , ? Statin) - ? liver / gallbladder - ? rhabdo - ? infiltrative d/o ([facility]) - UGIB - resolved - Anemia, s/p transfusion - h/o PUD - resp failure, s/p trach - dysphagia, s/p PEG - atrial fibrillation - h/o DVT - hypernatremia - loose BM - decubitus ulcers Recommendations - follow LFT - will check Mon - anticoagulation - H2B BID indefinitely - vital AF - protein supplements - TID - MVI - Vitamin C - free water - follow H&H - monitor BM Kevin Garcias MD Aug 23, 2020 08:31
[2020-08-23] MEDS: Dakin's 0.25% (Half Strength) 16oz TOPIC SCH (09:22)
[2020-08-23] MEDS ORDERED: Tubing IV Secondary IV ONE (09:24)
[2020-08-23] MEDS ORDERED: NS 500ML ONE (10:35)
[2020-08-23] MEDS ORDERED: NS 275ml ONE (10:35)
--- NOTE | 2020-08-23 11:16 | General Progress Note ---
Subjective ROS Limited/Unobtainable: Yes Constitutional: Reports: malaise, weakness HEENT: Reports: no symptoms Cardiovascular: Reports: no symptoms Respiratory: Reports: cough, shortness of breath, sputum Gastrointestinal/Abdominal: Reports: difficulty swallowing Genitourinary: Reports: no symptoms Neurologic/Psychiatric: Reports: pre-existing deficit Endocrine: Reports: no symptoms Hematologic/Lymphatic: Reports: anemia Allergies: Coded Allergies: No Known Allergies (Unverified , 11/02/19) All Systems: reviewed and negative except above Subjective no events. stable. fevers better. on colistin now. cultures noted. awake but nonverbal. no distress. tolerating feeds. no bleeding. Objective Last 24 Hour Vital Signs Date Time Temp Pulse Resp B/P (MAP) Pulse Ox O2 Delivery O2 Flow Rate FiO2 08/23/20 09:00 Trach Collar 10.0 08/23/20 08:13 80 102/94 08/23/20 08:00 83 08/23/20 08:00 98.6 80 17 102/94 (97) 96 08/23/20 07:29 98 T-Piece 10.0 35 08/23/20 07:29 81 16 99 T-Piece 10.0 35 08/23/20 04:00 83 08/23/20 03:59 98.6 84 24 98/60 (73) 96 08/23/20 01:13 98 T-Piece 10.0 35 08/23/20 00:00 98.2 74 24 92/51 (65) 98 08/23/20 00:00 75 08/22/20 21:42 95 104/59 08/22/20 21:00 Trach Collar 10.0 08/22/20 20:00 85 08/22/20 20:00 98.5 89 24 100/59 (73) 100 08/22/20 19:05 91 18 98 T-Piece 10.0 35 08/22/20 19:05 98 T-Piece 10.0 35 08/22/20 16:00 98.2 79 20 117/69 (85) 100 08/22/20 16:00 79 08/22/20 13:00 98 T-Piece 10.0 35 08/22/20 13:00 86 18 98 T-Piece 10.0 35 08/22/20 12:00 81 08/22/20 12:00 98.1 96 22 120/70 (87) 96 Intake and Output 08/22/20 08/23/20 19:00 07:00 Output Total 500 ml 500 ml Balance -500 ml -500 ml Output Urine Total 500 ml 500 ml # Voids 1 # Bowel Movements 1 1 Height (Feet): 5 Height (Inches): 4.00 Weight (Pounds): 171 Objective General Appearance: WD/WN, confused EENT: normal ENT inspection Neck: normal alignment Cardiovascular: normal rate, regular rhythm Respiratory/Chest: rhonchi - bilaterally Abdomen: normal bowel sounds, non tender, soft, no organomegaly Edema: no edema noted Leg (L), no edema noted Leg (R) Neurologic: disoriented, aphasia Skin: normal pigmentation Assessment/Plan Problem List: (1) Anemia ICD Codes: D64.9 - Anemia, unspecified SNOMED: 196246778, 896772757 Qualifiers: Qualified Codes: D50.0 - Iron deficiency anemia secondary to blood loss (chronic) (2) Pleural effusion, left ICD Codes: J90 - Pleural effusion, not elsewhere classified SNOMED: 80939160, 035032913 (3) Malfunction of gastrostomy tube ICD Codes: K94.23 - Gastrostomy malfunction SNOMED: 076698385 (4) Acute respiratory failure with hypoxia ICD Codes: J96.01 - Acute respiratory failure with hypoxia SNOMED: 66778835, 441951831 (5) HCAP (healthcare-associated pneumonia) ICD Codes: J18.9 - Pneumonia, unspecified organism SNOMED: 784936017, 856228165 Status: stable, progressing Assessment/Plan: iv abx per id follow up cultures trach care resp rx/suctioning as needed tube feeds monitor residuals sz rx bp rx ?resume eliquis- has had problems with bleeding from wounds in the past monitor labs replace k- low Angel Jaramillo MD Aug 23, 2020 11:16
[2020-08-23 12:00] VITALS: BP 104/64
--- NOTE | 2020-08-23 12:11 | NUR ---
CASE MANAGEMENT: REVIEW 08/23/20 SI: PNA. UTI. BACTEREMIA.PLEURAL EFFUSION VS: 98.6 HR 80 RR 17 B/P 102/94 SATS 96% ON 10L/TPIECE LABS: NO LABS TODAY IS: IVF@75 mL/HR IV ZOSYN Q8HRS AMIODARONE GT QD ZINC GT QD LOPRESSOR GT Q12 LIPITOR GT QHS VIT C GT BID KEPPRA GT Q12 PEPCID GT QD : TELEMETRY STATUS DCP: FROM HOME
--- NOTE | 2020-08-23 12:19 | NUR ---
NURSE NOTES: Pt wound wound care done, dressing changed per order. Pt oral care done at this time. pt repositioned. Bed bath and complete linen changed done at this time. Dr Rai notified, awaiting page back. Pt otherwise stable.
--- NOTE | 2020-08-23 12:31 | Pulmonology Progress Note ---
Subjective ROS Limited/Unobtainable: Yes Allergies: Coded Allergies: No Known Allergies (Unverified , 11/02/19) All Systems: reviewed and negative except above Objective Last 24 Hour Vital Signs Date Time Temp Pulse Resp B/P (MAP) Pulse Ox O2 Delivery O2 Flow Rate FiO2 08/23/20 12:00 96.8 94 18 104/64 (77) 96 08/23/20 09:00 Trach Collar 10.0 08/23/20 08:13 80 102/94 08/23/20 08:00 83 08/23/20 08:00 98.6 80 17 102/94 (97) 96 08/23/20 07:29 98 T-Piece 10.0 35 08/23/20 07:29 81 16 99 T-Piece 10.0 35 08/23/20 04:00 83 08/23/20 03:59 98.6 84 24 98/60 (73) 96 08/23/20 01:13 98 T-Piece 10.0 35 08/23/20 00:00 98.2 74 24 92/51 (65) 98 08/23/20 00:00 75 08/22/20 21:42 95 104/59 08/22/20 21:00 Trach Collar 10.0 08/22/20 20:00 85 08/22/20 20:00 98.5 89 24 100/59 (73) 100 08/22/20 19:05 91 18 98 T-Piece 10.0 35 08/22/20 19:05 98 T-Piece 10.0 35 08/22/20 16:00 98.2 79 20 117/69 (85) 100 08/22/20 16:00 79 08/22/20 13:00 98 T-Piece 10.0 35 08/22/20 13:00 86 18 98 T-Piece 10.0 35 Intake and Output 08/22/20 08/23/20 19:00 07:00 Output Total 500 ml 500 ml Balance -500 ml -500 ml Output Urine Total 500 ml 500 ml # Voids 1 # Bowel Movements 1 1 Microbiology Date/Time Source Procedure Growth Status 08/21/20 15:30 Nasopharynx Coronavirus COVID-19 PCR ([facility]) - Final Complete Current Medications Medications (Trade) Dose Ordered Sig/Clive Route PRN Reason Start Time Stop Time Status Last Admin Dose Admin Acetaminophen (Tylenol) 650 mg Q4H PRN GT Temp >100.5 08/18/20 21:15 09/17/20 21:14 08/18/20 21:36 Amiodarone HCl (Cordarone) 400 mg DAILY@1800 GT 08/10/20 18:00 10/28/20 17:59 08/22/20 17:13 Ascorbic Acid (Vitamin C) 500 mg DAILY ORAL 08/17/20 16:00 09/16/20 15:59 08/23/20 08:12 Atorvastatin Calcium (Lipitor) 10 mg BEDTIME ORAL 08/05/20 21:00 10/22/20 20:59 08/22/20 21:41 Chlorhexidine Gluconate (Jennifer-Hex 2%) 1 applic DAILY@2000 TOPIC 07/17/20 20:00 10/15/20 19:59 08/22/20 21:49 Colistimethate Sodium (Colistin) 150 mg EVERY 12 HOURS IVP 08/22/20 12:30 08/26/20 21:01 08/23/20 08:13 Dextrose 1,000 ml @ 75 mls/hr [id number] IV 08/19/20 15:15 09/18/20 15:14 08/23/20 11:17 Famotidine (Pepcid) 20 mg Q12HR GT 07/16/20 21:00 10/14/20 20:59 08/23/20 08:13 Finasteride (Proscar) 5 mg DAILY ORAL 07/15/20 09:00 10/13/20 08:59 08/23/20 08:12 Hydralazine HCl (Apresoline) 25 mg Q6H PRN GT SBP above 150 07/24/20 23:30 10/22/20 23:29 07/26/20 05:22 Levetiracetam (Keppra) 1,000 mg Q12HR ORAL 08/22/20 09:07 10/06/20 09:06 08/23/20 08:12 Meropenem 1 gm/ Sodium Chloride 55 ml @ 110 mls/hr Q8HR IVPB 08/21/20 14:00 08/26/20 13:59 08/23/20 05:09 Metoclopramide HCl (Reglan) 5 mg Q6H IVP 08/21/20 22:00 09/20/20 21:59 08/23/20 10:30 Metoprolol Tartrate (Lopressor) 100 mg Q12HR ORAL 08/13/20 09:00 11/11/20 08:59 08/23/20 08:13 Multivitamins (Multivitamins) 1 tab DAILY ORAL 08/17/20 16:00 09/16/20 15:59 08/23/20 08:13 Sodium Hypochlorite (Dakin's Half Strength) 1 applic DAILY TOPIC 08/19/20 16:30 09/18/20 16:29 08/23/20 09:22 Assessment/Plan Assessment/Plan Pulmonary Progress Note Subjective HPI: Patient is a 69 year old man, Tracheostomy status, s/p previous Craniotomy, RCA occlusion, 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 Admitted with Proteus/Pseudomanas Pneumonia,Left pleural effusion. Nonverbal status. 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 Past Surgical History: Craniotomy, Tracheostomy, G tube Pertinent Family History: NC Social History: NC All Other Systems: limited Objective Physical Exam Vital Signs Noted General Appearance: alert, mild distress, Chronically Ill Head: normocephalic, atraumatic Eyes: bilateral eye PERRL, bilateral eye EOMI ENT: hearing grossly normal, normal pharynx Neck: no meningismus, tracheotomy Respiratory: chest non-tender, CTAB Cardiovascular: regular rate, rhythm, HS1, HS2 normal,no murmur Gastrointestinal: normal bowel sounds, non tender, no mass, no organomegaly, no bruit, non-distended Musculoskeletal: other - Contracted,decubitus LE dressings Neurologic: no focal signs noted,no seizures Assessment/Plan Impression: Healthcare-associated pneumonia Acute respiratory failure with hypoxia Tracheostomy status Pleural effusion, left-recurrent s/p tap Decubitus ulcers Urinary tract infection Anemia S/p previous Craniotomy, RCA occlusion, 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
--- NOTE | 2020-08-23 13:38 | Infectious Diseases Prog Note ---
Assessment/Plan Assessment/Plan A: 1. Pseudomonas & Proteus pneumonia. 2. Providencia & Proteus sepsis 3. Hypertension. 4. Atrial fibrillation. 5. anemia 6. S/p tracheostomy 7. s/p GT 8. Left pleural effusion, s/p thoracentesis 9. Bacteremia with Staph epidermidis 10. ? PICC line infection, line was changed 11. Pseudomonas bacteriuria 12. Pressure ulcers PLAN: 1. Continue Colistin & Meropenem 2. Wound care Subjective ROS Limited/Unobtainable: Yes Gastrointestinal/Abdominal: Reports: diarrhea, other - X 1 Allergies: Coded Allergies: No Known Allergies (Unverified , 11/02/19) Objective Last 24 Hour Vital Signs Date Time Temp Pulse Resp B/P (MAP) Pulse Ox O2 Delivery O2 Flow Rate FiO2 08/23/20 12:00 96.8 94 18 104/64 (77) 96 08/23/20 12:00 82 08/23/20 09:00 Trach Collar 10.0 08/23/20 08:13 80 102/94 08/23/20 08:00 83 08/23/20 08:00 98.6 80 17 102/94 (97) 96 08/23/20 07:29 98 T-Piece 10.0 35 08/23/20 07:29 81 16 99 T-Piece 10.0 35 08/23/20 04:00 83 08/23/20 03:59 98.6 84 24 98/60 (73) 96 08/23/20 01:13 98 T-Piece 10.0 35 08/23/20 00:00 98.2 74 24 92/51 (65) 98 08/23/20 00:00 75 08/22/20 21:42 95 104/59 08/22/20 21:00 Trach Collar 10.0 08/22/20 20:00 85 08/22/20 20:00 98.5 89 24 100/59 (73) 100 08/22/20 19:05 91 18 98 T-Piece 10.0 35 08/22/20 19:05 98 T-Piece 10.0 35 08/22/20 16:00 98.2 79 20 117/69 (85) 100 08/22/20 16:00 79 Height (Feet): 5 Height (Inches): 4.00 Weight (Pounds): 171 HEENT: status post trach Respiratory/Chest: rhonchi - bilaterally, other - ion Tbar Cardiovascular: normal rate, other - leftarm PICC line Abdomen: soft, non tender, other - GT feeding Extremities: no edema, other - Finger clubbing Skin: ulcers, other - multiple pressures ulcer more severe in sacral filomena & lehgs Neurologic/Psychiatric: aphasia Microbiology Date/Time Source Procedure Growth Status 08/21/20 15:30 Nasopharynx Coronavirus COVID-19 PCR ([facility]) - Final Complete Current Medications Medications (Trade) Dose Ordered Sig/Clive Route PRN Reason Start Time Stop Time Status Last Admin Dose Admin Acetaminophen (Tylenol) 650 mg Q4H PRN GT Temp >100.5 08/18/20 21:15 09/17/20 21:14 08/18/20 21:36 Amiodarone HCl (Cordarone) 400 mg DAILY@1800 GT 08/10/20 18:00 10/28/20 17:59 08/22/20 17:13 Ascorbic Acid (Vitamin C) 500 mg DAILY ORAL 08/17/20 16:00 09/16/20 15:59 08/23/20 08:12 Atorvastatin Calcium (Lipitor) 10 mg BEDTIME ORAL 08/05/20 21:00 10/22/20 20:59 08/22/20 21:41 Chlorhexidine Gluconate (Jennifer-Hex 2%) 1 applic DAILY@2000 TOPIC 07/17/20 20:00 10/15/20 19:59 08/22/20 21:49 Colistimethate Sodium (Colistin) 150 mg EVERY 12 HOURS IVP 08/22/20 12:30 08/26/20 21:01 08/23/20 08:13 Dextrose 1,000 ml @ 75 mls/hr [id number] IV 08/19/20 15:15 09/18/20 15:14 08/23/20 11:17 Famotidine (Pepcid) 20 mg Q12HR GT 07/16/20 21:00 10/14/20 20:59 08/23/20 08:13 Finasteride (Proscar) 5 mg DAILY ORAL 07/15/20 09:00 10/13/20 08:59 08/23/20 08:12 Hydralazine HCl (Apresoline) 25 mg Q6H PRN GT SBP above 150 07/24/20 23:30 10/22/20 23:29 07/26/20 05:22 Levetiracetam (Keppra) 1,000 mg Q12HR ORAL 08/22/20 09:07 10/06/20 09:06 08/23/20 08:12 Meropenem 1 gm/ Sodium Chloride 55 ml @ 110 mls/hr Q8HR IVPB 08/21/20 14:00 08/26/20 13:59 08/23/20 13:29 Metoclopramide HCl (Reglan) 5 mg Q6H IVP 08/21/20 22:00 09/20/20 21:59 08/23/20 10:30 Metoprolol Tartrate (Lopressor) 100 mg Q12HR ORAL 08/13/20 09:00 11/11/20 08:59 08/23/20 08:13 Multivitamins (Multivitamins) 1 tab DAILY ORAL 08/17/20 16:00 09/16/20 15:59 08/23/20 08:13 Sodium Hypochlorite (Dakin's Half Strength) 1 applic DAILY TOPIC 08/19/20 16:30 09/18/20 16:29 08/23/20 09:22 Steve Nelson MD Aug 23, 2020 13:38
--- NOTE | 2020-08-23 14:50 | Surgery Progress Note ---
Surgery Progress Note Subjective Additional Comments dressings going well labs noted exam stable no n/v Objective Last 24 Hour Vital Signs Date Time Temp Pulse Resp B/P (MAP) Pulse Ox O2 Delivery O2 Flow Rate FiO2 08/23/20 13:53 95 T-Piece 10.0 35 08/23/20 12:00 96.8 94 18 104/64 (77) 96 08/23/20 12:00 82 08/23/20 09:00 Trach Collar 10.0 08/23/20 08:13 80 102/94 08/23/20 08:00 83 08/23/20 08:00 98.6 80 17 102/94 (97) 96 08/23/20 07:29 98 T-Piece 10.0 35 08/23/20 07:29 81 16 99 T-Piece 10.0 35 08/23/20 04:00 83 08/23/20 03:59 98.6 84 24 98/60 (73) 96 08/23/20 01:13 98 T-Piece 10.0 35 08/23/20 00:00 98.2 74 24 92/51 (65) 98 08/23/20 00:00 75 08/22/20 21:42 95 104/59 08/22/20 21:00 Trach Collar 10.0 08/22/20 20:00 85 08/22/20 20:00 98.5 89 24 100/59 (73) 100 08/22/20 19:05 91 18 98 T-Piece 10.0 35 08/22/20 19:05 98 T-Piece 10.0 35 08/22/20 16:00 98.2 79 20 117/69 (85) 100 08/22/20 16:00 79 I&O Intake and Output 08/22/20 08/23/20 19:00 07:00 Output Total 500 ml 500 ml Balance -500 ml -500 ml Output Urine Total 500 ml 500 ml # Voids 1 # Bowel Movements 1 1 Dressing: saturated Cardiovascular: RSR Respiratory: decreased breath sounds Abdomen: soft, flat, non-tender, present bowel sounds, non-distended Extremities: other Plan Problems: (1) Decubitus skin ulcer Assessment & Plan: Pt was discharged 08/15/20 and readmitted same day. Pt prese nted with LOGISTICS LEAD Shunt,Tracheostomy , GT and Multiple Pressure Injuries and contractures. Small amt exudate that is of Sanguineous mixed with Formula noted from GT. Mild excoriation noted to Peristomal GT site. Full Thickness Sacral Pressure Injury (L)10.5cm x (W)8.3cm x (D)1.5cm, Undermining clockwise 9-2 by 1.3cm @10'oclock. Base of wound is 90% granular 10% necrotic. NO odor noted. Small amt serosanguineous exudate noted.Periwound is erythematous and indurated. No changes in skin temp noted. Full Thickness Pressure Injury Outer L Lower Quadrant of Buttocks.(L)5.5cm x (W)7cm x (D)1.5cm, Undermining clockwise 9-3 by 4.5cm @12o'clock, Tunneled area within base of wound by 5.5cm @ 1-2o'clock. Base of wound is 85% % moist and pink ,15% necrotic at base at undermined area of wound. Bone exposure noted. Small amt serosanguineous exudate noted. Periwound is erythematous and indurated. No odor noted. Full thickness Pressure Injury L Ischium(L)2cm x (W)0.9cm x (D)0.3cm. Base of wound is moist, and pink. Edges are adherent to base of wound. Periwound is maroon and indurated. NO changes in skin temp periwound. NO odor noted. Non-Blanchable erythema without induration noted to R Hip /R trochanteric.. Full Thickness Pressure Injury lateral L Tibia(L)21.5cm x (W)3.5cm x (D)0.2cm. Base of wound is 95% granular,5% necrosis along borders. Edges are adherent to base of wound . Moderate amt sanguineous exudate noted. No odor noted.Periwound skin colour is darker than is normal tone but without erythema or induration. Full thickness Pressure Injury L Heel extending into Plantar aspect of heel(L)8.7cm x (W)6.5cm x(D)0.6cm.Base of wound is 60% beefy granulation,40% necrotic. Bone is palpable. (+) Epibole at proximal borders of wound in close proximity with achilles. Small amt haemopurulent exudate noted. Wound is malodorous. Periwound is dusky and indurated. Full Thickness Pressure Injury Lateral L Foot (L)1.9cm x (W)3.4cm x (D)0.3cm, undermining clockwise 9-3 by 0.2cm @9o'clock. Base of wound is 10% necrotic 90% antonio. Wound is malodorous. Edges are macerate with scattered areas of necrosis along edges. Small amt haemopurulent exudate noted.Periwound is fluctuant and dusky. Full Thickness Pressure Injury distal/lateral L foot(L)1.3cm x (W)3.7cm x (D)0.2cm. Base of wound is 80% soft necrosis,20% moist and pink. edges are macerated. Wound is malodorous. Small amt brown exudate noted . Periwound is dusky and fluctuant. Unstageable Pressure injury dorsal L foot (L)1cm x (W)0.9cm. Base of wound is 100% necrotic. Edges are erythematous and macerated. Periwound without erythema,induration or fluctuance. Full thickness Pressure Injury R Heel including plantar aspect of heel (L)8.7cm x (W)6.5cm x (D)0.6cm. Base of wound is 60% beefy granulation,40% necrotic. Bone exposure at base of wound. Moderate amt haemopurulent exudate. Wound is malodorous. Proximal edges of wound within close proximity with achilles is rolled. Edges are otherwise macerated. Periwound is fluctuant and dusky. Full Thickness Pressure Injury distal/lateral R foot (L)0.5cm x (W)0.6cm. Base of wound is 100% fibrinous slough. Erythematous borders. Periwound without induration or fluctuance. Small amt serous exudate noted. Tx.Plan: Wash GT site with Soap and Water. Pat dry. Apply Moisture Barrier Paste around Gt Daily. Leave open to Air. Cleanse Sacral wound, L buttocks, and L Ischia wounds with Dakin's 0.25% Kristel. Loosely pack wounds with Dakin's moistened Kerlix.Apply Triad Paste periwound. Cover with Optifoam drsgs Daily and prn. Cleanse wound Lateral L Tibia with Dakin's o.25% Kristel. Rinse with Saline. Apply Promogran moistened with Saline. Apply Moisture Barrier Paste along borders. Cover with ABD Pads. Wrap with Kerlix every Mon-Wed-Fri (NOTE: Wound Nurse to Aplpy Promogran) Cleanse wounds L Foot with Dakin's 0.25% Kristel. Apply Dakin's moistened Gauze to each wound. Apply Triad Paste along Borders of each wound. Cover with ABD Pads and wrap with Kerlix Daily and prn. Cleanse R Heel wound with Dakin's 0.25% Kristel. Apply Dakin's Moistened Gauze to wound. Apply Triad Paste Periwound. Cover with ABD Pad. Wrap with Kerlix Daily and prn. Reposition at least every 2hours or as tolerated. Place Pillow Between Knees. Off-load heels with 2 Pillows. APM/TERRIE Mattress overlay. Sacral wound,L Buttocks, L Ischial wounds cleansed with Dakin's and each wound loosely packed with Dakin's moistened Kerlix.Moisture Barrier Paste applied to borders of each wound and each wound covered with Optifoam drsgs. Perianal area noted to be red and excoriated. Moisture Barrier Paste applied to affected area. Drsgs to L tibia, L Heel and R Heel noted to be saturated and malodorous. Both lower ext washed with Chlorhexidine soap prior to providing wound care.Base of wound lateral L Tibia beefy red. Edges are adherent with an area of 5% necrosis distally. Small amt sanguineous exudate No erythema or changes in skin temp periwound. Wound Later L Tibia cleansed with Saline. Promogran applied to base of wound.Moisture Barrier Paste applied along borders. Covered with ABD pad. Wrapped with Kerlix. R and L Heel wounds cleansed Dakin's 0.25% kristel. Dakin's moistened gauze applied to each wound Moisture Barrier Paste applied to borders of each wound and each wound covered with Abd Pads and each heel wrapped with Kerlix drsgs. Skin under tracheal collar assessed and no evidence of skin breakdown noted. Peristomal Gt site is resolving, Skin is moist but pink.No new skin concerns noted. (2) Anemia Assessment & Plan: trend h/h prbc prn (3) UTI (urinary tract infection) (4) Pleural effusion, left Assessment & Plan: Ultrasound used to localize optimal puncture site. Sterile prepping and draping left chest. Local anesthesia with 1% lidocaine. Under real-time ultrasound guidance, puncture pleural space using thoracentesis needle. Stylet removed. Catheter placed to vacuum bottle suction. Total 1700 milliliters of fluid aspirated. Patient tolerated procedure well, without immediate complication. Findings: Followup sonography demonstrates small amount of residual pleural fluid. Impression: Successful ultrasound-guided thoracentesis, yielding 1700 milliliters of fluid Lungs: Hazy left lung attenuation could be due to consolidation, pulmonary edema; correlate with presentation. Retrocardiac atelectasis without or with consolidation. Pleural space: Small-moderate left pleural effusion with passive atelectasis. No pneumothorax. Heart: Unremarkable. No cardiomegaly. Mediastinum: Unremarkable. Bones/joints: No acute abnormality Tubes, lines and devices: Tracheostomy. Right upper extremity PICC tip in the mid SVC. IMPRESSION: 1. Tracheostomy. 2. Right upper extremity PICC tip in the mid SVC. 3. Small-moderate left pleural effusion with passive atelectasis. 4. Hazy left lung attenuation could be due to consolidation, pulmonary edema; correlate with presentation. 5. Retrocardiac atelectasis without or with consolidation. 6. Recommend CT chest with IV contrast to further characterize these findings. plan repeat thora (5) Malfunction of gastrostomy tube Assessment & Plan: DAILY ESTIMATED NEEDS: Needs based on Wounds, pulmonary/ 74.5kg 25-30 kcals/kg 4739-7914 total kcals 1.5-2 g protein/kg 111-149 g total protein 25-30 mL/kg 8036-8728 total fluid mLs NUTRITION DIAGNOSIS: * Swallowing difficulty R/T dysphagia, h/o craniotomy, respiratory failure as evidenced by pt on T-collar, GJ tube dependent. * Increased kcal/prot/micronutrients needs R/T wound healing as evidenced by pt admitted w/ multiple advanced wounds including full thickness wound x 7 and unstageable wounds x 2, refer to eval. CURRENT TF:Jevity 1.2 @ 60ml/hr x 24 hrs-> now Glucerna 1.2 ENTERAL NUTRITION RECOMMENDATIONS: Glucerna 1.2 @ 65ml/hr x 24 hrs + Prosource 1pkt TID to provide 1560ml, 1872kcal, 94g+ 33g prot, 1259ml free water * Increase goal rate to 65ml/hr x 24 hrs to better meet est needs * Add Prosource 1pkt TID to meet increased protein needs * HOB over 30 degrees/ water flush 150ml q 6hrs without IVF ADDITIONAL RECOMMENDATIONS: * Calibrated bedscale wt * Wound Care: Con't Vit C 500mg BID, ZnSO4 220mg QD x 10 days add Stevie BID * Monitor BGs, need for carb controlled TF -> now on Glucerna 1.2 * Monitor lytes, replete as needed (6) Acute respiratory failure with hypoxia (7) HCAP (healthcare-associated pneumonia) Deny Westfall Aug 23, 2020 14:50
--- NOTE | 2020-08-23 15:01 | NUR ---
NURSE NOTES: Katerine made aware of diarrhea, no new orders at this time. diarrhea x1. Katerine: "ok"
[2020-08-23 16:00] VITALS: BP 106/74
[2020-08-23] MEDS: Amiodarone 200mg tab GT SCH (16:59)
--- NOTE | 2020-08-23 17:45 | NUR ---
NURSE HAND-OFF REPORT: Important Events on Shift: diarrhea x2, vosoghi and khorammi aware, no new orders// wound care done, L leg wound care MWF only do not remove per Eyesha// tolerating gtube feeding 70cc at this time// Patient Status: fc, stable Diet: vital af 1.2 cont at 70cc, no residual Pending Orders: Pending Results/Labs: Pending MD notification: Latest Vital Signs: Temperature 98.1 , Pulse 89 , B/P 106 /74 , Respiratory Rate 19 , O2 SAT 97 , Trach Collar, O2 Flow Rate 10.0 . Vital Sign Comment: EKG Rhythm: Sinus Rhythm Rhythm change?: N MD Notified?: N -Dr. Aubree VALDEZ Response: Message left await call Latest Ramirez Fall Score: 70 Fall Risk: High Risk Safety Measures: Call light Within Reach, Bed Alarm Zone 1, Side Rails Side Rails x3, Bed position Low and Locked. Fall Precautions: Yellow Socks Patient Fall Education Report to be given. Addendum: 08/23/20 at 1916 by Opal Connolly RN RN Pt stable and plan of care endorsed to SELIN Lyons.
--- NOTE | 2020-08-23 18:31 | Cardiology Progress Note ---
Subjective DATE OF SERVICE: Aug 23, 2020 Tolerating tube feeds PICC line access remains in place. s/p 1700cc thorocentesis last week, and 1200cc L thorocentesis 08/18. Now has positive blood, urine, and sputum cultures with multiple gram negative pathogen. No new bleeding, since back on anticoagulation now following GI clearance. BP parameters stabilized. Monitor: AFib/flutter persisting still with better ventricular rates now. Objective Last 24 Hour Vital Signs Date Time Temp Pulse Resp B/P (MAP) Pulse Ox O2 Delivery O2 Flow Rate FiO2 08/23/20 16:00 77 08/23/20 16:00 98.1 89 19 106/74 (85) 97 08/23/20 13:53 95 T-Piece 10.0 35 08/23/20 12:00 96.8 94 18 104/64 (77) 96 08/23/20 12:00 82 08/23/20 09:00 Trach Collar 10.0 08/23/20 08:13 80 102/94 08/23/20 08:00 83 08/23/20 08:00 98.6 80 17 102/94 (97) 96 08/23/20 07:29 98 T-Piece 10.0 35 08/23/20 07:29 81 16 99 T-Piece 10.0 35 08/23/20 04:00 83 08/23/20 03:59 98.6 84 24 98/60 (73) 96 08/23/20 01:13 98 T-Piece 10.0 35 08/23/20 00:00 98.2 74 24 92/51 (65) 98 08/23/20 00:00 75 08/22/20 21:42 95 104/59 08/22/20 21:00 Trach Collar 10.0 08/22/20 20:00 85 08/22/20 20:00 98.5 89 24 100/59 (73) 100 08/22/20 19:05 91 18 98 T-Piece 10.0 35 08/22/20 19:05 98 T-Piece 10.0 35 ROS: unchanged from 07/14/20 HEENT: Thick Trach secretions RHYTHM: NSR, ST, PACs, Afib LUNGS: bilateral rhonchi CARDIAC: normal S1 and S2, rapid rate, arrhythmia ABDOMEN: normal bowel sounds, soft, G-Tube intact EXTREMITIES: normal range of motion, non-tender, trace edema, other - withdrawn Microbiology Date/Time Source Procedure Growth Status 08/21/20 15:30 Nasopharynx Coronavirus COVID-19 PCR ([facility]) - Final Complete Assessment/Plan Assessment/Plan Healthcare associated PNA Polymicrobial Gram negative bacteremia and sepsis - UTI Paroxysmal atrial fibrillation/flutter Paroxysmal atrial ectopy Hx ICB with craniotomy and [facility] INSTIT[facility] shunt Ac/chronic encephalopathy Seizure disorder Troponin leak; no signs of acute FL Trach status Dysphagia with GJ-Tube 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 Dyslipidemia on high dose statin - now dose adjusted Dehydration/hypernatremia Severe protein-calorie malnutrition Multiple wounds Anemia - s/p tx Pleural effusion - s/p left thorocentesis Titrate beta blockade dose as tolerated by BP; may have to digitalize. Abx per ID Resp support Cardiac monitoring Statin dose adjusted Amiodarone at maintenance dose to maintain sinus rhythm. Free water replacement as needed; off IVF for now. Diuresis based on daily assessments of volume status. Continue anticoagulation with caution due to bleeding risk Awaiting SNF Dylan Sparks MD Aug 23, 2020 18:31
--- NOTE | 2020-08-23 19:37 | NUR ---
NURSE NOTES: Patient received from Opal Connolly RN. A&Ox0 opens eye spontaneously. No s/s of pain, On t-piece @ 10L with fio2 @35%. Breathing even and unlabored. Gtube patent and intact running Vital AF 1.2 running @ 70cc/hr. [place] catheter patent and intact draining well to gravity. Skin issues noted. PICC line on Left upper arm patent and intact running D5W @ 75cc/hr. Bed in lowest position and locked. Call light and bedside table within reach.
[2020-08-23 20:00] VITALS: BP 97/56
[2020-08-23] MEDS: Dyna-Hex 2% Top Sol 2oz TOPIC SCH (23:17)
[2020-08-23] MEDS: Atorvastatin 20mg tab ORAL SCH (23:17)
[2020-08-24] VITALS (7 sets, daily range): BP systolic 81–101; BP diastolic 42–54
[2020-08-24] MEDS: Metoclopramide 10mg/2ml Inj IVP SCH ×4 (04:04→22:25)
[2020-08-24] MEDS: Meropenem 1 GM in NS 55 ML IVPB SCH ×2 (05:16→13:03)
--- NOTE | 2020-08-24 06:12 | NUR ---
NURSE HAND-OFF REPORT: Important Events on Shift:[Wound care done for sacrum, Left trochanter, Right foot] Patient Status: [A&O x 0,] Diet: [Vital AF 1.2 @ 70cc/hr] Pending Orders: [] Pending Results/Labs:[] Pending MD notification:[] Latest Vital Signs: Temperature 97.9 , Pulse 91 , B/P 81 /43 , Respiratory Rate 16 , O2 SAT 95 , Trach Collar, O2 Flow Rate 10.0 . Vital Sign Comment: [] EKG Rhythm: Sinus Rhythm Rhythm change?: N MD Notified?: N -Dr. Aubree VALDEZ Response: Message left await call Latest Ramirez Fall Score: 70 Fall Risk: High Risk Safety Measures: Call light Within Reach, Bed Alarm Zone 1, Side Rails Side Rails x3, Bed position Low and Locked. Fall Precautions: Yellow Socks Patient Fall Education Report given to []. Addendum: 08/24/20 at 0728 by Eloy Gerard RN Patient report given to Hali Dougherty RN
--- NOTE | 2020-08-24 06:59 | General Progress Note ---
Subjective ROS Limited/Unobtainable: No Allergies: Coded Allergies: No Known Allergies (Unverified , 11/02/19) Objective Last 24 Hour Vital Signs Date Time Temp Pulse Resp B/P (MAP) Pulse Ox O2 Delivery O2 Flow Rate FiO2 08/24/20 05:00 100/48 (65) 08/24/20 04:00 91 08/24/20 04:00 97.9 90 16 81/43 (56) 95 08/24/20 01:24 97 T-Piece 10.0 35 08/24/20 00:00 98.3 97 16 91/42 (58) 96 08/24/20 00:00 93 08/23/20 21:00 98 97/56 08/23/20 21:00 Trach Collar 10.0 08/23/20 20:00 97.9 98 19 97/56 (70) 96 08/23/20 20:00 100 08/23/20 18:48 88 16 97 T-Piece 10.0 35 08/23/20 18:45 97 T-Piece 10.0 35 08/23/20 16:00 77 08/23/20 16:00 98.1 89 19 106/74 (85) 97 08/23/20 13:53 95 T-Piece 10.0 35 08/23/20 12:00 96.8 94 18 104/64 (77) 96 08/23/20 12:00 82 08/23/20 09:00 Trach Collar 10.0 08/23/20 08:13 80 102/94 08/23/20 08:00 83 08/23/20 08:00 98.6 80 17 102/94 (97) 96 08/23/20 07:29 98 T-Piece 10.0 35 08/23/20 07:29 81 16 99 T-Piece 10.0 35 Intake and Output 08/23/20 08/24/20 19:00 07:00 Intake Total 1070 ml 960 ml Output Total 300 ml Balance 1070 ml 660 ml Intake Free Water 320 ml 300 ml Tube Feeding 750 ml 660 ml Output Urine Total 300 ml # Bowel Movements 3 1 Height (Feet): 5 Height (Inches): 4.00 Weight (Pounds): 171 EENT: normal ENT inspection Neck: supple Cardiovascular: normal rate Respiratory/Chest: decreased breath sounds Abdomen: normal bowel sounds, non tender, soft Extremities: non-tender Assessment/Plan Status: stable, progressing Assessment/Plan: Assessment/Plan Status: stable, progressing Assessment/Plan: Assessment - Abnormal LFT, ? etiology - resolving - ? meds (? Amio , ? Statin) - ? liver / gallbladder - ? rhabdo - ? infiltrative d/o (HSM) - UGIB - resolved - Anemia, s/p transfusion - h/o PUD - resp failure, s/p trach - dysphagia, s/p PEG - atrial fibrillation - h/o DVT - hypernatremia - loose BM - decubitus ulcers Recommendations - follow LFT - will check Mon - anticoagulation - H2B BID indefinitely - vital AF - protein supplements - TID - MVI - Vitamin C - free water - follow H&H - monitor BM Kevin Garcias MD Aug 24, 2020 06:59
--- NOTE | 2020-08-24 07:15 | NUR ---
NURSE NOTES: Received patient in bed awake. O2 via trach at 10LPM in place, no acute distress. PICC line intact, no bleeding noted. Wound dressings intact. FC intact, draining yellow colored urine. Suctioning done. HOB elevated. Bed locked in low position. Call light within reach. Will continue plan of care.
[2020-08-24] MEDS: Colistin 150mg vial IVP SCH ×2 (08:20→20:51)
[2020-08-24] MEDS: Metoprolol Tartrate 100mg tab ORAL SCH ×2 (08:21→21:00)
[2020-08-24] MEDS: Amiodarone 200mg tab GT SCH (08:21)
[2020-08-24] MEDS: Ascorbic Acid 500mg tab ORAL SCH (08:22)
[2020-08-24] MEDS: Dakin's 0.25% (Half Strength) 16oz TOPIC SCH (08:22)
[2020-08-24 09:00] LABS: ALBUMIN 0.8 G/DL (3.4-5.0); ALBUMIN/GLOBULIN RATIO 0.2 (1.0-2.7); BILIRUBIN,TOTAL 0.6 MG/DL (0.2-1.0); CALCIUM 8.2 MG/DL (8.5-10.1); CREATININE 1.4 MG/DL (0.55-1.30)
[2020-08-24 09:03] LABS: HEMATOCRIT 23.4 % (42.0-52.0); HEMOGLOBIN 7.2 G/DL (14.2-18.0); MEAN CORPUSCULAR VOLUME 89 FL (80-99); PLATELET COUNT 317 K/UL (150-450); RED BLOOD COUNT 2.62 M/UL (4.70-6.10); RED CELL DISTRIBUTION WIDTH 15.5 % (11.6-14.8); WHITE BLOOD COUNT 9.2 K/UL (4.8-10.8)
--- NOTE | 2020-08-24 10:16 | General Progress Note ---
Subjective ROS Limited/Unobtainable: Yes Constitutional: Reports: malaise, weakness HEENT: Reports: no symptoms Cardiovascular: Reports: no symptoms Respiratory: Reports: shortness of breath, sputum Gastrointestinal/Abdominal: Reports: difficulty swallowing Genitourinary: Reports: no symptoms Neurologic/Psychiatric: Reports: pre-existing deficit Endocrine: Reports: no symptoms Hematologic/Lymphatic: Reports: anemia Allergies: Coded Allergies: No Known Allergies (Unverified , 11/02/19) All Systems: reviewed and negative except above Subjective no events. stable. fevers better. on colistin and raymond. no fevers. decreased h/h noted. no reports of bleeding. awake but nonverbal. does not track or follow commands Objective Last 24 Hour Vital Signs Date Time Temp Pulse Resp B/P (MAP) Pulse Ox O2 Delivery O2 Flow Rate FiO2 08/24/20 08:21 100 101/54 08/24/20 08:00 99.5 100 17 101/54 (70) 92 08/24/20 07:05 98 T-Piece 10.0 35 08/24/20 07:04 84 16 98 T-Piece 10.0 35 08/24/20 05:00 100/48 (65) 08/24/20 04:00 91 08/24/20 04:00 97.9 90 16 81/43 (56) 95 08/24/20 01:24 97 T-Piece 10.0 35 08/24/20 00:00 98.3 97 16 91/42 (58) 96 08/24/20 00:00 93 08/23/20 21:00 98 97/56 08/23/20 21:00 Trach Collar 10.0 08/23/20 20:00 97.9 98 19 97/56 (70) 96 08/23/20 20:00 100 08/23/20 18:48 88 16 97 T-Piece 10.0 35 08/23/20 18:45 97 T-Piece 10.0 35 08/23/20 16:00 77 08/23/20 16:00 98.1 89 19 106/74 (85) 97 08/23/20 13:53 95 T-Piece 10.0 35 08/23/20 12:00 96.8 94 18 104/64 (77) 96 08/23/20 12:00 82 Intake and Output 08/23/20 08/24/20 19:00 07:00 Intake Total 1070 ml 960 ml Output Total 300 ml Balance 1070 ml 660 ml Intake Free Water 320 ml 300 ml Tube Feeding 750 ml 660 ml Output Urine Total 300 ml # Bowel Movements 3 1 Laboratory Tests 08/24/20 08:00: White Blood Count 9.2, Red Blood Count 2.62L, Hemoglobin 7.2L, Hematocrit 23.4L, Mean Corpuscular Volume 89, Mean Corpuscular Hemoglobin 27.5, Mean Corpuscular Hemoglobin Concent 30.8L, Red Cell Distribution Width 15.5H, Platelet Count 317, Mean Platelet Volume 5.9L, Neutrophils (%) (Auto) , Lymphocytes (%) (Auto) , Monocytes (%) (Auto) , Eosinophils (%) (Auto) , Basophils (%) (Auto) , Differential Total Cells Counted 100, Neutrophils % (Manual) 69, Lymphocytes % (Manual) 23, Monocytes % (Manual) 5, Eosinophils % (Manual) 3, Basophils % (Manual) 0, Band Neutrophils 0, Platelet Estimate Adequate, Platelet Morphology Normal, Hypochromasia 1+, Anisocytosis 1+, Sodium Level 136, Potassium Level 5.0, Chloride Level 104, Carbon Dioxide Level 25, Anion Gap 7, Blood Urea Nitrogen 57H, Creatinine 1.4H, Estimat Glomerular Filtration Rate 50.4, Glucose Level 89, Calcium Level 8.2L, Magnesium Level 1.7L, Total Bilirubin 0.6, A spartate Amino Transf (AST/SGOT) 35, Alanine Aminotransferase (ALT/SGPT) 61, Alkaline Phosphatase 136H, Pro-B-Type Natriuretic Peptide 19313X, Total Protein 6.1L, Albumin 0.8L, Globulin 5.3, Albumin/Globulin Ratio 0.2L Height (Feet): 5 Height (Inches): 4.00 Weight (Pounds): 171 Objective General Appearance: WD/WN, confused EENT: normal ENT inspection Neck: normal alignment Cardiovascular: normal rate, regular rhythm Respiratory/Chest: rhonchi - bilaterally Abdomen: normal bowel sounds, non tender, soft, no organomegaly Edema: no edema noted Leg (L), no edema noted Leg (R) Neurologic: disoriented, aphasia Skin: normal pigmentation Assessment/Plan Problem List: (1) Anemia ICD Codes: D64.9 - Anemia, unspecified SNOMED: 234341508, 145685218 Qualifiers: Qualified Codes: D50.0 - Iron deficiency anemia secondary to blood loss (chronic) (2) Pleural effusion, left ICD Codes: J90 - Pleural effusion, not elsewhere classified SNOMED: 94175399, 562567339 (3) Malfunction of gastrostomy tube ICD Codes: K94.23 - Gastrostomy malfunction SNOMED: 873586232 (4) Acute respiratory failure with hypoxia ICD Codes: J96.01 - Acute respiratory failure with hypoxia SNOMED: 21814456, 108142126 (5) HCAP (healthcare-associated pneumonia) ICD Codes: J18.9 - Pneumonia, unspecified organism SNOMED: 932930788, 885563674 Status: stable, progressing Assessment/Plan: iv abx per id follow up cultures trach care resp rx/suctioning as needed tube feeds monitor residuals sz rx bp rx monitor h/h transfuse as needed wound care monitor labs Angel Jaramillo MD Aug 24, 2020 10:16
--- NOTE | 2020-08-24 10:30 | NUR ---
NURSE NOTES: The patient was started on PRBC transfusion of blood and seen to be tolerating at this time.The is no evidence of a transfusion reaction noted.Will continue to monitor as indicated Addendum: 08/24/20 at 2305 by Jostincarly Elias RN NURSE NOTES: Transfusions was started on 2229
--- NOTE | 2020-08-24 13:03 | Surgery Progress Note ---
Surgery Progress Note Subjective Additional Comments Patient seen and examined bedside. No acute events. Ill-appearing. No nausea vomiting. No fevers. Labs noted Objective Last 24 Hour Vital Signs Date Time Temp Pulse Resp B/P (MAP) Pulse Ox O2 Delivery O2 Flow Rate FiO2 08/24/20 11:55 97.9 87 26 84/42 (56) 92 08/24/20 09:00 Trach Collar 10.0 08/24/20 08:21 100 101/54 08/24/20 08:00 99.5 100 17 101/54 (70) 92 08/24/20 08:00 100 08/24/20 07:05 98 T-Piece 10.0 35 08/24/20 07:04 84 16 98 T-Piece 10.0 35 08/24/20 05:00 100/48 (65) 08/24/20 04:00 91 08/24/20 04:00 97.9 90 16 81/43 (56) 95 08/24/20 01:24 97 T-Piece 10.0 35 08/24/20 00:00 98.3 97 16 91/42 (58) 96 08/24/20 00:00 93 08/23/20 21:00 98 97/56 08/23/20 21:00 Trach Collar 10.0 08/23/20 20:00 97.9 98 19 97/56 (70) 96 08/23/20 20:00 100 08/23/20 18:48 88 16 97 T-Piece 10.0 35 08/23/20 18:45 97 T-Piece 10.0 35 08/23/20 16:00 77 08/23/20 16:00 98.1 89 19 106/74 (85) 97 08/23/20 13:53 95 T-Piece 10.0 35 I&O Intake and Output 08/23/20 08/24/20 19:00 07:00 Intake Total 1070 ml 960 ml Output Total 300 ml Balance 1070 ml 660 ml Intake Free Water 320 ml 300 ml Tube Feeding 750 ml 660 ml Output Urine Total 300 ml # Bowel Movements 3 1 Dressing: saturated Cardiovascular: RSR Respiratory: decreased breath sounds Abdomen: soft, non-tender, present bowel sounds, non-distended Extremities: no tenderness, no cyanosis Laboratory Tests Test 08/24/20 08:00 White Blood Count 9.2 K/UL (4.8-10.8) Red Blood Count 2.62 M/UL (4.70-6.10) L Hemoglobin 7.2 G/DL (14.2-18.0) L Hematocrit 23.4 % (42.0-52.0) L Mean Corpuscular Volume 89 FL (80-99) Mean Corpuscular Hemoglobin 27.5 PG (27.0-31.0) Mean Corpuscular Hemoglobin Concent 30.8 G/DL (32.0-36.0) L Red Cell Distribution Width 15.5 % (11.6-14.8) H Platelet Count 317 K/UL (150-450) Mean Platelet Volume 5.9 FL (6.5-10.1) L Neutrophils (%) (Auto) % (45.0-75.0) Lymphocytes (%) (Auto) % (20.0-45.0) Monocytes (%) (Auto) % (1.0-10.0) Eosinophils (%) (Auto) % (0.0-3.0) Basophils (%) (Auto) % (0.0-2.0) Differential Total Cells Counted 100 Neutrophils % (Manual) 69 % (45-75) Lymphocytes % (Manual) 23 % (20-45) Monocytes % (Manual) 5 % (1-10) Eosinophils % (Manual) 3 % (0-3) Basophils % (Manual) 0 % (0-2) Band Neutrophils 0 % (0-8) Platelet Estimate Adequate Platelet Morphology Normal Hypochromasia 1+ Anisocytosis 1+ Sodium Level 136 MMOL/L (136-145) Potassium Level 5.0 MMOL/L (3.5-5.1) Chloride Level 104 MMOL/L (98-107) Carbon Dioxide Level 25 MMOL/L (21-32) Anion Gap 7 mmol/L (5-15) Blood Urea Nitrogen 57 mg/dL (7-18) H Creatinine 1.4 MG/DL (0.55-1.30) H Estimat Glomerular Filtration Rate 50.4 mL/min (>60) Glucose Level 89 MG/DL (74-106) Calcium Level 8.2 MG/DL (8.5-10.1) L Magnesium Level 1.7 MG/DL (1.8-2.4) L Total Bilirubin 0.6 MG/DL (0.2-1.0) Aspartate Amino Transf (AST/SGOT) 35 U/L (15-37) Alanine Aminotransferase (ALT/SGPT) 61 U/L (12-78) Alkaline Phosphatase 136 U/L (46-116) H Pro-B-Type Natriuretic Peptide 13695 pg/mL (0-125) H Total Protein 6.1 G/DL (6.4-8.2) L Albumin 0.8 G/DL (3.4-5.0) L Globulin 5.3 g/dL Albumin/Globulin Ratio 0.2 (1.0-2.7) L Plan Problems: (1) Decubitus skin ulcer Assessment & Plan: Pt was discharged 08/15/20 and readmitted same day. Pt pres ented with GENERAL OPHTHALMOLOGIST Shunt,Tracheostomy , GT and Multiple Pressure Injuries and contractures. Small amt exudate that is of Sanguineous mixed with Formula noted from GT. Mild excoriation noted to Peristomal GT site. Full Thickness Sacral Pressure Injury (L)10.5cm x (W)8.3cm x (D)1.5cm, Undermining clockwise 9-2 by 1.3cm @10'oclock. Base of wound is 90% granular 10% necrotic. NO odor noted. Small amt serosanguineous exudate noted.Periwound is erythematous and indurated. No changes in skin temp noted. Full Thickness Pressure Injury Outer L Lower Quadrant of Buttocks.(L)5.5cm x (W)7cm x (D)1.5cm, Undermining clockwise 9-3 by 4.5cm @12o'clock, Tunneled area within base of wound by 5.5cm @ 1-2o'clock. Base of wound is 85% % moist and pink ,15% necrotic at base at undermined area of wound. Bone exposure noted. Small amt serosanguineous exudate noted. Periwound is erythematous and indurated. No odor noted. Full thickness Pressure Injury L Ischium(L)2cm x (W)0.9cm x (D)0.3cm. Base of wound is moist, and pink. Edges are adherent to base of wound. Periwound is maroon and indurated. NO changes in skin temp periwound. NO odor noted. Non-Blanchable erythema without induration noted to R Hip /R trochanteric.. Full Thickness Pressure Injury lateral L Tibia(L)21.5cm x (W)3.5cm x (D)0.2cm. Base of wound is 95% granular,5% necrosis along borders. Edges are adherent to base of wound . Moderate amt sanguineous exudate noted. No odor noted.Periwound skin colour is darker than is normal tone but without erythema or induration. Full thickness Pressure Injury L Heel extending into Plantar aspect of heel(L)8.7cm x (W)6.5cm x(D)0.6cm.Base of wound is 60% beefy granulation,40% necrotic. Bone is palpable. (+) Epibole at proximal borders of wound in close proximity with achilles. Small amt haemopurulent exudate noted. Wound is malodorous. Periwound is dusky and indurated. Full Thickness Pressure Injury Lateral L Foot (L)1.9cm x (W)3.4cm x (D)0.3cm, undermining clockwise 9-3 by 0.2cm @9o'clock. Base of wound is 10% necrotic 90% antonio. Wound is malodorous. Edges are macerate with scattered areas of necrosis along edges. Small amt haemopurulent exudate noted.Periwound is fluctuant and dusky. Full Thickness Pressure Injury distal/lateral L foot(L)1.3cm x (W)3.7cm x (D)0.2cm. Base of wound is 80% soft necrosis,20% moist and pink. edges are macerated. Wound is malodorous. Small amt brown exudate noted . Periwound is dusky and fluctuant. Unstageable Pressure injury dorsal L foot (L)1cm x (W)0.9cm. Base of wound is 100% necrotic. Edges are erythematous and macerated. Periwound without erythema,induration or fluctuance. Full thickness Pressure Injury R Heel including plantar aspect of heel (L)8.7cm x (W)6.5cm x (D)0.6cm. Base of wound is 60% beefy granulation,40% necrotic. Bone exposure at base of wound. Moderate amt haemopurulent exudate. Wound is malodorous. Proximal edges of wound within close proximity with achilles is rolled. Edges are otherwise macerated. Periwound is fluctuant and dusky. Full Thickness Pressure Injury distal/lateral R foot (L)0.5cm x (W)0.6cm. Base of wound is 100% fibrinous slough. Erythematous borders. Periwound without induration or fluctuance. Small amt serous exudate noted. Tx.Plan: Wash GT site with Soap and Water. Pat dry. Apply Moisture Barrier Paste around Gt Daily. Leave open to Air. Cleanse Sacral wound, L buttocks, and L Ischia wounds with Dakin's 0.25% Kristel. Loosely pack wounds with Dakin's moistened Kerlix.Apply Triad Paste periwound. Cover with Optifoam drsgs Daily and prn. Cleanse wound Lateral L Tibia with Dakin's o.25% Kristel. Rinse with Saline. Apply Promogran moistened with Saline. Apply Moisture Barrier Paste along borders. Cover with ABD Pads. Wrap with Kerlix every Mon-Wed-Fri (NOTE: Wound Nurse to Aplpy Promogran) Cleanse wounds L Foot with Dakin's 0.25% Kristel. Apply Dakin's moistened Gauze to each wound. Apply Triad Paste along Borders of each wound. Cover with ABD Pads and wrap with Kerlix Daily and prn. Cleanse R Heel wound with Dakin's 0.25% Kristel. Apply Dakin's Moistened Gauze to wound. Apply Triad Paste Periwound. Cover with ABD Pad. Wrap with Kerlix Daily and prn. Reposition at least every 2hours or as tolerated. Place Pillow Between Knees. Off-load heels with 2 Pillows. APM/TERRIE Mattress overlay. Sacral wound,L Buttocks, L Ischial wounds cleansed with Dakin's and each wound loosely packed with Dakin's moistened Kerlix.Moisture Barrier Paste applied to borders of each wound and each wound covered with Optifoam drsgs. Perianal area noted to be red and excoriated. Moisture Barrier Paste applied to affected area. Drsgs to L tibia, L Heel and R Heel noted to be saturated and malodorous. Both lower ext washed with Chlorhexidine soap prior to providing wound care.Base of wound lateral L Tibia beefy red. Edges are adherent with an area of 5% necrosis distally. Small amt sanguineous exudate No erythema or changes in skin temp periwound. Wound Later L Tibia cleansed with Saline. Promogran applied to base of wound.Moisture Barrier Paste applied along borders. Covered with ABD pad. Wrapped with Kerlix. R and L Heel wounds cleansed Dakin's 0.25% kristel. Dakin's moistened gauze applied to each wound Moisture Barrier Paste applied to borders of each wound and each wound covered with Abd Pads and each heel wrapped with Kerlix drsgs. Skin under tracheal collar assessed and no evidence of skin breakdown noted. Peristomal Gt site is resolving, Skin is moist but pink.No new skin concerns noted. (2) Anemia Assessment & Plan: trend h/h prbc prn (3) UTI (urinary tract infection) (4) Pleural effusion, left Assessment & Plan: Ultrasound used to localize optimal puncture site. Sterile prepping and draping left chest. Local anesthesia with 1% lidocaine. Under real-time ultrasound guidance, puncture pleural space using thoracentesis needle. Stylet removed. Catheter placed to vacuum bottle suction. Total 1700 milliliters of fluid aspirated. Patient tolerated procedure well, without immediate complication. Findings: Followup sonography demonstrates small amount of residual pleural fluid. Impression: Successful ultrasound-guided thoracentesis, yielding 1700 milliliters of fluid Lungs: Hazy left lung attenuation could be due to consolidation, pulmonary edema; correlate with presentation. Retrocardiac atelectasis without or with consolidation. Pleural space: Small-moderate left pleural effusion with passive atelectasis. No pneumothorax. Heart: Unremarkable. No cardiomegaly. Mediastinum: Unremarkable. Bones/joints: No acute abnormality Tubes, lines and devices: Tracheostomy. Right upper extremity PICC tip in the mid SVC. IMPRESSION: 1. Tracheostomy. 2. Right upper extremity PICC tip in the mid SVC. 3. Small-moderate left pleural effusion with passive atelectasis. 4. Hazy left lung attenuation could be due to consolidation, pulmonary edema; correlate with presentation. 5. Retrocardiac atelectasis without or with consolidation. 6. Recommend CT chest with IV contrast to further characterize these findings. plan repeat thora (5) Malfunction of gastrostomy tube Assessment & Plan: DAILY ESTIMATED NEEDS: Needs based on Wounds, pulmonary/ 74.5kg 25-30 kcals/kg 3138-6085 total kcals 1.5-2 g protein/kg 111-149 g total protein 25-30 mL/kg 6851-5851 total fluid mLs NUTRITION DIAGNOSIS: * Swallowing difficulty R/T dysphagia, h/o craniotomy, respiratory failure as evidenced by pt on T-collar, GJ tube dependent. * Increased kcal/prot/micronutrients needs R/T wound healing as evidenced by pt admitted w/ multiple advanced wounds including full thickness wound x 7 and unstageable wounds x 2, refer to eval. CURRENT TF:Jevity 1.2 @ 60ml/hr x 24 hrs-> now Glucerna 1.2 ENTERAL NUTRITION RECOMMENDATIONS: Glucerna 1.2 @ 65ml/hr x 24 hrs + Prosource 1pkt TID to provide 1560ml, 1872kcal, 94g+ 33g prot, 1259ml free water * Increase goal rate to 65ml/hr x 24 hrs to better meet est needs * Add Prosource 1pkt TID to meet increased protein needs * HOB over 30 degrees/ water flush 150ml q 6hrs without IVF ADDITIONAL RECOMMENDATIONS: * Calibrated bedscale wt * Wound Care: Con't Vit C 500mg BID, ZnSO4 220mg QD x 10 days add Stevie BID * Monitor BGs, need for carb controlled TF -> now on Glucerna 1.2 * Monitor lytes, replete as needed (6) Acute respiratory failure with hypoxia (7) HCAP (healthcare-associated pneumonia) Deny Westfall Aug 24, 2020 13:03
--- NOTE | 2020-08-24 17:51 | Pulmonology Progress Note ---
Subjective ROS Limited/Unobtainable: Yes Gastrointestinal/Abdominal: Reports: diarrhea, other - X 1 Allergies: Coded Allergies: No Known Allergies (Unverified , 11/02/19) All Systems: reviewed and negative except above Objective Last 24 Hour Vital Signs Date Time Temp Pulse Resp B/P (MAP) Pulse Ox O2 Delivery O2 Flow Rate FiO2 08/24/20 15:43 97.9 89 26 85/46 (59) 90 08/24/20 13:19 98 T-Piece 10.0 35 08/24/20 12:00 83 08/24/20 11:55 97.9 87 26 84/42 (56) 92 08/24/20 09:00 Trach Collar 10.0 08/24/20 08:21 100 101/54 08/24/20 08:00 99.5 100 17 101/54 (70) 92 08/24/20 08:00 100 08/24/20 07:05 98 T-Piece 10.0 35 08/24/20 07:04 84 16 98 T-Piece 10.0 35 08/24/20 05:00 100/48 (65) 08/24/20 04:00 91 08/24/20 04:00 97.9 90 16 81/43 (56) 95 08/24/20 01:24 97 T-Piece 10.0 35 08/24/20 00:00 98.3 97 16 91/42 (58) 96 08/24/20 00:00 93 08/23/20 21:00 98 97/56 08/23/20 21:00 Trach Collar 10.0 08/23/20 20:00 97.9 98 19 97/56 (70) 96 08/23/20 20:00 100 08/23/20 18:48 88 16 97 T-Piece 10.0 35 08/23/20 18:45 97 T-Piece 10.0 35 Intake and Output 08/23/20 08/24/20 19:00 07:00 Intake Total 1070 ml 960 ml Output Total 300 ml Balance 1070 ml 660 ml Intake Free Water 320 ml 300 ml Tube Feeding 750 ml 660 ml Output Urine Total 300 ml # Bowel Movements 3 1 Laboratory Tests 08/24/20 08:00: White Blood Count 9.2, Red Blood Count 2.62L, Hemoglobin 7.2L, Hematocrit 23.4L, Mean Corpuscular Volume 89, Mean Corpuscular Hemoglobin 27.5, Mean Corpuscular Hemoglobin Concent 30.8L, Red Cell Distribution Width 15.5H, Platelet Count 317, Mean Platelet Volume 5.9L, Neutrophils (%) (Auto) , Lymphocytes (%) (Auto) , Monocytes (%) (Auto) , Eosinophils (%) (Auto) , Basophils (%) (Auto) , Differential Total Cells Counted 100, Neutrophils % (Manual) 69, Lymphocytes % (Manual) 23, Monocytes % (Manual) 5, Eosinophils % (Manual) 3, Basophils % (Manual) 0, Band Neutrophils 0, Platelet Estimate Adequate, Platelet Morphology Normal, Hypochromasia 1+, Anisocytosis 1+, Sodium Level 136, Potassium Level 5.0, Chloride Level 104, Carbon Dioxide Level 25, Anion Gap 7, Blood Urea Nitrogen 57H, Creatinine 1.4H, Estimat Glomerular Filtration Rate 50.4, Glucose Level 89, Calcium Level 8.2L, Magnesium Level 1.7L, Total Bilirubin 0.6, Aspartate Amino Transf (AST/SGOT) 35, Alanine Aminotransferase (ALT/SGPT) 61, Alkaline Phosphatase 136H, Pro-B-Type Natriuretic Peptide 60054M, Total Protein 6.1L, Albumin 0.8L, Globulin 5.3, Albumin/Globulin Ratio 0.2L Current Medications Medications (Trade) Dose Ordered Sig/Clive Route PRN Reason Start Time Stop Time Status Last Admin Dose Admin Acetaminophen (Tylenol) 650 mg Q4H PRN GT Temp >100.5 08/18/20 21:15 09/17/20 21:14 08/18/20 21:36 Amiodarone HCl (Cordarone) 200 mg DAILY GT 08/24/20 09:00 10/28/20 17:59 08/24/20 08:21 Ascorbic Acid (Vitamin C) 500 mg DAILY ORAL 08/17/20 16:00 09/16/20 15:59 08/24/20 08:22 Atorvastatin Calcium (Lipitor) 10 mg BEDTIME ORAL 08/05/20 21:00 10/22/20 20:59 08/23/20 23:17 Chlorhexidine Gluconate (Jennifer-Hex 2%) 1 applic DAILY@1999 TOPIC 07/17/20 20:00 10/15/20 19:59 08/23/20 23:17 Colistimethate Sodium (Colistin) 150 mg EVERY 12 HOURS IVP 08/22/20 12:30 08/26/20 21:01 08/24/20 08:20 Famotidine (Pepcid) 20 mg Q12HR GT 07/16/20 21:00 10/14/20 20:59 08/24/20 08:21 Finasteride (Proscar) 5 mg DAILY ORAL 07/15/20 09:00 10/13/20 08:59 08/24/20 08:21 Hydralazine HCl (Apresoline) 25 mg Q6H PRN GT SBP above 150 07/24/20 23:30 10/22/20 23:29 07/26/20 05:22 Levetiracetam (Keppra) 1,000 mg Q12HR ORAL 08/22/20 09:07 10/06/20 09:06 08/24/20 08:22 Meropenem 1 gm/ Sodium Chloride 55 ml @ 110 mls/hr Q12HR IVPB 08/25/20 09:00 08/26/20 13:59 Metoclopramide HCl (Reglan) 5 mg Q6H IVP 08/21/20 22:00 09/20/20 21:59 08/24/20 15:49 Metoprolol Tartrate (Lopressor) 100 mg Q12HR ORAL 08/13/20 09:00 11/11/20 08:59 08/24/20 08:21 Multivitamins (Multivitamins) 1 tab DAILY ORAL 08/17/20 16:00 09/16/20 15:59 08/24/20 08:21 Sodium Hypochlorite (Dakin's Half Strength) 1 applic DAILY TOPIC 08/19/20 16:30 09/18/20 16:29 08/24/20 08:22 Sodium Chloride 550 ml @ 125 mls/hr Q4H24M IV 08/24/20 18:00 09/23/20 17:59 UNV Assessment/Plan Assessment/Plan Pulmonary Progress Note Subjective HPI: Patient is a 69 year old man, Tracheostomy status, s/p previous Craniotomy, RCA occlusion, 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 Admitted with Proteus/Pseudomanas Pneumonia,Left pleural effusion. Nonverbal status. 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 Past Surgical History: Craniotomy, Tracheostomy, G tube Pertinent Family History: NC Social History: NC All Other Systems: limited Objective Physical Exam Vital Signs Noted General Appearance: alert, mild distress, Chronically Ill Head: normocephalic, atraumatic Eyes: bilateral eye PERRL, bilateral eye EOMI ENT: hearing grossly normal, normal pharynx Neck: no meningismus, tracheotomy Respiratory: chest non-tender, CTAB Cardiovascular: regular rate, rhythm, HS1, HS2 normal,no murmur Gastrointestinal: normal bowel sounds, non tender, no mass, no organomegaly, no bruit, non-distended Musculoskeletal: other - Contracted,decubitus LE dressings Neurologic: no focal signs noted,no seizures Assessment/Plan Impression: Healthcare-associated pneumonia Acute respiratory failure with hypoxia Tracheostomy status Pleural effusion, left-recurrent s/p tap Decubitus ulcers Urinary tract infection Anemia S/p previous Craniotomy, RCA occlusion, 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
[2020-08-24] MEDS: Sodium Chloride 550 ML IV SCH ×2 (18:11→22:25)
--- NOTE | 2020-08-24 19:33 | NUR ---
NURSE HAND-OFF REPORT: Important Events on Shift: Episodes of hypotension noted, Dr Devlin and Dr Augustine with orders noted and carried out. For transfusion of 2 units PRBC once available, RN called blood bank but no answer and mailbox was full. O2 saturation fluctuating from 80-99%, RT notified and attended to patient periodically. Patient Status: obtunded Diet: Vital AF 1.2 x 70cc/hr Pending Orders: transfusion 2 units PRBC once available Pending Results/Labs: Pending MD notification: Latest Vital Signs: Temperature 97.9 , Pulse 87 , B/P 85 /46 , Respiratory Rate 16 , O2 SAT 93 , Trach Collar, O2 Flow Rate 12.0 . Vital Sign Comment: EKG Rhythm: Sinus Rhythm Rhythm change?: N MD Notified?: MD Response: Latest Ramirez Fall Score: 70 Fall Risk: High Risk Safety Measures: Call light Within Reach, Bed Alarm Zone 1, Side Rails Side Rails x3, Bed position Low and Locked. Fall Precautions: Yellow Socks Patient Fall Education Report given to Ronal RN.
--- NOTE | 2020-08-24 19:34 | NUR ---
NURSE NOTES: The patient is awake but is not alert and has a trach with 10 liters of oxygen @ 35% FIO2 with Spo2 about 94%. The HOB is at 45% due to the risk of an aspiration reaction. The patient has a GT feeding of Vital AF 1.2 running at 70 cc/hr.The placement check is done and it's intact. The patient will be receiving PRBC transfusion due to low Hgb with cross and match in process. The patient has a PICC line noted in the left upper arm double lumen that is patent and asymptomatic.The bed in lowest level, call light within easy reach and siderails up x2. will continue to monitor as indicated.
[2020-08-24 19:51] LABS: MEAN CORPUSCULAR VOLUME 88 FL (80-99); PLATELET COUNT 303 K/UL (150-450); RED BLOOD COUNT 2.26 M/UL (4.70-6.10); WHITE BLOOD COUNT 9.5 K/UL (4.8-10.8)
[2020-08-24 19:55] LABS: BASOPHILS % (AUTO) 0.6 % (0.0-2.0); EOSINOPHILS % (AUTO) 4.7 % (0.0-3.0); HEMOGLOBIN 6.3 G/DL (14.2-18.0); LYMPHOCYTES % (AUTO) 16.6 % (20.0-45.0); MONOCYTES % (AUTO) 6.5 % (1.0-10.0); NEUTROPHILS % (AUTO) 70.4 % (45.0-75.0)
[2020-08-24] MEDS: Dyna-Hex 2% Top Sol 2oz TOPIC SCH (20:51)
[2020-08-24] MEDS: Atorvastatin 20mg tab ORAL SCH (20:59)
--- NOTE | 2020-08-24 23:05 | NUR ---
NURSE NOTES: The patient was started on PRBC transfusion of blood and seen to be tolerating at this time.The is no evidence of a transfusion reaction noted.Will continue to monitor as indicated
[2020-08-25] VITALS (8 sets, daily range): BP systolic 79–111; BP diastolic 43–67
--- NOTE | 2020-08-25 01:45 | NUR ---
NURSE NOTES: The patient completed his 1st bag of PRBC transfusion and the is no transfusion reaction noted. Will continue to monitor
[2020-08-25] MEDS: Sodium Chloride 550 ML IV SCH ×5 (02:55→20:54)
[2020-08-25] MEDS: Metoclopramide 10mg/2ml Inj IVP SCH ×4 (04:00→22:19)
--- NOTE | 2020-08-25 04:50 | NUR ---
NURSE NOTES: The patient completed 2 unit of PRBC is awake and does 't appear to be in any active distress. The is no evidence of a tranfusion reaction noted.
--- NOTE | 2020-08-25 05:59 | NUR ---
NURSE NOTES: The patient Hgb is about 9.2l, Dr. Augustine was called and a voice message was left that the Patient received 2 units of PRBC last night when the Hgb was noted at 6.3L. was endorsed to day shift RN as indicated.
[2020-08-25 06:49] LABS: BASOPHILS % (AUTO) 0.3 % (0.0-2.0); EOSINOPHILS % (AUTO) 4.2 % (0.0-3.0); HEMATOCRIT 30.2 % (42.0-52.0); HEMOGLOBIN 9.2 G/DL (14.2-18.0); LYMPHOCYTES % (AUTO) 13.4 % (20.0-45.0); MEAN CORPUSCULAR VOLUME 88 FL (80-99); MONOCYTES % (AUTO) 6.6 % (1.0-10.0); NEUTROPHILS % (AUTO) 75.5 % (45.0-75.0); PLATELET COUNT 309 K/UL (150-450); RED BLOOD COUNT 3.42 M/UL (4.70-6.10); RED CELL DISTRIBUTION WIDTH 16.6 % (11.6-14.8); WHITE BLOOD COUNT 8.4 K/UL (4.8-10.8)
--- NOTE | 2020-08-25 07:13 | NUR ---
NURSE HAND-OFF REPORT: Important Events on Shift:The patient Hgb is about 9.2l, Dr. Augustine was called and a voice message was left that the Patient received 2 units of PRBC last night when the Hgb was noted at 6.3L.. Patient Status: Diet: Pending Orders: Pending Results/Labs: Pending MD notification: Latest Vital Signs: Temperature 98.6 , Pulse 95 , B/P 100 /49 , Respiratory Rate 18 , O2 SAT 92 , Trach Collar, O2 Flow Rate 10.0 . Vital Sign Comment: EKG Rhythm: Sinus Rhythm Rhythm change?: N Notified?: N -Dr. Aubree VALDEZ Response: Message left await call Latest Ramirez Fall Score: 70 Fall Risk: High Risk Safety Measures: Call light Within Reach, Bed Alarm Zone 1, Side Rails Side Rails x3, Bed position Low and Locked. Fall Precautions: Yellow Socks Patient Fall Education Report given to .
[2020-08-25 07:20] LABS: ALBUMIN 0.8 G/DL (3.4-5.0); ALBUMIN/GLOBULIN RATIO 0.2 (1.0-2.7); BILIRUBIN,TOTAL 0.8 MG/DL (0.2-1.0); CALCIUM 8.3 MG/DL (8.5-10.1); CREATININE 1.7 MG/DL (0.55-1.30); POTASSIUM 5.1 MMOL/L (3.5-5.1)
--- NOTE | 2020-08-25 07:40 | NUR ---
NURSE NOTES: Received report from SELIN Villeda. Pt is resting in bed, sleeping. 94% spo2 unlabored evben breathing on T collar, BVM bedside. pt AOx0, unable to respond. no s/s or complaint of distress at this time. pt wounds noted, multiple unchangeable. Gtube held at this time per SELIN Villeda, Pt was not tolerating well. valles draining to gravity, yellow.. REBECCA central line running fluids at 50cc, asymptomatic and intact. Pt on p200 mattress. pt bed low and locked, call light in reach and bed alarm on. SCRAP DROP CRANE OPERATOR bedside taking vitals at this time.
[2020-08-25] MEDS: Amiodarone 200mg tab GT SCH (08:31)
[2020-08-25] MEDS: Ascorbic Acid 500mg tab ORAL SCH (08:32)
[2020-08-25] MEDS: Colistin 150mg vial IVP SCH ×2 (08:32→20:40)
[2020-08-25] MEDS: Metoprolol Tartrate 100mg tab ORAL SCH ×2 (08:45→20:23)
--- NOTE | 2020-08-25 08:48 | Pulmonology Progress Note ---
Subjective ROS Limited/Unobtainable: Yes Gastrointestinal/Abdominal: Reports: diarrhea, other - X 1 Allergies: Coded Allergies: No Known Allergies (Unverified , 11/02/19) All Systems: reviewed and negative except above Subjective CARE NOTED nonverbal on oxygen at 35% hypotensive over the weekend Objective Last 24 Hour Vital Signs Date Time Temp Pulse Resp B/P (MAP) Pulse Ox O2 Delivery O2 Flow Rate FiO2 08/25/20 07:15 93 16 93 T-Piece 12.0 50 08/25/20 07:15 93 T-Piece 12.0 50 08/25/20 04:00 98.6 95 18 100/49 (66) 92 08/25/20 04:00 96 08/25/20 01:53 94 T-Piece 10.0 35 08/25/20 00:00 98.9 101 16 105/53 (70) 92 08/25/20 00:00 97 08/24/20 21:00 Trach Collar 10.0 08/24/20 21:00 93 95/52 08/24/20 20:00 97.9 93 16 95/52 (66) 96 08/24/20 20:00 93 08/24/20 18:46 87 16 93 T-Piece 12.0 50 08/24/20 18:46 93 T-Piece 12.0 50 08/24/20 16:00 87 08/24/20 15:43 97.9 89 26 85/46 (59) 90 08/24/20 13:19 98 T-Piece 10.0 35 08/24/20 12:00 83 08/24/20 11:55 97.9 87 26 84/42 (56) 92 08/24/20 09:00 Trach Collar 10.0 Intake and Output 08/24/20 08/25/20 19:00 07:00 Intake Total 230 ml 760 ml Output Total 300 ml 800 ml Balance -70 ml -40 ml Intake Free Water 100 ml 100 ml Tube Feeding 130 ml 660 ml Output Urine Total 300 ml 800 ml # Bowel Movements 1 Objective WDWN NAD awake chronically ill moderate breath sounds bilaterally without rhonchi [id number] NABS nontender GT no CCE nonfocal weak wounds noted Laboratory Tests 08/24/20 19:00: White Blood Count 9.5, Red Blood Count 2.26L, Hemoglobin 6.3*L, Hematocrit 20.0L , Mean Corpuscular Volume 88, Mean Corpuscular Hemoglobin 28.0, Mean Corpuscular Hemoglobin Concent 31.8L, Red Cell Distribution Width 16.0H, Platelet Count 303, Mean Platelet Volume 6.2L, Neutrophils (%) (Auto) 70.4, Lymphocytes (%) (Auto) 16.6L, Monocytes (%) (Auto) 6.5, Eosinophils (%) (Auto) 4.7H, Basophils (%) (Auto) 0.6 08/25/20 06:30: White Blood Count 8.4, Red Blood Count 3.42L, Hemoglobin 9.2#L, Hematocrit 30.2#L, Mean Corpuscular Volume 88, Mean Corpuscular Hemoglobin 27.0, Mean Corpuscular Hemoglobin Concent 30.6L, Red Cell Distribution Width 16.6H, Platelet Count 309, Mean Platelet Volume 5.9L, Neutrophils (%) (Auto) 75.5H, Lymphocytes (%) (Auto) 13.4L, Monocytes (%) (Auto) 6.6, Eosinophils (%) (Auto) 4.2H, Basophils (%) (Auto) 0.3, Sodium Level 137, Potassium Level 5.1, Chloride Level 107, Carbon Dioxide Level 20L, Anion Gap 10, Blood Urea Nitrogen 64H, Creatinine 1.7H, Estimat Glomerular Filtration Rate 40.3, Glucose Level 126H, Calcium Level 8.3L, Magnesium Level 2.0, Total Bilirubin 0.8, Aspartate Amino Transf (AST/SGOT) 40H, Alanine Aminotransferase (ALT/SGPT) 56, Alkaline Phosphatase 158H, Total Protein 5.5L, Albumin 0.8L, Globulin 4.7, Albumin/Globulin Ratio 0.2L Current Medications Medications (Trade) Dose Ordered Sig/Clive Route PRN Reason Start Time Stop Time Status Last Admin Dose Admin Acetaminophen (Tylenol) 650 mg Q4H PRN GT Temp >100.5 08/18/20 21:15 09/17/20 21:14 08/18/20 21:36 Amiodarone HCl (Cordarone) 200 mg DAILY GT 08/24/20 09:00 10/28/20 17:59 08/24/20 08:21 Ascorbic Acid (Vitamin C) 500 mg DAILY ORAL 08/17/20 16:00 09/16/20 15:59 08/24/20 08:22 Atorvastatin Calcium (Lipitor) 10 mg BEDTIME ORAL 08/05/20 21:00 10/22/20 20:59 08/24/20 20:59 Chlorhexidine Gluconate (Jennifer-Hex 2%) 1 applic DAILY@2000 TOPIC 07/17/20 20:00 10/15/20 19:59 08/24/20 20:51 Colistimethate Sodium (Colistin) 150 mg EVERY 12 HOURS IVP 08/22/20 12:30 08/26/20 21:01 08/24/20 20:51 Famotidine (Pepcid) 20 mg Q12HR GT 07/16/20 21:00 10/14/20 20:59 08/24/20 20:51 Finasteride (Proscar) 5 mg DAILY ORAL 07/15/20 09:00 10/13/20 08:59 08/24/20 08:21 Hydralazine HCl (Apresoline) 25 mg Q6H PRN GT SBP above 150 07/24/20 23:30 10/22/20 23:29 07/26/20 05:22 Levetiracetam (Keppra) 1,000 mg Q12HR ORAL 08/22/20 09:07 10/06/20 09:06 08/24/20 20:52 Meropenem 1 gm/ Sodium Chloride 55 ml @ 110 mls/hr Q12HR IVPB 08/25/20 09:00 08/30/20 08:59 Metoclopramide HCl (Reglan) 5 mg Q6H IVP 08/21/20 22:00 09/20/20 21:59 08/25/20 04:00 Metoprolol Tartrate (Lopressor) 100 mg Q12HR ORAL 08/13/20 09:00 11/11/20 08:59 08/24/20 08:21 Multivitamins (Multivitamins) 1 tab DAILY ORAL 08/17/20 16:00 09/16/20 15:59 08/24/20 08:21 Sodium Hypochlorite (Dakin's Half Strength) 1 applic DAILY TOPIC 08/19/20 16:30 09/18/20 16:29 08/24/20 08:22 Sodium Chloride 550 ml @ 125 mls/hr Q4H24M IV 08/24/20 18:00 09/23/20 17:59 08/25/20 07:14 Assessment/Plan Assessment/Plan Impression: Healthcare-associated pneumonia Acute respiratory failure with hypoxia Tracheostomy status Pleural effusion, left-recurrent s/p tap Decubitus ulcers Urinary tract infection Anemia S/p previous Craniotomy, RCA occlusion, 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
[2020-08-25] MEDS: Meropenem 1 GM in NS 55 ML IVPB SCH ×2 (08:51→21:42)
[2020-08-25] MEDS: Dakin's 0.25% (Half Strength) 16oz TOPIC SCH (08:52)
[2020-08-25] MEDS ORDERED: Meropenem 1 GM in NS 55 ML IVPB SCH (09:00)
--- NOTE | 2020-08-25 09:47 | General Progress Note ---
Subjective ROS Limited/Unobtainable: No Constitutional: Reports: malaise, weakness HEENT: Reports: no symptoms Cardiovascular: Reports: no symptoms Respiratory: Reports: cough, shortness of breath Gastrointestinal/Abdominal: Reports: difficulty swallowing Genitourinary: Reports: no symptoms Neurologic/Psychiatric: Reports: pre-existing deficit Endocrine: Reports: no symptoms Hematologic/Lymphatic: Reports: anemia Allergies: Coded Allergies: No Known Allergies (Unverified , 11/02/19) All Systems: reviewed and negative except above Subjective no events. stable. fevers better. remains on iv abx. s/p transfusion. renal fxn worse. increase o2 requirements. poorly responsive. Objective Last 24 Hour Vital Signs Date Time Temp Pulse Resp B/P (MAP) Pulse Ox O2 Delivery O2 Flow Rate FiO2 08/25/20 09:00 Trach Collar 10.0 08/25/20 08:45 90 98/53 08/25/20 08:00 98.3 95 20 98/53 (68) 92 08/25/20 08:00 95 08/25/20 07:15 93 16 93 T-Piece 12.0 50 08/25/20 07:15 93 T-Piece 12.0 50 08/25/20 04:00 98.6 95 18 100/49 (66) 92 08/25/20 04:00 96 08/25/20 01:53 94 T-Piece 10.0 35 08/25/20 00:00 98.9 101 16 105/53 (70) 92 08/25/20 00:00 97 08/24/20 21:00 Trach Collar 10.0 08/24/20 21:00 93 95/52 08/24/20 20:00 97.9 93 16 95/52 (66) 96 08/24/20 20:00 93 08/24/20 18:46 87 16 93 T-Piece 12.0 50 08/24/20 18:46 93 T-Piece 12.0 50 08/24/20 16:00 87 08/24/20 15:43 97.9 89 26 85/46 (59) 90 08/24/20 13:19 98 T-Piece 10.0 35 08/24/20 12:00 83 08/24/20 11:55 97.9 87 26 84/42 (56) 92 Intake and Output 08/24/20 08/25/20 19:00 07:00 Intake Total 230 ml 760 ml Output Total 300 ml 800 ml Balance -70 ml -40 ml Intake Free Water 100 ml 100 ml Tube Feeding 130 ml 660 ml Output Urine Total 300 ml 800 ml # Bowel Movements 1 Laboratory Tests 08/24/20 19:00: White Blood Count 9.5, Red Blood Count 2.26L, Hemoglobin 6.3*L, Hematocrit 20.0L , Mean Corpuscular Volume 88, Mean Corpuscular Hemoglobin 28.0, Mean Corpuscular Hemoglobin Concent 31.8L, Red Cell Distribution Width 16.0H, Platelet Count 303, Mean Platelet Volume 6.2L, Neutrophils (%) (Auto) 70.4, Lymphocytes (%) (Auto) 16.6L, Monocytes (%) (Auto) 6.5, Eosinophils (%) (Auto) 4.7H, Basophils (%) (Auto) 0.6 08/25/20 06:30: White Blood Count 8.4, Red Blood Count 3.42L, Hemoglobin 9.2#L, Hematocrit 30.2#L, Mean Corpuscular Volume 88, Mean Corpuscular Hemoglobin 27.0, Mean Corpuscular Hemoglobin Concent 30.6L, Red Cell Distribution Width 16.6H, Platelet Count 309, Mean Platelet Volume 5.9L, Neutrophils (%) (Auto) 75.5H, Lymphocytes (%) (Auto) 13.4L, Monocytes (%) (Auto) 6.6, Eosinophils (%) (Auto) 4.2H, Basophils (%) (Auto) 0.3, Sodium Level 137, Potassium Level 5.1, Chloride Level 107, Carbon Dioxide Level 20L, Anion Gap 10, Blood Urea Nitrogen 64H, Creatinine 1.7H, Estimat Glomerular Filtration Rate 40.3, Glucose Level 126H, Calcium Level 8.3L, Magnesium Level 2.0, Total Bilirubin 0.8, Aspartate Amino Transf (AST/SGOT) 40H, Alanine Aminotransferase (ALT/SGPT) 56, Alkaline Phosphatase 158H, Total Protein 5.5L, Albumin 0.8L, Globulin 4.7, Albumin/Globulin Ratio 0.2L Height (Feet): 5 Height (Inches): 4.00 Weight (Pounds): 171 Objective General Appearance: WD/WN, confused EENT: normal ENT inspection Neck: normal alignment Cardiovascular: normal rate, regular rhythm Respiratory/Chest: rhonchi - bilaterally Abdomen: normal bowel sounds, non tender, soft, no organomegaly Edema: no edema noted Leg (L), no edema noted Leg (R) Neurologic: disoriented, aphasia Skin: normal pigmentation Assessment/Plan Problem List: (1) Anemia ICD Codes: D64.9 - Anemia, unspecified SNOMED: 059573142, 833807559 Qualifiers: Qualified Codes: D50.0 - Iron deficiency anemia secondary to blood loss (chronic) (2) Pleural effusion, left ICD Codes: J90 - Pleural effusion, not elsewhere classified SNOMED: 37309057, 186625027 (3) Malfunction of gastrostomy tube ICD Codes: K94.23 - Gastrostomy malfunction SNOMED: 197605634 (4) Acute respiratory failure with hypoxia ICD Codes: J96.01 - Acute respiratory failure with hypoxia SNOMED: 01670176, 522517532 (5) HCAP (healthcare-associated pneumonia) ICD Codes: J18.9 - Pneumonia, unspecified organism SNOMED: 738991834, 841470562 Status: stable, progressing Assessment/Plan: iv abx per id follow up cultures trach care resp rx/suctioning as needed tube feeds monitor residuals sz rx bp rx monitor h/h transfuse as needed epogen iron rx repeat cxr wound care monitor labs Angel Jaramillo MD Aug 25, 2020 09:47
--- NOTE | 2020-08-25 10:50 | Infectious Diseases Prog Note ---
"Assessment/Plan Assessment/Plan antibiotics : meropenem A 1. pseudomonas | proteus pneumonia. COVID19 test is negative. 2. proteus | providencia sepsis 3. pseudomonas UTI 4. Hypertension. 5. Atrial fibrillation 6. respiratory failure s/p tracheostomy 7. pleural effusion s/p thoracentesis P 1. continue meropenem 5 more days 2. continue iv colistin 1 more day 3. will follow up cultures Subjective ROS Limited/Unobtainable: Yes Allergies: Coded Allergies: No Known Allergies (Unverified , 11/02/19) Objective Last 24 Hour Vital Signs Date Time Temp Pulse Resp B/P (MAP) Pulse Ox O2 Delivery O2 Flow Rate FiO2 08/25/20 09:00 Trach Collar 10.0 08/25/20 08:45 90 98/53 08/25/20 08:00 98.3 95 20 98/53 (68) 92 08/25/20 08:00 95 08/25/20 07:15 93 16 93 T-Piece 12.0 50 08/25/20 07:15 93 T-Piece 12.0 50 08/25/20 04:00 98.6 95 18 100/49 (66) 92 08/25/20 04:00 96 08/25/20 01:53 94 T-Piece 10.0 35 08/25/20 00:00 98.9 101 16 105/53 (70) 92 08/25/20 00:00 97 08/24/20 21:00 Trach Collar 10.0 08/24/20 21:00 93 95/52 08/24/20 20:00 97.9 93 16 95/52 (66) 96 08/24/20 20:00 93 08/24/20 18:46 87 16 93 T-Piece 12.0 50 08/24/20 18:46 93 T-Piece 12.0 50 08/24/20 16:00 87 08/24/20 15:43 97.9 89 26 85/46 (59) 90 08/24/20 13:19 98 T-Piece 10.0 35 08/24/20 12:00 83 08/24/20 11:55 97.9 87 26 84/42 (56) 92 Height (Feet): 5 Height (Inches): 4.00 Weight (Pounds): 171 HEENT: status post trach Respiratory/Chest: rhonchi - bilaterally Cardiovascular: normal rate, regular rhythm, no gallop/murmur Abdomen: soft, non tender, other - GT Extremities: no edema Laboratory Tests Test 08/24/20 19:00 08/25/20 06:30 White Blood Count 9.5 K/UL (4.8-10.8) 8.4 K/UL (4.8-10.8) Red Blood Count 2.26 M/UL (4.70-6.10) L 3.42 M/UL (4.70-6.10) L Hemoglobin 6.3 G/DL (14.2-18.0) *L 9.2 G/DL (14.2-18.0) #L Hematocrit 20.0 % (42.0-52.0) L 30.2 % (42.0-52.0) #L Mean Corpuscular Volume 88 FL (80-99) 88 FL (80-99) Mean Corpuscular Hemoglobin 28.0 PG (27.0-31.0) 27.0 PG (27.0-31.0) Mean Corpuscular Hemoglobin Concent 31.8 G/DL (32.0-36.0) L 30.6 G/DL (32.0-36.0) L Red Cell Distribution Width 16.0 % (11.6-14.8) H 16.6 % (11.6-14.8) H Platelet Count 303 K/UL (150-450) 309 K/UL (150-450) Mean Platelet Volume 6.2 FL (6.5-10.1) L 5.9 FL (6.5-10.1) L Neutrophils (%) (Auto) 70.4 % (45.0-75.0) 75.5 % (45.0-75.0) H Lymphocytes (%) (Auto) 16.6 % (20.0-45.0) L 13.4 % (20.0-45.0) L Monocytes (%) (Auto) 6.5 % (1.0-10.0) 6.6 % (1.0-10.0) Eosinophils (%) (Auto) 4.7 % (0.0-3.0) H 4.2 % (0.0-3.0) H Basophils (%) (Auto) 0.6 % (0.0-2.0) 0.3 % (0.0-2.0) Sodium Level 137 MMOL/L (136-145) Potassium Level 5.1 MMOL/L (3.5-5.1) Chloride Level 107 MMOL/L (98-107) Carbon Dioxide Level 20 MMOL/L (21-32) L Anion Gap 10 mmol/L (5-15) Blood Urea Nitrogen 64 mg/dL (7-18) H Creatinine 1.7 MG/DL (0.55-1.30) H Estimat Glomerular Filtration Rate 40.3 mL/min (>60) Glucose Level 126 MG/DL (74-106) H Calcium Level 8.3 MG/DL (8.5-10.1) L Magnesium Level 2.0 MG/DL (1.8-2.4) Total Bilirubin 0.8 MG/DL (0.2-1.0) Aspartate Amino Transf (AST/SGOT) 40 U/L (15-37) H Alanine Aminotransferase (ALT/SGPT) 56 U/L (12-78) Alkaline Phosphatase 158 U/L (46-116) H Total Protein 5.5 G/DL (6.4-8.2) L Albumin 0.8 G/DL (3.4-5.0) L Globulin 4.7 g/dL Albumin/Globulin Ratio 0.2 (1.0-2.7) L Current Medications Medications (Trade) Dose Ordered Sig/Clive Route PRN Reason Start Time Stop Time Status Last Admin Dose Admin Acetaminophen (Tylenol) 650 mg Q4H PRN GT Temp >100.5 08/18/20 21:15 09/17/20 21:14 08/18/20 21:36 Amiodarone HCl (Cordarone) 200 mg DAILY GT 08/24/20 09:00 10/28/20 17:59 08/25/20 08:31 Ascorbic Acid (Vitamin C) 500 mg DAILY ORAL 08/17/20 16:00 09/16/20 15:59 08/25/20 08:32 Atorvastatin Calcium (Lipitor) 10 mg BEDTIME ORAL 08/05/20 21:00 10/22/20 20:59 08/24/20 20:59 Chlorhexidine Gluconate (Jennifer-Hex 2%) 1 applic DAILY@1999 TOPIC 07/17/20 20:00 10/15/20 19:59 08/24/20 20:51 Colistimethate Sodium (Colistin) 150 mg EVERY 12 HOURS IVP 08/22/20 12:30 08/26/20 21:01 08/25/20 08:32 Epoetin Tino (Epoetin Tino-EPBX(NON ESRD)) 5,000 unit TUE-TUE-TUE SUBQ 08/25/20 21:00 11/23/20 20:59 Famotidine (Pepcid) 20 mg Q12HR GT 07/16/20 21:00 10/14/20 20:59 08/25/20 08:32 Finasteride (Proscar) 5 mg DAILY ORAL 07/15/20 09:00 10/13/20 08:59 08/25/20 08:32 Hydralazine HCl (Apresoline) 25 mg Q6H PRN GT SBP above 150 07/24/20 23:30 10/22/20 23:29 07/26/20 05:22 Levetiracetam (Keppra) 1,000 mg Q12HR ORAL 08/22/20 09:07 10/06/20 09:06 08/25/20 08:32 Meropenem 1 gm/ Sodium Chloride 55 ml @ 110 mls/hr Q12HR IVPB 08/25/20 09:00 08/30/20 08:59 08/25/20 08:51 Metoclopramide HCl (Reglan) 5 mg Q6H IVP 08/21/20 22:00 09/20/20 21:59 08/25/20 08:54 Metoprolol Tartrate (Lopressor) 100 mg Q12HR ORAL 08/13/20 09:00 11/11/20 08:59 08/24/20 08:21 Multivitamins (Multivitamins) 1 tab DAILY ORAL 08/17/20 16:00 09/16/20 15:59 08/25/20 08:32 Sodium Hypochlorite (Dakin's Half Strength) 1 applic DAILY TOPIC 08/19/20 16:30 09/18/20 16:29 08/25/20 08:52 Sodium Chloride 550 ml @ 125 mls/hr Q4H24M IV 08/24/20 18:00 09/23/20 17:59 08/25/20 07:14 Kristie Reina MD Aug 25, 2020 10:49"
[2020-08-25] MEDS: Acetaminophen 650mg/20.3ml GT PRN ×2 (12:00→16:16)
--- NOTE | 2020-08-25 12:04 | NUR ---
NURSE NOTES: Pt low saturation of 74-77%, deep suction x4, Pt remain low 80s, called RT Marin to see Pt. ABJosias drawn. Addendum: 08/25/20 at 1208 by Opal Connolly RN RN haydee made aware awaiting call back
--- NOTE | 2020-08-25 12:50 | NUR ---
NURSE NOTES: Pt ABG results reported to Dr Harrington, order for Pt to be on vent. notified house cleaner supervisor, and RT. awaiting room. Pt is 5% spo2 at this time. Pt converted from SR to Afib to Aflutter back to SR. Aubree made aware. no new orders at this time.
--- NOTE | 2020-08-25 13:12 | NUR ---
NURSE NOTES: Notified pt family of transfer. PETER druon.
--- NOTE | 2020-08-25 13:31 | NUR ---
RD ASSESSMENT & RECOMMENDATIONS SEE CARE ACTIVITY FOR COMPLETE ASSESSMENT DAILY ESTIMATED NEEDS: Needs based on Wounds, pulmonary/ 74.5kg 25-30 kcals/kg 9536-8627 total kcals 1.5-2 g protein/kg 111-149 g total protein 25-30 mL/kg 2073-5062 total fluid mLs NUTRITION DIAGNOSIS: * Swallowing difficulty R/T dysphagia, h/o craniotomy, respiratory failure as evidenced by pt on T-collar, GJ tube dependent. * Increased kcal/prot/micronutrients needs R/T wound healing as evidenced by pt admitted w/ multiple advanced wounds including full thickness wound x 7 and unstageable wounds x 2, refer to WC eval. CURRENT TF:Vital AF 1.2 @70ml/hr ENTERAL NUTRITION RECOMMENDATIONS: Vital AF 1.2 @ 65ml/hr x 24 hrs to provide 1560ml, 1872kcal, 117g prot, 1265ml free water * Lower goal rate to 65ml/hr x 24 hrs: meets 100% est kcal/prot needs * HOB over 30 degrees/ water flush 180ml q 6hrs without IVF ------ elemental TF formula of Vital AF not indicated, consider changing TF to Glucerna 1.2 @ 65ml/hr x 24 hrs + Prosource 1pkt TID to provide 1560ml, 1872kcal, 94g+ 33g prot, 1259ml free water ADDITIONAL RECOMMENDATIONS: * Calibrated bedscale wt * Wound Care: Con't Vit C 500mg BID, ZnSO4 220mg QD x 10 days add Stevie BID * Monitor lytes, replete as needed * DC D5 for improved BG control increase H2O flushes instead (Na now wnl, BUN elev) * Rec NISS
--- NOTE | 2020-08-25 13:36 | NUR ---
TRANSFER TO FLOOR: Patient transferred to SDU , per Omar. Report given to SELIN Urbina and JOSH Deleon. Belongings and medications given. Family and or S/O informed of transfer.
--- NOTE | 2020-08-25 13:45 | NUR ---
RADIOLOGY DEPT., CHEST X-RAY PERFORMED BEFORE TRANSFER TO [facility].MADHAVI
--- NOTE | 2020-08-25 13:50 | NUR ---
NURSE NOTES: Received report from SELIN Joseph. Patient SR with HR 70-80s. Endorsed patient Desat, ABG ordered, per Dr. Devlin, need to transfer to SDU and change trach with RT. Vital sign taken, BP low 70-80s. IVF continued NS @ 125. PICC line with double lumen on left upper arm patent, intact. GT site patent, intact. 50ml of residual checked, holding GT feeding at this time due to low blood pressure. Patient trach to vent, AC 20 TV 500 Fio2 100%. Will follow up with MD and RT. Bed in lowest position, side rails upx3, call light within reach, bed alarm on ,Will continue to monitor.
--- NOTE | 2020-08-25 14:10 | NUR ---
NURSE NOTES: RT at the beside, per MD change trach tube. Trach tube changed to Shiley 4 Fio2 100% at this time, will follow up with ABG and MD.
--- NOTE | 2020-08-25 14:10 | Diagnostic Imaging Report ---
Indication: Shortness of breath Technique: One view of the chest Comparison: 08/18/2020 Findings: Interim marked increase in left pleural effusion, now occupying most of the left hemithorax. There is some interstitial and streaky airspace consolidation in the right lung, possibly slightly increased although this could be an artifact of rotation. Previously demonstrated right arm PICC is no longer evident. There is now a left arm PICC in place. Stable satisfactory tracheostomy position. Left chest ventriculoperitoneal shunt tubing is again demonstrated. Impression: Markedly increased and now massive left pleural effusion Possibly increased right lung infiltrates
--- NOTE | 2020-08-25 15:02 | NUR ---
NURSE NOTES: Patient hemodynamically unstable at this time for wound care, will change wound dressing with wound care nurse tomorrow, will continue to follow up.
--- NOTE | 2020-08-25 15:12 | NUR ---
NURSE NOTES: Dr. Mak made aware patient hypotensive 80s, HR 75. Per MD 250ml bolus. Order noted, entered, carried out. Will continue to monitor.
[2020-08-25] MEDS ORDERED: NS 250 ML IVPB ONE (15:15)
--- NOTE | 2020-08-25 15:25 | NUR ---
NURSE NOTES: Dr. Devlin made aware of ABG result, trach tube changed to Shiley 4 Fio2 60%. No new order received at this time, Will continue to monitor.
--- NOTE | 2020-08-25 15:45 | NUR ---
NURSE NOTES: Per Dr. Devlin, change vent setting AC 24, ABG in am, order noted, entered, carried out.
--- NOTE | 2020-08-25 16:26 | NUR ---
NURSE NOTES: Paged Dr. Mak , after 250ml bolus, Blood pressure rechecked, 79/43, HR 79 , no new order received at this time, Will continue to monitor.
--- NOTE | 2020-08-25 16:55 | NUR ---
NURSE NOTES: Per Dr. Devlin, Albumin 25% 100ml, order noted, entered, carried out.
--- NOTE | 2020-08-25 17:59 | Surgery Progress Note ---
Surgery Progress Note Subjective Additional Comments declining no n/v labs noted worsening dimitrios HR noted anemia h/h drop Objective Last 24 Hour Vital Signs Date Time Temp Pulse Resp B/P (MAP) Pulse Ox O2 Delivery O2 Flow Rate FiO2 08/25/20 16:46 99.0 08/25/20 16:00 Mechanical Ventilator 08/25/20 16:00 99.2 85 24 79/43 (55) 100 08/25/20 16:00 60 08/25/20 15:30 100 08/25/20 15:30 83/45 (58) 08/25/20 15:05 60 08/25/20 13:43 99 Mechanical Ventilator 100 08/25/20 13:43 87 21 100 08/25/20 13:43 87 21 99 Mechanical Ventilator 100 08/25/20 12:30 99.2 08/25/20 12:11 91 08/25/20 12:00 100.2 98 20 111/67 (82) 94 08/25/20 12:00 91 08/25/20 09:00 Trach Collar 10.0 08/25/20 08:45 90 98/53 08/25/20 08:00 98.3 95 20 98/53 (68) 92 08/25/20 08:00 95 08/25/20 07:15 93 16 93 T-Piece 12.0 50 08/25/20 07:15 93 T-Piece 12.0 50 08/25/20 04:00 98.6 95 18 100/49 (66) 92 08/25/20 04:00 96 08/25/20 01:53 94 T-Piece 10.0 35 08/25/20 00:00 98.9 101 16 105/53 (70) 92 08/25/20 00:00 97 08/24/20 21:00 Trach Collar 10.0 08/24/20 21:00 93 95/52 08/24/20 20:00 97.9 93 16 95/52 (66) 96 08/24/20 20:00 93 08/24/20 18:46 87 16 93 T-Piece 12.0 50 08/24/20 18:46 93 T-Piece 12.0 50 I&O Intake and Output 08/24/20 08/25/20 19:00 07:00 Intake Total 230 ml 760 ml Output Total 300 ml 800 ml Balance -70 ml -40 ml Intake Free Water 100 ml 100 ml Tube Feeding 130 ml 660 ml Output Urine Total 300 ml 800 ml # Bowel Movements 1 Dressing: saturated Cardiovascular: RSR Respiratory: decreased breath sounds Abdomen: soft, non-tender, present bowel sounds Extremities: other Laboratory Tests Test 08/24/20 19:00 08/25/20 06:30 08/25/20 11:51 08/25/20 14:53 White Blood Count 9.5 K/UL (4.8-10.8) 8.4 K/UL (4.8-10.8) Red Blood Count 2.26 M/UL (4.70-6.10) L 3.42 M/UL (4.70-6.10) L Hemoglobin 6.3 G/DL (14.2-18.0) *L 9.2 G/DL (14.2-18.0) #L Hematocrit 20.0 % (42.0-52.0) L 30.2 % (42.0-52.0) #L Mean Corpuscular Volume 88 FL (80-99) 88 FL (80-99) Mean Corpuscular Hemoglobin 28.0 PG (27.0-31.0) 27.0 PG (27.0-31.0) Mean Corpuscular Hemoglobin Concent 31.8 G/DL (32.0-36.0) L 30.6 G/DL (32.0-36.0) L Red Cell Distribution Width 16.0 % (11.6-14.8) H 16.6 % (11.6-14.8) H Platelet Count 303 K/UL (150-450) 309 K/UL (150-450) Mean Platelet Volume 6.2 FL (6.5-10.1) L 5.9 FL (6.5-10.1) L Neutrophils (%) (Auto) 70.4 % (45.0-75.0) 75.5 % (45.0-75.0) H Lymphocytes (%) (Auto) 16.6 % (20.0-45.0) L 13.4 % (20.0-45.0) L Monocytes (%) (Auto) 6.5 % (1.0-10.0) 6.6 % (1.0-10.0) Eosinophils (%) (Auto) 4.7 % (0.0-3.0) H 4.2 % (0.0-3.0) H Basophils (%) (Auto) 0.6 % (0.0-2.0) 0.3 % (0.0-2.0) Sodium Level 137 MMOL/L (136-145) Potassium Level 5.1 MMOL/L (3.5-5.1) Chloride Level 107 MMOL/L (98-107) Carbon Dioxide Level 20 MMOL/L (21-32) L Anion Gap 10 mmol/L (5-15) Blood Urea Nitrogen 64 mg/dL (7-18) H Creatinine 1.7 MG/DL (0.55-1.30) H Estimat Glomerular Filtration Rate 40.3 mL/min (>60) Glucose Level 126 MG/DL (74-106) H Calcium Level 8.3 MG/DL (8.5-10.1) L Magnesium Level 2.0 MG/DL (1.8-2.4) Total Bilirubin 0.8 MG/DL (0.2-1.0) Aspartate Amino Transf (AST/SGOT) 40 U/L (15-37) H Alanine Aminotransferase (ALT/SGPT) 56 U/L (12-78) Alkaline Phosphatase 158 U/L (46-116) H Total Protein 5.5 G/DL (6.4-8.2) L Albumin 0.8 G/DL (3.4-5.0) L Globulin 4.7 g/dL Albumin/Globulin Ratio 0.2 (1.0-2.7) L Arterial Blood pH 7.235 (7.350-7.450) 7.293 (7.350-7.450) Arterial Blood Partial Pressure CO2 51.2 mmHg (35.0-45.0) H 42.7 mmHg (35.0-45.0) Arterial Blood Partial Pressure O2 53.9 mmHg (75.0-100.0) L 329.9 mmHg (75.0-100.0) H Arterial Blood HCO3 21.2 mmol/L (22.0-26.0) L 20.2 mmol/L (22.0-26.0) L Arterial Blood Oxygen Saturation 85.9 % (95-100) *L 99.3 % (95-100) Arterial Blood Base Excess -6.2 (-2-2) L -5.9 (-2-2) L Conner Test Positive Positive Plan Problems: (1) Decubitus skin ulcer Assessment & Plan: Pt was discharged 08/15/20 and readmitted same day. Pt presented with CIVIL ESTIMATOR Shunt,Tracheostomy , GT and Multiple Pressure Injuries and contractures. Small amt exudate that is of Sanguineous mixed with Formula noted from GT. Mild excoriation noted to Peristomal GT site. Full Thickness Sacral Pressure Injury (L)10.5cm x (W)8.3cm x (D)1.5cm, Undermining clockwise 9-2 by 1.3cm @10'oclock. Base of wound is 90% granular 10% necrotic. NO odor noted. Small amt serosanguineous exudate noted.Periwound is erythematous and indurated. No changes in skin temp noted. Full Thickness Pressure Injury Outer L Lower Quadrant of Buttocks.(L)5.5cm x (W)7cm x (D)1.5cm, Undermining clockwise 9-3 by 4.5cm @12o'clock, Tunneled area within base of wound by 5.5cm @ 1-2o'clock. Base of wound is 85% % moist and pink ,15% necrotic at base at undermined area of wound. Bone exposure noted. Small amt serosanguineous exudate noted. Periwound is erythematous and indurated. No odor noted. Full thickness Pressure Injury L Ischium(L)2cm x (W)0.9cm x (D)0.3cm. Base of wound is moist, and pink. Edges are adherent to base of wound. Periwound is maroon and indurated. NO changes in skin temp periwound. NO odor noted. Non-Blanchable erythema without induration noted to R Hip /R trochanteric.. Full Thickness Pressure Injury lateral L Tibia(L)21.5cm x (W)3.5cm x (D)0.2cm. Base of wound is 95% granular,5% necrosis along borders. Edges are adherent to base of wound . Moderate amt sanguineous exudate noted. No odor noted.Periwound skin colour is darker than is normal tone but without erythema or induration. Full thickness Pressure Injury L Heel extending into Plantar aspect of heel(L)8.7cm x (W)6.5cm x(D)0.6cm.Base of wound is 60% beefy granulation,40% necrotic. Bone is palpable. (+) Epibole at proximal borders of wound in close proximity with achilles. Small amt haemopurulent exudate noted. Wound is malodorous. Periwound is dusky and indurated. Full Thickness Pressure Injury Lateral L Foot (L)1.9cm x (W)3.4cm x (D)0.3cm, undermining clockwise 9-3 by 0.2cm @9o'clock. Base of wound is 10% necrotic 90% antonio. Wound is malodorous. Edges are macerate with scattered areas of necrosis along edges. Small amt haemopurulent exudate noted.Periwound is fluctuant and dusky. Full Thickness Pressure Injury distal/lateral L foot(L)1.3cm x (W)3.7cm x (D)0.2cm. Base of wound is 80% soft necrosis,20% moist and pink. edges are macerated. Wound is malodorous. Small amt brown exudate noted . Periwound is dusky and fluctuant. Unstageable Pressure injury dorsal L foot (L)1cm x (W)0.9cm. Base of wound is 100% necrotic. Edges are erythematous and macerated. Periwound without erythema,induration or fluctuance. Full thickness Pressure Injury R Heel including plantar aspect of heel (L)8.7cm x (W)6.5cm x (D)0.6cm. Base of wound is 60% beefy granulation,40% necrotic. Bone exposure at base of wound. Moderate amt haemopurulent exudate. Wound is malodorous. Proximal edges of wound within close proximity with achilles is rolled. Edges are otherwise macerated. Periwound is fluctuant and dusky. Full Thickness Pressure Injury distal/lateral R foot (L)0.5cm x (W)0.6cm. Base of wound is 100% fibrinous slough. Erythematous borders. Periwound without induration or fluctuance. Small amt serous exudate noted. Tx.Plan: Wash GT site with Soap and Water. Pat dry. Apply Moisture Barrier Paste around Gt Daily. Leave open to Air. Cleanse Sacral wound, L buttocks, and L Ischia wounds with Dakin's 0.25% Kristel. Loosely pack wounds with Dakin's moistened Kerlix.Apply Triad Paste periwound. Cover with Optifoam drsgs Daily and prn. Cleanse wound Lateral L Tibia with Dakin's o.25% Kristel. Rinse with Saline. Apply Promogran moistened with Saline. Apply Moisture Barrier Paste along borders. Cover with ABD Pads. Wrap with Kerlix every Mon-Wed-Fri (NOTE: Wound Nurse to Aplpy Promogran) Cleanse wounds L Foot with Dakin's 0.25% Kristel. Apply Dakin's moistened Gauze to each wound. Apply Triad Paste along Borders of each wound. Cover with ABD Pads and wrap with Kerlix Daily and prn. Cleanse R Heel wound with Dakin's 0.25% Kristel. Apply Dakin's Mo istened Gauze to wound. Apply Triad Paste Periwound. Cover with ABD Pad. Wrap with Kerlix Daily and prn. Reposition at least every 2hours or as tolerated. Place Pillow Between Knees. Off-load heels with 2 Pillows. APM/TERRIE Mattress overlay. Sacral wound,L Buttocks, L Ischial wounds cleansed with Dakin's and each wound loosely packed with Dakin's moistened Kerlix.Moisture Barrier Paste applied to borders of each wound and each wound covered with Optifoam drsgs. Perianal area noted to be red and excoriated. Moisture Barrier Paste applied to affected area. Drsgs to L tibia, L Heel and R Heel noted to be saturated and malodorous. Both lower ext washed with Chlorhexidine soap prior to providing wound care.Base of wound lateral L Tibia beefy red. Edges are adherent with an area of 5% necrosis distally. Small amt sanguineous exudate No erythema or changes in skin temp periwound. Wound Later L Tibia cleansed with Saline. Promogran applied to base of wound.Moisture Barrier Paste applied along borders. Covered with ABD pad. Wrapped with Kerlix. R and L Heel wounds cleansed Dakin's 0.25% kristel. Dakin's moistened gauze applied to each wound Moisture Barrier Paste applied to borders of each wound and each wound covered with Abd Pads and each heel wrapped with Kerlix drsgs. Skin under tracheal collar assessed and no evidence of skin breakdown noted. Peristomal Gt site is resolving, Skin is moist but pink.No new skin concerns noted. (2) Anemia Assessment & Plan: trend h/h prbc prn (3) UTI (urinary tract infection) (4) Pleural effusion, left Assessment & Plan: Ultrasound used to localize optimal puncture site. Sterile prepping and draping left chest. Local anesthesia with 1% lidocaine. Under real-time ultrasound guidance, puncture pleural space using thoracentesis needle. Stylet removed. Catheter placed to vacuum bottle suction. Total 1700 milliliters of fluid aspirated. Jocelyn ent tolerated procedure well, without immediate complication. Findings: Followup sonography demonstrates small amount of residual pleural fluid. Impression: Successful ultrasound-guided thoracentesis, yielding 1700 milliliters of fluid Lungs: Hazy left lung attenuation could be due to consolidation, pulmonary edema; correlate with presentation. Retrocardiac atelectasis without or with consolidation. Pleural space: Small-moderate left pleural effusion with passive atelectasis. No pneumothorax. Heart: Unremarkable. No cardiomegaly. Mediastinum: Unremarkable. Bones/joints: No acute abnormality Tubes, lines and devices: Tracheostomy. Right upper extremity PICC tip in the mid SVC. IMPRESSION: 1. Tracheostomy. 2. Right upper extremity PICC tip in the mid SVC. 3. Small-moderate left pleural effusion with passive atelectasis. 4. Hazy left lung attenuation could be due to consolidation, pulmonary edema; correlate with presentation. 5. Retrocardiac atelectasis without or with consolidation. 6. Recommend CT chest with IV contrast to further characterize these findings. plan repeat thora (5) Malfunction of gastrostomy tube Assessment & Plan: DAILY ESTIMATED NEEDS: Needs based on Wounds, pulmonary/ 74.5kg 25-30 kcals/kg 4333-5850 total kcals 1.5-2 g protein/kg 111-149 g total protein 25-30 mL/kg 7905-4312 total fluid mLs NUTRITION DIAGNOSIS: * Swallowing difficulty R/T dysphagia, h/o craniotomy, respiratory failure as evidenced by pt on T-collar, GJ tube dependent. * Increased kcal/prot/micronutrients needs R/T wound healing as evidenced by pt admitted w/ multiple advanced wounds including full thickness wound x 7 and unstageable wounds x 2, refer to eval. CURRENT TF:Vital AF 1.2 @70ml/hr ENTERAL NUTRITION RECOMMENDATIONS: Vital AF 1.2 @ 65ml/hr x 24 hrs to provide 1560ml, 1872kcal, 117g prot, 1265ml free water * Lower goal rate to 65ml/hr x 24 hrs: meets 100% est kcal/prot needs * HOB over 30 degrees/ water flush 180ml q 6hrs without IVF ------ elemental TF formula of Vital AF not indicated, consider changing TF to Glucerna 1.2 @ 65ml/hr x 24 hrs + Prosource 1pkt TID to provide 1560ml, 1872kcal, 94g+ 33g prot, 1259ml free water ADDITIONAL RECOMMENDATIONS: * Calibrated bedscale wt * Wound Care: Con't Vit C 500mg BID, ZnSO4 220mg QD x 10 days add Stevie BID * Monitor lytes, replete as needed * DC D5 for improved BG control increase H2O flushes instead (Na now wnl, BUN elev) * Rec NISS (6) Acute respiratory failure with hypoxia (7) HCAP (healthcare-associated pneumonia) Deny Westfall Aug 25, 2020 17:59
--- NOTE | 2020-08-25 19:23 | NUR ---
NURSE NOTES: Received report from Ciara SMALLWOOD. Patient in bed in trendelenburg position per Rn pt blood pressure been in low side during am shift, Dr Devlin and Dr cui are aware. Checked vital signs during initial assessment, bp of 80/34 AL 82 bpm, Spo2 100 % RR 29, Temp 97.3. Pt open eyes but no tracking. On trac to vent with setting of AC #20, TV 500, Peep 5 and FIO2 60% tolerating and saturating well @100%.On tube feeding Vital AF at 70 cc/hr but stopped per RN. Gt is intact, patent and flushed well, noted of 20 cc residual. Patient has [place] cath 16 Fr,draining color yellow cloudy urine via gravity. PICC line in left upper arm,intact, patent and flushed well, dressing is clean dry and intact, running NS @ 125cc/hr, no signs of infiltration. Safety measures in place, call light is within reach, bed is lowered, locked, alarm is on, will continue to monitor for comfort and safety. Addendum: 08/25/20 at 1953 by Mehnaz Rodriguez RN NURSE NOTES: correction ; AC 24
--- NOTE | 2020-08-25 19:31 | NUR ---
NURSE HAND-OFF REPORT: Important Events on Shift: Hypotensive, aware. trach tube changed Shiley 4, Trach to vent Fio2 60% Patient Status: guarded Diet: Vital AF on hold at this time Pending Orders: na Pending Results/Labs:na Pending MD notification:na Latest Vital Signs: Temperature 97.0 , Pulse 85 , B/P 88 /45 , Respiratory Rate 24 , O2 SAT 100 , Trach Collar, O2 Flow Rate 10.0 . Vital Sign Comment: hypotensive EKG Rhythm: Sinus Rhythm Rhythm change?: Nadine VALDEZ Notified?: Nadine Mak and Quita VALDEZ Response: Message left await call Latest Ramirez Fall Score: 70 Fall Risk: High Risk Safety Measures: Call light Within Reach, Bed Alarm Zone 1, Side Rails Side Rails x3, Bed position Low and Locked. Fall Precautions: Yellow Socks Patient Fall Education Report given to SELIN Wang.
[2020-08-25] MEDS: Atorvastatin 20mg tab ORAL SCH (20:19)
[2020-08-25] MEDS: Dyna-Hex 2% Top Sol 2oz TOPIC SCH (20:19)
[2020-08-25] MEDS ORDERED: Epoetin Alfa-EPBX (NON ESRD)10,000 unit/ml vial SUBQ SCH (21:00)
--- NOTE | 2020-08-25 21:06 | NUR ---
NURSE NOTES: called the office of Dr Mak and left a message regarding the blood pressure of the patient that is still on the low side. Recent bp is 96/54. Awaiting call back.
[2020-08-25] MEDS: Epoetin Alfa-EPBX (NON ESRD) 2000 units/ml vial SUBQ SCH (21:41)
[2020-08-25] MEDS: Epoetin Alfa-EPBX (NON ESRD) 3000 units/ml vial SUBQ SCH (21:41)
--- NOTE | 2020-08-25 22:28 | General Progress Note ---
Subjective Allergies: Coded Allergies: No Known Allergies (Unverified , 11/02/19) Subjective seen earlier today doing poorly periods of Hypotension today Objective Last 24 Hour Vital Signs Date Time Temp Pulse Resp B/P (MAP) Pulse Ox O2 Delivery O2 Flow Rate FiO2 08/25/20 20:23 86 96/54 08/25/20 20:00 Mechanical Ventilator 08/25/20 20:00 60 08/25/20 20:00 97.5 82 27 96/54 (68) 100 08/25/20 19:10 88 24 60 08/25/20 19:10 93 24 98 Mechanical Ventilator 60 08/25/20 18:00 97.0 88/45 (59) 08/25/20 16:46 99.0 08/25/20 16:00 Mechanical Ventilator 08/25/20 16:00 99.2 85 24 79/43 (55) 100 08/25/20 16:00 60 08/25/20 15:30 100 08/25/20 15:30 83/45 (58) 08/25/20 15:05 81 24 60 08/25/20 15:05 60 08/25/20 13:43 99 Mechanical Ventilator 100 08/25/20 13:43 87 21 100 08/25/20 13:43 87 21 99 Mechanical Ventilator 100 08/25/20 12:30 99.2 08/25/20 12:11 91 08/25/20 12:00 100.2 98 20 111/67 (82) 94 08/25/20 12:00 91 08/25/20 09:00 Trach Collar 10.0 08/25/20 08:45 90 98/53 08/25/20 08:00 98.3 95 20 98/53 (68) 92 08/25/20 08:00 95 08/25/20 07:15 93 16 93 T-Piece 12.0 50 08/25/20 07:15 93 T-Piece 12.0 50 08/25/20 04:00 98.6 95 18 100/49 (66) 92 08/25/20 04:00 96 08/25/20 01:53 94 T-Piece 10.0 35 08/25/20 00:00 98.9 101 16 105/53 (70) 92 08/25/20 00:00 97 Intake and Output 08/24/20 08/25/20 19:00 07:00 Intake Total 230 ml 760 ml Output Total 300 ml 800 ml Balance -70 ml -40 ml Intake Free Water 100 ml 100 ml Tube Feeding 130 ml 660 ml Output Urine Total 300 ml 800 ml # Bowel Movements 1 Laboratory Tests 08/25/20 06:30: White Blood Count 8.4, Red Blood Count 3.42L, Hemoglobin 9.2#L, Hematocrit 30.2#L, Mean Corpuscular Volume 88, Mean Corpuscular Hemoglobin 27.0, Mean Corpuscular Hemoglobin Concent 30.6L, Red Cell Distribution Width 16.6H, Platelet Count 309, Mean Platelet Volume 5.9L, Neutrophils (%) (Auto) 75.5H, Lymphocytes (%) (Auto) 13.4L, Monocytes (%) (Auto) 6.6, Eosinophils (%) (Auto) 4.2H, Basophils (%) (Auto) 0.3, Sodium Level 137, Potassium Level 5.1, Chloride Level 107, Carbon Dioxide Level 20L, Anion Gap 10, Blood Urea Nitrogen 64H, Creatinine 1.7H, Estimat Glomerular Filtration Rate 40.3, Glucose Level 126H, Calcium Level 8.3L, Magnesium Level 2.0, Total Bilirubin 0.8, Aspartate Amino Transf (AST/SGOT) 40H, Alanine Aminotransferase (ALT/SGPT) 56, Alkaline Phosphatase 158H, Total Protein 5.5L, Albumin 0.8L, Globulin 4.7, Albumin/Globulin Ratio 0.2L 08/25/20 11:51: Arterial Blood pH 7.235*L, Arterial Blood Partial Pressure CO2 51.2H, Arterial Blood Partial Pressure O2 53.9L, Arterial Blood HCO3 21.2L, Arterial Blood Oxygen Saturation 85.9*L, Arterial Blood Base Excess -6.2L, Conner Test Positive 08/25/20 14:53: Arterial Blood pH 7.293L, Arterial Blood Partial Pressure CO2 42.7, Arterial Blood Partial Pressure O2 329.9H, Arterial Blood HCO3 20.2L, Arterial Blood Oxygen Saturation 99.3, Arterial Blood Base Excess -5.9L, Conner Test Positive Height (Feet): 5 Height (Inches): 4.00 Weight (Pounds): 171 Objective Eldely WM NCAT (+) trach , T tube Coarse BS RRR abd soft (+) GT ext no edema Assessment/Plan Status: stable, progressing Assessment/Plan: Assessment - Abnormal LFT - improved - UGIB - resolved - Anemia, s/p transfusion - hypotension - h/o PUD - resp failure, s/p trach - dysphagia, s/p PEG - atrial fibrillation - h/o DVT - hypernatremia - loose BM - decubitus ulcers - poor prognosis Recommendations - follow LFT - anticoagulation - H2B BID indefinitely - vital AF 1.2 at 70 - protein supplements - TID - MVI - Vitamin C - free water - follow H&H - monitor Akiko Yu MD Aug 25, 2020 22:28
[2020-08-26] VITALS: BP 105/36
--- NOTE | 2020-08-26 00:56 | NUR ---
NURSE NOTES: called and left a message to Dr Devlin regarding pt blood pressure is still on the low side. Latest bp is 105/36. Awaiting call back.
--- NOTE | 2020-08-26 01:13 | NUR ---
NURSE NOTES: Pt had a moderate bowl movement. Bed bath with chg given, sacral dressing change. Bed linens and gown change. Will cleaning noted that the patient's left side of the body is was twitching . Called the office of Dr Devlin and left a message that the pt might having a seizure.
[2020-08-26] MEDS ORDERED: LORazepam Inj 2mg/ml 1ml IV PRN ×2 (01:15→01:30)
[2020-08-26] MEDS: Sodium Chloride 550 ML IV SCH ×6 (01:18→23:41)
[2020-08-26] MEDS ORDERED: LORazepam Inj 2mg/ml 1ml ONE (01:19)
--- NOTE | 2020-08-26 01:25 | NUR ---
NURSE NOTES: Rn sound technician supervisor called Dr Devlin's phone number and spoke with him regarding the pt having a sustained seizure and ordered to give ativan 1mg qhourly prn seizure. Ordered noted and will carry out.
--- NOTE | 2020-08-26 01:39 | NUR ---
NURSE NOTES: Ativan 1 mg given. Will continue to monitor pt.
--- NOTE | 2020-08-26 02:15 | NUR ---
NURSE NOTES: Pt in bed, asleep. In no apparent respiratory distress noted. Sinus Tachycardia on monitoring manager. No seizure activity noted.
[2020-08-26 04:00] VITALS: BP 107/55
[2020-08-26] MEDS: Metoclopramide 10mg/2ml Inj IVP SCH ×4 (04:39→21:09)
[2020-08-26 05:37] LABS: HEMATOCRIT 24.8 % (42.0-52.0); HEMOGLOBIN 7.9 G/DL (14.2-18.0); MEAN CORPUSCULAR VOLUME 88 FL (80-99); PLATELET COUNT 263 K/UL (150-450); RED BLOOD COUNT 2.82 M/UL (4.70-6.10); RED CELL DISTRIBUTION WIDTH 17.3 % (11.6-14.8)
[2020-08-26 06:00] LABS: ALANINE AMINOTRANSFERASE 50 U/L (12-78); ALBUMIN 1.1 G/DL (3.4-5.0); ALBUMIN/GLOBULIN RATIO 0.2 (1.0-2.7); ALKALINE PHOSPHATASE 145 U/L (46-116); AMYLASE 29 U/L (25-115); ANION GAP 12 mmol/L (5-15); ASPARTATE AMINO TRANSFERASE 46 U/L (15-37); BLOOD UREA NITROGEN 68 mg/dL (7-18); CALCIUM 8.4 MG/DL (8.5-10.1); CARBON DIOXIDE 20 MMOL/L (21-32); CHLORIDE 106 MMOL/L (98-107); CREATININE 1.8 MG/DL (0.55-1.30); POTASSIUM 5.1 MMOL/L (3.5-5.1); SODIUM 138 MMOL/L (136-145)
--- NOTE | 2020-08-26 07:18 | NUR ---
NURSE HAND-OFF REPORT: Important Events on Shift: Pt had 1x seizure, ativan 1 mg x1. Patient Status: Fair Diet: Vital af Pending Orders: Pending Results/Labs: Pending MD notification: Latest Vital Signs: Temperature 98.1 , Pulse 105 , B/P 107 /55 , Respiratory Rate 29 , O2 SAT 96 , Trach Collar, O2 Flow Rate 10.0 . Vital Sign Comment: EKG Rhythm: ST with BBB Rhythm change?: MD Notified?: Nadine Mak and Quita VALDEZ Response: Message left await call Latest Ramirez Fall Score: 70 Fall Risk: High Risk Safety Measures: Call light Within Reach, Bed Alarm Zone 1, Side Rails Side Rails x3, Bed position Low and Locked. Fall Precautions: Yellow Socks Patient Fall Education Report given to SELIN Akbar.
[2020-08-26 08:00] VITALS: BP 114/45
--- NOTE | 2020-08-26 08:35 | General Progress Note ---
Subjective ROS Limited/Unobtainable: Yes Constitutional: Reports: malaise, weakness HEENT: Reports: no symptoms Cardiovascular: Reports: no symptoms Respiratory: Reports: shortness of breath, sputum Gastrointestinal/Abdominal: Reports: difficulty swallowing Genitourinary: Reports: no symptoms Neurologic/Psychiatric: Reports: pre-existing deficit, seizure Endocrine: Reports: no symptoms Hematologic/Lymphatic: Reports: anemia Allergies: Coded Allergies: No Known Allergies (Unverified , 11/02/19) All Systems: reviewed and negative except above Subjective transferred to sdu. now on the vent. + sz yesterday. cxr with massive left sided effusion again. h/h slightly lower. Objective Last 24 Hour Vital Signs Date Time Temp Pulse Resp B/P (MAP) Pulse Ox O2 Delivery O2 Flow Rate FiO2 08/26/20 04:00 98.1 105 29 107/55 (72) 96 08/26/20 04:00 60 08/26/20 04:00 Mechanical Ventilator 08/26/20 03:17 113 08/26/20 03:15 105 24 60 08/26/20 02:09 109 23 116/57 98 08/26/20 01:46 108 08/26/20 01:39 113 27 110/32 96 08/26/20 00:00 60 08/26/20 00:00 Mechanical Ventilator 08/26/20 00:00 97.5 71 24 105/36 (59) 100 08/25/20 23:14 87 08/25/20 23:05 92 27 60 08/25/20 20:23 86 96/54 08/25/20 20:00 Mechanical Ventilator 08/25/20 20:00 60 08/25/20 20:00 97.5 82 27 96/54 (68) 100 08/25/20 19:10 88 24 60 08/25/20 19:10 93 24 98 Mechanical Ventilator 60 08/25/20 19:05 81 08/25/20 18:00 97.0 88/45 (59) 08/25/20 16:46 99.0 08/25/20 16:00 Mechanical Ventilator 08/25/20 16:00 99.2 85 24 79/43 (55) 100 08/25/20 16:00 60 08/25/20 15:30 100 08/25/20 15:30 83/45 (58) 08/25/20 15:05 81 24 60 08/25/20 15:05 60 08/25/20 13:43 99 Mechanical Ventilator 100 08/25/20 13:43 87 21 100 08/25/20 13:43 87 21 99 Mechanical Ventilator 100 08/25/20 12:30 99.2 08/25/20 12:11 91 08/25/20 12:00 100.2 98 20 111/67 (82) 94 08/25/20 12:00 91 08/25/20 09:00 Trach Collar 10.0 08/25/20 08:45 90 98/53 Intake and Output 08/25/20 08/26/20 19:00 07:00 Intake Total 1140 ml 1392 ml Output Total 800 ml Balance 1140 ml 592 ml Intake Free Water 40 ml 120 ml IV Total 1100 ml 1022 ml Tube Feeding 250 ml Output Urine Total 800 ml # Bowel Movements 1 Laboratory Tests 08/25/20 11:51: Arterial Blood pH 7.235*L, Arterial Blood Partial Pressure CO2 51.2H, Arterial Blood Partial Pressure O2 53.9L, Arterial Blood HCO3 21.2L, Arterial Blood Oxygen Saturation 85.9*L, Arterial Blood Base Excess -6.2L, Conner Test Positive 08/25/20 14:53: Arterial Blood pH 7.293L, Arterial Blood Partial Pressure CO2 42.7, Arterial Blood Partial Pressure O2 329.9H, Arterial Blood HCO3 20.2L, Arterial Blood Oxygen Saturation 99.3, Arterial Blood Base Excess -5.9L, Conner Test Positive 08/26/20 03:20: White Blood Count 10.0, Red Blood Count 2.82L, Hemoglobin 7.9L, Hematocrit 24.8L , Mean Corpuscular Volume 88, Mean Corpuscular Hemoglobin 28.1, Mean Corpuscular Hemoglobin Concent 31.9L, Red Cell Distribution Width 17.3H, Platelet Count 263, Mean Platelet Volume 5.7L, Neutrophils (%) (Auto) , Lymphocytes (%) (Auto) , Monocytes (%) (Auto) , Eosinophils (%) (Auto) , Basophils (%) (Auto) , Erythro cyte Sedimentation Rate 127H, Sodium Level 138, Potassium Level 5.1, Chloride Level 106, Carbon Dioxide Level 20L, Anion Gap 12, Blood Urea Nitrogen 68H, Creatinine 1.8H, Estimat Glomerular Filtration Rate 37.7, Glucose Level 69L, Lactic Acid Level 0.80, Calcium Level 8.4L, Total Bilirubin 1.0, Aspartate Amino Transf (AST/SGOT) 46H, Alanine Aminotransferase (ALT/SGPT) 50, Alkaline Phosphatase 145H, C-Reactive Protein, Quantitative > 70.0H, Total Protein 6.0L, Albumin 1.1L, Globulin 4.9, Albumin/Globulin Ratio 0.2L, Amylase Level 29, Lipase 88 Height (Feet): 5 Height (Inches): 4.00 Weight (Pounds): 171 Objective General Appearance: WD/WN, confused EENT: normal ENT inspection. on the vent Neck: normal alignment Cardiovascular: normal rate, regular rhythm Respiratory/Chest: rhonchi - bilaterally Abdomen: normal bowel sounds, non tender, soft, no organomegaly Edema: no edema noted Leg (L), no edema noted Leg (R) Neurologic: disoriented, aphasia Skin: normal pigmentation Assessment/Plan Problem List: (1) Anemia ICD Codes: D64.9 - Anemia, unspecified SNOMED: 320463112, 291105698 Qualifiers: Qualified Codes: D50.0 - Iron deficiency anemia secondary to blood loss (chronic) (2) Pleural effusion, left ICD Codes: J90 - Pleural effusion, not elsewhere classified SNOMED: 08049148, 920369769 (3) Malfunction of gastrostomy tube ICD Codes: K94.23 - Gastrostomy malfunction SNOMED: 913910179 (4) Acute respiratory failure with hypoxia ICD Codes: J96.01 - Acute respiratory failure with hypoxia SNOMED: 99911091, 892430036 (5) HCAP (healthcare-associated pneumonia) ICD Codes: J18.9 - Pneumonia, unspecified organism SNOMED: 072651881, 766457630 Status: stable, progressing Assessment/Plan: iv abx per id follow up cultures trach care resp rx/suctioning as needed vent per pulm ?tap effusion tube feeds monitor residuals sz rx bp rx monitor h/h transfuse as needed epogen iron rx repeat cxr wound care monitor labs Angel Jaramillo MD Aug 26, 2020 08:35
--- NOTE | 2020-08-26 08:49 | NUR ---
NURSE NOTES: Patient's FiO2 titrated down to 50% by RT. Will continue to monitor
--- NOTE | 2020-08-26 08:54 | Pulmonology Progress Note ---
Subjective ROS Limited/Unobtainable: Yes Gastrointestinal/Abdominal: Reports: diarrhea, other - X 1 Allergies: Coded Allergies: No Known Allergies (Unverified , 11/02/19) All Systems: reviewed and negative except above Subjective CARE NOTED nonverbal hypoxemic and acidotic hypotensive Objective Last 24 Hour Vital Signs Date Time Temp Pulse Resp B/P (MAP) Pulse Ox O2 Delivery O2 Flow Rate FiO2 08/26/20 04:00 98.1 105 29 107/55 (72) 96 08/26/20 04:00 60 08/26/20 04:00 Mechanical Ventilator 08/26/20 03:17 113 08/26/20 03:15 105 24 60 08/26/20 02:09 109 23 116/57 98 08/26/20 01:46 108 08/26/20 01:39 113 27 110/32 96 08/26/20 00:00 60 08/26/20 00:00 Mechanical Ventilator 08/26/20 00:00 97.5 71 24 105/36 (59) 100 08/25/20 23:14 87 08/25/20 23:05 92 27 60 08/25/20 20:23 86 96/54 08/25/20 20:00 Mechanical Ventilator 08/25/20 20:00 60 08/25/20 20:00 97.5 82 27 96/54 (68) 100 08/25/20 19:10 88 24 60 08/25/20 19:10 93 24 98 Mechanical Ventilator 60 08/25/20 19:05 81 08/25/20 18:00 97.0 88/45 (59) 08/25/20 16:46 99.0 08/25/20 16:00 Mechanical Ventilator 08/25/20 16:00 99.2 85 24 79/43 (55) 100 08/25/20 16:00 60 08/25/20 15:30 100 08/25/20 15:30 83/45 (58) 08/25/20 15:05 81 24 60 08/25/20 15:05 60 08/25/20 13:43 99 Mechanical Ventilator 100 08/25/20 13:43 87 21 100 08/25/20 13:43 87 21 99 Mechanical Ventilator 100 08/25/20 12:30 99.2 08/25/20 12:11 91 08/25/20 12:00 100.2 98 20 111/67 (82) 94 08/25/20 12:00 91 08/25/20 09:00 Trach Collar 10.0 Intake and Output0 08/25/20 08/26/20 19:00 07:00 Intake Total 1140 ml 1392 ml Output Total 800 ml Balance 1140 ml 592 ml Intake Free Water 40 ml 120 ml IV Total 1100 ml 1022 ml Tube Feeding 250 ml Output Urine Total 800 ml # Bowel Movements 1 Objective WDWN NAD awake chronically ill moderate breath sounds bilaterally without rhonchi [id number] NABS nontender GT no CCE nonfocal weak wounds noted Laboratory Tests 08/25/20 11:51: Arterial Blood pH 7.235*L, Arterial Blood Partial Pressure CO2 51.2H, Arterial Blood Partial Pressure O2 53.9L, Arterial Blood HCO3 21.2L, Arterial Blood Oxygen Saturation 85.9*L, Arterial Blood Base Excess -6.2L, Conner Test Positive 08/25/20 14:53: Arterial Blood pH 7.293L, Arterial Blood Partial Pressure CO2 42.7, Arterial Blood Partial Pressure O2 329.9H, Arterial Blood HCO3 20.2L, Arterial Blood Oxygen Saturation 99.3, Arterial Blood Base Excess -5.9L, Conner Test Positive 08/26/20 03:20: White Blood Count 10.0, Red Blood Count 2.82L, Hemoglobin 7.9L, Hematocrit 24.8L , Mean Corpuscular Volume 88, Mean Corpuscular Hemoglobin 28.1, Mean Corpuscular Hemoglobin Concent 31.9L, Red Cell Distribution Width 17.3H, Platelet Count 263, Mean Platelet Volume 5.7L, Neutrophils (%) (Auto) , Lymphocytes (%) (Auto) , Monocytes (%) (Auto) , Eosinophils (%) (Auto) , Basophils (%) (Auto) , Erythrocyte Sedimentation Rate 127H, Sodium Level 138, Potassium Level 5.1, Chloride Level 106, Carbon Dioxide Level 20L, Anion Gap 12, Blood Urea Nitrogen 68H, Creatinine 1.8H, Estimat Glomerular Filtration Rate 37.7, Glucose Level 69L , Lactic Acid Level 0.80, Calcium Level 8.4L, Total Bilirubin 1.0, Aspartate Amino Transf (AST/SGOT) 46H, Alanine Aminotransferase (ALT/SGPT) 50, Alkaline Phosphatase 145H, C-Reactive Protein, Quantitative > 70.0H, Total Protein 6.0L, Albumin 1.1L, Globulin 4.9, Albumin/Globulin Ratio 0.2L, Amylase Level 29, Lipase 88 08/26/20 08:31: Arterial Blood pH 7.335L, Arterial Blood Partial Pressure CO2 33.6L, Arterial Blood Partial Pressure O2 152.5H, Arterial Blood HCO3 17.5*L, Arterial Blood Oxygen Saturation 98.5, Arterial Blood Base Excess -7.6L, Conner Test Positive Current Medications Medications (Trade) Dose Ordered Sig/Clive Route PRN Reason Start Time Stop Time Status Last Admin Dose Admin Acetaminophen (Tylenol) 650 mg Q4H PRN GT Temp >100.5 08/18/20 21:15 09/17/20 21:14 08/25/20 16:16 Amiodarone HCl (Cordarone) 200 mg DAILY GT 08/24/20 09:00 10/28/20 17:59 08/25/20 08:31 Ascorbic Acid (Vitamin C) 500 mg DAILY ORAL 08/17/20 16:00 09/16/20 15:59 08/25/20 08:32 Atorvastatin Calcium (Lipitor) 10 mg BEDTIME ORAL 08/05/20 21:00 10/22/20 20:59 08/25/20 20:19 Chlorhexidine Gluconate (Jennifer-Hex 2%) 1 applic DAILY@1999 TOPIC 07/17/20 20:00 10/15/20 19:59 08/25/20 20:19 Colistimethate Sodium (Colistin) 150 mg EVERY 12 HOURS IVP 08/22/20 12:30 08/26/20 21:01 08/25/20 20:40 Epoetin Tino (Epoetin Tino-EPBX(NON ESRD)) 2,000 unit SUBQ 08/25/20 21:00 11/23/20 20:59 08/25/20 21:41 Epoetin Tino (Epoetin Tino-EPBX(NON ESRD)) 3,000 unit SUBQ 08/25/20 21:00 11/23/20 20:59 08/25/20 21:41 Famotidine (Pepcid) 20 mg Q12HR GT 07/16/20 21:00 10/14/20 20:59 08/25/20 20:19 Finasteride (Proscar) 5 mg DAILY ORAL 07/15/20 09:00 10/13/20 08:59 08/25/20 08:32 Hydralazine HCl (Apresoline) 25 mg Q6H PRN GT SBP above 150 07/24/20 23:30 10/22/20 23:29 07/26/20 05:22 Levetiracetam (Keppra) 1,000 mg Q12HR ORAL 08/22/20 09:07 10/06/20 09:06 08/25/20 20:19 Lorazepam (Ativan 2mg/ml 1ml) 1 mg Q1H PRN IV For Seizures 08/26/20 01:30 09/02/20 01:29 08/26/20 01:39 Meropenem 1 gm/ Sodium Chloride 55 ml @ 110 mls/hr Q12HR IVPB 08/25/20 09:00 08/30/20 08:59 08/25/20 21:42 Metoclopramide HCl (Reglan) 5 mg Q6H IVP 08/21/20 22:00 09/20/20 21:59 08/26/20 04:39 Metoprolol Tartrate (Lopressor) 100 mg Q12HR ORAL 08/13/20 09:00 11/11/20 08:59 08/24/20 08:21 Multivitamins (Multivitamins) 1 tab DAILY ORAL 08/17/20 16:00 09/16/20 15:59 08/25/20 08:32 Sodium Hypochlorite (Dakin's Half Strength) 1 applic DAILY TOPIC 08/19/20 16:30 09/18/20 16:29 08/25/20 08:52 Sodium Chloride 550 ml @ 125 mls/hr Q4H24M IV 08/24/20 18:00 09/23/20 17:59 08/26/20 05:37 Assessment/Plan Assessment/Plan Impression: Healthcare-associated pneumonia Acute respiratory failure with hypoxia Tracheostomy status Pleural effusion, left-recurrent s/p tap Decubitus ulcers Urinary tract infection Anemia S/p previous Craniotomy, RCA occlusion, MOLD CLEANER shunt Seizure history GERD, dysphagia s/p GJ tube h/o Hypertension h/o Atrial fibrillation Previous DVT and Pulmonary Embolism, hypernatremia bacteremia acidemia Plan events reviewed on antibiotics bolus fluids pressors as needed ID noted CXR improved monitor HH for change J tube feeds monitor oxygen needs nebs as needed Wound care Cardiology follow up [employer] Medications dc planning on hold orders reviewed and discussed impression, plan, and exam edited and reviewed in detail care discussed with Nikita Arreola MD Aug 26, 2020 08:54
[2020-08-26] MEDS: Meropenem 1 GM in NS 55 ML IVPB SCH ×2 (09:16→21:11)
[2020-08-26] MEDS: Colistin 150mg vial IVP SCH ×2 (09:16→21:09)
[2020-08-26] MEDS: Ascorbic Acid 500mg tab ORAL SCH (09:27)
[2020-08-26] MEDS: Amiodarone 200mg tab GT SCH (09:27)
[2020-08-26] MEDS: Metoprolol Tartrate 100mg tab ORAL SCH ×2 (09:27→21:10)
[2020-08-26] MEDS: Dakin's 0.25% (Half Strength) 16oz TOPIC SCH (09:28)
--- NOTE | 2020-08-26 09:54 | NUR ---
CASE MANAGEMENT:REVIEW 08/26/20 SI: PNA. UTI. BACTEREMIA.PLEURAL EFFUSION 99.0 105 29 114/45 98% ON VENT SUPPORT W/60% FIO2 H/H-7.9/24.8 BUN+68 CR+1.8 PH-7.33 PCO2-33.6 HCO3-17.5 IS: IV MEROPENEM Q12 IVF@125/HR AMIODARONE GT QD IV COLISTIN Q12 KEPPRA GT Q12 IV REGLAN Q6HRS EPOETIN SQ MWF : NOW ON STEP DOWN UNIT DCP: REFERRED TO JOVON FINCH
--- NOTE | 2020-08-26 11:09 | Infectious Diseases Prog Note ---
"Assessment/Plan Assessment/Plan antibiotics : meropenem A 1. pseudomonas | proteus pneumonia. COVID19 test is negative. 2. proteus | providencia sepsis 3. pseudomonas UTI 4. Hypertension. 5. Atrial fibrillation 6. respiratory failure s/p tracheostomy 7. pleural effusion s/p thoracentesis P 1. continue meropenem 4 more days 2. d/c iv colistin 3. will follow up cultures Subjective ROS Limited/Unobtainable: Yes Allergies: Coded Allergies: No Known Allergies (Unverified , 11/02/19) Objective Last 24 Hour Vital Signs Date Time Temp Pulse Resp B/P (MAP) Pulse Ox O2 Delivery O2 Flow Rate FiO2 08/26/20 09:27 99 08/26/20 08:00 99.0 99 24 114/45 (68) 98 08/26/20 08:00 91 08/26/20 04:00 98.1 105 29 107/55 (72) 96 08/26/20 04:00 60 08/26/20 04:00 Mechanical Ventilator 08/26/20 03:17 113 08/26/20 03:15 105 24 60 08/26/20 02:09 109 23 116/57 98 08/26/20 01:46 108 08/26/20 01:39 113 27 110/32 96 08/26/20 00:00 60 08/26/20 00:00 Mechanical Ventilator 08/26/20 00:00 97.5 71 24 105/36 (59) 100 08/25/20 23:14 87 08/25/20 23:05 92 27 60 08/25/20 20:23 86 96/54 08/25/20 20:00 Mechanical Ventilator 08/25/20 20:00 60 08/25/20 20:00 97.5 82 27 96/54 (68) 100 08/25/20 19:10 88 24 60 08/25/20 19:10 93 24 98 Mechanical Ventilator 60 08/25/20 19:05 81 08/25/20 18:00 97.0 88/45 (59) 08/25/20 16:46 99.0 08/25/20 16:00 Mechanical Ventilator 08/25/20 16:00 99.2 85 24 79/43 (55) 100 08/25/20 16:00 60 08/25/20 15:30 100 08/25/20 15:30 83/45 (58) 08/25/20 15:05 81 24 60 08/25/20 15:05 60 08/25/20 13:43 99 Mechanical Ventilator 100 08/25/20 13:43 87 21 100 08/25/20 13:43 87 21 99 Mechanical Ventilator 100 08/25/20 12:30 99.2 08/25/20 12:11 91 08/25/20 12:00 100.2 98 20 111/67 (82) 94 08/25/20 12:00 91 Height (Feet): 5 Height (Inches): 4.00 Weight (Pounds): 171 HEENT: status post trach Laboratory Tests Test 08/25/20 11:51 08/25/20 14:53 08/26/20 03:20 08/26/20 08:31 Arterial Blood pH 7.235 (7.350-7.450) 7.293 (7.350-7.450) 7.335 (7.350-7.450) Arterial Blood Partial Pressure CO2 51.2 mmHg (35.0-45.0) H 42.7 mmHg (35.0-45.0) 33.6 mmHg (35.0-45.0) L Arterial Blood Partial Pressure O2 53.9 mmHg (75.0-100.0) L 329.9 mmHg (75.0-100.0) H 152.5 mmHg (75.0-100.0) H Arterial Blood HCO3 21.2 mmol/L (22.0-26.0) L 20.2 mmol/L (22.0-26.0) L 17.5 mmol/L (22.0-26.0) *L Arterial Blood Oxygen Saturation 85.9 % (95-100) *L 99.3 % (95-100) 98.5 % (95-100) Arterial Blood Base Excess -6.2 (-2-2) L -5.9 (-2-2) L -7.6 (-2-2) L Conner Test Positive Positive Positive White Blood Count 10.0 K/UL (4.8-10.8) Red Blood Count 2.82 M/UL (4.70-6.10) L Hemoglobin 7.9 G/DL (14.2-18.0) L Hematocrit 24.8 % (42.0-52.0) L Mean Corpuscular Volume 88 FL (80-99) Mean Corpuscular Hemoglobin 28.1 PG (27.0-31.0) Mean Corpuscular Hemoglobin Concent 31.9 G/DL (32.0-36.0) L Red Cell Distribution Width 17.3 % (11.6-14.8) H Platelet Count 263 K/UL (150-450) Mean Platelet Volume 5.7 FL (6.5-10.1) L Neutrophils (%) (Auto) % (45.0-75.0) Lymphocytes (%) (Auto) % (20.0-45.0) Monocytes (%) (Auto) % (1.0-10.0) Eosinophils (%) (Auto) % (0.0-3.0) Basophils (%) (Auto) % (0.0-2.0) Erythrocyte Sedimentation Rate 127 MM/HR (0-20) H Sodium Level 138 MMOL/L (136-145) Potassium Level 5.1 MMOL/L (3.5-5.1) Chloride Level 106 MMOL/L (98-107) Carbon Dioxide Level 20 MMOL/L (21-32) L Anion Gap 12 mmol/L (5-15) Blood Urea Nitrogen 68 mg/dL (7-18) H Creatinine 1.8 MG/DL (0.55-1.30) H Estimat Glomerular Filtration Rate 37.7 mL/min (>60) Glucose Level 69 MG/DL (74-106) L Lactic Acid Level 0.80 mmol/L (0.4-2.0) Calcium Level 8.4 MG/DL (8.5-10.1) L Total Bilirubin 1.0 MG/DL (0.2-1.0) Aspartate Amino Transf (AST/SGOT) 46 U/L (15-37) H Alanine Aminotransferase (ALT/SGPT) 50 U/L (12-78) Alkaline Phosphatase 145 U/L (46-116) H C-Reactive Protein, Quantitative > 70.0 mg/dL (0.00-0.90) H Total Protein 6.0 G/DL (6.4-8.2) L Albumin 1.1 G/DL (3.4-5.0) L Globulin 4.9 g/dL Albumin/Globulin Ratio 0.2 (1.0-2.7) L Amylase Level 29 U/L (25-115) Lipase 88 U/L (73-393) Current Medications Medications (Trade) Dose Ordered Sig/Clive Route PRN Reason Start Time Stop Time Status Last Admin Dose Admin Acetaminophen (Tylenol) 650 mg Q4H PRN GT Temp >100.5 08/18/20 21:15 09/17/20 21:14 08/25/20 16:16 Amiodarone HCl (Cordarone) 200 mg DAILY GT 08/24/20 09:00 10/28/20 17:59 08/26/20 09:27 Ascorbic Acid (Vitamin C) 500 mg DAILY ORAL 08/17/20 16:00 09/16/20 15:59 08/26/20 09:27 Atorvastatin Calcium (Lipitor) 10 mg BEDTIME ORAL 08/05/20 21:00 10/22/20 20:59 08/25/20 20:19 Chlorhexidine Gluconate (Jennifer-Hex 2%) 1 applic DAILY@1999 TOPIC 07/17/20 20:00 10/15/20 19:59 08/25/20 20:19 Colistimethate Sodium (Colistin) 150 mg EVERY 12 HOURS IVP 08/22/20 12:30 08/26/20 21:01 08/26/20 09:16 Epoetin Tino (Epoetin Tino-EPBX(NON ESRD)) 2,000 unit SUBQ 08/25/20 21:00 11/23/20 20:59 08/25/20 21:41 Epoetin Itno (Epoetin Tino-EPBX(NON ESRD)) 3,000 unit SUBQ 08/25/20 21:00 11/23/20 20:59 08/25/20 21:41 Famotidine (Pepcid) 20 mg Q12HR GT 07/16/20 21:00 10/14/20 20:59 08/26/20 09:28 Finasteride (Proscar) 5 mg DAILY ORAL 07/15/20 09:00 10/13/20 08:59 08/26/20 09:27 Hydralazine HCl (Apresoline) 25 mg Q6H PRN GT SBP above 150 07/24/20 23:30 10/22/20 23:29 07/26/20 05:22 Levetiracetam (Keppra) 1,000 mg Q12HR ORAL 08/22/20 09:07 10/06/20 09:06 08/26/20 09:27 Lorazepam (Ativan 2mg/ml 1ml) 1 mg Q1H PRN IV For Seizures 08/26/20 01:30 09/02/20 01:29 08/26/20 01:39 Meropenem 1 gm/ Sodium Chloride 55 ml @ 110 mls/hr Q12HR IVPB 08/25/20 09:00 08/30/20 08:59 08/26/20 09:16 Metoclopramide HCl (Reglan) 5 mg Q6H IVP 08/21/20 22:00 09/20/20 21:59 08/26/20 09:24 Metoprolol Tartrate (Lopressor) 100 mg Q12HR ORAL 08/13/20 09:00 11/11/20 08:59 08/26/20 09:27 Multivitamins (Multivitamins) 1 tab DAILY ORAL 08/17/20 16:00 09/16/20 15:59 08/26/20 09:27 Sodium Hypochlorite (Dakin's Half Strength) 1 applic DAILY TOPIC 08/19/20 16:30 09/18/20 16:29 08/26/20 09:28 Sodium Chloride 550 ml @ 125 mls/hr Q4H24M IV 08/24/20 18:00 09/23/20 17:59 08/26/20 09:28 Kristie Reina MD Aug 26, 2020 11:09"
--- NOTE | 2020-08-26 11:45 | Surgery Progress Note ---
Surgery Progress Note Subjective Additional Comments downgraded on support cxr noted thora pending no n/v Objective Last 24 Hour Vital Signs Date Time Temp Pulse Resp B/P (MAP) Pulse Ox O2 Delivery O2 Flow Rate FiO2 08/26/20 09:27 99 08/26/20 08:00 99.0 99 24 114/45 (68) 98 08/26/20 08:00 91 08/26/20 04:00 98.1 105 29 107/55 (72) 96 08/26/20 04:00 60 08/26/20 04:00 Mechanical Ventilator 08/26/20 03:17 113 08/26/20 03:15 105 24 60 08/26/20 02:09 109 23 116/57 98 08/26/20 01:46 108 08/26/20 01:39 113 27 110/32 96 08/26/20 00:00 60 08/26/20 00:00 Mechanical Ventilator 08/26/20 00:00 97.5 71 24 105/36 (59) 100 08/25/20 23:14 87 08/25/20 23:05 92 27 60 08/25/20 20:23 86 96/54 08/25/20 20:00 Mechanical Ventilator 08/25/20 20:00 60 08/25/20 20:00 97.5 82 27 96/54 (68) 100 08/25/20 19:10 88 24 60 08/25/20 19:10 93 24 98 Mechanical Ventilator 60 08/25/20 19:05 81 08/25/20 18:00 97.0 88/45 (59) 08/25/20 16:46 99.0 08/25/20 16:00 Mechanical Ventilator 08/25/20 16:00 99.2 85 24 79/43 (55) 100 08/25/20 16:00 60 08/25/20 15:30 100 08/25/20 15:30 83/45 (58) 08/25/20 15:05 81 24 60 08/25/20 15:05 60 08/25/20 13:43 99 Mechanical Ventilator 100 08/25/20 13:43 87 21 100 08/25/20 13:43 87 21 99 Mechanical Ventilator 100 08/25/20 12:30 99.2 08/25/20 12:11 91 08/25/20 12:00 100.2 98 20 111/67 (82) 94 08/25/20 12:00 91 I&O Intake and Output 08/25/20 08/26/20 19:00 07:00 Intake Total 1140 ml 1392 ml Output Total 800 ml Balance 1140 ml 592 ml Intake Free Water 40 ml 120 ml IV Total 1100 ml 1022 ml Tube Feeding 250 ml Output Urine Total 800 ml # Bowel Movements 1 Dressing: saturated Cardiovascular: RSR Respiratory: decreased breath sounds Abdomen: soft, non-tender, present bowel sounds, non-distended Extremities: no edema, no tenderness, other Laboratory Tests Test 08/25/20 11:51 08/25/20 14:53 08/26/20 03:20 08/26/20 08:31 Arterial Blood pH 7.235 (7.350-7.450) 7.293 (7.350-7.450) 7.335 (7.350-7.450) Arterial Blood Partial Pressure CO2 51.2 mmHg (35.0-45.0) H 42.7 mmHg (35.0-45.0) 33.6 mmHg (35.0-45.0) L Arterial Blood Partial Pressure O2 53.9 mmHg (75.0-100.0) L 329.9 mmHg (75.0-100.0) H 152.5 mmHg (75.0-100.0) H Arterial Blood HCO3 21.2 mmol/L (22.0-26.0) L 20.2 mmol/L (22.0-26.0) L 17.5 mmol/L (22.0-26.0) *L Arterial Blood Oxygen Saturation 85.9 % (95-100) *L 99.3 % (95-100) 98.5 % (95-100) Arterial Blood Base Excess -6.2 (-2-2) L -5.9 (-2-2) L -7.6 (-2-2) L Conner Test Positive Positive Positive White Blood Count 10.0 K/UL (4.8-10.8) Red Blood Count 2.82 M/UL (4.70-6.10) L Hemoglobin 7.9 G/DL (14.2-18.0) L Hematocrit 24.8 % (42.0-52.0) L Mean Corpuscular Volume 88 FL (80-99) Mean Corpuscular Hemoglobin 28.1 PG (27.0-31.0) Mean Corpuscular Hemoglobin Concent 31.9 G/DL (32.0-36.0) L Red Cell Distribution Width 17.3 % (11.6-14.8) H Platelet Count 263 K/UL (150-450) Mean Platelet Volume 5.7 FL (6.5-10.1) L Neutrophils (%) (Auto) % (45.0-75.0) Lymphocytes (%) (Auto) % (20.0-45.0) Monocytes (%) (Auto) % (1.0-10.0) Eosinophils (%) (Auto) % (0.0-3.0) Basophils (%) (Auto) % (0.0-2.0) Erythrocyte Sedimentation Rate 127 MM/HR (0-20) H Sodium Level 138 MMOL/L (136-145) Potassium Level 5.1 MMOL/L (3.5-5.1) Chloride Level 106 MMOL/L (98-107) Carbon Dioxide Level 20 MMOL/L (21-32) L Anion Gap 12 mmol/L (5-15) Blood Urea Nitrogen 68 mg/dL (7-18) H Creatinine 1.8 MG/DL (0.55-1.30) H Estimat Glomerular Filtration Rate 37.7 mL/min (>60) Glucose Level 69 MG/DL (74-106) L Lactic Acid Level 0.80 mmol/L (0.4-2.0) Calcium Level 8.4 MG/DL (8.5-10.1) L Total Bilirubin 1.0 MG/DL (0.2-1.0) Aspartate Amino Transf (AST/SGOT) 46 U/L (15-37) H Alanine Aminotransferase (ALT/SGPT) 50 U/L (12-78) Alkaline Phosphatase 145 U/L (46-116) H C-Reactive Protein, Quantitative > 70.0 mg/dL (0.00-0.90) H Total Protein 6.0 G/DL (6.4-8.2) L Albumin 1.1 G/DL (3.4-5.0) L Globulin 4.9 g/dL Albumin/Globulin Ratio 0.2 (1.0-2.7) L Amylase Level 29 U/L (25-115) Lipase 88 U/L (73-393) Plan Problems: (1) Decubitus skin ulcer Assessment & Plan: Pt was discharged 08/15/20 and readmitted same day. Pt presented with GALLEY STRIPPER Shunt,Tracheostomy , GT and Multiple Pressure Injuries and contractures. Small amt exudate that is of Sanguineous mixed with Formula noted from GT. Mild excoriation noted to Peristomal GT site. Full Thickness Sacral Pressure Injury (L)10.5cm x (W)8.3cm x (D)1.5cm, Undermining clockwise 9-2 by 1.3cm @10'oclock. Base of wound is 90% granular 10% necrotic. NO odor noted. Small amt serosanguineous exudate noted.Periwound is erythematous and indurated. No changes in skin temp noted. Full Thickness Pressure Injury Outer L Lower Quadrant of Buttocks.(L)5.5cm x (W)7cm x (D)1.5cm, Undermining clockwise 9-3 by 4.5cm @12o'clock, Tunneled area within base of wound by 5.5cm @ 1-2o'clock. Base of wound is 85% % moist and pink ,15% necrotic at base at undermined area of wound. Bone exposure noted. Small amt serosanguineous exudate noted. Periwound is erythematous and indurated. No odor noted. Full thickness Pressure Injury L Ischium(L)2cm x (W)0.9cm x (D)0.3cm. Base of wound is moist, and pink. Edges are adherent to base of wound. Periwound is maroon and indurated. NO changes in skin temp periwound. NO odor noted. Non-Blanchable erythema without induration noted to R Hip /R trochanteric.. Full Thickness Pressure Injury lateral L Tibia(L)21.5cm x (W)3.5cm x (D)0.2cm. Base of wound is 95% granular,5% necrosis along borders. Edges are adherent to base of wound . Moderate amt sanguineous exudate noted. No odor noted.Periwound skin colour is darker than is normal tone but without erythema or induration. Full thickness Pressure Injury L Heel extending into Plantar aspect of heel(L)8.7cm x (W)6.5cm x(D)0.6cm.Base of wound is 60% beefy granulation,40% necrotic. Bone is palpable. (+) Epibole at proximal borders of wound in close proximity with achilles. Small amt haemopurulent exudate noted. Wound is malodorous. Periwound is dusky and indurated. Full Thickness Pressure Injury Lateral L Foot (L)1.9cm x (W)3.4cm x (D)0.3cm, undermining clockwise 9-3 by 0.2cm @9o'clock. Base of wound is 10% necrotic 90% antonio. Wound is malodorous. Edges are macerate with scattered areas of necrosis along edges. Small amt haemopurulent exudate noted.Periwound is fluctuant and dusky. Full Thickness Pressure Injury distal/lateral L foot(L)1.3cm x (W)3.7cm x (D)0.2cm. Base of wound is 80% soft necrosis,20% moist and pink. edges are macerated. Wound is malodorous. Small amt brown exudate noted . Periwound is dusky and fluctuant. Unstageable Pressure injury dorsal L foot (L)1cm x (W)0.9cm. Base of wound is 100% necrotic. Edges are erythematous and macerated. Periwound without erythema,induration or fluctuance. Full thickness Pressure Injury R Heel including plantar aspect of heel (L)8.7cm x (W)6.5cm x (D)0.6cm. Base of wound is 60% beefy granulation,40% necrotic. Bone exposure at base of wound. Moderate amt haemopurulent exudate. Wound is malodorous. Proximal edges of wound within close proximity with achilles is rolled. Edges are otherwise macerated. Periwound is fluctuant and dusky. Full Thickness Pressure Injury distal/lateral R foot (L)0.5cm x (W)0.6cm. Base of wound is 100% fibrinous slough. Erythematous borders. Periwound without induration or fluctuance. Small amt serous exudate noted. Tx.Plan: Wash GT site with Soap and Water. Pat dry. Apply Moisture Barrier Paste around Gt Daily. Leave open to Air. Cleanse Sacral wound, L buttocks, and L Ischia wounds with Dakin's 0.25% Kristel. Loosely pack wounds with Dakin's moistened Kerlix.Apply Triad Paste periwound. Cover with Optifoam drsgs Daily and prn. Cleanse wound Lateral L Tibia with Dakin's o.25% Kristel. Rinse with Saline. Apply Promogran moistened with Saline. Apply Moisture Barrier Paste along borders. Cover with ABD Pads. Wrap with Kerlix every Mon-Wed-Fri (NOTE: Wound Nurse to Aplpy Promogran) Cleanse wounds L Foot with Dakin's 0.25% Kristel. Apply Dakin's moistened Gauze to each wound. Apply Triad Paste along Borders of each wound. Cover with ABD Pads and wrap with Kerlix Daily and prn. Cleanse R Heel wound with Dakin's 0.25% Kristel. Apply Dakin's Moistened Gauze to wound. Apply Triad Paste Periwound. Cover with ABD Pad. Wrap with Kerlix Daily and prn. Reposition at least every 2hours or as tolerated. Place Pillow Between Knees. Off-load heels with 2 Pillows. APM/TERRIE Mattress overlay. Sacral wound,L Buttocks, L Ischial wounds cleansed with Dakin's and each wound loosely packed with Dakin's moistened Kerlix.Moisture Barrier Paste applied to borders of each wound and each wound covered with Optifoam drsgs. Perianal area noted to be red and excoriated. Moisture Barrier Paste applied to affected area. Drsgs to L tibia, L Heel and R Heel noted to be saturated and malodorous. Both lower ext washed with Chlorhexidine soap prior to providing wound care.Base of wound lateral L Tibia beefy red. Edges are adherent with an area of 5% necrosis distally. Small amt sanguineous exudate No erythema or changes in skin temp periwound. Wound Later L Tibia cleansed with Saline. Promogran applied to base of wound.Moisture Barrier Paste applied along borders. Covered with ABD pad. Wrapped with Kerlix. R and L Heel wounds cleansed Dakin's 0.25% kristel. Dakin's moistened gauze applied to each wound Moisture Barrier Paste applied to borders of each wound and each wound covered with Abd Pads and each heel wrapped with Kerlix drsgs. Skin under tracheal collar assessed and no evidence of skin breakdown noted. Peristomal Gt site is resolving, Skin is moist but pink.No new skin concerns noted. (2) Anemia Assessment & Plan: trend h/h prbc prn (3) UTI (urinary tract infection) (4) Pleural effusion, left Assessment & Plan: Ultrasound used to localize optimal puncture site. Sterile prepping and draping left chest. Local anesthesia with 1% lidocaine. Under real-time ultrasound guidance, puncture pleural space using thoracentesis needle. Stylet removed. Catheter placed to vacuum bottle suction. Total 1700 milliliters of fluid aspirated. Patient tolerated procedure well, without immediate complication. Findings: Followup sonography demonstrates small amount of residual pleural fluid. Impression: Successful ultrasound-guided thoracentesis, yielding 1700 milliliters of fluid Lungs: Hazy left lung attenuation could be due to consolidation, pulmonary edema; correlate with presentation. Retrocardiac atelectasis without or with consolidation. Pleural space: Small-moderate left pleural effusion with passive atelectasis. No pneumothorax. Heart: Unremarkable. No cardiomegaly. Mediastinum: Unremarkable. Bones/joints: No acute abnormality Tubes, lines and devices: Tracheostomy. Right upper extremity PICC tip in the mid SVC. IMPRESSION: 1. Tracheostomy. 2. Right upper extremity PICC tip in the mid SVC. 3. Small-moderate left pleural effusion with passive atelectasis. 4. Hazy left lung attenuation could be due to consolidation, pulmonary edema; correlate with presentation. 5. Retrocardiac atelectasis without or with consolidation. 6. Recommend CT chest with IV contrast to further characterize these findings. plan repeat thora (5) Malfunction of gastrostomy tube Assessment & Plan: DAILY ESTIMATED NEEDS: Needs based on Wounds, pulmonary/ 74.5kg 25-30 kcals/kg 8722-8012 total kcals 1.5-2 g protein/kg 111-149 g total protein 25-30 mL/kg 7997-3818 total fluid mLs NUTRITION DIAGNOSIS: * Swallowing difficulty R/T dysphagia, h/o craniotomy, respiratory failure as evidenced by pt on T-collar, GJ tube dependent. * Increased kcal/prot/micronutrients needs R/T wound healing as evidenced by pt admitted w/ multiple advanced wounds including full thickness wound x 7 and unstageable wounds x 2, refer to WC eval. CURRENT TF:Vital AF 1.2 @70ml/hr ENTERAL NUTRITION RECOMMENDATIONS: Vital AF 1.2 @ 65ml/hr x 24 hrs to provide 1560ml, 1872kcal, 117g prot, 1265ml free water * Lower goal rate to 65ml/hr x 24 hrs: meets 100% est kcal/prot needs * HOB over 30 degrees/ water flush 180ml q 6hrs without IVF ------ elemental TF formula of Vital AF not indicated, consider changing TF to Glucerna 1.2 @ 65ml/hr x 24 hrs + Prosource 1pkt TID to provide 1560ml, 1872kcal, 94g+ 33g prot, 1259ml free water ADDITIONAL RECOMMENDATIONS: * Calibrated bedscale wt * Wound Care: Con't Vit C 500mg BID, ZnSO4 220mg QD x 10 days add Stevie BID * Monitor lytes, replete as needed * DC D5 for improved BG control increase H2O flushes instead (Na now wnl, BUN elev) * Rec NISS (6) Acute respiratory failure with hypoxia (7) HCAP (healthcare-associated pneumonia) Deny Westfall Aug 26, 2020 11:45
[2020-08-26 12:00] VITALS: BP 96/52
--- NOTE | 2020-08-26 12:15 | NUR ---
NURSE NOTES: Thoracentesis will be done tomorrow because radiology is only open MWF. Will be obtaining consent.
[2020-08-26 16:00] VITALS: BP 96/53
--- NOTE | 2020-08-26 16:16 | Cardiology Report ---
APPROVED REPORT EKG Measurement Heart [id number] <Conclusion> Sinus tachycardia Right bundle branch block Abnormal ECG
--- NOTE | 2020-08-26 19:30 | NUR ---
NURSE NOTES: pt report received from Danyell RN. pt is obtunded neuro saunders. no acute abnormalities noted to neuro assessment. pt is on air sampling and monitoring showing NSR, no change in cardiac rhythm, no abnormalities noted. Pt is trach vented, sating 99% O2, no acute distress to resp assessment. pt bed is low, locked, armed, bed rails up times 3, call light within reach. will follow plan of care.
[2020-08-26 20:00] VITALS: BP 107/51
--- NOTE | 2020-08-26 20:01 | NUR ---
NURSE HAND-OFF REPORT: Important Events on Shift: stable Patient Status: Diet: Pending Orders: x Pending Results/Labs: Pending MD notification: Latest Vital Signs: Temperature 98.4 , Pulse 92 , B/P 96 /53 , Respiratory Rate 25 , O2 SAT 98 , Trach Collar, O2 Flow Rate 10.0 . Vital Sign Comment: EKG Rhythm: Sinus Rhythm Rhythm change?: N MD Notified?: Nadine Mak and [place]a VALDEZ Response: Message left await call Latest Ramirez Fall Score: 70 Fall Risk: High Risk Safety Measures: Call light Within Reach, Bed Alarm Zone 1, Side Rails Side Rails x3, Bed position Low and Locked. Fall Precautions: Yellow Socks Patient Fall Education Report given to SELIN Huerta.
[2020-08-26] MEDS: Dyna-Hex 2% Top Sol 2oz TOPIC SCH (21:08)
[2020-08-27] VITALS: BP 95/51
--- NOTE | 2020-08-27 01:12 | Cardiology Progress Note ---
Subjective DATE OF SERVICE: Aug 24, 2020 (late entry) Defervesced, and tolerating tube feeds PICC line access remains in place. s/p 1700cc thorocentesis last week, and 1200cc L thorocentesis 08/18. On broad spectrum therapy for positive blood, urine, and sputum cultures with multiple gram negative pathogen. No new bleeding, since back on anticoagulation now following GI clearance. BP parameters stabilized. Monitor: AFib/flutter persisting still with increasing ventricular rates now. Objective Vital signs reviewed for past 24 hrs ROS: unchanged from 07/14/20 HEENT: Thick Trach secretions RHYTHM: NSR, ST, PACs, Afib LUNGS: bilateral rhonchi CARDIAC: normal S1 and S2, rapid rate, arrhythmia ABDOMEN: normal bowel sounds, soft, G-Tube intact EXTREMITIES: normal range of motion, non-tender, trace edema, other - withdrawn Laboratory Tests Test 08/26/20 03:20 08/26/20 08:31 White Blood Count 10.0 K/UL (4.8-10.8) Red Blood Count 2.82 M/UL (4.70-6.10) L Hemoglobin 7.9 G/DL (14.2-18.0) L Hematocrit 24.8 % (42.0-52.0) L Mean Corpuscular Volume 88 FL (80-99) Mean Corpuscular Hemoglobin 28.1 PG (27.0-31.0) Mean Corpuscular Hemoglobin Concent 31.9 G/DL (32.0-36.0) L Red Cell Distribution Width 17.3 % (11.6-14.8) H Platelet Count 263 K/UL (150-450) Mean Platelet Volume 5.7 FL (6.5-10.1) L Neutrophils (%) (Auto) % (45.0-75.0) Lymphocytes (%) (Auto) % (20.0-45.0) Monocytes (%) (Auto) % (1.0-10.0) Eosinophils (%) (Auto) % (0.0-3.0) Basophils (%) (Auto) % (0.0-2.0) Erythrocyte Sedimentation Rate 127 MM/HR (0-20) H Sodium Level 138 MMOL/L (136-145) Potassium Level 5.1 MMOL/L (3.5-5.1) Chloride Level 106 MMOL/L (98-107) Carbon Dioxide Level 20 MMOL/L (21-32) L Anion Gap 12 mmol/L (5-15) Blood Urea Nitrogen 68 mg/dL (7-18) H Creatinine 1.8 MG/DL (0.55-1.30) H Estimat Glomerular Filtration Rate 37.7 mL/min (>60) Glucose Level 69 MG/DL (74-106) L Lactic Acid Level 0.80 mmol/L (0.4-2.0) Calcium Level 8.4 MG/DL (8.5-10.1) L Total Bilirubin 1.0 MG/DL (0.2-1.0) Aspartate Amino Transf (AST/SGOT) 46 U/L (15-37) H Alanine Aminotransferase (ALT/SGPT) 50 U/L (12-78) Alkaline Phosphatase 145 U/L (46-116) H C-Reactive Protein, Quantitative > 70.0 mg/dL (0.00-0.90) H Total Protein 6.0 G/DL (6.4-8.2) L Albumin 1.1 G/DL (3.4-5.0) L Globulin 4.9 g/dL Albumin/Globulin Ratio 0.2 (1.0-2.7) L Amylase Level 29 U/L (25-115) Lipase 88 U/L (73-393) Arterial Blood pH 7.335 (7.350-7.450) Arterial Blood Partial Pressure CO2 33.6 mmHg (35.0-45.0) L Arterial Blood Partial Pressure O2 152.5 mmHg (75.0-100.0) H Arterial Blood HCO3 17.5 mmol/L (22.0-26.0) *L Arterial Blood Oxygen Saturation 98.5 % (95-100) Arterial Blood Base Excess -7.6 (-2-2) L [place]ner Test Positive Assessment/Plan Assessment/Plan Healthcare associated PNA Polymicrobial Gram negative bacteremia and sepsis - UTI Paroxysmal atrial fibrillation/flutter Paroxysmal atrial ectopy 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 Dyslipidemia on high dose statin - now dose adjusted Dehydration/hypernatremia Severe protein-calorie malnutrition Multiple wounds Anemia - s/p tx Pleural effusion - s/p left thorocentesis Titrate beta blockade dose as tolerated by BP; may have to digitalize. Abx per ID Resp support Cardiac monitoring Statin dose adjusted Amiodarone at increased dose again to maintain sinus rhythm, and improve rate control. Free water replacement as needed; on IVF for now. Diuresis based on daily assessments of volume status. Continue anticoagulation with caution due to bleeding risk Dylan Mak MD Aug 27, 2020 01:12
--- NOTE | 2020-08-27 01:13 | Cardiology Progress Note ---
Subjective DATE OF SERVICE: Aug 25, 2020 (late entry) Having frequent episodes of rapid atrial fibrillation today. Increasingly hypoxic with poor acid-base parameters. PICC line access remains in place. s/p 1700cc thorocentesis last week, and 1200cc L thorocentesis 08/18. On antimicrobials for positive blood, urine, and sputum cultures with multiple gram negative pathogen. No new bleeding, since back on anticoagulation now following GI clearance. Objective Last 24 Hour Vital Signs reviewed ROS: unchanged from 07/14/20 HEENT: Mechanically Ventilated, Thick Trach secretions RHYTHM: NSR, ST, PACs, Afib LUNGS: diminished breath sounds, bilateral rhonchi CARDIAC: normal S1 and S2, rapid rate, arrhythmia ABDOMEN: normal bowel sounds, soft, G-Tube intact EXTREMITIES: normal range of motion, non-tender, trace edema, other - withdrawn Laboratory Tests Test 08/26/20 03:20 08/26/20 08:31 White Blood Count 10.0 K/UL (4.8-10.8) Red Blood Count 2.82 M/UL (4.70-6.10) L Hemoglobin 7.9 G/DL (14.2-18.0) L Hematocrit 24.8 % (42.0-52.0) L Mean Corpuscular Volume 88 FL (80-99) Mean Corpuscular Hemoglobin 28.1 PG (27.0-31.0) Mean Corpuscular Hemoglobin Concent 31.9 G/DL (32.0-36.0) L Red Cell Distribution Width 17.3 % (11.6-14.8) H Platelet Count 263 K/UL (150-450) Mean Platelet Volume 5.7 FL (6.5-10.1) L Neutrophils (%) (Auto) % (45.0-75.0) Lymphocytes (%) (Auto) % (20.0-45.0) Monocytes (%) (Auto) % (1.0-10.0) Eosinophils (%) (Auto) % (0.0-3.0) Basophils (%) (Auto) % (0.0-2.0) Erythrocyte Sedimentation Rate 127 MM/HR (0-20) H Sodium Level 138 MMOL/L (136-145) Potassium Level 5.1 MMOL/L (3.5-5.1) Chloride Level 106 MMOL/L (98-107) Carbon Dioxide Level 20 MMOL/L (21-32) L Anion Gap 12 mmol/L (5-15) Blood Urea Nitrogen 68 mg/dL (7-18) H Creatinine 1.8 MG/DL (0.55-1.30) H Estimat Glomerular Filtration Rate 37.7 mL/min (>60) Glucose Level 69 MG/DL (74-106) L Lactic Acid Level 0.80 mmol/L (0.4-2.0) Calcium Level 8.4 MG/DL (8.5-10.1) L Total Bilirubin 1.0 MG/DL (0.2-1.0) Aspartate Amino Transf (AST/SGOT) 46 U/L (15-37) H Alanine Aminotransferase (ALT/SGPT) 50 U/L (12-78) Alkaline Phosphatase 145 U/L (46-116) H C-Reactive Protein, Quantitative > 70.0 mg/dL (0.00-0.90) H Total Protein 6.0 G/DL (6.4-8.2) L Albumin 1.1 G/DL (3.4-5.0) L Globulin 4.9 g/dL Albumin/Globulin Ratio 0.2 (1.0-2.7) L Amylase Level 29 U/L (25-115) Lipase 88 U/L (73-393) Arterial Blood pH 7.335 (7.350-7.450) Arterial Blood Partial Pressure CO2 33.6 mmHg (35.0-45.0) L Arterial Blood Partial Pressure O2 152.5 mmHg (75.0-100.0) H Arterial Blood HCO3 17.5 mmol/L (22.0-26.0) *L Arterial Blood Oxygen Saturation 98.5 % (95-100) Arterial Blood Base Excess -7.6 (-2-2) L Conner Test Positive Assessment/Plan Assessment/Plan Respiratory failure Healthcare associated PNA Polymicrobial Gram negative bacteremia and sepsis - UTI Paroxysmal atrial fibrillation/flutter Paroxysmal atrial ectopy Hx ICB with craniotomy and WIRE 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 Dyslipidemia on high dose statin - now dose adjusted Dehydration/hypernatremia Severe protein-calorie malnutrition Multiple wounds Anemia - s/p tx Pleural effusion - s/p bilateral thorocentesis Full vent support; monitor ABG and review CXR Titrate beta blockade dose as tolerated by BP; may have to digitalize. Abx per ID Cardiac monitoring Statin dose adjusted Amiodarone at increased dose to maintain sinus rhythm. Diuresis based on daily assessments of volume status. Continue anticoagulation with caution due to bleeding risk Dylan Mak MD Aug 27, 2020 01:13
--- NOTE | 2020-08-27 01:17 | Cardiology Progress Note ---
Subjective DATE OF SERVICE: Aug 26, 2020 Doing poorly; remains of vent support. Tolerating tube feeds PICC line access remains in place. s/p 1700cc thorocentesis last week, and 1200cc L thorocentesis 08/18; now has recurrent large effusion. On broad spectrum antibiotics for positive blood, urine, and sputum cultures with multiple gram negative pathogens. Monitor: AFib/flutter persisting now with variable ventricular rates now. Objective Last 24 Hour Vital Signs Date Time Temp Pulse Resp B/P (MAP) Pulse Ox O2 Delivery O2 Flow Rate FiO2 08/27/20 00:00 97.5 83 24 95/51 (66) 99 08/27/20 00:00 Mechanical Ventilator 08/27/20 00:00 60 08/27/20 00:00 82 08/26/20 23:08 81 27 60 08/26/20 21:10 97 113/68 08/26/20 20:00 99.0 90 24 107/51 (69) 99 08/26/20 20:00 89 08/26/20 20:00 Mechanical Ventilator 08/26/20 20:00 60 08/26/20 19:14 92 25 60 08/26/20 16:00 60 08/26/20 16:00 Mechanical Ventilator 08/26/20 16:00 98.4 80 24 96/53 (67) 98 08/26/20 15:54 80 08/26/20 15:26 80 24 60 08/26/20 12:41 79 08/26/20 12:00 60 08/26/20 12:00 99.3 79 27 96/52 (67) 98 08/26/20 12:00 Mechanical Ventilator 08/26/20 11:49 79 24 60 08/26/20 09:27 99 08/26/20 08:00 Mechanical Ventilator 08/26/20 08:00 99.0 99 24 114/45 (68) 98 08/26/20 08:00 91 08/26/20 08:00 60 08/26/20 07:27 100 24 60 08/26/20 04:00 98.1 105 29 107/55 (72) 96 08/26/20 04:00 60 08/26/20 04:00 Mechanical Ventilator 08/26/20 03:17 113 08/26/20 03:15 105 24 60 08/26/20 02:09 109 23 116/57 98 08/26/20 01:46 108 08/26/20 01:39 113 27 110/32 96 ROS: unchanged from 07/14/20 HEENT: Mechanically Ventilated, Thick Trach secretions RHYTHM: NSR, ST, PACs, Afib LUNGS: diminished breath sounds, bilateral rhonchi CARDIAC: normal S1 and S2, rapid rate, arrhythmia ABDOMEN: normal bowel sounds, soft, G-Tube intact EXTREMITIES: normal range of motion, non-tender, trace edema, other - withdrawn Laboratory Tests Test 08/26/20 03:20 08/26/20 08:31 White Blood Count 10.0 K/UL (4.8-10.8) Red Blood Count 2.82 M/UL (4.70-6.10) L Hemoglobin 7.9 G/DL (14.2-18.0) L Hematocrit 24.8 % (42.0-52.0) L Mean Corpuscular Volume 88 FL (80-99) Mean Corpuscular Hemoglobin 28.1 PG (27.0-31.0) Mean Corpuscular Hemoglobin Concent 31.9 G/DL (32.0-36.0) L Red Cell Distribution Width 17.3 % (11.6-14.8) H Platelet Count 263 K/UL (150-450) Mean Platelet Volume 5.7 FL (6.5-10.1) L Neutrophils (%) (Auto) % (45.0-75.0) Lymphocytes (%) (Auto) % (20.0-45.0) Monocytes (%) (Auto) % (1.0-10.0) Eosinophils (%) (Auto) % (0.0-3.0) Basophils (%) (Auto) % (0.0-2.0) Erythrocyte Sedimentation Rate 127 MM/HR (0-20) H Sodium Level 138 MMOL/L (136-145) Potassium Level 5.1 MMOL/L (3.5-5.1) Chloride Level 106 MMOL/L (98-107) Carbon Dioxide Level 20 MMOL/L (21-32) L Anion Gap 12 mmol/L (5-15) Blood Urea Nitrogen 68 mg/dL (7-18) H Creatinine 1.8 MG/DL (0.55-1.30) H Estimat Glomerular Filtration Rate 37.7 mL/min (>60) Glucose Level 69 MG/DL (74-106) L Lactic Acid Level 0.80 mmol/L (0.4-2.0) Calcium Level 8.4 MG/DL (8.5-10.1) L Total Bilirubin 1.0 MG/DL (0.2-1.0) Aspartate Amino Transf (AST/SGOT) 46 U/L (15-37) H Alanine Aminotransferase (ALT/SGPT) 50 U/L (12-78) Alkaline Phosphatase 145 U/L (46-116) H C-Reactive Protein, Quantitative > 70.0 mg/dL (0.00-0.90) H Total Protein 6.0 G/DL (6.4-8.2) L Albumin 1.1 G/DL (3.4-5.0) L Globulin 4.9 g/dL Albumin/Globulin Ratio 0.2 (1.0-2.7) L Amylase Level 29 U/L (25-115) Lipase 88 U/L (73-393) Arterial Blood pH 7.335 (7.350-7.450) Arterial Blood Partial Pressure CO2 33.6 mmHg (35.0-45.0) L Arterial Blood Partial Pressure O2 152.5 mmHg (75.0-100.0) H Arterial Blood HCO3 17.5 mmol/L (22.0-26.0) *L Arterial Blood Oxygen Saturation 98.5 % (95-100) Arterial Blood Base Excess -7.6 (-2-2) L Conner Test Positive Assessment/Plan Assessment/Plan Healthcare associated PNA Polymicrobial Gram negative bacteremia and sepsis - UTI Paroxysmal atrial fibrillation/flutter Paroxysmal atrial ectopy Hx ICB with craniotomy and CHANNEL EXECUTIVE shunt Ac/chronic encephalopathy Seizure disorder Troponin leak; no signs of acute ME Trach status with respiratory failure Dysphagia with GJ-Tube 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 Dyslipidemia on high dose statin - now dose adjusted Dehydration/hypernatremia Severe protein-calorie malnutrition Multiple wounds Anemia - s/p tx Pleural effusion - s/p bilateral thorocentesis, and now with recurrence. Titrate beta blockade dose as tolerated by BP; may have to digitalize. Abx per ID Full vent support Cardiac monitoring Statin dose adjusted Amiodarone at increased dose to maintain sinus rhythm. Free water replacement as needed; on IVF for now. Diuresis based on daily assessments of volume status. Hold anticoagulation for possible thorocentesis. Dylan Mak MD Aug 27, 2020 01:17
[2020-08-27 04:00] VITALS: BP 101/57
[2020-08-27] MEDS: Metoclopramide 10mg/2ml Inj IVP SCH ×4 (04:07→21:16)
[2020-08-27] MEDS: Sodium Chloride 550 ML IV SCH ×5 (04:07→21:28)
[2020-08-27 07:02] LABS: INR 1.2 (0.9-1.1)
[2020-08-27 07:08] LABS: HEMATOCRIT 24.5 % (42.0-52.0); HEMOGLOBIN 7.6 G/DL (14.2-18.0); MEAN CORPUSCULAR VOLUME 89 FL (80-99); PLATELET COUNT 327 K/UL (150-450); RED BLOOD COUNT 2.76 M/UL (4.70-6.10); RED CELL DISTRIBUTION WIDTH 16.7 % (11.6-14.8); WHITE BLOOD COUNT 8.1 K/UL (4.8-10.8)
--- NOTE | 2020-08-27 07:20 | NUR ---
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 RECEIVED PT WITH HOB ELEVATED 45 DEGREE ,OBTUNDED TRACH TO VENT DEPENDENT. PT TOLERATING WELL CURRENTS VENT SETTINGS,SAT 96 TO 98% NOTED . RENDERED TRACH CARE AND ORAL HYGIENE LG AMT OF TICK SECRETIONS NOTED.PT RECEIVING VITAL A.F @ 50cc/hrs ,TOLERATING WELL ,NO RESIDUAL NOTED AT THIS TIME. PT WITH F/C KISWAHILI # 16 DRAINING SM AMT OF YELLOWISH URINE COLOR AND RECTAL TUBE DRAINING LIGHT BROWN WATERY STOOLS COLOR. PT REPOSITIONED IN BED Q2 HRS TO PROVIDE COMFORT AND TO PREVENT FURTHER SKIN BREAK DOWN. FULL BODY ASSESSMENT DONE. WILL CONT TO MONITOR.
[2020-08-27 07:39] LABS: ALBUMIN 0.9 G/DL (3.4-5.0); ALBUMIN/GLOBULIN RATIO 0.2 (1.0-2.7); BILIRUBIN,TOTAL 0.7 MG/DL (0.2-1.0); CALCIUM 8.8 MG/DL (8.5-10.1); CREATININE 1.9 MG/DL (0.55-1.30); POTASSIUM 4.8 MMOL/L (3.5-5.1)
--- NOTE | 2020-08-27 07:41 | NUR ---
NURSE HAND-OFF REPORT: Important Events on Shift:[NA] Patient Status: [unchanged] Diet: [as per doctor order. tube feeding. ] Pending Orders: [NA] Pending Results/Labs:[na] Pending MD notification:[na] Latest Vital Signs: Temperature 97.6 , Pulse 83 , B/P 101 /57 , Respiratory Rate 24 , O2 SAT 98 , Trach Collar, O2 Flow Rate 10.0 . Vital Sign Comment: [stable] EKG Rhythm: Sinus Rhythm Rhythm change?: N MD Notified?: Nadine Mak and Quita VALDEZ Response: Message left await call Latest Ramirez Fall Score: 70 Fall Risk: High Risk Safety Measures: Call light Within Reach, Bed Alarm Zone 1, Side Rails Side Rails x3, Bed position Low and Locked. Fall Precautions: Yellow Socks Patient Fall Education Report given to [LORRI Bull RN].
[2020-08-27 08:00] VITALS: BP 129/54
--- NOTE | 2020-08-27 08:03 | General Progress Note ---
Subjective ROS Limited/Unobtainable: No Constitutional: Reports: malaise, weakness HEENT: Reports: no symptoms Cardiovascular: Reports: no symptoms Respiratory: Reports: cough, shortness of breath Gastrointestinal/Abdominal: Reports: difficulty swallowing Genitourinary: Reports: no symptoms Neurologic/Psychiatric: Reports: pre-existing deficit, seizure Endocrine: Reports: no symptoms Hematologic/Lymphatic: Reports: anemia Allergies: Coded Allergies: No Known Allergies (Unverified , 11/02/19) All Systems: reviewed and negative except above Subjective no events. stable on the vent. Patient is awake but nonverbal does not track or follow commands. Patient is tolerating feeding. H&H is slightly lower. No reports of any bleeding. No fevers noted. Creatinine is stable. Objective Last 24 Hour Vital Signs Date Time Temp Pulse Resp B/P (MAP) Pulse Ox O2 Delivery O2 Flow Rate FiO2 08/27/20 04:00 Mechanical Ventilator 08/27/20 04:00 60 08/27/20 04:00 83 08/27/20 04:00 97.6 81 24 101/57 (72) 98 08/27/20 03:11 86 25 60 08/27/20 00:00 97.5 83 24 95/51 (66) 99 08/27/20 00:00 Mechanical Ventilator 08/27/20 00:00 60 08/27/20 00:00 82 08/26/20 23:08 81 27 60 08/26/20 21:10 97 113/68 08/26/20 20:00 99.0 90 24 107/51 (69) 99 08/26/20 20:00 89 08/26/20 20:00 Mechanical Ventilator 08/26/20 20:00 60 08/26/20 19:14 92 25 60 08/26/20 16:00 60 08/26/20 16:00 Mechanical Ventilator 08/26/20 16:00 98.4 80 24 96/53 (67) 98 08/26/20 15:54 80 08/26/20 15:26 80 24 60 08/26/20 12:41 79 08/26/20 12:00 60 08/26/20 12:00 99.3 79 27 96/52 (67) 98 08/26/20 12:00 Mechanical Ventilator 08/26/20 11:49 79 24 60 08/26/20 09:27 99 Intake and Output 08/26/20 08/27/20 19:00 07:00 Intake Total 1440 ml 1650 ml Output Total 500 ml Balance 1440 ml 1150 ml Intake Oral 480 ml Free Water 200 ml IV Total 680 ml 1180 ml Tube Feeding 80 ml 470 ml Output Urine Total 500 ml # Bowel Movements 1 Laboratory Tests 08/26/20 08:31: Arterial Blood pH 7.335L, Arterial Blood Partial Pressure CO2 33.6L, Arterial Bl ood Partial Pressure O2 152.5H, Arterial Blood HCO3 17.5*L, Arterial Blood Oxygen Saturation 98.5, Arterial Blood Base Excess -7.6L, Conner Test Positive 08/27/20 04:03: White Blood Count 8.1, Red Blood Count 2.76L, Hemoglobin 7.6L, Hematocrit 24.5L, Mean Corpuscular Volume 89, Mean Corpuscular Hemoglobin 27.5, Mean Corpuscular Hemoglobin Concent 31.0L, Red Cell Distribution Width 16.7H, Platelet Count 327, Mean Platelet Volume 5.3L, Neutrophils (%) (Auto) , Lymphocytes (%) (Auto) , Monocytes (%) (Auto) , Eosinophils (%) (Auto) , Basophils (%) (Auto) , Neutrophils % (Manual) [Pending], Lymphocytes % (Manual) [Pending], Platelet Estimate [Pending], Platelet Morphology [Pending], Prothrombin Time 12.9H, Prothromb Time International Ratio 1.2H, Activated Partial Thromboplast Time 32, Sodium Level 140, Potassium Level 4.8, Chloride Level 110H, Carbon Dioxide Level 19L, Anion Gap 12, Blood Urea Nitrogen 69H, Creatinine 1.9H, Estimat Glomerular Filtration Rate 35.4, Glucose Level 72L, Calcium Level 8.8, Total Bilirubin 0.7, Aspartate Amino Transf (AST/SGOT) 53H, Alanine Aminotransferase (ALT/SGPT) 51, Alkaline Phosphatase 200H, Total Protein 5.8L, Albumin 0.9L, Globulin 4.9, Albumin/Globulin Ratio 0.2L Height (Feet): 5 Height (Inches): 4.00 Weight (Pounds): 171 Objective General Appearance: WD/WN, confused EENT: normal ENT inspection. on the vent Neck: normal alignment Cardiovascular: normal rate, regular rhythm Respiratory/Chest: rhonchi - bilaterally Abdomen: normal bowel sounds, non tender, soft, no organomegaly Edema: no edema noted Leg (L), no edema noted Leg (R) Neurologic: disoriented, aphasia Skin: normal pigmentation Assessment/Plan Problem List: (1) Anemia ICD Codes: D64.9 - Anemia, unspecified SNOMED: 559976193, 028016432 Qualifiers: Qualified Codes: D50.0 - Iron deficiency anemia secondary to blood loss (chronic) (2) Pleural effusion, left ICD Codes: J90 - Pleural effusion, not elsewhere classified SNOMED: 68673253, 574168897 (3) Malfunction of gastrostomy tube ICD Codes: K94.23 - Gastrostomy malfunction SNOMED: 992010168 (4) Acute respiratory failure with hypoxia ICD Codes: J96.01 - Acute respiratory failure with hypoxia SNOMED: 97817088, 655442319 (5) HCAP (healthcare-associated pneumonia) ICD Codes: J18.9 - Pneumonia, unspecified organism SNOMED: 510841688, 568118698 Status: stable, progressing Assessment/Plan: iv abx per id follow up cultures trach care resp rx/suctioning as needed vent per pulm Thoracentesis ordered by surgery tube feeds monitor residuals sz rx bp rx monitor h/h transfuse as needed epogen iron rx repeat cxr wound care monitor labs Angel Jaramillo MD Aug 27, 2020 08:03
[2020-08-27] MEDS: Metoprolol Tartrate 100mg tab ORAL SCH ×2 (09:16→21:00)
[2020-08-27] MEDS: Ascorbic Acid 500mg tab ORAL SCH (09:16)
[2020-08-27] MEDS: Amiodarone 200mg tab GT SCH (09:16)
[2020-08-27] MEDS: Meropenem 1 GM in NS 55 ML IVPB SCH ×2 (09:16→21:27)
[2020-08-27] MEDS: Dakin's 0.25% (Half Strength) 16oz TOPIC SCH (09:18)
--- NOTE | 2020-08-27 09:49 | Pulmonology Progress Note ---
Subjective ROS Limited/Unobtainable: Yes Gastrointestinal/Abdominal: Reports: diarrhea, other - X 1 Allergies: Coded Allergies: No Known Allergies (Unverified , 11/02/19) All Systems: reviewed and negative except above Subjective CARE NOTED nonverbal hypoxemic and acidotic but now better hypotension better anemia noted Objective Last 24 Hour Vital Signs Date Time Temp Pulse Resp B/P (MAP) Pulse Ox O2 Delivery O2 Flow Rate FiO2 08/27/20 09:16 88 129/54 08/27/20 08:00 97.8 88 22 129/54 (79) 99 08/27/20 04:00 Mechanical Ventilator 08/27/20 04:00 60 08/27/20 04:00 83 08/27/20 04:00 97.6 81 24 101/57 (72) 98 08/27/20 03:11 86 25 60 08/27/20 00:00 97.5 83 24 95/51 (66) 99 08/27/20 00:00 Mechanical Ventilator 08/27/20 00:00 60 08/27/20 00:00 82 08/26/20 23:08 81 27 60 08/26/20 21:10 97 113/68 08/26/20 20:00 99.0 90 24 107/51 (69) 99 08/26/20 20:00 89 08/26/20 20:00 Mechanical Ventilator 08/26/20 20:00 60 08/26/20 19:14 92 25 60 08/26/20 16:00 60 08/26/20 16:00 Mechanical Ventilator 08/26/20 16:00 98.4 80 24 96/53 (67) 98 08/26/20 15:54 80 08/26/20 15:26 80 24 60 08/26/20 12:41 79 08/26/20 12:00 60 08/26/20 12:00 99.3 79 27 96/52 (67) 98 08/26/20 12:00 Mechanical Ventilator 08/26/20 11:49 79 24 60 Intake and Output 08/26/20 08/27/20 19:00 07:00 Intake Total 1440 ml 1650 ml Output Total 500 ml Balance 1440 ml 1150 ml Intake Oral 480 ml Free Water 200 ml IV Total 680 ml 1180 ml Tube Feeding 80 ml 470 ml Output Urine Total 500 ml # Bowel Movements 1 Objective WDWN NAD awake chronically ill moderate breath sounds bilaterally without rhonchi [id number] NABS nontender GT no CCE nonfocal weak wounds noted Laboratory Tests 08/27/20 04:03: White Blood Count 8.1, Red Blood Count 2.76L, Hemoglobin 7.6L, Hematocrit 24.5L, Mean Corpuscular Volume 89, Mean Corpuscular Hemoglobin 27.5, Mean Corpuscular Hemoglobin Concent 31.0L, Red Cell Distribution Width 16.7H, Platelet Count 327, Mean Platelet Volume 5.3L, Neutrophils (%) (Auto) , Lymphocytes (%) (Auto) , Monocytes (%) (Auto) , Eosinophils (%) (Auto) , Basophils (%) (Auto) , Differential Total Cells Counted 100, Neutrophils % (Manual) 79H, Lymphocytes % (Manual) 10L, Monocytes % (Manual) 7, Eosinophils % (Manual) 4H, Basophils % (Manual) 0, Band Neutrophils 0, Platelet Estimate Adequate, Platelet Morphology Normal, Hypochromasia 2+, Anisocytosis 1+, Prothrombin Time 12.9H, Prothromb Time International Ratio 1.2H, Activated Partial Thromboplast Time 32, Sodium Level 140, Potassium Level 4.8, Chloride Level 110H, Carbon Dioxide Level 19L, Anion Gap 12, Blood Urea Nitrogen 69H, Creatinine 1.9H, Estimat Glomerular Filtration Rate 35.4, Glucose Level 72L, Calcium Level 8.8, Total Bilirubin 0.7, Aspartate Amino Transf (AST/SGOT) 53H, Alanine Aminotransferase (ALT/SGPT) 51, Alkaline Phosphatase 200H, Total Protein 5.8L, Albumin 0.9L, Globulin 4.9, Albumin/Globulin Ratio 0.2L Current Medications Medications (Trade) Dose Ordered Sig/Clive Route PRN Reason Start Time Stop Time Status Last Admin Dose Admin Acetaminophen (Tylenol) 650 mg Q4H PRN GT Temp >100.5 08/18/20 21:15 09/17/20 21:14 08/25/20 16:16 Amiodarone HCl (Cordarone) 200 mg DAILY GT 08/24/20 09:00 10/28/20 17:59 08/27/20 09:16 Ascorbic Acid (Vitamin C) 500 mg DAILY ORAL 08/17/20 16:00 09/16/20 15:59 08/27/20 09:16 Atorvastatin Calcium (Lipitor) 10 mg BEDTIME ORAL 08/26/20 21:00 11/24/20 20:59 08/26/20 21:09 Chlorhexidine Gluconate (Jennifer-Hex 2%) 1 applic DAILY@2000 TOPIC 07/17/20 20:00 10/15/20 19:59 08/26/20 21:08 Epoetin Tino (Epoetin Tino-EPBX(NON ESRD)) 2,000 unit SUBQ 08/25/20 21:00 11/23/20 20:59 08/25/20 21:41 Epoetin Tino (Epoetin Tino-EPBX(NON ESRD)) 3,000 unit SUBQ 08/25/20 21:00 11/23/20 20:59 08/25/20 21:41 Famotidine (Pepcid) 20 mg Q12HR GT 07/16/20 21:00 10/14/20 20:59 08/27/20 09:16 Finasteride (Proscar) 5 mg DAILY ORAL 07/15/20 09:00 10/13/20 08:59 08/27/20 09:17 Hydralazine HCl (Apresoline) 25 mg Q6H PRN GT SBP above 150 07/24/20 23:30 10/22/20 23:29 07/26/20 05:22 Levetiracetam (Keppra) 1,000 mg Q12HR ORAL 08/22/20 09:07 10/06/20 09:06 08/27/20 09:17 Lorazepam (Ativan 2mg/ml 1ml) 1 mg Q1H PRN IV For Seizures 08/26/20 01:30 09/02/20 01:29 08/26/20 01:39 Meropenem 1 gm/ Sodium Chloride 55 ml @ 110 mls/hr Q12HR IVPB 08/25/20 09:00 08/30/20 08:59 08/27/20 09:16 Metoclopramide HCl (Reglan) 5 mg Q6H IVP 08/21/20 22:00 09/20/20 21:59 08/27/20 04:07 Metoprolol Tartrate (Lopressor) 100 mg Q12HR ORAL 08/13/20 09:00 11/11/20 08:59 08/27/20 09:16 Multivitamins (Multivitamins) 1 tab DAILY ORAL 08/17/20 16:00 09/16/20 15:59 08/27/20 09:17 Sodium Hypochlorite (Dakin's Half Strength) 1 applic DAILY TOPIC 08/19/20 16:30 09/18/20 16:29 08/27/20 09:18 Sodium Chloride 550 ml @ 125 mls/hr Q4H24M IV 08/24/20 18:00 09/23/20 17:59 08/27/20 07:36 Assessment/Plan Assessment/Plan Impression: Healthcare-associated pneumonia Acute respiratory failure with hypoxia Tracheostomy status Pleural effusion, left-recurrent s/p tap Decubitus ulcers Urinary tract infection Anemia S/p previous Craniotomy, RCA occlusion, BOW STAPLER shunt Seizure history GERD, dysphagia s/p GJ tube h/o Hypertension h/o Atrial fibrillation Previous DVT and Pulmonary Embolism, hypernatremia bacteremia acidemia Plan events reviewed maintain vent on antibiotics bolus fluids as needed pressors as needed ID noted CXR improved monitor HH for change J tube feeds monitor oxygen needs nebs as needed Wound care Cardiology follow up BUNDLE SHAKER Medications dc planning on hold- reassess for stability of vitals and respiratory status orders reviewed and discussed impression, plan, and exam edited and reviewed in detail care discussed with Nikita Arreola MD Aug 27, 2020 09:49
--- NOTE | 2020-08-27 10:13 | NUR ---
CASE MANAGEMENT:REVIEW 08/27/20 SI: PNA. UTI. BACTEREMIA.PLEURAL EFFUSION 99.0 105 29 114/45 98% ON VENT SUPPORT W/60% FIO2 VIA TRACH H/H-7.6/24.5 BUN+69 CR+1.9 IS: IV MEROPENEM Q12 IVF@125/HR AMIODARONE GT QD KEPPRA GT Q12 IV REGLAN Q6HRS EPOETIN SQ MWF : NOW ON STEP DOWN UNIT DCP: REFERRED TO JOVON FINCH
--- NOTE | 2020-08-27 10:56 | Infectious Diseases Prog Note ---
"Assessment/Plan Assessment/Plan antibiotics : meropenem A 1. pseudomonas | proteus pneumonia. COVID19 test is negative. 2. proteus | providencia sepsis 3. pseudomonas UTI 4. Hypertension. 5. Atrial fibrillation 6. respiratory failure s/p tracheostomy 7. pleural effusion s/p thoracentesis 8. renal failure P 1. continue meropenem 3 more days 2. will follow up cultures Subjective ROS Limited/Unobtainable: Yes Allergies: Coded Allergies: No Known Allergies (Unverified , 11/02/19) Objective Last 24 Hour Vital Signs Date Time Temp Pulse Resp B/P (MAP) Pulse Ox O2 Delivery O2 Flow Rate FiO2 08/27/20 09:16 88 129/54 08/27/20 08:00 97.8 88 22 129/54 (79) 99 08/27/20 07:31 87 08/27/20 04:00 Mechanical Ventilator 08/27/20 04:00 60 08/27/20 04:00 83 08/27/20 04:00 97.6 81 24 101/57 (72) 98 08/27/20 03:11 86 25 60 08/27/20 00:00 97.5 83 24 95/51 (66) 99 08/27/20 00:00 Mechanical Ventilator 08/27/20 00:00 60 08/27/20 00:00 82 08/26/20 23:08 81 27 60 08/26/20 21:10 97 113/68 08/26/20 20:00 99.0 90 24 107/51 (69) 99 08/26/20 20:00 89 08/26/20 20:00 Mechanical Ventilator 08/26/20 20:00 60 08/26/20 19:14 92 25 60 08/26/20 16:00 60 08/26/20 16:00 Mechanical Ventilator 08/26/20 16:00 98.4 80 24 96/53 (67) 98 08/26/20 15:54 80 08/26/20 15:26 80 24 60 08/26/20 12:41 79 08/26/20 12:00 60 08/26/20 12:00 99.3 79 27 96/52 (67) 98 08/26/20 12:00 Mechanical Ventilator 08/26/20 11:49 79 24 60 Height (Feet): 5 Height (Inches): 4.00 Weight (Pounds): 171 HEENT: status post trach Respiratory/Chest: lungs clear Cardiovascular: normal rate, regular rhythm, no gallop/murmur Abdomen: soft, non tender, other - GT Extremities: no edema Laboratory Tests Test 08/27/20 04:03 White Blood Count 8.1 K/UL (4.8-10.8) Red Blood Count 2.76 M/UL (4.70-6.10) L Hemoglobin 7.6 G/DL (14.2-18.0) L Hematocrit 24.5 % (42.0-52.0) L Mean Corpuscular Volume 89 FL (80-99) Mean Corpuscular Hemoglobin 27.5 PG (27.0-31.0) Mean Corpuscular Hemoglobin Concent 31.0 G/DL (32.0-36.0) L Red Cell Distribution Width 16.7 % (11.6-14.8) H Platelet Count 327 K/UL (150-450) Mean Platelet Volume 5.3 FL (6.5-10.1) L Neutrophils (%) (Auto) % (45.0-75.0) Lymphocytes (%) (Auto) % (20.0-45.0) Monocytes (%) (Auto) % (1.0-10.0) Eosinophils (%) (Auto) % (0.0-3.0) Basophils (%) (Auto) % (0.0-2.0) Differential Total Cells Counted 100 Neutrophils % (Manual) 79 % (45-75) H Lymphocytes % (Manual) 10 % (20-45) L Monocytes % (Manual) 7 % (1-10) Eosinophils % (Manual) 4 % (0-3) H Basophils % (Manual) 0 % (0-2) Band Neutrophils 0 % (0-8) Platelet Estimate Adequate Platelet Morphology Normal Hypochromasia 2+ Anisocytosis 1+ Prothrombin Time 12.9 SEC (9.30-11.50) H Prothromb Time International Ratio 1.2 (0.9-1.1) H Activated Partial Thromboplast Time 32 SEC (23-33) Sodium Level 140 MMOL/L (136-145) Potassium Level 4.8 MMOL/L (3.5-5.1) Chloride Level 110 MMOL/L (98-107) H Carbon Dioxide Level 19 MMOL/L (21-32) L Anion Gap 12 mmol/L (5-15) Blood Urea Nitrogen 69 mg/dL (7-18) H Creatinine 1.9 MG/DL (0.55-1.30) H Estimat Glomerular Filtration Rate 35.4 mL/min (>60) Glucose Level 72 MG/DL (74-106) L Calcium Level 8.8 MG/DL (8.5-10.1) Total Bilirubin 0.7 MG/DL (0.2-1.0) Aspartate Amino Transf (AST/SGOT) 53 U/L (15-37) H Alanine Aminotransferase (ALT/SGPT) 51 U/L (12-78) Alkaline Phosphatase 200 U/L (46-116) H Total Protein 5.8 G/DL (6.4-8.2) L Albumin 0.9 G/DL (3.4-5.0) L Globulin 4.9 g/dL Albumin/Globulin Ratio 0.2 (1.0-2.7) L Current Medications Medications (Trade) Dose Ordered Sig/Clive Route PRN Reason Start Time Stop Time Status Last Admin Dose Admin Acetaminophen (Tylenol) 650 mg Q4H PRN GT Temp >100.5 08/18/20 21:15 09/17/20 21:14 08/25/20 16:16 Amiodarone HCl (Cordarone) 200 mg DAILY GT 08/24/20 09:00 10/28/20 17:59 08/27/20 09:16 Ascorbic Acid (Vitamin C) 500 mg DAILY ORAL 08/17/20 16:00 09/16/20 15:59 08/27/20 09:16 Atorvastatin Calcium (Lipitor) 10 mg BEDTIME ORAL 08/26/20 21:00 11/24/20 20:59 08/26/20 21:09 Chlorhexidine Gluconate (Jennifer-Hex 2%) 1 applic DAILY@1999 TOPIC 07/17/20 20:00 10/15/20 19:59 08/26/20 21:08 Epoetin Tino (Epoetin Tino-EPBX(NON ESRD)) 2,000 unit TUE-TUE-TUE SUBQ 08/25/20 21:00 11/23/20 20:59 08/25/20 21:41 Epoetin Tino (Epoetin Tino-EPBX(NON ESRD)) 3,000 unit TUE-TUE-TUE SUBQ 08/25/20 21:00 11/23/20 20:59 08/25/20 21:41 Famotidine (Pepcid) 20 mg Q12HR GT 07/16/20 21:00 10/14/20 20:59 08/27/20 09:16 Finasteride (Proscar) 5 mg DAILY ORAL 07/15/20 09:00 10/13/20 08:59 08/27/20 09:17 Hydralazine HCl (Apresoline) 25 mg Q6H PRN GT SBP above 150 07/24/20 23:30 10/22/20 23:29 07/26/20 05:22 Levetiracetam (Keppra) 1,000 mg Q12HR ORAL 08/22/20 09:07 10/06/20 09:06 08/27/20 09:17 Lorazepam (Ativan 2mg/ml 1ml) 1 mg Q1H PRN IV For Seizures 08/26/20 01:30 09/02/20 01:29 08/26/20 01:39 Meropenem 1 gm/ Sodium Chloride 55 ml @ 110 mls/hr Q12HR IVPB 08/25/20 09:00 08/30/20 08:59 08/27/20 09:16 Metoclopramide HCl (Reglan) 5 mg Q6H IVP 08/21/20 22:00 09/20/20 21:59 08/27/20 10:37 Metoprolol Tartrate (Lopressor) 100 mg Q12HR ORAL 08/13/20 09:00 11/11/20 08:59 08/27/20 09:16 Multivitamins (Multivitamins) 1 tab DAILY ORAL 08/17/20 16:00 09/16/20 15:59 08/27/20 09:17 Sodium Hypochlorite (Dakin's Half Strength) 1 applic DAILY TOPIC 08/19/20 16:30 09/18/20 16:29 08/27/20 09:18 Sodium Chloride 550 ml @ 125 mls/hr Q4H24M IV 08/24/20 18:00 09/23/20 17:59 08/27/20 07:36 Kristie Reina MD Aug 27, 2020 10:56"
[2020-08-27 12:18] VITALS: BP 99/61
--- NOTE | 2020-08-27 12:36 | General Progress Note ---
Subjective Allergies: Coded Allergies: No Known Allergies (Unverified , 11/02/19) Subjective seen earlier today doing poorly periods of Hypotension today Objective Last 24 Hour Vital Signs Date Time Temp Pulse Resp B/P (MAP) Pulse Ox O2 Delivery O2 Flow Rate FiO2 08/27/20 12:18 99.6 81 26 99/61 (74) 97 08/27/20 11:00 81 25 40 08/27/20 09:16 88 129/54 08/27/20 09:00 77 26 40 08/27/20 08:00 97.8 88 22 129/54 (79) 99 08/27/20 07:31 87 08/27/20 07:10 87 27 40 08/27/20 04:00 Mechanical Ventilator 08/27/20 04:00 60 08/27/20 04:00 83 08/27/20 04:00 97.6 81 24 101/57 (72) 98 08/27/20 03:11 86 25 60 08/27/20 00:00 97.5 83 24 95/51 (66) 99 08/27/20 00:00 Mechanical Ventilator 08/27/20 00:00 60 08/27/20 00:00 82 08/26/20 23:08 81 27 60 08/26/20 21:10 97 113/68 08/26/20 20:00 99.0 90 24 107/51 (69) 99 08/26/20 20:00 89 08/26/20 20:00 Mechanical Ventilator 08/26/20 20:00 60 08/26/20 19:14 92 25 60 08/26/20 16:00 60 08/26/20 16:00 Mechanical Ventilator 08/26/20 16:00 98.4 80 24 96/53 (67) 98 08/26/20 15:54 80 08/26/20 15:26 80 24 60 08/26/20 12:41 79 Intake and Output 08/26/20 08/27/20 19:00 07:00 Intake Total 1440 ml 1650 ml Output Total 500 ml Balance 1440 ml 1150 ml Intake Oral 480 ml Free Water 200 ml IV Total 680 ml 1180 ml Tube Feeding 80 ml 470 ml Output Urine Total 500 ml # Bowel Movements 1 Laboratory Tests 08/27/20 04:03: White Blood Count 8.1, Red Blood Count 2.76L, Hemoglobin 7.6L, Hematocrit 24.5L, Mean Corpuscular Volume 89, Mean Corpuscular Hemoglobin 27.5, Mean Corpuscular Hemoglobin Concent 31.0L, Red Cell Distribution Width 16.7H, Platelet Count 327, Mean Platelet Volume 5.3L, Neutrophils (%) (Auto) , Lymphocytes (%) (Auto) , Monocytes (%) (Auto) , Eosinophils (%) (Auto) , Basophils (%) (Auto) , Differential Total Cells Counted 100, Neutrophils % (Manual) 79H, Lymphocytes % (Manual) 10L, Monocytes % (Manual) 7, Eosinophils % (Manual) 4H, Basophils % (Manual) 0, Band Neutrophils 0, Platelet Estimate Adequate, Platelet Morphology Normal, Hypochromasia 2+, Anisocytosis 1+, Prothrombin Time 12.9H, Prothromb Time International Ratio 1.2H, Activated Partial Thromboplast Time 32, Sodium Level 140, Potassium Level 4.8, Chloride Level 110H, Carbon Dioxide Level 19L, Anion Gap 12, Blood Urea Nitrogen 69H, Creatinine 1.9H, Estimat Glomerular Filtration Rate 35.4, Glucose Level 72L, Calcium Level 8.8, Total Bilirubin 0.7, Aspartate Amino Transf (AST/SGOT) 53H, Alanine Aminotransferase (ALT/SGPT) 51, Alkaline Phosphatase 200H, Total Protein 5.8L, Albumin 0.9L, Globulin 4.9, Albumin/Globulin Ratio 0.2L Height (Feet): 5 Height (Inches): 4.00 Weight (Pounds): 171 Objective Eldely WM NCAT (+) trach , T tube Coarse BS RRR abd soft (+) GT ext no edema Assessment/Plan Status: stable, progressing Assessment/Plan: Assessment - Abnormal LFT - UGIB - resolved - Anemia, s/p transfusion - hypotension - h/o PUD - resp failure, s/p trach - dysphagia, s/p PEG - atrial fibrillation - h/o DVT - hypernatremia - loose BM - decubitus ulcers - poor prognosis Recommendations - follow LFT - H2B BID indefinitely - vital AF 1.2 at 70 - protein supplements - TID - MVI - Vitamin C - free water - follow H&H - monitor BM (DELAYED ENTRY - Note for 04/25/2021 visit) Akiko Rai MD Aug 27, 2020 12:36
--- NOTE | 2020-08-27 13:06 | Surgery Progress Note ---
Surgery Progress Note Subjective Additional Comments no acute events Objective Last 24 Hour Vital Signs Date Time Temp Pulse Resp B/P (MAP) Pulse Ox O2 Delivery O2 Flow Rate FiO2 08/27/20 12:18 99.6 81 26 99/61 (74) 97 08/27/20 12:00 80 08/27/20 12:00 40 08/27/20 12:00 Mechanical Ventilator 08/27/20 11:00 81 25 40 08/27/20 09:16 88 129/54 08/27/20 09:00 77 26 40 08/27/20 08:00 97.8 88 22 129/54 (79) 99 08/27/20 08:00 40 08/27/20 08:00 Mechanical Ventilator 08/27/20 07:31 87 08/27/20 07:10 87 27 40 08/27/20 04:00 Mechanical Ventilator 08/27/20 04:00 60 08/27/20 04:00 83 08/27/20 04:00 97.6 81 24 101/57 (72) 98 08/27/20 03:11 86 25 60 08/27/20 00:00 97.5 83 24 95/51 (66) 99 08/27/20 00:00 Mechanical Ventilator 08/27/20 00:00 60 08/27/20 00:00 82 08/26/20 23:08 81 27 60 08/26/20 21:10 97 113/68 08/26/20 20:00 99.0 90 24 107/51 (69) 99 08/26/20 20:00 89 08/26/20 20:00 Mechanical Ventilator 08/26/20 20:00 60 08/26/20 19:14 92 25 60 08/26/20 16:00 60 08/26/20 16:00 Mechanical Ventilator 08/26/20 16:00 98.4 80 24 96/53 (67) 98 08/26/20 15:54 80 08/26/20 15:26 80 24 60 I&O Intake and Output 08/26/20 08/27/20 19:00 07:00 Intake Total 1440 ml 1650 ml Output Total 500 ml Balance 1440 ml 1150 ml Intake Oral 480 ml Free Water 200 ml IV Total 680 ml 1180 ml Tube Feeding 80 ml 470 ml Output Urine Total 500 ml # Bowel Movements 1 Dressing: other Wound: other Cardiovascular: RSR Respiratory: decreased breath sounds Abdomen: soft, non-tender, present bowel sounds, non-distended Extremities: no tenderness, no cyanosis Laboratory Tests Test 08/27/20 04:03 White Blood Count 8.1 K/UL (4.8-10.8) Red Blood Count 2.76 M/UL (4.70-6.10) L Hemoglobin 7.6 G/DL (14.2-18.0) L Hematocrit 24.5 % (42.0-52.0) L Mean Corpuscular Volume 89 FL (80-99) Mean Corpuscular Hemoglobin 27.5 PG (27.0-31.0) Mean Corpuscular Hemoglobin Concent 31.0 G/DL (32.0-36.0) L Red Cell Distribution Width 16.7 % (11.6-14.8) H Platelet Count 327 K/UL (150-450) Mean Platelet Volume 5.3 FL (6.5-10.1) L Neutrophils (%) (Auto) % (45.0-75.0) Lymphocytes (%) (Auto) % (20.0-45.0) Monocytes (%) (Auto) % (1.0-10.0) Eosinophils (%) (Auto) % (0.0-3.0) Basophils (%) (Auto) % (0.0-2.0) Differential Total Cells Counted 100 Neutrophils % (Manual) 79 % (45-75) H Lymphocytes % (Manual) 10 % (20-45) L Monocytes % (Manual) 7 % (1-10) Eosinophils % (Manual) 4 % (0-3) H Basophils % (Manual) 0 % (0-2) Band Neutrophils 0 % (0-8) Platelet Estimate Adequate Platelet Morphology Normal Hypochromasia 2+ Anisocytosis 1+ Prothrombin Time 12.9 SEC (9.30-11.50) H Prothromb Time International Ratio 1.2 (0.9-1.1) H Activated Partial Thromboplast Time 32 SEC (23-33) Sodium Level 140 MMOL/L (136-145) Potassium Level 4.8 MMOL/L (3.5-5.1) Chloride Level 110 MMOL/L (98-107) H Carbon Dioxide Level 19 MMOL/L (21-32) L Anion Gap 12 mmol/L (5-15) Blood Urea Nitrogen 69 mg/dL (7-18) H Creatinine 1.9 MG/DL (0.55-1.30) H Estimat Glomerular Filtration Rate 35.4 mL/min (>60) Glucose Level 72 MG/DL (74-106) L Calcium Level 8.8 MG/DL (8.5-10.1) Total Bilirubin 0.7 MG/DL (0.2-1.0) Aspartate Amino Transf (AST/SGOT) 53 U/L (15-37) H Alanine Aminotransferase (ALT/SGPT) 51 U/L (12-78) Alkaline Phosphatase 200 U/L (46-116) H Total Protein 5.8 G/DL (6.4-8.2) L Albumin 0.9 G/DL (3.4-5.0) L Globulin 4.9 g/dL Albumin/Globulin Ratio 0.2 (1.0-2.7) L Plan Problems: (1) Decubitus skin ulcer Assessment & Plan: Pt was discharged 08/15/20 and readmitted same day. Pt presented with [employer] Shunt,Tracheostomy , GT and Multiple Pressure Injuries and contractures. Small amt exudate that is of Sanguineous mixed with Formula noted from GT. Mild excoriation noted to Peristomal GT site. Full Thickness Sacral Pressure Injury (L)10.5cm x (W)8.3cm x (D)1.5cm, Undermining clockwise 9-2 by 1.3cm @10'oclock. Base of wound is 90% granular 10% necrotic. NO odor noted. Small amt serosanguineous exudate noted.Periwound is erythematous and indurated. No changes in skin temp noted. Full Thickness Pressure Injury Outer L Lower Quadrant of Buttocks.(L)5.5cm x (W)7cm x (D)1.5cm, Undermining clockwise 9-3 by 4.5cm @12o'clock, Tunneled area within base of wound by 5.5cm @ 1-2o'clock. Base of wound is 85% % moist and pink ,15% necrotic at base at undermined area of wound. Bone exposure noted. Small amt serosanguineous exudate noted. Periwound is erythematous and indurated. No odor noted. Full thickness Pressure Injury L Ischium(L)2cm x (W)0.9cm x (D)0.3cm. Base of wound is moist, and pink. Edges are adherent to base of wound. Periwound is m aroon and indurated. NO changes in skin temp periwound. NO odor noted. Non-Blanchable erythema without induration noted to R Hip /R trochanteric.. Full Thickness Pressure Injury lateral L Tibia(L)21.5cm x (W)3.5cm x (D)0.2cm. Base of wound is 95% granular,5% necrosis along borders. Edges are adherent to base of wound . Moderate amt sanguineous exudate noted. No odor noted.Periwound skin colour is darker than is normal tone but without erythema or induration. Full thickness Pressure Injury L Heel extending into Plantar aspect of heel(L)8.7cm x (W)6.5cm x(D)0.6cm.Base of wound is 60% beefy granulation,40% necrotic. Bone is palpable. (+) Epibole at proximal borders of wound in close proximity with achilles. Small amt haemopurulent exudate noted. Wound is malodo kitty. Periwound is dusky and indurated. Full Thickness Pressure Injury Lateral L Foot (L)1.9cm x (W)3.4cm x (D)0.3cm, undermining clockwise 9-3 by 0.2cm @9o'clock. Base of wound is 10% necrotic 90% antonio. Wound is malodorous. Edges are macerate with scattered areas of necrosis along edges. Small amt haemopurulent exudate noted.Periwound is fluctuant and dusky. Full Thickness Pressure Injury distal/lateral L foot(L)1.3cm x (W)3.7cm x (D)0.2cm. Base of wound is 80% soft necrosis,20% moist and pink. edges are macerated. Wound is malodorous. Small amt brown exudate noted . Periwound is dusky and fluctuant. Unstageable Pressure injury dorsal L foot (L)1cm x (W)0.9cm. Base of wound is 100% necrotic. Edges are erythematous and macerated. Periwound without erythema, induration or fluctuance. Full thickness Pressure Injury R Heel including plantar aspect of heel (L)8.7cm x (W)6.5cm x (D)0.6cm. Base of wound is 60% beefy granulation,40% necrotic. Bone exposure at base of wound. Moderate amt haemopurulent exudate. Wound is malodorous. Proximal edges of wound within close proximity with achilles is rolled. Edges are otherwise macerated. Periwound is fluctuant and dusky. Full Thickness Pressure Injury distal/lateral R foot (L)0.5cm x (W)0.6cm. Base of wound is 100% fibrinous slough. Erythematous borders. Periwound without induration or fluctuance. Small amt serous exudate noted. Tx.Plan: Wash GT site with Soap and Water. Pat dry. Apply Moisture Barrier Paste around Gt Daily. Leave open to Air. Cleanse Sacral wound, L buttocks, and L Ischia wounds with Dakin's 0.25% Kristel. Loosely pack wounds with Dakin's moistened Kerlix.Apply Triad Paste periwound. Cover with Optifoam drsgs Daily and prn. Cleanse wound Lateral L Tibia with Dakin's o.25% Kristel. Rinse with Saline. Apply Promogran moistened with Saline. Apply Moisture Barrier Paste along borders. Cover with ABD Pads. Wrap with Kerlix every Mon-Wed-Fri (NOTE: Wound Nurse to Aplpy Promogran) Cleanse wounds L Foot with Dakin's 0.25% Kristel. Apply Dakin's moistened Gauze to each wound. Apply Triad Paste along Borders of each wound. Cover with ABD Pads and wrap with Kerlix Daily and prn. Cleanse R Heel wound with Dakin's 0.25% Kristel. Apply Dakin's Moistened Gauze to wound. Apply Triad Paste Periwound. Cover with ABD Pad. Wrap with Kerlix Daily and prn. Reposition at least every 2hours or as tolerated. Place Pillow Between Knees. Off-load heels with 2 Pillows. APM/TERRIE Mattress overlay. Sacral wound,L Buttocks, L Ischial wounds cleansed with Dakin's and each wound loosely packed with Dakin's moistened Kerlix.Moisture Barrier Paste applied to borders of each wound and each wound covered with Optifoam drsgs. Perianal area noted to be red and excoriated. Moisture Barrier Paste applied to affected area. Drsgs to L tibia, L Heel and R Heel noted to be saturated and malodorous. Both lower ext washed with Chlorhexidine soap prior to providing wound care.Base of wound lateral L Tibia beefy red. Edges are adherent with an area of 5% necrosis distally. Small amt sanguineous exudate No erythema or changes in skin temp periwound. Wound Later L Tibia cleansed with Saline. Promogran applied to base of wound.Moisture Barrier Paste applied along borders. Covered with ABD pad. Wrapped with Kerlix. R and L Heel wounds cleansed Dakin's 0.25% kristel. Dakin's moistened gauze applied to each wound Moisture Barrier Paste applied to borders of each wound and each wound covered with Abd Pads and each heel wrapped with Kerlix drsgs. Skin under tracheal collar assessed and no evidence of skin breakdown noted. Peristomal Gt site is resolving, Skin is moist but pink.No new skin concerns noted. (2) Anemia Assessment & Plan: trend h/h prbc prn (3) UTI (urinary tract infection) (4) Pleural effusion, left Assessment & Plan: Ultrasound used to localize optimal puncture site. Sterile prepping and draping left chest. Local anesthesia with 1% lidocaine. Under real-time ultrasound guidance, puncture pleural space using thoracentesis needle. Stylet removed. Catheter placed to vacuum bottle suction. Total 1700 milliliters of fluid aspirated. Patient tolerated procedure well, without immediate complication. Findings: Followup sonography demonstrates small amount of residual pleural fluid. Impression: Successful ultrasound-guided thoracentesis, yielding 1700 milliliters of fluid Lungs: Hazy left lung attenuation could be due to consolidation, pulmonary edema; correlate with presentation. Retrocardiac atelectasis without or with consolidation. Pleural space: Small-moderate left pleural effusion with passive atelectasis. No pneumothorax. Heart: Unremarkable. No cardiomegaly. Mediastinum: Unremarkable. Bones/joints: No acute abnormality Tubes, lines and devices: Tracheostomy. Right upper extremity PICC tip in the mid SVC. IMPRESSION: 1. Tracheostomy. 2. Right upper extremity PICC tip in the mid SVC. 3. Small-moderate left pleural effusion with passive atelectasis. 4. Hazy left lung attenuation could be due to consolidation, pulmonary edema; correlate with presentation. 5. Retrocardiac atelectasis without or with consolidation. 6. Recommend CT chest with IV contrast to further characterize these findings. plan repeat thora (5) Malfunction of gastrostomy tube Assessment & Plan: DAILY ESTIMATED NEEDS: Needs based on Wounds, pulmonary/ 74.5kg 25-30 kcals/kg 5969-6107 total kcals 1.5-2 g protein/kg 111-149 g total protein 25-30 mL/kg 9173-8591 total fluid mLs NUTRITION DIAGNOSIS: * Swallowing difficulty R/T dysphagia, h/o craniotomy, respiratory failure as evidenced by pt on T-collar, GJ tube dependent. * Increased kcal/prot/micronutrients needs R/T wound healing as evidenced by pt admitted w/ multiple advanced wounds including full thickness wound x 7 and unstageable wounds x 2, refer to eval. CURRENT TF:Vital AF 1.2 @70ml/hr ENTERAL NUTRITION RECOMMENDATIONS: Vital AF 1.2 @ 65ml/hr x 24 hrs to provide 1560ml, 1872kcal, 117g prot, 1265ml free water * Lower goal rate to 65ml/hr x 24 hrs: meets 100% est kcal/prot needs * HOB over 30 degrees/ water flush 180ml q 6hrs without IVF ------ elemental TF formula of Vital AF not indicated, consider changing TF to Glucerna 1.2 @ 65ml/hr x 24 hrs + Prosource 1pkt TID to provide 1560ml, 1872kcal, 94g+ 33g prot, 1259ml free water ADDITIONAL RECOMMENDATIONS: * Calibrated bedscale wt * Wound Care: Con't Vit C 500mg BID, ZnSO4 220mg QD x 10 days add Stevie BID * Monitor lytes, replete as needed * DC D5 for improved BG control increase H2O flushes instead (Na now wnl, BUN elev) * Rec NISS (6) Acute respiratory failure with hypoxia (7) HCAP (healthcare-associated pneumonia) Deny Westflal Aug 27, 2020 13:06
--- NOTE | 2020-08-27 15:14 | NUR ---
NURSE NOTES: PLACED A TELEPHONE CALL TO DR BLOOD AND MADE AWARE AND NOTIFIED REGARDING PT HAS FEVER 102.2 AXILLARY,ALSO DR DOUGLAS IS AWARE AND NOTIFIED. PT MEDICATED WITH TYLENOL 650MG VIA GT AND APPLIED COOLING MEASURES. WILL CONT TO MONITOR.
--- NOTE | 2020-08-27 15:20 | NUR ---
NURSE NOTES: PLACED A TELEPHONE CALL TO DR GISELLE Schumacher AND MADE HER AWARE AND NOTIFIED REGARDING PT HAVING FEVER 102.2 AXILLARY. WILL CONT TO MONITOR.
[2020-08-27] MEDS: Acetaminophen 650mg/20.3ml GT PRN (15:39)
[2020-08-27 15:45] VITALS: BP 93/59
[2020-08-27] MEDS ORDERED: NS 500ML ONE (15:46)
--- NOTE | 2020-08-27 15:46 | NUR ---
NURSE NOTES:WOUND [id number] NOTES:Pt deconditioned-febrile during wound assessment. Unstageable Pressure Injury noted to L earlobe(L)0.5cm x (W)0.6cm.Base of wound is 90% slough,10% antonio. Small amt sanguineous exudate noted. Full Thickness Sacral Pressure Injury (L)10.5cm x (W)11cmx (D)1.5cm. Base of wound is 80% beefy granulation,20% necrotic. Small amt sanguineous exudate noted. Edges are erythematous with an area along borders that is indurated and Purpuric with surrounding non-blanchable erythema. Mild odor noted. Periwound is erythematous and macerated. Ful Thickness Pressure Injury outer LLQ of Buttocks(L)4.2cm x (W)6.7cm x (D)3.3cm,undermining 9-3 by by 5.6cm @10o'clock. Base of wound is pink moist;bone exposure noted with necrotic tunneling under bone of (L)5.5cm at approximately clockwise 1-2o'clock within base of wound. Wound is malodorous with moderate amt. purulent exudate noted. Edges and periwound are indurated,erythematous and macerated. Full Thickness Pressure Injury L Ischium(L)3cm x (W)0.7cm . Base of wound is moist with 50% Biofilm. Edges and periwound are erythematous and macerated. No exudate noted. Scrotum is erythematous and denuded. Full Thickness Pressure Injury Lateral L tibia to Lateral Malleolus(L)26cm x (W)3.5cm. Base of wound is 90% Beefy red,10% necrotic at distal aspect of wound. In addition, the distal borders and immediate periwound noted to be indurated and purpuric with surrounding erythema. Edges are otherwise adherent to base of wound. Moderate amt bloody exudate noted from wound. Mild odor noted. L foot cold to touch and blanched. Full thickness wound L Heel old drsg and packing noted to be saturated with green exudate and is grossly malodorous.Wound extends from heel well into plantar aspect of heel(L)12.6cm x (W)8.5cm x (D)0.8cm. Base of wound is 50% mixed necrosis and green slough,50% antonio with bone and tendon exposure. In addition,a newly purpuric and fluctuant area noted from borders in the space between wound L lateral tibial/malleolus wound. Full thickness wound lateral L foot (L)2.3cm x (W)4cm. Base of wound is 90% soft necrosis,10% antonio and is malodorous . Edges are erythematous with an area that is purplish/red and fluctuant noted in space between lateral and distal/lateral wounds. Moderate amt green exudate noted. Full Thickness Wound distal/lateral L foot that is grossly malodorous (L)1.5cm x (W)4.4cm. Base of wound is 95% soft necrosis,5% antonio and moist. Edges are erythematous. Periwound is erythematous and fluctuant.(see above doc.)Small amt brown exudate noted. Wound medial/dorsal L foot(L)1.5cm x (W)1.4cm. Base of wound is 100% necrotic. Edges are erythematous. periwound is pale in colour. Wound medial L malleolus (L)0.8cm x (W)0.7cm. Base of wound is 75% slough,25% pale pink and moist. Edges are macerated. Small amt seropurulent exudate noted. NO odor noted. R foot cold and pale. R Heel old drsg also noted to be saturated with green exudate and was grossly malodorous. Full Thickness wound R Heel extending well into plantar aspect of heel (L)14cm x (W)8.3cm x (D)1cm. Base of wound is 60% mixed necrosis and green slough,40% beefy red. Bone and tendon exposure at base of wound. (+) Epibole along proximal borders of wound, edges are otherwise macerated. updated on wounds.Orders received to discontinue Promogran to lateral L tibial wound and apply Dakin's moist gauze to all wounds.All wound prevention protocols continued as care-planned.
--- NOTE | 2020-08-27 18:00 | NUR ---
NURSE NOTES: PLACED A TELEPHONE CALL TO DR DOUGLAS AND MADE AWARE AND NOTIFIED REGARDING HGB 7.6. NO NEW ORDERS NOTED AT THIS TIME. WILL CONT TO MONITOR.
--- NOTE | 2020-08-27 19:24 | NUR ---
NURSE HAND-OFF REPORT: Important Events on Shift: Patient Status: Diet: Pending Orders: Pending Results/Labs: Pending MD notification: Latest Vital Signs: Temperature 100.8 , Pulse 80 , B/P 93 /59 , Respiratory Rate 24 , O2 SAT 95 , Trach Collar, O2 Flow Rate 10.0 . Vital Sign Comment: EKG Rhythm: Sinus Rhythm Rhythm change?: N MD Notified?: Nadine Mak and Quita VALDEZ Response: Message left await call Latest Ramirez Fall Score: 70 Fall Risk: High Risk Safety Measures: Call light Within Reach, Bed Alarm Zone 1, Side Rails Side Rails x3, Bed position Low and Locked. Fall Precautions: Yellow Socks Patient Fall Education Report given to .KAYLA SMALLWOOD.
--- NOTE | 2020-08-27 19:25 | NUR ---
NURSE NOTES: Received report from SELIN Gee. Upon assessment pt appears obtunded; non responsive to verbal/tactile stimuli. Brisk pupils. Hypotensive 97/53. Afebrile. 5-lead EKG shows SR 80 BPM. Saturating 100% on prescribed vent settings of AC 24 / Vt 500 / 40% fio2 Diminished lung sounds auscultated throughout. G-tube with 40 mL residual running Vital AF at 50mL. HOB elevated. [place] draining well to gravity. Rectal tube draining to gravity. Bed kept in lowest and locked position. Bed alarm on. Side rails up x3. Will monitor.
[2020-08-27 20:00] VITALS: BP 88/51
--- NOTE | 2020-08-27 20:30 | NUR ---
NURSE NOTES: D/w Dr. Westfall in regards to plan for repeat Thoracentesis since need to obtain consent. Per MD he will review in AM.
--- NOTE | 2020-08-27 21:00 | NUR ---
NURSE NOTES: D/w Dr. Devlin in regards to HCO3 of 17.5 - if he'd like to cover. Per MD, repeat ABG in AM. Will monitor.
[2020-08-27] MEDS: Dyna-Hex 2% Top Sol 2oz TOPIC SCH (21:16)
[2020-08-27] MEDS: Epoetin Alfa-EPBX (NON ESRD) 3000 units/ml vial SUBQ SCH (21:16)
[2020-08-27] MEDS: Epoetin Alfa-EPBX (NON ESRD) 2000 units/ml vial SUBQ SCH (21:16)
--- NOTE | 2020-08-27 22:30 | General Progress Note ---
Subjective Allergies: Coded Allergies: No Known Allergies (Unverified , 11/02/19) Subjective seen earlier today doing poorly now febrile Objective Last 24 Hour Vital Signs Date Time Temp Pulse Resp B/P (MAP) Pulse Ox O2 Delivery O2 Flow Rate FiO2 08/27/20 21:00 81 97/53 08/27/20 20:00 98.1 80 24 88/51 (63) 100 08/27/20 20:00 81 08/27/20 19:03 80 24 40 08/27/20 16:09 100.8 08/27/20 16:00 Mechanical Ventilator 08/27/20 16:00 40 08/27/20 16:00 88 08/27/20 15:45 102.2 89 24 93/59 (70) 95 08/27/20 15:00 87 28 40 08/27/20 12:18 99.6 81 26 99/61 (74) 97 08/27/20 12:00 80 08/27/20 12:00 40 08/27/20 12:00 Mechanical Ventilator 08/27/20 11:00 81 25 40 08/27/20 09:16 88 129/54 08/27/20 09:00 77 26 40 08/27/20 08:00 97.8 88 22 129/54 (79) 99 08/27/20 08:00 40 08/27/20 08:00 Mechanical Ventilator 08/27/20 07:31 87 08/27/20 07:10 87 27 40 08/27/20 04:00 Mechanical Ventilator 08/27/20 04:00 60 08/27/20 04:00 83 08/27/20 04:00 97.6 81 24 101/57 (72) 98 08/27/20 03:11 86 25 60 08/27/20 00:00 97.5 83 24 95/51 (66) 99 08/27/20 00:00 Mechanical Ventilator 08/27/20 00:00 60 08/27/20 00:00 82 08/26/20 23:08 81 27 60 Intake and Output 08/26/20 08/27/20 19:00 07:00 Intake Total 1440 ml 1700 ml Output Total 500 ml Balance 1440 ml 1200 ml Intake Oral 480 ml Free Water 200 ml IV Total 680 ml 1180 ml Tube Feeding 80 ml 520 ml Output Urine Total 500 ml # Bowel Movements 1 Laboratory Tests 08/27/20 04:03: White Blood Count 8.1, Red Blood Count 2.76L, Hemoglobin 7.6L, Hematocrit 24.5L, Mean Corpuscular Volume 89, Mean Corpuscular Hemoglobin 27.5, Mean Corpuscular H emoglobin Concent 31.0L, Red Cell Distribution Width 16.7H, Platelet Count 327, Mean Platelet Volume 5.3L, Neutrophils (%) (Auto) , Lymphocytes (%) (Auto) , Monocytes (%) (Auto) , Eosinophils (%) (Auto) , Basophils (%) (Auto) , Differential Total Cells Counted 100, Neutrophils % (Manual) 79H, Lymphocytes % (Manual) 10L, Monocytes % (Manual) 7, Eosinophils % (Manual) 4H, Basophils % (Manual) 0, Band Neutrophils 0, Platelet Estimate Adequate, Platelet Morphology Normal, Hypochromasia 2+, Anisocytosis 1+, Prothrombin Time 12.9H, Prothromb Time International Ratio 1.2H, Activated Partial Thromboplast Time 32, Sodium Level 140, Potassium Level 4.8, Chloride Level 110H, Carbon Dioxide Level 19L, Anion Gap 12, Blood Urea Nitrogen 69H, Creatinine 1.9H, Estimat Glomerular Filtration Rate 35.4, Glucose Level 72L, Calcium Level 8.8, Total Bilirubin 0.7, Aspartate Amino Transf (AST/SGOT) 53H, Alanine Aminotransferase (ALT/SGPT) 51, Alkaline Phosphatase 200H, Total Protein 5.8L, Albumin 0.9L, Globulin 4.9, Albumin/Globulin Ratio 0.2L Height (Feet): 5 Height (Inches): 4.00 Weight (Pounds): 171 Objective Eldely WM NCAT (+) trach , T tube Coarse BS RRR abd soft (+) GT ext no edema Assessment/Plan Status: stable, progressing Assessment/Plan: Assessment - Abnormal LFT - due to meds (statin, amio) vs sepsis - UGIB - resolved - Anemia, s/p transfusion - hypotension - h/o PUD - resp failure, s/p trach - dysphagia, s/p PEG - atrial fibrillation, low albumin - h/o DVT - hypernatremia - loose BM - decubitus ulcers - poor prognosis Recommendations - follow LFT - check C diff, given fever - H2B BID indefinitely - increase TF to vital AF 1.2 at 80 - protein supplements - TID - MVI - Vitamin C - free water - follow H&H - monitor BM Akiko Rai MD Aug 27, 2020 22:30
[2020-08-28] VITALS: BP 103/53
--- NOTE | 2020-08-28 00:04 | NUR ---
NURSE NOTES: Attempt to wean fiO2 with RT at bedside. No cardiopulmonary distress noted. BP 103/54. C.diff collected and sent to lab per Dr. Rai orders. Will monitor.
--- NOTE | 2020-08-28 02:00 | NUR ---
NURSE NOTES: Residual of 110mL with 50mL gt. Titrate feeding down to 40 mL. Will monitor.
[2020-08-28] MEDS: Metoclopramide 10mg/2ml Inj IVP SCH ×4 (03:50→22:15)
[2020-08-28 04:00] VITALS: BP_SYST 88; BP_SYST 98; BP_DIAS 44
[2020-08-28 04:37] LABS: HEMATOCRIT 25.4 % (42.0-52.0); HEMOGLOBIN 7.8 G/DL (14.2-18.0); MEAN CORPUSCULAR VOLUME 90 FL (80-99); PLATELET COUNT 311 K/UL (150-450); RED BLOOD COUNT 2.84 M/UL (4.70-6.10); RED CELL DISTRIBUTION WIDTH 17.2 % (11.6-14.8); WHITE BLOOD COUNT 7.8 K/UL (4.8-10.8)
[2020-08-28 04:53] LABS: ALBUMIN 0.8 G/DL (3.4-5.0); ALBUMIN/GLOBULIN RATIO 0.2 (1.0-2.7); BILIRUBIN,TOTAL 0.7 MG/DL (0.2-1.0); CALCIUM 9.2 MG/DL (8.5-10.1); POTASSIUM 4.7 MMOL/L (3.5-5.1)
--- NOTE | 2020-08-28 07:04 | NUR ---
NURSE HAND-OFF REPORT: Important Events on Shift: PENDING CDIFF / ABGs / THORACENTESIS / HYPOTENSION PRN. Patient Status: Stable Diet: Vital AF Pending Orders: Y Pending Results/Labs: Y Pending notification: Y Latest Vital Signs: Temperature 98.1 , Pulse 80 , B/P 98 /44 , Respiratory Rate 13 , O2 SAT 100 , Trach Collar, O2 Flow Rate 10.0 . Vital Sign Comment: Hypotensive EKG Rhythm: Sinus Rhythm Rhythm change?: N MD Notified?: Nadine Mak and Quita VALDEZ Response: Message left await call Latest Ramirez Fall Score: 70 Fall Risk: High Risk Safety Measures: Call light Within Reach, Bed Alarm Zone 1, Side Rails Side Rails x3, Bed position Low and Locked. Fall Precautions: Yellow Socks Patient Fall Education Report given to SELIN Gee.
--- NOTE | 2020-08-28 07:10 | NUR ---
NURSE NOTES: RECEIVED REPORT FROM KAYLA SMALLWOOD STAFF OF [employer] DRAFTING OFFICER. RECEIVED PT WITH HOB ELEVATED 45 DEGREE ,OBTUNDED TRACH TO VENT .PT TOLE RATING WELL CURRENTS VENT SETTINGS, O2 SAT 98% NOTED AT THIS TIME. RENDERED TRACH CAre and ORAL HYGIENE.LARGE AMT OF THICK WHITE SECRETIONS NOTED. F/C IRISH #16 PATENT DRAINING SM AMT OF YELLOW URINE COLOR. PICC-LINE ON LT UPPER ARM PATENT RECEIVING NS @ 125CC/HRS INFUSING WELL. FULL BODY ASSESSMENT DONE. PT REPOSITIONED Q 2HRS TO PROVIDE COMFORT AND TO PREVENT FURTHERS SKIN BREAK DOWN. WILL CONT TO MONITOR.
[2020-08-28 08:00] VITALS: BP 106/47
--- NOTE | 2020-08-28 08:30 | NUR ---
NURSE NOTES: DR DAMICO CAME TO SEE THE PT AND MADE AWARE AND NOTIFIED REGARDING HGB 7.8 . NO NEW ORDERS NOTED AT THIS TIME. WILL CONT TO MONITOR.
[2020-08-28] MEDS: Meropenem 1 GM in NS 55 ML IVPB SCH ×2 (09:28→22:16)
[2020-08-28] MEDS: Metoprolol Tartrate 100mg tab ORAL SCH ×2 (09:28→21:00)
[2020-08-28] MEDS: Amiodarone 200mg tab GT SCH (09:29)
[2020-08-28] MEDS: Ascorbic Acid 500mg tab ORAL SCH (09:29)
[2020-08-28] MEDS: Dakin's 0.25% (Half Strength) 16oz TOPIC SCH (09:30)
--- NOTE | 2020-08-28 09:36 | Pulmonology Progress Note ---
Subjective ROS Limited/Unobtainable: Yes Gastrointestinal/Abdominal: Reports: diarrhea, other - X 1 Allergies: Coded Allergies: No Known Allergies (Unverified , 11/02/19) All Systems: reviewed and negative except above Subjective CARE NOTED nonverbal hypoxemic and acidotic near baseline hypotension better anemia noted Objective Last 24 Hour Vital Signs Date Time Temp Pulse Resp B/P (MAP) Pulse Ox O2 Delivery O2 Flow Rate FiO2 08/28/20 08:00 35 08/28/20 08:00 98.4 97 24 106/47 (66) 98 08/28/20 08:00 Mechanical Ventilator 08/28/20 07:42 96 24 35 08/28/20 04:00 Mechanical Ventilator 08/28/20 04:00 96 08/28/20 04:00 98.1 80 13 98/44 (62) 100 08/28/20 04:00 35 08/28/20 01:37 35 08/28/20 01:36 94 26 40 08/28/20 00:00 82 08/28/20 00:00 Mechanical Ventilator 08/28/20 00:00 98.0 84 24 103/53 (70) 100 08/27/20 21:00 81 97/53 08/27/20 20:00 40 08/27/20 20:00 98.1 80 24 88/51 (63) 100 08/27/20 20:00 Mechanical Ventilator 08/27/20 20:00 81 08/27/20 19:03 80 24 40 08/27/20 16:09 100.8 08/27/20 16:00 Mechanical Ventilator 08/27/20 16:00 40 08/27/20 16:00 88 08/27/20 15:45 102.2 89 24 93/59 (70) 95 08/27/20 15:00 87 28 40 08/27/20 12:18 99.6 81 26 99/61 (74) 97 08/27/20 12:00 80 08/27/20 12:00 40 08/27/20 12:00 Mechanical Ventilator 08/27/20 11:00 81 25 40 Intake and Output 08/27/20 08/28/20 19:00 07:00 Intake Total 985 ml 1321.5 ml Output Total 280 ml 300 ml Balance 705 ml 1021.5 ml Free Water 210 ml 60 ml IV Total 125 ml 771.5 ml Tube Feeding 650 ml 490 ml Output Urine Total 180 ml Stool Total 100 ml 300 ml # Voids 100 # Bowel Movements 3 Objective WDWN NAD awake chronically ill moderate breath sounds bilaterally without rhonchi [id number] NABS nontender GT no CCE nonfocal weak wounds noted Laboratory Tests 08/28/20 03:00: White Blood Count 7.8, Red Blood Count 2.84L, Hemoglobin 7.8L, Hematocrit 25.4L, Mean Corpuscular Volume 90, Mean Corpuscular Hemoglobin 27.6, Mean Corpuscular Hemoglobin Concent 30.9L, Red Cell Distribution Width 17.2H, Platelet Count 311, Mean Platelet Volume 5.3L, Neutrophils (%) (Auto) , Lymphocytes (%) (Auto) , Monocytes (%) (Auto) , Eosinophils (%) (Auto) , Basophils (%) (Auto) , Sodium Level 141, Potassium Level 4.7, Chloride Level 111H, Carbon Dioxide Level 18L, Anion Gap 12, Blood Urea Nitrogen 73H, Creatinine 2.0H, Estimat Glomerular Filtration Rate 33.4, Glucose Level 74, Calcium Level 9.2, Total Bilirubin 0.7, Aspartate Amino Transf (AST/SGOT) 71H, Alanine Aminotransferase (ALT/SGPT) 60, Alkaline Phosphatase 231H, Total Protein 5.7L, Albumin 0.8L, Globulin 4.9, Albumin/Globulin Ratio 0.2L Current Medications Medications (Trade) Dose Ordered Sig/Clive Route PRN Reason Start Time Stop Time Status Last Admin Dose Admin Acetaminophen (Tylenol) 650 mg Q4H PRN GT Temp >100.5 08/18/20 21:15 09/17/20 21:14 08/27/20 15:39 Amiodarone HCl (Cordarone) 200 mg DAILY GT 08/24/20 09:00 10/28/20 17:59 08/27/20 09:16 Ascorbic Acid (Vitamin C) 500 mg DAILY ORAL 08/17/20 16:00 09/16/20 15:59 08/27/20 09:16 Atorvastatin Calcium (Lipitor) 10 mg BEDTIME ORAL 08/26/20 21:00 11/24/20 20:59 08/27/20 21:27 Chlorhexidine Gluconate (Jennifer-Hex 2%) 1 applic DAILY@1999 TOPIC 07/17/20 20:00 10/15/20 19:59 08/27/20 21:16 Epoetin Tino (Epoetin Tino-EPBX(NON ESRD)) 2,000 unit SUBQ 08/25/20 21:00 11/23/20 20:59 08/27/20 21:16 Epoetin Tino (Epoetin Tino-EPBX(NON ESRD)) 3,000 unit SUBQ 08/25/20 21:00 11/23/20 20:59 08/27/20 21:16 Famotidine (Pepcid) 20 mg Q12HR GT 07/16/20 21:00 10/14/20 20:59 08/27/20 21:27 Finasteride (Proscar) 5 mg DAILY ORAL 07/15/20 09:00 10/13/20 08:59 08/27/20 09:17 Hydralazine HCl (Apresoline) 25 mg Q6H PRN GT SBP above 150 07/24/20 23:30 10/22/20 23:29 07/26/20 05:22 Levetiracetam (Keppra) 1,000 mg Q12HR ORAL 08/22/20 09:07 10/06/20 09:06 08/27/20 21:17 Lorazepam (Ativan 2mg/ml 1ml) 1 mg Q1H PRN IV For Seizures 08/26/20 01:30 09/02/20 01:29 08/26/20 01:39 Meropenem 1 gm/ Sodium Chloride 55 ml @ 110 mls/hr Q12HR IVPB 08/25/20 09:00 08/30/20 08:59 08/27/20 21:27 Metoclopramide HCl (Reglan) 5 mg Q6H IVP 08/21/20 22:00 09/20/20 21:59 08/28/20 03:50 Metoprolol Tartrate (Lopressor) 100 mg Q12HR ORAL 08/13/20 09:00 11/11/20 08:59 08/27/20 09:16 Multivitamins (Multivitamins) 1 tab DAILY ORAL 08/17/20 16:00 09/16/20 15:59 08/27/20 09:17 Sodium Hypochlorite (Dakin's Half Strength) 1 applic DAILY TOPIC 08/19/20 16:30 09/18/20 16:29 08/27/20 09:18 Sodium Chloride 1,000 ml @ 125 mls/hr Q8H IV 08/28/20 02:30 09/27/20 02:29 08/28/20 03:49 Assessment/Plan Assessment/Plan Impression: Healthcare-associated pneumonia Acute respiratory failure with hypoxia Tracheostomy status Pleural effusion, left-recurrent s/p tap Decubitus ulcers Urinary tract infection Anemia S/p previous Craniotomy, RCA occlusion, [employer]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
--- NOTE | 2020-08-28 11:31 | NUR ---
RD ASSESSMENT & RECOMMENDATIONS SEE CARE ACTIVITY FOR COMPLETE ASSESSMENT DAILY ESTIMATED NEEDS: Needs based on Wounds, Critical care / 74.5kg 22-28 kcals/kg 2367-5587 total kcals 1.5-2 g protein/kg 111-149 g total protein 25-30 mL/kg 4128-5512 total fluid mLs NUTRITION DIAGNOSIS: * Swallowing difficulty R/T dysphagia, h/o craniotomy, respiratory failure as evidenced by pt on T-collar, GJ tube dependent. * Increased kcal/prot/micronutrients needs R/T wound healing as evidenced by pt admitted w/ multiple advanced wounds including full thickness wound x 7 and unstageable wounds x 2, refer to WC eval. CURRENT TF:Vital AF 1.2 @80ml/hr ENTERAL NUTRITION RECOMMENDATIONS: Vital AF 1.2 @ 65ml/hr x 24 hrs to provide 1560ml, 1872kcal, 117g prot, 1265ml free water * Lower goal rate to 65ml/hr x 24 hrs naheed w/ worsening renal fxn, +diarrhea and residuals : meets 100% est kcal/prot needs * HOB over 30 degrees/ water flush 180ml q 6hrs without IVF ADDITIONAL RECOMMENDATIONS: * Calibrated bedscale wt * Wound Care: Con't Vit C 500mg BID, ZnSO4 220mg QD x 10 days add Stevie BID * Monitor lytes and renal fxn: creat trending up Monitor need for TF change to renal TF * Monitor BGs, need for NISS * Add probiotics for diarrhea
[2020-08-28 12:00] VITALS: BP 93/43
--- NOTE | 2020-08-28 13:20 | Surgery Progress Note ---
Surgery Progress Note Subjective Additional Comments ill appearing leg worsening would not tolerate amputation Objective Last 24 Hour Vital Signs Date Time Temp Pulse Resp B/P (MAP) Pulse Ox O2 Delivery O2 Flow Rate FiO2 08/28/20 12:00 98.8 92 24 93/43 (60) 98 08/28/20 12:00 92 08/28/20 12:00 Mechanical Ventilator 08/28/20 12:00 35 08/28/20 11:25 99 24 35 08/28/20 09:28 97 106/47 08/28/20 08:00 35 08/28/20 08:00 98.4 97 24 106/47 (66) 98 08/28/20 08:00 Mechanical Ventilator 08/28/20 07:42 96 24 35 08/28/20 07:34 96 08/28/20 04:00 Mechanical Ventilator 08/28/20 04:00 96 08/28/20 04:00 98.1 80 13 98/44 (62) 100 08/28/20 04:00 35 08/28/20 01:37 35 08/28/20 01:36 94 26 40 08/28/20 00:00 82 08/28/20 00:00 Mechanical Ventilator 08/28/20 00:00 98.0 84 24 103/53 (70) 100 08/27/20 21:00 81 97/53 08/27/20 20:00 40 08/27/20 20:00 98.1 80 24 88/51 (63) 100 08/27/20 20:00 Mechanical Ventilator 08/27/20 20:00 81 08/27/20 19:03 80 24 40 08/27/20 16:09 100.8 08/27/20 16:00 Mechanical Ventilator 08/27/20 16:00 40 08/27/20 16:00 88 08/27/20 15:45 102.2 89 24 93/59 (70) 95 08/27/20 15:00 87 28 40 I&O Intake and Output 08/27/20 08/28/20 19:00 07:00 Intake Total 985 ml 1496.5 ml Output Total 280 ml 300 ml Balance 705 ml 1196.5 ml Free Water 210 ml 60 ml IV Total 125 ml 896.5 ml Tube Feeding 650 ml 540 ml Output Urine Total 180 ml Stool Total 100 ml 300 ml # Voids 100 # Bowel Movements 3 Dressing: saturated Cardiovascular: RSR Respiratory: decreased breath sounds Abdomen: soft, non-tender, present bowel sounds Extremities: cyanosis, other Laboratory Tests Test 08/28/20 03:00 08/28/20 08:55 White Blood Count 7.8 K/UL (4.8-10.8) Red Blood Count 2.84 M/UL (4.70-6.10) L Hemoglobin 7.8 G/DL (14.2-18.0) L Hematocrit 25.4 % (42.0-52.0) L Mean Corpuscular Volume 90 FL (80-99) Mean Corpuscular Hemoglobin 27.6 PG (27.0-31.0) Mean Corpuscular Hemoglobin Concent 30.9 G/DL (32.0-36.0) L Red Cell Distribution Width 17.2 % (11.6-14.8) H Platelet Count 311 K/UL (150-450) Mean Platelet Volume 5.3 FL (6.5-10.1) L Neutrophils (%) (Auto) % (45.0-75.0) Lymphocytes (%) (Auto) % (20.0-45.0) Monocytes (%) (Auto) % (1.0-10.0) Eosinophils (%) (Auto) % (0.0-3.0) Basophils (%) (Auto) % (0.0-2.0) Sodium Level 141 MMOL/L (136-145) Potassium Level 4.7 MMOL/L (3.5-5.1) Chloride Level 111 MMOL/L (98-107) H Carbon Dioxide Level 18 MMOL/L (21-32) L Anion Gap 12 mmol/L (5-15) Blood Urea Nitrogen 73 mg/dL (7-18) H Creatinine 2.0 MG/DL (0.55-1.30) H Estimat Glomerular Filtration Rate 33.4 mL/min (>60) Glucose Level 74 MG/DL (74-106) Calcium Level 9.2 MG/DL (8.5-10.1) Total Bilirubin 0.7 MG/DL (0.2-1.0) Aspartate Amino Transf (AST/SGOT) 71 U/L (15-37) H Alanine Aminotransferase (ALT/SGPT) 60 U/L (12-78) Alkaline Phosphatase 231 U/L (46-116) H Total Protein 5.7 G/DL (6.4-8.2) L Albumin 0.8 G/DL (3.4-5.0) L Globulin 4.9 g/dL Albumin/Globulin Ratio 0.2 (1.0-2.7) L Arterial Blood pH 7.307 (7.350-7.450) Arterial Blood Partial Pressure CO2 31.0 mmHg (35.0-45.0) L Arterial Blood Partial Pressure O2 89.0 mmHg (75.0-100.0) Arterial Blood HCO3 15.2 mmol/L (22.0-26.0) *L Arterial Blood Oxygen Saturation 95.8 % (95-100) Arterial Blood Base Excess -10.2 (-2-2) *L Conner Test Positive Plan Problems: (1) Decubitus skin ulcer Assessment & Plan: Pt was discharged 08/15/20 and readmitted same day. Pt presented with [employer] Shunt,Tracheostomy , GT and Multiple Pressure Injuries and contractures. Small amt exudate that is of Sanguineous mixed with Formula noted from GT. Mild excoriation noted to Peristomal GT site. Full Thickness Sacral Pressure Injury (L)10.5cm x (W)8.3cm x (D)1.5cm, Undermining clockwise 9-2 by 1.3cm @10'oclock. Base of wound is 90% granular 10% necrotic. NO odor noted. Small amt serosanguineous exudate noted.Periwound is erythematous and indurated. No changes in skin temp noted. Full Thickness Pressure Injury Outer L Lower Quadrant of Buttocks.(L)5.5cm x (W)7cm x (D)1.5cm, Undermining clockwise 9-3 by 4.5cm @12o'clock, Tunneled area within base of wound by 5.5cm @ 1-2o'clock. Base of wound is 85% % moist and pink ,15% necrotic at base at undermined area of wound. Bone exposure noted. Small amt serosanguineous exudate noted. Periwound is erythematous and indurated. No odor noted. Full thickness Pressure Injury L Ischium(L)2cm x (W)0.9cm x (D)0.3cm. Base of wound is moist, and pink. Edges are adherent to base of wound. Periwound is maroon and indurated. NO changes in skin temp periwound. NO odor noted. Non-Blanchable erythema without induration noted to R Hip /R trochanteric.. Full Thickness Pressure Injury lateral L Tibia(L)21.5cm x (W)3.5cm x (D)0.2cm. Base of wound is 95% granular,5% necrosis along borders. Edges are adherent to base of wound . Moderate amt sanguineous exudate noted. No odor noted.Periwound skin colour is darker than is normal tone but without erythema or induration. Full thickness Pressure Injury L Heel extending into Plantar aspect of heel(L)8.7cm x (W)6.5cm x(D)0.6cm.Base of wound is 60% beefy granulation,40% necrotic. Bone is palpable. (+) Epibole at proximal borders of wound in close proximity with achilles. Small amt haemopurulent exudate noted. Wound is malodorous. Periwound is dusky and indurated. Full Thickness Pressure Injury Lateral L Foot (L)1.9cm x (W)3.4cm x (D)0.3cm, undermining clockwise 9-3 by 0.2cm @9o'clock. Base of wound is 10% necrotic 90% antonio. Wound is malodorous. Edges are macerate with scattered areas of necrosis along edges. Small amt haemopurulent exudate noted.Periwound is fluctuant and dusky. Full Thickness Pressure Injury distal/lateral L foot(L)1.3cm x (W)3.7cm x (D)0.2cm. Base of wound is 80% soft necrosis,20% moist and pink. edges are macerated. Wound is malodorous. Small amt brown exudate noted . Periwound is dusky and fluctuant. Unstageable Pressure injury dorsal L foot (L)1cm x (W)0.9cm. Base of wound is 100% necrotic. Edges are erythematous and macerated. Periwound without erythema,induration or fluctuance. Full thickness Pressure Injury R Heel including plantar aspect of heel (L)8.7cm x (W)6.5cm x (D)0.6cm. Base of wound is 60% beefy granulation,40% necrotic. Bone exposure at base of wound. Moderate amt haemopurulent exudate. Wound is malodorous. Proximal edges of wound within close proximity with achilles is rolled. Edges are otherwise macerated. Periwound is fluctuant and dusky. Full Thickness Pressure Injury distal/lateral R foot (L)0.5cm x (W)0.6cm. Base of wound is 100% fibrinous slough. Erythematous borders. Periwound without induration or fluctuance. Small amt serous exudate noted. Tx.Plan: Wash GT site with Soap and Water. Pat dry. Apply Moisture Barrier Paste around Gt Daily. Leave open to Air. Cleanse Sacral wound, L buttocks, and L Ischia wounds with Dakin's 0.25% Kristel. Loosely pack wounds with Dakin's moistened Kerlix.Apply Triad Paste periwound. Cover with Optifoam drsgs Daily and prn. Cleanse wound Lateral L Tibia with Dakin's o.25% Kristel. Rinse with Saline. Apply Promogran moistened with Saline. Apply Moisture Barrier Paste along borders. Cover with ABD Pads. Wrap with Kerlix every Mon-Wed-Fri (NOTE: Wound Nurse to Aplpy Promogran) Cleanse wounds L Foot with Dakin's 0.25% Kristel. Apply Dakin's moistened Gauze to each wound. Apply Triad Paste along Borders of each wound. Cover with ABD Pads and wrap with Kerlix Daily and prn. Cleanse R Heel wound with Dakin's 0.25% Kristel. Apply Dakin's Moistened Gauze to wound. Apply Triad Paste Periwound. Cover with ABD Pad. Wrap with Kerlix Daily and prn. Reposition at least every 2hours or as tolerated. Place Pillow Between Knees. Off-load heels with 2 Pillows. APM/TERRIE Mattress overlay. Sacral wound,L Buttocks, L Ischial wounds cleansed with Dakin's and each wound loosely packed with Dakin's moistened Kerlix.Moisture Barrier Paste applied to borders of each wound and each wound covered with Optifoam drsgs. Perianal area noted to be red and excoriated. Moisture Barrier Paste applied to affected area. Drsgs to L tibia, L Heel and R Heel noted to be saturated and malodorous. Both lower ext washed with Chlorhexidine soap prior to providing wound care.Base of wound lateral L Tibia beefy red. Edges are adherent with an area of 5% necrosis distally. Small amt sanguineous exudate No erythema or changes in skin temp periwound. Wound Later L Tibia cleansed with Saline. Promogran applied to base of wound.Moisture Barrier Paste applied along borders. Covered with ABD pad. Wrapped with Kerlix. R and L Heel wounds cleansed Dakin's 0.25% kristel. Dakin's moistened gauze applied to each wound Moisture Barrier Paste applied to borders of each wound and each wound covered with Abd Pads and each heel wrapped with Kerlix drsgs. Skin under tracheal collar assessed and no evidence of skin breakdown noted. Peristomal Gt site is resolving, Skin is moist but pink.No new skin concerns noted. ill appearing leg worsening would not tolerate amputation (2) Anemia Assessment & Plan: trend h/h prbc prn (3) UTI (urinary tract infection) (4) Pleural effusion, left Assessment & Plan: Ultrasound used to localize optimal puncture site. Sterile prepping and draping left chest. Local anesthesia with 1% lidocaine. Under real-time ultrasound guidance, puncture pleural space using thoracentesis needle. Stylet removed. Catheter placed to vacuum bottle suction. Total 1700 milliliters of fluid aspirated. Patient tolerated procedure well, without immediate complication. Findings: Followup sonography demonstrates small amount of residual pleural fluid. Impression: Successful ultrasound-guided thoracentesis, yielding 1700 milliliters of fluid Lungs: Hazy left lung attenuation could be due to consolidation, pulmonary edema; correlate with presentation. Retrocardiac atelectasis without or with consolidation. Pleural space: Small-moderate left pleural effusion with passive atelectasis. No pneumothorax. Heart: Unremarkable. No cardiomegaly. Mediastinum: Unremarkable. Bones/joints: No acute abnormality Tubes, lines and devices: Tracheostomy. Right upper extremity PICC tip in the mid SVC. IMPRESSION: 1. Tracheostomy. 2. Right upper extremity PICC tip in the mid SVC. 3. Small-moderate left pleural effusion with passive atelectasis. 4. Hazy left lung attenuation could be due to consolidation, pulmonary edema; correlate with presentation. 5. Retrocardiac atelectasis without or with consolidation. 6. Recommend CT chest with IV contrast to further characterize these findings. plan repeat thora (5) Malfunction of gastrostomy tube Assessment & Plan: DAILY ESTIMATED NEEDS: Needs based on Wounds, pulmonary/ 74.5kg 25-30 kcals/kg 7951-9300 total kcals 1.5-2 g protein/kg 111-149 g total protein 25-30 mL/kg 0857-0894 total fluid mLs NUTRITION DIAGNOSIS: * Swallowing difficulty R/T dysphagia, h/o craniotomy, respiratory failure as evidenced by pt on T-collar, GJ tube dependent. * Increased kcal/prot/micronutrients needs R/T wound healing as evidenced by pt admitted w/ multiple advanced wounds including full thickness wound x 7 and unstageable wounds x 2, refer to evarsenio. CURRENT TF:Vital AF 1.2 @70ml/hr ENTERAL NUTRITION RECOMMENDATIONS: Vital AF 1.2 @ 65ml/hr x 24 hrs to provide 1560ml, 1872kcal, 117g prot, 1265ml free water * Lower goal rate to 65ml/hr x 24 hrs: meets 100% est kcal/prot needs * HOB over 30 degrees/ water flush 180ml q 6hrs without IVF ------ elemental TF formula of Vital AF not indicated, consider changing TF to Glucerna 1.2 @ 65ml/hr x 24 hrs + Prosource 1pkt TID to provide 1560ml, 1872kcal, 94g+ 33g prot, 1259ml free water ADDITIONAL RECOMMENDATIONS: * Calibrated bedscale wt * Wound Care: Con't Vit C 500mg BID, ZnSO4 220mg QD x 10 days add Stevie BID * Monitor lytes, replete as needed * DC D5 for improved BG control increase H2O flushes instead (Na now wnl, BUN elev) * Rec NISS (6) Acute respiratory failure with hypoxia (7) HCAP (healthcare-associated pneumonia) Deny Westfall Aug 28, 2020 13:20
--- NOTE | 2020-08-28 15:21 | Infectious Diseases Prog Note ---
Assessment/Plan Assessment/Plan A: 1. Pseudomonas & Proteus pneumonia. 2. Providencia & Proteus sepsis 3. Hypertension. 4. Atrial fibrillation. 5. anemia 6. S/p tracheostomy 7. s/p GT 8. Left pleural effusion, recurrent 9. Bacteremia with Staph epidermidis 10. ? PICC line infection, line was changed 11. Pseudomonas bacteriuria 12. Pressure ulcers 13. Acute renal failure 14. GI bleeding PLAN: 1. Continue Meropenem X 2 days 2. Wound care Subjective ROS Limited/Unobtainable: Yes Allergies: Coded Allergies: No Known Allergies (Unverified , 11/02/19) Objective Last 24 Hour Vital Signs Date Time Temp Pulse Resp B/P (MAP) Pulse Ox O2 Delivery O2 Flow Rate FiO2 08/28/20 12:00 98.8 92 24 93/43 (60) 98 08/28/20 12:00 92 08/28/20 12:00 Mechanical Ventilator 08/28/20 12:00 35 08/28/20 11:25 99 24 35 08/28/20 09:28 97 106/47 08/28/20 08:00 35 08/28/20 08:00 98.4 97 24 106/47 (66) 98 08/28/20 08:00 Mechanical Ventilator 08/28/20 07:42 96 24 35 08/28/20 07:34 96 08/28/20 04:00 Mechanical Ventilator 08/28/20 04:00 96 08/28/20 04:00 98.1 80 13 98/44 (62) 100 08/28/20 04:00 35 08/28/20 01:37 35 08/28/20 01:36 94 26 40 08/28/20 00:00 82 08/28/20 00:00 Mechanical Ventilator 08/28/20 00:00 98.0 84 24 103/53 (70) 100 08/27/20 21:00 81 97/53 08/27/20 20:00 40 08/27/20 20:00 98.1 80 24 88/51 (63) 100 08/27/20 20:00 Mechanical Ventilator 08/27/20 20:00 81 08/27/20 19:03 80 24 40 08/27/20 16:09 100.8 08/27/20 16:00 Mechanical Ventilator 08/27/20 16:00 40 08/27/20 16:00 88 08/27/20 15:45 102.2 89 24 93/59 (70) 95 Height (Feet): 5 Height (Inches): 4.00 Weight (Pounds): 171 HEENT: status post trach Respiratory/Chest: rhonchi - bilaterally, other - on ventilator Cardiovascular: normal rate Abdomen: soft, non tender, other - GT feeding Extremities: other - edema of hands Skin: ulcers Neurologic/Psychiatric: aphasia Laboratory Tests Test 08/28/20 03:00 08/28/20 08:55 White Blood Count 7.8 K/UL (4.8-10.8) Red Blood Count 2.84 M/UL (4.70-6.10) L Hemoglobin 7.8 G/DL (14.2-18.0) L Hematocrit 25.4 % (42.0-52.0) L Mean Corpuscular Volume 90 FL (80-99) Mean Corpuscular Hemoglobin 27.6 PG (27.0-31.0) Mean Corpuscular Hemoglobin Concent 30.9 G/DL (32.0-36.0) L Red Cell Distribution Width 17.2 % (11.6-14.8) H Platelet Count 311 K/UL (150-450) Mean Platelet Volume 5.3 FL (6.5-10.1) L Neutrophils (%) (Auto) % (45.0-75.0) Lymphocytes (%) (Auto) % (20.0-45.0) Monocytes (%) (Auto) % (1.0-10.0) Eosinophils (%) (Auto) % (0.0-3.0) Basophils (%) (Auto) % (0.0-2.0) Sodium Level 141 MMOL/L (136-145) Potassium Level 4.7 MMOL/L (3.5-5.1) Chloride Level 111 MMOL/L (98-107) H Carbon Dioxide Level 18 MMOL/L (21-32) L Anion Gap 12 mmol/L (5-15) Blood Urea Nitrogen 73 mg/dL (7-18) H Creatinine 2.0 MG/DL (0.55-1.30) H Estimat Glomerular Filtration Rate 33.4 mL/min (>60) Glucose Level 74 MG/DL (74-106) Calcium Level 9.2 MG/DL (8.5-10.1) Total Bilirubin 0.7 MG/DL (0.2-1.0) Aspartate Amino Transf (AST/SGOT) 71 U/L (15-37) H Alanine Aminotransferase (ALT/SGPT) 60 U/L (12-78) Alkaline Phosphatase 231 U/L (46-116) H Total Protein 5.7 G/DL (6.4-8.2) L Albumin 0.8 G/DL (3.4-5.0) L Globulin 4.9 g/dL Albumin/Globulin Ratio 0.2 (1.0-2.7) L Arterial Blood pH 7.307 (7.350-7.450) Arterial Blood Partial Pressure CO2 31.0 mmHg (35.0-45.0) L Arterial Blood Partial Pressure O2 89.0 mmHg (75.0-100.0) Arterial Blood HCO3 15.2 mmol/L (22.0-26.0) *L Arterial Blood Oxygen Saturation 95.8 % (95-100) Arterial Blood Base Excess -10.2 (-2-2) *L Conner Test Positive Current Medications Medications (Trade) Dose Ordered Sig/Clive Route PRN Reason Start Time Stop Time Status Last Admin Dose Admin Acetaminophen (Tylenol) 650 mg Q4H PRN GT Temp >100.5 08/18/20 21:15 09/17/20 21:14 08/27/20 15:39 Amiodarone HCl (Cordarone) 200 mg DAILY GT 08/24/20 09:00 10/28/20 17:59 08/28/20 09:29 Ascorbic Acid (Vitamin C) 500 mg DAILY ORAL 08/17/20 16:00 09/16/20 15:59 08/28/20 09:29 Atorvastatin Calcium (Lipitor) 10 mg BEDTIME ORAL 08/26/20 21:00 11/24/20 20:59 08/27/20 21:27 Chlorhexidine Gluconate (Jennifer-Hex 2%) 1 applic DAILY@1999 TOPIC 07/17/20 20:00 10/15/20 19:59 08/27/20 21:16 Epoetin Tino (Epoetin Tino-EPBX(NON ESRD)) 2,000 unit TUE-TUE-TUE SUBQ 08/25/20 21:00 11/23/20 20:59 08/27/20 21:16 Epoetin Tino (Epoetin Tino-EPBX(NON ESRD)) 3,000 unit TUE- SUBQ 08/25/20 21:00 11/23/20 20:59 08/27/20 21:16 Famotidine (Pepcid) 20 mg Q12HR GT 07/16/20 21:00 10/14/20 20:59 08/28/20 09:28 Finasteride (Proscar) 5 mg DAILY ORAL 07/15/20 09:00 10/13/20 08:59 08/28/20 09:29 Hydralazine HCl (Apresoline) 25 mg Q6H PRN GT SBP above 150 07/24/20 23:30 10/22/20 23:29 07/26/20 05:22 Levetiracetam (Keppra) 1,000 mg Q12HR ORAL 08/22/20 09:07 10/06/20 09:06 08/28/20 09:29 Lorazepam (Ativan 2mg/ml 1ml) 1 mg Q1H PRN IV For Seizures 08/26/20 01:30 09/02/20 01:29 08/26/20 01:39 Meropenem 1 gm/ Sodium Chloride 55 ml @ 110 mls/hr Q12HR IVPB 08/25/20 09:00 08/30/20 23:59 08/28/20 09:28 Metoclopramide HCl (Reglan) 5 mg Q6H IVP 08/21/20 22:00 09/20/20 21:59 08/28/20 09:37 Metoprolol Tartrate (Lopressor) 100 mg Q12HR ORAL 08/13/20 09:00 11/11/20 08:59 08/28/20 09:28 Multivitamins (Multivitamins) 1 tab DAILY ORAL 08/17/20 16:00 09/16/20 15:59 08/28/20 09:29 Sodium Hypochlorite (Dakin's Half Strength) 1 applic DAILY TOPIC 08/19/20 16:30 09/18/20 16:29 08/28/20 09:30 Sodium Chloride 1,000 ml @ 125 mls/hr Q8H IV 08/28/20 02:30 3/13/21 02:29 08/28/20 10:31 Steve Nelson MD Aug 28, 2020 15:21
[2020-08-28 16:00] VITALS: BP 105/56
--- NOTE | 2020-08-28 16:39 | General Progress Note ---
Subjective ROS Limited/Unobtainable: No Constitutional: Reports: malaise, weakness HEENT: Reports: no symptoms Cardiovascular: Reports: no symptoms Respiratory: Reports: cough, shortness of breath, sputum Gastrointestinal/Abdominal: Reports: difficulty swallowing Genitourinary: Reports: no symptoms Neurologic/Psychiatric: Reports: pre-existing deficit, seizure Endocrine: Reports: no symptoms Hematologic/Lymphatic: Reports: anemia Allergies: Coded Allergies: No Known Allergies (Unverified , 11/02/19) All Systems: reviewed and negative except above Subjective no events. stable on the vent. Patient is awake but nonverbal does not track or follow commands. Patient is tolerating feeding. H&H is slightly lower. No reports of any bleeding. No fevers noted. Creatinine trending up. low bp noted. Objective Last 24 Hour Vital Signs Date Time Temp Pulse Resp B/P (MAP) Pulse Ox O2 Delivery O2 Flow Rate FiO2 08/28/20 16:00 96 08/28/20 16:00 Mechanical Ventilator 08/28/20 16:00 35 08/28/20 15:21 101 28 35 08/28/20 12:00 98.8 92 24 93/43 (60) 98 08/28/20 12:00 92 08/28/20 12:00 Mechanical Ventilator 08/28/20 12:00 35 08/28/20 11:25 99 24 35 08/28/20 09:28 97 106/47 08/28/20 08:00 35 08/28/20 08:00 98.4 97 24 106/47 (66) 98 08/28/20 08:00 Mechanical Ventilator 08/28/20 07:42 96 24 35 08/28/20 07:34 96 08/28/20 04:00 Mechanical Ventilator 08/28/20 04:00 96 08/28/20 04:00 98.1 80 13 98/44 (62) 100 08/28/20 04:00 35 08/28/20 01:37 35 08/28/20 01:36 94 26 40 08/28/20 00:00 82 08/28/20 00:00 Mechanical Ventilator 08/28/20 00:00 98.0 84 24 103/53 (70) 100 08/27/20 21:00 81 97/53 08/27/20 20:00 40 08/27/20 20:00 98.1 80 24 88/51 (63) 100 08/27/20 20:00 Mechanical Ventilator 08/27/20 20:00 81 08/27/20 19:03 80 24 40 Intake and Output 08/27/20 08/28/20 19:00 07:00 Intake Total 985 ml 1496.5 ml Output Total 280 ml 300 ml Balance 705 ml 1196.5 ml Free Water 210 ml 60 ml IV Total 125 ml 896.5 ml Tube Feeding 650 ml 540 ml Output Urine Total 180 ml Stool Total 100 ml 300 ml # Voids 100 # Bowel Movements 3 Laboratory Tests 08/28/20 03:00: White Blood Count 7.8, Red Blood Count 2.84L, Hemoglobin 7.8L, Hematocrit 25.4L, Mean Corpuscular Volume 90, Mean Corpuscular Hemoglobin 27.6, Mean Corpuscular Hemoglobin Concent 30.9L, Red Cell Distribution Width 17.2H, Platelet Count 311, Mean Platelet Volume 5.3L, Neutrophils (%) (Auto) , Lymphocytes (%) (Auto) , Monocytes (%) (Auto) , Eosinophils (%) (Auto) , Basophils (%) (Auto) , Sodium Level 141, Potassium Level 4.7, Chloride Level 111H, Carbon Dioxide Level 18L, Anion Gap 12, Blood Urea Nitrogen 73H, Creatinine 2.0H, Estimat Glomerular Filtration Rate 33.4, Glucose Level 74, Calcium Level 9.2, Total Bilirubin 0.7, Aspartate Amino Transf (AST/SGOT) 71H, Alanine Aminotransferase (ALT/SGPT) 60, Alkaline Phosphatase 231H, Total Protein 5.7L, Albumin 0.8L, Globulin 4.9, Albumin/Globulin Ratio 0.2L 08/28/20 08:55: Arterial Blood pH 7.307L, Arterial Blood Partial Pressure CO2 31.0L, Arterial Blood Partial Pressure O2 89.0, Arterial Blood HCO3 15.2*L, Arterial Blood Oxygen Saturation 95.8, Arterial Blood Base Excess -10.2*L, Conner Test Positive Height (Feet): 5 Height (Inches): 4.00 Weight (Pounds): 171 Objective General Appearance: WD/WN, confused EENT: normal ENT inspection. on the vent Neck: normal alignment Cardiovascular: normal rate, regular rhythm Respiratory/Chest: rhonchi - bilaterally Abdomen: normal bowel sounds, non tender, soft, no organomegaly Edema: no edema noted Leg (L), no edema noted Leg (R) Neurologic: disoriented, aphasia Skin: normal pigmentation Assessment/Plan Problem List: (1) Anemia ICD Codes: D64.9 - Anemia, unspecified SNOMED: 419584126, 975890589 Qualifiers: Qualified Codes: D50.0 - Iron deficiency anemia secondary to blood loss (chronic) (2) Pleural effusion, left ICD Codes: J90 - Pleural effusion, not elsewhere classified SNOMED: 30518167, 115486392 (3) Malfunction of gastrostomy tube ICD Codes: K94.23 - Gastrostomy malfunction SNOMED: 464405407 (4) Acute respiratory failure with hypoxia ICD Codes: J96.01 - Acute respiratory failure with hypoxia SNOMED: 94093537, 456530530 (5) HCAP (healthcare-associated pneumonia) ICD Codes: J18.9 - Pneumonia, unspecified organism SNOMED: 330743481, 721672875 Status: stable, progressing Assessment/Plan: iv abx per id follow up cultures trach care resp rx/suctioning as needed vent per pulm ?thoracentesis tube feeds monitor residuals sz rx bp rx monitor h/h transfuse as needed epogen iron rx repeat cxr add midodrine for low bp wound care monitor labs Angel Jaramillo MD Aug 28, 2020 16:39
[2020-08-28] MEDS: Midodrine 10mg tab ORAL SCH (17:49)
--- NOTE | 2020-08-28 19:24 | NUR ---
NURSE HAND-OFF REPORT: Important Events on Shift: Patient Status: Diet: Pending Orders: Pending Results/Labs: Pending MD notification: Latest Vital Signs: Temperature 99.7 , Pulse 97 , B/P 105 /56 , Respiratory Rate 22 , O2 SAT 100 , Trach Collar, O2 Flow Rate 10.0 . Vital Sign Comment: EKG Rhythm: Sinus Rhythm Rhythm change?: N MD Notified?: Nadine Mak and [place] VALDEZ Response: Message left await call Latest Ramirez Fall Score: 70 Fall Risk: High Risk Safety Measures: Call light Within Reach, Bed Alarm Zone 1, Side Rails Side Rails x3, Bed position Low and Locked. Fall Precautions: Yellow Socks Patient Fall Education Report given to .PRETTY SMALLWOOD.
--- NOTE | 2020-08-28 19:30 | NUR ---
NURSE NOTES: Received patient from [facility]enhall under the care of Dr. Devlin for the admitting dx of PNA. Noted NKA and full code status. Contact isolation (for multiple organisms) and seizure precautions observed and maintained at all times. Patient noted to be obtunded with eyes open, no tracking. Tolerating Vent settings (A-C24 TV-500 FiO2-40% PEEP-5) well with no acute distress noted at this time. Will continue to monitor.
[2020-08-28 20:00] VITALS: BP 114/56
--- NOTE | 2020-08-28 21:30 | General Progress Note ---
Subjective Allergies: Coded Allergies: No Known Allergies (Unverified , 11/02/19) Subjective seen earlier today NAD, tolerating TF d/w RN stool C Diff pending Objective Last 24 Hour Vital Signs Date Time Temp Pulse Resp B/P (MAP) Pulse Ox O2 Delivery O2 Flow Rate FiO2 08/28/20 19:36 89 24 35 08/28/20 16:00 96 08/28/20 16:00 99.7 97 22 105/56 (72) 100 08/28/20 16:00 Mechanical Ventilator 08/28/20 16:00 35 08/28/20 15:21 101 28 35 08/28/20 12:00 98.8 92 24 93/43 (60) 98 08/28/20 12:00 92 08/28/20 12:00 Mechanical Ventilator 08/28/20 12:00 35 08/28/20 11:25 99 24 35 08/28/20 09:28 97 106/47 08/28/20 08:00 35 08/28/20 08:00 98.4 97 24 106/47 (66) 98 08/28/20 08:00 Mechanical Ventilator 08/28/20 07:42 96 24 35 08/28/20 07:34 96 08/28/20 04:00 Mechanical Ventilator 08/28/20 04:00 96 08/28/20 04:00 98.1 80 13 98/44 (62) 100 08/28/20 04:00 35 08/28/20 01:37 35 08/28/20 01:36 94 26 40 08/28/20 00:00 82 08/28/20 00:00 Mechanical Ventilator 08/28/20 00:00 98.0 84 24 103/53 (70) 100 l Intake and Output 08/27/20 08/28/20 19:00 07:00 Intake Total 985 ml 1496.5 ml Output Total 280 ml 300 ml Balance 705 ml 1196.5 ml Free Water 210 ml 60 ml IV Total 125 ml 896.5 ml Tube Feeding 650 ml 540 ml Output Urine Total 180 ml Stool Total 100 ml 300 ml # Voids 100 # Bowel Movements 3 Laboratory Tests 08/28/20 03:00: White Blood Count 7.8, Red Blood Count 2.84L, Hemoglobin 7.8L, Hematocrit 25.4L, Mean Corpuscular Volume 90, Mean Corpuscular Hemoglobin 27.6, Mean Corpuscular Hemoglobin Concent 30.9L, Red Cell Distribution Width 17.2H, Platelet Count 311, Mean Platelet Volume 5.3L, Neutrophils (%) (Auto) , Lymphocytes (%) (Auto) , Monocytes (%) (Auto) , Eosinophils (%) (Auto) , Basophils (%) (Auto) , Sodium Level 141, Potassium Level 4.7, Chloride Level 111H, Carbon Dioxide Level 18L, Anion Gap 12, Blood Urea Nitrogen 73H, Creatinine 2.0H, Estimat Glomerular Filtration Rate 33.4, Glucose Level 74, Calcium Level 9.2, Total Bilirubin 0.7, Aspartate Amino Transf (AST/SGOT) 71H, Alanine Aminotransferase (ALT/SGPT) 60, Alkaline Phosphatase 231H, Total Protein 5.7L, Albumin 0.8L, Globulin 4.9, Albumin/Globulin Ratio 0.2L 08/28/20 08:55: Arterial Blood pH 7.307L, Arterial Blood Partial Pressure CO2 31.0L, Arterial Blood Partial Pressure O2 89.0, Arterial Blood HCO3 15.2*L, Arterial Blood Oxygen Saturation 95.8, Arterial Blood Base Excess -10.2*L, Conner Test Positive Height (Feet): 5 Height (Inches): 4.00 Weight (Pounds): 171 Objective Eldely WM NCAT (+) trach , T tube Coarse BS RRR abd soft (+) GT ext no edema Assessment/Plan Status: stable, progressing Assessment/Plan: Assessment - Abnormal LFT - UGIB - resolved - Anemia, s/p transfusion - hypotension - h/o PUD - resp failure, s/p trach - dysphagia, s/p PEG - atrial fibrillation - h/o DVT - hypernatremia - loose BM - decubitus ulcers - poor prognosis Recommendations - follow LFT - await C Diff - H2B BID indefinitely - vital AF 1.2 at 70 - protein supplements - TID - MVI - Vitamin C - free water - follow H&H - monitor BM Akiko Rai MD Aug 28, 2020 21:30
--- NOTE | 2020-08-28 21:31 | Neurology Progress Note ---
Interim History Interim History ROS Limited/Unobtainable: No Interim History more alert since last seen, not following, non verbal Objective Physical Exam Last Vital Signs Date Time Temp Pulse Resp B/P (MAP) Pulse Ox O2 Delivery O2 Flow Rate FiO2 08/28/20 19:36 89 24 35 08/28/20 16:00 99.7 105/56 (72) 100 08/28/20 16:00 Mechanical Ventilator 08/25/20 09:00 10.0 Laboratory Tests Test 08/28/20 03:00 08/28/20 08:55 White Blood Count 7.8 K/UL (4.8-10.8) Red Blood Count 2.84 M/UL (4.70-6.10) L Hemoglobin 7.8 G/DL (14.2-18.0) L Hematocrit 25.4 % (42.0-52.0) L Mean Corpuscular Volume 90 FL (80-99) Mean Corpuscular Hemoglobin 27.6 PG (27.0-31.0) Mean Corpuscular Hemoglobin Concent 30.9 G/DL (32.0-36.0) L Red Cell Distribution Width 17.2 % (11.6-14.8) H Platelet Count 311 K/UL (150-450) Mean Platelet Volume 5.3 FL (6.5-10.1) L Neutrophils (%) (Auto) % (45.0-75.0) Lymphocytes (%) (Auto) % (20.0-45.0) Monocytes (%) (Auto) % (1.0-10.0) Eosinophils (%) (Auto) % (0.0-3.0) Basophils (%) (Auto) % (0.0-2.0) Sodium Level 141 MMOL/L (136-145) Potassium Level 4.7 MMOL/L (3.5-5.1) Chloride Level 111 MMOL/L (98-107) H Carbon Dioxide Level 18 MMOL/L (21-32) L Anion Gap 12 mmol/L (5-15) Blood Urea Nitrogen 73 mg/dL (7-18) H Creatinine 2.0 MG/DL (0.55-1.30) H Estimat Glomerular Filtration Rate 33.4 mL/min (>60) Glucose Level 74 MG/DL (74-106) Calcium Level 9.2 MG/DL (8.5-10.1) Total Bilirubin 0.7 MG/DL (0.2-1.0) Aspartate Amino Transf (AST/SGOT) 71 U/L (15-37) H Alanine Aminotransferase (ALT/SGPT) 60 U/L (12-78) Alkaline Phosphatase 231 U/L (46-116) H Total Protein 5.7 G/DL (6.4-8.2) L Albumin 0.8 G/DL (3.4-5.0) L Globulin 4.9 g/dL Albumin/Globulin Ratio 0.2 (1.0-2.7) L Arterial Blood pH 7.307 (7.350-7.450) Arterial Blood Partial Pressure CO2 31.0 mmHg (35.0-45.0) L Arterial Blood Partial Pressure O2 89.0 mmHg (75.0-100.0) Arterial Blood HCO3 15.2 mmol/L (22.0-26.0) *L Arterial Blood Oxygen Saturation 95.8 % (95-100) Arterial Blood Base Excess -10.2 (-2-2) *L Conner Test Positive Head: normocophalic Neck: no rigidity EENT: benign Neurologic Exam Objective lethargic, pupils reactive not following withdraws to pain Impression/Recommendations Problems: (1) Malfunction of gastrostomy tube (2) Anemia (3) Pleural effusion, left (4) Acute respiratory failure with hypoxia (5) HCAP (healthcare-associated pneumonia) (6) UTI (urinary tract infection) Status: stable, progressing Diagnostic Impression Recurrent sepsis Possible aspiration Encephalopathy, acute on chronic rule out seizures map > 65 ro covid cont atb fu cultures no need for AED now Gerson Singh MD Aug 28, 2020 21:31
[2020-08-28] MEDS: Atorvastatin 20mg tab ORAL SCH (21:45)
--- NOTE | 2020-08-28 22:00 | NUR ---
NURSE NOTES: Patient noted awake and responsive to stimuli. Stimulation provided through TV. No acute distress or discomfort noted. Will continue to monitor.
[2020-08-28] MEDS: Dyna-Hex 2% Top Sol 2oz TOPIC SCH (22:15)
[2020-08-29] VITALS: BP 101/79
--- NOTE | 2020-08-29 | NUR ---
NURSE NOTES: Patient asleep, but easily arousable. No acute distress noted. Tolerating vent settings well. Will continue to monitor.
--- NOTE | 2020-08-29 03:00 | NUR ---
NURSE NOTES: Patient B leg dressings noted soiled, treatment performed as ordered. Will continue to monitor.
[2020-08-29 04:00] VITALS: BP 105/72
[2020-08-29] MEDS: Metoclopramide 10mg/2ml Inj IVP SCH ×4 (04:50→22:12)
[2020-08-29 05:03] LABS: HEMATOCRIT 23.3 % (42.0-52.0); MEAN CORPUSCULAR VOLUME 90 FL (80-99); PLATELET COUNT 299 K/UL (150-450); RED BLOOD COUNT 2.59 M/UL (4.70-6.10); RED CELL DISTRIBUTION WIDTH 17.1 % (11.6-14.8); WHITE BLOOD COUNT 6.6 K/UL (4.8-10.8)
[2020-08-29 05:18] LABS: ALBUMIN 0.7 G/DL (3.4-5.0); ALBUMIN/GLOBULIN RATIO 0.2 (1.0-2.7); BILIRUBIN,TOTAL 0.5 MG/DL (0.2-1.0); CREATININE 2.2 MG/DL (0.55-1.30); POTASSIUM 4.6 MMOL/L (3.5-5.1)
--- NOTE | 2020-08-29 06:00 | NUR ---
NURSE NOTES: Patient lab results came back and noted hgb=7.0 and hct=23.3. Dr. Devlin made aware with new orders to transfuse 2PRBC. Noted and carried out.
--- NOTE | 2020-08-29 07:20 | NUR ---
NURSE HAND-OFF REPORT: Important Events on Shift: Hgb=7.0 MD made aware Patient Status: Stable Diet: GT Pending Orders: Blood transfusion Pending Results/Labs: Pending MD notification: Latest Vital Signs: Temperature 97.7 , Pulse 80 , B/P 105 /72 , Respiratory Rate 25 , O2 SAT 97 , Trach Collar, O2 Flow Rate 10.0 . Vital Sign Comment: WNL EKG Rhythm: SRw/BBB Rhythm change?: N MD Notified?: Nadine Mak and [place]a VALDEZ Response: Message left await call Latest Ramirez Fall Score: 70 Fall Risk: High Risk Safety Measures: Call light Within Reach, Bed Alarm Zone 1, Side Rails Side Rails x3, Bed position Low and Locked. Fall Precautions: Yellow Socks Patient Fall Education Report given to SELIN Jacques.
--- NOTE | 2020-08-29 07:30 | NUR ---
NURSE NOTES: Received pt from SELIN Rivera, pt is sleeping, pt has trach to ventilator AC 24 TV 500 PEEP 5 FIO2 35%, Pt is on continues heart monitoring. pt has g tube in place is working well. pt has intact PICC REBECCA 22G NS 125ml/hr is running well. waiting for call from blood bank to get blood. pt has [place] cath in place is working well. All needs attended, bed is locked and is in the lowest position, call light within easy reach. will continue to monitor.
[2020-08-29 08:00] VITALS: BP 105/56
--- NOTE | 2020-08-29 08:10 | Pulmonology Progress Note ---
Subjective ROS Limited/Unobtainable: No Gastrointestinal/Abdominal: Reports: diarrhea, other - X 1 Allergies: Coded Allergies: No Known Allergies (Unverified , 11/02/19) All Systems: reviewed and negative except above Subjective CARE NOTED nonverbal hypoxemic and acidotic near baseline hypotension better anemia noted Objective Last 24 Hour Vital Signs Date Time Temp Pulse Resp B/P (MAP) Pulse Ox O2 Delivery O2 Flow Rate FiO2 08/29/20 05:19 80 25 35 08/29/20 04:00 97.7 92 26 105/72 (83) 97 08/29/20 04:00 35 08/29/20 04:00 Mechanical Ventilator 08/29/20 04:00 86 08/29/20 03:13 91 27 35 08/29/20 01:08 85 24 35 08/29/20 00:00 86 08/29/20 00:00 35 08/29/20 00:00 98.6 89 24 101/79 (86) 100 08/29/20 00:00 Mechanical Ventilator 08/28/20 23:19 88 24 35 08/28/20 21:53 89 24 35 08/28/20 21:00 89 114/56 08/28/20 20:00 35 08/28/20 20:00 Mechanical Ventilator 08/28/20 20:00 99.1 89 24 114/56 (75) 100 08/28/20 19:48 89 08/28/20 19:36 89 24 35 08/28/20 16:00 96 08/28/20 16:00 99.7 97 22 105/56 (72) 100 08/28/20 16:00 Mechanical Ventilator 08/28/20 16:00 35 08/28/20 15:21 101 28 35 08/28/20 12:00 98.8 92 24 93/43 (60) 98 08/28/20 12:00 92 08/28/20 12:00 Mechanical Ventilator 08/28/20 12:00 35 08/28/20 11:25 99 24 35 08/28/20 09:28 97 106/47 Intake and Output 08/28/20 08/29/20 19:00 07:00 Intake Total 2105 ml 1225 ml Output Total 250 ml 250 ml Balance 1855 ml 975 ml Free Water 200 ml 300 ml IV Total 1305 ml 375 ml Tube Feeding 600 ml 550 ml Output Urine Total 200 ml 250 ml Stool Total 50 ml Objective WDWN NAD awake chronically ill moderate breath sounds bilaterally without rhonchi [id number] NABS nontender GT no CCE nonfocal weak wounds noted Microbiology Date/Time Source Procedure Growth Status 08/28/20 00:10 Stool Clostridium difficile Toxin Assay - Final Complete Laboratory Tests 08/28/20 08:55: Arterial Blood pH 7.307L, Arterial Blood Partial Pressure CO2 31.0L, Arterial Blood Partial Pressure O2 89.0, Arterial Blood HCO3 15.2*L, Arterial Blood Oxygen Saturation 95.8, Arterial Blood Base Excess -10.2*L, Conner Test Positive 08/29/20 03:45: White Blood Count 6.6, Red Blood Count 2.59L, Hemoglobin 7.0L, Hematocrit 23.3L, Mean Corpuscular Volume 90, Mean Corpuscular Hemoglobin 27.2, Mean Corpuscular Hemoglobin Concent 30.3L, Red Cell Distribution Width 17.1H, Platelet Count 299, Mean Platelet Volume 5.2L, Neutrophils (%) (Auto) , Lymphocytes (%) (Auto) , Monocytes (%) (Auto) , Eosinophils (%) (Auto) , Basophils (%) (Auto) , Neutrophils % (Manual) [Pending], Lymphocytes % (Manual) [Pending], Platelet Estimate [Pending], Platelet Morphology [Pending], Sodium Level 143, Potassium Level 4.6, Chloride Level 113H, Carbon Dioxide Level 18L, Anion Gap 12, Blood Urea Nitrogen 75H, Creatinine 2.2H, Estimat Glomerular Filtration Rate 29.9, Glucose Level 108H, Calcium Level 9.0, Total Bilirubin 0.5, Aspartate Amino Transf (AST/SGOT) 63H, Alanine Aminotransferase (ALT/SGPT) 57, Alkaline Phosphatase 241H, Total Protein 5.3L, Albumin 0.7L, Globulin 4.6, Albumin/Globulin Ratio 0.2L Current Medications Medications (Trade) Dose Ordered Sig/Clive Route PRN Reason Start Time Stop Time Status Last Admin Dose Admin Acetaminophen (Tylenol) 650 mg Q4H PRN GT Temp >100.5 08/18/20 21:15 09/17/20 21:14 08/27/20 15:39 Amiodarone HCl (Cordarone) 200 mg DAILY GT 08/24/20 09:00 10/28/20 17:59 2/11/21 09:29 Ascorbic Acid (Vitamin C) 500 mg DAILY ORAL 08/17/20 16:00 09/16/20 15:59 08/28/20 09:29 Atorvastatin Calcium (Lipitor) 10 mg BEDTIME ORAL 08/28/20 21:45 11/24/20 20:59 08/28/20 21:45 Chlorhexidine Gluconate (Jennifer-Hex 2%) 1 applic DAILY@2000 TOPIC 07/17/20 20:00 10/15/20 19:59 08/28/20 22:15 Epoetin Tino (Epoetin Tino-EPBX(NON ESRD)) 2,000 unit SUBQ 08/25/20 21:00 11/23/20 20:59 08/27/20 21:16 Epoetin Tnio (Epoetin Tino-EPBX(NON ESRD)) 3,000 unit SUBQ 08/25/20 21:00 11/23/20 20:59 08/27/20 21:16 Famotidine (Pepcid) 20 mg Q12HR GT 07/16/20 21:00 10/14/20 20:59 08/28/20 22:16 Finasteride (Proscar) 5 mg DAILY ORAL 07/15/20 09:00 10/13/20 08:59 08/28/20 09:29 Hydralazine HCl (Apresoline) 25 mg Q6H PRN GT SBP above 150 07/24/20 23:30 10/22/20 23:29 07/26/20 05:22 Levetiracetam (Keppra) 1,000 mg Q12HR ORAL 08/22/20 09:07 10/06/20 09:06 08/28/20 22:15 Lorazepam (Ativan 2mg/ml 1ml) 1 mg Q1H PRN IV For Seizures 08/26/20 01:30 09/02/20 01:29 08/26/20 01:39 Meropenem 1 gm/ Sodium Chloride 55 ml @ 110 mls/hr Q12HR IVPB 08/25/20 09:00 08/30/20 23:59 08/28/20 22:16 Metoclopramide HCl (Reglan) 5 mg Q6H IVP 08/21/20 22:00 09/20/20 21:59 08/29/20 04:50 Metoprolol Tartrate (Lopressor) 100 mg Q12HR ORAL 08/13/20 09:00 11/11/20 08:59 08/28/20 09:28 Midodrine (Pro-Amatine) 10 mg THREE TIMES A DAY ORAL 08/28/20 18:00 11/26/20 17:59 08/28/20 17:49 Multivitamins (Multivitamins) 1 tab DAILY ORAL 08/17/20 16:00 09/16/20 15:59 08/28/20 09:29 Sodium Hypochlorite (Dakin's Half Strength) 1 applic DAILY TOPIC 08/19/20 16:30 09/18/20 16:29 08/28/20 09:30 Sodium Chloride 1,000 ml @ 125 mls/hr Q8H IV 08/28/20 02:30 09/27/20 02:29 08/29/20 02:30 Assessment/Plan Assessment/Plan Impression: Healthcare-associated pneumonia Acute respiratory failure with hypoxia Tracheostomy status Pleural effusion, left-recurrent s/p tap Decubitus ulcers ARF Anemia S/p previous Craniotomy, RCA occlusion, [employer] shunt Seizure history GERD, dysphagia s/p GJ tube h/o Hypertension h/o Atrial fibrillation Previous DVT and Pulmonary Embolism, hypernatremia bacteremia acidemia Plan events reviewed maintain vent on antibiotics bolus fluids as needed pressors as needed ID noted CXR follow up monitor HH for change J tube feeds monitor oxygen needs nebs as needed Wound care renal to see monitor acidemia and adjust vent setting consider bicarb orders reviewed and discussed impression, plan, and exam edited and reviewed in detail care discussed with Nikita Arreola MD Aug 29, 2020 08:10
[2020-08-29] MEDS: Amiodarone 200mg tab GT SCH (08:58)
[2020-08-29] MEDS: Dakin's 0.25% (Half Strength) 16oz TOPIC SCH (08:58)
[2020-08-29] MEDS: Meropenem 1 GM in NS 55 ML IVPB SCH ×2 (08:58→22:17)
[2020-08-29] MEDS: Ascorbic Acid 500mg tab ORAL SCH (08:58)
[2020-08-29] MEDS: Midodrine 10mg tab ORAL SCH ×3 (08:58→17:01)
[2020-08-29] MEDS: Metoprolol Tartrate 100mg tab ORAL SCH ×2 (09:00→21:00)
--- NOTE | 2020-08-29 10:22 | Infectious Diseases Prog Note ---
"Assessment/Plan Assessment/Plan antibiotics : meropenem A 1. pseudomonas | proteus pneumonia. COVID19 test is negative. 2. proteus | providencia sepsis 3. pseudomonas UTI 4. Hypertension. 5. Atrial fibrillation 6. respiratory failure s/p tracheostomy 7. pleural effusion s/p thoracentesis 8. renal failure P 1. continue meropenem 1 more day 2. will follow up cultures Subjective ROS Limited/Unobtainable: Yes Allergies: Coded Allergies: No Known Allergies (Unverified , 11/02/19) Objective Last 24 Hour Vital Signs Date Time Temp Pulse Resp B/P (MAP) Pulse Ox O2 Delivery O2 Flow Rate FiO2 08/29/20 09:00 92 105/56 08/29/20 08:00 35 08/29/20 08:00 98.2 92 26 105/56 (72) 98 08/29/20 08:00 Mechanical Ventilator 08/29/20 05:19 80 25 35 08/29/20 04:00 97.7 92 26 105/72 (83) 97 08/29/20 04:00 35 08/29/20 04:00 Mechanical Ventilator 08/29/20 04:00 86 08/29/20 03:13 91 27 35 08/29/20 01:08 85 24 35 08/29/20 00:00 86 08/29/20 00:00 35 08/29/20 00:00 98.6 89 24 101/79 (86) 100 08/29/20 00:00 Mechanical Ventilator 08/28/20 23:19 88 24 35 08/28/20 21:53 89 24 35 08/28/20 21:00 89 114/56 08/28/20 20:00 35 08/28/20 20:00 Mechanical Ventilator 08/28/20 20:00 99.1 89 24 114/56 (75) 100 08/28/20 19:48 89 08/28/20 19:36 89 24 35 08/28/20 16:00 96 08/28/20 16:00 99.7 97 22 105/56 (72) 100 08/28/20 16:00 Mechanical Ventilator 08/28/20 16:00 35 08/28/20 15:21 101 28 35 08/28/20 12:00 98.8 92 24 93/43 (60) 98 08/28/20 12:00 92 08/28/20 12:00 Mechanical Ventilator 08/28/20 12:00 35 08/28/20 11:25 99 24 35 Height (Feet): 5 Height (Inches): 4.00 Weight (Pounds): 171 HEENT: status post trach Respiratory/Chest: rhonchi - bilaterally Cardiovascular: normal rate, regular rhythm, no gallop/murmur Abdomen: soft, non tender, other - GT Extremities: other - + edema, left arm PICC Microbiology Date/Time Source Procedure Growth Status 08/28/20 00:10 Stool Clostridium difficile Toxin Assay - Final Complete Laboratory Tests Test 08/29/20 03:45 White Blood Count 6.6 K/UL (4.8-10.8) Red Blood Count 2.59 M/UL (4.70-6.10) L Hemoglobin 7.0 G/DL (14.2-18.0) L Hematocrit 23.3 % (42.0-52.0) L Mean Corpuscular Volume 90 FL (80-99) Mean Corpuscular Hemoglobin 27.2 PG (27.0-31.0) Mean Corpuscular Hemoglobin Concent 30.3 G/DL (32.0-36.0) L Red Cell Distribution Width 17.1 % (11.6-14.8) H Platelet Count 299 K/UL (150-450) Mean Platelet Volume 5.2 FL (6.5-10.1) L Neutrophils (%) (Auto) % (45.0-75.0) Lymphocytes (%) (Auto) % (20.0-45.0) Monocytes (%) (Auto) % (1.0-10.0) Eosinophils (%) (Auto) % (0.0-3.0) Basophils (%) (Auto) % (0.0-2.0) Differential Total Cells Counted 100 Neutrophils % (Manual) 70 % (45-75) Lymphocytes % (Manual) 28 % (20-45) Monocytes % (Manual) 0 % (1-10) L Eosinophils % (Manual) 1 % (0-3) Basophils % (Manual) 1 % (0-2) Band Neutrophils 0 % (0-8) Platelet Estimate Adequate Platelet Morphology Normal Hypochromasia 2+ Anisocytosis 2+ Sodium Level 143 MMOL/L (136-145) Potassium Level 4.6 MMOL/L (3.5-5.1) Chloride Level 113 MMOL/L (98-107) H Carbon Dioxide Level 18 MMOL/L (21-32) L Anion Gap 12 mmol/L (5-15) Blood Urea Nitrogen 75 mg/dL (7-18) H Creatinine 2.2 MG/DL (0.55-1.30) H Estimat Glomerular Filtration Rate 29.9 mL/min (>60) Glucose Level 108 MG/DL (74-106) H Calcium Level 9.0 MG/DL (8.5-10.1) Total Bilirubin 0.5 MG/DL (0.2-1.0) Aspartate Amino Transf (AST/SGOT) 63 U/L (15-37) H Alanine Aminotransferase (ALT/SGPT) 57 U/L (12-78) Alkaline Phosphatase 241 U/L (46-116) H Total Protein 5.3 G/DL (6.4-8.2) L Albumin 0.7 G/DL (3.4-5.0) L Globulin 4.6 g/dL Albumin/Globulin Ratio 0.2 (1.0-2.7) L Current Medications Medications (Trade) Dose Ordered Sig/Clive Route PRN Reason Start Time Stop Time Status Last Admin Dose Admin Acetaminophen (Tylenol) 650 mg Q4H PRN GT Temp >100.5 08/18/20 21:15 09/17/20 21:14 08/27/20 15:39 Amiodarone HCl (Cordarone) 200 mg DAILY GT 08/24/20 09:00 10/28/20 17:59 08/29/20 08:58 Ascorbic Acid (Vitamin C) 500 mg DAILY ORAL 08/17/20 16:00 09/16/20 15:59 08/29/20 08:58 Atorvastatin Calcium (Lipitor) 10 mg BEDTIME ORAL 08/28/20 21:45 11/24/20 20:59 08/28/20 21:45 Chlorhexidine Gluconate (Jennifer-Hex 2%) 1 applic DAILY@1999 TOPIC 07/17/20 20:00 10/15/20 19:59 08/28/20 22:15 Epoetin Tino (Epoetin Tino-EPBX(NON ESRD)) 2,000 unit TUE-TUE-TUE SUBQ 08/25/20 21:00 11/23/20 20:59 08/27/20 21:16 Epoetin Tino (Epoetin Tino-EPBX(NON ESRD)) 3,000 unit TUE- SUBQ 08/25/20 21:00 11/23/20 20:59 08/27/20 21:16 Famotidine (Pepcid) 20 mg Q12HR GT 07/16/20 21:00 10/14/20 20:59 08/29/20 08:58 Finasteride (Proscar) 5 mg DAILY ORAL 07/15/20 09:00 10/13/20 08:59 08/29/20 08:58 Hydralazine HCl (Apresoline) 25 mg Q6H PRN GT SBP above 150 07/24/20 23:30 10/22/20 23:29 07/26/20 05:22 Levetiracetam (Keppra) 1,000 mg Q12HR ORAL 08/22/20 09:07 10/06/20 09:06 08/29/20 08:57 Lorazepam (Ativan 2mg/ml 1ml) 1 mg Q1H PRN IV For Seizures 08/26/20 01:30 09/02/20 01:29 08/26/20 01:39 Meropenem 1 gm/ Sodium Chloride 55 ml @ 110 mls/hr Q12HR IVPB 08/25/20 09:00 08/30/20 23:59 08/29/20 08:58 Metoclopramide HCl (Reglan) 5 mg Q6H IVP 08/21/20 22:00 09/20/20 21:59 08/29/20 09:06 Metoprolol Tartrate (Lopressor) 100 mg Q12HR ORAL 08/13/20 09:00 11/11/20 08:59 08/29/20 09:00 Midodrine (Pro-Amatine) 10 mg THREE TIMES A DAY ORAL 08/28/20 18:00 11/26/20 17:59 08/29/20 08:58 Multivitamins (Multivitamins) 1 tab DAILY ORAL 08/17/20 16:00 09/16/20 15:59 08/29/20 08:58 Sodium Hypochlorite (Dakin's Half Strength) 1 applic DAILY TOPIC 2/2/21 16:30 09/18/20 16:29 08/29/20 08:58 Sodium Chloride 1,000 ml @ 125 mls/hr Q8H IV 08/28/20 02:30 09/27/20 02:29 08/29/20 02:30 Kristie Reina MD Aug 29, 2020 10:22"
--- NOTE | 2020-08-29 11:00 | NUR ---
NURSE NOTES: blood transfusion started now with BP 103/43 HR 74 T 97.9 SPO2 97%. Will continue close monitoring.
--- NOTE | 2020-08-29 11:16 | NUR ---
NURSE NOTES: NO REACTION NOTED, BP 103/53 HR 73 T 97.9 SPO2 97%. WILL CONTINUE CLOSE MONITORING.
[2020-08-29 12:00] VITALS: BP 103/43
--- NOTE | 2020-08-29 12:25 | General Progress Note ---
Subjective ROS Limited/Unobtainable: No Constitutional: Reports: malaise, weakness HEENT: Reports: no symptoms Cardiovascular: Reports: no symptoms Respiratory: Reports: cough, shortness of breath, sputum Gastrointestinal/Abdominal: Reports: difficulty swallowing Genitourinary: Reports: no symptoms Neurologic/Psychiatric: Reports: pre-existing deficit, seizure Endocrine: Reports: no symptoms Hematologic/Lymphatic: Reports: anemia Allergies: Coded Allergies: No Known Allergies (Unverified , 11/02/19) All Systems: reviewed and negative except above Subjective no events. stable on the vent. Patient is awake but nonverbal does not track or follow commands. Patient is tolerating feeding. H&H lower. transfusion ordered. No reports of any bleeding. No fevers noted. Creatinine trending up. bp slightly better Objective Last 24 Hour Vital Signs Date Time Temp Pulse Resp B/P (MAP) Pulse Ox O2 Delivery O2 Flow Rate FiO2 08/29/20 09:00 92 105/56 08/29/20 08:00 35 08/29/20 08:00 83 08/29/20 08:00 98.2 92 26 105/56 (72) 98 08/29/20 08:00 Mechanical Ventilator 08/29/20 07:33 72 24 35 08/29/20 05:19 80 25 35 08/29/20 04:00 97.7 92 26 105/72 (83) 97 08/29/20 04:00 35 08/29/20 04:00 Mechanical Ventilator 08/29/20 04:00 86 08/29/20 03:13 91 27 35 08/29/20 01:08 85 24 35 08/29/20 00:00 86 08/29/20 00:00 35 08/29/20 00:00 98.6 89 24 101/79 (86) 100 08/29/20 00:00 Mechanical Ventilator 08/28/20 23:19 88 24 35 08/28/20 21:53 89 24 35 08/28/20 21:00 89 114/56 08/28/20 20:00 35 08/28/20 20:00 Mechanical Ventilator 08/28/20 20:00 99.1 89 24 114/56 (75) 100 08/28/20 19:48 89 08/28/20 19:36 89 24 35 08/28/20 16:00 96 08/28/20 16:00 99.7 97 22 105/56 (72) 100 08/28/20 16:00 Mechanical Ventilator 08/28/20 16:00 35 08/28/20 15:21 101 28 35 Intake and Output 08/28/20 08/29/20 19:00 07:00 Intake Total 2105 ml 1225 ml Output Total 250 ml 250 ml Balance 1855 ml 975 ml Free Water 200 ml 300 ml IV Total 1305 ml 375 ml Tube Feeding 600 ml 550 ml Output Urine Total 200 ml 250 ml Stool Total 50 ml Laboratory Tests 08/29/20 03:45: White Blood Count 6.6, Red Blood Count 2.59L, Hemoglobin 7.0L, Hematocrit 23.3L, Mean Corpuscular Volume 90, Mean Corpuscular Hemoglobin 27.2, Mean Corpuscular Hemoglobin Concent 30.3L, Red Cell Distribution Width 17.1H, Platelet Count 299, Mean Platelet Volume 5.2L, Neutrophils (%) (Auto) , Lymphocytes (%) (Auto) , Monocytes (%) (Auto) , Eosinophils (%) (Auto) , Basophils (%) (Auto) , Differential Total Cells Counted 100, Neutrophils % (Manual) 70, Lymphocytes % (Manual) 28, Monocytes % (Manual) 0L, Eosinophils % (Manual) 1, Basophils % (Manual) 1, Band Neutrophils 0, Platelet Estimate Adequate, Platelet Morphology Normal, Hypochromasia 2+, Anisocytosis 2+, Sodium Level 143, Potassium Level 4.6, Chloride Level 113H, Carbon Dioxide Level 18L, Anion Gap 12, Blood Urea Nitrogen 75H, Creatinine 2.2H, Estimat Glomerular Filtration Rate 29.9, Glucose Level 108H, Calcium Level 9.0, Total Bilirubin 0.5, Aspartate Amino Transf (AST/SGOT) 63H, Alanine Aminotransferase (ALT/SGPT) 57, Alkaline Phosphatase 241H, Total Protein 5.3L, Albumin 0.7L, Globulin 4.6, Albumin/Globulin Ratio 0.2L Height (Feet): 5 Height (Inches): 4.00 Weight (Pounds): 171 Objective General Appearance: WD/WN, confused EENT: normal ENT inspection. on the vent Neck: normal alignment Cardiovascular: normal rate, regular rhythm Respiratory/Chest: rhonchi - bilaterally Abdomen: normal bowel sounds, non tender, soft, no organomegaly Edema: no edema noted Leg (L), no edema noted Leg (R) Neurologic: disoriented, aphasia Skin: normal pigmentation Assessment/Plan Problem List: (1) Anemia ICD Codes: D64.9 - Anemia, unspecified SNOMED: 880526233, 597599350 Qualifiers: Qualified Codes: D50.0 - Iron deficiency anemia secondary to blood loss (chronic) (2) Pleural effusion, left ICD Codes: J90 - Pleural effusion, not elsewhere classified SNOMED: 45376859, 290068424 (3) Malfunction of gastrostomy tube ICD Codes: K94.23 - Gastrostomy malfunction SNOMED: 132238773 (4) Acute respiratory failure with hypoxia ICD Codes: J96.01 - Acute respiratory failure with hypoxia SNOMED: 07618611, 258485921 (5) HCAP (healthcare-associated pneumonia) ICD Codes: J18.9 - Pneumonia, unspecified organism SNOMED: 809037626, 045271134 Status: stable, progressing Assessment/Plan: iv abx per id trach care resp rx/suctioning as needed vent per pulm ?thoracentesis tube feeds monitor residuals sz rx bp rx monitor h/h transfuse per pulm epogen iron rx repeat cxr midodrine for low bp wound care monitor labs Angel Jaramillo MD Aug 29, 2020 12:25
--- NOTE | 2020-08-29 12:53 | Surgery Progress Note ---
Surgery Progress Note Subjective Additional Comments no acute events bp noted no n/v ill appearing non responsive Objective Last 24 Hour Vital Signs Date Time Temp Pulse Resp B/P (MAP) Pulse Ox O2 Delivery O2 Flow Rate FiO2 08/29/20 12:00 97.9 74 24 103/43 (63) 96 08/29/20 12:00 35 08/29/20 09:00 92 105/56 08/29/20 08:00 35 08/29/20 08:00 83 08/29/20 08:00 98.2 92 26 105/56 (72) 98 08/29/20 08:00 Mechanical Ventilator 08/29/20 07:33 72 24 35 08/29/20 05:19 80 25 35 08/29/20 04:00 97.7 92 26 105/72 (83) 97 08/29/20 04:00 35 08/29/20 04:00 Mechanical Ventilator 08/29/20 04:00 86 08/29/20 03:13 91 27 35 08/29/20 01:08 85 24 35 08/29/20 00:00 86 08/29/20 00:00 35 08/29/20 00:00 98.6 89 24 101/79 (86) 100 08/29/20 00:00 Mechanical Ventilator 08/28/20 23:19 88 24 35 08/28/20 21:53 89 24 35 08/28/20 21:00 89 114/56 08/28/20 20:00 35 08/28/20 20:00 Mechanical Ventilator 08/28/20 20:00 99.1 89 24 114/56 (75) 100 08/28/20 19:48 89 08/28/20 19:36 89 24 35 08/28/20 16:00 96 08/28/20 16:00 99.7 97 22 105/56 (72) 100 08/28/20 16:00 Mechanical Ventilator 08/28/20 16:00 35 08/28/20 15:21 101 28 35 I&O Intake and Output 08/28/20 08/29/20 19:00 07:00 Intake Total 2105 ml 1225 ml Output Total 250 ml 250 ml Balance 1855 ml 975 ml Free Water 200 ml 300 ml IV Total 1305 ml 375 ml Tube Feeding 600 ml 550 ml Output Urine Total 200 ml 250 ml Stool Total 50 ml Dressing: saturated Cardiovascular: RSR Respiratory: decreased breath sounds Abdomen: soft, non-tender, present bowel sounds, non-distended Extremities: other Laboratory Tests Test 08/29/20 03:45 White Blood Count 6.6 K/UL (4.8-10.8) Red Blood Count 2.59 M/UL (4.70-6.10) L Hemoglobin 7.0 G/DL (14.2-18.0) L Hematocrit 23.3 % (42.0-52.0) L Mean Corpuscular Volume 90 FL (80-99) Mean Corpuscular Hemoglobin 27.2 PG (27.0-31.0) Mean Corpuscular Hemoglobin Concent 30.3 G/DL (32.0-36.0) L Red Cell Distribution Width 17.1 % (11.6-14.8) H Platelet Count 299 K/UL (150-450) Mean Platelet Volume 5.2 FL (6.5-10.1) L Neutrophils (%) (Auto) % (45.0-75.0) Lymphocytes (%) (Auto) % (20.0-45.0) Monocytes (%) (Auto) % (1.0-10.0) Eosinophils (%) (Auto) % (0.0-3.0) Basophils (%) (Auto) % (0.0-2.0) Differential Total Cells Counted 100 Neutrophils % (Manual) 70 % (45-75) Lymphocytes % (Manual) 28 % (20-45) Monocytes % (Manual) 0 % (1-10) L Eosinophils % (Manual) 1 % (0-3) Basophils % (Manual) 1 % (0-2) Band Neutrophils 0 % (0-8) Platelet Estimate Adequate Platelet Morphology Normal Hypochromasia 2+ Anisocytosis 2+ Sodium Level 143 MMOL/L (136-145) Potassium Level 4.6 MMOL/L (3.5-5.1) Chloride Level 113 MMOL/L (98-107) H Carbon Dioxide Level 18 MMOL/L (21-32) L Anion Gap 12 mmol/L (5-15) Blood Urea Nitrogen 75 mg/dL (7-18) H Creatinine 2.2 MG/DL (0.55-1.30) H Estimat Glomerular Filtration Rate 29.9 mL/min (>60) Glucose Level 108 MG/DL (74-106) H Calcium Level 9.0 MG/DL (8.5-10.1) Total Bilirubin 0.5 MG/DL (0.2-1.0) Aspartate Amino Transf (AST/SGOT) 63 U/L (15-37) H Alanine Aminotransferase (ALT/SGPT) 57 U/L (12-78) Alkaline Phosphatase 241 U/L (46-116) H Total Protein 5.3 G/DL (6.4-8.2) L Albumin 0.7 G/DL (3.4-5.0) L Globulin 4.6 g/dL Albumin/Globulin Ratio 0.2 (1.0-2.7) L Plan Problems: (1) Decubitus skin ulcer Assessment & Plan: Pt was discharged 08/15/20 and readmitted same day. Pt presented with USER INTERFACE ARTIST Shunt,Tracheostomy , GT and Multiple Pressure Injuries and contractures. Small amt exudate that is of Sanguineous mixed with Formula noted from GT. Mild excoriation noted to Peristomal GT site. Full Thickness Sacral Pressure Injury (L)10.5cm x (W)8.3cm x (D)1.5cm, Undermining clockwise 9-2 by 1.3cm @10'oclock. Base of wound is 90% granular 10% necrotic. NO odor noted. Small amt serosanguineous exudate noted.Periwound is erythematous and indurated. No changes in skin temp noted. Full Thickness Pressure Injury Outer L Lower Quadrant of Buttocks.(L)5.5cm x (W)7cm x (D)1.5cm, Undermining clockwise 9-3 by 4.5cm @12o'clock, Tunneled area within base of wound by 5.5cm @ 1-2o'clock. Base of wound is 85% % moist and pink ,15% necrotic at base at undermined area of wound. Bone exposure noted. Small amt serosanguineous exudate noted. Periwound is erythematous and indurated. No odor noted. Full thickness Pressure Injury L Ischium(L)2cm x (W)0.9cm x (D)0.3cm. Base of wound is moist, and pink. Edges are adherent to base of wound. Periwound is maroon and indurated. NO changes in skin temp periwound. NO odor noted. Non-Blanchable erythema without induration noted to R Hip /R trochanteric.. Full Thickness Pressure Injury lateral L Tibia(L)21.5cm x (W)3.5cm x (D)0.2cm. Base of wound is 95% granular,5% necrosis along borders. Edges are adherent to base of wound . Moderate amt sanguineous exudate noted. No odor noted.Periwound skin colour is darker than is normal tone but without erythema or induration. Full thickness Pressure Injury L Heel extending into Plantar aspect of heel(L)8.7cm x (W)6.5cm x(D)0.6cm.Base of wound is 60% beefy granulation,40% necrotic. Bone is palpable. (+) Epibole at proximal borders of wound in close proximity with achilles. Small amt haemopurulent exudate noted. Wound is malodorous. Periwound is dusky and indurated. Full Thickness Pressure Injury Lateral L Foot (L)1.9cm x (W)3.4cm x (D)0.3cm, undermining clockwise 9-3 by 0.2cm @9o'clock. Base of wound is 10% necrotic 90% antonio. Wound is malodorous. Edges are macerate with scattered areas of necrosis along edges. Small amt haemopurulent exudate noted.Periwound is fluctuant and dusky. Full Thickness Pressure Injury distal/lateral L foot(L)1.3cm x (W)3.7cm x (D)0.2 cm. Base of wound is 80% soft necrosis,20% moist and pink. edges are macerated. Wound is malodorous. Small amt brown exudate noted . Periwound is dusky and fluctuant. Unstageable Pressure injury dorsal L foot (L)1cm x (W)0.9cm. Base of wound is 100% necrotic. Edges are erythematous and macerated. Periwound without erythema,induration or fluctuance. Full thickness Pressure Injury R Heel including plantar aspect of heel (L)8.7cm x (W)6.5cm x (D)0.6cm. Base of wound is 60% beefy granulation,40% necrotic. Bone exposure at base of wound. Moderate amt haemopurulent exudate. Wound is malodorous. Proximal edges of wound within close proximity with achilles is rolled. Edges are otherwise macerated. Periwound is fluctuant and dusky. Full Thickness Pressure Injury distal/lateral R foot (L)0.5cm x (W)0.6cm. Base of wound is 100% fibrinous slough. Erythematous borders. Periwound without induration or fluctuance. Small amt serous exudate noted. Tx.Plan: Wash GT site with Soap and Water. Pat dry. Apply Moisture Barrier Paste around Gt Daily. Leave open to Air. Cleanse Sacral wound, L buttocks, and L Ischia wounds with Dakin's 0.25% Kristel. Loosely pack wounds with Dakin's moistened Kerlix.Apply Triad Paste periwound. Cover with Optifoam drsgs Daily and prn. Cleanse wound Lateral L Tibia with Dakin's o.25% Kristel. Rinse with Saline. Apply Promogran moistened with Saline. Apply Moisture Barrier Paste along borders. Cover with ABD Pads. Wrap with Kerlix every Mon-Wed-Fri (NOTE: Wound Nurse to Aplpy Promogran) Cleanse wounds L Foot with Dakin's 0.25% Kristel. Apply Dakin's moistened Gauze to each wound. Apply Triad Paste along Borders of each wound. Cover with ABD Pads and wrap with Kerlix Daily and prn. Cleanse R Heel wound with Dakin's 0.25% Kristel. Apply Dakin's Moistened Gauze to wound. Apply Triad Paste Periwound. Cover with ABD Pad. Wrap with Kerlix Daily and prn. Reposition at least every 2hours or as tolerated. Place Pillow Between Knees. Off-load heels with 2 Pillows. APM/TERRIE Mattress overlay. Sacral wound,L Buttocks, L Ischial wounds cleansed with Dakin's and each wound loosely packed with Dakin's moistened Kerlix.Moisture Barrier Paste applied to borders of each wound and each wound covered with Optifoam drsgs. Perianal area noted to be red and excoriated. Moisture Barrier Paste applied to affected area. Drsgs to L tibia, L Heel and R Heel noted to be saturated and malodorous. Both lower ext washed with Chlorhexidine soap prior to providing wound care.Base of wound lateral L Tibia beefy red. Edges are adherent with an area of 5% necrosis distally. Small amt sanguineous exudate No erythema or changes in skin temp p eriwound. Wound Later L Tibia cleansed with Saline. Promogran applied to base of wound.Moisture Barrier Paste applied along borders. Covered with ABD pad. Wrapped with Kerlix. R and L Heel wounds cleansed Dakin's 0.25% kristel. Dakin's moistened gauze applied to each wound Moisture Barrier Paste applied to borders of each wound and each wound covered with Abd Pads and each heel wrapped with Kerlix drsgs. Skin under tracheal collar assessed and no evidence of skin breakdown noted. Peristomal Gt site is resolving, Skin is moist but pink.No new skin concerns noted. ill appearing leg worsening would not tolerate amputation (2) Anemia Assessment & Plan: trend h/h prbc prn (3) UTI (urinary tract infection) (4) Pleural effusion, left Assessment & Plan: Ultrasound used to localize optimal puncture site. Sterile prepping and draping left chest. Local anesthesia with 1% lidocaine. Under real-time ultrasound guidance, puncture pleural space using thoracentesis needle. Stylet removed. Catheter placed to vacuum bottle suction. Total 1700 milliliters of fluid aspirated. Patient tolerated procedure well, without immediate complication. Findings: Followup sonography demonstrates small amount of residual pleural fluid. Impression: Successful ultrasound-guided thoracentesis, yielding 1700 milliliters of fluid Lungs: Hazy left lung attenuation could be due to consolidation, pulmonary edema; correlate with presentation. Retrocardiac atelectasis without or with consolidation. Pleural space: Small-moderate left pleural effusion with passive atelectasis. No pneumothorax. Heart: Unremarkable. No cardiomegaly. Mediastinum: Unremarkable. Bones/joints: No acute abnormality Tubes, lines and devices: Tracheostomy. Right upper extremity PICC tip in the mid SVC. IMPRESSION: 1. Tracheostomy. 2. Right upper extremity PICC tip in the mid SVC. 3. Small-moderate left pleural effusion with passive atelectasis. 4. Hazy left lung attenuation could be due to consolidation, pulmonary edema; correlate with presentation. 5. Retrocardiac atelectasis without or with consolidation. 6. Recommend CT chest with IV contrast to further characterize these findings. plan repeat thora (5) Malfunction of gastrostomy tube Assessment & Plan: DAILY ESTIMATED NEEDS: Needs based on Wounds, pulmonary/ 74.5kg 25-30 kcals/kg 8106-8019 total kcals 1.5-2 g protein/kg 111-149 g total protein 25-30 mL/kg 5048-2396 total fluid mLs NUTRITION DIAGNOSIS: * Swallowing difficulty R/T dysphagia, h/o craniotomy, respiratory failure as evidenced by pt on T-collar, GJ tube dependent. * Increased kcal/prot/micronutrients needs R/T wound healing as evidenced by pt admitted w/ multiple advanced wounds including full thickness wound x 7 and unstageable wounds x 2, refer to eval. CURRENT TF:Vital AF 1.2 @70ml/hr ENTERAL NUTRITION RECOMMENDATIONS: Vital AF 1.2 @ 65ml/hr x 24 hrs to provide 1560ml, 1872kcal, 117g prot, 1265ml free water * Lower goal rate to 65ml/hr x 24 hrs: meets 100% est kcal/prot needs * HOB over 30 degrees/ water flush 180ml q 6hrs without IVF ------ elemental TF formula of Vital AF not indicated, consider changing TF to Glucerna 1.2 @ 65ml/hr x 24 hrs + Prosource 1pkt TID to provide 1560ml, 1872kcal, 94g+ 33g prot, 1259ml free water ADDITIONAL RECOMMENDATIONS: * Calibrated bedscale wt * Wound Care: Con't Vit C 500mg BID, ZnSO4 220mg QD x 10 days add Stevie BID * Monitor lytes, replete as needed * DC D5 for improved BG control increase H2O flushes instead (Na now wnl, BUN elev) * Rec NISS (6) Acute respiratory failure with hypoxia (7) HCAP (healthcare-associated pneumonia) Deny Westfall Aug 29, 2020 12:53
--- NOTE | 2020-08-29 13:19 | Diagnostic Imaging Report ---
Indication: Cough Technique: One view of the chest Comparison: 08/25/2020 Findings: Left pleural effusion appears somewhat improved although still large. Ill-defined parenchymal opacities are again demonstrated in the right lung. Tracheostomy is again demonstrated. Left chest ventriculoperitoneal shunt tubing is again demonstrated Impression: Improved but still large left pleural effusion Other stable findings as described
--- NOTE | 2020-08-29 13:49 | NUR ---
NURSE NOTES: the first bag of blood finished 1335, no reaction noted. bag sent to lab. the second bag started now BP 109/ 56 HR 75 SPO2 97 T 97.7. Will continue to close monitoring.
--- NOTE | 2020-08-29 14:05 | NUR ---
NURSE NOTES: After 15 min blood transfusion, no reaction noted. BP 103/51 HR 71 T 97.7. Will continue to close monitoring.
--- NOTE | 2020-08-29 15:32 | NUR ---
CASE MANAGEMENT:REVIEW 08/29/20 SI: PNA. UTI. BACTEREMIA.PLEURAL EFFUSION 97.9 74 24 103/43 96% ON VENT SUPPORT W/35% FIO2 VIA TRACH H/H-7.0/23.3 BUN+75 CR+2.2 IS: IV MEROPENEM Q12 IVF@125/HR AMIODARONE GT QD KEPPRA GT Q12 IV REGLAN Q6HRS EPOETIN SQ MWF : NOW ON STEP DOWN UNIT DCP: REFERRED TO JOVON FINCH PLAN: WEAN OFF VENT
[2020-08-29 16:00] VITALS: BP 103/52
--- NOTE | 2020-08-29 16:00 | NUR ---
NURSE NOTES: wound treatment and g tube dressing changed as order and pt tolerated well. will continue to monitor.
--- NOTE | 2020-08-29 16:35 | NUR ---
NURSE NOTES: the second bag blood finished, no reaction noted. BP 108/55 HR 72 T 97.7 SPO2 97%. Will continue close monitoring. bag sent to lab.
--- NOTE | 2020-08-29 18:29 | NUR ---
NURSE NOTES: Per RT Estefani trach cuff is leaking, Dr Devlin is aware and ordered to change trach, RT Jara is aware. will continue to close monitoring.
--- NOTE | 2020-08-29 19:35 | NUR ---
NURSE HAND-OFF REPORT: Important Events on Shift: 2 unit PRBC given to pt. trach cuff is leaking. Patient Status: Diet: Pending Orders: Pending Results/Labs: Pending MD notification: Latest Vital Signs: Temperature 98.0 , Pulse 72 , B/P 103 /52 , Respiratory Rate 25 , O2 SAT 96 , Trach Collar, O2 Flow Rate 10.0 . Vital Sign Comment: EKG Rhythm: Sinus Rhythm Rhythm change?: N MD Notified?: Nadine Mak and [place] VALDEZ Response: Message left await call Latest Ramirez Fall Score: 70 Fall Risk: High Risk Safety Measures: Call light Within Reach, Bed Alarm Zone 1, Side Rails Side Rails x3, Bed position Low and Locked. Fall Precautions: Yellow Socks Patient Fall Education Report given to . pt is awake and stable, no stress noted. endorsed plan of care, endorsed to F/U changing trach.
--- NOTE | 2020-08-29 19:40 | NUR ---
NURSE NOTES: Received patient from SELIN Jacques under the care of Dr. Devlin for the admitting dx of PNA. Noted NKA and full code status. Contact isolation (for multiple organisms) and seizure precautions observed and maintained at all times. Patient noted to be obtunded with eyes open, no tracking. Tolerating Vent settings (A-C24 TV-500 FiO2-35% PEEP-5) well with no acute distress noted at this time. Will continue to monitor.
--- NOTE | 2020-08-29 19:42 | General Progress Note ---
Subjective Allergies: Coded Allergies: No Known Allergies (Unverified , 11/02/19) Subjective seen earlier today d/w RN difficulty tolerating TF due to high residual despite reglan stool C Diff negative Objective Last 24 Hour Vital Signs Date Time Temp Pulse Resp B/P (MAP) Pulse Ox O2 Delivery O2 Flow Rate FiO2 08/29/20 16:00 Mechanical Ventilator 08/29/20 16:00 35 08/29/20 16:00 98.0 72 25 103/52 (69) 96 08/29/20 15:55 58 27 35 08/29/20 15:47 64 08/29/20 12:00 97.9 74 24 103/43 (63) 96 08/29/20 12:00 35 08/29/20 12:00 72 08/29/20 12:00 Mechanical Ventilator 08/29/20 11:57 71 24 35 08/29/20 09:00 92 105/56 08/29/20 08:00 35 08/29/20 08:00 83 08/29/20 08:00 98.2 92 26 105/56 (72) 98 08/29/20 08:00 Mechanical Ventilator 08/29/20 07:33 72 24 35 08/29/20 05:19 80 25 35 08/29/20 04:00 97.7 92 26 105/72 (83) 97 08/29/20 04:00 35 08/29/20 04:00 Mechanical Ventilator 08/29/20 04:00 86 08/29/20 03:13 91 27 35 08/29/20 01:08 85 24 35 08/29/20 00:00 86 08/29/20 00:00 35 08/29/20 00:00 98.6 89 24 101/79 (86) 100 08/29/20 00:00 Mechanical Ventilator 08/28/20 23:19 88 24 35 08/28/20 21:53 89 24 35 08/28/20 21:00 89 114/56 08/28/20 20:00 35 08/28/20 20:00 Mechanical Ventilator 08/28/20 20:00 99.1 89 24 114/56 (75) 100 08/28/20 19:48 89 08/28/20 19:36 89 24 35 Intake and Output 08/28/20 08/29/20 19:00 07:00 Intake Total 2105 ml 1275 ml Output Total 250 ml 250 ml Balance 1855 ml 1025 ml Free Water 200 ml 300 ml IV Total 1305 ml 375 ml Tube Feeding 600 ml 600 ml Output Urine Total 200 ml 250 ml Stool Total 50 ml Laboratory Tests 08/29/20 03:45: White Blood Count 6.6, Red Blood Count 2.59L, Hemoglobin 7.0L, Hematocrit 23.3L, Mean Corpuscular Volume 90, Mean Corpuscular Hemoglobin 27.2, Mean Corpuscular Hemoglobin Concent 30.3L, Red Cell Distribution Width 17.1H, Platelet Count 299, Mean Platelet Volume 5.2L, Neutrophils (%) (Auto) , Lymphocytes (%) (Auto) , Monocytes (%) (Auto) , Eosinophils (%) (Auto) , Basophils (%) (Auto) , Differential Total Cells Counted 100, Neutrophils % (Manual) 70, Lymphocytes % (Manual) 28, Monocytes % (Manual) 0L, Eosinophils % (Manual) 1, Basophils % (Manual) 1, Band Neutrophils 0, Platelet Estimate Adequate, Platelet Morphology Normal, Hypochromasia 2+, Anisocytosis 2+, Sodium Level 143, Potassium Level 4.6, Chloride Level 113H, Carbon Dioxide Level 18L, Anion Gap 12, Blood Urea Nitrogen 75H, Creatinine 2.2H, Estimat Glomerular Filtration Rate 29.9, Glucose Level 108H, Calcium Level 9.0, Total Bilirubin 0.5, Aspartate Amino Transf (AST/SGOT) 63H, Alanine Aminotransferase (ALT/SGPT) 57, Alkaline Phosphatase 241H, Total Protein 5.3L, Albumin 0.7L, Globulin 4.6, Albumin/Globulin Ratio 0.2L Height (Feet): 5 Height (Inches): 4.00 Weight (Pounds): 171 Objective Eldely WM NCAT (+) trach , T tube Coarse BS RRR abd soft (+) GT ext no edema Assessment/Plan Status: stable, progressing Assessment/Plan: Assessment - Abnormal LFT - UGIB - resolved - Anemia, s/p transfusion - hypotension - h/o PUD - resp failure, s/p trach - dysphagia, s/p PEG - atrial fibrillation - h/o DVT - hypernatremia - loose BM - decubitus ulcers - poor prognosis Recommendations - follow LFT - H2B BID indefinitely - vital AF 1.2 at 80 cc/hr - but only tolerating 50 cc/hr at this time - protein supplements - TID - MVI - Vitamin C - free water - follow H&H - monitor BM Akiko Rai MD Aug 29, 2020 19:42
[2020-08-29 20:00] VITALS: BP 112/51
--- NOTE | 2020-08-29 21:00 | NUR ---
NURSE NOTES: Patient tolerated due meds well. Lopressor held due to low bp. No acute distress noted. Will continue to monitor.
[2020-08-29] MEDS: Atorvastatin 20mg tab ORAL SCH (22:11)
[2020-08-29] MEDS: Dyna-Hex 2% Top Sol 2oz TOPIC SCH (22:11)
[2020-08-29] MEDS: Epoetin Alfa-EPBX (NON ESRD) 3000 units/ml vial SUBQ SCH (22:12)
[2020-08-29] MEDS: Epoetin Alfa-EPBX (NON ESRD) 2000 units/ml vial SUBQ SCH (22:12)
--- NOTE | 2020-08-29 22:34 | Neurology Progress Note ---
Interim History Interim History ROS Limited/Unobtainable: No Interim History alert but non verbal Objective Physical Exam Last Vital Signs Date Time Temp Pulse Resp B/P (MAP) Pulse Ox O2 Delivery O2 Flow Rate FiO2 08/29/20 21:00 77 103/52 08/29/20 20:24 27 35 08/29/20 16:00 Mechanical Ventilator 08/29/20 16:00 98.0 96 08/25/20 09:00 10.0 Laboratory Tests Test 08/29/20 03:45 White Blood Count 6.6 K/UL (4.8-10.8) Red Blood Count 2.59 M/UL (4.70-6.10) L Hemoglobin 7.0 G/DL (14.2-18.0) L Hematocrit 23.3 % (42.0-52.0) L Mean Corpuscular Volume 90 FL (80-99) Mean Corpuscular Hemoglobin 27.2 PG (27.0-31.0) Mean Corpuscular Hemoglobin Concent 30.3 G/DL (32.0-36.0) L Red Cell Distribution Width 17.1 % (11.6-14.8) H Platelet Count 299 K/UL (150-450) Mean Platelet Volume 5.2 FL (6.5-10.1) L Neutrophils (%) (Auto) % (45.0-75.0) Lymphocytes (%) (Auto) % (20.0-45.0) Monocytes (%) (Auto) % (1.0-10.0) Eosinophils (%) (Auto) % (0.0-3.0) Basophils (%) (Auto) % (0.0-2.0) Differential Total Cells Counted 100 Neutrophils % (Manual) 70 % (45-75) Lymphocytes % (Manual) 28 % (20-45) Monocytes % (Manual) 0 % (1-10) L Eosinophils % (Manual) 1 % (0-3) Basophils % (Manual) 1 % (0-2) Band Neutrophils 0 % (0-8) Platelet Estimate Adequate Platelet Morphology Normal Hypochromasia 2+ Anisocytosis 2+ Sodium Level 143 MMOL/L (136-145) Potassium Level 4.6 MMOL/L (3.5-5.1) Chloride Level 113 MMOL/L (98-107) H Carbon Dioxide Level 18 MMOL/L (21-32) L Anion Gap 12 mmol/L (5-15) Blood Urea Nitrogen 75 mg/dL (7-18) H Creatinine 2.2 MG/DL (0.55-1.30) H Estimat Glomerular Filtration Rate 29.9 mL/min (>60) Glucose Level 108 MG/DL (74-106) H Calcium Level 9.0 MG/DL (8.5-10.1) Total Bilirubin 0.5 MG/DL (0.2-1.0) Aspartate Amino Transf (AST/SGOT) 63 U/L (15-37) H Alanine Aminotransferase (ALT/SGPT) 57 U/L (12-78) Alkaline Phosphatase 241 U/L (46-116) H Total Protein 5.3 G/DL (6.4-8.2) L Albumin 0.7 G/DL (3.4-5.0) L Globulin 4.6 g/dL Albumin/Globulin Ratio 0.2 (1.0-2.7) L Head: normocophalic Neck: no rigidity EENT: benign Neurologic Exam Objective lethargic, pupils reactive not following withdraws to pain Impression/Recommendations Problems: (1) Malfunction of gastrostomy tube (2) Anemia (3) Pleural effusion, left (4) Acute respiratory failure with hypoxia (5) HCAP (healthcare-associated pneumonia) (6) UTI (urinary tract infection) Status: stable, progressing Diagnostic Impression Recurrent sepsis Possible aspiration Encephalopathy, acute on chronic rule out seizures map > 65 ro covid cont atb fu cultures no need for AED now Gerson Singh MD Aug 29, 2020 22:34
[2020-08-30] VITALS: BP 110/53
--- NOTE | 2020-08-30 | NUR ---
NURSE NOTES: Trach change performed at bedside by Dr. Rios with RT assistance. Patient tolerated procedure well. Noted with scant sanguineous discharge at site. Tolerating settings well. Will continue to monitor. Addendum: 08/30/20 at 0351 by Gopal Rivera RN RN Change was performed at 2039.
--- NOTE | 2020-08-30 03:00 | NUR ---
NURSE NOTES: Patient tolerating vent settings well. Noted scant serosanguineous discharge at trach site. No distress noted. Airway is clear and patent at all times. Will continue to monitor.
--- NOTE | 2020-08-30 03:47 | Emergency Room Report ---
Physical Exam Called to change trach. Apparently balloon not keeping pressures. Last 24 Hour Vital Signs Date Time Temp Pulse Resp B/P (MAP) Pulse Ox O2 Delivery O2 Flow Rate FiO2 08/30/20 00:00 98.1 81 26 110/53 (72) 99 08/30/20 00:00 81 08/30/20 00:00 Mechanical Ventilator 08/30/20 00:00 35 08/29/20 23:55 81 29 35 08/29/20 21:00 77 103/52 08/29/20 20:24 77 27 35 08/29/20 20:00 97.3 77 30 112/51 (71) 97 08/29/20 20:00 75 08/29/20 20:00 35 08/29/20 20:00 Mechanical Ventilator 08/29/20 19:28 72 26 35 08/29/20 16:00 Mechanical Ventilator 08/29/20 16:00 35 08/29/20 16:00 98.0 72 25 103/52 (69) 96 08/29/20 15:55 58 27 35 08/29/20 15:47 64 08/29/20 12:00 97.9 74 24 103/43 (63) 96 08/29/20 12:00 35 08/29/20 12:00 72 08/29/20 12:00 Mechanical Ventilator 08/29/20 11:57 71 24 35 08/29/20 09:00 92 105/56 08/29/20 08:00 35 08/29/20 08:00 83 08/29/20 08:00 98.2 92 26 105/56 (72) 98 08/29/20 08:00 Mechanical Ventilator 08/29/20 07:33 72 24 35 08/29/20 05:19 80 25 35 08/29/20 04:00 97.7 92 26 105/72 (83) 97 08/29/20 04:00 35 08/29/20 04:00 Mechanical Ventilator 08/29/20 04:00 86 [id number] EP Interpretation: reviewed, normal General Appearance: Chronically Ill Head: normocephalic Eyes: bilateral eye normal inspection, bilateral eye PERRL, bilateral eye other - eyes deviated left ENT: moist mucus membranes Neck: tracheotomy Respiratory: other - chest rise normal Additional Procedure Procedure Narrative Prior trachemoved. Inserted new trac Balloon inflated and secured by RT. Tolerated well. Medical Decision Making Diagnostic Impression: Primary Impression: HCAP (healthcare-associated pneumonia) Additional Impressions: Acute respiratory failure with hypoxia Anemia Qualified Codes: D50.0 - Iron deficiency anemia secondary to blood loss (chronic) UTI (urinary tract infection) Qualified Codes: N30.00 - Acute cystitis without hematuria Pleural effusion, left ER Course Trach balloon failure. See procedure notes. Trach replaced without incident. Tolerated well. Last Vital Signs Date Time Temp Pulse Resp B/P (MAP) Pulse Ox O2 Delivery O2 Flow Rate FiO2 08/30/20 00:00 98.1 81 26 110/53 (72) 99 08/30/20 00:00 Mechanical Ventilator 08/30/20 00:00 35 Status: improved Disposition: ADMITTED INPATIENT Condition: Serious Referrals: Nikita Devlin MD (PCP) Patient Instructions: Urinary Tract Infection, [id number], Pleural Effusion, Acute Respiratory Failure Dylan Rios MD Aug 30, 2020 03:47
[2020-08-30 04:00] VITALS: BP 119/52
[2020-08-30] MEDS: Metoclopramide 10mg/2ml Inj IVP SCH ×4 (04:27→21:01)
--- NOTE | 2020-08-30 07:30 | NUR ---
NURSE HAND-OFF REPORT: Important Events on Shift: - Patient Status: Stable Diet: GT Pending Orders: Pending Results/Labs: Pending MD notification: Latest Vital Signs: Temperature 99.0 , Pulse 85 , B/P 119 /52 , Respiratory Rate 26 , O2 SAT 96 , Trach Collar, O2 Flow Rate 10.0 . Vital Sign Comment: WNL EKG Rhythm: SRw/BBB Rhythm change?: N MD Notified?: Nadine Mak and Quita VALDEZ Response: Message left await call Latest Ramirez Fall Score: 70 Fall Risk: High Risk Safety Measures: Call light Within Reach, Bed Alarm Zone 1, Side Rails Side Rails x3, Bed position Low and Locked. Fall Precautions: Yellow Socks Patient Fall Education Report given to SELNI Nowak.
--- NOTE | 2020-08-30 07:30 | NUR ---
NURSE NOTES: Report received from SELIN Herron. Patient is on bed, no signs of grimacing and distress noted. Trache-vented S4 with settings of AC 24, TV 500, FiO2 30%, PEEP 5, tolerating well. Has a GT, patent, intact, and running Vital AF at 50cc/hr, will eventually increase because the goal rate is 80 cc/hr. Will increase rate depending how the patient can tolerate it. Has a rectal tube, patent and intact, and a valles catheter, patent, intact, and draining dark alec urine. With a L UA PICC line running NS at 125cc/hr. HOB elevated, bed on lowest position, side rails up and padded, locked. Will continue to be monitored. Will continue plan of care.
[2020-08-30 08:00] VITALS: BP 117/54
[2020-08-30 09:06] LABS: BASOPHILS % (AUTO) 1.4 % (0.0-2.0); EOSINOPHILS % (AUTO) 5.4 % (0.0-3.0); HEMATOCRIT 30.7 % (42.0-52.0); HEMOGLOBIN 9.5 G/DL (14.2-18.0); LYMPHOCYTES % (AUTO) 16.3 % (20.0-45.0); MEAN CORPUSCULAR VOLUME 91 FL (80-99); MONOCYTES % (AUTO) 7.3 % (1.0-10.0); NEUTROPHILS % (AUTO) 69.7 % (45.0-75.0); PLATELET COUNT 346 K/UL (150-450); RED BLOOD COUNT 3.38 M/UL (4.70-6.10); RED CELL DISTRIBUTION WIDTH 16.4 % (11.6-14.8); WHITE BLOOD COUNT 6.5 K/UL (4.8-10.8)
[2020-08-30] MEDS: Meropenem 1 GM in NS 55 ML IVPB SCH ×2 (09:21→20:18)
[2020-08-30] MEDS: Ascorbic Acid 500mg tab ORAL SCH (09:22)
[2020-08-30] MEDS: Midodrine 10mg tab ORAL SCH ×3 (09:22→18:20)
[2020-08-30] MEDS: Metoprolol Tartrate 100mg tab ORAL SCH ×2 (09:23→20:17)
[2020-08-30] MEDS: Amiodarone 200mg tab GT SCH (09:23)
[2020-08-30] MEDS: Dakin's 0.25% (Half Strength) 16oz TOPIC SCH (09:24)
--- NOTE | 2020-08-30 10:02 | Infectious Diseases Prog Note ---
Assessment/Plan Assessment/Plan A: 1. Pseudomonas & Proteus pneumonia. 2. Providencia & Proteus sepsis 3. Hypertension. 4. Atrial fibrillation. 5. anemia 6. S/p tracheostomy 7. s/p GT 8. Left pleural effusion, recurrent 9. Bacteremia with Staph epidermidis 10. ? PICC line infection, line was changed 11. Pseudomonas bacteriuria 12. Pressure ulcers 13. Acute renal failure 14. GI bleeding PLAN: 1. Continue Meropenem until tonight 2. Wound care Subjective ROS Limited/Unobtainable: Yes Allergies: Coded Allergies: No Known Allergies (Unverified , 11/02/19) Objective Last 24 Hour Vital Signs Date Time Temp Pulse Resp B/P (MAP) Pulse Ox O2 Delivery O2 Flow Rate FiO2 08/30/20 09:23 94 121/56 08/30/20 08:31 87 08/30/20 08:00 Mechanical Ventilator 08/30/20 08:00 97.9 88 17 117/54 (75) 93 88 08/30/20 08:00 35 08/30/20 04:00 99.0 92 26 119/52 (74) 96 08/30/20 04:00 85 08/30/20 04:00 Mechanical Ventilator 08/30/20 04:00 35 08/30/20 03:41 81 26 35 08/30/20 00:00 98.1 81 26 110/53 (72) 99 08/30/20 00:00 81 08/30/20 00:00 Mechanical Ventilator 08/30/20 00:00 35 08/29/20 23:55 81 29 35 08/29/20 21:00 77 103/52 08/29/20 20:24 77 27 35 08/29/20 20:00 97.3 77 30 112/51 (71) 97 08/29/20 20:00 75 08/29/20 20:00 35 08/29/20 20:00 Mechanical Ventilator 08/29/20 19:28 72 26 35 08/29/20 16:00 Mechanical Ventilator 08/29/20 16:00 35 08/29/20 16:00 98.0 72 25 103/52 (69) 96 08/29/20 15:55 58 27 35 08/29/20 15:47 64 08/29/20 12:00 97.9 74 24 103/43 (63) 96 08/29/20 12:00 35 08/29/20 12:00 72 08/29/20 12:00 Mechanical Ventilator 08/29/20 11:57 71 24 35 Height (Feet): 5 Height (Inches): 4.00 Weight (Pounds): 171 HEENT: status post trach Respiratory/Chest: rhonchi - bilaterally, other - on ventilator Cardiovascular: normal rate, other - PICC line Abdomen: soft, non tender, other - GT & rectal tube Extremities: other - edema of arms Neurologic/Psychiatric: aphasia Microbiology Date/Time Source Procedure Growth Status 08/28/20 00:10 Stool Clostridium difficile Toxin Assay - Final Complete Laboratory Tests Test 08/30/20 08:36 White Blood Count 6.5 K/UL (4.8-10.8) Red Blood Count 3.38 M/UL (4.70-6.10) L Hemoglobin 9.5 G/DL (14.2-18.0) #L Hematocrit 30.7 % (42.0-52.0) #L Mean Corpuscular Volume 91 FL (80-99) Mean Corpuscular Hemoglobin 28.1 PG (27.0-31.0) Mean Corpuscular Hemoglobin Concent 31.0 G/DL (32.0-36.0) L Red Cell Distribution Width 16.4 % (11.6-14.8) H Platelet Count 346 K/UL (150-450) Mean Platelet Volume 5.2 FL (6.5-10.1) L Neutrophils (%) (Auto) 69.7 % (45.0-75.0) Lymphocytes (%) (Auto) 16.3 % (20.0-45.0) L Monocytes (%) (Auto) 7.3 % (1.0-10.0) Eosinophils (%) (Auto) 5.4 % (0.0-3.0) H Basophils (%) (Auto) 1.4 % (0.0-2.0) Sodium Level Pending Potassium Level Pending Chloride Level Pending Carbon Dioxide Level Pending Blood Urea Nitrogen Pending Creatinine Pending Estimat Glomerular Filtration Rate Pending Glucose Level Pending Calcium Level Pending Total Bilirubin Pending Aspartate Amino Transf (AST/SGOT) Pending Alanine Aminotransferase (ALT/SGPT) Pending Alkaline Phosphatase Pending Total Protein Pending Albumin Pending Globulin Pending Current Medications Medications (Trade) Dose Ordered Sig/Clive Route PRN Reason Start Time Stop Time Status Last Admin Dose Admin Acetaminophen (Tylenol) 650 mg Q4H PRN GT Temp >100.5 08/18/20 21:15 09/17/20 21:14 08/27/20 15:39 Amiodarone HCl (Cordarone) 200 mg DAILY GT 08/24/20 09:00 10/28/20 17:59 08/30/20 09:23 Ascorbic Acid (Vitamin C) 500 mg DAILY ORAL 08/17/20 16:00 09/16/20 15:59 08/30/20 09:22 Atorvastatin Calcium (Lipitor) 10 mg BEDTIME ORAL 08/28/20 21:45 11/24/20 20:59 08/29/20 22:11 Chlorhexidine Gluconate (Jennifer-Hex 2%) 1 applic DAILY@1999 TOPIC 07/17/20 20:00 10/15/20 19:59 08/29/20 22:11 Epoetin Tino (Epoetin Tino-EPBX(NON ESRD)) 2,000 unit TUE-TUE-TUE SUBQ 08/25/20 21:00 11/23/20 20:59 08/29/20 22:12 Epoetin Tino (Epoetin Tino-EPBX(NON ESRD)) 3,000 unit SUBQ 08/25/20 21:00 11/23/20 20:59 08/29/20 22:12 Famotidine (Pepcid) 20 mg Q12HR GT 07/16/20 21:00 10/14/20 20:59 08/30/20 09:23 Finasteride (Proscar) 5 mg DAILY ORAL 07/15/20 09:00 10/13/20 08:59 08/30/20 09:23 Hydralazine HCl (Apresoline) 25 mg Q6H PRN GT SBP above 150 07/24/20 23:30 10/22/20 23:29 07/26/20 05:22 Levetiracetam (Keppra) 1,000 mg Q12HR ORAL 08/22/20 09:07 10/06/20 09:06 08/30/20 09:22 Lorazepam (Ativan 2mg/ml 1ml) 1 mg Q1H PRN IV For Seizures 08/26/20 01:30 09/02/20 01:29 08/26/20 01:39 Meropenem 1 gm/ Sodium Chloride 55 ml @ 110 mls/hr Q12HR IVPB 08/25/20 09:00 08/30/20 23:59 08/30/20 09:21 Metoclopramide HCl (Reglan) 5 mg Q6H IVP 08/21/20 22:00 09/20/20 21:59 08/30/20 09:22 Metoprolol Tartrate (Lopressor) 100 mg Q12HR ORAL 08/13/20 09:00 11/11/20 08:59 08/30/20 09:23 Midodrine (Pro-Amatine) 10 mg THREE TIMES A DAY ORAL 08/28/20 18:00 11/26/20 17:59 08/30/20 09:22 Multivitamins (Multivitamins) 1 tab DAILY ORAL 08/17/20 16:00 09/16/20 15:59 08/30/20 09:22 Sodium Hypochlorite (Dakin's Half Strength) 1 applic DAILY TOPIC 08/19/20 16:30 09/18/20 16:29 08/30/20 09:24 Sodium Chloride 1,000 ml @ 125 mls/hr Q8H IV 08/28/20 02:30 09/27/20 02:29 08/30/20 02:30 Steve Nelson MD Aug 30, 2020 10:02
[2020-08-30 10:04] LABS: ALBUMIN 0.7 G/DL (3.4-5.0); ALBUMIN/GLOBULIN RATIO 0.1 (1.0-2.7); BILIRUBIN,TOTAL 0.5 MG/DL (0.2-1.0); CALCIUM 9.2 MG/DL (8.5-10.1); CREATININE 2.1 MG/DL (0.55-1.30)
[2020-08-30 10:10] LABS: POTASSIUM 4.6 MMOL/L (3.5-5.1)
[2020-08-30] MEDS ORDERED: NS 500ML ONE (10:12)
[2020-08-30] MEDS ORDERED: NS 275ml ONE (10:12)
--- NOTE | 2020-08-30 11:23 | General Progress Note ---
Subjective ROS Limited/Unobtainable: No Constitutional: Reports: malaise, weakness HEENT: Reports: no symptoms Cardiovascular: Reports: no symptoms Respiratory: Reports: cough, shortness of breath, sputum Gastrointestinal/Abdominal: Reports: difficulty swallowing Genitourinary: Reports: no symptoms Neurologic/Psychiatric: Reports: pre-existing deficit, seizure Endocrine: Reports: no symptoms Hematologic/Lymphatic: Reports: anemia Allergies: Coded Allergies: No Known Allergies (Unverified , 11/02/19) All Systems: reviewed and negative except above Subjective no events. stable on the vent. Patient is awake but nonverbal does not track or follow commands. Patient is tolerating feeding. H&H improved after transfusion. No reports of any bleeding. No fevers noted. Creatinine stable. bp slightly better Objective Last 24 Hour Vital Signs Date Time Temp Pulse Resp B/P (MAP) Pulse Ox O2 Delivery O2 Flow Rate FiO2 08/30/20 09:23 94 121/56 08/30/20 08:31 87 08/30/20 08:00 Mechanical Ventilator 08/30/20 08:00 97.9 88 17 117/54 (75) 93 88 08/30/20 08:00 35 08/30/20 04:00 99.0 92 26 119/52 (74) 96 08/30/20 04:00 85 08/30/20 04:00 Mechanical Ventilator 08/30/20 04:00 35 08/30/20 03:41 81 26 35 08/30/20 00:00 98.1 81 26 110/53 (72) 99 08/30/20 00:00 81 08/30/20 00:00 Mechanical Ventilator 08/30/20 00:00 35 08/29/20 23:55 81 29 35 08/29/20 21:00 77 103/52 08/29/20 20:24 77 27 35 08/29/20 20:00 97.3 77 30 112/51 (71) 97 08/29/20 20:00 75 08/29/20 20:00 35 08/29/20 20:00 Mechanical Ventilator 08/29/20 19:28 72 26 35 08/29/20 16:00 Mechanical Ventilator 08/29/20 16:00 35 08/29/20 16:00 98.0 72 25 103/52 (69) 96 08/29/20 15:55 58 27 35 08/29/20 15:47 64 08/29/20 12:00 97.9 74 24 103/43 (63) 96 08/29/20 12:00 35 08/29/20 12:00 72 08/29/20 12:00 Mechanical Ventilator 08/29/20 11:57 71 24 35 Intake and Output 08/29/20 08/30/20 19:00 07:00 Intake Total 805 ml 850 ml Output Total 400 ml 750 ml Balance 405 ml 100 ml Free Water 300 ml 300 ml IV Total 55 ml Tube Feeding 450 ml 550 ml Output Urine Total 400 ml 600 ml Stool Total 150 ml # Bowel Movements 100 Laboratory Tests 08/30/20 08:36: White Blood Count 6.5, Red Blood Count 3.38L, Hemoglobin 9.5#L, Hematocrit 30.7#L, Mean Corpuscular Volume 91, Mean Corpuscular Hemoglobin 28.1, Mean Corpuscular Hemoglobin Concent 31.0L, Red Cell Distribution Width 16.4H, Platelet Count 346, Mean Platelet Volume 5.2L, Neutrophils (%) (Auto) 69.7, Lymphocytes (%) (Auto) 16.3L, Monocytes (%) (Auto) 7.3, Eosinophils (%) (Auto) 5.4H, Basophils (%) (Auto) 1.4, Sodium Level 144, Potassium Level 4.6, Chloride Level 116H, Carbon Dioxide Level 16L, Anion Gap 12, Blood Urea Nitrogen 79H, Creatinine 2.1H, Estimat Glomerular Filtration Rate 31.6, Glucose Level 92, Calcium Level 9.2, Total Bilirubin 0.5, Aspartate Amino Transf (AST/SGOT) 88H, Alanine Aminotransferase (ALT/SGPT) 75, Alkaline Phosphatase 253H, Total Protein 5.4L, Albumin 0.7L, Globulin 4.7, Albumin/Globulin Ratio 0.1L Height (Feet): 5 Height (Inches): 4.00 Weight (Pounds): 171 Objective General Appearance: WD/WN, confused EENT: normal ENT inspection. on the vent Neck: normal alignment Cardiovascular: normal rate, regular rhythm Respiratory/Chest: rhonchi - bilaterally Abdomen: normal bowel sounds, non tender, soft, no organomegaly Edema: no edema noted Leg (L), no edema noted Leg (R) Neurologic: disoriented, aphasia Skin: normal pigmentation Assessment/Plan Problem List: (1) Anemia ICD Codes: D64.9 - Anemia, unspecified SNOMED: 778339168, 118342414 Qualifiers: Qualified Codes: D50.0 - Iron deficiency anemia secondary to blood loss (chronic) (2) Pleural effusion, left ICD Codes: J90 - Pleural effusion, not elsewhere classified SNOMED: 62267192, 251256509 (3) Malfunction of gastrostomy tube ICD Codes: K94.23 - Gastrostomy malfunction SNOMED: 612633464 (4) Acute respiratory failure with hypoxia ICD Codes: J96.01 - Acute respiratory failure with hypoxia SNOMED: 80129412, 967721123 (5) HCAP (healthcare-associated pneumonia) ICD Codes: J18.9 - Pneumonia, unspecified organism SNOMED: 999350097, 193963799 Status: stable, progressing Assessment/Plan: iv abx per id trach care resp rx/suctioning as needed vent per pulm tube feeds monitor residuals sz rx bp rx monitor h/h transfuse per pulm epogen iron rx repeat cxr midodrine for low bp wound care monitor labs Angel Jaramillo MD Aug 30, 2020 11:23
--- NOTE | 2020-08-30 11:59 | Surgery Progress Note ---
Surgery Progress Note Subjective Additional Comments no acute events ill appearing labs noted Objective Last 24 Hour Vital Signs Date Time Temp Pulse Resp B/P (MAP) Pulse Ox O2 Delivery O2 Flow Rate FiO2 08/30/20 09:23 94 121/56 08/30/20 08:31 87 08/30/20 08:00 Mechanical Ventilator 08/30/20 08:00 97.9 88 17 117/54 (75) 93 88 08/30/20 08:00 35 08/30/20 04:00 99.0 92 26 119/52 (74) 96 08/30/20 04:00 85 08/30/20 04:00 Mechanical Ventilator 08/30/20 04:00 35 08/30/20 03:41 81 26 35 08/30/20 00:00 98.1 81 26 110/53 (72) 99 08/30/20 00:00 81 08/30/20 00:00 Mechanical Ventilator 08/30/20 00:00 35 08/29/20 23:55 81 29 35 08/29/20 21:00 77 103/52 08/29/20 20:24 77 27 35 08/29/20 20:00 97.3 77 30 112/51 (71) 97 08/29/20 20:00 75 08/29/20 20:00 35 08/29/20 20:00 Mechanical Ventilator 08/29/20 19:28 72 26 35 08/29/20 16:00 Mechanical Ventilator 08/29/20 16:00 35 08/29/20 16:00 98.0 72 25 103/52 (69) 96 08/29/20 15:55 58 27 35 08/29/20 15:47 64 08/29/20 12:00 97.9 74 24 103/43 (63) 96 08/29/20 12:00 35 08/29/20 12:00 72 08/29/20 12:00 Mechanical Ventilator I&O Intake and Output 08/29/20 08/30/20 19:00 07:00 Intake Total 805 ml 850 ml Output Total 400 ml 750 ml Balance 405 ml 100 ml Free Water 300 ml 300 ml IV Total 55 ml Tube Feeding 450 ml 550 ml Output Urine Total 400 ml 600 ml Stool Total 150 ml # Bowel Movements 100 Dressing: saturated Cardiovascular: RSR Respiratory: decreased breath sounds Abdomen: soft, non-tender, present bowel sounds Extremities: no tenderness, no cyanosis, other Laboratory Tests Test 08/30/20 08:36 White Blood Count 6.5 K/UL (4.8-10.8) Red Blood Count 3.38 M/UL (4.70-6.10) L Hemoglobin 9.5 G/DL (14.2-18.0) #L Hematocrit 30.7 % (42.0-52.0) #L Mean Corpuscular Volume 91 FL (80-99) Mean Corpuscular Hemoglobin 28.1 PG (27.0-31.0) Mean Corpuscular Hemoglobin Concent 31.0 G/DL (32.0-36.0) L Red Cell Distribution Width 16.4 % (11.6-14.8) H Platelet Count 346 K/UL (150-450) Mean Platelet Volume 5.2 FL (6.5-10.1) L Neutrophils (%) (Auto) 69.7 % (45.0-75.0) Lymphocytes (%) (Auto) 16.3 % (20.0-45.0) L Monocytes (%) (Auto) 7.3 % (1.0-10.0) Eosinophils (%) (Auto) 5.4 % (0.0-3.0) H Basophils (%) (Auto) 1.4 % (0.0-2.0) Sodium Level 144 MMOL/L (136-145) Potassium Level 4.6 MMOL/L (3.5-5.1) Chloride Level 116 MMOL/L (98-107) H Carbon Dioxide Level 16 MMOL/L (21-32) L Anion Gap 12 mmol/L (5-15) Blood Urea Nitrogen 79 mg/dL (7-18) H Creatinine 2.1 MG/DL (0.55-1.30) H Estimat Glomerular Filtration Rate 31.6 mL/min (>60) Glucose Level 92 MG/DL (74-106) Calcium Level 9.2 MG/DL (8.5-10.1) Total Bilirubin 0.5 MG/DL (0.2-1.0) Aspartate Amino Transf (AST/SGOT) 88 U/L (15-37) H Alanine Aminotransferase (ALT/SGPT) 75 U/L (12-78) Alkaline Phosphatase 253 U/L (46-116) H Total Protein 5.4 G/DL (6.4-8.2) L Albumin 0.7 G/DL (3.4-5.0) L Globulin 4.7 g/dL Albumin/Globulin Ratio 0.1 (1.0-2.7) L Plan Problems: (1) Decubitus skin ulcer Assessment & Plan: Pt was discharged 08/15/20 and readmitted same day. 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 Small amt exudate that is of Sanguineous mixed with Formula noted from GT. Mild excoriation noted to Peristomal GT site. Full Thickness Sacral Pressure Injury (L)10.5cm x (W)8.3cm x (D)1.5cm, Undermining clockwise 9-2 by 1.3cm @10'oclock. Base of wound is 90% granular 10% necrotic. NO odor noted. Small amt serosanguineous exudate noted.Periwound is erythematous and indurated. No changes in skin temp noted. Full Thickness Pressure Injury Outer L Lower Quadrant of Buttocks.(L)5.5cm x (W)7cm x (D)1.5cm, Undermining clockwise 9-3 by 4.5cm @12o'clock, Tunneled area within base of wound by 5.5cm @ 1-2o'clock. Base of wound is 85% % moist and pink ,15% necrotic at base at undermined area of wound. Bone exposure noted. Small amt serosanguineous exudate noted. Periwound is erythematous and indurated. No odor noted. Full thickness Pressure Injury L Ischium(L)2cm x (W)0.9cm x (D)0.3cm. Base of wound is moist, and pink. Edges are adherent to base of wound. Periwound is maroon and indurated. NO changes in skin temp periwound. NO odor noted. Non-Blanchable erythema without induration noted to R Hip /R trochanteric.. Full Thickness Pressure Injury lateral L Tibia(L)21.5cm x (W)3.5cm x (D)0.2cm. Base of wound is 95% granular,5% necrosis along borders. Edges are adherent to base of wound . Moderate amt sanguineous exudate noted. No odor noted.Periwound skin colour is darker than is normal tone but without erythema or induration. Full thickness Pressure Injury L Heel extending into Plantar aspect of chico l(L)8.7cm x (W)6.5cm x(D)0.6cm.Base of wound is 60% beefy granulation,40% necrotic. Bone is palpable. (+) Epibole at proximal borders of wound in close proximity with achilles. Small amt haemopurulent exudate noted. Wound is malodorous. Periwound is dusky and indurated. Full Thickness Pressure Injury Lateral L Foot (L)1.9cm x (W)3.4cm x (D)0.3cm, undermining clockwise 9-3 by 0.2cm @9o'clock. Base of wound is 10% necrotic 90% antonio. Wound is malodorous. Edges are macerate with scattered areas of necrosis along edges. Small amt haemopurulent exudate noted.Periwound is fluctuant and dusky. Full Thickness Pressure Injury distal/lateral L foot(L)1.3cm x (W)3.7cm x (D)0.2cm. Base of wound is 80% soft necrosis,20% moist and pink. edges are macerated. Wound is malodorous. Small amt brown exudate noted . Periwound is dusky and fluctuant. Unstageable Pressure injury dorsal L foot (L)1cm x (W)0.9cm. Base of wound is 100% necrotic. Edges are erythematous and macerated. Periwound without erythema,induration or fluctuance. Full thickness Pressure Injury R Heel including plantar aspect of heel (L)8.7cm x (W)6.5cm x (D)0.6cm. Base of wound is 60% beefy granulation,40% necrotic. Bone exposure at base of wound. Moderate amt haemopurulent exudate. Wound is malodorous. Proximal edges of wound within close proximity with achilles is rolled. Edges are otherwise macerated. Periwound is fluctuant and dusky. Full Thickness Pressure Injury distal/lateral R foot (L)0.5cm x (W)0.6cm. Base of wound is 100% fibrinous slough. Erythematous borders. Periwound without induration or fluctuance. Small amt serous exudate noted. Tx.Plan: Wash GT site with Soap and Water. Pat dry. Apply Moisture Barrier Paste around Gt Daily. Leave open to Air. Cleanse Sacral wound, L buttocks, and L Ischia wounds with Dakin's 0.25% Kristel. Loosely pack wounds with Dakin's moistened Kerlix.Apply Triad Paste periwound. Cover with Optifoam drsgs Daily and prn. Cleanse wound Lateral L Tibia with Dakin's o.25% Kristel. Rinse with Saline. Apply Promogran moistened with Saline. Apply Moisture Barrier Paste along borders. Cover with ABD Pads. Wrap with Kerlix every Mon-Wed-Fri (NOTE: Wound Nurse to Aplpy Promogran) Cleanse wounds L Foot with Dakin's 0.25% Kristel. Apply Dakin's moistened Gauze to each wound. Apply Triad Paste along Borders of each wound. Cover with ABD Pads and wrap with Kerlix Daily and prn. Cleanse R Heel wound with Dakin's 0.25% Kristel. Apply Dakin's Moistened Gauze to wound. Apply Triad Paste Periwound. Cover with ABD Pad. Wrap with Kerlix Daily and prn. Reposition at least every 2hours or as tolerated. Place Pillow Between Knees. Off-load heels with 2 Pillows. APM/TERRIE Mattress overlay. Sacral wound,L Buttocks, L Ischial wounds cleansed with Dakin's and each wound loosely packed with Dakin's moistened Kerlix.Moisture Barrier Paste applied to borders of each wound and each wound covered with Optifoam drsgs. Perianal area noted to be red and excoriated. Moisture Barrier Paste applied to affected area. Drsgs to L tibia, L Heel and R Heel noted to be saturated and malodorous. Both lower ext washed with Chlorhexidine soap prior to providing wound care.Base of wound lateral L Tibia beefy red. Edges are adherent with an area of 5% necrosis distally. Small amt sanguineous exudate No erythema or changes in skin temp periwound. Wound Later L Tibia cleansed with Saline. Promogran applied to base of wound.Moisture Barrier Paste applied along borders. Covered with ABD pad. Wrapped with Kerlix. R and L Heel wounds cleansed Dakin's 0.25% kristel. Dakin's moistened gauze applied to each wound Moisture Barrier Paste applied to borders of each wound and each wound covered with Abd Pads and each heel wrapped with Kerlix drsgs. Skin under tracheal collar assessed and no evidence of skin breakdown noted. Peristomal Gt site is resolving, Skin is moist but pink.No new skin concerns noted. ill appearing leg worsening would not tolerate amputation (2) Anemia Assessment & Plan: trend h/h prbc prn (3) UTI (urinary tract infection) (4) Pleural effusion, left Assessment & Plan: Ultrasound used to localize optimal puncture site. Sterile prepping and draping left chest. Local anesthesia with 1% lidocaine. Under real-time u ltrasound guidance, puncture pleural space using thoracentesis needle. Stylet removed. Catheter placed to vacuum bottle suction. Total 1700 milliliters of fluid aspirated. Patient tolerated procedure well, without immediate complication. Findings: Followup sonography demonstrates small amount of residual pleural fluid. Impression: Successful ultrasound-guided thoracentesis, yielding 1700 milliliters of fluid Lungs: Hazy left lung attenuation could be due to consolidation, pulmonary edema; correlate with presentation. Retrocardiac atelectasis without or with consolidation. Pleural space: Small-moderate left pleural effusion with passive atelectasis. No pneumothorax. Heart: Unremarkable. No cardiomegaly. Mediastinum: Unremarkable. Bones/joints: No acute abnormality Tubes, lines and devices: Tracheostomy. Right upper extremity PICC tip in the mid SVC. IMPRESSION: 1. Tracheostomy. 2. Right upper extremity PICC tip in the mid SVC. 3. Small-moderate left pleural effusion with passive atelectasis. 4. Hazy left lung attenuation could be due to consolidation, pulmonary edema; correlate with presentation. 5. Retrocardiac atelectasis without or with consolidation. 6. Recommend CT chest with IV contrast to further characterize these findings. plan repeat thora (5) Malfunction of gastrostomy tube Assessment & Plan: DAILY ESTIMATED NEEDS: Needs based on Wounds, pulmonary/ 74.5kg 25-30 kcals/kg 1899-8510 total kcals 1.5-2 g protein/kg 111-149 g total protein 25-30 mL/kg 3445-8453 total fluid mLs NUTRITION DIAGNOSIS: * Swallowing difficulty R/T dysphagia, h/o craniotomy, respiratory failure as evidenced by pt on T-collar, GJ tube dependent. * Increased kcal/prot/micronutrients needs R/T wound healing as evidenced by pt admitted w/ multiple advanced wounds including full thickness wound x 7 and unstageable wounds x 2, refer to WC eval. CURRENT TF:Vital AF 1.2 @70ml/hr ENTERAL NUTRITION RECOMMENDATIONS: Vital AF 1.2 @ 65ml/hr x 24 hrs to provide 1560ml, 1872kcal, 117g prot, 1265ml free water * Lower goal rate to 65ml/hr x 24 hrs: meets 100% est kcal/prot needs * HOB over 30 degrees/ water flush 180ml q 6hrs without IVF ------ elemental TF formula of Vital AF not indicated, consider changing TF to Glucerna 1.2 @ 65ml/hr x 24 hrs + Prosource 1pkt TID to provide 1560ml, 1872kcal, 94g+ 33g prot, 1259ml free water ADDITIONAL RECOMMENDATIONS: * Calibrated bedscale wt * Wound Care: Con't Vit C 500mg BID, ZnSO4 220mg QD x 10 days add Stevie BID * Monitor lytes, replete as needed * DC D5 for improved BG control increase H2O flushes instead (Na now wnl, BUN elev) * Rec NISS (6) Acute respiratory failure with hypoxia (7) HCAP (healthcare-associated pneumonia) Deny Westfall Aug 30, 2020 11:59
[2020-08-30 12:00] VITALS: BP 125/53
--- NOTE | 2020-08-30 13:09 | NUR ---
NURSE NOTES: Midodrine administered. BP is 92/45. Will continue to monitor patient and blood pressure.
--- NOTE | 2020-08-30 13:15 | NUR ---
NURSE NOTES: Increased GT feeding from 50 cc/hr to 60 cc/hr. No residual before increasing the feeding.
--- NOTE | 2020-08-30 13:56 | Pulmonology Progress Note ---
Subjective ROS Limited/Unobtainable: Yes Gastrointestinal/Abdominal: Reports: diarrhea, other - X 1 Allergies: Coded Allergies: No Known Allergies (Unverified , 11/02/19) All Systems: reviewed and negative except above Subjective CARE NOTED nonverbal on vent vitals ok anemia noted Objective Last 24 Hour Vital Signs Date Time Temp Pulse Resp B/P (MAP) Pulse Ox O2 Delivery O2 Flow Rate FiO2 08/30/20 12:00 35 08/30/20 12:00 Mechanical Ventilator 08/30/20 12:00 97.9 86 18 125/53 (77) 100 86 08/30/20 11:41 76 08/30/20 09:23 94 121/56 08/30/20 08:31 87 08/30/20 08:00 Mechanical Ventilator 08/30/20 08:00 97.9 88 17 117/54 (75) 93 88 08/30/20 08:00 35 08/30/20 04:00 99.0 92 26 119/52 (74) 96 08/30/20 04:00 85 08/30/20 04:00 Mechanical Ventilator 08/30/20 04:00 35 08/30/20 03:41 81 26 35 08/30/20 00:00 98.1 81 26 110/53 (72) 99 08/30/20 00:00 81 08/30/20 00:00 Mechanical Ventilator 08/30/20 00:00 35 08/29/20 23:55 81 29 35 08/29/20 21:00 77 103/52 08/29/20 20:24 77 27 35 08/29/20 20:00 97.3 77 30 112/51 (71) 97 08/29/20 20:00 75 08/29/20 20:00 35 08/29/20 20:00 Mechanical Ventilator 08/29/20 19:28 72 26 35 08/29/20 16:00 Mechanical Ventilator 08/29/20 16:00 35 08/29/20 16:00 98.0 72 25 103/52 (69) 96 08/29/20 15:55 58 27 35 08/29/20 15:47 64 Intake and Output 08/29/20 08/30/20 19:00 07:00 Intake Total 805 ml 850 ml Output Total 400 ml 750 ml Balance 405 ml 100 ml Free Water 300 ml 300 ml IV Total 55 ml Tube Feeding 450 ml 550 ml Output Urine Total 400 ml 600 ml Stool Total 150 ml # Bowel Movements 100 Objective WDWN NAD awake chronically ill moderate breath sounds bilaterally without rhonchi [id number] NABS nontender GT no CCE nonfocal weak wounds noted Microbiology Date/Time Source Procedure Growth Status 08/28/20 00:10 Stool Clostridium difficile Toxin Assay - Final Complete Laboratory Tests 08/30/20 08:36: White Blood Count 6.5, Red Blood Count 3.38L, Hemoglobin 9.5#L, Hematocrit 30.7#L, Mean Corpuscular Volume 91, Mean Corpuscular Hemoglobin 28.1, Mean Corpuscular Hemoglobin Concent 31.0L, Red Cell Distribution Width 16.4H, Platelet Count 346, Mean Platelet Volume 5.2L, Neutrophils (%) (Auto) 69.7, Lymphocytes (%) (Auto) 16.3L, Monocytes (%) (Auto) 7.3, Eosinophils (%) (Auto) 5.4H, Basophils (%) (Auto) 1.4, Sodium Level 144, Potassium Level 4.6, Chloride Level 116H, Carbon Dioxide Level 16L, Anion Gap 12, Blood Urea Nitrogen 79H, Creatinine 2.1H, Estimat Glomerular Filtration Rate 31.6, Glucose Level 92, Calcium Level 9.2, Total Bilirubin 0.5, Aspartate Amino Transf (AST/SGOT) 88H, Alanine Aminotransferase (ALT/SGPT) 75, Alkaline Phosphatase 253H, Total Protein 5.4L, Albumin 0.7L, Globulin 4.7, Albumin/Globulin Ratio 0.1L Current Medications Medications (Trade) Dose Ordered Sig/Clive Route PRN Reason Start Time Stop Time Status Last Admin Dose Admin Acetaminophen (Tylenol) 650 mg Q4H PRN GT Temp >100.5 08/18/20 21:15 09/17/20 21:14 08/27/20 15:39 Amiodarone HCl (Cordarone) 200 mg DAILY GT 08/24/20 09:00 10/28/20 17:59 08/30/20 09:23 Ascorbic Acid (Vitamin C) 500 mg DAILY ORAL 08/17/20 16:00 09/16/20 15:59 08/30/20 09:22 Atorvastatin Calcium (Lipitor) 10 mg BEDTIME ORAL 08/28/20 21:45 11/24/20 20:59 08/29/20 22:11 Chlorhexidine Gluconate (Jennifer-Hex 2%) 1 applic DAILY@2000 TOPIC 07/17/20 20:00 10/15/20 19:59 08/29/20 22:11 Epoetin Tino (Epoetin Tino-EPBX(NON ESRD)) 2,000 unit SUBQ 08/25/20 21:00 11/23/20 20:59 08/29/20 22:12 Epoetin Tino (Epoetin Tino-EPBX(NON ESRD)) 3,000 unit TUE- SUBQ 08/25/20 21:00 11/23/20 20:59 08/29/20 22:12 Famotidine (Pepcid) 20 mg Q12HR GT 07/16/20 21:00 10/14/20 20:59 08/30/20 09:23 Finasteride (Proscar) 5 mg DAILY ORAL 07/15/20 09:00 10/13/20 08:59 08/30/20 09:23 Hydralazine HCl (Apresoline) 25 mg Q6H PRN GT SBP above 150 07/24/20 23:30 10/22/20 23:29 07/26/20 05:22 Levetiracetam (Keppra) 1,000 mg Q12HR ORAL 08/22/20 09:07 10/06/20 09:06 08/30/20 09:22 Lorazepam (Ativan 2mg/ml 1ml) 1 mg Q1H PRN IV For Seizures 08/26/20 01:30 09/02/20 01:29 08/26/20 01:39 Meropenem 1 gm/ Sodium Chloride 55 ml @ 110 mls/hr Q12HR IVPB 08/25/20 09:00 08/30/20 23:59 08/30/20 09:21 Metoclopramide HCl (Reglan) 5 mg Q6H IVP 08/21/20 22:00 09/20/20 21:59 08/30/20 09:22 Metoprolol Tartrate (Lopressor) 100 mg Q12HR ORAL 08/13/20 09:00 11/11/20 08:59 08/30/20 09:23 Midodrine (Pro-Amatine) 10 mg THREE TIMES A DAY ORAL 08/28/20 18:00 11/26/20 17:59 08/30/20 13:09 Multivitamins (Multivitamins) 1 tab DAILY ORAL 08/17/20 16:00 09/16/20 15:59 08/30/20 09:22 Sodium Hypochlorite (Dakin's Half Strength) 1 applic DAILY TOPIC 08/19/20 16:30 09/18/20 16:29 08/30/20 09:24 Sodium Chloride 1,000 ml @ 125 mls/hr Q8H IV 08/28/20 02:30 09/27/20 02:29 08/30/20 10:26 Assessment/Plan Assessment/Plan Impression: Healthcare-associated pneumonia Acute respiratory failure with hypoxia Tracheostomy status Pleural effusion, left-recurrent s/p tap Decubitus ulcers ARF Anemia S/p previous Craniotomy, RCA occlusion, 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
[2020-08-30 16:00] VITALS: BP 115/56
--- NOTE | 2020-08-30 18:11 | NUR ---
NURSE NOTES: Patient's residual amount from GT is about 80 cc. GT feeding is currently on hold. Will update upcoming nurse.
[2020-08-30] MEDS: Sodium Citrate 30ml ORAL SCH ×2 (18:19→23:29)
--- NOTE | 2020-08-30 19:32 | NUR ---
NURSE NOTES: Received report from SELIN Child. Pt is awake, obtunded, does not follow commands, tracks. No signs of distress noted. SR on monitor and storage bin tender. SpO2 98% on AC 24, TV 500, FiOw 35%, PEEP 5. GT intact, no residuals noted. GT feeding restarted at 60cc to meet goal of 80cc/hr. Rectal tube intact, draining well to gravity. [place] intact and draining well to gravity. L UA PICC 2x running NS 125, both lumens flushing well. Skin issues noted, isolation precautions noted. HOB elevated, side rails x3, call light within reach, bed alarmed, locked, and in lowest position. Will continue plan of care. Will continue to monitor.
--- NOTE | 2020-08-30 19:37 | NUR ---
NURSE HAND-OFF REPORT: Important Events on Shift: stable Patient Status: Diet: Pending Orders: Pending Results/Labs: Pending MD notification: Latest Vital Signs: Temperature 97.3 , Pulse 73 , B/P 115 /56 , Respiratory Rate 25 , O2 SAT 97 , Trach Collar, O2 Flow Rate 10.0 . Vital Sign Comment: EKG Rhythm: Sinus Rhythm Rhythm change?: N MD Notified?: Nadine Mak and Quita VALDEZ Response: Message left await call Latest Ramirez Fall Score: 70 Fall Risk: High Risk Safety Measures: Call light Within Reach, Bed Alarm Zone 1, Side Rails Side Rails x3, Bed position Low and Locked. Fall Precautions: Yellow Socks Patient Fall Education Report given to SELIN Child.
[2020-08-30 20:00] VITALS: BP 105/64
[2020-08-30] MEDS: Dyna-Hex 2% Top Sol 2oz TOPIC SCH (20:17)
[2020-08-30] MEDS: Atorvastatin 20mg tab ORAL SCH (20:18)
--- NOTE | 2020-08-30 21:51 | General Progress Note ---
Subjective Allergies: Coded Allergies: No Known Allergies (Unverified , 11/02/19) Subjective seen earlier today d/w RN Objective Last 24 Hour Vital Signs Date Time Temp Pulse Resp B/P (MAP) Pulse Ox O2 Delivery O2 Flow Rate FiO2 08/30/20 20:17 86 105/64 08/30/20 20:00 35 08/30/20 20:00 72 08/30/20 20:00 Mechanical Ventilator 08/30/20 20:00 96.8 86 20 105/64 (78) 98 86 08/30/20 18:44 73 25 35 08/30/20 16:00 35 08/30/20 16:00 97.3 91 19 115/56 (75) 97 91 08/30/20 16:00 Mechanical Ventilator 08/30/20 15:41 69 08/30/20 15:10 96 27 94 Mechanical Ventilator 35 08/30/20 15:10 96 27 35 08/30/20 12:00 35 08/30/20 12:00 Mechanical Ventilator 08/30/20 12:00 97.9 86 18 125/53 (77) 100 86 08/30/20 11:41 76 08/30/20 11:10 81 26 35 08/30/20 09:23 94 121/56 08/30/20 08:31 87 08/30/20 08:00 Mechanical Ventilator 08/30/20 08:00 97.9 88 17 117/54 (75) 93 88 08/30/20 08:00 35 08/30/20 07:10 82 26 35 08/30/20 04:00 99.0 92 26 119/52 (74) 96 08/30/20 04:00 85 08/30/20 04:00 Mechanical Ventilator 08/30/20 04:00 35 08/30/20 03:41 81 26 35 08/30/20 00:00 98.1 81 26 110/53 (72) 99 08/30/20 00:00 81 08/30/20 00:00 Mechanical Ventilator 08/30/20 00:00 35 08/29/20 23:55 81 29 35 Intake and Output 08/29/20 08/30/20 19:00 07:00 Intake Total 805 ml 900 ml Output Total 400 ml 750 ml Balance 405 ml 150 ml Free Water 300 ml 300 ml IV Total 55 ml Tube Feeding 450 ml 600 ml Output Urine Total 400 ml 600 ml Stool Total 150 ml # Bowel Movements 100 Laboratory Tests 08/30/20 08:36: White Blood Count 6.5, Red Blood Count 3.38L, Hemoglobin 9.5#L, Hematocrit 30.7#L, Mean Corpuscular Volume 91, Mean Corpuscular Hemoglobin 28.1, Mean Corpuscular Hemoglobin Concent 31.0L, Red Cell Distribution Width 16.4H, Platelet Count 346, Mean Platelet Volume 5.2L, Neutrophils (%) (Auto) 69.7, Lymphocytes (%) (Auto) 16.3L, Monocytes (%) (Auto) 7.3, Eosinophils (%) (Auto) 5.4H, Basophils (%) (Auto) 1.4, Sodium Level 144, Potassium Level 4.6, Chloride Level 116H, Carbon Dioxide Level 16L, Anion Gap 12, Blood Urea Nitrogen 79H, Creatinine 2.1H, Estimat Glomerular Filtration Rate 31.6, Glucose Level 92, Calcium Level 9.2, Total Bilirubin 0.5, Aspartate Amino Transf (AST/SGOT) 88H, Alanine Aminotransferase (ALT/SGPT) 75, Alkaline Phosphatase 253H, Total Protein 5.4L, Albumin 0.7L, Globulin 4.7, Albumin/Globulin Ratio 0.1L Height (Feet): 5 Height (Inches): 4.00 Weight (Pounds): 171 Objective Eldely WM NCAT (+) trach , T tube Coarse BS RRR abd soft (+) GT ext no edema Assessment/Plan Status: stable, progressing Assessment/Plan: Assessment - Abnormal LFT - UGIB - resolved - Anemia, s/p transfusion - hypotension - h/o PUD - resp failure, s/p trach - dysphagia, s/p PEG - atrial fibrillation - h/o DVT - hypernatremia - loose BM - decubitus ulcers - poor prognosis Recommendations - follow LFT - H2B BID indefinitely - vital AF 1.2 at 80 cc/hr - but only tolerating 50 cc/hr at this time - protein supplements - TID - MVI - Vitamin C - free water - follow H&H - monitor BM Akiko Rai MD Aug 30, 2020 21:51
--- NOTE | 2020-08-30 22:53 | NUR ---
NURSE NOTES: GT residual 80cc. Reduced rate from 60cc/hr to 50cc/hr. Will continue to monitor.
[2020-08-31] VITALS: BP 112/52
--- NOTE | 2020-08-31 00:18 | NUR ---
NURSE NOTES: GT residuals 150cc with vital AF running at 50cc/hr. GT feeding on hold currently. Will continue to monitor.
--- NOTE | 2020-08-31 03:44 | NUR ---
NURSE NOTES: Bed bath given. Linens and gown changed. Wounds redressed. Oral care given. Pt turned. Status remains unchanged. Vital AF currently running at 40cc/hr. Will continue to monitor.
[2020-08-31 04:00] VITALS: BP 120/58
[2020-08-31] MEDS: Metoclopramide 10mg/2ml Inj IVP SCH ×4 (04:48→22:02)
[2020-08-31] MEDS: Sodium Citrate 30ml ORAL SCH ×4 (04:59→23:01)
--- NOTE | 2020-08-31 05:26 | NUR ---
NURSE NOTES: GT residuals 0. Will continue tube feeding at 40cc/hr.
--- NOTE | 2020-08-31 07:20 | NUR ---
NURSE HAND-OFF REPORT: Important Events on Shift:[Not tolerating GT feeding] Patient Status: [Stable] Diet: [Vital AF goal 80, current 40] Pending Orders: [NA] Pending Results/Labs:[NA] Pending MD notification:[NA] Latest Vital Signs: Temperature 98.2 , Pulse 83 , B/P 120 /58 , Respiratory Rate 24 , O2 SAT 98 , Trach Collar, O2 Flow Rate 10.0 . Vital Sign Comment: [Stable] EKG Rhythm: SR w/ BBB Rhythm change?: N MD Notified?: Nadine Mak and Quita VALDEZ Response: Message left await call Latest Ramirez Fall Score: 70 Fall Risk: High Risk Safety Measures: Call light Within Reach, Bed Alarm Zone 1, Side Rails Side Rails x3, Bed position Low and Locked. Fall Precautions: Yellow Socks Patient Fall Education Report given to [SELIN Child].
--- NOTE | 2020-08-31 07:20 | NUR ---
NURSE NOTES: report received from SELIN Child. patient is on bed, no signs of grimacing or distress noted. pt opens eyes when entered the room, makes eye contact but does not show facial expressions when asked questions. trache-vent S4 with settings of AC 24, TV 500, FiO2 35%, PEEP 5, tolerating well with saturation in the high 90s. On GT feeding Vital AF at 40 cc/hr, patent, intact, no residual. patient has a rectal tube. patent, intact, and drains stool. on valles catheter F16, patent, intact, and draining light alec urine. has a REBECCA PICC line DL patent, intact, and running NS at 125 cc/hr. HOB elevated, bed on lowest position, locked, side rails up, call light within reach. Will continue to monitor. Will continue plan of care.
[2020-08-31 08:00] VITALS: BP 118/62
--- NOTE | 2020-08-31 09:31 | Pulmonology Progress Note ---
Subjective ROS Limited/Unobtainable: Yes Gastrointestinal/Abdominal: Reports: diarrhea, other - X 1 Allergies: Coded Allergies: No Known Allergies (Unverified , 11/02/19) All Systems: reviewed and negative except above Subjective CARE NOTED nonverbal on vent vitals ok anemia noted Objective Last 24 Hour Vital Signs Date Time Temp Pulse Resp B/P (MAP) Pulse Ox O2 Delivery O2 Flow Rate FiO2 08/31/20 07:43 76 24 35 08/31/20 04:00 71 08/31/20 04:00 35 08/31/20 04:00 Mechanical Ventilator 08/31/20 04:00 98.2 83 24 120/58 (78) 98 08/31/20 03:09 73 24 35 08/31/20 00:00 Mechanical Ventilator 08/31/20 00:00 76 08/31/20 00:00 98.2 79 25 112/52 (72) 98 08/30/20 23:11 75 24 35 08/30/20 20:17 86 105/64 08/30/20 20:00 35 08/30/20 20:00 72 08/30/20 20:00 Mechanical Ventilator 08/30/20 20:00 96.8 86 20 105/64 (78) 98 86 08/30/20 18:44 73 25 35 08/30/20 16:00 35 08/30/20 16:00 97.3 91 19 115/56 (75) 97 91 08/30/20 16:00 Mechanical Ventilator 08/30/20 15:41 69 08/30/20 15:10 96 27 94 Mechanical Ventilator 35 08/30/20 15:10 96 27 35 08/30/20 12:00 35 08/30/20 12:00 Mechanical Ventilator 08/30/20 12:00 97.9 86 18 125/53 (77) 100 86 08/30/20 11:41 76 08/30/20 11:10 81 26 35 Intake and Output 08/30/20 08/31/20 19:00 07:00 Intake Total 965 ml 1995 ml Output Total 700 ml 500 ml Balance 265 ml 1495 ml Free Water 300 ml 200 ml IV Total 125 ml 1375 ml Tube Feeding 540 ml 420 ml Output Urine Total 500 ml 350 ml Stool Total 200 ml 150 ml Objective WDWN NAD awake chronically ill moderate breath sounds bilaterally without rhonchi [id number] NABS nontender GT no CCE nonfocal weak wounds noted Current Medications Medications (Trade) Dose Ordered Sig/Clive Route PRN Reason Start Time Stop Time Status Last Admin Dose Admin Acetaminophen (Tylenol) 650 mg Q4H PRN GT Temp >100.5 08/18/20 21:15 09/17/20 21:14 08/27/20 15:39 Amiodarone HCl (Cordarone) 200 mg DAILY GT 08/24/20 09:00 10/28/20 17:59 08/30/20 09:23 Ascorbic Acid (Vitamin C) 500 mg DAILY ORAL 08/17/20 16:00 09/16/20 15:59 08/30/20 09:22 Atorvastatin Calcium (Lipitor) 10 mg BEDTIME ORAL 08/28/20 21:45 11/24/20 20:59 08/30/20 20:18 Chlorhexidine Gluconate (Jennifer-Hex 2%) 1 applic DAILY@1999 TOPIC 07/17/20 20:00 10/15/20 19:59 08/30/20 20:17 Epoetin Tino (Epoetin Tino-EPBX(NON ESRD)) 2,000 unit TUE-TUE-TUE SUBQ 08/25/20 21:00 11/23/20 20:59 08/29/20 22:12 Epoetin Tino (Epoetin Tion-EPBX(NON ESRD)) 3,000 unit TUE- SUBQ 08/25/20 21:00 11/23/20 20:59 08/29/20 22:12 Famotidine (Pepcid) 20 mg Q12HR GT 07/16/20 21:00 10/14/20 20:59 08/30/20 20:18 Finasteride (Proscar) 5 mg DAILY ORAL 07/15/20 09:00 10/13/20 08:59 08/30/20 09:23 Hydralazine HCl (Apresoline) 25 mg Q6H PRN GT SBP above 150 07/24/20 23:30 10/22/20 23:29 07/26/20 05:22 Levetiracetam (Keppra) 1,000 mg Q12HR ORAL 08/22/20 09:07 10/06/20 09:06 08/30/20 20:18 Lorazepam (Ativan 2mg/ml 1ml) 1 mg Q1H PRN IV For Seizures 08/26/20 01:30 09/02/20 01:29 08/26/20 01:39 Metoclopramide HCl (Reglan) 5 mg Q6H IVP 08/21/20 22:00 09/20/20 21:59 08/31/20 04:48 Metoprolol Tartrate (Lopressor) 100 mg Q12HR ORAL 08/13/20 09:00 11/11/20 08:59 08/30/20 09:23 Midodrine (Pro-Amatine) 10 mg THREE TIMES A DAY ORAL 08/28/20 18:00 11/26/20 17:59 08/30/20 18:20 Multivitamins (Multivitamins) 1 tab DAILY ORAL 08/17/20 16:00 09/16/20 15:59 08/30/20 09:22 Sodium Hypochlorite (Dakin's Half Strength) 1 applic DAILY TOPIC 08/19/20 16:30 09/18/20 16:29 08/30/20 09:24 Sodium Chloride 1,000 ml @ 125 mls/hr Q8H IV 08/28/20 02:30 09/27/20 02:29 08/31/20 02:10 Sodium Citrate (Bicitra) 30 ml EVERY 6 HOURS ORAL 08/30/20 18:00 09/29/20 17:59 08/31/20 04:59 Assessment/Plan Assessment/Plan Impression: Healthcare-associated pneumonia Acute respiratory failure with hypoxia Tracheostomy status Pleural effusion, left-recurrent s/p tap Decubitus ulcers ARF Anemia S/p previous Craniotomy, RCA occlusion, 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
--- NOTE | 2020-08-31 09:36 | General Progress Note ---
Subjective ROS Limited/Unobtainable: Yes Constitutional: Reports: malaise, weakness HEENT: Reports: no symptoms Cardiovascular: Reports: no symptoms Respiratory: Reports: cough, sputum Gastrointestinal/Abdominal: Reports: difficulty swallowing Genitourinary: Reports: no symptoms Neurologic/Psychiatric: Reports: no symptoms Endocrine: Reports: no symptoms Hematologic/Lymphatic: Reports: anemia Allergies: Coded Allergies: No Known Allergies (Unverified , 11/02/19) All Systems: reviewed and negative except above Subjective no events. stable on the vent. Patient is awake but nonverbal does not track or follow commands. Patient is tolerating feeding. H&H improved after tra nsfusion. No reports of any bleeding. No fevers noted. no labs today Objective Last 24 Hour Vital Signs Date Time Temp Pulse Resp B/P (MAP) Pulse Ox O2 Delivery O2 Flow Rate FiO2 08/31/20 07:43 76 24 35 08/31/20 04:00 71 08/31/20 04:00 35 08/31/20 04:00 Mechanical Ventilator 08/31/20 04:00 98.2 83 24 120/58 (78) 98 08/31/20 03:09 73 24 35 08/31/20 00:00 Mechanical Ventilator 08/31/20 00:00 76 08/31/20 00:00 98.2 79 25 112/52 (72) 98 08/30/20 23:11 75 24 35 08/30/20 20:17 86 105/64 08/30/20 20:00 35 08/30/20 20:00 72 08/30/20 20:00 Mechanical Ventilator 08/30/20 20:00 96.8 86 20 105/64 (78) 98 86 08/30/20 18:44 73 25 35 08/30/20 16:00 35 08/30/20 16:00 97.3 91 19 115/56 (75) 97 91 08/30/20 16:00 Mechanical Ventilator 08/30/20 15:41 69 08/30/20 15:10 96 27 94 Mechanical Ventilator 35 08/30/20 15:10 96 27 35 08/30/20 12:00 35 08/30/20 12:00 Mechanical Ventilator 08/30/20 12:00 97.9 86 18 125/53 (77) 100 86 08/30/20 11:41 76 08/30/20 11:10 81 26 35 Intake and Output 08/30/20 08/31/20 19:00 07:00 Intake Total 965 ml 1995 ml Output Total 700 ml 500 ml Balance 265 ml 1495 ml Free Water 300 ml 200 ml IV Total 125 ml 1375 ml Tube Feeding 540 ml 420 ml Output Urine Total 500 ml 350 ml Stool Total 200 ml 150 ml Height (Feet): 5 Height (Inches): 4.00 Weight (Pounds): 171 Objective General Appearance: WD/WN, confused EENT: normal ENT inspection. on the vent Neck: normal alignment Cardiovascular: normal rate, regular rhythm Respiratory/Chest: rhonchi - bilaterally Abdomen: normal bowel sounds, non tender, soft, no organomegaly Edema: no edema noted Leg (L), no edema noted Leg (R) Neurologic: disoriented, aphasia Skin: normal pigmentation Assessment/Plan Problem List: (1) Anemia ICD Codes: D64.9 - Anemia, unspecified SNOMED: 752115802, 586320489 Qualifiers: Qualified Codes: D50.0 - Iron deficiency anemia secondary to blood loss (chronic) (2) Pleural effusion, left ICD Codes: J90 - Pleural effusion, not elsewhere classified SNOMED: 14111858, 858977587 (3) Malfunction of gastrostomy tube ICD Codes: K94.23 - Gastrostomy malfunction SNOMED: 447962216 (4) Acute respiratory failure with hypoxia ICD Codes: J96.01 - Acute respiratory failure with hypoxia SNOMED: 97437579, 385757074 (5) HCAP (healthcare-associated pneumonia) ICD Codes: J18.9 - Pneumonia, unspecified organism SNOMED: 707979828, 492105424 Status: stable, progressing Assessment/Plan: iv abx per id trach care resp rx/suctioning as needed vent per pulm tube feeds monitor residuals sz rx bp rx monitor h/h transfuse per pulm epogen iron rx repeat cxr midodrine for low bp wound care monitor labs Angel Jaramillo MD Aug 31, 2020 09:36
[2020-08-31] MEDS: Amiodarone 200mg tab GT SCH (10:02)
[2020-08-31] MEDS: Midodrine 10mg tab ORAL SCH ×3 (10:03→18:44)
[2020-08-31] MEDS: Ascorbic Acid 500mg tab ORAL SCH (10:03)
[2020-08-31] MEDS: Dakin's 0.25% (Half Strength) 16oz TOPIC SCH (10:04)
[2020-08-31] MEDS: Metoprolol Tartrate 100mg tab ORAL SCH ×2 (10:04→20:26)
--- NOTE | 2020-08-31 11:27 | NUR ---
NURSE NOTES: Updated Dr. Devlin about patient's ABG results today. No further orders regarding vent settings. Order entered for ABG tomorrow per Doctor.
--- NOTE | 2020-08-31 11:47 | Surgery Progress Note ---
Surgery Progress Note Subjective Additional Comments h/h better after no n/v unresponsive Objective Last 24 Hour Vital Signs Date Time Temp Pulse Resp B/P (MAP) Pulse Ox O2 Delivery O2 Flow Rate FiO2 08/31/20 10:04 81 118/62 08/31/20 08:00 35 08/31/20 08:00 Mechanical Ventilator 08/31/20 08:00 97.9 73 24 118/62 (80) 100 08/31/20 07:43 80 08/31/20 07:43 76 24 35 08/31/20 04:00 71 08/31/20 04:00 35 08/31/20 04:00 Mechanical Ventilator 08/31/20 04:00 98.2 83 24 120/58 (78) 98 08/31/20 03:09 73 24 35 08/31/20 00:00 Mechanical Ventilator 08/31/20 00:00 76 08/31/20 00:00 98.2 79 25 112/52 (72) 98 08/30/20 23:11 75 24 35 08/30/20 20:17 86 105/64 08/30/20 20:00 35 08/30/20 20:00 72 08/30/20 20:00 Mechanical Ventilator 08/30/20 20:00 96.8 86 20 105/64 (78) 98 86 08/30/20 18:44 73 25 35 08/30/20 16:00 35 08/30/20 16:00 97.3 91 19 115/56 (75) 97 91 08/30/20 16:00 Mechanical Ventilator 08/30/20 15:41 69 08/30/20 15:10 96 27 94 Mechanical Ventilator 35 08/30/20 15:10 96 27 35 08/30/20 12:00 35 08/30/20 12:00 Mechanical Ventilator 08/30/20 12:00 97.9 86 18 125/53 (77) 100 86 I&O Intake and Output 08/30/20 08/31/20 19:00 07:00 Intake Total 965 ml 1995 ml Output Total 700 ml 500 ml Balance 265 ml 1495 ml Free Water 300 ml 200 ml IV Total 125 ml 1375 ml Tube Feeding 540 ml 420 ml Output Urine Total 500 ml 350 ml Stool Total 200 ml 150 ml Dressing: saturated Cardiovascular: RSR Respiratory: decreased breath sounds Abdomen: soft, non-tender, present bowel sounds Extremities: other Laboratory Tests Test 08/31/20 09:42 Arterial Blood pH 7.277 (7.350-7.450) Arterial Blood Partial Pressure CO2 32.3 mmHg (35.0-45.0) L Arterial Blood Partial Pressure O2 85.6 mmHg (75.0-100.0) Arterial Blood HCO3 14.7 mmol/L (22.0-26.0) *L Arterial Blood Oxygen Saturation 95.6 % (95-100) Arterial Blood Base Excess -11.0 (-2-2) *L Conner Test Positive Plan Problems: (1) Decubitus skin ulcer Assessment & Plan: Pt was discharged 08/15/20 and readmitted same day. Pt presented with RECORDS SPECIALIST Shunt,Tracheostomy , GT and Multiple Pressure Injuries and contractures. Small amt exudate that is of Sanguineous mixed with Formula noted from GT. Mild excoriation noted to Peristomal GT site. Full Thickness Sacral Pressure Injury (L)10.5cm x (W)8.3cm x (D)1.5cm, Undermining clockwise 9-2 by 1.3cm @10'oclock. Base of wound is 90% granular 10% necrotic. NO odor noted. Small amt serosanguineous exudate noted.Periwound is erythematous and indurated. No changes in skin temp noted. Full Thickness Pressure Injury Outer L Lower Quadrant of Buttocks.(L)5.5cm x (W)7cm x (D)1.5cm, Undermining clockwise 9-3 by 4.5cm @12o'clock, Tunneled area within base of wound by 5.5cm @ 1-2o'clock. Base of wound is 85% % moist and pink ,15% necrotic at base at undermined area of wound. Bone exposure noted. Small amt serosanguineous exudate noted. Periwound is erythematous and ind urated. No odor noted. Full thickness Pressure Injury L Ischium(L)2cm x (W)0.9cm x (D)0.3cm. Base of wound is moist, and pink. Edges are adherent to base of wound. Periwound is maroon and indurated. NO changes in skin temp periwound. NO odor noted. Non-Blanchable erythema without induration noted to R Hip /R trochanteric.. Full Thickness Pressure Injury lateral L Tibia(L)21.5cm x (W)3.5cm x (D)0.2cm. Base of wound is 95% granular,5% necrosis along borders. Edges are adherent to base of wound . Moderate amt sanguineous exudate noted. No odor noted.Periwound skin colour is darker than is normal tone but without erythema or induration. Full thickness Pressure Injury L Heel extending into Plantar aspect of heel(L)8.7cm x (W)6.5cm x(D)0.6cm.Base of wound is 60% beefy granulation,40% necrotic. Bone is palpable. (+) Epibole at proximal borders of wound in close proximity with achilles. Small amt haemopurulent exudate noted. Wound is malodorous. Periwound is dusky and indurated. Full Thickness Pressure Injury Lateral L Foot (L)1.9cm x (W)3.4cm x (D)0.3cm, undermining clockwise 9-3 by 0.2cm @9o'clock. Base of wound is 10% necrotic 90% antonio. Wound is malodorous. Edges are macerate with scattered areas of necrosis along edges. Small amt haemopurulent exudate noted.Periwound is fluctuant and dusky. Full Thickness Pressure Injury distal/lateral L foot(L)1.3cm x (W)3.7cm x (D)0.2cm. Base of wound is 80% soft necrosis,20% moist and pink. edges are macerated. Wound is malodorous. Small amt brown exudate noted . Periwound is d usky and fluctuant. Unstageable Pressure injury dorsal L foot (L)1cm x (W)0.9cm. Base of wound is 100% necrotic. Edges are erythematous and macerated. Periwound without erythema,induration or fluctuance. Full thickness Pressure Injury R Heel including plantar aspect of heel (L)8.7cm x (W)6.5cm x (D)0.6cm. Base of wound is 60% beefy granulation,40% necrotic. Bone exposure at base of wound. Moderate amt haemopurulent exudate. Wound is malodorous. Proximal edges of wound within close proximity with achilles is rolled. Edges are otherwise macerated. Periwound is fluctuant and dusky. Full Thickness Pressure Injury distal/lateral R foot (L)0.5cm x (W)0.6cm. Base of wound is 100% fibrinous slough. Erythematous borders. Periwound without induration or fluctuance. Small amt serous exudate noted. Tx.Plan: Wash GT site with Soap and Water. Pat dry. Apply Moisture Barrier Paste around Gt Daily. Leave open to Air. Cleanse Sacral wound, L buttocks, and L Ischia wounds with Dakin's 0.25% Kristel. Loosely pack wounds with Dakin's moistened Kerlix.Apply Triad Paste periwound. Cover with Optifoam drsgs Daily and prn. Cleanse wound Lateral L Tibia with Dakin's o.25% Kristel. Rinse with Saline. Apply Promogran moistened with Saline. Apply Moisture Barrier Paste along borders. Cover with ABD Pads. Wrap with Kerlix every Mon-Wed-Fri (NOTE: Wound Nurse to Aplpy Promogran) Cleanse wounds L Foot with Dakin's 0.25% Kristel. Apply Dakin's moistened Gauze to each wound. Apply Triad Paste along Borders of each wound. Cover with ABD Pads and wrap with Kerlix Daily and prn. Cleanse R Heel wound with Dakin's 0.25% Kristel. Apply Dakin's Moistened Gauze to wound. Apply Triad Paste Periwound. Cover with ABD Pad. Wrap with Kerlix Daily and prn. Reposition at least every 2hours or as tolerated. Place Pillow Between Knees. Off-load heels with 2 Pillows. APM/TERRIE Mattress overlay. Sacral wound,L Buttocks, L Ischial wounds cleansed with Dakin's and each wound loosely packed with Dakin's moistened Kerlix.Moisture Barrier Paste applied to borders of each wound and each wound covered with Optifoam drsgs. Perianal area noted to be red and excoriated. Moisture Barrier Paste applied to affected area. Drsgs to L tibia, L Heel and R Heel noted to be saturated and malodorous. Both lower ext washed with Chlorhexidine soap prior to providing wound care.Base of wound lateral L Tibia beefy red. Edges are adherent with an area of 5% necrosis distally. Small amt sanguineous exudate No erythema or changes in skin temp periwound. Wound Later L Tibia cleansed with Saline. Promogran applied to base of wound.Moisture Barrier Paste applied along borders. Covered with ABD pad. Wrapped with Kerlix. R and L Heel wounds cleansed Dakin's 0.25% kristel. Dakin's moistened gauze applied to each wound Moisture Barrier Paste applied to borders of each wound and each wound covered with Abd Pads and each heel wrapped with Kerlix drsgs. Skin under tracheal collar assessed and no evidence of skin breakdown noted. Peristomal Gt site is resolving, Skin is moist but pink.No new skin concerns noted. ill appearing leg worsening would not tolerate amputation (2) Anemia Assessment & Plan: trend h/h prbc prn (3) UTI (urinary tract infection) (4) Pleural effusion, left Assessment & Plan: Ultrasound used to localize optimal puncture site. Sterile prepping and draping left chest. Local anesthesia with 1% lidocaine. Under real-time ultrasound guidance, puncture pleural space using thoracentesis needle. Stylet removed. Catheter placed to vacuum bottle suction. Total 1700 milliliters of fluid aspirated. Patient tolerated procedure well, without immediate complication. Findings: Followup sonography demonstrates small amount of residual pleural fluid. Impression: Successful ultrasound-guided thoracentesis, yielding 1700 milliliters of fluid Lungs: Hazy left lung attenuation could be due to consolidation, pulmonary edema; correlate with presentation. Retrocardiac atelectasis without or with consolidation. Pleural space: Small-moderate left pleural effusion with passive atelectasis. No pneumothorax. Heart: Unremarkable. No cardiomegaly. Mediastinum: Unremarkable. Bones/joints: No acute abnormality Tubes, lines and devices: Tracheostomy. Right upper extremity PICC tip in the mid SVC. IMPRESSION: 1. Tracheostomy. 2. Right upper extremity PICC tip in the mid SVC. 3. Small-moderate left pleural effusion with passive atelectasis. 4. Hazy left lung attenuation could be due to consolidation, pulmonary edema; correlate with presentation. 5. Retrocardiac atelectasis without or with consolidation. 6. Recommend CT chest with IV contrast to further characterize these findings. plan repeat thora (5) Malfunction of gastrostomy tube Assessment & Plan: DAILY ESTIMATED NEEDS: Needs based on Wounds, pulmonary/ 74.5kg 25-30 kcals/kg 0908-5647 total kcals 1.5-2 g protein/kg 111-149 g total protein 25-30 mL/kg 1858-6029 total fluid mLs NUTRITION DIAGNOSIS: * Swallowing difficulty R/T dysphagia, h/o craniotomy, respiratory failure as evidenced by pt on T-collar, GJ tube dependent. * Increased kcal/prot/micronutrients needs R/T wound healing as evidenced by pt admitted w/ multiple advanced wounds including full thickness wound x 7 and unstageable wounds x 2, refer to WC eval. CURRENT TF:Vital AF 1.2 @70ml/hr ENTERAL NUTRITION RECOMMENDATIONS: Vital AF 1.2 @ 65ml/hr x 24 hrs to provide 1560ml, 1872kcal, 117g prot, 1265ml free water * Lower goal rate to 65ml/hr x 24 hrs: meets 100% est kcal/prot needs * HOB over 30 degrees/ water flush 180ml q 6hrs without IVF ------ elemental TF formula of Vital AF not indicated, consider changing TF to Glucerna 1.2 @ 65ml/hr x 24 hrs + Prosource 1pkt TID to provide 1560ml, 1872kcal, 94g+ 33g prot, 1259ml free water ADDITIONAL RECOMMENDATIONS: * Calibrated bedscale wt * Wound Care: Con't Vit C 500mg BID, ZnSO4 220mg QD x 10 days add Stevie BID * Monitor lytes, replete as needed * DC D5 for improved BG control increase H2O flushes instead (Na now wnl, BUN elev) * Rec NISS (6) Acute respiratory failure with hypoxia (7) HCAP (healthcare-associated pneumonia) Deny Westfall Aug 31, 2020 11:47
[2020-08-31 12:00] VITALS: BP 115/64
--- NOTE | 2020-08-31 12:14 | NUR ---
NURSE NOTES: increased GT feeding from 40cc/hr to 50 cc/hr. No residual before increasing the feeding. Will be increasing the feeding according on how the patient tolerates it.
--- NOTE | 2020-08-31 12:20 | NUR ---
RD ASSESSMENT & RECOMMENDATIONS SEE CARE ACTIVITY FOR COMPLETE ASSESSMENT DAILY ESTIMATED NEEDS: Needs based on Wounds, Critical care / 74.5kg 22-28 kcals/kg 1336-4062 total kcals 1.5-2 g protein/kg 111-149 g total protein 25-30 mL/kg 7862-0934 total fluid mLs NUTRITION DIAGNOSIS: * Swallowing difficulty R/T dysphagia, h/o craniotomy, respiratory failure as evidenced by pt on T-collar, GJ tube dependent. * Increased kcal/prot/micronutrients needs R/T wound healing as evidenced by pt admitted w/ multiple advanced wounds including full thickness wound x 7 and unstageable wounds x 2, refer to WC eval. CURRENT TF:Vital AF 1.2 @80ml/hr ENTERAL NUTRITION RECOMMENDATIONS: Vital AF 1.2 @ 65ml/hr x 24 hrs to provide 1560ml, 1872kcal, 117g prot, 1265ml free water * Lower goal rate to 65ml/hr x 24 hrs naheed w/ worsening renal fxn, +diarrhea and residuals -> meets 100% est kcal/prot needs * HOB over 30 degrees/ water flush 180ml q 6hrs without IVF ADDITIONAL RECOMMENDATIONS: * Calibrated bedscale wt * Wound Care: Con't Vit C 500mg BID, ZnSO4 220mg QD x 10 days add Stevie BID * Monitor lytes and renal fxn: creat trending up Monitor need for TF change to renal TF * Monitor BGs, need for NISS * Add probiotics for diarrhea
--- NOTE | 2020-08-31 15:57 | Nephrology Progress Note ---
Assessment/Plan Plan Elevated BUN + Creatinine due to CKD Subjective Subjective Obtunded Objective Objective Last 24 Hour Vital Signs Date Time Temp Pulse Resp B/P (MAP) Pulse Ox O2 Delivery O2 Flow Rate FiO2 08/31/20 12:00 Mechanical Ventilator 08/31/20 12:00 35 08/31/20 12:00 97.9 71 25 115/64 (81) 99 08/31/20 11:46 68 08/31/20 10:30 79 25 35 08/31/20 10:04 81 118/62 08/31/20 08:00 35 08/31/20 08:00 Mechanical Ventilator 08/31/20 08:00 97.9 73 24 118/62 (80) 100 08/31/20 07:43 80 08/31/20 07:43 76 24 35 08/31/20 04:00 71 08/31/20 04:00 35 08/31/20 04:00 Mechanical Ventilator 08/31/20 04:00 98.2 83 24 120/58 (78) 98 08/31/20 03:09 73 24 35 08/31/20 00:00 Mechanical Ventilator 08/31/20 00:00 76 08/31/20 00:00 98.2 79 25 112/52 (72) 98 08/30/20 23:11 75 24 35 08/30/20 20:17 86 105/64 08/30/20 20:00 35 08/30/20 20:00 72 08/30/20 20:00 Mechanical Ventilator 08/30/20 20:00 96.8 86 20 105/64 (78) 98 86 08/30/20 18:44 73 25 35 08/30/20 16:00 35 08/30/20 16:00 97.3 91 19 115/56 (75) 97 91 08/30/20 16:00 Mechanical Ventilator Intake and Output 08/30/20 08/31/20 19:00 07:00 Intake Total 965 ml 1995 ml Output Total 700 ml 500 ml Balance 265 ml 1495 ml Free Water 300 ml 200 ml IV Total 125 ml 1375 ml Tube Feeding 540 ml 420 ml Output Urine Total 500 ml 350 ml Stool Total 200 ml 150 ml Laboratory Tests 08/31/20 09:42: Arterial Blood pH 7.277L, Arterial Blood Partial Pressure CO2 32.3L, Arterial Blood Partial Pressure O2 85.6, Arterial Blood HCO3 14.7*L, Arterial Blood Oxygen Saturation 95.6, Arterial Blood Base Excess -11.0*L, Conner Test Positive Height (Feet): 5 Height (Inches): 4.00 Weight (Pounds): 171 Objective Trach clean CV RR Lungs B ronchi Abd SNT. BS + E contractures. Benjamin Quintero MD Aug 31, 2020 15:57
[2020-08-31 16:00] VITALS: BP 108/55
--- NOTE | 2020-08-31 19:23 | NUR ---
NURSE HAND-OFF REPORT: Important Events on Shift: stable Patient Status: Diet: Pending Orders: Pending Results/Labs: Pending MD notification: Latest Vital Signs: Temperature 98.2 , Pulse 71 , B/P 108 /55 , Respiratory Rate 24 , O2 SAT 97 , Trach Collar, O2 Flow Rate 10.0 . Vital Sign Comment: EKG Rhythm: Sinus Rhythm Rhythm change?: N MD Notified?: Nadine Mak and [place] VALDEZ Response: Message left await call Latest Ramirez Fall Score: 70 Fall Risk: High Risk Safety Measures: Call light Within Reach, Bed Alarm Zone 1, Side Rails Side Rails x3, Bed position Low and Locked. Fall Precautions: Yellow Socks Patient Fall Education Report given to SELIN Moctezuma.
--- NOTE | 2020-08-31 19:24 | NUR ---
NURSE NOTES: Report received from SELIN Nowak. Upon assessment pt is awake, responsive to tactile stimuli. Unable to make needs known. Vitals WNL. Afebrile. EKG NSR 80 bpm. Saturating 100% on prescribed vent settings of AC 24 / Vt 500 / 35% fiO2. G-tube running vital AF at 50 mL with 100 mL residual. Titrate down to 40. REBECCA PICC patent and intact running NS at 125 mL/hr. [place] draining well to gravity. 250 mL of diarrhea observed in rectal bag. Bed kept in lowest and locked position. Side rails up x3. Will monitor.
[2020-08-31 20:00] VITALS: BP 110/64
[2020-08-31] MEDS: Dyna-Hex 2% Top Sol 2oz TOPIC SCH (20:25)
[2020-08-31] MEDS: Atorvastatin 20mg tab ORAL SCH (20:26)
--- NOTE | 2020-08-31 21:44 | NUR ---
NURSE NOTES: Left message for Dr. Rai in regards to Immodium PRN since C.diff negative 08/28 and ~300 mL output of diarrhea during previous shift. Titrate feeding down to 40. Pt not tolerating prescribed feeding rate. Awaiting further orders.
--- NOTE | 2020-08-31 21:52 | NUR ---
NURSE NOTES: New orders for 4 mg Loperamide GT Q4 PRN.
--- NOTE | 2020-08-31 22:16 | NUR ---
NURSE NOTES: Left message for Dr. Augustine in regards to abnormal ABG's. BiCarb and pH appears to be trending down. Awaiting further orders.
[2020-09-01] VITALS: BP 104/61
[2020-09-01] MEDS: Metoclopramide 10mg/2ml Inj IVP SCH ×4 (03:51→21:01)
[2020-09-01 04:00] VITALS: BP 114/55
[2020-09-01] MEDS: Sodium Citrate 30ml ORAL SCH ×4 (05:03→23:56)
[2020-09-01 06:50] LABS: BASOPHILS % (AUTO) 0.8 % (0.0-2.0); EOSINOPHILS % (AUTO) 5.8 % (0.0-3.0); HEMATOCRIT 30.5 % (42.0-52.0); HEMOGLOBIN 9.5 G/DL (14.2-18.0); LYMPHOCYTES % (AUTO) 25.6 % (20.0-45.0); MEAN CORPUSCULAR VOLUME 91 FL (80-99); MONOCYTES % (AUTO) 6.7 % (1.0-10.0); NEUTROPHILS % (AUTO) 61.1 % (45.0-75.0); PLATELET COUNT 337 K/UL (150-450); RED BLOOD COUNT 3.34 M/UL (4.70-6.10); RED CELL DISTRIBUTION WIDTH 16.6 % (11.6-14.8); WHITE BLOOD COUNT 5.5 K/UL (4.8-10.8)
[2020-09-01 07:05] LABS: ALBUMIN 0.8 G/DL (3.4-5.0); ALBUMIN/GLOBULIN RATIO 0.2 (1.0-2.7); BILIRUBIN,TOTAL 0.4 MG/DL (0.2-1.0); CALCIUM 8.7 MG/DL (8.5-10.1); CREATININE 1.9 MG/DL (0.55-1.30); POTASSIUM 4.7 MMOL/L (3.5-5.1)
--- NOTE | 2020-09-01 07:24 | NUR ---
NURSE HAND-OFF REPORT: Important Events on Shift: Immodium order for 300 mL diarrhea; not tolerating feeding Patient Status: Stable Diet: Vital AF @ 80 Pending Orders: Pending Results/Labs: Pending MD notification: Latest Vital Signs: Temperature 98.1 , Pulse 72 , B/P 114 /55 , Respiratory Rate 28 , O2 SAT 98 , Trach Collar, O2 Flow Rate 10.0 . Vital Sign Comment: WNL EKG Rhythm: Sinus Rhythm Rhythm change?: N MD Notified?: Nadine Mak and Quita VALDEZ Response: Message left await call Latest Ramirez Fall Score: 70 Fall Risk: High Risk Safety Measures: Call light Within Reach, Bed Alarm Zone 1, Side Rails Side Rails x3, Bed position Low and Locked. Fall Precautions: Yellow Socks Patient Fall Education Report given to SELIN Jacques.
--- NOTE | 2020-09-01 07:30 | NUR ---
NURSE NOTES: Received pt from SELIN Moctezuma, pt is sleeping, pt has trach to ventilator AC 24 TV 500 PEEP 5 FIO2 30%, Pt is on continues heart monitoring. pt has g tube in place is working well. pt has intact PICC REBECCA 22G NS 125ml/hr is running well. pt has [place] cath in place is working well. All needs attended, bed is locked and is in the lowest position, call light within easy reach. will continue to monitor.
--- NOTE | 2020-09-01 07:54 | Pulmonology Progress Note ---
Subjective ROS Limited/Unobtainable: Yes Gastrointestinal/Abdominal: Reports: diarrhea, other - X 1 Allergies: Coded Allergies: No Known Allergies (Unverified , 11/02/19) All Systems: reviewed and negative except above Subjective CARE NOTED nonverbal on vent vitals ok anemia noted Objective Last 24 Hour Vital Signs Date Time Temp Pulse Resp B/P (MAP) Pulse Ox O2 Delivery O2 Flow Rate FiO2 09/01/20 05:29 72 28 35 09/01/20 04:00 98.1 72 20 114/55 (74) 98 09/01/20 04:00 30 09/01/20 04:00 80 09/01/20 04:00 Mechanical Ventilator 09/01/20 03:30 74 24 35 09/01/20 01:19 70 30 35 09/01/20 00:00 98.4 69 24 104/61 (75) 98 09/01/20 00:00 68 09/01/20 00:00 35 09/01/20 00:00 Mechanical Ventilator 08/31/20 23:25 68 24 35 08/31/20 21:28 73 28 35 08/31/20 20:26 77 111/64 08/31/20 20:00 98.2 80 25 110/64 (79) 98 08/31/20 20:00 35 08/31/20 20:00 Mechanical Ventilator 08/31/20 20:00 79 08/31/20 19:30 75 25 35 08/31/20 16:24 71 08/31/20 16:00 98.2 69 24 108/55 (72) 97 08/31/20 16:00 35 08/31/20 16:00 Mechanical Ventilator 08/31/20 15:18 69 24 97 Mechanical Ventilator 35 08/31/20 15:10 69 24 35 08/31/20 12:00 Mechanical Ventilator 08/31/20 12:00 35 08/31/20 12:00 97.9 71 25 115/64 (81) 99 08/31/20 11:46 68 08/31/20 10:30 79 25 35 08/31/20 10:04 81 118/62 08/31/20 08:00 35 08/31/20 08:00 Mechanical Ventilator 08/31/20 08:00 97.9 73 24 118/62 (80) 100 Intake and Output 08/31/20 09/01/20 19:00 07:00 Intake Total 885 ml 1679 ml Balance 885 ml 1679 ml Free Water 260 ml 60 ml IV Total 125 ml 1269 ml Tube Feeding 500 ml 350 ml Objective WDWN NAD awake chronically ill moderate breath sounds bilaterally without rhonchi [id number] NABS nontender GT no CCE nonfocal weak wounds noted Laboratory Tests 08/31/20 09:42: Arterial Blood pH 7.277L, Arterial Blood Partial Pressure CO2 32.3L, Arterial Blood Partial Pressure O2 85.6, Arterial Blood HCO3 14.7*L, Arterial Blood Oxygen Saturation 95.6, Arterial Blood Base Excess -11.0*L, Conner Test Positive 09/01/20 04:45: White Blood Count 5.5, Red Blood Count 3.34L, Hemoglobin 9.5L, Hematocrit 30.5L, Mean Corpuscular Volume 91, Mean Corpuscular Hemoglobin 28.4, Mean Corpuscular Hemoglobin Concent 31.1L, Red Cell Distribution Width 16.6H, Platelet Count 337, Mean Platelet Volume 5.1L, Neutrophils (%) (Auto) 61.1, Lymphocytes (%) (Auto) 25.6, Monocytes (%) (Auto) 6.7, Eosinophils (%) (Auto) 5.8H, Basophils (%) (Auto) 0.8, Sodium Level 147H, Potassium Level 4.7, Chloride Level 118H, Carbon Dioxide Level 18L, Anion Gap 11, Blood Urea Nitrogen 76H, Creatinine 1.9H, Estimat Glomerular Filtration Rate 35.4, Glucose Level 82, Calcium Level 8.7, Total Bilirubin 0.4, Aspartate Amino Transf (AST/SGOT) 80H, Alanine Aminotransferase (ALT/SGPT) 79H, Alkaline Phosphatase 264H, Total Protein 5.5L, Albumin 0.8L, Globulin 4.7, Albumin/Globulin Ratio 0.2L 09/01/20 07:37: Arterial Blood pH 7.271L, Arterial Blood Partial Pressure CO2 35.7, Arterial Blood Partial Pressure O2 64.1L, Arterial Blood HCO3 16.1*L, Arterial Blood Oxygen Saturation 88.6*L, Arterial Blood Base Excess -10.0*L, Conner Test Positive Current Medications Medications (Trade) Dose Ordered Sig/Clive Route PRN Reason Start Time Stop Time Status Last Admin Dose Admin Acetaminophen (Tylenol) 650 mg Q4H PRN GT Temp >100.5 08/18/20 21:15 09/17/20 21:14 08/27/20 15:39 Amiodarone HCl (Cordarone) 200 mg DAILY GT 08/24/20 09:00 10/28/20 17:59 08/31/20 10:02 Ascorbic Acid (Vitamin C) 500 mg DAILY ORAL 08/17/20 16:00 09/16/20 15:59 08/31/20 10:03 Atorvastatin Calcium (Lipitor) 10 mg BEDTIME ORAL 08/28/20 21:45 11/24/20 20:59 08/31/20 20:26 Chlorhexidine Gluconate (Jennifer-Hex 2%) 1 applic DAILY@1999 TOPIC 07/17/20 20:00 10/15/20 19:59 08/31/20 20:25 Epoetin Tino (Epoetin Tino-EPBX(NON ESRD)) 2,000 unit TUE- SUBQ 08/25/20 21:00 11/23/20 20:59 08/29/20 22:12 Epoetin Tino (Epoetin Tino-EPBX(NON ESRD)) 3,000 unit TUE- SUBQ 08/25/20 21:00 11/23/20 20:59 08/29/20 22:12 Famotidine (Pepcid) 20 mg Q12HR GT 07/16/20 21:00 10/14/20 20:59 08/31/20 20:26 Finasteride (Proscar) 5 mg DAILY ORAL 07/15/20 09:00 10/13/20 08:59 08/31/20 10:03 Hydralazine HCl (Apresoline) 25 mg Q6H PRN GT SBP above 150 07/24/20 23:30 10/22/20 23:29 07/26/20 05:22 Levetiracetam (Keppra) 1,000 mg Q12HR ORAL 08/22/20 09:07 10/06/20 09:06 08/31/20 20:26 Loperamide HCl (Imodium) 4 mg Q4H PRN GT Diarrhea 08/31/20 22:00 09/30/20 21:59 08/31/20 22:02 Lorazepam (Ativan 2mg/ml 1ml) 1 mg Q1H PRN IV For Seizures 08/26/20 01:30 09/02/20 01:29 08/26/20 01:39 Metoclopramide HCl (Reglan) 5 mg Q6H IVP 08/21/20 22:00 09/20/20 21:59 09/01/20 03:51 Metoprolol Tartrate (Lopressor) 100 mg Q12HR ORAL 08/13/20 09:00 11/11/20 08:59 08/31/20 20:26 Midodrine (Pro-Amatine) 10 mg THREE TIMES A DAY ORAL 08/28/20 18:00 11/26/20 17:59 08/31/20 18:44 Multivitamins (Multivitamins) 1 tab DAILY ORAL 08/17/20 16:00 09/16/20 15:59 08/31/20 10:02 Sodium Hypochlorite (Dakin's Half Strength) 1 applic DAILY TOPIC 08/19/20 16:30 09/18/20 16:29 08/31/20 10:04 Sodium Chloride 1,000 ml @ 125 mls/hr Q8H IV 08/28/20 02:30 09/27/20 02:29 09/01/20 03:51 Sodium Citrate (Bicitra) 30 ml EVERY 6 HOURS ORAL 08/30/20 18:00 09/29/20 17:59 09/01/20 05:03 Zinc Sulfate (Zinc Sulfate) 220 mg DAILY ORAL 09/11/20 09:00 12/10/20 08:59 Assessment/Plan Assessment/Plan Impression: Healthcare-associated pneumonia Acute respiratory failure with hypoxia Tracheostomy status Pleural effusion, left-recurrent s/p tap Decubitus ulcers ARF Anemia S/p previous Craniotomy, RCA occlusion, ACCOUNT [employer] shunt Seizure history GERD, dysphagia s/p GJ tube h/o Hypertension h/o Atrial fibrillation Previous DVT and Pulmonary Embolism, hypernatremia bacteremia acidemia Plan events reviewed maintain vent and adjust AC as needed on antibiotics pressors as needed ID noted CXR PRN - monitor effusion monitor HH for change J tube feeds monitor oxygen needs nebs as needed Wound care monitor acidemia bicitra started orders reviewed and discussed impression, plan, and exam edited and reviewed in detail care discussed with Nikita Arreola MD Sep 01, 2020 07:54
[2020-09-01 08:00] VITALS: BP 107/62
--- NOTE | 2020-09-01 08:05 | NUR ---
NURSE NOTES: Dr Devlin is aware about ABG result and NA 147, waiting to call back. will continue to close monitoring.
[2020-09-01] MEDS ORDERED: Sodium Bicarbonate 50ml Carp IV SCH (09:00)
[2020-09-01] MEDS: Ascorbic Acid 500mg tab ORAL SCH (09:18)
[2020-09-01] MEDS: Metoprolol Tartrate 100mg tab ORAL SCH (09:18)
[2020-09-01] MEDS: Amiodarone 200mg tab GT SCH (09:18)
[2020-09-01] MEDS: Midodrine 10mg tab ORAL SCH ×3 (09:18→17:07)
[2020-09-01] MEDS: Dakin's 0.25% (Half Strength) 16oz TOPIC SCH (09:19)
--- NOTE | 2020-09-01 11:31 | NUR ---
CASE MANAGEMENT:REVIEW 09/01/20 SI: PNA. UTI. BACTEREMIA.PLEURAL EFFUSION 98.1 82 24 107/62 98% ON VENT SUPPORT W/40% FIO2 VIA TRACH H/H-9.5/30.5 BUN+76 CR+1.9 AST/ALT+80/79 PH-7.27 PO2-64.1 HCO3-16.1 O2 SAT-88.6 IS: IV NAHCO2 X1 IVF@125/HR ZINC GT QD BICITRA GT Q6HRS LIPITOR GT QHS MIDODRINE GT TID AMIODARONE GT QD KEPPRA GT Q12 IV REGLAN Q6HRS LOPRESSOR GT Q12 : NOW ON STEP DOWN UNIT DCP: REFERRED TO JOVON FINCH PLAN: WEAN OFF VENT IF POSSIBLE THORACENTESIS
--- NOTE | 2020-09-01 11:35 | Infectious Diseases Prog Note ---
"Assessment/Plan Assessment/Plan antibiotics : none A 1. pseudomonas | proteus pneumonia s/p rx COVID19 test is negative. 2. proteus | providencia sepsis s/p rx 3. pseudomonas UTI s/p rx 4. Hypertension. 5. Atrial fibrillation 6. respiratory failure s/p tracheostomy 7. pleural effusion s/p thoracentesis 8. renal failure P 1. continue off antibiotics 2. will follow up cultures Subjective ROS Limited/Unobtainable: Yes Allergies: Coded Allergies: No Known Allergies (Unverified , 11/02/19) Objective Last 24 Hour Vital Signs Date Time Temp Pulse Resp B/P (MAP) Pulse Ox O2 Delivery O2 Flow Rate FiO2 09/01/20 09:18 82 107/62 09/01/20 08:00 98.1 82 24 107/62 (77) 98 09/01/20 08:00 40 09/01/20 08:00 Mechanical Ventilator 09/01/20 07:47 92 09/01/20 05:29 72 28 35 09/01/20 04:00 98.1 72 20 114/55 (74) 98 09/01/20 04:00 30 09/01/20 04:00 80 09/01/20 04:00 Mechanical Ventilator 09/01/20 03:30 74 24 35 09/01/20 01:19 70 30 35 09/01/20 00:00 98.4 69 24 104/61 (75) 98 09/01/20 00:00 68 09/01/20 00:00 35 09/01/20 00:00 Mechanical Ventilator 08/31/20 23:25 68 24 35 08/31/20 21:28 73 28 35 08/31/20 20:26 77 111/64 08/31/20 20:00 98.2 80 25 110/64 (79) 98 08/31/20 20:00 35 08/31/20 20:00 Mechanical Ventilator 08/31/20 20:00 79 08/31/20 19:30 75 25 35 08/31/20 16:24 71 08/31/20 16:00 98.2 69 24 108/55 (72) 97 08/31/20 16:00 35 08/31/20 16:00 Mechanical Ventilator 08/31/20 15:18 69 24 97 Mechanical Ventilator 35 08/31/20 15:10 69 24 35 08/31/20 12:00 Mechanical Ventilator 08/31/20 12:00 35 08/31/20 12:00 97.9 71 25 115/64 (81) 99 08/31/20 11:46 68 Height (Feet): 5 Height (Inches): 4.00 Weight (Pounds): 171 HEENT: status post trach Respiratory/Chest: lungs clear Cardiovascular: normal rate, regular rhythm, no gallop/murmur Abdomen: soft, non tender, other - GT Extremities: no edema, other - left arm PICC Laboratory Tests Test 09/01/20 04:45 09/01/20 07:37 White Blood Count 5.5 K/UL (4.8-10.8) Red Blood Count 3.34 M/UL (4.70-6.10) L Hemoglobin 9.5 G/DL (14.2-18.0) L Hematocrit 30.5 % (42.0-52.0) L Mean Corpuscular Volume 91 FL (80-99) Mean Corpuscular Hemoglobin 28.4 PG (27.0-31.0) Mean Corpuscular Hemoglobin Concent 31.1 G/DL (32.0-36.0) L Red Cell Distribution Width 16.6 % (11.6-14.8) H Platelet Count 337 K/UL (150-450) Mean Platelet Volume 5.1 FL (6.5-10.1) L Neutrophils (%) (Auto) 61.1 % (45.0-75.0) Lymphocytes (%) (Auto) 25.6 % (20.0-45.0) Monocytes (%) (Auto) 6.7 % (1.0-10.0) Eosinophils (%) (Auto) 5.8 % (0.0-3.0) H Basophils (%) (Auto) 0.8 % (0.0-2.0) Sodium Level 147 MMOL/L (136-145) H Potassium Level 4.7 MMOL/L (3.5-5.1) Chloride Level 118 MMOL/L (98-107) H Carbon Dioxide Level 18 MMOL/L (21-32) L Anion Gap 11 mmol/L (5-15) Blood Urea Nitrogen 76 mg/dL (7-18) H Creatinine 1.9 MG/DL (0.55-1.30) H Estimat Glomerular Filtration Rate 35.4 mL/min (>60) Glucose Level 82 MG/DL (74-106) Calcium Level 8.7 MG/DL (8.5-10.1) Total Bilirubin 0.4 MG/DL (0.2-1.0) Aspartate Amino Transf (AST/SGOT) 80 U/L (15-37) H Alanine Aminotransferase (ALT/SGPT) 79 U/L (12-78) H Alkaline Phosphatase 264 U/L (46-116) H Total Protein 5.5 G/DL (6.4-8.2) L Albumin 0.8 G/DL (3.4-5.0) L Globulin 4.7 g/dL Albumin/Globulin Ratio 0.2 (1.0-2.7) L Arterial Blood pH 7.271 (7.350-7.450) Arterial Blood Partial Pressure CO2 35.7 mmHg (35.0-45.0) Arterial Blood Partial Pressure O2 64.1 mmHg (75.0-100.0) L Arterial Blood HCO3 16.1 mmol/L (22.0-26.0) *L Arterial Blood Oxygen Saturation 88.6 % (95-100) *L Arterial Blood Base Excess -10.0 (-2-2) *L Conner Test Positive Current Medications Medications (Trade) Dose Ordered Sig/Clive Route PRN Reason Start Time Stop Time Status Last Admin Dose Admin Acetaminophen (Tylenol) 650 mg Q4H PRN GT Temp >100.5 08/18/20 21:15 09/17/20 21:14 08/27/20 15:39 Amiodarone HCl (Cordarone) 200 mg DAILY GT 08/24/20 09:00 10/28/20 17:59 09/01/20 09:18 Ascorbic Acid (Vitamin C) 500 mg DAILY ORAL 08/17/20 16:00 09/16/20 15:59 09/01/20 09:18 Atorvastatin Calcium (Lipitor) 10 mg BEDTIME ORAL 08/28/20 21:45 11/24/20 20:59 08/31/20 20:26 Chlorhexidine Gluconate (Jennifer-Hex 2%) 1 applic DAILY@1999 TOPIC 07/17/20 20:00 10/15/20 19:59 08/31/20 20:25 Epoetin Tino (Epoetin Tino-EPBX(NON ESRD)) 2,000 unit SUBQ 08/25/20 21:00 11/23/20 20:59 08/29/20 22:12 Epoetin Tino (Epoetin Tino-EPBX(NON ESRD)) 3,000 unit TUE- SUBQ 08/25/20 21:00 11/23/20 20:59 08/29/20 22:12 Famotidine (Pepcid) 20 mg Q12HR GT 07/16/20 21:00 10/14/20 20:59 09/01/20 09:18 Finasteride (Proscar) 5 mg DAILY ORAL 07/15/20 09:00 10/13/20 08:59 09/01/20 09:18 Hydralazine HCl (Apresoline) 25 mg Q6H PRN GT SBP above 150 07/24/20 23:30 10/22/20 23:29 07/26/20 05:22 Levetiracetam (Keppra) 1,000 mg Q12HR ORAL 08/22/20 09:07 10/06/20 09:06 09/01/20 09:18 Loperamide HCl (Imodium) 4 mg Q4H PRN GT Diarrhea 08/31/20 22:00 09/30/20 21:59 08/31/20 22:02 Lorazepam (Ativan 2mg/ml 1ml) 1 mg Q1H PRN IV For Seizures 08/26/20 01:30 09/02/20 01:29 08/26/20 01:39 Metoclopramide HCl (Reglan) 5 mg Q6H IVP 08/21/20 22:00 09/20/20 21:59 09/01/20 09:18 Metoprolol Tartrate (Lopressor) 100 mg Q12HR ORAL 08/13/20 09:00 11/11/20 08:59 09/01/20 09:18 Midodrine (Pro-Amatine) 10 mg THREE TIMES A DAY ORAL 08/28/20 18:00 11/26/20 17:59 09/01/20 09:18 Multivitamins (Multivitamins) 1 tab DAILY ORAL 08/17/20 16:00 09/16/20 15:59 09/01/20 09:18 Sodium Hypochlorite (Dakin's Half Strength) 1 applic DAILY TOPIC 08/19/20 16:30 09/18/20 16:29 09/01/20 09:19 Sodium Chloride 1,000 ml @ 125 mls/hr Q8H IV 09/01/20 11:00 10/01/20 10:59 09/01/20 11:08 Sodium Citrate (Bicitra) 30 ml EVERY 6 HOURS ORAL 08/30/20 18:00 09/29/20 17:59 09/01/20 11:10 Zinc Sulfate (Zinc Sulfate) 220 mg DAILY ORAL 09/11/20 09:00 12/10/20 08:59 Kristie Reina MD Sep 01, 2020 11:35"
[2020-09-01 12:00] VITALS: BP 117/50
--- NOTE | 2020-09-01 13:02 | Surgery Progress Note ---
Surgery Progress Note Subjective Additional Comments no acute events ill appearing Objective Last 24 Hour Vital Signs Date Time Temp Pulse Resp B/P (MAP) Pulse Ox O2 Delivery O2 Flow Rate FiO2 09/01/20 12:00 40 09/01/20 12:00 Mechanical Ventilator 09/01/20 12:00 98.1 69 24 117/50 (72) 98 09/01/20 09:18 82 107/62 09/01/20 08:00 98.1 82 24 107/62 (77) 98 09/01/20 08:00 40 09/01/20 08:00 Mechanical Ventilator 09/01/20 07:47 92 09/01/20 07:40 40 09/01/20 07:20 80 24 30 09/01/20 05:29 72 28 35 09/01/20 04:00 98.1 72 20 114/55 (74) 98 09/01/20 04:00 30 09/01/20 04:00 80 09/01/20 04:00 Mechanical Ventilator 09/01/20 03:30 74 24 35 09/01/20 01:19 70 30 35 09/01/20 00:00 98.4 69 24 104/61 (75) 98 09/01/20 00:00 68 09/01/20 00:00 35 09/01/20 00:00 Mechanical Ventilator 08/31/20 23:25 68 24 35 08/31/20 21:28 73 28 35 08/31/20 20:26 77 111/64 08/31/20 20:00 98.2 80 25 110/64 (79) 98 08/31/20 20:00 35 08/31/20 20:00 Mechanical Ventilator 08/31/20 20:00 79 08/31/20 19:30 75 25 35 08/31/20 16:24 71 08/31/20 16:00 98.2 69 24 108/55 (72) 97 08/31/20 16:00 35 08/31/20 16:00 Mechanical Ventilator 08/31/20 15:18 69 24 97 Mechanical Ventilator 35 08/31/20 15:10 69 24 35 I&O Intake and Output 08/31/20 09/01/20 19:00 07:00 Intake Total 885 ml 1804 ml Balance 885 ml 1804 ml Free Water 260 ml 60 ml IV Total 125 ml 1394 ml Tube Feeding 500 ml 350 ml Dressing: saturated Cardiovascular: RSR Respiratory: decreased breath sounds Abdomen: soft, non-tender, present bowel sounds Extremities: no cyanosis, other Laboratory Tests Test 09/01/20 04:45 09/01/20 07:37 White Blood Count 5.5 K/UL (4.8-10.8) Red Blood Count 3.34 M/UL (4.70-6.10) L Hemoglobin 9.5 G/DL (14.2-18.0) L Hematocrit 30.5 % (42.0-52.0) L Mean Corpuscular Volume 91 FL (80-99) Mean Corpuscular Hemoglobin 28.4 PG (27.0-31.0) Mean Corpuscular Hemoglobin Concent 31.1 G/DL (32.0-36.0) L Red Cell Distribution Width 16.6 % (11.6-14.8) H Platelet Count 337 K/UL (150-450) Mean Platelet Volume 5.1 FL (6.5-10.1) L Neutrophils (%) (Auto) 61.1 % (45.0-75.0) Lymphocytes (%) (Auto) 25.6 % (20.0-45.0) Monocytes (%) (Auto) 6.7 % (1.0-10.0) Eosinophils (%) (Auto) 5.8 % (0.0-3.0) H Basophils (%) (Auto) 0.8 % (0.0-2.0) Sodium Level 147 MMOL/L (136-145) H Potassium Level 4.7 MMOL/L (3.5-5.1) Chloride Level 118 MMOL/L (98-107) H Carbon Dioxide Level 18 MMOL/L (21-32) L Anion Gap 11 mmol/L (5-15) Blood Urea Nitrogen 76 mg/dL (7-18) H Creatinine 1.9 MG/DL (0.55-1.30) H Estimat Glomerular Filtration Rate 35.4 mL/min (>60) Glucose Level 82 MG/DL (74-106) Calcium Level 8.7 MG/DL (8.5-10.1) Total Bilirubin 0.4 MG/DL (0.2-1.0) Aspartate Amino Transf (AST/SGOT) 80 U/L (15-37) H Alanine Aminotransferase (ALT/SGPT) 79 U/L (12-78) H Alkaline Phosphatase 264 U/L (46-116) H Total Protein 5.5 G/DL (6.4-8.2) L Albumin 0.8 G/DL (3.4-5.0) L Globulin 4.7 g/dL Albumin/Globulin Ratio 0.2 (1.0-2.7) L Arterial Blood pH 7.271 (7.350-7.450) Arterial Blood Partial Pressure CO2 35.7 mmHg (35.0-45.0) Arterial Blood Partial Pressure O2 64.1 mmHg (75.0-100.0) L Arterial Blood HCO3 16.1 mmol/L (22.0-26.0) *L Arterial Blood Oxygen Saturation 88.6 % (95-100) *L Arterial Blood Base Excess -10.0 (-2-2) *L Conner Test Positive Plan Problems: (1) Decubitus skin ulcer Assessment & Plan: Pt was discharged 08/15/20 and readmitted same day. Pt presented with SENIOR RISK ANALYST Shunt,Tracheostomy , GT and Multiple Pressure Injuries and contractures. Small amt exudate that is of Sanguineous mixed with Formula noted from GT. Mild excoriation noted to Peristomal GT site. Full Thickness Sacral Pressure Injury (L)10.5cm x (W)8.3cm x (D)1.5cm, Undermining clockwise 9-2 by 1.3cm @10'oclock. Base of wound is 90% granular 10% necrotic. NO odor noted. Small amt serosanguineous exudate noted.Periwound is erythematous and indurated. No changes in skin temp noted. Full Thickness Pressure Injury Outer L Lower Quadrant of Buttocks.(L)5.5cm x (W)7cm x (D)1.5cm, Undermining clockwise 9-3 by 4.5cm @12o'clock, Tunneled area within base of wound by 5.5cm @ 1-2o'clock. Base of wound is 85% % moist and pink ,15% necrotic at base at undermined area of wound. Bone exposure noted. Small amt serosanguineous exudate noted. Periwound is erythematous and indurated. No odor noted. Full thickness Pressure Injury L Ischium(L)2cm x (W)0.9cm x (D)0.3cm. Base of wound is moist, and pink. Edges are adherent to base of wound. Periwound is maroon and indurated. NO changes in skin temp periwound. NO odor noted. Non-Blanchable erythema without induration noted to R Hip /R trochanteric.. Full Thickness Pressure Injury lateral L Tibia(L)21.5cm x (W)3.5cm x (D)0.2cm. Base of wound is 95% granular,5% necrosis along borders. Edges are adherent to base of wound . Moderate amt sanguineous exudate noted. No odor noted.Periwound skin colour is darker than is normal tone but without erythema or induration. Full thickness Pressure Injury L Heel extending into Plantar aspect of heel(L)8.7cm x (W)6.5cm x(D)0.6cm.Base of wound is 60% beefy granulation,40% necrotic. Bone is palpable. (+) Epibole at proximal borders of wound in close proximity with achilles. Small amt haemopurulent exudate noted. Wound is malodorous. Periwound is dusky and indurated. Full Thickness Pressure Injury Lateral L Foot (L)1.9cm x (W)3.4cm x (D)0.3cm, undermining clockwise 9-3 by 0.2cm @9o'clock. Base of wound is 10% necrotic 90% antonio. Wound is malodorous. Edges are macerate with scattered areas of necrosis along edges. Small amt haemopurulent exudate noted.Periwound is fluctuant and dusky. Full Thickness Pressure Injury distal/lateral L foot(L)1.3cm x (W)3.7cm x (D)0.2cm. Base of wound is 80% soft necrosis,20% moist and pink. edges are macerated. Wound is malodorous. Small amt brown exudate noted . Periwound is dusky and fluctuant. Unstageable Pressure injury dorsal L foot (L)1cm x (W)0.9cm. Base of wound is 100% necrotic. Edges are erythematous and macerated. Periwound without erythema,induration or fluctuance. Full thickness Pressure Injury R Heel including plantar aspect of heel (L)8.7cm x (W)6.5cm x (D)0.6cm. Base of wound is 60% beefy granulation,40% necrotic. Bone exposure at base of wound. Moderate amt haemopurulent exudate. Wound is malodorous. Proximal edges of wound within close proximity with achilles is rolled. Edges are otherwise macerated. Periwound is fluctuant and dusky. Full Thickness Pressure Injury distal/lateral R foot (L)0.5cm x (W)0.6cm. Base o f wound is 100% fibrinous slough. Erythematous borders. Periwound without induration or fluctuance. Small amt serous exudate noted. Tx.Plan: Wash GT site with Soap and Water. Pat dry. Apply Moisture Barrier Paste around Gt Daily. Leave open to Air. Cleanse Sacral wound, L buttocks, and L Ischia wounds with Dakin's 0.25% Kristel. Loosely pack wounds with Dakin's moistened Kerlix.Apply Triad Paste periwound. Cover with Optifoam drsgs Daily and prn. Cleanse wound Lateral L Tibia with Dakin's o.25% Kristel. Rinse with Saline. Apply Promogran moistened with Saline. Apply Moisture Barrier Paste along borders. Cover with ABD Pads. Wrap with Kerlix every Mon-Wed-Fri (NOTE: Wound Nurse to Aplpy Promogran) Cleanse wounds L Foot with Dakin's 0.25% Kristel. Apply Dakin's moistened Gauze to each wound. Apply Triad Paste along Borders of each wound. Cover with ABD Pads and wrap with Kerlix Daily and prn. Cleanse R Heel wound with Dakin's 0.25% Kristel. Apply Dakin's Moistened Gauze to wound. Apply Triad Paste Periwound. Cover with ABD Pad. Wrap with Kerlix Daily and prn. Reposition at least every 2hours or as tolerated. Place Pillow Between Knees. Off-load heels with 2 Pillows. APM/TERRIE Mattress overlay. Sacral wound,L Buttocks, L Ischial wounds cleansed with Dakin's and each wound loosely packed with Dakin's moistened Kerlix.Moisture Barrier Paste applied to borders of each wound and each wound covered with Optifoam drsgs. Perianal area noted to be red and excoriated. Moisture Barrier Paste applied to affected area. Drsgs to L tibia, L Heel and R Heel noted to be saturated and malodorous. Both lower ext washed with Chlorhexidine soap prior to providing wound care.Base of wound lateral L Tibia beefy red. Edges are adherent with an area of 5% necrosis distally. Small amt sanguineous exudate No erythema or changes in skin temp periwound. Wound Later L Tibia cleansed with Saline. Promogran applied to base of wound.Moisture Barrier Paste applied along borders. Covered with ABD pad. Wrapped with Kerlix. R and L Heel wounds cleansed Dakin's 0.25% kristel. Dakin's moistened gauze applied to each wound Moisture Barrier Paste applied to borders of each wound and each wound covered with Abd Pads and each heel wrapped with Kerlix drsgs. Skin under tracheal collar assessed and no evidence of skin breakdown noted. Peristomal Gt site is resolving, Skin is moist but pink.No new skin concerns noted. ill appearing leg worsening would not tolerate amputation (2) Anemia Assessment & Plan: trend h/h prbc prn (3) UTI (urinary tract infection) (4) Pleural effusion, left Assessment & Plan: Ultrasound used to localize optimal puncture site. Sterile prepping and draping left chest. Local anesthesia with 1% lidocaine. Under real-time ultrasound guidance, puncture pleural space using thoracentesis needle. Stylet removed. Catheter placed to vacuum bottle suction. Total 1700 milliliters of fluid aspirated. Patient tolerated procedure well, without immediate complication. Findings: Followup sonography demonstrates small amount of residual pleural fluid. Impression: Successful ultrasound-guided thoracentesis, yielding 1700 milliliters of fluid Lungs: Hazy left lung attenuation could be due to consolidation, pulmonary edema; correlate with presentation. Retrocardiac atelectasis without or with consolidation. Pleural space: Small-moderate left pleural effusion with passive atelectasis. No pneumothorax. Heart: Unremarkable. No cardiomegaly. Mediastinum: Unremarkable. Bones/joints: No acute abnormality Tubes, lines and devices: Tracheostomy. Right upper extremity PICC tip in the mid SVC. IMPRESSION: 1. Tracheostomy. 2. Right upper extremity PICC tip in the mid SVC. 3. Small-moderate left pleural effusion with passive atelectasis. 4. Hazy left lung attenuation could be due to consolidation, pulmonary edema; correlate with presentation. 5. Retrocardiac atelectasis without or with consolidation. 6. Recommend CT chest with IV contrast to further characterize these findings. plan repeat thora (5) Malfunction of gastrostomy tube Assessment & Plan: DAILY ESTIMATED NEEDS: Needs based on Wounds, pulmonary/ 74.5kg 25-30 kcals/kg 0474-1202 total kcals 1.5-2 g protein/kg 111-149 g total protein 25-30 mL/kg 0429-6396 total fluid mLs NUTRITION DIAGNOSIS: * Swallowing difficulty R/T dysphagia, h/o craniotomy, respiratory failure as evidenced by pt on T-collar, GJ tube dependent. * Increased kcal/prot/micronutrients needs R/T wound healing as evidenced by pt admitted w/ multiple advanced wounds including full thickness wound x 7 and unstageable wounds x 2, refer to eval. CURRENT TF:Vital AF 1.2 @70ml/hr ENTERAL NUTRITION RECOMMENDATIONS: Vital AF 1.2 @ 65ml/hr x 24 hrs to provide 1560ml, 1872kcal, 117g prot, 1265ml free water * Lower goal rate to 65ml/hr x 24 hrs: meets 100% est kcal/prot needs * HOB over 30 degrees/ water flush 180ml q 6hrs without IVF ------ elemental TF formula of Vital AF not indicated, consider changing TF to Glucerna 1.2 @ 65ml/hr x 24 hrs + Prosource 1pkt TID to provide 1560ml, 1872kcal, 94g+ 33g prot, 1259ml free water ADDITIONAL RECOMMENDATIONS: * Calibrated bedscale wt * Wound Care: Con't Vit C 500mg BID, ZnSO4 220mg QD x 10 days add Stevie BID * Monitor lytes, replete as needed * DC D5 for improved BG control increase H2O flushes instead (Na now wnl, BUN elev) * Rec NISS (6) Acute respiratory failure with hypoxia (7) HCAP (healthcare-associated pneumonia) Deny Westfall Sep 01, 2020 13:02
--- NOTE | 2020-09-01 13:41 | Pre-Procedure Note/Attestation ---
Pre-Procedure Note/Attestation Complete Prior to Procedure Planned Procedure: left Procedure Narrative: Thoracentesis Indications for Procedure Pre-Operative Diagnosis: pleural effusion Attestation I attest that I discussed the nature of the procedure; its benefits; risks and complications; and alternatives (and the risks and benefits of such alternatives), prior to the procedure, with the patient (or the patient's legal outside sales account representative). I attest that, if there was a reasonable possibility of needing a blood turner sfusion, the patient (or the patient's legal outside sales account representative) was given the [facility] standardized written summary, pursuant to the Carlos Hernán Blood Safety Act ([place] Health and Safety Code # 1645, as amended). I attest that I re-evaluated the patient just prior to the surgery and that there has been no change in the patient's H&P, except as documented below: Marty Nelson MD Sep 01, 2020 13:40
--- NOTE | 2020-09-01 14:18 | NUR ---
*-*DISCHARGED PLANNING*-* PATIENT HAS BEEN ACCEPTED TO: [facility] P: [phone] ROOM# 24.A ~~~~~~~~~~~PENDING DISCHARGE ORDER~~~~~~~~~~~~~~
--- NOTE | 2020-09-01 14:20 | NUR ---
*-*DISCHARGED PLANNING*-* PATIENT HAS BEEN [facility]EPTED TO: [facility] P: [phone] ROOM# 24.B ~~~~~~~~~~~PENDING DISCHARGE ORDER~~~~~~~~~~~~~~
--- NOTE | 2020-09-01 14:52 | Nephrology Progress Note ---
Assessment/Plan Plan Elevated BUN + Creatinine due to CKD Subjective Subjective Obtunded Objective Objective Last 24 Hour Vital Signs Date Time Temp Pulse Resp B/P (MAP) Pulse Ox O2 Delivery O2 Flow Rate FiO2 09/01/20 12:00 40 09/01/20 12:00 Mechanical Ventilator 09/01/20 12:00 98.1 69 24 117/50 (72) 98 09/01/20 11:40 71 09/01/20 09:18 82 107/62 09/01/20 08:00 98.1 82 24 107/62 (77) 98 09/01/20 08:00 40 09/01/20 08:00 Mechanical Ventilator 09/01/20 07:47 92 09/01/20 07:40 40 09/01/20 07:20 80 24 30 09/01/20 05:29 72 28 35 09/01/20 04:00 98.1 72 20 114/55 (74) 98 09/01/20 04:00 30 09/01/20 04:00 80 09/01/20 04:00 Mechanical Ventilator 09/01/20 03:30 74 24 35 09/01/20 01:19 70 30 35 09/01/20 00:00 98.4 69 24 104/61 (75) 98 09/01/20 00:00 68 09/01/20 00:00 35 09/01/20 00:00 Mechanical Ventilator 08/31/20 23:25 68 24 35 08/31/20 21:28 73 28 35 08/31/20 20:26 77 111/64 08/31/20 20:00 98.2 80 25 110/64 (79) 98 08/31/20 20:00 35 08/31/20 20:00 Mechanical Ventilator 08/31/20 20:00 79 08/31/20 19:30 75 25 35 08/31/20 16:24 71 08/31/20 16:00 98.2 69 24 108/55 (72) 97 08/31/20 16:00 35 08/31/20 16:00 Mechanical Ventilator 08/31/20 15:18 69 24 97 Mechanical Ventilator 35 08/31/20 15:10 69 24 35 Intake and Output 08/31/20 09/01/20 19:00 07:00 Intake Total 885 ml 1804 ml Balance 885 ml 1804 ml Free Water 260 ml 60 ml IV Total 125 ml 1394 ml Tube Feeding 500 ml 350 ml Laboratory Tests 09/01/20 04:45: White Blood Count 5.5, Red Blood Count 3.34L, Hemoglobin 9.5L, Hematocrit 30.5L, Mean Corpuscular Volume 91, Mean Corpuscular Hemoglobin 28.4, Mean Corpuscular Hemoglobin Concent 31.1L, Red Cell Distribution Width 16.6H, Platelet Count 337, Mean Platelet Volume 5.1L, Neutrophils (%) (Auto) 61.1, Lymphocytes (%) (Auto) 25.6, Monocytes (%) (Auto) 6.7, Eosinophils (%) (Auto) 5.8H, Basophils (%) (Auto) 0.8, Sodium Level 147H, Potassium Level 4.7, Chloride Level 118H, Carbon Dioxide Level 18L, Anion Gap 11, Blood Urea Nitrogen 76H, Creatinine 1.9H, Estimat Glomerular Filtration Rate 35.4, Glucose Level 82, Calcium Level 8.7, Total Bilirubin 0.4, Aspartate Amino Transf (AST/SGOT) 80H, Alanine Aminotransferase (ALT/SGPT) 79H, Alkaline Phosphatase 264H, Total Protein 5.5L, Albumin 0.8L, Globulin 4.7, Albumin/Globulin Ratio 0.2L 09/01/20 07:37: Arterial Blood pH 7.271L, Arterial Blood Partial Pressure CO2 35.7, Arterial Blood Partial Pressure O2 64.1L, Arterial Blood HCO3 16.1*L, Arterial Blood Oxygen Saturation 88.6*L, Arterial Blood Base Excess -10.0*L, Conner Test Positive Height (Feet): 5 Height (Inches): 4.00 Weight (Pounds): 171 Objective Trach clean CV RR Lungs B ronchi Abd SNT. BS + E contractures. Benjamin Quintero MD Sep 01, 2020 14:52
[2020-09-01 16:00] VITALS: BP 96/57
--- NOTE | 2020-09-01 16:39 | Brief Operative Note ---
Immediate Post Operative Note Operative Note Pre-op Diagnosis: pleural effusion Procedure: thoracentesis Post-op Diagnosis: same as pre-op Surgeon: aleena Anesthesia: local Specimen: none Complications: none Fluids: none Implant(s) used?: No Marty Nelson MD Sep 01, 2020 16:39
--- NOTE | 2020-09-01 19:15 | NUR ---
NURSE NOTES: Received report from SELIN Jacques. Patient asleep in bed, obtunded, responds to deep pain stimulation, afebrile and no respiratory distress noted. trache to vent Shiley 4, AC 24, Tidal Volume 500, FiO2 40% and PEEP of 5 saturating at 100%. With Left upper arm PICC line intact, patent and asymptomatic. On Vital af 1.2 at 50cc/hr via GT intact, infusing and no residual noted. With [place] catheter to urine bag draining alec yellow below bladder. With rectal tube in place intact connected to a bag. Needs were attended. Call light within reach. Bed rails are up and padded, wheels are locked. Continue plan of care.
--- NOTE | 2020-09-01 19:29 | General Progress Note ---
Subjective ROS Limited/Unobtainable: No Constitutional: Reports: malaise, weakness HEENT: Reports: no symptoms Cardiovascular: Reports: edema Respiratory: Reports: cough, sputum Gastrointestinal/Abdominal: Reports: difficulty swallowing Genitourinary: Reports: no symptoms Neurologic/Psychiatric: Reports: pre-existing deficit Endocrine: Reports: no symptoms Hematologic/Lymphatic: Reports: anemia Allergies: Coded Allergies: No Known Allergies (Unverified , 11/02/19) All Systems: reviewed and negative except above Subjective no events. stable on the vent. no fevers or chills. tolerating feeds. no szs.completed iv abx. labs reviewed. Objective Last 24 Hour Vital Signs Date Time Temp Pulse Resp B/P (MAP) Pulse Ox O2 Delivery O2 Flow Rate FiO2 09/01/20 19:05 77 24 40 09/01/20 16:00 98.4 75 24 96/57 (70) 98 09/01/20 16:00 Mechanical Ventilator 09/01/20 16:00 40 09/01/20 15:15 72 09/01/20 13:15 72 25 40 09/01/20 12:00 40 09/01/20 12:00 Mechanical Ventilator 09/01/20 12:00 98.1 69 24 117/50 (72) 98 09/01/20 11:40 71 09/01/20 09:18 82 107/62 09/01/20 08:00 98.1 82 24 107/62 (77) 98 09/01/20 08:00 40 09/01/20 08:00 Mechanical Ventilator 09/01/20 07:47 92 09/01/20 07:40 40 09/01/20 07:20 80 24 30 09/01/20 05:29 72 28 35 09/01/20 04:00 98.1 72 20 114/55 (74) 98 09/01/20 04:00 30 09/01/20 04:00 80 09/01/20 04:00 Mechanical Ventilator 09/01/20 03:30 74 24 35 09/01/20 01:19 70 30 35 09/01/20 00:00 98.4 69 24 104/61 (75) 98 09/01/20 00:00 68 09/01/20 00:00 35 09/01/20 00:00 Mechanical Ventilator 08/31/20 23:25 68 24 35 08/31/20 21:28 73 28 35 08/31/20 20:26 77 111/64 08/31/20 20:00 98.2 80 25 110/64 (79) 98 08/31/20 20:00 35 08/31/20 20:00 Mechanical Ventilator 08/31/20 20:00 79 08/31/20 19:30 75 25 35 Intake and Output 08/31/20 09/01/20 19:00 07:00 Intake Total 885 ml 1854 ml Balance 885 ml 1854 ml Free Water 260 ml 60 ml IV Total 125 ml 1394 ml Tube Feeding 500 ml 400 ml Laboratory Tests 09/01/20 04:45: White Blood Count 5.5, Red Blood Count 3.34L, Hemoglobin 9.5L, Hematocrit 30.5L, Mean Corpuscular Volume 91, Mean Corpuscular Hemoglobin 28.4, Mean Corpuscular Hemoglobin Concent 31.1L, Red Cell Distribution Width 16.6H, Platelet Count 337, Mean Platelet Volume 5.1L, Neutrophils (%) (Auto) 61.1, Lymphocytes (%) (Auto) 25.6, Monocytes (%) (Auto) 6.7, Eosinophils (%) (Auto) 5.8H, Basophils (%) (Auto) 0.8, Sodium Level 147H, Potassium Level 4.7, Chloride Level 118H, Carbon Dioxide Level 18L, Anion Gap 11, Blood Urea Nitrogen 76H, Creatinine 1.9H, Estimat Glomerular Filtration Rate 35.4, Glucose Level 82, Calcium Level 8.7, Total Bilirubin 0.4, Aspartate Amino Transf (AST/SGOT) 80H, Alanine Aminotransferase (ALT/SGPT) 79H, Alkaline Phosphatase 264H, Total Protein 5.5L, Albumin 0.8L, Globulin 4.7, Albumin/Globulin Ratio 0.2L 09/01/20 07:37: Arterial Blood pH 7.271L, Arterial Blood Partial Pressure CO2 35.7, Arterial Blood Partial Pressure O2 64.1L, Arterial Blood HCO3 16.1*L, Arterial Blood Oxygen Saturation 88.6*L, Arterial Blood Base Excess -10.0*L, Conner Test Positive Height (Feet): 5 Height (Inches): 4.00 Weight (Pounds): 171 Objective General Appearance: WD/WN, confused EENT: normal ENT inspection. on the vent Neck: normal alignment Cardiovascular: normal rate, regular rhythm Respiratory/Chest: rhonchi - bilaterally Abdomen: normal bowel sounds, non tender, soft, no organomegaly Edema: no edema noted Leg (L), no edema noted Leg (R) Neurologic: disoriented, aphasia Skin: normal pigmentation Assessment/Plan Problem List: (1) Anemia ICD Codes: D64.9 - Anemia, unspecified SNOMED: 866289154, 851565034 Qualifiers: Qualified Codes: D50.0 - Iron deficiency anemia secondary to blood loss (chronic) (2) Pleural effusion, left ICD Codes: J90 - Pleural effusion, not elsewhere classified SNOMED: 63729176, 095820941 (3) Malfunction of gastrostomy tube ICD Codes: K94.23 - Gastrostomy malfunction SNOMED: 490166269 (4) Acute respiratory failure with hypoxia ICD Codes: J96.01 - Acute respiratory failure with hypoxia SNOMED: 66901080, 015123462 (5) HCAP (healthcare-associated pneumonia) ICD Codes: J18.9 - Pneumonia, unspecified organism SNOMED: 063607601, 868993367 Status: stable, progressing Assessment/Plan: monitor off abx trach care resp rx/suctioning as needed vent per pulm tube feeds monitor residuals sz rx bp rx monitor h/h transfuse per pulm epogen iron rx repeat cxr midodrine for low bp wound care monitor labs Angel Jaramillo MD Sep 01, 2020 19:29
--- NOTE | 2020-09-01 19:30 | NUR ---
NURSE HAND-OFF REPORT: Important Events on Shift:pt has thoracentasis with 2.4 lit out put. Patient Status: Diet: Pending Orders: Pending Results/Labs: Pending MD notification: Latest Vital Signs: Temperature 98.4 , Pulse 77 , B/P 96 /57 , Respiratory Rate 24 , O2 SAT 98 , Trach Collar, O2 Flow Rate 10.0 . Vital Sign Comment: EKG Rhythm: Sinus Rhythm Rhythm change?: N MD Notified?: Nadine Mak and [place] VALDEZ Response: Message left await call Latest Ramirez Fall Score: 70 Fall Risk: High Risk Safety Measures: Call light Within Reach, Bed Alarm Zone 1, Side Rails Side Rails x3, Bed position Low and Locked. Fall Precautions: Yellow Socks Patient Fall Education Report given to . Pt is awake and stable, no stress noted. endorsed plan of care, endorsed to increase g tube feeding to goal 80cc/hr if no residual.
[2020-09-01 20:00] VITALS: BP 123/59
[2020-09-01] MEDS: Dyna-Hex 2% Top Sol 2oz TOPIC SCH (20:57)
[2020-09-01] MEDS: Atorvastatin 20mg tab ORAL SCH (20:57)
[2020-09-01] MEDS: Metoprolol Tartrate 100mg tab GT SCH (20:57)
[2020-09-01] MEDS: levETIRAcetam 500mg/5ml Liquid GT SCH (20:58)
[2020-09-01] MEDS: Epoetin Alfa-EPBX (NON ESRD) 3000 units/ml vial SUBQ SCH (20:58)
[2020-09-01] MEDS: Epoetin Alfa-EPBX (NON ESRD) 2000 units/ml vial SUBQ SCH (20:58)
--- NOTE | 2020-09-01 21:30 | General Progress Note ---
Subjective Allergies: Coded Allergies: No Known Allergies (Unverified , 11/02/19) Subjective seen earlier today no events overnight LFT slightly higher Objective Last 24 Hour Vital Signs Date Time Temp Pulse Resp B/P (MAP) Pulse Ox O2 Delivery O2 Flow Rate FiO2 09/01/20 20:57 81 123/59 09/01/20 20:00 98.4 81 24 123/59 (80) 100 09/01/20 20:00 40 09/01/20 20:00 Mechanical Ventilator 09/01/20 19:05 77 24 40 09/01/20 16:00 98.4 75 24 96/57 (70) 98 09/01/20 16:00 Mechanical Ventilator 09/01/20 16:00 40 09/01/20 15:15 72 09/01/20 13:15 72 25 40 09/01/20 12:00 40 09/01/20 12:00 Mechanical Ventilator 09/01/20 12:00 98.1 69 24 117/50 (72) 98 09/01/20 11:40 71 09/01/20 09:18 82 107/62 09/01/20 08:00 98.1 82 24 107/62 (77) 98 09/01/20 08:00 40 09/01/20 08:00 Mechanical Ventilator 09/01/20 07:47 92 09/01/20 07:40 40 09/01/20 07:20 80 24 30 09/01/20 05:29 72 28 35 09/01/20 04:00 98.1 72 20 114/55 (74) 98 09/01/20 04:00 30 09/01/20 04:00 80 09/01/20 04:00 Mechanical Ventilator 09/01/20 03:30 74 24 35 09/01/20 01:19 70 30 35 09/01/20 00:00 98.4 69 24 104/61 (75) 98 09/01/20 00:00 68 09/01/20 00:00 35 09/01/20 00:00 Mechanical Ventilator 08/31/20 23:25 68 24 35 08/31/20 21:28 73 28 35 Intake and Output 08/31/20 09/01/20 19:00 07:00 Intake Total 885 ml 1854 ml Balance 885 ml 1854 ml Free Water 260 ml 60 ml IV Total 125 ml 1394 ml Tube Feeding 500 ml 400 ml Laboratory Tests 09/01/20 04:45: White Blood Count 5.5, Red Blood Count 3.34L, Hemoglobin 9.5L, Hematocrit 30.5L, Mean Corpuscular Volume 91, Mean Corpuscular Hemoglobin 28.4, Mean Corpuscular Hemoglobin Concent 31.1L, Red Cell Distribution Width 16.6H, Platelet Count 337, Mean Platelet Volume 5.1L, Neutrophils (%) (Auto) 61.1, Lymphocytes (%) (Auto) 25.6, Monocytes (%) (Auto) 6.7, Eosinophils (%) (Auto) 5.8H, Basophils (%) (Auto) 0.8, Sodium Level 147H, Potassium Level 4.7, Chloride Level 118H, Carbon Dioxide Level 18L, Anion Gap 11, Blood Urea Nitrogen 76H, Creatinine 1.9H, Estimat Glomerular Filtration Rate 35.4, Glucose Level 82, Calcium Level 8.7, Total Bilirubin 0.4, Aspartate Amino Transf (AST/SGOT) 80H, Alanine Aminotransferase (ALT/SGPT) 79H, Alkaline Phosphatase 264H, Total Protein 5.5L, Albumin 0.8L, Globulin 4.7, Albumin/Globulin Ratio 0.2L 09/01/20 07:37: Arterial Blood pH 7.271L, Arterial Blood Partial Pressure CO2 35.7, Arterial Blood Partial Pressure O2 64.1L, Arterial Blood HCO3 16.1*L, Arterial Blood Oxygen Saturation 88.6*L, Arterial Blood Base Excess -10.0*L, Conner Test Positive Height (Feet): 5 Height (Inches): 4.00 Weight (Pounds): 171 Objective Eldely WM NCAT (+) trach , T tube Coarse BS RRR abd soft (+) GT ext no edema Assessment/Plan Status: stable, progressing Assessment/Plan: Assessment - Abnormal LFT - ? sepsis, ? Amio, ? statin - UGIB - resolved - Anemia, s/p transfusion - hypotension - h/o PUD - resp failure, s/p trach - dysphagia, s/p PEG - atrial fibrillation - h/o DVT - hypernatremia - loose BM - decubitus ulcers - poor prognosis Recommendations - follow LFT - H2B BID indefinitely - vital AF 1.2 at 80 cc/hr as tolerated - protein supplements - TID - MVI - Vitamin C - free water - follow H&H - monitor BM Akiko Rai MD Sep 01, 2020 21:29
--- NOTE | 2020-09-01 21:55 | Diagnostic Imaging Report ---
Indications: Pleural effusion Technique: Ultrasound used to localize optimal puncture site. Sterile prepping and draping left chest. Local anesthesia with 1% lidocaine. Under real-time ultrasound guidance, puncture pleural space using thoracentesis needle. Stylet removed. Catheter placed to vacuum bottle suction. Total 2400 milliliters of fluid aspirated. Patient tolerated procedure well, without immediate complication. Findings: Followup sonography demonstrates near complete complete resolution of pleural fluid. Impression: Successful ultrasound-guided thoracentesis, yielding 2400 milliliters of fluid
--- NOTE | 2020-09-01 21:57 | Diagnostic Imaging Report ---
Indication: Status post thoracentesis Technique: One view of the chest Comparison: 08/29/2020 Findings: Interim marked improvement of previously demonstrated left pleural effusion, status post thoracentesis. No pneumothorax demonstrated. There is marked worsening of consolidation in the right mid and lower lung since prior study. The heart is mildly enlarged. Tracheostomy, left arm PICC again demonstrated. Left ventriculopleural shunt again demonstrated. Impression: Improved left pleural effusion, status post thoracentesis. No radiographically evident complication Markedly worsened right lung infiltrates
[2020-09-02] VITALS: BP 119/65
--- NOTE | 2020-09-02 00:52 | Cardiology Progress Note ---
Subjective DATE OF SERVICE: Aug 27, 2020 (late entry) Less frequent episodes of rapid atrial fibrillation today. Has been increasingly hypoxic with poor acid-base parameters. PICC line access remains in place. s/p 1700cc thorocentesis last week, and 1200cc L thorocentesis 08/18; still has pleural eff'n recurrence. On antimicrobials for positive blood, urine, and sputum cultures with multiple gram negative pathogen. No new bleeding, since back on anticoagulation now following GI clearance. Objective Last 24 Hour Vital Signs Date Time Temp Pulse Resp B/P (MAP) Pulse Ox O2 Delivery O2 Flow Rate FiO2 09/02/20 00:00 99.3 75 24 119/65 (83) 100 09/02/20 00:00 Mechanical Ventilator 09/02/20 00:00 40 09/01/20 23:27 73 28 40 09/01/20 23:01 73 09/01/20 20:57 81 123/59 09/01/20 20:00 98.4 81 24 123/59 (80) 100 09/01/20 20:00 40 09/01/20 20:00 Mechanical Ventilator 09/01/20 19:12 78 09/01/20 19:05 77 24 40 09/01/20 16:00 98.4 75 24 96/57 (70) 98 09/01/20 16:00 Mechanical Ventilator 09/01/20 16:00 40 09/01/20 15:15 72 09/01/20 13:15 72 25 40 09/01/20 12:00 40 09/01/20 12:00 Mechanical Ventilator 09/01/20 12:00 98.1 69 24 117/50 (72) 98 09/01/20 11:40 71 09/01/20 09:18 82 107/62 09/01/20 08:00 98.1 82 24 107/62 (77) 98 09/01/20 08:00 40 09/01/20 08:00 Mechanical Ventilator 09/01/20 07:47 92 09/01/20 07:40 40 09/01/20 07:20 80 24 30 09/01/20 05:29 72 28 35 09/01/20 04:00 98.1 72 20 114/55 (74) 98 09/01/20 04:00 30 09/01/20 04:00 80 09/01/20 04:00 Mechanical Ventilator 09/01/20 03:30 74 24 35 09/01/20 01:19 70 30 35 ROS: unchanged from 07/14/20 HEENT: Mechanically Ventilated, Thick Trach secretions RHYTHM: NSR, ST, PACs, Afib LUNGS: diminished breath sounds, bilateral rhonchi CARDIAC: normal S1 and S2, rapid rate, arrhythmia ABDOMEN: normal bowel sounds, soft, G-Tube intact EXTREMITIES: normal range of motion, non-tender, trace edema, other - withdrawn Laboratory Tests Test 09/01/20 04:45 09/01/20 07:37 White Blood Count 5.5 K/UL (4.8-10.8) Red Blood Count 3.34 M/UL (4.70-6.10) L Hemoglobin 9.5 G/DL (14.2-18.0) L Hematocrit 30.5 % (42.0-52.0) L Mean Corpuscular Volume 91 FL (80-99) Mean Corpuscular Hemoglobin 28.4 PG (27.0-31.0) Mean Corpuscular Hemoglobin Concent 31.1 G/DL (32.0-36.0) L Red Cell Distribution Width 16.6 % (11.6-14.8) H Platelet Count 337 K/UL (150-450) Mean Platelet Volume 5.1 FL (6.5-10.1) L Neutrophils (%) (Auto) 61.1 % (45.0-75.0) Lymphocytes (%) (Auto) 25.6 % (20.0-45.0) Monocytes (%) (Auto) 6.7 % (1.0-10.0) Eosinophils (%) (Auto) 5.8 % (0.0-3.0) H Basophils (%) (Auto) 0.8 % (0.0-2.0) Sodium Level 147 MMOL/L (136-145) H Potassium Level 4.7 MMOL/L (3.5-5.1) Chloride Level 118 MMOL/L (98-107) H Carbon Dioxide Level 18 MMOL/L (21-32) L Anion Gap 11 mmol/L (5-15) Blood Urea Nitrogen 76 mg/dL (7-18) H Creatinine 1.9 MG/DL (0.55-1.30) H Estimat Glomerular Filtration Rate 35.4 mL/min (>60) Glucose Level 82 MG/DL (74-106) Calcium Level 8.7 MG/DL (8.5-10.1) Total Bilirubin 0.4 MG/DL (0.2-1.0) Aspartate Amino Transf (AST/SGOT) 80 U/L (15-37) H Alanine Aminotransferase (ALT/SGPT) 79 U/L (12-78) H Alkaline Phosphatase 264 U/L (46-116) H Total Protein 5.5 G/DL (6.4-8.2) L Albumin 0.8 G/DL (3.4-5.0) L Globulin 4.7 g/dL Albumin/Globulin Ratio 0.2 (1.0-2.7) L Arterial Blood pH 7.271 (7.350-7.450) Arterial Blood Partial Pressure CO2 35.7 mmHg (35.0-45.0) Arterial Blood Partial Pressure O2 64.1 mmHg (75.0-100.0) L Arterial Blood HCO3 16.1 mmol/L (22.0-26.0) *L Arterial Blood Oxygen Saturation 88.6 % (95-100) *L Arterial Blood Base Excess -10.0 (-2-2) *L Conner Test Positive Assessment/Plan Assessment/Plan Respiratory failure Healthcare associated PNA Polymicrobial Gram negative bacteremia and sepsis - UTI Paroxysmal atrial fibrillation/flutter Paroxysmal atrial ectopy 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 Dyslipidemia on high dose statin - now dose adjusted Dehydration/hypernatremia Severe protein-calorie malnutrition Multiple wounds Anemia - s/p tx Pleural effusion - s/p bilateral thorocentesis Full vent support; monitor ABG and review CXR Titrate beta blockade dose as tolerated by BP; may have to digitalize. Abx per ID Cardiac monitoring Statin dose adjusted Amiodarone at increased dose to maintain sinus rhythm. Diuresis based on daily assessments of volume status; therapeutic thorocentesis as needed. Continue anticoagulation with caution due to bleeding risk Dylan Mak MD Sep 02, 2020 00:52
--- NOTE | 2020-09-02 00:55 | Cardiology Progress Note ---
Subjective DATE OF SERVICE: Sep 01, 2020 Occasional episodes of atrial fibrillation. Has been increasingly hypoxic with poor acid-base parameters. PICC line access remains in place. s/p 1700cc thorocentesis last week, and 1200cc L thorocentesis 08/18; still has pleural eff'n recurrence. On antimicrobials for positive blood, urine, and sputum cultures with multiple gram negative pathogen. No new bleeding, since back on anticoagulation now following GI clearance. Objective Last 24 Hour Vital Signs Date Time Temp Pulse Resp B/P (MAP) Pulse Ox O2 Delivery O2 Flow Rate FiO2 09/02/20 00:00 99.3 75 24 119/65 (83) 100 09/02/20 00:00 Mechanical Ventilator 09/02/20 00:00 40 09/01/20 23:27 73 28 40 09/01/20 23:01 73 09/01/20 20:57 81 123/59 09/01/20 20:00 98.4 81 24 123/59 (80) 100 09/01/20 20:00 40 09/01/20 20:00 Mechanical Ventilator 09/01/20 19:12 78 09/01/20 19:05 77 24 40 09/01/20 16:00 98.4 75 24 96/57 (70) 98 09/01/20 16:00 Mechanical Ventilator 09/01/20 16:00 40 09/01/20 15:15 72 09/01/20 13:15 72 25 40 09/01/20 12:00 40 09/01/20 12:00 Mechanical Ventilator 09/01/20 12:00 98.1 69 24 117/50 (72) 98 09/01/20 11:40 71 09/01/20 09:18 82 107/62 09/01/20 08:00 98.1 82 24 107/62 (77) 98 09/01/20 08:00 40 09/01/20 08:00 Mechanical Ventilator 09/01/20 07:47 92 09/01/20 07:40 40 09/01/20 07:20 80 24 30 09/01/20 05:29 72 28 35 09/01/20 04:00 98.1 72 20 114/55 (74) 98 09/01/20 04:00 30 09/01/20 04:00 80 09/01/20 04:00 Mechanical Ventilator 09/01/20 03:30 74 24 35 09/01/20 01:19 70 30 35 ROS: unchanged from 07/14/20 HEENT: Mechanically Ventilated, Thick Trach secretions RHYTHM: NSR, ST, PACs, Afib LUNGS: diminished breath sounds, bilateral rhonchi CARDIAC: normal S1 and S2, rapid rate, arrhythmia ABDOMEN: normal bowel sounds, soft, G-Tube intact EXTREMITIES: normal range of motion, non-tender, trace edema, other - withdrawn Laboratory Tests Test 09/01/20 04:45 09/01/20 07:37 White Blood Count 5.5 K/UL (4.8-10.8) Red Blood Count 3.34 M/UL (4.70-6.10) L Hemoglobin 9.5 G/DL (14.2-18.0) L Hematocrit 30.5 % (42.0-52.0) L Mean Corpuscular Volume 91 FL (80-99) Mean Corpuscular Hemoglobin 28.4 PG (27.0-31.0) Mean Corpuscular Hemoglobin Concent 31.1 G/DL (32.0-36.0) L Red Cell Distribution Width 16.6 % (11.6-14.8) H Platelet Count 337 K/UL (150-450) Mean Platelet Volume 5.1 FL (6.5-10.1) L Neutrophils (%) (Auto) 61.1 % (45.0-75.0) Lymphocytes (%) (Auto) 25.6 % (20.0-45.0) Monocytes (%) (Auto) 6.7 % (1.0-10.0) Eosinophils (%) (Auto) 5.8 % (0.0-3.0) H Basophils (%) (Auto) 0.8 % (0.0-2.0) Sodium Level 147 MMOL/L (136-145) H Potassium Level 4.7 MMOL/L (3.5-5.1) Chloride Level 118 MMOL/L (98-107) H Carbon Dioxide Level 18 MMOL/L (21-32) L Anion Gap 11 mmol/L (5-15) Blood Urea Nitrogen 76 mg/dL (7-18) H Creatinine 1.9 MG/DL (0.55-1.30) H Estimat Glomerular Filtration Rate 35.4 mL/min (>60) Glucose Level 82 MG/DL (74-106) Calcium Level 8.7 MG/DL (8.5-10.1) Total Bilirubin 0.4 MG/DL (0.2-1.0) Aspartate Amino Transf (AST/SGOT) 80 U/L (15-37) H Alanine Aminotransferase (ALT/SGPT) 79 U/L (12-78) H Alkaline Phosphatase 264 U/L (46-116) H Total Protein 5.5 G/DL (6.4-8.2) L Albumin 0.8 G/DL (3.4-5.0) L Globulin 4.7 g/dL Albumin/Globulin Ratio 0.2 (1.0-2.7) L Arterial Blood pH 7.271 (7.350-7.450) Arterial Blood Partial Pressure CO2 35.7 mmHg (35.0-45.0) Arterial Blood Partial Pressure O2 64.1 mmHg (75.0-100.0) L Arterial Blood HCO3 16.1 mmol/L (22.0-26.0) *L Arterial Blood Oxygen Saturation 88.6 % (95-100) *L Arterial Blood Base Excess -10.0 (-2-2) *L Conner Test Positive Assessment/Plan Assessment/Plan Respiratory failure Healthcare associated PNA Polymicrobial Gram negative bacteremia and sepsis - UTI Paroxysmal atrial fibrillation/flutter Paroxysmal atrial ectopy 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 Dyslipidemia on high dose statin - now dose adjusted Dehydration/hypernatremia Severe protein-calorie malnutrition Multiple wounds Anemia - s/p tx Pleural effusion - s/p bilateral thorocentesis Full vent support; monitor ABG and review CXR Titrate beta blockade dose as tolerated by BP. Abx per ID Cardiac monitoring Statin dose adjusted Amiodarone at increased dose to maintain sinus rhythm. Diuresis based on daily assessments of volume status; therapeutic thorocentesis planned today. Continue anticoagulation with caution due to bleeding risk Dylan Mak MD Sep 02, 2020 00:55
--- NOTE | 2020-09-02 01:00 | NUR ---
NURSE NOTES: Pt awake in bed. Bed bath given. Gown and linen were changed. suction PRN done. Pt tolerated well. Wound dressing PRN done. Continue plan of care
[2020-09-02 04:00] VITALS: BP 135/65
[2020-09-02] MEDS: Metoclopramide 10mg/2ml Inj IVP SCH ×4 (04:45→21:17)
[2020-09-02] MEDS: Sodium Citrate 30ml ORAL SCH ×4 (06:05→23:59)
[2020-09-02 06:09] LABS: ALBUMIN 0.7 G/DL (3.4-5.0); ALBUMIN/GLOBULIN RATIO 0.2 (1.0-2.7); BILIRUBIN,TOTAL 0.5 MG/DL (0.2-1.0); CALCIUM 7.9 MG/DL (8.5-10.1); CREATININE 1.6 MG/DL (0.55-1.30); POTASSIUM 4.7 MMOL/L (3.5-5.1)
--- NOTE | 2020-09-02 06:16 | NUR ---
NURSE NOTES: Pt asleep in bed. needs were attended. Afebrile. no respiratory distress noted. saturating 100% om vent settings. Continue to monitor the patient. Addendum: 09/02/20 at 0620 by ALEX Werner RN addendum: On vent settings*
--- NOTE | 2020-09-02 07:26 | NUR ---
NURSE NOTES: Received pt from RN GM, pt is sleeping, pt has trach to ventilator AC 24 TV 500 PEEP 5 FIO2 50%, Pt is on continues heart monitoring. pt has g tube in place is working well. pt has intact PICC REBECCA 1/2 NS 125ml/hr is running well. pt has [place] cath in place is working well. Pt has rectal tube in place is working well. All needs attended, bed is locked and is in the lowest position, call light within easy reach. will continue to monitor.
[2020-09-02 08:00] VITALS: BP 123/58
--- NOTE | 2020-09-02 08:40 | Pulmonology Progress Note ---
Subjective ROS Limited/Unobtainable: Yes Gastrointestinal/Abdominal: Reports: diarrhea, other - X 1 Allergies: Coded Allergies: No Known Allergies (Unverified , 11/02/19) All Systems: reviewed and negative except above Subjective CARE NOTED nonverbal on vent vitals ok anemia noted acid base better Objective Last 24 Hour Vital Signs Date Time Temp Pulse Resp B/P (MAP) Pulse Ox O2 Delivery O2 Flow Rate FiO2 09/02/20 04:00 50 09/02/20 04:00 Mechanical Ventilator 09/02/20 04:00 100.0 90 24 135/65 (88) 100 09/02/20 03:20 89 29 40 09/02/20 03:14 90 09/02/20 00:00 99.3 75 24 119/65 (83) 100 09/02/20 00:00 Mechanical Ventilator 09/02/20 00:00 40 09/01/20 23:27 73 28 40 09/01/20 23:01 73 09/01/20 20:57 81 123/59 09/01/20 20:00 98.4 81 24 123/59 (80) 100 09/01/20 20:00 40 09/01/20 20:00 Mechanical Ventilator 09/01/20 19:12 78 09/01/20 19:05 77 24 40 09/01/20 16:00 98.4 75 24 96/57 (70) 98 09/01/20 16:00 Mechanical Ventilator 09/01/20 16:00 40 09/01/20 15:15 72 09/01/20 13:15 72 25 40 09/01/20 12:00 40 09/01/20 12:00 Mechanical Ventilator 09/01/20 12:00 98.1 69 24 117/50 (72) 98 09/01/20 11:40 71 09/01/20 09:18 82 107/62 Intake and Output 09/01/20 09/02/20 19:00 07:00 Intake Total 2110 ml 2460 ml Output Total 1050 ml 800 ml Balance 1060 ml 1660 ml Free Water 300 ml 200 ml IV Total 1250 ml 1450 ml Tube Feeding 560 ml 810 ml Output Urine Total 1050 ml 500 ml Stool Total 300 ml # Bowel Movements 100 Objective WDWN NAD awake chronically ill moderate breath sounds bilaterally without rhonchi [id number] NABS nontender GT no CCE nonfocal weak wounds noted Laboratory Tests 09/02/20 03:45: Arterial Blood pH 7.342L, Arterial Blood Partial Pressure CO2 35.3, Arterial Blood Partial Pressure O2 71.3L, Arterial Blood HCO3 18.7L, Arterial Blood Oxygen Saturation 92.9L, Arterial Blood Base Excess -6.3L, Conner Test Positive 09/02/20 04:50: Sodium Level 149H, Potassium Level 4.7, Chloride Level 117H, Carbon Dioxide Level 20L, Anion Gap 12, Blood Urea Nitrogen 72H, Creatinine 1.6H, Estimat G lomerular Filtration Rate 43.2, Glucose Level 94, Calcium Level 7.9L, Total Bilirubin 0.5, Aspartate Amino Transf (AST/SGOT) 53H, Alanine Aminotransferase (ALT/SGPT) 63, Alkaline Phosphatase 210H, Total Protein 5.2L, Albumin 0.7L, Globulin 4.5, Albumin/Globulin Ratio 0.2L Current Medications Medications (Trade) Dose Ordered Sig/Clive Route PRN Reason Start Time Stop Time Status Last Admin Dose Admin Acetaminophen (Tylenol) 650 mg Q4H PRN GT Temp >100.5 08/18/20 21:15 09/17/20 21:14 08/27/20 15:39 Amiodarone HCl (Cordarone) 200 mg DAILY GT 08/24/20 09:00 10/28/20 17:59 09/01/20 09:18 Ascorbic Acid (Vitamin C) 500 mg DAILY ORAL 08/17/20 16:00 09/16/20 15:59 09/01/20 09:18 Atorvastatin Calcium (Lipitor) 10 mg BEDTIME ORAL 08/28/20 21:45 11/24/20 20:59 09/01/20 20:57 Chlorhexidine Gluconate (Jennifer-Hex 2%) 1 applic DAILY@1999 TOPIC 07/17/20 20:00 10/15/20 19:59 09/01/20 20:57 Epoetin Tino (Epoetin Tino-EPBX(NON ESRD)) 2,000 unit SUBQ 08/25/20 21:00 11/23/20 20:59 09/01/20 20:58 Epoetin Tino (Epoetin Tino-EPBX(NON ESRD)) 3,000 unit SUBQ 08/25/20 21:00 5/9/21 20:59 09/01/20 20:58 Famotidine (Pepcid) 20 mg Q12HR GT 07/16/20 21:00 10/14/20 20:59 09/01/20 20:58 Finasteride (Proscar) 5 mg DAILY ORAL 07/15/20 09:00 10/13/20 08:59 09/01/20 09:18 Hydralazine HCl (Apresoline) 25 mg Q6H PRN GT SBP above 150 07/24/20 23:30 10/22/20 23:29 07/26/20 05:22 Levetiracetam (Keppra) 1,000 mg Q12HR GT 09/01/20 21:00 10/06/20 09:06 09/01/20 20:58 Loperamide HCl (Imodium) 4 mg Q4H PRN GT Diarrhea 08/31/20 22:00 09/30/20 21:59 08/31/20 22:02 Metoclopramide HCl (Reglan) 5 mg Q6H IVP 08/21/20 22:00 09/20/20 21:59 09/02/20 04:45 Metoprolol Tartrate (Lopressor) 100 mg Q12HR GT 09/01/20 21:00 11/11/20 08:59 09/01/20 20:57 Midodrine (Pro-Amatine) 10 mg THREE TIMES A DAY ORAL 08/28/20 18:00 11/26/20 17:59 09/01/20 17:07 Multivitamins (Multivitamins) 1 tab DAILY ORAL 08/17/20 16:00 09/16/20 15:59 09/01/20 09:18 Sodium Hypochlorite (Dakin's Half Strength) 1 applic DAILY TOPIC 08/19/20 16:30 09/18/20 16:29 09/01/20 09:19 Sodium Chloride 1,000 ml @ 125 mls/hr Q8H IV 09/01/20 11:00 10/01/20 10:59 09/02/20 03:24 Sodium Citrate (Bicitra) 30 ml EVERY 6 HOURS ORAL 08/30/20 18:00 09/29/20 17:59 09/02/20 06:05 Zinc Sulfate (Zinc Sulfate) 220 mg DAILY ORAL 09/11/20 09:00 12/10/20 08:59 Assessment/Plan Assessment/Plan Impression: Healthcare-associated pneumonia Acute respiratory failure with hypoxia Tracheostomy status Pleural effusion, left-recurrent s/p tap Decubitus ulcers ARF Anemia S/p previous Craniotomy, RCA occlusion, [employer] shunt Seizure history GERD, dysphagia s/p GJ tube h/o Hypertension h/o Atrial fibrillation Previous DVT and Pulmonary Embolism, hypernatremia bacteremia acidemia Plan events reviewed maintain vent and adjust AC as needed on antibiotics pressors as needed ID noted CXR reviewed; repeated tap with improvement monitor HH for change J tube feeds monitor oxygen needs nebs as needed Wound care monitor acidemia bicitra started orders reviewed and discussed impression, plan, and exam edited and reviewed in detail care discussed with Nikita Arreola MD Sep 02, 2020 08:40
[2020-09-02] MEDS: Midodrine 10mg tab ORAL SCH ×3 (08:49→17:21)
[2020-09-02] MEDS: Ascorbic Acid 500mg tab ORAL SCH (08:49)
[2020-09-02] MEDS: Amiodarone 200mg tab GT SCH (08:49)
[2020-09-02] MEDS: levETIRAcetam 500mg/5ml Liquid GT SCH ×2 (08:49→20:05)
[2020-09-02] MEDS: Metoprolol Tartrate 100mg tab GT SCH ×2 (08:49→20:05)
[2020-09-02] MEDS: Dakin's 0.25% (Half Strength) 16oz TOPIC SCH (08:50)
--- NOTE | 2020-09-02 11:01 | Infectious Diseases Prog Note ---
"Assessment/Plan Assessment/Plan antibiotics : none A 1. pseudomonas | proteus pneumonia s/p rx COVID19 test is negative. 2. proteus | providencia sepsis s/p rx 3. pseudomonas UTI s/p rx 4. Hypertension. 5. Atrial fibrillation 6. respiratory failure s/p tracheostomy 7. pleural effusion s/p thoracentesis 8. renal failure P 1. continue off antibiotics 2. will follow up cultures Subjective ROS Limited/Unobtainable: Yes Allergies: Coded Allergies: No Known Allergies (Unverified , 11/02/19) Objective Last 24 Hour Vital Signs Date Time Temp Pulse Resp B/P (MAP) Pulse Ox O2 Delivery O2 Flow Rate FiO2 09/02/20 09:52 40 09/02/20 08:49 82 123/58 09/02/20 08:42 82 09/02/20 08:00 50 09/02/20 08:00 99.5 88 24 123/58 (79) 99 09/02/20 08:00 Mechanical Ventilator 09/02/20 04:00 50 09/02/20 04:00 Mechanical Ventilator 09/02/20 04:00 100.0 90 24 135/65 (88) 100 09/02/20 03:20 89 29 40 09/02/20 03:14 90 09/02/20 00:00 99.3 75 24 119/65 (83) 100 09/02/20 00:00 Mechanical Ventilator 09/02/20 00:00 40 09/01/20 23:27 73 28 40 09/01/20 23:01 73 09/01/20 20:57 81 123/59 09/01/20 20:00 98.4 81 24 123/59 (80) 100 09/01/20 20:00 40 09/01/20 20:00 Mechanical Ventilator 09/01/20 19:12 78 09/01/20 19:05 77 24 40 09/01/20 16:00 98.4 75 24 96/57 (70) 98 09/01/20 16:00 Mechanical Ventilator 09/01/20 16:00 40 09/01/20 15:15 72 09/01/20 13:15 72 25 40 09/01/20 12:00 40 09/01/20 12:00 Mechanical Ventilator 09/01/20 12:00 98.1 69 24 117/50 (72) 98 09/01/20 11:40 71 Height (Feet): 5 Height (Inches): 4.00 Weight (Pounds): 171 HEENT: status post trach Respiratory/Chest: lungs clear Cardiovascular: normal rate, regular rhythm, no gallop/murmur Abdomen: other - GT Extremities: other - + edema, left arm PICC Laboratory Tests Test 09/02/20 03:45 09/02/20 04:50 Arterial Blood pH 7.342 (7.350-7.450) Arterial Blood Partial Pressure CO2 35.3 mmHg (35.0-45.0) Arterial Blood Partial Pressure O2 71.3 mmHg (75.0-100.0) L Arterial Blood HCO3 18.7 mmol/L (22.0-26.0) L Arterial Blood Oxygen Saturation 92.9 % (95-100) L Arterial Blood Base Excess -6.3 (-2-2) L Conner Test Positive Sodium Level 149 MMOL/L (136-145) H Potassium Level 4.7 MMOL/L (3.5-5.1) Chloride Level 117 MMOL/L (98-107) H Carbon Dioxide Level 20 MMOL/L (21-32) L Anion Gap 12 mmol/L (5-15) Blood Urea Nitrogen 72 mg/dL (7-18) H Creatinine 1.6 MG/DL (0.55-1.30) H Estimat Glomerular Filtration Rate 43.2 mL/min (>60) Glucose Level 94 MG/DL (74-106) Calcium Level 7.9 MG/DL (8.5-10.1) L Total Bilirubin 0.5 MG/DL (0.2-1.0) Aspartate Amino Transf (AST/SGOT) 53 U/L (15-37) H Alanine Aminotransferase (ALT/SGPT) 63 U/L (12-78) Alkaline Phosphatase 210 U/L (46-116) H Total Protein 5.2 G/DL (6.4-8.2) L Albumin 0.7 G/DL (3.4-5.0) L Globulin 4.5 g/dL Albumin/Globulin Ratio 0.2 (1.0-2.7) L Current Medications Medications (Trade) Dose Ordered Sig/Clive Route PRN Reason Start Time Stop Time Status Last Admin Dose Admin Acetaminophen (Tylenol) 650 mg Q4H PRN GT Temp >100.5 08/18/20 21:15 09/17/20 21:14 08/27/20 15:39 Amiodarone HCl (Cordarone) 200 mg DAILY GT 08/24/20 09:00 10/28/20 17:59 09/02/20 08:49 Ascorbic Acid (Vitamin C) 500 mg DAILY ORAL 08/17/20 16:00 09/16/20 15:59 09/02/20 08:49 Atorvastatin Calcium (Lipitor) 10 mg BEDTIME ORAL 08/28/20 21:45 11/24/20 20:59 09/01/20 20:57 Chlorhexidine Gluconate (Jennifer-Hex 2%) 1 applic DAILY@1999 TOPIC 07/17/20 20:00 10/15/20 19:59 09/01/20 20:57 Epoetin Tino (Epoetin Tino-EPBX(NON ESRD)) 2,000 unit TUE- SUBQ 08/25/20 21:00 11/23/20 20:59 09/01/20 20:58 Epoetin Tino (Epoetin Tino-EPBX(NON ESRD)) 3,000 unit TUE- SUBQ 08/25/20 21:00 11/23/20 20:59 09/01/20 20:58 Famotidine (Pepcid) 20 mg Q12HR GT 07/16/20 21:00 10/14/20 20:59 09/02/20 08:49 Finasteride (Proscar) 5 mg DAILY ORAL 07/15/20 09:00 10/13/20 08:59 09/02/20 08:49 Hydralazine HCl (Apresoline) 25 mg Q6H PRN GT SBP above 150 07/24/20 23:30 10/22/20 23:29 07/26/20 05:22 Levetiracetam (Keppra) 1,000 mg Q12HR GT 09/01/20 21:00 10/06/20 09:06 09/02/20 08:49 Loperamide HCl (Imodium) 4 mg Q4H PRN GT Diarrhea 08/31/20 22:00 09/30/20 21:59 08/31/20 22:02 Metoclopramide HCl (Reglan) 5 mg Q6H IVP 08/21/20 22:00 09/20/20 21:59 09/02/20 09:03 Metoprolol Tartrate (Lopressor) 100 mg Q12HR GT 09/01/20 21:00 11/11/20 08:59 09/02/20 08:49 Midodrine (Pro-Amatine) 10 mg THREE TIMES A DAY ORAL 08/28/20 18:00 11/26/20 17:59 09/02/20 08:49 Multivitamins (Multivitamins) 1 tab DAILY ORAL 08/17/20 16:00 09/16/20 15:59 09/02/20 08:49 Sodium Hypochlorite (Dakin's Half Strength) 1 applic DAILY TOPIC 08/19/20 16:30 09/18/20 16:29 09/02/20 08:50 Sodium Chloride 1,000 ml @ 125 mls/hr Q8H IV 09/01/20 11:00 10/01/20 10:59 09/02/20 03:24 Sodium Citrate (Bicitra) 30 ml EVERY 6 HOURS ORAL 08/30/20 18:00 09/29/20 17:59 09/02/20 06:05 Zinc Sulfate (Zinc Sulfate) 220 mg DAILY ORAL 09/11/20 09:00 12/10/20 08:59 Kristie Reina MD Sep 02, 2020 11:01"
[2020-09-02 12:00] VITALS: BP 101/51
--- NOTE | 2020-09-02 14:08 | NUR ---
NURSE NOTES: Dr Devlin is aware about NA 149 and other lab results and V/S ordered D/C 1/2 NS and started D5W 125ml/hr, noted and carried out.
[2020-09-02 16:00] VITALS: BP 104/57
--- NOTE | 2020-09-02 17:10 | Surgery Progress Note ---
Surgery Progress Note Subjective Additional Comments h/h stable no new bleeding comfortable ill appearing Objective Last 24 Hour Vital Signs Date Time Temp Pulse Resp B/P (MAP) Pulse Ox O2 Delivery O2 Flow Rate FiO2 09/02/20 16:00 Mechanical Ventilator 09/02/20 16:00 98.2 73 24 104/57 (73) 100 09/02/20 16:00 40 09/02/20 12:28 72 09/02/20 12:00 98.2 72 24 101/51 (68) 100 09/02/20 11:48 Mechanical Ventilator 09/02/20 09:52 40 09/02/20 08:49 82 123/58 09/02/20 08:42 82 09/02/20 08:00 50 09/02/20 08:00 99.5 88 24 123/58 (79) 99 09/02/20 08:00 Mechanical Ventilator 09/02/20 04:00 50 09/02/20 04:00 Mechanical Ventilator 09/02/20 04:00 100.0 90 24 135/65 (88) 100 09/02/20 03:20 89 29 40 09/02/20 03:14 90 09/02/20 00:00 99.3 75 24 119/65 (83) 100 09/02/20 00:00 Mechanical Ventilator 09/02/20 00:00 40 09/01/20 23:27 73 28 40 09/01/20 23:01 73 09/01/20 20:57 81 123/59 09/01/20 20:00 98.4 81 24 123/59 (80) 100 09/01/20 20:00 40 09/01/20 20:00 Mechanical Ventilator 09/01/20 19:12 78 09/01/20 19:05 77 24 40 I&O Intake and Output 09/01/20 09/02/20 19:00 07:00 Intake Total 2110 ml 2460 ml Output Total 1050 ml 800 ml Balance 1060 ml 1660 ml Free Water 300 ml 200 ml IV Total 1250 ml 1450 ml Tube Feeding 560 ml 810 ml Output Urine Total 1050 ml 500 ml Stool Total 300 ml # Bowel Movements 100 Dressing: saturated Cardiovascular: RSR Respiratory: decreased breath sounds Abdomen: soft, non-tender, present bowel sounds, non-distended Extremities: no cyanosis, other Laboratory Tests Test 09/02/20 03:45 09/02/20 04:50 Arterial Blood pH 7.342 (7.350-7.450) Arterial Blood Partial Pressure CO2 35.3 mmHg (35.0-45.0) Arterial Blood Partial Pressure O2 71.3 mmHg (75.0-100.0) L Arterial Blood HCO3 18.7 mmol/L (22.0-26.0) L Arterial Blood Oxygen Saturation 92.9 % (95-100) L Arterial Blood Base Excess -6.3 (-2-2) L Conner Test Positive Sodium Level 149 MMOL/L (136-145) H Potassium Level 4.7 MMOL/L (3.5-5.1) Chloride Level 117 MMOL/L (98-107) H Carbon Dioxide Level 20 MMOL/L (21-32) L Anion Gap 12 mmol/L (5-15) Blood Urea Nitrogen 72 mg/dL (7-18) H Creatinine 1.6 MG/DL (0.55-1.30) H Estimat Glomerular Filtration Rate 43.2 mL/min (>60) Glucose Level 94 MG/DL (74-106) Calcium Level 7.9 MG/DL (8.5-10.1) L Total Bilirubin 0.5 MG/DL (0.2-1.0) Aspartate Amino Transf (AST/SGOT) 53 U/L (15-37) H Alanine Aminotransferase (ALT/SGPT) 63 U/L (12-78) Alkaline Phosphatase 210 U/L (46-116) H Total Protein 5.2 G/DL (6.4-8.2) L Albumin 0.7 G/DL (3.4-5.0) L Globulin 4.5 g/dL Albumin/Globulin Ratio 0.2 (1.0-2.7) L Plan Problems: (1) Decubitus skin ulcer Assessment & Plan: Pt was discharged 08/15/20 and readmitted same day. 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 Small amt exudate that is of Sanguineous mixed with Formula noted from GT. Mild excoriation noted to Peristomal GT site. Full Thickness Sacral Pressure Injury (L)10.5cm x (W)8.3cm x (D)1.5cm, Undermining clockwise 9-2 by 1.3cm @10'oclock. Base of wound is 90% granular 10% necrotic. NO odor noted. Small amt serosanguineous exudate noted.Periwound is erythematous and indurated. No changes in skin temp noted. Full Thickness Pressure Injury Outer L Lower Quadrant of Buttocks.(L)5.5cm x (W)7cm x (D)1.5cm, Undermining clockwise 9-3 by 4.5cm @12o'clock, Tunneled area within base of wound by 5.5cm @ 1-2o'clock. Base of wound is 85% % moist and pink ,15% necrotic at base at undermined area of wound. Bone exposure noted. Small amt serosanguineous exudate noted. Periwound is erythematous and indurated. No odor noted. Full thickness Pressure Injury L Ischium(L)2cm x (W)0.9cm x (D)0.3cm. Base of wound is moist, and pink. Edges are adherent to base of wound. Periwound is maroon and indurated. NO changes in skin temp periwound. NO odor noted. Non-Blanchable erythema without induration noted to R Hip /R trochanteric.. Full Thickness Pressure Injury lateral L Tibia(L)21.5cm x (W)3.5cm x (D)0.2cm. Base of wound is 95% granular,5% necrosis along borders. Edges are adherent to base of wound . Moderate amt sanguineous exudate noted. No odor noted.Periwound skin colour is darker than is normal tone but without erythema or induration. Full thickness Pressure Injury L Heel extending into Plantar aspect of heel(L)8.7cm x (W)6.5cm x(D)0.6cm.Base of wound is 60% beefy granulation,40% nec rotic. Bone is palpable. (+) Epibole at proximal borders of wound in close proximity with achilles. Small amt haemopurulent exudate noted. Wound is malodorous. Periwound is dusky and indurated. Full Thickness Pressure Injury Lateral L Foot (L)1.9cm x (W)3.4cm x (D)0.3cm, undermining clockwise 9-3 by 0.2cm @9o'clock. Base of wound is 10% necrotic 90% antonio. Wound is malodorous. Edges are macerate with scattered areas of necrosis along edges. Small amt haemopurulent exudate noted.Periwound is fluctuant and du shalom. Full Thickness Pressure Injury distal/lateral L foot(L)1.3cm x (W)3.7cm x (D)0.2cm. Base of wound is 80% soft necrosis,20% moist and pink. edges are macerated. Wound is malodorous. Small amt brown exudate noted . Periwound is dusky and fluctuant. Unstageable Pressure injury dorsal L foot (L)1cm x (W)0.9cm. Base of wound is 100% necrotic. Edges are erythematous and macerated. Periwound without erythema,induration or fluctuance. Full thickness Pressure Injury R Heel including plantar aspect of heel (L)8.7cm x (W)6.5cm x (D)0.6cm. Base of wound is 60% beefy granulation,40% necrotic. Bone exposure at base of wound. Moderate amt haemopurulent exudate. Wound is malodorous. Proximal edges of wound within close proximity with achilles is rolled. Edges are otherwise macerated. Periwound is fluctuant and dusky. Full Thickness Pressure Injury distal/lateral R foot (L)0.5cm x (W)0.6cm. Base of wound is 100% fibrinous slough. Erythematous borders. Periwound without induration or fluctuance. Small amt serous exudate noted. Tx.Plan: Wash GT site with Soap and Water. Pat dry. Apply Moisture Barrier Paste around Gt Daily. Leave open to Air. Cleanse Sacral wound, L buttocks, and L Ischia wounds with Dakin's 0.25% Kristel. Loosely pack wounds with Dakin's moistened Kerlix.Apply Triad Paste periwound. Cover with Optifoam drsgs Daily and prn. Cleanse wound Lateral L Tibia with Dakin's o.25% Kristel. Rinse with Saline. Apply Promogran moistened with Saline. Apply Moisture Barrier Paste along borders. Cover with ABD Pads. Wrap with Kerlix every Mon-Wed-Fri (NOTE: Wound Nurse to Aplpy Promogran) Cleanse wounds L Foot with Dakin's 0.25% Kristel. Apply Dakin's moistened Gauze to each wound. Apply Triad Paste along Borders of each wound. Cover with ABD Pads and wrap with Kerlix Daily and prn. Cleanse R Heel wound with Dakin's 0.25% Kristel. Apply Dakin's Moistened Gauze to wound. Apply Triad Paste Periwound. Cover with ABD Pad. Wrap with Kerlix Daily and prn. Reposition at least every 2hours or as tolerated. Place Pillow Between Knees. Off-load heels with 2 Pillows. APM/TERRIE Mattress overlay. Sacral wound,L Buttocks, L Ischial wounds cleansed with Dakin's and each wound loosely packed with Dakin's moistened Kerlix.Moisture Barrier Paste applied to borders of each wound and each wound covered with Optifoam drsgs. Perianal area noted to be red and excoriated. Moisture Barrier Paste applied to affected area. Drsgs to L tibia, L Heel and R Heel noted to be saturated and malodorous. Both lower ext washed with Chlorhexidine soap prior to providing wound care.Base of wound lateral L Tibia beefy red. Edges are adherent with an area of 5% necrosis distally. Small amt sanguineous exudate No erythema or changes in skin temp periwound. Wound Later L Tibia cleansed with Saline. Promogran applied to base of wound.Moisture Barrier Paste applied along borders. Covered with ABD pad. Wrapped with Kerlix. R and L Heel wounds cleansed Dakin's 0.25% kristel. Dakin's moistened gauze applied to each wound Moisture Barrier Paste applied to borders of each wound and each wound covered with Abd Pads and each heel wrapped with Kerlix drsgs. Skin under tracheal collar assessed and no evidence of skin breakdown noted. Peristomal Gt site is resolving, Skin is moist but pink.No new skin concerns noted. ill appearing leg worsening would not tolerate amputation (2) Anemia Assessment & Plan: trend h/h prbc prn (3) UTI (urinary tract infection) (4) Pleural effusion, left Assessment & Plan: Ultrasound used to localize optimal puncture site. Sterile prepping and draping left chest. Local anesthesia with 1% lidocaine. Under real-time ultrasound guidance, puncture pleural space using thoracentesis needle. Stylet removed. Catheter placed to vacuum bottle suction. Total 1700 milliliters of fluid aspirated. Patient tolerated procedure well, without immediate complication. Findings: Followup sonography demonstrates small amount of residual pleural fluid. Impression: Successful ultrasound-guided thoracentesis, yielding 1700 milliliters of fluid Lungs: Hazy left lung attenuation could be due to consolidation, pulmonary edema; correlate with presentation. Retrocardiac atelectasis without or with consolidation. Pleural space: Small-moderate left pleural effusion with passive atelectasis. No pneumothorax. Heart: Unremarkable. No cardiomegaly. Mediastinum: Unremarkable. Bones/joints: No acute abnormality Tubes, lines and devices: Tracheostomy. Right upper extremity PICC tip in the mid SVC. IMPRESSION: 1. Tracheostomy. 2. Right upper extremity PICC tip in the mid SVC. 3. Small-moderate left pleural effusion with passive atelectasis. 4. Hazy left lung attenuation could be due to consolidation, pulmonary edema; correlate with presentation. 5. Retrocardiac atelectasis without or with consolidation. 6. Recommend CT chest with IV contrast to further characterize these findings. plan repeat brandta (5) Malfunction of gastrostomy tube Assessment & Plan: DAILY ESTIMATED NEEDS: Needs based on Wounds, pulmonary/ 74.5kg 25-30 kcals/kg 6839-3122 total kcals 1.5-2 g protein/kg 111-149 g total protein 25-30 mL/kg 9365-6592 total fluid mLs NUTRITION DIAGNOSIS: * Swallowing difficulty R/T dysphagia, h/o craniotomy, respiratory failure as evidenced by pt on T-collar, GJ tube dependent. * Increased kcal/prot/micronutrients needs R/T wound healing as evidenced by pt admitted w/ multiple advanced wounds including full thickness wound x 7 and unstageable wounds x 2, refer to eval. CURRENT TF:Vital AF 1.2 @70ml/hr ENTERAL NUTRITION RECOMMENDATIONS: Vital AF 1.2 @ 65ml/hr x 24 hrs to provide 1560ml, 1872kcal, 117g prot, 1265ml free water * Lower goal rate to 65ml/hr x 24 hrs: meets 100% est kcal/prot needs * HOB over 30 degrees/ water flush 180ml q 6hrs without IVF ------ elemental TF formula of Vital AF not indicated, consider changing TF to Glucerna 1.2 @ 65ml/hr x 24 hrs + Prosource 1pkt TID to provide 1560ml, 1872kcal, 94g+ 33g prot, 1259ml free water ADDITIONAL RECOMMENDATIONS: * Calibrated bedscale wt * Wound Care: Con't Vit C 500mg BID, ZnSO4 220mg QD x 10 days add Stevie BID * Monitor lytes, replete as needed * DC D5 for improved BG control increase H2O flushes instead (Na now wnl, BUN elev) * Rec NISS (6) Acute respiratory failure with hypoxia (7) HCAP (healthcare-associated pneumonia) Deny Westfall Sep 02, 2020 17:10
--- NOTE | 2020-09-02 18:03 | Nephrology Progress Note ---
Assessment/Plan Plan Elevated BUN + Creatinine due to CKD Subjective Subjective Obtunded Objective Objective Last 24 Hour Vital Signs Date Time Temp Pulse Resp B/P (MAP) Pulse Ox O2 Delivery O2 Flow Rate FiO2 09/02/20 16:00 Mechanical Ventilator 09/02/20 16:00 98.2 73 24 104/57 (73) 100 09/02/20 16:00 40 09/02/20 12:28 72 09/02/20 12:00 98.2 72 24 101/51 (68) 100 09/02/20 11:48 Mechanical Ventilator 09/02/20 09:52 40 09/02/20 08:49 82 123/58 09/02/20 08:42 82 09/02/20 08:00 50 09/02/20 08:00 99.5 88 24 123/58 (79) 99 09/02/20 08:00 Mechanical Ventilator 09/02/20 04:00 50 09/02/20 04:00 Mechanical Ventilator 09/02/20 04:00 100.0 90 24 135/65 (88) 100 09/02/20 03:20 89 29 40 09/02/20 03:14 90 09/02/20 00:00 99.3 75 24 119/65 (83) 100 09/02/20 00:00 Mechanical Ventilator 09/02/20 00:00 40 09/01/20 23:27 73 28 40 09/01/20 23:01 73 09/01/20 20:57 81 123/59 09/01/20 20:00 98.4 81 24 123/59 (80) 100 09/01/20 20:00 40 09/01/20 20:00 Mechanical Ventilator 09/01/20 19:12 78 09/01/20 19:05 77 24 40 Intake and Output 09/01/20 09/02/20 19:00 07:00 Intake Total 2110 ml 2460 ml Output Total 1050 ml 800 ml Balance 1060 ml 1660 ml Free Water 300 ml 200 ml IV Total 1250 ml 1450 ml Tube Feeding 560 ml 810 ml Output Urine Total 1050 ml 500 ml Stool Total 300 ml # Bowel Movements 100 Laboratory Tests 09/02/20 03:45: Arterial Blood pH 7.342L, Arterial Blood Partial Pressure CO2 35.3, Arterial Blood Partial Pressure O2 71.3L, Arterial Blood HCO3 18.7L, Arterial Blood Oxygen Saturation 92.9L, Arterial Blood Base Excess -6.3L, Conner Test Positive 09/02/20 04:50: Sodium Level 149H, Potassium Level 4.7, Chloride Level 117H, Carbon Dioxide Level 20L, Anion Gap 12, Blood Urea Nitrogen 72H, Creatinine 1.6H, Estimat Glomerular Filtration Rate 43.2, Glucose Level 94, Calcium Level 7.9L, Total Bilirubin 0.5, Aspartate Amino Transf (AST/SGOT) 53H, Alanine Aminotransferase (ALT/SGPT) 63, Alkaline Phosphatase 210H, Total Protein 5.2L, Albumin 0.7L, Globulin 4.5, Albumin/Globulin Ratio 0.2L Height (Feet): 5 Height (Inches): 4.00 Weight (Pounds): 171 Objective Trach clean CV RR Lungs B ronchi Abd SNT. BS + E contractures. Benjamin Quintero MD Sep 02, 2020 18:03
--- NOTE | 2020-09-02 19:29 | NUR ---
NURSE NOTES: Received report from SELIN Jacques. Pt is awake, obtunded, no signs of acute distress noted. SpO2 97% on AC 24, TV 500, FiO2 40%, PEEP 5. SR on epidemiology investigator. GT intact and dry, running Vital AF 80cc/hr, residual at 10cc. Rectal tube and valles intact and draining well to gravity. L UA PICC no signs of infiltration, D5W running at 125ml/hr. Pt edematous, +4 pitting of R hand, +1 on L arms. Isolation precautions noted and reinforced. Fall risk, aspiration risk, and seizure precautions noted and reinforced. HOB elevated, side rails x3 and padded, call light within reach, bed alarmed, locked, and in lowest position. Will continue plan of care. Will continue to monitor.
--- NOTE | 2020-09-02 19:32 | NUR ---
NURSE HAND-OFF REPORT: Important Events on Shift: Patient Status: Diet: Pending Orders: Pending Results/Labs: Pending MD notification: Latest Vital Signs: Temperature 98.2 , Pulse 73 , B/P 104 /57 , Respiratory Rate 24 , O2 SAT 100 , Trach Collar, O2 Flow Rate 10.0 . Vital Sign Comment: EKG Rhythm: Sinus Rhythm Rhythm change?: N MD Notified?: Nadine Mak and Quita VALDEZ Response: Message left await call Latest Ramirez Fall Score: 70 Fall Risk: High Risk Safety Measures: Call light Within Reach, Bed Alarm Zone 1, Side Rails Side Rails x3, Bed position Low and Locked. Fall Precautions: Yellow Socks Patient Fall Education Report given to . Pt is sleeping and stable, no stress noted, endorsed plan of care.
[2020-09-02 20:00] VITALS: BP 108/55
[2020-09-02] MEDS: Dyna-Hex 2% Top Sol 2oz TOPIC SCH (20:04)
[2020-09-02] MEDS: Atorvastatin 20mg tab ORAL SCH (20:04)
--- NOTE | 2020-09-02 20:45 | General Progress Note ---
Subjective Allergies: Coded Allergies: No Known Allergies (Unverified , 11/02/19) Subjective seen earlier today no events overnight LFT improved Objective Last 24 Hour Vital Signs Date Time Temp Pulse Resp B/P (MAP) Pulse Ox O2 Delivery O2 Flow Rate FiO2 09/02/20 20:05 81 108/55 09/02/20 20:00 Mechanical Ventilator 09/02/20 20:00 78 09/02/20 20:00 98.2 81 24 108/55 (72) 97 09/02/20 20:00 40 09/02/20 16:00 Mechanical Ventilator 09/02/20 16:00 98.2 73 24 104/57 (73) 100 09/02/20 16:00 40 09/02/20 15:37 75 09/02/20 13:15 74 24 40 09/02/20 12:28 72 09/02/20 12:00 98.2 72 24 101/51 (68) 100 09/02/20 11:48 Mechanical Ventilator 09/02/20 09:52 40 09/02/20 08:49 82 123/58 09/02/20 08:42 82 09/02/20 08:00 50 09/02/20 08:00 99.5 88 24 123/58 (79) 99 09/02/20 08:00 Mechanical Ventilator 09/02/20 07:20 79 24 40 09/02/20 04:00 50 09/02/20 04:00 Mechanical Ventilator 09/02/20 04:00 100.0 90 24 135/65 (88) 100 09/02/20 03:20 89 29 40 09/02/20 03:14 90 09/02/20 00:00 99.3 75 24 119/65 (83) 100 09/02/20 00:00 Mechanical Ventilator 09/02/20 00:00 40 09/01/20 23:27 73 28 40 09/01/20 23:01 73 09/01/20 20:57 81 123/59 Intake and Output 09/01/20 09/02/20 19:00 07:00 Intake Total 2110 ml 2460 ml Output Total 1050 ml 800 ml Balance 1060 ml 1660 ml Free Water 300 ml 200 ml IV Total 1250 ml 1450 ml Tube Feeding 560 ml 810 ml Output Urine Total 1050 ml 500 ml Stool Total 300 ml # Bowel Movements 100 Laboratory Tests 09/02/20 03:45: Arterial Blood pH 7.342L, Arterial Blood Partial Pressure CO2 35.3, Arterial Blood Partial Pressure O2 71.3L, Arterial Blood HCO3 18.7L, Arterial Blood Oxyg en Saturation 92.9L, Arterial Blood Base Excess -6.3L, Conner Test Positive 09/02/20 04:50: Sodium Level 149H, Potassium Level 4.7, Chloride Level 117H, Carbon Dioxide Level 20L, Anion Gap 12, Blood Urea Nitrogen 72H, Creatinine 1.6H, Estimat Glomerular Filtration Rate 43.2, Glucose Level 94, Calcium Level 7.9L, Total Bilirubin 0.5, Aspartate Amino Transf (AST/SGOT) 53H, Alanine Aminotransferase (ALT/SGPT) 63, Alkaline Phosphatase 210H, Total Protein 5.2L, Albumin 0.7L, Globulin 4.5, Albumin/Globulin Ratio 0.2L Height (Feet): 5 Height (Inches): 4.00 Weight (Pounds): 171 Objective Eldely WM NCAT (+) trach , T tube Coarse BS RRR abd soft (+) GT ext no edema Assessment/Plan Status: stable, progressing Assessment/Plan: Assessment - Abnormal LFT - ? sepsis, ? Amio, ? statin - UGIB - resolved - Anemia, s/p transfusion - hypotension - h/o PUD - resp failure, s/p trach - dysphagia, s/p PEG - atrial fibrillation - h/o DVT - hypernatremia - loose BM - decubitus ulcers - poor prognosis Recommendations - follow LFT - H2B BID indefinitely - vital AF 1.2 at 80 cc/hr as tolerated - protein supplements - TID - MVI - Vitamin C - free water - follow H&H - monitor Akiko Yu MD Sep 02, 2020 20:44
--- NOTE | 2020-09-02 21:24 | NUR ---
NURSE NOTES: Administered PM meds. GT residuals for Vital AF at 80cc/hr was 90ml. Lowered rate to 70cc/hr. Will continue to monitor. Will continue plan of care.
[2020-09-02] MEDS ORDERED: Tubing IV Secondary IV ONE (21:52)
[2020-09-02] MEDS ORDERED: Sterile Water Irrig 1000ml IRRIG ONE (21:52)
[2020-09-02] MEDS ORDERED: NS 275ml ONE (21:52)
[2020-09-03] VITALS: BP 112/67
--- NOTE | 2020-09-03 02:13 | Cardiology Progress Note ---
Subjective DATE OF SERVICE: Sep 02, 2020 Occasional episodes of atrial fibrillation - but mostly maintaining sinus rhythm now. Has been increasingly hypoxic with poor acid-base parameters. PICC line access remains in place. s/p multiple thorocentesis episodes. On antimicrobials for positive blood, urine, and sputum cultures with multiple gram negative pathogen. No new bleeding, since back on anticoagulation now following GI clearance. Objective Last 24 Hour Vital Signs Date Time Temp Pulse Resp B/P (MAP) Pulse Ox O2 Delivery O2 Flow Rate FiO2 09/03/20 00:00 Mechanical Ventilator 09/03/20 00:00 83 09/03/20 00:00 99.1 84 24 112/67 (82) 97 09/02/20 23:14 83 24 40 09/02/20 20:05 81 108/55 09/02/20 20:00 Mechanical Ventilator 09/02/20 20:00 78 09/02/20 20:00 98.2 81 24 108/55 (72) 97 09/02/20 20:00 40 09/02/20 19:30 70 26 40 09/02/20 16:00 Mechanical Ventilator 09/02/20 16:00 98.2 73 24 104/57 (73) 100 09/02/20 16:00 40 09/02/20 15:37 75 09/02/20 13:15 74 24 40 09/02/20 12:28 72 09/02/20 12:00 98.2 72 24 101/51 (68) 100 09/02/20 11:48 Mechanical Ventilator 09/02/20 09:52 40 09/02/20 08:49 82 123/58 09/02/20 08:42 82 09/02/20 08:00 50 09/02/20 08:00 99.5 88 24 123/58 (79) 99 09/02/20 08:00 Mechanical Ventilator 09/02/20 07:20 79 24 40 09/02/20 04:00 50 09/02/20 04:00 Mechanical Ventilator 09/02/20 04:00 100.0 90 24 135/65 (88) 100 09/02/20 03:20 89 29 40 09/02/20 03:14 90 ROS: unchanged from 07/14/20 HEENT: Mechanically Ventilated, Thick Trach secretions RHYTHM: NSR, ST, PACs, Afib LUNGS: diminished breath sounds, bilateral rhonchi CARDIAC: normal S1 and S2, rapid rate, arrhythmia ABDOMEN: normal bowel sounds, soft, G-Tube intact EXTREMITIES: normal range of motion, non-tender, trace edema, other - withdrawn Laboratory Tests Test 09/02/20 03:45 09/02/20 04:50 Arterial Blood pH 7.342 (7.350-7.450) Arterial Blood Partial Pressure CO2 35.3 mmHg (35.0-45.0) Arterial Blood Partial Pressure O2 71.3 mmHg (75.0-100.0) L Arterial Blood HCO3 18.7 mmol/L (22.0-26.0) L Arterial Blood Oxygen Saturation 92.9 % (95-100) L Arterial Blood Base Excess -6.3 (-2-2) L Conner Test Positive Sodium Level 149 MMOL/L (136-145) H Potassium Level 4.7 MMOL/L (3.5-5.1) Chloride Level 117 MMOL/L (98-107) H Carbon Dioxide Level 20 MMOL/L (21-32) L Anion Gap 12 mmol/L (5-15) Blood Urea Nitrogen 72 mg/dL (7-18) H Creatinine 1.6 MG/DL (0.55-1.30) H Estimat Glomerular Filtration Rate 43.2 mL/min (>60) Glucose Level 94 MG/DL (74-106) Calcium Level 7.9 MG/DL (8.5-10.1) L Total Bilirubin 0.5 MG/DL (0.2-1.0) Aspartate Amino Transf (AST/SGOT) 53 U/L (15-37) H Alanine Aminotransferase (ALT/SGPT) 63 U/L (12-78) Alkaline Phosphatase 210 U/L (46-116) H Total Protein 5.2 G/DL (6.4-8.2) L Albumin 0.7 G/DL (3.4-5.0) L Globulin 4.5 g/dL Albumin/Globulin Ratio 0.2 (1.0-2.7) L Assessment/Plan Assessment/Plan Respiratory failure Healthcare associated PNA Polymicrobial Gram negative bacteremia and sepsis - UTI Paroxysmal atrial fibrillation/flutter Paroxysmal atrial ectopy 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 Dyslipidemia on high dose statin - now dose adjusted Dehydration/hypernatremia Severe protein-calorie malnutrition Multiple wounds Anemia - s/p tx Pleural effusion - s/p bilateral thorocentesis Full vent support; monitor ABG and review CXR Titrate beta blockade dose as tolerated by BP. Abx per ID Cardiac monitoring Statin dose adjusted Amiodarone at increased dose to maintain sinus rhythm. Diuresis based on daily assessments of volume status; therapeutic thorocentesis as needed Continue anticoagulation with caution due to bleeding risk Dylan Mak MD Sep 03, 2020 02:13
--- NOTE | 2020-09-03 02:42 | NUR ---
NURSE NOTES: Performed oral care, changed PICC line dressing. Tolerated well. No signs of acute distress noted. No change in status. Will continue to monitor.
[2020-09-03] MEDS: Metoclopramide 10mg/2ml Inj IVP SCH ×4 (03:22→22:09)
[2020-09-03 04:00] VITALS: BP 122/59
--- NOTE | 2020-09-03 05:13 | NUR ---
NURSE NOTES: Cleaned pt and changed wound dressings, linens, and gown. Tolerated well. Will continue plan of care. Will continue to monitor.
[2020-09-03] MEDS: Sodium Citrate 30ml ORAL SCH ×4 (05:28→23:40)
--- NOTE | 2020-09-03 07:17 | NUR ---
NURSE HAND-OFF REPORT: Important Events on Shift:[No acute events] Patient Status: [stable] Diet: [Vital AF 80ml/hr goal, currently at 65ml/hr] Pending Orders: [NA] Pending Results/Labs:[NA] Pending MD notification:[Weight gain, edematous, not tolerating feeding] Latest Vital Signs: Temperature 98.1 , Pulse 91 , B/P 122 /59 , Respiratory Rate 28 , O2 SAT 96 , Trach Collar, O2 Flow Rate 10.0 . Vital Sign Comment: [stable] EKG Rhythm: Sinus Rhythm Rhythm change?: N MD Notified?: Nadine Mak and Quita VALDEZ Response: Message left await call Latest Ramirez Fall Score: 70 Fall Risk: High Risk Safety Measures: Call light Within Reach, Bed Alarm Zone 1, Side Rails Side Rails x3, Bed position Low and Locked. Fall Precautions: Yellow Socks Patient Fall Education Report given to [SELIN Jacques].
--- NOTE | 2020-09-03 07:30 | NUR ---
NURSE NOTES: Received pt from SELIN Branch, pt is sleeping, pt has trach to ventilator AC 24 TV 500 PEEP 5 FIO2 40%, Pt is on continues heart monitoring. pt has g tube in place is working well. pt has intact PICC REBECCA D5W 125ml/hr is running well. pt has [place] cath in place is working well. Pt has rectal tube in place is working well. All needs attended, bed is locked and is in the lowest position, call light within easy reach. will continue to monitor.
[2020-09-03 08:00] VITALS: BP 114/58
--- NOTE | 2020-09-03 08:48 | NUR ---
RD ASSESSMENT & RECOMMENDATIONS SEE CARE ACTIVITY FOR COMPLETE ASSESSMENT DAILY ESTIMATED NEEDS: Needs based on Wounds, Critical care / 74.5kg 22-28 kcals/kg 3132-1028 total kcals 1.5-2 g protein/kg 111-149 g total protein 25-30 mL/kg 9278-7172 total fluid mLs NUTRITION DIAGNOSIS: * Swallowing difficulty R/T dysphagia, h/o craniotomy, respiratory failure as evidenced by pt on T-collar, GJ tube dependent. * Increased kcal/prot/micronutrients needs R/T wound healing as evidenced by pt admitted w/ multiple advanced wounds including full thickness wound x 7 and unstageable wounds x 2, refer to WC eval. CURRENT TF:Vital AF 1.2 @80ml/hr ENTERAL NUTRITION RECOMMENDATIONS: Vital AF 1.2 @ 65ml/hr x 24 hrs to provide 1560ml, 1872kcal, 117g prot, 1265ml free water * Lower goal rate to 65ml/hr x 24 hrs naheed w/ worsening renal fxn, +diarrhea and residuals -> meets 100% est kcal/prot needs * HOB over 30 degrees/ water flush 180ml q 6hrs without IVF ADDITIONAL RECOMMENDATIONS: * Calibrated bedscale wt * Wound Care: Con't Vit C 500mg BID, ZnSO4 220mg QD x 10 days add Stevie BID * Monitor lytes and renal fxn: creat trending up Monitor need for TF change to renal TF * Monitor BGs, need for NISS (good glycemic control) * Add probiotics for diarrhea
[2020-09-03] MEDS: levETIRAcetam 500mg/5ml Liquid GT SCH ×2 (09:12→20:40)
[2020-09-03] MEDS: Metoprolol Tartrate 100mg tab GT SCH (09:13)
[2020-09-03] MEDS: Ascorbic Acid 500mg tab ORAL SCH (09:13)
[2020-09-03] MEDS: Amiodarone 200mg tab GT SCH (09:13)
[2020-09-03] MEDS: Midodrine 10mg tab ORAL SCH ×3 (09:13→17:39)
[2020-09-03] MEDS: Dakin's 0.25% (Half Strength) 16oz TOPIC SCH (09:13)
--- NOTE | 2020-09-03 09:56 | NUR ---
CASE MANAGEMENT:REVIEW 09/03/20 SI: PNA. UTI. BACTEREMIA.PLEURAL EFFUSION 98.4 88 29 114/58 99% ON VENT SUPPORT W/40% FIO2 VIA TRACH NO LABS FOR TODAY IS: IVF@125/HR ZINC GT QD BICITRA GT Q6HRS LIPITOR GT QHS MIDODRINE GT TID AMIODARONE GT QD KEPPRA GT Q12 IV REGLAN Q6HRS LOPRESSOR GT Q12 : NOW ON STEP DOWN UNIT DCP: REFERRED TO JOVON FINCH PLAN: WEAN OFF VENT IF POSSIBLE THORACENTESIS
--- NOTE | 2020-09-03 10:24 | Pulmonology Progress Note ---
Subjective ROS Limited/Unobtainable: Yes Gastrointestinal/Abdominal: Reports: diarrhea, other - X 1 Allergies: Coded Allergies: No Known Allergies (Unverified , 11/02/19) All Systems: reviewed and negative except above Subjective CARE NOTED nonverbal on vent vitals ok anemia noted acid base better Objective Last 24 Hour Vital Signs Date Time Temp Pulse Resp B/P (MAP) Pulse Ox O2 Delivery O2 Flow Rate FiO2 09/03/20 09:13 88 114/58 09/03/20 08:00 40 09/03/20 08:00 98.4 88 29 114/58 (76) 99 09/03/20 08:00 Mechanical Ventilator 09/03/20 07:39 88 09/03/20 04:00 40 09/03/20 04:00 91 09/03/20 04:00 Mechanical Ventilator 09/03/20 04:00 98.1 91 28 122/59 (80) 96 09/03/20 03:30 104 27 40 09/03/20 00:00 Mechanical Ventilator 09/03/20 00:00 83 09/03/20 00:00 99.1 84 24 112/67 (82) 97 09/02/20 23:14 83 24 40 09/02/20 20:05 81 108/55 09/02/20 20:00 Mechanical Ventilator 09/02/20 20:00 78 09/02/20 20:00 98.2 81 24 108/55 (72) 97 09/02/20 20:00 40 09/02/20 19:30 70 26 40 09/02/20 16:00 Mechanical Ventilator 09/02/20 16:00 98.2 73 24 104/57 (73) 100 09/02/20 16:00 40 09/02/20 15:37 75 09/02/20 13:15 74 24 40 09/02/20 12:28 72 09/02/20 12:00 98.2 72 24 101/51 (68) 100 09/02/20 11:48 Mechanical Ventilator Intake and Output 09/02/20 09/03/20 19:00 07:00 Intake Total 2565 ml 1865 ml Output Total 1300 ml 1100 ml Balance 1265 ml 765 ml Free Water 330 ml IV Total 1375 ml 1125 ml Tube Feeding 860 ml 740 ml Output Urine Total 1100 ml 1000 ml Stool Total 200 ml 100 ml Objective WDWN NAD awake chronically ill moderate breath sounds bilaterally without rhonchi [id number] NABS nontender GT no CCE nonfocal weak wounds noted Current Medications Medications (Trade) Dose Ordered Sig/Clive Route PRN Reason Start Time Stop Time Status Last Admin Dose Admin Acetaminophen (Tylenol) 650 mg Q4H PRN GT Temp >100.5 08/18/20 21:15 09/17/20 21:14 08/27/20 15:39 Amiodarone HCl (Cordarone) 200 mg DAILY GT 08/24/20 09:00 10/28/20 17:59 09/03/20 09:13 Ascorbic Acid (Vitamin C) 500 mg DAILY ORAL 08/17/20 16:00 09/16/20 15:59 09/03/20 09:13 Atorvastatin Calcium (Lipitor) 10 mg BEDTIME ORAL 08/28/20 21:45 11/24/20 20:59 09/02/20 20:04 Chlorhexidine Gluconate (Jennifer-Hex 2%) 1 applic DAILY@2000 TOPIC 07/17/20 20:00 10/15/20 19:59 09/02/20 20:04 Dextrose 1,000 ml @ 125 mls/hr Q8H IV 09/02/20 14:15 10/02/20 14:14 09/03/20 05:28 Epoetin Tino (Epoetin Tino-EPBX(NON ESRD)) 2,000 unit TUE-TUE-TUE SUBQ 08/25/20 21:00 11/23/20 20:59 09/01/20 20:58 Epoetin Tino (Epoetin Tino-EPBX(NON ESRD)) 3,000 unit TUE-TUE-TUE SUBQ 08/25/20 21:00 11/23/20 20:59 09/01/20 20:58 Famotidine (Pepcid) 20 mg Q12HR GT 07/16/20 21:00 10/14/20 20:59 09/03/20 09:13 Finasteride (Proscar) 5 mg DAILY ORAL 07/15/20 09:00 10/13/20 08:59 09/03/20 09:13 Hydralazine HCl (Apresoline) 25 mg Q6H PRN GT SBP above 150 07/24/20 23:30 10/22/20 23:29 07/26/20 05:22 Levetiracetam (Keppra) 1,000 mg Q12HR GT 09/01/20 21:00 10/06/20 09:06 09/03/20 09:12 Loperamide HCl (Imodium) 4 mg Q4H PRN GT Diarrhea 08/31/20 22:00 09/30/20 21:59 08/31/20 22:02 Metoclopramide HCl (Reglan) 5 mg Q6H IVP 08/21/20 22:00 09/20/20 21:59 09/03/20 09:13 Metoprolol Tartrate (Lopressor) 100 mg Q12HR GT 09/01/20 21:00 11/11/20 08:59 09/03/20 09:13 Midodrine (Pro-Amatine) 10 mg THREE TIMES A DAY ORAL 08/28/20 18:00 11/26/20 17:59 09/03/20 09:13 Multivitamins (Multivitamins) 1 tab DAILY ORAL 08/17/20 16:00 09/16/20 15:59 09/03/20 09:13 Sodium Hypochlorite (Dakin's Half Strength) 1 applic DAILY TOPIC 08/19/20 16:30 09/18/20 16:29 09/03/20 09:13 Sodium Citrate (Bicitra) 30 ml EVERY 6 HOURS ORAL 08/30/20 18:00 09/29/20 17:59 09/03/20 05:28 Zinc Sulfate (Zinc Sulfate) 220 mg DAILY ORAL 09/11/20 09:00 12/10/20 08:59 Assessment/Plan Assessment/Plan Impression: Healthcare-associated pneumonia Acute respiratory failure with hypoxia Tracheostomy status Pleural effusion, left-recurrent s/p tap Decubitus ulcers ARF Anemia S/p previous Craniotomy, RCA occlusion, [place] ALCHOLIZER shunt Seizure history GERD, dysphagia s/p GJ tube h/o Hypertension h/o Atrial fibrillation Previous DVT and Pulmonary Embolism, hypernatremia bacteremia acidemia Plan events reviewed maintain vent and adjusted AC as needed on antibiotics pressors off ID noted CXR reviewed; repeated tap with improvement monitor HH for change J tube feeds monitor oxygen needs nebs as needed Wound care monitor acidemia bicitra orders reviewed and discussed impression, plan, and exam edited and reviewed in detail care discussed with Nikita Arreola MD Sep 03, 2020 10:24
--- NOTE | 2020-09-03 10:37 | Infectious Diseases Prog Note ---
"Assessment/Plan Assessment/Plan antibiotics : none A 1. pseudomonas | proteus pneumonia s/p rx COVID19 test is negative. 2. proteus | providencia sepsis s/p rx 3. pseudomonas UTI s/p rx 4. Hypertension. 5. Atrial fibrillation 6. respiratory failure s/p tracheostomy 7. pleural effusion s/p thoracentesis 8. renal failure P 1. continue off antibiotics 2. will follow up cultures Subjective ROS Limited/Unobtainable: Yes Allergies: Coded Allergies: No Known Allergies (Unverified , 11/02/19) Objective Last 24 Hour Vital Signs Date Time Temp Pulse Resp B/P (MAP) Pulse Ox O2 Delivery O2 Flow Rate FiO2 09/03/20 09:13 88 114/58 09/03/20 08:00 40 09/03/20 08:00 98.4 88 29 114/58 (76) 99 09/03/20 08:00 Mechanical Ventilator 09/03/20 07:39 88 09/03/20 04:00 40 09/03/20 04:00 91 09/03/20 04:00 Mechanical Ventilator 09/03/20 04:00 98.1 91 28 122/59 (80) 96 09/03/20 03:30 104 27 40 09/03/20 00:00 Mechanical Ventilator 09/03/20 00:00 83 09/03/20 00:00 99.1 84 24 112/67 (82) 97 09/02/20 23:14 83 24 40 09/02/20 20:05 81 108/55 09/02/20 20:00 Mechanical Ventilator 09/02/20 20:00 78 09/02/20 20:00 98.2 81 24 108/55 (72) 97 09/02/20 20:00 40 09/02/20 19:30 70 26 40 09/02/20 16:00 Mechanical Ventilator 09/02/20 16:00 98.2 73 24 104/57 (73) 100 09/02/20 16:00 40 09/02/20 15:37 75 09/02/20 13:15 74 24 40 09/02/20 12:28 72 09/02/20 12:00 98.2 72 24 101/51 (68) 100 09/02/20 11:48 Mechanical Ventilator Height (Feet): 5 Height (Inches): 4.00 Weight (Pounds): 171 HEENT: status post trach Respiratory/Chest: lungs clear Cardiovascular: normal rate, regular rhythm, no gallop/murmur Abdomen: soft, non tender, other - GT Extremities: other - + edema Current Medications Medications (Trade) Dose Ordered Sig/Clive Route PRN Reason Start Time Stop Time Status Last Admin Dose Admin Acetaminophen (Tylenol) 650 mg Q4H PRN GT Temp >100.5 08/18/20 21:15 09/17/20 21:14 08/27/20 15:39 Amiodarone HCl (Cordarone) 200 mg DAILY GT 08/24/20 09:00 10/28/20 17:59 09/03/20 09:13 Ascorbic Acid (Vitamin C) 500 mg DAILY ORAL 08/17/20 16:00 09/16/20 15:59 09/03/20 09:13 Atorvastatin Calcium (Lipitor) 10 mg BEDTIME ORAL 08/28/20 21:45 11/24/20 20:59 09/02/20 20:04 Chlorhexidine Gluconate (Jennifer-Hex 2%) 1 applic DAILY@2000 TOPIC 07/17/20 20:00 10/15/20 19:59 09/02/20 20:04 Dextrose 1,000 ml @ 125 mls/hr Q8H IV 09/02/20 14:15 10/02/20 14:14 09/03/20 05:28 Epoetin Tino (Epoetin Tino-EPBX(NON ESRD)) 2,000 unit TUE-TUE-TUE SUBQ 08/25/20 21:00 11/23/20 20:59 09/01/20 20:58 Epoetin Tino (Epoetin Tino-EPBX(NON ESRD)) 3,000 unit TUE-TUE-TUE SUBQ 08/25/20 21:00 11/23/20 20:59 09/01/20 20:58 Famotidine (Pepcid) 20 mg Q12HR GT 07/16/20 21:00 10/14/20 20:59 09/03/20 09:13 Finasteride (Proscar) 5 mg DAILY ORAL 07/15/20 09:00 10/13/20 08:59 09/03/20 09:13 Hydralazine HCl (Apresoline) 25 mg Q6H PRN GT SBP above 150 07/24/20 23:30 10/22/20 23:29 07/26/20 05:22 Levetiracetam (Keppra) 1,000 mg Q12HR GT 09/01/20 21:00 10/06/20 09:06 09/03/20 09:12 Loperamide HCl (Imodium) 4 mg Q4H PRN GT Diarrhea 08/31/20 22:00 09/30/20 21:59 08/31/20 22:02 Metoclopramide HCl (Reglan) 5 mg Q6H IVP 08/21/20 22:00 09/20/20 21:59 09/03/20 09:13 Metoprolol Tartrate (Lopressor) 100 mg Q12HR GT 09/01/20 21:00 11/11/20 08:59 09/03/20 09:13 Midodrine (Pro-Amatine) 10 mg THREE TIMES A DAY ORAL 08/28/20 18:00 11/26/20 17:59 09/03/20 09:13 Multivitamins (Multivitamins) 1 tab DAILY ORAL 08/17/20 16:00 09/16/20 15:59 09/03/20 09:13 Sodium Hypochlorite (Dakin's Half Strength) 1 applic DAILY TOPIC 08/19/20 16:30 09/18/20 16:29 09/03/20 09:13 Sodium Citrate (Bicitra) 30 ml EVERY 6 HOURS ORAL 08/30/20 18:00 09/29/20 17:59 09/03/20 05:28 Zinc Sulfate (Zinc Sulfate) 220 mg DAILY ORAL 09/11/20 09:00 12/10/20 08:59 Kristie Reina MD Sep 03, 2020 10:37"
[2020-09-03 11:49] VITALS: BP 98/58
--- NOTE | 2020-09-03 12:36 | Surgery Progress Note ---
Surgery Progress Note Subjective Additional Comments no acute events Objective Last 24 Hour Vital Signs Date Time Temp Pulse Resp B/P (MAP) Pulse Ox O2 Delivery O2 Flow Rate FiO2 09/03/20 12:15 86 09/03/20 12:00 40 09/03/20 11:55 Mechanical Ventilator 09/03/20 11:49 98.4 82 25 98/58 (71) 100 09/03/20 09:13 88 114/58 09/03/20 08:00 40 09/03/20 08:00 98.4 88 29 114/58 (76) 99 09/03/20 08:00 Mechanical Ventilator 09/03/20 07:40 88 25 40 09/03/20 07:39 88 09/03/20 04:00 40 09/03/20 04:00 91 09/03/20 04:00 Mechanical Ventilator 09/03/20 04:00 98.1 91 28 122/59 (80) 96 09/03/20 03:30 104 27 40 09/03/20 00:00 Mechanical Ventilator 09/03/20 00:00 83 09/03/20 00:00 99.1 84 24 112/67 (82) 97 09/02/20 23:14 83 24 40 09/02/20 20:05 81 108/55 09/02/20 20:00 Mechanical Ventilator 09/02/20 20:00 78 09/02/20 20:00 98.2 81 24 108/55 (72) 97 09/02/20 20:00 40 09/02/20 19:30 70 26 40 09/02/20 16:00 Mechanical Ventilator 09/02/20 16:00 98.2 73 24 104/57 (73) 100 09/02/20 16:00 40 09/02/20 15:37 75 09/02/20 13:15 74 24 40 I&O Intake and Output 09/02/20 09/03/20 19:00 07:00 Intake Total 2565 ml 1990 ml Output Total 1300 ml 1100 ml Balance 1265 ml 890 ml Free Water 330 ml IV Total 1375 ml 1250 ml Tube Feeding 860 ml 740 ml Output Urine Total 1100 ml 1000 ml Stool Total 200 ml 100 ml Dressing: saturated Cardiovascular: RSR Respiratory: decreased breath sounds Abdomen: soft, non-tender, present bowel sounds Extremities: no tenderness, no cyanosis Plan Problems: (1) Decubitus skin ulcer Assessment & Plan: Pt was discharged 08/15/20 and readmitted same day. 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 Small amt exudate that is of Sanguineous mixed with Formula noted from GT. Mild excoriation noted to Peristomal GT site. Full Thickness Sacral Pressure Injury (L)10.5cm x (W)8.3cm x (D)1.5cm, Undermining clockwise 9-2 by 1.3cm @10'oclock. Base of wound is 90% granular 10% necrotic. NO odor noted. Small amt serosanguineous exudate noted.Periwound is erythematous and indurated. No changes in skin temp noted. Full Thickness Pressure Injury Outer L Lower Quadrant of Buttocks.(L)5.5cm x (W )7cm x (D)1.5cm, Undermining clockwise 9-3 by 4.5cm @12o'clock, Tunneled area within base of wound by 5.5cm @ 1-2o'clock. Base of wound is 85% % moist and pink ,15% necrotic at base at undermined area of wound. Bone exposure noted. Small amt serosanguineous exudate noted. Periwound is erythematous and indurated. No odor noted. Full thickness Pressure Injury L Ischium(L)2cm x (W)0.9cm x (D)0.3cm. Base of wound is moist, and pink. Edges are adherent to base of wound. Periwound is maroon and indurated. NO changes in skin temp periwound. NO odor noted. Non-Blanchable erythema without induration noted to R Hip /R trochanteric.. Full Thickness Pressure Injury lateral L Tibia(L)21.5cm x (W)3.5cm x (D)0.2cm. Base of wound is 95% granular,5% necrosis along borders. Edges are adherent to base of wound . Moderate amt sanguineous exudate noted. No odor noted.Periwound skin colour is darker than is normal tone but without erythema or induration. Full thickness Pressure Injury L Heel extending into Plantar aspect of heel(L )8.7cm x (W)6.5cm x(D)0.6cm.Base of wound is 60% beefy granulation,40% necrotic. Bone is palpable. (+) Epibole at proximal borders of wound in close proximity with achilles. Small amt haemopurulent exudate noted. Wound is malodorous. Periwound is dusky and indurated. Full Thickness Pressure Injury Lateral L Foot (L)1.9cm x (W)3.4cm x (D)0.3cm, undermining clockwise 9-3 by 0.2cm @9o'clock. Base of wound is 10% necrotic 90% antonio. Wound is malodorous. Edges are macerate with scattered areas of necrosis along edges. Small amt haemopurulent exudate noted.Periwound is fluctuant and dusky. Full Thickness Pressure Injury distal/lateral L foot(L)1.3cm x (W)3.7cm x (D)0.2cm. Base of wound is 80% soft necrosis,20% moist and pink. edges are macerated. Wound is malodorous. Small amt brown exudate noted . Periwound is dusky and fluctuant. Unstageable Pressure injury dorsal L foot (L)1cm x (W)0.9cm. Base of wound is 100% necrotic. Edges are erythematous and macerated. Periwound without erythema,induration or fluctuance. Full thickness Pressure Injury R Heel including plantar aspect of heel (L)8.7cm x (W)6.5cm x (D)0.6cm. Base of wound is 60% beefy granulation,40% necrotic. Bone exposure at base of wound. Moderate amt haemopurulent exudate. Wound is malodorous. Proximal edges of wound within close proximity with achilles is rolled. Edges are otherwise macerated. Periwound is fluctuant and dusky. Full Thickness Pressure Injury distal/lateral R foot (L)0.5cm x (W)0.6cm. Base of wound is 100% fibrinous slough. Erythematous borders. Periwound without induration or fluctuance. Small amt serous exudate noted. Tx.Plan: Wash GT site with Soap and Water. Pat dry. Apply Moisture Barrier Paste around Gt Daily. Leave open to Air. Cleanse Sacral wound, L buttocks, and L Ischia wounds with Dakin's 0.25% Kristel. Loosely pack wounds with Dakin's moistened Kerlix.Apply Triad Paste periwound. Cover with Optifoam drsgs Daily and prn. Cleanse wound Lateral L Tibia with Dakin's o.25% Kristel. Rinse with Saline. Apply Promogran moistened with Saline. Apply Moisture Barrier Paste along borders. Cover with ABD Pads. Wrap with Kerlix every Mon-Wed-Fri (NOTE: Wound Nurse to Aplpy Promogran) Cleanse wounds L Foot with Dakin's 0.25% Kristel. Apply Dakin's moistened Gauze to each wound. Apply Triad Paste along Borders of each wound. Cover with ABD Pads and wrap with Kerlix Daily and prn. Cleanse R Heel wound with Dakin's 0.25% Kristel. Apply Dakin's Moistened Gauze to wound. Apply Triad Paste Periwound. Cover with ABD Pad. Wrap with Kerlix Daily and prn. Reposition at least every 2hours or as tolerated. Place Pillow Between Knees. Off-load heels with 2 Pillows. APM/TERRIE Mattress overlay. Sacral wound,L Buttocks, L Ischial wounds cleansed with Dakin's and each wound loosely packed with Dakin's moistened Kerlix.Moisture Barrier Paste applied to borders of each wound and each wound covered with Optifoam drsgs. Perianal area noted to be red and excoriated. Moisture Barrier Paste applied to affected area. Drsgs to L tibia, L Heel and R Heel noted to be saturated and malodorous. Both lower ext washed with Chlorhexidine soap prior to providing wound care.Base of wound lateral L Tibia beefy red. Edges are adherent with an area of 5% necrosis distally. Small amt sanguineous exudate No erythema or changes in skin temp periwound. Wound Later L Tibia cleansed with Saline. Promogran applied to base of wound.Moisture Barrier Paste applied along borders. Covered with ABD pad. Wrapped with Kerlix. R and L Heel wounds cleansed Dakin's 0.25% kristel. Dakin's moistened gauze applied to each wound Moisture Barrier Paste applied to borders of each wound and each wound covered with Abd Pads and each heel wrapped with Kerlix drsgs. Skin under tracheal collar assessed and no evidence of skin breakdown noted. Peristomal Gt site is resolving, Skin is moist but pink.No new skin concerns noted. ill appearing leg worsening would not tolerate amputation (2) Anemia Assessment & Plan: trend h/h prbc prn (3) UTI (urinary tract infection) (4) Pleural effusion, left Assessment & Plan: Ultrasound used to localize optimal puncture site. Sterile prepping and draping left chest. Local anesthesia with 1% lidocaine. Under real-time ultr asound guidance, puncture pleural space using thoracentesis needle. Stylet removed. Catheter placed to vacuum bottle suction. Total 1700 milliliters of fluid aspirated. Patient tolerated procedure well, without immediate complication. Findings: Followup sonography demonstrates small amount of residual pleural fluid. Impression: Successful ultrasound-guided thoracentesis, yielding 1700 milliliters of fluid Lungs: Hazy left lung attenuation could be due to consolidation, pulmonary edema; correlate with presentation. Retrocardiac atelectasis without or with consolidation. Pleural space: Small-moderate left pleural effusion with passive atelectasis. No pneumothorax. Heart: Unremarkable. No cardiomegaly. Mediastinum: Unremarkable. Bones/joints: No acute abnormality Tubes, lines and devices: Tracheostomy. Right upper extremity PICC tip in the mid SVC. IMPRESSION: 1. Tracheostomy. 2. Right upper extremity PICC tip in the mid SVC. 3. Small-moderate left pleural effusion with passive atelectasis. 4. Hazy left lung attenuation could be due to consolidation, pulmonary edema; correlate with presentation. 5. Retrocardiac atelectasis without or with consolidation. 6. Recommend CT chest with IV contrast to further characterize these findings. plan repeat thora (5) Malfunction of gastrostomy tube Assessment & Plan: DAILY ESTIMATED NEEDS: Needs based on Wounds, pulmonary/ 74.5kg 25-30 kcals/kg 8014-7237 total kcals 1.5-2 g protein/kg 111-149 g total protein 25-30 mL/kg 4938-1111 total fluid mLs NUTRITION DIAGNOSIS: * Swallowing difficulty R/T dysphagia, h/o craniotomy, respiratory failure as evidenced by pt on T-collar, GJ tube dependent. * Increased kcal/prot/micronutrients needs R/T wound healing as evidenced by pt admitted w/ multiple advanced wounds including full thickness wound x 7 and unstageable wounds x 2, refer to WC eval. CURRENT TF:Vital AF 1.2 @70ml/hr ENTERAL NUTRITION RECOMMENDATIONS: Vital AF 1.2 @ 65ml/hr x 24 hrs to provide 1560ml, 1872kcal, 117g prot, 1265ml free water * Lower goal rate to 65ml/hr x 24 hrs: meets 100% est kcal/prot needs * HOB over 30 degrees/ water flush 180ml q 6hrs without IVF ------ elemental TF formula of Vital AF not indicated, consider changing TF to Glucerna 1.2 @ 65ml/hr x 24 hrs + Prosource 1pkt TID to provide 1560ml, 1872kcal, 94g+ 33g prot, 1259ml free water ADDITIONAL RECOMMENDATIONS: * Calibrated bedscale wt * Wound Care: Con't Vit C 500mg BID, ZnSO4 220mg QD x 10 days add Stevie BID * Monitor lytes, replete as needed * DC D5 for improved BG control increase H2O flushes instead (Na now wnl, BUN elev) * Rec NISS (6) Acute respiratory failure with hypoxia (7) HCAP (healthcare-associated pneumonia) Deny Westfall Sep 03, 2020 12:36
[2020-09-03 16:00] VITALS: BP 102/56
--- NOTE | 2020-09-03 16:27 | NUR ---
NURSE NOTES: Dr Mak called back and is aware pt is getting SB to 43, MD will be here today. no new order received. will continue to close monitoring.
--- NOTE | 2020-09-03 19:30 | NUR ---
NURSE HAND-OFF REPORT: Important Events on Shift: Patient Status: Diet: Pending Orders: Pending Results/Labs: Pending MD notification: Latest Vital Signs: Temperature 98.4 , Pulse 79 , B/P 102 /56 , Respiratory Rate 25 , O2 SAT 99 , Trach Collar, O2 Flow Rate 10.0 . Vital Sign Comment: EKG Rhythm: Sinus Bradycardia Rhythm change?: Y Notified?: Y -Dr Aubree VALDEZ Response: Message left await call Latest Ramirez Fall Score: 70 Fall Risk: High Risk Safety Measures: Call light Within Reach, Bed Alarm Zone 1, Side Rails Side Rails x3, Bed position Low and Locked. Fall Precautions: Yellow Socks Patient Fall Education Report given to . Pt is awake and stable, no stress noted. Endorsed plan of care.
--- NOTE | 2020-09-03 19:35 | Nephrology Progress Note ---
Assessment/Plan Plan Elevated BUN + Creatinine due to CKD Subjective Subjective Obtunded Objective Objective Last 24 Hour Vital Signs Date Time Temp Pulse Resp B/P (MAP) Pulse Ox O2 Delivery O2 Flow Rate FiO2 09/03/20 19:15 79 25 40 09/03/20 16:00 Mechanical Ventilator 09/03/20 16:00 40 09/03/20 16:00 98.4 80 24 102/56 (71) 99 09/03/20 15:41 57 09/03/20 14:30 75 24 40 09/03/20 12:15 86 09/03/20 12:00 40 09/03/20 11:55 Mechanical Ventilator 09/03/20 11:49 98.4 82 25 98/58 (71) 100 09/03/20 11:00 85 24 40 09/03/20 09:13 88 114/58 09/03/20 08:00 40 09/03/20 08:00 98.4 88 29 114/58 (76) 99 09/03/20 08:00 Mechanical Ventilator 09/03/20 07:40 88 25 40 09/03/20 07:39 88 09/03/20 04:00 40 09/03/20 04:00 91 09/03/20 04:00 Mechanical Ventilator 09/03/20 04:00 98.1 91 28 122/59 (80) 96 09/03/20 03:30 104 27 40 09/03/20 00:00 Mechanical Ventilator 09/03/20 00:00 83 09/03/20 00:00 99.1 84 24 112/67 (82) 97 09/02/20 23:14 83 24 40 09/02/20 20:05 81 108/55 09/02/20 20:00 Mechanical Ventilator 09/02/20 20:00 78 09/02/20 20:00 98.2 81 24 108/55 (72) 97 09/02/20 20:00 40 Intake and Output 09/02/20 09/03/20 19:00 07:00 Intake Total 2565 ml 2060 ml Output Total 1300 ml 1100 ml Balance 1265 ml 960 ml Free Water 330 ml IV Total 1375 ml 1250 ml Tube Feeding 860 ml 810 ml Output Urine Total 1100 ml 1000 ml Stool Total 200 ml 100 ml Height (Feet): 5 Height (Inches): 4.00 Weight (Pounds): 171 Objective Trach clean CV RR Lungs B ronchi Abd SNT. BS + E contractures. Benjamin Quintero MD Sep 03, 2020 19:34
--- NOTE | 2020-09-03 19:54 | NUR ---
NURSE NOTES: Report received from SELIN Jacques. Observed pt lying in the bed, obtunded, awake, non-verbal. SR at this time noted. SB noted on previous shift. Shiley 4, AC 24, TV 500, FIO2 40%, PEEP 5, saturating at 98%. Gtube intact, running Vital AF at 75cc/hr, no residual noted, increased to 80cc/hr. F/C intact. Skin alterations noted. L UA double lumen noted, intact. Reposition done. Oral care given. Bed in the lowest position. Side rails up x3. Will continue to monitor.
[2020-09-03 20:00] VITALS: BP 117/67
[2020-09-03] MEDS ORDERED: NS 500ML ONE (20:08)
[2020-09-03] MEDS: Atorvastatin 20mg tab ORAL SCH (20:40)
[2020-09-03] MEDS: Dyna-Hex 2% Top Sol 2oz TOPIC SCH (20:40)
[2020-09-03] MEDS: Metoprolol Tartrate 50mg tab GT SCH (20:41)
[2020-09-03] MEDS: Epoetin Alfa-EPBX (NON ESRD) 2000 units/ml vial SUBQ SCH (20:41)
[2020-09-03] MEDS: Epoetin Alfa-EPBX (NON ESRD) 3000 units/ml vial SUBQ SCH (20:41)
--- NOTE | 2020-09-03 22:46 | Cardiology Progress Note ---
Subjective DATE OF SERVICE: Sep 03, 2020 Remains in sinus rhythm, but had bradycardia post Metoprolol dose today. PICC line access remains in placed s/p multiple thorocentesis episodes. On antimicrobials for positive blood, urine, and sputum cultures with multiple gram negative pathogen. No new bleeding, since back on anticoagulation now following GI clearance. Objective Last 24 Hour Vital Signs Date Time Temp Pulse Resp B/P (MAP) Pulse Ox O2 Delivery O2 Flow Rate FiO2 09/03/20 20:41 80 117/67 09/03/20 20:00 75 09/03/20 20:00 40 09/03/20 20:00 Mechanical Ventilator 09/03/20 20:00 99.1 80 28 117/67 (84) 98 09/03/20 19:15 79 25 40 09/03/20 16:00 Mechanical Ventilator 09/03/20 16:00 40 09/03/20 16:00 98.4 80 24 102/56 (71) 99 09/03/20 15:41 57 09/03/20 14:30 75 24 40 09/03/20 12:15 86 09/03/20 12:00 40 09/03/20 11:55 Mechanical Ventilator 09/03/20 11:49 98.4 82 25 98/58 (71) 100 09/03/20 11:00 85 24 40 09/03/20 09:13 88 114/58 09/03/20 08:00 40 09/03/20 08:00 98.4 88 29 114/58 (76) 99 09/03/20 08:00 Mechanical Ventilator 09/03/20 07:40 88 25 40 09/03/20 07:39 88 09/03/20 04:00 40 09/03/20 04:00 91 09/03/20 04:00 Mechanical Ventilator 09/03/20 04:00 98.1 91 28 122/59 (80) 96 09/03/20 03:30 104 27 40 09/03/20 00:00 Mechanical Ventilator 09/03/20 00:00 83 09/03/20 00:00 99.1 84 24 112/67 (82) 97 09/02/20 23:14 83 24 40 ROS: unchanged from 07/14/20 HEENT: Mechanically Ventilated, Thick Trach secretions RHYTHM: NSR, ST, PACs, Afib LUNGS: diminished breath sounds, bilateral rhonchi CARDIAC: normal S1 and S2, rapid rate, arrhythmia ABDOMEN: normal bowel sounds, soft, G-Tube intact EXTREMITIES: normal range of motion, non-tender, trace edema, other - withdrawn Assessment/Plan Assessment/Plan Bradycardia due to meds with underlying sinus node disease Respiratory failure Healthcare associated PNA Polymicrobial Gram negative bacteremia and sepsis - UTI Paroxysmal atrial fibrillation/flutter Paroxysmal atrial ectopy Hx 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 Dyslipidemia on high dose statin - now dose adjusted Dehydration/hypernatremia Severe protein-calorie malnutrition Multiple wounds Anemia - s/p tx Pleural effusion - s/p bilateral thorocentesis Full vent support; monitor ABG and review CXR Decrease beta ezekiel dose Abx per ID Cardiac monitoring Statin dose adjusted Amiodarone at increased dose to maintain sinus rhythm. Diuresis based on daily assessments of volume status; therapeutic thorocentesis as needed Continue anticoagulation with caution due to bleeding risk Dylan Mak MD Sep 03, 2020 22:46
--- NOTE | 2020-09-03 23:42 | General Progress Note ---
Subjective Allergies: Coded Allergies: No Known Allergies (Unverified , 11/02/19) Subjective seen earlier today no events overnight Objective Last 24 Hour Vital Signs Date Time Temp Pulse Resp B/P (MAP) Pulse Ox O2 Delivery O2 Flow Rate FiO2 09/03/20 23:08 75 25 40 09/03/20 20:41 80 117/67 09/03/20 20:00 75 09/03/20 20:00 40 09/03/20 20:00 Mechanical Ventilator 09/03/20 20:00 99.1 80 28 117/67 (84) 98 09/03/20 19:15 79 25 40 09/03/20 16:00 Mechanical Ventilator 09/03/20 16:00 40 09/03/20 16:00 98.4 80 24 102/56 (71) 99 09/03/20 15:41 57 09/03/20 14:30 75 24 40 09/03/20 12:15 86 09/03/20 12:00 40 09/03/20 11:55 Mechanical Ventilator 09/03/20 11:49 98.4 82 25 98/58 (71) 100 09/03/20 11:00 85 24 40 09/03/20 09:13 88 114/58 09/03/20 08:00 40 09/03/20 08:00 98.4 88 29 114/58 (76) 99 09/03/20 08:00 Mechanical Ventilator 09/03/20 07:40 88 25 40 09/03/20 07:39 88 09/03/20 04:00 40 09/03/20 04:00 91 09/03/20 04:00 Mechanical Ventilator 09/03/20 04:00 98.1 91 28 122/59 (80) 96 09/03/20 03:30 104 27 40 09/03/20 00:00 Mechanical Ventilator 09/03/20 00:00 83 09/03/20 00:00 99.1 84 24 112/67 (82) 97 Intake and Output 09/02/20 09/03/20 19:00 07:00 Intake Total 2565 ml 2060 ml Output Total 1300 ml 1100 ml Balance 1265 ml 960 ml Free Water 330 ml IV Total 1375 ml 1250 ml Tube Feeding 860 ml 810 ml Output Urine Total 1100 ml 1000 ml Stool Total 200 ml 100 ml Height (Feet): 5 Height (Inches): 4.00 Weight (Pounds): 171 Objective Eldely WM NCAT (+) trach , T tube Coarse BS RRR abd soft (+) GT (+) rectal tube diarrhea ext no edema Assessment/Plan Status: stable, progressing Assessment/Plan: Assessment - Abnormal LFT - ? sepsis, ? Amio, ? statin - UGIB - resolved - Anemia, s/p transfusion - hypotension - h/o PUD - resp failure, s/p trach - dysphagia, s/p PEG - atrial fibrillation - h/o DVT - hypernatremia - loose BM / rectal tube - C Diff (-) - decubitus ulcers - poor prognosis Recommendations - follow LFT - H2B BID indefinitely - vital AF 1.2 as tolerated - protein supplements - TID - MVI - Vitamin C - free water - follow H&H - monitor Akiko Yu MD Sep 03, 2020 23:42
[2020-09-04] VITALS: BP 124/61
--- NOTE | 2020-09-04 00:36 | NUR ---
NURSE NOTES: Pt lying in the bed, awake. SR noted. Tolerating current vent setting. No acute distress noted at this time. No residual from Gtube noted, Vital running at 80cc/hr at this time. Reposition done. Oral care given. Will continue to monitor.
[2020-09-04 04:00] VITALS: BP 129/67
[2020-09-04] MEDS: Metoclopramide 10mg/2ml Inj IVP SCH ×4 (04:13→20:54)
--- NOTE | 2020-09-04 05:10 | NUR ---
NURSE NOTES: No acute distress noted. Bed bath given. tejal lower ext dressing changed. Sacral dressing changed. Reposition done. Oral care given. will continue to monitor.
[2020-09-04] MEDS: Sodium Citrate 30ml ORAL SCH ×4 (05:32→23:34)
[2020-09-04 06:16] LABS: BASOPHILS % (AUTO) 0.6 % (0.0-2.0); EOSINOPHILS % (AUTO) 7.1 % (0.0-3.0); HEMATOCRIT 26.7 % (42.0-52.0); HEMOGLOBIN 8.1 G/DL (14.2-18.0); LYMPHOCYTES % (AUTO) 17.6 % (20.0-45.0); MEAN CORPUSCULAR VOLUME 92 FL (80-99); NEUTROPHILS % (AUTO) 68.8 % (45.0-75.0); PLATELET COUNT 254 K/UL (150-450); WHITE BLOOD COUNT 6.4 K/UL (4.8-10.8)
[2020-09-04 07:05] LABS: ANION GAP 10 mmol/L (5-15); BLOOD UREA NITROGEN 61 mg/dL (7-18); CALCIUM 6.8 MG/DL (8.5-10.1); CARBON DIOXIDE 19 MMOL/L (21-32); CHLORIDE 113 MMOL/L (98-107); CREATININE 1.1 MG/DL (0.55-1.30); SODIUM 142 MMOL/L (136-145)
--- NOTE | 2020-09-04 07:07 | NUR ---
NURSE HAND-OFF REPORT: Important Events on Shift: No acute distress noted. Soiled dressings changed. Patient Status: SR. Vital stable. Tolerating current vent setting. Diet: Vital at 80cc/hr. Pending Orders: [] Pending Results/Labs:[] Pending MD notification:[] Latest Vital Signs: Temperature 98.9 , Pulse 76 , B/P 129 /67 , Respiratory Rate 24 , O2 SAT 99 , Trach Collar, O2 Flow Rate 10.0 . Vital Sign Comment: [] EKG Rhythm: Sinus Rhythm Rhythm change?: N Notified?: Y -Dr Aubree VALDEZ Response: Message left await call Latest Ramirez Fall Score: 70 Fall Risk: High Risk Safety Measures: Call light Within Reach, Bed Alarm Zone 1, Side Rails Side Rails x3, Bed position Low and Locked. Fall Precautions: Yellow Socks Patient Fall Education Report given to SELIN Blackburn.
--- NOTE | 2020-09-04 07:48 | Pulmonology Progress Note ---
Subjective ROS Limited/Unobtainable: Yes Gastrointestinal/Abdominal: Reports: diarrhea, other - X 1 Allergies: Coded Allergies: No Known Allergies (Unverified , 11/02/19) All Systems: reviewed and negative except above Subjective CARE NOTED nonverbal on vent vitals ok anemia noted Objective Last 24 Hour Vital Signs Date Time Temp Pulse Resp B/P (MAP) Pulse Ox O2 Delivery O2 Flow Rate FiO2 09/04/20 04:00 Mechanical Ventilator 09/04/20 04:00 98.9 76 24 129/67 (87) 99 09/04/20 04:00 83 09/04/20 04:00 40 09/04/20 03:48 84 24 40 09/04/20 00:00 40 09/04/20 00:00 74 09/04/20 00:00 98.9 76 24 124/61 (82) 98 09/04/20 00:00 Mechanical Ventilator 09/03/20 23:08 75 25 40 09/03/20 20:41 80 117/67 09/03/20 20:00 75 09/03/20 20:00 40 09/03/20 20:00 Mechanical Ventilator 09/03/20 20:00 99.1 80 28 117/67 (84) 98 09/03/20 19:15 79 25 40 09/03/20 16:00 Mechanical Ventilator 09/03/20 16:00 40 09/03/20 16:00 98.4 80 24 102/56 (71) 99 09/03/20 15:41 57 09/03/20 14:30 75 24 40 09/03/20 12:15 86 09/03/20 12:00 40 09/03/20 11:55 Mechanical Ventilator 09/03/20 11:49 98.4 82 25 98/58 (71) 100 09/03/20 11:00 85 24 40 09/03/20 09:13 88 114/58 09/03/20 08:00 40 09/03/20 08:00 98.4 88 29 114/58 (76) 99 09/03/20 08:00 Mechanical Ventilator Intake and Output 09/03/20 09/04/20 19:00 07:00 Intake Total 2660 ml 1886.25 ml Output Total 875 ml 1200 ml Balance 1785 ml 686.25 ml Free Water 300 ml 150 ml IV Total 1500 ml 856.25 ml Tube Feeding 860 ml 880 ml Output Urine Total 775 ml 1200 ml Stool Total 100 ml Objective WDWN NAD awake chronically ill moderate breath sounds bilaterally without rhonchi [id number] NABS nontender GT no CCE nonfocal weak wounds noted Laboratory Tests 09/04/20 06:00: White Blood Count 6.4, Red Blood Count 2.90L, Hemoglobin 8.1L, Hematocrit 26.7L, Mean Corpuscular Volume 92, Mean Corpuscular Hemoglobin 28.1, Mean Corpuscular Hemoglobin Concent 30.5L, Red Cell Distribution Width 17.0H, Platelet Count 254, Mean Platelet Volume 5.3L, Neutrophils (%) (Auto) 68.8, Lymphocytes (%) (Auto) 17.6L, Monocytes (%) (Auto) 6.0, Eosinophils (%) (Auto) 7.1H, Basophils (%) (Auto) 0.6, Sodium Level 142, Potassium Level 4.0, Chloride Level 113H, Carbon Dioxide Level 19L, Anion Gap 10, Blood Urea Nitrogen 61H, Creatinine 1.1, Estimat Glomerular Filtration Rate > 60, Glucose Level 150H, Calcium Level 6.8L Current Medications Medications (Trade) Dose Ordered Sig/Clive Route PRN Reason Start Time Stop Time Status Last Admin Dose Admin Acetaminophen (Tylenol) 650 mg Q4H PRN GT Temp >100.5 08/18/20 21:15 09/17/20 21:14 08/27/20 15:39 Amiodarone HCl (Cordarone) 200 mg DAILY GT 08/24/20 09:00 10/28/20 17:59 09/03/20 09:13 Ascorbic Acid (Vitamin C) 500 mg DAILY ORAL 08/17/20 16:00 09/16/20 15:59 09/03/20 09:13 Atorvastatin Calcium (Lipitor) 10 mg BEDTIME ORAL 08/28/20 21:45 11/24/20 20:59 09/03/20 20:40 Chlorhexidine Gluconate (Jennifer-Hex 2%) 1 applic DAILY@2000 TOPIC 07/17/20 20:00 10/15/20 19:59 09/03/20 20:40 Dextrose 1,000 ml @ 125 mls/hr Q8H IV 09/02/20 14:15 10/02/20 14:14 09/04/20 05:32 Epoetin Tino (Epoetin Tino-EPBX(NON ESRD)) 2,000 unit SUBQ 08/25/20 21:00 11/23/20 20:59 09/03/20 20:41 Epoetin Tino (Epoetin Tino-EPBX(NON ESRD)) 3,000 unit SUBQ 08/25/20 21:00 11/23/20 20:59 09/03/20 20:41 Famotidine (Pepcid) 20 mg Q12HR GT 07/16/20 21:00 10/14/20 20:59 09/03/20 20:40 Finasteride (Proscar) 5 mg DAILY ORAL 07/15/20 09:00 10/13/20 08:59 09/03/20 09:13 Hydralazine HCl (Apresoline) 25 mg Q6H PRN GT SBP above 150 07/24/20 23:30 10/22/20 23:29 07/26/20 05:22 Levetiracetam (Keppra) 1,000 mg Q12HR GT 09/01/20 21:00 10/06/20 09:06 09/03/20 20:40 Loperamide HCl (Imodium) 4 mg Q4H PRN GT Diarrhea 08/31/20 22:00 09/30/20 21:59 08/31/20 22:02 Metoclopramide HCl (Reglan) 5 mg Q6H IVP 08/21/20 22:00 09/20/20 21:59 09/04/20 04:13 Metoprolol Tartrate (Lopressor) 50 mg Q12HR GT 09/03/20 21:00 11/11/20 08:59 09/03/20 20:41 Midodrine (Pro-Amatine) 10 mg THREE TIMES A DAY ORAL 08/28/20 18:00 11/26/20 17:59 09/03/20 17:39 Multivitamins (Multivitamins) 1 tab DAILY ORAL 08/17/20 16:00 09/16/20 15:59 09/03/20 09:13 Sodium Hypochlorite (Dakin's Half Strength) 1 applic DAILY TOPIC 08/19/20 16:30 09/18/20 16:29 09/03/20 09:13 Sodium Citrate (Bicitra) 30 ml EVERY 6 HOURS ORAL 08/30/20 18:00 09/29/20 17:59 09/04/20 05:32 Zinc Sulfate (Zinc Sulfate) 220 mg DAILY ORAL 09/11/20 09:00 12/10/20 08:59 Assessment/Plan Assessment/Plan Impression: Healthcare-associated pneumonia Acute respiratory failure with hypoxia Tracheostomy status Pleural effusion, left-recurrent s/p tap Decubitus ulcers ARF Anemia S/p previous Craniotomy, RCA occlusion, 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
[2020-09-04 08:00] VITALS: BP 142/68
[2020-09-04] MEDS: Midodrine 10mg tab ORAL SCH ×3 (10:15→18:08)
[2020-09-04] MEDS: Amiodarone 200mg tab GT SCH (10:17)
[2020-09-04] MEDS: Metoprolol Tartrate 50mg tab GT SCH ×2 (10:18→20:54)
[2020-09-04] MEDS: levETIRAcetam 500mg/5ml Liquid GT SCH ×2 (10:18→20:54)
[2020-09-04] MEDS: Ascorbic Acid 500mg tab ORAL SCH (10:19)
[2020-09-04] MEDS: Dakin's 0.25% (Half Strength) 16oz TOPIC SCH (10:19)
--- NOTE | 2020-09-04 10:23 | Surgery Progress Note ---
Surgery Progress Note Subjective Additional Comments lft's trending down no n/v ill appearing Objective Last 24 Hour Vital Signs Date Time Temp Pulse Resp B/P (MAP) Pulse Ox O2 Delivery O2 Flow Rate FiO2 09/04/20 10:18 70 142/68 09/04/20 04:00 Mechanical Ventilator 09/04/20 04:00 98.9 76 24 129/67 (87) 99 09/04/20 04:00 83 09/04/20 04:00 40 09/04/20 03:48 84 24 40 09/04/20 00:00 40 09/04/20 00:00 74 09/04/20 00:00 98.9 76 24 124/61 (82) 98 09/04/20 00:00 Mechanical Ventilator 09/03/20 23:08 75 25 40 09/03/20 20:41 80 117/67 09/03/20 20:00 75 09/03/20 20:00 40 09/03/20 20:00 Mechanical Ventilator 09/03/20 20:00 99.1 80 28 117/67 (84) 98 09/03/20 19:15 79 25 40 09/03/20 16:00 Mechanical Ventilator 09/03/20 16:00 40 09/03/20 16:00 98.4 80 24 102/56 (71) 99 09/03/20 15:41 57 09/03/20 14:30 75 24 40 09/03/20 12:15 86 09/03/20 12:00 40 09/03/20 11:55 Mechanical Ventilator 09/03/20 11:49 98.4 82 25 98/58 (71) 100 09/03/20 11:00 85 24 40 I&O Intake and Output 09/03/20 09/04/20 19:00 07:00 Intake Total 2660 ml 1886.25 ml Output Total 875 ml 1200 ml Balance 1785 ml 686.25 ml Free Water 300 ml 150 ml IV Total 1500 ml 856.25 ml Tube Feeding 860 ml 880 ml Output Urine Total 775 ml 1200 ml Stool Total 100 ml Dressing: other Wound: other Cardiovascular: RSR Respiratory: decreased breath sounds Abdomen: soft, non-tender, present bowel sounds, non-distended Extremities: edema, cyanosis, other Laboratory Tests Test 09/04/20 06:00 White Blood Count 6.4 K/UL (4.8-10.8) Red Blood Count 2.90 M/UL (4.70-6.10) L Hemoglobin 8.1 G/DL (14.2-18.0) L Hematocrit 26.7 % (42.0-52.0) L Mean Corpuscular Volume 92 FL (80-99) Mean Corpuscular Hemoglobin 28.1 PG (27.0-31.0) Mean Corpuscular Hemoglobin Concent 30.5 G/DL (32.0-36.0) L Red Cell Distribution Width 17.0 % (11.6-14.8) H Platelet Count 254 K/UL (150-450) Mean Platelet Volume 5.3 FL (6.5-10.1) L Neutrophils (%) (Auto) 68.8 % (45.0-75.0) Lymphocytes (%) (Auto) 17.6 % (20.0-45.0) L Monocytes (%) (Auto) 6.0 % (1.0-10.0) Eosinophils (%) (Auto) 7.1 % (0.0-3.0) H Basophils (%) (Auto) 0.6 % (0.0-2.0) Sodium Level 142 MMOL/L (136-145) Potassium Level 4.0 MMOL/L (3.5-5.1) Chloride Level 113 MMOL/L (98-107) H Carbon Dioxide Level 19 MMOL/L (21-32) L Anion Gap 10 mmol/L (5-15) Blood Urea Nitrogen 61 mg/dL (7-18) H Creatinine 1.1 MG/DL (0.55-1.30) Estimat Glomerular Filtration Rate > 60 mL/min (>60) Glucose Level 150 MG/DL (74-106) H Calcium Level 6.8 MG/DL (8.5-10.1) L Plan Problems: (1) Decubitus skin ulcer Assessment & Plan: Pt was discharged 08/15/20 and readmitted same day. 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 Small amt exudate that is of Sanguineous mixed with Formula noted from GT. Mild excoriation noted to Peristomal GT site. Full Thickness Sacral Pressure Injury (L)10.5cm x (W)8.3cm x (D)1.5cm, Undermining clockwise 9-2 by 1.3cm @10'oclock. Base of wound is 90% granular 10% necrotic. NO odor noted. Small amt serosanguineous exudate noted.Periwound is erythematous and indurated. No changes in skin temp noted. Full Thickness Pressure Injury Outer L Lower Quadrant of Buttocks.(L)5.5cm x (W)7cm x (D)1.5cm, Undermining clockwise 9-3 by 4.5cm @12o'clock, Tunneled area within base of wound by 5.5cm @ 1-2o'clock. Base of wound is 85% % moist and pink ,15% necrotic at base at undermined area of wound. Bone exposure noted. Small amt serosanguineous exudate noted. Periwound is erythematous and indurated. No odor noted. Full thickness Pressure Injury L Ischium(L)2cm x (W)0.9cm x (D)0.3cm. Base of wound is moist, and pink. Edges are adherent to base of wound. Periwound is maroon and indurated. NO changes in skin temp periwound. NO odor noted. Non-Blanchable erythema without induration noted to R Hip /R trochanteric.. Full Thickness Pressure Injury lateral L Tibia(L)21.5cm x (W)3.5cm x (D)0.2cm. Base of wound is 95% granular,5% necrosis along borders. Edges are adherent to base of wound . Moderate amt sanguineous exudate noted. No odor noted.Periwound skin colour is darker than is normal tone but without erythema or induration. Full thickness Pressure Injury L Heel extending into Plantar aspect of heel(L)8.7cm x (W)6.5cm x(D)0.6cm.Base of wound is 60% beefy granulation,40% necrotic. Bone is palpable. (+) Epibole at proximal borders of wound in close proximity with achilles. Small amt haemopurulent exudate noted. Wound is malodorous. Periwound is dusky and indurated. Full Thickness Pressure Injury Lateral L Foot (L)1.9cm x (W)3.4cm x (D)0.3cm, undermining clockwise 9-3 by 0.2cm @9o'clock. Base of wound is 10% necrotic 90% antonio. Wound is malodorous. Edges are macerate with scattered areas of necrosis along edges. Small amt haemopurulent exudate noted.Periwound is fluctuant and dusky. Full Thickness Pressure Injury distal/lateral L foot(L)1.3cm x (W)3.7cm x (D)0.2cm. Base of wound is 80% soft necrosis,20% moist and pink. edges are macerated. Wound is malodorous. Small amt brown exudate noted . Periwound is dusky and fluctuant. Unstageable Pressure injury dorsal L foot (L)1cm x (W)0.9cm. Base of wound is 100% necrotic. Edges are erythematous and macerated. Periwound without erythema,induration or fluctuance. Full thickness Pressure Injury R Heel including plantar aspect of heel (L)8.7cm x (W)6.5cm x (D)0.6cm. Base of wound is 60% beefy granulation,40% necrotic. Bone exposure at base of wound. Moderate amt haemopurulent exudate. Wound is malodorous. Proximal edges of wound within close proximity with achilles is rolled. Edges are otherwise macerated. Periwound is fluctuant and dusky. Full Thickness Pressure Injury distal/lateral R foot (L)0.5cm x (W)0.6cm. Base of wound is 100% fibrinous slough. Erythematous borders. Periwound without induration or fluctuance. Small amt serous exudate noted. Tx.Plan: Wash GT site with Soap and Water. Pat dry. Apply Moisture Barrier Paste around Gt Daily. Leave open to Air. Cleanse Sacral wound, L buttocks, and L Ischia wounds with Dakin's 0.25% Kristel. Loosely pack wounds with Dakin's moistened Kerlix.Apply Triad Paste periwound. Cover with Optifoam drsgs Daily and prn. Cleanse wound Lateral L Tibia with Dakin's o.25% Kristel. Rinse with Saline. Apply Promogran moistened with Saline. Apply Moisture Barrier Paste along borders. Cover with ABD Pads. Wrap with Kerlix every Mon-Wed-Fri (NOTE: Wound Nurse to Aplpy Promogran) Cleanse wounds L Foot with Dakin's 0.25% Kristel. Apply Dakin's moistened Gauze to each wound. Apply Triad Paste along Borders of each wound. Cover with ABD Pads and wrap with Kerlix Daily and prn. Cleanse R Heel wound with Dakin's 0.25% Kristel. Apply Dakin's Moistened Gauze to wound. Apply Triad Paste Periwound. Cover with ABD Pad. Wrap with Kerlix Daily and prn. Reposition at least every 2hours or as tolerated. Place Pillow Between Knees. Off-load heels with 2 Pillows. APM/TERRIE Mattress overlay. Sacral wound,L Buttocks, L Ischial wounds cleansed with Dakin's and each wound loosely packed with Dakin's moistened Kerlix.Moisture Barrier Paste applied to borders of each wound and each wound covered with Optifoam drsgs. Perianal area noted to be red and excoriated. Moisture Barrier Paste applied to affected area. Drsgs to L tibia, L Heel and R Heel noted to be saturated and malodorous. Both lower ext washed with Chlorhexidine soap prior to providing wound care.Base of wound lateral L Tibia beefy red. Edges are adherent with an area of 5% necrosis distally. Small amt sanguineous exudate No erythema or changes in skin temp periwound. Wound Later L Tibia cleansed with Saline. Promogran applied to base of wound.Moisture Barrier Paste applied along borders. Covered with ABD pad. W rapped with Kerlix. R and L Heel wounds cleansed Dakin's 0.25% kristel. Dakin's moistened gauze applied to each wound Moisture Barrier Paste applied to borders of each wound and each wound covered with Abd Pads and each heel wrapped with Kerlix drsgs. Skin under tracheal collar assessed and no evidence of skin breakdown noted. Peristomal Gt site is resolving, Skin is moist but pink.No new skin concerns noted. ill appearing leg worsening would not tolerate amputation (2) Anemia Assessment & Plan: trend h/h prbc prn (3) UTI (urinary tract infection) (4) Pleural effusion, left Assessment & Plan: Ultrasound used to localize optimal puncture site. Sterile prepping and draping left chest. Local anesthesia with 1% lidocaine. Under real-time ultrasound guidance, puncture pleural space using thoracentesis needle. Stylet removed. Catheter placed to vacuum bottle suction. Total 1700 milliliters of fluid aspirated. Patient tolerated procedure well, without immediate complication. Findings: Followup sonography demonstrates small amount of residual pleural fl uid. Impression: Successful ultrasound-guided thoracentesis, yielding 1700 milliliters of fluid Lungs: Hazy left lung attenuation could be due to consolidation, pulmonary edema; correlate with presentation. Retrocardiac atelectasis without or with consolidation. Pleural space: Small-moderate left pleural effusion with passive atelectasis. No pneumothorax. Heart: Unremarkable. No cardiomegaly. Mediastinum: Unremarkable. Bones/joints: No acute abnormality Tubes, lines and devices: Tracheostomy. Right upper extremity PICC tip in the mid SVC. IMPRESSION: 1. Tracheostomy. 2. Right upper extremity PICC tip in the mid SVC. 3. Small-moderate left pleural effusion with passive atelectasis. 4. Hazy left lung attenuation could be due to consolidation, pulmonary edema; correlate with presentation. 5. Retrocardiac atelectasis without or with consolidation. 6. Recommend CT chest with IV contrast to further characterize these findings. plan repeat thora (5) Malfunction of gastrostomy tube Assessment & Plan: DAILY ESTIMATED NEEDS: Needs based on Wounds, pulmonary/ 74.5kg 25-30 kcals/kg 8277-4571 total kcals 1.5-2 g protein/kg 111-149 g total protein 25-30 mL/kg 2837-5126 total fluid mLs NUTRITION DIAGNOSIS: * Swallowing difficulty R/T dysphagia, h/o craniotomy, respiratory failure as evidenced by pt on T-collar, GJ tube dependent. * Increased kcal/prot/micronutrients needs R/T wound healing as evidenced by pt admitted w/ multiple advanced wounds including full thickness wound x 7 and unstageable wounds x 2, refer to WC eval. CURRENT TF:Vital AF 1.2 @70ml/hr ENTERAL NUTRITION RECOMMENDATIONS: Vital AF 1.2 @ 65ml/hr x 24 hrs to provide 1560ml, 1872kcal, 117g prot, 1265ml free water * Lower goal rate to 65ml/hr x 24 hrs: meets 100% est kcal/prot needs * HOB over 30 degrees/ water flush 180ml q 6hrs without IVF ------ elemental TF formula of Vital AF not indicated, consider changing TF to Glucerna 1.2 @ 65ml/hr x 24 hrs + Prosource 1pkt TID to provide 1560ml, 1872kcal, 94g+ 33g prot, 1259ml free water ADDITIONAL RECOMMENDATIONS: * Calibrated bedscale wt * Wound Care: Con't Vit C 500mg BID, ZnSO4 220mg QD x 10 days add Stevie BID * Monitor lytes, replete as needed * DC D5 for improved BG control increase H2O flushes instead (Na now wnl, BUN elev) * Rec NISS (6) Acute respiratory failure with hypoxia (7) HCAP (healthcare-associated pneumonia) Deny Westfall Sep 04, 2020 10:23
[2020-09-04 12:00] VITALS: BP 137/77
--- NOTE | 2020-09-04 12:42 | Infectious Diseases Prog Note ---
Assessment/Plan Assessment/Plan A: 1. Pseudomonas & Proteus pneumonia. treated 2. Providencia & Proteus sepsis 3. Hypertension. 4. Atrial fibrillation. 5. anemia 6. S/p tracheostomy 7. s/p GT 8. Left pleural effusion, recurrent 9. Bacteremia with Staph epidermidis 10. ? PICC line infection, line was changed 11. Pseudomonas bacteriuria 12. Pressure ulcers 13. Acute renal failure 14. GI bleeding PLAN: 1. Observe off of antibiotic 2. Wound care Subjective ROS Limited/Unobtainable: Yes Allergies: Coded Allergies: No Known Allergies (Unverified , 11/02/19) Objective Last 24 Hour Vital Signs Date Time Temp Pulse Resp B/P (MAP) Pulse Ox O2 Delivery O2 Flow Rate FiO2 09/04/20 10:18 70 142/68 09/04/20 04:00 Mechanical Ventilator 09/04/20 04:00 98.9 76 24 129/67 (87) 99 09/04/20 04:00 83 09/04/20 04:00 40 09/04/20 03:48 84 24 40 09/04/20 00:00 40 09/04/20 00:00 74 09/04/20 00:00 98.9 76 24 124/61 (82) 98 09/04/20 00:00 Mechanical Ventilator 09/03/20 23:08 75 25 40 09/03/20 20:41 80 117/67 09/03/20 20:00 75 09/03/20 20:00 40 09/03/20 20:00 Mechanical Ventilator 09/03/20 20:00 99.1 80 28 117/67 (84) 98 09/03/20 19:15 79 25 40 09/03/20 16:00 Mechanical Ventilator 09/03/20 16:00 40 09/03/20 16:00 98.4 80 24 102/56 (71) 99 09/03/20 15:41 57 09/03/20 14:30 75 24 40 Height (Feet): 5 Height (Inches): 4.00 Weight (Pounds): 171 HEENT: status post trach Respiratory/Chest: lungs clear, other - on ventilator Cardiovascular: normal rate, other - left arm PICC line Abdomen: soft, non tender, other - GT & rectal tube Extremities: other - generalized edema Neurologic/Psychiatric: aphasia, other - opens eyes Laboratory Tests Test 09/04/20 06:00 White Blood Count 6.4 K/UL (4.8-10.8) Red Blood Count 2.90 M/UL (4.70-6.10) L Hemoglobin 8.1 G/DL (14.2-18.0) L Hematocrit 26.7 % (42.0-52.0) L Mean Corpuscular Volume 92 FL (80-99) Mean Corpuscular Hemoglobin 28.1 PG (27.0-31.0) Mean Corpuscular Hemoglobin Concent 30.5 G/DL (32.0-36.0) L Red Cell Distribution Width 17.0 % (11.6-14.8) H Platelet Count 254 K/UL (150-450) Mean Platelet Volume 5.3 FL (6.5-10.1) L Neutrophils (%) (Auto) 68.8 % (45.0-75.0) Lymphocytes (%) (Auto) 17.6 % (20.0-45.0) L Monocytes (%) (Auto) 6.0 % (1.0-10.0) Eosinophils (%) (Auto) 7.1 % (0.0-3.0) H Basophils (%) (Auto) 0.6 % (0.0-2.0) Sodium Level 142 MMOL/L (136-145) Potassium Level 4.0 MMOL/L (3.5-5.1) Chloride Level 113 MMOL/L (98-107) H Carbon Dioxide Level 19 MMOL/L (21-32) L Anion Gap 10 mmol/L (5-15) Blood Urea Nitrogen 61 mg/dL (7-18) H Creatinine 1.1 MG/DL (0.55-1.30) Estimat Glomerular Filtration Rate > 60 mL/min (>60) Glucose Level 150 MG/DL (74-106) H Calcium Level 6.8 MG/DL (8.5-10.1) L Current Medications Medications (Trade) Dose Ordered Sig/Clive Route PRN Reason Start Time Stop Time Status Last Admin Dose Admin Acetaminophen (Tylenol) 650 mg Q4H PRN GT Temp >100.5 08/18/20 21:15 09/17/20 21:14 08/27/20 15:39 Amiodarone HCl (Cordarone) 200 mg DAILY GT 08/24/20 09:00 10/28/20 17:59 09/04/20 10:17 Ascorbic Acid (Vitamin C) 500 mg DAILY ORAL 08/17/20 16:00 09/16/20 15:59 09/04/20 10:19 Atorvastatin Calcium (Lipitor) 10 mg BEDTIME ORAL 08/28/20 21:45 11/24/20 20:59 09/03/20 20:40 Chlorhexidine Gluconate (Jennifer-Hex 2%) 1 applic DAILY@2000 TOPIC 07/17/20 20:00 10/15/20 19:59 09/03/20 20:40 Dextrose 1,000 ml @ 125 mls/hr Q8H IV 09/02/20 14:15 10/02/20 14:14 09/04/20 10:20 Epoetin Tino (Epoetin Tino-EPBX(NON ESRD)) 2,000 unit TUE- SUBQ 08/25/20 21:00 11/23/20 20:59 09/03/20 20:41 Epoetin Tino (Epoetin Tino-EPBX(NON ESRD)) 3,000 unit TUE- SUBQ 08/25/20 21:00 11/23/20 20:59 09/03/20 20:41 Famotidine (Pepcid) 20 mg Q12HR GT 07/16/20 21:00 10/14/20 20:59 09/04/20 10:17 Finasteride (Proscar) 5 mg DAILY ORAL 07/15/20 09:00 10/13/20 08:59 09/04/20 10:19 Hydralazine HCl (Apresoline) 25 mg Q6H PRN GT SBP above 150 07/24/20 23:30 10/22/20 23:29 07/26/20 05:22 Levetiracetam (Keppra) 1,000 mg Q12HR GT 09/01/20 21:00 10/06/20 09:06 09/04/20 10:18 Loperamide HCl (Imodium) 4 mg Q4H PRN GT Diarrhea 08/31/20 22:00 09/30/20 21:59 08/31/20 22:02 Metoclopramide HCl (Reglan) 5 mg Q6H IVP 08/21/20 22:00 09/20/20 21:59 09/04/20 10:17 Metoprolol Tartrate (Lopressor) 50 mg Q12HR GT 09/03/20 21:00 11/11/20 08:59 09/04/20 10:18 Midodrine (Pro-Amatine) 10 mg THREE TIMES A DAY ORAL 08/28/20 18:00 11/26/20 17:59 09/04/20 10:15 Multivitamins (Multivitamins) 1 tab DAILY ORAL 08/17/20 16:00 09/16/20 15:59 09/04/20 10:17 Sodium Hypochlorite (Dakin's Half Strength) 1 applic DAILY TOPIC 08/19/20 16:30 09/18/20 16:29 09/04/20 10:19 Sodium Citrate (Bicitra) 30 ml EVERY 6 HOURS ORAL 08/30/20 18:00 09/29/20 17:59 09/04/20 05:32 Zinc Sulfate (Zinc Sulfate) 220 mg DAILY ORAL 09/11/20 09:00 12/10/20 08:59 Steve eNlson MD Sep 04, 2020 12:41
--- NOTE | 2020-09-04 14:00 | NUR ---
NURSE NOTES: Received report RN Bere Prieto,,patient on ventilator,no distress,head elevated,with valles,rectal tube,suctioned trache oral care done
--- NOTE | 2020-09-04 15:08 | NUR ---
NURSE NOTES: Notified Dr. Nelson patient electrolytes today,very swollen,anasarca,with G tube feeding and IV fluids,per order discontinue IV fluids-done,
[2020-09-04 16:00] VITALS: BP 121/56
[2020-09-04] MEDS ORDERED: NS 500ML ONE (18:24)
--- NOTE | 2020-09-04 19:18 | NUR ---
Report given to SELIN Rivera,patient not in distress on ventilator 30% FIO2,G tube feeding,valles catheter,rectal tube.head elevated,aspiration precaution,padded side rails-seizure precaution
--- NOTE | 2020-09-04 19:20 | NUR ---
NURSE NOTES: Received patient from FREDRICK Boles under the care of Dr. Devlin for the admitting dx of PNA. Noted NKA and full code status. Contact isolation (for multiple organisms) and seizure precautions observed and maintained at all times. Patient noted to be obtunded with eyes open, no tracking. Tolerating Vent settings (A-C24 TV-500 FiO2-30% PEEP-5) well with no acute distress noted at this time. Will continue to monitor.
[2020-09-04 20:00] VITALS: BP 118/55
[2020-09-04] MEDS: Dyna-Hex 2% Top Sol 2oz TOPIC SCH (20:00)
--- NOTE | 2020-09-04 20:20 | Nephrology Progress Note ---
Assessment/Plan Plan Elevated BUN + Creatinine due to CKD Subjective Subjective Obtunded Objective Objective Last 24 Hour Vital Signs Date Time Temp Pulse Resp B/P (MAP) Pulse Ox O2 Delivery O2 Flow Rate FiO2 09/04/20 19:47 72 24 30 09/04/20 16:00 74 09/04/20 16:00 30 09/04/20 16:00 Mechanical Ventilator 09/04/20 16:00 97.3 78 24 121/56 (77) 95 09/04/20 15:38 71 24 30 09/04/20 13:41 84 24 99 Mechanical Ventilator 35 09/04/20 12:00 Mechanical Ventilator 09/04/20 12:00 40 09/04/20 12:00 98.1 72 24 137/77 (97) 95 09/04/20 11:33 68 09/04/20 11:14 78 24 40 09/04/20 10:18 70 142/68 09/04/20 08:00 98.4 91 28 142/68 (92) 96 09/04/20 08:00 40 09/04/20 08:00 Mechanical Ventilator 09/04/20 07:26 86 09/04/20 07:20 81 24 40 09/04/20 04:00 Mechanical Ventilator 09/04/20 04:00 98.9 76 24 129/67 (87) 99 09/04/20 04:00 83 09/04/20 04:00 40 09/04/20 03:48 84 24 40 09/04/20 00:00 40 09/04/20 00:00 74 09/04/20 00:00 98.9 76 24 124/61 (82) 98 09/04/20 00:00 Mechanical Ventilator 09/03/20 23:08 75 25 40 09/03/20 20:41 80 117/67 Intake and Output 09/03/20 09/04/20 19:00 07:00 Intake Total 2660 ml 2091.25 ml Output Total 875 ml 1200 ml Balance 1785 ml 891.25 ml Free Water 300 ml 150 ml IV Total 1500 ml 981.25 ml Tube Feeding 860 ml 960 ml Output Urine Total 775 ml 1200 ml Stool Total 100 ml Laboratory Tests 09/04/20 06:00: White Blood Count 6.4, Red Blood Count 2.90L, Hemoglobin 8.1L, Hematocrit 26.7L, Mean Corpuscular Volume 92, Mean Corpuscular Hemoglobin 28.1, Mean Corpuscular Hemoglobin Concent 30.5L, Red Cell Distribution Width 17.0H, Platelet Count 254, Mean Platelet Volume 5.3L, Neutrophils (%) (Auto) 68.8, Lymphocytes (%) (Auto) 17.6L, Monocytes (%) (Auto) 6.0, Eosinophils (%) (Auto) 7.1H, Basophils (%) (Auto) 0.6, Sodium Level 142, Potassium Level 4.0, Chloride Level 113H, Carbon Dioxide Level 19L, Anion Gap 10, Blood Urea Nitrogen 61H, Creatinine 1.1, Estimat Glomerular Filtration Rate > 60, Glucose Level 150H, Calcium Level 6.8L Height (Feet): 5 Height (Inches): 4.00 Weight (Pounds): 171 Objective Trach clean CV RR Lungs B ronchi Abd SNT. BS + E contractures. Benjamin Quintero MD Sep 04, 2020 20:19
--- NOTE | 2020-09-04 20:34 | General Progress Note ---
Subjective Allergies: Coded Allergies: No Known Allergies (Unverified , 11/02/19) Subjective seen earlier today no events overnight Objective Last 24 Hour Vital Signs Date Time Temp Pulse Resp B/P (MAP) Pulse Ox O2 Delivery O2 Flow Rate FiO2 09/04/20 19:47 72 24 30 09/04/20 16:00 74 09/04/20 16:00 30 09/04/20 16:00 Mechanical Ventilator 09/04/20 16:00 97.3 78 24 121/56 (77) 95 09/04/20 15:38 71 24 30 09/04/20 13:41 84 24 99 Mechanical Ventilator 35 09/04/20 12:00 Mechanical Ventilator 09/04/20 12:00 40 09/04/20 12:00 98.1 72 24 137/77 (97) 95 09/04/20 11:33 68 09/04/20 11:14 78 24 40 09/04/20 10:18 70 142/68 09/04/20 08:00 98.4 91 28 142/68 (92) 96 09/04/20 08:00 40 09/04/20 08:00 Mechanical Ventilator 09/04/20 07:26 86 09/04/20 07:20 81 24 40 09/04/20 04:00 Mechanical Ventilator 09/04/20 04:00 98.9 76 24 129/67 (87) 99 09/04/20 04:00 83 09/04/20 04:00 40 09/04/20 03:48 84 24 40 09/04/20 00:00 40 09/04/20 00:00 74 09/04/20 00:00 98.9 76 24 124/61 (82) 98 09/04/20 00:00 Mechanical Ventilator 09/03/20 23:08 75 25 40 09/03/20 20:41 80 117/67 Intake and Output 09/03/20 09/04/20 19:00 07:00 Intake Total 2660 ml 2091.25 ml Output Total 875 ml 1200 ml Balance 1785 ml 891.25 ml Free Water 300 ml 150 ml IV Total 1500 ml 981.25 ml Tube Feeding 860 ml 960 ml Output Urine Total 775 ml 1200 ml Stool Total 100 ml Laboratory Tests 09/04/20 06:00: White Blood Count 6.4, Red Blood Count 2.90L, Hemoglobin 8.1L, Hematocrit 26.7L, Mean Corpuscular Volume 92, Mean Corpuscular Hemoglobin 28.1, Mean Corpuscular Hemoglobin Concent 30.5L, Red Cell Distribution Width 17.0H, Platelet Count 254, Mean Platelet Volume 5.3L, Neutrophils (%) (Auto) 68.8, Lymphocytes (%) (Auto) 17.6L, Monocytes (%) (Auto) 6.0, Eosinophils (%) (Auto) 7.1H, Basophils (%) (Auto) 0.6, Sodium Level 142, Potassium Level 4.0, Chloride Level 113H, Carbon Dioxide Level 19L, Anion Gap 10, Blood Urea Nitrogen 61H, Creatinine 1.1, Estimat Glomerular Filtration Rate > 60, Glucose Level 150H, Calcium Level 6.8L Height (Feet): 5 Height (Inches): 4.00 Weight (Pounds): 171 Objective Eldely WM NCAT (+) trach , T tube Coarse BS RRR abd soft (+) GT (+) rectal tube diarrhea ext no edema Assessment/Plan Status: stable, progressing Assessment/Plan: Assessment - Abnormal LFT - ? sepsis, ? Amio, ? statin - UGIB - resolved - Anemia, s/p transfusion - h/o PUD - resp failure, s/p trach - dysphagia, s/p PEG - atrial fibrillation - h/o DVT - loose BM / rectal tube - C Diff (-) - decubitus ulcers - poor prognosis Recommendations - follow LFT - H2B BID indefinitely - vital AF 1.2 as tolerated - protein supplements - TID - MVI - Vitamin C - free water - follow H&H - monitor Akiko Yu MD Sep 04, 2020 20:34
--- NOTE | 2020-09-04 21:00 | NUR ---
NURSE NOTES: Patient asleep, but responsive to stimuli. No acute distress noted. Will continue to monitor.
[2020-09-04] MEDS: Atorvastatin 20mg tab ORAL SCH (21:18)
[2020-09-05] VITALS: BP 123/71
--- NOTE | 2020-09-05 | NUR ---
NURSE NOTES: Patient tolerating vent settings well. No acute distress noted. Will continue to monitor.
--- NOTE | 2020-09-05 02:48 | Cardiology Progress Note ---
Subjective DATE OF SERVICE: Sep 04, 2020 Remains in sinus rhythm, but had bradycardia post Metoprolol dose yesterday; dose was decreased. PICC line access remains in placed s/p multiple thorocentesis episodes. On antimicrobials for positive blood, urine, and sputum cultures with multiple gram negative pathogen. No new bleeding, since back on anticoagulation now following GI clearance. Objective Last 24 Hour Vital Signs Date Time Temp Pulse Resp B/P (MAP) Pulse Ox O2 Delivery O2 Flow Rate FiO2 09/05/20 00:00 98.1 80 24 123/71 (88) 97 09/05/20 00:00 30 09/05/20 00:00 Mechanical Ventilator 09/04/20 23:11 82 25 30 09/04/20 20:54 76 118/55 09/04/20 20:00 97.7 76 24 118/55 (76) 97 09/04/20 20:00 Mechanical Ventilator 09/04/20 20:00 30 09/04/20 20:00 73 09/04/20 19:47 72 24 30 09/04/20 16:00 74 09/04/20 16:00 30 09/04/20 16:00 Mechanical Ventilator 09/04/20 16:00 97.3 78 24 121/56 (77) 95 09/04/20 15:38 71 24 30 09/04/20 13:41 84 24 99 Mechanical Ventilator 35 09/04/20 12:00 Mechanical Ventilator 09/04/20 12:00 40 09/04/20 12:00 98.1 72 24 137/77 (97) 95 09/04/20 11:33 68 09/04/20 11:14 78 24 40 09/04/20 10:18 70 142/68 09/04/20 08:00 98.4 91 28 142/68 (92) 96 09/04/20 08:00 40 09/04/20 08:00 Mechanical Ventilator 09/04/20 07:26 86 09/04/20 07:20 81 24 40 09/04/20 04:00 Mechanical Ventilator 09/04/20 04:00 98.9 76 24 129/67 (87) 99 09/04/20 04:00 83 09/04/20 04:00 40 09/04/20 03:48 84 24 40 ROS: unchanged from 07/14/20 HEENT: Mechanically Ventilated, Thick Trach secretions RHYTHM: NSR, ST, PACs, Afib LUNGS: diminished breath sounds, bilateral rhonchi CARDIAC: normal S1 and S2, rapid rate, arrhythmia ABDOMEN: normal bowel sounds, soft, G-Tube intact EXTREMITIES: normal range of motion, non-tender, trace edema, other - withdrawn Laboratory Tests Test 09/04/20 06:00 White Blood Count 6.4 K/UL (4.8-10.8) Red Blood Count 2.90 M/UL (4.70-6.10) L Hemoglobin 8.1 G/DL (14.2-18.0) L Hematocrit 26.7 % (42.0-52.0) L Mean Corpuscular Volume 92 FL (80-99) Mean Corpuscular Hemoglobin 28.1 PG (27.0-31.0) Mean Corpuscular Hemoglobin Concent 30.5 G/DL (32.0-36.0) L Red Cell Distribution Width 17.0 % (11.6-14.8) H Platelet Count 254 K/UL (150-450) Mean Platelet Volume 5.3 FL (6.5-10.1) L Neutrophils (%) (Auto) 68.8 % (45.0-75.0) Lymphocytes (%) (Auto) 17.6 % (20.0-45.0) L Monocytes (%) (Auto) 6.0 % (1.0-10.0) Eosinophils (%) (Auto) 7.1 % (0.0-3.0) H Basophils (%) (Auto) 0.6 % (0.0-2.0) Sodium Level 142 MMOL/L (136-145) Potassium Level 4.0 MMOL/L (3.5-5.1) Chloride Level 113 MMOL/L (98-107) H Carbon Dioxide Level 19 MMOL/L (21-32) L Anion Gap 10 mmol/L (5-15) Blood Urea Nitrogen 61 mg/dL (7-18) H Creatinine 1.1 MG/DL (0.55-1.30) Estimat Glomerular Filtration Rate > 60 mL/min (>60) Glucose Level 150 MG/DL (74-106) H Calcium Level 6.8 MG/DL (8.5-10.1) L Assessment/Plan Assessment/Plan Bradycardia due to meds with underlying sinus node disease - improved with dose adjustment of metoprolol. 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 Dyslipidemia on high dose statin - now dose adjusted Dehydration/hypernatremia Severe protein-calorie malnutrition Multiple wounds Anemia - s/p tx Pleural effusion - s/p bilateral thorocentesis Full vent support; monitor ABG and review CXR Continue with decreased beta ezekiel dose Abx per ID Cardiac monitoring Statin dose adjusted Amiodarone at increased dose to maintain sinus rhythm. Diuresis based on daily assessments of volume status; therapeutic thorocentesis as needed Continue anticoagulation with caution due to bleeding risk Dylan Mak MD Sep 05, 2020 02:48
[2020-09-05 04:00] VITALS: BP 129/71
[2020-09-05] MEDS: Metoclopramide 10mg/2ml Inj IVP SCH ×3 (04:54→17:01)
[2020-09-05 05:59] LABS: BASOPHILS % (AUTO) 0.7 % (0.0-2.0); EOSINOPHILS % (AUTO) 6.1 % (0.0-3.0); HEMATOCRIT 29.1 % (42.0-52.0); HEMOGLOBIN 9.1 G/DL (14.2-18.0); LYMPHOCYTES % (AUTO) 25.9 % (20.0-45.0); MEAN CORPUSCULAR VOLUME 91 FL (80-99); MONOCYTES % (AUTO) 6.5 % (1.0-10.0); NEUTROPHILS % (AUTO) 60.8 % (45.0-75.0); PLATELET COUNT 328 K/UL (150-450); RED BLOOD COUNT 3.21 M/UL (4.70-6.10); RED CELL DISTRIBUTION WIDTH 17.2 % (11.6-14.8); WHITE BLOOD COUNT 6.9 K/UL (4.8-10.8)
--- NOTE | 2020-09-05 06:00 | NUR ---
NURSE NOTES: Dressings noted soiled. Wound care dressings redone. Kept area clean and dry at all times.
[2020-09-05 06:14] LABS: ALANINE AMINOTRANSFERASE 52 U/L (12-78); ALBUMIN 0.8 G/DL (3.4-5.0); ALBUMIN/GLOBULIN RATIO 0.1 (1.0-2.7); ALKALINE PHOSPHATASE 195 U/L (46-116); ANION GAP 8 mmol/L (5-15); ASPARTATE AMINO TRANSFERASE 39 U/L (15-37); BILIRUBIN,TOTAL 0.4 MG/DL (0.2-1.0); BLOOD UREA NITROGEN 63 mg/dL (7-18); CALCIUM 7.9 MG/DL (8.5-10.1); CARBON DIOXIDE 24 MMOL/L (21-32); CHLORIDE 112 MMOL/L (98-107); CREATININE 1.2 MG/DL (0.55-1.30); POTASSIUM 4.8 MMOL/L (3.5-5.1); SODIUM 144 MMOL/L (136-145)
[2020-09-05] MEDS: Sodium Citrate 30ml ORAL SCH ×3 (06:17→18:00)
--- NOTE | 2020-09-05 07:40 | NUR ---
NURSE HAND-OFF REPORT: Important Events on Shift: Change wound dressings Patient Status: Stable Diet: GT Pending Orders: Pending Results/Labs: Pending MD notification: Latest Vital Signs: Temperature 98.2 , Pulse 79 , B/P 129 /71 , Respiratory Rate 24 , O2 SAT 97 , Trach Collar, O2 Flow Rate 10.0 . Vital Sign Comment: WNL EKG Rhythm: Sinus Rhythm Rhythm change?: N MD Notified?: Y -Dr Aubree VALDEZ Response: Message left await call Latest Ramirez Fall Score: 50 Fall Risk: High Risk Safety Measures: Call light Within Reach, Bed Alarm Zone 1, Side Rails Side Rails x3, Bed position Low and Locked. Fall Precautions: Yellow Socks Patient Fall Education Report given to SELIN Dickens.
[2020-09-05 08:00] VITALS: BP 137/62
[2020-09-05] MEDS: Metoprolol Tartrate 50mg tab GT SCH (08:47)
[2020-09-05] MEDS: Ascorbic Acid 500mg tab ORAL SCH (08:47)
[2020-09-05] MEDS: Midodrine 10mg tab ORAL SCH ×3 (08:47→18:00)
[2020-09-05] MEDS: levETIRAcetam 500mg/5ml Liquid GT SCH (08:47)
[2020-09-05] MEDS: Amiodarone 200mg tab GT SCH (08:48)
[2020-09-05] MEDS: Dakin's 0.25% (Half Strength) 16oz TOPIC SCH (08:49)
--- NOTE | 2020-09-05 10:42 | Pulmonology Progress Note ---
Subjective ROS Limited/Unobtainable: Yes Gastrointestinal/Abdominal: Reports: diarrhea, other - X 1 Allergies: Coded Allergies: No Known Allergies (Unverified , 11/02/19) All Systems: reviewed and negative except above Subjective CARE NOTED nonverbal on vent vitals ok anemia noted Objective Last 24 Hour Vital Signs Date Time Temp Pulse Resp B/P (MAP) Pulse Ox O2 Delivery O2 Flow Rate FiO2 09/05/20 08:47 92 137/62 09/05/20 07:15 84 24 30 09/05/20 04:00 79 09/05/20 04:00 98.2 81 24 129/71 (90) 97 09/05/20 04:00 30 09/05/20 04:00 Mechanical Ventilator 09/05/20 03:14 79 28 30 09/05/20 00:00 98.1 80 24 123/71 (88) 97 09/05/20 00:00 90 09/05/20 00:00 30 09/05/20 00:00 Mechanical Ventilator 09/04/20 23:11 82 25 30 09/04/20 20:54 76 118/55 09/04/20 20:00 97.7 76 24 118/55 (76) 97 09/04/20 20:00 Mechanical Ventilator 09/04/20 20:00 30 09/04/20 20:00 73 09/04/20 19:47 72 24 30 09/04/20 16:00 74 09/04/20 16:00 30 09/04/20 16:00 Mechanical Ventilator 09/04/20 16:00 97.3 78 24 121/56 (77) 95 09/04/20 15:38 71 24 30 09/04/20 13:41 84 24 99 Mechanical Ventilator 35 09/04/20 12:00 Mechanical Ventilator 09/04/20 12:00 40 09/04/20 12:00 98.1 72 24 137/77 (97) 95 09/04/20 11:33 68 09/04/20 11:14 78 24 40 Intake and Output 09/04/20 09/05/20 19:00 07:00 Intake Total 2030 ml 640 ml Output Total 1550 ml Balance 480 ml 640 ml Free Water 320 ml IV Total 750 ml Tube Feeding 960 ml 640 ml Output Urine Total 1450 ml Stool Total 100 ml Objective WDWN NAD awake chronically ill moderate breath sounds bilaterally without rhonchi [id number] NABS nontender GT no CC noted anasarca nonfocal weak wounds noted Laboratory Tests 09/05/20 05:40: White Blood Count 6.9, Red Blood Count 3.21L, Hemoglobin 9.1L, Hematocrit 29.1L, Mean Corpuscular Volume 91, Mean Corpuscular Hemoglobin 28.5, Mean Corpuscular Hemoglobin Concent 31.4L, Red Cell Distribution Width 17.2H, Platelet Count 328, Mean Platelet Volume 5.5L, Neutrophils (%) (Auto) 60.8, Lymphocytes (%) (Auto) 25.9, Monocytes (%) (Auto) 6.5, Eosinophils (%) (Auto) 6.1H, Basophils (%) (Auto) 0.7, Sodium Level 144, Potassium Level 4.8, Chloride Level 112H, Carbon Dioxide Level 24, Anion Gap 8, Blood Urea Nitrogen 63H, Creatinine 1.2, Estimat Glomerular Filtration Rate > 60, Glucose Level 125H, Calcium Level 7.9L, Total Bilirubin 0.4, Aspartate Amino Transf (AST/SGOT) 39H, Alanine Aminotransferase (ALT/SGPT) 52, Alkaline Phosphatase 195H, Total Protein 6.2L, Albumin 0.8L, Globulin 5.4, Albumin/Globulin Ratio 0.1L Current Medications Medications (Trade) Dose Ordered Sig/Clive Route PRN Reason Start Time Stop Time Status Last Admin Dose Admin Acetaminophen (Tylenol) 650 mg Q4H PRN GT Temp >100.5 08/18/20 21:15 09/17/20 21:14 08/27/20 15:39 Amiodarone HCl (Cordarone) 200 mg DAILY GT 08/24/20 09:00 10/28/20 17:59 09/05/20 08:48 Ascorbic Acid (Vitamin C) 500 mg DAILY ORAL 08/17/20 16:00 09/16/20 15:59 09/05/20 08:47 Atorvastatin Calcium (Lipitor) 10 mg BEDTIME ORAL 08/28/20 21:45 11/24/20 20:59 09/04/20 21:18 Chlorhexidine Gluconate (Jennifer-Hex 2%) 1 applic DAILY@1999 TOPIC 07/17/20 20:00 10/15/20 19:59 09/04/20 20:00 Epoetin Tino (Epoetin Tino-EPBX(NON ESRD)) 2,000 unit SUBQ 08/25/20 21:00 11/23/20 20:59 09/03/20 20:41 Epoetin Tino (Epoetin Tino-EPBX(NON ESRD)) 3,000 unit SUBQ 08/25/20 21:00 11/23/20 20:59 09/03/20 20:41 Famotidine (Pepcid) 20 mg Q12HR GT 07/16/20 21:00 10/14/20 20:59 09/05/20 08:48 Finasteride (Proscar) 5 mg DAILY ORAL 07/15/20 09:00 10/13/20 08:59 09/04/20 10:19 Hydralazine HCl (Apresoline) 25 mg Q6H PRN GT SBP above 150 07/24/20 23:30 10/22/20 23:29 07/26/20 05:22 Levetiracetam (Keppra) 1,000 mg Q12HR GT 09/01/20 21:00 10/06/20 09:06 09/05/20 08:47 Loperamide HCl (Imodium) 4 mg Q4H PRN GT Diarrhea 08/31/20 22:00 09/30/20 21:59 09/04/20 13:43 Metoclopramide HCl (Reglan) 5 mg Q6H IVP 08/21/20 22:00 09/20/20 21:59 09/05/20 08:48 Metoprolol Tartrate (Lopressor) 50 mg Q12HR GT 09/03/20 21:00 11/11/20 08:59 09/05/20 08:47 Midodrine (Pro-Amatine) 10 mg THREE TIMES A DAY ORAL 08/28/20 18:00 11/26/20 17:59 09/05/20 08:47 Multivitamins (Multivitamins) 1 tab DAILY ORAL 08/17/20 16:00 09/16/20 15:59 09/05/20 08:48 Sodium Hypochlorite (Dakin's Half Strength) 1 applic DAILY TOPIC 08/19/20 16:30 09/18/20 16:29 09/05/20 08:49 Sodium Citrate (Bicitra) 30 ml EVERY 6 HOURS ORAL 08/30/20 18:00 09/29/20 17:59 09/05/20 06:17 Zinc Sulfate (Zinc Sulfate) 220 mg DAILY ORAL 09/11/20 09:00 12/10/20 08:59 Assessment/Plan Assessment/Plan Impression: Healthcare-associated pneumonia Acute respiratory failure with hypoxia Tracheostomy status Pleural effusion, left-recurrent s/p tap Decubitus ulcers ARF Anemia S/p previous Craniotomy, RCA occlusion, IMMIGRATION GUARD shunt Seizure history GERD, dysphagia s/p GJ tube h/o Hypertension h/o Atrial fibrillation Previous DVT and Pulmonary Embolism, hypernatremia bacteremia acidemia Plan events reviewed maintain vent as is hypervent on antibiotics pressors off ID noted underwent tap monitor HH for change J tube feeds monitor oxygen needs nebs as needed lasix x 1 Wound care monitor acidemia bicitra orders reviewed and discussed impression, plan, and exam edited and reviewed in detail care discussed with Nikita Arreola MD Sep 05, 2020 10:42
--- NOTE | 2020-09-05 11:03 | Infectious Diseases Prog Note ---
"Assessment/Plan Assessment/Plan antibiotics : none A 1. pseudomonas | proteus pneumonia s/p rx COVID19 test is negative. 2. proteus | providencia sepsis s/p rx 3. pseudomonas UTI s/p rx 4. Hypertension. 5. Atrial fibrillation 6. respiratory failure s/p tracheostomy 7. pleural effusion s/p thoracentesis 8. renal failure P 1. continue off antibiotics 2. will follow up cultures Subjective ROS Limited/Unobtainable: Yes Allergies: Coded Allergies: No Known Allergies (Unverified , 11/02/19) Objective Last 24 Hour Vital Signs Date Time Temp Pulse Resp B/P (MAP) Pulse Ox O2 Delivery O2 Flow Rate FiO2 09/05/20 08:47 92 137/62 09/05/20 07:15 84 24 30 09/05/20 04:00 79 09/05/20 04:00 98.2 81 24 129/71 (90) 97 09/05/20 04:00 30 09/05/20 04:00 Mechanical Ventilator 09/05/20 03:14 79 28 30 09/05/20 00:00 98.1 80 24 123/71 (88) 97 09/05/20 00:00 90 09/05/20 00:00 30 09/05/20 00:00 Mechanical Ventilator 09/04/20 23:11 82 25 30 09/04/20 20:54 76 118/55 09/04/20 20:00 97.7 76 24 118/55 (76) 97 09/04/20 20:00 Mechanical Ventilator 09/04/20 20:00 30 09/04/20 20:00 73 09/04/20 19:47 72 24 30 09/04/20 16:00 74 09/04/20 16:00 30 09/04/20 16:00 Mechanical Ventilator 09/04/20 16:00 97.3 78 24 121/56 (77) 95 09/04/20 15:38 71 24 30 09/04/20 13:41 84 24 99 Mechanical Ventilator 35 09/04/20 12:00 Mechanical Ventilator 09/04/20 12:00 40 09/04/20 12:00 98.1 72 24 137/77 (97) 95 09/04/20 11:33 68 09/04/20 11:14 78 24 40 Height (Feet): 5 Height (Inches): 4.00 Weight (Pounds): 171 HEENT: status post trach Respiratory/Chest: rhonchi - bilaterally Cardiovascular: normal rate, regular rhythm, no gallop/murmur Abdomen: soft, non tender, other - GT Extremities: other - + edema bilaterally, left arm PICC Laboratory Tests Test 09/05/20 05:40 White Blood Count 6.9 K/UL (4.8-10.8) Red Blood Count 3.21 M/UL (4.70-6.10) L Hemoglobin 9.1 G/DL (14.2-18.0) L Hematocrit 29.1 % (42.0-52.0) L Mean Corpuscular Volume 91 FL (80-99) Mean Corpuscular Hemoglobin 28.5 PG (27.0-31.0) Mean Corpuscular Hemoglobin Concent 31.4 G/DL (32.0-36.0) L Red Cell Distribution Width 17.2 % (11.6-14.8) H Platelet Count 328 K/UL (150-450) Mean Platelet Volume 5.5 FL (6.5-10.1) L Neutrophils (%) (Auto) 60.8 % (45.0-75.0) Lymphocytes (%) (Auto) 25.9 % (20.0-45.0) Monocytes (%) (Auto) 6.5 % (1.0-10.0) Eosinophils (%) (Auto) 6.1 % (0.0-3.0) H Basophils (%) (Auto) 0.7 % (0.0-2.0) Sodium Level 144 MMOL/L (136-145) Potassium Level 4.8 MMOL/L (3.5-5.1) Chloride Level 112 MMOL/L (98-107) H Carbon Dioxide Level 24 MMOL/L (21-32) Anion Gap 8 mmol/L (5-15) Blood Urea Nitrogen 63 mg/dL (7-18) H Creatinine 1.2 MG/DL (0.55-1.30) Estimat Glomerular Filtration Rate > 60 mL/min (>60) Glucose Level 125 MG/DL (74-106) H Calcium Level 7.9 MG/DL (8.5-10.1) L Total Bilirubin 0.4 MG/DL (0.2-1.0) Aspartate Amino Transf (AST/SGOT) 39 U/L (15-37) H Alanine Aminotransferase (ALT/SGPT) 52 U/L (12-78) Alkaline Phosphatase 195 U/L (46-116) H Total Protein 6.2 G/DL (6.4-8.2) L Albumin 0.8 G/DL (3.4-5.0) L Globulin 5.4 g/dL Albumin/Globulin Ratio 0.1 (1.0-2.7) L Current Medications Medications (Trade) Dose Ordered Sig/Clive Route PRN Reason Start Time Stop Time Status Last Admin Dose Admin Acetaminophen (Tylenol) 650 mg Q4H PRN GT Temp >100.5 08/18/20 21:15 09/17/20 21:14 08/27/20 15:39 Amiodarone HCl (Cordarone) 200 mg DAILY GT 08/24/20 09:00 10/28/20 17:59 09/05/20 08:48 Ascorbic Acid (Vitamin C) 500 mg DAILY ORAL 08/17/20 16:00 09/16/20 15:59 09/05/20 08:47 Atorvastatin Calcium (Lipitor) 10 mg BEDTIME ORAL 08/28/20 21:45 11/24/20 20:59 09/04/20 21:18 Chlorhexidine Gluconate (Jennifer-Hex 2%) 1 applic DAILY@1999 TOPIC 07/17/20 20:00 10/15/20 19:59 09/04/20 20:00 Epoetin Tino (Epoetin Itno-EPBX(NON ESRD)) 2,000 unit SUBQ 08/25/20 21:00 11/23/20 20:59 09/03/20 20:41 Epoetin Tino (Epoetin Tino-EPBX(NON ESRD)) 3,000 unit -TUE SUBQ 08/25/20 21:00 11/23/20 20:59 09/03/20 20:41 Famotidine (Pepcid) 20 mg Q12HR GT 07/16/20 21:00 10/14/20 20:59 09/05/20 08:48 Finasteride (Proscar) 5 mg DAILY ORAL 07/15/20 09:00 10/13/20 08:59 09/04/20 10:19 Hydralazine HCl (Apresoline) 25 mg Q6H PRN GT SBP above 150 07/24/20 23:30 10/22/20 23:29 07/26/20 05:22 Levetiracetam (Keppra) 1,000 mg Q12HR GT 09/01/20 21:00 10/06/20 09:06 09/05/20 08:47 Loperamide HCl (Imodium) 4 mg Q4H PRN GT Diarrhea 08/31/20 22:00 09/30/20 21:59 09/04/20 13:43 Metoclopramide HCl (Reglan) 5 mg Q6H IVP 08/21/20 22:00 09/20/20 21:59 09/05/20 08:48 Metoprolol Tartrate (Lopressor) 50 mg Q12HR GT 09/03/20 21:00 11/11/20 08:59 09/05/20 08:47 Midodrine (Pro-Amatine) 10 mg THREE TIMES A DAY ORAL 08/28/20 18:00 11/26/20 17:59 09/05/20 08:47 Multivitamins (Multivitamins) 1 tab DAILY ORAL 08/17/20 16:00 09/16/20 15:59 09/05/20 08:48 Sodium Hypochlorite (Dakin's Half Strength) 1 applic DAILY TOPIC 08/19/20 16:30 09/18/20 16:29 09/05/20 08:49 Sodium Citrate (Bicitra) 30 ml EVERY 6 HOURS ORAL 08/30/20 18:00 09/29/20 17:59 09/05/20 06:17 Zinc Sulfate (Zinc Sulfate) 220 mg DAILY ORAL 09/11/20 09:00 12/10/20 08:59 Kristie Reina MD Sep 05, 2020 11:03"
--- NOTE | 2020-09-05 11:29 | Surgery Progress Note ---
Surgery Progress Note Subjective Additional Comments ill appearing labs okay no n/v dressings going well Objective Last 24 Hour Vital Signs Date Time Temp Pulse Resp B/P (MAP) Pulse Ox O2 Delivery O2 Flow Rate FiO2 09/05/20 08:47 92 137/62 09/05/20 08:00 98.4 92 26 137/62 (87) 93 09/05/20 08:00 30 09/05/20 07:15 84 24 30 09/05/20 04:00 79 09/05/20 04:00 98.2 81 24 129/71 (90) 97 09/05/20 04:00 30 09/05/20 04:00 Mechanical Ventilator 09/05/20 03:14 79 28 30 09/05/20 00:00 98.1 80 24 123/71 (88) 97 09/05/20 00:00 90 09/05/20 00:00 30 09/05/20 00:00 Mechanical Ventilator 09/04/20 23:11 82 25 30 09/04/20 20:54 76 118/55 09/04/20 20:00 97.7 76 24 118/55 (76) 97 09/04/20 20:00 Mechanical Ventilator 09/04/20 20:00 30 09/04/20 20:00 73 09/04/20 19:47 72 24 30 09/04/20 16:00 74 09/04/20 16:00 30 09/04/20 16:00 Mechanical Ventilator 09/04/20 16:00 97.3 78 24 121/56 (77) 95 09/04/20 15:38 71 24 30 09/04/20 13:41 84 24 99 Mechanical Ventilator 35 09/04/20 12:00 Mechanical Ventilator 09/04/20 12:00 40 09/04/20 12:00 98.1 72 24 137/77 (97) 95 09/04/20 11:33 68 I&O Intake and Output 09/04/20 09/05/20 19:00 07:00 Intake Total 2030 ml 640 ml Output Total 1550 ml Balance 480 ml 640 ml Free Water 320 ml IV Total 750 ml Tube Feeding 960 ml 640 ml Output Urine Total 1450 ml Stool Total 100 ml Dressing: saturated Cardiovascular: RSR Respiratory: decreased breath sounds Abdomen: soft, non-tender, non-distended Extremities: no edema, no tenderness, no cyanosis, other Laboratory Tests Test 09/05/20 05:40 White Blood Count 6.9 K/UL (4.8-10.8) Red Blood Count 3.21 M/UL (4.70-6.10) L Hemoglobin 9.1 G/DL (14.2-18.0) L Hematocrit 29.1 % (42.0-52.0) L Mean Corpuscular Volume 91 FL (80-99) Mean Corpuscular Hemoglobin 28.5 PG (27.0-31.0) Mean Corpuscular Hemoglobin Concent 31.4 G/DL (32.0-36.0) L Red Cell Distribution Width 17.2 % (11.6-14.8) H Platelet Count 328 K/UL (150-450) Mean Platelet Volume 5.5 FL (6.5-10.1) L Neutrophils (%) (Auto) 60.8 % (45.0-75.0) Lymphocytes (%) (Auto) 25.9 % (20.0-45.0) Monocytes (%) (Auto) 6.5 % (1.0-10.0) Eosinophils (%) (Auto) 6.1 % (0.0-3.0) H Basophils (%) (Auto) 0.7 % (0.0-2.0) Sodium Level 144 MMOL/L (136-145) Potassium Level 4.8 MMOL/L (3.5-5.1) Chloride Level 112 MMOL/L (98-107) H Carbon Dioxide Level 24 MMOL/L (21-32) Anion Gap 8 mmol/L (5-15) Blood Urea Nitrogen 63 mg/dL (7-18) H Creatinine 1.2 MG/DL (0.55-1.30) Estimat Glomerular Filtration Rate > 60 mL/min (>60) Glucose Level 125 MG/DL (74-106) H Calcium Level 7.9 MG/DL (8.5-10.1) L Total Bilirubin 0.4 MG/DL (0.2-1.0) Aspartate Amino Transf (AST/SGOT) 39 U/L (15-37) H Alanine Aminotransferase (ALT/SGPT) 52 U/L (12-78) Alkaline Phosphatase 195 U/L (46-116) H Total Protein 6.2 G/DL (6.4-8.2) L Albumin 0.8 G/DL (3.4-5.0) L Globulin 5.4 g/dL Albumin/Globulin Ratio 0.1 (1.0-2.7) L Plan Problems: (1) Decubitus skin ulcer Assessment & Plan: Pt was discharged 08/15/20 and readmitted same day. 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 Small amt exudate that is of Sanguineous mixed with Formula noted from GT. Mild excoriation noted to Peristomal GT site. Full Thickness Sacral Pressure Injury (L)10.5cm x (W)8.3cm x (D)1.5cm, Undermining clockwise 9-2 by 1.3cm @10'oclock. Base of wound is 90% granular 10% necrotic. NO odor noted. Small amt serosanguineous exudate noted.Periwound is erythematous and indurated. No changes in skin temp noted. Full Thickness Pressure Injury Outer L Lower Quadrant of Buttocks.(L)5.5cm x (W)7cm x (D)1.5cm, Undermining clockwise 9-3 by 4.5cm @12o'clock, Tunneled area within base of wound by 5.5cm @ 1-2o'clock. Base of wound is 85% % moist and pink ,15% necrotic at base at undermined area of wound. Bone exposure noted. Small amt serosanguineous exudate noted. Periwound is erythematous and indurated. No odor noted. Full thickness Pressure Injury L Ischium(L)2cm x (W)0.9cm x (D)0.3cm. Base of wound is moist, and pink. Edges are adherent to base of wound. Periwound is maroon and indurated. NO changes in skin temp periwound. NO odor noted. Non-Blanchable erythema without induration noted to R Hip /R trochanteric.. Full Thickness Pressure Injury lateral L Tibia(L)21.5cm x (W)3.5cm x (D)0.2cm. Base of wound is 95% granular,5% necrosis along borders. Edges are adherent to base of wound . Moderate amt sanguineous exudate noted. No odor noted.Periwound skin colour is darker than is normal tone but without erythema or induration. Full thickness Pressure Injury L Heel extending into Plantar aspect of heel(L)8.7cm x (W)6.5cm x(D)0.6cm.Base of wound is 60% beefy granulation,40% necrotic. Bone is palpable. (+) Epibole at proximal borders of wound in close proximity with achilles. Small amt haemopurulent exudate noted. Wound is malodorous. Periwound is dusky and indurated. Full Thickness Pressure Injury Lateral L Foot (L)1.9cm x (W)3.4cm x (D)0.3cm, undermining clockwise 9-3 by 0.2cm @9o'clock. Base of wound is 10% necrotic 90% antonio. Wound is malodorous. Edges are macerate with scattered areas of necrosis along edges. Small amt haemopurulent exudate noted.Periwound is fluctuant and dusky. Full Thickness Pressure Injury distal/lateral L foot(L)1.3cm x (W)3.7cm x (D)0.2cm. Base of wound is 80% soft necrosis,20% moist and pink. edges are macerated. Wound is malodorous. Small amt brown exudate noted . Periwound is dusky and fluctuant. Unstageable Pressure injury dorsal L foot (L)1cm x (W)0.9cm. Base of wound is 100% necrotic. Edges are erythematous and macerated. Periwound without erythema,induration or fluctuance. Full thickness Pressure Injury R Heel including plantar aspect of heel (L)8.7cm x (W)6.5cm x (D)0.6cm. Base of wound is 60% beefy granulation,40% necrotic. Bone exposure at base of wound. Moderate amt haemopurulent exudate. Wound is malodorous. Proximal edges of wound within close proximity with achilles is rolled. Edges are otherwise macerated. Periwound is fluctuant and dusky. Full Thickness Pressure Injury distal/lateral R foot (L)0.5cm x (W)0.6cm. Base of wound is 100% fibrinous slough. Erythematous borders. Periwound without induration or fluctuance. Small amt serous exudate noted. Tx.Plan: Wash GT site with Soap and Water. Pat dry. Apply Moisture Barrier Paste around Gt Daily. Leave open to Air. Cleanse Sacral wound, L buttocks, and L Ischia wounds with Dakin's 0.25% Kristel. Loosely pack wounds with Dakin's moistened Kerlix.Apply Triad Paste periwound. Cover with Optifoam drsgs Daily and prn. Cleanse wound Lateral L Tibia with Dakin's o.25% Kristel. Rinse with Saline. Apply Promogran moistened with Saline. Apply Moisture Barrier Paste along borders. Cover with ABD Pads. Wrap with Kerlix every Mon-Wed-Fri (NOTE: Wound Nurse to Aplpy Promogran) Cleanse wounds L Foot with Dakin's 0.25% Kristel. Apply Dakin's moistened Gauze to each wound. Apply Triad Paste along Borders of each wound. Cover with ABD Pads and wrap with Kerlix Daily and prn. Cleanse R Heel wound with Dakin's 0.25% Kristel. Apply Dakin's Moistened Gauze to wound. Apply Triad Paste Periwound. Cover with ABD Pad. Wrap with Kerlix Daily and prn. Reposition at least every 2hours or as tolerated. Place Pillow Between Knees. Off-load heels with 2 Pillows. APM/TERRIE Mattress overlay. Sacral wound,L Buttocks, L Ischial wounds cleansed with Dakin's and each wound loosely packed with Dakin's moistened Kerlix.Moisture Barrier Paste applied to borders of each wound and each wound covered with Optifoam drsgs. Perianal area noted to be red and excoriated. Moisture Barrier Paste applied to affected area. Drsgs to L tibia, L Heel and R Heel noted to be saturated and malodorous. Both lower ext washed with Chlorhexidine soap prior to providing wound care.Base of wound lateral L Tibia beefy red. Edges are adherent with an area of 5% necrosis distally. Small amt sanguineous exudate No erythema or changes in skin temp periwound. Wound Later L Tibia cleansed with Saline. Promogran applied to base of wound.Moisture Barrier Paste applied along borders. Covered with ABD pad. Wrapped with Kerlix. R and L Heel wounds cleansed Dakin's 0.25% kristel. Dakin's moistened gauze applied to each wound Moisture Barrier Paste applied to borders of each wound and each wound covered with Abd Pads and each heel wrapped with Kerlix drsgs. Skin under tracheal collar assessed and no evidence of skin breakdown noted. Peristomal Gt site is resolving, Skin is moist but pink.No new skin concerns noted. ill appearing leg worsening would not tolerate amputation (2) Anemia Assessment & Plan: trend h/h prbc prn (3) UTI (urinary tract infection) (4) Pleural effusion, left Assessment & Plan: Ultrasound used to localize optimal puncture site. Sterile prepping and draping left chest. Local anesthesia with 1% lidocaine. Under real-time ultrasound guidance, puncture pleural space using thoracentesis needle. Stylet removed. Catheter placed to vacuum bottle suction. Total 1700 milliliters of fluid aspirated. Patient tolerated procedure well, without immediate complication. Findings: Followup sonography demonstrates small amount of residual pleural fluid. Impression: Successful ultrasound-guided thoracentesis, yielding 1700 milliliters of fluid Lungs: Hazy left lung attenuation could be due to consolidation, pulmonary edema; correlate with presentation. Retrocardiac atelectasis without or with consolidation. Pleural space: Small-moderate left pleural effusion with passive atelectasis. No pneumothorax. Heart: Unremarkable. No cardiomegaly. Mediastinum: Unremarkable. Bones/joints: No acute abnormality Tubes, lines and devices: Tracheostomy. Right upper extremity PICC tip in the mid SVC. IMPRESSION: 1. Tracheostomy. 2. Right upper extremity PICC tip in the mid SVC. 3. Small-moderate left pleural effusion with passive atelectasis. 4. Hazy left lung attenuation could be due to consolidation, pulmonary edema; correlate with presentation. 5. Retrocardiac atelectasis without or with consolidation. 6. Recommend CT chest with IV contrast to further characterize these findings. plan repeat thora (5) Malfunction of gastrostomy tube Assessment & Plan: DAILY ESTIMATED NEEDS: Needs based on Wounds, pulmonary/ 74.5kg 25-30 kcals/kg 9666-1839 total kcals 1.5-2 g protein/kg 111-149 g total protein 25-30 mL/kg 3792-4676 total fluid mLs NUTRITION DIAGNOSIS: * Swallowing difficulty R/T dysphagia, h/o craniotomy, respiratory failure as evidenced by pt on T-collar, GJ tube dependent. * Increased kcal/prot/micronutrients needs R/T wound healing as evidenced by pt admitted w/ multiple advanced wounds including full thickness wound x 7 and unstageable wounds x 2, refer to satish. CURRENT TF:Vital AF 1.2 @70ml/hr ENTERAL NUTRITION RECOMMENDATIONS: Vital AF 1.2 @ 65ml/hr x 24 hrs to provide 1560ml, 1872kcal, 117g prot, 1265ml free water * Lower goal rate to 65ml/hr x 24 hrs: meets 100% est kcal/prot needs * HOB over 30 degrees/ water flush 180ml q 6hrs without IVF ------ elemental TF formula of Vital AF not indicated, consider changing TF to Glucerna 1.2 @ 65ml/hr x 24 hrs + Prosource 1pkt TID to provide 1560ml, 1872kcal, 94g+ 33g prot, 1259ml free water ADDITIONAL RECOMMENDATIONS: * Calibrated bedscale wt * Wound Care: Con't Vit C 500mg BID, ZnSO4 220mg QD x 10 days add Stevie BID * Monitor lytes, replete as needed * DC D5 for improved BG control increase H2O flushes instead (Na now wnl, BUN elev) * Rec NISS (6) Acute respiratory failure with hypoxia (7) HCAP (healthcare-associated pneumonia) Deny Westfall Sep 05, 2020 11:29
[2020-09-05 12:00] VITALS: BP 115/54
--- NOTE | 2020-09-05 13:07 | NUR ---
CASE MANAGEMENT:REVIEW 09/05/20 SI: PNA. UTI. BACTEREMIA.PLEURAL EFFUSION 98.4 73 26 137/62 93% ON VENT SUPPORT W/30% FIO2 VIA TRACH H/H-9.1.1 BUN+63 IS: IVF@125/HR ZINC GT QD BICITRA GT Q6HRS LIPITOR GT QHS MIDODRINE GT TID AMIODARONE GT QD KEPPRA GT Q12 IV REGLAN Q6HRS LOPRESSOR GT Q12 : NOW ON STEP DOWN UNIT DCP: REFERRED TO [facility] PLAN: WEAN OFF VENT IF POSSIBLE THORACENTESIS
--- NOTE | 2020-09-05 14:45 | Nephrology Progress Note ---
Assessment/Plan Plan Elevated BUN + Creatinine due to CKD. BUN + creatinine down. Subjective Subjective Obtunded Objective Objective Last 24 Hour Vital Signs Date Time Temp Pulse Resp B/P (MAP) Pulse Ox O2 Delivery O2 Flow Rate FiO2 09/05/20 08:47 92 137/62 09/05/20 08:00 98.4 92 26 137/62 (87) 93 09/05/20 08:00 73 09/05/20 08:00 Mechanical Ventilator 09/05/20 08:00 30 09/05/20 07:15 84 24 30 09/05/20 04:00 79 09/05/20 04:00 98.2 81 24 129/71 (90) 97 09/05/20 04:00 30 09/05/20 04:00 Mechanical Ventilator 09/05/20 03:14 79 28 30 09/05/20 00:00 98.1 80 24 123/71 (88) 97 09/05/20 00:00 90 09/05/20 00:00 30 09/05/20 00:00 Mechanical Ventilator 09/04/20 23:11 82 25 30 09/04/20 20:54 76 118/55 09/04/20 20:00 97.7 76 24 118/55 (76) 97 09/04/20 20:00 Mechanical Ventilator 09/04/20 20:00 30 09/04/20 20:00 73 09/04/20 19:47 72 24 30 09/04/20 16:00 74 09/04/20 16:00 30 09/04/20 16:00 Mechanical Ventilator 09/04/20 16:00 97.3 78 24 121/56 (77) 95 09/04/20 15:38 71 24 30 Intake and Output 09/04/20 09/05/20 19:00 07:00 Intake Total 2030 ml 640 ml Output Total 1550 ml Balance 480 ml 640 ml Free Water 320 ml IV Total 750 ml Tube Feeding 960 ml 640 ml Output Urine Total 1450 ml Stool Total 100 ml Laboratory Tests 09/05/20 05:40: White Blood Count 6.9, Red Blood Count 3.21L, Hemoglobin 9.1L, Hematocrit 29.1L, Mean Corpuscular Volume 91, Mean Corpuscular Hemoglobin 28.5, Mean Corpuscular Hemoglobin Concent 31.4L, Red Cell Distribution Width 17.2H, Platelet Count 328, Mean Platelet Volume 5.5L, Neutrophils (%) (Auto) 60.8, Lymphocytes (%) (Auto) 25.9, Monocytes (%) (Auto) 6.5, Eosinophils (%) (Auto) 6.1H, Basophils (%) (Auto) 0.7, Sodium Level 144, Potassium Level 4.8, Chloride Level 112H, Carbon Dioxide Level 24, Anion Gap 8, Blood Urea Nitrogen 63H, Creatinine 1.2, Estimat Glomerular Filtration Rate > 60, Glucose Level 125H, Calcium Level 7.9L, Total Bilirubin 0.4, Aspartate Amino Transf (AST/SGOT) 39H, Alanine Aminotransferase (ALT/SGPT) 52, Alkaline Phosphatase 195H, Total Protein 6.2L, Albumin 0.8L, Globulin 5.4, Albumin/Globulin Ratio 0.1L Height (Feet): 5 Height (Inches): 4.00 Weight (Pounds): 171 Objective Trach clean CV RR Lungs B ronchi Abd SNT. BS + E contractures. Benjamin Quintero MD Sep 05, 2020 14:45
[2020-09-05 16:00] VITALS: BP 119/60
--- NOTE | 2020-09-05 16:04 | NUR ---
*-*DISCHARGE PLANNED*-* PATIENT HAS BEEN ACCEPTED TO: [facility] P: [phone] ROOM# 226 [facility] SET FOR A WILL CALL S/W TRUPTI Styles88Carlos.
[2020-09-05] MEDS ORDERED: NS 275ml ONE (16:16)
[2020-09-05] MEDS ORDERED: Tubing IV Secondary IV ONE (16:16)
[2020-09-05] MEDS ORDERED: 1/2 NS 1000ml IV ONE (16:16)
--- NOTE | 2020-09-05 16:45 | NUR ---
FUR TAILOR NOTES SPOKE WITH JOSE PT'S DAUGHTER MADE AWARE OF PT DISCHARGING TO [facility] [place] TODAY. PROVIDED CONTACT INFORMATION TO FAMILY.
--- NOTE | 2020-09-05 16:51 | NUR ---
*-*DISCHARGE PLANNED*-* PATIENT HAS BEEN ACCEPTED AND WILL BE DISCHARGE [facility] P: [phone] FOR NURSE TO NURSE REPORT ROOM# 226 [facility] SET FOR 6:45PM [id number]
--- NOTE | 2020-09-05 19:25 | NUR ---
NURSE NOTES: Received patient from [facility] Dickens under the care of Dr. Devlin for the admitting dx of PNA. Noted NKA and full code status. Contact isolation (for multiple organisms) and seizure precautions observed and maintained at all times. Patient noted to be obtunded with eyes open, no tracking. Tolerating Vent settings (A-C24 TV-500 FiO2-30% PEEP-5) well with no acute distress noted at this time. Patient is awaiting pickup for discharge to [facility]. Will continue to monitor.
--- NOTE | 2020-09-05 19:54 | NUR ---
NURSE HAND-OFF REPORT: Important Events on Shift:None Patient Status: Resting quietly.tolerating vent and tube feedings. [facility] Diet: Tube feedings Pending Orders: None Pending Results/Labs: None Pending MD notification: None Latest Vital Signs: Temperature 98.1 , Pulse 92 , B/P 119 /60 , Respiratory Rate 25 , O2 SAT 96 , Trach Collar, O2 Flow Rate 10.0 . Vital Sign Comment: None EKG Rhythm: Sinus Rhythm Rhythm change?: N Notified?: N MD Response: Latest Ramirez Fall Score: 50 Fall Risk: High Risk Safety Measures: Call light Within Reach, Bed Alarm Zone 1, Side Rails Side Rails x3, Bed position Low and Locked. Fall Precautions: Yellow Socks Patient Fall Education Report given to SELIN Mancilla.
[2020-09-05 20:00] VITALS: BP 131/70
--- NOTE | 2020-09-05 21:45 | General Progress Note ---
Subjective Allergies: Coded Allergies: No Known Allergies (Unverified , 11/02/19) Subjective seen earlier today no events overnight transfer plans noted Objective Last 24 Hour Vital Signs Date Time Temp Pulse Resp B/P (MAP) Pulse Ox O2 Delivery O2 Flow Rate FiO2 09/05/20 20:00 30 09/05/20 20:00 Mechanical Ventilator 09/05/20 20:00 98.6 92 24 131/70 (90) 96 09/05/20 19:12 92 25 30 09/05/20 16:00 Mechanical Ventilator 09/05/20 16:00 85 09/05/20 16:00 30 09/05/20 16:00 98.1 89 29 119/60 (79) 96 09/05/20 15:18 97 28 99 Mechanical Ventilator 30 09/05/20 15:10 97 28 30 09/05/20 12:00 Mechanical Ventilator 09/05/20 12:00 30 09/05/20 12:00 98.2 75 24 115/54 (74) 94 09/05/20 11:40 72 09/05/20 11:10 73 24 30 09/05/20 08:47 92 137/62 09/05/20 08:00 98.4 92 26 137/62 (87) 93 09/05/20 08:00 73 09/05/20 08:00 Mechanical Ventilator 09/05/20 08:00 30 09/05/20 07:15 84 24 30 09/05/20 04:00 79 09/05/20 04:00 98.2 81 24 129/71 (90) 97 09/05/20 04:00 30 09/05/20 04:00 Mechanical Ventilator 09/05/20 03:14 79 28 30 09/05/20 00:00 98.1 80 24 123/71 (88) 97 09/05/20 00:00 90 09/05/20 00:00 30 09/05/20 00:00 Mechanical Ventilator 09/04/20 23:11 82 25 30 Intake and Output 09/04/20 09/05/20 19:00 07:00 Intake Total 2030 ml 640 ml Output Total 1550 ml Balance 480 ml 640 ml Free Water 320 ml IV Total 750 ml Tube Feeding 960 ml 640 ml Output Urine Total 1450 ml Stool Total 100 ml Laboratory Tests 09/05/20 05:40: White Blood Count 6.9, Red Blood Count 3.21L, Hemoglobin 9.1L, Hematocrit 29.1L, Mean Corpuscular Volume 91, Mean Corpuscular Hemoglobin 28.5, Mean Corpuscular Hemoglobin Concent 31.4L, Red Cell Distribution Width 17.2H, Platelet Count 328, Mean Platelet Volume 5.5L, Neutrophils (%) (Auto) 60.8, Lymphocytes (%) (Auto) 25.9, Monocytes (%) (Auto) 6.5, Eosinophils (%) (Auto) 6.1H, Basophils (%) (Auto) 0.7, Sodium Level 144, Potassium Level 4.8, Chloride Level 112H, Carbon Dioxide Level 24, Anion Gap 8, Blood Urea Nitrogen 63H, Creatinine 1.2, Estimat Glomerular Filtration Rate > 60, Glucose Level 125H, Calcium Level 7.9L, Total Bilirubin 0.4, Aspartate Amino Transf (AST/SGOT) 39H, Alanine Aminotransferase (ALT/SGPT) 52, Alkaline Phosphatase 195H, Total Protein 6.2L, Albumin 0.8L, Globulin 5.4, Albumin/Globulin Ratio 0.1L Height (Feet): 5 Height (Inches): 4.00 Weight (Pounds): 171 Objective Eldely WM NCAT (+) trach , T tube Coarse BS RRR abd soft (+) GT (+) rectal tube diarrhea ext no edema Assessment/Plan Status: stable, progressing Assessment/Plan: Assessment - Abnormal LFT - ? sepsis, ? Amio, ? statin - UGIB - resolved - Anemia, s/p transfusion - h/o PUD - resp failure, s/p trach - dysphagia, s/p PEG - atrial fibrillation - h/o DVT - loose BM / rectal tube - C Diff (-) - decubitus ulcers - poor prognosis Recommendations - follow LFT - H2B BID indefinitely - vital AF 1.2 as tolerated - protein supplements - TID - MVI - Vitamin C - free water - follow H&H - monitor BM Akiko Rai MD Sep 05, 2020 21:45
--- NOTE | 2020-09-05 22:45 | NUR ---
NURSE NOTES: Patient picked up by ambulance for transfer to [facility] in stable condition.
--- NOTE | 2020-09-05 22:57 | Cardiology Progress Note ---
Subjective DATE OF SERVICE: Sep 05, 2020 Remains in sinus rhythm, with no recurring bradycardia since BBlocker dose decreased. s/p multiple thorocentesis episodes. No new bleeding, since back on anticoagulation now following GI clearance. Objective Last 24 Hour Vital Signs Date Time Temp Pulse Resp B/P (MAP) Pulse Ox O2 Delivery O2 Flow Rate FiO2 09/05/20 22:35 87 26 30 09/05/20 20:00 30 09/05/20 20:00 84 09/05/20 20:00 Mechanical Ventilator 09/05/20 20:00 98.6 92 24 131/70 (90) 96 09/05/20 19:12 92 25 30 09/05/20 16:00 Mechanical Ventilator 09/05/20 16:00 85 09/05/20 16:00 30 09/05/20 16:00 98.1 89 29 119/60 (79) 96 09/05/20 15:18 97 28 99 Mechanical Ventilator 30 09/05/20 15:10 97 28 30 09/05/20 12:00 Mechanical Ventilator 09/05/20 12:00 30 09/05/20 12:00 98.2 75 24 115/54 (74) 94 09/05/20 11:40 72 09/05/20 11:10 73 24 30 09/05/20 08:47 92 137/62 09/05/20 08:00 98.4 92 26 137/62 (87) 93 09/05/20 08:00 73 09/05/20 08:00 Mechanical Ventilator 09/05/20 08:00 30 09/05/20 07:15 84 24 30 09/05/20 04:00 79 09/05/20 04:00 98.2 81 24 129/71 (90) 97 09/05/20 04:00 30 09/05/20 04:00 Mechanical Ventilator 09/05/20 03:14 79 28 30 09/05/20 00:00 98.1 80 24 123/71 (88) 97 09/05/20 00:00 90 09/05/20 00:00 30 09/05/20 00:00 Mechanical Ventilator 09/04/20 23:11 82 25 30 ROS: unchanged from 07/14/20 HEENT: Mechanically Ventilated, Thick Trach secretions RHYTHM: NSR, ST, PACs, Afib LUNGS: diminished breath sounds, bilateral rhonchi CARDIAC: normal S1 and S2, rapid rate, arrhythmia ABDOMEN: normal bowel sounds, soft, G-Tube intact EXTREMITIES: normal range of motion, non-tender, trace edema, other - withdrawn Laboratory Tests Test 09/05/20 05:40 White Blood Count 6.9 K/UL (4.8-10.8) Red Blood Count 3.21 M/UL (4.70-6.10) L Hemoglobin 9.1 G/DL (14.2-18.0) L Hematocrit 29.1 % (42.0-52.0) L Mean Corpuscular Volume 91 FL (80-99) Mean Corpuscular Hemoglobin 28.5 PG (27.0-31.0) Mean Corpuscular Hemoglobin Concent 31.4 G/DL (32.0-36.0) L Red Cell Distribution Width 17.2 % (11.6-14.8) H Platelet Count 328 K/UL (150-450) Mean Platelet Volume 5.5 FL (6.5-10.1) L Neutrophils (%) (Auto) 60.8 % (45.0-75.0) Lymphocytes (%) (Auto) 25.9 % (20.0-45.0) Monocytes (%) (Auto) 6.5 % (1.0-10.0) Eosinophils (%) (Auto) 6.1 % (0.0-3.0) H Basophils (%) (Auto) 0.7 % (0.0-2.0) Sodium Level 144 MMOL/L (136-145) Potassium Level 4.8 MMOL/L (3.5-5.1) Chloride Level 112 MMOL/L (98-107) H Carbon Dioxide Level 24 MMOL/L (21-32) Anion Gap 8 mmol/L (5-15) Blood Urea Nitrogen 63 mg/dL (7-18) H Creatinine 1.2 MG/DL (0.55-1.30) Estimat Glomerular Filtration Rate > 60 mL/min (>60) Glucose Level 125 MG/DL (74-106) H Calcium Level 7.9 MG/DL (8.5-10.1) L Total Bilirubin 0.4 MG/DL (0.2-1.0) Aspartate Amino Transf (AST/SGOT) 39 U/L (15-37) H Alanine Aminotransferase (ALT/SGPT) 52 U/L (12-78) Alkaline Phosphatase 195 U/L (46-116) H Total Protein 6.2 G/DL (6.4-8.2) L Albumin 0.8 G/DL (3.4-5.0) L Globulin 5.4 g/dL Albumin/Globulin Ratio 0.1 (1.0-2.7) L Assessment/Plan Assessment/Plan Bradycardia due to meds with underlying sinus node disease - improved with dose adjustment of metoprolol. 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 Dyslipidemia on high dose statin - now dose adjusted Dehydration/hypernatremia Severe protein-calorie malnutrition Multiple wounds Anemia - s/p tx Pleural effusion - s/p bilateral thorocentesis Full vent support Continue with decreased beta ezekiel dose Statin dose adjusted per lipid panel results Amiodarone now at maintenance dose to maintain sinus rhythm. Continue anticoagulation with caution due to bleeding risk DC medication list reviewed for transfer to Subacute facility today. Dylan Mak MD Sep 05, 2020 22:57
[2020-09-11] MEDS ORDERED: Zinc Sulfate 220mg ORAL SCH (09:00)
== END 2020-09-05 22:50 | DRG 314 ==
LOC: EDSEX 23:43 → EDBD 23:43 → EMR 23:57 → 2E 07-14 00:22 → EDBEDREQ 07-14 01:18 → 2E 07-15 11:00 → 2W 08-25 13:30
PROC: 0DD78ZX Extraction of Stomach, Pylorus, Via Natural or Artificial Opening Endoscopic, Diagnostic (ICD-10-PCS; principal; 2020-07-21 08:19)
PROC: 0W9B3ZZ Drainage of Left Pleural Cavity, Percutaneous Approach (ICD-10-PCS; 2020-08-13)
PROC: 0W9B3ZZ Drainage of Left Pleural Cavity, Percutaneous Approach (ICD-10-PCS; 2020-08-18)
PROC: 02HV33Z Insertion of Infusion Device into Superior Vena Cava, Percutaneous Approach (ICD-10-PCS; 2020-08-20)
PROC: B518ZZA Fluoroscopy of Superior Vena Cava, Guidance (ICD-10-PCS; 2020-08-20)
PROC: 0BH17EZ Insertion of Endotracheal Airway into Trachea, Via Natural or Artificial Opening (ICD-10-PCS; 2020-08-25)
PROC: 5A1955Z Respiratory Ventilation, Greater than 96 Consecutive Hours (ICD-10-PCS; 2020-08-25)
PROC: 0W9B3ZZ Drainage of Left Pleural Cavity, Percutaneous Approach (ICD-10-PCS; 2020-09-01)
DX: T80.211A Bloodstream infection due to central venous catheter, initial encounter (principal); L89.154 Pressure ulcer of sacral region, stage 4; L89.624 Pressure ulcer of left heel, stage 4; L89.614 Pressure ulcer of right heel, stage 4; L89.894 Pressure ulcer of other site, stage 4; J69.0 Pneumonitis due to inhalation of food and vomit; J96.01 Acute respiratory failure with hypoxia; A41.9 Sepsis, unspecified organism; A41.89 Other specified sepsis; J15.6 Pneumonia due to other Gram-negative bacteria; J15.1 Pneumonia due to Pseudomonas; E43 Unspecified severe protein-calorie malnutrition; N39.0 Urinary tract infection, site not specified; G93.49 Other encephalopathy; E87.0 Hyperosmolality and hypernatremia; J90 Pleural effusion, not elsewhere classified; K94.23 Gastrostomy malfunction; I48.92 Unspecified atrial flutter; G93.40 Encephalopathy, unspecified; N17.9 Acute kidney failure, unspecified; K92.1 Melena; I13.10 Hypertensive heart and chronic kidney disease without heart failure, with stage 1 through stage 4 chronic kidney disease, or unspecified chronic kidney disease; N18.9 Chronic kidney disease, unspecified; Z86.73 Personal history of transient ischemic attack (TIA), and cerebral infarction without residual deficits; Z93.0 Tracheostomy status; D50.0 Iron deficiency anemia secondary to blood loss (chronic); Z86.718 Personal history of other venous thrombosis and embolism; Z86.711 Personal history of pulmonary embolism; R13.10 Dysphagia, unspecified; Z20.822 Contact with and (suspected) exposure to COVID-19; I48.0 Paroxysmal atrial fibrillation; G40.909 Epilepsy, unspecified, not intractable, without status epilepticus; E86.0 Dehydration; E86.1 Hypovolemia; Z68.29 Body mass index [BMI] 29.0-29.9, adult; E78.5 Hyperlipidemia, unspecified; K29.80 Duodenitis without bleeding; K29.60 Other gastritis without bleeding; K31.7 Polyp of stomach and duodenum
CPT/HCPCS: 36415; 36573; 71045; 76604; 76700; 76937; 76942; 80048; 80053; 80061; 80069; 80202; 81003; 82150; 82248; 82550; 82553; 82728; 82803; 82962; 83605; 83615; 83690; 83735; 83880; 84443; 84484; 85007; 85025; 85379; 85610; 85651; 85730; 86140; 86850; 86900; 86901; 86920; 87040; 87070; 87081; 87086; 87181; 87205; 87324; 93005; 94002; 94003; 94150; 94640; 95819; 96361; 96365; 96367; 99285; J2765; J3490; J7030; J7620; J8499; U0002